=== PATIENT | male | born 1940 | race Caucasian/White ===

== ENCOUNTER 2016-08-21 17:32 | Emergency (ER) | payer MEDICARE ==
[~2016-08-21] VITALS: Ht 177.8 cm; Wt 81.8 kg
[2016-08-21 17:38] VITALS: Ht 177.8 cm; Wt 81.8 kg
[2016-08-21] MEDS ORDERED: KETOROLAC 30 MG INJ IM STA (18:42)
[2016-08-21] MEDS ORDERED: TRAM50TA2 PO (18:44)
--- NOTE | 2016-08-21 18:51 | ERD ---
ER Documentation Chief Complaint Date/Time DATE: 08/21/16 TIME: 18:45 Chief Complaint BROUGHT IN VIA EMS DUE TO FALL THREE WEEKS AGO WITH DECREASED ROM HPI 76-year-old man brought in by EMS from dialysis center for having complaints of back pain and difficulty getting out of the dialysis chair at around closing time. Patient fell backwards about 2 weeks ago and suffered a nondisplaced fracture of 1 of the lumbar spine, diagnosis was made by CT scans and MRIs of the back 2 weeks ago. Patient is using [facility] his boarding care facility for pain control. Patient underwent his full dialysis today. Patient has complaints of back pain worse with movement, denies fevers or chills, denies paresis or paresthesias. ROS All systems reviewed and are negative except as per history of present illness. Medications Home Meds Active Scripts Tramadol HCl (Tramadol HCl) 50 Mg Tablet, 25 MG PO Q6 Y for PAIN, #20 TAB Prov:DULCE LANTIGUA MD 08/21/16 PMhx/Soc Hip replacement surgery bilaterally, lumbar spine surgery, recent lumbar spine fracture, chronic bilateral lower extremity paresis and mostly wheelchair-bound , end-stage kidney disease hemodialysis dependent, hypertension Hx Alcohol Use: No Hx Substance Use: No Hx Tobacco Use: No Smoking Status: Never smoker FmHx Family History: No diabetes Physical Exam Vitals Vital Signs Date Time Temp Pulse Resp B/P Pulse Ox O2 Delivery O2 Flow Rate FiO2 08/21/16 17:38 98.5 88 18 116/78 97 Physical Exam GENERAL: Well-developed, well-nourished, well-hydrated, in no apparent distress , looks nontoxic in appearance HEENT: Moist mucous membranes, pink conjunctiva, no cervical spine tenderness or step-off deformities, no goiter, no jaundice or icterus, extraocular movements intact without pain. No submandibular induration, and no pharyngeal erythema NEURO: Alert and oriented 3, cranial nerves II through XII intact bilaterally, pupils equal round reactive to light, no focal deficits or facial asymmetry, sensation intact distally bilateral lower extremity paresis consistent with history CARDIAC: Regular rate and rhythm, no murmurs rubs or gallops LUNGS: Clear bilaterally no wheezing crackles or stridor ABDOMEN: Soft nontender, no guarding, no rigidity, no rebound, no psoas sign no obturator sign. Normoactive bowel sounds SKIN: Warm and dry to touch, no abrasions, contusions, or hematomas, no lacerations, no ecchymosis, no target lesions, and without ulcers EXTREMITIES: No clubbing cyanosis or edema, calves are bilaterally symmetrical, no Homans sign, no popliteal cord sign. Distal pulses equal and bilateral, no midline back abrasions contusions or hematomas noted PSYCH: Normal affect without agitation or irritability Results 24 hrs Current Medications Medications (Trade) Dose Ordered Sig/Michael Route PRN Reason Start Time Stop Time Status Last Admin Dose Admin Ketorolac Tromethamine (Toradol) 30 mg ONCE STAT IM 08/21/16 18:42 08/21/16 18:43 DC Oxycodone/ Acetaminophen (Percocet (5/ 325)) 1 tab ONCE ONCE PO 08/21/16 19:00 08/21/16 19:01 Procedures/MDM I administered Toradol 30 mg intramuscular injection and Percocet 1 tablet p.o. Patient feels much better after analgesics were administered and I recommended he continue rehabilitation at his facility and continued follow-up with his PMD and orthopedic surgeon. I have no indication at this time for any further intervention, imaging, or analgesics. Differential diagnoses considered, included but not limited to acute coronary syndrome, pulmonary embolism, aortic dissection, abdominal aortic aneurysm, sepsis, stroke, meningitis, encephalitis, pneumonia, appendicitis, cholecystitis , bowel obstruction, pyelonephritis, nephrolithiasis, cystitis, as well as metabolic, hematologic, and electrolyte abnormalities. As well as abscess, cellulitis, fractures, and dislocations. Patient feels much better at this time, and vital signs are normal, symptoms have improved. I did give strict instructions to return to the ED if symptoms continue or worsen, patient will otherwise follow-up with primary care physician. Patient understood instructions and agreed to plan. Departure Diagnosis: Primary Impression: Acute exacerbation of chronic low back pain Additional Impression: End stage kidney disease Condition: Good Patient Instructions: Causes of Lumbar (Low Back) Pain, Back Pain (Acute Or Chronic) DULCE LANTIGUA MD Aug 21, 2016 18:51
[2016-08-21] MEDS ORDERED: OXYCODONE/ACETAMINOPHEN (5/325) TAB PO ONE (19:00)
[2016-08-21] MEDS ORDERED: LANT3I SC (19:27)
[2016-08-21] MEDS ORDERED: INSU100C SQ (19:30)
[2016-08-21] MEDS ORDERED: FOLI-49 PO (19:35)
[2016-08-21] MEDS ORDERED: ATOR20TA38 PO (19:35)
[2016-08-21] MEDS ORDERED: AMIT75TA2 PO (19:36)
[2016-08-21] MEDS ORDERED: LEVO50TA83 PO (19:37)
[2016-08-21] MEDS ORDERED: FURO40TA4 PO (19:40)
[2016-08-21] MEDS ORDERED: PROP40TA4 PO (19:40)
[2016-08-21 19:41] VITALS: BP 123/56; PULSE 87; RESP 20; TEMP 98.3
[2016-08-21] MEDS ORDERED: ASPI-664 PO (19:41)
== END 2016-08-21 20:06 | disposition home or self-care (01) ==
LOC: E/R 17:32
DX: M54.5 Low back pain (principal); I12.0 Hypertensive chronic kidney disease with stage 5 chronic kidney disease or end stage renal disease; N18.6 End stage renal disease; Z99.2 Dependence on renal dialysis; Z96.643 Presence of artificial hip joint, bilateral
CPT/HCPCS: 96372; 99284; J1885

== ENCOUNTER 2016-08-22 10:06 | Observation (INO) | payer MEDICARE ==
[~2016-08-22] VITALS: Ht 175.3 cm; Wt 81.0 kg
[~2016-08-22 10:06] MED LIST: AMIT75TA2 PO; ASPI-664 PO; ATOR20TA38 PO; FOLI-49 PO; FURO40TA4 PO; INSU100C SQ; LANT3I SC; LEVO50TA83 PO; PROP40TA4 PO; TRAM50TA2 PO
[2016-08-22] MEDS ORDERED: ONDANSETRON 4 MG INJ IV STA (10:16)
[2016-08-22] MEDS ORDERED: morphine 4 MG/ML VIAL IV STA (10:16)
[2016-08-22] MEDS ORDERED: PANTOPRAZOLE IV 80 MG in SOD CHLORIDE 0.9% 100 ML IVPB STA (10:16)
[2016-08-22] MEDS ORDERED: SOD CHLORIDE 0.9% 1,000 ML IV STA (10:16)
[2016-08-22 10:49] LABS: ADD SCAN DIFF NO
[2016-08-22 10:55] LABS: BASOPHIL # 0.2 10^3/ul (0.0-0.1); EOSINOPHILS # 0.9 10^3/ul (0.0-0.5); HEMATOCRIT 38.6 % (42.0-52.0); HEMOGLOBIN 12.5 g/dl (14.0-18.0); LYMPHOCYTES # 1.3 10^3/ul (0.8-2.9); LYMPHOCYTES % 7.1 % (15.0-51.0); MEAN CORPUSCULAR HGB CONC 32.4 g/dl (32.0-37.0); MEAN CORPUSCULAR VOLUME 104.9 fl (82.0-101.0); MEAN PLATELET VOLUME 12.2 fl (7.4-10.4); MONOCYTE # 1.2 10^3/ul (0.3-0.9); MONOCYTES % 6.8 % (0.0-11.0); NEUTROPHIL # 14.4 10^3/ul (1.6-7.5); NEUTROPHILS % 79.6 % (39.0-77.0); PLATELET COUNT 331 10^3/UL (140-415); RED BLOOD COUNT 3.68 10^6/ul (4.70-6.10); RED CELL DISTRIBUTION WIDTH 16.4 % (11.5-14.5); WHITE BLOOD COUNT 18.1 10^3/ul (4.8-10.8)
--- NOTE | 2016-08-22 11:29 | RADRPT ---
PROCEDURE: CT Abdomen and Pelvis without contrast. CLINICAL INDICATION: Abdominal and pelvic pain. Vomiting. TECHNIQUE: CT scan of the abdomen and pelvis without contrast was performed. Coronal and sagittal reformatted images were obtained from the axial source images. Images were reviewed on a high-resolu [employer] PACS workstation. Total exam DLP is 732.75 mGy-cm. CTDIvol is 12.03 mGy. One or more of the f ollowing dose reduction techniques were used: Automated exposure control, adjustment of the mA and/o r kV according to patient size, use of iterative reconstruction technique. COMPARISON: None. FINDINGS: There is a small right pleural effusion with fluid in the major fissure posteriorly. There is mild atelectasis at the right lung base. The lung bases are otherwise normal. There is no pericardial e ffusion. The heart size is normal. There is coronary artery calcification. The liver is normal in size and attenuation. There is no focal hepatic lesion. The gallbladder is surgically absent with clips noted in the gallbladder bed. The bile ducts are no rmal. The spleen is normal in size. There is no focal splenic lesion. Both adrenals are normal with no enlargement or mass. The pancreas is unremarkable with no mass or evidence of pancreatitis. There is no solid renal mass, hydronephrosis, or calculus. There is a benign cyst in the mid left k idney measuring 1.7 cm. There is no ureteral calculus on either side. The abdominal aorta is not dilated. There is calcification in the aorta consistent with atheroscler osis. There is no retroperitoneal lymphadenopathy or mass. There is no pelvic lymphadenopathy or mass. There is diffuse irregular bladder wall thickening. The bladder is otherwise unremarkable. The periappendiceal region is unremarkable with no evidence of appendicitis. The bowel and mesentery are normal. There is no free fluid or free gas. There are degenerative changes of the spine. There is a left hip total arthroplasty. There is no f racture or lytic lesion. IMPRESSION: 1. Small right pleural effusion with fluid in the major fissure posteriorly. 2. Right basilar atelectasis. 3. Coronary artery calcification. 4. Status post cholecystectomy. 5. Benign left renal cyst. 6. Atherosclerosis. 7. Diffuse irregular bladder wall thickening. Clinical correlation advised. Correlation with cyst oscopy should be considered. 8. Degenerative changes of the spine. 9. Left hip total arthroplasty. 10. Otherwise unremarkable study. RPTAT: QQ .Rachid Keith MD, MD Date Time Electronically viewed and signed by .Rachid Keith MD, MD on 08/22/2016 11:29 .R/
[2016-08-22 12:22] LABS: ALBUMIN 3.5 g/dl (3.3-4.9)
[2016-08-22 12:24] LABS: INR 1.03; PROTIME 13.5 Sec (12.2-14.2); PT RATIO 1.1
[2016-08-22 12:25] LABS: ALBUMIN/GLOBULIN RATIO 1.06; BILIRUBIN,INDIRECT 0.4 mg/dl (0-1.1); BILIRUBIN,TOTAL 0.4 mg/dl (0.2-1.3); CREATININE 6.74 mg/dl (0.61-1.24); PARTIAL THROMBOPLASTIN TIME 25.9 Sec (25.0-35.0); TOTAL PROTEIN 6.8 g/dl (6.1-8.1)
[2016-08-22 12:26] LABS: CALCIUM 8.6 mg/dl (8.4-10.2)
[2016-08-22 12:37] LABS: TROPONIN-I 0.013 ng/ml (0.00-0.12)
[2016-08-22] MEDS ORDERED: INSULIN LISPRO 100 UNIT/ML VIAL SC STA (12:52)
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
[2016-08-22] MEDS ORDERED: ACETAMINOPHEN 325 MG TAB PO PRN (13:30)
[2016-08-22] MEDS ORDERED: ONDANSETRON 4 MG INJ IV PRN (13:30)
[2016-08-22] MEDS ORDERED: GLUCOSE GEL 15 GRAM TUBE BUCCAL PRN (16:30)
[2016-08-22] MEDS ORDERED: GLUCOSE GEL 15 GRAM TUBE PO PRN ×2 (16:30)
[2016-08-22] MEDS ORDERED: traMADol 50 MG TAB PO PRN (16:30)
[2016-08-22] MEDS ORDERED: GLUCAGON 1 MG INJ IM PRN (16:30)
[2016-08-22] MEDS ORDERED: DEXTROSE 50% 50 ML SYRINGE IV PRN ×2 (16:30)
[2016-08-22 17:44] VITALS: TEMP 98.1
[2016-08-22] MEDS: INSULIN ASPART [NOVOLOG] 3 ML PEN SC SCH ×3 (18:05→20:51)
[2016-08-22 18:10] VITALS: BP 110/69; PULSE 96; RESP 18
--- NOTE | 2016-08-22 19:16 | CONS ---
DATE OF ADMISSION: 08/22/2016 DATE OF CONSULTATION: 08/22/2016 TYPE OF CONSULTATION: Nephrology. REFERRING PHYSICIAN: Dr. Perez. REASON FOR CONSULTATION: End-stage renal disease on hemodialysis, presented with hematemesis. HISTORY OF PRESENT ILLNESS: This is a 76-year-old male with a past medical history of hypertension, end-stage renal disease on hemodialysis, history of previous back surgery and right hip replacement . The patient was brought into the [facility] Emergency Room with a complaint of nausea, vomiting. The patient had dialysis done yesterday. He presented with a vomiting associated with some blood. He was brought in by ambulance. The patient came from [facility]. Code status is DO NOT RESUSCITATE. Regular schedule for dialysis is Sunday, Sunday, Sunday. Patient gets admitted to the med/surg floor where he is hemodynamically stable. Potassium has been 5, BUN 5 7, creatinine 6.47, and glucose has been in 200 to 300. Alkaline phosphatase was 463. The patient had stable blood pressure, with saturation around 98% on room air. Renal has been consulted for [facility] hemodialysis. REVIEW OF SYSTEMS: Positive for nausea, vomiting, and possible blood in vomiting. Other 12-point r eview of systems has been obtained and is negative except what is mentioned in the history of presen t illness. PAST MEDICAL HISTORY: Hypertension, end-stage renal disease on hemodialysis. PAST SURGICAL HISTORY: History of back surgery x2, partial hip replacement right side. SOCIAL HISTORY: No smoking, alcohol, or recreational drug use. Patient came from [facility]. FAMILY HISTORY: Not available. PHYSICAL EXAMINATION: VITAL SIGNS: Temperature 97.9, heart rate is 96, respiration 18, blood pressure 110/69, saturation is 94 to 99% room air. GENERAL: Awake, alert, in no acute distress. HEENT: Normal. Oropharynx clear. NECK: Supple, no JVD, no lymphadenopathy. LUNGS: Clear to auscultation. No crackles, no wheezes. HEART: S1, S2, rate regular, rhythm, no murmur. ABDOMEN: Soft, nontender, nondistended. Bowel sounds are present. EXTREMITIES: No clubbing, cyanosis, or edema. NEUROLOGICAL: Nonfocal, intact. PSYCHIATRIC: Appropriate affect and mood. LABORATORY DATA/DIAGNOSTIC IMAGING: Sodium 139, potassium 5, chloride 93, bicarbonate 29, BUN 57, c reatinine 6.7, glucose 353, calcium 8.6. LFTs are normal. ALT 75, AST 34, alkaline phosphatase 463 , total protein 6.8, albumin 3.5, globulin 3.3. Prothrombin time 13.5, PTT 25.9, INR 1.03. WBC 18. 1, hemoglobin 12.5, platelet count 331. CT abdomen and pelvis without contrast done in the emergency room shows a small right pleural effusi on, right basilar atelectasis, coronary artery calcification, status post cholecystectomy, benign le ft renal cyst, atherosclerosis, irregular bladder wall thickening, degenerative changes of the spine , left hip total arthroplasty, otherwise unremarkable study. IMPRESSION: This is a 76-year-old male who is getting admitted for hematemesis, and renal has been consulted for maintenance hemodialysis in chronic dialysis patient. 1. Hematemesis, possible upper gastrointestinal bleeding versus other etiology. 2. End-stage renal disease on hemodialysis Sunday, Sunday, Sunday. 3. History of hypertension. 4. History of a left hip hemiarthroplasty. 5. History of previous back surgery and hip replacement. 6. Coronary artery atherosclerosis. 7. Simple left benign renal cyst. PLAN: Thank you, Dr. Perez, for this consultation. The patient was seen in the emergency room. 1. He gets admitted to the med/surg floor. Patient's code status is DO NOT RESUSCITATE. 2. Protonix drip has been started for possible upper gastrointestinal bleeding. 4. The patient's electrolyte has been stable at this point. Potassium is 5. The patient is on [place] ix 40 mg p.o. daily. Other medications already done as per medical reconciliation. I will arrange the patient's hemodialysis to be done tomorrow morning. Patient is currently seen in the med/surg emergency room. He will be getting admitted to the med/surg floor. He is currently h emodynamically stable. Potassium is 5, so will continue to follow this patient along with his cours e in the hospital. Patient currently will be admitted to the med/surg floor. Dictated By: MIKEY DECKER MD, KP/REBECCA Conf#: [id number] DID#: [id number]
[2016-08-22 20:05] VITALS: BP 123/90; RESP 18
[2016-08-22] MEDS: INSULIN GLARGINE [LANtus] 3 ML PEN SC SCH ×2 (20:49→21:00)
--- NOTE | 2016-08-22 21:51 | HP ---
DATE OF ADMISSION: 08/22/2016 PRESENTING COMPLAINT: Hematemesis. HISTORY OF PRESENTING COMPLAINT: Mr. Buck is a 76-year-old male who [facility] who was sent to us because of complaints of vomiting blood. Symptoms were said to have started today. The patient is not able to give me much in the way of history. Review of his home medication does not reveal that he is on any blood thinner medicine. The patient seems to have a history of chronic alcohol abuse in the past, as on his lab values and just general assessment, but I am unable to confirm or deny this with the patient. At this time, ____ him. There have been no other vomiting episodes as far as I am aware in the hospital and hematemesis was all reported and has not been visualized while he is here. REVIEW OF SYSTEMS: I attempted a 12-point review of systems, but essentially my findings essentially as noted in the HPI. PAST MEDICAL HISTORY: Positive for: 1. Diabetes mellitus type 2. 2. End-stage renal disease on hemodialysis. 3. Hypothyroidism. 4. Depression. 5. Dyslipidemia. 6. Chronic anemia. 7. High blood pressure. 8. Probable chronic liver disease with probable portal hypertension based on patient's medications, which might be alcohol related. PAST SURGICAL HISTORY: Per chart, is positive for cholecystectomy and left hip replacement as well as back surgery x2. ALLERGIES: THE PATIENT IS ALLERGIC TO HYDROMORPHONE. FAMILY HISTORY: Unobtainable. REVIEW OF SYSTEMS: As I mentioned above. HOME MEDICATIONS: 1. Aspirin. 2. Lasix. 3. Propranolol. 4. Levothyroxine. 5. Amitriptyline. 6. Atorvastatin. 7. Folic acid. 8. Lantus. 9. Timolol. PHYSICAL EXAMINATION: VITAL SIGNS: Temperature 97.9, pulse 90, respirations 16, blood pressure 134/72 , saturations 98% on room air. GENERAL: The patient is alert. Orientation is questionable. Knows his name and knows his birthday. HEENT: Head normocephalic. Mouth mild jaundice. Mucous membranes slightly dry. Posterior pharynx negative for exudate. NECK: Supple. CHEST: Clear to auscultation with reduced breath sounds. CARDIOVASCULAR: Heart sounds 1 and 2. Probable II/ systolic murmur. ABDOMEN: Soft, nontender. Normoactive bowel sounds. LOWER EXTREMITIES: Negative for edema. NEUROLOGIC: Without focal gross deficit. SKIN: Negative for rash or jaundice. LABORATORY DATA: He has a leukocytosis of 18,000. His hemoglobin is low, but stable, at 12.5 and platelet count normal. He does have a neutrophilia of 79% and he has macrocytosis with hypochromasia. On his chemistry, BUN and creatinine are elevated consistent with his history of endstage renal disease on hemodialysis. His blood sugar level is 353, suggesting of uncontrolled diabetes. His chloride level is mildly elevated at 93. ALT 79, which more than double. AST which 34, and his alkaline phosphatase is 463. IMAGING: He had an EKG that was concerning for a second degree AV block with a rate of 85 and a prolonged QTC of 580. A CT of the abdomen and pelvis that showed a small right pleural effusion with fluid in the middle fissure posteriorly. Right basal atelectasis. Benign left renal cyst. Atherosclerosis. Irregular bladder wall thickening, degenerative changes of the spine , and left hip total arthroplasty. IMPRESSION: A 76-year-old male [facility] because of Hematemesis managed as follows: 1. Hematemesis. 2. Reactive leukocytosis. 3. Chronic anemia or anemia of chronic kidney disease superimposed on probable mild blood loss. 4. Uncontrolled diabetes mellitus. 5. Rule out a right-sided basal pneumonia based on CT findings. 6. High pressure with good control. 7. Dyslipidemia 8. Endstage renal disease on hemodialysis. 9. Hypothyroidism. 10. Chronic depression. 11. Do not resuscitate. 12. Probable history of alcoholism with evidence of probable mild chronic liver disease as well as on propranolol PLAN: At this point is to admit patient for GI evaluation and review. The patient will be kept n.p.o. except for medications only. I see no current indication for blood transfusion at this point. The patient will be closely monitored for that. I will obtain blood cultures because of his leukocytosis, but no antibiotic therapy is indicated at this time. Nephrology consultation will be obtained because of the patient for inhouse dialysis and will be started sliding scale Insulin. Also Continue him on his home Lantus when on a diet, monitor blood sugar control and titrate his regimen as indicated. For prophylaxis, he will be on SCDs as well as intravenous PPI. Further interventions will depend on his clinical findings. Admission time was more than 50 minutes. I will speak with nephrology as well as gastroenterology doctors and follow their recommendations. Dictated By: ADELINE VIVAR MD BA/NTS Conf#: [id number] DID#: [id number] CC: MARCOS KIM MD;*EndCC* MTDD
[2016-08-22] MEDS: AMITRIPTYLINE 25 MG TAB PO SCH (22:11)
[2016-08-22 22:48] VITALS: Ht 175.3 cm; Wt 81.0 kg
[2016-08-23] VITALS (17 sets, daily range): BP systolic 69–144; BP diastolic 44–67; PULSE 73–106; RESP 16–22
[2016-08-23] MEDS: LEVOTHYROXINE 50 MCG TAB PO SCH (06:31)
[2016-08-23] MEDS: INSULIN ASPART [NOVOLOG] 3 ML PEN SC SCH ×4 (07:40→22:00)
[2016-08-23] MEDS: FOLIC ACID 1 MG TAB PO SCH (08:26)
[2016-08-23] MEDS: ASPIRIN (EC) 81 MG TAB PO SCH (08:27)
[2016-08-23] MEDS: FUROSEMIDE 40 MG TAB PO SCH (08:27)
[2016-08-23 09:33] LABS: ADD SCAN DIFF NO
[2016-08-23 09:55] LABS: INR 1.03; PROTIME 13.5 Sec (12.2-14.2); PT RATIO 1.1
[2016-08-23 09:56] LABS: PARTIAL THROMBOPLASTIN TIME 36.6 Sec (25.0-35.0)
[2016-08-23 09:57] LABS: ALBUMIN 3.2 g/dl (3.3-4.9); CHLORIDE 91 mmol/L (97-110); SODIUM 134 mmol/L (135-144)
[2016-08-23 09:58] LABS: POTASSIUM 5.5 mmol/L (3.5-5.1)
[2016-08-23 10:00] LABS: ALANINE AMINOTRANSFERASE 58 IU/L (13-69); ALBUMIN/GLOBULIN RATIO 1.03; ALKALINE PHOSPHATASE 384 IU/L (42-121); ANION GAP 21 (8-16); ASPARTATE AMINO TRANSFERASE 30 IU/L (15-46); BILIRUBIN,INDIRECT 0.2 mg/dl (0-1.1); BILIRUBIN,TOTAL 0.2 mg/dl (0.2-1.3); BLOOD UREA NITROGEN 66 mg/dl (7-20); CALCIUM 8.3 mg/dl (8.4-10.2); CARBON DIOXIDE 28 mmol/L (21-31); CREATININE 8.22 mg/dl (0.61-1.24); GLUCOSE 269 mg/dl (70-220); TOTAL PROTEIN 6.3 g/dl (6.1-8.1)
[2016-08-23 10:01] LABS: MAGNESIUM 1.8 mg/dl (1.7-2.5)
[2016-08-23 10:02] LABS: IRON 32 ug/dl (35-150)
[2016-08-23 10:12] LABS: ABNORMAL IP MESSAGE 1; BASOPHIL # 0.1 10^3/ul (0.0-0.1); BASOPHILS % 0.5 % (0.0-2.0); EOSINOPHILS # 1.4 10^3/ul (0.0-0.5); EOSINOPHILS % 6.2 % (0.0-7.0); HEMATOCRIT 32.7 % (42.0-52.0); HEMOGLOBIN 10.3 g/dl (14.0-18.0); LYMPHOCYTES # 1.9 10^3/ul (0.8-2.9); LYMPHOCYTES % 8.2 % (15.0-51.0); MEAN CORPUSCULAR HEMOGLOBIN 33.6 pg (29.0-33.0); MEAN CORPUSCULAR HGB CONC 31.5 g/dl (32.0-37.0); MEAN CORPUSCULAR VOLUME 106.5 fl (82.0-101.0); MEAN PLATELET VOLUME 11.7 fl (7.4-10.4); MONOCYTE # 1.7 10^3/ul (0.3-0.9); MONOCYTES % 7.4 % (0.0-11.0); NEUTROPHIL # 17.5 10^3/ul (1.6-7.5); NEUTROPHILS % 77.2 % (39.0-77.0); PLATELET COUNT 267 10^3/UL (140-415); RED BLOOD COUNT 3.07 10^6/ul (4.70-6.10); RED CELL DISTRIBUTION WIDTH 16.3 % (11.5-14.5); TOTAL IRON BINDING CAPACITY 226 ug/dl (241-421); WHITE BLOOD COUNT 22.7 10^3/ul (4.8-10.8)
[2016-08-23 11:26] LABS: CHOLESTEROL 86 mg/dl (100-200)
[2016-08-23 11:27] LABS: CHOL/HDL RATIO 3.1 RATIO; HDL CHOLESTEROL 27 mg/dl (31-75); TRIGLYCERIDES 151 mg/dl (0-149)
--- NOTE | 2016-08-23 11:27 | RADRPT ---
Echocardiogram Report Patient Name: ARTHUR LIMA Gender: Male Date: 1940 Study Date: 23-Aug-2016 Concierge Receptionist: JIMENEZ [facility] Location: 2260 Ref. Physician: ADELINE VIVAR Quality: Technically Difficult Study Procedures: Transthoracic echocardiogram with complete 2D, M-Mode, and doppler examination. Indications: Prolonged QT. 2D/M Mode Doppler Measurement Value Normal Ranges Measurement Value Normal Ranges LVIDd 2D 4.1 3.5 - 5.6 cm AV Peak Deyvi 1.0 m/sec LVIDs 2D 3.4 2.1 - 4.1 cm AV Peak PG 4.3 mmHg LVPWd 2D 1.3 0.6 - 1.1 cm LVOT Peak Deyiv 0.7 m/sec IVSd 2D 1.4 0.6 - 1.1 cm LVOT Peak PG 1.8 mmHg AoR Diam 2D 2.5 2.0 - 3.7 cm MV E Peak Deyvi 1.0 m/sec EDV 2D 75.6 cm3 MV A Peak Deyvi 0.5 m/sec ESV 2D 37.6 cm3 MV E/A 2.2 MV Decel Time 99 msec MV Decel [place] 10 MV E/A 2.2 Findings Left Ventricle: Normal left ventricular systolic function. Normal left ventricular cavity size. Mild concentric left ventricular hypertrophy. Ejection fraction is visually estimated at 60 %. Right Ventricle: Not well visualized. Left Atrium: The left atrium is normal in size. Right Atrium: Not well visualized. Mitral Valve: Mild mitral leaflet calcification. Mild mitral annular calcification. Trace mitral regurgitation. Aortic Valve: Aortic sclerosis without stenosis. Tricuspid Valve: Tricuspid valve not well visualized. Unable to obtain RVSP due to minimal presence of tricuspid regurgitation. There is trace tricuspid regurgitation. Pericardium: Normal pericardium with no significant pericardial effusion. Aorta: Normal aortic root. IVC: Normal size and normal respiratory collapse consistent with normal right atrial pressure. Conclusions 1.Technically difficult study with poor acoustic windows and poor endocardial visualization. 2.Normal left ventricular systolic function. Normal left ventricular cavity size. Mild concentric left ventricular hypertrophy. Ejection fraction is visually estimated at 60 %. 3.No significant valvular stenosis or regurgitation seen. 4.Unable to obtain RVSP due to minimal presence of tricuspid regurgitation. RA pressure is 3 mmHg. Electronically Signed By: Lorenzo Murray 23-Aug-2016 11:26:43 -0800 Patient Name: ARTHUR LIMA Study Date: 23-Aug-[id number]
[2016-08-23 11:59] LABS: THYROID STIMULATING HORMONE 0.927 MIU/L (0.465-4.680)
[2016-08-23 12:39] LABS: FOLATE > 20.0 ng/ml (2.8-20.0)
[2016-08-23] MEDS: CEFTRIAXONE 1 GM/50 ML (PMX) 50 ML IVPB SCH (15:42)
--- NOTE | 2016-08-23 16:07 | RADRPT ---
PROCEDURE: XR Chest AP portable CLINICAL INDICATION: Possible pneumonia TECHNIQUE: An AP portable radiograph of the chest was submitted. COMPARISON: None. FINDINGS: Support Hardware: None Cardiovascular: The cardiovascular silhouette appears unremarkable except for atherosclerotic change involving the aorta. Lung Burroughs: Discoid atelectasis is seen at the right lung base. Pleural Spaces: There is slight soft tissue density seen along the right inferior lateral chest wall that could represent pleural thickening or possibly loculated pleural fluid accumulation. No pneum othorax is evident. Osseous Structures: Degenerative spine changes are noted along with degenerative change seen about t he left glenohumeral joint. Soft Tissues: The soft tissues appear unremarkable. IMPRESSION: 1. Atherosclerotic aorta 2. Discoid atelectasis seen at the right lung base with either mild right inferolateral pleural thi ckening or loculated fluid. 3. Degenerative osseous changes. Physician Flori Date Time Electronically viewed and signed by Physician Flori on 08/23/2016 16:06 /
[2016-08-23] MEDS ORDERED: INSULIN GLARGINE [LANtus] 3 ML PEN SC ONE (17:00)
[2016-08-23] MEDS ORDERED: PROPOFOL 20 ML ONE (18:46)
[2016-08-23] MEDS ORDERED: MIDAZOLAM 1 MG/ML 2 ML INJ IV PRN (19:30)
[2016-08-23] MEDS ORDERED: FENTAnyl 50 MCG/ML VIAL IV PRN (19:30)
[2016-08-23] MEDS ORDERED: MEPERIDINE 25 MG INJ IV PRN (19:30)
[2016-08-23] MEDS ORDERED: METOCLOPRAMIDE 10 MG INJ IV PRN (19:30)
[2016-08-23] MEDS ORDERED: DIPHENHYDRAMINE 50 MG INJ IV PRN (19:30)
[2016-08-23] MEDS ORDERED: ONDANSETRON 4 MG INJ IV PRN (19:30)
--- NOTE | 2016-08-23 20:44 | GILP ---
DATE OF PROCEDURE: NAME OF PROCEDURE: Esophagogastroduodenoscopy with biopsies. SURGEON: Gabriel Cruz MD. HISTORY AND INDICATIONS: The patient is being evaluated for hematemesis. PREMEDICATION: Monitored anesthesia care by anesthesiologist. INSTRUMENT USED: Olympus panendoscope. TECHNIQUE: After informed consent, with the patient/relatives understanding the procedure, its indic ations, potential risks, and complications, including but not limited to: allergic reaction, bleedin g, perforation or infection, and after all pertinent questions were answered to the patient's satisf action, the patient/relatives signed witnessed informed consent. Following this, premedication was administered slowly IV push under careful cardiovascular and respi ratory monitoring with pulse oximetry, automatic blood pressure and phototypesetting equipment monitor. Once the sedative effect was achieved the patient was place in the left lateral decubitus, the panen doscope was introduced and advanced under visual control. Careful examination of the upper gastrointestinal tract, both on insertion as well as withdrawal of the instrument disclosed the following findings: ESOPHAGUS: The entire esophagus shows significant ulceration. There appears to be a whitish exudate suggestive of or raising the possibility of Juanita infection. Biopsies were obtained in limited fashion. STOMACH: Upon entrance to the stomach, air was insufflated, the gastric garza distended normally. T here is erythema and edema of the mucosa of a moderate degree. Biopsies were obtained to rule out H . pylori infection. PYLORUS: The pylorus appears patent and within normal limits, with no evidence of gastric outlet ob struction. DUODENUM: The duodenal bulb shows significant erythema and edema of the mucosa. The second portion of the duodenum was unremarkable. The instrument was then withdrawn, the patient tolerated the procedure well and was transfer out of the endoscopy suite awake, and in good condition to continue recovery under observation IMPRESSION: 1. Severe ulcerated esophagitis. 2. Rule out Juanita esophagitis. Biopsies obtained. 3. Gastritis, moderate. Rule out Helicobacter pylori infection, biopsies obtained. 4. Severe duodenitis. PLAN: 1. The patient will be treated with PPI b.i.d. 2. Carafate liquid q.i.d. 3. Diflucan 100 mg daily x5 days. 4. Pathology will be reviewed as soon as available. 5. Further recommendation will depend on patient's clinical course as well as review of biopsies. Dictated By: GABRIEL CRUZ MS/REBECCA Conf#: [id number] DID#: [id number] CC: MARCOS KIM MD; GABRIEL CRUZ;*[facility]*
[2016-08-23] MEDS ORDERED: INSULIN GLARGINE [LANtus] 3 ML PEN SC SCH (21:00)
--- NOTE | 2016-08-23 21:13 | CONS ---
Date/Time of Note Date/Time of Note DATE: 08/23/16 TIME: 21:11 Assessment/Plan Assessment/Plan Additional Assessment/Plan 1. Hematemesis, possible upper gastrointestinal bleeding versus other etiology. 2. End-stage renal disease on hemodialysis Sunday, Sunday, Sunday. 3. History of hypertension. 4. History of a left hip hemiarthroplasty. 5. History of previous back surgery and hip replacement. 6. Coronary artery atherosclerosis. 7. Simple left benign renal cyst. PLAN: S/p HD today BP stable now EGD per GI today will continue HD sunday ,sunday and Sunday Consultation Date/Type/Reason Admit Date/Time Aug 22, 2016 at 14:11 Initial Consult Date August Type of Consultation: NEPHROLOGY Reason for Consultation ESRD on HD with hematemesis Referring Provider: ADELINE VIVAR 24 HR Interval Summary Free Text/Dictation S/p HD today AM Exam/Review of Systems Vital Signs Vitals Vital Signs Date Time Temp Pulse Resp B/P Pulse Ox O2 Delivery O2 Flow Rate FiO2 08/23/16 20:24 96 21 98/54 95 Room Air 08/23/16 19:44 97.6 Intake and Output 08/22/16 08/22/16 08/23/16 14:59 22:59 06:59 Intake Total 1100 ml 300 ml Balance 1100 ml 300 ml Exam GENERAL: Awake, alert, in no acute distress. HEENT: Normal. Oropharynx clear. NECK: Supple, no JVD, no lymphadenopathy. LUNGS: Clear to auscultation. No crackles, no wheezes. HEART: S1, S2, rate regular, rhythm, no murmur. ABDOMEN: Soft, nontender, nondistended. Bowel sounds are present. EXTREMITIES: No clubbing, cyanosis, or edema. NEUROLOGICAL: Nonfocal, intact. PSYCHIATRIC: Appropriate affect and mood. Results Result Diagram: 08/23/16 0640 08/23/16 0640 Results 24 hrs Laboratory Tests Test 08/23/16 02:26 08/23/16 02:46 08/23/16 03:06 08/23/16 03:19 Bedside Glucose 60 L 79 100 135 Test 08/23/16 05:05 08/23/16 06:40 08/23/16 07:20 08/23/16 11:46 Hemoglobin A1c 7.5 H Activated Partial Thromboplast Time 36.6 H Alanine Aminotransferase (ALT/SGPT) 58 Albumin 3.2 L Albumin/Globulin Ratio 1.03 Alkaline Phosphatase 384 H Anion Gap 21 H Aspartate Amino Transf (AST/SGOT) 30 Basophils # 0.1 Basophils % 0.5 Blood Urea Nitrogen 66 H Calcium Level 8.3 L Carbon Dioxide Level 28 Chloride Level 91 L Cholesterol Level 86 L Cholesterol/HDL Ratio 3.1 Creatinine 8.22 H Direct Bilirubin 0.00 Eosinophils # 1.4 H Eosinophils % 6.2 Folate > 20.0 H Globulin 3.10 Glucose Level 269 H HDL Cholesterol 27 L Hematocrit 32.7 L Hemoglobin 10.3 L INR International Normalized Ratio 1.03 Indirect Bilirubin 0.2 Iron Level 32 L LDL Cholesterol, Calculated 29 Lymphocytes # 1.9 Lymphocytes % 8.2 L Magnesium Level 1.8 Mean Corpuscular Hemoglobin 33.6 H Mean Corpuscular Hemoglobin Concent 31.5 L Mean Corpuscular Volume 106.5 H Mean Platelet Volume 11.7 H Monocytes # 1.7 H Monocytes % 7.4 Neutrophils # 17.5 H Neutrophils % 77.2 H Nucleated Red Blood Cells # 0.0 Nucleated Red Blood Cells % 0.0 Percent Iron Saturation 14 L Platelet Count 267 Potassium Level 5.5 H Prothrombin Time 13.5 Prothrombin Time Ratio 1.1 Red Blood Count 3.07 L Red Cell Distribution Width 16.3 H Sodium Level 134 L Thyroid Stimulating Hormone (TSH) 0.927 Total Bilirubin 0.2 Total Iron Binding Capacity 226 L Total Protein 6.3 Triglycerides Level 151 H Vitamin B12 Level > 1000 H White Blood Count 22.7 #H Bedside Glucose 258 H 425 *H Test 08/23/16 13:56 08/23/16 16:31 08/23/16 17:34 08/23/16 17:36 Bedside Glucose 376 H 378 H 390 H 369 H Test 08/23/16 18:52 Bedside Glucose 335 H Medications Medications Current Medications Amitriptyline HCl (Elavil) 75 mg QHS PO Last administered on 08/22/16t 22:11; Admin Dose 75 MG; Start 08/22/16 at 21:00 Aspirin (Halfprin) 81 mg DAILY PO ; Start 08/23/16 at 09:00 Folic Acid (Folic Acid) 1 mg DAILY PO ; Start 08/23/16 at 09:00 Furosemide (Lasix) 40 mg DAILY PO ; Start 08/23/16 at 09:00 Tramadol HCl (Ultram) 25 mg Q6H PRN PO PAIN; Start 08/22/16 at 16:30 Miscellaneous Information 1 ea NOTE XX ; Start 08/22/16 at 16:30 Glucose (Glutose) 15 gm Q15M PRN PO DECREASED GLUCOSE; Start 08/22/16 at 16:30 Glucose (Glutose) 22.5 gm Q15M PRN PO DECREASED GLUCOSE; Start 08/22/16 at 16:30 Dextrose (D50w Syringe) 25 ml Q15M PRN IV DECREASED GLUCOSE; Start 08/22/16 at 16:30 Dextrose (D50w Syringe) 50 ml Q15M PRN IV DECREASED GLUCOSE; Start 08/22/16 at 16:30 Glucagon (Glucagen) 1 mg Q15M PRN IM DECREASED GLUCOSE; Start 08/22/16 at 16:30 Glucose 15 gm 15 gm Q15M PRN BUCCAL DECREASED GLUCOSE; Start 08/22/16 at 16:30 Ceftriaxone Sodium (Rocephin) 50 ml @ 100 mls/hr Q24H IVPB Last administered on 08/23/16t 15:42; Admin Dose 100 MLS/HR; Start 08/23/16 at 15:00 Insulin Glargine (Lantus) 50 unit QHS SC ; Start 08/23/16 at 21:00 Pantoprazole (Protonix Iv) 40 mg BID@06,18 IV ; Start 08/23/16 at 20:00 Fluconazole (Diflucan) 100 mg DAILY PO ; Start 08/23/16 at 20:00; Stop 08/27/16 at 09:01 MIKEY DECKER MD Aug 23, 2016 21:13
[2016-08-23] MEDS: PANTOPRAZOLE 40 MG INJ IV SCH (21:57)
[2016-08-23] MEDS: FLUCONAZOLE 100 MG TAB PO SCH (21:58)
[2016-08-23] MEDS: SUCRALFATE (100 MG/ML) 10ML CUP PO SCH (21:58)
[2016-08-23] MEDS: AMITRIPTYLINE 25 MG TAB PO SCH (21:58)
[2016-08-24 05:06] LABS: ADD SCAN DIFF NO
[2016-08-24 05:24] LABS: BASOPHIL # 0.1 10^3/ul (0.0-0.1); BASOPHILS % 0.5 % (0.0-2.0); EOSINOPHILS % 6.4 % (0.0-7.0); HEMATOCRIT 31.5 % (42.0-52.0); HEMOGLOBIN 9.8 g/dl (14.0-18.0); LYMPHOCYTES # 1.7 10^3/ul (0.8-2.9); MEAN CORPUSCULAR HEMOGLOBIN 33.4 pg (29.0-33.0); MEAN CORPUSCULAR HGB CONC 31.1 g/dl (32.0-37.0); MEAN CORPUSCULAR VOLUME 107.5 fl (82.0-101.0); MEAN PLATELET VOLUME 11.6 fl (7.4-10.4); MONOCYTE # 1.4 10^3/ul (0.3-0.9); MONOCYTES % 8.9 % (0.0-11.0); NEUTROPHIL # 11.1 10^3/ul (1.6-7.5); NEUTROPHILS % 72.7 % (39.0-77.0); PLATELET COUNT 251 10^3/UL (140-415); RED BLOOD COUNT 2.93 10^6/ul (4.70-6.10); RED CELL DISTRIBUTION WIDTH 16.1 % (11.5-14.5); WHITE BLOOD COUNT 15.2 10^3/ul (4.8-10.8)
[2016-08-24 05:30] LABS: ALBUMIN 3.3 g/dl (3.3-4.9); POTASSIUM 4.4 mmol/L (3.5-5.1)
[2016-08-24 05:32] LABS: BILIRUBIN,INDIRECT 0.1 mg/dl (0-1.1); BILIRUBIN,TOTAL 0.1 mg/dl (0.2-1.3); CREATININE 8.31 mg/dl (0.61-1.24)
[2016-08-24 05:33] LABS: CALCIUM 8.4 mg/dl (8.4-10.2); TOTAL PROTEIN 6.6 g/dl (6.1-8.1)
[2016-08-24] MEDS: PANTOPRAZOLE 40 MG INJ IV SCH ×2 (05:38→17:40)
[2016-08-24] MEDS: SUCRALFATE (100 MG/ML) 10ML CUP PO SCH ×3 (06:38→17:40)
[2016-08-24] MEDS: LEVOTHYROXINE 50 MCG TAB PO SCH (06:38)
[2016-08-24 07:48] VITALS: BP 136/70; RESP 18
[2016-08-24] MEDS: FUROSEMIDE 40 MG TAB PO SCH (08:56)
[2016-08-24] MEDS: FOLIC ACID 1 MG TAB PO SCH (08:56)
[2016-08-24] MEDS: FLUCONAZOLE 100 MG TAB PO SCH (08:56)
[2016-08-24] MEDS: ASPIRIN (EC) 81 MG TAB PO SCH (08:56)
[2016-08-24] MEDS: INSULIN ASPART [NOVOLOG] 3 ML PEN SC SCH ×3 (08:58→17:41)
--- NOTE | 2016-08-24 11:18 | CONS ---
Date/Time of Note Date/Time of Note DATE: 08/24/16 TIME: 11:16 Assessment/Plan Assessment/Plan Additional Assessment/Plan 1. Hematemesis, possible upper gastrointestinal bleeding versus other etiology. 2. End-stage renal disease on hemodialysis Sunday, Sunday, Sunday. 3. History of hypertension. 4. History of a left hip hemiarthroplasty. 5. History of previous back surgery and hip replacement. 6. Coronary artery atherosclerosis. 7. Simple left benign renal cyst. PLAN: HD ordered for tomorrow BP stable now s/p EGD showed Severe ulcerated esophagitis. will continue HD sunday ,sunday and Sunday Consultation Date/Type/Reason Admit Date/Time Aug 22, 2016 at 13:10 Initial Consult Date August Type of Consultation: NEPHROLOGY Reason for Consultation ESRD on HD with hematemesis Referring Provider: ADELINE VIVAR 24 HR Interval Summary Free Text/Dictation No acute, S/p EGD, plan for HD tomorrow Exam/Review of Systems Vital Signs Vitals Vital Signs Date Time Temp Pulse Resp B/P Pulse Ox O2 Delivery O2 Flow Rate FiO2 08/24/16 07:48 97.9 97 18 136/70 92 08/23/16 20:24 Room Air Intake and Output 08/23/16 08/23/16 08/24/16 15:00 23:00 07:00 Intake Total 700 ml 200 ml 180 ml Output Total 2400 ml Balance -1700 ml 200 ml 180 ml Exam GENERAL: Awake, alert, in no acute distress. HEENT: Normal. Oropharynx clear. NECK: Supple, no JVD, no lymphadenopathy. LUNGS: Clear to auscultation. No crackles, no wheezes. HEART: S1, S2, rate regular, rhythm, no murmur. ABDOMEN: Soft, nontender, nondistended. Bowel sounds are present. EXTREMITIES: No clubbing, cyanosis, or edema. NEUROLOGICAL: Nonfocal, intact. PSYCHIATRIC: Appropriate affect and mood. Results Result Diagram: 08/24/16 0451 08/24/16 0451 Results 24 hrs Laboratory Tests Test 08/23/16 11:46 08/23/16 13:56 08/23/16 16:31 08/23/16 17:34 Bedside Glucose 425 *H 376 H 378 H 390 H Test 08/23/16 17:36 08/23/16 18:52 08/23/16 21:42 08/24/16 01:06 Bedside Glucose 369 H 335 H 225 H 193 Test 08/24/16 02:40 08/24/16 04:51 08/24/16 07:40 Bedside Glucose 177 161 Alanine Aminotransferase (ALT/SGPT) 51 Albumin 3.3 Albumin/Globulin Ratio 1.00 Alkaline Phosphatase 366 H Anion Gap 17 H Aspartate Amino Transf (AST/SGOT) 19 Basophils # 0.1 Basophils % 0.5 Blood Urea Nitrogen 63 H Calcium Level 8.4 Carbon Dioxide Level 32 H Chloride Level 94 L Creatinine 8.31 H Direct Bilirubin 0.00 Eosinophils # 1.0 H Eosinophils % 6.4 Globulin 3.30 H Glucose Level 166 # Hematocrit 31.5 L Hemoglobin 9.8 L Indirect Bilirubin 0.1 Lymphocytes # 1.7 Lymphocytes % 11.0 L Mean Corpuscular Hemoglobin 33.4 H Mean Corpuscular Hemoglobin Concent 31.1 L Mean Corpuscular Volume 107.5 H Mean Platelet Volume 11.6 H Monocytes # 1.4 H Monocytes % 8.9 Neutrophils # 11.1 H Neutrophils % 72.7 Nucleated Red Blood Cells # 0.0 Nucleated Red Blood Cells % 0.0 Platelet Count 251 Potassium Level 4.4 Red Blood Count 2.93 L Red Cell Distribution Width 16.1 H Sodium Level 139 Total Bilirubin 0.1 L Total Protein 6.6 White Blood Count 15.2 #H Medications Medications Current Medications Amitriptyline HCl (Elavil) 75 mg QHS PO Last administered on 08/23/16 21:58; Admin Dose 75 MG; Start 08/22/16 at 21:00 Aspirin (Halfprin) 81 mg DAILY PO Last administered on 08/24/16 08:56; Admin Dose 81 MG; Start 08/23/16 at 09:00 Folic Acid (Folic Acid) 1 mg DAILY PO Last administered on 08/24/16 08:56; Admin Dose 1 MG; Start 08/23/16 at 09:00 Furosemide (Lasix) 40 mg DAILY PO Last administered on 08/24/16 08:56; Admin Dose 40 MG; Start 08/23/16 at 09:00 Tramadol HCl (Ultram) 25 mg Q6H PRN PO PAIN; Start 08/22/16 at 16:30 Miscellaneous Information 1 ea NOTE XX ; Start 08/22/16 at 16:30 Glucose (Glutose) 15 gm Q15M PRN PO DECREASED GLUCOSE; Start 08/22/16 at 16:30 Glucose (Glutose) 22.5 gm Q15M PRN PO DECREASED GLUCOSE; Start 08/22/16 at 16:30 Dextrose (D50w Syringe) 25 ml Q15M PRN IV DECREASED GLUCOSE; Start 08/22/16 at 16:30 Dextrose (D50w Syringe) 50 ml Q15M PRN IV DECREASED GLUCOSE; Start 08/22/16 at 16:30 Glucagon (Glucagen) 1 mg Q15M PRN IM DECREASED GLUCOSE; Start 08/22/16 at 16:30 Glucose 15 gm 15 gm Q15M PRN BUCCAL DECREASED GLUCOSE; Start 08/22/16 at 16:30 Ceftriaxone Sodium (Rocephin) 50 ml @ 100 mls/hr Q24H IVPB Last administered on 08/23/16 15:42; Admin Dose 100 MLS/HR; Start 08/23/16 at 15:00 Insulin Glargine (Lantus) 50 unit QHS SC Last administered on 08/23/16 21:59; Admin Dose 50 UNIT; Start 08/23/16 at 21:00 Pantoprazole (Protonix Iv) 40 mg BID@06,18 IV Last administered on 08/24/16 05: 38; Admin Dose 40 MG; Start 08/23/16 at 20:00 Fluconazole (Diflucan) 100 mg DAILY PO Last administered on 08/24/16 08:56; Admin Dose 100 MG; Start 08/23/16 at 20:00; Stop 08/27/16 at 09:01 MIKEY DECKER MD Aug 24, 2016 11:17
[2016-08-24 13:11] LABS: ADD UMIC YES; URINE BILIRUBIN (Dip) 1+ (NEGATIVE); URINE BLOOD (Dip) TRACE (NEGATIVE); URINE COLOR YELLOW (YELLOW); URINE KETONES (Dip) TRACE (NEGATIVE); URINE LEUKOCYTE ESTERASE (Dip) TRACE (NEGATIVE); URINE NITRITE (Dip) NEGATIVE (NEGATIVE); URINE TOTAL PROTEIN (Dip) 2+ (NEGATIVE); URINE UROBILINOGEN (Dip) 0.2 E.U./dL (0.1-1.0)
[2016-08-24 13:24] LABS: BACTERIA,URINE MANY
[2016-08-24 13:25] LABS: ICTOTEST NEGATIVE (NEGATIVE)
[2016-08-24] MEDS: CEFTRIAXONE 1 GM/50 ML (PMX) 50 ML IVPB SCH (15:30)
--- NOTE | 2016-08-24 15:38 | PN ---
Date/Time of Note Date/Time of Note DATE: 08/24/16 TIME: 15:34 Assessment/Plan VTE Prophylaxis VTE Prophylaxis Intervention: SCD's Lines/Catheters IV [facility]ter Type [facility]from [facility] Urinary Cath still in place: No Assessment/Plan Assessment/Plan 1. Hematemesis. EGD per Dr. Cruz today 2. Reactive leukocytosis. check UA 3. Chronic anemia or anemia of chronic kidney disease superimposed on probable mild blood loss. 4. Uncontrolled diabetes mellitus. adjust insulins 5. Probable history of alcoholism with evidence of probable mild chronic liver disease as well as on propranolol 6. High pressure with good control. 7. Dyslipidemia 8. Endstage renal disease on hemodialysis. 9. Hypothyroidism. 10. Chronic depression. 11. Do not resuscitate. Subjective 24 Hr Interval Summary Free Text/Dictation patient was seen on 08/23/2016. this note is for 08/23/2016. No more vomiting, no abdominal pain. awaiting for EGD Talked with the patient and his at bedside Exam/Review of Systems Vital Signs Vitals Vital Signs Date Time Temp Pulse Resp B/P Pulse Ox O2 Delivery O2 Flow Rate FiO2 08/24/16 07:48 97.9 97 18 136/70 92 08/23/16 20:24 Room Air Intake and Output 08/23/16 08/23/16 08/24/16 15:00 23:00 07:00 Intake Total 700 ml 200 ml 180 ml Output Total 2400 ml Balance -1700 ml 200 ml 180 ml Exam Constitutional: alert, oriented, well developed Psych: nl mood/affect, no complaints Head: atraumatic, normocephalic Eyes: EOMI, PERRL, nl conjunctiva, nl lids ENMT: nl external ears & nose, nl lips & teeth, nl nasal mucosa & septum Neck: non-tender, supple Respiratory: clear to auscultation, normal air movement, No congested cough, No crackles/rales, No diminished breath sounds, No intercostal retraction, No labored breathing, No other, No respirations, No tactile fremitus, No wheezing Cardiovascular: nl pulses, regular rate and rhythm, No S3, No S4, No bruits, No diastolic murmur, No edema, No gallop, No irregular rhythm, No jugular venous distention (JVD), No murmurs/extra sounds, No other, No rub, No systolic murmur Gastrointestinal: nl liver, spleen, non-tender, soft, No ascites, No bowel sounds, No distended, No firm, No hepatomegaly, No mass , No other, No rebound or guarding, No splenomegaly, No surgical scars, No tender Musculoskeletal: nl extremities to inspection Extremities: normal pulses, No calf tenderness, No clubbing, No cyanosis, No edema, No other, No palpable cord, No pitting pedal edema, No tenderness Neurological: CUT OFF SAWYER II-XII intact, nl mental status, nl speech, nl strength Results Result Diagram: 08/24/16 04508/24/16 0451 Results 24 hrs Laboratory Tests Test 08/23/16 16:31 08/23/16 17:34 08/23/16 17:36 08/23/16 18:52 Bedside Glucose 378 H 390 H 369 H 335 H Test 08/23/16 21:42 08/24/16 01:06 08/24/16 02:40 08/24/16 04:51 Bedside Glucose 225 H 193 177 Alanine Aminotransferase (ALT/SGPT) 51 Albumin 3.3 Albumin/Globulin Ratio 1.00 Alkaline Phosphatase 366 H Anion Gap 17 H Aspartate Amino Transf (AST/SGOT) 19 Basophils # 0.1 Basophils % 0.5 Blood Urea Nitrogen 63 H Calcium Level 8.4 Carbon Dioxide Level 32 H Chloride Level 94 L Creatinine 8.31 H Direct Bilirubin 0.00 Eosinophils # 1.0 H Eosinophils % 6.4 Globulin 3.30 H Glucose Level 166 # Hematocrit 31.5 L Hemoglobin 9.8 L Indirect Bilirubin 0.1 Lymphocytes # 1.7 Lymphocytes % 11.0 L Mean Corpuscular Hemoglobin 33.4 H Mean Corpuscular Hemoglobin Concent 31.1 L Mean Corpuscular Volume 107.5 H Mean Platelet Volume 11.6 H Monocytes # 1.4 H Monocytes % 8.9 Neutrophils # 11.1 H Neutrophils % 72.7 Nucleated Red Blood Cells # 0.0 Nucleated Red Blood Cells % 0.0 Platelet Count 251 Potassium Level 4.4 Red Blood Count 2.93 L Red Cell Distribution Width 16.1 H Sodium Level 139 Total Bilirubin 0.1 L Total Protein 6.6 White Blood Count 15.2 #H Test 08/24/16 07:40 08/24/16 11:17 Bedside Glucose 161 158 Medications Medications Current Medications [facility] 75 mg QHS PO Last administered on 08/23/16 21:58; Admin Dose 75 MG; Start 08/22/16 at 21:00 Aspirin (Halfprin) 81 mg DAILY PO Last administered on 08/24/16 08:56; Admin Dose 81 MG; Start 08/23/16 at 09:00 Folic Acid (Folic Acid) 1 mg DAILY PO Last administered on 08/24/16 08:56; Admin Dose 1 MG; Start 08/23/16 at 09:00 Furosemide (Lasix) 40 mg DAILY PO Last administered on 08/24/16 08:56; Admin Dose 40 MG; Start 08/23/16 at 09:00 Tramadol HCl (Ultram) 25 mg Q6H PRN PO PAIN; Start 08/22/16 at 16:30 Miscellaneous Information 1 ea NOTE XX ; Start 08/22/16 at 16:30 Glucose (Glutose) 15 gm Q15M PRN PO DECREASED GLUCOSE; Start 08/22/16 at 16:30 Glucose (Glutose) 22.5 gm Q15M PRN PO DECREASED GLUCOSE; Start 08/22/16 at 16:30 Dextrose (D50w Syringe) 25 ml Q15M PRN IV DECREASED GLUCOSE; Start 08/22/16 at 16:30 Dextrose (D50w Syringe) 50 ml Q15M PRN IV DECREASED GLUCOSE; Start 08/22/16 at 16:30 Glucagon (Glucagen) 1 mg Q15M PRN IM DECREASED GLUCOSE; Start 08/22/16 at 16:30 Glucose 15 gm 15 gm Q15M PRN BUCCAL DECREASED GLUCOSE; Start 08/22/16 at 16:30 Ceftriaxone Sodium (Rocephin) 50 ml @ 100 mls/hr Q24H IVPB Last administered on 08/24/16 15:30; Admin Dose 100 MLS/HR; Start 08/23/16 at 15:00 Insulin Glargine (Lantus) 50 unit QHS SC Last administered on 08/23/16 21:59; Admin Dose 50 UNIT; Start 08/23/16 at 21:00 Pantoprazole (Protonix Iv) 40 mg BID@06,18 IV Last administered on 08/24/16 05: 38; Admin Dose 40 MG; Start 08/23/16 at 20:00 Fluconazole (Diflucan) 100 mg DAILY PO Last administered on 08/24/16t 08:56; Admin Dose 100 MG; Start 08/23/16 at 20:00; Stop 08/27/16 at 09:01 RENETTA CAT MD Aug 24, 2016 15:38
[2016-08-24] MEDS ORDERED: FLUC100T PO (15:44)
[2016-08-24] MEDS ORDERED: CARAS PO (15:44)
[2016-08-24] MEDS ORDERED: PANT40TA3 PO (15:44)
--- NOTE | 2016-08-24 15:56 | DS ---
Date/Time of Note Date/Time of Note DATE: 08/24/16 TIME: 15:46 Discharge Summary Admission/Discharge Info Admit Date/Time Aug 22, 2016 at 13:10 Discharge Date/Time Final Diagnosis 1. Hematemesis. esophagitis/gastritis/duodenitis, protonix/carafate/diflucan, follow up with Dr. Cruz 2. UTI, levaquin 3. Chronic anemia or anemia of chronic kidney disease superimposed on probable mild blood loss. 4. Uncontrolled diabetes mellitus. adjust insulins 5. Probable history of alcoholism with evidence of probable mild chronic liver disease as well as on propranolol 6. Hypertension, controlled 7. Dyslipidemia, [place] 8. Endstage renal disease on hemodialysis. 9. Hypothyroidism. on supplement 10. Chronic depression. stable Patient Condition: Stable Hospital Course Mr. Buck is a 76-year-old male who [facility] who was sent to us because of complaints of vomiting blood. Symptoms were said to have started today. The patient is not able to give me much in the way of history. Review of his home medication does not reveal that he is on any blood thinner medicine. The patient seems to have a history of chronic alcohol abuse in the past, as on his lab values and just general assessment, but I am unable to confirm or deny this with the patient. At this time, ____ him. There have been no other vomiting episodes as far as I am aware in the hospital and hematemesis was all reported and has not been visualized while he is here. For upper GI bleeding, patient had EGD on 08/24/2016 that revealed esophagitis, gastritis, and duodenitis. Dr. Cruz recommends protonix 40 mg po BID, carafate and 5 days diflucan for possible fungal infection. H/H 9.8/31.5. I will put him on iron supplement. Patient has leukocytosis, UA revealed WBC 20-50. He is treated with rocephin. WBC comes down from 22, 700 to 15,200. Home Meds Active Scripts Pantoprazole* (Protonix*) 40 Mg Tablet., 40 MG PO BID for 30 Days, TAB Prov:RENETTA CAT MD 08/24/16 Sucralfate* (Carafate*) 1 Gm/10 Ml Susp, 1 GM PO AC MEALS AND BEDTIME for 30 Days Prov:RENETTA CAT MD 08/24/16 Fluconazole* (Diflucan*) 100 Mg Tablet, 100 MG PO DAILY for 5 Days, TAB Prov:RENETTA CAT MD 08/24/16 Tramadol HCl (Tramadol HCl) 50 Mg Tablet, 25 MG PO Q6 Y for PAIN, #20 TAB Prov:DULCE LANTIGUA MD 08/21/16 Reported Medications Furosemide* (Furosemide*) 40 Mg Tablet, 40 MG PO DAILY, TAB 08/21/16 Propranolol Hcl* (Propranolol Hcl*) 40 Mg Tablet, 40 MG PO QAM, TAB 08/21/16 Levothyroxine Sodium* (Synthroid*) 50 Mcg Tablet, 50 MCG PO BEFORE BREAKFAST, # 30 TAB 08/21/16 Amitriptyline Hcl* (Amitriptyline Hcl*) 75 Mg Tablet, 75 MG PO QHS, #30 TAB 08/21/16 Atorvastatin Calcium* (Atorvastatin Calcium*) 20 Mg Tablet, 20 MG PO QHS, #30 TAB 08/21/16 Folic Acid* (Folic Acid*) 1 Mg Tablet, 1 MG PO DAILY, TAB 08/21/16 Insulin Lispro (Humalog) 100 Unit/1 Ml Cartridge, 0 SQ TID SLIDING SCALES 08/21/16 Insulin Glargine* (Lantus*) 100 Unit/Ml Soln, 20 UNIT SC BID, #1 VIAL 08/21/16 Discontinued Reported Medications Aspirin* (Aspirin* EC) 81 Mg Tablet.dr, 81 MG PO DAILY, TAB 08/21/16 Pending Labs Laboratory Tests Test 08/23/16 16:31 08/23/16 17:34 08/23/16 17:36 08/23/16 18:52 Bedside Glucose 378mg/dL (70-220) 390mg/dL (70-220) 369mg/dL (70-220) 335mg/dL (70-220) Test 08/23/16 21:42 08/24/16 01:06 08/24/16 02:40 08/24/16 04:51 Bedside Glucose 225mg/dL (70-220) 193mg/dL (70-220) 177mg/dL (70-220) Alanine Aminotransferase (ALT/SGPT) 51IU/L (13-69) Albumin 3.3g/dl (3.3-4.9) Albumin/Globulin Ratio 1.00 Alkaline Phosphatase 366IU/L (42-121) Anion Gap 17 (8-16) Aspartate Amino Transf (AST/SGOT) 19IU/L (15-46) Basophils # 0.110^3/ul (0.0-0.1) Basophils % 0.5% (0.0-2.0) Blood Urea Nitrogen 63mg/dl (7-20) Calcium Level 8.4mg/dl (8.4-10.2) Carbon Dioxide Level 32mmol/L (21-31) Chloride Level 94mmol/L (97-110) Creatinine 8.31mg/dl (0.61-1.24) Direct Bilirubin 0.00mg/dl (0.00-0.20) Eosinophils # 1.010^3/ul (0.0-0.5) Eosinophils % 6.4% (0.0-7.0) Globulin 3.30g/dl (1.3-3.2) Glucose Level 166mg/dl (70-220) Hematocrit 31.5% (42.0-52.0) Hemoglobin 9.8g/dl (14.0-18.0) Indirect Bilirubin 0.1mg/dl (0-1.1) Lymphocytes # 1.710^3/ul (0.8-2.9) Lymphocytes % 11.0% (15.0-51.0) Mean Corpuscular Hemoglobin 33.4pg (29.0-33.0) Mean Corpuscular Hemoglobin Concent 31.1g/dl (32.0-37.0) Mean Corpuscular Volume 107.5fl (82.0-101.0) Mean Platelet Volume 11.6fl (7.4-10.4) Monocytes # 1.410^3/ul (0.3-0.9) Monocytes % 8.9% (0.0-11.0) Neutrophils # 11.110^3/ul (1.6-7.5) Neutrophils % 72.7% (39.0-77.0) Nucleated Red Blood Cells # 0.010^3/ul (0.0-0.0) Nucleated Red Blood Cells % 0.0/100WBC (0.0-0.0) Platelet Count 26295^3/UL (140-415) Potassium Level 4.4mmol/L (3.5-5.1) Red Blood Count 2.9310^6/ul (4.70-6.10) Red Cell Distribution Width 16.1% (11.5-14.5) Sodium Level 139mmol/L (135-144) Total Bilirubin 0.1mg/dl (0.2-1.3) Total Protein 6.6g/dl (6.1-8.1) White Blood Count 15.210^3/ul (4.8-10.8) Test 08/24/16 07:40 08/24/16 11:17 Bedside Glucose 161mg/dL (70-220) 158mg/dL (70-220) RENETTA CAT MD Aug 24, 2016 15:56
[2016-08-24] MEDS ORDERED: FER325 PO (15:57)
[2016-08-24] MEDS ORDERED: LEVO500T72 PO (15:57)
== END 2016-08-24 20:52 ==
LOC: E/R 10:06 → PP2 13:10 → UNDOADMOB 14:11 → PP2 18:03
PROVIDERS: ADMIT Family Medicine; ATTEND Family Medicine
DX: K29.50 Unspecified chronic gastritis without bleeding (principal); K22.10 Ulcer of esophagus without bleeding; N39.0 Urinary tract infection, site not specified; I12.0 Hypertensive chronic kidney disease with stage 5 chronic kidney disease or end stage renal disease; N18.6 End stage renal disease; Z99.2 Dependence on renal dialysis; D63.1 Anemia in chronic kidney disease; E78.5 Hyperlipidemia, unspecified; E03.9 Hypothyroidism, unspecified; F32.9 Major depressive disorder, single episode, unspecified; K29.80 Duodenitis without bleeding; E66.9 Obesity, unspecified; Z68.25 Body mass index [BMI] 25.0-25.9, adult
CPT/HCPCS: 36415; 43239; 71010; 74176; 80053; 80061; 81001; 81003; 82607; 82746; 82962; 83036; 83540; 83735; 84443; 84484; 85025; 85610; 85730; 86850; 86900; 86901; 88305; 88312; 90935; 93005; 93306; 96365; 96372; 96374; 96375; 96376; 99285; A4310; C9113; G0378; J0696; J1815; J2270; J2405; J7030; 88313

== ENCOUNTER → 2016-11-29 | Outpatient (CLI) | payer MEDICARE, BC ==
[~2016-11-29] MED LIST changes: -ASPI-664 PO; +CARAS PO; +FER325 PO; +FLUC100T PO; +LEVO500T72 PO; +PANT40TA3 PO
--- NOTE | 2016-11-29 10:34 | RADRPT ---
PROCEDURE: XR pelvis/left hip. CLINICAL INDICATION: Hip pain TECHNIQUE: AP pelvis/AP and lateral left hip views performed. COMPARISON: No prior studies are available for comparison. FINDINGS: There is a left hip hemiarthroplasty. There is no evidence of loosening of the prosthesis. No hardwa re failure identified. There is mild to moderate right hip osteoarthrosis. This is associated with joint space narrowing, s ubchondral sclerosis and osteophytosis. There is normal osseous mineralization. No fractures or os seous lesions are identified. The soft tissues are unremarkable. IMPRESSION: Left hip hemiarthroplasty Mild to moderate right hip osteoarthrosis. RPTAT: HGDB .Saul Hollis MD, Date Time Electronically viewed and signed by .Saul Hollis MD, on 11/29/2016 10:34 .B/
== END | disposition home or self-care (01) ==
LOC: HKI 08:59
PROVIDERS: ATTEND Orthopaedic Surgery
DX: M25.552 Pain in left hip (principal); T84.84XA Pain due to internal orthopedic prosthetic devices, implants and grafts, initial encounter; Z96.642 Presence of left artificial hip joint
CPT/HCPCS: 73502; G0463

== ENCOUNTER → 2016-12-28 | Outpatient (CLI) | payer MEDICARE, BC ==
[~2016-12-28] MED LIST changes: +IOHEXOL 300MG/ML 30 ML BTL ONE
--- NOTE | 2016-12-28 16:01 | RADRPT ---
PROCEDURE: Left hip arthrogram and aspiration. CLINICAL INDICATION: Left hip pain. TECHNIQUE: Prior to the procedure, informed consent was obtained. The patient's name, date of th, and procedure to be performed were verified. Using local anesthetic, sterile technique and fluo roscopic guidance, a 20-gauge spinal needle was advanced into the left hip joint. Five cc of Omnipa que-300 contrast was injected into the joint. A small amount of serosanguineous fluid was aspirated and sent for laboratory analysis. COMPARISON: No prior studies available for comparison. FINDINGS: Images demonstrate a total left hip arthroplasty. Subsequent images demonstrate contrast injection in the joint region. Fluoroscopy time is 0.1 minutes. 5 images were obtained with the image intensi fier. IMPRESSION: 1. Satisfactory left hip arthrogram and aspiration. RPTAT: QQ .Rachid Keith MD, MD Date Time Electronically viewed and signed by .Rachid Keith MD, on 12/28/2016 16:01 .R/
[2016-12-28 19:07] LABS: FLUID APPEARANCE BLOODY; FLUID VOLUME 0.3 ml
[2016-12-28 19:08] LABS: FLUID RBC EST 4+
== END | disposition home or self-care (01) ==
LOC: RAD 13:46
PROVIDERS: ATTEND Orthopaedic Surgery
DX: M25.552 Pain in left hip (principal)
CPT/HCPCS: 77002; 87070; 89050; Q9967

== ENCOUNTER → 2017-01-18 | Outpatient (CLI) | payer MEDICARE, BC ==
[~2017-01-18] MED LIST changes: +ASPI-664 PO; +CHOL100062 PO; +CYAN500T46 PO; +HYDR-906 PO; +LIDOCAINE 1% (MDV) 20 ML INJ ONE; +SEVE800T7 PO
--- NOTE | 2017-01-18 16:54 | RADRPT ---
PROCEDURE: Left hip arthrogram and aspiration. CLINICAL INDICATION: Left hip pain. TECHNIQUE: Prior to the procedure, informed consent was obtained. The patient's name, date of th, and procedure to be performed were verified. Using local anesthetic, sterile technique and fluo roscopic guidance, a 20-gauge spinal needle was advanced into the left hip joint. Five cc of Omnipa que-300 contrast was injected into the joint. A small amount of serosanguineous fluid was aspirated and sent for laboratory analysis. COMPARISON: No prior studies available for comparison. FINDINGS: Images demonstrate a total left hip arthroplasty. Subsequent images demonstrate contrast injection in the joint region. Fluoroscopy time is 0.1 minutes. 3 images were obtained with the image intensi fier. IMPRESSION: 1. Satisfactory left hip arthrogram and aspiration. RPTAT: QQ .Rachid Keith MD, Date Time Electronically viewed and signed by .Rachid Keith MD, on 01/18/2017 16:54 .R/
== END | disposition home or self-care (01) ==
LOC: RAD 13:51
PROVIDERS: ATTEND Orthopaedic Surgery
DX: M25.552 Pain in left hip (principal); Z96.642 Presence of left artificial hip joint
CPT/HCPCS: 20610; 27093; 73525; 77002; Q9967

== ENCOUNTER 2017-03-28 16:42 | Observation (INO) | payer MEDICARE, OTHER ==
[~2017-03-28] VITALS: Ht 175.3 cm; Wt 86.5 kg
[~2017-03-28 16:42] MED LIST changes: -ASPI-664 PO; -CHOL100062 PO; -CYAN500T46 PO; -HYDR-906 PO; -IOHEXOL 300MG/ML 30 ML BTL ONE; -LIDOCAINE 1% (MDV) 20 ML INJ ONE; -SEVE800T7 PO
[2017-03-28 17:12] LABS: BASOPHIL # 0.1 10^3/ul (0.0-0.1); BASOPHILS % 0.5 % (0.0-2.0); EOSINOPHILS # 0.3 10^3/ul (0.0-0.5); EOSINOPHILS % 1.7 % (0.0-7.0); HEMATOCRIT 35.6 % (42.0-52.0); HEMOGLOBIN 11.7 g/dl (14.0-18.0); LYMPHOCYTES # 1.1 10^3/ul (0.8-2.9); LYMPHOCYTES % 6.5 % (15.0-51.0); MEAN CORPUSCULAR HEMOGLOBIN 35.5 pg (29.0-33.0); MEAN CORPUSCULAR HGB CONC 32.9 g/dl (32.0-37.0); MEAN CORPUSCULAR VOLUME 107.9 fl (82.0-101.0); MEAN PLATELET VOLUME 12.1 fl (7.4-10.4); MONOCYTE # 1.5 10^3/ul (0.3-0.9); MONOCYTES % 9.1 % (0.0-11.0); NEUTROPHIL # 13.3 10^3/ul (1.6-7.5); NEUTROPHILS % 81.5 % (39.0-77.0); PLATELET COUNT 173 10^3/UL (140-415); RED CELL DISTRIBUTION WIDTH 17.2 % (11.5-14.5); WHITE BLOOD COUNT 16.3 10^3/ul (4.8-10.8)
[2017-03-28] MEDS ORDERED: DIPHTH/TET/ACEL PERTUSS (ADULT) 0.5 ML VIAL IM* ONE (17:30)
[2017-03-28] MEDS ORDERED: LIDOCAINE 1% (MDV) 20 ML INJ SC ONE (17:30)
[2017-03-28] MEDS ORDERED: SOD CHLORIDE 0.9% 250 ML IV ONE (17:30)
[2017-03-28 17:34] LABS: ALBUMIN 4.2 g/dl (3.3-4.9); ALBUMIN/GLOBULIN RATIO 0.97; BILIRUBIN,INDIRECT 0.2 mg/dl (0-1.1); BILIRUBIN,TOTAL 0.2 mg/dl (0.2-1.3); CREATININE 5.12 mg/dl (0.61-1.24); POTASSIUM 4.8 mmol/L (3.5-5.1); TOTAL PROTEIN 8.5 g/dl (6.1-8.1)
--- NOTE | 2017-03-28 17:45 | RADRPT ---
PROCEDURE: CT Brain without contrast. CLINICAL INDICATION: Headache. TECHNIQUE: A CT of the brain without contrast was performed utilizing axial sections from the skul l base through the vertex. The patient was scanned without intravenous contrast enhancement. Sagitta l and coronal reformatted images were obtained using the data from the axial images. Total exam DLP is 720.23 mGy-cm. CTDIvol is 43.95 mGy. One or more of the following dose reduction techniques we re used: Automated exposure control, adjustment of the mA and/or kV according to patient size, use o f iterative reconstruction technique. COMPARISON: None available FINDINGS: There is normal badillo-white matter differentiation. There is enlargement of the ventricles and subarachnoid spaces consistent with atrophy. There is decreased attenuation of the periventricular white matter consistent with microangiopathic ischemic change. There is no intracranial hemorrhage or space-occupying lesion. There are vascular calcifications consistent with atherosclerosis. There is no skull fracture or lytic lesion. There is deviation of the nasal septum to the left. Ther e is partial opacification of the left mastoid air cells. IMPRESSION: 1. Atrophy. 2. Microangiopathic ischemic change. 3. Atherosclerosis. 4. Deviation of the nasal septum to the left. 5. Partial opacification of the left mastoid air cells. 6. No intracranial hemorrhage. 7. Otherwise unremarkable noncontrast CT scan of the brain. RPTAT: QQ .Rachid Keith MD, MD Date Time Electronically viewed and signed by .Rachid Keith MD, on 03/28/2017 17:45 .R/
[2017-03-28 17:46] LABS: TROPONIN-I 0.021 ng/ml (0.00-0.12)
[2017-03-28] MEDS ORDERED: SEVE800T7 PO (18:01)
[2017-03-28] MEDS ORDERED: ASPI-664 PO (18:02)
[2017-03-28] MEDS ORDERED: CYAN500T46 PO (18:03)
[2017-03-28] MEDS ORDERED: CHOL100062 PO (18:03)
--- NOTE | 2017-03-28 18:47 | RADRPT ---
PROCEDURE: XR Chest. CLINICAL INDICATION: Abdominal pain. TECHNIQUE: Single frontal view of the chest. COMPARISON: 08/23/2016. FINDINGS: Cardiomegaly. Hypoinflated lungs and patient body habitus accentuate pulmonary vascular markings. Mi ld bibasilar atelectasis, right greater than left. Differential considerations include right lung ba se air space disease with small right pleural effusion. Otherwise, no signs of pleural fluid or pneu mothorax are seen. The osseous structures and soft tissues are unremarkable. IMPRESSION: 1. Mild bibasilar atelectasis, right greater than left. 2. Differential considerations include right lung base air space disease with small right pleural ef fusion. RPTAT: [facility] Physician Leelee Date Time Electronically viewed and signed by Physician Leelee on 03/28/2017 18:47 RS/
--- NOTE | 2017-03-28 19:01 | RADRPT ---
PROCEDURE: XR Lumbar Spine. CLINICAL INDICATION: Lumbar spine pain status post fall. TECHNIQUE: AP, lateral, and cone-down lateral view of the lumbar spine were obtained. COMPARISON: CT abdomen 08/22/2016 FINDINGS: There is a 6 mm of anterolisthesis of L5 on S1 due to bilateral pars defects at this level. There a re anterior osteophytes from L1-S1 with severe narrowing of the intervertebral disc spaces at L5-S1 and mild disc-space narrowing L4-5. There are moderate associated discogenic endplate changes at L5 -S1. There are flowing anterior osteophytes from the T10-L1 consistent with DISH. The vertebral body heights are maintained. There is no evidence of fracture. There is diffuse moderate osteopenia. There is severe facet spondylosis at L4-5 and L5-S1 with suggestion of neural foraminal narrowing at L5-S1. The remaining neural foramina appear patent. There are severe degenerative changes of the interspinous articulations from L2-L5. The paraspinal soft tissues unremarkable. There is no evide nce of fracture. There is mild atherosclerosis of the abdominal aorta without evidence of aneurysm formation IMPRESSION: 1. Severe spondylosis/degenerative enthesopathy at L5-S1. 2. 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 3. Severe facet spondylosis at L4-5 and L5-S1 with suggestion of neural foraminal narrowing at L5-S 1. 4. Flowing anterior osteophytes from T10-L1 consistent with DISH. 5. No evidence of fracture. RPTAT: HGAS .Faisal Stock MD, Date Time Electronically viewed and signed by .Faisal Stock MD, on 03/28/2017 19:01 .S/
--- NOTE | 2017-03-28 19:14 | RADRPT ---
PROCEDURE: XR Hip. CLINICAL INDICATION: Hip pain status post fall TECHNIQUE: AP and frog lateral views of the left hip were performed. COMPARISON: None available FINDINGS: There are postoperative changes from prior left hip replacement. The femoral and acetabular compone nts articulate normally. There is no evidence of hardware loosening. There are no significant jermaine articular calcifications. There is diffuse moderate osteopenia. There is mild osteitis pubis. The visualized sacrum and sacroiliac joints are unremarkable. The soft tissues are normal in appearanc e. IMPRESSION: 1. Postoperative changes from prior left hip replacement with intact hardware. 2. No evidence of fracture. RPTAT: HGAS .Faisal Stokc MD, MD Date Time Electronically viewed and signed by .Faisal Stock MD, on 03/28/2017 19:14 .S/
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
[2017-03-28] MEDS ORDERED: KETOROLAC 15 MG INJ IV STA (19:36)
[2017-03-28] MEDS ORDERED: KETOROLAC 15 MG INJ ONE (19:38)
[2017-03-28 20:14] VITALS: PULSE 72
--- NOTE | 2017-03-28 21:04 | RADRPT ---
PROCEDURE: XR right rib series. CLINICAL INDICATION: Mid right thoracic pain. TECHNIQUE: 3 views of the right rib cage are available for review COMPARISON: Chest radiograph from 08/23/2016. FINDINGS: The osseous structures, articular spaces, and surrounding soft tissues of the right rib cage are int act. No acute fracture or dislocation is seen. No radiopaque foreign body is identified. The visua lized portions of the underlying lung is clear. There is blunting of the right costophrenic angle an d a small amount of fluid in the fissures suggesting tiny pleural effusion. There is no evidence of a pneumothorax. IMPRESSION: 1. Unremarkable right rib cage x-ray series. RPTAT: [facility] Physician Indra Date Time Electronically viewed and signed by Yamil Green Physician on 03/28/2017 21:03 /
[2017-03-28 21:08] VITALS: TEMP 98.7
[2017-03-28 22:00] VITALS: Ht 175.3 cm; Wt 86.5 kg
[2017-03-28 22:05] VITALS: PULSE 100
[2017-03-28 22:28] VITALS: BP 133/63; RESP 20
[2017-03-28] MEDS ORDERED: ATORVASTATIN 20 MG TAB PO SCH (23:30)
[2017-03-28] MEDS ORDERED: GLUCOSE GEL 15 GRAM TUBE PO PRN ×2 (23:30)
[2017-03-28] MEDS ORDERED: DEXTROSE 50% 50 ML SYRINGE IV PRN ×2 (23:30)
[2017-03-28] MEDS ORDERED: GLUCAGON 1 MG INJ IM PRN (23:30)
[2017-03-28] MEDS ORDERED: AMITRIPTYLINE 25 MG TAB PO SCH (23:30)
[2017-03-28] MEDS ORDERED: KETOROLAC 15 MG INJ IV PRN (23:30)
[2017-03-28] MEDS ORDERED: ONDANSETRON 4 MG INJ IV PRN (23:30)
[2017-03-28] MEDS ORDERED: morphine 4 MG/ML VIAL IV PRN (23:30)
[2017-03-28] MEDS ORDERED: GLUCOSE GEL 15 GRAM TUBE BUCCAL PRN (23:30)
[2017-03-29] VITALS (9 sets, daily range): BP systolic 85–142; BP diastolic 56–69; PULSE 70–87; RESP 18–19
[2017-03-29] MEDS: INSULIN ASPART [NOVOLOG] 3 ML PEN SC SCH ×3 (00:57→13:02)
[2017-03-29] MEDS: INSULIN GLARGINE [LANtus] 3 ML PEN SC SCH ×2 (01:05→08:16)
[2017-03-29] MEDS ORDERED: ACCU-CHEK XX SCH ×2 (02:00)
[2017-03-29] MEDS ORDERED: LEVOTHYROXINE 50 MCG TAB PO SCH (06:00)
--- NOTE | 2017-03-29 07:31 | HP ---
Date/Time of Note Date/Time of Note DATE: 03/29/17 TIME: 07:12 Assessment/Plan VTE Prophylaxis VTE Prophylaxis Intervention: SCD's Lines/Catheters IV Catheter Type (from [facility]): [facility] Urinary Cath still in place: No Assessment/Plan Assessment/Plan 76-year-old male with history of hypertension, dyslipidemia, hypothyroidism, diabetes, esophagitis/duodenitis/gastritis, upper GI bleed, back pain and end- stage renal disease on dialysis. Patient presented to the ER after he had a ground-level fall in the loss of consciousness. 1. Syncope -Most likely secondary to hypotension as a result of dialysis. Patient initially presented with blood pressure of 83/60 and he was dialyzed earlier today. -Head CT negative for acute findings. He had a 2D echo here about 6 months ago was preserved EF of 60% and there is no other significant abnormalities. Plan is to continue telemetry monitoring. Trend troponin. Obtain carotid Doppler ultrasound. Obtain orthostatics. 2. ESRD on HD Sunday, Sunday and Sunday -Next dialysis tomorrow. If patient stays here, will place a nephrology consult. He is pretty adamant about going home today. 3. Left periorbital and frontal scalp laceration, secondary to ground-level fall -Lacerations were sutured in the ER -keep area clean 4. Hypothyroidism -Continue Synthroid 5. History of hypertension -Patient was actually hypotensive on presentation. Will hold BP meds for now and restart slowly as needed 6. Insulin-dependent diabetes -Continue insulin -Check A1c 7. Status post partial left hip surgery -Patient has been unable to walk without a walker after surgery. He said that he is scheduled for completion of the surgery next month -Physical therapy eval while he is here -Pain management 8. History of hypertensive bleed, 08/2016 -Status post EGD with a finding of duodenitis/gastritis/esophagitis -Currently denying both upper and lower GI bleeding -Continue PPI HPI/ROS Admit Date/Time Admit Date/Time Mar 28, 2017 at 20:11 Hx of Present Illness This is a 76-year-old male with history of hypertension, dyslipidemia, hypothyroidism, diabetes, esophagitis/duodenitis/gastritis, upper GI bleed, back pain and end-stage renal disease on dialysis. Patient presented to the ER after he had a ground-level fall in the loss of consciousness. He said that he was sitting on the toilet when he felt "a braxton over my head". He then had a brief loss of consciousness and fell to the ground sustaining laceration above his left eye and forehead scalp. He said loss of consciousness was very brief probably lasting to 3 seconds. Denied previous history. He also denied chest pain, palpitation, shortness of breath or other symptoms. He was dialyzed earlier today. Patient had a partial left hip surgery and as a result he said he has not been able to walk without a walker. He is scheduled for completion of the left hip surgery next month. Patient was admitted here about 7 months ago for upper GI bleed. At that time he underwent EGD which showed esophagitis/ gastritis/duodenitis. He was placed on twice daily PPI. He denies hematemesis , dark stool or bright red blood per rectum. When he presented to the ER, blood pressure was 83/60. Head CT was negative for acute findings. EKG was no ST-T wave abnormalities. First troponin is negative. Labs shows WBC of 16,000, hemoglobin 11.7, BUN 32, creatinine 5.12. He had rib, hip and lumbar x-ray without acute fractures or dislocations. Lumbar x-ray however shows the following. 1. Severe spondylosis/degenerative enthesopathy at L5-S1. 2. 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 3. Severe facet spondylosis at L4-5 and L5-S1 with suggestion of neural foraminal narrowing at L5-S1. 4. Flowing anterior osteophytes from T10-L1 consistent with DISH. PMH/Family/Social Past Medical History hypertension, dyslipidemia, hypothyroidism, diabetes, esophagitis/duodenitis/ gastritis, upper GI bleed, back pain and end-stage renal disease on dialysis. Social History Smoking Status: Never smoker Exam/Review of Systems Vital Signs Vitals Vital Signs Date Time Temp Pulse Resp B/P Pulse Ox O2 Delivery O2 Flow Rate FiO2 03/29/17 04:04 75 03/29/17 03:53 97.8 18 93/56 97 03/28/17 21:48 Room Air 03/28/17 18:00 2.0 Labs Result Diagram: 03/28/17 1700 03/28/17 1700 Medications Medications Current Medications Ketorolac Tromethamine (Toradol) 15 mg Q6H PRN IV PAIN Last administered on 01:02; Admin Dose 15 MG; Start 03/28/17 at 23:30; Stop 03/31/17 at 23: 29 Morphine Sulfate (morphine) 3 mg Q4H PRN IV SEVERE PAIN LEVEL 7-10; Start 05/04 at 23:30 Ondansetron HCl (Zofran Inj) 4 mg Q6H PRN IV NAUSEA AND/OR VOMITING; Start 05/04 at 23:30 Diagnostic Test (Pha) (Accu-Chek) 1 ea 02 XX ; Start 03/29/17 at 02:00 Miscellaneous Information 1 ea NOTE XX ; Start 03/28/17 at 23:30 Glucose (Glutose) 15 gm Q15M PRN PO DECREASED GLUCOSE; Start 03/28/17 at 23:30 Glucose (Glutose) 22.5 gm Q15M PRN PO DECREASED GLUCOSE; Start 03/28/17 at 23: 30 Dextrose (D50w Syringe) 25 ml Q15M PRN IV DECREASED GLUCOSE; Start 03/28/17 at 23:30 Dextrose (D50w Syringe) 50 ml Q15M PRN IV DECREASED GLUCOSE; Start 03/28/17 at 23:30 Glucagon (Glucagen) 1 mg Q15M PRN IM DECREASED GLUCOSE; Start 03/28/17 at 23: 30 Glucose (Glutose) 15 gm Q15M PRN BUCCAL DECREASED GLUCOSE; Start 03/28/17 at 23:30 Amitriptyline HCl (Elavil) 37.5 mg HS PO Last administered on 03/29/17 00:59 ; Admin Dose 37.5 MG; Start 03/28/17 at 23:30 Atorvastatin Calcium (Lipitor) 20 mg HS PO Last administered on 03/29/17 00: 59; Admin Dose 20 MG; Start 03/28/17 at 23:30 Folic Acid (Folic Acid) 1 mg DAILY PO ; Start 03/29/17 at 09:00 Levothyroxine Sodium (Synthroid) 50 mcg DAILY@06 PO Last administered on 06:38; Admin Dose 50 MCG; Start 03/29/17 at 06:00 Aspirin (Aspirin) 81 mg DAILY PO ; Start 03/29/17 at 09:00 CONCHITA THOMPSON MD Mar 29, 2017 07:27
[2017-03-29] MEDS ORDERED: INSULIN ASPART [NOVOLOG] 3 ML PEN SC SCH (07:55)
[2017-03-29] MEDS ORDERED: INSULIN GLARGINE [LANtus] 3 ML PEN SC SCH (08:00)
[2017-03-29 08:12] LABS: BASOPHILS % 0.5 % (0.0-2.0); EOSINOPHILS # 0.6 10^3/ul (0.0-0.5); EOSINOPHILS % 6.9 % (0.0-7.0); HEMATOCRIT 29.3 % (42.0-52.0); HEMOGLOBIN 9.6 g/dl (14.0-18.0); LYMPHOCYTES # 1.7 10^3/ul (0.8-2.9); LYMPHOCYTES % 21.1 % (15.0-51.0); MEAN CORPUSCULAR HEMOGLOBIN 34.9 pg (29.0-33.0); MEAN CORPUSCULAR HGB CONC 32.8 g/dl (32.0-37.0); MEAN CORPUSCULAR VOLUME 106.5 fl (82.0-101.0); MONOCYTE # 0.8 10^3/ul (0.3-0.9); MONOCYTES % 9.8 % (0.0-11.0); NEUTROPHIL # 4.9 10^3/ul (1.6-7.5); NEUTROPHILS % 61.2 % (39.0-77.0); PLATELET COUNT 139 10^3/UL (140-415); RED BLOOD COUNT 2.75 10^6/ul (4.70-6.10); RED CELL DISTRIBUTION WIDTH 17.2 % (11.5-14.5); WHITE BLOOD COUNT 8.1 10^3/ul (4.8-10.8)
[2017-03-29] MEDS: SEVELAMER 800 MG TAB PO SCH ×2 (08:12→12:58)
[2017-03-29 08:44] LABS: ALBUMIN 3.1 g/dl (3.3-4.9); ALBUMIN/GLOBULIN RATIO 0.91; CALCIUM 8.6 mg/dl (8.4-10.2); CHOL/HDL RATIO 2.6 RATIO; POTASSIUM 5.1 mmol/L (3.5-5.1); TOTAL PROTEIN 6.5 g/dl (6.1-8.1)
[2017-03-29] MEDS ORDERED: ASPIRIN 81 MG TAB PO SCH (09:00)
[2017-03-29] MEDS ORDERED: FOLIC ACID 1 MG TAB PO SCH (09:00)
[2017-03-29 09:14] LABS: THYROID STIMULATING HORMONE 1.82 MIU/L (0.465-4.680)
--- NOTE | 2017-03-29 10:41 | PDOCDIS ---
Discharge Instructions CONDITION Patient Condition: Stable HOME CARE INSTRUCTIONS: Diet Instructions: Reduced Calorie FOLLOW UP/APPOINTMENTS Follow-up Plan 1. Follow up with your primary care provider within 1 week for symptoms/head suture removal and possible medication change 2. Ensure adequate fluids and take your time while getting up from a seated/sleeping position 3. Follow up with your network operations manager as soon as possible DULCE GALINDO Mar 29, 2017 10:41
[2017-03-29] MEDS ORDERED: HYDR-906 PO (10:43)
--- NOTE | 2017-03-29 15:05 | DS ---
Date/Time of Note Date/Time of Note DATE: 03/29/17 TIME: 15:05 Discharge Summary Admission/Discharge Info Admit Date/Time Mar 28, 2017 at 20:11 Discharge Date/Time Patient Condition: Stable Hx of Present Illness This is a 76-year-old male with history of hypertension, dyslipidemia, hypothyroidism, diabetes, esophagitis/duodenitis/gastritis, upper GI bleed, back pain and end-stage renal disease on dialysis. Patient presented to the ER after he had a ground-level fall in the loss of consciousness. He said that he was sitting on the toilet when he felt "a braxton over my head". He then had a brief loss of consciousness and fell to the ground sustaining laceration above his left eye and forehead scalp. He said loss of consciousness was very brief probably lasting to 3 seconds. Denied previous history. He also denied chest pain, palpitation, shortness of breath or other symptoms. He was dialyzed earlier today. Patient had a partial left hip surgery and as a result he said he has not been able to walk without a walker. He is scheduled for completion of the left hip surgery next month. Patient was admitted here about 7 months ago for upper GI bleed. At that time he underwent EGD which showed esophagitis/ gastritis/duodenitis. He was placed on twice daily PPI. He denies hematemesis , dark stool or bright red blood per rectum. When he presented to the ER, blood pressure was 83/60. Head CT was negative for acute findings. EKG was no ST-T wave abnormalities. First troponin is negative. Labs shows WBC of 16,000, hemoglobin 11.7, BUN 32, creatinine 5.12. He had rib, hip and lumbar x-ray without acute fractures or dislocations. Lumbar x-ray however shows the following. 1. Severe spondylosis/degenerative enthesopathy at L5-S1. 2. 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 3. Severe facet spondylosis at L4-5 and L5-S1 with suggestion of neural foraminal narrowing at L5-S1. 4. Flowing anterior osteophytes from T10-L1 consistent with DISH. Hospital Course Patient is a 76-year-old male with past medical history of hypertension, dyslipidemia, hypothyroid, diabetes and end-stage renal disease on dialysis who presented for syncope. After speaking with patient at length patient states that. He has been having the same symptoms for the past 6 months, and he would like to go home as he is feeling fine. The etiology of patient's syncopal episode is unclear at this time, however the timing of patient's symptoms in the morning as he stands up as well as being hypotensive makes the diagnosis of orthostatic hypotension most likely. Patient has multiple risk factors of orthostatic hypotension including autonomic dysfunction given his diabetes, being on TCA, not drinking enough fluids, as well as hemodialysis taking off too much fluid. Initial scans and x-rays as well as labs done here upon admission were negative and patient was counseled extensively on how to be careful regarding symptoms of orthostatic hypotension. Patient also states that he would like to go home and refuses any additional workup at this time. Patient also refuses PT at this time given his partial left knee surgery and the fact that the patient has follow-up and secondary surgery of his left knee the following couple weeks. Patient does have an appointment with his primary care provider next week already scheduled, and it was explained that he will need to address his syncopal episode as well as get his sutures removed. Patient will have a home evaluation for safety per case management and patient assumes all responsibility for additional symptoms of syncope as he would like to go home today. It was explained to the patient if his symptoms continue to return to the ED as soon as possible. Discharge diagnoses Syncope, orthostatic hypotension versus vasovagal event Age renal disease Frontal scalp laceration, secondary to ground-level fall Hypothyroidism Hypertension Insulin-dependent diabetes Partial left lower extremity surgery Leukocytosis, resolved likely secondary to reactive etiology Home Meds Active Scripts Hydrocodone/Acetaminophen ([place] 5-325 Tablet) 1 Each Tablet, 1 EACH PO Q8 Y for PAIN, #21 TAB Prov:DULCE GALINDO 03/29/17 Reported Medications Cholecalciferol* (Vitamin D3*) 1,000 Unit Tablet, 1000 UNIT PO DAILY, TAB 03/28/17 Cyanocobalamin* (Vitamin B12*) Unknown Strength Tab, 1 TAB PO Q MON,FRI, TAB 03/28/17 Aspirin* (Aspirin* EC) 81 Mg Tablet.dr, 81 MG PO DAILY, TAB 03/28/17 Sevelamer Carbonate* (Renvela*) 800 Mg Tablet, 0.8 GM PO WITH MEALS BID, TAB 03/28/17 Levothyroxine Sodium* (Synthroid*) 50 Mcg Tablet, 50 MCG PO BEFORE BREAKFAST, # 30 TAB 08/21/16 Amitriptyline Hcl* (Amitriptyline Hcl*) 75 Mg Tablet, 37.5 MG PO QHS, #30 TAB 08/21/16 Atorvastatin Calcium* (Atorvastatin Calcium*) 20 Mg Tablet, 20 MG PO QHS, #30 TAB 08/21/16 Folic Acid* (Folic Acid*) 1 Mg Tablet, 1 MG PO DAILY, TAB 08/21/16 Insulin Lispro (Humalog) 100 Unit/1 Ml Cartridge, 0 SQ TID SLIDING SCALES 08/21/16 Insulin Glargine* (Lantus*) 100 Unit/Ml Soln, 20 UNIT SC BID, #1 VIAL 08/21/16 Discontinued Reported Medications Furosemide* (Furosemide*) 40 Mg Tablet, 40 MG PO DAILY, TAB 08/21/16 Propranolol Hcl* (Propranolol Hcl*) 40 Mg Tablet, 40 MG PO QAM, TAB 08/21/16 Discontinued Scripts Ferrous Sulfate* (Ferrous Sulfate*) 325 Mg Tabec, 325 MG PO BID for 30 Days, TAB Prov:RENETTA CAT MD 08/24/16 Levofloxacin* (Levaquin*) 500 Mg Tablet, 500 MG PO DAILY for 7 Days, TAB Prov:RENETTA CAT MD 08/24/16 Pantoprazole* (Protonix*) 40 Mg Tablet.dr, 40 MG PO BID for 30 Days, TAB Prov:RENETTA CAT MD 08/24/16 Sucralfate* (Carafate*) 1 Gm/10 Ml Susp, 1 GM PO AC MEALS AND BEDTIME for 30 Days Prov:RENETTA CAT MD 08/24/16 Fluconazole* (Diflucan*) 100 Mg Tablet, 100 MG PO DAILY for 5 Days, TAB Prov:RENETTA CAT MD 08/24/16 Tramadol HCl (Tramadol HCl) 50 Mg Tablet, 25 MG PO Q6 Y for PAIN, #20 TAB Prov:DULCE LANTIGUA MD 08/21/16 Follow-up Plan 1. Follow up with your primary care provider within 1 week for symptoms/head suture removal and possible medication change 2. Ensure adequate fluids and take your time while getting up from a seated/sleeping position 3. Follow up with your digital pre press operator as soon as possible Primary Care Provider Isiah Rachel Time spent on discharge: > 30 minutes Pending Labs Laboratory Tests Test 03/28/17 17:00 03/28/17 20:41 03/28/17 23:35 03/29/17 00:46 White Blood Count 16.310^3/ul (4.8-10.8) Red Blood Count 3.3010^6/ul (4.70-6.10) Hemoglobin 11.7g/dl (14.0-18.0) Hematocrit 35.6% (42.0-52.0) Mean Corpuscular Volume 107.9fl (82.0-101.0) Mean Corpuscular Hemoglobin 35.5pg (29.0-33.0) Mean Corpuscular Hemoglobin Concent 32.9g/dl (32.0-37.0) Red Cell Distribution Width 17.2% (11.5-14.5) Platelet Count 39567^3/UL (140-415) Mean Platelet Volume 12.1fl (7.4-10.4) Neutrophils % 81.5% (39.0-77.0) Lymphocytes % 6.5% (15.0-51.0) Monocytes % 9.1% (0.0-11.0) Eosinophils % 1.7% (0.0-7.0) Basophils % 0.5% (0.0-2.0) Nucleated Red Blood Cells % 0.0/100WBC (0.0-0.0) Neutrophils # 13.310^3/ul (1.6-7.5) Lymphocytes # 1.110^3/ul (0.8-2.9) Monocytes # 1.510^3/ul (0.3-0.9) Eosinophils # 0.310^3/ul (0.0-0.5) Basophils # 0.110^3/ul (0.0-0.1) Nucleated Red Blood Cells # 0.010^3/ul (0.0-0.0) Sodium Level 138mmol/L (135-144) Potassium Level 4.8mmol/L (3.5-5.1) Chloride Level 94mmol/L (97-110) Carbon Dioxide Level 30mmol/L (21-31) Anion Gap 19 (8-16) Blood Urea Nitrogen 32mg/dl (7-20) Creatinine 5.12mg/dl (0.61-1.24) Glucose Level 177mg/dl (70-220) Calcium Level 9.0mg/dl (8.4-10.2) Total Bilirubin 0.2mg/dl (0.2-1.3) Direct Bilirubin 0.00mg/dl (0.00-0.20) Indirect Bilirubin 0.2mg/dl (0-1.1) Aspartate Amino Transf (AST/SGOT) 61IU/L (15-46) Alanine Aminotransferase (ALT/SGPT) 38IU/L (13-69) Alkaline Phosphatase 128IU/L (42-121) Troponin I 0.021ng/ml (0.00-0.12) 0.031ng/ml (0.00-0.12) Total Protein 8.5g/dl (6.1-8.1) Albumin 4.2g/dl (3.3-4.9) Globulin 4.30g/dl (1.3-3.2) Albumin/Globulin Ratio 0.97 Lipase 119U/L (23-300) Bedside Glucose 207mg/dL (70-220) 296mg/dL (70-220) Test 03/29/17 06:57 03/29/17 08:10 03/29/17 12:56 White Blood Count 8.110^3/ul (4.8-10.8) Red Blood Count 2.7510^6/ul (4.70-6.10) Hemoglobin 9.6g/dl (14.0-18.0) Hematocrit 29.3% (42.0-52.0) Mean Corpuscular Volume 106.5fl (82.0-101.0) Mean Corpuscular Hemoglobin 34.9pg (29.0-33.0) Mean Corpuscular Hemoglobin Concent 32.8g/dl (32.0-37.0) Red Cell Distribution Width 17.2% (11.5-14.5) Platelet Count 33567^3/UL (140-415) Mean Platelet Volume 12.0fl (7.4-10.4) Neutrophils % 61.2% (39.0-77.0) Lymphocytes % 21.1% (15.0-51.0) Monocytes % 9.8% (0.0-11.0) Eosinophils % 6.9% (0.0-7.0) Basophils % 0.5% (0.0-2.0) Nucleated Red Blood Cells % 0.0/100WBC (0.0-0.0) Neutrophils # 4.910^3/ul (1.6-7.5) Lymphocytes # 1.710^3/ul (0.8-2.9) Monocytes # 0.810^3/ul (0.3-0.9) Eosinophils # 0.610^3/ul (0.0-0.5) Basophils # 0.010^3/ul (0.0-0.1) Nucleated Red Blood Cells # 0.010^3/ul (0.0-0.0) Sodium Level 136mmol/L (135-144) Potassium Level 5.1mmol/L (3.5-5.1) Chloride Level 95mmol/L (97-110) Carbon Dioxide Level 31mmol/L (21-31) Anion Gap 15 (8-16) Blood Urea Nitrogen 52mg/dl (7-20) Creatinine 7.00mg/dl (0.61-1.24) Glucose Level 144mg/dl (70-220) Hemoglobin A1c 8.0% (0-5.9) Calcium Level 8.6mg/dl (8.4-10.2) Total Bilirubin 0.0mg/dl (0.2-1.3) Direct Bilirubin 0.00mg/dl (0.00-0.20) Indirect Bilirubin 0.0mg/dl (0-1.1) Aspartate Amino Transf (AST/SGOT) 22IU/L (15-46) Alanine Aminotransferase (ALT/SGPT) 30IU/L (13-69) Alkaline Phosphatase 93IU/L (42-121) Troponin I 0.045ng/ml (0.00-0.12) Total Protein 6.5g/dl (6.1-8.1) Albumin 3.1g/dl (3.3-4.9) Globulin 3.40g/dl (1.3-3.2) Albumin/Globulin Ratio 0.91 Triglycerides Level 139mg/dl (0-149) Cholesterol Level 98mg/dl (100-200) LDL Cholesterol, Calculated 33mg/dl HDL Cholesterol 37mg/dl (31-75) Cholesterol/HDL Ratio 2.6RATIO Thyroid Stimulating Hormone (TSH) 1.820MIU/L (0.465-4.680) Bedside Glucose 144mg/dL (70-220) 176mg/dL (70-220) DULCE GALINDO Mar 29, 2017 15:05
== END 2017-03-29 14:30 | disposition home or self-care (01) ==
LOC: E/R 16:42 → INTOOBSV 20:11 → TEL 20:11
PROVIDERS: ADMIT Internal Medicine; ATTEND Internal Medicine
DX: I95.1 Orthostatic hypotension (principal); R55 Syncope and collapse; I12.0 Hypertensive chronic kidney disease with stage 5 chronic kidney disease or end stage renal disease; S01.111A Laceration without foreign body of right eyelid and periocular area, initial encounter; N18.6 End stage renal disease; Z99.2 Dependence on renal dialysis; E03.9 Hypothyroidism, unspecified; E11.22 Type 2 diabetes mellitus with diabetic chronic kidney disease; Z79.4 Long term (current) use of insulin; S01.01XA Laceration without foreign body of scalp, initial encounter; W17.89XA Other fall from one level to another, initial encounter; Y92.002 Bathroom of unspecified non-institutional (private) residence as the place of occurrence of the external cause; M47.897 Other spondylosis, lumbosacral region; M25.78 Osteophyte, vertebrae
CPT/HCPCS: 36415; 70450; 71010; 71100; 72100; 73510; 80053; 80061; 82962; 83036; 83690; 84443; 84484; 85025; 90471; 90715; 93005; 96374; 99285; G0378; J1815; J1885; J7040; 99217

== ENCOUNTER 2018-08-02 06:31 | Inpatient (IN) | payer BC, MEDICARE, OTHER ==
[~2018-08-02] VITALS: Ht 175.3 cm; Wt 78.2 kg
[~2018-08-02 06:31] MED LIST changes: +ASPI-817 PO; -CARAS PO; +CHOL100062 PO; +CYAN500T46 PO; -FER325 PO; -FLUC100T PO; -FURO40TA4 PO; +HYDR-4011 PO; -LEVO500T72 PO; -LEVO50TA83 PO; +LEVO50TA89 PO; -PANT40TA3 PO; -PROP40TA4 PO; +SEVE800T7 PO; -TRAM50TA2 PO
[2018-08-02] MEDS ORDERED: SOD CHLORIDE 0.9% 500 ML IV STA (06:53)
[2018-08-02] MEDS ORDERED: ASPI-903 PO (07:14)
[2018-08-02] MEDS ORDERED: NORT10CA2 PO (07:15)
[2018-08-02] MEDS ORDERED: MIDO5TAB PO (07:16)
--- NOTE | 2018-08-02 07:25 | ERD ---
ER Documentation Chief Complaint Chief Complaint Rectal bleeding this morning HPI This is a 78-year-old male with a history of end-stage renal disease on hemodialysis every Sunday. The patient's last full run of kary lysis was 2 days ago. Was scheduled to receive dialysis this morning just prior to arrival but stated he was unable to make his dialysis session as he awoke this morning feeling weak and dizzy. He stated his underwear was covered in blood. He had a bowel movement noticed that there was a significant amount of blood coating the stool. He states he is never had this happen prior to this morning. He denies any constipation. He denies any hemoptysis or hematemesis and also states he has had no melanotic stools. He is not currently on blood thinners. His AV access site is in the left upper extremity with the HeRo graft. The patient denies any chest pain. He states he had no shortness of breath. He does indicate he has had intermittent abdominal cramping with no back pain. He states the abdominal cavity is more prominent on the left-hand side. ROS All systems reviewed and are negative except as per history of present illness. Medications Home Meds Active Scripts Hydrocodone/Acetaminophen ([place] 5-325 Tablet) 1 Each Tablet, 1 EACH PO Q8 PRN for PAIN, #21 TAB Prov:DULCE GALINDO 03/29/17 Reported Medications Midodrine* (Midodrine*) 5 Mg Tablet, 5 MG PO DAILY, TAB THE DAYS OF DIALYSIS 08/02/18 Nortriptyline Hcl* (Nortriptyline Hcl*) 10 Mg Capsule, 10 MG PO TID, CAP 08/02/18 Aspirin* (Aspirin* Chew) 81 Mg Tab.chew, 81 MG PO DAILY, TAB.CHEW 08/02/18 Cholecalciferol* (Vitamin D3*) 1,000 Unit Tablet, 1000 UNIT PO DAILY, TAB 03/28/17 Cyanocobalamin* (Vitamin B12*) Unknown Strength Tab, 1 TAB PO Q MON,FRI, TAB 03/28/17 Sevelamer Carbonate* (Renvela*) 800 Mg Tablet, 0.8 GM PO WITH MEALS BID, TAB 03/28/17 Levothyroxine Sodium* (Synthroid*) 50 Mcg Tablet, 50 MCG PO BEFORE BREAKFAST, #30 TAB 08/21/16 Atorvastatin Calcium* (Atorvastatin Calcium*) 20 Mg Tablet, 20 MG PO QHS, #30 TAB 08/21/16 Folic Acid* (Folic Acid*) 1 Mg Tablet, 1 MG PO DAILY, TAB 08/21/16 Insulin Lispro (Humalog) 100 Unit/1 Ml Cartridge, 0 SQ TID SLIDING SCALES 08/21/16 Insulin Glargine* (Lantus*) 100 Unit/Ml Soln, 20 UNIT SC BID, #1 VIAL 08/21/16 Discontinued Reported Medications Amitriptyline Hcl* (Amitriptyline Hcl*) 75 Mg Tablet, 37.5 MG PO QHS, #30 TAB 08/21/16 Allergies Allergies: Coded Allergies: hydromorphone (Verified Allergy, Unknown, UNKNOWN, 08/02/18) PMhx/Soc History of Surgery: Yes (CERVICAL SX,LUMBAR SX,KNEE SX,PROSTATE AND GALL BLADDER REMOVED) Anesthesia Reaction: Yes (WITH UNKNOWN ANESTHESIA REACTION) Hx Neurological Disorder: No Hx Respiratory Disorders: No Hx Cardiac Disorders: Yes (HYPERLIPIDEMIA, ) Hx Psychiatric Problems: No Hx Miscellaneous Medical Probl: Yes (HYPOTHYROID, DM, END STAGE RENAL DIALYSIS PT) Hx Alcohol Use: Yes (formerly a light occational drinker, no longer drinks) Hx Substance Use: No Hx Tobacco Use: No Smoking Status: Never smoker Physical Exam Vitals Vital Signs Date Temp Pulse Resp B/P (MAP) Pulse Ox O2 O2 Flow FiO2 Time Delivery Rate 08/02/18 99 20 110/66 100 Nasal 2.0 08:30 (81) Cannula 08/02/18 101 20 98/68 (78) 100 Nasal 2.0 08:10 Cannula 08/02/18 Nasal 2 07:40 Cannula 08/02/18 100 20 88/67 (74) 99 Nasal 2.0 07:00 Cannula 08/02/18 98.7 90 18 98/64 (75) 99 06:35 Physical Exam Constitutional:Well-developed. Well-nourished. HEENT:Normocephalic. Atraumatic.Pupils were equal round reactive to light. Moist mucous membranes.No tonsillar exudates. No conjunctival pallor Neck: No nuchal rigidity. No lymphadenopathy. No posterior cervical spine tenderness or step-offs. Respiratory: Not using accessory muscles of respiration.Lungs were clear to auscultation bilaterally. No rhonchi. No rales. No wheezing. Cardiovascular: Regular rate regular rhythm.No murmurs. No rubs were appreciated.S1, S2 normal. Distal pulses are palpable 2+ bilaterally. GI: Abdomen was soft. Left lower quadrant tenderness and palpable mass. Non Distended. No pulsatile abdominal masses or bruits. No rebound. No guarding. Bowel sounds were present and normal. Rectal: Normal specter tone. No hemorrhoids present. No gross blood per rectum. Fecal occult blood test is positive Muscle skeletal: Full range of motion of both the upper extremities bilaterally.Normal muscle tone.No assymetrical calf tenderness or swelling. Skin: No petechia, no purpura. No lesions on the palms or the soles of the feet. No maculopapular rash. Stage I sacral decubitus ulcer. NEURO: Patient was alert, awake, orientated x3.No facial droop. Gait not observed as patient felt too weak to ambulate.Speech had regular rate and rhythm. No focal neurological deficits. Result Diagram: 08/02/18 0751 08/02/18 0751 Results 24 hrs Laboratory Tests Test 08/02/18 07:13 08/02/18 07:51 08/02/18 08:43 08/02/18 09:25 Stool Occult Blood POSITIVE White Blood Count 11.7 10^3/ul Red Blood Count 3.04 10^6/ul Hemoglobin 9.4 g/dl Hematocrit 30.9 % Mean Corpuscular 101.6 fl Volume Mean Corpuscular 30.9 pg Hemoglobin Mean Corpuscular 30.4 g/dl Hemoglobin Concent Red Cell 17.4 % Distribution Width Platelet Count 253 10^3/UL Mean Platelet 10.8 fl Volume Immature 0.500 % Granulocytes % Neutrophils % 78.5 % Lymphocytes % 8.7 % Monocytes % 10.6 % Eosinophils % 1.3 % Basophils % 0.4 % Nucleated Red Blood 0.0 /100WBC Cells % Immature 0.060 10^3/ul Granulocytes # Neutrophils # 9.2 10^3/ul Lymphocytes # 1.0 10^3/ul Monocytes # 1.2 10^3/ul Eosinophils # 0.2 10^3/ul Basophils # 0.1 10^3/ul Nucleated Red Blood 0.0 10^3/ul Cells # Prothrombin Time 14.7 Sec Prothrombin Time 1.1 Ratio INR International 1.14 Normalized Ratio Activated 33.4 Sec Partial Thromboplas t Time Sodium Level 137 mmol/L Potassium Level 5.1 mmol/L Chloride Level 95 mmol/L Carbon Dioxide 30 mmol/L Level Anion Gap 12 Blood Urea Nitrogen 48 mg/dl Creatinine 6.67 mg/dl Est Glomerular mL/min Filtrat Rate mL/min Glucose Level 45 mg/dl Calcium Level 8.2 mg/dl Total Bilirubin 0.0 mg/dl Direct Bilirubin 0.00 mg/dl Indirect Bilirubin 0.0 mg/dl Aspartate Amino 11 IU/L Transf (AST/SGOT) Alanine 14 IU/L Aminotransferase (A LT/SGPT) Alkaline 100 IU/L Phosphatase Troponin I 0.052 ng/ml Total Protein 6.2 g/dl Albumin 2.9 g/dl Globulin 3.30 g/dl Albumin/Globulin 0.87 Ratio Amylase Level 34 U/L Lipase < 10 U/L Bedside Glucose 51 mg/dL 147 mg/dL Current Medications Medications Dose Sig/Michael Start Time Status Last (Trade) Ordered Route PRN Stop Time Admin Dose Reason Admin Sodium 500 ml @ Q1H STAT 08/02/18 DC 08/02/18 Chloride 500 mls/hr IV 06:53 08:11 08/02/18 07:52 Dextrose 50 ml ONCE STAT 08/02/18 DC 08/02/18 (D50w IV 08:38 08:47 Syringe) 08/02/18 08:39 IV Flush 10 ml STK-MED 08/02/18 DC 08/02/18 (NS 10 ml) ONCE .ROUTE 08:45 10:45 08/02/18 08:46 Sodium 100 ml @ ud STK-MED 08/02/18 DC 08/02/18 Chloride ONCE .ROUTE 08:45 10:45 08/02/18 08:46 Iohexol 150 ml STK-MED 08/02/18 DC 08/02/18 (Omnipaque ONCE .ROUTE 08:45 10:45 300mg/ ml) 08/02/18 08:46 Ondansetron 4 mg ER BRIDGE 08/02/18 HCl (Zofran PRN IV 11:00 Inj) NAUSEA/VOMITI 08/03/18 10:59 NG 650 mg ER BRIDGE 08/02/18 Acetaminophen PRN PO 11:00 (Tylenol .MILD PAIN 08/03/18 10:59 Tab) 1-3 OR TEMP Procedures/MDM The patient presented to the emergency department with hematochezia, suggesting a lower gastrointestinal bleeding. My differential diagnosis included but was not limited to diverticulosis, cancer, polyps, colitis, internal or external hemorrhoids, IBD, and vascular etiologies such as angiodysplasia or aortocolonic fistula. The patient was placed on a histology assistant, continuous pulse oximetry, and IV access established by nursing staff. I obtained a CT scan of the patient's abdomen due to his findings on physical exam. This was read by the radiologist who I spoke with personally and indicate the followin. LARGE IRREGULAR MASS MEASURING 10.6 X 6.2 CM INVOLVING THE SPLENIC FLEXURE OF LARGE BOWEL, HIGHLY CONCERNING FOR MALIGNANCY. THERE IS A FUNGATING PORTION, WHICH COMMUNICATES WITH A TUBULAR STRUCTURE, EXTENDING TO AN ADJACENT LOOP OF SMALL BOWEL WITH ADJACENT FATTY STRANDING, WORRISOME FOR POSSIBLE FISTULA. RECOMMEND FOLLOW-UP CT SCAN WITH RECTAL CONTRAST THROUGH THERE AT LEAST THE SPLENIC FLEXURE. 2. LINEAR 1.1 CM HYPERDENSITY WITHIN THE SPLENIC FLEXURE, WHICH MAY REPRESENT INGESTED FOREIGN BODY. 3. ABNORMAL APPEARANCE OF THE LEFT HIP STATUS POST LEFT HIP ARTHROPLASTY. LARGE AMOUNT OF HYPERDENSE MATERIAL IS NOTED MEDIAL TO THE LEFT FEMORAL HEAD COMPONENT, WITH OBLITERATION OF THE ACETABULUM AND PROTRUSION INTO THE LEFT MEDIAL PELVIC WALL. FINDINGS MAY REPRESENT CEMENT EXTRUSION. 4. WEDGE-SHAPED DEFECT WITHIN THE SPLEEN, MOST CONSISTENT WITH FOCAL SPLENIC INFARCT. 12 Lead EKG tracing ordered and reviewed by myself showed: Normal sinus rhythm of 100 bpm and no arrhythmia. CO interval normal. QRS duration normal. No ST segment elevation. Delta waves are present with a Kiran- Parkinson's White type pattern No ST segment depression. No changes consistent with acute ischemia. Patient will be admitted in serious condition to the hospitalist. He will go to the telemetry service. The patient was hyperglycemic. The patient was alert awake and oriented and able to tolerate oral intake. He was given complex carbohydrates and was also given an amp of D50. Critical Care: Time: 65 minutes Treatments/Evaluations: Close monitoring and treatment of unstable vital signs, cardiorespiratory, and neurologic status, while maintaining tight balance of fluid, respiratory, and cardiac interventions. Time does not include performing any of the above billable procedures. Departure Diagnosis: Primary Impression: Rectal hemorrhage Additional Impressions: Hypoglycemia Colonic mass Splenic infarct Condition: Serious FELISHA CAMPBELL MD Aug 02, 2018 07:25
[2018-08-02] MEDS ORDERED: DEXTROSE 50% 50 ML SYRINGE IV STA (08:38)
[2018-08-02] MEDS ORDERED: SOD CHLORIDE 0.9% 100 ML ONE (08:45)
[2018-08-02] MEDS ORDERED: IOHEXOL 300MG/ML 150 ML BTL ONE (08:45)
[2018-08-02] MEDS ORDERED: ACETAMINOPHEN 325 MG TAB PO PRN ×2 (11:00→13:00)
[2018-08-02] MEDS ORDERED: ONDANSETRON 4 MG INJ IV PRN ×2 (11:00→13:00)
[2018-08-02] MEDS ORDERED: DEXTROSE 5%-0.45% NACL 1,000 ML IV SCH (12:48)
[2018-08-02] MEDS ORDERED: MAGNESIUM HYDROXIDE 30ML CUP PO PRN (13:00)
[2018-08-02] MEDS ORDERED: NACL 0.9% 3 ML SYG IV SCH (13:00)
[2018-08-02] MEDS ORDERED: ZOLPIDEM 5 MG TAB PO PRN (13:00)
[2018-08-02] MEDS ORDERED: morphine 2 MG INJ IV PRN (13:00)
[2018-08-02] MEDS ORDERED: DOCUSATE SODIUM 100 MG CAP PO PRN (13:00)
[2018-08-02] MEDS ORDERED: HYDROCODONE/APAP (5/325) TAB PO PRN (13:00)
[2018-08-02] MEDS ORDERED: GLUCOSE GEL 15 GRAM TUBE PO PRN ×2 (13:30)
[2018-08-02] MEDS ORDERED: GLUCAGON 1 MG INJ IM PRN (13:30)
[2018-08-02] MEDS ORDERED: GLUCOSE GEL 15 GRAM TUBE BUCCAL PRN (13:30)
--- NOTE | 2018-08-02 14:11 | CONS ---
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 Last colonoscopy 5 years ago -normal exam History of diverticulitis 10 days ago -treated with antibiotics at [facility] Splenic infarct Diabetes mellitus Chronic kidney disease -on dialysis Hypertension Ejection fraction 35% Plan: RBC scan If actively bleeding recommend IR embolization Surgical consult Monitor H&H Transfuse for hemoglobin less than 7.[address] from [facility] -if not diverticulitis on prior CT will prep for colonoscopy With recent history of diverticulitis colonoscopy is too high risk for perforation Hypaque enema is a high risk for perforation due to recent diverticulitis Patient seen in collaboration with Consultation Date/Type/Reason Admit Date/Time Date of Consultation: Aug 02, 2018 Type of Consult GI Reason for Consultation Hematochezia/mass in the colon Date/Time of Note DATE: 08/02/18 TIME: 13:49 Hx of Present Illness This is a 78-year-old male with a history of diabetes and chronic kidney failure on dialysis who is being admitted for bloody diarrhea. Patient states his symptoms started 10 days ago with diarrhea when patient was hospitalized at [facility] for diverticulitis. Patient just finished antibiotic treatment with Flagyl. Patient developed hematochezia yesterday. CT of the abdomen shows 10 x 6 cm mass and splenic fracture with possible fistula communicating with small intestine. Last colonoscopy was done 5 years ago with no significant findings. Currently patient denies abdominal pain, nausea, vomiting, hematemesis or fever. Past medical history includes diabetes mellitus, chronic kidney failure on dialysis, hypertension, coronary artery disease with ejection fraction 35% and left hip replacement x2 with malalignment. Considering the recent history of diverticulitis patient is not a good candidate for colonoscopy due to risk of perforation for the next 2-months. Hypaque enema should be avoided for the risk of perforation as well. Will request the records from present hospital. If prior CT does not show diverticulitis will prep for col onoscopy on Sunday. Meanwhile will order RBC scan. If actively bleeding recommend IR. Surgical consult is pending. Gastrointestinal: no complaints (See HPI) Past Medical History Diabetes mellitus, chronic kidney disease, hypertension, heart failure, total hip replacement 2 Home Meds Active Scripts Hydrocodone/Acetaminophen ([place] 5-325 Tablet) 1 Each Tablet, 1 EACH PO Q8 PRN for PAIN, #21 TAB Prov:DULCE GALINDO 03/29/17 Reported Medications Midodrine* (Midodrine*) 5 Mg Tablet, 5 MG PO DAILY, TAB THE DAYS OF DIALYSIS 08/02/18 Nortriptyline Hcl* (Nortriptyline Hcl*) 10 Mg Capsule, 10 MG PO TID, CAP 08/02/18 Aspirin* (Aspirin* Chew) 81 Mg Tab.chew, 81 MG PO DAILY, TAB.CHEW 08/02/18 Cholecalciferol* (Vitamin D3*) 1,000 Unit Tablet, 1000 UNIT PO DAILY, TAB 03/28/17 Cyanocobalamin* (Vitamin B12*) Unknown Strength Tab, 1 TAB PO Q MON,FRI, TAB 03/28/17 Sevelamer Carbonate* (Renvela*) 800 Mg Tablet, 0.8 GM PO WITH MEALS BID, TAB 03/28/17 Levothyroxine Sodium* (Synthroid*) 50 Mcg Tablet, 50 MCG PO BEFORE BREAKFAST, #30 TAB 08/21/16 Atorvastatin Calcium* (Atorvastatin Calcium*) 20 Mg Tablet, 20 MG PO QHS, #30 TAB 08/21/16 Folic Acid* (Folic Acid*) 1 Mg Tablet, 1 MG PO DAILY, TAB 08/21/16 Insulin Lispro (Humalog) 100 Unit/1 Ml Cartridge, 0 SQ TID SLIDING SCALES 08/21/16 Insulin Glargine* (Lantus*) 100 Unit/Ml Soln, 20 UNIT SC BID, #1 VIAL 08/21/16 Discontinued Reported Medications Amitriptyline Hcl* (Amitriptyline Hcl*) 75 Mg Tablet, 37.5 MG PO QHS, #30 TAB 08/21/16 Medications Current Medications Dextrose/Sodium Chloride 1,000 ml @ 80 mls/hr [id number] IV ; Start 08/02/18 at 12:48 IV Flush (NS 3 ml) 3 ml PER PROTOCOL IV ; Start 08/02/18 at 13:00 Ondansetron HCl (Zofran Inj) 4 mg Q6H PRN IV NAUSEA/VOMITING; Start 08/02/18 at 13:00 Acetaminophen (Tylenol Tab) 650 mg Q6H PRN PO .PAIN 1-3 OR TEMP; Start 08/02/18 at 13:00 Acetaminophen/ Hydrocodone Bitart ([place] (5/325)) 1 tab Q6H PRN PO .MOD PAIN 4- 6; Start 08/02/18 at 13:00 Morphine Sulfate (morphine) 2 mg Q4H PRN IV .SEVERE PAIN 7-10; Start 08/02/18 at 13:00 Docusate Sodium (Colace) 100 mg Q12H PRN PO .CONSTIPATION; Start 08/02/18 at 13:00 Magnesium Hydroxide (Milk Of Mag) 30 ml DAILY PRN PO .CONSTIPATION; Start 08/02/18 at 13:00 Zolpidem Tartrate (Ambien) 5 mg QHS PRN PO .INSOMNIA; Start 08/02/18 at 13:00 Famotidine (Pepcid) 20 mg DAILY PO ; Start 08/02/18 at 21:00 Diagnostic Test (Pha) (Accu-Chek) 1 ea 02 XX ; Start 08/03/18 at 02:00 Insulin Aspart (Novolog Insulin Pen) NOVOLOG *MILD* ALGORITHM WITH MEALS BEDTIME SC ; Start 08/02/18 at 18:00 Miscellaneous Information 1 ea NOTE XX ; Start 08/02/18 at 13:30 Glucose (Glutose) 15 gm Q15M PRN PO DECREASED GLUCOSE; Start 08/02/18 at 13:30 Glucose (Glutose) 22.5 gm Q15M PRN PO DECREASED GLUCOSE; Start 08/02/18 at 13:30 Dextrose (D50w Syringe) 25 ml Q15M PRN IV DECREASED GLUCOSE; Start 08/02/18 at 13:30 Dextrose (D50w Syringe) 50 ml Q15M PRN IV DECREASED GLUCOSE; Start 08/02/18 at 13:30 Glucagon (Glucagen) 1 mg Q15M PRN IM DECREASED GLUCOSE; Start 08/02/18 at 13:30 Glucose (Glutose) 15 gm Q15M PRN BUCCAL DECREASED GLUCOSE; Start 08/02/18 at 13:30 Allergies: Coded Allergies: hydromorphone (Verified Allergy, Unknown, UNKNOWN, 08/02/18) Past Surgical History Left total hip replacement Family History Significant Family History: no pertinent family hx Social History Alcohol Use: none Smoking Status: Never smoker Drug Use: none Exam/Review of Systems Exam Vitals Vital Signs Date Temp Pulse Resp B/P (MAP) Pulse Ox O2 O2 Flow FiO2 Time Delivery Rate 08/02/18 99 19 110/62 100 Nasal 2.0 13:22 (78) Cannula 08/02/18 98.7 06:35 Exam PHYSICAL EXAMINATION: GENERAL: Well developed, well nourished, alert & oriented x 3, in no acute distress SKIN: No lesions, no stigmata chronic liver disease, no evidence of bleeding d iathesis LYMPHATIC: No palpable lymphadenopathy. HEAD: Normocephalic, atraumatic, no tenderness. EYES: Pupils equal reactive to light and accommodation, full extraocular movements, sclera clear, non-icteric, no discharge. EARS/NOSE AND THROAT: Ears normal, nose normal, oropharynx normal, oral membra reji well hydrated without lesions. NECK: Supple, no masses, thyroid normal, JVP within normal limits, carotids normal without bruits. CHEST: Inspection within normal limits. CARDIOVASCULAR: Heart: Regular rate and rhythm, no murmurs, gallops or rubs. Peripheral pulses present within normal limits, no cyanosis, clubbing or edemas. No pulsatile abdominal mass RESPIRATORY: Lungs clear to auscultation and percussion, no wheezing, no rubs GASTROINTESTINAL AND LIVER: Abdomen: Soft, non tenderness, non-distended, no hernias, no masses, no organomegaly, no ascites, no guarding, no rebound tenderness, normoactive bowel sounds. Rectal: Deferred. GENITOURINARY: Male genitalia within normal limits. EXTREMITIES: No cyanosis, clubbing or edema. Results Result Diagram: 08/02/18 0751 08/02/18 0751 Results 24hrs Laboratory Tests Test 08/02/18 07:13 08/02/18 07:51 08/02/18 08:43 08/02/18 09:25 Stool Occult Blood POSITIVE White Blood Count 11.7 #H Red Blood Count 3.04 L Hemoglobin 9.4 L Hematocrit 30.9 L Mean Corpuscular 101.6 H Volume Mean Corpuscular 30.9 Hemoglobin Mean Corpuscular 30.4 L Hemoglobin Concent Red Cell 17.4 H Distribution Width Platelet Count 253 # Mean Platelet Volume 10.8 H Immature 0.500 H Granulocytes % Neutrophils % 78.5 H Lymphocytes % 8.7 L Monocytes % 10.6 Eosinophils % 1.3 Basophils % 0.4 Nucleated Red Blood 0.0 Cells % Immature 0.060 H Granulocytes # Neutrophils # 9.2 H Lymphocytes # 1.0 Monocytes # 1.2 H Eosinophils # 0.2 Basophils # 0.1 Nucleated Red Blood 0.0 Cells # Prothrombin Time 14.7 Prothrombin Time 1.1 Ratio INR International 1.14 Normalized Ratio Activated 33.4 Partial Thromboplast Time Sodium Level 137 Potassium Level 5.1 Chloride Level 95 L Carbon Dioxide Level 30 Anion Gap 12 Blood Urea Nitrogen 48 H Creatinine 6.67 H Est Glomerular Filtrat Rate mL/min Glucose Level 45 *L Calcium Level 8.2 L Total Bilirubin 0.0 L Direct Bilirubin 0.00 Indirect Bilirubin 0.0 Aspartate Amino 11 L Transf (AST/SGOT) Alanine 14 Aminotransferase (AL T/SGPT) Alkaline Phosphatase 100 Troponin I 0.052 Total Protein 6.2 Albumin 2.9 L Globulin 3.30 H Albumin/Globulin 0.87 Ratio Amylase Level 34 Lipase < 10 L Bedside Glucose 51 L 147 Test 08/02/18 11:34 Bedside Glucose 88 Medications Medication Current Medications Dextrose/Sodium Chloride 1,000 ml @ 80 mls/hr [id number] IV ; Start 08/02/18 at 12:48 IV Flush (NS 3 ml) 3 ml PER PROTOCOL IV ; Start 08/02/18 at 13:00 Ondansetron HCl (Zofran Inj) 4 mg Q6H PRN IV NAUSEA/VOMITING; Start 08/02/18 at 13:00 Acetaminophen (Tylenol Tab) 650 mg Q6H PRN PO .PAIN 1-3 OR TEMP; Start 08/02/18 at 13:00 Acetaminophen/ Hydrocodone Bitart ([place] (5/325)) 1 tab Q6H PRN PO .MOD PAIN 4- 6; Start 08/02/18 at 13:00 Morphine Sulfate (morphine) 2 mg Q4H PRN IV .SEVERE PAIN 7-10; Start 08/02/18 at 13:00 Docusate Sodium (Colace) 100 mg Q12H PRN PO .CONSTIPATION; Start 08/02/18 at 13:00 Magnesium Hydroxide (Milk Of Mag) 30 ml DAILY PRN PO .CONSTIPATION; Start 08/02/18 at 13:00 Zolpidem Tartrate (Ambien) 5 mg QHS PRN PO .INSOMNIA; Start 08/02/18 at 13:00 Famotidine (Pepcid) 20 mg DAILY PO ; Start 08/02/18 at 21:00 Diagnostic Test (Pha) (Accu-Chek) 1 ea 02 XX ; Start 08/03/18 at 02:00 Insulin Aspart (Novolog Insulin Pen) NOVOLOG *MILD* ALGORITHM WITH MEALS BEDTIME SC ; Start 08/02/18 at 18:00 Miscellaneous Information 1 ea NOTE XX ; Start 08/02/18 at 13:30 Glucose (Glutose) 15 gm Q15M PRN PO DECREASED GLUCOSE; Start 08/02/18 at 13:30 Glucose (Glutose) 22.5 gm Q15M PRN PO DECREASED GLUCOSE; Start 08/02/18 at 13:30 Dextrose (D50w Syringe) 25 ml Q15M PRN IV DECREASED GLUCOSE; Start 08/02/18 at 13:30 Dextrose (D50w Syringe) 50 ml Q15M PRN IV DECREASED GLUCOSE; Start 08/02/18 at 13:30 Glucagon (Glucagen) 1 mg Q15M PRN IM DECREASED GLUCOSE; Start 08/02/18 at 13:30 Glucose (Glutose) 15 gm Q15M PRN BUCCAL DECREASED GLUCOSE; Start 08/02/18 at 13:30 VALERIY ALVAREZ ROSTER CLERK Aug 02, 2018 13:59
--- NOTE | 2018-08-02 15:00 | HP ---
Date/Time of Note Date/Time of Note DATE: 08/02/18 TIME: 14:48 Assessment/Plan VTE Prophylaxis SCD applied (from Nsg): Yes Pharmacological prophylaxis: NA/contraindicated Pharm contraindication: bleeding Lines/Catheters IV Catheter Type (from Nrsg): Mid Line Assessment/Plan Hospital Course 1. 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 Cam obtained 2. End-stage renal disease Nephrology has been consulted 3. Diabetes Sliding scale for now as sugars are low 4. Esophagitis Continue PPI 5. Hypothyroidism Continue home Synthroid Prophylaxis: SCDs Result Diagram: 08/02/18 0751 08/02/18 0751 Results 24hrs Laboratory Tests Test 08/02/18 07:13 08/02/18 07:51 08/02/18 08:43 08/02/18 09:25 Stool Occult Blood POSITIVE White Blood Count 11.7 #H Red Blood Count 3.04 L Hemoglobin 9.4 L Hematocrit 30.9 L Mean Corpuscular 101.6 H Volume Mean Corpuscular 30.9 Hemoglobin Mean Corpuscular 30.4 L Hemoglobin Concent Red Cell 17.4 H Distribution Width Platelet Count 253 # Mean Platelet Volume 10.8 H Immature 0.500 H Granulocytes % Neutrophils % 78.5 H Lymphocytes % 8.7 L Monocytes % 10.6 Eosinophils % 1.3 Basophils % 0.4 Nucleated Red Blood 0.0 Cells % Immature 0.060 H Granulocytes # Neutrophils # 9.2 H Lymphocytes # 1.0 Monocytes # 1.2 H Eosinophils # 0.2 Basophils # 0.1 Nucleated Red Blood 0.0 Cells # Prothrombin Time 14.7 Prothrombin Time 1.1 Ratio INR International 1.14 Normalized Ratio Activated 33.4 Partial Thromboplast Time Sodium Level 137 Potassium Level 5.1 Chloride Level 95 L Carbon Dioxide Level 30 Anion Gap 12 Blood Urea Nitrogen 48 H Creatinine 6.67 H Est Glomerular Filtrat Rate mL/min Glucose Level 45 *L Calcium Level 8.2 L Total Bilirubin 0.0 L Direct Bilirubin 0.00 Indirect Bilirubin 0.0 Aspartate Amino 11 L Transf (AST/SGOT) Alanine 14 Aminotransferase (AL T/SGPT) Alkaline Phosphatase 100 Troponin I 0.052 Total Protein 6.2 Albumin 2.9 L Globulin 3.30 H Albumin/Globulin 0.87 Ratio Amylase Level 34 Lipase < 10 L Bedside Glucose 51 L 147 Test 08/02/18 11:34 Bedside Glucose 88 HPI/ROS Admit Date/Time Admit Date/Time August 02, 2018 Hx of Present Illness Patient is a 76-year-old male with a history of hypertension, dyslipidemia, hypothyroidism, diabetes, esophagitis/duodenitis/gastritis, upper GI bleed as well as end-stage renal disease on dialysis. Patient presents with 2 weeks of progressive weakness and difficulty ambulating as well as hematochezia. Patient has been reporting loose stools for the past several weeks. In the ER CT abdomen was done which showed a large colonic mass at the splenic flexure. Patient was reportedly at [facility] several weeks ago, diagnosis at that time was unclear. Patient currently has no other acute complaints. ROS Constitutional: no complaints, improved Eyes: no complaints ENT: no complaints Respiratory: no complaints Cardiovascular: no complaints Gastrointestinal: blood, diarrhea Genitourinary: no complaints Musculoskeletal: no complaints Skin: no complaints Neurologic: no complaints Endocrine: no complaints Lymphatic: no complaints Psychological: no complaints, nl mood/affect Immunologic: no complaints PMH/Family/Social Past Medical History As per [facility] Medications Current Medications Dextrose/Sodium Chloride 1,000 ml @ 80 mls/hr [id number] IV ; Start 08/02/18 at 12:48 IV Flush (NS 3 ml) 3 ml PER PROTOCOL IV ; Start 08/02/18 at 13:00 Ondansetron HCl (Zofran Inj) 4 mg Q6H PRN IV NAUSEA/VOMITING; Start 08/02/18 at 13:00 Acetaminophen (Tylenol Tab) 650 mg Q6H PRN PO .PAIN 1-3 OR TEMP; Start 08/02/18 at 13:00 Acetaminophen/ Hydrocodone Bitart ([place] (5/325)) 1 tab Q6H PRN PO .MOD PAIN 4- 6; Start 08/02/18 at 13:00 Morphine Sulfate (morphine) 2 mg Q4H PRN IV .SEVERE PAIN 7-10; Start 08/02/18 at 13:00 Docusate Sodium (Colace) 100 mg Q12H PRN PO .CONSTIPATION; Start 08/02/18 at 13:00 Magnesium Hydroxide (Milk Of Mag) 30 ml DAILY PRN PO .CONSTIPATION; Start 08/02/18 at 13:00 Zolpidem Tartrate (Ambien) 5 mg QHS PRN PO .INSOMNIA; Start 08/02/18 at 13:00 Famotidine (Pepcid) 20 mg DAILY PO ; Start 08/02/18 at 21:00 Diagnostic Test (Pha) (Accu-Chek) 1 ea 02 XX ; Start 08/03/18 at 02:00 Insulin Aspart (Novolog Insulin Pen) NOVOLOG *MILD* ALGORITHM WITH MEALS BEDTIME SC ; Start 08/02/18 at 18:00 Miscellaneous Information 1 ea NOTE XX ; Start 08/02/18 at 13:30 Glucose (Glutose) 15 gm Q15M PRN PO DECREASED GLUCOSE; Start 08/02/18 at 13:30 Glucose (Glutose) 22.5 gm Q15M PRN PO DECREASED GLUCOSE; Start 08/02/18 at 13:30 Dextrose (D50w Syringe) 25 ml Q15M PRN IV DECREASED GLUCOSE; Start 08/02/18 at 13:30 Dextrose (D50w Syringe) 50 ml Q15M PRN IV DECREASED GLUCOSE; Start 08/02/18 at 13:30 Glucagon (Glucagen) 1 mg Q15M PRN IM DECREASED GLUCOSE; Start 08/02/18 at 13:30 Glucose (Glutose) 15 gm Q15M PRN BUCCAL DECREASED GLUCOSE; Start 08/02/18 at 13:30 Coded Allergies: hydromorphone (Verified Allergy, Unknown, UNKNOWN, 08/02/18) Past Surgical History Past Surgical Hx: other (Hip replacement) Family History Significant Family History: no pertinent family hx Social History Alcohol Use: none Smoking Status: Never smoker Drug Use: none Exam/Review of Systems Vital Signs Vitals Vital Signs Date Temp Pulse Resp B/P (MAP) Pulse Ox O2 O2 Flow FiO2 Time Delivery Rate 08/02/18 99 19 110/62 100 Nasal 2.0 13:22 (78) Cannula 08/02/18 98.7 06:35 Exam Constitutional: alert, oriented Respiratory: clear to auscultation Cardiovascular: regular rate and rhythm Gastrointestinal: soft; No distended Musculoskeletal: nl extremities to inspection MILAGRO KENNEDY Aug 02, 2018 14:59
[2018-08-02] MEDS: INSULIN ASPART [NOVOLOG] 3 ML PEN SC SCH ×2 (18:00→21:00)
[2018-08-02] MEDS ORDERED: MIDODRINE 5 MG TAB PO SCH (18:00)
[2018-08-02 18:14] VITALS: BP 97/63; PULSE 98; RESP 18
[2018-08-02] MEDS: SEVELAMER CARBONATE 0.8 GM PKT PO SCH (18:41)
[2018-08-02 19:35] VITALS: BP 94/66; PULSE 90; RESP 20
[2018-08-02 20:12] VITALS: Ht 175.3 cm; Wt 78.2 kg
[2018-08-02 20:46] VITALS: PULSE 101
[2018-08-02] MEDS: NORTRIPTYLINE 10 MG CAP PO SCH (21:00)
--- NOTE | 2018-08-02 21:36 | CONS ---
DATE OF ADMISSION: 08/02/2018 DATE OF CONSULTATION: REASON FOR CONSULTATION: End-stage renal disease, on hemodialysis. HISTORY OF PRESENTING ILLNESS: This is a 78-year-old male with a past medical history of diabetes; e nd-stage renal disease on hemodialysis Sunday, Sunday, Sunday; hypertension; congestive heart fail ure, EF of 35%, presented to the emergency department complaining of bloody diarrhea. The patient sa id that his symptoms started 10 days ago with diarrhea and was hospitalized at [facility], just finished antibiotic treatment, developed hematochezia yesterday and came to the emergency department . The patient had last colonoscopy about 5 years ago. The patient did not get his hemodialysis toda y and, instead, he came to the hospital. On arrival to ED, vital signs were blood pressure of 88/67, heart rate of 99, temperature is 98.7. Labs showed BUN of 48, creatinine 6.67, potassium of 5.1, wh ite count 11.7, hemoglobin 9.4, platelet count 253. The patient was stool occult positive. He had a CT of the abdomen and pelvis that showed a large irregular mass measuring 10.6 x 6.2 cm along the sp lenic flexure of the large bowel, highly concerning for malignancy, fungating portion communicates th rough the tubular structure, extended duration loop, fascial stranding worrisome for fistula, linear hyperdensity within the splenic flexure represents a foreign body, abnormal appearance of left hip st atus post left hip arthroplasty, splenic infarct. The patient was admitted for further management [facility] hemodialysis schedule. The patient goes to hemodialysis Sunday, Sunday, Sunday, and goes for d ialysis for 3 hours and 15 minutes. PAST SURGICAL HISTORY: History of back surgery x2, partial hip replacement. SOCIAL HISTORY: No history of smoking, alcohol or any drug use. FAMILY HISTORY: Not available. HOME MEDICATIONS: 1. Midodrine 5 mg every day. 2. Atorvastatin 20 mg. 3. Aspirin 81 mg. 4. Nortriptyline 10 mg b.i.d. 5. Renagel 0.8 t.i.d. 6. Lantus. 7. Lispro. 8. Levothyroxine. 9. Cholecalciferol. 10. Cyanocobalamin. 11. Folic acid. REVIEW OF SYSTEMS: The patient complains of bloody diarrhea. Denies any abdominal pain. Denies any headache, any blurry vision. Denies any nausea, vomiting, chest pain, shortness of breath. Had low er extremity edema before. PHYSICAL EXAMINATION: VITAL SIGNS: Blood pressure 94/66, heart rate 99, respirations 19, saturating 100% on 2 liters. GENERAL: The patient is awake, alert, oriented and does not appear to be in any acute distress. HEENT: Pupils equal, round, reactive to light. NECK: Supple. No JVD. HEART: Regular rate and rhythm. LUNGS: Decreased breath sounds bilaterally. ABDOMEN: Soft, nontender, nondistended, positive normoactive bowel sounds. EXTREMITIES: There is 1+ pitting edema. DIAGNOSTIC DATA: Sodium 137, potassium 5.1, chloride 95, bicarbonate 30, BUN of 48, creatinine 6.67, glucose 45. White count 11.7, hemoglobin 9.4. CT scan as above. ASSESSMENT: This is a 78-year-old male who presented with: 1. 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 2. End-stage renal disease, on hemodialysis. 3. Hypotension. 4. History of congestive heart failure. 5. Hypercholesterolemia. 6. Total hip replacement. 7. Leukocytosis. 8. Hypoglycemia. PLAN: At this period of time, the patient is admitted to telemetry. The patient has been seen by GI and is getting RBC span. If actively bleeding, he will have IR embolization. The patient will be g etting hemodialysis, which the patient will receive tomorrow. We will continue to follow the patient with you. Rest of the treatment depend on the patient's hospitalization course. Dictated By: NNEKA PARK/REBECCA Conf#: [id number] DID#: [id number] CC: MILAGRO KENNEDY MD;*EndCC*
[2018-08-02] MEDS: FAMOTIDINE 20 MG TAB PO SCH (21:49)
[2018-08-02 23:33] VITALS: BP 119/55; PULSE 106; RESP 20
[2018-08-03] VITALS (25 sets, daily range): BP systolic 92–154; BP diastolic 49–71; PULSE 94–109; RESP 18–20
[2018-08-03] MEDS: ACCU-CHEK XX SCH (01:41)
[2018-08-03] MEDS: LEVOTHYROXINE 50 MCG TAB PO SCH (06:29)
[2018-08-03] MEDS: FAMOTIDINE 20 MG TAB PO SCH (08:19)
[2018-08-03] MEDS: FOLIC ACID 1 MG TAB PO SCH (08:19)
[2018-08-03] MEDS: SEVELAMER CARBONATE 0.8 GM PKT PO SCH ×3 (08:19→17:15)
[2018-08-03] MEDS: NORTRIPTYLINE 10 MG CAP PO SCH ×3 (08:20→20:37)
[2018-08-03] MEDS: CHOLECALCIFEROL 1,000 UNIT TAB PO SCH (08:20)
[2018-08-03] MEDS: INSULIN ASPART [NOVOLOG] 3 ML PEN SC SCH ×4 (08:27→20:36)
[2018-08-03] MEDS ORDERED: SODIUM POLYSTYRENE 15 GM KIT (POWDER + SORBITOL) GTB ONE (09:00)
[2018-08-03] MEDS: MIDODRINE 5 MG TAB PO SCH (10:08)
--- NOTE | 2018-08-03 11:11 | PN ---
Date/Time of Note Date/Time of Note DATE: 08/03/18 TIME: 11:09 Assessment/Plan VTE Prophylaxis Risk score (from [facility] [place] risk: 1 SCD applied (from Ns): Yes Pharmacological prophylaxis: NA/contraindicated Pharm contraindication: surgical contra Lines/Catheters IV [facility] [place] Assessment/Plan Hospital Course 1. 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 Cam appreciated, patient will likely need a hemicolectomy next week 2. End-stage renal disease Nephrology consultation appreciate 3. Diabetes Resume Lantus but at a decreased dose relative to home dose as sugars have increased, continue sliding scale 4. Esophagitis Continue PPI 5. Hypothyroidism Continue home Synthroid Prophylaxis: SCDs Result Diagram: 08/03/18 0638 08/03/18 0638 Results 24hrs Laboratory Tests Test 08/02/18 11:34 08/02/18 17:56 08/02/18 22:16 08/03/18 01:32 Bedside Glucose 88 93 156 251 H Test 08/03/18 02:20 08/03/18 06:38 08/03/18 08:01 Stool Occult Blood POSITIVE White Blood Count 12.4 H Red Blood Count 2.99 L Hemoglobin 9.3 L Hematocrit 30.6 L Mean Corpuscular 102.3 H Volume Mean Corpuscular 31.1 Hemoglobin Mean Corpuscular 30.4 L Hemoglobin Concent Red Cell 17.4 H Distribution Width Platelet Count 264 Mean Platelet Volume 10.6 H Immature 0.400 Granulocytes % Neutrophils % 81.5 H Lymphocytes % 6.4 L Monocytes % 9.0 Eosinophils % 1.9 Basophils % 0.8 Nucleated Red Blood 0.0 Cells % Immature 0.050 H Granulocytes # Neutrophils # 10.1 H Lymphocytes # 0.8 Monocytes # 1.1 H Eosinophils # 0.2 Basophils # 0.1 Nucleated Red Blood 0.0 Cells # Sodium Level 135 Potassium Level 6.2 *H Chloride Level 96 L Carbon Dioxide Level 24 Anion Gap 15 H Blood Urea Nitrogen 59 H Creatinine 7.88 H Est Glomerular Filtrat Rate mL/min Glucose Level 247 #H Hemoglobin A1c 6.4 H Calcium Level 8.2 L Phosphorus Level 7.8 H Magnesium Level 1.9 Bedside Glucose 233 H Subjective 24 Hr Interval Summary Constitutional: no complaints Exam/Review of Systems Exam Vitals Vital Signs Date Temp Pulse Resp B/P (MAP) Pulse Ox O2 O2 Flow FiO2 Time Delivery Rate 08/03/18 105 08:00 08/03/18 97.8 18 119/65 94 07:13 (83) 08/02/18 Room Air 17:53 08/02/18 2.0 15:13 Intake and Output 08/02/18 08/02/18 08/03/18 1515:00 23:00 07:00 IntakeIntake Total 500 ml 300 ml BalanceBalance 500 ml 300 ml Constitutional: alert, oriented Respiratory: clear to auscultation Cardiovascular: regular rate and rhythm Gastrointestinal: soft; No distended Musculoskeletal: nl extremities to inspection Results Results 24hrs Laboratory Tests Test 08/02/18 11:34 08/02/18 17:56 08/02/18 22:16 08/03/18 01:32 Bedside Glucose 88 93 156 251 H Test 08/03/18 02:20 08/03/18 06:38 08/03/18 08:01 Stool Occult Blood POSITIVE White Blood Count 12.4 H Red Blood Count 2.99 L Hemoglobin 9.3 L Hematocrit 30.6 L Mean Corpuscular 102.3 H Volume Mean Corpuscular 31.1 Hemoglobin Mean Corpuscular 30.4 L Hemoglobin Concent Red Cell 17.4 H Distribution Width Platelet Count 264 Mean Platelet Volume 10.6 H Immature 0.400 Granulocytes % Neutrophils % 81.5 H Lymphocytes % 6.4 L Monocytes % 9.0 Eosinophils % 1.9 Basophils % 0.8 Nucleated Red Blood 0.0 Cells % Immature 0.050 H Granulocytes # Neutrophils # 10.1 H Lymphocytes # 0.8 Monocytes # 1.1 H Eosinophils # 0.2 Basophils # 0.1 Nucleated Red Blood 0.0 Cells # Sodium Level 135 Potassium Level 6.2 *H Chloride Level 96 L Carbon Dioxide Level 24 Anion Gap 15 H Blood Urea Nitrogen 59 H Creatinine 7.88 H Est Glomerular Filtrat Rate mL/min Glucose Level 247 #H Hemoglobin A1c 6.4 H Calcium Level 8.2 L Phosphorus Level 7.8 H Magnesium Level 1.9 Bedside Glucose 233 H Medications Medication Current Medications IV Flush (NS 3 ml) 3 ml PER PROTOCOL IV ; Start 08/02/18 at 13:00 Ondansetron HCl (Zofran Inj) 4 mg Q6H PRN IV NAUSEA/VOMITING; Start 08/02/18 at 13:00 Acetaminophen (Tylenol Tab) 650 mg Q6H PRN PO .PAIN 1-3 OR TEMP; Start 08/02/18 at 13:00 Acetaminophen/ Hydrocodone Bitart ([place] (5/325)) 1 tab Q6H PRN PO .MOD PAIN 4- 6; Start 08/02/18 at 13:00 Morphine Sulfate (morphine) 2 mg Q4H PRN IV .SEVERE PAIN 7-10; Start 08/02/18 at 13:00 Docusate Sodium (Colace) 100 mg Q12H PRN PO .CONSTIPATION; Start 08/02/18 at 13:00 Magnesium Hydroxide (Milk Of Mag) 30 ml DAILY PRN PO .CONSTIPATION; Start 08/02/18 at 13:00 Zolpidem Tartrate (Ambien) 5 mg QHS PRN PO .INSOMNIA; Start 08/02/18 at 13:00 Famotidine (Pepcid) 20 mg DAILY PO Last administered on 08/03/18at 08:19; Admin Dose 20 MG; Start 08/02/18 at 21:00 Diagnostic Test (Pha) (Accu-Chek) 1 ea 02 XX ; Start 08/03/18 at 02:00 Insulin Aspart (Novolog Insulin Pen) NOVOLOG *MILD* ALGORITHM WITH MEALS BEDTIME SC Last administered on 08/03/18at 08:27; Admin Dose 3 UNIT; Start 08/02/18 at 18:00 Miscellaneous Information 1 ea NOTE XX ; Start 08/02/18 at 13:30 Glucose (Glutose) 15 gm Q15M PRN PO DECREASED GLUCOSE; Start 08/02/18 at 13:30 Glucose (Glutose) 22.5 gm Q15M PRN PO DECREASED GLUCOSE; Start 08/02/18 at 13:30 Dextrose (D50w Syringe) 25 ml Q15M PRN IV DECREASED GLUCOSE; Start 08/02/18 at 13:30 Dextrose (D50w Syringe) 50 ml Q15M PRN IV DECREASED GLUCOSE; Start 08/02/18 at 13:30 Glucagon (Glucagen) 1 mg Q15M PRN IM DECREASED GLUCOSE; Start 08/02/18 at 13:30 Glucose (Glutose) 15 gm Q15M PRN BUCCAL DECREASED GLUCOSE; Start 08/02/18 at 13:30 Cholecalciferol (Vitamin D) 1,000 unit DAILY PO Last administered on 08/03/18 08:20; Admin Dose 1,000 UNIT; Start 08/03/18 at 09:00 Folic Acid (Folic Acid) 1 mg DAILY PO Last administered on 08/03/18 08:19; Admin Dose 1 MG; Start 08/03/18 at 09:00 Levothyroxine Sodium (Synthroid) 50 mcg BEFORE BREAKFAST PO Last administered on 08/03/18 06:29; Admin Dose 50 MCG; Start 08/03/18 at 07:00 Nortriptyline HCl (Aventyl) 10 mg TID PO Last administered on 08/03/18 08:20; Admin Dose 10 MG; Start 08/02/18 at 21:00 Sevelamer Carbonate (Renvela) 0.8 gm AC MEALS PO Last administered on 08/03/18 08:19; Admin Dose 0.8 GM; Start 08/02/18 at 17:30 Midodrine (Proamatine) 5 mg ON DIALYSIS DAYS PO Last administered on 08/03/18 10:08; Admin Dose 5 MG; Start 08/02/18 at 18:00 MILAGRO KENNEDY Aug 03, 2018 11:11
--- NOTE | 2018-08-03 12:13 | CONS ---
Assessment/Plan Assessment/Plan Hospital Course (Demo Recall) 1. End-stage renal disease, on hemodialysis, TueTHSAt.. 2. 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 Hypotension. 4. History of congestive heart failure. 5. Hypercholesterolemia. 6. Total hip replacement. 7. Leukocytosis. 8. Hypoglycemia. 9. MAcrocytic hypochromic Anemia mixed etiology, recent blood loss and 2/2 kidney disease 10. Hypothyroidism Assessment/Plan (Daily) -b12 level -telemetry. -avoid nephrotoxic drugs -HD Gabriele, AlejandrinaSAt, one today. . -c/w Roman Consultation Date/Type/Reason Admit Date/Time Aug 02, 2018 at 10:57 Initial Consult Date 08/02/18 Type of Consult nephrology Reason for Consultation Dr Pimentel Date/Time of Note DATE: 08/03/18 TIME: 12:07 24 HR Interval Summary Free Text/Dictation diarrhea Exam/Review of Systems Exam Vitals Vital Signs Date Temp Pulse Resp B/P (MAP) Pulse Ox O2 O2 Flow FiO2 Time Delivery Rate 08/03/18 94 11:55 08/03/18 98.2 18 96/51 (66) 95 11:39 08/03/18 Room Air 10:55 08/02/18 2.0 15:13 Intake and Output 08/02/18 08/02/18 08/03/18 1515:00 23:00 07:00 IntakeIntake Total 500 ml 300 ml BalanceBalance 500 ml 300 ml Exam left arm AV shunt Constitutional: alert, oriented Cardiovascular: regular rate and rhythm Gastrointestinal: soft, distended Results Result Diagram: 08/03/18 0638 08/03/18 0638 Results 24hrs Laboratory Tests Test 08/02/18 17:56 08/02/18 22:16 08/03/18 01:32 08/03/18 02:20 Bedside Glucose 93 156 251 H Stool Occult Blood POSITIVE Test 08/03/18 06:38 08/03/18 08:01 08/03/18 11:41 White Blood Count 12.4 H Red Blood Count 2.99 L Hemoglobin 9.3 L Hematocrit 30.6 L Mean Corpuscular 102.3 H Volume Mean Corpuscular 31.1 Hemoglobin Mean Corpuscular 30.4 L Hemoglobin Concent Red Cell 17.4 H Distribution Width Platelet Count 264 Mean Platelet Volume 10.6 H Immature 0.400 Granulocytes % Neutrophils % 81.5 H Lymphocytes % 6.4 L Monocytes % 9.0 Eosinophils % 1.9 Basophils % 0.8 Nucleated Red Blood 0.0 Cells % Immature 0.050 H Granulocytes # Neutrophils # 10.1 H Lymphocytes # 0.8 Monocytes # 1.1 H Eosinophils # 0.2 Basophils # 0.1 Nucleated Red Blood 0.0 Cells # Sodium Level 135 Potassium Level 6.2 *H Chloride Level 96 L Carbon Dioxide Level 24 Anion Gap 15 H Blood Urea Nitrogen 59 H Creatinine 7.88 H Est Glomerular Filtrat Rate mL/min Glucose Level 247 #H Hemoglobin A1c 6.4 H Calcium Level 8.2 L Phosphorus Level 7.8 H Magnesium Level 1.9 Bedside Glucose 233 H 189 Medications Medication Current Medications IV Flush (NS 3 ml) 3 ml PER PROTOCOL IV ; Start 08/02/18 at 13:00 Ondansetron HCl (Zofran Inj) 4 mg Q6H PRN IV NAUSEA/VOMITING; Start 08/02/18 at 13:00 Acetaminophen (Tylenol Tab) 650 mg Q6H PRN PO .PAIN 1-3 OR TEMP; Start 08/02/18 at 13:00 Acetaminophen/ Hydrocodone Bitart ([place] (5/325)) 1 tab Q6H PRN PO .MOD PAIN 4- 6; Start 08/02/18 at 13:00 Morphine Sulfate (morphine) 2 mg Q4H PRN IV .SEVERE PAIN 7-10; Start 08/02/18 at 13:00 Docusate Sodium (Colace) 100 mg Q12H PRN PO .CONSTIPATION; Start 08/02/18 at 13:00 Magnesium Hydroxide (Milk Of Mag) 30 ml DAILY PRN PO .CONSTIPATION; Start 08/02/18 at 13:00 Zolpidem Tartrate (Ambien) 5 mg QHS PRN PO .INSOMNIA; Start 08/02/18 at 13:00 Famotidine (Pepcid) 20 mg DAILY PO Last administered on 08/03/18at 08:19; Admin Dose 20 MG; Start 08/02/18 at 21:00 Diagnostic Test (Pha) (Accu-Chek) 1 ea 02 XX ; Start 08/03/18 at 02:00 Insulin Aspart (Novolog Insulin Pen) NOVOLOG *MILD* ALGORITHM WITH MEALS BEDTIME SC Last administered on 08/03/18at 08:27; Admin Dose 3 UNIT; Start 08/02/18 at 18:00 Miscellaneous Information 1 ea NOTE XX ; Start 08/02/18 at 13:30 Glucose (Glutose) 15 gm Q15M PRN PO DECREASED GLUCOSE; Start 08/02/18 at 13:30 Glucose (Glutose) 22.5 gm Q15M PRN PO DECREASED GLUCOSE; Start 08/02/18 at 13:30 Dextrose (D50w Syringe) 25 ml Q15M PRN IV DECREASED GLUCOSE; Start 08/02/18 at 13:30 Dextrose (D50w Syringe) 50 ml Q15M PRN IV DECREASED GLUCOSE; Start 08/02/18 at 13:30 Glucagon (Glucagen) 1 mg Q15M PRN IM DECREASED GLUCOSE; Start 08/02/18 at 13:30 Glucose (Glutose) 15 gm Q15M PRN BUCCAL DECREASED GLUCOSE; Start 08/02/18 at 13:30 Cholecalciferol (Vitamin D) 1,000 unit DAILY PO Last administered on 08/03/18at 08:20; Admin Dose 1,000 UNIT; Start 08/03/18 at 09:00 Folic Acid (Folic Acid) 1 mg DAILY PO Last administered on 08/03/18at 08:19; Admin Dose 1 MG; Start 08/03/18 at 09:00 Levothyroxine Sodium (Synthroid) 50 mcg BEFORE BREAKFAST PO Last administered on 08/03/18at 06:29; Admin Dose 50 MCG; Start 08/03/18 at 07:00 Nortriptyline HCl (Aventyl) 10 mg TID PO Last administered on 08/03/18at 08:20; Admin Dose 10 MG; Start 08/02/18 at 21:00 Sevelamer Carbonate (Renvela) 0.8 gm AC MEALS PO Last administered on 08/03/18 08:19; Admin Dose 0.8 GM; Start 08/02/18 at 17:30 Midodrine (Proamatine) 5 mg ON DIALYSIS DAYS PO Last administered on 08/03/18at 10:08; Admin Dose 5 MG; Start 08/02/18 at 18:00 Insulin Glargine (Lantus) 15 units DAILY@0800 SC ; Start 08/03/18 at 12:00 TU CARTER Aug 03, 2018 12:13
[2018-08-03] MEDS: INSULIN GLARGINE [LANTus] (100 UNITS/ML) SYG SC SCH (12:32)
--- NOTE | 2018-08-03 14:34 | CONS ---
Assessment/Plan Assessment/Plan Hospital Course (Demo Recall) Lower GI hemorrhage secondary to colonic mass, unclear whether this is malignancy or diverticular process. Question of fistula between large and small bowel. History of normal colonoscopy 5 years ago. Ejection fraction 35%. On hemodialysis. Our obesity. Plan the patient will have colonoscopy in the next couple of days. At that time we can determine whether this is malignancy or diverticular inflammatory process. I discussed with the patient likelihood of resection being recommended but we will await final pathology and findings at time of endoscopy. 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 Patient was at [facility] last week details are unknown initially was thought due to his diverticulitis but the details of this are not clear. Patient is noted on CAT scan to have a large mass near the splenic flexure with possible fistula to the surrounding small bowel. Unclear whether this is divert icular process or other tumor. Patient states that he had a normal colonoscopy 5 years ago. Patient had robotic cholecystectomy approximately 10 years ago. Past Medical History Home Meds Active Scripts Hydrocodone/Acetaminophen ([place] 5-325 Tablet) 1 Each Tablet, 1 EACH PO Q8 PRN for PAIN, #21 TAB Prov:DULCE GALINDO 03/29/17 Reported Medications Midodrine* (Midodrine*) 5 Mg Tablet, 5 MG PO DAILY, TAB THE DAYS OF DIALYSIS 08/02/18 Nortriptyline Hcl* (Nortriptyline Hcl*) 10 Mg Capsule, 10 MG PO TID, CAP 08/02/18 Aspirin* (Aspirin* Chew) 81 Mg Tab.chew, 81 MG PO DAILY, TAB.CHEW 08/02/18 Cholecalciferol* (Vitamin D3*) 1,000 Unit Tablet, 1000 UNIT PO DAILY, TAB 03/28/17 Cyanocobalamin* (Vitamin B12*) Unknown Strength Tab, 1 TAB PO Q MON,FRI, TAB 03/28/17 Sevelamer Carbonate* (Renvela*) 800 Mg Tablet, 0.8 GM PO WITH MEALS BID, TAB 03/28/17 Levothyroxine Sodium* (Synthroid*) 50 Mcg Tablet, 50 MCG PO BEFORE BREAKFAST, #30 TAB 08/21/16 Atorvastatin Calcium* (Atorvastatin Calcium*) 20 Mg Tablet, 20 MG PO QHS, #30 TAB 08/21/16 Folic Acid* (Folic Acid*) 1 Mg Tablet, 1 MG PO DAILY, TAB 08/21/16 Insulin Lispro (Humalog) 100 Unit/1 Ml Cartridge, 0 SQ TID SLIDING SCALES 08/21/16 Insulin Glargine* (Lantus*) 100 Unit/Ml Soln, 20 UNIT SC BID, #1 VIAL 08/21/16 Discontinued Reported Medications Amitriptyline Hcl* (Amitriptyline Hcl*) 75 Mg Tablet, 37.5 MG PO QHS, #30 TAB 08/21/16 Medications Current Medications IV Flush (NS 3 ml) 3 ml PER PROTOCOL IV ; Start 08/02/18 at 13:00 Ondansetron HCl (Zofran Inj) 4 mg Q6H PRN IV NAUSEA/VOMITING; Start 08/02/18 at 13:00 Acetaminophen (Tylenol Tab) 650 mg Q6H PRN PO .PAIN 1-3 OR TEMP; Start 08/02/18 at 13:00 Acetaminophen/ Hydrocodone Bitart ([place] (5/325)) 1 tab Q6H PRN PO .MOD PAIN 4- 6; Start 08/02/18 at 13:00 Morphine Sulfate (morphine) 2 mg Q4H PRN IV .SEVERE PAIN 7-10; Start 08/02/18 at 13:00 Docusate Sodium (Colace) 100 mg Q12H PRN PO .CONSTIPATION; Start 08/02/18 at 13:00 Magnesium Hydroxide (Milk Of Mag) 30 ml DAILY PRN PO .CONSTIPATION; Start 08/02/18 at 13:00 Zolpidem Tartrate (Ambien) 5 mg QHS PRN PO .INSOMNIA; Start 08/02/18 at 13:00 Famotidine (Pepcid) 20 mg DAILY PO Last administered on 08/03/18at 08:19; Admin Dose 20 MG; Start 08/02/18 at 21:00 Diagnostic Test (Pha) (Accu-Chek) 1 ea 02 XX ; Start 08/03/18 at 02:00 Insulin Aspart (Novolog Insulin Pen) NOVOLOG *MILD* ALGORITHM WITH MEALS BEDTIME SC Last administered on 08/03/18at 12:32; Admin Dose 2 UNIT; Start 08/02/18 at 18:00 Miscellaneous Information 1 ea NOTE XX ; Start 08/02/18 at 13:30 Glucose (Glutose) 15 gm Q15M PRN PO DECREASED GLUCOSE; Start 08/02/18 at 13:30 Glucose (Glutose) 22.5 gm Q15M PRN PO DECREASED GLUCOSE; Start 08/02/18 at 13:30 Dextrose (D50w Syringe) 25 ml Q15M PRN IV DECREASED GLUCOSE; Start 08/02/18 at 13:30 Dextrose (D50w Syringe) 50 ml Q15M PRN IV DECREASED GLUCOSE; Start 08/02/18 at 13:30 Glucagon (Glucagen) 1 mg Q15M PRN IM DECREASED GLUCOSE; Start 08/02/18 at 13:30 Glucose (Glutose) 15 gm Q15M PRN BUCCAL DECREASED GLUCOSE; Start 08/02/18 at 13:30 Cholecalciferol (Vitamin D) 1,000 unit DAILY PO Last administered on 08/03/18 08:20; Admin Dose 1,000 UNIT; Start 08/03/18 at 09:00 Folic Acid (Folic Acid) 1 mg DAILY PO Last administered on 08/03/18 08:19; Admin Dose 1 MG; Start 08/03/18 at 09:00 Levothyroxine Sodium (Synthroid) 50 mcg BEFORE BREAKFAST PO Last administered on 08/03/18 06:29; Admin Dose 50 MCG; Start 08/03/18 at 07:00 Nortriptyline HCl (Aventyl) 10 mg TID PO Last administered on 08/03/18 12:35; Admin Dose 10 MG; Start 08/02/18 at 21:00 Sevelamer Carbonate (Renvela) 0.8 gm AC MEALS PO Last administered on 08/03/18 12:35; Admin Dose 0.8 GM; Start 08/02/18 at 17:30 Midodrine (Proamatine) 5 mg ON DIALYSIS DAYS PO Last administered on 08/03/18 10:08; Admin Dose 5 MG; Start 08/02/18 at 18:00 Insulin Glargine (Lantus) 15 units DAILY@0800 SC Last administered on 08/03/18at 12:32; Admin Dose 15 UNITS; Start 08/03/18 at 12:00 Allergies: Coded Allergies: hydromorphone (Verified Allergy, Unknown, UNKNOWN, 08/02/18) Past Surgical History Past Surgical Hx: other (Hip replacement) Social History Alcohol Use: none Smoking Status: Never smoker Drug Use: none Exam/Review of Systems Exam Vitals Vital Signs Date Temp Pulse Resp B/P (MAP) Pulse Ox O2 O2 Flow FiO2 Time Delivery Rate 08/03/18 99 13:25 08/03/18 98.2 18 96/51 (66) 95 11:39 08/03/18 Room Air 10:55 08/02/18 2.0 15:13 Intake and Output 08/02/18 08/02/18 08/03/18 1515:00 23:00 07:00 IntakeIntake Total 500 ml 300 ml BalanceBalance 500 ml 300 ml Exam Patient is awake alert. Undergoing hemodialysis during interview. Lungs clear to auscultation heart regular rate and rhythm without gallops murmurs rubs. Abdomen obese with mild tenderness on palpation without palpable masses. Results Result Diagram: 08/03/18 0638 08/03/18 0638 Results 24hrs Laboratory Tests Test 08/02/18 17:56 08/02/18 22:16 08/03/18 01:32 08/03/18 02:20 Bedside Glucose 93 156 251 H Stool Occult Blood POSITIVE Test 08/03/18 06:38 08/03/18 08:01 08/03/18 11:41 White Blood Count 12.4 H Red Blood Count 2.99 L Hemoglobin 9.3 L Hematocrit 30.6 L Mean Corpuscular 102.3 H Volume Mean Corpuscular 31.1 Hemoglobin Mean Corpuscular 30.4 L Hemoglobin Concent Red Cell 17.4 H Distribution Width Platelet Count 264 Mean Platelet Volume 10.6 H Immature 0.400 Granulocytes % Neutrophils % 81.5 H Lymphocytes % 6.4 L Monocytes % 9.0 Eosinophils % 1.9 Basophils % 0.8 Nucleated Red Blood 0.0 Cells % Immature 0.050 H Granulocytes # Neutrophils # 10.1 H Lymphocytes # 0.8 Monocytes # 1.1 H Eosinophils # 0.2 Basophils # 0.1 Nucleated Red Blood 0.0 Cells # Sodium Level 135 Potassium Level 6.2 *H Chloride Level 96 L Carbon Dioxide Level 24 Anion Gap 15 H Blood Urea Nitrogen 59 H Creatinine 7.88 H Est Glomerular Filtrat Rate mL/min Glucose Level 247 #H Hemoglobin A1c 6.4 H Calcium Level 8.2 L Phosphorus Level 7.8 H Magnesium Level 1.9 Hepatitis B Surface NEGATIVE Antigen Hepatitis B Surface POSITIVE H Antibody Bedside Glucose 233 H 189 Medications Medication Current Medications IV Flush (NS 3 ml) 3 ml PER PROTOCOL IV ; Start 08/02/18 at 13:00 Ondansetron HCl (Zofran Inj) 4 mg Q6H PRN IV NAUSEA/VOMITING; Start 08/02/18 at 13:00 Acetaminophen (Tylenol Tab) 650 mg Q6H PRN PO .PAIN 1-3 OR TEMP; Start 08/02/18 at 13:00 Acetaminophen/ Hydrocodone Bitart ([place] (5/325)) 1 tab Q6H PRN PO .MOD PAIN 4- 6; Start 08/02/18 at 13:00 Morphine Sulfate (morphine) 2 mg Q4H PRN IV .SEVERE PAIN 7-10; Start 08/02/18 at 13:00 Docusate Sodium (Colace) 100 mg Q12H PRN PO .CONSTIPATION; Start 08/02/18 at 13:00 Magnesium Hydroxide (Milk Of Mag) 30 ml DAILY PRN PO .CONSTIPATION; Start 08/02/18 at 13:00 Zolpidem Tartrate (Ambien) 5 mg QHS PRN PO .INSOMNIA; Start 08/02/18 at 13:00 Famotidine (Pepcid) 20 mg DAILY PO Last administered on 08/03/18at 08:19; Admin Dose 20 MG; Start 08/02/18 at 21:00 Diagnostic Test (Pha) (Accu-Chek) 1 ea 02 XX ; Start 08/03/18 at 02:00 Insulin Aspart (Novolog Insulin Pen) NOVOLOG *MILD* ALGORITHM WITH MEALS BEDTIME SC Last administered on 08/03/18at 12:32; Admin Dose 2 UNIT; Start 08/02/18 at 18:00 Miscellaneous Information 1 ea NOTE XX ; Start 08/02/18 at 13:30 Glucose (Glutose) 15 gm Q15M PRN PO DECREASED GLUCOSE; Start 08/02/18 at 13:30 Glucose (Glutose) 22.5 gm Q15M PRN PO DECREASED GLUCOSE; Start 08/02/18 at 13:30 Dextrose (D50w Syringe) 25 ml Q15M PRN IV DECREASED GLUCOSE; Start 08/02/18 at 13:30 Dextrose (D50w Syringe) 50 ml Q15M PRN IV DECREASED GLUCOSE; Start 08/02/18 at 13:30 Glucagon (Glucagen) 1 mg Q15M PRN IM DECREASED GLUCOSE; Start 08/02/18 at 13:30 Glucose (Glutose) 15 gm Q15M PRN BUCCAL DECREASED GLUCOSE; Start 08/02/18 at 13:30 Cholecalciferol (Vitamin D) 1,000 unit DAILY PO Last administered on 08/03/18 08:20; Admin Dose 1,000 UNIT; Start 08/03/18 at 09:00 Folic Acid (Folic Acid) 1 mg DAILY PO Last administered on 08/03/18 08:19; Admin Dose 1 MG; Start 08/03/18 at 09:00 Levothyroxine Sodium (Synthroid) 50 mcg BEFORE BREAKFAST PO Last administered on 08/03/18 06:29; Admin Dose 50 MCG; Start 08/03/18 at 07:00 Nortriptyline HCl (Aventyl) 10 mg TID PO Last administered on 08/03/18 12:35; Admin Dose 10 MG; Start 08/02/18 at 21:00 Sevelamer Carbonate (Renvela) 0.8 gm AC MEALS PO Last administered on 08/03/18 12:35; Admin Dose 0.8 GM; Start 08/02/18 at 17:30 Midodrine (Proamatine) 5 mg ON DIALYSIS DAYS PO Last administered on 08/03/18 10:08; Admin Dose 5 MG; Start 08/02/18 at 18:00 Insulin Glargine (Lantus) 15 units DAILY@0800 SC Last administered on 08/03/18 12:32; Admin Dose 15 UNITS; Start 08/03/18 at 12:00 CONCHITA MORALES MD Aug 03, 2018 14:34
--- NOTE | 2018-08-03 14:51 | PN ---
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 Splenic infarct Diabetes mellitus Chronic kidney disease -on dialysis Hypertension Ejection fraction 35% Plan: RBC scan- negative Monitor H&H Transfuse for hemoglobin less than 7.[address] from [facility] -if no diverticulitis on prior CT will plan for endoscopic evaluation Sunday Patient seen in collaboration with Subjective: Course reviewed with nursing staff Patient interviewed and examined All labs, imaging and other results reviewed The patient feels well, no over night events patient having loose stools. Discussed plan for endoscopic eval likely Sunday Reviewed risks/benefits alternatives, pt and daughter both verbalized understanding and are agreeable to procedure PHYSICAL EXAMINATION: GENERAL: Well developed, well nourished, alert & oriented x 3, in no acute distress SKIN: No lesions, no stigmata chronic liver disease, no evidence of bleeding diathesis CARDIOVASCULAR: Heart: Regular rate and rhythm RESPIRATORY: Lungs clear to auscultation and percussion, no wheezing, no rubs GASTROINTESTINAL AND LIVER: Abdomen: Soft, non tenderness, non-distended, no hernias, no masses, no organomegaly, no ascites, no guarding, no rebound tenderness, normoactive bowel sounds. Rectal: Deferred. GENITOURINARY: Male genitalia within normal limits. EXTREMITIES: No cyanosis, clubbing or edema. Result Diagram: 08/03/18 0638 08/03/1838 Results 24hrs Laboratory Tests Test 08/02/18 17:56 08/02/18 22:16 08/03/18 01:32 08/03/18 02:20 Bedside Glucose 93 156 251 H Stool Occult Blood POSITIVE Test 08/03/18 06:38 08/03/18 08:01 08/03/18 11:41 White Blood Count 12.4 H Red Blood Count 2.99 L Hemoglobin 9.3 L Hematocrit 30.6 L Mean Corpuscular 102.3 H Volume Mean Corpuscular 31.1 Hemoglobin Mean Corpuscular 30.4 L Hemoglobin Concent Red Cell 17.4 H Distribution Width Platelet Count 264 Mean Platelet Volume 10.6 H Immature 0.400 Granulocytes % Neutrophils % 81.5 H Lymphocytes % 6.4 L Monocytes % 9.0 Eosinophils % 1.9 Basophils % 0.8 Nucleated Red Blood 0.0 Cells % Immature 0.050 H Granulocytes # Neutrophils # 10.1 H Lymphocytes # 0.8 Monocytes # 1.1 H Eosinophils # 0.2 Basophils # 0.1 Nucleated Red Blood 0.0 Cells # Sodium Level 135 Potassium Level 6.2 *H Chloride Level 96 L Carbon Dioxide Level 24 Anion Gap 15 H Blood Urea Nitrogen 59 H Creatinine 7.88 H Est Glomerular Filtrat Rate mL/min Glucose Level 247 #H Hemoglobin A1c 6.4 H Calcium Level 8.2 L Phosphorus Level 7.8 H Magnesium Level 1.9 Hepatitis B Surface NEGATIVE Antigen Hepatitis B Surface POSITIVE H Antibody Bedside Glucose 233 H 189 Exam/Review of Systems Exam Vitals Vital Signs Date Temp Pulse Resp B/P (MAP) Pulse Ox O2 O2 Flow FiO2 Time Delivery Rate 08/03/18 99 14:00 08/03/18 20 118/58 95 Room Air 13:55 (78) 08/03/18 98.2 11:39 08/02/18 2.0 15:13 Intake and Output 08/02/18 08/02/18 08/03/18 1515:00 23:00 07:00 IntakeIntake Total 500 ml 300 ml BalanceBalance 500 ml 300 ml Results Results 24hrs Laboratory Tests Test 08/02/18 17:56 08/02/18 22:16 08/03/18 01:32 08/03/18 02:20 Bedside Glucose 93 156 251 H Stool Occult Blood POSITIVE Test 08/03/18 06:38 08/03/18 08:01 08/03/18 11:41 White Blood Count 12.4 H Red Blood Count 2.99 L Hemoglobin 9.3 L Hematocrit 30.6 L Mean Corpuscular 102.3 H Volume Mean Corpuscular 31.1 Hemoglobin Mean Corpuscular 30.4 L Hemoglobin Concent Red Cell 17.4 H Distribution Width Platelet Count 264 Mean Platelet Volume 10.6 H Immature 0.400 Granulocytes % Neutrophils % 81.5 H Lymphocytes % 6.4 L Monocytes % 9.0 Eosinophils % 1.9 Basophils % 0.8 Nucleated Red Blood 0.0 Cells % Immature 0.050 H Granulocytes # Neutrophils # 10.1 H Lymphocytes # 0.8 Monocytes # 1.1 H Eosinophils # 0.2 Basophils # 0.1 Nucleated Red Blood 0.0 Cells # Sodium Level 135 Potassium Level 6.2 *H Chloride Level 96 L Carbon Dioxide Level 24 Anion Gap 15 H Blood Urea Nitrogen 59 H Creatinine 7.88 H Est Glomerular Filtrat Rate mL/min Glucose Level 247 #H Hemoglobin A1c 6.4 H Calcium Level 8.2 L Phosphorus Level 7.8 H Magnesium Level 1.9 Hepatitis B Surface NEGATIVE Antigen Hepatitis B Surface POSITIVE H Antibody Bedside Glucose 233 H 189 Medications Medication Current Medications IV Flush (NS 3 ml) 3 ml PER PROTOCOL IV ; Start 08/02/18 at 13:00 Ondansetron HCl (Zofran Inj) 4 mg Q6H PRN IV NAUSEA/VOMITING; Start 08/02/18 at 13:00 Acetaminophen (Tylenol Tab) 650 mg Q6H PRN PO .PAIN 1-3 OR TEMP; Start 08/02/18 at 13:00 Acetaminophen/ Hydrocodone Bitart ([place] (5/325)) 1 tab Q6H PRN PO .MOD PAIN 4- 6; Start 08/02/18 at 13:00 Morphine Sulfate (morphine) 2 mg Q4H PRN IV .SEVERE PAIN 7-10; Start 08/02/18 at 13:00 Docusate Sodium (Colace) 100 mg Q12H PRN PO .CONSTIPATION; Start 08/02/18 at 13:00 Magnesium Hydroxide (Milk Of Mag) 30 ml DAILY PRN PO .CONSTIPATION; Start 08/02/18 at 13:00 Zolpidem Tartrate (Ambien) 5 mg QHS PRN PO .INSOMNIA; Start 08/02/18 at 13:00 Famotidine (Pepcid) 20 mg DAILY PO Last administered on 08/03/18at 08:19; Admin Dose 20 MG; Start 08/02/18 at 21:00 Diagnostic Test (Pha) (Accu-Chek) 1 ea 02 XX ; Start 08/03/18 at 02:00 Insulin Aspart (Novolog Insulin Pen) NOVOLOG *MILD* ALGORITHM WITH MEALS BEDTIME SC Last administered on 08/03/18 12:32; Admin Dose 2 UNIT; Start 08/02/18 at 18:00 Miscellaneous Information 1 ea NOTE XX ; Start 08/02/18 at 13:30 Glucose (Glutose) 15 gm Q15M PRN PO DECREASED GLUCOSE; Start 08/02/18 at 13:30 Glucose (Glutose) 22.5 gm Q15M PRN PO DECREASED GLUCOSE; Start 08/02/18 at 13:30 Dextrose (D50w Syringe) 25 ml Q15M PRN IV DECREASED GLUCOSE; Start 08/02/18 at 13:30 Dextrose (D50w Syringe) 50 ml Q15M PRN IV DECREASED GLUCOSE; Start 08/02/18 at 13:30 Glucagon (Glucagen) 1 mg Q15M PRN IM DECREASED GLUCOSE; Start 08/02/18 at 13:30 Glucose (Glutose) 15 gm Q15M PRN BUCCAL DECREASED GLUCOSE; Start 08/02/18 at 1 3:30 Cholecalciferol (Vitamin D) 1,000 unit DAILY PO Last administered on 08/03/18at 08:20; Admin Dose 1,000 UNIT; Start 08/03/18 at 09:00 Folic Acid (Folic Acid) 1 mg DAILY PO Last administered on 08/03/18 08:19; Admin Dose 1 MG; Start 08/03/18 at 09:00 Levothyroxine Sodium (Synthroid) 50 mcg BEFORE BREAKFAST PO Last administered on 08/03/18 06:29; Admin Dose 50 MCG; Start 08/03/18 at 07:00 Nortriptyline HCl (Aventyl) 10 mg TID PO Last administered on 08/03/18 12:35; Admin Dose 10 MG; Start 08/02/18 at 21:00 Sevelamer Carbonate (Renvela) 0.8 gm AC MEALS PO Last administered on 9at 12:35; Admin Dose 0.8 GM; Start 08/02/18 at 17:30 Midodrine (Proamatine) 5 mg ON DIALYSIS DAYS PO Last administered on 08/03/18 10:08; Admin Dose 5 MG; Start 08/02/18 at 18:00 Insulin Glargine (Lantus) 15 units DAILY@0800 SC Last administered on 08/03/18at 12:32; Admin Dose 15 UNITS; Start 08/03/18 at 12:00 ALANA CASTANEDA Aug 03, 2018 14:51
[2018-08-04] VITALS (12 sets, daily range): BP systolic 86–154; BP diastolic 44–99; PULSE 92–104; RESP 18–19
[2018-08-04] MEDS: ACCU-CHEK XX SCH (02:00)
[2018-08-04] MEDS: LEVOTHYROXINE 50 MCG TAB PO SCH (06:36)
[2018-08-04] MEDS: INSULIN ASPART [NOVOLOG] 3 ML PEN SC SCH ×4 (07:44→20:43)
[2018-08-04] MEDS: SEVELAMER CARBONATE 0.8 GM PKT PO SCH ×3 (07:49→17:41)
[2018-08-04] MEDS: FAMOTIDINE 20 MG TAB PO SCH (08:10)
[2018-08-04] MEDS: FOLIC ACID 1 MG TAB PO SCH (08:10)
[2018-08-04] MEDS: CHOLECALCIFEROL 1,000 UNIT TAB PO SCH (08:10)
[2018-08-04] MEDS: NORTRIPTYLINE 10 MG CAP PO SCH ×3 (08:11→20:44)
[2018-08-04] MEDS: INSULIN GLARGINE [LANTus] (100 UNITS/ML) SYG SC SCH (08:35)
[2018-08-04] MEDS ORDERED: BISACODYL (EC) 5 MG TAB PO ONE ×3 (12:30→23:00)
--- NOTE | 2018-08-04 12:32 | PN ---
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 Splenic infarct Diabetes mellitus Chronic kidney disease -on dialysis Hypertension Ejection fraction 35% Plan: Monitor H&H Transfuse for hemoglobin less than 7.5 EGD/Colonoscopy tomorrow clear liquid today- NPO after 08/05/18 0800 Patient seen in collaboration with Subjective: Course reviewed with nursing staff Patient interviewed and examined All labs, imaging and other results reviewed No over night events, no c/o n/v or abdominal pain Discussed plan to proceed with EGD/colonoscopy tomorrow Again reviewed procedures risk/benefits. Patient verbalized understanding and is agreeable to both procedures. PHYSICAL EXAMINATION: GENERAL: Well developed, well nourished, alert & oriented x 3, in no acute distress SKIN: No lesions, no stigmata chronic liver disease, no evidence of bleeding diathesis CARDIOVASCULAR: Heart: Regular rate and rhythm RESPIRATORY: Lungs clear to auscultation and percussion, no wheezing, no rubs GASTROINTESTINAL AND LIVER: Abdomen: Soft, non tenderness, non-distended, no hernias, no masses, no organomegaly, no ascites, no guarding, no rebound tenderness, normoactive bowel sounds. Rectal: Deferred. GENITOURINARY: Male genitalia within normal limits. EXTREMITIES: No cyanosis, clubbing or edema. Result Diagram: 08/03/18 0638 08/04/18 0602 Results 24hrs Laboratory Tests Test 08/03/18 14:55 08/03/18 17:16 08/03/18 20:35 08/04/18 06:02 Potassium Level 4.1 # 4.3 Bedside Glucose 196 125 Sodium Level 137 Chloride Level 93 L Carbon Dioxide Level 31 Anion Gap 13 Blood Urea Nitrogen 29 #H Creatinine 5.56 #H Est Glomerular Filtrat Rate mL/min Glucose Level 44 #*L Uric Acid 4.9 Calcium Level 8.3 L Phosphorus Level 5.8 #H Vitamin B12 Level > 1000 H Test 08/04/18 07:37 08/04/18 08:12 08/04/18 11:47 Bedside Glucose 77 124 105 Exam/Review of Systems Exam Vitals Vital Signs Date Temp Pulse Resp B/P (MAP) Pulse Ox O2 O2 Flow FiO2 Time Delivery Rate 08/04/18 98.7 98 19 124/61 93 11:39 (82) 08/03/18 Room Air 13:55 08/02/18 2.0 15:13 Intake and Output 08/03/18 08/03/18 08/04/18 1414:59 22:59 06:59 IntakeIntake Total 1200 ml 600 ml 60 ml OutputOutput Total 1000 ml BalanceBalance 200 ml 600 ml 60 ml Results Results 24hrs Laboratory Tests Test 08/03/18 14:55 08/03/18 17:16 08/03/18 20:35 08/04/18 06:02 Potassium Level 4.1 # 4.3 Bedside Glucose 196 125 Sodium Level 137 Chloride Level 93 L Carbon Dioxide Level 31 Anion Gap 13 Blood Urea Nitrogen 29 #H Creatinine 5.56 #H Est Glomerular Filtrat Rate mL/min Glucose Level 44 #*L Uric Acid 4.9 Calcium Level 8.3 L Phosphorus Level 5.8 #H Vitamin B12 Level > 1000 H Test 08/04/18 07:37 08/04/18 08:12 08/04/18 11:47 Bedside Glucose 77 124 105 Medications Medication Current Medications IV Flush (NS 3 ml) 3 ml PER PROTOCOL IV ; Start 08/02/18 at 13:00 Ondansetron HCl (Zofran Inj) 4 mg Q6H PRN IV NAUSEA/VOMITING; Start 08/02/18 at 13:00 Acetaminophen (Tylenol Tab) 650 mg Q6H PRN PO .PAIN 1-3 OR TEMP; Start 08/02/18 at 13:00 Acetaminophen/ Hydrocodone Bitart ([place] (5/325)) 1 tab Q6H PRN PO .MOD PAIN 4- 6; Start 08/02/18 at 13:00 Morphine Sulfate (morphine) 2 mg Q4H PRN IV .SEVERE PAIN 7-10; Start 08/02/18 at 13:00 Docusate Sodium (Colace) 100 mg Q12H PRN PO .CONSTIPATION; Start 08/02/18 at 13:00 Magnesium Hydroxide (Milk Of Mag) 30 ml DAILY PRN PO .CONSTIPATION; Start 08/02/18 at 13:00 Zolpidem Tartrate (Ambien) 5 mg QHS PRN PO .INSOMNIA; Start 08/02/18 at 13:00 Famotidine (Pepcid) 20 mg DAILY PO Last administered on 08/04/18at 08:10; Admin Dose 20 MG; Start 08/02/18 at 21:00 Diagnostic Test (Pha) (Accu-Chek) 1 ea 02 XX ; Start 08/03/18 at 02:00 Insulin Aspart (Novolog Insulin Pen) NOVOLOG *MILD* ALGORITHM WITH MEALS BEDTIME SC Last administered on 08/03/18at 17:21; Admin Dose 2 UNIT; Start 08/02/18 at 18:00 Miscellaneous Information 1 ea NOTE XX ; Start 08/02/18 at 13:30 Glucose (Glutose) 15 gm Q15M PRN PO DECREASED GLUCOSE; Start 08/02/18 at 13:30 Glucose (Glutose) 22.5 gm Q15M PRN PO DECREASED GLUCOSE; Start 08/02/18 at 13:30 Dextrose (D50w Syringe) 25 ml Q15M PRN IV DECREASED GLUCOSE; Start 08/02/18 at 13:30 Dextrose (D50w Syringe) 50 ml Q15M PRN IV DECREASED GLUCOSE; Start 08/02/18 at 13:30 Glucagon (Glucagen) 1 mg Q15M PRN IM DECREASED GLUCOSE; Start 08/02/18 at 13:30 Glucose (Glutose) 15 gm Q15M PRN BUCCAL DECREASED GLUCOSE; Start 08/02/18 at 13:30 Cholecalciferol (Vitamin D) 1,000 unit DAILY PO Last administered on 08/04/18at 08:10; Admin Dose 1,000 UNIT; Start 08/03/18 at 09:00 Folic Acid (Folic Acid) 1 mg DAILY PO Last administered on 08/04/18at 08:10; Admin Dose 1 MG; Start 08/03/18 at 09:00 Levothyroxine Sodium (Synthroid) 50 mcg BEFORE BREAKFAST PO Last administered on 08/04/18at 06:36; Admin Dose 50 MCG; Start 08/03/18 at 07:00 Nortriptyline HCl (Aventyl) 10 mg TID PO Last administered on 08/04/18 08:11; Admin Dose 10 MG; Start 08/02/18 at 21:00 Sevelamer Carbonate (Renvela) 0.8 gm AC MEALS PO Last administered on 08/04/18 11:48; Admin Dose 0.8 GM; Start 08/02/18 at 17:30 Midodrine (Proamatine) 5 mg ON DIALYSIS DAYS PO Last administered on 08/03/18 10:08; Admin Dose 5 MG; Start 08/02/18 at 18:00 Insulin Glargine (Lantus) 15 units DAILY@0800 SC Last administered on 08/04/18 08:35; Admin Dose 15 UNITS; Start 08/03/18 at 12:00 ALANA CASTANEDA Aug 04, 2018 12:32
[2018-08-04] MEDS ORDERED: PEG/ELECTROLYTES 4L BTL PO ONE ×2 (15:00→23:00)
--- NOTE | 2018-08-04 16:45 | PN ---
Date/Time of Note Date/Time of Note DATE: 08/04/18 TIME: 16:44 Assessment/Plan VTE Prophylaxis Risk score (from Ns)>0 risk: 6 [place] [facility] [place] Pharmacological prophylaxis: NA/contraindicated Pharm contraindication: renal impairment Lines/Catheters IV C[facility]ter Type (from [facility] Mid Line Assessment/Plan Hospital Course 1. 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 Cam appreciated, patient will likely need a hemicolectomy next week 2. End-stage renal disease Nephrology consultation appreciate 3. Diabetes Resume Lantus but at a decreased dose relative to home dose as sugars have increased, continue sliding scale 4. Esophagitis Continue PPI 5. Hypothyroidism Continue home Synthroid 6. Persistent cough-resolved Follow-up on chest x-ray Prophylaxis: SCDs Result Diagram: 08/03/18 0638 08/04/18 0602 Results 24hrs Laboratory Tests Test 08/03/18 17:16 08/03/18 20:35 08/04/18 05:57 08/04/18 06:02 Bedside Glucose 196 125 Carcinoembryonic 2.2 Antigen Sodium Level 137 Potassium Level 4.3 Chloride Level 93 L Carbon Dioxide Level 31 Anion Gap 13 Blood Urea Nitrogen 29 #H Creatinine 5.56 #H Est Glomerular Filtrat Rate mL/min Glucose Level 44 #*L Uric Acid 4.9 Calcium Level 8.3 L Phosphorus Level 5.8 #H Vitamin B12 Level > 1000 H Test 08/04/18 07:37 08/04/18 08:12 08/04/18 11:47 Bedside Glucose 77 124 105 Subjective 24 Hr Interval Summary Constitutional: no complaints Exam/Review of Systems Exam Vitals Vital Signs Date Temp Pulse Resp B/P (MAP) Pulse Ox O2 O2 Flow FiO2 Time Delivery Rate 08/04/18 92 16:00 08/04/18 97.7 18 142/51 93 15:56 (81) 08/03/18 Room Air 13:55 08/02/18 2.0 15:13 Intake and Output 08/03/18 08/03/18 08/04/18 1515:00 23:00 07:00 IntakeIntake Total 1200 ml 600 ml 60 ml OutputOutput Total 1000 ml BalanceBalance 200 ml 600 ml 60 ml Constitutional: alert, oriented Respiratory: clear to auscultation Cardiovascular: regular rate and rhythm Gastrointestinal: soft; No distended Musculoskeletal: nl extremities to inspection Results Results 24hrs Laboratory Tests Test 08/03/18 17:16 08/03/18 20:35 08/04/18 05:57 08/04/18 06:02 Bedside Glucose 196 125 Carcinoembryonic 2.2 Antigen Sodium Level 137 Potassium Level 4.3 Chloride Level 93 L Carbon Dioxide Level 31 Anion Gap 13 Blood Urea Nitrogen 29 #H Creatinine 5.56 #H Est Glomerular Filtrat Rate mL/min Glucose Level 44 #*L Uric Acid 4.9 Calcium Level 8.3 L Phosphorus Level 5.8 #H Vitamin B12 Level > 1000 H Test 08/04/18 07:37 08/04/18 08:12 08/04/18 11:47 Bedside Glucose 77 124 105 Medications Medication Current Medications IV Flush (NS 3 ml) 3 ml PER PROTOCOL IV ; Start 08/02/18 at 13:00 Ondansetron HCl (Zofran Inj) 4 mg Q6H PRN IV NAUSEA/VOMITING; Start 08/02/18 at 13:00 Acetaminophen (Tylenol Tab) 650 mg Q6H PRN PO .PAIN 1-3 OR TEMP; Start 08/02/18 at 13:00 Acetaminophen/ Hydrocodone Bitart ([place] (5/325)) 1 tab Q6H PRN PO .MOD PAIN 4- 6; Start 08/02/18 at 13:00 Morphine Sulfate (morphine) 2 mg Q4H PRN IV .SEVERE PAIN 7-10; Start 08/02/18 at 13:00 Docusate Sodium (Colace) 100 mg Q12H PRN PO .CONSTIPATION; Start 08/02/18 at 13:00 Magnesium Hydroxide (Milk Of Mag) 30 ml DAILY PRN PO .CONSTIPATION; Start 08/02/18 at 13:00 Zolpidem Tartrate (Ambien) 5 mg QHS PRN PO .INSOMNIA; Start 08/02/18 at 13:00 Famotidine (Pepcid) 20 mg DAILY PO Last administered on 08/04/18at 08:10; Admin Dose 20 MG; Start 08/02/18 at 21:00 Diagnostic Test (Pha) (Accu-Chek) 1 ea 02 XX ; Start 08/03/18 at 02:00 Insulin Aspart (Novolog Insulin Pen) NOVOLOG *MILD* ALGORITHM WITH MEALS BEDTIME SC Last administered on 08/03/18 17:21; Admin Dose 2 UNIT; Start 08/02/18 at 18:00 Miscellaneous Information 1 ea NOTE XX ; Start 08/02/18 at 13:30 Glucose (Glutose) 15 gm Q15M PRN PO DECREASED GLUCOSE; Start 08/02/18 at 13:30 Glucose (Glutose) 22.5 gm Q15M PRN PO DECREASED GLUCOSE; Start 08/02/18 at 13:3 0 Dextrose (D50w Syringe) 25 ml Q15M PRN IV DECREASED GLUCOSE; Start 08/02/18 at 13:30 Dextrose (D50w Syringe) 50 ml Q15M PRN IV DECREASED GLUCOSE; Start 08/02/18 at 13:30 Glucagon (Glucagen) 1 mg Q15M PRN IM DECREASED GLUCOSE; Start 08/02/18 at 13:30 Glucose (Glutose) 15 gm Q15M PRN BUCCAL DECREASED GLUCOSE; Start 08/02/18 at 13:30 Cholecalciferol (Vitamin D) 1,000 unit DAILY PO Last administered on 08/04/18at 08:10; Admin Dose 1,000 UNIT; Start 08/03/18 at 09:00 Folic Acid (Folic Acid) 1 mg DAILY PO Last administered on 08/04/18at 08:10; Admin Dose 1 MG; Start 08/03/18 at 09:00 Levothyroxine Sodium (Synthroid) 50 mcg BEFORE BREAKFAST PO Last administered on 08/04/18at 06:36; Admin Dose 50 MCG; Start 08/03/18 at 07:00 Nortriptyline HCl (Aventyl) 10 mg TID PO Last administered on 08/04/18at 12:20; Admin Dose 10 MG; Start 08/02/18 at 21:00 Sevelamer Carbonate (Renvela) 0.8 gm AC MEALS PO Last administered on 08/04/18at 11:48; Admin Dose 0.8 GM; Start 08/02/18 at 17:30 Midodrine (Proamatine) 5 mg ON DIALYSIS DAYS PO Last administered on 08/03/18at 10:08; Admin Dose 5 MG; Start 08/02/18 at 18:00 Insulin Glargine (Lantus) 15 units DAILY@0800 SC Last administered on 2/17/19at 08:35; Admin Dose 15 UNITS; Start 08/03/18 at 12:00 Polyethylene Glycol/ Electrolytes (Golytely) 2,000 ml 2nd Dose (GI Prep) ONCE PO ; Start 08/04/18 at 23:00; Stop 08/04/18 at 23:01 Bisacodyl (Dulcolax) 10 mg 2nd Dose (GI Prep) ONCE PO ; Start 08/04/18 at 23:00; Stop 08/04/18 at 23:01 MILAGRO KENNEDY Aug 04, 2018 16:45
[2018-08-04] MEDS ORDERED: MAGNESIUM CITRATE 300 ML BTL PO ONE (17:30)
--- NOTE | 2018-08-04 18:18 | CONS ---
Assessment/Plan Assessment/Plan Hospital Course (Demo Recall) . End-stage renal disease, on hemodialysis, tts 2. 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 Hypotension.BETTER 4. History of congestive heart failure. 5. Hypercholesterolemia. 6. Total hip replacement. 7. Leukocytosis. 8. Hypoglycemia. 9. MAcrocytic hypochromic Anemia mixed etiology, recent blood loss and 2/2 kidney disease 10. Hypothyroidism MIGUEL PER GI Consultation Date/Type/Reason Admit Date/Time Aug 02, 2018 at 10:57 Initial Consult Date 08/03/18 Type of Consult renal NO GI BLEED Date/Time of Note DATE: 08/04/18 TIME: 18:16 Exam/Review of Systems Exam Vitals Vital Signs Date Temp Pulse Resp B/P (MAP) Pulse Ox O2 O2 Flow FiO2 Time Delivery Rate 08/04/18 92 16:00 08/04/18 97.7 18 142/51 93 15:56 (81) 08/03/18 Room Air 13:55 08/02/18 2.0 15:13 Intake and Output 08/03/18 08/03/18 08/04/18 1515:00 23:00 07:00 IntakeIntake Total 1200 ml 600 ml 60 ml OutputOutput Total 1000 ml BalanceBalance 200 ml 600 ml 60 ml Respiratory: clear to auscultation, diminished breath sounds Cardiovascular: regular rate and rhythm Gastrointestinal: soft, bowel sounds (+) Extremities: No edema Results Result Diagram: 08/03/18 0638 08/04/18 0602 Results 24hrs Laboratory Tests Test 08/03/18 20:35 08/04/18 05:57 08/04/18 06:02 08/04/18 07:37 Bedside Glucose 125 77 Carcinoembryonic 2.2 Antigen Sodium Level 137 Potassium Level 4.3 Chloride Level 93 L Carbon Dioxide Level 31 Anion Gap 13 Blood Urea Nitrogen 29 #H Creatinine 5.56 #H Est Glomerular Filtrat Rate mL/min Glucose Level 44 #*L Uric Acid 4.9 Calcium Level 8.3 L Phosphorus Level 5.8 #H Vitamin B12 Level > 1000 H Test 08/04/18 08:12 08/04/18 11:47 08/04/18 17:40 Bedside Glucose 124 105 78 Medications Medication Current Medications IV Flush (NS 3 ml) 3 ml PER PROTOCOL IV ; Start 2/15/19 at 13:00 Ondansetron HCl (Zofran Inj) 4 mg Q6H PRN IV NAUSEA/VOMITING; Start 08/02/18 at 13:00 Acetaminophen (Tylenol Tab) 650 mg Q6H PRN PO .PAIN 1-3 OR TEMP; Start 08/02/18 at 13:00 Acetaminophen/ Hydrocodone Bitart ([place] (5/325)) 1 tab Q6H PRN PO .MOD PAIN 4- 6; Start 08/02/18 at 13:00 Morphine Sulfate (morphine) 2 mg Q4H PRN IV .SEVERE PAIN 7-10; Start 08/02/18 at 13:00 Docusate Sodium (Colace) 100 mg Q12H PRN PO .CONSTIPATION; Start 08/02/18 at 13:00 Magnesium Hydroxide (Milk Of Mag) 30 ml DAILY PRN PO .CONSTIPATION; Start 08/02/18 at 13:00 Zolpidem Tartrate (Ambien) 5 mg QHS PRN PO .INSOMNIA; Start 08/02/18 at 13:00 Famotidine (Pepcid) 20 mg DAILY PO Last administered on 08/04/18at 08:10; Admin Dose 20 MG; Start 08/02/18 at 21:00 Diagnostic Test (Pha) (Accu-Chek) 1 ea 02 XX ; Start 08/03/18 at 02:00 Insulin Aspart (Novolog Insulin Pen) NOVOLOG *MILD* ALGORITHM WITH MEALS BEDTIME SC Last administered on 08/03/18at 17:21; Admin Dose 2 UNIT; Start 08/02/18 at 18:00 Miscellaneous Information 1 ea NOTE XX ; Start 08/02/18 at 13:30 Glucose (Glutose) 15 gm Q15M PRN PO DECREASED GLUCOSE; Start 08/02/18 at 13:30 Glucose (Glutose) 22.5 gm Q15M PRN PO DECREASED GLUCOSE; Start 08/02/18 at 13:30 Dextrose (D50w Syringe) 25 ml Q15M PRN IV DECREASED GLUCOSE; Start 08/02/18 at 13:30 Dextrose (D50w Syringe) 50 ml Q15M PRN IV DECREASED GLUCOSE; Start 08/02/18 at 13:30 Glucagon (Glucagen) 1 mg Q15M PRN IM DECREASED GLUCOSE; Start 08/02/18 at 13:30 Glucose (Glutose) 15 gm Q15M PRN BUCCAL DECREASED GLUCOSE; Start 08/02/18 at 13:30 Cholecalciferol (Vitamin D) 1,000 unit DAILY PO Last administered on 08/04/18 08:10; Admin Dose 1,000 UNIT; Start 08/03/18 at 09:00 Folic Acid (Folic Acid) 1 mg DAILY PO Last administered on 08/04/18 08:10; Admin Dose 1 MG; Start 08/03/18 at 09:00 Levothyroxine Sodium (Synthroid) 50 mcg BEFORE BREAKFAST PO Last administered on 08/04/18 06:36; Admin Dose 50 MCG; Start 08/03/18 at 07:00 Nortriptyline HCl (Aventyl) 10 mg TID PO Last administered on 08/04/18 12:20; Admin Dose 10 MG; Start 08/02/18 at 21:00 Sevelamer Carbonate (Renvela) 0.8 gm AC MEALS PO Last administered on 08/04/18at 17:41; Admin Dose 0.8 GM; Start 08/02/18 at 17:30 Midodrine (Proamatine) 5 mg ON DIALYSIS DAYS PO Last administered on 08/03/18 10:08; Admin Dose 5 MG; Start 08/02/18 at 18:00 Insulin Glargine (Lantus) 15 units DAILY@0800 SC Last administered on 08/04/18at 08:35; Admin Dose 15 UNITS; Start 08/03/18 at 12:00 Polyethylene Glycol/ Electrolytes (Golytely) 2,000 ml 2nd Dose (GI Prep) ONCE PO ; Start 08/04/18 at 23:00; Stop 08/04/18 at 23:01 Bisacodyl (Dulcolax) 10 mg 2nd Dose (GI Prep) ONCE PO ; Start 08/04/18 at 23:00; Stop 08/04/18 at 23:01 LAMIN STEIN MD Aug 04, 2018 18:18
[2018-08-04] MEDS ORDERED: POLYETHYLENE GLYCOL 3350 119 GM POWDER PO ONE (18:30)
[2018-08-05] VITALS (26 sets, daily range): BP systolic 92–149; BP diastolic 48–90; PULSE 90–102; RESP 18–20
[2018-08-05] MEDS: ACCU-CHEK XX SCH (00:56)
[2018-08-05] MEDS ORDERED: POLYETHYLENE GLYCOL 3350 119 GM POWDER PO ONE (06:00)
[2018-08-05] MEDS: LEVOTHYROXINE 50 MCG TAB PO SCH (06:46)
[2018-08-05] MEDS: SEVELAMER CARBONATE 0.8 GM PKT PO SCH ×3 (07:25→16:58)
[2018-08-05] MEDS: INSULIN ASPART [NOVOLOG] 3 ML PEN SC SCH ×4 (07:55→20:44)
[2018-08-05] MEDS: INSULIN GLARGINE [LANTus] (100 UNITS/ML) SYG SC SCH (08:00)
[2018-08-05] MEDS ORDERED: BISACODYL (EC) 5 MG TAB PO ONE (08:00)
[2018-08-05] MEDS: CHOLECALCIFEROL 1,000 UNIT TAB PO SCH (08:17)
[2018-08-05] MEDS: FOLIC ACID 1 MG TAB PO SCH (08:17)
[2018-08-05] MEDS: NORTRIPTYLINE 10 MG CAP PO SCH ×3 (08:17→20:45)
[2018-08-05] MEDS: FAMOTIDINE 20 MG TAB PO SCH (08:18)
--- NOTE | 2018-08-05 10:12 | PREAC ---
Date/Time of Note Date/Time of Note DATE: 08/05/18 TIME: 10:10 Anesthesia Eval and Record Evaluation Time Pre-Procedure Interview DATE: 08/05/18 TIME: 10:10 Age 78 Sex male NPO: 8 hrs Preoperative diagnosis GI BLEED Planned procedure EGD AND COLONOSCOPY Past Medical History Past Medical History: Includes Cardio: HTN, CHF (EF 60% ON ECHO 09/01/16) Endo: Diabetes, Hypothyroid Renal: ESRD on dialysis, HD last: (TODAY) Heme: Anemia Surgery & Anesthesia Issues No known issue Meds Anticoagulation: Yes Beta Gunnar within 24 hr: No Reason Beta Gunnar not given: Pt. not on B-Gunnar Active Scripts Hydrocodone/Acetaminophen ([place] 5-325 Tablet) 1 Each Tablet, 1 EACH PO Q8 PRN for PAIN, #21 TAB Prov:DULCE GALINDO 03/29/17 Reported Medications Midodrine* (Midodrine*) 5 Mg Tablet, 5 MG PO DAILY, TAB THE DAYS OF DIALYSIS 08/02/18 Nortriptyline Hcl* (Nortriptyline Hcl*) 10 Mg Capsule, 10 MG PO TID, CAP 08/02/18 Aspirin* (Aspirin* Chew) 81 Mg Tab.chew, 81 MG PO DAILY, TAB.CHEW 08/02/18 Cholecalciferol* (Vitamin D3*) 1,000 Unit Tablet, 1000 UNIT PO DAILY, TAB 03/28/17 Cyanocobalamin* (Vitamin B12*) Unknown Strength Tab, 1 TAB PO Q MON,FRI, TAB 03/28/17 Sevelamer Carbonate* (Renvela*) 800 Mg Tablet, 0.8 GM PO WITH MEALS BID, TAB 03/28/17 Levothyroxine Sodium* (Synthroid*) 50 Mcg Tablet, 50 MCG PO BEFORE BREAKFAST, #30 TAB 08/21/16 Atorvastatin Calcium* (Atorvastatin Calcium*) 20 Mg Tablet, 20 MG PO QHS, #30 TAB 08/21/16 Folic Acid* (Folic Acid*) 1 Mg Tablet, 1 MG PO DAILY, TAB 08/21/16 Insulin Lispro (Humalog) 100 Unit/1 Ml Cartridge, 0 SQ TID SLIDING SCALES 08/21/16 Insulin Glargine* (Lantus*) 100 Unit/Ml Soln, 20 UNIT SC BID, #1 VIAL 08/21/16 Discontinued Reported Medications Amitriptyline Hcl* (Amitriptyline Hcl*) 75 Mg Tablet, 37.5 MG PO QHS, #30 TAB 08/21/16 Current Medications IV Flush (NS 3 ml) 3 ml PER PROTOCOL IV ; Start 08/02/18 at 13:00 Ondansetron HCl (Zofran Inj) 4 mg Q6H PRN IV NAUSEA/VOMITING; Start 08/02/18 at 13:00 Acetaminophen (Tylenol Tab) 650 mg Q6H PRN PO .PAIN 1-3 OR TEMP; Start 08/02/18 at 13:00 Acetaminophen/ Hydrocodone Bitart ([place] (5/325)) 1 tab Q6H PRN PO .MOD PAIN 4- 6; Start 08/02/18 at 13:00 Morphine Sulfate (morphine) 2 mg Q4H PRN IV .SEVERE PAIN 7-10; Start 08/02/18 at 13:00 Docusate Sodium (Colace) 100 mg Q12H PRN PO .CONSTIPATION; Start 08/02/18 at 13:00 Magnesium Hydroxide (Milk Of Mag) 30 ml DAILY PRN PO .CONSTIPATION; Start 08/02/18 at 13:00 Zolpidem Tartrate (Ambien) 5 mg QHS PRN PO .INSOMNIA; Start 08/02/18 at 13:00 Famotidine (Pepcid) 20 mg DAILY PO Last administered on 08/05/18at 08:18; Admin Dose 20 MG; Start 08/02/18 at 21:00 Diagnostic Test (Pha) (Accu-Chek) 1 ea 02 XX ; Start 08/03/18 at 02:00 Insulin Aspart (Novolog Insulin Pen) NOVOLOG *MILD* ALGORITHM WITH MEALS BEDTIME SC Last administered on 08/03/18at 17:21; Admin Dose 2 UNIT; Start 08/02/18 at 18:00 Miscellaneous Information 1 ea NOTE XX ; Start 08/02/18 at 13:30 Glucose (Glutose) 15 gm Q15M PRN PO DECREASED GLUCOSE; Start 08/02/18 at 13:30 Glucose (Glutose) 22.5 gm Q15M PRN PO DECREASED GLUCOSE; Start 08/02/18 at 13:30 Dextrose (D50w Syringe) 25 ml Q15M PRN IV DECREASED GLUCOSE; Start 08/02/18 at 13:30 Dextrose (D50w Syringe) 50 ml Q15M PRN IV DECREASED GLUCOSE; Start 08/02/18 at 13:30 Glucagon (Glucagen) 1 mg Q15M PRN IM DECREASED GLUCOSE; Start 08/02/18 at 13:30 Glucose (Glutose) 15 gm Q15M PRN BUCCAL DECREASED GLUCOSE; Start 08/02/18 at 13:30 Cholecalciferol (Vitamin D) 1,000 unit DAILY PO Last administered on 08/05/18 08:17; Admin Dose 1,000 UNIT; Start 08/03/18 at 09:00 Folic Acid (Folic Acid) 1 mg DAILY PO Last administered on 08/05/18 08:17; Admin Dose 1 MG; Start 08/03/18 at 09:00 Levothyroxine Sodium (Synthroid) 50 mcg BEFORE BREAKFAST PO Last administered on 08/04/18 06:36; Admin Dose 50 MCG; Start 08/03/18 at 07:00 Nortriptyline HCl (Aventyl) 10 mg TID PO Last administered on 08/05/18 08:17; Admin Dose 10 MG; Start 08/02/18 at 21:00 Sevelamer Carbonate (Renvela) 0.8 gm AC MEALS PO Last administered on 08/04/18 17:41; Admin Dose 0.8 GM; Start 08/02/18 at 17:30 Midodrine (Proamatine) 5 mg ON DIALYSIS DAYS PO Last administered on 08/03/18at 10:08; Admin Dose 5 MG; Start 08/02/18 at 18:00 Insulin Glargine (Lantus) 15 units DAILY@0800 SC Last administered on 08/04/18 08:35; Admin Dose 15 UNITS; Start 08/03/18 at 12:00 Meds reviewed: Yes Allergies Coded Allergies: hydromorphone (Verified Allergy, Unknown, UNKNOWN, 08/02/18) Allergies Reviewed: Yes Labs/Studies Labs Reviewed: Reviewed by anesthesiologist Result Diagram: 08/05/1865008/05/18 0651 Laboratory Tests 08/05/18 06:51 test: N/A Studies: ECG, 2D Echo Pre-procedure Exam Last vitals Vital Signs Date Temp Pulse Resp B/P (MAP) Pulse Ox O2 O2 Flow FiO2 Time Delivery Rate 08/05/18 94 10:00 08/05/18 20 108/77 93 Room Air 09:30 (87) 08/05/18 97.9 07:18 08/02/18 2.0 15:13 Airway: Adequate mouth opening, Adequate thyromental dist Mallampati: Mallampati II Teeth: Normal Lung: Normal Heart: Normal ASA Physical Status ASA physical status: 3 Emergency: None Planned Anesthetic General/MAC: MAC, TIVA Planned Pain Management Parenteral pain med Pre-operative Attestations Prior to commencing anesthesia and surgery, the patient was re-evaluated, there was verification of: *The patient's identity *The results of appropriate recent lab work and preoperative vital signs *The above evaluation not changing prior to induction *Anesthetic plan, risk benefits, alternative and complications discussed with patient/family; questions answered; patient/family understands, accepts and wishes to proceed. DALLAS BUSTOS Aug 05, 2018 10:12
--- NOTE | 2018-08-05 11:36 | CONS ---
Assessment/Plan Assessment/Plan Assessment/Plan (Daily) 78 y/o with 1 End-stage renal disease, on hemodialysis, tts 2. 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 Hypotension.BETTER 4. History of congestive heart failure. 5. Hypercholesterolemia. 6. Total hip replacement. 7. Leukocytosis. 8. Hypoglycemia. 9. MAcrocytic hypochromic Anemia mixed etiology, recent blood loss and 2/2 kidney disease 10. Hypothyroidism Plan -EGD and colonoscopy today -HD in progress -Midodrine on dialysis days -Renally Dose all meds -Avoid nephrotoxic agents. Consultation Date/Type/Reason Admit Date/Time Aug 02, 2018 at 10:57 Initial Consult Date 08/03/18 Date/Time of Note DATE: 08/05/18 TIME: 11:33 24 HR Interval Summary Free Text/Dictation EGD and colonoscopy today. HD in progress, Systolic blood pressure 130s Exam/Review of Systems Exam Vitals Vital Signs Date Temp Pulse Resp B/P (MAP) Pulse Ox O2 O2 Flow FiO2 Time Delivery Rate 08/05/18 97.6 99 20 118/73 96 11:16 (88) 08/05/18 Room Air 09:30 08/02/18 2.0 15:13 Intake and Output 08/04/18 08/04/18 08/05/18 1515:00 23:00 07:00 IntakeIntake Total 240 ml BalanceBalance 240 ml Exam Respiratory: clear to auscultation, diminished breath sounds Cardiovascular: regular rate and rhythm Gastrointestinal: soft, bowel sounds (+) Extremities: No edema hero graft Results Result Diagram: 08/05/18 0651 08/05/18 0651 Results 24hrs Laboratory Tests Test 08/04/18 11:47 08/04/18 17:40 08/04/18 20:41 08/05/18 06:51 Bedside Glucose 105 78 136 White Blood Count 7.6 # Red Blood Count 3.08 L Hemoglobin 9.6 L Hematocrit 31.2 L Mean Corpuscular 101.3 H Volume Mean Corpuscular 31.2 Hemoglobin Mean Corpuscular 30.8 L Hemoglobin Concent Red Cell 17.1 H Distribution Width Platelet Count 280 Mean Platelet Volume 10.6 H Immature 0.500 H Granulocytes % Neutrophils % 65.3 Lymphocytes % 15.8 Monocytes % 11.8 H Eosinophils % 5.5 Basophils % 1.1 Nucleated Red Blood 0.0 Cells % Immature 0.040 H Granulocytes # Neutrophils # 5.0 Lymphocytes # 1.2 Monocytes # 0.9 Eosinophils # 0.4 Basophils # 0.1 Nucleated Red Blood 0.0 Cells # Prothrombin Time 14.3 Prothrombin Time 1.1 Ratio INR International 1.10 Normalized Ratio Sodium Level 137 Potassium Level 4.5 Chloride Level 91 L Carbon Dioxide Level 29 Anion Gap 17 H Blood Urea Nitrogen 33 H Creatinine 6.77 H Est Glomerular Filtrat Rate mL/min Glucose Level 88 # Calcium Level 8.1 L Total Bilirubin 0.0 L Direct Bilirubin 0.00 Indirect Bilirubin 0.0 Aspartate Amino 12 L Transf (AST/SGOT) Alanine 14 Aminotransferase (AL T/SGPT) Alkaline Phosphatase 98 Total Protein 6.2 Albumin 2.9 L Globulin 3.30 H Albumin/Globulin 0.87 Ratio Test 08/05/18 07:56 Bedside Glucose 108 Medications Medication Current Medications IV Flush (NS 3 ml) 3 ml PER PROTOCOL IV ; Start 08/02/18 at 13:00 Ondansetron HCl (Zofran Inj) 4 mg Q6H PRN IV NAUSEA/VOMITING; Start 08/02/18 at 13:00 Acetaminophen (Tylenol Tab) 650 mg Q6H PRN PO .PAIN 1-3 OR TEMP; Start 08/02/18 at 13:00 Acetaminophen/ Hydrocodone Bitart ([place] (5/325)) 1 tab Q6H PRN PO .MOD PAIN 4- 6; Start 08/02/18 at 13:00 Morphine Sulfate (morphine) 2 mg Q4H PRN IV .SEVERE PAIN 7-10; Start 08/02/18 at 13:00 Docusate Sodium (Colace) 100 mg Q12H PRN PO .CONSTIPATION; Start 08/02/18 at 13:00 Magnesium Hydroxide (Milk Of Mag) 30 ml DAILY PRN PO .CONSTIPATION; Start 08/02/18 at 13:00 Zolpidem Tartrate (Ambien) 5 mg QHS PRN PO .INSOMNIA; Start 08/02/18 at 13:00 Famotidine (Pepcid) 20 mg DAILY PO Last administered on 08/05/18at 08:18; Admin Dose 20 MG; Start 08/02/18 at 21:00 Diagnostic Test (Pha) (Accu-Chek) 1 ea 02 XX ; Start 08/03/18 at 02:00 Insulin Aspart (Novolog Insulin Pen) NOVOLOG *MILD* ALGORITHM WITH MEALS BEDTIME SC Last administered on 08/03/18at 17:21; Admin Dose 2 UNIT; Start 08/02/18 at 18:00 Miscellaneous Information 1 ea NOTE XX ; Start 08/02/18 at 13:30 Glucose (Glutose) 15 gm Q15M PRN PO DECREASED GLUCOSE; Start 08/02/18 at 13:30 Glucose (Glutose) 22.5 gm Q15M PRN PO DECREASED GLUCOSE; Start 08/02/18 at 13:30 Dextrose (D50w Syringe) 25 ml Q15M PRN IV DECREASED GLUCOSE; Start 08/02/18 at 13:30 Dextrose (D50w Syringe) 50 ml Q15M PRN IV DECREASED GLUCOSE; Start 08/02/18 at 13:30 Glucagon (Glucagen) 1 mg Q15M PRN IM DECREASED GLUCOSE; Start 08/02/18 at 13:30 Glucose (Glutose) 15 gm Q15M PRN BUCCAL DECREASED GLUCOSE; Start 08/02/18 at 13:30 Cholecalciferol (Vitamin D) 1,000 unit DAILY PO Last administered on 08/05/18at 08:17; Admin Dose 1,000 UNIT; Start 08/03/18 at 09:00 Folic Acid (Folic Acid) 1 mg DAILY PO Last administered on 08/05/18at 08:17; Admin Dose 1 MG; Start 08/03/18 at 09:00 Levothyroxine Sodium (Synthroid) 50 mcg BEFORE BREAKFAST PO Last administered on 08/04/18at 06:36; Admin Dose 50 MCG; Start 08/03/18 at 07:00 Nortriptyline HCl (Aventyl) 10 mg TID PO Last administered on 08/05/18at 08:17; Admin Dose 10 MG; Start 08/02/18 at 21:00 Sevelamer Carbonate (Renvela) 0.8 gm AC MEALS PO Last administered on 08/04/18at 17:41; Admin Dose 0.8 GM; Start 08/02/18 at 17:30 Midodrine (Proamatine) 5 mg ON DIALYSIS DAYS PO Last administered on 08/03/18at 10:08; Admin Dose 5 MG; Start 08/02/18 at 18:00 Insulin Glargine (Lantus) 15 units DAILY@0800 SC Last administered on 08/04/18at 08:35; Admin Dose 15 UNITS; Start 08/03/18 at 12:00 NNEKA FRITZ MD Aug 05, 2018 11:36
--- NOTE | 2018-08-05 12:14 | PN ---
Date/Time of Note Date/Time of Note DATE: 08/05/18 TIME: 12:12 Assessment/Plan VTE Prophylaxis Risk score (from [facility])>0 risk: 6 SCD applied (from [facility] [place]): Yes Pharmacological prophylaxis: NA/contraindicated Pharm contraindication: surgical contra Lines/Catheters IV [facility] Type (from [facility] [place] Assessment/Plan Hospital Course 1. 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 Cam appreciated, patient will likely need a hemicolectomy this week 2. End-stage renal disease Nephrology consultation appreciated 3. Diabetes Continue Lantus but at a decreased dose relative to home dose as sugars were low upon arrival, continue sliding scale 4. Esophagitis Continue PPI 5. Hypothyroidism Continue home Synthroid 6. Persistent cough-resolved Follow-up on chest x-ray Prophylaxis: SCDs DC planning: Colonoscopy today, likely hemicolectomy this week Result Diagram: 08/05/18 0651 08/05/18 0651 Results 24hrs Laboratory Tests Test 08/04/18 17:40 08/04/18 20:41 08/05/18 06:51 08/05/18 07:56 Bedside Glucose 78 136 108 White Blood Count 7.6 # Red Blood Count 3.08 L Hemoglobin 9.6 L Hematocrit 31.2 L Mean Corpuscular 101.3 H Volume Mean Corpuscular 31.2 Hemoglobin Mean Corpuscular 30.8 L Hemoglobin Concent Red Cell 17.1 H Distribution Width Platelet Count 280 Mean Platelet Volume 10.6 H Immature 0.500 H Granulocytes % Neutrophils % 65.3 Lymphocytes % 15.8 Monocytes % 11.8 H Eosinophils % 5.5 Basophils % 1.1 Nucleated Red Blood 0.0 Cells % Immature 0.040 H Granulocytes # Neutrophils # 5.0 Lymphocytes # 1.2 Monocytes # 0.9 Eosinophils # 0.4 Basophils # 0.1 Nucleated Red Blood 0.0 Cells # Prothrombin Time 14.3 Prothrombin Time 1.1 Ratio INR International 1.10 Normalized Ratio Sodium Level 137 Potassium Level 4.5 Chloride Level 91 L Carbon Dioxide Level 29 Anion Gap 17 H Blood Urea Nitrogen 33 H Creatinine 6.77 H Est Glomerular Filtrat Rate mL/min Glucose Level 88 # Calcium Level 8.1 L Total Bilirubin 0.0 L Direct Bilirubin 0.00 Indirect Bilirubin 0.0 Aspartate Amino 12 L Transf (AST/SGOT) Alanine 14 Aminotransferase (AL T/SGPT) Alkaline Phosphatase 98 Total Protein 6.2 Albumin 2.9 L Globulin 3.30 H Albumin/Globulin 0.87 Ratio Subjective 24 Hr Interval Summary Constitutional: no complaints Exam/Review of Systems Exam Vitals Vital Signs Date Temp Pulse Resp B/P (MAP) Pulse Ox O2 O2 Flow FiO2 Time Delivery Rate 08/05/18 98 11:45 08/05/18 97.6 20 118/73 96 11:16 (88) 08/05/18 Room Air 09:30 08/02/18 2.0 15:13 Intake and Output 08/04/18 08/04/18 08/05/18 1515:00 23:00 07:00 IntakeIntake Total 240 ml BalanceBalance 240 ml Constitutional: alert, oriented Respiratory: clear to auscultation Cardiovascular: regular rate and rhythm Gastrointestinal: soft; No distended Musculoskeletal: nl extremities to inspection Results Results 24hrs Laboratory Tests Test 08/04/18 17:40 08/04/18 20:41 08/05/18 06:51 08/05/18 07:56 Bedside Glucose 78 136 108 White Blood Count 7.6 # Red Blood Count 3.08 L Hemoglobin 9.6 L Hematocrit 31.2 L Mean Corpuscular 101.3 H Volume Mean Corpuscular 31.2 Hemoglobin Mean Corpuscular 30.8 L Hemoglobin Concent Red Cell 17.1 H Distribution Width Platelet Count 280 Mean Platelet Volume 10.6 H Immature 0.500 H Granulocytes % Neutrophils % 65.3 Lymphocytes % 15.8 Monocytes % 11.8 H Eosinophils % 5.5 Basophils % 1.1 Nucleated Red Blood 0.0 Cells % Immature 0.040 H Granulocytes # Neutrophils # 5.0 Lymphocytes # 1.2 Monocytes # 0.9 Eosinophils # 0.4 Basophils # 0.1 Nucleated Red Blood 0.0 Cells # Prothrombin Time 14.3 Prothrombin Time 1.1 Ratio INR International 1.10 Normalized Ratio Sodium Level 137 Potassium Level 4.5 Chloride Level 91 L Carbon Dioxide Level 29 Anion Gap 17 H Blood Urea Nitrogen 33 H Creatinine 6.77 H Est Glomerular Filtrat Rate mL/min Glucose Level 88 # Calcium Level 8.1 L Total Bilirubin 0.0 L Direct Bilirubin 0.00 Indirect Bilirubin 0.0 Aspartate Amino 12 L Transf (AST/SGOT) Alanine 14 Aminotransferase (AL T/SGPT) Alkaline Phosphatase 98 Total Protein 6.2 Albumin 2.9 L Globulin 3.30 H Albumin/Globulin 0.87 Ratio Medications Medication Current Medications IV Flush (NS 3 ml) 3 ml PER PROTOCOL IV ; Start 08/02/18 at 13:00 Ondansetron HCl (Zofran Inj) 4 mg Q6H PRN IV NAUSEA/VOMITING; Start 08/02/18 at 13:00 Acetaminophen (Tylenol Tab) 650 mg Q6H PRN PO .PAIN 1-3 OR TEMP; Start 08/02/18 at 13:00 Acetaminophen/ Hydrocodone Bitart ([place] (5/325)) 1 tab Q6H PRN PO .MOD PAIN 4- 6; Start 08/02/18 at 13:00 Morphine Sulfate (morphine) 2 mg Q4H PRN IV .SEVERE PAIN 7-10; Start 08/02/18 at 13:00 Docusate Sodium (Colace) 100 mg Q12H PRN PO .CONSTIPATION; Start 08/02/18 at 13:00 Magnesium Hydroxide (Milk Of Mag) 30 ml DAILY PRN PO .CONSTIPATION; Start 08/02/18 at 13:00 Zolpidem Tartrate (Ambien) 5 mg QHS PRN PO .INSOMNIA; Start 08/02/18 at 13:00 Famotidine (Pepcid) 20 mg DAILY PO Last administered on 08/05/18at 08:18; Admin Dose 20 MG; Start 08/02/18 at 21:00 Diagnostic Test (Pha) (Accu-Chek) 1 ea 02 XX ; Start 08/03/18 at 02:00 Insulin Aspart (Novolog Insulin Pen) NOVOLOG *MILD* ALGORITHM WITH MEALS BEDTIME SC Last administered on 08/03/18at 17:21; Admin Dose 2 UNIT; Start 08/02/18 at 18:00 Miscellaneous Information 1 ea NOTE XX ; Start 08/02/18 at 13:30 Glucose (Glutose) 15 gm Q15M PRN PO DECREASED GLUCOSE; Start 08/02/18 at 13:30 Glucose (Glutose) 22.5 gm Q15M PRN PO DECREASED GLUCOSE; Start 08/02/18 at 13:30 Dextrose (D50w Syringe) 25 ml Q15M PRN IV DECREASED GLUCOSE; Start 08/02/18 at 13:30 Dextrose (D50w Syringe) 50 ml Q15M PRN IV DECREASED GLUCOSE; Start 08/02/18 at 13:30 Glucagon (Glucagen) 1 mg Q15M PRN IM DECREASED GLUCOSE; Start 08/02/18 at 13:30 Glucose (Glutose) 15 gm Q15M PRN BUCCAL DECREASED GLUCOSE; Start 08/02/18 at 13:30 Cholecalciferol (Vitamin D) 1,000 unit DAILY PO Last administered on 08/05/18 08:17; Admin Dose 1,000 UNIT; Start 08/03/18 at 09:00 Folic Acid (Folic Acid) 1 mg DAILY PO Last administered on 08/05/18 08:17; Admin Dose 1 MG; Start 08/03/18 at 09:00 Levothyroxine Sodium (Synthroid) 50 mcg BEFORE BREAKFAST PO Last administered on 08/04/18 06:36; Admin Dose 50 MCG; Start 08/03/18 at 07:00 Nortriptyline HCl (Aventyl) 10 mg TID PO Last administered on 08/05/18 08:17; Admin Dose 10 MG; Start 08/02/18 at 21:00 Sevelamer Carbonate (Renvela) 0.8 gm AC MEALS PO Last administered on 08/04/18 17:41; Admin Dose 0.8 GM; Start 08/02/18 at 17:30 Midodrine (Proamatine) 5 mg ON DIALYSIS DAYS PO Last administered on 08/03/18 10:08; Admin Dose 5 MG; Start 08/02/18 at 18:00 Insulin Glargine (Lantus) 15 units DAILY@0800 SC Last administered on 08/04/18 08:35; Admin Dose 15 UNITS; Start 08/03/18 at 12:00 MILAGRO KENNEDY Aug 05, 2018 12:14
[2018-08-05] MEDS ORDERED: PROPOFOL 0 ML ONE (12:28)
[2018-08-05] MEDS ORDERED: FENTAnyl 50 MCG/ML VIAL IV PRN ×3 (13:00)
[2018-08-05] MEDS ORDERED: ONDANSETRON 4 MG INJ IV PRN (13:00)
--- NOTE | 2018-08-05 15:21 | QN ---
Documentation Comment Due to logistics to EGD/colonoscopy has been rescheduled for tomorrow. Will order tap water enema x1 in the AM to aid in prep for colonoscopy ALANA CASTANEDA Aug 05, 2018 15:21
[2018-08-06] VITALS (22 sets, daily range): BP systolic 80–147; BP diastolic 43–100; PULSE 85–99; RESP 14–24
[2018-08-06] MEDS: ACCU-CHEK XX SCH (02:00)
--- NOTE | 2018-08-06 02:32 | QN ---
Documentation Comment GI Interim Note. EGD/colonoscopy scheduled for patient, however hemodialysis ran over the promised time and thus patient has been rebooked to 08/06. Due to scheduling difficulties, unable to perform procedures 08/05. Pt on schedule for a repeat THIERRY DAMON Aug 06, 2018 02:31
[2018-08-06] MEDS: LEVOTHYROXINE 50 MCG TAB PO SCH (06:33)
[2018-08-06] MEDS: INSULIN ASPART [NOVOLOG] 3 ML PEN SC SCH ×4 (07:55→21:00)
[2018-08-06] MEDS: INSULIN GLARGINE [LANTus] (100 UNITS/ML) SYG SC SCH (08:00)
[2018-08-06] MEDS: SEVELAMER CARBONATE 0.8 GM PKT PO SCH ×3 (09:11→18:40)
[2018-08-06] MEDS: NORTRIPTYLINE 10 MG CAP PO SCH ×3 (09:11→20:57)
[2018-08-06] MEDS: CHOLECALCIFEROL 1,000 UNIT TAB PO SCH (09:13)
[2018-08-06] MEDS: FAMOTIDINE 20 MG TAB PO SCH (09:13)
[2018-08-06] MEDS: FOLIC ACID 1 MG TAB PO SCH (09:14)
--- NOTE | 2018-08-06 09:38 | PN ---
Date/Time of Note Date/Time of Note DATE: 08/06/18 TIME: 09:33 Assessment/Plan VTE Prophylaxis Risk score (from N[facility])>0 risk: 9 SCD applied (from [facility]): Yes Pharmacological prophylaxis: other Lines/Catheters IV Catheter Type (from [facility]rs[facility]): PICC Line Central line still needed: Yes Assessment/Plan Hospital Course A/P: 78 M p/w: 1. 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 Cam appreciated, patient will likely need a hemicolectomy this week 2. End-stage renal disease-Nephrology consultation appreciated -Monitor, follow-up renal recommendations, monitor BUN/creatinine level 3. Diabetes -,Continue current lower Lantus mdose relative to home dose as sugars were low upon arrival - continue sliding scale 4. Esophagitis -Continue PPI 5. Hypothyroidism -Continue home Synthroid 6. Persistent cough-resolved - monitor Prophylaxis: SCDs DC planning: Colonoscopy today, likely hemicolectomy this week Result Diagram: 08/05/18 0651 08/05/18 0651 Results 24hrs Laboratory Tests Test 08/05/18 12:06 08/05/18 17:01 08/05/18 20:43 08/06/18 07:46 Bedside Glucose 89 121 112 88 Subjective 24 Hr Interval Summary Free Text/Dictation No acute events overnight, now awaiting EGD colonoscopy for later today. Exam/Review of Systems Exam Vitals Vital Signs Date Temp Pulse Resp B/P (MAP) Pulse Ox O2 O2 Flow FiO2 Time Delivery Rate 08/06/18 85 08:48 08/06/18 97.9 19 114/58 95 07:27 (76) 08/06/18 Room Air 03:28 08/02/18 2.0 15:13 Intake and Output 08/05/18 08/05/18 08/06/18 1515:00 23:00 07:00 IntakeIntake Total 300 ml 500 ml OutputOutput Total 2400 ml BalanceBalance -2400 ml 300 ml 500 ml Exam Constitutional: alert, oriented Respiratory: clear to auscultation Cardiovascular: regular rate and rhythm Gastrointestinal: soft; No distended Musculoskeletal: nl extremities to inspection Results Results 24hrs Laboratory Tests Test 08/05/18 12:06 08/05/18 17:01 08/05/18 20:43 08/06/18 07:46 Bedside Glucose 89 121 112 88 Medications Medication Current Medications IV Flush (NS 3 ml) 3 ml PER PROTOCOL IV ; Start 08/02/18 at 13:00 Ondansetron HCl (Zofran Inj) 4 mg Q6H PRN IV NAUSEA/VOMITING; Start 08/02/18 at 13:00 Acetaminophen (Tylenol Tab) 650 mg Q6H PRN PO .PAIN 1-3 OR TEMP; Start 08/02/18 at 13:00 Acetaminophen/ Hydrocodone Bitart ([place] (5/325)) 1 tab Q6H PRN PO .MOD PAIN 4- 6; Start 08/02/18 at 13:00 Morphine Sulfate (morphine) 2 mg Q4H PRN IV .SEVERE PAIN 7-10; Start 08/02/18 at 13:00 Docusate Sodium (Colace) 100 mg Q12H PRN PO .CONSTIPATION; Start 08/02/18 at 13:00 Magnesium Hydroxide (Milk Of Mag) 30 ml DAILY PRN PO .CONSTIPATION; Start 08/02/18 at 13:00 Zolpidem Tartrate (Ambien) 5 mg QHS PRN PO .INSOMNIA; Start 08/02/18 at 13:00 Famotidine (Pepcid) 20 mg DAILY PO Last administered on 08/06/18at 09:13; Admin Dose 20 MG; Start 08/02/18 at 21:00 Diagnostic Test (Pha) (Accu-Chek) 1 ea 02 XX ; Start 08/03/18 at 02:00 Insulin Aspart (Novolog Insulin Pen) NOVOLOG *MILD* ALGORITHM WITH MEALS BEDTIME SC Last administered on 08/03/18at 17:21; Admin Dose 2 UNIT; Start 08/02/18 at 18:00 Miscellaneous Information 1 ea NOTE XX ; Start 08/02/18 at 13:30 Glucose (Glutose) 15 gm Q15M PRN PO DECREASED GLUCOSE; Start 08/02/18 at 13:30 Glucose (Glutose) 22.5 gm Q15M PRN PO DECREASED GLUCOSE; Start 08/02/18 at 13:30 Dextrose (D50w Syringe) 25 ml Q15M PRN IV DECREASED GLUCOSE; Start 08/02/18 at 13:30 Dextrose (D50w Syringe) 50 ml Q15M PRN IV DECREASED GLUCOSE; Start 08/02/18 at 13:30 Glucagon (Glucagen) 1 mg Q15M PRN IM DECREASED GLUCOSE; Start 08/02/18 at 13:30 Glucose (Glutose) 15 gm Q15M PRN BUCCAL DECREASED GLUCOSE; Start 08/02/18 at 13:30 Cholecalciferol (Vitamin D) 1,000 unit DAILY PO Last administered on 08/06/18 09:13; Admin Dose 1,000 UNIT; Start 08/03/18 at 09:00 Folic Acid (Folic Acid) 1 mg DAILY PO Last administered on 08/06/18 09:14; Admin Dose 1 MG; Start 08/03/18 at 09:00 Levothyroxine Sodium (Synthroid) 50 mcg BEFORE BREAKFAST PO Last administered on 08/06/18 06:33; Admin Dose 50 MCG; Start 08/03/18 at 07:00 Nortriptyline HCl (Aventyl) 10 mg TID PO Last administered on 08/06/18 09:11; Admin Dose 10 MG; Start 08/02/18 at 21:00 Sevelamer Carbonate (Renvela) 0.8 gm AC MEALS PO Last administered on 08/06/18 09:11; Admin Dose 0.8 GM; Start 08/02/18 at 17:30 Midodrine (Proamatine) 5 mg ON DIALYSIS DAYS PO Last administered on 08/03/18 10:08; Admin Dose 5 MG; Start 08/02/18 at 18:00 Insulin Glargine (Lantus) 15 units DAILY@0800 SC Last administered on 08/04/18 08:35; Admin Dose 15 UNITS; Start 08/03/18 at 12:00 BRANDON العلي Aug 06, 2018 09:38
--- NOTE | 2018-08-06 14:22 | CONS ---
Assessment/Plan Assessment/Plan Assessment/Plan (Daily) 78 y/o with 1 End-stage renal disease, on hemodialysis, tts 2. 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 Hypotension.BETTER 4. History of congestive heart failure. 5. Hypercholesterolemia. 6. Total hip replacement. 7. Leukocytosis. 8. Hypoglycemia. 9. MAcrocytic hypochromic Anemia mixed etiology, recent blood loss and 2/2 kidney disease 10. Hypothyroidism Plan -EGD and colonoscopy today -HD tmw -Midodrine on dialysis days -Renally Dose all meds -Avoid nephrotoxic agents. Consultation Date/Type/Reason Admit Date/Time EGD and colonoscopy planned today. Initial Consult Date 08/03/18 Date/Time of Note DATE: 08/06/18 TIME: 14:20 Exam/Review of Systems Exam Vitals Vital Signs Date Temp Pulse Resp B/P (MAP) Pulse Ox O2 O2 Flow FiO2 Time Delivery Rate 08/06/18 92 12:16 08/06/18 98.1 118/57 96 11:25 (77) 08/06/18 Room Air 03:28 08/02/18 2.0 15:13 Intake and Output 08/05/18 08/05/18 08/06/18 1515:00 23:00 07:00 IntakeIntake Total 300 ml 500 ml OutputOutput Total 2400 ml BalanceBalance -2400 ml 300 ml 500 ml Exam Respiratory: clear to auscultation, diminished breath sounds Cardiovascular: regular rate and rhythm Gastrointestinal: soft, bowel sounds (+) Extremities: No edema hero graft Results Result Diagram: 08/05/18 0651 08/05/18 0651 Results 24hrs Laboratory Tests Test 08/05/18 17:01 08/05/18 20:43 08/06/18 07:46 08/06/18 11:39 Bedside Glucose 121 112 88 81 Medications Medication Current Medications IV Flush (NS 3 ml) 3 ml PER PROTOCOL IV ; Start 08/02/18 at 13:00 Ondansetron HCl (Zofran Inj) 4 mg Q6H PRN IV NAUSEA/VOMITING; Start 08/02/18 at 13:00 Acetaminophen (Tylenol Tab) 650 mg Q6H PRN PO .PAIN 1-3 OR TEMP Last administered on 08/06/18at 12:57; Admin Dose 650 MG; Start 08/02/18 at 13:00 Acetaminophen/ Hydrocodone Bitart ([place] (5/325)) 1 tab Q6H PRN PO .MOD PAIN 4- 6; Start 08/02/18 at 13:00 Morphine Sulfate (morphine) 2 mg Q4H PRN IV .SEVERE PAIN 7-10; Start 08/02/18 at 13:00 Docusate Sodium (Colace) 100 mg Q12H PRN PO .CONSTIPATION; Start 08/02/18 at 13:00 Magnesium Hydroxide (Milk Of Mag) 30 ml DAILY PRN PO .CONSTIPATION; Start 08/02/18 at 13:00 Zolpidem Tartrate (Ambien) 5 mg QHS PRN PO .INSOMNIA; Start 08/02/18 at 13:00 Famotidine (Pepcid) 20 mg DAILY PO Last administered on 08/06/18at 09:13; Admin Dose 20 MG; Start 08/02/18 at 21:00 Diagnostic Test (Pha) (Accu-Chek) 1 ea 02 XX ; Start 08/03/18 at 02:00 Insulin Aspart (Novolog Insulin Pen) NOVOLOG *MILD* ALGORITHM WITH MEALS BEDTIME SC Last administered on 08/03/18at 17:21; Admin Dose 2 UNIT; Start 08/02/18 at 18:00 Miscellaneous Information 1 ea NOTE XX ; Start 08/02/18 at 13:30 Glucose (Glutose) 15 gm Q15M PRN PO DECREASED GLUCOSE; Start 08/02/18 at 13:30 Glucose (Glutose) 22.5 gm Q15M PRN PO DECREASED GLUCOSE; Start 08/02/18 at 13:30 Dextrose (D50w Syringe) 25 ml Q15M PRN IV DECREASED GLUCOSE; Start 08/02/18 at 13:30 Dextrose (D50w Syringe) 50 ml Q15M PRN IV DECREASED GLUCOSE; Start 08/02/18 at 13:30 Glucagon (Glucagen) 1 mg Q15M PRN IM DECREASED GLUCOSE; Start 08/02/18 at 13:30 Glucose (Glutose) 15 gm Q15M PRN BUCCAL DECREASED GLUCOSE; Start 08/02/18 at 13:30 Cholecalciferol (Vitamin D) 1,000 unit DAILY PO Last administered on 08/06/18at 09:13; Admin Dose 1,000 UNIT; Start 08/03/18 at 09:00 Folic Acid (Folic Acid) 1 mg DAILY PO Last administered on 08/06/18 09:14; Admin Dose 1 MG; Start 08/03/18 at 09:00 Levothyroxine Sodium (Synthroid) 50 mcg BEFORE BREAKFAST PO Last administered on 08/06/18 06:33; Admin Dose 50 MCG; Start 08/03/18 at 07:00 Nortriptyline HCl (Aventyl) 10 mg TID PO Last administered on 08/06/18 11:48; Admin Dose 10 MG; Start 08/02/18 at 21:00 Sevelamer Carbonate (Renvela) 0.8 gm AC MEALS PO Last administered on 08/06/18 11:47; Admin Dose 0.8 GM; Start 08/02/18 at 17:30 Midodrine (Proamatine) 5 mg ON DIALYSIS DAYS PO Last administered on 08/03/18 10:08; Admin Dose 5 MG; Start 08/02/18 at 18:00 Insulin Glargine (Lantus) 15 units DAILY@0800 SC Last administered on 08/04/18 08:35; Admin Dose 15 UNITS; Start 08/03/18 at 12:00 NNEKA FRITZ MD Aug 06, 2018 14:22
--- NOTE | 2018-08-06 16:06 | PREAC ---
Date/Time of Note Date/Time of Note DATE: 08/06/18 TIME: 16:06 Anesthesia Eval and Record Evaluation Time Pre-Procedure Interview DATE: 08/06/18 TIME: 16:06 Age 78 Sex male NPO: 8 hrs Meds Active Scripts Hydrocodone/Acetaminophen ([place] 5-325 Tablet) 1 Each Tablet, 1 EACH PO Q8 PRN for PAIN, #21 TAB Prov:DULCE GALINDO J 03/29/17 Reported Medications Midodrine* (Midodrine*) 5 Mg Tablet, 5 MG PO DAILY, TAB THE DAYS OF DIALYSIS 08/02/18 Nortriptyline Hcl* (Nortriptyline Hcl*) 10 Mg Capsule, 10 MG PO TID, CAP 08/02/18 Aspirin* (Aspirin* Chew) 81 Mg Tab.chew, 81 MG PO DAILY, TAB.CHEW 08/02/18 Cholecalciferol* (Vitamin D3*) 1,000 Unit Tablet, 1000 UNIT PO DAILY, TAB 03/28/17 Cyanocobalamin* (Vitamin B12*) Unknown Strength Tab, 1 TAB PO Q MON,FRI, TAB 03/28/17 Sevelamer Carbonate* (Renvela*) 800 Mg Tablet, 0.8 GM PO WITH MEALS BID, TAB 03/28/17 Levothyroxine Sodium* (Synthroid*) 50 Mcg Tablet, 50 MCG PO BEFORE BREAKFAST, #30 TAB 08/21/16 Atorvastatin Calcium* (Atorvastatin Calcium*) 20 Mg Tablet, 20 MG PO QHS, #30 TAB 08/21/16 Folic Acid* (Folic Acid*) 1 Mg Tablet, 1 MG PO DAILY, TAB 08/21/16 Insulin Lispro (Humalog) 100 Unit/1 Ml Cartridge, 0 SQ TID SLIDING SCALES 08/21/16 Insulin Glargine* (Lantus*) 100 Unit/Ml Soln, 20 UNIT SC BID, #1 VIAL 08/21/16 Discontinued Reported Medications Amitriptyline Hcl* (Amitriptyline Hcl*) 75 Mg Tablet, 37.5 MG PO QHS, #30 TAB 08/21/16 Current Medications IV Flush (NS 3 ml) 3 ml PER PROTOCOL IV ; Start 08/02/18 at 13:00 Ondansetron HCl (Zofran Inj) 4 mg Q6H PRN IV NAUSEA/VOMITING; Start 08/02/18 at 13:00 Acetaminophen (Tylenol Tab) 650 mg Q6H PRN PO .PAIN 1-3 OR TEMP Last administered on 08/06/18at 12:57; Admin Dose 650 MG; Start 08/02/18 at 13:00 Acetaminophen/ Hydrocodone Bitart ([place] (5/325)) 1 tab Q6H PRN PO .MOD PAIN 4- 6; Start 08/02/18 at 13:00 Morphine Sulfate (morphine) 2 mg Q4H PRN IV .SEVERE PAIN 7-10; Start 08/02/18 at 13:00 Docusate Sodium (Colace) 100 mg Q12H PRN PO .CONSTIPATION; Start 08/02/18 at 13:00 Magnesium Hydroxide (Milk Of Mag) 30 ml DAILY PRN PO .CONSTIPATION; Start 08/02/18 at 13:00 Zolpidem Tartrate (Ambien) 5 mg QHS PRN PO .INSOMNIA; Start 08/02/18 at 13:00 Famotidine (Pepcid) 20 mg DAILY PO Last administered on 08/06/18at 09:13; Admin Dose 20 MG; Start 08/02/18 at 21:00 Diagnostic Test (Pha) (Accu-Chek) 1 ea 02 XX ; Start 08/03/18 at 02:00 Insulin Aspart (Novolog Insulin Pen) NOVOLOG *MILD* ALGORITHM WITH MEALS BEDTIME SC Last administered on 08/03/18at 17:21; Admin Dose 2 UNIT; Start 08/02/18 at 18:00 Miscellaneous Information 1 ea NOTE XX ; Start 08/02/18 at 13:30 Glucose (Glutose) 15 gm Q15M PRN PO DECREASED GLUCOSE; Start 08/02/18 at 13:30 Glucose (Glutose) 22.5 gm Q15M PRN PO DECREASED GLUCOSE; Start 08/02/18 at 13:30 Dextrose (D50w Syringe) 25 ml Q15M PRN IV DECREASED GLUCOSE; Start 08/02/18 at 13:30 Dextrose (D50w Syringe) 50 ml Q15M PRN IV DECREASED GLUCOSE; Start 08/02/18 at 13:30 Glucagon (Glucagen) 1 mg Q15M PRN IM DECREASED GLUCOSE; Start 08/02/18 at 13:30 Glucose (Glutose) 15 gm Q15M PRN BUCCAL DECREASED GLUCOSE; Start 08/02/18 at 13:30 Cholecalciferol (Vitamin D) 1,000 unit DAILY PO Last administered on 08/06/18 09:13; Admin Dose 1,000 UNIT; Start 08/03/18 at 09:00 Folic Acid (Folic Acid) 1 mg DAILY PO Last administered on 08/06/18 09:14; Admin Dose 1 MG; Start 08/03/18 at 09:00 Levothyroxine Sodium (Synthroid) 50 mcg BEFORE BREAKFAST PO Last administered on 08/06/18 06:33; Admin Dose 50 MCG; Start 08/03/18 at 07:00 Nortriptyline HCl (Aventyl) 10 mg TID PO Last administered on 08/06/18 11:48; Admin Dose 10 MG; Start 08/02/18 at 21:00 Sevelamer Carbonate (Renvela) 0.8 gm AC MEALS PO Last administered on 08/06/18 11:47; Admin Dose 0.8 GM; Start 08/02/18 at 17:30 Midodrine (Proamatine) 5 mg ON DIALYSIS DAYS PO Last administered on 08/03/18 10:08; Admin Dose 5 MG; Start 08/02/18 at 18:00 Insulin Glargine (Lantus) 15 units DAILY@0800 SC Last administered on 08/04/18 08:35; Admin Dose 15 UNITS; Start 08/03/18 at 12:00 Allergies Coded Allergies: hydromorphone (Verified Allergy, Unknown, UNKNOWN, 08/02/18) Labs/Studies Result Diagram: 08/05/18 0651 08/05/18 0651 Pre-procedure Exam Last vitals Vital Signs Date Temp Pulse Resp B/P (MAP) Pulse Ox O2 O2 Flow FiO2 Time Delivery Rate 08/06/18 98.0 93 19 117/59 96 15:28 (78) 08/06/18 Room Air 03:28 08/02/18 2.0 15:13 Pre-operative Attestations Prior to commencing anesthesia and surgery, the patient was re-evaluated, there was verification of: *The patient's identity *The results of appropriate recent lab work and preoperative vital signs *The above evaluation not changing prior to induction *Anesthetic plan, risk benefits, alternative and complications discussed with patient/family; questions answered; patient/family understands, accepts and wishes to proceed. MOISES GALINDO MD Aug 06, 2018 16:06
[2018-08-06] MEDS ORDERED: PROPOFOL 20 ML ONE ×2 (16:08)
--- NOTE | 2018-08-06 19:10 | PAC ---
Date/Time of Note Date/Time of Note DATE: 08/06/18 TIME: 19:10 Post-Anesthesia Notes Post-Anesthesia Note Last documented vital signs Vital Signs Date Temp Pulse Resp B/P (MAP) Pulse Ox O2 O2 Flow FiO2 Time Delivery Rate 08/06/18 17 80/58 (65) 100 Nasal 3.0 17:57 Cannula 08/06/18 98.0 88 17:14 Activity: WNL Respiratory function: WNL Cardiovascular function: WNL Mental status: Baseline Pain reasonably controlled: Yes Hydration appropriate: Yes Nausea/Vomiting absent: Yes MOISES GALINDO MD Aug 06, 2018 19:10
[2018-08-06] MEDS ORDERED: morphine LIQ (10 MG/5 ML) CUP PO PRN (23:30)
[2018-08-07] VITALS (23 sets, daily range): BP systolic 99–146; BP diastolic 45–100; PULSE 87–101; RESP 17–19
[2018-08-07] MEDS: ACCU-CHEK XX SCH (02:00)
[2018-08-07] MEDS: LEVOTHYROXINE 50 MCG TAB PO SCH (05:57)
[2018-08-07] MEDS: INSULIN ASPART [NOVOLOG] 3 ML PEN SC SCH ×4 (07:55→20:11)
[2018-08-07] MEDS: SEVELAMER CARBONATE 0.8 GM PKT PO SCH ×3 (08:07→17:49)
[2018-08-07] MEDS: NORTRIPTYLINE 10 MG CAP PO SCH ×3 (08:08→20:02)
[2018-08-07] MEDS: CHOLECALCIFEROL 1,000 UNIT TAB PO SCH (08:08)
[2018-08-07] MEDS: FAMOTIDINE 20 MG TAB PO SCH (08:08)
[2018-08-07] MEDS: FOLIC ACID 1 MG TAB PO SCH (08:08)
[2018-08-07] MEDS: INSULIN GLARGINE [LANTus] (100 UNITS/ML) SYG SC SCH (08:22)
[2018-08-07] MEDS: MIDODRINE 5 MG TAB PO SCH (09:54)
--- NOTE | 2018-08-07 10:45 | CONS ---
Assessment/Plan Assessment/Plan Assessment/Plan (Daily) 1 End-stage renal disease, on hemodialysis, 2. 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 Hypotension.BETTER 4. History of congestive heart failure. 5. Hypercholesterolemia. 6. Total hip replacement. 7. Leukocytosis. 8. Hypoglycemia. 9. MAcrocytic hypochromic Anemia mixed etiology, recent blood loss and 2/2 kidney disease 10. Hypothyroidism Plan - HD today -Hemicolectomy per surgery will have to coordinate with dialysis days -Midodrine on dialysis days -Renally Dose all meds -Avoid nephrotoxic agents. Consultation Date/Type/Reason Admit Date/Time Aug 02, 2018 at 10:57 Initial Consult Date 08/03/18 Date/Time of Note DATE: 08/07/18 TIME: 10:45 24 HR Interval Summary Free Text/Dictation Status post colonoscopy. With 2: Masses HD in progress Exam/Review of Systems Exam Vitals Vital Signs Date Temp Pulse Resp B/P (MAP) Pulse Ox O2 O2 Flow FiO2 Time Delivery Rate 08/07/18 101 08:27 08/07/18 97.5 19 104/51 95 07:27 (68) 08/07/18 Nasal 03:35 Cannula 08/06/18 3.0 17:57 Intake and Output 08/06/18 08/06/18 08/07/18 1515:00 23:00 07:00 IntakeIntake Total 150 ml 300 ml BalanceBalance 150 ml 300 ml Exam Respiratory: clear to auscultation, diminished breath sounds Cardiovascular: regular rate and rhythm Gastrointestinal: soft, bowel sounds (+) Extremities: No edema hero graft Results Result Diagram: 08/07/18 0537 08/07/18 0537 Results 24hrs Laboratory Tests Test 08/06/18 11:39 08/06/18 18:09 08/06/18 20:56 08/07/18 05:37 Bedside Glucose 81 71 116 White Blood Count 9.2 # Red Blood Count 3.39 L Hemoglobin 10.4 L Hematocrit 34.7 L Mean Corpuscular 102.4 H Volume Mean Corpuscular 30.7 Hemoglobin Mean Corpuscular 30.0 L Hemoglobin Concent Red Cell 17.1 H Distribution Width Platelet Count 233 Mean Platelet Volume 11.0 H Immature 0.500 H Granulocytes % Neutrophils % 75.0 Lymphocytes % 10.6 L Monocytes % 8.7 Eosinophils % 4.2 Basophils % 1.0 Nucleated Red Blood 0.0 Cells % Immature 0.050 H Granulocytes # Neutrophils # 6.9 Lymphocytes # 1.0 Monocytes # 0.8 Eosinophils # 0.4 Basophils # 0.1 Nucleated Red Blood 0.0 Cells # Sodium Level 136 Potassium Level 5.6 H Chloride Level 97 Carbon Dioxide Level 26 Anion Gap 13 Blood Urea Nitrogen 29 H Creatinine 6.73 H Est Glomerular Filtrat Rate mL/min Glucose Level 135 # Calcium Level 8.3 L Phosphorus Level 7.0 H Magnesium Level 1.9 Test 08/07/18 08:06 Bedside Glucose 136 Medications Medication Current Medications IV Flush (NS 3 ml) 3 ml PER PROTOCOL IV ; Start 08/02/18 at 13:00 Ondansetron HCl (Zofran Inj) 4 mg Q6H PRN IV NAUSEA/VOMITING; Start 08/02/18 at 13:00 Acetaminophen (Tylenol Tab) 650 mg Q6H PRN PO .PAIN 1-3 OR TEMP Last administered on 08/06/18at 12:57; Admin Dose 650 MG; Start 08/02/18 at 13:00 Acetaminophen/ Hydrocodone Bitart ([employer] (5/325)) 1 tab Q6H PRN PO .MOD PAIN 4- 6; Start 08/02/18 at 13:00 Docusate Sodium (Colace) 100 mg Q12H PRN PO .CONSTIPATION; Start 08/02/18 at 13:00 Magnesium Hydroxide (Milk Of Mag) 30 ml DAILY PRN PO .CONSTIPATION; Start 08/02/18 at 13:00 Zolpidem Tartrate (Ambien) 5 mg QHS PRN PO .INSOMNIA; Start 08/02/18 at 13:00 Famotidine (Pepcid) 20 mg DAILY PO Last administered on 08/07/18at 08:08; Admin Dose 20 MG; Start 08/02/18 at 21:00 Diagnostic Test (Pha) (Accu-Chek) 1 ea 02 XX ; Start 08/03/18 at 02:00 Insulin Aspart (Novolog Insulin Pen) NOVOLOG *MILD* ALGORITHM WITH MEALS BEDTIME SC Last administered on 08/03/18at 17:21; Admin Dose 2 UNIT; Start 08/02/18 at 18:00 Miscellaneous Information 1 ea NOTE XX ; Start 08/02/18 at 13:30 Glucose (Glutose) 15 gm Q15M PRN PO DECREASED GLUCOSE; Start 08/02/18 at 13:30 Glucose (Glutose) 22.5 gm Q15M PRN PO DECREASED GLUCOSE; Start 08/02/18 at 13:30 Dextrose (D50w Syringe) 25 ml Q15M PRN IV DECREASED GLUCOSE; Start 08/02/18 at 13:30 Dextrose (D50w Syringe) 50 ml Q15M PRN IV DECREASED GLUCOSE; Start 08/02/18 at 13:30 Glucagon (Glucagen) 1 mg Q15M PRN IM DECREASED GLUCOSE; Start 08/02/18 at 13:30 Glucose (Glutose) 15 gm Q15M PRN BUCCAL DECREASED GLUCOSE; Start 08/02/18 at 13:30 Cholecalciferol (Vitamin D) 1,000 unit DAILY PO Last administered on 08/07/18 08:08; Admin Dose 1,000 UNIT; Start 08/03/18 at 09:00 Folic Acid (Folic Acid) 1 mg DAILY PO Last administered on 08/07/18at 08:08; Admin Dose 1 MG; Start 08/03/18 at 09:00 Levothyroxine Sodium (Synthroid) 50 mcg BEFORE BREAKFAST PO Last administered on 08/07/18at 05:57; Admin Dose 50 MCG; Start 08/03/18 at 07:00 Nortriptyline HCl (Aventyl) 10 mg TID PO Last administered on 08/07/18at 08:08; Admin Dose 10 MG; Start 08/02/18 at 21:00 Sevelamer Carbonate (Renvela) 0.8 gm AC MEALS PO Last administered on 08/07/18at 08:07; Admin Dose 0.8 GM; Start 08/02/18 at 17:30 Midodrine (Proamatine) 5 mg ON DIALYSIS DAYS PO Last administered on 08/07/18at 09:54; Admin Dose 5 MG; Start 08/02/18 at 18:00 Insulin Glargine (Lantus) 15 units DAILY@0800 SC Last administered on 08/07/18at 08:22; Admin Dose 15 UNITS; Start 08/03/18 at 12:00 Morphine Sulfate (morphine) 6 mg Q4H PRN PO SEVERE PAIN LEVEL 7-10; Start 08/06/18 at 23:30 Albumin Human 100 ml @ 100 mls/hr WITH DIALYSIS PRN IV SBP <90 DURING DIALYSIS; Start 08/07/18 at 10:00 NNEKA FRITZ MD Aug 07, 2018 10:45
[2018-08-07] MEDS: GABAPENTIN 100 MG CAP PO SCH (12:38)
--- NOTE | 2018-08-07 15:48 | PN ---
Date/Time of Note Date/Time of Note DATE: 08/07/18 TIME: 15:45 Assessment/Plan VTE Prophylaxis Risk score (from Ns)>0 risk: 5 SCD applied (from Nsg): Yes Pharmacological prophylaxis: other (scds) Lines/Catheters IV Catheter Type (from Nrs): Mid Line Assessment/Plan Hospital Course Assessment: Bloody diarrhea Colonoscopy 08/06/18 1. Ascending colon mass greater than 4 cm Bx results: Ascending colon mass: Adenocarcinoma, moderately-differentiated, with surface ulceration. Biopsies taken, too large to resect Appears malignant. Tattoo placed Poor prep, unable to clear small lesions 2. 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 Biopsies taken Tattoo place along rectad side of the lesion into the descending colon. EGD 08/06/18 Gastritis- bx- neg for h.pylori or ca Duodenitis bx- neg for parasites or malignancy Splenic flexure mass on CT Possible fistula communicating to small intestine Last colonoscopy 5 years ago -normal exam History of diverticulitis 10 days ago -treated with antibiotics at [facility]??? Splenic infarct Diabetes mellitus Chronic kidney disease -on dialysis Hypertension Ejection fraction 35% Plan: Preliminary results reviewed Continue liquid diet - will advance to Diabetic full liquids Recommend Oncology consult F/u with surgical recommendations Possible surgery later this week Patient seen in collaboration with /Nancy Subjective: Course reviewed with nursing staff Patient interviewed and examined All labs, imaging and other results reviewed No over night events, reviewed colonoscopy results with patient and daughter who already spoke to Dr. Tadeo yesterday. No over night events No c/o n/v or abdominal pain. PHYSICAL EXAMINATION: GENERAL: Well developed, well nourished, alert & oriented x 3, in no acute distress SKIN: No lesions, no stigmata chronic liver disease, no evidence of bleeding diathesis CARDIOVASCULAR: Heart: Regular rate and rhythm RESPIRATORY: Lungs clear to auscultation and percussion, no wheezing, no rubs GASTROINTESTINAL AND LIVER: Abdomen: Soft, non tenderness, non-distended, no hernias, no masses, no organomegaly, no ascites, no guarding, no rebound tenderness, normoactive bowel sounds. Rectal: Deferred. GENITOURINARY: Male genitalia within normal limits. EXTREMITIES: No cyanosis, clubbing or edema. Result Diagram: 08/07/18 0537 08/07/18 0537 Results 24hrs Laboratory Tests Test 08/06/18 18:09 08/06/18 20:56 08/07/18 05:37 08/07/18 08:06 Bedside Glucose 71 116 136 White Blood Count 9.2 # Red Blood Count 3.39 L Hemoglobin 10.4 L Hematocrit 34.7 L Mean Corpuscular 102.4 H Volume Mean Corpuscular 30.7 Hemoglobin Mean Corpuscular 30.0 L Hemoglobin Concent Red Cell 17.1 H Distribution Width Platelet Count 233 Mean Platelet Volume 11.0 H Immature 0.500 H Granulocytes % Neutrophils % 75.0 Lymphocytes % 10.6 L Monocytes % 8.7 Eosinophils % 4.2 Basophils % 1.0 Nucleated Red Blood 0.0 Cells % Immature 0.050 H Granulocytes # Neutrophils # 6.9 Lymphocytes # 1.0 Monocytes # 0.8 Eosinophils # 0.4 Basophils # 0.1 Nucleated Red Blood 0.0 Cells # Sodium Level 136 Potassium Level 5.6 H Chloride Level 97 Carbon Dioxide Level 26 Anion Gap 13 Blood Urea Nitrogen 29 H Creatinine 6.73 H Est Glomerular Filtrat Rate mL/min Glucose Level 135 # Calcium Level 8.3 L Phosphorus Level 7.0 H Magnesium Level 1.9 Test 08/07/18 11:21 Bedside Glucose 165 Exam/Review of Systems Exam Vitals Vital Signs Date Temp Pulse Resp B/P (MAP) Pulse Ox O2 O2 Flow FiO2 Time Delivery Rate 08/07/18 97.8 93 19 120/56 95 15:36 (77) 08/07/18 Room Air 10:55 08/06/18 3.0 17:57 Intake and Output 08/06/18 08/06/18 08/07/18 1515:00 23:00 07:00 IntakeIntake Total 150 ml 300 ml BalanceBalance 150 ml 300 ml Results Results 24hrs Laboratory Tests Test 08/06/18 18:09 08/06/18 20:56 08/07/18 05:37 08/07/18 08:06 Bedside Glucose 71 116 136 White Blood Count 9.2 # Red Blood Count 3.39 L Hemoglobin 10.4 L Hematocrit 34.7 L Mean Corpuscular 102.4 H Volume Mean Corpuscular 30.7 Hemoglobin Mean Corpuscular 30.0 L Hemoglobin Concent Red Cell 17.1 H Distribution Width Platelet Count 233 Mean Platelet Volume 11.0 H Immature 0.500 H Granulocytes % Neutrophils % 75.0 Lymphocytes % 10.6 L Monocytes % 8.7 Eosinophils % 4.2 Basophils % 1.0 Nucleated Red Blood 0.0 Cells % Immature 0.050 H Granulocytes # Neutrophils # 6.9 Lymphocytes # 1.0 Monocytes # 0.8 Eosinophils # 0.4 Basophils # 0.1 Nucleated Red Blood 0.0 Cells # Sodium Level 136 Potassium Level 5.6 H Chloride Level 97 Carbon Dioxide Level 26 Anion Gap 13 Blood Urea Nitrogen 29 H Creatinine 6.73 H Est Glomerular Filtrat Rate mL/min Glucose Level 135 # Calcium Level 8.3 L Phosphorus Level 7.0 H Magnesium Level 1.9 Test 08/07/18 11:21 Bedside Glucose 165 Medications Medication Current Medications IV Flush (NS 3 ml) 3 ml PER PROTOCOL IV ; Start 08/02/18 at 13:00 Ondansetron HCl (Zofran Inj) 4 mg Q6H PRN IV NAUSEA/VOMITING; Start 08/02/18 at 13:00 Acetaminophen (Tylenol Tab) 650 mg Q6H PRN PO .PAIN 1-3 OR TEMP Last administered on 08/06/18at 12:57; Admin Dose 650 MG; Start 08/02/18 at 13:00 Acetaminophen/ Hydrocodone Bitart ([place] (5/325)) 1 tab Q6H PRN PO .MOD PAIN 4- 6; Start 08/02/18 at 13:00 Docusate Sodium (Colace) 100 mg Q12H PRN PO .CONSTIPATION; Start 08/02/18 at 13:00 Magnesium Hydroxide (Milk Of Mag) 30 ml DAILY PRN PO .CONSTIPATION; Start 08/02 at 13:00 Zolpidem Tartrate (Ambien) 5 mg QHS PRN PO .INSOMNIA; Start 08/02/18 at 13:00 Famotidine (Pepcid) 20 mg DAILY PO Last administered on 08/07/18at 08:08; Admin Dose 20 MG; Start 08/02/18 at 21:00 Diagnostic Test (Pha) (Accu-Chek) 1 ea 02 XX ; Start 08/03/18 at 02:00 Insulin Aspart (Novolog Insulin Pen) NOVOLOG *MILD* ALGORITHM WITH MEALS BEDTIME SC Last administered on 08/07/18 11:25; Admin Dose 1 UNIT; Start 08/02/18 at 18:00 Miscellaneous Information 1 ea NOTE XX ; Start 08/02/18 at 13:30 Glucose (Glutose) 15 gm Q15M PRN PO DECREASED GLUCOSE; Start 08/02/18 at 13:30 Glucose (Glutose) 22.5 gm Q15M PRN PO DECREASED GLUCOSE; Start 08/02/18 at 13:30 Dextrose (D50w Syringe) 25 ml Q15M PRN IV DECREASED GLUCOSE; Start 08/02/18 at 13:30 Dextrose (D50w Syringe) 50 ml Q15M PRN IV DECREASED GLUCOSE; Start 08/02/18 at 13:30 Glucagon (Glucagen) 1 mg Q15M PRN IM DECREASED GLUCOSE; Start 08/02/18 at 13:30 Glucose (Glutose) 15 gm Q15M PRN BUCCAL DECREASED GLUCOSE; Start 08/02/18 at 13:30 Cholecalciferol (Vitamin D) 1,000 unit DAILY PO Last administered on 08/07/18 08:08; Admin Dose 1,000 UNIT; Start 08/03/18 at 09:00 Folic Acid (Folic Acid) 1 mg DAILY PO Last administered on 08/07/18 08:08; Admin Dose 1 MG; Start 08/03/18 at 09:00 Levothyroxine Sodium (Synthroid) 50 mcg BEFORE BREAKFAST PO Last administered on 08/07/18 05:57; Admin Dose 50 MCG; Start 08/03/18 at 07:00 Nortriptyline HCl (Aventyl) 10 mg TID PO Last administered on 08/07/18 12:38; Admin Dose 10 MG; Start 08/02/18 at 21:00 Sevelamer Carbonate (Renvela) 0.8 gm AC MEALS PO Last administered on 08:07; Admin Dose 0.8 GM; Start 08/02/18 at 17:30 Midodrine (Proamatine) 5 mg ON DIALYSIS DAYS PO Last administered on 08/07/18 09:54; Admin Dose 5 MG; Start 08/02/18 at 18:00 Insulin Glargine (Lantus) 15 units DAILY@0800 SC Last administered on 2/20/19at 08:22; Admin Dose 15 UNITS; Start 08/03/18 at 12:00 Morphine Sulfate (morphine) 6 mg Q4H PRN PO SEVERE PAIN LEVEL 7-10; Start 08/06 at 23:30 Albumin Human 100 ml @ 100 mls/hr WITH DIALYSIS PRN IV SBP <90 DURING DIALYSIS; Start 08/07/18 at 10:00 Gabapentin (Neurontin) 100 mg DAILY PO Last administered on 08/07/18at 12:38; Admin Dose 100 MG; Start 08/07/18 at 11:30 ALANA CASTANEDA Aug 07, 2018 15:48
--- NOTE | 2018-08-07 16:50 | PN ---
Date/Time of Note Date/Time of Note DATE: 08/07/18 TIME: 16:45 Assessment/Plan VTE Prophylaxis Risk score (from Nsg)>0 risk: 5 SCD applied (from Nsg): Yes Pharmacological prophylaxis: heparin Lines/Catheters IV Catheter Type (from Nrsg): Mid Line Assessment/Plan Assessment/Plan 1. Colonic mass at the splenic flexure suspicious for neoplasm - GI on board and appreciate recommendations. EGD/Colonoscopy performed with findings of ascending and splenic flexure mass - Surgery on board and appreciate recommendations. Will most likely need hemicolectomy this week 2. End-stage renal disease on HD - Nephrology on board for HD management -Nephrology consultation appreciated 3. Diabetes - A1c noted - Continue Lantus and ISS 4. Esophagitis - Continue PPI 5. Hypothyroidism - Continue home Synthroid 6. Persistent cough - will try Gabapentin for relief 7. Disposition - Continue current treatment, pending Surgery recommendations Result Diagram: 08/07/18 0537 08/07/18 0537 Results 24hrs Laboratory Tests Test 08/06/18 18:09 08/06/18 20:56 08/07/18 05:37 08/07/18 08:06 Bedside Glucose 71 116 136 White Blood Count 9.2 # Red Blood Count 3.39 L Hemoglobin 10.4 L Hematocrit 34.7 L Mean Corpuscular 102.4 H Volume Mean Corpuscular 30.7 Hemoglobin Mean Corpuscular 30.0 L Hemoglobin Concent Red Cell 17.1 H Distribution Width Platelet Count 233 Mean Platelet Volume 11.0 H Immature 0.500 H Granulocytes % Neutrophils % 75.0 Lymphocytes % 10.6 L Monocytes % 8.7 Eosinophils % 4.2 Basophils % 1.0 Nucleated Red Blood 0.0 Cells % Immature 0.050 H Granulocytes # Neutrophils # 6.9 Lymphocytes # 1.0 Monocytes # 0.8 Eosinophils # 0.4 Basophils # 0.1 Nucleated Red Blood 0.0 Cells # Sodium Level 136 Potassium Level 5.6 H Chloride Level 97 Carbon Dioxide Level 26 Anion Gap 13 Blood Urea Nitrogen 29 H Creatinine 6.73 H Est Glomerular Filtrat Rate mL/min Glucose Level 135 # Calcium Level 8.3 L Phosphorus Level 7.0 H Magnesium Level 1.9 Test 08/07/18 11:21 Bedside Glucose 165 Subjective 24 Hr Interval Summary Free Text/Dictation Patient states hes doing well but has been experiencing a chronic dry cough. No acute overnight events. Exam/Review of Systems Exam Vitals Vital Signs Date Temp Pulse Resp B/P (MAP) Pulse Ox O2 O2 Flow FiO2 Time Delivery Rate 08/07/18 94 16:06 08/07/18 97.8 19 120/56 95 15:36 (77) 08/07/18 Room Air 10:55 08/06/18 3.0 17:57 Intake and Output 08/06/18 08/06/18 08/07/18 1515:00 23:00 07:00 IntakeIntake Total 150 ml 300 ml BalanceBalance 150 ml 300 ml Exam General: Patient is a pleasant male, no acute distress Neck: Supple Chest: Nontender Lungs: Clear to auscultation bilaterally no crackles rales or wheezing Heart: Normal S1-S2, Regular rate and rhythm. no murmurs Abdomen: Soft , nontender, nondistended , bowel sounds are present. No guarding no rebound tenderness , No masses or organomegaly. No costovertebral temporal angle mass Extremities: Normal to inspection, no edema no cyanosis Results Results 24hrs Laboratory Tests Test 08/06/18 18:09 08/06/18 20:56 08/07/18 05:37 08/07/18 08:06 Bedside Glucose 71 116 136 White Blood Count 9.2 # Red Blood Count 3.39 L Hemoglobin 10.4 L Hematocrit 34.7 L Mean Corpuscular 102.4 H Volume Mean Corpuscular 30.7 Hemoglobin Mean Corpuscular 30.0 L Hemoglobin Concent Red Cell 17.1 H Distribution Width Platelet Count 233 Mean Platelet Volume 11.0 H Immature 0.500 H Granulocytes % Neutrophils % 75.0 Lymphocytes % 10.6 L Monocytes % 8.7 Eosinophils % 4.2 Basophils % 1.0 Nucleated Red Blood 0.0 Cells % Immature 0.050 H Granulocytes # Neutrophils # 6.9 Lymphocytes # 1.0 Monocytes # 0.8 Eosinophils # 0.4 Basophils # 0.1 Nucleated Red Blood 0.0 Cells # Sodium Level 136 Potassium Level 5.6 H Chloride Level 97 Carbon Dioxide Level 26 Anion Gap 13 Blood Urea Nitrogen 29 H Creatinine 6.73 H Est Glomerular Filtrat Rate mL/min Glucose Level 135 # Calcium Level 8.3 L Phosphorus Level 7.0 H Magnesium Level 1.9 Test 08/07/18 11:21 Bedside Glucose 165 Medications Medication Current Medications IV Flush (NS 3 ml) 3 ml PER PROTOCOL IV ; Start 08/02/18 at 13:00 Ondansetron HCl (Zofran Inj) 4 mg Q6H PRN IV NAUSEA/VOMITING; Start 08/02/18 at 13:00 Acetaminophen (Tylenol Tab) 650 mg Q6H PRN PO .PAIN 1-3 OR TEMP Last administered on 08/06/18at 12:57; Admin Dose 650 MG; Start 08/02/18 at 13:00 Acetaminophen/ Hydrocodone Bitart ([place] (5/325)) 1 tab Q6H PRN PO .MOD PAIN 4- 6; Start 08/02/18 at 13:00 Docusate Sodium (Colace) 100 mg Q12H PRN PO .CONSTIPATION; Start 08/02/18 at 13:00 Magnesium Hydroxide (Milk Of Mag) 30 ml DAILY PRN PO .CONSTIPATION; Start 08/02/18 at 13:00 Zolpidem Tartrate (Ambien) 5 mg QHS PRN PO .INSOMNIA; Start 08/02/18 at 13:00 Famotidine (Pepcid) 20 mg DAILY PO Last administered on 08/07/18at 08:08; Admin Dose 20 MG; Start 08/02/18 at 21:00 Diagnostic Test (Pha) (Accu-Chek) 1 ea 02 XX ; Start 08/03/18 at 02:00 Insulin Aspart (Novolog Insulin Pen) NOVOLOG *MILD* ALGORITHM WITH MEALS BEDTIME SC Last administered on 08/07/18at 11:25; Admin Dose 1 UNIT; Start 08/02/18 at 18:00 Miscellaneous Information 1 ea NOTE XX ; Start 08/02/18 at 13:30 Glucose (Glutose) 15 gm Q15M PRN PO DECREASED GLUCOSE; Start 08/02/18 at 13:30 Glucose (Glutose) 22.5 gm Q15M PRN PO DECREASED GLUCOSE; Start 08/02/18 at 13:30 Dextrose (D50w Syringe) 25 ml Q15M PRN IV DECREASED GLUCOSE; Start 08/02/18 at 13:30 Dextrose (D50w Syringe) 50 ml Q15M PRN IV DECREASED GLUCOSE; Start 08/02/18 at 13:30 Glucagon (Glucagen) 1 mg Q15M PRN IM DECREASED GLUCOSE; Start 08/02/18 at 13:30 Glucose (Glutose) 15 gm Q15M PRN BUCCAL DECREASED GLUCOSE; Start 08/02/18 at 13:30 Cholecalciferol (Vitamin D) 1,000 unit DAILY PO Last administered on 08/07/18 08:08; Admin Dose 1,000 UNIT; Start 08/03/18 at 09:00 Folic Acid (Folic Acid) 1 mg DAILY PO Last administered on 08/07/18 08:08; Admin Dose 1 MG; Start 08/03/18 at 09:00 Levothyroxine Sodium (Synthroid) 50 mcg BEFORE BREAKFAST PO Last administered on 08/07/18 05:57; Admin Dose 50 MCG; Start 08/03/18 at 07:00 Nortriptyline HCl (Aventyl) 10 mg TID PO Last administered on 08/07/18 12:38; Admin Dose 10 MG; Start 08/02/18 at 21:00 Sevelamer Carbonate (Renvela) 0.8 gm AC MEALS PO Last administered on 08/07/18 08:07; Admin Dose 0.8 GM; Start 08/02/18 at 17:30 Midodrine (Proamatine) 5 mg ON DIALYSIS DAYS PO Last administered on 08/07/18 09:54; Admin Dose 5 MG; Start 08/02/18 at 18:00 Insulin Glargine (Lantus) 15 units DAILY@0800 SC Last administered on 08/07/18 08:22; Admin Dose 15 UNITS; Start 08/03/18 at 12:00 Morphine Sulfate (morphine) 6 mg Q4H PRN PO SEVERE PAIN LEVEL 7-10; Start 08/06/18 at 23:30 Albumin Human 100 ml @ 100 mls/hr WITH DIALYSIS PRN IV SBP <90 DURING DIALYSIS; Start 08/07/18 at 10:00 Gabapentin (Neurontin) 100 mg DAILY PO Last administered on 08/07/18 12:38; Admin Dose 100 MG; Start 08/07/18 at 11:30 JO HURST MD Aug 07, 2018 16:50
[2018-08-07] MEDS ORDERED: CEPASTAT LOZENGE MT PRN (23:00)
[2018-08-08] VITALS (13 sets, daily range): BP systolic 91–155; BP diastolic 51–99; PULSE 90–107; RESP 18–20
[2018-08-08] MEDS: ACCU-CHEK XX SCH (02:36)
[2018-08-08] MEDS: LEVOTHYROXINE 50 MCG TAB PO SCH (06:14)
[2018-08-08] MEDS: SEVELAMER CARBONATE 0.8 GM PKT PO SCH ×3 (07:28→18:10)
[2018-08-08] MEDS: INSULIN ASPART [NOVOLOG] 3 ML PEN SC SCH ×4 (07:33→20:40)
[2018-08-08] MEDS: INSULIN GLARGINE [LANTus] (100 UNITS/ML) SYG SC SCH (07:42)
[2018-08-08] MEDS: GABAPENTIN 100 MG CAP PO SCH (08:31)
[2018-08-08] MEDS: FOLIC ACID 1 MG TAB PO SCH (08:31)
[2018-08-08] MEDS: CHOLECALCIFEROL 1,000 UNIT TAB PO SCH (08:32)
[2018-08-08] MEDS: FAMOTIDINE 20 MG TAB PO SCH (08:32)
[2018-08-08] MEDS: NORTRIPTYLINE 10 MG CAP PO SCH ×3 (08:32→20:35)
--- NOTE | 2018-08-08 12:42 | PN ---
Date/Time of Note Date/Time of Note DATE: 08/08/18 TIME: 12:41 Assessment/Plan VTE Prophylaxis Risk score (from Nsg)>0 risk: 5 SCD applied (from Nsg): Yes Pharmacological prophylaxis: other (scds) Lines/Catheters IV Catheter Type (from Nrsg): Mid Line Assessment/Plan Hospital Course Assessment: Bloody diarrhea Colonoscopy 08/06/18 1. Ascending colon mass greater than 4 cm Bx results: Ascending colon mass: Adenocarcinoma, moderately-differentiated, with surface ulceration. Biopsies taken, too large to resect Appears malignant. Tattoo placed Poor prep, unable to clear small lesions 2. 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 Biopsies taken Tattoo place along rectad side of the lesion into the descending colon. 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 Splenic infarct Diabetes mellitus ESRD -on dialysis Hypertension Ejection fraction 35% Plan: Diabetic full liquids Recommend Oncology consult F/u with surgical recommendations Possible surgery in near future No further GI recommendations, GI will sign off but will be available as needed Patient seen in collaboration with /Nancy Subjective: Course reviewed with nursing staff Patient interviewed and examined All labs, imaging and other results reviewed No over night events. HGB stable No c/o n/v or abd pain, tolerating full liquid diet well Pt states he feels tired today. Encourage ambulation with assistance PHYSICAL EXAMINATION: GENERAL: Well developed, well nourished, alert & oriented x 3, in no acute distress SKIN: No lesions, no stigmata chronic liver disease, no evidence of bleeding diathesis CARDIOVASCULAR: Heart: Regular rate and rhythm RESPIRATORY: Lungs clear to auscultation and percussion, no wheezing, no rubs GASTROINTESTINAL AND LIVER: Abdomen: Soft, non tenderness, non-distended, no hernias, no masses, no organomegaly, no ascites, no guarding, no rebound tenderness, normoactive bowel sounds. Rectal: Deferred. GENITOURINARY: Male genitalia within normal limits. EXTREMITIES: No cyanosis, clubbing or edema. Result Diagram: 08/07/18 0537 08/07/18 0537 Results 24hrs Laboratory Tests Test 08/07/18 17:32 08/07/18 20:03 08/08/18 02:32 08/08/18 07:33 Bedside Glucose 139 192 126 139 Exam/Review of Systems Exam Vitals Vital Signs Date Temp Pulse Resp B/P (MAP) Pulse Ox O2 O2 Flow FiO2 Time Delivery Rate 08/08/18 92 12:16 08/08/18 98.0 20 153/99 97 Room Air 11:32 (117) 08/06/18 3.0 17:57 Intake and Output 08/07/18 08/07/18 08/08/18 1515:00 23:00 07:00 IntakeIntake Total 500 ml 250 ml OutputOutput Total 1600 ml BalanceBalance -1600 ml 500 ml 250 ml Results Results 24hrs Laboratory Tests Test 08/07/18 17:32 08/07/18 20:03 08/08/18 02:32 08/08/18 07:33 Bedside Glucose 139 192 126 139 Medications Medication Current Medications IV Flush (NS 3 ml) 3 ml PER PROTOCOL IV ; Start 08/02/18 at 13:00 Ondansetron HCl (Zofran Inj) 4 mg Q6H PRN IV NAUSEA/VOMITING; Start 08/02/18 at 13:00 Acetaminophen (Tylenol Tab) 650 mg Q6H PRN PO .PAIN 1-3 OR TEMP Last administered on 08/06/18at 12:57; Admin Dose 650 MG; Start 08/02/18 at 13:00 Acetaminophen/ Hydrocodone Bitart ([place] (5/325)) 1 tab Q6H PRN PO .MOD PAIN 4- 6; Start 08/02/18 at 13:00 Docusate Sodium (Colace) 100 mg Q12H PRN PO .CONSTIPATION; Start 08/02/18 at 13:00 Magnesium Hydroxide (Milk Of Mag) 30 ml DAILY PRN PO .CONSTIPATION; Start 08/02/18 at 13:00 Zolpidem Tartrate (Ambien) 5 mg QHS PRN PO .INSOMNIA; Start 08/02/18 at 13:00 Famotidine (Pepcid) 20 mg DAILY PO Last administered on 08/08/18 08:32; Admin Dose 20 MG; Start 08/02/18 at 21:00 Diagnostic Test (Pha) (Accu-Chek) 1 ea 02 XX Last administered on 08/08/18at 02:36; Admin Dose 1 EA; Start 08/03/18 at 02:00 Insulin Aspart (Novolog Insulin Pen) NOVOLOG *MILD* ALGORITHM WITH MEALS BEDTIME SC Last administered on 08/07/18 20:11; Admin Dose 1 UNIT; Start 08/02/18 at 18:00 Miscellaneous Information 1 ea NOTE XX ; Start 08/02/18 at 13:30 Glucose (Glutose) 15 gm Q15M PRN PO DECREASED GLUCOSE; Start 08/02/18 at 13:30 Glucose (Glutose) 22.5 gm Q15M PRN PO DECREASED GLUCOSE; Start 08/02/18 at 13:30 Dextrose (D50w Syringe) 25 ml Q15M PRN IV DECREASED GLUCOSE; Start 08/02/18 at 13:30 Dextrose (D50w Syringe) 50 ml Q15M PRN IV DECREASED GLUCOSE; Start 08/02/18 at 13:30 Glucagon (Glucagen) 1 mg Q15M PRN IM DECREASED GLUCOSE; Start 08/02/18 at 13:30 Glucose (Glutose) 15 gm Q15M PRN BUCCAL DECREASED GLUCOSE; Start 08/02/18 at 13:30 Cholecalciferol (Vitamin D) 1,000 unit DAILY PO Last administered on 08/08/18 08:32; Admin Dose 1,000 UNIT; Start 08/03/18 at 09:00 Folic Acid (Folic Acid) 1 mg DAILY PO Last administered on 08/08/18 08:31; Admin Dose 1 MG; Start 08/03/18 at 09:00 Levothyroxine Sodium (Synthroid) 50 mcg BEFORE BREAKFAST PO Last administered on 08/08/18 06:14; Admin Dose 50 MCG; Start 08/03/18 at 07:00 Nortriptyline HCl (Aventyl) 10 mg TID PO Last administered on 08/08/18 08:32; Admin Dose 10 MG; Start 08/02/18 at 21:00 Sevelamer Carbonate (Renvela) 0.8 gm AC MEALS PO Last administered on 08/08/18 07:28; Admin Dose 0.8 GM; Start 08/02/18 at 17:30 Midodrine (Proamatine) 5 mg ON DIALYSIS DAYS PO Last administered on 08/07/18 09:54; Admin Dose 5 MG; Start 08/02/18 at 18:00 Insulin Glargine (Lantus) 15 units DAILY@0800 SC Last administered on 08/08/18 07:42; Admin Dose 15 UNITS; Start 08/03/18 at 12:00 Morphine Sulfate (morphine) 6 mg Q4H PRN PO SEVERE PAIN LEVEL 7-10; Start 08/06/18 at 23:30 Albumin Human 100 ml @ 100 mls/hr WITH DIALYSIS PRN IV SBP <90 DURING DIALYSIS; Start 08/07/18 at 10:00 Gabapentin (Neurontin) 100 mg DAILY PO Last administered on 08/08/18at 08:31; Admin Dose 100 MG; Start 08/07/18 at 11:30 Phenol (Cepastat Lozenge) 1 lozenge Q1H PRN MT COUGH Last administered on 08/08/18at 02:34; Admin Dose 1 LOZENGE; Start 08/07/18 at 23:00 ALANA CASTANEDA Aug 08, 2018 12:42
--- NOTE | 2018-08-08 14:41 | RADRPT ---
Echocardiogram Report Patient Name: ARTHUR LIMAPatient ID: [id number] : 1940 (78y 2m)Study Date: 08/08/2018 11:07:36 AM Gender: MAccession #: [id number] Tech: Shasta Wilcox RDCS Location: 506 Ref.Physician: JO HURST Height(Cm): BSA: Weight(Kg): Quality: Technically Difficult StudyAccount #: Procedures: Echocardiographic Report: Transthoracic echocardiogram with complete 2D, M-Mode, and doppler examination. Indications: Evaluate Left Ventricular function. Measurements: 2D/M Mode Doppler Measurement Value Normal Range Measurement Value Normal Range LVIDd 2D 5.0 [ 4.2 - 5.8 ] cm TODD VTI 1.3 [ 2.0 - 4.0 ] cm2 LVIDs 2D 3.9 [ 2.5 - 4.0 ] cm AV Mean Deyvi 1.5 [ 70.0 - 90.0 ] cm/sec LVPWd 2D 1.3 [ 0.6 - 1.0 ] cm AV Mean PG 11.0 [ 2.0 - 4.0 ] mmHg IVSd 2D 1.1 [ 0.6 - 1.0 ] cm AV Peak Deyvi 2.3 [ 100.0 - 170.0 ] cm/sec AoR Diam 2D 2.9 [ 2.6 - 3.4 ] cm AV Peak PG 22.0 [ 2.0 - 9.0 ] mmHg EDV 2D 119.0 [ 62.0 - 150.0 ] ml AV VTI 43.5 cm ESV 2D 65.9 [ 21.0 - 61.0 ] ml LVOT Mean Deyvi 0.5 [ 60.0 - 80.0 ] cm/sec EF 2D 44.6 [ 52.0 - 72.0 ] percent LVOT Mean PG 1.0 [ 1.0 - 3.0 ] mmHg LA Dimen 2D 4.1 [ 3.0 - 4.0 ] cm LVOT Peak Deyvi 0.7 [ 70.0 - 110.0 ] cm/sec LVOT Diam 2.2 [ 2.3 - 2.9 ] cm LVOT Peak PG 2.0 [ 2.0 - 6.0 ] mmHg LVOT VTI 14.5 [ 20.0 - 30.0 ] cm MV Peak Deyvi 2.0 [ 60.0 - 130.0 ] cm/sec MV Peak PG 16.0 [ 1.0 - 10.0 ] mmHg MV Mean Deyvi 0.9 cm/sec MV Mean PG 4.0 mmHg MV VTI 38.5 cm MVA VTI 1.4 cm TR Peak Deyvi 3.7 [ 100.0 - 280.0 ] cm/sec TR Peak PG 56.0 mmHg RVSP 64.0 [ 10.0 - 36.0 ] mmHg RA Pressure 8.0 mmHg Findings: Left Ventricle: Normal left ventricular cavity size. Mild concentric left ventricular hypertrophy. Severe global left ventricular systolic dysfunction. Ejection fraction is visually estimated at 30 %. Tissue Doppler/Mitral Doppler indices are consistent with restrictive physiology with markedly elevated left atrial pressure (Stage III-IV diastolic dysfunction). Right Ventricle: Normal right ventricular size. Normal right ventricular systolic function. Pacemaker right heart. Left Atrium: There is moderate enlargement of left atrium. Right Atrium: There is mild enlargement of right atrium. Mitral Valve: Mitral valve leaflets appear mildly thickened. Moderate mitral annular calcification. Mild mitral valve regurgitation. Mild mitral stenosis. Aortic Valve: Mild to moderate aortic stenosis. Aortic valve Max velocity 2.47 m/sec. Max PG 24.40 mmHg. Mean PG 11.00 mmHg. Aortic valve area 1.30 cm2. Aortic cusps appear moderately calcified. Trace aortic valve regurgitation. Tricuspid Valve: Normal appearance of the tricuspid valve. Estimated peak PA systolic pressure 64 mmHg. There is mild tricuspid regurgitation. Pulmonic Valve: Pulmonic valve not well visualized. Pericardium: Normal pericardium with no significant pericardial effusion. Aorta: Normal aortic root. IVC: Normal size and no respiratory collapse consistent with elevated right atrial pressure. Conclusions: Normal left ventricular cavity size. Mild concentric left ventricular hypertrophy. Severe global left ventricular systolic dysfunction. Ejection fraction is visually estimated at 30 %. Tissue Doppler/Mitral Doppler indices are consistent with restrictive physiology with markedly elevated left atrial pressure (Stage III-IV diastolic dysfunction). Mild to moderate aortic stenosis. Visually and by valve area it is moderate. By gradients only mild but may be due to low EF. Aortic valve Max velocity 2.47 m/sec. Max PG 24.40 mmHg. Mean PG 11.00 mmHg. Aortic valve area 1.30 cm2. Aortic cusps appear moderately calcified. Trace aortic valve regurgitation. Pacemaker right heart. Estimated peak PA systolic pressure 64 mmHg based on RA pressure of 8 mmHg. Electronically Signed By: Lorenzo Murray 2018-08-08 14:40:56 PST
--- NOTE | 2018-08-08 15:17 | CONS ---
Assessment/Plan Assessment/Plan Assessment/Plan (Daily) 1 End-stage renal disease, on hemodialysis,mwf 2. 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 Hypotension.BETTER 4. History of congestive heart failure. 5. Hypercholesterolemia. 6. Total hip replacement. 7. Leukocytosis. 8. Hypoglycemia. 9. MAcrocytic hypochromic Anemia mixed etiology, recent blood loss and 2/2 kidney disease 10. Hypothyroidism 11 HCx CAD Plan - HD tmw -Hemicolectomy per surgery will have to coordinate with dialysis days -Midodrine on dialysis days for hypotension - Pending cardiac clearence -Renally Dose all meds -Avoid nephrotoxic agents. Consultation Date/Type/Reason Admit Date/Time Aug 02, 2018 at 10:57 Initial Consult Date 08/03/18 Date/Time of Note DATE: 08/08/18 TIME: 15:15 24 HR Interval Summary Free Text/Dictation Awaiting for clearance for surgery. Exam/Review of Systems Exam Vitals Vital Signs Date Temp Pulse Resp B/P (MAP) Pulse Ox O2 O2 Flow FiO2 Time Delivery Rate 08/08/18 92 12:16 08/08/18 98.0 20 153/99 97 Room Air 11:32 (117) 08/06/18 3.0 17:57 Intake and Output 08/07/18 08/07/18 08/08/18 1515:00 23:00 07:00 IntakeIntake Total 500 ml 250 ml OutputOutput Total 1600 ml BalanceBalance -1600 ml 500 ml 250 ml Exam Exam Respiratory: diminished breath sounds R>L Cardiovascular: regular rate and rhythm Gastrointestinal: soft, bowel sounds (+) Extremities: No edema hero graft Results Result Diagram: 08/07/18 0537 08/07/18 0537 Results 24hrs Laboratory Tests Test 08/07/18 17:32 08/07/18 20:03 08/08/18 02:32 08/08/18 07:33 Bedside Glucose 139 192 126 139 Test 08/08/18 12:37 Bedside Glucose 182 Medications Medication Current Medications IV Flush (NS 3 ml) 3 ml PER PROTOCOL IV ; Start 08/02/18 at 13:00 Ondansetron HCl (Zofran Inj) 4 mg Q6H PRN IV NAUSEA/VOMITING; Start 08/02/18 at 13:00 Acetaminophen (Tylenol Tab) 650 mg Q6H PRN PO .PAIN 1-3 OR TEMP Last ad ministered on 08/06/18at 12:57; Admin Dose 650 MG; Start 08/02/18 at 13:00 Acetaminophen/ Hydrocodone Bitart ([place] (5/325)) 1 tab Q6H PRN PO .MOD PAIN 4- 6; Start 08/02/18 at 13:00 Docusate Sodium (Colace) 100 mg Q12H PRN PO .CONSTIPATION; Start 08/02/18 at 13:00 Magnesium Hydroxide (Milk Of Mag) 30 ml DAILY PRN PO .CONSTIPATION; Start 08/02/18 at 13:00 Zolpidem Tartrate (Ambien) 5 mg QHS PRN PO .INSOMNIA; Start 08/02/18 at 13:00 Famotidine (Pepcid) 20 mg DAILY PO Last administered on 08/08/18at 08:32; Admin Dose 20 MG; Start 08/02/18 at 21:00 Diagnostic Test (Pha) (Accu-Chek) 1 ea 02 XX Last administered on 08/08/18at 02:36; Admin Dose 1 EA; Start 08/03/18 at 02:00 Insulin Aspart (Novolog Insulin Pen) NOVOLOG *MILD* ALGORITHM WITH MEALS BEDTIME SC Last administered on 08/08/18at 12:47; Admin Dose 2 UNIT; Start 08/02/18 at 18:00 Miscellaneous Information 1 ea NOTE XX ; Start 08/02/18 at 13:30 Glucose (Glutose) 15 gm Q15M PRN PO DECREASED GLUCOSE; Start 08/02/18 at 13:30 Glucose (Glutose) 22.5 gm Q15M PRN PO DECREASED GLUCOSE; Start 08/02/18 at 13:30 Dextrose (D50w Syringe) 25 ml Q15M PRN IV DECREASED GLUCOSE; Start 08/02/18 at 13:30 Dextrose (D50w Syringe) 50 ml Q15M PRN IV DECREASED GLUCOSE; Start 08/02/18 at 13:30 Glucagon (Glucagen) 1 mg Q15M PRN IM DECREASED GLUCOSE; Start 08/02/18 at 13:30 Glucose (Glutose) 15 gm Q15M PRN BUCCAL DECREASED GLUCOSE; Start 08/02/18 at 13:30 Cholecalciferol (Vitamin D) 1,000 unit DAILY PO Last administered on 08/08/18 08:32; Admin Dose 1,000 UNIT; Start 08/03/18 at 09:00 Folic Acid (Folic Acid) 1 mg DAILY PO Last administered on 08/08/18 08:31; Admin Dose 1 MG; Start 08/03/18 at 09:00 Levothyroxine Sodium (Synthroid) 50 mcg BEFORE BREAKFAST PO Last administered on 08/08/18 06:14; Admin Dose 50 MCG; Start 08/03/18 at 07:00 Nortriptyline HCl (Aventyl) 10 mg TID PO Last administered on 08/08/18 13:04; Admin Dose 10 MG; Start 08/02/18 at 21:00 Sevelamer Carbonate (Renvela) 0.8 gm AC MEALS PO Last administered on 12:43; Admin Dose 0.8 GM; Start 08/02/18 at 17:30 Midodrine (Proamatine) 5 mg ON DIALYSIS DAYS PO Last administered on 08/07/18 09:54; Admin Dose 5 MG; Start 08/02/18 at 18:00 Insulin Glargine (Lantus) 15 units DAILY@0800 SC Last administered on 08/08/18 07:42; Admin Dose 15 UNITS; Start 08/03/18 at 12:00 Morphine Sulfate (morphine) 6 mg Q4H PRN PO SEVERE PAIN LEVEL 7-10; Start 08/06/18 at 23:30 Albumin Human 100 ml @ 100 mls/hr WITH DIALYSIS PRN IV SBP <90 DURING DIALYSIS; Start 08/07/18 at 10:00 Gabapentin (Neurontin) 100 mg DAILY PO Last administered on 08/08/18 08:31; Admin Dose 100 MG; Start 08/07/18 at 11:30 Phenol (Cepastat Lozenge) 1 lozenge Q1H PRN MT COUGH Last administered on 08/08/18 02:34; Admin Dose 1 LOZENGE; Start 08/07/18 at 23:00 NNEKA FRITZ MD Aug 08, 2018 15:17
--- NOTE | 2018-08-08 15:27 | CONS ---
Assessment/Plan Assessment/Plan Hospital Course (Demo Recall) Pre-operative evaluation: The pt is to undergo intermediate risk surgery. He is not very active at baseline so functional capacity is difficult to determine. However no chest pain or known CAD. He has mild CHF by exam which can be easily corrected with HD. He has what seems to be a new cardiomyopathy as presumably he would have received an ICD 05/04 if his EF was <35% but he had a PPM. He ce rtainly has risk factors for CAD but he may just have pacemaker related cardiomyopathy from chronic pacing. I will try to contact his outpt case coordinator for further information but currently he is at high risk for surgery, though certainly not prohibitive. Acute on ?chronic systolic CHF: mild by exam Cardiomyopathy: ischemic vs ?pacemaker induced PPM: [place] 05/04. For ?complete heart block as 100% v paced Pulm HTN: PAP 60s by echo Colon cancer: being evaluated for colectomy ESRD on HD -will contact outpt case coordinator, may consider stress testing depending on conve rsation -if surgery is planned, he will need the PPM reprogrammed or a magnet placed as he is pacer dependent -hold off ASA for now with bleeding/cancer -would like to initiate coreg on non dialysis days but if surgery is to be scheduled soon, would not want to initiate negative inotrope yet -HD per nephrology for volume management Consultation Date/Type/Reason Admit Date/Time Aug 02, 2018 at 10:57 Date of Consultation: Aug 08, 2018 Type of Consult Cardiology Reason for Consultation Pre-op evaluation Requesting Provider: JO HURST MD Date/Time of Note DATE: 08/08/18 TIME: 15:09 Hx of Present Illness 78 yo M with a h/o cardiomyopathy (unknown duration, 35% per report recently at [place]), PPM ([place] 04/2017 for unclear reason, possibly CHB as pt 100% paced now), ESRD on HD, DM, who presented with weakness/hematochezia and was found to have 2 large malignant colon masses on CT and then colonoscopy. He is to have colectomy and cardiology is consulted for evaluation. The pt is a poor historian and his daughter who is present and by phone are able to provide information. His outpt case coordinator is Dr. Samayoa. The pt had a PPM 05/04 for unclear reasons. No known cardiomyopathy at least until recent admission at [facility]. Unknown if he had recent echo at his case coordinator office. Per pt no prior cardiac cath but likely had stress testing of some kind. Currently with a chronic cough but no chest pain or SOB. No edema. BP has been low so the pt is on midodrine on HD days. per HPI Past Medical History per HPI Home Meds Active Scripts Hydrocodone/Acetaminophen ([place] 5-325 Tablet) 1 Each Tablet, 1 EACH PO Q8 PRN for PAIN, #21 TAB Prov:DULCE GALINDO J 03/29/17 Reported Medications Midodrine* (Midodrine*) 5 Mg Tablet, 5 MG PO DAILY, TAB THE DAYS OF DIALYSIS 08/02/18 Nortriptyline Hcl* (Nortriptyline Hcl*) 10 Mg Capsule, 10 MG PO TID, CAP 08/02/18 Aspirin* (Aspirin* Chew) 81 Mg Tab.chew, 81 MG PO DAILY, TAB.CHEW 08/02/18 Cholecalciferol* (Vitamin D3*) 1,000 Unit Tablet, 1000 UNIT PO DAILY, TAB 03/28/17 Cyanocobalamin* (Vitamin B12*) Unknown Strength Tab, 1 TAB PO Q MON,FRI, TAB 03/28/17 Sevelamer Carbonate* (Renvela*) 800 Mg Tablet, 0.8 GM PO WITH MEALS BID, TAB 03/28/17 Levothyroxine Sodium* (Synthroid*) 50 Mcg Tablet, 50 MCG PO BEFORE BREAKFAST, #30 TAB 08/21/16 Atorvastatin Calcium* (Atorvastatin Calcium*) 20 Mg Tablet, 20 MG PO QHS, #30 TAB 08/21/16 Folic Acid* (Folic Acid*) 1 Mg Tablet, 1 MG PO DAILY, TAB 08/21/16 Insulin Lispro (Humalog) 100 Unit/1 Ml Cartridge, 0 SQ TID SLIDING SCALES 08/21/16 Insulin Glargine* (Lantus*) 100 Unit/Ml Soln, 20 UNIT SC BID, #1 VIAL 08/21/16 Discontinued Reported Medications Amitriptyline Hcl* (Amitriptyline Hcl*) 75 Mg Tablet, 37.5 MG PO QHS, #30 TAB 08/21/16 Medications Current Medications IV Flush (NS 3 ml) 3 ml PER PROTOCOL IV ; Start 08/02/18 at 13:00 Ondansetron HCl (Zofran Inj) 4 mg Q6H PRN IV NAUSEA/VOMITING; Start 08/02/18 at 13:00 Acetaminophen (Tylenol Tab) 650 mg Q6H PRN PO .PAIN 1-3 OR TEMP Last adm inistered on 08/06/18at 12:57; Admin Dose 650 MG; Start 08/02/18 at 13:00 Acetaminophen/ Hydrocodone Bitart ([place] (5/325)) 1 tab Q6H PRN PO .MOD PAIN 4- 6; Start 08/02/18 at 13:00 Docusate Sodium (Colace) 100 mg Q12H PRN PO .CONSTIPATION; Start 08/02/18 at 13:00 Magnesium Hydroxide (Milk Of Mag) 30 ml DAILY PRN PO .CONSTIPATION; Start 08/02/18 at 13:00 Zolpidem Tartrate (Ambien) 5 mg QHS PRN PO .INSOMNIA; Start 08/02/18 at 13:00 Famotidine (Pepcid) 20 mg DAILY PO Last administered on 08/08/18at 08:32; Admin Dose 20 MG; Start 08/02/18 at 21:00 Diagnostic Test (Pha) (Accu-Chek) 1 ea 02 XX Last administered on 08/08/18at 02:36; Admin Dose 1 EA; Start 08/03/18 at 02:00 Insulin Aspart (Novolog Insulin Pen) NOVOLOG *MILD* ALGORITHM WITH MEALS BEDTIME SC Last administered on 08/08/18at 12:47; Admin Dose 2 UNIT; Start 08/02/18 at 18:00 Miscellaneous Information 1 ea NOTE XX ; Start 08/02/18 at 13:30 Glucose (Glutose) 15 gm Q15M PRN PO DECREASED GLUCOSE; Start 08/02/18 at 13:30 Glucose (Glutose) 22.5 gm Q15M PRN PO DECREASED GLUCOSE; Start 08/02/18 at 13:30 Dextrose (D50w Syringe) 25 ml Q15M PRN IV DECREASED GLUCOSE; Start 08/02/18 at 13:30 Dextrose (D50w Syringe) 50 ml Q15M PRN IV DECREASED GLUCOSE; Start 08/02/18 at 13:30 Glucagon (Glucagen) 1 mg Q15M PRN IM DECREASED GLUCOSE; Start 08/02/18 at 13:30 Glucose (Glutose) 15 gm Q15M PRN BUCCAL DECREASED GLUCOSE; Start 08/02/18 at 13:30 Cholecalciferol (Vitamin D) 1,000 unit DAILY PO Last administered on 08/08/18 08:32; Admin Dose 1,000 UNIT; Start 08/03/18 at 09:00 Folic Acid (Folic Acid) 1 mg DAILY PO Last administered on 08/08/18 08:31; Admin Dose 1 MG; Start 08/03/18 at 09:00 Levothyroxine Sodium (Synthroid) 50 mcg BEFORE BREAKFAST PO Last administered on 08/08/18 06:14; Admin Dose 50 MCG; Start 08/03/18 at 07:00 Nortriptyline HCl (Aventyl) 10 mg TID PO Last administered on 08/08/18 13:04; Admin Dose 10 MG; Start 08/02/18 at 21:00 Sevelamer Carbonate (Renvela) 0.8 gm AC MEALS PO Last administered on 07/20 12:43; Admin Dose 0.8 GM; Start 08/02/18 at 17:30 Midodrine (Proamatine) 5 mg ON DIALYSIS DAYS PO Last administered on 08/07/18 09:54; Admin Dose 5 MG; Start 08/02/18 at 18:00 Insulin Glargine (Lantus) 15 units DAILY@0800 SC Last administered on 08/08/18 07:42; Admin Dose 15 UNITS; Start 08/03/18 at 12:00 Morphine Sulfate (morphine) 6 mg Q4H PRN PO SEVERE PAIN LEVEL 7-10; Start 08/06/18 at 23:30 Albumin Human 100 ml @ 100 mls/hr WITH DIALYSIS PRN IV SBP <90 DURING DIALYSIS; Start 08/07/18 at 10:00 Gabapentin (Neurontin) 100 mg DAILY PO Last administered on 08/08/18 08:31; Admin Dose 100 MG; Start 08/07/18 at 11:30 Phenol (Cepastat Lozenge) 1 lozenge Q1H PRN MT COUGH Last administered on 08/08/18 02:34; Admin Dose 1 LOZENGE; Start 08/07/18 at 23:00 Allergies: Coded Allergies: hydromorphone (Verified Allergy, Unknown, UNKNOWN, 08/02/18) Past Surgical History Past Surgical Hx: other (Hip replacement) Social History Alcohol Use: none Smoking Status: Never smoker Drug Use: none Exam/Review of Systems Exam Vitals Vital Signs Date Temp Pulse Resp B/P (MAP) Pulse Ox O2 O2 Flow FiO2 Time Delivery Rate 08/08/18 92 12:16 08/08/18 98.0 20 153/99 97 Room Air 11:32 (117) 08/06/18 3.0 17:57 Intake and Output 08/07/18 08/07/18 08/08/18 1515:00 23:00 07:00 IntakeIntake Total 500 ml 250 ml OutputOutput Total 1600 ml BalanceBalance -1600 ml 500 ml 250 ml Constitutional: alert, oriented Psych: no complaints, nl mood/affect Head: normocephalic, atraumatic Neck: supple, jvd (8cm) Respiratory: crackles/rales (at bases ); No clear to auscultation Cardiovascular: regular rate and rhythm, systolic murmur (3/6 mid peaking ); No edema Gastrointestinal: soft, non-tender; No distended Neurological: nl mental status, nl speech Results Result Diagram: 08/07/1837 08/07/18 0537 Results 24hrs Laboratory Tests Test 08/07/18 17:32 08/07/18 20:03 08/08/18 02:32 08/08/18 07:33 Bedside Glucose 139 192 126 139 Test 08/08/18 12:37 Bedside Glucose 182 Medications Medication Current Medications IV Flush (NS 3 ml) 3 ml PER PROTOCOL IV ; Start 08/02/18 at 13:00 Ondansetron HCl (Zofran Inj) 4 mg Q6H PRN IV NAUSEA/VOMITING; Start 08/02/18 at 13:00 Acetaminophen (Tylenol Tab) 650 mg Q6H PRN PO .PAIN 1-3 OR TEMP Last administered on 08/06/18at 12:57; Admin Dose 650 MG; Start 08/02/18 at 13:00 Acetaminophen/ Hydrocodone Bitart ([place] (5/325)) 1 tab Q6H PRN PO .MOD PAIN 4- 6; Start 08/02/18 at 13:00 Docusate Sodium (Colace) 100 mg Q12H PRN PO .CONSTIPATION; Start 08/02/18 at 13:00 Magnesium Hydroxide (Milk Of Mag) 30 ml DAILY PRN PO .CONSTIPATION; Start 08/02/18 at 13:00 Zolpidem Tartrate (Ambien) 5 mg QHS PRN PO .INSOMNIA; Start 08/02/18 at 13:00 Famotidine (Pepcid) 20 mg DAILY PO Last administered on 08/08/18 08:32; Admin Dose 20 MG; Start 08/02/18 at 21:00 Diagnostic Test (Pha) (Accu-Chek) 1 ea 02 XX Last administered on 08/08/18at 02:36; Admin Dose 1 EA; Start 08/03/18 at 02:00 Insulin Aspart (Novolog Insulin Pen) NOVOLOG *MILD* ALGORITHM WITH MEALS BEDTIME SC Last administered on 08/08/18 12:47; Admin Dose 2 UNIT; Start 08/02/18 at 18:00 Miscellaneous Information 1 ea NOTE XX ; Start 08/02/18 at 13:30 Glucose (Glutose) 15 gm Q15M PRN PO DECREASED GLUCOSE; Start 08/02/18 at 13:30 Glucose (Glutose) 22.5 gm Q15M PRN PO DECREASED GLUCOSE; Start 08/02/18 at 13:30 Dextrose (D50w Syringe) 25 ml Q15M PRN IV DECREASED GLUCOSE; Start 08/02/18 at 13:30 Dextrose (D50w Syringe) 50 ml Q15M PRN IV DECREASED GLUCOSE; Start 08/02/18 at 13:30 Glucagon (Glucagen) 1 mg Q15M PRN IM DECREASED GLUCOSE; Start 08/02/18 at 13:30 Glucose (Glutose) 15 gm Q15M PRN BUCCAL DECREASED GLUCOSE; Start 08/02/18 at 13:30 Cholecalciferol (Vitamin D) 1,000 unit DAILY PO Last administered on 08/08/18at 08:32; Admin Dose 1,000 UNIT; Start 08/03/18 at 09:00 Folic Acid (Folic Acid) 1 mg DAILY PO Last administered on 08/08/18 08:31; Admin Dose 1 MG; Start 08/03/18 at 09:00 Levothyroxine Sodium (Synthroid) 50 mcg BEFORE BREAKFAST PO Last administered on 08/08/18 06:14; Admin Dose 50 MCG; Start 08/03/18 at 07:00 Nortriptyline HCl (Aventyl) 10 mg TID PO Last administered on 08/08/18 13:04; Admin Dose 10 MG; Start 08/02/18 at 21:00 Sevelamer Carbonate (Renvela) 0.8 gm AC MEALS PO Last administered on 08/08/18 12:43; Admin Dose 0.8 GM; Start 08/02/18 at 17:30 Midodrine (Proamatine) 5 mg ON DIALYSIS DAYS PO Last administered on 08/07/18 09:54; Admin Dose 5 MG; Start 08/02/18 at 18:00 Insulin Glargine (Lantus) 15 units DAILY@0800 SC Last administered on 08/08/18 07:42; Admin Dose 15 UNITS; Start 08/03/18 at 12:00 Morphine Sulfate (morphine) 6 mg Q4H PRN PO SEVERE PAIN LEVEL 7-10; Start 08/06/18 at 23:30 Albumin Human 100 ml @ 100 mls/hr WITH DIALYSIS PRN IV SBP <90 DURING CHUCK LYSIS; Start 08/07/18 at 10:00 Gabapentin (Neurontin) 100 mg DAILY PO Last administered on 08/08/18at 08:31; Admin Dose 100 MG; Start 08/07/18 at 11:30 Phenol (Cepastat Lozenge) 1 lozenge Q1H PRN MT COUGH Last administered on 08/08/18 02:34; Admin Dose 1 LOZENGE; Start 08/07/18 at 23:00 LUCRETIA QUEEN Aug 08, 2018 15:24
--- NOTE | 2018-08-08 16:07 | PN ---
Date/Time of Note Date/Time of Note DATE: 08/08/18 TIME: 16:01 Assessment/Plan VTE Prophylaxis Risk score (from Ns)>0 risk: 5 SCD applied (from Ns): Yes Pharmacological prophylaxis: heparin Lines/Catheters IV Catheter Type (from Nrsg): Mid Line Assessment/Plan Assessment/Plan 1. Colonic mass at the splenic flexure and ascending colon - GI on board and appreciate recommendations. 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 Requested cardiology clearance for risk stratification and Cardiology consultation placed. Will determine if comfortable performing procedure here or if patient will need higher level of care - Cardiology consultation appreciated 2. End-stage renal disease on HD - Nephrology on board for HD management and appreciate recommendations 3. Diabetes - A1c noted - Continue Lantus and ISS 4. Esophagitis - Continue PPI 5. Hypothyroidism - Continue home Synthroid 6. Persistent cough - improvement with Gabapentin 7. Nonischemic CM - pacer in place - nonchronic 8. Mild acute on chronic systolic HF - fluid removal during HD 9. Disposition - Oncology and Cardiology consultations placed - Will discussed with Surgery plan of care based on input from other specialists. Result Diagram: 08/07/18 0537 08/07/18 0537 Results 24hrs Laboratory Tests Test 08/07/18 17:32 08/07/18 20:03 08/08/18 02:32 08/08/18 07:33 Bedside Glucose 139 192 126 139 Test 08/08/18 12:37 Bedside Glucose 182 Subjective 24 Hr Interval Summary Free Text/Dictation Patient denies any acute issues and eager to find out when surgery will take place. Does complain of weakness since has not eaten much and requesting to work with physical therapy. Exam/Review of Systems Exam Vitals Vital Signs Date Temp Pulse Resp B/P (MAP) Pulse Ox O2 O2 Flow FiO2 Time Delivery Rate 08/08/18 98.0 97 20 126/53 96 Room Air 15:10 (77) 08/06/18 3.0 17:57 Intake and Output 08/07/18 08/07/18 08/08/18 1414:59 22:59 06:59 IntakeIntake Total 500 ml 250 ml OutputOutput Total 1600 ml BalanceBalance -1600 ml 500 ml 250 ml Exam General: Patient is a pleasant male, no acute distress Neck: Supple Chest: Nontender Lungs: Clear to auscultation bilaterally no crackles rales or wheezing Heart: Normal S1-S2, Regular rate and rhythm. no murmurs Abdomen: Soft , nontender, nondistended , bowel sounds are present. No guarding no rebound tenderness , No masses or organomegaly. No costovertebral temporal angle mass Extremities: Normal to inspection, no edema no cyanosis Results Results 24hrs Laboratory Tests Test 08/07/18 17:32 08/07/18 20:03 08/08/18 02:32 08/08/18 07:33 Bedside Glucose 139 192 126 139 Test 08/08/18 12:37 Bedside Glucose 182 Medications Medication Current Medications IV Flush (NS 3 ml) 3 ml PER PROTOCOL IV ; Start 08/02/18 at 13:00 Ondansetron HCl (Zofran Inj) 4 mg Q6H PRN IV NAUSEA/VOMITING; Start 08/02/18 at 13:00 Acetaminophen (Tylenol Tab) 650 mg Q6H PRN PO .PAIN 1-3 OR TEMP Last administered on 08/06/18at 12:57; Admin Dose 650 MG; Start 08/02/18 at 13:00 Acetaminophen/ Hydrocodone Bitart ([place] (5/325)) 1 tab Q6H PRN PO .MOD PAIN 4- 6; Start 08/02/18 at 13:00 Docusate Sodium (Colace) 100 mg Q12H PRN PO .CONSTIPATION; Start 08/02/18 at 13:00 Magnesium Hydroxide (Milk Of Mag) 30 ml DAILY PRN PO .CONSTIPATION; Start 08/02/18 at 13:00 Zolpidem Tartrate (Ambien) 5 mg QHS PRN PO .INSOMNIA; Start 08/02/18 at 13:00 Famotidine (Pepcid) 20 mg DAILY PO Last administered on 08/08/18at 08:32; Admin Dose 20 MG; Start 08/02/18 at 21:00 Diagnostic Test (Pha) (Accu-Chek) 1 ea 02 XX Last administered on 08/08/18at 02:36; Admin Dose 1 EA; Start 08/03/18 at 02:00 Insulin Aspart (Novolog Insulin Pen) NOVOLOG *MILD* ALGORITHM WITH MEALS BEDTIME SC Last administered on 08/08/18 12:47; Admin Dose 2 UNIT; Start at 18:00 Miscellaneous Information 1 ea NOTE XX ; Start 08/02/18 at 13:30 Glucose (Glutose) 15 gm Q15M PRN PO DECREASED GLUCOSE; Start 08/02/18 at 13:30 Glucose (Glutose) 22.5 gm Q15M PRN PO DECREASED GLUCOSE; Start 08/02/18 at 13:30 Dextrose (D50w Syringe) 25 ml Q15M PRN IV DECREASED GLUCOSE; Start 08/02/18 at 13:30 Dextrose (D50w Syringe) 50 ml Q15M PRN IV DECREASED GLUCOSE; Start 08/02/18 at 13:30 Glucagon (Glucagen) 1 mg Q15M PRN IM DECREASED GLUCOSE; Start 08/02/18 at 13:30 Glucose (Glutose) 15 gm Q15M PRN BUCCAL DECREASED GLUCOSE; Start 08/02/18 at 13:30 Cholecalciferol (Vitamin D) 1,000 unit DAILY PO Last administered on 08/08/18 08:32; Admin Dose 1,000 UNIT; Start 08/03/18 at 09:00 Folic Acid (Folic Acid) 1 mg DAILY PO Last administered on 08/08/18 08:31; Admin Dose 1 MG; Start 08/03/18 at 09:00 Levothyroxine Sodium (Synthroid) 50 mcg BEFORE BREAKFAST PO Last administered on 08/08/18 06:14; Admin Dose 50 MCG; Start 08/03/18 at 07:00 Nortriptyline HCl (Aventyl) 10 mg TID PO Last administered on 08/08/18 13:04; Admin Dose 10 MG; Start 08/02/18 at 21:00 Sevelamer Carbonate (Renvela) 0.8 gm AC MEALS PO Last administered on 08/08/18 12:43; Admin Dose 0.8 GM; Start 08/02/18 at 17:30 Midodrine (Proamatine) 5 mg ON DIALYSIS DAYS PO Last administered on 08/07/18 09:54; Admin Dose 5 MG; Start 08/02/18 at 18:00 Insulin Glargine (Lantus) 15 units DAILY@0800 SC Last administered on 08/08/18 07:42; Admin Dose 15 UNITS; Start 08/03/18 at 12:00 Morphine Sulfate (morphine) 6 mg Q4H PRN PO SEVERE PAIN LEVEL 7-10; Start 08/06/18 at 23:30 Albumin Human 100 ml @ 100 mls/hr WITH DIALYSIS PRN IV SBP <90 DURING DIALYSIS; Start 08/07/18 at 10:00 Gabapentin (Neurontin) 100 mg DAILY PO Last administered on 08/08/18at 08:31; Admin Dose 100 MG; Start 08/07/18 at 11:30 Phenol (Cepastat Lozenge) 1 lozenge Q1H PRN MT COUGH Last administered on 08/08/18at 02:34; Admin Dose 1 LOZENGE; Start 08/07/18 at 23:00 JO HURST MD Aug 08, 2018 16:07
[2018-08-09] VITALS (26 sets, daily range): BP systolic 84–145; BP diastolic 40–100; PULSE 90–106; RESP 17–20
[2018-08-09] MEDS: ACCU-CHEK XX SCH (00:20)
[2018-08-09] MEDS: LEVOTHYROXINE 50 MCG TAB PO SCH (06:17)
[2018-08-09] MEDS: INSULIN ASPART [NOVOLOG] 3 ML PEN SC SCH ×4 (07:55→22:00)
[2018-08-09] MEDS: FOLIC ACID 1 MG TAB PO SCH (08:01)
[2018-08-09] MEDS: SEVELAMER CARBONATE 0.8 GM PKT PO SCH ×3 (08:01→17:23)
[2018-08-09] MEDS: GABAPENTIN 100 MG CAP PO SCH (08:01)
[2018-08-09] MEDS: FAMOTIDINE 20 MG TAB PO SCH (08:02)
[2018-08-09] MEDS: CHOLECALCIFEROL 1,000 UNIT TAB PO SCH (08:02)
[2018-08-09] MEDS: INSULIN GLARGINE [LANTus] (100 UNITS/ML) SYG SC SCH (09:14)
--- NOTE | 2018-08-09 10:53 | CONS ---
Assessment/Plan Assessment/Plan Hospital Course (Demo Recall) Pre-operative evaluation: The pt is to undergo intermediate risk surgery. He is not very active at baseline so functional capacity is difficult to determine. However no chest pain and no CAD. He has mild CHF by exam which can be easily corrected with HD. After discussion with his primary clothing examiner, his cardiomyopathy is nonischemic. He is at high risk for surgery but not prohibitive. Acute on chronic systolic CHF: mild by exam Non-ischemic Cardiomyopathy PPM: [employer] 05/04. For ?complete heart block as 100% v paced Pulm HTN: PAP 60s by echo Mild-moderate aortic stenosis Colon cancer: being evaluated for colectomy ESRD on HD -once volume status is corrected with HD, he is optimized for surgery -if surgery is planned, he will need the PPM reprogrammed or a magnet placed as he is pacer dependent -would like to initiate coreg on non dialysis days but if surgery is to be sche duled soon, would not want to initiate negative inotrope yet -HD per nephrology for volume management Consultation Date/Type/Reason Admit Date/Time Aug 02, 2018 at 10:57 Initial Consult Date 08/08/18 Type of Consult Cardiology Requesting Provider: JO HURST MD Date/Time of Note DATE: 08/09/18 TIME: 10:49 24 HR Interval Summary Free Text/Dictation No events. Plan for HD today. Plan for likely transfer to tertiary center for surgery Exam/Review of Systems Exam Vitals Vital Signs Date Temp Pulse Resp B/P (MAP) Pulse Ox O2 O2 Flow FiO2 Time Delivery Rate 08/09/18 101 08:00 08/09/18 98.0 20 103/56 93 Room Air 07:30 (72) 08/06/18 3.0 17:57 Intake and Output 08/08/18 08/08/18 08/09/18 1515:00 23:00 07:00 IntakeIntake Total 900 ml 120 ml BalanceBalance 900 ml 120 ml Constitutional: alert, oriented Psych: no complaints, nl mood/affect Head: normocephalic, atraumatic Neck: supple, jvd (8-9cm) Respiratory: crackles/rales; No clear to auscultation Cardiovascular: regular rate and rhythm, systolic murmur (3/6 mid peaking MICH); No edema Gastrointestinal: soft, non-tender Neurological: nl mental status, nl speech Results Result Diagram: 08/09/18 0626 08/09/18 0626 Results 24hrs Laboratory Tests Test 08/08/18 12:37 08/08/18 18:09 08/08/18 20:36 08/09/18 06:26 Bedside Glucose 182 125 125 White Blood Count 10.4 Red Blood Count 3.40 L Hemoglobin 10.5 L Hematocrit 34.3 L Mean Corpuscular 100.9 Volume Mean Corpuscular 30.9 Hemoglobin Mean Corpuscular 30.6 L Hemoglobin Concent Red Cell 16.7 H Distribution Width Platelet Count 212 Mean Platelet Volume 10.6 H Immature 0.600 H Granulocytes % Neutrophils % 73.6 Lymphocytes % 9.9 L Monocytes % 12.3 H Eosinophils % 2.9 Basophils % 0.7 Nucleated Red Blood 0.0 Cells % Immature 0.060 H Granulocytes # Neutrophils # 7.6 H Lymphocytes # 1.0 Monocytes # 1.3 H Eosinophils # 0.3 Basophils # 0.1 Nucleated Red Blood 0.0 Cells # Sodium Level 137 Potassium Level 4.6 Chloride Level 98 Carbon Dioxide Level 27 Anion Gap 12 Blood Urea Nitrogen 25 H Creatinine 6.63 H Glucose Level 79 Calcium Level 8.2 L Phosphorus Level 6.0 H Magnesium Level 1.9 Albumin 2.8 L Test 08/09/18 08:04 Bedside Glucose 76 Medications Medication Current Medications IV Flush (NS 3 ml) 3 ml PER PROTOCOL IV ; Start 08/02/18 at 13:00 Ondansetron HCl (Zofran Inj) 4 mg Q6H PRN IV NAUSEA/VOMITING; Start 08/02/18 at 13:00 Acetaminophen (Tylenol Tab) 650 mg Q6H PRN PO .PAIN 1-3 OR TEMP Last administered on 08/06/18at 12:57; Admin Dose 650 MG; Start 08/02/18 at 13:00 Acetaminophen/ Hydrocodone Bitart ([place] (5/325)) 1 tab Q6H PRN PO .MOD PAIN 4- 6; Start 08/02/18 at 13:00 Docusate Sodium (Colace) 100 mg Q12H PRN PO .CONSTIPATION; Start 08/02/18 at 13:00 Magnesium Hydroxide (Milk Of Mag) 30 ml DAILY PRN PO .CONSTIPATION; Start 08/02/18 at 13:00 Zolpidem Tartrate (Ambien) 5 mg QHS PRN PO .INSOMNIA; Start 08/02/18 at 13:00 Famotidine (Pepcid) 20 mg DAILY PO Last administered on 08/09/18at 08:02; Admin Dose 20 MG; Start 08/02/18 at 21:00 Diagnostic Test (Pha) (Accu-Chek) 1 ea 02 XX Last administered on 08/08/18at 02:36; Admin Dose 1 EA; Start 08/03/18 at 02:00 Insulin Aspart (Novolog Insulin Pen) NOVOLOG *MILD* ALGORITHM WITH MEALS BEDTIME SC Last administered on 08/08/18at 12:47; Admin Dose 2 UNIT; Start 08/02/18 at 18:00 Miscellaneous Information 1 ea NOTE XX ; Start 08/02/18 at 13:30 Glucose (Glutose) 15 gm Q15M PRN PO DECREASED GLUCOSE; Start 08/02/18 at 13:30 Glucose (Glutose) 22.5 gm Q15M PRN PO DECREASED GLUCOSE; Start 08/02/18 at 13:30 Dextrose (D50w Syringe) 25 ml Q15M PRN IV DECREASED GLUCOSE; Start 08/02/18 at 13:30 Dextrose (D50w Syringe) 50 ml Q15M PRN IV DECREASED GLUCOSE; Start 08/02/18 at 13:30 Glucagon (Glucagen) 1 mg Q15M PRN IM DECREASED GLUCOSE; Start 08/02/18 at 13:30 Glucose (Glutose) 15 gm Q15M PRN BUCCAL DECREASED GLUCOSE; Start 08/02/18 at 13:30 Cholecalciferol (Vitamin D) 1,000 unit DAILY PO Last administered on 08/09/18at 08:02; Admin Dose 1,000 UNIT; Start 08/03/18 at 09:00 Folic Acid (Folic Acid) 1 mg DAILY PO Last administered on 08/09/18 08:01; Admin Dose 1 MG; Start 08/03/18 at 09:00 Levothyroxine Sodium (Synthroid) 50 mcg BEFORE BREAKFAST PO Last administered on 08/09/18 06:17; Admin Dose 50 MCG; Start 08/03/18 at 07:00 Nortriptyline HCl (Aventyl) 10 mg TID PO Last administered on 08/08/18at 20:35; Admin Dose 10 MG; Start 08/02/18 at 21:00 Sevelamer Carbonate (Renvela) 0.8 gm AC MEALS PO Last administered on 08/09/18 08:01; Admin Dose 0.8 GM; Start 08/02/18 at 17:30 Midodrine (Proamatine) 5 mg ON DIALYSIS DAYS PO Last administered on 08/07/18 09:54; Admin Dose 5 MG; Start 08/02/18 at 18:00 Insulin Glargine (Lantus) 15 units DAILY@0800 SC Last administered on 08/09/18at 09:14; Admin Dose 15 UNITS; Start 08/03/18 at 12:00 Morphine Sulfate (morphine) 6 mg Q4H PRN PO SEVERE PAIN LEVEL 7-10; Start 08/06/18 at 23:30 Albumin Human 100 ml @ 100 mls/hr WITH DIALYSIS PRN IV SBP <90 DURING DIALYSIS; Start 08/07/18 at 10:00 Gabapentin (Neurontin) 100 mg DAILY PO Last administered on 08/09/18at 08:01; Admin Dose 100 MG; Start 08/07/18 at 11:30 Phenol (Cepastat Lozenge) 1 lozenge Q1H PRN MT COUGH Last administered on 08/08/18at 02:34; Admin Dose 1 LOZENGE; Start 08/07/18 at 23:00 LUCRETIA QUEEN Aug 09, 2018 10:53
--- NOTE | 2018-08-09 12:05 | CONS ---
[facility] Patient Name: Scott Buck Unit Number: [id number] Date of : 1940 Patient Status: Admitted Inpatient Attending Doctor: Preeti Harris MD Edit: NNEKA FRITZ MD on 08/09/18 @ 18:21 HD TODAY Assessment/Plan Assessment/Plan Hospital Course (Demo Recall) 1. End-stage renal disease, on hemodialysis, TueTHSAt. Hyperkalemia. 2. 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 Hypotension. 4. History of congestive heart failure. 5. Hypercholesterolemia. 6. Total hip replacement. 7. Leukocytosis. 8. Hypoglycemia. 9. Macrocytic hypochromic Anemia mixed etiology, recent blood loss and 2/2 kidney disease 10. Hypothyroidism Assessment/Plan (Daily) - HD tmw -Hemicolectomy per surgery, date is unknown will have to coordinate with dialysis days -Midodrine on dialysis days for hypotension - pt has cardiac clearance. -Renally Dose all meds -Avoid nephrotoxic agents. Consultation Date/Type/Reason Admit Date/Time Aug 02, 2018 at 10:57 Initial Consult Date 08/02/18 Type of Consult nephrology Requesting Provider: PREETI HARRIS MD Date/Time of Note DATE: 08/09/18 TIME: 12:05 Exam/Review of Systems Exam Vitals Vital Signs Date Temp Pulse Resp B/P (MAP) Pulse Ox O2 O2 Flow FiO2 Time Delivery Rate 08/09/18 98.0 101 20 93/53 (66) 97 Room Air 11:56 08/06/18 3.0 17:57 Intake and Output 08/08/18 08/08/18 08/09/18 1515:00 23:00 07:00 IntakeIntake Total 900 ml 120 ml BalanceBalance 900 ml 120 ml Exam left arm AV HERO fistula Constitutional: alert, oriented Head: normocephalic Neck: supple Respiratory: clear to auscultation Cardiovascular: regular rate and rhythm Results Result Diagram: 08/09/18 0608/09/18 06 Results 24hrs Laboratory Tests Test 08/08/18 12:37 08/08/18 18:09 08/08/18 20:36 08/09/18 06:26 Bedside Glucose 182 125 125 White Blood Count 10.4 Red Blood Count 3.40 L Hemoglobin 10.5 L Hematocrit 34.3 L Mean Corpuscular 100.9 Volume Mean Corpuscular 30.9 Hemoglobin Mean Corpuscular 30.6 L Hemoglobin Concent Red Cell 16.7 H Distribution Width Platelet Count 212 Mean Platelet Volume 10.6 H Immature 0.600 H Granulocytes % Neutrophils % 73.6 Lymphocytes % 9.9 L Monocytes % 12.3 H Eosinophils % 2.9 Basophils % 0.7 Nucleated Red Blood 0.0 Cells % Immature 0.060 H Granulocytes # Neutrophils # 7.6 H Lymphocytes # 1.0 Monocytes # 1.3 H Eosinophils # 0.3 Basophils # 0.1 Nucleated Red Blood 0.0 Cells # Sodium Level 137 Potassium Level 4.6 Chloride Level 98 Carbon Dioxide Level 27 Anion Gap 12 Blood Urea Nitrogen 25 H Creatinine 6.63 H Glucose Level 79 Calcium Level 8.2 L Phosphorus Level 6.0 H Magnesium Level 1.9 Albumin 2.8 L Test 08/09/18 08:04 Bedside Glucose 76 Medications Medication Current Medications IV Flush (NS 3 ml) 3 ml PER PROTOCOL IV ; Start 08/02/18 at 13:00 Ondansetron HCl (Zofran Inj) 4 mg Q6H PRN IV NAUSEA/VOMITING; Start 08/02/18 at 13:00 Acetaminophen (Tylenol Tab) 650 mg Q6H PRN PO .PAIN 1-3 OR TEMP Last administered on 08/06/18at 12:57; Admin Dose 650 MG; Start 08/02/18 at 13:00 Acetaminophen/ Hydrocodone Bitart ([place] (5/325)) 1 tab Q6H PRN PO .MOD PAIN 4- 6; Start 08/02/18 at 13:00 Docusate Sodium (Colace) 100 mg Q12H PRN PO .CONSTIPATION; Start 08/02/18 at 13:00 Magnesium Hydroxide (Milk Of Mag) 30 ml DAILY PRN PO .CONSTIPATION; Start 08/02/18 at 13:00 Zolpidem Tartrate (Ambien) 5 mg QHS PRN PO .INSOMNIA; Start 08/02/18 at 13:00 Famotidine (Pepcid) 20 mg DAILY PO Last administered on 08/09/18at 08:02; Admin Dose 20 MG; Start 08/02/18 at 21:00 Diagnostic Test (Pha) (Accu-Chek) 1 ea 02 XX Last administered on 08/08/18at 02:36; Admin Dose 1 EA; Start 08/03/18 at 02:00 Insulin Aspart (Novolog Insulin Pen) NOVOLOG *MILD* ALGORITHM WITH MEALS BEDTIME SC Last administered on 08/08/18at 12:47; Admin Dose 2 UNIT; Start 08/02/18 at 18:00 Miscellaneous Information 1 ea NOTE XX ; Start 08/02/18 at 13:30 Glucose (Glutose) 15 gm Q15M PRN PO DECREASED GLUCOSE; Start 08/02/18 at 13:30 Glucose (Glutose) 22.5 gm Q15M PRN PO DECREASED GLUCOSE; Start 08/02/18 at 13:30 Dextrose (D50w Syringe) 25 ml Q15M PRN IV DECREASED GLUCOSE; Start 08/02/18 at 13:30 Dextrose (D50w Syringe) 50 ml Q15M PRN IV DECREASED GLUCOSE; Start 08/02/18 at 13:30 Glucagon (Glucagen) 1 mg Q15M PRN IM DECREASED GLUCOSE; Start 08/02/18 at 13:30 Glucose (Glutose) 15 gm Q15M PRN BUCCAL DECREASED GLUCOSE; Start 08/02/18 at 13:30 Cholecalciferol (Vitamin D) 1,000 unit DAILY PO Last administered on 08/09/18at 08:02; Admin Dose 1,000 UNIT; Start 08/03/18 at 09:00 Folic Acid (Folic Acid) 1 mg DAILY PO Last administered on 08/09/18at 08:01; Admin Dose 1 MG; Start 08/03/18 at 09:00 Levothyroxine Sodium (Synthroid) 50 mcg BEFORE BREAKFAST PO Last administered on 08/09/18at 06:17; Admin Dose 50 MCG; Start 08/03/18 at 07:00 Nortriptyline HCl (Aventyl) 10 mg TID PO Last administered on 08/08/18 20:35; Admin Dose 10 MG; Start 08/02/18 at 21:00 Sevelamer Carbonate (Renvela) 0.8 gm AC MEALS PO Last administered on 08/09/18 08:01; Admin Dose 0.8 GM; Start 08/02/18 at 17:30 Midodrine (Proamatine) 5 mg ON DIALYSIS DAYS PO Last administered on 08/07/18 09:54; Admin Dose 5 MG; Start 08/02/18 at 18:00 Insulin Glargine (Lantus) 15 units DAILY@0800 SC Last administered on 08/09/18 09:14; Admin Dose 15 UNITS; Start 08/03/18 at 12:00 Morphine Sulfate (morphine) 6 mg Q4H PRN PO SEVERE PAIN LEVEL 7-10; Start 08/06/18 at 23:30 Albumin Human 100 ml @ 100 mls/hr WITH DIALYSIS PRN IV SBP <90 DURING DIALYSIS; Start 08/07/18 at 10:00 Gabapentin (Neurontin) 100 mg DAILY PO Last administered on 08/09/18at 08:01; Admin Dose 100 MG; Start 08/07/18 at 11:30 Phenol (Cepastat Lozenge) 1 lozenge Q1H PRN MT COUGH Last administered on 08/08/18 02:34; Admin Dose 1 LOZENGE; Start 08/07/18 at 23:00 TU CARTER Aug 09, 2018 12:05
[2018-08-09] MEDS: NORTRIPTYLINE 10 MG CAP PO SCH ×3 (13:00→23:55)
--- NOTE | 2018-08-09 15:17 | CONS ---
Assessment/Plan Assessment/Plan Hospital Course (Demo Recall) #Colon ca -per bx patient appears to have 2 separate masses with different pathology results. 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 -CT does not reveal evidence of distant mets -pt needs a hemicolectomy to remove the masses and to more fully evaluate the pathologic specimens and determine what kind of cancer it is -if he is too high risk to have surgery at [facility], pt will need to be transferred for higher level of care -further recommendations for chemotherapy will be based on the surgical pathology results #ESRD -continue HD per renal #Diabetes - A1c noted - Continue Lantus and ISS #Hypothyroidism - Continue Synthroid #Nonischemic CM - pacer in place - nonchronic Thank you for the opportunity to participate in this patients care A total of 40 minutes of face to face time was spent speaking with the patient, of which greater than 50% was spent in counseling and coordination of care and the detailed question and answer session. Consultation Date/Type/Reason Admit Date/Time Aug 02, 2018 at 10:57 Date of Consultation: Aug 09, 2018 Type of Consult oncology Reason for Consultation colon cancer Requesting Provider: JO HURST MD Date/Time of Note DATE: 08/09/18 TIME: 15:09 Hx of Present Illness Mr Buck is a pleasant 78 yo male with multiple medical problems who initially presented to [facility] on 08/02/18 with 2 weeks of pregressive weakness and hematochezia. 08/02/18 CT A/P was done which revealed a large irregular mass measuring 10.6 cm x 6.2cm involving the splenic flexure of the large bowel. There was also question of a possible fistula connecting it to the small bowel. 08/06/18 Colonoscopy was done which revealed a 4cm ascending colon mass. This was bx and confirmed as moderately differentiated adenocarcinoma with surface ulceration. Also seen was a splenic flexure mass > 6cm. On bx this was noted to be a spindle cell neoplasm. This mass occluded the colonic lumen. 08/06/18 EGD demonstrated gastritis Pt has been deemed a high risk surgical candidate. We have been consulted for further oncologic recommendations. Pt currently denies any GIB. Hg has been stable. Constitutional: no complaints Eyes: no complaints ENT: no complaints Respiratory: no complaints Cardiovascular: no complaints Gastrointestinal: no complaints Genitourinary: no complaints Musculoskeletal: back pain, bone/joint pain Neurologic: no complaints Endocrine: no complaints Psychological: no complaints Past Medical History hypertension dyslipidemia hypothyroidism, diabetes esophagitis/duodenitis/gastritis end-stage renal disease on dialysis. Home Meds Active Scripts Hydrocodone/Acetaminophen ([place] 5-325 Tablet) 1 Each Tablet, 1 EACH PO Q8 PRN for PAIN, #21 TAB Prov:DULCE GALINDO 03/29/17 Reported Medications Midodrine* (Midodrine*) 5 Mg Tablet, 5 MG PO DAILY, TAB THE DAYS OF DIALYSIS 08/02/18 Nortriptyline Hcl* (Nortriptyline Hcl*) 10 Mg Capsule, 10 MG PO TID, CAP 08/02/18 Aspirin* (Aspirin* Chew) 81 Mg Tab.chew, 81 MG PO DAILY, TAB.CHEW 08/02/18 Cholecalciferol* (Vitamin D3*) 1,000 Unit Tablet, 1000 UNIT PO DAILY, TAB 03/28/17 Cyanocobalamin* (Vitamin B12*) Unknown Strength Tab, 1 TAB PO Q MON,FRI, TAB 03/28/17 Sevelamer Carbonate* (Renvela*) 800 Mg Tablet, 0.8 GM PO WITH MEALS BID, TAB 03/28/17 Levothyroxine Sodium* (Synthroid*) 50 Mcg Tablet, 50 MCG PO BEFORE BREAKFAST, #30 TAB 08/21/16 Atorvastatin Calcium* (Atorvastatin Calcium*) 20 Mg Tablet, 20 MG PO QHS, #30 TAB 08/21/16 Folic Acid* (Folic Acid*) 1 Mg Tablet, 1 MG PO DAILY, TAB 08/21/16 Insulin Lispro (Humalog) 100 Unit/1 Ml Cartridge, 0 SQ TID SLIDING SCALES 08/21/16 Insulin Glargine* (Lantus*) 100 Unit/Ml Soln, 20 UNIT SC BID, #1 VIAL 08/21/16 Discontinued Reported Medications Amitriptyline Hcl* (Amitriptyline Hcl*) 75 Mg Tablet, 37.5 MG PO QHS, #30 TAB 08/21/16 Medications Current Medications IV Flush (NS 3 ml) 3 ml PER PROTOCOL IV ; Start 08/02/18 at 13:00 Ondansetron HCl (Zofran Inj) 4 mg Q6H PRN IV NAUSEA/VOMITING; Start 08/02/18 at 13:00 Acetaminophen (Tylenol Tab) 650 mg Q6H PRN PO .PAIN 1-3 OR TEMP Last administered on 08/06/18at 12:57; Admin Dose 650 MG; Start 08/02/18 at 13:00 Acetaminophen/ Hydrocodone Bitart ([place] (5/325)) 1 tab Q6H PRN PO .MOD PAIN 4- 6; Start 08/02/18 at 13:00 Docusate Sodium (Colace) 100 mg Q12H PRN PO .CONSTIPATION; Start 08/02/18 at 13:00 Magnesium Hydroxide (Milk Of Mag) 30 ml DAILY PRN PO .CONSTIPATION; Start at 13:00 Zolpidem Tartrate (Ambien) 5 mg QHS PRN PO .INSOMNIA; Start 08/02/18 at 13:00 Famotidine (Pepcid) 20 mg DAILY PO Last administered on 08/09/18at 08:02; Admin Dose 20 MG; Start 08/02/18 at 21:00 Diagnostic Test (Pha) (Accu-Chek) 1 ea 02 XX Last administered on 08/08/18at 02:36; Admin Dose 1 EA; Start 08/03/18 at 02:00 Insulin Aspart (Novolog Insulin Pen) NOVOLOG *MILD* ALGORITHM WITH MEALS BEDTIME SC Last administered on 08/08/18at 12:47; Admin Dose 2 UNIT; Start 08/02/18 at 18:00 Miscellaneous Information 1 ea NOTE XX ; Start 08/02/18 at 13:30 Glucose (Glutose) 15 gm Q15M PRN PO DECREASED GLUCOSE; Start 08/02/18 at 13:30 Glucose (Glutose) 22.5 gm Q15M PRN PO DECREASED GLUCOSE; Start 08/02/18 at 13:30 Dextrose (D50w Syringe) 25 ml Q15M PRN IV DECREASED GLUCOSE; Start 08/02/18 at 13:30 Dextrose (D50w Syringe) 50 ml Q15M PRN IV DECREASED GLUCOSE; Start 08/02/18 at 13:30 Glucagon (Glucagen) 1 mg Q15M PRN IM DECREASED GLUCOSE; Start 08/02/18 at 13:30 Glucose (Glutose) 15 gm Q15M PRN BUCCAL DECREASED GLUCOSE; Start 08/02/18 at 13:30 Cholecalciferol (Vitamin D) 1,000 unit DAILY PO Last administered on 08/09/18 08:02; Admin Dose 1,000 UNIT; Start 08/03/18 at 09:00 Folic Acid (Folic Acid) 1 mg DAILY PO Last administered on 08/09/18 08:01; Admin Dose 1 MG; Start 08/03/18 at 09:00 Levothyroxine Sodium (Synthroid) 50 mcg BEFORE BREAKFAST PO Last administered on 08/09/18 06:17; Admin Dose 50 MCG; Start 08/03/18 at 07:00 Nortriptyline HCl (Aventyl) 10 mg TID PO Last administered on 08/09/18 13:55; Admin Dose 10 MG; Start 08/02/18 at 21:00 Sevelamer Carbonate (Renvela) 0.8 gm AC MEALS PO Last administered on 08/09/18 13:45; Admin Dose 0.8 GM; Start 08/02/18 at 17:30 Midodrine (Proamatine) 5 mg ON DIALYSIS DAYS PO Last administered on 08/07/18 09:54; Admin Dose 5 MG; Start 08/02/18 at 18:00 Insulin Glargine (Lantus) 15 units DAILY@0800 SC Last administered on 08/09/18 09:14; Admin Dose 15 UNITS; Start 08/03/18 at 12:00 Morphine Sulfate (morphine) 6 mg Q4H PRN PO SEVERE PAIN LEVEL 7-10; Start 08/06/18 at 23:30 Albumin Human 100 ml @ 100 mls/hr WITH DIALYSIS PRN IV SBP <90 DURING DIALYSIS; Start 08/07/18 at 10:00 Gabapentin (Neurontin) 100 mg DAILY PO Last administered on 08/09/18 08:01; Admin Dose 100 MG; Start 08/07/18 at 11:30 Phenol (Cepastat Lozenge) 1 lozenge Q1H PRN MT COUGH Last administered on 08/08/18 02:34; Admin Dose 1 LOZENGE; Start 08/07/18 at 23:00 Allergies: Coded Allergies: hydromorphone (Verified Allergy, Unknown, UNKNOWN, 08/02/18) Past Surgical History Past Surgical Hx: other (Hip replacement) Family History Significant Family History: no pertinent family hx Social History Alcohol Use: none Smoking Status: Never smoker Drug Use: none Exam/Review of Systems Exam Vitals Vital Signs Date Temp Pulse Resp B/P (MAP) Pulse Ox O2 O2 Flow FiO2 Time Delivery Rate 08/09/18 99 12:05 08/09/18 98.0 20 93/53 (66) 97 Room Air 11:56 08/06/18 3.0 17:57 Intake and Output 08/08/18 08/08/18 08/09/18 1515:00 23:00 07:00 IntakeIntake Total 900 ml 120 ml BalanceBalance 900 ml 120 ml Constitutional: alert, oriented Psych: no complaints Head: normocephalic Eyes: nl conjunctiva ENMT: nl external ears & nose Neck: supple, non-tender Respiratory: clear to auscultation Cardiovascular: regular rate and rhythm Gastrointestinal: soft Musculoskeletal: nl extremities to inspection Extremities: normal pulses Neurological: [employer] II-XII intact Results Result Diagram: 08/09/18 0626 08/09/18 0626 Results 24hrs Laboratory Tests Test 08/08/18 18:09 08/08/18 20:36 08/09/18 06:26 08/09/18 08:04 Bedside Glucose 125 125 76 White Blood Count 10.4 Red Blood Count 3.40 L Hemoglobin 10.5 L Hematocrit 34.3 L Mean Corpuscular 100.9 Volume Mean Corpuscular 30.9 Hemoglobin Mean Corpuscular 30.6 L Hemoglobin Concent Red Cell 16.7 H Distribution Width Platelet Count 212 Mean Platelet Volume 10.6 H Immature 0.600 H Granulocytes % Neutrophils % 73.6 Lymphocytes % 9.9 L Monocytes % 12.3 H Eosinophils % 2.9 Basophils % 0.7 Nucleated Red Blood 0.0 Cells % Immature 0.060 H Granulocytes # Neutrophils # 7.6 H Lymphocytes # 1.0 Monocytes # 1.3 H Eosinophils # 0.3 Basophils # 0.1 Nucleated Red Blood 0.0 Cells # Sodium Level 137 Potassium Level 4.6 Chloride Level 98 Carbon Dioxide Level 27 Anion Gap 12 Blood Urea Nitrogen 25 H Creatinine 6.63 H Glucose Level 79 Calcium Level 8.2 L Phosphorus Level 6.0 H Magnesium Level 1.9 Albumin 2.8 L Test 08/09/18 12:16 Bedside Glucose 113 Medications Medication Current Medications IV Flush (NS 3 ml) 3 ml PER PROTOCOL IV ; Start 08/02/18 at 13:00 Ondansetron HCl (Zofran Inj) 4 mg Q6H PRN IV NAUSEA/VOMITING; Start 08/02/18 at 13:00 Acetaminophen (Tylenol Tab) 650 mg Q6H PRN PO .PAIN 1-3 OR TEMP Last administered on 08/06/18at 12:57; Admin Dose 650 MG; Start 08/02/18 at 13:00 Acetaminophen/ Hydrocodone Bitart ([place] (5/325)) 1 tab Q6H PRN PO .MOD PAIN 4-6; Start 08/02/18 at 13:00 Docusate Sodium (Colace) 100 mg Q12H PRN PO .CONSTIPATION; Start 08/02/18 at 13:00 Magnesium Hydroxide (Milk Of Mag) 30 ml DAILY PRN PO .CONSTIPATION; Start 08/02/18 at 13:00 Zolpidem Tartrate (Ambien) 5 mg QHS PRN PO .INSOMNIA; Start 08/02/18 at 13:00 Famotidine (Pepcid) 20 mg DAILY PO Last administered on 08/09/18at 08:02; Admin Dose 20 MG; Start 08/02/18 at 21:00 Diagnostic Test (Pha) (Accu-Chek) 1 ea 02 XX Last administered on 08/08/18at 02:36; Admin Dose 1 EA; Start 08/03/18 at 02:00 Insulin Aspart (Novolog Insulin Pen) NOVOLOG *MILD* ALGORITHM WITH MEALS BED TIME SC Last administered on 08/08/18at 12:47; Admin Dose 2 UNIT; Start 08/02/18 at 18:00 Miscellaneous Information 1 ea NOTE XX ; Start 08/02/18 at 13:30 Glucose (Glutose) 15 gm Q15M PRN PO DECREASED GLUCOSE; Start 08/02/18 at 13:30 Glucose (Glutose) 22.5 gm Q15M PRN PO DECREASED GLUCOSE; Start 08/02/18 at 13:30 Dextrose (D50w Syringe) 25 ml Q15M PRN IV DECREASED GLUCOSE; Start 08/02/18 at 13:30 Dextrose (D50w Syringe) 50 ml Q15M PRN IV DECREASED GLUCOSE; Start 08/02/18 at 13:30 Glucagon (Glucagen) 1 mg Q15M PRN IM DECREASED GLUCOSE; Start 08/02/18 at 13:30 Glucose (Glutose) 15 gm Q15M PRN BUCCAL DECREASED GLUCOSE; Start 08/02/18 at 13:30 Cholecalciferol (Vitamin D) 1,000 unit DAILY PO Last administered on 08/09/18 08:02; Admin Dose 1,000 UNIT; Start 08/03/18 at 09:00 Folic Acid (Folic Acid) 1 mg DAILY PO Last administered on 08/09/18 08:01; Admin Dose 1 MG; Start 08/03/18 at 09:00 Levothyroxine Sodium (Synthroid) 50 mcg BEFORE BREAKFAST PO Last administered on 08/09/18 06:17; Admin Dose 50 MCG; Start 08/03/18 at 07:00 Nortriptyline HCl (Aventyl) 10 mg TID PO Last administered on 08/09/18 13:55; Admin Dose 10 MG; Start 08/02/18 at 21:00 Sevelamer Carbonate (Renvela) 0.8 gm AC MEALS PO Last administered on 08/09/18 13:45; Admin Dose 0.8 GM; Start 08/02/18 at 17:30 Midodrine (Proamatine) 5 mg ON DIALYSIS DAYS PO Last administered on 08/07/18 09:54; Admin Dose 5 MG; Start 08/02/18 at 18:00 Insulin Glargine (Lantus) 15 units DAILY@0800 SC Last administered on 08/09/18 09:14; Admin Dose 15 UNITS; Start 08/03/18 at 12:00 Morphine Sulfate (morphine) 6 mg Q4H PRN PO SEVERE PAIN LEVEL 7-10; Start 08/06/18 at 23:30 Albumin Human 100 ml @ 100 mls/hr WITH DIALYSIS PRN IV SBP <90 DURING DIALYSIS; Start 08/07/18 at 10:00 Gabapentin (Neurontin) 100 mg DAILY PO Last administered on 08/09/18 08:01; Admin Dose 100 MG; Start 08/07/18 at 11:30 Phenol (Cepastat Lozenge) 1 lozenge Q1H PRN MT COUGH Last administered on 08/08/18 02:34; Admin Dose 1 LOZENGE; Start 08/07/18 at 23:00 JAGUAR CARTWRIGHT M.D. Aug 09, 2018 15:17
--- NOTE | 2018-08-09 16:30 | PN ---
Date/Time of Note Date/Time of Note DATE: 08/09/18 TIME: 16:16 Assessment/Plan VTE Prophylaxis Risk score (from Ns)>0 risk: 3 SCD applied (from Ns): Yes Pharmacological prophylaxis: NA/contraindicated Pharm contraindication: bleeding Lines/Catheters IV Catheter Type (from Nrsg): Mid Line Urinary Cath still in place: No Assessment/Plan Assessment/Plan 1. Colonic mass at the splenic flexure and ascending colon - Discussed finding with Dr. Meneses, colorectal surgeon, who plans to come evaluate the patient today for surgery. Appreciate consultation and rec ommendations - GI on board and appreciate recommendations. 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 Patient high risk from his standpoint and okay with second opinion from colorectal surgery - Cardiology consultation appreciated and medically optimized for surgical intervention. Pacer in place and will need to be reprogramed. 2. End-stage renal disease on HD - Nephrology on board for HD management and appreciate recommendations 3. Diabetes - A1c noted - Continue Lantus and ISS 4. Esophagitis - Continue PPI 5. Hypothyroidism - Continue home Synthroid 6. Persistent cough - improvement with Gabapentin 7. Nonischemic CM - pacer in place - nonchronic 8. Mild acute on chronic systolic HF - fluid removal during HD 9. Disposition - Dr. Meneses consulted for recommendations on surgical intervention - Will keep on full liquid diet for now - Discussed plan of care with daughter at bedside. Result Diagram: 08/09/18 0608/09/18 0626 Results 24hrs Laboratory Tests Test 08/08/18 18:09 08/08/18 20:36 08/09/18 06:26 08/09/18 08:04 Bedside Glucose 125 125 76 White Blood Count 10.4 Red Blood Count 3.40 L Hemoglobin 10.5 L Hematocrit 34.3 L Mean Corpuscular 100.9 Volume Mean Corpuscular 30.9 Hemoglobin Mean Corpuscular 30.6 L Hemoglobin Concent Red Cell 16.7 H Distribution Width Platelet Count 212 Mean Platelet Volume 10.6 H Immature 0.600 H Granulocytes % Neutrophils % 73.6 Lymphocytes % 9.9 L Monocytes % 12.3 H Eosinophils % 2.9 Basophils % 0.7 Nucleated Red Blood 0.0 Cells % Immature 0.060 H Granulocytes # Neutrophils # 7.6 H Lymphocytes # 1.0 Monocytes # 1.3 H Eosinophils # 0.3 Basophils # 0.1 Nucleated Red Blood 0.0 Cells # Sodium Level 137 Potassium Level 4.6 Chloride Level 98 Carbon Dioxide Level 27 Anion Gap 12 Blood Urea Nitrogen 25 H Creatinine 6.63 H Glucose Level 79 Calcium Level 8.2 L Phosphorus Level 6.0 H Magnesium Level 1.9 Albumin 2.8 L Test 08/09/18 12:16 Bedside Glucose 113 Subjective 24 Hr Interval Summary Free Text/Dictation Patient states he feels weak and now with loose stool since started eating soft diet. No acute overnight events. Daughter at bedside and discussed plan of care. Exam/Review of Systems Exam Vitals Vital Signs Date Temp Pulse Resp B/P (MAP) Pulse Ox O2 O2 Flow FiO2 Time Delivery Rate 08/09/18 98.2 92 20 105/50 99 Room Air 16:10 (68) 08/06/18 3.0 17:57 Intake and Output 08/08/18 08/08/18 08/09/18 1515:00 23:00 07:00 IntakeIntake Total 900 ml 120 ml BalanceBalance 900 ml 120 ml Exam General: Patient is a pleasant male, no acute distress Neck: Supple Chest: Nontender Lungs: Clear to auscultation bilaterally no crackles rales or wheezing Heart: Normal S1-S2, Regular rate and rhythm. no murmurs Abdomen: Soft , nontender, nondistended , bowel sounds are present. No guarding no rebound tenderness , No masses or organomegaly. Extremities: Swelling of LUE Results Results 24hrs Laboratory Tests Test 08/08/18 18:09 08/08/18 20:36 08/09/18 06:26 08/09/18 08:04 Bedside Glucose 125 125 76 White Blood Count 10.4 Red Blood Count 3.40 L Hemoglobin 10.5 L Hematocrit 34.3 L Mean Corpuscular 100.9 Volume Mean Corpuscular 30.9 Hemoglobin Mean Corpuscular 30.6 L Hemoglobin Concent Red Cell 16.7 H Distribution Width Platelet Count 212 Mean Platelet Volume 10.6 H Immature 0.600 H Granulocytes % Neutrophils % 73.6 Lymphocytes % 9.9 L Monocytes % 12.3 H Eosinophils % 2.9 Basophils % 0.7 Nucleated Red Blood 0.0 Cells % Immature 0.060 H Granulocytes # Neutrophils # 7.6 H Lymphocytes # 1.0 Monocytes # 1.3 H Eosinophils # 0.3 Basophils # 0.1 Nucleated Red Blood 0.0 Cells # Sodium Level 137 Potassium Level 4.6 Chloride Level 98 Carbon Dioxide Level 27 Anion Gap 12 Blood Urea Nitrogen 25 H Creatinine 6.63 H Glucose Level 79 Calcium Level 8.2 L Phosphorus Level 6.0 H Magnesium Level 1.9 Albumin 2.8 L Test 08/09/18 12:16 Bedside Glucose 113 Medications Medication Current Medications IV Flush (NS 3 ml) 3 ml PER PROTOCOL IV ; Start 08/02/18 at 13:00 Ondansetron HCl (Zofran Inj) 4 mg Q6H PRN IV NAUSEA/VOMITING; Start 08/02/18 at 13:00 Acetaminophen (Tylenol Tab) 650 mg Q6H PRN PO .PAIN 1-3 OR TEMP Last administered on 08/06/18at 12:57; Admin Dose 650 MG; Start 08/02/18 at 13:00 Acetaminophen/ Hydrocodone Bitart ([place] (5/325)) 1 tab Q6H PRN PO .MOD PAIN 4- 6; Start 08/02/18 at 13:00 Docusate Sodium (Colace) 100 mg Q12H PRN PO .CONSTIPATION; Start 08/02/18 at 13:00 Magnesium Hydroxide (Milk Of Mag) 30 ml DAILY PRN PO .CONSTIPATION; Start 08/02/18 at 13:00 Zolpidem Tartrate (Ambien) 5 mg QHS PRN PO .INSOMNIA; Start 08/02/18 at 13:00 Famotidine (Pepcid) 20 mg DAILY PO Last administered on 08/09/18at 08:02; Admin Dose 20 MG; Start 08/02/18 at 21:00 Diagnostic Test (Pha) (Accu-Chek) 1 ea 02 XX Last administered on 08/08/18at 02:36; Admin Dose 1 EA; Start 08/03/18 at 02:00 Insulin Aspart (Novolog Insulin Pen) NOVOLOG *MILD* ALGORITHM WITH MEALS BEDTIME SC Last administered on 08/08/18at 12:47; Admin Dose 2 UNIT; Start 08/02/18 at 18:00 Miscellaneous Information 1 ea NOTE XX ; Start 08/02/18 at 13:30 Glucose (Glutose) 15 gm Q15M PRN PO DECREASED GLUCOSE; Start 08/02/18 at 13:30 Glucose (Glutose) 22.5 gm Q15M PRN PO DECREASED GLUCOSE; Start 08/02/18 at 13:30 Dextrose (D50w Syringe) 25 ml Q15M PRN IV DECREASED GLUCOSE; Start 08/02/18 at 13:30 Dextrose (D50w Syringe) 50 ml Q15M PRN IV DECREASED GLUCOSE; Start 08/02/18 at 13:30 Glucagon (Glucagen) 1 mg Q15M PRN IM DECREASED GLUCOSE; Start 08/02/18 at 13:30 Glucose (Glutose) 15 gm Q15M PRN BUCCAL DECREASED GLUCOSE; Start 08/02/18 at 13:30 Cholecalciferol (Vitamin D) 1,000 unit DAILY PO Last administered on 08/09/18 08:02; Admin Dose 1,000 UNIT; Start 08/03/18 at 09:00 Folic Acid (Folic Acid) 1 mg DAILY PO Last administered on 08/09/18 08:01; Admin Dose 1 MG; Start 08/03/18 at 09:00 Levothyroxine Sodium (Synthroid) 50 mcg BEFORE BREAKFAST PO Last administered on 08/09/18 06:17; Admin Dose 50 MCG; Start 08/03/18 at 07:00 Nortriptyline HCl (Aventyl) 10 mg TID PO Last administered on 08/09/18 13:55; Admin Dose 10 MG; Start 08/02/18 at 21:00 Sevelamer Carbonate (Renvela) 0.8 gm AC MEALS PO Last administered on 08/09/18 13:45; Admin Dose 0.8 GM; Start 08/02/18 at 17:30 Midodrine (Proamatine) 5 mg ON DIALYSIS DAYS PO Last administered on 08/07/18 09:54; Admin Dose 5 MG; Start 08/02/18 at 18:00 Insulin Glargine (Lantus) 15 units DAILY@0800 SC Last administered on 08/09/18 09:14; Admin Dose 15 UNITS; Start 08/03/18 at 12:00 Morphine Sulfate (morphine) 6 mg Q4H PRN PO SEVERE PAIN LEVEL 7-10; Start 08/06/18 at 23:30 Albumin Human 100 ml @ 100 mls/hr WITH DIALYSIS PRN IV SBP <90 DURING DIALYSIS; Start 08/07/18 at 10:00 Gabapentin (Neurontin) 100 mg DAILY PO Last administered on 08/09/18at 08:01; Admin Dose 100 MG; Start 08/07/18 at 11:30 Phenol (Cepastat Lozenge) 1 lozenge Q1H PRN MT COUGH Last administered on 08/08/18at 02:34; Admin Dose 1 LOZENGE; Start 08/07/18 at 23:00 JO HURST MD Aug 09, 2018 16:30
--- NOTE | 2018-08-09 17:31 | CONS ---
Assessment/Plan Assessment/Plan Hospital Course (Demo Recall) Pt is anemic but stable. Now taking full liquid diet Assessment/Plan (Daily) Once stable and cleared for surgery by cardiology will try and schedule for surgery and timing around his dialysis I discussed w/ the pt/ spouse, and 1 daughter the need for a sub-total colectomy and will try to do laparoscopically. Will likely need a post op ICU bed We discussed risks including the possibility of a temporary colostomy. They understand and wish to proceed when it is safe to do so. Consultation Date/Type/Reason Admit Date/Time Aug 02, 2018 at 10:57 Date of Consultation: Aug 09, 2018 Type of Consult [place]-rectal surgical consult Reason for Consultation Colon tumor x 2, with bleeding, diarrhea, and partial obstruction Date/Time of Note DATE: 08/09/18 TIME: 17:18 Hx of Present Illness This is a pleasant 78 y/o White male who was admitted 7 days ago w/ bloody diarrhea via the ER. CT done at that time shoed a suspicious tumor in the splenic flexure. EGD/ colonoscopy was done on08/06 and revealed 2 tumors ( 4 cm ascending colon cancer, and 6 cm splenic flexure spindle cell or GIST tumor). His last colonoscopy was in 2012 and was " negative". Other significant medical problems include CRF ( on dialysis x 3 yrs), DM, CHF ( 35% EF), a hx of prostate ca ( Robotic prostatectomy), and kidney stones. Constitutional: other (anemia) Eyes: no complaints ENT: no complaints Respiratory: no complaints Gastrointestinal: blood, diarrhea Musculoskeletal: no complaints Neurologic: no complaints Past Medical History Medical History: congestive heart failure, diabetes, renal disease Home Meds Active Scripts Hydrocodone/Acetaminophen ([place] 5-325 Tablet) 1 Each Tablet, 1 EACH PO Q8 PRN for PAIN, #21 TAB Prov:DULCE GALINDO 03/29/17 Reported Medications Midodrine* (Midodrine*) 5 Mg Tablet, 5 MG PO DAILY, TAB THE DAYS OF DIALYSIS 08/02/18 Nortriptyline Hcl* (Nortriptyline Hcl*) 10 Mg Capsule, 10 MG PO TID, CAP 08/02/18 Aspirin* (Aspirin* Chew) 81 Mg Tab.chew, 81 MG PO DAILY, TAB.CHEW 08/02/18 Cholecalciferol* (Vitamin D3*) 1,000 Unit Tablet, 1000 UNIT PO DAILY, TAB 03/28/17 Cyanocobalamin* (Vitamin B12*) Unknown Strength Tab, 1 TAB PO Q MON,FRI, TAB 03/28/17 Sevelamer Carbonate* (Renvela*) 800 Mg Tablet, 0.8 GM PO WITH MEALS BID, TAB 03/28/17 Levothyroxine Sodium* (Synthroid*) 50 Mcg Tablet, 50 MCG PO BEFORE BREAKFAST, #30 TAB 08/21/16 Atorvastatin Calcium* (Atorvastatin Calcium*) 20 Mg Tablet, 20 MG PO QHS, #30 TAB 08/21/16 Folic Acid* (Folic Acid*) 1 Mg Tablet, 1 MG PO DAILY, TAB 08/21/16 Insulin Lispro (Humalog) 100 Unit/1 Ml Cartridge, 0 SQ TID SLIDING SCALES 08/21/16 Insulin Glargine* (Lantus*) 100 Unit/Ml Soln, 20 UNIT SC BID, #1 VIAL 08/21/16 Discontinued Reported Medications Amitriptyline Hcl* (Amitriptyline Hcl*) 75 Mg Tablet, 37.5 MG PO QHS, #30 TAB 08/21/16 Medications Current Medications IV Flush (NS 3 ml) 3 ml PER PROTOCOL IV ; Start 08/02/18 at 13:00 Ondansetron HCl (Zofran Inj) 4 mg Q6H PRN IV NAUSEA/VOMITING; Start 08/02/18 at 13:00 Acetaminophen (Tylenol Tab) 650 mg Q6H PRN PO .PAIN 1-3 OR TEMP Last administered on 08/06/18at 12:57; Admin Dose 650 MG; Start 08/02/18 at 13:00 Acetaminophen/ Hydrocodone Bitart ([place] (5/325)) 1 tab Q6H PRN PO .MOD PAIN 4- 6; Start 08/02/18 at 13:00 Docusate Sodium (Colace) 100 mg Q12H PRN PO .CONSTIPATION; Start 08/02/18 at 13:00 Magnesium Hydroxide (Milk Of Mag) 30 ml DAILY PRN PO .CONSTIPATION; Start 08/02/18 at 13:00 Zolpidem Tartrate (Ambien) 5 mg QHS PRN PO .INSOMNIA; Start 08/02/18 at 13:00 Famotidine (Pepcid) 20 mg DAILY PO Last administered on 08/09/18 08:02; Admin Dose 20 MG; Start 08/02/18 at 21:00 Diagnostic Test (Pha) (Accu-Chek) 1 ea 02 XX Last administered on 08/08/18at 02:36; Admin Dose 1 EA; Start 08/03/18 at 02:00 Insulin Aspart (Novolog Insulin Pen) NOVOLOG *MILD* ALGORITHM WITH MEALS BEDTIME SC Last administered on 08/08/18at 12:47; Admin Dose 2 UNIT; Start 08/02/18 at 18:00 Miscellaneous Information 1 ea NOTE XX ; Start 08/02/18 at 13:30 Glucose (Glutose) 15 gm Q15M PRN PO DECREASED GLUCOSE; Start 08/02/18 at 13:30 Glucose (Glutose) 22.5 gm Q15M PRN PO DECREASED GLUCOSE; Start 08/02/18 at 13:30 Dextrose (D50w Syringe) 25 ml Q15M PRN IV DECREASED GLUCOSE; Start 08/02/18 at 13:30 Dextrose (D50w Syringe) 50 ml Q15M PRN IV DECREASED GLUCOSE; Start 08/02/18 at 13:30 Glucagon (Glucagen) 1 mg Q15M PRN IM DECREASED GLUCOSE; Start 08/02/18 at 13:30 Glucose (Glutose) 15 gm Q15M PRN BUCCAL DECREASED GLUCOSE; Start 08/02/18 at 13:30 Cholecalciferol (Vitamin D) 1,000 unit DAILY PO Last administered on 08/09/18 08:02; Admin Dose 1,000 UNIT; Start 08/03/18 at 09:00 Folic Acid (Folic Acid) 1 mg DAILY PO Last administered on 08/09/18 08:01; Admin Dose 1 MG; Start 08/03/18 at 09:00 Levothyroxine Sodium (Synthroid) 50 mcg BEFORE BREAKFAST PO Last administered on 08/09/18 06:17; Admin Dose 50 MCG; Start 08/03/18 at 07:00 Nortriptyline HCl (Aventyl) 10 mg TID PO Last administered on 08/09/18 13:55; Admin Dose 10 MG; Start 08/02/18 at 21:00 Sevelamer Carbonate (Renvela) 0.8 gm AC MEALS PO Last administered on 08/09/18 13:45; Admin Dose 0.8 GM; Start 08/02/18 at 17:30 Midodrine (Proamatine) 5 mg ON DIALYSIS DAYS PO Last administered on 08/07/18at 09:54; Admin Dose 5 MG; Start 08/02/18 at 18:00 Insulin Glargine (Lantus) 15 units DAILY@0800 SC Last administered on 08/09/18at 09:14; Admin Dose 15 UNITS; Start 08/03/18 at 12:00 Morphine Sulfate (morphine) 6 mg Q4H PRN PO SEVERE PAIN LEVEL 7-10; Start 08/06/18 at 23:30 Albumin Human 100 ml @ 100 mls/hr WITH DIALYSIS PRN IV SBP <90 DURING DIALYSIS; Start 08/07/18 at 10:00 Gabapentin (Neurontin) 100 mg DAILY PO Last administered on 08/09/18at 08:01; Admin Dose 100 MG; Start 08/07/18 at 11:30 Phenol (Cepastat Lozenge) 1 lozenge Q1H PRN MT COUGH Last administered on 08/08/18at 02:34; Admin Dose 1 LOZENGE; Start 08/07/18 at 23:00 Allergies: Coded Allergies: hydromorphone (Verified Allergy, Unknown, UNKNOWN, 08/02/18) Past Surgical History Past Surgical Hx: cholecystectomy (2008), other (Hip replacement, and prostatectomy for cancer) Family History Significant Family History: no pertinent family hx Social History Alcohol Use: none Smoking Status: Never smoker Drug Use: none Other Social History x 53 yrs and 3 daughters Exam/Review of Systems Exam Vitals Vital Signs Date Temp Pulse Resp B/P (MAP) Pulse Ox O2 O2 Flow FiO2 Time Delivery Rate 08/09/18 98.2 92 20 105/50 99 Room Air 16:10 (68) 08/06/18 3.0 17:57 Intake and Output 08/08/18 08/08/18 08/09/18 1515:00 23:00 07:00 IntakeIntake Total 900 ml 120 ml BalanceBalance 900 ml 120 ml Results Result Diagram: 08/09/18 0626 08/09/18 0626 Results 24hrs Laboratory Tests Test 08/08/18 18:09 08/08/18 20:36 08/09/18 06:26 08/09/18 08:04 Bedside Glucose 125 125 76 White Blood Count 10.4 Red Blood Count 3.40 L Hemoglobin 10.5 L Hematocrit 34.3 L Mean Corpuscular 100.9 Volume Mean Corpuscular 30.9 Hemoglobin Mean Corpuscular 30.6 L Hemoglobin Concent Red Cell 16.7 H Distribution Width Platelet Count 212 Mean Platelet Volume 10.6 H Immature 0.600 H Granulocytes % Neutrophils % 73.6 Lymphocytes % 9.9 L Monocytes % 12.3 H Eosinophils % 2.9 Basophils % 0.7 Nucleated Red Blood 0.0 Cells % Immature 0.060 H Granulocytes # Neutrophils # 7.6 H Lymphocytes # 1.0 Monocytes # 1.3 H Eosinophils # 0.3 Basophils # 0.1 Nucleated Red Blood 0.0 Cells # Sodium Level 137 Potassium Level 4.6 Chloride Level 98 Carbon Dioxide Level 27 Anion Gap 12 Blood Urea Nitrogen 25 H Creatinine 6.63 H Glucose Level 79 Calcium Level 8.2 L Phosphorus Level 6.0 H Magnesium Level 1.9 Albumin 2.8 L Test 08/09/18 12:16 Bedside Glucose [address] scan Medications Medication Current Medications IV Flush (NS 3 ml) 3 ml PER PROTOCOL IV ; Start 08/02/18 at 13:00 Ondansetron HCl (Zofran Inj) 4 mg Q6H PRN IV NAUSEA/VOMITING; Start 08/02/18 at 13:00 Acetaminophen (Tylenol Tab) 650 mg Q6H PRN PO .PAIN 1-3 OR TEMP Last administered on 08/06/18at 12:57; Admin Dose 650 MG; Start 08/02/18 at 13:00 Acetaminophen/ Hydrocodone Bitart ([place] (5/325)) 1 tab Q6H PRN PO .MOD PAIN 4- 6; Start 08/02/18 at 13:00 Docusate Sodium (Colace) 100 mg Q12H PRN PO .CONSTIPATION; Start 08/02/18 at 13:00 Magnesium Hydroxide (Milk Of Mag) 30 ml DAILY PRN PO .CONSTIPATION; Start 08/02/18 at 13:00 Zolpidem Tartrate (Ambien) 5 mg QHS PRN PO .INSOMNIA; Start 08/02/18 at 13:00 Famotidine (Pepcid) 20 mg DAILY PO Last administered on 08/09/18at 08:02; Admin Dose 20 MG; Start 08/02/18 at 21:00 Diagnostic Test (Pha) (Accu-Chek) 1 ea 02 XX Last administered on 08/08/18at 02:36; Admin Dose 1 EA; Start 08/03/18 at 02:00 Insulin Aspart (Novolog Insulin Pen) NOVOLOG *MILD* ALGORITHM WITH MEALS BEDTIME SC Last administered on 08/08/18at 12:47; Admin Dose 2 UNIT; Start 08/02/18 at 18:00 Miscellaneous Information 1 ea NOTE XX ; Start 08/02/18 at 13:30 Glucose (Glutose) 15 gm Q15M PRN PO DECREASED GLUCOSE; Start 08/02/18 at 13:30 Glucose (Glutose) 22.5 gm Q15M PRN PO DECREASED GLUCOSE; Start 08/02/18 at 13:30 Dextrose (D50w Syringe) 25 ml Q15M PRN IV DECREASED GLUCOSE; Start 08/02/18 at 13:30 Dextrose (D50w Syringe) 50 ml Q15M PRN IV DECREASED GLUCOSE; Start 08/02/18 at 13:30 Glucagon (Glucagen) 1 mg Q15M PRN IM DECREASED GLUCOSE; Start 08/02/18 at 13:30 Glucose (Glutose) 15 gm Q15M PRN BUCCAL DECREASED GLUCOSE; Start 08/02/18 at 13:30 Cholecalciferol (Vitamin D) 1,000 unit DAILY PO Last administered on 08/09/18at 08:02; Admin Dose 1,000 UNIT; Start 08/03/18 at 09:00 Folic Acid (Folic Acid) 1 mg DAILY PO Last administered on 08/09/18at 08:01; Admin Dose 1 MG; Start 08/03/18 at 09:00 Levothyroxine Sodium (Synthroid) 50 mcg BEFORE BREAKFAST PO Last administered on 08/09/18at 06:17; Admin Dose 50 MCG; Start 08/03/18 at 07:00 Nortriptyline HCl (Aventyl) 10 mg TID PO Last administered on 08/09/18 13:55; Admin Dose 10 MG; Start 08/02/18 at 21:00 Sevelamer Carbonate (Renvela) 0.8 gm AC MEALS PO Last administered on 08/09/18 13:45; Admin Dose 0.8 GM; Start 08/02/18 at 17:30 Midodrine (Proamatine) 5 mg ON DIALYSIS DAYS PO Last administered on 2/20/19at 09:54; Admin Dose 5 MG; Start 08/02/18 at 18:00 Insulin Glargine (Lantus) 15 units DAILY@0800 SC Last administered on 08/09/18 09:14; Admin Dose 15 UNITS; Start 08/03/18 at 12:00 Morphine Sulfate (morphine) 6 mg Q4H PRN PO SEVERE PAIN LEVEL 7-10; Start 08/06/18 at 23:30 Albumin Human 100 ml @ 100 mls/hr WITH DIALYSIS PRN IV SBP <90 DURING DIALYSIS; Start 08/07/18 at 10:00 Gabapentin (Neurontin) 100 mg DAILY PO Last administered on 08/09/18 08:01; Admin Dose 100 MG; Start 08/07/18 at 11:30 Phenol (Cepastat Lozenge) 1 lozenge Q1H PRN MT COUGH Last administered on 08/08/18 02:34; Admin Dose 1 LOZENGE; Start 08/07/18 at 23:00 GONZÁLEZ MERIDA MD Aug 09, 2018 17:30
[2018-08-09] MEDS: MIDODRINE 5 MG TAB PO SCH (20:09)
[2018-08-09] MEDS: ALBUMIN HUMAN 25% 100 ML IV PRN (20:22)
[2018-08-10] VITALS (13 sets, daily range): BP systolic 90–163; BP diastolic 48–106; PULSE 91–113; RESP 17–20
[2018-08-10] MEDS: ACCU-CHEK XX SCH (02:00)
[2018-08-10] MEDS: LEVOTHYROXINE 50 MCG TAB PO SCH (07:07)
[2018-08-10] MEDS: INSULIN ASPART [NOVOLOG] 3 ML PEN SC SCH ×4 (07:55→20:36)
[2018-08-10] MEDS: SEVELAMER CARBONATE 0.8 GM PKT PO SCH ×3 (07:58→17:38)
[2018-08-10] MEDS: INSULIN GLARGINE [LANTus] (100 UNITS/ML) SYG SC SCH (08:02)
[2018-08-10] MEDS: GABAPENTIN 100 MG CAP PO SCH (08:06)
[2018-08-10] MEDS: FOLIC ACID 1 MG TAB PO SCH (08:06)
[2018-08-10] MEDS: CHOLECALCIFEROL 1,000 UNIT TAB PO SCH (08:06)
[2018-08-10] MEDS: FAMOTIDINE 20 MG TAB PO SCH (08:06)
[2018-08-10] MEDS: NORTRIPTYLINE 10 MG CAP PO SCH ×3 (08:12→20:32)
--- NOTE | 2018-08-10 09:51 | PN ---
Date/Time of Note Date/Time of Note DATE: 08/10/18 TIME: 09:51 Assessment/Plan VTE Prophylaxis Risk score (from Nsg)>0 risk: 11 SCD applied (from Nsg): Yes Pharmacological prophylaxis: heparin Lines/Catheters IV Catheter Type (from Nrsg): Mid Line Urinary Cath still in place: No Assessment/Plan Assessment/Plan 1. Colonic mass at the splenic flexure and ascending colon - Discussed finding with Dr. Meneses, colorectal surgeon, who will coordinate surgical intervention with the team. Requesting ICU bed as well following intervention. Appreciate consultation and recommendations. Will need PPM reprogrammed per Cardiology and schedule HD accordingly per Nephrology - GI on board and appreciate recommendations. 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 Cam on board and appreciate recommendations. - Cardiology consultation appreciated and medically optimized for surgical intervention. 2. End-stage renal disease on HD - Nephrology on board for HD management and appreciate recommendations 3. Diabetes - A1c noted - counseled about importance of diet choices and glucose control - Continue Lantus and ISS 4. Esophagitis - Continue PPI 5. Hypothyroidism - Continue home Synthroid 6. Persistent cough - improvement with Gabapentin 7. Nonischemic CM - pacer in place - Chronic per outpatient Surgery Nurse 8. Mild acute on chronic systolic HF - fluid removal during HD 9. Disposition - Continue current treatment. Will need to coordinate HD and PPM reprogramming based on when surgery is planned. Patient is optimized from a cardiology standpoint for surgical intervention Result Diagram: 08/10/18 0556 08/10/18 0556 Results 24hrs Laboratory Tests Test 08/09/18 12:16 08/09/18 17:24 08/09/18 21:38 08/10/18 05:56 Bedside Glucose 113 164 107 White Blood Count 8.5 Red Blood Count 3.09 L Hemoglobin 9.7 L Hematocrit 30.9 L Mean Corpuscular 100.0 Volume Mean Corpuscular 31.4 Hemoglobin Mean Corpuscular 31.4 L Hemoglobin Concent Red Cell 16.7 H Distribution Width Platelet Count 162 # Mean Platelet Volume 11.0 H Immature 0.400 Granulocytes % Neutrophils % 70.3 Lymphocytes % 12.0 L Monocytes % 12.0 H Eosinophils % 4.4 Basophils % 0.9 Nucleated Red Blood 0.0 Cells % Immature 0.030 Granulocytes # Neutrophils # 6.0 Lymphocytes # 1.0 Monocytes # 1.0 H Eosinophils # 0.4 Basophils # 0.1 Nucleated Red Blood 0.0 Cells # Sodium Level 139 Potassium Level 3.9 Chloride Level 98 Carbon Dioxide Level 33 H Anion Gap 8 Blood Urea Nitrogen 18 Creatinine 4.99 #H Glucose Level 77 Calcium Level 8.1 L Phosphorus Level 4.7 Magnesium Level 1.8 Albumin 2.8 L Test 08/10/18 07:59 Bedside Glucose 82 Subjective 24 Hr Interval Summary Free Text/Dictation Patient states he was feeling weak the past couple days but today feeling better in the am after breakfast. Denies any new issues. Exam/Review of Systems Exam Vitals Vital Signs Date Temp Pulse Resp B/P (MAP) Pulse Ox O2 O2 Flow FiO2 Time Delivery Rate 08/10/18 98.0 91 20 115/48 94 Room Air 08:20 (70) 08/06/18 3.0 17:57 Intake and Output 08/09/18 08/09/18 08/10/18 1515:00 23:00 07:00 IntakeIntake Total 720 ml 400 ml OutputOutput Total 2200 ml BalanceBalance -1480 ml 400 ml Exam General: Patient is a pleasant male, no acute distress Neck: Supple Chest: Nontender Lungs: Clear to auscultation bilaterally no crackles rales or wheezing Heart: Normal S1-S2, Regular rate and rhythm. no murmurs Abdomen: Soft , nontender, nondistended , bowel sounds are present. No guarding no rebound tenderness , No masses or organomegaly. Extremities: Swelling of LUE Results Results 24hrs Laboratory Tests Test 08/09/18 12:16 08/09/18 17:24 08/09/18 21:38 08/10/18 05:56 Bedside Glucose 113 164 107 White Blood Count 8.5 Red Blood Count 3.09 L Hemoglobin 9.7 L Hematocrit 30.9 L Mean Corpuscular 100.0 Volume Mean Corpuscular 31.4 Hemoglobin Mean Corpuscular 31.4 L Hemoglobin Concent Red Cell 16.7 H Distribution Width Platelet Count 162 # Mean Platelet Volume 11.0 H Immature 0.400 Granulocytes % Neutrophils % 70.3 Lymphocytes % 12.0 L Monocytes % 12.0 H Eosinophils % 4.4 Basophils % 0.9 Nucleated Red Blood 0.0 Cells % Immature 0.030 Granulocytes # Neutrophils # 6.0 Lymphocytes # 1.0 Monocytes # 1.0 H Eosinophils # 0.4 Basophils # 0.1 Nucleated Red Blood 0.0 Cells # Sodium Level 139 Potassium Level 3.9 Chloride Level 98 Carbon Dioxide Level 33 H Anion Gap 8 Blood Urea Nitrogen 18 Creatinine 4.99 #H Glucose Level 77 Calcium Level 8.1 L Phosphorus Level 4.7 Magnesium Level 1.8 Albumin 2.8 L Test 08/10/18 07:59 Bedside Glucose 82 Medications Medication Current Medications IV Flush (NS 3 ml) 3 ml PER PROTOCOL IV ; Start 08/02/18 at 13:00 Ondansetron HCl (Zofran Inj) 4 mg Q6H PRN IV NAUSEA/VOMITING; Start 08/02/18 at 13:00 Acetaminophen (Tylenol Tab) 650 mg Q6H PRN PO .PAIN 1-3 OR TEMP Last administered on 08/06/18at 12:57; Admin Dose 650 MG; Start 08/02/18 at 13:00 Acetaminophen/ Hydrocodone Bitart ([place] (5/325)) 1 tab Q6H PRN PO .MOD PAIN 4- 6; Start 08/02/18 at 13:00 Docusate Sodium (Colace) 100 mg Q12H PRN PO .CONSTIPATION; Start 08/02/18 at 13:00 Magnesium Hydroxide (Milk Of Mag) 30 ml DAILY PRN PO .CONSTIPATION; Start 08/02/18 at 13:00 Zolpidem Tartrate (Ambien) 5 mg QHS PRN PO .INSOMNIA; Start 08/02/18 at 13:00 Famotidine (Pepcid) 20 mg DAILY PO Last administered on 08/10/18at 08:06; Admin Dose 20 MG; Start 08/02/18 at 21:00 Diagnostic Test (Pha) (Accu-Chek) 1 ea 02 XX Last administered on 08/08/18at 02:36; Admin Dose 1 EA; Start 08/03/18 at 02:00 Insulin Aspart (Novolog Insulin Pen) NOVOLOG *MILD* ALGORITHM WITH MEALS BEDTIME SC Last administered on 08/09/18at 17:31; Admin Dose 1 UNIT; Start 08/02/18 at 18:00 Miscellaneous Information 1 ea NOTE XX ; Start 08/02/18 at 13:30 Glucose (Glutose) 15 gm Q15M PRN PO DECREASED GLUCOSE; Start 08/02/18 at 13:30 Glucose (Glutose) 22.5 gm Q15M PRN PO DECREASED GLUCOSE; Start 08/02/18 at 13:30 Dextrose (D50w Syringe) 25 ml Q15M PRN IV DECREASED GLUCOSE; Start 08/02/18 at 13:30 Dextrose (D50w Syringe) 50 ml Q15M PRN IV DECREASED GLUCOSE; Start 08/02/18 at 13:30 Glucagon (Glucagen) 1 mg Q15M PRN IM DECREASED GLUCOSE; Start 08/02/18 at 13:30 Glucose (Glutose) 15 gm Q15M PRN BUCCAL DECREASED GLUCOSE; Start 08/02/18 at 13:30 Cholecalciferol (Vitamin D) 1,000 unit DAILY PO Last administered on 08/10/18 08:06; Admin Dose 1,000 UNIT; Start 08/03/18 at 09:00 Folic Acid (Folic Acid) 1 mg DAILY PO Last administered on 08/10/18 08:06; Admin Dose 1 MG; Start 08/03/18 at 09:00 Levothyroxine Sodium (Synthroid) 50 mcg BEFORE BREAKFAST PO Last administered on 08/10/18 07:07; Admin Dose 50 MCG; Start 08/03/18 at 07:00 Nortriptyline HCl (Aventyl) 10 mg TID PO Last administered on 08/10/18 08:12; Admin Dose 10 MG; Start 08/02/18 at 21:00 Sevelamer Carbonate (Renvela) 0.8 gm AC MEALS PO Last administered on 08/10/18 07:58; Admin Dose 0.8 GM; Start 08/02/18 at 17:30 Midodrine (Proamatine) 5 mg ON DIALYSIS DAYS PO Last administered on 08/09/18 20:09; Admin Dose 5 MG; Start 08/02/18 at 18:00 Insulin Glargine (Lantus) 15 units DAILY@0800 SC Last administered on 08/10/18at 08:02; Admin Dose 15 UNITS; Start 08/03/18 at 12:00 Morphine Sulfate (morphine) 6 mg Q4H PRN PO SEVERE PAIN LEVEL 7-10; Start 08/06/18 at 23:30 Albumin Human 100 ml @ 100 mls/hr WITH DIALYSIS PRN IV SBP <90 DURING DIALYSIS Last administered on 08/09/18at 20:22; Admin Dose 100 MLS/HR; Start 08/07/18 at 10:00 Gabapentin (Neurontin) 100 mg DAILY PO Last administered on 08/10/18at 08:06; Admin Dose 100 MG; Start 08/07/18 at 11:30 Phenol (Cepastat Lozenge) 1 lozenge Q1H PRN MT COUGH Last administered on 08/08/18at 02:34; Admin Dose 1 LOZENGE; Start 08/07/18 at 23:00 JO HURST MD Aug 10, 2018 09:51
--- NOTE | 2018-08-10 12:41 | CONS ---
Assessment/Plan Assessment/Plan Hospital Course (Demo Recall) 1. End-stage renal disease, on hemodialysis, TueTHSAt. Hyperkalemia. 2. 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 Hypotension. 4. History of congestive heart failure. 5. Hypercholesterolemia. 6. Total hip replacement. 7. Leukocytosis. 8. Hypoglycemia. 9. Macrocytic hypochromic Anemia mixed etiology, recent blood loss and 2/2 kidney disease 10. Hypothyroidism Assessment/Plan (Daily) - C/W HD,MWF -Hemicolectomy per surgery, date is unknown will have to coordinate with dial ysis days -Midodrine on dialysis days for hypotension - pt has cardiac clearance. -Renally Dose all meds -Avoid nephrotoxic agents. Consultation Date/Type/Reason Admit Date/Time Aug 02, 2018 at 10:57 Initial Consult Date 08/02/18 Type of Consult nephrology Requesting Provider: JO HURST MD Date/Time of Note DATE: 08/10/18 TIME: 12:40 24 HR Interval Summary Constitutional: no complaints Exam/Review of Systems Exam Vitals Vital Signs Date Temp Pulse Resp B/P (MAP) Pulse Ox O2 O2 Flow FiO2 Time Delivery Rate 08/10/18 98.0 95 20 163/106 97 Room Air 12:12 (125) 08/06/18 3.0 17:57 Intake and Output 08/09/18 08/09/18 08/10/18 1515:00 23:00 07:00 IntakeIntake Total 720 ml 400 ml OutputOutput Total 2200 ml BalanceBalance -1480 ml 400 ml Exam LEFT ARM hERO av FISTULA Constitutional: alert, oriented Respiratory: clear to auscultation Cardiovascular: regular rate and rhythm Gastrointestinal: soft, rebound or guarding Results Result Diagram: 08/10/18 0556 08/10/18 0556 Results 24hrs Laboratory Tests Test 08/09/18 17:24 08/09/18 21:38 08/10/18 05:56 08/10/18 07:59 Bedside Glucose 164 107 82 White Blood Count 8.5 Red Blood Count 3.09 L Hemoglobin 9.7 L Hematocrit 30.9 L Mean Corpuscular 100.0 Volume Mean Corpuscular 31.4 Hemoglobin Mean Corpuscular 31.4 L Hemoglobin Concent Red Cell 16.7 H Distribution Width Platelet Count 162 # Mean Platelet Volume 11.0 H Immature 0.400 Granulocytes % Neutrophils % 70.3 Lymphocytes % 12.0 L Monocytes % 12.0 H Eosinophils % 4.4 Basophils % 0.9 Nucleated Red Blood 0.0 Cells % Immature 0.030 Granulocytes # Neutrophils # 6.0 Lymphocytes # 1.0 Monocytes # 1.0 H Eosinophils # 0.4 Basophils # 0.1 Nucleated Red Blood 0.0 Cells # Sodium Level 139 Potassium Level 3.9 Chloride Level 98 Carbon Dioxide Level 33 H Anion Gap 8 Blood Urea Nitrogen 18 Creatinine 4.99 #H Glucose Level 77 Calcium Level 8.1 L Phosphorus Level 4.7 Magnesium Level 1.8 Albumin 2.8 L Test 08/10/18 11:12 Bedside Glucose 158 Medications Medication Current Medications IV Flush (NS 3 ml) 3 ml PER PROTOCOL IV ; Start 08/02/18 at 13:00 Ondansetron HCl (Zofran Inj) 4 mg Q6H PRN IV NAUSEA/VOMITING; Start 08/02/18 at 13:00 Acetaminophen (Tylenol Tab) 650 mg Q6H PRN PO .PAIN 1-3 OR TEMP Last administered on 08/06/18at 12:57; Admin Dose 650 MG; Start 08/02/18 at 13:00 Acetaminophen/ Hydrocodone Bitart ([place] (5/325)) 1 tab Q6H PRN PO .MOD PAIN 4- 6; Start 08/02/18 at 13:00 Docusate Sodium (Colace) 100 mg Q12H PRN PO .CONSTIPATION; Start 08/02/18 at 13:00 Magnesium Hydroxide (Milk Of Mag) 30 ml DAILY PRN PO .CONSTIPATION; Start 08/02/18 at 13:00 Zolpidem Tartrate (Ambien) 5 mg QHS PRN PO .INSOMNIA; Start 08/02/18 at 13:00 Famotidine (Pepcid) 20 mg DAILY PO Last administered on 08/10/18at 08:06; Admin Dose 20 MG; Start 08/02/18 at 21:00 Diagnostic Test (Pha) (Accu-Chek) 1 ea 02 XX Last administered on 08/08/18at 02:36; Admin Dose 1 EA; Start 08/03/18 at 02:00 Insulin Aspart (Novolog Insulin Pen) NOVOLOG *MILD* ALGORITHM WITH MEALS BEDTIME SC Last administered on 08/10/18 11:48; Admin Dose 1 UNIT; Start 08/02/18 at 18:00 Miscellaneous Information 1 ea NOTE XX ; Start 08/02/18 at 13:30 Glucose (Glutose) 15 gm Q15M PRN PO DECREASED GLUCOSE; Start 08/02/18 at 13:30 Glucose (Glutose) 22.5 gm Q15M PRN PO DECREASED GLUCOSE; Start 08/02/18 at 13:30 Dextrose (D50w Syringe) 25 ml Q15M PRN IV DECREASED GLUCOSE; Start 08/02/18 at 13:30 Dextrose (D50w Syringe) 50 ml Q15M PRN IV DECREASED GLUCOSE; Start 08/02/18 at 13:30 Glucagon (Glucagen) 1 mg Q15M PRN IM DECREASED GLUCOSE; Start 08/02/18 at 13:30 Glucose (Glutose) 15 gm Q15M PRN BUCCAL DECREASED GLUCOSE; Start 08/02/18 at 13:30 Cholecalciferol (Vitamin D) 1,000 unit DAILY PO Last administered on 08/10/18 08:06; Admin Dose 1,000 UNIT; Start 08/03/18 at 09:00 Folic Acid (Folic Acid) 1 mg DAILY PO Last administered on 08/10/18 08:06; Admin Dose 1 MG; Start 08/03/18 at 09:00 Levothyroxine Sodium (Synthroid) 50 mcg BEFORE BREAKFAST PO Last administered on 08/10/18 07:07; Admin Dose 50 MCG; Start 08/03/18 at 07:00 Nortriptyline HCl (Aventyl) 10 mg TID PO Last administered on 08/10/18 12:36; Admin Dose 10 MG; Start 08/02/18 at 21:00 Sevelamer Carbonate (Renvela) 0.8 gm AC MEALS PO Last administered on 08/10/18 11:13; Admin Dose 0.8 GM; Start 08/02/18 at 17:30 Midodrine (Proamatine) 5 mg ON DIALYSIS DAYS PO Last administered on 08/09/18 20:09; Admin Dose 5 MG; Start 08/02/18 at 18:00 Insulin Glargine (Lantus) 15 units DAILY@0800 SC Last administered on 08/10/18 08:02; Admin Dose 15 UNITS; Start 08/03/18 at 12:00 Morphine Sulfate (morphine) 6 mg Q4H PRN PO SEVERE PAIN LEVEL 7-10; Start 08/06/18 at 23:30 Albumin Human 100 ml @ 100 mls/hr WITH DIALYSIS PRN IV SBP <90 DURING DIALYSIS Last administered on 08/09/18at 20:22; Admin Dose 100 MLS/HR; Start 08/07/18 at 10:00 Gabapentin (Neurontin) 100 mg DAILY PO Last administered on 08/10/18at 08:06; Admin Dose 100 MG; Start 08/07/18 at 11:30 Phenol (Cepastat Lozenge) 1 lozenge Q1H PRN MT COUGH Last administered on 08/08/18at 02:34; Admin Dose 1 LOZENGE; Start 08/07/18 at 23:00 TU CARTER Aug 10, 2018 12:41
--- NOTE | 2018-08-10 13:39 | CONS ---
Assessment/Plan Assessment/Plan Hospital Course (Demo Recall) Pre-operative evaluation: The pt is to undergo intermediate risk surgery. He is not very active at baseline so functional capacity is difficult to determine. However no chest pain and no CAD. Euvolemic now. 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 He is at high risk for surgery but not prohibitive. Acute on chronic systolic CHF: euvolemic Non-ischemic Cardiomyopathy PPM: [email or web address] 05/04. For ?complete heart block as 100% v paced Pulm HTN: PAP 60s by echo Mild-moderate aortic stenosis Colon cancer: being evaluated for colectomy ESRD on HD -currently optimized for surgery -if surgery is planned, he will need the PPM reprogrammed or a magnet placed as he is pacer dependent -would like to initiate coreg on non dialysis days but if surgery is to be scheduled soon, would not want to initiate negative inotrope until after -HD per nephrology for volume management Consultation Date/Type/Reason Admit Date/Time Aug 02, 2018 at 10:57 Initial Consult Date 08/08/18 Type of Consult Cardiology Requesting Provider: JO HURST MD Date/Time of Note DATE: 08/10/18 TIME: 13:38 24 HR Interval Summary Free Text/Dictation No events. Seen by colorectal surgeon with plans for surgery at [facility]. No compl aints Exam/Review of Systems Exam Vitals Vital Signs Date Temp Pulse Resp B/P (MAP) Pulse Ox O2 O2 Flow FiO2 Time Delivery Rate 08/10/18 93 18 90/52 (65) 95 12:40 08/10/18 98.0 Room Air 12:12 08/06/18 3.0 17:57 Intake and Output 08/09/18 08/09/18 08/10/18 1515:00 23:00 07:00 IntakeIntake Total 720 ml 400 ml OutputOutput Total 2200 ml BalanceBalance -1480 ml 400 ml Constitutional: alert, oriented Psych: no complaints Neck: No jvd Respiratory: diminished breath sounds; No clear to auscultation Cardiovascular: regular rate and rhythm; No edema Gastrointestinal: soft, non-tender Neurological: nl mental status, nl speech Results Result Diagram: 08/10/18 0556 08/10/18 0556 Results 24hrs Laboratory Tests Test 08/09/18 17:24 08/09/18 21:38 08/10/18 05:56 08/10/18 07:59 Bedside Glucose 164 107 82 White Blood Count 8.5 Red Blood Count 3.09 L Hemoglobin 9.7 L Hematocrit 30.9 L Mean Corpuscular 100.0 Volume Mean Corpuscular 31.4 Hemoglobin Mean Corpuscular 31.4 L Hemoglobin Concent Red Cell 16.7 H Distribution Width Platelet Count 162 # Mean Platelet Volume 11.0 H Immature 0.400 Granulocytes % Neutrophils % 70.3 Lymphocytes % 12.0 L Monocytes % 12.0 H Eosinophils % 4.4 Basophils % 0.9 Nucleated Red Blood 0.0 Cells % Immature 0.030 Granulocytes # Neutrophils # 6.0 Lymphocytes # 1.0 Monocytes # 1.0 H Eosinophils # 0.4 Basophils # 0.1 Nucleated Red Blood 0.0 Cells # Sodium Level 139 Potassium Level 3.9 Chloride Level 98 Carbon Dioxide Level 33 H Anion Gap 8 Blood Urea Nitrogen 18 Creatinine 4.99 #H Glucose Level 77 Calcium Level 8.1 L Phosphorus Level 4.7 Magnesium Level 1.8 Albumin 2.8 L Test 08/10/18 11:12 Bedside Glucose 158 Medications Medication Current Medications IV Flush (NS 3 ml) 3 ml PER PROTOCOL IV ; Start 08/02/18 at 13:00 Ondansetron HCl (Zofran Inj) 4 mg Q6H PRN IV NAUSEA/VOMITING; Start 08/02/18 at 13:00 Acetaminophen (Tylenol Tab) 650 mg Q6H PRN PO .PAIN 1-3 OR TEMP Last administered on 08/06/18at 12:57; Admin Dose 650 MG; Start 08/02/18 at 13:00 Acetaminophen/ Hydrocodone Bitart ([place] (5/325)) 1 tab Q6H PRN PO .MOD PAIN 4- 6; Start 08/02/18 at 13:00 Docusate Sodium (Colace) 100 mg Q12H PRN PO .CONSTIPATION; Start 08/02/18 at 13:00 Magnesium Hydroxide (Milk Of Mag) 30 ml DAILY PRN PO .CONSTIPATION; Start 08/02/18 at 13:00 Zolpidem Tartrate (Ambien) 5 mg QHS PRN PO .INSOMNIA; Start 08/02/18 at 13:00 Famotidine (Pepcid) 20 mg DAILY PO Last administered on 08/10/18at 08:06; Admin Dose 20 MG; Start 08/02/18 at 21:00 Diagnostic Test (Pha) (Accu-Chek) 1 ea 02 XX Last administered on 08/08/18 02:36; Admin Dose 1 EA; Start 08/03/18 at 02:00 Insulin Aspart (Novolog Insulin Pen) NOVOLOG *MILD* ALGORITHM WITH MEALS BEDTIME SC Last administered on 08/10/18 11:48; Admin Dose 1 UNIT; Start 08/02/18 at 18:00 Miscellaneous Information 1 ea NOTE XX ; Start 08/02/18 at 13:30 Glucose (Glutose) 15 gm Q15M PRN PO DECREASED GLUCOSE; Start 08/02/18 at 13:30 Glucose (Glutose) 22.5 gm Q15M PRN PO DECREASED GLUCOSE; Start 08/02/18 at 13:30 Dextrose (D50w Syringe) 25 ml Q15M PRN IV DECREASED GLUCOSE; Start 08/02/18 at 13:30 Dextrose (D50w Syringe) 50 ml Q15M PRN IV DECREASED GLUCOSE; Start 08/02/18 at 13:30 Glucagon (Glucagen) 1 mg Q15M PRN IM DECREASED GLUCOSE; Start 08/02/18 at 13:30 Glucose (Glutose) 15 gm Q15M PRN BUCCAL DECREASED GLUCOSE; Start 08/02/18 at 13:30 Cholecalciferol (Vitamin D) 1,000 unit DAILY PO Last administered on 08/10/18 08:06; Admin Dose 1,000 UNIT; Start 08/03/18 at 09:00 Folic Acid (Folic Acid) 1 mg DAILY PO Last administered on 08/10/18 08:06; Admin Dose 1 MG; Start 08/03/18 at 09:00 Levothyroxine Sodium (Synthroid) 50 mcg BEFORE BREAKFAST PO Last administered on 08/10/18 07:07; Admin Dose 50 MCG; Start 08/03/18 at 07:00 Nortriptyline HCl (Aventyl) 10 mg TID PO Last administered on 08/10/18 12:36; Admin Dose 10 MG; Start 08/02/18 at 21:00 Sevelamer Carbonate (Renvela) 0.8 gm AC MEALS PO Last administered on 08/10/18 11:13; Admin Dose 0.8 GM; Start 08/02/18 at 17:30 Midodrine (Proamatine) 5 mg ON DIALYSIS DAYS PO Last administered on 08/09/18 20:09; Admin Dose 5 MG; Start 08/02/18 at 18:00 Insulin Glargine (Lantus) 15 units DAILY@0800 SC Last administered on 08/10/18 08:02; Admin Dose 15 UNITS; Start 08/03/18 at 12:00 Morphine Sulfate (morphine) 6 mg Q4H PRN PO SEVERE PAIN LEVEL 7-10; Start 08/06/18 at 23:30 Albumin Human 100 ml @ 100 mls/hr WITH DIALYSIS PRN IV SBP <90 DURING DIALYSIS Last administered on 08/09/18 20:22; Admin Dose 100 MLS/HR; Start 08/07/18 at 10:00 Gabapentin (Neurontin) 100 mg DAILY PO Last administered on 08/10/18at 08:06; Admin Dose 100 MG; Start 08/07/18 at 11:30 Phenol (Cepastat Lozenge) 1 lozenge Q1H PRN MT COUGH Last administered on 08/08/18at 02:34; Admin Dose 1 LOZENGE; Start 08/07/18 at 23:00 LUCRETIA QUEEN Aug 10, 2018 13:39
--- NOTE | 2018-08-10 13:50 | CONS ---
Assessment/Plan Assessment/Plan Assessment/Plan (Daily) #Colon ca -per bx patient appears to have 2 separate masses with different pathology results. 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 -CT does not reveal evidence of distant mets -pt needs a hemicolectomy to remove the masses and to more fully evaluate the pathologic specimens and determine what kind of cancer it is -if he is too high risk to have surgery at [facility], pt will need to be transferred for higher level of care -further recommendations for chemotherapy will be based on the surgical pathology results #ESRD -continue HD per renal #Diabetes - A1c noted - Continue Lantus and ISS #Hypothyroidism - Continue Synthroid #Nonischemic CM - pacer in place - nonchronic # Anemia- Hgb 9.7 - monitor CBC Patient seen in collaboration with Dr Hodges Consultation Date/Type/Reason Admit Date/Time Aug 02, 2018 at 10:57 am Initial Consult Date 08/09/18 Type of Consult ONCOLOGY Reason for Consultation COLON CANCER Requesting Provider: JO HURST MD Date/Time of Note DATE: 08/10/18 TIME: 13:48 24 HR Interval Summary Free Text/Dictation feeling better; more energetic than yesterday - no new issues reported last night Detailed Summary Eyes: no complaints ENT: no complaints Respiratory: no complaints Cardiovascular: no complaints Gastrointestinal: no complaints Genitourinary: no complaints Musculoskeletal: no complaints Skin: no complaints Neurologic: no complaints Endocrine: no complaints Exam/Review of Systems Exam Vitals Vital Signs Date Temp Pulse Resp B/P (MAP) Pulse Ox O2 O2 Flow FiO2 Time Delivery Rate 08/10/18 93 18 90/52 (65) 95 12:40 08/10/18 98.0 Room Air 12:12 08/06/18 3.0 17:57 Intake and Output 08/09/18 08/09/18 08/10/18 1515:00 23:00 07:00 IntakeIntake Total 720 ml 400 ml OutputOutput Total 2200 ml BalanceBalance -1480 ml 400 ml Constitutional: alert, well developed Psych: nl mood/affect Head: normocephalic Eyes: EOMI, nl lids, nl sclera ENMT: nl external ears & nose Neck: non-tender Respiratory: clear to auscultation (bilatrally) Cardiovascular: nl pulses, other (s1s2) Gastrointestinal: soft, non-tender Musculoskeletal: nl extremities to inspection Extremities: edema (LUE) Neurological: nl speech, other (alet/responsive) Skin: nl turgor Lymph: nontender Results Result Diagram: 08/10/18 0556 08/10/18 0556 Results 24hrs Laboratory Tests Test 08/09/18 17:24 08/09/18 21:38 08/10/18 05:56 08/10/18 07:59 Bedside Glucose 164 107 82 White Blood Count 8.5 Red Blood Count 3.09 L Hemoglobin 9.7 L Hematocrit 30.9 L Mean Corpuscular 100.0 Volume Mean Corpuscular 31.4 Hemoglobin Mean Corpuscular 31.4 L Hemoglobin Concent Red Cell 16.7 H Distribution Width Platelet Count 162 # Mean Platelet Volume 11.0 H Immature 0.400 Granulocytes % Neutrophils % 70.3 Lymphocytes % 12.0 L Monocytes % 12.0 H Eosinophils % 4.4 Basophils % 0.9 Nucleated Red Blood 0.0 Cells % Immature 0.030 Granulocytes # Neutrophils # 6.0 Lymphocytes # 1.0 Monocytes # 1.0 H Eosinophils # 0.4 Basophils # 0.1 Nucleated Red Blood 0.0 Cells # Sodium Level 139 Potassium Level 3.9 Chloride Level 98 Carbon Dioxide Level 33 H Anion Gap 8 Blood Urea Nitrogen 18 Creatinine 4.99 #H Glucose Level 77 Calcium Level 8.1 L Phosphorus Level 4.7 Magnesium Level 1.8 Albumin 2.8 L Test 08/10/18 11:12 Bedside Glucose 158 Medications Medication Current Medications IV Flush (NS 3 ml) 3 ml PER PROTOCOL IV ; Start 08/02/18 at 13:00 Ondansetron HCl (Zofran Inj) 4 mg Q6H PRN IV NAUSEA/VOMITING; Start 08/02/18 at 13:00 Acetaminophen (Tylenol Tab) 650 mg Q6H PRN PO .PAIN 1-3 OR TEMP Last administered on 08/06/18at 12:57; Admin Dose 650 MG; Start 08/02/18 at 13:00 Acetaminophen/ Hydrocodone Bitart ([place] (5/325)) 1 tab Q6H PRN PO .MOD PAIN 4- 6; Start 08/02/18 at 13:00 Docusate Sodium (Colace) 100 mg Q12H PRN PO .CONSTIPATION; Start 08/02/18 at 13:00 Magnesium Hydroxide (Milk Of Mag) 30 ml DAILY PRN PO .CONSTIPATION; Start 08/02/18 at 13:00 Zolpidem Tartrate (Ambien) 5 mg QHS PRN PO .INSOMNIA; Start 08/02/18 at 13:00 Famotidine (Pepcid) 20 mg DAILY PO Last administered on 08/10/18 08:06; Admin Dose 20 MG; Start 08/02/18 at 21:00 Diagnostic Test (Pha) (Accu-Chek) 1 ea 02 XX Last administered on 08/08/18at 02:36; Admin Dose 1 EA; Start 08/03/18 at 02:00 Insulin Aspart (Novolog Insulin Pen) NOVOLOG *MILD* ALGORITHM WITH MEALS BEDTIME SC Last administered on 08/10/18at 11:48; Admin Dose 1 UNIT; Start 08/02/18 at 18:00 Miscellaneous Information 1 ea NOTE XX ; Start 08/02/18 at 13:30 Glucose (Glutose) 15 gm Q15M PRN PO DECREASED GLUCOSE; Start 08/02/18 at 13:30 Glucose (Glutose) 22.5 gm Q15M PRN PO DECREASED GLUCOSE; Start 08/02/18 at 13:30 Dextrose (D50w Syringe) 25 ml Q15M PRN IV DECREASED GLUCOSE; Start 08/02/18 at 13:30 Dextrose (D50w Syringe) 50 ml Q15M PRN IV DECREASED GLUCOSE; Start 08/02/18 at 13:30 Glucagon (Glucagen) 1 mg Q15M PRN IM DECREASED GLUCOSE; Start 08/02/18 at 13:30 Glucose (Glutose) 15 gm Q15M PRN BUCCAL DECREASED GLUCOSE; Start 08/02/18 at 13:30 Cholecalciferol (Vitamin D) 1,000 unit DAILY PO Last administered on 08/10/18 08:06; Admin Dose 1,000 UNIT; Start 08/03/18 at 09:00 Folic Acid (Folic Acid) 1 mg DAILY PO Last administered on 08/10/18 08:06; Admin Dose 1 MG; Start 08/03/18 at 09:00 Levothyroxine Sodium (Synthroid) 50 mcg BEFORE BREAKFAST PO Last administered on 08/10/18 07:07; Admin Dose 50 MCG; Start 08/03/18 at 07:00 Nortriptyline HCl (Aventyl) 10 mg TID PO Last administered on 08/10/18 12:36; Admin Dose 10 MG; Start 08/02/18 at 21:00 Sevelamer Carbonate (Renvela) 0.8 gm AC MEALS PO Last administered on 08/10/18 11:13; Admin Dose 0.8 GM; Start 08/02/18 at 17:30 Midodrine (Proamatine) 5 mg ON DIALYSIS DAYS PO Last administered on 08/09/18 20:09; Admin Dose 5 MG; Start 08/02/18 at 18:00 Insulin Glargine (Lantus) 15 units DAILY@0800 SC Last administered on 08/10/18 08:02; Admin Dose 15 UNITS; Start 08/03/18 at 12:00 Morphine Sulfate (morphine) 6 mg Q4H PRN PO SEVERE PAIN LEVEL 7-10; Start 08/06/18 at 23:30 Albumin Human 100 ml @ 100 mls/hr WITH DIALYSIS PRN IV SBP <90 DURING DIALYSIS Last administered on 08/09/18 20:22; Admin Dose 100 MLS/HR; Start 08/07/18 at 10:00 Gabapentin (Neurontin) 100 mg DAILY PO Last administered on 08/10/18 08:06; Admin Dose 100 MG; Start 08/07/18 at 11:30 Phenol (Cepastat Lozenge) 1 lozenge Q1H PRN MT COUGH Last administered on 08/08/18 02:34; Admin Dose 1 LOZENGE; Start 08/07/18 at 23:00 SHAMIR FRANKS Aug 10, 2018 13:50
[2018-08-11] VITALS (11 sets, daily range): BP systolic 113–177; BP diastolic 53–97; PULSE 89–110; RESP 16–19
[2018-08-11] MEDS: ACCU-CHEK XX SCH (01:10)
[2018-08-11] MEDS: LEVOTHYROXINE 50 MCG TAB PO SCH (06:14)
[2018-08-11] MEDS: SEVELAMER CARBONATE 0.8 GM PKT PO SCH ×3 (07:45→17:36)
[2018-08-11] MEDS: INSULIN ASPART [NOVOLOG] 3 ML PEN SC SCH ×4 (07:46→20:46)
[2018-08-11] MEDS: INSULIN GLARGINE [LANTus] (100 UNITS/ML) SYG SC SCH (08:09)
[2018-08-11] MEDS: FOLIC ACID 1 MG TAB PO SCH (08:38)
[2018-08-11] MEDS: CHOLECALCIFEROL 1,000 UNIT TAB PO SCH (08:38)
[2018-08-11] MEDS: GABAPENTIN 100 MG CAP PO SCH (08:38)
[2018-08-11] MEDS: FAMOTIDINE 20 MG TAB PO SCH (08:38)
[2018-08-11] MEDS: NORTRIPTYLINE 10 MG CAP PO SCH ×3 (08:38→20:33)
--- NOTE | 2018-08-11 08:52 | PN ---
Date/Time of Note Date/Time of Note DATE: 08/11/18 TIME: 08:52 Assessment/Plan VTE Prophylaxis Risk score (from Ns)>0 risk: 7 SCD applied (from Ns): No SCD contraindicated: other Pharmacological prophylaxis: NA/contraindicated Pharm contraindication: bleeding Lines/Catheters [facility]from [facility] Mid Line Urinary Cath still in place: No Assessment/Plan Assessment/Plan 1. Colonic mass at the splenic flexure and ascending colon - Discussed plans with Dr. Meneses, colorectal surgeon, who will coordinate surgical intervention with the team. Tentatively plan for late Sun or based on OR time etc Dr. Swartz and Dr. Pimentel made aware of tentative surgical plan. - GI on board and appreciate recommendations. 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 Cam on board and appreciate recommendations. - Cardiology consultation appreciated and medically optimized for surgical intervention. will need PPM either reprogrammed or magnet placed 2. End-stage renal disease on HD - Nephrology on board for HD management and appreciate recommendations 3. Diabetes - A1c noted - counseled about importance of diet choices and glucose control - Continue Lantus and ISS 4. Esophagitis - Continue PPI 5. Hypothyroidism - Continue home Synthroid 6. Persistent cough - improvement with Gabapentin 7. Nonischemic CM - pacer in place - Chronic per outpatient [facility] 8. Mild acute on chronic systolic HF - fluid removal during HD 9. Disposition - Surgery tentatively scheduled for Sun or and Dr. Frost will plan to set the date tomorrow. Nephrology and Cardiology made aware. Okay to continue soft low residual diet and make sure has daily BMs Result Diagram: 08/11/18 0557 08/11/18 0557 Results 24hrs Laboratory Tests Test 08/10/18 11:12 08/10/18 17:38 08/10/18 20:31 08/11/18 01:08 Bedside Glucose 158 249 H 200 172 Test 08/11/18 05:57 08/11/18 07:44 White Blood Count 9.2 Red Blood Count 2.98 L Hemoglobin 9.4 L Hematocrit 30.4 L Mean Corpuscular 102.0 H Volume Mean Corpuscular 31.5 Hemoglobin Mean Corpuscular 30.9 L Hemoglobin Concent Red Cell 16.8 H Distribution Width Platelet Count 125 #L Mean Platelet Volume 11.6 H Immature 0.500 H Granulocytes % Neutrophils % 66.6 Lymphocytes % 15.1 Monocytes % 14.0 H Eosinophils % 2.9 Basophils % 0.9 Nucleated Red Blood 0.0 Cells % Immature 0.050 H Granulocytes # Neutrophils # 6.1 Lymphocytes # 1.4 Monocytes # 1.3 H Eosinophils # 0.3 Basophils # 0.1 Nucleated Red Blood 0.0 Cells # Sodium Level 138 Potassium Level 4.6 Chloride Level 97 Carbon Dioxide Level 33 H Anion Gap 8 Blood Urea Nitrogen 29 #H Creatinine 6.37 H Glucose Level 134 # Calcium Level 8.1 L Phosphorus Level 5.1 H Magnesium Level 1.9 Albumin 2.7 L Bedside Glucose 126 Subjective 24 Hr Interval Summary Free Text/Dictation Patient is doing well and in no acute distress. Tolerating PO intake and states has daily BMs. Exam/Review of Systems Exam Vitals Vital Signs Date Temp Pulse Resp B/P (MAP) Pulse Ox O2 O2 Flow FiO2 Time Delivery Rate 08/11/18 97.7 89 16 114/53 96 07:40 (73) 08/10/18 Room Air 17:00 Intake and Output 08/10/18 08/10/18 08/11/18 1515:00 23:00 07:00 IntakeIntake Total 500 ml 350 ml BalanceBalance 500 ml 350 ml Exam General: Patient is a pleasant male, no acute distress Neck: Supple Lungs: Clear to auscultation bilaterally no crackles rales or wheezing Heart: Normal S1-S2, Regular rate and rhythm. no murmurs Abdomen: Soft , nontender, nondistended , bowel sounds are present. No guarding no rebound tenderness , No masses or organomegaly. Extremities: Swelling of LUE b/l Results Results 24hrs Laboratory Tests Test 08/10/18 11:12 08/10/18 17:38 08/10/18 20:31 08/11/18 01:08 Bedside Glucose 158 249 H 200 172 Test 08/11/18 05:57 08/11/18 07:44 White Blood Count 9.2 Red Blood Count 2.98 L Hemoglobin 9.4 L Hematocrit 30.4 L Mean Corpuscular 102.0 H Volume Mean Corpuscular 31.5 Hemoglobin Mean Corpuscular 30.9 L Hemoglobin Concent Red Cell 16.8 H Distribution Width Platelet Count 125 #L Mean Platelet Volume 11.6 H Immature 0.500 H Granulocytes % Neutrophils % 66.6 Lymphocytes % 15.1 Monocytes % 14.0 H Eosinophils % 2.9 Basophils % 0.9 Nucleated Red Blood 0.0 Cells % Immature 0.050 H Granulocytes # Neutrophils # 6.1 Lymphocytes # 1.4 Monocytes # 1.3 H Eosinophils # 0.3 Basophils # 0.1 Nucleated Red Blood 0.0 Cells # Sodium Level 138 Potassium Level 4.6 Chloride Level 97 Carbon Dioxide Level 33 H Anion Gap 8 Blood Urea Nitrogen 29 #H Creatinine 6.37 H Glucose Level 134 # Calcium Level 8.1 L Phosphorus Level 5.1 H Magnesium Level 1.9 Albumin 2.7 L Bedside Glucose 126 Medications Medication Current Medications IV Flush (NS 3 ml) 3 ml PER PROTOCOL IV ; Start 08/02/18 at 13:00 Ondansetron HCl (Zofran Inj) 4 mg Q6H PRN IV NAUSEA/VOMITING; Start 08/02/18 at 13:00 Acetaminophen (Tylenol Tab) 650 mg Q6H PRN PO .PAIN 1-3 OR TEMP Last administered on 08/06/18at 12:57; Admin Dose 650 MG; Start 08/02/18 at 13:00 Acetaminophen/ Hydrocodone Bitart ([place] (5/325)) 1 tab Q6H PRN PO .MOD PAIN 4- 6; Start 08/02/18 at 13:00 Docusate Sodium (Colace) 100 mg Q12H PRN PO .CONSTIPATION; Start 08/02/18 at 13:00 Magnesium Hydroxide (Milk Of Mag) 30 ml DAILY PRN PO .CONSTIPATION; Start at 13:00 Zolpidem Tartrate (Ambien) 5 mg QHS PRN PO .INSOMNIA; Start 08/02/18 at 13:00 Famotidine (Pepcid) 20 mg DAILY PO Last administered on 08/11/18at 08:38; Admin Dose 20 MG; Start 08/02/18 at 21:00 Diagnostic Test (Pha) (Accu-Chek) 1 ea 02 XX Last administered on 08/08/18at 02:36; Admin Dose 1 EA; Start 08/03/18 at 02:00 Insulin Aspart (Novolog Insulin Pen) NOVOLOG *MILD* ALGORITHM WITH MEALS BEDTIME SC Last administered on 08/10/18 20:36; Admin Dose 1 UNIT; Start 08/02/18 at 18:00 Miscellaneous Information 1 ea NOTE XX ; Start 08/02/18 at 13:30 Glucose (Glutose) 15 gm Q15M PRN PO DECREASED GLUCOSE; Start 08/02/18 at 13:30 Glucose (Glutose) 22.5 gm Q15M PRN PO DECREASED GLUCOSE; Start 08/02/18 at 13:30 Dextrose (D50w Syringe) 25 ml Q15M PRN IV DECREASED GLUCOSE; Start 08/02/18 at 13:30 Dextrose (D50w Syringe) 50 ml Q15M PRN IV DECREASED GLUCOSE; Start 08/02/18 at 13:30 Glucagon (Glucagen) 1 mg Q15M PRN IM DECREASED GLUCOSE; Start 08/02/18 at 13:30 Glucose (Glutose) 15 gm Q15M PRN BUCCAL DECREASED GLUCOSE; Start 08/02/18 at 13:30 Cholecalciferol (Vitamin D) 1,000 unit DAILY PO Last administered on 08/11/18 08:38; Admin Dose 1,000 UNIT; Start 08/03/18 at 09:00 Folic Acid (Folic Acid) 1 mg DAILY PO Last administered on 08/11/18 08:38; Admin Dose 1 MG; Start 08/03/18 at 09:00 Levothyroxine Sodium (Synthroid) 50 mcg BEFORE BREAKFAST PO Last administered on 08/11/18 06:14; Admin Dose 50 MCG; Start 08/03/18 at 07:00 Nortriptyline HCl (Aventyl) 10 mg TID PO Last administered on 08/11/18 08:38; Admin Dose 10 MG; Start 08/02/18 at 21:00 Sevelamer Carbonate (Renvela) 0.8 gm AC MEALS PO Last administered on 08/11/18 07:45; Admin Dose 0.8 GM; Start 08/02/18 at 17:30 Midodrine (Proamatine) 5 mg ON DIALYSIS DAYS PO Last administered on 08/09/18 20:09; Admin Dose 5 MG; Start 08/02/18 at 18:00 Insulin Glargine (Lantus) 15 units DAILY@0800 SC Last administered on 08/11/18 08:09; Admin Dose 15 UNITS; Start 08/03/18 at 12:00 Morphine Sulfate (morphine) 6 mg Q4H PRN PO SEVERE PAIN LEVEL 7-10; Start 08/06/18 at 23:30 Albumin Human 100 ml @ 100 mls/hr WITH DIALYSIS PRN IV SBP <90 DURING DIALYSIS Last administered on 08/09/18 20:22; Admin Dose 100 MLS/HR; Start 08/07/18 at 10:00 Gabapentin (Neurontin) 100 mg DAILY PO Last administered on 08/11/18 08:38; Admin Dose 100 MG; Start 08/07/18 at 11:30 Phenol (Cepastat Lozenge) 1 lozenge Q1H PRN MT COUGH Last administered on 08/08/18 02:34; Admin Dose 1 LOZENGE; Start 08/07/18 at 23:00 JO HURST MD Aug 11, 2018 08:52
[2018-08-11] MEDS ORDERED: POLYETHYLENE GLYCOL 17 GM PACKET PO PRN (11:00)
--- NOTE | 2018-08-11 11:08 | PN ---
Date/Time of Note Date/Time of Note DATE: 08/11/18 TIME: 11:01 Assessment/Plan VTE Prophylaxis Risk score (from Ns)>0 risk: 7 [place] [facility] [place] contraindicated: low risk/ambulating Pharmacological prophylaxis: NA/contraindicated Pharm contraindication: bleeding VTE Confirmed-Overlap Tx Rcvd Pt Rcvd Overlap Therapy: Yes Lines/Catheters [facility] Urinary Cath still in place: No Assessment/Plan Assessment/Plan Pt is aware of the need for surgery. I have discussed the need for sub-total colectomy to include both tumors and we will look at Sun or for the surgery. Will coordinate w/ nephrology, and make sure he is otherwise cleared for surgery medically. Will try to settlle the surgery date tomorrow. I will order a mild bowel prep once the time is set. Discussed w/ Dr Harris Result Diagram: 08/11/18 0557 08/11/18 0557 Results 24hrs Laboratory Tests Test 08/10/18 11:12 08/10/18 17:38 08/10/18 20:31 08/11/18 01:08 Bedside Glucose 158 249 H 200 172 Test 08/11/18 05:57 08/11/18 07:44 White Blood Count 9.2 Red Blood Count 2.98 L Hemoglobin 9.4 L Hematocrit 30.4 L Mean Corpuscular 102.0 H Volume Mean Corpuscular 31.5 Hemoglobin Mean Corpuscular 30.9 L Hemoglobin Concent Red Cell 16.8 H Distribution Width Platelet Count 125 #L Mean Platelet Volume 11.6 H Immature 0.500 H Granulocytes % Neutrophils % 66.6 Lymphocytes % 15.1 Monocytes % 14.0 H Eosinophils % 2.9 Basophils % 0.9 Nucleated Red Blood 0.0 Cells % Immature 0.050 H Granulocytes # Neutrophils # 6.1 Lymphocytes # 1.4 Monocytes # 1.3 H Eosinophils # 0.3 Basophils # 0.1 Nucleated Red Blood 0.0 Cells # Sodium Level 138 Potassium Level 4.6 Chloride Level 97 Carbon Dioxide Level 33 H Anion Gap 8 Blood Urea Nitrogen 29 #H Creatinine 6.37 H Glucose Level 134 # Calcium Level 8.1 L Phosphorus Level 5.1 H Magnesium Level 1.9 Albumin 2.7 L Bedside Glucose 126 Subjective 24 Hr Interval Summary Free Text/Dictation Pt is stable and able to tolerate a soft diet w/o difficulty. No bleeding, pain or obstructive Sx's Constitutional: no complaints Cardiovascular: no complaints Gastrointestinal: no complaints Exam/Review of Systems Exam Vitals Vital Signs Date Temp Pulse Resp B/P (MAP) Pulse Ox O2 O2 Flow FiO2 Time Delivery Rate 08/11/18 97.7 89 16 114/53 96 07:40 (73) 08/10/18 Room Air 17:00 Intake and Output 08/10/18 08/10/18 08/11/18 1515:00 23:00 07:00 IntakeIntake Total 500 ml 350 ml BalanceBalance 500 ml 350 ml Constitutional: alert, oriented Gastrointestinal: soft, non-tender Results Results 24hrs Laboratory Tests Test 08/10/18 11:12 08/10/18 17:38 08/10/18 20:31 08/11/18 01:08 Bedside Glucose 158 249 H 200 172 Test 08/11/18 05:57 08/11/18 07:44 White Blood Count 9.2 Red Blood Count 2.98 L Hemoglobin 9.4 L Hematocrit 30.4 L Mean Corpuscular 102.0 H Volume Mean Corpuscular 31.5 Hemoglobin Mean Corpuscular 30.9 L Hemoglobin Concent Red Cell 16.8 H Distribution Width Platelet Count 125 #L Mean Platelet Volume 11.6 H Immature 0.500 H Granulocytes % Neutrophils % 66.6 Lymphocytes % 15.1 Monocytes % 14.0 H Eosinophils % 2.9 Basophils % 0.9 Nucleated Red Blood 0.0 Cells % Immature 0.050 H Granulocytes # Neutrophils # 6.1 Lymphocytes # 1.4 Monocytes # 1.3 H Eosinophils # 0.3 Basophils # 0.1 Nucleated Red Blood 0.0 Cells # Sodium Level 138 Potassium Level 4.6 Chloride Level 97 Carbon Dioxide Level 33 H Anion Gap 8 Blood Urea Nitrogen 29 #H Creatinine 6.37 H Glucose Level 134 # Calcium Level 8.1 L Phosphorus Level 5.1 H Magnesium Level 1.9 Albumin 2.7 L Bedside Glucose 126 Medications Medication Current Medications IV Flush (NS 3 ml) 3 ml PER PROTOCOL IV ; Start 08/02/18 at 13:00 Ondansetron HCl (Zofran Inj) 4 mg Q6H PRN IV NAUSEA/VOMITING; Start 08/02/18 at 13:00 Acetaminophen (Tylenol Tab) 650 mg Q6H PRN PO .PAIN 1-3 OR TEMP Last administered on 08/06/18at 12:57; Admin Dose 650 MG; Start 08/02/18 at 13:00 Acetaminophen/ Hydrocodone Bitart ([place] (5/325)) 1 tab Q6H PRN PO .MOD PAIN 4- 6; Start 08/02/18 at 13:00 Docusate Sodium (Colace) 100 mg Q12H PRN PO .CONSTIPATION; Start 08/02/18 at 13:00 Zolpidem Tartrate (Ambien) 5 mg QHS PRN PO .INSOMNIA; Start 08/02/18 at 13:00 Famotidine (Pepcid) 20 mg DAILY PO Last administered on 08/11/18at 08:38; Admin Dose 20 MG; Start 08/02/18 at 21:00 Diagnostic Test (Pha) (Accu-Chek) 1 ea 02 XX Last administered on 08/08/18at 02:36; Admin Dose 1 EA; Start 08/03/18 at 02:00 Insulin Aspart (Novolog Insulin Pen) NOVOLOG *MILD* ALGORITHM WITH MEALS BEDTIME SC Last administered on 08/10/18at 20:36; Admin Dose 1 UNIT; Start 08/02/18 at 18:00 Miscellaneous Information 1 ea NOTE XX ; Start 08/02/18 at 13:30 Glucose (Glutose) 15 gm Q15M PRN PO DECREASED GLUCOSE; Start 08/02/18 at 13:30 Glucose (Glutose) 22.5 gm Q15M PRN PO DECREASED GLUCOSE; Start 08/02/18 at 13:30 Dextrose (D50w Syringe) 25 ml Q15M PRN IV DECREASED GLUCOSE; Start 08/02/18 at 13:30 Dextrose (D50w Syringe) 50 ml Q15M PRN IV DECREASED GLUCOSE; Start 08/02/18 at 13:30 Glucagon (Glucagen) 1 mg Q15M PRN IM DECREASED GLUCOSE; Start 08/02/18 at 13:30 Glucose (Glutose) 15 gm Q15M PRN BUCCAL DECREASED GLUCOSE; Start 08/02/18 at 13:30 Cholecalciferol (Vitamin D) 1,000 unit DAILY PO Last administered on 08/11/18 08:38; Admin Dose 1,000 UNIT; Start 08/03/18 at 09:00 Folic Acid (Folic Acid) 1 mg DAILY PO Last administered on 08/11/18 08:38; Admin Dose 1 MG; Start 08/03/18 at 09:00 Levothyroxine Sodium (Synthroid) 50 mcg BEFORE BREAKFAST PO Last administered on 08/11/18 06:14; Admin Dose 50 MCG; Start 08/03/18 at 07:00 Nortriptyline HCl (Aventyl) 10 mg TID PO Last administered on 08/11/18 08:38; Admin Dose 10 MG; Start 08/02/18 at 21:00 Sevelamer Carbonate (Renvela) 0.8 gm AC MEALS PO Last administered on 08/11/18 07:45; Admin Dose 0.8 GM; Start 08/02/18 at 17:30 Midodrine (Proamatine) 5 mg ON DIALYSIS DAYS PO Last administered on 08/09/18 20:09; Admin Dose 5 MG; Start 08/02/18 at 18:00 Insulin Glargine (Lantus) 15 units DAILY@0800 SC Last administered on 08/11/18 08:09; Admin Dose 15 UNITS; Start 08/03/18 at 12:00 Morphine Sulfate (morphine) 6 mg Q4H PRN PO SEVERE PAIN LEVEL 7-10; Start 08/06/18 at 23:30 Albumin Human 100 ml @ 100 mls/hr WITH DIALYSIS PRN IV SBP <90 DURING DIALYSIS Last administered on 08/09/18 20:22; Admin Dose 100 MLS/HR; Start 08/07/18 at 10:00 Gabapentin (Neurontin) 100 mg DAILY PO Last administered on 08/11/18 08:38; Admin Dose 100 MG; Start 08/07/18 at 11:30 Phenol (Cepastat Lozenge) 1 lozenge Q1H PRN MT COUGH Last administered on 07/20 02:34; Admin Dose 1 LOZENGE; Start 08/07/18 at 23:00 Polyethylene Glycol (Miralax) 17 gm DAILY PRN PO CONSTIPATION; Start 08/11/18 at 11:00 GONZÁLEZ MERIDA MD Aug 11, 2018 11:08
--- NOTE | 2018-08-11 12:44 | CONS ---
Assessment/Plan Assessment/Plan Hospital Course (Demo Recall) Pre-operative evaluation: The pt is to undergo intermediate risk surgery. He is not very active at baseline so functional capacity is difficult to determine. However no chest pain and no CAD. Euvolemic now. After discussion with his primary shift supervisor rn, his cardiomyopathy is nonischemic. He is at high risk for surgery but not prohibitive. Acute on chronic systolic CHF: euvolemic Non-ischemic Cardiomyopathy PPM: [employer] 05/04. For ?complete heart block as 100% v paced Pulm HTN: PAP 60s by echo Mild-moderate aortic stenosis Colon cancer: being evaluated for colectomy ESRD on HD -currently optimized for surgery -if surgery is planned, he will need the PPM reprogrammed or a magnet placed as he is pacer dependent -would like to initiate coreg on non dialysis days but with upcoming surgery, would not want to initiate negative inotrope until after -HD per nephrology for volume management Consultation Date/Type/Reason Admit Date/Time Aug 02, 2018 at 10:57 Initial Consult Date 08/08/18 Type of Consult Cardiology Requesting Provider: JO HURST MD Date/Time of Note DATE: 08/11/18 TIME: 12:43 24 HR Interval Summary Free Text/Dictation No events. Family at bedside. Surgery possibly Sun or Exam/Review of Systems Exam Vitals Vital Signs Date Temp Pulse Resp B/P (MAP) Pulse Ox O2 O2 Flow FiO2 Time Delivery Rate 08/11/18 98.3 89 17 115/56 94 11:35 (75) 08/10/18 Room Air 17:00 Intake and Output 08/10/18 08/10/18 08/11/18 1515:00 23:00 07:00 IntakeIntake Total 500 ml 350 ml BalanceBalance 500 ml 350 ml Constitutional: alert, oriented Psych: no complaints Head: normocephalic, atraumatic Neck: No jvd Respiratory: crackles/rales (mild at bases); No clear to auscultation Cardiovascular: regular rate and rhythm, systolic murmur (3/6 mid peaking MICH); No edema Musculoskeletal: nl extremities to inspection Neurological: nl mental status, nl speech Results Result Diagram: 08/11/18 0557 08/11/18 0557 Results 24hrs Laboratory Tests Test 08/10/18 17:38 08/10/18 20:31 08/11/18 01:08 08/11/18 05:57 Bedside Glucose 249 H 200 172 White Blood Count 9.2 Red Blood Count 2.98 L Hemoglobin 9.4 L Hematocrit 30.4 L Mean Corpuscular 102.0 H Volume Mean Corpuscular 31.5 Hemoglobin Mean Corpuscular 30.9 L Hemoglobin Concent Red Cell 16.8 H Distribution Width Platelet Count 125 #L Mean Platelet Volume 11.6 H Immature 0.500 H Granulocytes % Neutrophils % 66.6 Lymphocytes % 15.1 Monocytes % 14.0 H Eosinophils % 2.9 Basophils % 0.9 Nucleated Red Blood 0.0 Cells % Immature 0.050 H Granulocytes # Neutrophils # 6.1 Lymphocytes # 1.4 Monocytes # 1.3 H Eosinophils # 0.3 Basophils # 0.1 Nucleated Red Blood 0.0 Cells # Sodium Level 138 Potassium Level 4.6 Chloride Level 97 Carbon Dioxide Level 33 H Anion Gap 8 Blood Urea Nitrogen 29 #H Creatinine 6.37 H Glucose Level 134 # Calcium Level 8.1 L Phosphorus Level 5.1 H Magnesium Level 1.9 Albumin 2.7 L Test 08/11/18 07:44 08/11/18 12:04 Bedside Glucose 126 198 Medications Medication Current Medications IV Flush (NS 3 ml) 3 ml PER PROTOCOL IV ; Start 08/02/18 at 13:00 Ondansetron HCl (Zofran Inj) 4 mg Q6H PRN IV NAUSEA/VOMITING; Start 08/02/18 at 13:00 Acetaminophen (Tylenol Tab) 650 mg Q6H PRN PO .PAIN 1-3 OR TEMP Last administered on 08/06/18at 12:57; Admin Dose 650 MG; Start 08/02/18 at 13:00 Acetaminophen/ Hydrocodone Bitart ([place] (5/325)) 1 tab Q6H PRN PO .MOD PAIN 4- 6; Start 08/02/18 at 13:00 Docusate Sodium (Colace) 100 mg Q12H PRN PO .CONSTIPATION; Start 08/02/18 at 13:00 Zolpidem Tartrate (Ambien) 5 mg QHS PRN PO .INSOMNIA; Start 08/02/18 at 13:00 Famotidine (Pepcid) 20 mg DAILY PO Last administered on 08/11/18at 08:38; Admin Dose 20 MG; Start 08/02/18 at 21:00 Diagnostic Test (Pha) (Accu-Chek) 1 ea 02 XX Last administered on 08/08/18at 02:36; Admin Dose 1 EA; Start 08/03/18 at 02:00 Insulin Aspart (Novolog Insulin Pen) NOVOLOG *MILD* ALGORITHM WITH MEALS BEDTIME SC Last administered on 08/11/18at 12:24; Admin Dose 2 UNIT; Start 08/02/18 at 18:00 Miscellaneous Information 1 ea NOTE XX ; Start 08/02/18 at 13:30 Glucose (Glutose) 15 gm Q15M PRN PO DECREASED GLUCOSE; Start 08/02/18 at 13:30 Glucose (Glutose) 22.5 gm Q15M PRN PO DECREASED GLUCOSE; Start 08/02/18 at 13:30 Dextrose (D50w Syringe) 25 ml Q15M PRN IV DECREASED GLUCOSE; Start 08/02/18 at 13:30 Dextrose (D50w Syringe) 50 ml Q15M PRN IV DECREASED GLUCOSE; Start 08/02/18 at 13:30 Glucagon (Glucagen) 1 mg Q15M PRN IM DECREASED GLUCOSE; Start 08/02/18 at 13:30 Glucose (Glutose) 15 gm Q15M PRN BUCCAL DECREASED GLUCOSE; Start 08/02/18 at 13:30 Cholecalciferol (Vitamin D) 1,000 unit DAILY PO Last administered on 08/11/18at 08:38; Admin Dose 1,000 UNIT; Start 08/03/18 at 09:00 Folic Acid (Folic Acid) 1 mg DAILY PO Last administered on 08/11/18at 08:38; Admin Dose 1 MG; Start 08/03/18 at 09:00 Levothyroxine Sodium (Synthroid) 50 mcg BEFORE BREAKFAST PO Last administered on 08/11/18 06:14; Admin Dose 50 MCG; Start 08/03/18 at 07:00 Nortriptyline HCl (Aventyl) 10 mg TID PO Last administered on 08/11/18 12:20; Admin Dose 10 MG; Start 08/02/18 at 21:00 Sevelamer Carbonate (Renvela) 0.8 gm AC MEALS PO Last administered on 08/11/18at 12:24; Admin Dose 0.8 GM; Start 08/02/18 at 17:30 Midodrine (Proamatine) 5 mg ON DIALYSIS DAYS PO Last administered on 08/09/18 20:09; Admin Dose 5 MG; Start 08/02/18 at 18:00 Insulin Glargine (Lantus) 15 units DAILY@0800 SC Last administered on 08/11/18 08:09; Admin Dose 15 UNITS; Start 08/03/18 at 12:00 Morphine Sulfate (morphine) 6 mg Q4H PRN PO SEVERE PAIN LEVEL 7-10; Start 08/06/18 at 23:30 Albumin Human 100 ml @ 100 mls/hr WITH DIALYSIS PRN IV SBP <90 DURING DIALYSIS Last administered on 08/09/18 20:22; Admin Dose 100 MLS/HR; Start 08/07/18 at 10:00 Gabapentin (Neurontin) 100 mg DAILY PO Last administered on 08/11/18 08:38; Admin Dose 100 MG; Start 08/07/18 at 11:30 Phenol (Cepastat Lozenge) 1 lozenge Q1H PRN MT COUGH Last administered on 08/08/18 02:34; Admin Dose 1 LOZENGE; Start 08/07/18 at 23:00 Polyethylene Glycol (Miralax) 17 gm DAILY PRN PO CONSTIPATION; Start 08/11/18 at 11:00 LUCRETIA QUEEN Aug 11, 2018 12:44
--- NOTE | 2018-08-11 14:04 | CONS ---
Assessment/Plan Assessment/Plan Assessment/Plan (Daily) #Colon ca -per bx patient appears to have 2 separate masses with different pathology results. 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 -CT does not reveal evidence of distant mets -pt needs a hemicolectomy to remove the masses and to more fully evaluate the pathologic specimens and determine what kind of cancer it is -if he is too high risk to have surgery at [facility], pt will need to be transferred for higher level of care -further recommendations for chemotherapy will be based on the surgical pathology results #ESRD -continue HD per renal #Diabetes - A1c noted - Continue Lantus and ISS #Hypothyroidism - Continue Synthroid #Nonischemic CM - pacer in place - nonchronic # Anemia- Hgb 9.4 - monitor CBC Patient seen in collaboration with Dr Hodges Consultation Date/Type/Reason Admit Date/Time Aug 02, 2018 at 10:57 Initial Consult Date 08/09/18 Type of Consult oncology Reason for Consultation COLON CANCER Requesting Provider: JO HURST MD Date/Time of Note DATE: 08/11/18 TIME: 14:04 24 HR Interval Summary Free Text/Dictation seems comfortable - no new issues reported overnight Detailed Summary Eyes: no complaints ENT: no complaints Respiratory: no complaints Cardiovascular: no complaints Gastrointestinal: no complaints Genitourinary: no complaints Musculoskeletal: no complaints Skin: no complaints Neurologic: no complaints Exam/Review of Systems Exam Vitals Vital Signs Date Temp Pulse Resp B/P (MAP) Pulse Ox O2 O2 Flow FiO2 Time Delivery Rate 08/11/18 98.3 89 17 115/56 94 11:35 (75) 08/10/18 Room Air 17:00 Intake and Output 08/10/18 08/10/18 08/11/18 1515:00 23:00 07:00 IntakeIntake Total 500 ml 350 ml BalanceBalance 500 ml 350 ml Constitutional: alert, well developed Psych: nl mood/affect Head: atraumatic Eyes: EOMI, nl lids, nl sclera ENMT: nl external ears & nose Neck: non-tender Respiratory: diminished breath sounds Cardiovascular: nl pulses, other (S1S2) Gastrointestinal: soft Musculoskeletal: nl extremities to inspection Extremities: edema (LUE) Neurological: nl speech, other (ALERT/REPONSIVE) Skin: nl turgor Lymph: nontender Results Result Diagram: 08/11/18 0557 08/11/18 0557 Results 24hrs Laboratory Tests Test 08/10/18 17:38 08/10/18 20:31 08/11/18 01:08 08/11/18 05:57 Bedside Glucose 249 H 200 172 White Blood Count 9.2 Red Blood Count 2.98 L Hemoglobin 9.4 L Hematocrit 30.4 L Mean Corpuscular 102.0 H Volume Mean Corpuscular 31.5 Hemoglobin Mean Corpuscular 30.9 L Hemoglobin Concent Red Cell 16.8 H Distribution Width Platelet Count 125 #L Mean Platelet Volume 11.6 H Immature 0.500 H Granulocytes % Neutrophils % 66.6 Lymphocytes % 15.1 Monocytes % 14.0 H Eosinophils % 2.9 Basophils % 0.9 Nucleated Red Blood 0.0 Cells % Immature 0.050 H Granulocytes # Neutrophils # 6.1 Lymphocytes # 1.4 Monocytes # 1.3 H Eosinophils # 0.3 Basophils # 0.1 Nucleated Red Blood 0.0 Cells # Sodium Level 138 Potassium Level 4.6 Chloride Level 97 Carbon Dioxide Level 33 H Anion Gap 8 Blood Urea Nitrogen 29 #H Creatinine 6.37 H Glucose Level 134 # Calcium Level 8.1 L Phosphorus Level 5.1 H Magnesium Level 1.9 Albumin 2.7 L Test 08/11/18 07:44 08/11/18 12:04 Bedside Glucose 126 198 Medications Medication Current Medications IV Flush (NS 3 ml) 3 ml PER PROTOCOL IV ; Start 08/02/18 at 13:00 Ondansetron HCl (Zofran Inj) 4 mg Q6H PRN IV NAUSEA/VOMITING; Start 08/02/18 at 13:00 Acetaminophen (Tylenol Tab) 650 mg Q6H PRN PO .PAIN 1-3 OR TEMP Last administered on 08/06/18at 12:57; Admin Dose 650 MG; Start 08/02/18 at 13:00 Acetaminophen/ Hydrocodone Bitart ([place] (5/325)) 1 tab Q6H PRN PO .MOD PAIN 4- 6; Start 08/02/18 at 13:00 Docusate Sodium (Colace) 100 mg Q12H PRN PO .CONSTIPATION; Start 08/02/18 at 13:00 Zolpidem Tartrate (Ambien) 5 mg QHS PRN PO .INSOMNIA; Start 08/02/18 at 13:00 Famotidine (Pepcid) 20 mg DAILY PO Last administered on 08/11/18 08:38; Admin Dose 20 MG; Start 08/02/18 at 21:00 Diagnostic Test (Pha) (Accu-Chek) 1 ea 02 XX Last administered on 08/08/18at 02:36; Admin Dose 1 EA; Start 08/03/18 at 02:00 Insulin Aspart (Novolog Insulin Pen) NOVOLOG *MILD* ALGORITHM WITH MEALS BEDTIME SC Last administered on 08/11/18at 12:24; Admin Dose 2 UNIT; Start 08/02/18 at 18:00 Miscellaneous Information 1 ea NOTE XX ; Start 08/02/18 at 13:30 Glucose (Glutose) 15 gm Q15M PRN PO DECREASED GLUCOSE; Start 08/02/18 at 13:30 Glucose (Glutose) 22.5 gm Q15M PRN PO DECREASED GLUCOSE; Start 08/02/18 at 13:30 Dextrose (D50w Syringe) 25 ml Q15M PRN IV DECREASED GLUCOSE; Start 08/02/18 at 13:30 Dextrose (D50w Syringe) 50 ml Q15M PRN IV DECREASED GLUCOSE; Start 08/02/18 at 13:30 Glucagon (Glucagen) 1 mg Q15M PRN IM DECREASED GLUCOSE; Start 08/02/18 at 13:30 Glucose (Glutose) 15 gm Q15M PRN BUCCAL DECREASED GLUCOSE; Start 08/02/18 at 13:30 Cholecalciferol (Vitamin D) 1,000 unit DAILY PO Last administered on 08/11/18 08:38; Admin Dose 1,000 UNIT; Start 08/03/18 at 09:00 Folic Acid (Folic Acid) 1 mg DAILY PO Last administered on 08/11/18 08:38; Admin Dose 1 MG; Start 08/03/18 at 09:00 Levothyroxine Sodium (Synthroid) 50 mcg BEFORE BREAKFAST PO Last administered on 08/11/18 06:14; Admin Dose 50 MCG; Start 08/03/18 at 07:00 Nortriptyline HCl (Aventyl) 10 mg TID PO Last administered on 08/11/18 12:20; Admin Dose 10 MG; Start 08/02/18 at 21:00 Sevelamer Carbonate (Renvela) 0.8 gm AC MEALS PO Last administered on 08/11/18 12:24; Admin Dose 0.8 GM; Start 08/02/18 at 17:30 Midodrine (Proamatine) 5 mg ON DIALYSIS DAYS PO Last administered on 08/09/18 20:09; Admin Dose 5 MG; Start 08/02/18 at 18:00 Insulin Glargine (Lantus) 15 units DAILY@0800 SC Last administered on 08/11/18 08:09; Admin Dose 15 UNITS; Start 08/03/18 at 12:00 Morphine Sulfate (morphine) 6 mg Q4H PRN PO SEVERE PAIN LEVEL 7-10; Start 08/06/18 at 23:30 Albumin Human 100 ml @ 100 mls/hr WITH DIALYSIS PRN IV SBP <90 DURING DIALYSIS Last administered on 08/09/18 20:22; Admin Dose 100 MLS/HR; Start 08/07/18 at 10:00 Gabapentin (Neurontin) 100 mg DAILY PO Last administered on 08/11/18 08:38; Admin Dose 100 MG; Start 08/07/18 at 11:30 Phenol (Cepastat Lozenge) 1 lozenge Q1H PRN MT COUGH Last administered on 08/08/18 02:34; Admin Dose 1 LOZENGE; Start 08/07/18 at 23:00 Polyethylene Glycol (Miralax) 17 gm DAILY PRN PO CONSTIPATION; Start 08/11/18 at 11:00 SHAMIR FRANKS Aug 11, 2018 14:04
--- NOTE | 2018-08-11 16:50 | CONS ---
Assessment/Plan Assessment/Plan Hospital Course (Demo Recall) 1. End-stage renal disease, on hemodialysis, 2. s/p Bloody diarrhea with evidence of splenic flexure mass 3. anemia 4. History of congestive heart failure. 5. Hypercholesterolemia. 6. Total hip replacement. 7. Leukocytosis. 8. Hypoglycemia. 9. Macrocytic hypochromic Anemia mixed etiology, recent blood loss and 2/2 kidney disease 10. Hypothyroidism 11 adenocarcinoma two malignancy plan per surgery hd Consultation Date/Type/Reason Admit Date/Time Aug 02, 2018 at 10:57 Initial Consult Date 08/03/18 Type of Consult RENAL F/U Requesting Provider: JO HURST MD Date/Time of Note DATE: 08/11/18 TIME: 16:47 Exam/Review of Systems Exam Vitals Vital Signs Date Temp Pulse Resp B/P (MAP) Pulse Ox O2 O2 Flow FiO2 Time Delivery Rate 08/11/18 93 16:29 08/11/18 98.6 17 114/57 97 15:55 (76) 08/10/18 Room Air 17:00 Intake and Output 08/10/18 08/10/18 08/11/18 1515:00 23:00 07:00 IntakeIntake Total 500 ml 350 ml BalanceBalance 500 ml 350 ml Respiratory: clear to auscultation Cardiovascular: regular rate and rhythm Gastrointestinal: soft Musculoskeletal: nl extremities to inspection, nl gait and stance Extremities: No edema Results Result Diagram: 08/11/18 0557 08/11/18 0557 Results 24hrs Laboratory Tests Test 08/10/18 17:38 08/10/18 20:31 08/11/18 01:08 08/11/18 05:57 Bedside Glucose 249 H 200 172 White Blood Count 9.2 Red Blood Count 2.98 L Hemoglobin 9.4 L Hematocrit 30.4 L Mean Corpuscular 102.0 H Volume Mean Corpuscular 31.5 Hemoglobin Mean Corpuscular 30.9 L Hemoglobin Concent Red Cell 16.8 H Distribution Width Platelet Count 125 #L Mean Platelet Volume 11.6 H Immature 0.500 H Granulocytes % Neutrophils % 66.6 Lymphocytes % 15.1 Monocytes % 14.0 H Eosinophils % 2.9 Basophils % 0.9 Nucleated Red Blood 0.0 Cells % Immature 0.050 H Granulocytes # Neutrophils # 6.1 Lymphocytes # 1.4 Monocytes # 1.3 H Eosinophils # 0.3 Basophils # 0.1 Nucleated Red Blood 0.0 Cells # Sodium Level 138 Potassium Level 4.6 Chloride Level 97 Carbon Dioxide Level 33 H Anion Gap 8 Blood Urea Nitrogen 29 #H Creatinine 6.37 H Glucose Level 134 # Calcium Level 8.1 L Phosphorus Level 5.1 H Magnesium Level 1.9 Albumin 2.7 L Test 08/11/18 07:44 08/11/18 12:04 Bedside Glucose 126 198 Medications Medication Current Medications IV Flush (NS 3 ml) 3 ml PER PROTOCOL IV ; Start 08/02/18 at 13:00 Ondansetron HCl (Zofran Inj) 4 mg Q6H PRN IV NAUSEA/VOMITING; Start 08/02/18 at 13:00 Acetaminophen (Tylenol Tab) 650 mg Q6H PRN PO .PAIN 1-3 OR TEMP Last administered on 08/06/18at 12:57; Admin Dose 650 MG; Start 08/02/18 at 13:00 Acetaminophen/ Hydrocodone Bitart ([place] (5/325)) 1 tab Q6H PRN PO .MOD PAIN 4- 6; Start 08/02/18 at 13:00 Docusate Sodium (Colace) 100 mg Q12H PRN PO .CONSTIPATION; Start 08/02/18 at 13:00 Zolpidem Tartrate (Ambien) 5 mg QHS PRN PO .INSOMNIA; Start 08/02/18 at 13:00 Famotidine (Pepcid) 20 mg DAILY PO Last administered on 08/11/18at 08:38; Admin Dose 20 MG; Start 08/02/18 at 21:00 Diagnostic Test (Pha) (Accu-Chek) 1 ea 02 XX Last administered on 08/08/18at 02:36; Admin Dose 1 EA; Start 08/03/18 at 02:00 Insulin Aspart (Novolog Insulin Pen) NOVOLOG *MILD* ALGORITHM WITH MEALS BEDTIME SC Last administered on 08/11/18at 12:24; Admin Dose 2 UNIT; Start 08/02/18 at 18:00 Miscellaneous Information 1 ea NOTE XX ; Start 08/02/18 at 13:30 Glucose (Glutose) 15 gm Q15M PRN PO DECREASED GLUCOSE; Start 08/02/18 at 13:30 Glucose (Glutose) 22.5 gm Q15M PRN PO DECREASED GLUCOSE; Start 08/02/18 at 13:30 Dextrose (D50w Syringe) 25 ml Q15M PRN IV DECREASED GLUCOSE; Start 08/02/18 at 13:30 Dextrose (D50w Syringe) 50 ml Q15M PRN IV DECREASED GLUCOSE; Start 08/02/18 at 13:30 Glucagon (Glucagen) 1 mg Q15M PRN IM DECREASED GLUCOSE; Start 08/02/18 at 13:30 Glucose (Glutose) 15 gm Q15M PRN BUCCAL DECREASED GLUCOSE; Start 08/02/18 at 13:30 Cholecalciferol (Vitamin D) 1,000 unit DAILY PO Last administered on 08/11/18 08:38; Admin Dose 1,000 UNIT; Start 08/03/18 at 09:00 Folic Acid (Folic Acid) 1 mg DAILY PO Last administered on 08/11/18 08:38; Admin Dose 1 MG; Start 08/03/18 at 09:00 Levothyroxine Sodium (Synthroid) 50 mcg BEFORE BREAKFAST PO Last administered on 08/11/18 06:14; Admin Dose 50 MCG; Start 08/03/18 at 07:00 Nortriptyline HCl (Aventyl) 10 mg TID PO Last administered on 08/11/18 12:20; Admin Dose 10 MG; Start 08/02/18 at 21:00 Sevelamer Carbonate (Renvela) 0.8 gm AC MEALS PO Last administered on 08/11/18 12:24; Admin Dose 0.8 GM; Start 08/02/18 at 17:30 Midodrine (Proamatine) 5 mg ON DIALYSIS DAYS PO Last administered on 08/09/18 20:09; Admin Dose 5 MG; Start 08/02/18 at 18:00 Insulin Glargine (Lantus) 15 units DAILY@0800 SC Last administered on 08/11/18 08:09; Admin Dose 15 UNITS; Start 08/03/18 at 12:00 Morphine Sulfate (morphine) 6 mg Q4H PRN PO SEVERE PAIN LEVEL 7-10; Start 08/06/18 at 23:30 Albumin Human 100 ml @ 100 mls/hr WITH DIALYSIS PRN IV SBP <90 DURING DIALYSIS Last administered on 08/09/18 20:22; Admin Dose 100 MLS/HR; Start 08/07/18 at 10:00 Gabapentin (Neurontin) 100 mg DAILY PO Last administered on 08/11/18at 08:38; Admin Dose 100 MG; Start 08/07/18 at 11:30 Phenol (Cepastat Lozenge) 1 lozenge Q1H PRN MT COUGH Last administered on 08/08/18at 02:34; Admin Dose 1 LOZENGE; Start 08/07/18 at 23:00 Polyethylene Glycol (Miralax) 17 gm DAILY PRN PO CONSTIPATION; Start 08/11/18 at 11:00 LAMIN STEIN MD Aug 11, 2018 16:50
[2018-08-12] VITALS (27 sets, daily range): BP systolic 88–168; BP diastolic 40–104; PULSE 90–114; RESP 16–20
[2018-08-12] MEDS: ACCU-CHEK XX SCH (02:00)
[2018-08-12] MEDS: LEVOTHYROXINE 50 MCG TAB PO SCH (07:36)
[2018-08-12] MEDS: SEVELAMER CARBONATE 0.8 GM PKT PO SCH ×3 (07:37→17:33)
[2018-08-12] MEDS: INSULIN ASPART [NOVOLOG] 3 ML PEN SC SCH ×4 (07:37→21:00)
[2018-08-12] MEDS: INSULIN GLARGINE [LANTus] (100 UNITS/ML) SYG SC SCH (07:43)
[2018-08-12] MEDS: FOLIC ACID 1 MG TAB PO SCH (09:06)
[2018-08-12] MEDS: FAMOTIDINE 20 MG TAB PO SCH (09:06)
[2018-08-12] MEDS: CHOLECALCIFEROL 1,000 UNIT TAB PO SCH (09:06)
[2018-08-12] MEDS: GABAPENTIN 100 MG CAP PO SCH (09:06)
[2018-08-12] MEDS: NORTRIPTYLINE 10 MG CAP PO SCH ×3 (09:07→21:01)
[2018-08-12] MEDS: ALBUMIN HUMAN 25% 100 ML IV PRN (09:17)
[2018-08-12] MEDS: MIDODRINE 5 MG TAB PO SCH (09:34)
--- NOTE | 2018-08-12 10:43 | CONS ---
Assessment/Plan Assessment/Plan Assessment/Plan (Daily) 1 End-stage renal disease, on hemodialysis,mwf with mild CHF 2. 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 Hypotension. 4. History of congestive heart failure. 5. Hypercholesterolemia. 6. Total hip replacement. 7. Leukocytosis. 8. Hypoglycemia. 9. MAcrocytic hypochromic Anemia mixed etiology, recent blood loss and 2/2 kidney disease 10. Hypothyroidism 11 HCx CAD Plan - HD today, limited in removing too much volume off due to low blood pressures, pt asymtomatic -he was also given midodrine and also/albumin -Hemicolectomy per surgery will have to coordinate with dialysis days, prob can do hemodialysis at midnight before surgery -Midodrine on dialysis days for hypotension -Renally Dose all meds -Avoid nephrotoxic agents. Consultation Date/Type/Reason Admit Date/Time Aug 02, 2018 at 10:57 Initial Consult Date 08/03/18 Requesting Provider: JO HURST MD Date/Time of Note DATE: 08/12/18 TIME: 10:41 24 HR Interval Summary Free Text/Dictation SBP is 90s-100 he denies any dizziness any leg cramps Exam/Review of Systems Exam Vitals Vital Signs Date Temp Pulse Resp B/P (MAP) Pulse Ox O2 O2 Flow FiO2 Time Delivery Rate 08/12/18 94 10:30 08/12/18 20 109/56 Room Air 08:00 (73) 08/12/18 97.9 95 07:40 Intake and Output 08/11/18 08/11/18 08/12/18 1515:00 23:00 07:00 IntakeIntake Total 360 ml 340 ml 350 ml BalanceBalance 360 ml 340 ml 350 ml Exam Exam Respiratory: diminished breath sounds R>L Cardiovascular: regular rate and rhythm Gastrointestinal: soft, bowel sounds (+) Extremities: No edema hero graft Results Result Diagram: 08/12/18 0540 08/12/18 0540 Results 24hrs Laboratory Tests Test 08/11/18 12:04 08/11/18 17:34 08/11/18 20:29 08/12/18 02:26 Bedside Glucose 198 226 H 186 121 Test 08/12/18 05:40 08/12/18 07:35 White Blood Count 9.3 Red Blood Count 3.21 L Hemoglobin 9.9 L Hematocrit 31.8 L Mean Corpuscular 99.1 Volume Mean Corpuscular 30.8 Hemoglobin Mean Corpuscular 31.1 L Hemoglobin Concent Red Cell 16.4 H Distribution Width Platelet Count 143 Mean Platelet Volume 11.7 H Immature 0.300 Granulocytes % Neutrophils % 68.5 Lymphocytes % 15.0 Monocytes % 12.2 H Eosinophils % 3.1 Basophils % 0.9 Nucleated Red Blood 0.0 Cells % Immature 0.030 Granulocytes # Neutrophils # 6.4 Lymphocytes # 1.4 Monocytes # 1.1 H Eosinophils # 0.3 Basophils # 0.1 Nucleated Red Blood 0.0 Cells # Sodium Level 137 Potassium Level 4.6 Chloride Level 97 Carbon Dioxide Level 29 Anion Gap 11 Blood Urea Nitrogen 40 #H Creatinine 7.69 H Glucose Level 81 # Calcium Level 8.0 L Phosphorus Level 5.9 H Magnesium Level 1.8 Albumin 2.7 L Bedside Glucose 88 Medications Medication Current Medications IV Flush (NS 3 ml) 3 ml PER PROTOCOL IV ; Start 08/02/18 at 13:00 Ondansetron HCl (Zofran Inj) 4 mg Q6H PRN IV NAUSEA/VOMITING; Start 08/02/18 at 13:00 Acetaminophen (Tylenol Tab) 650 mg Q6H PRN PO .PAIN 1-3 OR TEMP Last administered on 08/06/18at 12:57; Admin Dose 650 MG; Start 08/02/18 at 13:00 Acetaminophen/ Hydrocodone Bitart ([place] (5/325)) 1 tab Q6H PRN PO .MOD PAIN 4- 6; Start 08/02/18 at 13:00 Docusate Sodium (Colace) 100 mg Q12H PRN PO .CONSTIPATION; Start 08/02/18 at 13:00 Zolpidem Tartrate (Ambien) 5 mg QHS PRN PO .INSOMNIA; Start 08/02/18 at 13:00 Famotidine (Pepcid) 20 mg DAILY PO Last administered on 08/12/18at 09:06; Admin Dose 20 MG; Start 08/02/18 at 21:00 Diagnostic Test (Pha) (Accu-Chek) 1 ea 02 XX Last administered on 08/08/18at 02:36; Admin Dose 1 EA; Start 08/03/18 at 02:00 Insulin Aspart (Novolog Insulin Pen) NOVOLOG *MILD* ALGORITHM WITH MEALS BEDTIME SC Last administered on 08/11/18 20:46; Admin Dose 1 UNIT; Start 08/02/18 at 18:00 Miscellaneous Information 1 ea NOTE XX ; Start 08/02/18 at 13:30 Glucose (Glutose) 15 gm Q15M PRN PO DECREASED GLUCOSE; Start 08/02/18 at 13:30 Glucose (Glutose) 22.5 gm Q15M PRN PO DECREASED GLUCOSE; Start 08/02/18 at 13:30 Dextrose (D50w Syringe) 25 ml Q15M PRN IV DECREASED GLUCOSE; Start 08/02/18 at 13:30 Dextrose (D50w Syringe) 50 ml Q15M PRN IV DECREASED GLUCOSE; Start 08/02/18 at 13:30 Glucagon (Glucagen) 1 mg Q15M PRN IM DECREASED GLUCOSE; Start 08/02/18 at 13:30 Glucose (Glutose) 15 gm Q15M PRN BUCCAL DECREASED GLUCOSE; Start 08/02/18 at 13:30 Cholecalciferol (Vitamin D) 1,000 unit DAILY PO Last administered on 08/12/18 09:06; Admin Dose 1,000 UNIT; Start 08/03/18 at 09:00 Folic Acid (Folic Acid) 1 mg DAILY PO Last administered on 08/12/18 09:06; Admin Dose 1 MG; Start 08/03/18 at 09:00 Levothyroxine Sodium (Synthroid) 50 mcg BEFORE BREAKFAST PO Last administered on 08/12/18 07:36; Admin Dose 50 MCG; Start 08/03/18 at 07:00 Nortriptyline HCl (Aventyl) 10 mg TID PO Last administered on 08/12/18 09:07; Admin Dose 10 MG; Start 08/02/18 at 21:00 Sevelamer Carbonate (Renvela) 0.8 gm AC MEALS PO Last administered on 08/12/18 07:37; Admin Dose 0.8 GM; Start 08/02/18 at 17:30 Midodrine (Proamatine) 5 mg ON DIALYSIS DAYS PO Last administered on 08/12/18 09:34; Admin Dose 5 MG; Start 08/02/18 at 18:00 Insulin Glargine (Lantus) 15 units DAILY@0800 SC Last administered on 08/12/18 07:43; Admin Dose 15 UNITS; Start 08/03/18 at 12:00 Morphine Sulfate (morphine) 6 mg Q4H PRN PO SEVERE PAIN LEVEL 7-10; Start 08/06/18 at 23:30 Albumin Human 100 ml @ 100 mls/hr WITH DIALYSIS PRN IV SBP <90 DURING DIALYSIS Last administered on 08/12/18 09:17; Admin Dose 100 MLS/HR; Start 08/07/18 at 10:00 Gabapentin (Neurontin) 100 mg DAILY PO Last administered on 08/12/18at 09:06; Admin Dose 100 MG; Start 08/07/18 at 11:30 Phenol (Cepastat Lozenge) 1 lozenge Q1H PRN MT COUGH Last administered on 08/08/18 02:34; Admin Dose 1 LOZENGE; Start 08/07/18 at 23:00 Polyethylene Glycol (Miralax) 17 gm DAILY PRN PO CONSTIPATION; Start 08/11/18 a t 11:00 NNEKA FRITZ MD Aug 12, 2018 10:43
--- NOTE | 2018-08-12 12:25 | PN ---
Date/Time of Note Date/Time of Note DATE: 08/12/18 TIME: 12:25 Objective Vitals Vital Signs Date Temp Pulse Resp B/P (MAP) Pulse Ox O2 O2 Flow FiO2 Time Delivery Rate 08/12/18 90 11:45 08/12/18 98.0 16 93/62 (72) 99 11:32 08/12/18 Room Air 08:00 Intake and Output 08/11/18 08/11/18 08/12/18 1515:00 23:00 07:00 IntakeIntake Total 360 ml 340 ml 350 ml BalanceBalance 360 ml 340 ml 350 ml Results Result Diagram: 08/12/18 0540 08/12/18 0540 Medications Medications Current Medications IV Flush (NS 3 ml) 3 ml PER PROTOCOL IV ; Start 08/02/18 at 13:00 Ondansetron HCl (Zofran Inj) 4 mg Q6H PRN IV NAUSEA/VOMITING; Start 08/02/18 at 13:00 Acetaminophen (Tylenol Tab) 650 mg Q6H PRN PO .PAIN 1-3 OR TEMP Last administered on 08/06/18at 12:57; Admin Dose 650 MG; Start 08/02/18 at 13:00 Acetaminophen/ Hydrocodone Bitart ([place] (5/325)) 1 tab Q6H PRN PO .MOD PAIN 4- 6; Start 08/02/18 at 13:00 Docusate Sodium (Colace) 100 mg Q12H PRN PO .CONSTIPATION; Start 08/02/18 at 13:00 Zolpidem Tartrate (Ambien) 5 mg QHS PRN PO .INSOMNIA; Start 08/02/18 at 13:00 Famotidine (Pepcid) 20 mg DAILY PO Last administered on 08/12/18at 09:06; Admin Dose 20 MG; Start 08/02/18 at 21:00 Diagnostic Test (Pha) (Accu-Chek) 1 ea 02 XX Last administered on 08/08/18at 02:36; Admin Dose 1 EA; Start 08/03/18 at 02:00 Insulin Aspart (Novolog Insulin Pen) NOVOLOG *MILD* ALGORITHM WITH MEALS BEDTIME SC Last administered on 08/11/18at 20:46; Admin Dose 1 UNIT; Start 08/02/18 at 18:00 Miscellaneous Information 1 ea NOTE XX ; Start 08/02/18 at 13:30 Glucose (Glutose) 15 gm Q15M PRN PO DECREASED GLUCOSE; Start 08/02/18 at 13:30 Glucose (Glutose) 22.5 gm Q15M PRN PO DECREASED GLUCOSE; Start 08/02/18 at 13:30 Dextrose (D50w Syringe) 25 ml Q15M PRN IV DECREASED GLUCOSE; Start 08/02/18 at 13:30 Dextrose (D50w Syringe) 50 ml Q15M PRN IV DECREASED GLUCOSE; Start 08/02/18 at 13:30 Glucagon (Glucagen) 1 mg Q15M PRN IM DECREASED GLUCOSE; Start 08/02/18 at 13:30 Glucose (Glutose) 15 gm Q15M PRN BUCCAL DECREASED GLUCOSE; Start 08/02/18 at 13:30 Cholecalciferol (Vitamin D) 1,000 unit DAILY PO Last administered on 08/12/18 09:06; Admin Dose 1,000 UNIT; Start 08/03/18 at 09:00 Folic Acid (Folic Acid) 1 mg DAILY PO Last administered on 08/12/18 09:06; Admin Dose 1 MG; Start 08/03/18 at 09:00 Levothyroxine Sodium (Synthroid) 50 mcg BEFORE BREAKFAST PO Last administered on 08/12/18 07:36; Admin Dose 50 MCG; Start 08/03/18 at 07:00 Nortriptyline HCl (Aventyl) 10 mg TID PO Last administered on 08/12/18 09:07; Admin Dose 10 MG; Start 08/02/18 at 21:00 Sevelamer Carbonate (Renvela) 0.8 gm AC MEALS PO Last administered on 08/12/18 11:57; Admin Dose 0.8 GM; Start 08/02/18 at 17:30 Midodrine (Proamatine) 5 mg ON DIALYSIS DAYS PO Last administered on 08/12/18 09:34; Admin Dose 5 MG; Start 08/02/18 at 18:00 Insulin Glargine (Lantus) 15 units DAILY@0800 SC Last administered on 08/12/18 07:43; Admin Dose 15 UNITS; Start 08/03/18 at 12:00 Morphine Sulfate (morphine) 6 mg Q4H PRN PO SEVERE PAIN LEVEL 7-10; Start 08/06/18 at 23:30 Albumin Human 100 ml @ 100 mls/hr WITH DIALYSIS PRN IV SBP <90 DURING DIALYSIS Last administered on 08/12/18at 09:17; Admin Dose 100 MLS/HR; Start 08/07/18 at 10:00 Gabapentin (Neurontin) 100 mg DAILY PO Last administered on 08/12/18at 09:06; Admin Dose 100 MG; Start 08/07/18 at 11:30 Phenol (Cepastat Lozenge) 1 lozenge Q1H PRN MT COUGH Last administered on 08/08/18at 02:34; Admin Dose 1 LOZENGE; Start 08/07/18 at 23:00 Polyethylene Glycol (Miralax) 17 gm DAILY PRN PO CONSTIPATION; Start 08/11/18 at 11:00 VTE Prophylaxis Risk score (from Ns)>0 risk: 9 SCD applied (from Ns): No SCD contraindication: other Lines/Catheters IV Catheter Type: Blevins in Place: No Assessment/Plan Hospital Course Subjective No acute complaints Objective Physical exam General: Patient is laying in bed and answers questions appropriately Mentation: Patient is alert and oriented 4, Head: Normocephalic atraumatic Eyes: EOMI, pupils reactive to light Neck: Supple, nontender, midline Respiratory: Clear to auscultation bilaterally Cardiovascular: regular rate, no obvious murmurs Gastrointestinal: non-tender to palpation, bowel sounds heard. Neurological: Moves all extremities spontaneously Skin: No new skin lesions Assessment/Plan 1. Colonic mass at the splenic flexure and ascending colon - Discussed plans with Dr. Meneses, colorectal surgeon, who will coordinate surgical intervention with the team. Tentatively plan for late Sun or based on OR time etc Dr. Swartz and Dr. Pimentel made aware of tentative surgical plan. - GI on board and appreciate recommendations. 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 Cam on board and appreciate recommendations. - Cardiology consultation appreciated and medically optimized for surgical intervention. will need PPM either reprogrammed or magnet placed 2. End-stage renal disease on HD - Nephrology on board for HD management and appreciate recommendations 3. Diabetes - A1c noted - counseled about importance of diet choices and glucose control - Continue Lantus and ISS 4. Esophagitis - Continue PPI 5. Hypothyroidism - Continue home Synthroid 6. Persistent cough - improvement with Gabapentin 7. Nonischemic CM - pacer in place - Chronic per outpatient [employer] 8. Mild acute on chronic systolic HF - fluid removal during HD 9. Disposition - Surgery tentatively scheduled for Sun or and Dr. Frost will plan to set the date soon. Nephrology and Cardiology made aware. Okay to continue soft low residual diet and make sure has daily BMs DULCE GALINDO Aug 12, 2018 12:25
--- NOTE | 2018-08-12 16:33 | CONS ---
Assessment/Plan Assessment/Plan Hospital Course (Demo Recall) Pre-operative evaluation: The pt is to undergo intermediate risk surgery. He is not very active at baseline so functional capacity is difficult to determine. However no chest pain and no CAD. Euvolemic now. After discussion with his primary weather forecaster, his cardiomyopathy is nonischemic. He is at high risk for surgery but not prohibitive. Acute on chronic systolic CHF: euvolemic Non-ischemic Cardiomyopathy PPM: [employer] 05/04. For ?complete heart block as 100% v paced Pulm HTN: PAP 60s by echo Mild-moderate aortic stenosis Colon cancer: being evaluated for colectomy ESRD on HD -check bilateral upper extremity doppler to r/o DVT though low likelihood -currently optimized for surgery -if surgery is planned, he will need the PPM reprogrammed or a magnet placed as he is pacer dependent -would like to initiate coreg on non dialysis days but with upcoming surgery, would not want to initiate negative inotrope until after -HD per nephrology for volume management Consultation Date/Type/Reason Admit Date/Time Aug 02, 2018 at 10:57 Initial Consult Date 08/08/18 Type of Consult Cardiology Requesting Provider: JO HURST MD Date/Time of Note DATE: 08/12/18 TIME: 16:31 24 HR Interval Summary Free Text/Dictation No events. Had HD this am. Another daughter at bedside today. Noticed worsening swelling in bilateral arms but not legs. Notes that pt's cough has been chronic for 3 yrs. Exam/Review of Systems Exam Vitals Vital Signs Date Temp Pulse Resp B/P (MAP) Pulse Ox O2 O2 Flow FiO2 Time Delivery Rate 08/12/18 94 16:01 08/12/18 97.6 16 112/57 94 15:39 (75) 08/12/18 Room Air 08:00 Intake and Output 08/11/18 08/11/18 08/12/18 1515:00 23:00 07:00 IntakeIntake Total 360 ml 340 ml 350 ml BalanceBalance 360 ml 340 ml 350 ml Constitutional: alert, oriented Psych: no complaints, nl mood/affect Neck: supple; No jvd Respiratory: diminished breath sounds; No clear to auscultation Cardiovascular: regular rate and rhythm, edema (upper arms ) Gastrointestinal: soft, non-tender; No distended Neurological: nl mental status, nl speech Results Result Diagram: 08/12/18 0540 08/12/18 0540 Results 24hrs Laboratory Tests Test 08/11/18 17:34 08/11/18 20:29 08/12/18 02:26 08/12/18 05:40 Bedside Glucose 226 H 186 121 White Blood Count 9.3 Red Blood Count 3.21 L Hemoglobin 9.9 L Hematocrit 31.8 L Mean Corpuscular 99.1 Volume Mean Corpuscular 30.8 Hemoglobin Mean Corpuscular 31.1 L Hemoglobin Concent Red Cell 16.4 H Distribution Width Platelet Count 143 Mean Platelet Volume 11.7 H Immature 0.300 Granulocytes % Neutrophils % 68.5 Lymphocytes % 15.0 Monocytes % 12.2 H Eosinophils % 3.1 Basophils % 0.9 Nucleated Red Blood 0.0 Cells % Immature 0.030 Granulocytes # Neutrophils # 6.4 Lymphocytes # 1.4 Monocytes # 1.1 H Eosinophils # 0.3 Basophils # 0.1 Nucleated Red Blood 0.0 Cells # Sodium Level 137 Potassium Level 4.6 Chloride Level 97 Carbon Dioxide Level 29 Anion Gap 11 Blood Urea Nitrogen 40 #H Creatinine 7.69 H Glucose Level 81 # Calcium Level 8.0 L Phosphorus Level 5.9 H Magnesium Level 1.8 Albumin 2.7 L Test 08/12/18 07:35 08/12/18 11:55 Bedside Glucose 88 96 Medications Medication Current Medications IV Flush (NS 3 ml) 3 ml PER PROTOCOL IV ; Start 08/02/18 at 13:00 Ondansetron HCl (Zofran Inj) 4 mg Q6H PRN IV NAUSEA/VOMITING; Start 08/02/18 at 13:00 Acetaminophen (Tylenol Tab) 650 mg Q6H PRN PO .PAIN 1-3 OR TEMP Last administered on 08/06/18at 12:57; Admin Dose 650 MG; Start 08/02/18 at 13:00 Acetaminophen/ Hydrocodone Bitart ([place] (5/325)) 1 tab Q6H PRN PO .MOD PAIN 4- 6; Start 08/02/18 at 13:00 Docusate Sodium (Colace) 100 mg Q12H PRN PO .CONSTIPATION; Start 08/02/18 at 13:00 Zolpidem Tartrate (Ambien) 5 mg QHS PRN PO .INSOMNIA; Start 08/02/18 at 13:00 Famotidine (Pepcid) 20 mg DAILY PO Last administered on 08/12/18 09:06; Admin Dose 20 MG; Start 08/02/18 at 21:00 Diagnostic Test (Pha) (Accu-Chek) 1 ea 02 XX Last administered on 08/08/18 02:36; Admin Dose 1 EA; Start 08/03/18 at 02:00 Insulin Aspart (Novolog Insulin Pen) NOVOLOG *MILD* ALGORITHM WITH MEALS BEDTIME SC Last administered on 08/11/18 20:46; Admin Dose 1 UNIT; Start 08/02/18 at 18:00 Miscellaneous Information 1 ea NOTE XX ; Start 08/02/18 at 13:30 Glucose (Glutose) 15 gm Q15M PRN PO DECREASED GLUCOSE; Start 08/02/18 at 13:30 Glucose (Glutose) 22.5 gm Q15M PRN PO DECREASED GLUCOSE; Start 08/02/18 at 13:30 Dextrose (D50w Syringe) 25 ml Q15M PRN IV DECREASED GLUCOSE; Start 08/02/18 at 13:30 Dextrose (D50w Syringe) 50 ml Q15M PRN IV DECREASED GLUCOSE; Start 08/02/18 at 13:30 Glucagon (Glucagen) 1 mg Q15M PRN IM DECREASED GLUCOSE; Start 08/02/18 at 13:30 Glucose (Glutose) 15 gm Q15M PRN BUCCAL DECREASED GLUCOSE; Start 08/02/18 at 13:30 Cholecalciferol (Vitamin D) 1,000 unit DAILY PO Last administered on 08/12/18 09:06; Admin Dose 1,000 UNIT; Start 08/03/18 at 09:00 Folic Acid (Folic Acid) 1 mg DAILY PO Last administered on 08/12/18 09:06; Admin Dose 1 MG; Start 08/03/18 at 09:00 Levothyroxine Sodium (Synthroid) 50 mcg BEFORE BREAKFAST PO Last administered on 08/12/18 07:36; Admin Dose 50 MCG; Start 08/03/18 at 07:00 Nortriptyline HCl (Aventyl) 10 mg TID PO Last administered on 08/12/18 12:31; Admin Dose 10 MG; Start 08/02/18 at 21:00 Sevelamer Carbonate (Renvela) 0.8 gm AC MEALS PO Last administered on 08/12/18 11:57; Admin Dose 0.8 GM; Start 08/02/18 at 17:30 Midodrine (Proamatine) 5 mg ON DIALYSIS DAYS PO Last administered on 08/12/18 09:34; Admin Dose 5 MG; Start 08/02/18 at 18:00 Insulin Glargine (Lantus) 15 units DAILY@0800 SC Last administered on 08/12/18 07:43; Admin Dose 15 UNITS; Start 08/03/18 at 12:00 Morphine Sulfate (morphine) 6 mg Q4H PRN PO SEVERE PAIN LEVEL 7-10; Start 08/06/18 at 23:30 Albumin Human 100 ml @ 100 mls/hr WITH DIALYSIS PRN IV SBP <90 DURING DIALYSIS Last administered on 08/12/18 09:17; Admin Dose 100 MLS/HR; Start 08/07/18 at 10:00 Gabapentin (Neurontin) 100 mg DAILY PO Last administered on 08/12/18 09:06; Admin Dose 100 MG; Start 08/07/18 at 11:30 Phenol (Cepastat Lozenge) 1 lozenge Q1H PRN MT COUGH Last administered on 08/08/18 02:34; Admin Dose 1 LOZENGE; Start 08/07/18 at 23:00 Polyethylene Glycol (Miralax) 17 gm DAILY PRN PO CONSTIPATION; Start 08/11/18 at 11:00 LUCRETIA QUEEN Aug 12, 2018 16:33
[2018-08-13] VITALS (12 sets, daily range): BP systolic 97–112; BP diastolic 48–55; PULSE 91–112; RESP 16
[2018-08-13] MEDS: ACCU-CHEK XX SCH (02:00)
[2018-08-13] MEDS: LEVOTHYROXINE 50 MCG TAB PO SCH (06:05)
[2018-08-13] MEDS: INSULIN ASPART [NOVOLOG] 3 ML PEN SC SCH ×4 (07:54→20:44)
[2018-08-13] MEDS: INSULIN GLARGINE [LANTus] (100 UNITS/ML) SYG SC SCH (08:12)
[2018-08-13] MEDS: SEVELAMER CARBONATE 0.8 GM PKT PO SCH ×3 (08:12→17:48)
[2018-08-13] MEDS: GABAPENTIN 100 MG CAP PO SCH (09:07)
[2018-08-13] MEDS: FAMOTIDINE 20 MG TAB PO SCH (09:07)
[2018-08-13] MEDS: CHOLECALCIFEROL 1,000 UNIT TAB PO SCH (09:07)
[2018-08-13] MEDS: FOLIC ACID 1 MG TAB PO SCH (09:07)
[2018-08-13] MEDS: NORTRIPTYLINE 10 MG CAP PO SCH ×3 (09:07→20:44)
--- NOTE | 2018-08-13 10:11 | CONS ---
Assessment/Plan Assessment/Plan Hospital Course (Demo Recall) Pre-operative evaluation: The pt is to undergo intermediate risk surgery. He is not very active at baseline so functional capacity is difficult to determine. However no chest pain and no CAD. Euvolemic now. After discussion with his primary high lead yarder, his cardiomyopathy is nonischemic. He is at high risk for surgery but not prohibitive. Right upper extremity DVT: has a midline. Will likely need anticoagulation but surgery is tomorrow and anticoagulating may lead to bleeding from the colon masses. In terms of the catheter, he does not have any other IV access. After discussing with Dr. Boyle, the decision was to keep the catheter in place for now and consider anticoagulation after surgery. Acute on chronic systolic CHF: euvolemic Non-ischemic Cardiomyopathy PPM: [employer] 05/04. For ?complete heart block as 100% v paced Pulm HTN: PAP 60s by echo Mild-moderate aortic stenosis Colon cancer: being evaluated for colectomy ESRD on HD -currently optimized for surgery. Planned for surgery tomorrow at 5 pm. -I will contact [employer] to reprogram the PPM for surgery -HD per nephrology for volume management Consultation Date/Type/Reason Admit Date/Time Aug 02, 2018 at 10:57 Initial Consult Date 08/08/18 Type of Consult Cardiology Requesting Provider: JO HURST MD Date/Time of Note DATE: 08/13/18 TIME: 10:06 24 HR Interval Summary Free Text/Dictation US showed right DVT and left superficial thrombus. Otherwise no events. No complaints. Surgery scheduled for tomorrow. Exam/Review of Systems Exam Vitals Vital Signs Date Temp Pulse Resp B/P (MAP) Pulse Ox O2 O2 Flow FiO2 Time Delivery Rate 08/13/18 95 08:01 08/13/18 97.4 16 104/53 96 07:28 (70) 08/12/18 Room Air 08:00 Intake and Output 08/12/18 08/12/18 08/13/18 1515:00 23:00 07:00 IntakeIntake Total 240 ml 560 ml 120 ml OutputOutput Total 800 ml BalanceBalance -560 ml 560 ml 120 ml Constitutional: alert, oriented Head: normocephalic, atraumatic Neck: supple; No jvd Respiratory: clear to auscultation Cardiovascular: regular rate and rhythm, edema (1+ upper extremities ) Gastrointestinal: soft, non-tender; No distended Neurological: nl mental status, nl speech Results Result Diagram: 08/13/18 0608/13/18 0601 Results 24hrs Laboratory Tests Test 08/12/18 11:55 08/12/18 17:35 08/12/18 21:06 08/13/18 06:01 Bedside Glucose 96 181 176 White Blood Count 8.4 Red Blood Count 3.07 L Hemoglobin 9.5 L Hematocrit 31.1 L Mean Corpuscular 101.3 H Volume Mean Corpuscular 30.9 Hemoglobin Mean Corpuscular 30.5 L Hemoglobin Concent Red Cell 16.4 H Distribution Width Platelet Count 134 L Mean Platelet Volume 11.9 H Immature 0.700 H Granulocytes % Neutrophils % 69.6 Segmented 77 Neutrophils % (Manual) Lymphocytes % 13.9 L Lymphocytes % 11 L (Manual) Reactive Lymphocytes 1 H % (Manual) Monocytes % 12.7 H Monocytes % (Manual) 10 Eosinophils % 2.4 Eosinophils % 1 (Manual) Basophils % 0.7 Nucleated Red Blood 0.0 Cells % Immature 0.060 H Granulocytes # Neutrophils # 5.9 Lymphocytes (Manual) 0.9 Lymphocytes # 1.2 Reactive Lymphocytes 0.0 # Monocytes # 1.1 H Monocytes # (Manual) 0.8 Eosinophils # 0.2 Basophils # 0.1 Nucleated Red Blood 0.0 Cells # Platelet Estimate DECREASED Polychromasia 2+ Hypochromasia 1+ Poikilocytosis 1+ Anisocytosis 1+ Macrocytosis 1+ Sodium Level 138 Potassium Level 4.3 Chloride Level 97 Carbon Dioxide Level 31 Anion Gap 10 Blood Urea Nitrogen 29 #H Creatinine 5.35 #H Est Glomerular Filtrat Rate mL/min Glucose Level 121 # Calcium Level 8.3 L Phosphorus Level 4.3 Magnesium Level 1.9 Test 08/13/18 07:51 Bedside Glucose 131 Medications Medication Current Medications IV Flush (NS 3 ml) 3 ml PER PROTOCOL IV ; Start 08/02/18 at 13:00 Ondansetron HCl (Zofran Inj) 4 mg Q6H PRN IV NAUSEA/VOMITING; Start 08/02/18 at 13:00 Acetaminophen (Tylenol Tab) 650 mg Q6H PRN PO .PAIN 1-3 OR TEMP Last administered on 08/06/18at 12:57; Admin Dose 650 MG; Start 08/02/18 at 13:00 Acetaminophen/ Hydrocodone Bitart ([place] (5/325)) 1 tab Q6H PRN PO .MOD PAIN 4- 6; Start 08/02/18 at 13:00 Docusate Sodium (Colace) 100 mg Q12H PRN PO .CONSTIPATION; Start 08/02/18 at 13:00 Zolpidem Tartrate (Ambien) 5 mg QHS PRN PO .INSOMNIA; Start 08/02/18 at 13:00 Famotidine (Pepcid) 20 mg DAILY PO Last administered on 08/13/18at 09:07; Admin Dose 20 MG; Start 08/02/18 at 21:00 Diagnostic Test (Pha) (Accu-Chek) 1 ea 02 XX Last administered on 08/08/18at 02:36; Admin Dose 1 EA; Start 08/03/18 at 02:00 Insulin Aspart (Novolog Insulin Pen) NOVOLOG *MILD* ALGORITHM WITH MEALS BEDTIME SC Last administered on 08/12/18at 17:43; Admin Dose 2 UNIT; Start 08/02/18 at 18:00 Miscellaneous Information 1 ea NOTE XX ; Start 08/02/18 at 13:30 Glucose (Glutose) 15 gm Q15M PRN PO DECREASED GLUCOSE; Start 08/02/18 at 13:30 Glucose (Glutose) 22.5 gm Q15M PRN PO DECREASED GLUCOSE; Start 08/02/18 at 13:30 Dextrose (D50w Syringe) 25 ml Q15M PRN IV DECREASED GLUCOSE; Start 08/02/18 at 13:30 Dextrose (D50w Syringe) 50 ml Q15M PRN IV DECREASED GLUCOSE; Start 08/02/18 at 13:30 Glucagon (Glucagen) 1 mg Q15M PRN IM DECREASED GLUCOSE; Start 08/02/18 at 13:30 Glucose (Glutose) 15 gm Q15M PRN BUCCAL DECREASED GLUCOSE; Start 08/02/18 at 13:30 Cholecalciferol (Vitamin D) 1,000 unit DAILY PO Last administered on 08/13/18at 09:07; Admin Dose 1,000 UNIT; Start 08/03/18 at 09:00 Folic Acid (Folic Acid) 1 mg DAILY PO Last administered on 08/13/18at 09:07; Admin Dose 1 MG; Start 08/03/18 at 09:00 Levothyroxine Sodium (Synthroid) 50 mcg BEFORE BREAKFAST PO Last administered on 08/13/18 06:05; Admin Dose 50 MCG; Start 08/03/18 at 07:00 Nortriptyline HCl (Aventyl) 10 mg TID PO Last administered on 08/13/18 09:07; Admin Dose 10 MG; Start 08/02/18 at 21:00 Sevelamer Carbonate (Renvela) 0.8 gm AC MEALS PO Last administered on 08/13/18 08:12; Admin Dose 0.8 GM; Start 08/02/18 at 17:30 Midodrine (Proamatine) 5 mg ON DIALYSIS DAYS PO Last administered on 08/12/18 09:34; Admin Dose 5 MG; Start 08/02/18 at 18:00 Insulin Glargine (Lantus) 15 units DAILY@0800 SC Last administered on 08/13/18 08:12; Admin Dose 15 UNITS; Start 08/03/18 at 12:00 Morphine Sulfate (morphine) 6 mg Q4H PRN PO SEVERE PAIN LEVEL 7-10; Start 08/06/18 at 23:30 Albumin Human 100 ml @ 100 mls/hr WITH DIALYSIS PRN IV SBP <90 DURING DIALYSIS Last administered on 08/12/18 09:17; Admin Dose 100 MLS/HR; Start 08/07/18 at 10:00 Gabapentin (Neurontin) 100 mg DAILY PO Last administered on 08/13/18 09:07; Admin Dose 100 MG; Start 08/07/18 at 11:30 Phenol (Cepastat Lozenge) 1 lozenge Q1H PRN MT COUGH Last administered on 08/08/18 02:34; Admin Dose 1 LOZENGE; Start 08/07/18 at 23:00 Polyethylene Glycol (Miralax) 17 gm DAILY PRN PO CONSTIPATION; Start 08/11/18 at 11:00 LUCRETIA QUEEN Aug 13, 2018 10:11
--- NOTE | 2018-08-13 12:53 | PN ---
Date/Time of Note Date/Time of Note DATE: 08/13/18 TIME: 12:49 Objective Vitals Vital Signs Date Temp Pulse Resp B/P (MAP) Pulse Ox O2 O2 Flow FiO2 Time Delivery Rate 08/13/18 97.4 94 16 97/53 (68) 96 11:07 08/12/18 Room Air 08:00 Intake and Output 08/12/18 08/12/18 08/13/18 1515:00 23:00 07:00 IntakeIntake Total 240 ml 560 ml 120 ml OutputOutput Total 800 ml BalanceBalance -560 ml 560 ml 120 ml Results Result Diagram: 08/13/18 0601 08/13/18 0601 Medications Medications Current Medications IV Flush (NS 3 ml) 3 ml PER PROTOCOL IV ; Start 08/02/18 at 13:00 Ondansetron HCl (Zofran Inj) 4 mg Q6H PRN IV NAUSEA/VOMITING; Start 08/02/18 at 13:00 Acetaminophen (Tylenol Tab) 650 mg Q6H PRN PO .PAIN 1-3 OR TEMP Last administered on 08/06/18at 12:57; Admin Dose 650 MG; Start 08/02/18 at 13:00 Acetaminophen/ Hydrocodone Bitart ([place] (5/325)) 1 tab Q6H PRN PO .MOD PAIN 4- 6; Start 08/02/18 at 13:00 Docusate Sodium (Colace) 100 mg Q12H PRN PO .CONSTIPATION; Start 08/02/18 at 13:00 Zolpidem Tartrate (Ambien) 5 mg QHS PRN PO .INSOMNIA; Start 08/02/18 at 13:00 Famotidine (Pepcid) 20 mg DAILY PO Last administered on 08/13/18at 09:07; Admin Dose 20 MG; Start 08/02/18 at 21:00 Diagnostic Test (Pha) (Accu-Chek) 1 ea 02 XX Last administered on 08/08/18at 02:36; Admin Dose 1 EA; Start 08/03/18 at 02:00 Insulin Aspart (Novolog Insulin Pen) NOVOLOG *MILD* ALGORITHM WITH MEALS BEDTIME SC Last administered on 08/12/18at 17:43; Admin Dose 2 UNIT; Start 08/02/18 at 18:00 Miscellaneous Information 1 ea NOTE XX ; Start 08/02/18 at 13:30 Glucose (Glutose) 15 gm Q15M PRN PO DECREASED GLUCOSE; Start 08/02/18 at 13:30 Glucose (Glutose) 22.5 gm Q15M PRN PO DECREASED GLUCOSE; Start 08/02/18 at 13:30 Dextrose (D50w Syringe) 25 ml Q15M PRN IV DECREASED GLUCOSE; Start 08/02/18 at 13:30 Dextrose (D50w Syringe) 50 ml Q15M PRN IV DECREASED GLUCOSE; Start 08/02/18 at 13:30 Glucagon (Glucagen) 1 mg Q15M PRN IM DECREASED GLUCOSE; Start 08/02/18 at 13:30 Glucose (Glutose) 15 gm Q15M PRN BUCCAL DECREASED GLUCOSE; Start 08/02/18 at 13:30 Cholecalciferol (Vitamin D) 1,000 unit DAILY PO Last administered on 08/13/18 09:07; Admin Dose 1,000 UNIT; Start 08/03/18 at 09:00 Folic Acid (Folic Acid) 1 mg DAILY PO Last administered on 08/13/18 09:07; Admin Dose 1 MG; Start 08/03/18 at 09:00 Levothyroxine Sodium (Synthroid) 50 mcg BEFORE BREAKFAST PO Last administered on 08/13/18 06:05; Admin Dose 50 MCG; Start 08/03/18 at 07:00 Nortriptyline HCl (Aventyl) 10 mg TID PO Last administered on 08/13/18 09:07; Admin Dose 10 MG; Start 08/02/18 at 21:00 Sevelamer Carbonate (Renvela) 0.8 gm AC MEALS PO Last administered on 08/13/18 08:12; Admin Dose 0.8 GM; Start 08/02/18 at 17:30 Midodrine (Proamatine) 5 mg ON DIALYSIS DAYS PO Last administered on 08/12/18 09:34; Admin Dose 5 MG; Start 08/02/18 at 18:00 Insulin Glargine (Lantus) 15 units DAILY@0800 SC Last administered on 08/13/18at 08:12; Admin Dose 15 UNITS; Start 08/03/18 at 12:00 Morphine Sulfate (morphine) 6 mg Q4H PRN PO SEVERE PAIN LEVEL 7-10; Start 08/06/18 at 23:30 Albumin Human 100 ml @ 100 mls/hr WITH DIALYSIS PRN IV SBP <90 DURING DIALYSIS Last administered on 08/12/18at 09:17; Admin Dose 100 MLS/HR; Start 08/07/18 at 10:00 Gabapentin (Neurontin) 100 mg DAILY PO Last administered on 08/13/18at 09:07; Admin Dose 100 MG; Start 08/07/18 at 11:30 Phenol (Cepastat Lozenge) 1 lozenge Q1H PRN MT COUGH Last administered on 08/08/18at 02:34; Admin Dose 1 LOZENGE; Start 08/07/18 at 23:00 Polyethylene Glycol (Miralax) 17 gm DAILY PRN PO CONSTIPATION; Start 08/11/18 at 11:00 Sodium Chloride 1,000 ml @ 40 mls/hr Q24H IV ; Start 08/13/18 at 13:00 VTE Prophylaxis Risk score (from Ns)>0 risk: 6 SCD applied (from [facility] [place]): No SCD contraindication: other Lines/Catheters IV Catheter Type: Blevins in Place: No Assessment/Plan Hospital Course Subjective No acute complaints Objective Physical exam General: Patient is laying in bed and answers questions appropriately Mentation: Patient is alert and oriented 4, Head: Normocephalic atraumatic Eyes: EOMI, pupils reactive to light Neck: Supple, nontender, midline Respiratory: Clear to auscultation bilaterally Cardiovascular: regular rate, no obvious murmurs Gastrointestinal: non-tender to palpation, bowel sounds heard. Neurological: Moves all extremities spontaneously Skin: No new skin lesions Assessment/Plan Colonic mass at the splenic flexure and ascending colon - Discussed plans with Dr. Meneses, colorectal surgeon, who will coordinate surgical intervention with the team. scheduled tomorrow based on OR time etc Dr. Swartz and Dr. Pimentel made aware of tentative surgical plan. - GI on board and appreciate recommendations. 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 Cam on board and appreciate recommendations. - Cardiology consultation appreciated and medically optimized for surgical intervention. will need PPM either reprogrammed or magnet placed End-stage renal disease on HD - Nephrology on board for HD management and appreciate recommendations GI bleed -2/2 to above mass Arm swelling --Ultrasound showed right brachial DVT as well as thrombosis of the left cephalic vein. Patient has 0 symptoms at this time. Discussed with patient and his family, that upper extremity DVTs are usually treated conservatively unless symptomatic. Patient has no discomfort at this time. Patient's midline on his right arm is the likely culprit for the DVT on his right brachial vein, however it is still patent and has no other IV access due to patient being a very hard stick, patient will need to continue have IV axis until his surgery tomorrow, as coordinated with nursing staff to alert anesthesia to insert central venous catheter and subsequently remove right arm midline before surgery. At any rate even with symptoms, anticoagulation at this rate would cause worsening bleeding of his current GI bleed due to masses and is likely a contraindication, will re- consider anticoagulation after surgery has cleared patient in the next few days the patient may be at a hypercoagulable state due to his cancer. But we will revisit after surgery and after GI bleeding has stabilized.. Diabetes - A1c noted - counseled about importance of diet choices and glucose control - Continue Lantus and ISS Esophagitis - Continue PPI Hypothyroidism - Continue home Synthroid Persistent cough - improvement with Gabapentin Nonischemic CM - pacer in place - Chronic per outpatient Patient Intake Coordinator Mild acute on chronic systolic HF - fluid removal during HD Disposition - surg tomorrow 5pm, yi, COLINO after 8AM on 08/14/18 DULCE GALINDO Aug 13, 2018 12:53
[2018-08-13] MEDS ORDERED: SOD CHLORIDE 0.45% 1,000 ML IV SCH (13:00)
--- NOTE | 2018-08-13 13:19 | CONS ---
Assessment/Plan Assessment/Plan Assessment/Plan (Daily) End-stage renal disease, on hemodialysis,mwf with mild CHF 2. 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 Hypotension. 4. History of congestive heart failure. 5. Hypercholesterolemia. 6. Total hip replacement. 7. Leukocytosis. 8. Hypoglycemia. 9. MAcrocytic hypochromic Anemia mixed etiology, recent blood loss and 2/2 kidney disease 10. Hypothyroidism 11 HCx CAD Plan - HD tomorrow we will schedule it early to have time gap with between the dialysis and surgery -Midodrine on dialysis days -Hemicolectomy tmw -Vascular consult which was already called -Renally Dose all meds -Avoid nephrotoxic agents. Consultation Date/Type/Reason Admit Date/Time Aug 02, 2018 at 10:57 Initial Consult Date 08/03/18 Requesting Provider: JO HURST MD Date/Time of Note DATE: 08/13/18 TIME: 13:16 24 HR Interval Summary Free Text/Dictation b/ateral arms are swollen. Ultrasound shows positive for DVT in the right arm, plus cephalic vein on the left Exam/Review of Systems Exam Vitals Vital Signs Date Temp Pulse Resp B/P (MAP) Pulse Ox O2 O2 Flow FiO2 Time Delivery Rate 08/13/18 97.4 94 16 97/53 (68) 96 11:07 08/12/18 Room Air 08:00 Intake and Output 08/12/18 08/12/18 08/13/18 1515:00 23:00 07:00 IntakeIntake Total 240 ml 560 ml 120 ml OutputOutput Total 800 ml BalanceBalance -560 ml 560 ml 120 ml Exam xam Respiratory: diminished breath sounds R>L Cardiovascular: regular rate and rhythm Gastrointestinal: soft, bowel sounds (+) Extremities: No edema hero graft Results Result Diagram: 08/13/18 0608/13/18 06 Results 24hrs Laboratory Tests Test 08/12/18 17:35 08/12/18 21:06 08/13/18 06:01 08/13/18 07:51 Bedside Glucose 181 176 131 White Blood Count 8.4 Red Blood Count 3.07 L Hemoglobin 9.5 L Hematocrit 31.1 L Mean Corpuscular 101.3 H Volume Mean Corpuscular 30.9 Hemoglobin Mean Corpuscular 30.5 L Hemoglobin Concent Red Cell 16.4 H Distribution Width Platelet Count 134 L Mean Platelet Volume 11.9 H Immature 0.700 H Granulocytes % Neutrophils % 69.6 Segmented 77 Neutrophils % (Manual) Lymphocytes % 13.9 L Lymphocytes % 11 L (Manual) Reactive Lymphocytes 1 H % (Manual) Monocytes % 12.7 H Monocytes % (Manual) 10 Eosinophils % 2.4 Eosinophils % 1 (Manual) Basophils % 0.7 Nucleated Red Blood 0.0 Cells % Immature 0.060 H Granulocytes # Neutrophils # 5.9 Lymphocytes (Manual) 0.9 Lymphocytes # 1.2 Reactive Lymphocytes 0.0 # Monocytes # 1.1 H Monocytes # (Manual) 0.8 Eosinophils # 0.2 Basophils # 0.1 Nucleated Red Blood 0.0 Cells # Platelet Estimate DECREASED Polychromasia 2+ Hypochromasia 1+ Poikilocytosis 1+ Anisocytosis 1+ Macrocytosis 1+ Sodium Level 138 Potassium Level 4.3 Chloride Level 97 Carbon Dioxide Level 31 Anion Gap 10 Blood Urea Nitrogen 29 #H Creatinine 5.35 #H Est Glomerular Filtrat Rate mL/min Glucose Level 121 # Calcium Level 8.3 L Phosphorus Level 4.3 Magnesium Level 1.9 Test 08/13/18 12:06 Bedside Glucose 182 Medications Medication Current Medications IV Flush (NS 3 ml) 3 ml PER PROTOCOL IV ; Start 08/02/18 at 13:00 Ondansetron HCl (Zofran Inj) 4 mg Q6H PRN IV NAUSEA/VOMITING; Start 08/02/18 at 13:00 Acetaminophen (Tylenol Tab) 650 mg Q6H PRN PO .PAIN 1-3 OR TEMP Last administered on 08/06/18at 12:57; Admin Dose 650 MG; Start 08/02/18 at 13:00 Acetaminophen/ Hydrocodone Bitart ([place] (5/325)) 1 tab Q6H PRN PO .MOD PAIN 4- 6; Start 08/02/18 at 13:00 Docusate Sodium (Colace) 100 mg Q12H PRN PO .CONSTIPATION; Start 08/02/18 at 13:00 Zolpidem Tartrate (Ambien) 5 mg QHS PRN PO .INSOMNIA; Start 08/02/18 at 13:00 Famotidine (Pepcid) 20 mg DAILY PO Last administered on 08/13/18 09:07; Admin Dose 20 MG; Start 08/02/18 at 21:00 Diagnostic Test (Pha) (Accu-Chek) 1 ea 02 XX Last administered on 08/08/18at 0 2:36; Admin Dose 1 EA; Start 08/03/18 at 02:00 Insulin Aspart (Novolog Insulin Pen) NOVOLOG *MILD* ALGORITHM WITH MEALS BEDTIME SC Last administered on 08/13/18 12:12; Admin Dose 2 UNIT; Start 07/19 11/03 at 18:00 Miscellaneous Information 1 ea NOTE XX ; Start 08/02/18 at 13:30 Glucose (Glutose) 15 gm Q15M PRN PO DECREASED GLUCOSE; Start 08/02/18 at 13:30 Glucose (Glutose) 22.5 gm Q15M PRN PO DECREASED GLUCOSE; Start 08/02/18 at 13:30 Dextrose (D50w Syringe) 25 ml Q15M PRN IV DECREASED GLUCOSE; Start 08/02/18 at 13:30 Dextrose (D50w Syringe) 50 ml Q15M PRN IV DECREASED GLUCOSE; Start 08/02/18 at 13:30 Glucagon (Glucagen) 1 mg Q15M PRN IM DECREASED GLUCOSE; Start 08/02/18 at 13:30 Glucose (Glutose) 15 gm Q15M PRN BUCCAL DECREASED GLUCOSE; Start 08/02/18 at 13:30 Cholecalciferol (Vitamin D) 1,000 unit DAILY PO Last administered on 08/13/18 09:07; Admin Dose 1,000 UNIT; Start 08/03/18 at 09:00 Folic Acid (Folic Acid) 1 mg DAILY PO Last administered on 08/13/18 09:07; Admin Dose 1 MG; Start 08/03/18 at 09:00 Levothyroxine Sodium (Synthroid) 50 mcg BEFORE BREAKFAST PO Last administered on 08/13/18 06:05; Admin Dose 50 MCG; Start 08/03/18 at 07:00 Nortriptyline HCl (Aventyl) 10 mg TID PO Last administered on 08/13/18 09:07; Admin Dose 10 MG; Start 08/02/18 at 21:00 Sevelamer Carbonate (Renvela) 0.8 gm AC MEALS PO Last administered on 08/13/18 11:20; Admin Dose 0.8 GM; Start 08/02/18 at 17:30 Midodrine (Proamatine) 5 mg ON DIALYSIS DAYS PO Last administered on 08/12/18 09:34; Admin Dose 5 MG; Start 08/02/18 at 18:00 Insulin Glargine (Lantus) 15 units DAILY@0800 SC Last administered on 08/13/18 08:12; Admin Dose 15 UNITS; Start 08/03/18 at 12:00 Morphine Sulfate (morphine) 6 mg Q4H PRN PO SEVERE PAIN LEVEL 7-10; Start 08/06/18 at 23:30 Albumin Human 100 ml @ 100 mls/hr WITH DIALYSIS PRN IV SBP <90 DURING DIALYSIS Last administered on 08/12/18 09:17; Admin Dose 100 MLS/HR; Start 08/07/18 at 10:00 Gabapentin (Neurontin) 100 mg DAILY PO Last administered on 08/13/18 09:07; Admin Dose 100 MG; Start 08/07/18 at 11:30 Phenol (Cepastat Lozenge) 1 lozenge Q1H PRN MT COUGH Last administered on 08/08/18at 02:34; Admin Dose 1 LOZENGE; Start 08/07/18 at 23:00 Polyethylene Glycol (Miralax) 17 gm DAILY PRN PO CONSTIPATION; Start 08/11/18 at 11:00 Sodium Chloride 1,000 ml @ 40 mls/hr Q24H IV ; Start 08/13/18 at 13:00 NNEKA FRITZ MD Aug 13, 2018 13:19
[2018-08-13] MEDS ORDERED: POLYETHYLENE GLYCOL 3350 119 GM POWDER PO ONE (16:30)
[2018-08-14] VITALS (27 sets, daily range): BP systolic 94–135; BP diastolic 33–94; PULSE 70–111; RESP 16–21
[2018-08-14] MEDS: ACCU-CHEK XX SCH (02:00)
[2018-08-14] MEDS: LEVOTHYROXINE 50 MCG TAB PO SCH (06:46)
[2018-08-14] MEDS: SEVELAMER CARBONATE 0.8 GM PKT PO SCH ×3 (06:46→17:25)
[2018-08-14] MEDS ORDERED: DEXAMETHASONE 4 MG/ML 5 ML INJ ONE (07:00)
[2018-08-14] MEDS ORDERED: DESFLURANE 15 MIN ONE (07:00)
[2018-08-14] MEDS: DEXTROSE 50% 50 ML SYRINGE IV PRN (07:35)
[2018-08-14] MEDS: INSULIN ASPART [NOVOLOG] 3 ML PEN SC SCH ×3 (07:44→17:55)
[2018-08-14] MEDS: INSULIN GLARGINE [LANTus] (100 UNITS/ML) SYG SC SCH (08:00)
[2018-08-14] MEDS: FAMOTIDINE 20 MG TAB PO SCH (09:00)
[2018-08-14] MEDS: GABAPENTIN 100 MG CAP PO SCH (09:00)
[2018-08-14] MEDS: FOLIC ACID 1 MG TAB PO SCH (09:00)
[2018-08-14] MEDS: NORTRIPTYLINE 10 MG CAP PO SCH ×2 (09:00→12:42)
[2018-08-14] MEDS: CHOLECALCIFEROL 1,000 UNIT TAB PO SCH (09:00)
--- NOTE | 2018-08-14 09:40 | CONS ---
Assessment/Plan Assessment/Plan Assessment/Plan (Daily) 1 End-stage renal disease, on hemodialysis,mwf with mild CHF 2. 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 Hypotension. On Midodrin at home 4. History of congestive heart failure. 5. Hypercholesterolemia. 6. Total hip replacement. 7. Leukocytosis. 8. Hypoglycemia. 9. MAcrocytic hypochromic Anemia mixed etiology, recent blood loss and 2/2 kidney disease 10. 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 Consultation Date/Type/Reason Admit Date/Time Aug 02, 2018 at 10:57 Initial Consult Date 08/03/18 Requesting Provider: JO HURST MD Date/Time of Note DATE: 08/14/18 TIME: 09:38 24 HR Interval Summary Free Text/Dictation Hypoglycemic this a.m. however sugars have improved now Scheduled for surgery at 5 PM today HD in progress Exam/Review of Systems Exam Vitals Vital Signs Date Temp Pulse Resp B/P (MAP) Pulse Ox O2 O2 Flow FiO2 Time Delivery Rate 08/14/18 91 09:00 08/14/18 20 122/92 94 Room Air 08:07 (102) 08/14/18 98.1 07:41 Intake and Output 08/13/18 08/13/18 08/14/18 1414:59 22:59 06:59 IntakeIntake Total 250 ml BalanceBalance 250 ml Exam Respiratory: diminished breath sounds R>L Cardiovascular: regular rate and rhythm Gastrointestinal: soft, bowel sounds (+) Extremities: b/l arm edema hero graft on left Results Result Diagram: 08/14/18 0625 08/14/18 0625 Results 24hrs Laboratory Tests Test 08/13/18 12:06 08/13/18 17:47 08/13/18 20:43 08/14/18 05:43 Bedside Glucose 182 89 87 Platelet Count 155 Prothrombin Time 14.3 Prothrombin Time 1.1 Ratio INR International 1.10 Normalized Ratio Activated 24.8 Partial Thromboplast Time Thrombin Time 22.3 H Test 08/14/18 06:25 08/14/18 07:33 08/14/18 08:05 08/14/18 08:54 White Blood Count 11.4 #H Red Blood Count 3.30 L Hemoglobin 9.9 L Hematocrit 32.9 L Mean Corpuscular 99.7 Volume Mean Corpuscular 30.0 Hemoglobin Mean Corpuscular 30.1 L Hemoglobin Concent Red Cell 16.5 H Distribution Width Platelet Count 153 Mean Platelet Volume 11.7 H Immature 0.300 Granulocytes % Neutrophils % 78.6 H Lymphocytes % 8.2 L Monocytes % 11.5 H Eosinophils % 0.8 Basophils % 0.6 Nucleated Red Blood 0.0 Cells % Immature 0.040 H Granulocytes # Neutrophils # 9.0 H Lymphocytes # 0.9 Monocytes # 1.3 H Eosinophils # 0.1 Basophils # 0.1 Nucleated Red Blood 0.0 Cells # Sodium Level 140 Potassium Level 4.6 Chloride Level 98 Carbon Dioxide Level 29 Anion Gap 13 Blood Urea Nitrogen 38 H Creatinine 6.53 H Est Glomerular Filtrat Rate mL/min Glucose Level 42 #*L Calcium Level 8.6 Phosphorus Level 5.0 H Magnesium Level 1.9 Bedside Glucose 64 L 112 120 Medications Medication Current Medications IV Flush (NS 3 ml) 3 ml PER PROTOCOL IV ; Start 08/02/18 at 13:00 Ondansetron HCl (Zofran Inj) 4 mg Q6H PRN IV NAUSEA/VOMITING; Start 08/02/18 at 13:00 Acetaminophen (Tylenol Tab) 650 mg Q6H PRN PO .PAIN 1-3 OR TEMP Last administered on 08/06/18at 12:57; Admin Dose 650 MG; Start 08/02/18 at 13:00 Acetaminophen/ Hydrocodone Bitart ([place] (5/325)) 1 tab Q6H PRN PO .MOD PAIN 4- 6; Start 08/02/18 at 13:00 Docusate Sodium (Colace) 100 mg Q12H PRN PO .CONSTIPATION; Start 08/02/18 at 13:00 Zolpidem Tartrate (Ambien) 5 mg QHS PRN PO .INSOMNIA; Start 08/02/18 at 13:00 Famotidine (Pepcid) 20 mg DAILY PO Last administered on 08/13/18at 09:07; Admin Dose 20 MG; Start 08/02/18 at 21:00 Diagnostic Test (Pha) (Accu-Chek) 1 ea 02 XX Last administered on 08/08/18at 02:36; Admin Dose 1 EA; Start 08/03/18 at 02:00 Insulin Aspart (Novolog Insulin Pen) NOVOLOG *MILD* ALGORITHM WITH MEALS BEDTIME SC Last administered on 08/13/18at 12:12; Admin Dose 2 UNIT; Start 08/02/18 at 18:00 Miscellaneous Information 1 ea NOTE XX ; Start 08/02/18 at 13:30 Glucose (Glutose) 15 gm Q15M PRN PO DECREASED GLUCOSE; Start 08/02/18 at 13:30 Glucose (Glutose) 22.5 gm Q15M PRN PO DECREASED GLUCOSE; Start 08/02/18 at 13:30 Dextrose (D50w Syringe) 25 ml Q15M PRN IV DECREASED GLUCOSE Last administered on 08/14/18at 07:35; Admin Dose 25 ML; Start 08/02/18 at 13:30 Dextrose (D50w Syringe) 50 ml Q15M PRN IV DECREASED GLUCOSE; Start 08/02/18 at 13:30 Glucagon (Glucagen) 1 mg Q15M PRN IM DECREASED GLUCOSE; Start 08/02/18 at 13:30 Glucose (Glutose) 15 gm Q15M PRN BUCCAL DECREASED GLUCOSE; Start 08/02/18 at 13:30 Cholecalciferol (Vitamin D) 1,000 unit DAILY PO Last administered on 08/13/18at 09:07; Admin Dose 1,000 UNIT; Start 08/03/18 at 09:00 Folic Acid (Folic Acid) 1 mg DAILY PO Last administered on 08/13/18at 09:07; Admin Dose 1 MG; Start 08/03/18 at 09:00 Levothyroxine Sodium (Synthroid) 50 mcg BEFORE BREAKFAST PO Last administered on 08/14/18 06:46; Admin Dose 50 MCG; Start 08/03/18 at 07:00 Nortriptyline HCl (Aventyl) 10 mg TID PO Last administered on 08/13/18at 20:44; Admin Dose 10 MG; Start 08/02/18 at 21:00 Sevelamer Carbonate (Renvela) 0.8 gm AC MEALS PO Last administered on 08/14/18 06:46; Admin Dose 0.8 GM; Start 08/02/18 at 17:30 Midodrine (Proamatine) 5 mg ON DIALYSIS DAYS PO Last administered on 08/12/18 09:34; Admin Dose 5 MG; Start 08/02/18 at 18:00 Insulin Glargine (Lantus) 15 units DAILY@0800 SC Last administered on 08/14/18 08:00; Admin Dose 15 UNITS; Start 08/03/18 at 12:00 Morphine Sulfate (morphine) 6 mg Q4H PRN PO SEVERE PAIN LEVEL 7-10; Start 08/06/18 at 23:30 Albumin Human 100 ml @ 100 mls/hr WITH DIALYSIS PRN IV SBP <90 DURING DIALYSIS Last administered on 08/12/18 09:17; Admin Dose 100 MLS/HR; Start 08/07/18 at 10:00 Gabapentin (Neurontin) 100 mg DAILY PO Last administered on 08/13/18at 09:07; Admin Dose 100 MG; Start 08/07/18 at 11:30 Phenol (Cepastat Lozenge) 1 lozenge Q1H PRN MT COUGH Last administered on 08/08/18at 02:34; Admin Dose 1 LOZENGE; Start 08/07/18 at 23:00 Polyethylene Glycol (Miralax) 17 gm DAILY PRN PO CONSTIPATION; Start 08/11/18 at 11:00 Sodium Chloride 1,000 ml @ 40 mls/hr Q24H IV ; Start 08/13/18 at 13:00 NNEKA FRITZ MD Aug 14, 2018 09:40
[2018-08-14] MEDS: DEXTROSE 5%-0.45% NACL 1,000 ML IV SCH ×2 (10:30→23:30)
--- NOTE | 2018-08-14 11:53 | CONS ---
Assessment/Plan Assessment/Plan Hospital Course (Demo Recall) Pre-operative evaluation: The pt is to undergo intermediate risk surgery. He is not very active at baseline so functional capacity is difficult to determine. However no chest pain and no CAD. Euvolemic now. 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 He is at high risk for surgery but not prohibitive. Right upper extremity DVT: see prior discussion. No anticoagulation for now Acute on chronic systolic CHF: euvolemic Non-ischemic Cardiomyopathy PPM: [place] 05/04. For ?complete heart block as 100% v paced Pulm HTN: PAP 60s by echo Mild-moderate aortic stenosis Colon cancer: being evaluated for colectomy ESRD on HD -currently optimized for surgery. Planned for surgery today at 5 pm. -PPM reprogrammed to DOO and pt is otherwise ready from cardiac standpoint -HD per nephrology for volume management Consultation Date/Type/Reason Admit Date/Time Aug 02, 2018 at 10:57 Initial Consult Date 08/08/18 Type of Consult Cardiology Requesting Provider: JO HURST MD Date/Time of Note DATE: 08/14/18 TIME: 11:52 24 HR Interval Summary Free Text/Dictation PPM reprogrammed this am. Had HD already Plan for surgery at 5 Exam/Review of Systems Exam Vitals Vital Signs Date Temp Pulse Resp B/P (MAP) Pulse Ox O2 O2 Flow FiO2 Time Delivery Rate 08/14/18 98.3 95 16 109/56 95 11:38 (73) 08/14/18 Room Air 08:07 Intake and Output 08/13/18 08/13/18 08/14/18 1515:00 23:00 07:00 IntakeIntake Total 450 ml 250 ml BalanceBalance 450 ml 250 ml Constitutional: alert, oriented Neck: supple; No jvd Respiratory: diminished breath sounds; No clear to auscultation Cardiovascular: regular rate and rhythm; No edema Gastrointestinal: soft, non-tender; No distended Neurological: nl mental status, nl speech Results Result Diagram: 08/14/18 0625 08/14/18 0625 Results 24hrs Laboratory Tests Test 08/13/18 12:06 08/13/18 17:47 08/13/18 20:43 08/14/18 05:43 Bedside Glucose 182 89 87 Platelet Count 155 Prothrombin Time 14.3 Prothrombin Time 1.1 Ratio INR International 1.10 Normalized Ratio Activated 24.8 Partial Thromboplast Time Thrombin Time 22.3 H Test 08/14/18 06:25 08/14/18 07:33 08/14/18 08:05 08/14/18 08:54 White Blood Count 11.4 #H Red Blood Count 3.30 L Hemoglobin 9.9 L Hematocrit 32.9 L Mean Corpuscular 99.7 Volume Mean Corpuscular 30.0 Hemoglobin Mean Corpuscular 30.1 L Hemoglobin Concent Red Cell 16.5 H Distribution Width Platelet Count 153 Mean Platelet Volume 11.7 H Immature 0.300 Granulocytes % Neutrophils % 78.6 H Lymphocytes % 8.2 L Monocytes % 11.5 H Eosinophils % 0.8 Basophils % 0.6 Nucleated Red Blood 0.0 Cells % Immature 0.040 H Granulocytes # Neutrophils # 9.0 H Lymphocytes # 0.9 Monocytes # 1.3 H Eosinophils # 0.1 Basophils # 0.1 Nucleated Red Blood 0.0 Cells # Sodium Level 140 Potassium Level 4.6 Chloride Level 98 Carbon Dioxide Level 29 Anion Gap 13 Blood Urea Nitrogen 38 H Creatinine 6.53 H Est Glomerular Filtrat Rate mL/min Glucose Level 42 #*L Calcium Level 8.6 Phosphorus Level 5.0 H Magnesium Level 1.9 Bedside Glucose 64 L 112 120 Test 08/14/18 11:49 Bedside Glucose 91 Medications Medication Current Medications IV Flush (NS 3 ml) 3 ml PER PROTOCOL IV ; Start 08/02/18 at 13:00 Ondansetron HCl (Zofran Inj) 4 mg Q6H PRN IV NAUSEA/VOMITING; Start 08/02/18 at 13:00 Acetaminophen (Tylenol Tab) 650 mg Q6H PRN PO .PAIN 1-3 OR TEMP Last administered on 08/06/18at 12:57; Admin Dose 650 MG; Start 08/02/18 at 13:00 Acetaminophen/ Hydrocodone Bitart ([place] (5/325)) 1 tab Q6H PRN PO .MOD PAIN 4- 6; Start 08/02/18 at 13:00 Docusate Sodium (Colace) 100 mg Q12H PRN PO .CONSTIPATION; Start 08/02/18 at 13:00 Zolpidem Tartrate (Ambien) 5 mg QHS PRN PO .INSOMNIA; Start 08/02/18 at 13:00 Famotidine (Pepcid) 20 mg DAILY PO Last administered on 08/13/18 09:07; Admin Dose 20 MG; Start 08/02/18 at 21:00 Diagnostic Test (Pha) (Accu-Chek) 1 ea 02 XX Last administered on 08/08/18at 02:36; Admin Dose 1 EA; Start 08/03/18 at 02:00 Insulin Aspart (Novolog Insulin Pen) NOVOLOG *MILD* ALGORITHM WITH MEALS BEDTIME SC Last administered on 08/13/18at 12:12; Admin Dose 2 UNIT; Start 08/02/18 at 18:00 Miscellaneous Information 1 ea NOTE XX ; Start 08/02/18 at 13:30 Glucose (Glutose) 15 gm Q15M PRN PO DECREASED GLUCOSE; Start 08/02/18 at 13:30 Glucose (Glutose) 22.5 gm Q15M PRN PO DECREASED GLUCOSE; Start 08/02/18 at 13:30 Dextrose (D50w Syringe) 25 ml Q15M PRN IV DECREASED GLUCOSE Last administered on 08/14/18 07:35; Admin Dose 25 ML; Start 08/02/18 at 13:30 Dextrose (D50w Syringe) 50 ml Q15M PRN IV DECREASED GLUCOSE; Start 08/02/18 at 13:30 Glucagon (Glucagen) 1 mg Q15M PRN IM DECREASED GLUCOSE; Start 08/02/18 at 13:30 Glucose (Glutose) 15 gm Q15M PRN BUCCAL DECREASED GLUCOSE; Start 08/02/18 at 13:30 Cholecalciferol (Vitamin D) 1,000 unit DAILY PO Last administered on 08/13/18 09:07; Admin Dose 1,000 UNIT; Start 08/03/18 at 09:00 Folic Acid (Folic Acid) 1 mg DAILY PO Last administered on 08/13/18 09:07; Admin Dose 1 MG; Start 08/03/18 at 09:00 Levothyroxine Sodium (Synthroid) 50 mcg BEFORE BREAKFAST PO Last administered on 08/14/18 06:46; Admin Dose 50 MCG; Start 08/03/18 at 07:00 Nortriptyline HCl (Aventyl) 10 mg TID PO Last administered on 08/13/18 20:44; Admin Dose 10 MG; Start 08/02/18 at 21:00 Sevelamer Carbonate (Renvela) 0.8 gm AC MEALS PO Last administered on 08/14/18 06:46; Admin Dose 0.8 GM; Start 08/02/18 at 17:30 Midodrine (Proamatine) 5 mg ON DIALYSIS DAYS PO Last administered on 08/12/18 09:34; Admin Dose 5 MG; Start 08/02/18 at 18:00 Insulin Glargine (Lantus) 15 units DAILY@0800 SC Last administered on 08/14/18 08:00; Admin Dose 15 UNITS; Start 08/03/18 at 12:00 Morphine Sulfate (morphine) 6 mg Q4H PRN PO SEVERE PAIN LEVEL 7-10; Start 08/06/18 at 23:30 Albumin Human 100 ml @ 100 mls/hr WITH DIALYSIS PRN IV SBP <90 DURING DIALYSIS Last administered on 08/12/18 09:17; Admin Dose 100 MLS/HR; Start 08/07/18 at 10:00 Gabapentin (Neurontin) 100 mg DAILY PO Last administered on 08/13/18 09:07; Admin Dose 100 MG; Start 08/07/18 at 11:30 Phenol (Cepastat Lozenge) 1 lozenge Q1H PRN MT COUGH Last administered on 08/08/18 02:34; Admin Dose 1 LOZENGE; Start 08/07/18 at 23:00 Polyethylene Glycol (Miralax) 17 gm DAILY PRN PO CONSTIPATION; Start 08/11/18 at 11:00 Dextrose/Sodium Chloride 1,000 ml @ 40 mls/hr Q24H IV ; Start 08/14/18 at 10:30 LUCRETIA QUEEN Aug 14, 2018 11:53
--- NOTE | 2018-08-14 12:02 | PN ---
Date/Time of Note Date/Time of Note DATE: 08/14/18 TIME: 12:01 Objective Vitals Vital Signs Date Temp Pulse Resp B/P (MAP) Pulse Ox O2 O2 Flow FiO2 Time Delivery Rate 08/14/18 98.3 95 16 109/56 95 11:38 (73) 08/14/18 Room Air 08:07 Intake and Output 08/13/18 08/13/18 08/14/18 1515:00 23:00 07:00 IntakeIntake Total 450 ml 250 ml BalanceBalance 450 ml 250 ml Results Result Diagram: 08/14/1862408/14/18624 Medications Medications Current Medications IV Flush (NS 3 ml) 3 ml PER PROTOCOL IV ; Start 08/02/18 at 13:00 Ondansetron HCl (Zofran Inj) 4 mg Q6H PRN IV NAUSEA/VOMITING; Start 08/02/18 at 13:00 Acetaminophen (Tylenol Tab) 650 mg Q6H PRN PO .PAIN 1-3 OR TEMP Last administered on 08/06/18at 12:57; Admin Dose 650 MG; Start 08/02/18 at 13:00 Acetaminophen/ Hydrocodone Bitart ([place] (5/325)) 1 tab Q6H PRN PO .MOD PAIN 4- 6; Start 08/02/18 at 13:00 Docusate Sodium (Colace) 100 mg Q12H PRN PO .CONSTIPATION; Start 08/02/18 at 13:00 Zolpidem Tartrate (Ambien) 5 mg QHS PRN PO .INSOMNIA; Start 08/02/18 at 13:00 Famotidine (Pepcid) 20 mg DAILY PO Last administered on 08/13/18at 09:07; Admin Dose 20 MG; Start 08/02/18 at 21:00 Diagnostic Test (Pha) (Accu-Chek) 1 ea 02 XX Last administered on 08/08/18at 02:36; Admin Dose 1 EA; Start 08/03/18 at 02:00 Insulin Aspart (Novolog Insulin Pen) NOVOLOG *MILD* ALGORITHM WITH MEALS BEDTIME SC Last administered on 08/13/18at 12:12; Admin Dose 2 UNIT; Start 08/02/18 at 18:00 Miscellaneous Information 1 ea NOTE XX ; Start 08/02/18 at 13:30 Glucose (Glutose) 15 gm Q15M PRN PO DECREASED GLUCOSE; Start 08/02/18 at 13:30 Glucose (Glutose) 22.5 gm Q15M PRN PO DECREASED GLUCOSE; Start 08/02/18 at 13:30 Dextrose (D50w Syringe) 25 ml Q15M PRN IV DECREASED GLUCOSE Last administered on 08/14/18 07:35; Admin Dose 25 ML; Start 08/02/18 at 13:30 Dextrose (D50w Syringe) 50 ml Q15M PRN IV DECREASED GLUCOSE; Start 08/02/18 at 13:30 Glucagon (Glucagen) 1 mg Q15M PRN IM DECREASED GLUCOSE; Start 08/02/18 at 13:30 Glucose (Glutose) 15 gm Q15M PRN BUCCAL DECREASED GLUCOSE; Start 08/02/18 at 13:30 Cholecalciferol (Vitamin D) 1,000 unit DAILY PO Last administered on 08/13/18 09:07; Admin Dose 1,000 UNIT; Start 08/03/18 at 09:00 Folic Acid (Folic Acid) 1 mg DAILY PO Last administered on 08/13/18 09:07; Admin Dose 1 MG; Start 08/03/18 at 09:00 Levothyroxine Sodium (Synthroid) 50 mcg BEFORE BREAKFAST PO Last administered on 08/14/18 06:46; Admin Dose 50 MCG; Start 08/03/18 at 07:00 Nortriptyline HCl (Aventyl) 10 mg TID PO Last administered on 08/13/18 20:44; Admin Dose 10 MG; Start 08/02/18 at 21:00 Sevelamer Carbonate (Renvela) 0.8 gm AC MEALS PO Last administered on 08/14/18 06:46; Admin Dose 0.8 GM; Start 08/02/18 at 17:30 Midodrine (Proamatine) 5 mg ON DIALYSIS DAYS PO Last administered on 08/12/18 09:34; Admin Dose 5 MG; Start 08/02/18 at 18:00 Insulin Glargine (Lantus) 15 units DAILY@0800 SC Last administered on 08/14/18 08:00; Admin Dose 15 UNITS; Start 08/03/18 at 12:00 Morphine Sulfate (morphine) 6 mg Q4H PRN PO SEVERE PAIN LEVEL 7-10; Start 08/06/18 at 23:30 Albumin Human 100 ml @ 100 mls/hr WITH DIALYSIS PRN IV SBP <90 DURING DIALYSIS Last administered on 08/12/18at 09:17; Admin Dose 100 MLS/HR; Start 08/07/18 at 10:00 Gabapentin (Neurontin) 100 mg DAILY PO Last administered on 08/13/18at 09:07; Admin Dose 100 MG; Start 08/07/18 at 11:30 Phenol (Cepastat Lozenge) 1 lozenge Q1H PRN MT COUGH Last administered on 08/08/18at 02:34; Admin Dose 1 LOZENGE; Start 08/07/18 at 23:00 Polyethylene Glycol (Miralax) 17 gm DAILY PRN PO CONSTIPATION; Start 08/11/18 at 11:00 Dextrose/Sodium Chloride 1,000 ml @ 40 mls/hr Q24H IV ; Start 08/14/18 at 10:30 VTE Prophylaxis Risk score (from [facility] [place])>0 risk: 6 SCD applied (from [facility] [place]): No SCD contraindication: other Lines/Catheters IV Catheter Type: Blevins in Place: No Assessment/Plan Hospital Course Subjective No acute complaints Objective Physical exam General: Patient is laying in bed and answers questions appropriately Mentation: Patient is alert and oriented 4, Head: Normocephalic atraumatic Eyes: EOMI, pupils reactive to light Neck: Supple, nontender, midline Respiratory: Clear to auscultation bilaterally Cardiovascular: regular rate, no obvious murmurs Gastrointestinal: non-tender to palpation, bowel sounds heard. Neurological: Moves all extremities spontaneously Skin: No new skin lesions Assessment/Plan Colonic mass at the splenic flexure and ascending colon - Discussed plans with Dr. Meneses, colorectal surgeon, who will coordinate surgical intervention with the team. scheduled today based on OR time etc Dr. Swartz and Dr. Pimentel made aware of tentative surgical plan. - GI on board and appreciate recommendations. 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 Cam on board and appreciate recommendations. - Cardiology consultation appreciated and medically optimized for surgical intervention. will need PPM either reprogrammed or magnet placed End-stage renal disease on HD - Nephrology on board for HD management and appreciate recommendations GI bleed -2/2 to above mass Arm swelling --Ultrasound showed right brachial DVT as well as thrombosis of the left cephalic vein. Patient has 0 symptoms at this time. Discussed with patient and his family, that upper extremity DVTs are usually treated conservatively unless symptomatic. Patient has no discomfort at this time. Patient's midline on his right arm is the likely culprit for the DVT on his right brachial vein, however it is still patent and has no other IV access due to patient being a very hard stick, patient will need to continue have IV axis until his surgery tomorrow, as coordinated with nursing staff to alert anesthesia to insert central venous catheter and subsequently remove right arm midline before surgery. At any rate even with symptoms, anticoagulation at this rate would cause worsening bleeding of his current GI bleed due to masses and is likely a contraindication, will re- consider anticoagulation after surgery has cleared patient in the next few days the patient may be at a hypercoagulable state due to his cancer. But we will revisit after surgery and after GI bleeding has stabilized.. Diabetes - A1c noted - counseled about importance of diet choices and glucose control - Continue Lantus and ISS Esophagitis - Continue PPI Hypothyroidism - Continue home Synthroid Persistent cough - improvement with Gabapentin Nonischemic CM - pacer in place - Chronic per outpatient Insolvency Practitioner Mild acute on chronic systolic HF - fluid removal during HD Disposition - NPO, on IVF, surgery today DULCE GALINDO Aug 14, 2018 12:02
--- NOTE | 2018-08-14 14:39 | PREAC ---
Date/Time of Note Date/Time of Note DATE: 08/14/18 TIME: 14:33 Anesthesia Eval and Record Evaluation Time Pre-Procedure Interview DATE: 08/14/18 TIME: 14:33 Age 78 Sex male NPO: 8 hrs Preoperative diagnosis colon cancer Planned procedure sub-total colectomy Past Medical History Past Medical History: Includes Cardio: HTN, Dyslipidemia, Arrythmia (PPM reprogrammed today at 11 am), PPM/AICD, CHF (EF 60% 09/01/16.), Other (mild acute on chronic systolic heart failure, nonischemic cardiomyopathy) Endo: Diabetes, Hypothyroid Renal: ESRD on dialysis (last HD today this morning, access is LUE AV fistula) Heme: Anemia, Other (DVT bilateral upper extremity) Surgery & Anesthesia Issues No known issue Meds Anticoagulation: No Beta Gunnar within 24 hr: No Reason Beta Gunnar not given: Pt. not on B-Gunnar, Cardiomyopathy Active Scripts Hydrocodone/Acetaminophen ([place] 5-325 Tablet) 1 Each Tablet, 1 EACH PO Q8 PRN for PAIN, #21 TAB Prov:DULCE GALINDO 03/29/17 Reported Medications Midodrine* (Midodrine*) 5 Mg Tablet, 5 MG PO DAILY, TAB THE DAYS OF DIALYSIS 08/02/18 Nortriptyline Hcl* (Nortriptyline Hcl*) 10 Mg Capsule, 10 MG PO TID, CAP 08/02/18 Aspirin* (Aspirin* Chew) 81 Mg Tab.chew, 81 MG PO DAILY, TAB.CHEW 08/02/18 Cholecalciferol* (Vitamin D3*) 1,000 Unit Tablet, 1000 UNIT PO DAILY, TAB 03/28/17 Cyanocobalamin* (Vitamin B12*) Unknown Strength Tab, 1 TAB PO Q MON,FRI, TAB 03/28/17 Sevelamer Carbonate* (Renvela*) 800 Mg Tablet, 0.8 GM PO WITH MEALS BID, TAB 03/28/17 Levothyroxine Sodium* (Synthroid*) 50 Mcg Tablet, 50 MCG PO BEFORE BREAKFAST, #30 TAB 08/21/16 Atorvastatin Calcium* (Atorvastatin Calcium*) 20 Mg Tablet, 20 MG PO QHS, #30 TAB 08/21/16 Folic Acid* (Folic Acid*) 1 Mg Tablet, 1 MG PO DAILY, TAB 08/21/16 Insulin Lispro (Humalog) 100 Unit/1 Ml Cartridge, 0 SQ TID SLIDING SCALES 08/21/16 Insulin Glargine* (Lantus*) 100 Unit/Ml Soln, 20 UNIT SC BID, #1 VIAL 08/21/16 Current Medications IV Flush (NS 3 ml) 3 ml PER PROTOCOL IV ; Start 08/02/18 at 13:00 Ondansetron HCl (Zofran Inj) 4 mg Q6H PRN IV NAUSEA/VOMITING; Start 08/02/18 at 13:00 Acetaminophen (Tylenol Tab) 650 mg Q6H PRN PO .PAIN 1-3 OR TEMP Last administered on 08/06/18at 12:57; Admin Dose 650 MG; Start 08/02/18 at 13:00 Acetaminophen/ Hydrocodone Bitart ([place] (5/325)) 1 tab Q6H PRN PO .MOD PAIN 4- 6; Start 08/02/18 at 13:00 Docusate Sodium (Colace) 100 mg Q12H PRN PO .CONSTIPATION; Start 08/02/18 at 13:00 Zolpidem Tartrate (Ambien) 5 mg QHS PRN PO .INSOMNIA; Start 08/02/18 at 13:00 Famotidine (Pepcid) 20 mg DAILY PO Last administered on 08/13/18at 09:07; Admin Dose 20 MG; Start 08/02/18 at 21:00 Diagnostic Test (Pha) (Accu-Chek) 1 ea 02 XX Last administered on 08/08/18at 02:36; Admin Dose 1 EA; Start 08/03/18 at 02:00 Insulin Aspart (Novolog Insulin Pen) NOVOLOG *MILD* ALGORITHM WITH MEALS BEDTIME SC Last administered on 08/13/18at 12:12; Admin Dose 2 UNIT; Start 08/02/18 at 18:00 Miscellaneous Information 1 ea NOTE XX ; Start 08/02/18 at 13:30 Glucose (Glutose) 15 gm Q15M PRN PO DECREASED GLUCOSE; Start 08/02/18 at 13:30 Glucose (Glutose) 22.5 gm Q15M PRN PO DECREASED GLUCOSE; Start 08/02/18 at 13:30 Dextrose (D50w Syringe) 25 ml Q15M PRN IV DECREASED GLUCOSE Last administered on 08/14/18at 07:35; Admin Dose 25 ML; Start 08/02/18 at 13:30 Dextrose (D50w Syringe) 50 ml Q15M PRN IV DECREASED GLUCOSE; Start 08/02/18 at 13:30 Glucagon (Glucagen) 1 mg Q15M PRN IM DECREASED GLUCOSE; Start 08/02/18 at 13:30 Glucose (Glutose) 15 gm Q15M PRN BUCCAL DECREASED GLUCOSE; Start 08/02/18 at 13:30 Cholecalciferol (Vitamin D) 1,000 unit DAILY PO Last administered on 08/13/18 09:07; Admin Dose 1,000 UNIT; Start 08/03/18 at 09:00 Folic Acid (Folic Acid) 1 mg DAILY PO Last administered on 08/13/18 09:07; Admin Dose 1 MG; Start 08/03/18 at 09:00 Levothyroxine Sodium (Synthroid) 50 mcg BEFORE BREAKFAST PO Last administered on 08/14/18 06:46; Admin Dose 50 MCG; Start 08/03/18 at 07:00 Nortriptyline HCl (Aventyl) 10 mg TID PO Last administered on 08/13/18 20:44; Admin Dose 10 MG; Start 08/02/18 at 21:00 Sevelamer Carbonate (Renvela) 0.8 gm AC MEALS PO Last administered on 08/14/18 06:46; Admin Dose 0.8 GM; Start 08/02/18 at 17:30 Midodrine (Proamatine) 5 mg ON DIALYSIS DAYS PO Last administered on 08/12/18 09:34; Admin Dose 5 MG; Start 08/02/18 at 18:00 Insulin Glargine (Lantus) 15 units DAILY@0800 SC Last administered on 08/14/18 08:00; Admin Dose 15 UNITS; Start 08/03/18 at 12:00 Morphine Sulfate (morphine) 6 mg Q4H PRN PO SEVERE PAIN LEVEL 7-10; Start 08/06/18 at 23:30 Albumin Human 100 ml @ 100 mls/hr WITH DIALYSIS PRN IV SBP <90 DURING DIALYSIS Last administered on 08/12/18 09:17; Admin Dose 100 MLS/HR; Start 08/07/18 at 10:00 Gabapentin (Neurontin) 100 mg DAILY PO Last administered on 08/13/18 09:07; Admin Dose 100 MG; Start 08/07/18 at 11:30 Phenol (Cepastat Lozenge) 1 lozenge Q1H PRN MT COUGH Last administered on 08/08/18at 02:34; Admin Dose 1 LOZENGE; Start 08/07/18 at 23:00 Polyethylene Glycol (Miralax) 17 gm DAILY PRN PO CONSTIPATION; Start 08/11/18 at 11:00 Dextrose/Sodium Chloride 1,000 ml @ 40 mls/hr Q24H IV Last administered on 08/14/18at 10:30; Admin Dose 40 MLS/HR; Start 08/14/18 at 10:30 Meds reviewed: Yes Allergies Coded Allergies: hydromorphone (Verified Allergy, Unknown, UNKNOWN, 08/02/18) Allergies Reviewed: Yes Labs/Studies Labs Reviewed: Reviewed by anesthesiologist Result Diagram: 08/14/1862408/14/18 0625 Laboratory Tests 08/14/18 06:25 test: N/A Studies: ECG, CXR, 2D Echo (2016) Pre-procedure Exam Last vitals Vital Signs Date Temp Pulse Resp B/P (MAP) Pulse Ox O2 O2 Flow FiO2 Time Delivery Rate 08/14/18 90 12:08 08/14/18 98.3 16 109/56 95 11:38 (73) 08/14/18 Room Air 08:07 Airway: Adequate mouth opening, Adequate thyromental dist Mallampati: Mallampati II Teeth: Normal Lung: Normal Heart: Normal ASA Physical Status ASA physical status: 3 Emergency: None Planned Anesthetic General/MAC: ETT, A Line, CVP Nerve block: TAP (bilateral) Planned Pain Management Single shot nerve block, Parenteral pain med, Local by surgeon Pre-operative Attestations PLAN DISCUSSED WITH DR TRU SCOTT WHO WAS INVOLVED IN THIS PREOP PROCESS. Prior to commencing anesthesia and surgery, the patient was re-evaluated, there was verification of: *The patient's identity *The results of appropriate recent lab work and preoperative vital signs *The above evaluation not changing prior to induction *Anesthetic plan, risk benefits, alternative and complications discussed with patient/family; questions answered; patient/family understands, accepts and wishes to proceed. DALLAS BUSTOS Aug 14, 2018 14:39
[2018-08-14] MEDS ORDERED: ETOMIDATE 20 MG INJ ONE (17:38)
[2018-08-14] MEDS ORDERED: ROCURONIUM 50 MG INJ ONE (17:38)
[2018-08-14] MEDS ORDERED: LIDOCAINE 1% (MDV) 20 ML INJ ONE ×2 (17:38→21:37)
[2018-08-14] MEDS ORDERED: PHENYLephrine (100 MCG/ML) 5ML SYG ONE ×4 (18:11→20:25)
[2018-08-14] MEDS ORDERED: metroNIDAZOLE 500 MG/NS (PMX) 100 ML IVPB ONE (18:42)
[2018-08-14] MEDS ORDERED: CEFAZOLIN 1 GM INJ ONE (18:42)
[2018-08-14] MEDS ORDERED: VASOPRESSIN 20 UNITS INJ ONE (19:06)
[2018-08-14] MEDS ORDERED: CA CHLORIDE 10% 10 ML SYRINGE ONE (20:40)
[2018-08-14] MEDS ORDERED: ROPIVACAINE 0.5 % 30 ML VIAL ONE (21:36)
[2018-08-14] MEDS ORDERED: ONDANSETRON 4 MG INJ ONE (21:37)
[2018-08-14] MEDS ORDERED: FAMOTIDINE 20 MG INJ ONE (21:38)
[2018-08-14] MEDS ORDERED: SUGAMMADEX SODIUM 200 MG/2 ML VIAL IV ONE (21:49)
--- NOTE | 2018-08-14 21:59 | SIPON ---
Date/Time of Note Date/Time of Note DATE: 08/14/18 TIME: 21:55 Operative Report Preoperative Diagnosis Ascending colon cancer, and GIST tumor of the splenic flexure Postoperative Diagnosis Same w/ final path pending Operation/Procedure Performed Lap-assisted subtotal colectomy w/ en-bloc resection of proximal jejunum, and omentum, and ligation of ileo-colic and middle colic arteries Surgeon see signature line lens assistant Jonah Choi MD Anesthesia: general, epidural Estimated blood loss: other ( 500cc) Transfusion Required none Specimen Subtotal colon w/ en bloc resection of jejunum, mesenteric implant Grafts/Implants none Complications none GONZÁLEZ MERIDA MD Aug 14, 2018 21:59
[2018-08-14] MEDS ORDERED: FENTAnyl 50 MCG/ML VIAL ONE (22:09)
[2018-08-14] MEDS ORDERED: HYDROmorphONE 1 MG/ML SYG IV PRN (22:30)
--- NOTE | 2018-08-14 22:42 | PAC ---
Date/Time of Note Date/Time of Note DATE: 08/14/18 TIME: 22:42 Post-Anesthesia Notes Post-Anesthesia Note Last documented vital signs Vital Signs Date Temp Pulse Resp B/P (MAP) Pulse Ox O2 O2 Flow FiO2 Time Delivery Rate 08/14/18 98 90 15 117/59 100 2242 08/14/18 97.9 16 95 15:15 08/14/18 Room Air 08:07 Activity: WNL Respiratory function: WNL Cardiovascular function: WNL Mental status: Baseline Pain reasonably controlled: Yes Hydration appropriate: Yes Nausea/Vomiting absent: Yes MABEL DANIELS DO Aug 14, 2018 22:42
[2018-08-14] MEDS ORDERED: HYDROmorphONE 0.5 MG/0.5 ML SYG IV PRN ×3 (23:00)
[2018-08-14] MEDS ORDERED: FENTAnyl 50 MCG/ML VIAL IV PRN ×3 (23:00)
[2018-08-14] MEDS ORDERED: hydrALAzine 20 MG INJ IV PRN (23:00)
[2018-08-14] MEDS ORDERED: ONDANSETRON 4 MG INJ IV PRN (23:00)
[2018-08-15] VITALS (55 sets, daily range): BP systolic 70–117; BP diastolic 40–87; PULSE 90–105; RESP 15–31
[2018-08-15] MEDS: INSULIN ASPART [NOVOLOG] 3 ML PEN SC SCH ×5 (01:22→21:00)
[2018-08-15] MEDS: ACCU-CHEK XX SCH (01:24)
[2018-08-15] MEDS ORDERED: ACETAMINOPHEN 1000MG/100ML IV 100 ML IVPB ONE (03:00)
[2018-08-15] MEDS ORDERED: CEFAZOLIN 1 GM/50 ML (PMX) 50 ML IVPB SCH (06:30)
[2018-08-15] MEDS ORDERED: metroNIDAZOLE 500 MG/NS (PMX) 100 ML IVPB ONE (07:00)
--- NOTE | 2018-08-15 07:18 | PN ---
Date/Time of Note Date/Time of Note DATE: 08/15/18 TIME: 07:08 Assessment/Plan VTE Prophylaxis VTE Prophylaxis Intervention: anti-embolic stocking VTE Contraindication Reason: bleeding Lines/Catheters IV Catheter Type (from [facility]): Central Line Central line insert date: Aug 14, 2018 Central line still needed: Yes Blevins in Place (from [facility]): No Assessment/Plan Chief Complaint/Hosp Course Pt is s/p major abdominal surgery ( adenocarcinoma of ascending colon and large infiltrating splenic flexure GIST w/ invasion into proximal jejunum) requiring 2 anastomoses ( ileo-sigmoid, and duodenal-jejunal anastomosis). Other findings at the time of surgery include mild to moderate ascites, and fine, nodularity of the liver - cirrhosis?-, and inflammation extending from the transverse colon mesentary to the pancreas, which felt firm). Decision to have the next dialysis as per nephrology. Assessment/Plan POD #1 s/p sub-total colectomy, and small bowel resection Add ice chips. Dangle. Subjective 24 Hr Interval Summary POD #1 Pt is relatively alert, and pain is manageable. H/H is stable, and K+ is only at 5.0. BP is sl low but c/w BP during and after surgery. Pt denies nausea Constitutional: no complaints Feeding: NPO (Will add ice chips. Will be slow to feed w/ proximal small bowel resection) Exam/Review of Systems Vital Signs Vitals Vital Signs Date Temp Pulse Resp B/P (MAP) Pulse Ox O2 O2 Flow FiO2 Time Delivery Rate 08/15/18 18 100 Nasal 3.0 06:57 Cannula 08/15/18 98.7 90 86/67 (73) 06:00 Intake and Output 08/14/18 08/14/18 08/15/18 1515:00 23:00 07:00 IntakeIntake Total 1500 ml 400 ml OutputOutput Total 1400 ml 500 ml 0 ml BalanceBalance -1400 ml 1000 ml 400 ml Exam Constitutional: alert Psych: no complaints Cardiovascular: regular rate and rhythm Gastrointestinal: soft, tender (post surgical pain) Neurological: ROUTE DELIVERY SUPERVISOR II-XII intact Results Result Diagram: 08/15/18 0426 08/15/18 0426 GONZÁLEZ MERIDA MD Aug 15, 2018 07:18
[2018-08-15] MEDS: SEVELAMER CARBONATE 0.8 GM PKT PO SCH ×3 (08:00→17:05)
[2018-08-15] MEDS: INSULIN GLARGINE [LANTus] (100 UNITS/ML) SYG SC SCH (08:33)
[2018-08-15] MEDS: GABAPENTIN 100 MG CAP PO SCH (09:00)
[2018-08-15] MEDS: FOLIC ACID 1 MG TAB PO SCH (09:00)
[2018-08-15] MEDS ORDERED: ACETAMINOPHEN 1000MG/100ML IV 100 ML IVPB PRN (09:00)
[2018-08-15] MEDS: CHOLECALCIFEROL 1,000 UNIT TAB PO SCH (09:00)
--- NOTE | 2018-08-15 09:57 | CONS ---
Assessment/Plan Assessment/Plan Hospital Course (Demo Recall) Acute on chronic systolic CHF: euvolemic Right upper extremity DVT: see prior discussion. No anticoagulation for now Non-ischemic Cardiomyopathy PPM: [employer] 05/04. For ?complete heart block as 100% v paced. Normal function on interrogation and reprogramming 08/14 and 08/15 Pulm HTN: PAP 60s by echo Mild-moderate aortic stenosis Colon cancer: s/p subtotal colectomy 08/14 ESRD on HD -PPM reprogrammed to original settings -pain management and surgical f/u -HD per nephrology for volume management Consultation Date/Type/Reason Admit Date/Time Aug 02, 2018 at 10:57 Initial Consult Date 08/08/18 Type of Consult Cardiology Requesting Provider: JO HURST MD Date/Time of Note DATE: 08/15/18 TIME: 09:55 24 HR Interval Summary Free Text/Dictation s/p subtotal colectomy yesterday. Doing well. Some pain. Periods of confusion Exam/Review of Systems Exam Vitals Vital Signs Date Temp Pulse Resp B/P (MAP) Pulse Ox O2 O2 Flow FiO2 Time Delivery Rate 08/15/18 90 19 94/61 (72) 98 Nasal 3.0 09:00 Cannula 08/15/18 97.7 08:00 Intake and Output 08/14/18 08/14/18 08/15/18 1515:00 23:00 07:00 IntakeIntake Total 1500 ml 400 ml OutputOutput Total 1400 ml 500 ml 0 ml BalanceBalance -1400 ml 1000 ml 400 ml Constitutional: alert; No oriented Neck: supple; No jvd Respiratory: diminished breath sounds; No clear to auscultation Cardiovascular: regular rate and rhythm; No edema Gastrointestinal: soft; No non-tender Neurological: nl mental status, nl speech Results Result Diagram: 08/15/18 0426 08/15/18 0426 Results 24hrs Laboratory Tests Test 08/14/18 11:49 08/14/18 22:23 08/14/18 23:05 08/15/18 01:22 Bedside Glucose 91 209 203 White Blood Count 10.4 Red Blood Count 3.99 #L Hemoglobin 12.0 #L Hematocrit 39.3 L Mean Corpuscular 98.5 Volume Mean Corpuscular 30.1 Hemoglobin Mean Corpuscular 30.5 L Hemoglobin Concent Red Cell 17.2 H Distribution Width Platelet Count 128 L Mean Platelet Volume 11.9 H Immature 0.500 H Granulocytes % Neutrophils % 83.2 H Lymphocytes % 5.3 L Monocytes % 9.7 Eosinophils % 0.7 Basophils % 0.6 Nucleated Red Blood 0.0 Cells % Immature 0.050 H Granulocytes # Neutrophils # 8.7 H Lymphocytes # 0.6 L Monocytes # 1.0 H Eosinophils # 0.1 Basophils # 0.1 Nucleated Red Blood 0.0 Cells # Sodium Level 137 Potassium Level 4.5 Chloride Level 103 Carbon Dioxide Level 23 Anion Gap 11 Test 08/15/18 04:26 08/15/18 07:56 White Blood Count 11.9 H Red Blood Count 3.97 L Hemoglobin 11.9 L Hematocrit 38.6 L Mean Corpuscular 97.2 Volume Mean Corpuscular 30.0 Hemoglobin Mean Corpuscular 30.8 L Hemoglobin Concent Red Cell 17.6 H Distribution Width Platelet Count 131 L Mean Platelet Volume 12.1 H Immature 0.800 H Granulocytes % Neutrophils % 88.4 H Lymphocytes % 3.6 L Monocytes % 6.5 Eosinophils % 0.3 Basophils % 0.4 Nucleated Red Blood 0.0 Cells % Immature 0.090 H Granulocytes # Neutrophils # 10.5 H Lymphocytes # 0.4 L Monocytes # 0.8 Eosinophils # 0.0 Basophils # 0.1 Nucleated Red Blood 0.0 Cells # Sodium Level 136 Potassium Level 5.0 Chloride Level 106 Carbon Dioxide Level 20 L Anion Gap 10 Blood Urea Nitrogen 26 #H Creatinine 4.18 #H Est Glomerular Filtrat Rate mL/min Glucose Level 277 #H Calcium Level 7.8 L Phosphorus Level 4.7 Magnesium Level 1.6 L Bedside Glucose 255 H Medications Medication Current Medications Ondansetron HCl (Zofran Inj) 4 mg Q6H PRN IV NAUSEA/VOMITING; Start 08/02/18 at 13:00 Diagnostic Test (Pha) (Accu-Chek) 1 ea 02 XX Last administered on 08/15/18at 01:24; Admin Dose 1 EA; Start 08/03/18 at 02:00 Insulin Aspart (Novolog Insulin Pen) NOVOLOG *MILD* ALGORITHM WITH MEALS BEDTIME SC Last administered on 08/15/18at 08:33; Admin Dose 3 UNIT; Start 08/02/18 at 18:00 Glucose (Glutose) 15 gm Q15M PRN PO DECREASED GLUCOSE; Start 08/02/18 at 13:30 Glucose (Glutose) 22.5 gm Q15M PRN PO DECREASED GLUCOSE; Start 08/02/18 at 13:30 Dextrose (D50w Syringe) 25 ml Q15M PRN IV DECREASED GLUCOSE Last administered on 08/14/18 07:35; Admin Dose 25 ML; Start 08/02/18 at 13:30 Dextrose (D50w Syringe) 50 ml Q15M PRN IV DECREASED GLUCOSE; Start 08/02/18 at 13:30 Glucagon (Glucagen) 1 mg Q15M PRN IM DECREASED GLUCOSE; Start 08/02/18 at 13:30 Glucose (Glutose) 15 gm Q15M PRN BUCCAL DECREASED GLUCOSE; Start 08/02/18 at 13:30 Cholecalciferol (Vitamin D) 1,000 unit DAILY PO Last administered on 08/13/18 09:07; Admin Dose 1,000 UNIT; Start 08/03/18 at 09:00 Folic Acid (Folic Acid) 1 mg DAILY PO Last administered on 08/13/18 09:07; Admin Dose 1 MG; Start 08/03/18 at 09:00 Sevelamer Carbonate (Renvela) 0.8 gm AC MEALS PO Last administered on 08/14/18 06:46; Admin Dose 0.8 GM; Start 08/02/18 at 17:30 Midodrine (Proamatine) 5 mg ON DIALYSIS DAYS PO Last administered on 08/12/18 09:34; Admin Dose 5 MG; Start 08/02/18 at 18:00 Insulin Glargine (Lantus) 15 units DAILY@0800 SC Last administered on 08/15/18 08:33; Admin Dose 15 UNITS; Start 08/03/18 at 12:00 Albumin Human 100 ml @ 100 mls/hr WITH DIALYSIS PRN IV SBP <90 DURING DIALYSIS Last administered on 08/12/18 09:17; Admin Dose 100 MLS/HR; Start 08/07/18 at 10:00 Gabapentin (Neurontin) 100 mg DAILY PO Last administered on 08/13/18 09:07; Admin Dose 100 MG; Start 08/07/18 at 11:30 Phenol (Cepastat Lozenge) 1 lozenge Q1H PRN MT COUGH Last administered on 2/21/19at 02:34; Admin Dose 1 LOZENGE; Start 08/07/18 at 23:00 Dextrose/Sodium Chloride 1,000 ml @ 40 mls/hr Q24H IV Last administered on 08/14/18at 23:30; Admin Dose 40 MLS/HR; Start 08/14/18 at 10:30 Morphine Sulfate (morphine) 2 mg Q4H PRN IV SEVERE PAIN LEVEL 7-10; Start 08/15/18 at 09:00 Acetaminophen 100 ml @ 400 mls/hr Q6H PRN IVPB pain/fever Last administered on 08/15/18at 09:03; Admin Dose 400 MLS/HR; Start 08/15/18 at 09:00; Stop 08/16/18 at 08:59 LUCRETIA QUEEN Aug 15, 2018 09:57
[2018-08-15] MEDS: morphine 2 MG INJ IV PRN (10:16)
--- NOTE | 2018-08-15 10:21 | CONS ---
Assessment/Plan Assessment/Plan Assessment/Plan (Daily) 1 End-stage renal disease, on hemodialysis,mwf with mild CHF 2. 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 Hypotension. On Midodrin at home 4. History of congestive heart failure.1 End-stage renal disease, on hemodialysis,mwf with mild CHF 5. Hypercholesterolemia. 6. Total hip replacement. 7. Leukocytosis. 8. Hypoglycemia. 9. MAcrocytic hypochromic Anemia mixed etiology, recent blood loss and 2/2 kidney disease 10. 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% Plan - HD tmw - K 5.0 BP labile and on 2-3 L on oxygen -Midodrine on dialysis days for hypotension -Renally Dose all meds Consultation Date/Type/Reason Admit Date/Time Aug 02, 2018 at 10:57 Initial Consult Date 08/03/18 Requesting Provider: JO HURST MD Date/Time of Note DATE: 08/15/18 TIME: 10:21 24 HR Interval Summary Free Text/Dictation POD #1 s/p sub-total colectomy, and small bowel resection No cp/sob comfortable Exam/Review of Systems Exam Vitals Vital Signs Date Temp Pulse Resp B/P (MAP) Pulse Ox O2 O2 Flow FiO2 Time Delivery Rate 08/15/18 90 19 94/61 (72) 98 Nasal 3.0 09:00 Cannula 08/15/18 97.7 08:00 Intake and Output 08/14/18 08/14/18 08/15/18 1414:59 22:59 06:59 IntakeIntake Total 1500 ml 360 ml OutputOutput Total 1400 ml 500 ml 0 ml BalanceBalance -1400 ml 1000 ml 360 ml Exam Respiratory: diminished breath sounds R>L Cardiovascular: regular rate and rhythm Gastrointestinal: soft, bowel sounds (+) Extremities: b/l arm edema hero graft on left Results Result Diagram: 08/15/186 08/15/18425 Results 24hrs Laboratory Tests Test 08/14/18 11:49 08/14/18 22:23 08/14/18 23:05 08/15/18 01:22 Bedside Glucose 91 209 203 White Blood Count 10.4 Red Blood Count 3.99 #L Hemoglobin 12.0 #L Hematocrit 39.3 L Mean Corpuscular 98.5 Volume Mean Corpuscular 30.1 Hemoglobin Mean Corpuscular 30.5 L Hemoglobin Concent Red Cell 17.2 H Distribution Width Platelet Count 128 L Mean Platelet Volume 11.9 H Immature 0.500 H Granulocytes % Neutrophils % 83.2 H Lymphocytes % 5.3 L Monocytes % 9.7 Eosinophils % 0.7 Basophils % 0.6 Nucleated Red Blood 0.0 Cells % Immature 0.050 H Granulocytes # Neutrophils # 8.7 H Lymphocytes # 0.6 L Monocytes # 1.0 H Eosinophils # 0.1 Basophils # 0.1 Nucleated Red Blood 0.0 Cells # Sodium Level 137 Potassium Level 4.5 Chloride Level 103 Carbon Dioxide Level 23 Anion Gap 11 Test 08/15/18 04:26 08/15/18 07:56 White Blood Count 11.9 H Red Blood Count 3.97 L Hemoglobin 11.9 L Hematocrit 38.6 L Mean Corpuscular 97.2 Volume Mean Corpuscular 30.0 Hemoglobin Mean Corpuscular 30.8 L Hemoglobin Concent Red Cell 17.6 H Distribution Width Platelet Count 131 L Mean Platelet Volume 12.1 H Immature 0.800 H Granulocytes % Neutrophils % 88.4 H Lymphocytes % 3.6 L Monocytes % 6.5 Eosinophils % 0.3 Basophils % 0.4 Nucleated Red Blood 0.0 Cells % Immature 0.090 H Granulocytes # Neutrophils # 10.5 H Lymphocytes # 0.4 L Monocytes # 0.8 Eosinophils # 0.0 Basophils # 0.1 Nucleated Red Blood 0.0 Cells # Sodium Level 136 Potassium Level 5.0 Chloride Level 106 Carbon Dioxide Level 20 L Anion Gap 10 Blood Urea Nitrogen 26 #H Creatinine 4.18 #H Est Glomerular Filtrat Rate mL/min Glucose Level 277 #H Calcium Level 7.8 L Phosphorus Level 4.7 Magnesium Level 1.6 L Bedside Glucose 255 H Medications Medication Current Medications Ondansetron HCl (Zofran Inj) 4 mg Q6H PRN IV NAUSEA/VOMITING; Start 08/02/18 at 13:00 Diagnostic Test (Pha) (Accu-Chek) 1 ea 02 XX Last administered on 08/15/18at 01:24; Admin Dose 1 EA; Start 08/03/18 at 02:00 Insulin Aspart (Novolog Insulin Pen) NOVOLOG *MILD* ALGORITHM WITH MEALS BEDTIME SC Last administered on 08/15/18 08:33; Admin Dose 3 UNIT; Start 08/02/18 at 18:00 Glucose (Glutose) 15 gm Q15M PRN PO DECREASED GLUCOSE; Start 08/02/18 at 13:30 Glucose (Glutose) 22.5 gm Q15M PRN PO DECREASED GLUCOSE; Start 08/02/18 at 13:30 Dextrose (D50w Syringe) 25 ml Q15M PRN IV DECREASED GLUCOSE Last administered on 08/14/18 07:35; Admin Dose 25 ML; Start 08/02/18 at 13:30 Dextrose (D50w Syringe) 50 ml Q15M PRN IV DECREASED GLUCOSE; Start 08/02/18 at 13:30 Glucagon (Glucagen) 1 mg Q15M PRN IM DECREASED GLUCOSE; Start 08/02/18 at 13:30 Glucose (Glutose) 15 gm Q15M PRN BUCCAL DECREASED GLUCOSE; Start 08/02/18 at 13:30 Cholecalciferol (Vitamin D) 1,000 unit DAILY PO Last administered on 08/13/18 09:07; Admin Dose 1,000 UNIT; Start 08/03/18 at 09:00 Folic Acid (Folic Acid) 1 mg DAILY PO Last administered on 08/13/18 09:07; Admin Dose 1 MG; Start 08/03/18 at 09:00 Sevelamer Carbonate (Renvela) 0.8 gm AC MEALS PO Last administered on 08/14/18 06:46; Admin Dose 0.8 GM; Start 08/02/18 at 17:30 Midodrine (Proamatine) 5 mg ON DIALYSIS DAYS PO Last administered on 08/12/18 09:34; Admin Dose 5 MG; Start 08/02/18 at 18:00 Insulin Glargine (Lantus) 15 units DAILY@0800 SC Last administered on 08/15/18 08:33; Admin Dose 15 UNITS; Start 08/03/18 at 12:00 Albumin Human 100 ml @ 100 mls/hr WITH DIALYSIS PRN IV SBP <90 DURING DIALYSIS Last administered on 08/12/18 09:17; Admin Dose 100 MLS/HR; Start 08/07/18 at 10:00 Gabapentin (Neurontin) 100 mg DAILY PO Last administered on 08/13/18 09:07; Admin Dose 100 MG; Start 08/07/18 at 11:30 Phenol (Cepastat Lozenge) 1 lozenge Q1H PRN MT COUGH Last administered on 08/08/18at 02:34; Admin Dose 1 LOZENGE; Start 08/07/18 at 23:00 Dextrose/Sodium Chloride 1,000 ml @ 40 mls/hr Q24H IV Last administered on 08/14/18at 23:30; Admin Dose 40 MLS/HR; Start 08/14/18 at 10:30 Morphine Sulfate (morphine) 2 mg Q4H PRN IV SEVERE PAIN LEVEL 7-10 Last administered on 08/15/18at 10:16; Admin Dose 2 MG; Start 08/15/18 at 09:00 Acetaminophen 100 ml @ 400 mls/hr Q6H PRN IVPB pain/fever Last administered on 08/15/18 09:03; Admin Dose 400 MLS/HR; Start 08/15/18 at 09:00; Stop 08/16/18 at 08:59 NNEKA FRITZ MD Aug 15, 2018 10:21
--- NOTE | 2018-08-15 11:55 | PN ---
Date/Time of Note Date/Time of Note DATE: 08/15/18 TIME: 11:44 Objective Vitals Vital Signs Date Temp Pulse Resp B/P (MAP) Pulse Ox O2 O2 Flow FiO2 Time Delivery Rate 08/15/18 97 21 92/64 (73) 98 Nasal 3.0 11:00 Cannula 08/15/18 97.7 08:00 Intake and Output 08/14/18 08/14/18 08/15/18 1515:00 23:00 07:00 IntakeIntake Total 1500 ml 400 ml OutputOutput Total 1400 ml 500 ml 0 ml BalanceBalance -1400 ml 1000 ml 400 ml Results Result Diagram: 08/15/18 0426 08/15/18 0426 Medications Medications Current Medications Ondansetron HCl (Zofran Inj) 4 mg Q6H PRN IV NAUSEA/VOMITING; Start 08/02/18 at 13:00 Diagnostic Test (Pha) (Accu-Chek) 1 ea 02 XX Last administered on 08/15/18at 01:24; Admin Dose 1 EA; Start 08/03/18 at 02:00 Insulin Aspart (Novolog Insulin Pen) NOVOLOG *MILD* ALGORITHM WITH MEALS B EDTIME SC Last administered on 08/15/18at 08:33; Admin Dose 3 UNIT; Start 08/02/18 at 18:00 Glucose (Glutose) 15 gm Q15M PRN PO DECREASED GLUCOSE; Start 08/02/18 at 13:30 Glucose (Glutose) 22.5 gm Q15M PRN PO DECREASED GLUCOSE; Start 08/02/18 at 13:30 Dextrose (D50w Syringe) 25 ml Q15M PRN IV DECREASED GLUCOSE Last administered on 08/14/18at 07:35; Admin Dose 25 ML; Start 08/02/18 at 13:30 Dextrose (D50w Syringe) 50 ml Q15M PRN IV DECREASED GLUCOSE; Start 08/02/18 at 13:30 Glucagon (Glucagen) 1 mg Q15M PRN IM DECREASED GLUCOSE; Start 08/02/18 at 13:30 Glucose (Glutose) 15 gm Q15M PRN BUCCAL DECREASED GLUCOSE; Start 08/02/18 at 13:30 Cholecalciferol (Vitamin D) 1,000 unit DAILY PO Last administered on 08/13/18at 09:07; Admin Dose 1,000 UNIT; Start 08/03/18 at 09:00 Folic Acid (Folic Acid) 1 mg DAILY PO Last administered on 08/13/18 09:07; Admin Dose 1 MG; Start 08/03/18 at 09:00 Sevelamer Carbonate (Renvela) 0.8 gm AC MEALS PO Last administered on 08/14/18 06:46; Admin Dose 0.8 GM; Start 08/02/18 at 17:30 Midodrine (Proamatine) 5 mg ON DIALYSIS DAYS PO Last administered on 08/12/18 09:34; Admin Dose 5 MG; Start 08/02/18 at 18:00 Insulin Glargine (Lantus) 15 units DAILY@0800 SC Last administered on 08/15/18 08:33; Admin Dose 15 UNITS; Start 08/03/18 at 12:00 Albumin Human 100 ml @ 100 mls/hr WITH DIALYSIS PRN IV SBP <90 DURING DIALYSIS Last administered on 08/12/18 09:17; Admin Dose 100 MLS/HR; Start 08/07/18 at 10:00 Gabapentin (Neurontin) 100 mg DAILY PO Last administered on 08/13/18 09:07; Admin Dose 100 MG; Start 08/07/18 at 11:30 Phenol (Cepastat Lozenge) 1 lozenge Q1H PRN MT COUGH Last administered on 08/08/18 02:34; Admin Dose 1 LOZENGE; Start 08/07/18 at 23:00 Dextrose/Sodium Chloride 1,000 ml @ 40 mls/hr Q24H IV Last administered on 08/14/18 23:30; Admin Dose 40 MLS/HR; Start 08/14/18 at 10:30 Morphine Sulfate (morphine) 2 mg Q4H PRN IV SEVERE PAIN LEVEL 7-10 Last administered on 08/15/18 10:16; Admin Dose 2 MG; Start 08/15/18 at 09:00 Acetaminophen 100 ml @ 400 mls/hr Q6H PRN IVPB pain/fever Last administered on 08/15/18 09:03; Admin Dose 400 MLS/HR; Start 08/15/18 at 09:00; Stop 08/16/18 at 08:59 VTE Prophylaxis Risk score (from Nsg)>0 risk: 16 SCD applied (from Ns): No SCD contraindication: other Lines/Catheters IV Catheter Type: Granger in Place: Yes Cont'd granger catheter reason: terminal illness/intractable pain Assessment/Plan Hospital Course Subjective No acute complaints except surgical site pain Objective Physical exam General: Patient is laying in bed and answers questions appropriately Mentation: Patient is alert and oriented 4, Head: Normocephalic atraumatic Eyes: EOMI, pupils reactive to light Neck: Supple, nontender, midline Respiratory: Clear to auscultation bilaterally Cardiovascular: regular rate, no obvious murmurs Gastrointestinal: tender to palpation, bowel sounds minimal Neurological: Moves all extremities spontaneously Skin: abdominal midline incision, bandaged, CDI Assessment/Plan Colonic mass at the splenic flexure and ascending colon - Dr. Meneses on board, Status post subtotal colectomy and small bowel resec tion on 08/14/18 - GI on board and appreciate recommendations. 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 Cam on board and appreciate recommendations. - Cardiology consultation appreciated and medically optimized for surgical intervention. will need PPM either reprogrammed or magnet placed End-stage renal disease on HD - Nephrology on board for HD management and appreciate recommendations GI bleed -2/ to above mass Arm swelling --Ultrasound showed right brachial DVT as well as thrombosis of the left cephalic vein. Patient has 0 symptoms at this time. Discussed with patient and his family, that upper extremity DVTs are usually treated conservatively unless symptomatic. Patient has no discomfort at this time. Patient's midline on his right arm is the likely culprit for the DVT on his right brachial vein. -remove offending midline which caused DVT as patient now has central line for IV access. -dialysis catheter in left arm stable. -monitor, warm compresses. -Patient is likely an hypercoagulable state due to his carcinoma, will discuss with cardiology and oncology/hematology if anticoagulation is necessary to prevent future clots, however will hold off on anticoagulation for now as patient is fresh out of GI surgery. Diabetes - A1c noted - counseled about importance of diet choices and glucose control - Continue Lantus and ISS Esophagitis - Continue PPI Hypothyroidism - Continue home Synthroid Persistent cough - improvement with Gabapentin Nonischemic CM - pacer in place - Chronic per outpatient [employer] Mild acute on chronic systolic HF - fluid removal during HD Disposition - npo except ice chips -cont icu care, downgrade when ok with colorectal surgery -more than 40 minutes of critical care time spent on this encounter DULCE GALINDO Aug 15, 2018 11:55
--- NOTE | 2018-08-15 14:52 | OPR ---
DATE OF OPERATION: 08/14/2018 INDICATIONS: The patient is a 78-year-old white male whom I saw 4 days ago for a consultation about rectal bleeding. The patient has been admitted to the hospital for hemorrhage and underwent workup w hich included colonoscopy and CT scanning. The colonoscopy revealed 2 tumors. 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 CT scan also confirmed the presence of these 2 as well. T he patient has multiple medical problems including end-stage renal disease for which he receives 3 ti mes weekly dialysis. He also has congestive heart failure, hypertension and some bowel problems. He has been thoroughly worked up and cleared for surgery by all of his specialists. It is felt best th at he proceed to surgery during the same admission because of the size of the tumor, the development of some early partial bowel obstruction symptoms and the possibility of rebleeding. PREOPERATIVE DIAGNOSIS: Colon tumor x2. POSTOPERATIVE DIAGNOSES: 1. Ascending colon cancer. 2. 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 SURGEON: Kenney Frost MD REHAB PHYSICIAN: Cassie Marmolejo MD ANESTHESIA: General endotracheal anesthesia with epidural anesthesia. FLUIDS: Two units of packed red blood cells plus 1500 mL of crystalloid. ESTIMATED BLOOD LOSS: 500 mL. DRAINS: None. COMPLICATIONS: None. FINDINGS AND TECHNIQUE: The patient was brought to the operating room following placement of an epid ural catheter and an art line. The patient was placed in the supine position and then into the litho cornelio position utilizing the Robbie stirrups. A central line was also placed to his right internal jug ular vein. No Blevins catheter was utilized because the patient is basically anuric. The patient's ab domen was prepped with a Betadine solution. He was then draped with sterile towels and sterile sheet s. Palpation of the patient's abdomen revealed a firm mass in the left upper quadrant. I started th e procedure with a lower midline incision extending from the umbilicus down approximately 7 cm. The incision was deepened with the electrocautery unit and the abdomen was entered through the linea alba . Tan retractor was placed and then the GelPort. The abdomen was insufflated to a pressure of 15 mmHg and the abdominal contents were surveyed. There was a mild to moderate amount of ascites noted and a fine macular nodular appearance to the liver perhaps consistent with some early cirrhosis. Th e patient had previously had removal of his gallbladder and prostatectomy, which had been done roboti simran. There were few intraabdominal adhesions which were taken down with the electrocautery unit. A 5 mm trocars were then placed in the left lower quadrant, right lower quadrant and the upper midlin e for exposure. I then utilized the hand port and placed my left hand through this and stood in the perineal position. I took down the right colon along the white line of Toldt utilizing a combination of blunt dissection as well as LigaSure dissection utilizing the laparoscopic LigaSure. I then went to the upper mid abdomen and entered the lesser sac and took down the lesser sac left and right and went ahead and took down the hepatic flexure thoroughly exposing the Gerota's fascia. I then changed my orientation to the left lower quadrant where the sigmoid colon was reflected along the white line of Toldt and dissection was accomplished in a proximal fashion. The tumor mass in the left upper qu adrant was indeed quite large. It had been measured at 6 cm via a colonoscopy and somewhat larger on CT scan. The reality, however, was much larger. It easily filled my entire hand. At first, it fel t like it was fixed, but it was mobile as I was able to dissect it away from the lateral abdominal wa ll and then take down some adhesions between it and the splenic flexure. I continued the takedown of the lesser omentum and open well into the lesser sac. The tumor itself appeared to be infiltrating into the mesocolon including the transverse mesocolon. Palpation of the lesser sac revealed that the splenic artery was calcified and that the pancreas itself was firm, but did not look inflame. The m ass itself extended down into the transverse mesocolon and came quite near the inferior edge of the p ancreas. I incised the peritoneal covering of the transverse mesocolon and was able to bluntly disse ct the mesentery away from the pancreas. I then started again at the terminal ileum and then divided the ileum with a single firing of the SORAIDA 75 stapler. I then began dividing the mesentery utilizing the impact LigaSure device doing this portion of the mesenteric resection under direct vision throug h the wound retractor. This was felt to be a better oncologic surgery rather than doing it with the smaller laparoscopic LigaSure device and was done through the open hand port. I then divided the mes entery taking a wide swath of mesentery making sure to take the ileocolic artery at its root and then dividing the mesentery in a distal fashion around the hepatic flexure to the mid transverse colon wh ere we divided the middle colic vessels and separately oversewed them with 0 Vicryl suture. I then w ent to the left side of the patient's abdomen and divided the colon roughly between the distal descen ding colon and the proximal sigmoid colon. This was accomplished with a single firing of the SORAIDA 75 stapler as well. I then divided the mesentery here somewhat closer to the bowel and took the dissect ion more proximally. As we reached the descending colon, I began to take the mesentery closer to its root. It became apparent that the tumor itself was too large to be extracted through my initial vega d port incision. Also because we were dealing with the root of the mesentery with infiltrative cance r, I elected to convert to an open portion of the procedure and extended the incision 5 cm superiorly . I then placed the large Tan retractor within this. As we further mobilize the mesentery, it be came apparent that the tumor had infiltrated the proximal jejunum at the level of the ligament of Brad vira. As I continued to dissect the mesentery adjacent to the pancreas and divided it with small bite s of the Impact LigaSure device, I was going to have to divide the jejunum. I found clear spaces pro ximal and distal to the tumor infiltration. The proximal level was at the level of the ligament of T albin and I placed a bowel clamp at this level. I divided the jejunum approximately 4 cm distal to t his and a clear spot distal to the tumor mass with a single firing of the SORAIDA 75 stapler. I then div ided the mesentery and small bites using a combination of the division between clamps and ligation wi th 2-0 Vicryl ties as well as LigaSure division. Ultimately, I was able to remove the last portion o f the colon with grossly clear margins as an en bloc resection of the left colon with the portion of the proximal jejunum intact. Earlier, I had divided the colon roughly in its mid portion with single firing of the SORAIDA 75 stapler to make the specimen more manageable. I consulted intraoperatively the pathologist who confirmed that there was a 4 cm ascending colon lesion consistent with adenocarcinom a. Once the specimen was removed, I carefully irrigated the area and checked for bleeding. In divid ing the mesentery of the transverse mesocolon, I came across the inferior mesenteric vein which was d ivided first with the LigaSure then oversewn with 2-0 Vicryl suture. I now had 2 intestinal anastomo ses to complete the operation. I lined up the jejunum with the duodenum as it exited the ligament of Treitz and created a hand sewn 2-layer end-to-end anastomosis. I placed a back row of 2-0 silk sutu res in Lembert style and then completed a hand sewn running 3-0 Vicryl suture full thickness. I use simple sutures on the back wall and use canal sutures around each side converting back to simple sutu res on the anterior row. I then placed an anterior row of 3-0 silk sutures in a Lembert style to com plete the 2-layer anastomoses. No mesenteric closure was required. I then mobilized the terminal il eum and lined it up alongside of the sigmoid colon. I elected to perform a stapled [id number] anas tomosis along the antimesenteric border. To that end, I cut the corner off the antimesenteric end of each and placed the limb of a SORAIDA stapler down each one, assembled the stapler, fired it resulting i n a [id number] anastomosis. The anastomosis was inspected with a ring forceps and no bleeding was noted. The resultant defect was closed with a TA 60 stapler. The staple line was then oversewn with interrupted sews of 3-0 silk suture. Care was taken to line up the mesentery so there was minimal o pening. Next, I thoroughly irrigated the abdominal cavity and checked the lesser sac and transverse mesocolon area for any bleeding and none was found. The pathologist was recalled so he could look at the GIST tumor and he confirmed that we had grossly clear margins. I then removed all the 5 mm troc ars and felt for any laparotomy packs. With none being found, I obtained a correct sponge and needle count x2. The fascia was then closed with interrupted sews of #1 Vicryl in a [id number] fashio n and the skin was approximated with stainless steel skin clips. Each 5 mm trocar site was closed wi th a single skin staple. At the end of the procedure, sponge and needle counts were correct x2. The patient tolerated the procedure well, was transported to the recovery room in stable condition. PROCEDURES: 1. Laparoscopic assisted subtotal colectomy. 2. Takedown of the splenic flexure and careful exploration of the lesser sac. 3. Extensive dissection in a very complex and dangerous area lasting 90 minutes. 4. Small bowel resection of the proximal jejunum with a hand sewn primary anastomosis. 5. Ligation of multiple major vessels including the ileocolic, colic and inferior mesenteric vein. 6. Stapled ileosigmoid anastomosis. Dictated By: KENNEY FROST MD CH/NTS Conf#: [id number] DID#: [id number] CC: CASSIE MARMOLEJO MD; DULCE GALINDO MD; MILAGRO KENNEDY MD; COLLEEN RODRÍGUEZ MD;*EndCC*
[2018-08-15] MEDS ORDERED: MAGNESIUM SULFATE 1 GM/D5W 100 ML IVPB ONE (15:00)
[2018-08-15] MEDS: DEXTROSE 5%-0.45% NACL 1,000 ML IV SCH (16:16)
[2018-08-15] MEDS ORDERED: NORepinephrine 8MG/250 ML (PMX 250 ML IV SCH (16:30)
[2018-08-16] VITALS (75 sets, daily range): BP systolic 76–121; BP diastolic 42–83; PULSE 97–111; RESP 13–30
[2018-08-16] MEDS: ACCU-CHEK XX SCH (04:45)
[2018-08-16] MEDS: morphine 2 MG INJ IV PRN ×2 (05:33→11:29)
--- NOTE | 2018-08-16 06:59 | CONS ---
Assessment/Plan Assessment/Plan Hospital Course (Demo Recall) Acute on chronic systolic CHF: euvolemic Right upper extremity DVT: see prior discussion. No anticoagulation for now Non-ischemic Cardiomyopathy PPM: [employer] 05/04. For ?complete heart block as 100% v paced. Normal function on interrogation and reprogramming 08/14 and 08/15 Pulm HTN: PAP 60s by echo Mild-moderate aortic stenosis Colon cancer: s/p subtotal colectomy 08/14 ESRD on HD -wean levophed with goal SBP >90 -HD per nephrology for volume management Consultation Date/Type/Reason Admit Date/Time Aug 02, 2018 at 10:57 Initial Consult Date 08/08/18 Type of Consult Cardiology Requesting Provider: JO HURST MD Date/Time of Note DATE: 08/16/18 TIME: 06:58 24 HR Interval Summary Free Text/Dictation Systolic in the 80s yesterday so started on low dose levophed. Still with abdominal pain but overall no complaints Exam/Review of Systems Exam Vitals Vital Signs Date Temp Pulse Resp B/P (MAP) Pulse Ox O2 O2 Flow FiO2 Time Delivery Rate 08/16/18 105 13 100/68 100 04:45 (79) 08/16/18 98.0 Nasal 2.0 04:00 Cannula Intake and Output 08/15/18 08/15/18 08/16/18 1515:00 23:00 07:00 IntakeIntake Total 470 ml 366.25 ml 218.75 ml OutputOutput Total 0 ml 0 ml 0 ml BalanceBalance 470 ml 366.25 ml 218.75 ml Constitutional: alert, oriented Psych: no complaints Neck: No jvd Respiratory: diminished breath sounds; No clear to auscultation Cardiovascular: regular rate and rhythm; No edema Gastrointestinal: soft; No non-tender (tender to palpation ), No distended Neurological: nl mental status, nl speech Results Result Diagram: 08/15/18 0426 08/16/18 0430 Results 24hrs Laboratory Tests Test 08/15/18 07:56 08/15/18 11:45 08/15/18 17:48 08/15/18 21:03 Bedside Glucose 255 H 253 H 196 164 Test 08/16/18 04:30 08/16/18 04:46 Sodium Level 137 Potassium Level 4.9 Chloride Level 103 Carbon Dioxide Level 24 Anion Gap 10 Blood Urea Nitrogen 34 H Creatinine 5.42 H Est Glomerular Filtrat Rate mL/min Glucose Level 137 # Calcium Level 8.0 L Magnesium Level 2.0 Total Bilirubin 0.0 L Direct Bilirubin 0.00 Indirect Bilirubin 0.0 Aspartate Amino 10 L Transf (AST/SGOT) Alanine 19 Aminotransferase (AL T/SGPT) Alkaline Phosphatase 96 Total Protein 4.7 L Albumin 2.1 L Globulin 2.60 Albumin/Globulin 0.80 Ratio Bedside Glucose 135 Medications Medication Current Medications Ondansetron HCl (Zofran Inj) 4 mg Q6H PRN IV NAUSEA/VOMITING; Start 08/02/18 at 13:00 Diagnostic Test (Pha) (Accu-Chek) 1 ea 02 XX Last administered on 08/16/18at 04:45; Admin Dose 1 EA; Start 08/03/18 at 02:00 Insulin Aspart (Novolog Insulin Pen) NOVOLOG *MILD* ALGORITHM WITH MEALS BEDTIME SC Last administered on 08/15/18at 17:51; Admin Dose 2 UNIT; Start 08/02/18 at 18:00 Glucose (Glutose) 15 gm Q15M PRN PO DECREASED GLUCOSE; Start 08/02/18 at 13:30 Glucose (Glutose) 22.5 gm Q15M PRN PO DECREASED GLUCOSE; Start 08/02/18 at 13:30 Dextrose (D50w Syringe) 25 ml Q15M PRN IV DECREASED GLUCOSE Last administered on 08/14/18at 07:35; Admin Dose 25 ML; Start 08/02/18 at 13:30 Dextrose (D50w Syringe) 50 ml Q15M PRN IV DECREASED GLUCOSE; Start 08/02/18 at 13:30 Glucagon (Glucagen) 1 mg Q15M PRN IM DECREASED GLUCOSE; Start 08/02/18 at 13:30 Glucose (Glutose) 15 gm Q15M PRN BUCCAL DECREASED GLUCOSE; Start 08/02/18 at 13:30 Cholecalciferol (Vitamin D) 1,000 unit DAILY PO Last administered on 08/13/18at 09:07; Admin Dose 1,000 UNIT; Start 08/03/18 at 09:00 Folic Acid (Folic Acid) 1 mg DAILY PO Last administered on 08/13/18at 09:07; Admin Dose 1 MG; Start 08/03/18 at 09:00 Sevelamer Carbonate (Renvela) 0.8 gm AC MEALS PO Last administered on 08/14/18 06:46; Admin Dose 0.8 GM; Start 08/02/18 at 17:30 Midodrine (Proamatine) 5 mg ON DIALYSIS DAYS PO Last administered on 08/12/18 09:34; Admin Dose 5 MG; Start 08/02/18 at 18:00 Insulin Glargine (Lantus) 15 units DAILY@0800 SC Last administered on 08/15/18 08:33; Admin Dose 15 UNITS; Start 08/03/18 at 12:00 Albumin Human 100 ml @ 100 mls/hr WITH DIALYSIS PRN IV SBP <90 DURING DIALYSIS Last administered on 08/12/18 09:17; Admin Dose 100 MLS/HR; Start 08/07/18 at 10:00 Gabapentin (Neurontin) 100 mg DAILY PO Last administered on 08/13/18 09:07; Admin Dose 100 MG; Start 08/07/18 at 11:30 Phenol (Cepastat Lozenge) 1 lozenge Q1H PRN MT COUGH Last administered on 08/08/18 02:34; Admin Dose 1 LOZENGE; Start 08/07/18 at 23:00 Dextrose/Sodium Chloride 1,000 ml @ 40 mls/hr Q24H IV Last administered on 08/15/18 16:16; Admin Dose 40 MLS/HR; Start 08/14/18 at 10:30 Morphine Sulfate (morphine) 2 mg Q4H PRN IV SEVERE PAIN LEVEL 7-10 Last administered on 08/16/18 05:33; Admin Dose 2 MG; Start 08/15/18 at 09:00 Norepinephrine 250 ml @ 1.875 mls/ hr TITRATE IV Last administered on 08/15/18 16:11; Admin Dose 3.75 MLS/HR; Start 08/15/18 at 16:30 LUCRETIA QUEEN Aug 16, 2018 06:59
[2018-08-16] MEDS: SEVELAMER CARBONATE 0.8 GM PKT PO SCH ×3 (07:05→17:05)
--- NOTE | 2018-08-16 07:31 | PN ---
Date/Time of Note Date/Time of Note DATE: 08/16/18 TIME: 07:20 Assessment/Plan Lines/Catheters IV C[facility]ter Type (from [facility]): AVF Blevins in Place (from Nrs): No Assessment/Plan Chief Complaint/Hosp Course 08/15/18 Pt is s/p major abdominal surgery ( adenocarcinoma of ascending colon and large infiltrating splenic flexure GIST w/ invasion into proximal jejunum) requiring 2 anastomoses ( ileo-sigmoid, and duodenal-jejunal anastomosis). Other findings at the time of surgery include mild to moderate ascites, and fine, nodularity of the liver - cirrhosis?-, and inflammation extending from the transverse colon mesentary to the pancreas, which felt firm). Decision to have the next dialysis as per nephrology. 08/16/18 Pt is on O2 ( 2 l/min) , and on Levophed. He is due to have dialysis this am at 0800. Stable but still critical Assessment/Plan Will try ice chips and sips of water. Dialysis per nephrology ( this am). Reassess after dialysis - pressors per Neph/ Cardiology will follow Subjective 24 Hr Interval Summary Pt is POD #2, but now on low dose Levophed for pressure support. Pt is at times confused though can be redirected easily w/ conversation. Only occ need for pain meds. Denies nausea. Paced heart as noted by Dr Meadows. VELMA labs are still pending Constitutional: no complaints, requiring O2 Feeding: NPO Pain Control: well controlled Exam/Review of Systems Vital Signs Vitals Vital Signs Date Temp Pulse Resp B/P (MAP) Pulse Ox O2 O2 Flow FiO2 Time Delivery Rate 08/16/18 103 19 93/65 (74) 06:45 08/16/18 99 06:30 08/16/18 97.4 Nasal 2.0 06:00 Cannula Intake and Output 08/15/18 08/15/18 08/16/18 1515:00 23:00 07:00 IntakeIntake Total 470 ml 366.25 ml 350.00 ml OutputOutput Total 0 ml 0 ml 0 ml BalanceBalance 470 ml 366.25 ml 350.00 ml Exam Constitutional: oriented (only if persist in conversation) Psych: no complaints Gastrointestinal: bowel sounds (a few ), surgical scars (healing well, and no erythema) Results Result Diagram: 08/15/18 3008 08/16/18 6860 GONZÁLEZ MERIDA MD Aug 16, 2018 07:30
--- NOTE | 2018-08-16 07:35 | QN ---
Documentation Comment Pt's albumin is 2.1 and not quite ready to eat so will have to consider TPN soon. If not able to eat by tomorrow would recommend. GONZÁLEZ MERIDA MD Aug 16, 2018 07:35
--- NOTE | 2018-08-16 08:24 | CONS ---
Assessment/Plan Assessment/Plan Hospital Course (Demo Recall) #Colon ca -now POD #3, doing well -per preliminary bx patient appears to have 2 separate masses with different pathology results. 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 Consultation Date/Type/Reason Admit Date/Time Aug 02, 2018 at 10:57 Initial Consult Date 08/09/18 Type of Consult oncology Reason for Consultation colon cancer Requesting Provider: JO HURST MD Date/Time of Note DATE: 08/16/18 TIME: 08:21 24 HR Interval Summary Free Text/Dictation pt currently on pressor support. tolerated surgery well. continues with HD Exam/Review of Systems Exam Vitals Vital Signs Date Temp Pulse Resp B/P (MAP) Pulse Ox O2 O2 Flow FiO2 Time Delivery Rate 08/16/18 103 19 93/65 (74) 06:45 08/16/18 99 06:30 08/16/18 97.4 Nasal 2.0 06:00 Cannula Intake and Output 08/15/18 08/15/18 08/16/18 1515:00 23:00 07:00 IntakeIntake Total 470 ml 366.25 ml 350.00 ml OutputOutput Total 0 ml 0 ml 0 ml BalanceBalance 470 ml 366.25 ml 350.00 ml Constitutional: alert, oriented Psych: no complaints Head: normocephalic Eyes: nl conjunctiva ENMT: nl external ears & nose Neck: supple Respiratory: clear to auscultation Cardiovascular: regular rate and rhythm Gastrointestinal: surgical scars, tender Musculoskeletal: nl extremities to inspection Results Result Diagram: 08/16/18 0430 08/16/18 0430 Results 24hrs Laboratory Tests Test 08/15/18 11:45 08/15/18 17:48 08/15/18 21:03 08/16/18 04:30 Bedside Glucose 253 H 196 164 White Blood Count 15.7 #H Red Blood Count 3.62 L Hemoglobin 11.2 L Hematocrit 35.5 L Mean Corpuscular 98.1 Volume Mean Corpuscular 30.9 Hemoglobin Mean Corpuscular 31.5 L Hemoglobin Concent Red Cell Distribution 17.2 H Width Platelet Count 128 L Mean Platelet Volume 11.7 H Immature Granulocytes 0.600 H % Neutrophils % 86.9 H Lymphocytes % 3.4 L Monocytes % 7.6 Eosinophils % 1.1 Basophils % 0.4 Nucleated Red Blood 0.0 Cells % Immature Granulocytes 0.100 H # Neutrophils # 13.6 H Lymphocytes # 0.5 L Monocytes # 1.2 H Eosinophils # 0.2 Basophils # 0.1 Nucleated Red Blood 0.0 Cells # Sodium Level 137 Potassium Level 4.9 Chloride Level 103 Carbon Dioxide Level 24 Anion Gap 10 Blood Urea Nitrogen 34 H Creatinine 5.42 H Est Glomerular Filtrat Rate mL/min Glucose Level 137 # Calcium Level 8.0 L Magnesium Level 2.0 Total Bilirubin 0.0 L Direct Bilirubin 0.00 Indirect Bilirubin 0.0 Aspartate Amino 10 L Transf (AST/SGOT) Alanine 19 Aminotransferase (ALT /SGPT) Alkaline Phosphatase 96 Total Protein 4.7 L Albumin 2.1 L Globulin 2.60 Albumin/Globulin 0.80 Ratio Test 08/16/18 04:46 Bedside Glucose 135 Medications Medication Current Medications Ondansetron HCl (Zofran Inj) 4 mg Q6H PRN IV NAUSEA/VOMITING; Start 08/02/18 at 13:00 Diagnostic Test (Pha) (Accu-Chek) 1 ea 02 XX Last administered on 08/16/18at 04:45; Admin Dose 1 EA; Start 08/03/18 at 02:00 Insulin Aspart (Novolog Insulin Pen) NOVOLOG *MILD* ALGORITHM WITH MEALS BEDTIME SC Last administered on 08/15/18at 17:51; Admin Dose 2 UNIT; Start 08/02/18 at 18:00 Glucose (Glutose) 15 gm Q15M PRN PO DECREASED GLUCOSE; Start 08/02/18 at 13:30 Glucose (Glutose) 22.5 gm Q15M PRN PO DECREASED GLUCOSE; Start 08/02/18 at 13:3 0 Dextrose (D50w Syringe) 25 ml Q15M PRN IV DECREASED GLUCOSE Last administered on 08/14/18 07:35; Admin Dose 25 ML; Start 08/02/18 at 13:30 Dextrose (D50w Syringe) 50 ml Q15M PRN IV DECREASED GLUCOSE; Start 08/02/18 at 13:30 Glucagon (Glucagen) 1 mg Q15M PRN IM DECREASED GLUCOSE; Start 08/02/18 at 13:30 Glucose (Glutose) 15 gm Q15M PRN BUCCAL DECREASED GLUCOSE; Start 08/02/18 at 13:30 Cholecalciferol (Vitamin D) 1,000 unit DAILY PO Last administered on 08/13/18 09:07; Admin Dose 1,000 UNIT; Start 08/03/18 at 09:00 Folic Acid (Folic Acid) 1 mg DAILY PO Last administered on 08/13/18 09:07; Admin Dose 1 MG; Start 08/03/18 at 09:00 Sevelamer Carbonate (Renvela) 0.8 gm AC MEALS PO Last administered on 08/14/18 06:46; Admin Dose 0.8 GM; Start 08/02/18 at 17:30 Midodrine (Proamatine) 5 mg ON DIALYSIS DAYS PO Last administered on 08/12/18 09:34; Admin Dose 5 MG; Start 08/02/18 at 18:00 Insulin Glargine (Lantus) 15 units DAILY@0800 SC Last administered on 08/15/18 08:33; Admin Dose 15 UNITS; Start 08/03/18 at 12:00 Albumin Human 100 ml @ 100 mls/hr WITH DIALYSIS PRN IV SBP <90 DURING DIALYSIS Last administered on 08/12/18 09:17; Admin Dose 100 MLS/HR; Start 08/07/18 at 1 0:00 Gabapentin (Neurontin) 100 mg DAILY PO Last administered on 08/13/18 09:07; Admin Dose 100 MG; Start 08/07/18 at 11:30; Status Hold Phenol (Cepastat Lozenge) 1 lozenge Q1H PRN MT COUGH Last administered on 08/08/18 02:34; Admin Dose 1 LOZENGE; Start 08/07/18 at 23:00 Dextrose/Sodium Chloride 1,000 ml @ 40 mls/hr Q24H IV Last administered on 08/15/18 16:16; Admin Dose 40 MLS/HR; Start 08/14/18 at 10:30 Morphine Sulfate (morphine) 2 mg Q4H PRN IV SEVERE PAIN LEVEL 7-10 Last administered on 08/16/18at 05:33; Admin Dose 2 MG; Start 08/15/18 at 09:00 Norepinephrine 250 ml @ 1.875 mls/ hr TITRATE IV Last administered on 08/15/18at 16:11; Admin Dose 3.75 MLS/HR; Start 08/15/18 at 16:30 JAGUAR CARTWRIGHT M.D. Aug 16, 2018 08:24
[2018-08-16] MEDS: INSULIN ASPART [NOVOLOG] 3 ML PEN SC SCH ×4 (09:01→20:57)
[2018-08-16] MEDS: CHOLECALCIFEROL 1,000 UNIT TAB PO SCH (09:29)
[2018-08-16] MEDS: FOLIC ACID 1 MG TAB PO SCH (09:29)
[2018-08-16] MEDS: INSULIN GLARGINE [LANTus] (100 UNITS/ML) SYG SC SCH (09:32)
[2018-08-16] MEDS: PIPER-TAZO 2.25 GM/NS 50 ML IVPB SCH ×3 (09:36→20:57)
--- NOTE | 2018-08-16 10:17 | CONS ---
Assessment/Plan Assessment/Plan Assessment/Plan (Daily) 1 End-stage renal disease, on hemodialysis,mwf with mild CHF 2. Bloody diarrhea with evidence of splenic flexure mass on the CT and possible fistula communicating through the small intestine status post colonoscopy with 2: Masses s/p subtotal colectomy POD 2 3. Hypotension. On Midodrin at home 4. History of congestive heart failure.1 End-stage renal disease, on hemodialysis,mwf with mild CHF 5. Hypercholesterolemia. 6. Total hip replacement. 7. Leukocytosis. 8. Hypoglycemia. 9. MAcrocytic hypochromic Anemia mixed etiology, recent blood loss and 2/2 kidney disease 10. 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 Plan - HD on hold due to clotted access - Dr Coelho called - stat ARTERIAL u/s - pressor as needed - iv zosyn > renally dosed -Midodrine on dialysis days for hypotension -Renally Dose all meds Consultation Date/Type/Reason Admit Date/Time Aug 02, 2018 at 10:57 Initial Consult Date 08/03/18 Requesting Provider: JO HURST MD Date/Time of Note DATE: 08/16/18 TIME: 10:13 24 HR Interval Summary Free Text/Dictation on low dose levophed wbc rising no bruit/thrill in herograft Exam/Review of Systems Exam Vitals Vital Signs Date Temp Pulse Resp B/P (MAP) Pulse Ox O2 O2 Flow FiO2 Time Delivery Rate 08/16/18 100 2.0 09:12 08/16/18 103 19 93/65 (74) 06:45 08/16/18 97.4 Nasal 06:00 Cannula Intake and Output 08/15/18 08/15/18 08/16/18 1515:00 23:00 07:00 IntakeIntake Total 470 ml 366.25 ml 350.00 ml OutputOutput Total 0 ml 0 ml 0 ml BalanceBalance 470 ml 366.25 ml 350.00 ml Exam Respiratory: diminished breath sounds R>L Cardiovascular: regular rate and rhythm Gastrointestinal: soft, bowel sounds (+) Extremities: b/l arm edema hero graft on left no bruit/thrill Results Result Diagram: 08/16/1842908/16/18 0430 Results 24hrs Laboratory Tests Test 08/15/18 11:45 08/15/18 17:48 08/15/18 21:03 08/16/18 04:30 Bedside Glucose 253 H 196 164 White Blood Count 15.7 #H Red Blood Count 3.62 L Hemoglobin 11.2 L Hematocrit 35.5 L Mean Corpuscular 98.1 Volume Mean Corpuscular 30.9 Hemoglobin Mean Corpuscular 31.5 L Hemoglobin Concent Red Cell Distribution 17.2 H Width Platelet Count 128 L Mean Platelet Volume 11.7 H Immature Granulocytes 0.600 H % Neutrophils % 86.9 H Lymphocytes % 3.4 L Monocytes % 7.6 Eosinophils % 1.1 Basophils % 0.4 Nucleated Red Blood 0.0 Cells % Immature Granulocytes 0.100 H # Neutrophils # 13.6 H Lymphocytes # 0.5 L Monocytes # 1.2 H Eosinophils # 0.2 Basophils # 0.1 Nucleated Red Blood 0.0 Cells # Sodium Level 137 Potassium Level 4.9 Chloride Level 103 Carbon Dioxide Level 24 Anion Gap 10 Blood Urea Nitrogen 34 H Creatinine 5.42 H Est Glomerular Filtrat Rate mL/min Glucose Level 137 # Calcium Level 8.0 L Magnesium Level 2.0 Total Bilirubin 0.0 L Direct Bilirubin 0.00 Indirect Bilirubin 0.0 Aspartate Amino 10 L Transf (AST/SGOT) Alanine 19 Aminotransferase (ALT /SGPT) Alkaline Phosphatase 96 Total Protein 4.7 L Albumin 2.1 L Globulin 2.60 Albumin/Globulin 0.80 Ratio Test 08/16/18 04:46 08/16/18 08:56 Bedside Glucose 135 142 Medications Medication Current Medications Ondansetron HCl (Zofran Inj) 4 mg Q6H PRN IV NAUSEA/VOMITING; Start 08/02/18 at 13:00 Diagnostic Test (Pha) (Accu-Chek) 1 ea 02 XX Last administered on 08/16/18at 04:45; Admin Dose 1 EA; Start 08/03/18 at 02:00 Insulin Aspart (Novolog Insulin Pen) NOVOLOG *MILD* ALGORITHM WITH MEALS BEDTIME SC Last administered on 08/16/18at 09:01; Admin Dose 1 UNIT; Start 08/02/18 at 18:00 Glucose (Glutose) 15 gm Q15M PRN PO DECREASED GLUCOSE; Start 08/02/18 at 13:30 Glucose (Glutose) 22.5 gm Q15M PRN PO DECREASED GLUCOSE; Start 08/02/18 at 13:30 Dextrose (D50w Syringe) 25 ml Q15M PRN IV DECREASED GLUCOSE Last administered on 08/14/18 07:35; Admin Dose 25 ML; Start 08/02/18 at 13:30 Dextrose (D50w Syringe) 50 ml Q15M PRN IV DECREASED GLUCOSE; Start 08/02/18 at 13:30 Glucagon (Glucagen) 1 mg Q15M PRN IM DECREASED GLUCOSE; Start 08/02/18 at 13:30 Glucose (Glutose) 15 gm Q15M PRN BUCCAL DECREASED GLUCOSE; Start 08/02/18 at 13:30 Cholecalciferol (Vitamin D) 1,000 unit DAILY PO Last administered on 08/16/18 09:29; Admin Dose 1,000 UNIT; Start 08/03/18 at 09:00 Folic Acid (Folic Acid) 1 mg DAILY PO Last administered on 08/16/18 09:29; Admin Dose 1 MG; Start 08/03/18 at 09:00 Sevelamer Carbonate (Renvela) 0.8 gm AC MEALS PO Last administered on 08/14/18 06:46; Admin Dose 0.8 GM; Start 08/02/18 at 17:30 Midodrine (Proamatine) 5 mg ON DIALYSIS DAYS PO Last administered on 08/12/18 09:34; Admin Dose 5 MG; Start 08/02/18 at 18:00 Insulin Glargine (Lantus) 15 units DAILY@0800 SC Last administered on 08/16/18 09:32; Admin Dose 15 UNITS; Start 08/03/18 at 12:00 Albumin Human 100 ml @ 100 mls/hr WITH DIALYSIS PRN IV SBP <90 DURING DIALYSIS Last administered on 08/12/18 09:17; Admin Dose 100 MLS/HR; Start 08/07/18 at 10:00 Gabapentin (Neurontin) 100 mg DAILY PO Last administered on 08/13/18 09:07; Admin Dose 100 MG; Start 08/07/18 at 11:30; Status Hold Phenol (Cepastat Lozenge) 1 lozenge Q1H PRN MT COUGH Last administered on 08/08/18 02:34; Admin Dose 1 LOZENGE; Start 08/07/18 at 23:00 Dextrose/Sodium Chloride 1,000 ml @ 40 mls/hr Q24H IV Last administered on 08/15/18 16:16; Admin Dose 40 MLS/HR; Start 08/14/18 at 10:30 Morphine Sulfate (morphine) 2 mg Q4H PRN IV SEVERE PAIN LEVEL 7-10 Last administered on 08/16/18 05:33; Admin Dose 2 MG; Start 08/15/18 at 09:00 Norepinephrine 250 ml @ 1.875 mls/ hr TITRATE IV Last administered on 08/15/18at 16:11; Admin Dose 3.75 MLS/HR; Start 08/15/18 at 16:30 Piperacillin Sod/ Tazobactam Sod 50 ml @ 100 mls/hr Q8 IVPB Last administered on 08/16/18at 09:36; Admin Dose 100 MLS/HR; Start 08/16/18 at 09:30 NNEKA FRITZ MD Aug 16, 2018 10:17
--- NOTE | 2018-08-16 11:33 | PN ---
Date/Time of Note Date/Time of Note DATE: 08/16/18 TIME: 11:30 Assessment/Plan VTE Prophylaxis Risk score (from Nsg)>0 risk: 17 SCD applied (from Nsg): No SCD contraindicated: other Pharmacological prophylaxis: other Lines/Catheters IV Catheter Type (from Nrsg): AVF Urinary Cath still in place: No Assessment/Plan Hospital Course Subjective No acute complaints except mild surgical site pain Objective Physical exam General: Patient is laying in bed and answers questions appropriately Mentation: Patient is alert and oriented 4, Head: Normocephalic atraumatic Eyes: EOMI, pupils reactive to light Neck: Supple, nontender, midline Respiratory: Clear to auscultation bilaterally Cardiovascular: regular rate, no obvious murmurs Gastrointestinal: tender to palpation, bowel sounds minimal Neurological: Moves all extremities spontaneously Skin: abdominal midline incision, bandaged, CDI Assessment/Plan Colonic mass at the splenic flexure and ascending colon - Dr. Meneses on board, Status post subtotal colectomy and small bowel resection on 08/14/18 - GI on board and appreciate recommendations. 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 Coelho for recs as he is patient's vascular surgeon GI bleed -2/2 to above mass -resolved Arm swelling --Ultrasound showed right brachial DVT as well as thrombosis of the left cephalic vein. Patient has 0 symptoms at this time. Discussed with patient and his family, that upper extremity DVTs are usually treated conservatively unless symptomatic. Patient has no discomfort at this time. Patient's midline on his right arm is the likely culprit for the DVT on his right brachial vein. -remove offending midline which caused DVT as patient now has central line for IV access. -dialysis catheter in left arm stable. -monitor, warm compresses. -Patient is likely an hypercoagulable state due to his carcinoma, after discussion with patient's long time vascular surgeon, when stable will place patient on low dose eliquis. Diabetes - A1c noted - counseled about importance of diet choices and glucose control - Continue Lantus and ISS Esophagitis - Continue PPI Hypothyroidism - Continue home Synthroid Persistent cough - improvement with Gabapentin? Nonischemic CM - pacer in place - Chronic per outpatient Agent Mild acute on chronic systolic HF - fluid removal during HD Disposition - diet per surgery -cont icu care, downgrade when ok with colorectal surgery -more than 40 minutes of critical care time spent on this encounter Result Diagram: 08/16/18 0430 08/16/18 0430 Results 24hrs Laboratory Tests Test 08/15/18 11:45 08/15/18 17:48 08/15/18 21:03 08/16/18 04:30 Bedside Glucose 253 H 196 164 White Blood Count 15.7 #H Red Blood Count 3.62 L Hemoglobin 11.2 L Hematocrit 35.5 L Mean Corpuscular 98.1 Volume Mean Corpuscular 30.9 Hemoglobin Mean Corpuscular 31.5 L Hemoglobin Concent Red Cell Distribution 17.2 H Width Platelet Count 128 L Mean Platelet Volume 11.7 H Immature Granulocytes 0.600 H % Neutrophils % 86.9 H Lymphocytes % 3.4 L Monocytes % 7.6 Eosinophils % 1.1 Basophils % 0.4 Nucleated Red Blood 0.0 Cells % Immature Granulocytes 0.100 H # Neutrophils # 13.6 H Lymphocytes # 0.5 L Monocytes # 1.2 H Eosinophils # 0.2 Basophils # 0.1 Nucleated Red Blood 0.0 Cells # Sodium Level 137 Potassium Level 4.9 Chloride Level 103 Carbon Dioxide Level 24 Anion Gap 10 Blood Urea Nitrogen 34 H Creatinine 5.42 H Est Glomerular Filtrat Rate mL/min Glucose Level 137 # Calcium Level 8.0 L Magnesium Level 2.0 Total Bilirubin 0.0 L Direct Bilirubin 0.00 Indirect Bilirubin 0.0 Aspartate Amino 10 L Transf (AST/SGOT) Alanine 19 Aminotransferase (ALT /SGPT) Alkaline Phosphatase 96 Total Protein 4.7 L Albumin 2.1 L Globulin 2.60 Albumin/Globulin 0.80 Ratio Test 08/16/18 04:46 08/16/18 08:56 Bedside Glucose 135 142 Exam/Review of Systems Exam Vitals Vital Signs Date Temp Pulse Resp B/P (MAP) Pulse Ox O2 O2 Flow FiO2 Time Delivery Rate 08/16/18 100 2.0 09:12 08/16/18 103 19 93/65 (74) 06:45 08/16/18 97.4 Nasal 06:00 Cannula Intake and Output 08/15/18 08/15/18 08/16/18 1515:00 23:00 07:00 IntakeIntake Total 470 ml 366.25 ml 350.00 ml OutputOutput Total 0 ml 0 ml 0 ml BalanceBalance 470 ml 366.25 ml 350.00 ml Results Results 24hrs Laboratory Tests Test 08/15/18 11:45 08/15/18 17:48 08/15/18 21:03 08/16/18 04:30 Bedside Glucose 253 H 196 164 White Blood Count 15.7 #H Red Blood Count 3.62 L Hemoglobin 11.2 L Hematocrit 35.5 L Mean Corpuscular 98.1 Volume Mean Corpuscular 30.9 Hemoglobin Mean Corpuscular 31.5 L Hemoglobin Concent Red Cell Distribution 17.2 H Width Platelet Count 128 L Mean Platelet Volume 11.7 H Immature Granulocytes 0.600 H % Neutrophils % 86.9 H Lymphocytes % 3.4 L Monocytes % 7.6 Eosinophils % 1.1 Basophils % 0.4 Nucleated Red Blood 0.0 Cells % Immature Granulocytes 0.100 H # Neutrophils # 13.6 H Lymphocytes # 0.5 L Monocytes # 1.2 H Eosinophils # 0.2 Basophils # 0.1 Nucleated Red Blood 0.0 Cells # Sodium Level 137 Potassium Level 4.9 Chloride Level 103 Carbon Dioxide Level 24 Anion Gap 10 Blood Urea Nitrogen 34 H Creatinine 5.42 H Est Glomerular Filtrat Rate mL/min Glucose Level 137 # Calcium Level 8.0 L Magnesium Level 2.0 Total Bilirubin 0.0 L Direct Bilirubin 0.00 Indirect Bilirubin 0.0 Aspartate Amino 10 L Transf (AST/SGOT) Alanine 19 Aminotransferase (ALT /SGPT) Alkaline Phosphatase 96 Total Protein 4.7 L Albumin 2.1 L Globulin 2.60 Albumin/Globulin 0.80 Ratio Test 08/16/18 04:46 08/16/18 08:56 Bedside Glucose 135 142 Medications Medication Current Medications Ondansetron HCl (Zofran Inj) 4 mg Q6H PRN IV NAUSEA/VOMITING; Start 08/02/18 at 13:00 Diagnostic Test (Pha) (Accu-Chek) 1 ea 02 XX Last administered on 08/16/18at 04:45; Admin Dose 1 EA; Start 08/03/18 at 02:00 Insulin Aspart (Novolog Insulin Pen) NOVOLOG *MILD* ALGORITHM WITH MEALS BEDTIME SC Last administered on 08/16/18 09:01; Admin Dose 1 UNIT; Start 08/02/18 at 18:00 Glucose (Glutose) 15 gm Q15M PRN PO DECREASED GLUCOSE; Start 08/02/18 at 13:30 Glucose (Glutose) 22.5 gm Q15M PRN PO DECREASED GLUCOSE; Start 08/02/18 at 13:30 Dextrose (D50w Syringe) 25 ml Q15M PRN IV DECREASED GLUCOSE Last administered on 08/14/18 07:35; Admin Dose 25 ML; Start 08/02/18 at 13:30 Dextrose (D50w Syringe) 50 ml Q15M PRN IV DECREASED GLUCOSE; Start 08/02/18 at 13:30 Glucagon (Glucagen) 1 mg Q15M PRN IM DECREASED GLUCOSE; Start 08/02/18 at 13:30 Glucose (Glutose) 15 gm Q15M PRN BUCCAL DECREASED GLUCOSE; Start 08/02/18 at 13:30 Cholecalciferol (Vitamin D) 1,000 unit DAILY PO Last administered on 08/16/18 09:29; Admin Dose 1,000 UNIT; Start 08/03/18 at 09:00 Folic Acid (Folic Acid) 1 mg DAILY PO Last administered on 08/16/18 09:29; Admin Dose 1 MG; Start 08/03/18 at 09:00 Sevelamer Carbonate (Renvela) 0.8 gm AC MEALS PO Last administered on 08/14/18 06:46; Admin Dose 0.8 GM; Start 08/02/18 at 17:30 Midodrine (Proamatine) 5 mg ON DIALYSIS DAYS PO Last administered on 08/12/18 09:34; Admin Dose 5 MG; Start 08/02/18 at 18:00 Insulin Glargine (Lantus) 15 units DAILY@0800 SC Last administered on 08/16/18 09:32; Admin Dose 15 UNITS; Start 08/03/18 at 12:00 Albumin Human 100 ml @ 100 mls/hr WITH DIALYSIS PRN IV SBP <90 DURING DIALYSIS Last administered on 08/12/18 09:17; Admin Dose 100 MLS/HR; Start 08/07/18 at 10:00 Gabapentin (Neurontin) 100 mg DAILY PO Last administered on 08/13/18 09:07; Admin Dose 100 MG; Start 08/07/18 at 11:30; Status Hold Phenol (Cepastat Lozenge) 1 lozenge Q1H PRN MT COUGH Last administered on 08/08/18 02:34; Admin Dose 1 LOZENGE; Start 08/07/18 at 23:00 Dextrose/Sodium Chloride 1,000 ml @ 40 mls/hr Q24H IV Last administered on 08/15/18 16:16; Admin Dose 40 MLS/HR; Start 08/14/18 at 10:30 Morphine Sulfate (morphine) 2 mg Q4H PRN IV SEVERE PAIN LEVEL 7-10 Last administered on 08/16/18 05:33; Admin Dose 2 MG; Start 08/15/18 at 09:00 Norepinephrine 250 ml @ 1.875 mls/ hr TITRATE IV Last administered on 08/15/18at 16:11; Admin Dose 3.75 MLS/HR; Start 08/15/18 at 16:30 Piperacillin Sod/ Tazobactam Sod 50 ml @ 100 mls/hr Q8 IVPB Last administered on 08/16/18at 09:36; Admin Dose 100 MLS/HR; Start 08/16/18 at 09:30 DULCE GALINDO Aug 16, 2018 11:33
[2018-08-16] MEDS ORDERED: PIPER-TAZO 3.375 GM IV (PMX) 100 ML IVPB SCH (12:00)
[2018-08-16] MEDS: FAMOTIDINE 20 MG INJ IV SCH (14:44)
[2018-08-16] MEDS ORDERED: LIDOCAINE 1% (MDV) 20 ML INJ ONE (15:42)
[2018-08-16] MEDS ORDERED: FENTAnyl 50 MCG/ML VIAL ONE (15:42)
[2018-08-16] MEDS ORDERED: MIDAZOLAM 1 MG/ML 2 ML INJ ONE (15:42)
[2018-08-16] MEDS ORDERED: HEPARIN 1000 UNITS/ML 10 ML INJ ONE ×2 (15:42→16:32)
[2018-08-16] MEDS ORDERED: HEPARIN 1000 UNITS/NS (A-LINE) 1,000 ML ONE (15:42)
--- NOTE | 2018-08-16 16:30 | HPN ---
Date/Time of Note Date/Time of Note DATE: 08/16/18 TIME: 16:30 Interval H&P Admission Note Pt. seen H&P reviewed: No system changes SOLO WILLIS MD Aug 16, 2018 16:30
[2018-08-16] MEDS ORDERED: SOD CHLORIDE 0.9% 500 ML ONE (16:32)
[2018-08-16] MEDS: DEXTROSE 5%-0.45% NACL 1,000 ML IV SCH (17:50)
--- NOTE | 2018-08-16 18:00 | RADRPT ---
PROCEDURE: PLACEMENT RIGHT COMMON FEMORAL VEIN TUNNELED DIALYSIS CATHETER. CLINICAL INDICATION: Renal failure. TECHNIQUE: Informed consent was obtained. Risks including bleeding and infection were explained to the patient. The patient understood and was willing to proceed. A procedural pause was performed. The patient's na me, date of , and procedure to be performed were verified. The central line was inserted with al l elements of maximal sterile barrier technique. All of the following were used: head covering, facia l mask, sterile gown, sterile gloves, a large sterile sheet, hand hygiene, and 2% chlorhexidine for cutaneous antisepsis. The right groin and right thigh were prepped and draped in usual sterile fashi on. Following the local injection of Xylocaine, the right common femoral vein was punctured under sonogra [facility] guidance with a 20-gauge needle through which a 0.018 inch floppy tip guidewire was advanced int o the inferior vena cava. The tract was dilated to 5 [place] and the wire was then replaced with a 0.0 35 in Amplatz guidewire. A tunnel was then created from the anterior right thigh to the puncture sit e in the right inguinal region and the catheter was pulled through the tract. Serial dilatation was then performed and a 16 Burkinan peel away sheath was introduced. The 14.5 Burkin[place] 50 cm chronic dialysis catheter was advanced through the 16 Burkinan peel-away sheath. The tip of the catheter was confirmed in position within the right atrium. The peel-away sheath was r emoved. The 2 ports were each flushed with 3.1 ml of 1:1000 heparin. The catheter was secured to the skin wi th 0 silk. The wound in the inguinal region was closed with 3-0 Vicryl suture using subcuticular ethan hnique. The site was dressed. Specimens: None. Blood loss: 5 ml. Complications: None. Medical Office Asst: Derrell Carter - lab support technician staff. Anesthesia: Local and moderate sedation. Graft/Implant: Right common femoral vein tunneled dialysis catheter. COMPARISON: None. FINDINGS: Ultrasound images were recorded and stored in the patient's medical record. Final radiographic images demonstrate the tip of the catheter in the lower right atrium. A total of 0.1 minutes of fluoroscopy time was used. The ultrasound images demonstrate the needle entering the femoral vein. 6 series of images of the abdomen and chest were obtained with image intensifier. IMPRESSION: 1. Satisfactory placement of tunneled right femoral dialysis catheter. RPTAT: QQ .Rachid Keith MD, Date Time Electronically viewed and signed by .Rachid Keith MD, on 08/16/2018 18:00 .R/
[2018-08-16] MEDS: DEXTROSE 50% 50 ML SYRINGE IV PRN (20:56)
[2018-08-16] MEDS: ALBUMIN HUMAN 25% 100 ML IV PRN (21:08)
--- NOTE | 2018-08-16 21:14 | CONS ---
DATE OF ADMISSION: 08/02/2018 DATE OF CONSULTATION: 08/16/2018 Dear Doctors: Mr. Buck is a 78-year-old gentleman known to our Vascular Surgery Service Group secondary to his lo ngstanding history of end-stage renal disease and central occlusion. It appears that the patient was admitted to [facility] secondary to having bloody diarrhea that started about 10 d ays ago in mid July. During his workup, it was identified the patient has a large splenic flexur e mass, which was concerning for possible malignancy and being fungating. Subsequently, he underwent extensive abdominal surgery with our general surgery colleagues for laparoscopic assisted subtotal c olectomy. During his hospitalization course over the past 15 days, the patient has been tolerating h is dialysis via our advanced left upper extremity AV graft creation with a central stent graft that w as done nearly about a year ago for him. This procedure was done for him secondary to having central occlusion and having a last resort of upper extremity access for the patient. The patient had been coming along well from our standpoint. As of his previous evaluation of his graft, the patient had a dequate flow and patent graft. It appears that during his hospitalization, the patient's graft has t hrombosed since his last session and vascular surgery consultation was obtained for further evaluatio n. At the moment, the patient is able to answer some simple questions and does have some abdominal p ain, which corresponds to his incisional area. Otherwise, denies shortness of breath or chest pain. REVIEW OF SYSTEMS: A 14-point review performed and negative except what is mentioned in the HPI. PAST MEDICAL HISTORY: Entails end-stage renal disease, central occlusion. PAST SURGICAL HISTORY: Multiple upper extremity fistula creations, multiple chest wall catheters, hy pothyroidism, esophagitis, diabetes, colon mass, coronary artery disease, hypertension, end-stage melissa al disease, anemia of chronic disease, previous coronary interventions, congestive heart failure, uns pecified type, cardiomyopathy. PAST SURGICAL HISTORY: As noted. SOCIAL HISTORY: He denies current tobacco, alcohol or illicit drug use. FAMILY HISTORY: Positive for hypertension. PHYSICAL EXAMINATION: GENERAL: The patient is awake, can answer some simple questions. HEENT: Normocephalic, atraumatic. Mucosa moist. NECK: Supple, no carotid bruit. PULMONARY: Coarse breath sounds bilaterally. CARDIOVASCULAR: S1, S2 present. ABDOMEN: Softly distended. Incisional tenderness. Some hypoactive bowel sounds. Surgical incision line with will intact and clean. EXTREMITIES: Right lower extremity palpable femoral pulse, nonpalpable pedal pulse. Motor and senso ry intact. Capillary refill 3 seconds. Left lower extremity palpable femoral pulse, nonpalpable ped al pulse. Motor and sensory intact. Capillary refill 3 seconds. Left upper extremity palpable brac hial pulse. Motor and sensory intact. Capillary refill 3 seconds. AV graft with no bruit or thrill . ASSESSMENT AND PLAN: 1. End-stage renal disease and central occlusion: It seems that the patient's left upper extremity AV graft has thrombosed since his last dialysis session on Sunday. From a vascular surgery standp oint, this patient has a very complex advanced access creation with a central stent graft placement ( HeRO graft) which would involve a complex declotting intervention. However, given the patient's rece nt admission hospitalization with hematochezia, colon mass, colon resection still being in the critic al status in the ICU. We would not recommend undergoing declotting at this time, As this is a graft that we can plan to attend to this matter in the near future and be able to put his fistula back in line. For now, I recommend for our interventional radiologist to place a permanent hemodialysis cath eter for him. Optimize vascular status (BP meds, diet, nutrition, exercise, sugar control, antiplatelets). Discussed findings, plan and management with the patient's and primary service and they understa nd. We will continue to follow the patient's progress from a vascular standpoint. Thank you for allowing us to partake in the care of your patient. Please call with any questions. Sincerely, Dictated By: JI HILLS/NTS Conf#: [id number] DID#: [id number] CC: CASSIE MARMOLEJO MD; MILAGRO KENNEDY MD; DULCE GALINDO MD;*EndCC*
[2018-08-17] VITALS (48 sets, daily range): BP systolic 86–110; BP diastolic 55–77; PULSE 87–102; RESP 6–28
[2018-08-17] MEDS: HEPARIN 1000 UNITS/ML 10 ML INJ CATHETER SCH (00:19)
[2018-08-17] MEDS: ACCU-CHEK XX SCH (02:21)
[2018-08-17] MEDS: morphine 2 MG INJ IV PRN (02:46)
[2018-08-17] MEDS: PIPER-TAZO 2.25 GM/NS 50 ML IVPB SCH ×3 (06:03→21:11)
[2018-08-17] MEDS: INSULIN ASPART [NOVOLOG] 3 ML PEN SC SCH ×4 (07:35→21:11)
[2018-08-17] MEDS: INSULIN GLARGINE [LANTus] (100 UNITS/ML) SYG SC SCH (08:00)
[2018-08-17] MEDS: CHOLECALCIFEROL 1,000 UNIT TAB PO SCH (08:42)
[2018-08-17] MEDS: SEVELAMER CARBONATE 0.8 GM PKT PO SCH ×3 (08:42→18:04)
[2018-08-17] MEDS: FOLIC ACID 1 MG TAB PO SCH (08:42)
[2018-08-17] MEDS: FAMOTIDINE 20 MG INJ IV SCH (08:42)
--- NOTE | 2018-08-17 09:25 | PN ---
Date/Time of Note Date/Time of Note DATE: 08/17/18 TIME: 09:24 Objective Vitals Vital Signs Date Temp Pulse Resp B/P (MAP) Pulse Ox O2 O2 Flow FiO2 Time Delivery Rate 08/17/18 97 23 93/60 (71) 96 08:30 08/17/18 98.6 Nasal 2.0 08:00 Cannula Intake and Output 08/16/18 08/16/18 08/17/18 1515:00 23:00 07:00 IntakeIntake Total 546.875 ml 430 ml 470 ml OutputOutput Total 0 ml 0 ml 2200 ml BalanceBalance 546.875 ml 430 ml -1730 ml Results Result Diagram: 08/17/18 04208/17/18 042 Medications Medications Current Medications Ondansetron HCl (Zofran Inj) 4 mg Q6H PRN IV NAUSEA/VOMITING; Start 08/02/18 at 13:00 Diagnostic Test (Pha) (Accu-Chek) 1 ea 02 XX Last administered on 08/17/18at 02:21; Admin Dose 1 EA; Start 08/03/18 at 02:00 Insulin Aspart (Novolog Insulin Pen) NOVOLOG *MILD* ALGORITHM WITH MEALS BEDTIME SC Last administered on 08/16/18at 12:15; Admin Dose 1 UNIT; Start 08/02/18 at 18:00 Glucose (Glutose) 15 gm Q15M PRN PO DECREASED GLUCOSE; Start 08/02/18 at 13:30 Glucose (Glutose) 22.5 gm Q15M PRN PO DECREASED GLUCOSE; Start 08/02/18 at 13:30 Dextrose (D50w Syringe) 25 ml Q15M PRN IV DECREASED GLUCOSE Last administered on 08/16/18at 20:56; Admin Dose 25 ML; Start 08/02/18 at 13:30 Dextrose (D50w Syringe) 50 ml Q15M PRN IV DECREASED GLUCOSE; Start 08/02/18 at 13:30 Glucagon (Glucagen) 1 mg Q15M PRN IM DECREASED GLUCOSE; Start 08/02/18 at 13:30 Glucose (Glutose) 15 gm Q15M PRN BUCCAL DECREASED GLUCOSE; Start 08/02/18 at 13:30 Cholecalciferol (Vitamin D) 1,000 unit DAILY PO Last administered on 08/17/18at 08:42; Admin Dose 1,000 UNIT; Start 08/03/18 at 09:00 Folic Acid (Folic Acid) 1 mg DAILY PO Last administered on 08/17/18 08:42; Admin Dose 1 MG; Start 08/03/18 at 09:00 Sevelamer Carbonate (Renvela) 0.8 gm AC MEALS PO Last administered on 08/17/18 08:42; Admin Dose 0.8 GM; Start 08/02/18 at 17:30 Midodrine (Proamatine) 5 mg ON DIALYSIS DAYS PO Last administered on 08/12/18 09:34; Admin Dose 5 MG; Start 08/02/18 at 18:00 Insulin Glargine (Lantus) 15 units DAILY@0800 SC Last administered on 08/16/18 09:32; Admin Dose 15 UNITS; Start 08/03/18 at 12:00 Albumin Human 100 ml @ 100 mls/hr WITH DIALYSIS PRN IV SBP <90 DURING DIALYSIS Last administered on 08/16/18 21:08; Admin Dose 100 MLS/HR; Start 08/07/18 at 10:00 Gabapentin (Neurontin) 100 mg DAILY PO Last administered on 08/13/18 09:07; Admin Dose 100 MG; Start 08/07/18 at 11:30; Status Hold Phenol (Cepastat Lozenge) 1 lozenge Q1H PRN MT COUGH Last administered on 08/08/18 02:34; Admin Dose 1 LOZENGE; Start 08/07/18 at 23:00 Dextrose/Sodium Chloride 1,000 ml @ 40 mls/hr Q24H IV Last administered on 08/16/18 17:50; Admin Dose 40 MLS/HR; Start 08/14/18 at 10:30 Morphine Sulfate (morphine) 2 mg Q4H PRN IV SEVERE PAIN LEVEL 7-10 Last administered on 08/17/18 02:46; Admin Dose 2 MG; Start 08/15/18 at 09:00 Norepinephrine 250 ml @ 1.875 mls/ hr TITRATE IV Last administered on 08/15/18 16:11; Admin Dose 3.75 MLS/HR; Start 08/15/18 at 16:30 Piperacillin Sod/ Tazobactam Sod 50 ml @ 100 mls/hr Q8 IVPB Last administered on 08/17/18 06:03; Admin Dose 100 MLS/HR; Start 08/16/18 at 09:30 Famotidine (Pepcid Iv) 20 mg DAILY IV Last administered on 08/17/18at 08:42; Admin Dose 20 MG; Start 08/16/18 at 13:00 Heparin Sodium (Porcine) (Heparin (1000 Units/ml)) 6,100 unit AFTER DIALYSIS CATHETER Last administered on 08/17/18at 00:19; Admin Dose 6,100 UNIT; Start 08/16/18 at 22:30 VTE Prophylaxis Risk score (from Ns)>0 risk: 11 SCD applied (from [facility] [place]): Yes Lines/Catheters IV Catheter Type: Granger in Place: Yes Cont'd granger catheter reason: terminal illness/intractable pain Assessment/Plan Hospital Course Subjective No acute complaints except mild surgical site pain Objective Physical exam General: Patient is laying in bed and answers questions appropriately Mentation: Patient is alert and oriented 4, Head: Normocephalic atraumatic Eyes: EOMI, pupils reactive to light Neck: Supple, nontender, midline Respiratory: Clear to auscultation bilaterally Cardiovascular: regular rate, no obvious murmurs Gastrointestinal: tender to palpation, bowel sounds minimal Neurological: Moves all extremities spontaneously Skin: abdominal midline incision, bandaged, CDI Assessment/Plan Colonic mass at the splenic flexure and ascending colon - Dr. Meneses on board, Status post subtotal colectomy and small bowel resection on 08/14/18 - GI on board and appreciate recommendations. 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 Coelho for recs as he is patient's vascular surgeon, recommended filemon for now until we can fully anticoagulate. GI bleed -2/2 to above mass -resolved -ok to start heparin subq for DVT prophylaxis per general surgery. Arm swelling --Ultrasound showed right brachial DVT as well as thrombosis of the left cephalic vein. Patient has 0 symptoms at this time. Discussed with patient and his family, that upper extremity DVTs are usually treated conservatively unless symptomatic. Patient has no discomfort at this time. Patient's midline on his right arm is the likely culprit for the DVT on his right brachial vein. -remove offending midline which caused DVT as patient now has central line for IV access. -dialysis catheter in left arm stable. -monitor, warm compresses. -Patient is likely an hypercoagulable state due to his carcinoma, after discussion with patient's long time vascular surgeon, when stable will place patient on low dose eliquis. Diabetes - A1c noted - counseled about importance of diet choices and glucose control - Continue Lantus and ISS Esophagitis - Continue PPI Hypothyroidism - Continue home Synthroid Persistent cough - improvement with Gabapentin? Nonischemic CM - pacer in place - Chronic per outpatient [employer] Mild acute on chronic systolic HF - fluid removal during HD Disposition - diet per surgery -cont icu care, downgrade when ok with colorectal surgery -more than 40 minutes of critical care time spent on this encounter DULCE GALINDO Aug 17, 2018 09:25
--- NOTE | 2018-08-17 10:44 | CONS ---
Assessment/Plan Assessment/Plan Assessment/Plan (Daily) #Colon ca -now POD #4, doing well -per preliminary bx patient appears to have 2 separate masses with different pathology results. 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 Hodges. Dw staff Consultation Date/Type/Reason Admit Date/Time Aug 02, 2018 at 10:57 Initial Consult Date 08/09/18 Type of Consult oncology Reason for Consultation Colon ca Requesting Provider: JO HURST MD Date/Time of Note DATE: 08/17/18 TIME: 10:44 24 HR Interval Summary Free Text/Dictation POD # 4 alert; sleepy; seems comfortable no new events reported last night Constitutional: requiring IVF, requiring O2 Exam/Review of Systems Exam Vitals Vital Signs Date Temp Pulse Resp B/P (MAP) Pulse Ox O2 O2 Flow FiO2 Time Delivery Rate 08/17/18 94 26 93/63 (73) 98 Nasal 2.0 10:00 Cannula 08/17/18 98.6 08:00 Intake and Output 08/16/18 08/16/18 08/17/18 1414:59 22:59 06:59 IntakeIntake Total 550.625 ml 430 ml 470 ml OutputOutput Total 0 ml 0 ml 2200 ml BalanceBalance 550.625 ml 430 ml -1730 ml Constitutional: alert, oriented (name only), well developed Eyes: nl lids, nl sclera ENMT: nl external ears & nose Neck: supple Respiratory: clear to auscultation (bilaterally) Cardiovascular: nl pulses, other (s1s2) Gastrointestinal: soft, non-tender Musculoskeletal: muscle weakness Extremities: edema (traace) Neurological: nl speech, confused Lymph: nontender Results Result Diagram: 08/17/1841908/17/18 042 Results 24hrs Laboratory Tests Test 08/16/18 12:12 08/16/18 17:50 08/16/18 20:51 08/16/18 21:17 Bedside Glucose 147 92 65 L 98 Test 08/16/18 22:19 08/17/18 02:10 08/17/18 04:20 08/17/18 07:52 Bedside Glucose 96 71 86 White Blood Count 14.6 H Red Blood Count 3.13 L Hemoglobin 9.6 L Hematocrit 30.0 L Mean Corpuscular Volume 95.8 Mean Corpuscular 30.7 Hemoglobin Mean Corpuscular 32.0 Hemoglobin Concent Red Cell Distribution 16.4 H Width Platelet Count 103 L Mean Platelet Volume 11.7 H Immature Granulocytes % 0.800 H Neutrophils % 85.5 H Lymphocytes % 3.4 L Monocytes % 6.2 Eosinophils % 3.8 Basophils % 0.3 Nucleated Red Blood 0.0 Cells % Immature Granulocytes # 0.120 H Neutrophils # 12.5 H Lymphocytes # 0.5 L Monocytes # 0.9 Eosinophils # 0.6 H Basophils # 0.0 Nucleated Red Blood 0.0 Cells # Sodium Level 138 Potassium Level 4.1 Chloride Level 102 Carbon Dioxide Level 26 Anion Gap 10 Blood Urea Nitrogen 23 #H Creatinine 4.14 #H Est Glomerular Filtrat Rate mL/min Glucose Level 91 # Calcium Level 8.3 L Phosphorus Level 3.6 Magnesium Level 2.0 Medications Medication Current Medications Ondansetron HCl (Zofran Inj) 4 mg Q6H PRN IV NAUSEA/VOMITING; Start 08/02/18 at 13:00 Diagnostic Test (Pha) (Accu-Chek) 1 ea 02 XX Last administered on 08/17/18at 02:21; Admin Dose 1 EA; Start 08/03/18 at 02:00 Insulin Aspart (Novolog Insulin Pen) NOVOLOG *MILD* ALGORITHM WITH MEALS BEDTIME SC Last administered on 08/16/18at 12:15; Admin Dose 1 UNIT; Start 08/02/18 at 18:00 Glucose (Glutose) 15 gm Q15M PRN PO DECREASED GLUCOSE; Start 08/02/18 at 13:30 Glucose (Glutose) 22.5 gm Q15M PRN PO DECREASED GLUCOSE; Start 08/02/18 at 13:30 Dextrose (D50w Syringe) 25 ml Q15M PRN IV DECREASED GLUCOSE Last administered on 08/16/18at 20:56; Admin Dose 25 ML; Start 08/02/18 at 13:30 Dextrose (D50w Syringe) 50 ml Q15M PRN IV DECREASED GLUCOSE; Start 08/02/18 at 13:30 Glucagon (Glucagen) 1 mg Q15M PRN IM DECREASED GLUCOSE; Start 08/02/18 at 13:30 Glucose (Glutose) 15 gm Q15M PRN BUCCAL DECREASED GLUCOSE; Start 08/02/18 at 13:30 Cholecalciferol (Vitamin D) 1,000 unit DAILY PO Last administered on 08/17/18 08:42; Admin Dose 1,000 UNIT; Start 08/03/18 at 09:00 Folic Acid (Folic Acid) 1 mg DAILY PO Last administered on 08/17/18 08:42; Admin Dose 1 MG; Start 08/03/18 at 09:00 Sevelamer Carbonate (Renvela) 0.8 gm AC MEALS PO Last administered on 08/17/18 08:42; Admin Dose 0.8 GM; Start 08/02/18 at 17:30 Midodrine (Proamatine) 5 mg ON DIALYSIS DAYS PO Last administered on 08/12/18 09:34; Admin Dose 5 MG; Start 08/02/18 at 18:00 Insulin Glargine (Lantus) 15 units DAILY@0800 SC Last administered on 08/16/18 09:32; Admin Dose 15 UNITS; Start 08/03/18 at 12:00 Albumin Human 100 ml @ 100 mls/hr WITH DIALYSIS PRN IV SBP <90 DURING DIALYSIS Last administered on 08/16/18 21:08; Admin Dose 100 MLS/HR; Start 08/07/18 at 10:00 Gabapentin (Neurontin) 100 mg DAILY PO Last administered on 08/13/18 09:07; Admin Dose 100 MG; Start 08/07/18 at 11:30; Status Hold Phenol (Cepastat Lozenge) 1 lozenge Q1H PRN MT COUGH Last administered on 08/08/18 02:34; Admin Dose 1 LOZENGE; Start 08/07/18 at 23:00 Dextrose/Sodium Chloride 1,000 ml @ 40 mls/hr Q24H IV Last administered on 08/16/18 17:50; Admin Dose 40 MLS/HR; Start 08/14/18 at 10:30 Morphine Sulfate (morphine) 2 mg Q4H PRN IV SEVERE PAIN LEVEL 7-10 Last administered on 08/17/18 02:46; Admin Dose 2 MG; Start 08/15/18 at 09:00 Norepinephrine 250 ml @ 1.875 mls/ hr TITRATE IV Last administered on 08/15/18at 16:11; Admin Dose 3.75 MLS/HR; Start 08/15/18 at 16:30 Piperacillin Sod/ Tazobactam Sod 50 ml @ 100 mls/hr Q8 IVPB Last administered on 08/17/18at 06:03; Admin Dose 100 MLS/HR; Start 08/16/18 at 09:30 Famotidine (Pepcid Iv) 20 mg DAILY IV Last administered on 08/17/18at 08:42; Admin Dose 20 MG; Start 08/16/18 at 13:00 Heparin Sodium (Porcine) (Heparin (1000 Units/ml)) 6,100 unit AFTER DIALYSIS CATHETER Last administered on 08/17/18at 00:19; Admin Dose 6,100 UNIT; Start 08/16/18 at 22:30 SHAMIR FRANKS Aug 17, 2018 10:44 am
[2018-08-17] MEDS: DEXTROSE 50% 50 ML SYRINGE IV PRN (11:40)
--- NOTE | 2018-08-17 15:32 | CONS ---
Assessment/Plan Assessment/Plan Hospital Course (Demo Recall) 1 End-stage renal disease, on hemodialysis, mwf with mild CHF 2. 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 Hypotension. On Midodrine at home 4. History of congestive heart failure.1 End-stage renal disease, on hemodialysis,mwf with mild CHF 5. Hypercholesterolemia. 6. Hx of total hip replacement. 7. leucocytosis, off pressor and trending down leukocytosis 8. Hypoglycemia. 9. Macrocytic hypochromic Anemia mixed etiology, recent blood loss and 2/2 kidney disease 10. 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% 12 Clotted left arm AV graft Assessment/Plan (Daily) - HD was on - Dr Coelho surgical consult placed a right groin Permcath - off pressors, hypotensive - iv zosyn > renally dosed -Midodrine on dialysis days for hypotension -Renally Dose all meds Consultation Date/Type/Reason Admit Date/Time Aug 02, 2018 at 10:57 Initial Consult Date 08/02/18 Type of Consult nephrology Requesting Provider: JO HURST MD Date/Time of Note DATE: 08/17/18 TIME: 15:29 24 HR Interval Summary Free Text/Dictation abdominal pain Exam/Review of Systems Exam Vitals Vital Signs Date Temp Pulse Resp B/P (MAP) Pulse Ox O2 O2 Flow FiO2 Time Delivery Rate 08/17/18 96 22 97/68 (78) 100 12:30 08/17/18 98.7 Nasal 2.0 12:00 Cannula Intake and Output 08/16/18 08/16/18 08/17/18 1515:00 23:00 07:00 IntakeIntake Total 546.875 ml 430 ml 470 ml OutputOutput Total 0 ml 0 ml 2200 ml BalanceBalance 546.875 ml 430 ml -1730 ml Exam left arm Av fistula, Right groin Permcath Constitutional: alert, oriented (3) Eyes: nl conjunctiva Neck: supple Respiratory: diminished breath sounds Cardiovascular: regular rate and rhythm Gastrointestinal: soft, surgical scars Results Result Diagram: 08/17/18 0420 08/17/18 0420 Results 24hrs Laboratory Tests Test 08/16/18 17:50 08/16/18 20:51 08/16/18 21:17 08/16/18 22:19 Bedside Glucose 92 65 L 98 96 Test 08/17/18 02:10 08/17/18 04:20 08/17/18 07:52 08/17/18 11:32 Bedside Glucose 71 86 67 L White Blood Count 14.6 H Red Blood Count 3.13 L Hemoglobin 9.6 L Hematocrit 30.0 L Mean Corpuscular Volume 95.8 Mean Corpuscular 30.7 Hemoglobin Mean Corpuscular 32.0 Hemoglobin Concent Red Cell Distribution 16.4 H Width Platelet Count 103 L Mean Platelet Volume 11.7 H Immature Granulocytes % 0.800 H Neutrophils % 85.5 H Lymphocytes % 3.4 L Monocytes % 6.2 Eosinophils % 3.8 Basophils % 0.3 Nucleated Red Blood 0.0 Cells % Immature Granulocytes # 0.120 H Neutrophils # 12.5 H Lymphocytes # 0.5 L Monocytes # 0.9 Eosinophils # 0.6 H Basophils # 0.0 Nucleated Red Blood 0.0 Cells # Sodium Level 138 Potassium Level 4.1 Chloride Level 102 Carbon Dioxide Level 26 Anion Gap 10 Blood Urea Nitrogen 23 #H Creatinine 4.14 #H Est Glomerular Filtrat Rate mL/min Glucose Level 91 # Calcium Level 8.3 L Phosphorus Level 3.6 Magnesium Level 2.0 Test 08/17/18 12:20 Bedside Glucose 111 Medications Medication Current Medications Ondansetron HCl (Zofran Inj) 4 mg Q6H PRN IV NAUSEA/VOMITING; Start 08/02/18 at 13:00 Diagnostic Test (Pha) (Accu-Chek) 1 ea 02 XX Last administered on 08/17/18at 02:21; Admin Dose 1 EA; Start 08/03/18 at 02:00 Insulin Aspart (Novolog Insulin Pen) NOVOLOG *MILD* ALGORITHM WITH MEALS BEDTIME SC Last administered on 08/16/18at 12:15; Admin Dose 1 UNIT; Start 08/02/18 at 18:00 Glucose (Glutose) 15 gm Q15M PRN PO DECREASED GLUCOSE; Start 08/02/18 at 13:30 Glucose (Glutose) 22.5 gm Q15M PRN PO DECREASED GLUCOSE; Start 08/02/18 at 13:30 Dextrose (D50w Syringe) 25 ml Q15M PRN IV DECREASED GLUCOSE Last administered on 08/17/18 11:40; Admin Dose 25 ML; Start 08/02/18 at 13:30 Dextrose (D50w Syringe) 50 ml Q15M PRN IV DECREASED GLUCOSE; Start 08/02/18 at 13:30 Glucagon (Glucagen) 1 mg Q15M PRN IM DECREASED GLUCOSE; Start 08/02/18 at 13:30 Glucose (Glutose) 15 gm Q15M PRN BUCCAL DECREASED GLUCOSE; Start 08/02/18 at 13:30 Cholecalciferol (Vitamin D) 1,000 unit DAILY PO Last administered on 08/17/18 08:42; Admin Dose 1,000 UNIT; Start 08/03/18 at 09:00 Folic Acid (Folic Acid) 1 mg DAILY PO Last administered on 08/17/18 08:42; Admin Dose 1 MG; Start 08/03/18 at 09:00 Sevelamer Carbonate (Renvela) 0.8 gm AC MEALS PO Last administered on 08/17/18 11:29; Admin Dose 0.8 GM; Start 08/02/18 at 17:30 Midodrine (Proamatine) 5 mg ON DIALYSIS DAYS PO Last administered on 08/12/18 09:34; Admin Dose 5 MG; Start 08/02/18 at 18:00 Insulin Glargine (Lantus) 15 units DAILY@0800 SC Last administered on 08/16/18 09:32; Admin Dose 15 UNITS; Start 08/03/18 at 12:00 Albumin Human 100 ml @ 100 mls/hr WITH DIALYSIS PRN IV SBP <90 DURING DIALYSIS Last administered on 08/16/18 21:08; Admin Dose 100 MLS/HR; Start 08/07/18 at 10:00 Gabapentin (Neurontin) 100 mg DAILY PO Last administered on 08/13/18 09:07; Admin Dose 100 MG; Start 08/07/18 at 11:30; Status Hold Phenol (Cepastat Lozenge) 1 lozenge Q1H PRN MT COUGH Last administered on 08/08/18 02:34; Admin Dose 1 LOZENGE; Start 08/07/18 at 23:00 Dextrose/Sodium Chloride 1,000 ml @ 40 mls/hr Q24H IV Last administered on 08/16/18 17:50; Admin Dose 40 MLS/HR; Start 08/14/18 at 10:30 Morphine Sulfate (morphine) 2 mg Q4H PRN IV SEVERE PAIN LEVEL 7-10 Last administered on 08/17/18at 02:46; Admin Dose 2 MG; Start 08/15/18 at 09:00 Norepinephrine 250 ml @ 1.875 mls/ hr TITRATE IV Last administered on 9at 16:11; Admin Dose 3.75 MLS/HR; Start 08/15/18 at 16:30 Piperacillin Sod/ Tazobactam Sod 50 ml @ 100 mls/hr Q8 IVPB Last administered on 08/17/18at 13:46; Admin Dose 100 MLS/HR; Start 08/16/18 at 09:30 Famotidine (Pepcid Iv) 20 mg DAILY IV Last administered on 08/17/18at 08:42; Admin Dose 20 MG; Start 08/16/18 at 13:00 Heparin Sodium (Porcine) (Heparin (1000 Units/ml)) 6,100 unit AFTER DIALYSIS C ATHETER Last administered on 08/17/18at 00:19; Admin Dose 6,100 UNIT; Start 08/16/18 at 22:30 TU CARTER Aug 17, 2018 15:32
--- NOTE | 2018-08-17 18:06 | CONS ---
Assessment/Plan Assessment/Plan Hospital Course (Demo Recall) Acute on chronic systolic CHF: euvolemic Non-ischemic cardiomyopathy PPM: [place] 05/04. For ?complete heart block as 100% v paced. 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 Detailed Summary Additional Comments 14 point review of systems without changes. Exam/Review of Systems Vital Signs Vitals Vital Signs Date Temp Pulse Resp B/P (MAP) Pulse Ox O2 O2 Flow FiO2 Time Delivery Rate 08/17/18 96 2.0 17:47 08/17/18 99 12 95/66 (76) 16:30 08/17/18 98.1 Nasal 16:00 Cannula Intake and Output 08/16/18 08/16/18 08/17/18 1414:59 22:59 06:59 IntakeIntake Total 550.625 ml 430 ml 470 ml OutputOutput Total 0 ml 0 ml 2200 ml BalanceBalance 550.625 ml 430 ml -1730 ml Exam Exam Constitutional: alert, oriented Psych: no complaints Neck: No jvd Respiratory: diminished breath sounds; No clear to auscultation Cardiovascular: regular rate and rhythm; No edema Gastrointestinal: soft; No non-tender (tender to palpation ), No distended Neurological: nl mental status, nl speech Labs Result Diagram: 08/17/18 0420 08/17/18 0420 Results 24hrs Laboratory Tests Test 08/16/18 20:51 08/16/18 21:17 08/16/18 22:19 08/17/18 02:10 Bedside Glucose 65 L 98 96 71 Test 08/17/18 04:20 08/17/18 07:52 08/17/18 11:32 08/17/18 12:20 White Blood Count 14.6 H Red Blood Count 3.13 L Hemoglobin 9.6 L Hematocrit 30.0 L Mean Corpuscular Volume 95.8 Mean Corpuscular 30.7 Hemoglobin Mean Corpuscular 32.0 Hemoglobin Concent Red Cell Distribution 16.4 H Width Platelet Count 103 L Mean Platelet Volume 11.7 H Immature Granulocytes % 0.800 H Neutrophils % 85.5 H Lymphocytes % 3.4 L Monocytes % 6.2 Eosinophils % 3.8 Basophils % 0.3 Nucleated Red Blood 0.0 Cells % Immature Granulocytes # 0.120 H Neutrophils # 12.5 H Lymphocytes # 0.5 L Monocytes # 0.9 Eosinophils # 0.6 H Basophils # 0.0 Nucleated Red Blood 0.0 Cells # Sodium Level 138 Potassium Level 4.1 Chloride Level 102 Carbon Dioxide Level 26 Anion Gap 10 Blood Urea Nitrogen 23 #H Creatinine 4.14 #H Est Glomerular Filtrat Rate mL/min Glucose Level 91 # Calcium Level 8.3 L Phosphorus Level 3.6 Magnesium Level 2.0 Bedside Glucose 86 67 L 111 Test 08/17/18 17:53 Bedside Glucose 111 Medications Medications Current Medications Ondansetron HCl (Zofran Inj) 4 mg Q6H PRN IV NAUSEA/VOMITING; Start 08/02/18 at 13:00 Diagnostic Test (Pha) (Accu-Chek) 1 ea 02 XX Last administered on 08/17/18at 02:21; Admin Dose 1 EA; Start 08/03/18 at 02:00 Insulin Aspart (Novolog Insulin Pen) NOVOLOG *MILD* ALGORITHM WITH MEALS BEDTIME SC Last administered on 08/16/18at 12:15; Admin Dose 1 UNIT; Start 08/02/18 at 18:00 Glucose (Glutose) 15 gm Q15M PRN PO DECREASED GLUCOSE; Start 08/02/18 at 13:30 Glucose (Glutose) 22.5 gm Q15M PRN PO DECREASED GLUCOSE; Start 08/02/18 at 13:30 Dextrose (D50w Syringe) 25 ml Q15M PRN IV DECREASED GLUCOSE Last administered on 08/17/18at 11:40; Admin Dose 25 ML; Start 08/02/18 at 13:30 Dextrose (D50w Syringe) 50 ml Q15M PRN IV DECREASED GLUCOSE; Start 08/02/18 at 13:30 Glucagon (Glucagen) 1 mg Q15M PRN IM DECREASED GLUCOSE; Start 08/02/18 at 13:30 Glucose (Glutose) 15 gm Q15M PRN BUCCAL DECREASED GLUCOSE; Start 08/02/18 at 13 :30 Cholecalciferol (Vitamin D) 1,000 unit DAILY PO Last administered on 08/17/18 08:42; Admin Dose 1,000 UNIT; Start 08/03/18 at 09:00 Folic Acid (Folic Acid) 1 mg DAILY PO Last administered on 08/17/18 08:42; Admin Dose 1 MG; Start 08/03/18 at 09:00 Sevelamer Carbonate (Renvela) 0.8 gm AC MEALS PO Last administered on 08/17/18 11:29; Admin Dose 0.8 GM; Start 08/02/18 at 17:30 Midodrine (Proamatine) 5 mg ON DIALYSIS DAYS PO Last administered on 08/12/18 09:34; Admin Dose 5 MG; Start 08/02/18 at 18:00 Insulin Glargine (Lantus) 15 units DAILY@0800 SC Last administered on 08/16/18 09:32; Admin Dose 15 UNITS; Start 08/03/18 at 12:00 Albumin Human 100 ml @ 100 mls/hr WITH DIALYSIS PRN IV SBP <90 DURING DIALYSIS Last administered on 08/16/18 21:08; Admin Dose 100 MLS/HR; Start 08/07/18 at 10:00 Gabapentin (Neurontin) 100 mg DAILY PO Last administered on 08/13/18 09:07; Admin Dose 100 MG; Start 08/07/18 at 11:30; Status Hold Phenol (Cepastat Lozenge) 1 lozenge Q1H PRN MT COUGH Last administered on 08/08/18 02:34; Admin Dose 1 LOZENGE; Start 08/07/18 at 23:00 Dextrose/Sodium Chloride 1,000 ml @ 40 mls/hr Q24H IV Last administered on 08/16/18 17:50; Admin Dose 40 MLS/HR; Start 08/14/18 at 10:30 Morphine Sulfate (morphine) 2 mg Q4H PRN IV SEVERE PAIN LEVEL 7-10 Last admin istered on 08/17/18 02:46; Admin Dose 2 MG; Start 08/15/18 at 09:00 Norepinephrine 250 ml @ 1.875 mls/ hr TITRATE IV Last administered on 2/28/19at 16:11; Admin Dose 3.75 MLS/HR; Start 08/15/18 at 16:30 Piperacillin Sod/ Tazobactam Sod 50 ml @ 100 mls/hr Q8 IVPB Last administered on 08/17/18 13:46; Admin Dose 100 MLS/HR; Start 08/16/18 at 09:30 Famotidine (Pepcid Iv) 20 mg DAILY IV Last administered on 08/17/18 08:42; Admin Dose 20 MG; Start 08/16/18 at 13:00 Heparin Sodium (Porcine) (Heparin (1000 Units/ml)) 6,100 unit AFTER DIALYSIS CATHETER Last administered on 08/17/18 00:19; Admin Dose 6,100 UNIT; Start 08/16/18 at 22:30 ABEL MUÑOZ MD Aug 17, 2018 18:06
[2018-08-17] MEDS: DEXTROSE 5%-0.45% NACL 1,000 ML IV SCH (19:10)
[2018-08-17] MEDS ORDERED: HEPARIN 5,000 UNIT/1 ML VIAL SC SCH (21:00)
[2018-08-18] VITALS (41 sets, daily range): BP systolic 74–115; BP diastolic 50–83; PULSE 87–107; RESP 2–26
[2018-08-18] MEDS: ACCU-CHEK XX SCH (02:00)
[2018-08-18] MEDS: ACETAMINOPHEN 325 MG TAB PO PRN (05:59)
[2018-08-18] MEDS: PIPER-TAZO 2.25 GM/NS 50 ML IVPB SCH ×3 (05:59→21:15)
[2018-08-18] MEDS: SEVELAMER CARBONATE 0.8 GM PKT PO SCH ×3 (06:02→17:31)
[2018-08-18] MEDS: FOLIC ACID 1 MG TAB PO SCH (08:48)
[2018-08-18] MEDS: CHOLECALCIFEROL 1,000 UNIT TAB PO SCH (08:48)
[2018-08-18] MEDS: FAMOTIDINE 20 MG INJ IV SCH (08:48)
[2018-08-18] MEDS: INSULIN ASPART [NOVOLOG] 3 ML PEN SC SCH ×4 (08:57→20:43)
[2018-08-18] MEDS: INSULIN GLARGINE [LANTus] (100 UNITS/ML) SYG SC SCH (09:11)
--- NOTE | 2018-08-18 09:37 | PN ---
Date/Time of Note Date/Time of Note DATE: 08/18/18 TIME: 09:33 Assessment/Plan VTE Prophylaxis Risk score (from Ns)>0 risk: 9 SCD applied (from Nsg): Yes Pharmacological prophylaxis: heparin Lines/Catheters IV Catheter Type (from Nrs): permacath Urinary Cath still in place: No Assessment/Plan Hospital Course 78YO Man h/o adenoCA and GIST of colon s/p ileosigmoid anastomosis and SB a nastomosis now POD4. Doing OK, VS OK off pressors, WBC persistent ~ 15 but afebrile. Somewhat disoriented but reports tolerating PO, thinks he had passed "a little gas". Nursing reports tenderness with movement, and tolerating PO clears/fulls OK. Will advance to full liquid diet, attempt OOB again. Appreciate medical mgmt. Result Diagram: 08/18/18 0500 08/18/18 0500 Results 24hrs Laboratory Tests Test 08/17/18 11:32 08/17/18 12:20 08/17/18 17:53 08/17/18 18:28 Bedside Glucose 67 L 111 111 Hemoglobin 10.1 L Hematocrit 32.5 L Test 08/17/18 21:08 08/18/18 02:17 08/18/18 05:00 08/18/18 08:51 Bedside Glucose 229 H 182 184 White Blood Count 15.1 H Red Blood Count 3.16 L Hemoglobin 9.6 L Hematocrit 30.3 L Mean Corpuscular Volume 95.9 Mean Corpuscular 30.4 Hemoglobin Mean Corpuscular 31.7 L Hemoglobin Concent Red Cell Distribution 16.1 H Width Platelet Count 104 L Mean Platelet Volume 12.3 H Immature Granulocytes % 0.700 H Neutrophils % 86.3 H Lymphocytes % 3.5 L Monocytes % 5.6 Eosinophils % 3.6 Basophils % 0.3 Nucleated Red Blood 0.0 Cells % Immature Granulocytes # 0.100 H Neutrophils # 13.1 H Lymphocytes # 0.5 L Monocytes # 0.8 Eosinophils # 0.6 H Basophils # 0.0 Nucleated Red Blood 0.0 Cells # Sodium Level 135 Potassium Level 4.3 Chloride Level 100 Carbon Dioxide Level 26 Anion Gap 9 Blood Urea Nitrogen 30 H Creatinine 5.14 H Est Glomerular Filtrat Rate mL/min Glucose Level 175 Calcium Level 8.3 L Magnesium Level 2.0 Total Bilirubin 0.0 L Direct Bilirubin 0.00 Indirect Bilirubin 0.0 Aspartate Amino < 8 L Transf (AST/SGOT) Alanine 16 Aminotransferase (ALT/SG PT) Alkaline Phosphatase 104 Total Protein 5.0 L Albumin 2.2 L Globulin 2.80 Albumin/Globulin Ratio 0.78 Subjective 24 Hr Interval Summary Constitutional: disoriented (able to reorient) Respiratory: no complaints Cardiovascular: no complaints Gastrointestinal: pain (mild) Exam/Review of Systems Exam Vitals Vital Signs Date Temp Pulse Resp B/P (MAP) Pulse Ox O2 O2 Flow FiO2 Time Delivery Rate 08/18/18 97 20 109/75 96 Nasal 2.0 07:00 (86) Cannula 08/18/18 97.5 04:00 Intake and Output 08/17/18 08/17/18 08/18/18 1515:00 23:00 07:00 IntakeIntake Total 570 ml 670 ml 470 ml OutputOutput Total 0 ml 0 ml BalanceBalance 570 ml 670 ml 470 ml Constitutional: frail Respiratory: clear to auscultation Cardiovascular: regular rate and rhythm Gastrointestinal: soft (appropriately TTP, wound C/D/I, ND/NM) Results Results 24hrs Laboratory Tests Test 08/17/18 11:32 08/17/18 12:20 08/17/18 17:53 08/17/18 18:28 Bedside Glucose 67 L 111 111 Hemoglobin 10.1 L Hematocrit 32.5 L Test 08/17/18 21:08 08/18/18 02:17 08/18/18 05:00 08/18/18 08:51 Bedside Glucose 229 H 182 184 White Blood Count 15.1 H Red Blood Count 3.16 L Hemoglobin 9.6 L Hematocrit 30.3 L Mean Corpuscular Volume 95.9 Mean Corpuscular 30.4 Hemoglobin Mean Corpuscular 31.7 L Hemoglobin Concent Red Cell Distribution 16.1 H Width Platelet Count 104 L Mean Platelet Volume 12.3 H Immature Granulocytes % 0.700 H Neutrophils % 86.3 H Lymphocytes % 3.5 L Monocytes % 5.6 Eosinophils % 3.6 Basophils % 0.3 Nucleated Red Blood 0.0 Cells % Immature Granulocytes # 0.100 H Neutrophils # 13.1 H Lymphocytes # 0.5 L Monocytes # 0.8 Eosinophils # 0.6 H Basophils # 0.0 Nucleated Red Blood 0.0 Cells # Sodium Level 135 Potassium Level 4.3 Chloride Level 100 Carbon Dioxide Level 26 Anion Gap 9 Blood Urea Nitrogen 30 H Creatinine 5.14 H Est Glomerular Filtrat Rate mL/min Glucose Level 175 Calcium Level 8.3 L Magnesium Level 2.0 Total Bilirubin 0.0 L Direct Bilirubin 0.00 Indirect Bilirubin 0.0 Aspartate Amino < 8 L Transf (AST/SGOT) Alanine 16 Aminotransferase (ALT/SG PT) Alkaline Phosphatase 104 Total Protein 5.0 L Albumin 2.2 L Globulin 2.80 Albumin/Globulin Ratio 0.78 Medications Medication Current Medications Ondansetron HCl (Zofran Inj) 4 mg Q6H PRN IV NAUSEA/VOMITING; Start 08/02/18 at 13:00 Diagnostic Test (Pha) (Accu-Chek) 1 ea 02 XX Last administered on 08/17/18at 02:21; Admin Dose 1 EA; Start 08/03/18 at 02:00 Insulin Aspart (Novolog Insulin Pen) NOVOLOG *MILD* ALGORITHM WITH MEALS BEDTIME SC Last administered on 08/18/18 08:57; Admin Dose 2 UNIT; Start 08/02/18 at 18:00 Glucose (Glutose) 15 gm Q15M PRN PO DECREASED GLUCOSE; Start 08/02/18 at 13:30 Glucose (Glutose) 22.5 gm Q15M PRN PO DECREASED GLUCOSE; Start 08/02/18 at 13 :30 Dextrose (D50w Syringe) 25 ml Q15M PRN IV DECREASED GLUCOSE Last administered on 08/17/18at 11:40; Admin Dose 25 ML; Start 08/02/18 at 13:30 Dextrose (D50w Syringe) 50 ml Q15M PRN IV DECREASED GLUCOSE; Start 08/02/18 at 13:30 Glucagon (Glucagen) 1 mg Q15M PRN IM DECREASED GLUCOSE; Start 08/02/18 at 13:30 Glucose (Glutose) 15 gm Q15M PRN BUCCAL DECREASED GLUCOSE; Start 08/02/18 at 13:30 Cholecalciferol (Vitamin D) 1,000 unit DAILY PO Last administered on 08/18/18at 08:48; Admin Dose 1,000 UNIT; Start 08/03/18 at 09:00 Folic Acid (Folic Acid) 1 mg DAILY PO Last administered on 08/18/18 08:48; Admin Dose 1 MG; Start 08/03/18 at 09:00 Sevelamer Carbonate (Renvela) 0.8 gm AC MEALS PO Last administered on 08/18/18 06:02; Admin Dose 0.8 GM; Start 08/02/18 at 17:30 Midodrine (Proamatine) 5 mg ON DIALYSIS DAYS PO Last administered on 08/12/18 09:34; Admin Dose 5 MG; Start 08/02/18 at 18:00 Insulin Glargine (Lantus) 15 units DAILY@0800 SC Last administered on 08/18/18 09:11; Admin Dose 15 UNITS; Start 08/03/18 at 12:00 Albumin Human 100 ml @ 100 mls/hr WITH DIALYSIS PRN IV SBP <90 DURING DIALYSIS Last administered on 08/16/18 21:08; Admin Dose 100 MLS/HR; Start 08/07/18 at 10:00 Gabapentin (Neurontin) 100 mg DAILY PO Last administered on 08/13/18 09:07; Admin Dose 100 MG; Start 08/07/18 at 11:30; Status Hold Phenol (Cepastat Lozenge) 1 lozenge Q1H PRN MT COUGH Last administered on 08/08/18 02:34; Admin Dose 1 LOZENGE; Start 08/07/18 at 23:00 Dextrose/Sodium Chloride 1,000 ml @ 40 mls/hr Q24H IV Last administered on 08/17/18 19:10; Admin Dose 40 MLS/HR; Start 08/14/18 at 10:30 Morphine Sulfate (morphine) 2 mg Q4H PRN IV SEVERE PAIN LEVEL 7-10 Last administered on 08/17/18 02:46; Admin Dose 2 MG; Start 08/15/18 at 09:00 Norepinephrine 250 ml @ 1.875 mls/ hr TITRATE IV Last administered on 08/15/18 16:11; Admin Dose 3.75 MLS/HR; Start 08/15/18 at 16:30 Piperacillin Sod/ Tazobactam Sod 50 ml @ 100 mls/hr Q8 IVPB Last administered on 08/18/18 05:59; Admin Dose 100 MLS/HR; Start 08/16/18 at 09:30 Famotidine (Pepcid Iv) 20 mg DAILY IV Last administered on 08/18/18 08:48; Admin Dose 20 MG; Start 08/16/18 at 13:00 Heparin Sodium (Porcine) (Heparin (1000 Units/ml)) 6,100 unit AFTER DIALYSIS CATHETER Last administered on 08/17/18at 00:19; Admin Dose 6,100 UNIT; Start 08/16/18 at 22:30 Acetaminophen (Tylenol Tab) 650 mg Q6H PRN PO MILD PAIN(1-3)OR ELEVATED TEMP Last administered on 08/18/18at 05:59; Admin Dose 650 MG; Start 08/18/18 at 05:30 CONCHITA ARVIZU M.D. Aug 18, 2018 09:37
--- NOTE | 2018-08-18 12:51 | PN ---
Date/Time of Note Date/Time of Note DATE: 08/18/18 TIME: 12:50 Objective Vitals Vital Signs Date Temp Pulse Resp B/P (MAP) Pulse Ox O2 O2 Flow FiO2 Time Delivery Rate 08/18/18 88 22 101/67 100 12:30 (78) 08/18/18 98.2 Nasal 2.0 12:00 Cannula Intake and Output 08/17/18 08/17/18 08/18/18 1515:00 23:00 07:00 IntakeIntake Total 570 ml 670 ml 470 ml OutputOutput Total 0 ml 0 ml BalanceBalance 570 ml 670 ml 470 ml Results Result Diagram: 08/18/18 0500 08/18/18 0500 Medications Medications Current Medications Ondansetron HCl (Zofran Inj) 4 mg Q6H PRN IV NAUSEA/VOMITING; Start 08/02/18 at 13:00 Diagnostic Test (Pha) (Accu-Chek) 1 ea 02 XX Last administered on 08/17/18at 02:21; Admin Dose 1 EA; Start 08/03/18 at 02:00 Insulin Aspart (Novolog Insulin Pen) NOVOLOG *MILD* ALGORITHM WITH MEALS BEDTIME SC Last administered on 08/18/18at 12:04; Admin Dose 2 UNIT; Start 08/02/18 at 18:00 Glucose (Glutose) 15 gm Q15M PRN PO DECREASED GLUCOSE; Start 08/02/18 at 13:30 Glucose (Glutose) 22.5 gm Q15M PRN PO DECREASED GLUCOSE; Start 08/02/18 at 13:30 Dextrose (D50w Syringe) 25 ml Q15M PRN IV DECREASED GLUCOSE Last administered on 08/17/18at 11:40; Admin Dose 25 ML; Start 08/02/18 at 13:30 Dextrose (D50w Syringe) 50 ml Q15M PRN IV DECREASED GLUCOSE; Start 08/02/18 at 13:30 Glucagon (Glucagen) 1 mg Q15M PRN IM DECREASED GLUCOSE; Start 08/02/18 at 13:30 Glucose (Glutose) 15 gm Q15M PRN BUCCAL DECREASED GLUCOSE; Start 08/02/18 at 13:30 Cholecalciferol (Vitamin D) 1,000 unit DAILY PO Last administered on 08/18/18at 08:48; Admin Dose 1,000 UNIT; Start 08/03/18 at 09:00 Folic Acid (Folic Acid) 1 mg DAILY PO Last administered on 08/18/18 08:48; Admin Dose 1 MG; Start 08/03/18 at 09:00 Sevelamer Carbonate (Renvela) 0.8 gm AC MEALS PO Last administered on 08/18/18 11:46; Admin Dose 0.8 GM; Start 08/02/18 at 17:30 Midodrine (Proamatine) 5 mg ON DIALYSIS DAYS PO Last administered on 08/12/18 09:34; Admin Dose 5 MG; Start 08/02/18 at 18:00 Insulin Glargine (Lantus) 15 units DAILY@0800 SC Last administered on 08/18/18 09:11; Admin Dose 15 UNITS; Start 08/03/18 at 12:00 Albumin Human 100 ml @ 100 mls/hr WITH DIALYSIS PRN IV SBP <90 DURING DIALYSIS Last administered on 08/16/18 21:08; Admin Dose 100 MLS/HR; Start 08/07/18 at 10:00 Gabapentin (Neurontin) 100 mg DAILY PO Last administered on 08/13/18 09:07; Admin Dose 100 MG; Start 08/07/18 at 11:30; Status Hold Phenol (Cepastat Lozenge) 1 lozenge Q1H PRN MT COUGH Last administered on 08/08/18 02:34; Admin Dose 1 LOZENGE; Start 08/07/18 at 23:00 Dextrose/Sodium Chloride 1,000 ml @ 40 mls/hr Q24H IV Last administered on 08/17/18 19:10; Admin Dose 40 MLS/HR; Start 08/14/18 at 10:30 Morphine Sulfate (morphine) 2 mg Q4H PRN IV SEVERE PAIN LEVEL 7-10 Last administered on 08/17/18 02:46; Admin Dose 2 MG; Start 08/15/18 at 09:00 Norepinephrine 250 ml @ 1.875 mls/ hr TITRATE IV Last administered on 08/15/18 16:11; Admin Dose 3.75 MLS/HR; Start 08/15/18 at 16:30 Piperacillin Sod/ Tazobactam Sod 50 ml @ 100 mls/hr Q8 IVPB Last administered on 08/18/18 05:59; Admin Dose 100 MLS/HR; Start 08/16/18 at 09:30 Famotidine (Pepcid Iv) 20 mg DAILY IV Last administered on 08/18/18at 08:48; Admin Dose 20 MG; Start 08/16/18 at 13:00 Heparin Sodium (Porcine) (Heparin (1000 Units/ml)) 6,100 unit AFTER DIALYSIS CATHETER Last administered on 08/17/18at 00:19; Admin Dose 6,100 UNIT; Start 08/16/18 at 22:30 Acetaminophen (Tylenol Tab) 650 mg Q6H PRN PO MILD PAIN(1-3)OR ELEVATED TEMP Last administered on 08/18/18at 05:59; Admin Dose 650 MG; Start 08/18/18 at 05:30 VTE Prophylaxis Risk score (from Ns)>0 risk: 14 SCD applied (from Ns): Yes Lines/Catheters IV Catheter Type: Granger in Place: Yes Cont'd granger catheter reason: terminal illness/intractable pain Assessment/Plan Hospital Course Subjective No acute complaints except mild surgical site pain Objective Physical exam General: Patient is laying in bed and answers questions appropriately Mentation: Patient is alert and oriented 4, Head: Normocephalic atraumatic Eyes: EOMI, pupils reactive to light Neck: Supple, nontender, midline Respiratory: Clear to auscultation bilaterally Cardiovascular: regular rate, no obvious murmurs Gastrointestinal: tender to palpation, bowel sounds minimal Neurological: Moves all extremities spontaneously Skin: abdominal midline incision, bandaged, CDI Assessment/Plan Colonic mass at the splenic flexure and ascending colon - Dr. Meneses on board, Status post subtotal colectomy and small bowel resection on 08/14/18 - GI on board and appreciate recommendations. 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 Coelho for recs as he is patient's vascular surgeon, recommended filemon for now until we can fully anticoagulate. GI bleed -2/2 to above mass -resolved -ok to start heparin subq for DVT prophylaxis per general surgery. However will hold for now as there was a mild drop in hemoglobin, when hemoglobin stable, resume prophylactic heparin. Arm swelling --Ultrasound showed right brachial DVT as well as thrombosis of the left ceph alic vein. Patient has 0 symptoms at this time. Discussed with patient and his family, that upper extremity DVTs are usually treated conservatively unless symptomatic. Patient has no discomfort at this time. Patient's midline on his right arm is the likely culprit for the DVT on his right brachial vein. -remove offending midline which caused DVT as patient now has central line for IV access. -dialysis catheter in left arm clotted for now, no Cathflo due to recent surgery per vascular surgery -monitor, warm compresses. -Patient is likely an hypercoagulable state due to his carcinoma, after discussion with patient's long time vascular surgeon, when stable will place patient on low dose eliquis. Diabetes - A1c noted - counseled about importance of diet choices and glucose control - Continue Lantus and ISS Esophagitis - Continue PPI Hypothyroidism - Continue home Synthroid Persistent cough - improvement with Gabapentin? Nonischemic CM - pacer in place - Chronic per outpatient Arbitrator Mild acute on chronic systolic HF - fluid removal during HD Disposition - diet per surgery -cont icu care, downgrade when ok with colorectal surgery -more than 40 minutes of critical care time spent on this encounter DULCE GALINDO Aug 18, 2018 12:51
--- NOTE | 2018-08-18 13:00 | CONS ---
[facility] HCIS Consult Follow-up Patient Name: Scott Buck Unit Number: [id number] Date of : 1940 Patient Status: Admitted Inpatient Attending Doctor: Tadeo Boyle Edit: NNEKA FRITZ MD on 08/18/18 @ 14:13 Talk to this patient today he is refusing dialysis today would rather have tomorrow. Will do a longer session of dialysis tomorrow Assessment/Plan Assessment/Plan Hospital Course (Demo Recall) 1 End-stage renal disease, on hemodialysis, mwf with mild CHF 2. 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 Hypotension. On Midodrine at home 4. History of congestive heart failure.1 End-stage renal disease, on hemodialysis,mwf with mild CHF 5. Hypercholesterolemia. 6. Hx of total hip replacement. 7. leucocytosis, off pressor and trending down leukocytosis 8. Hypoglycemia. 9. Macrocytic hypochromic Anemia mixed etiology, recent blood loss and 2/2 ki dney disease 10. 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% 12 Clotted left arm AV graft Assessment/Plan (Daily) - -dr Fritz will try today -last HD was on - Dr Coelho surgical consult placed a right groin Permcath - off pressors, normotensive - iv zosyn > renally dosed -Midodrine on dialysis days for hypotension -Renally Dose all meds Consultation Date/Type/Reason Admit Date/Time Aug 02, 2018 at 10:57 Initial Consult Date 08/02/18 Type of Consult nephrology Date/Time of Note DATE: 08/18/18 TIME: 12:58 24 HR Interval Summary Constitutional: improved Exam/Review of Systems Exam Vitals Vital Signs Date Temp Pulse Resp B/P (MAP) Pulse Ox O2 O2 Flow FiO2 Time Delivery Rate 08/18/18 88 22 101/67 100 12:30 (78) 08/18/18 98.2 Nasal 2.0 12:00 Cannula Intake and Output 08/17/18 08/17/18 08/18/18 1515:00 23:00 07:00 IntakeIntake Total 570 ml 670 ml 470 ml OutputOutput Total 0 ml 0 ml BalanceBalance 570 ml 670 ml 470 ml Exam tolerating full liquid Head: normocephalic Eyes: nl conjunctiva Neck: supple Respiratory: clear to auscultation Cardiovascular: regular rate and rhythm, other (paced 100 %) Gastrointestinal: soft, nl liver, spleen, non-tender, ascites, bowel sounds, distended, firm, hepatomegaly, mass, rebound or guarding, splenomegaly, surgical scars, tender, other Results Result Diagram: 08/18/18 0500 08/18/18 0500 Results 24hrs Laboratory Tests Test 08/17/18 17:53 08/17/18 18:28 08/17/18 21:08 08/18/18 02:17 Bedside Glucose 111 229 H 182 Hemoglobin 10.1 L Hematocrit 32.5 L Test 08/18/18 05:00 08/18/18 08:51 08/18/18 11:51 White Blood Count 15.1 H Red Blood Count 3.16 L Hemoglobin 9.6 L Hematocrit 30.3 L Mean Corpuscular Volume 95.9 Mean Corpuscular 30.4 Hemoglobin Mean Corpuscular 31.7 L Hemoglobin Concent Red Cell Distribution 16.1 H Width Platelet Count 104 L Mean Platelet Volume 12.3 H Immature Granulocytes % 0.700 H Neutrophils % 86.3 H Lymphocytes % 3.5 L Monocytes % 5.6 Eosinophils % 3.6 Basophils % 0.3 Nucleated Red Blood 0.0 Cells % Immature Granulocytes # 0.100 H Neutrophils # 13.1 H Lymphocytes # 0.5 L Monocytes # 0.8 Eosinophils # 0.6 H Basophils # 0.0 Nucleated Red Blood 0.0 Cells # Sodium Level 135 Potassium Level 4.3 Chloride Level 100 Carbon Dioxide Level 26 Anion Gap 9 Blood Urea Nitrogen 30 H Creatinine 5.14 H Est Glomerular Filtrat Rate mL/min Glucose Level 175 Calcium Level 8.3 L Magnesium Level 2.0 Total Bilirubin 0.0 L Direct Bilirubin 0.00 Indirect Bilirubin 0.0 Aspartate Amino < 8 L Transf (AST/SGOT) Alanine 16 Aminotransferase (ALT/SG PT) Alkaline Phosphatase 104 Total Protein 5.0 L Albumin 2.2 L Globulin 2.80 Albumin/Globulin Ratio 0.78 Bedside Glucose 184 210 Medications Medication Current Medications Ondansetron HCl (Zofran Inj) 4 mg Q6H PRN IV NAUSEA/VOMITING; Start 08/02/18 at 13:00 Diagnostic Test (Pha) (Accu-Chek) 1 ea 02 XX Last administered on 08/17/18 02:21; Admin Dose 1 EA; Start 08/03/18 at 02:00 Insulin Aspart (Novolog Insulin Pen) NOVOLOG *MILD* ALGORITHM WITH MEALS BEDTIME SC Last administered on 08/18/18 12:04; Admin Dose 2 UNIT; Start 08/02/18 at 18:00 Glucose (Glutose) 15 gm Q15M PRN PO DECREASED GLUCOSE; Start 08/02/18 at 13:30 Glucose (Glutose) 22.5 gm Q15M PRN PO DECREASED GLUCOSE; Start 08/02/18 at 13:30 Dextrose (D50w Syringe) 25 ml Q15M PRN IV DECREASED GLUCOSE Last administered on 08/17/18 11:40; Admin Dose 25 ML; Start 08/02/18 at 13:30 Dextrose (D50w Syringe) 50 ml Q15M PRN IV DECREASED GLUCOSE; Start 08/02/18 at 13:30 Glucagon (Glucagen) 1 mg Q15M PRN IM DECREASED GLUCOSE; Start 08/02/18 at 13:30 Glucose (Glutose) 15 gm Q15M PRN BUCCAL DECREASED GLUCOSE; Start 08/02/18 at 13:30 Cholecalciferol (Vitamin D) 1,000 unit DAILY PO Last administered on 08/18/18 08:48; Admin Dose 1,000 UNIT; Start 08/03/18 at 09:00 Folic Acid (Folic Acid) 1 mg DAILY PO Last administered on 08/18/18 08:48; Admin Dose 1 MG; Start 08/03/18 at 09:00 Sevelamer Carbonate (Renvela) 0.8 gm AC MEALS PO Last administered on 08/18/18 11:46; Admin Dose 0.8 GM; Start 08/02/18 at 17:30 Midodrine (Proamatine) 5 mg ON DIALYSIS DAYS PO Last administered on 08/12/18 09:34; Admin Dose 5 MG; Start 08/02/18 at 18:00 Insulin Glargine (Lantus) 15 units DAILY@0800 SC Last administered on 08/18/18 09:11; Admin Dose 15 UNITS; Start 08/03/18 at 12:00 Albumin Human 100 ml @ 100 mls/hr WITH DIALYSIS PRN IV SBP <90 DURING DIALYSIS Last administered on 08/16/18 21:08; Admin Dose 100 MLS/HR; Start 08/07/18 at 10:00 Gabapentin (Neurontin) 100 mg DAILY PO Last administered on 08/13/18 09:07; Admin Dose 100 MG; Start 08/07/18 at 11:30; Status Hold Phenol (Cepastat Lozenge) 1 lozenge Q1H PRN MT COUGH Last administered on 02:34; Admin Dose 1 LOZENGE; Start 08/07/18 at 23:00 Dextrose/Sodium Chloride 1,000 ml @ 40 mls/hr Q24H IV Last administered on 08/17/18 19:10; Admin Dose 40 MLS/HR; Start 08/14/18 at 10:30 Morphine Sulfate (morphine) 2 mg Q4H PRN IV SEVERE PAIN LEVEL 7-10 Last administered on 08/17/18 02:46; Admin Dose 2 MG; Start 08/15/18 at 09:00 Norepinephrine 250 ml @ 1.875 mls/ hr TITRATE IV Last administered on 08/15/18 16:11; Admin Dose 3.75 MLS/HR; Start 08/15/18 at 16:30 Piperacillin Sod/ Tazobactam Sod 50 ml @ 100 mls/hr Q8 IVPB Last administered on 08/18/18 05:59; Admin Dose 100 MLS/HR; Start 08/16/18 at 09:30 Famotidine (Pepcid Iv) 20 mg DAILY IV Last administered on 08/18/18 08:48; Admin Dose 20 MG; Start 08/16/18 at 13:00 Heparin Sodium (Porcine) (Heparin (1000 Units/ml)) 6,100 unit AFTER DIALYSIS CATHETER Last administered on 08/17/18 00:19; Admin Dose 6,100 UNIT; Start 08/16/18 at 22:30 Acetaminophen (Tylenol Tab) 650 mg Q6H PRN PO MILD PAIN(1-3)OR ELEVATED TEMP Last administered on 08/18/18at 05:59; Admin Dose 650 MG; Start 08/18/18 at 05:30 TU CARTER Aug 18, 2018 13:00
--- NOTE | 2018-08-18 14:43 | CONS ---
Assessment/Plan Assessment/Plan Assessment/Plan (Daily) #Colon ca -now POD #4, doing well -per preliminary bx patient appears to have 2 separate masses with different pathology results. 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 Hodges. [facility] staff Consultation Date/Type/Reason Admit Date/Time Aug 02, 2018 at 10:57 am Initial Consult Date 08/09/18 Type of Consult oncology Reason for Consultation Colon Ca Date/Time of Note DATE: 08/18/18 TIME: 14:42 24 HR Interval Summary Free Text/Dictation POD # 5 alert; more alert than yesterday; asking for food and water seems comfortable no new events reported last night Constitutional: requiring O2 Detailed Summary Eyes: no complaints ENT: no complaints Respiratory: no complaints Cardiovascular: no complaints Gastrointestinal: pain Genitourinary: no complaints Musculoskeletal: no complaints Skin: no complaints Neurologic: no complaints Exam/Review of Systems Exam Vitals Vital Signs Date Temp Pulse Resp B/P (MAP) Pulse Ox O2 O2 Flow FiO2 Time Delivery Rate 08/18/18 88 22 101/67 100 12:30 (78) 08/18/18 98.2 Nasal 2.0 12:00 Cannula Intake and Output 08/17/18 08/17/18 08/18/18 1515:00 23:00 07:00 IntakeIntake Total 570 ml 670 ml 470 ml OutputOutput Total 0 ml 0 ml BalanceBalance 570 ml 670 ml 470 ml Constitutional: alert, well developed Psych: nl mood/affect Head: atraumatic Eyes: nl lids, nl sclera ENMT: nl external ears & nose Respiratory: diminished breath sounds (bilaterallly at bases) Cardiovascular: nl pulses, other (s1s2) Gastrointestinal: soft, non-tender Musculoskeletal: muscle weakness Neurological: other (alert/awake) Results Result Diagram: 08/18/18 0500 08/18/18 0500 Results 24hrs Laboratory Tests Test 08/17/18 17:53 08/17/18 18:28 08/17/18 21:08 08/18/18 02:17 Bedside Glucose 111 229 H 182 Hemoglobin 10.1 L Hematocrit 32.5 L Test 08/18/18 05:00 08/18/18 08:51 08/18/18 11:51 White Blood Count 15.1 H Red Blood Count 3.16 L Hemoglobin 9.6 L Hematocrit 30.3 L Mean Corpuscular Volume 95.9 Mean Corpuscular 30.4 Hemoglobin Mean Corpuscular 31.7 L Hemoglobin Concent Red Cell Distribution 16.1 H Width Platelet Count 104 L Mean Platelet Volume 12.3 H Immature Granulocytes % 0.700 H Neutrophils % 86.3 H Lymphocytes % 3.5 L Monocytes % 5.6 Eosinophils % 3.6 Basophils % 0.3 Nucleated Red Blood 0.0 Cells % Immature Granulocytes # 0.100 H Neutrophils # 13.1 H Lymphocytes # 0.5 L Monocytes # 0.8 Eosinophils # 0.6 H Basophils # 0.0 Nucleated Red Blood 0.0 Cells # Sodium Level 135 Potassium Level 4.3 Chloride Level 100 Carbon Dioxide Level 26 Anion Gap 9 Blood Urea Nitrogen 30 H Creatinine 5.14 H Est Glomerular Filtrat Rate mL/min Glucose Level 175 Calcium Level 8.3 L Magnesium Level 2.0 Total Bilirubin 0.0 L Direct Bilirubin 0.00 Indirect Bilirubin 0.0 Aspartate Amino < 8 L Transf (AST/SGOT) Alanine 16 Aminotransferase (ALT/SG PT) Alkaline Phosphatase 104 Total Protein 5.0 L Albumin 2.2 L Globulin 2.80 Albumin/Globulin Ratio 0.78 Bedside Glucose 184 210 Medications Medication Current Medications Ondansetron HCl (Zofran Inj) 4 mg Q6H PRN IV NAUSEA/VOMITING; Start 08/02/18 at 13:00 Diagnostic Test (Pha) (Accu-Chek) 1 ea 02 XX Last administered on 08/17/18at 02:21; Admin Dose 1 EA; Start 08/03/18 at 02:00 Insulin Aspart (Novolog Insulin Pen) NOVOLOG *MILD* ALGORITHM WITH MEALS BEDTIME SC Last administered on 08/18/18at 12:04; Admin Dose 2 UNIT; Start 08/02/18 at 18:00 Glucose (Glutose) 15 gm Q15M PRN PO DECREASED GLUCOSE; Start 08/02/18 at 13:30 Glucose (Glutose) 22.5 gm Q15M PRN PO DECREASED GLUCOSE; Start 08/02/18 at 13:30 Dextrose (D50w Syringe) 25 ml Q15M PRN IV DECREASED GLUCOSE Last administered on 08/17/18 11:40; Admin Dose 25 ML; Start 08/02/18 at 13:30 Dextrose (D50w Syringe) 50 ml Q15M PRN IV DECREASED GLUCOSE; Start 08/02/18 at 13:30 Glucagon (Glucagen) 1 mg Q15M PRN IM DECREASED GLUCOSE; Start 08/02/18 at 13:30 Glucose (Glutose) 15 gm Q15M PRN BUCCAL DECREASED GLUCOSE; Start 08/02/18 at 13:30 Cholecalciferol (Vitamin D) 1,000 unit DAILY PO Last administered on 08/18/18 08:48; Admin Dose 1,000 UNIT; Start 08/03/18 at 09:00 Folic Acid (Folic Acid) 1 mg DAILY PO Last administered on 08/18/18 08:48; Admin Dose 1 MG; Start 08/03/18 at 09:00 Sevelamer Carbonate (Renvela) 0.8 gm AC MEALS PO Last administered on 08/18/18 11:46; Admin Dose 0.8 GM; Start 08/02/18 at 17:30 Midodrine (Proamatine) 5 mg ON DIALYSIS DAYS PO Last administered on 08/12/18 09:34; Admin Dose 5 MG; Start 08/02/18 at 18:00 Insulin Glargine (Lantus) 15 units DAILY@0800 SC Last administered on 08/18/18 09:11; Admin Dose 15 UNITS; Start 08/03/18 at 12:00 Albumin Human 100 ml @ 100 mls/hr WITH DIALYSIS PRN IV SBP <90 DURING DIALYSIS Last administered on 08/16/18 21:08; Admin Dose 100 MLS/HR; Start 08/07/18 at 10:00 Gabapentin (Neurontin) 100 mg DAILY PO Last administered on 08/13/18 09:07; Admin Dose 100 MG; Start 08/07/18 at 11:30; Status Hold Phenol (Cepastat Lozenge) 1 lozenge Q1H PRN MT COUGH Last administered on 08/08/18 02:34; Admin Dose 1 LOZENGE; Start 08/07/18 at 23:00 Morphine Sulfate (morphine) 2 mg Q4H PRN IV SEVERE PAIN LEVEL 7-10 Last administered on 08/17/18 02:46; Admin Dose 2 MG; Start 08/15/18 at 09:00 Norepinephrine 250 ml @ 1.875 mls/ hr TITRATE IV Last administered on 08/15/18 16:11; Admin Dose 3.75 MLS/HR; Start 08/15/18 at 16:30 Piperacillin Sod/ Tazobactam Sod 50 ml @ 100 mls/hr Q8 IVPB Last administered on 08/18/18 05:59; Admin Dose 100 MLS/HR; Start 08/16/18 at 09:30 Famotidine (Pepcid Iv) 20 mg DAILY IV Last administered on 08/18/18 08:48; Admin Dose 20 MG; Start 08/16/18 at 13:00 Heparin Sodium (Porcine) (Heparin (1000 Units/ml)) 6,100 unit AFTER DIALYSIS CATHETER Last administered on 08/17/18 00:19; Admin Dose 6,100 UNIT; Start 08/16 at 22:30 Acetaminophen (Tylenol Tab) 650 mg Q6H PRN PO MILD PAIN(1-3)OR ELEVATED TEMP Last administered on 08/18/18 05:59; Admin Dose 650 MG; Start 08/18/18 at 05:30 SHAMIR FRANKS Aug 18, 2018 2:43 pm
--- NOTE | 2018-08-18 17:58 | CONS ---
Assessment/Plan Assessment/Plan Hospital Course (Demo Recall) Acute on chronic systolic CHF: euvolemic Non-ischemic cardiomyopathy PPM: [place] 05/04. For ?complete heart block as 100% v paced. 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 Borderline blood pressures. Detailed Summary Additional Comments 14 point review of systems without changes. Exam/Review of Systems Vital Signs Vitals Vital Signs Date Temp Pulse Resp B/P (MAP) Pulse Ox O2 O2 Flow FiO2 Time Delivery Rate 08/18/18 92 18 98/69 (79) 98 Nasal 2.0 17:00 Cannula 08/18/18 97.7 15:30 Intake and Output 08/17/18 08/17/18 08/18/18 1515:00 23:00 07:00 IntakeIntake Total 570 ml 670 ml 470 ml OutputOutput Total 0 ml 0 ml BalanceBalance 570 ml 670 ml 470 ml Exam Exam Constitutional: alert, oriented Psych: no complaints Neck: No jvd Respiratory: diminished breath sounds; No clear to auscultation Cardiovascular: regular rate and rhythm; No edema Gastrointestinal: soft; No non-tender (tender to palpation ), No distended Neurological: nl mental status, nl speech Labs Result Diagram: 08/18/18 0500 08/18/18 0500 Results 24hrs Laboratory Tests Test 08/17/18 18:28 08/17/18 21:08 08/18/18 02:17 08/18/18 05:00 Hemoglobin 10.1 L 9.6 L Hematocrit 32.5 L 30.3 L Bedside Glucose 229 H 182 White Blood Count 15.1 H Red Blood Count 3.16 L Mean Corpuscular Volume 95.9 Mean Corpuscular 30.4 Hemoglobin Mean Corpuscular 31.7 L Hemoglobin Concent Red Cell Distribution 16.1 H Width Platelet Count 104 L Mean Platelet Volume 12.3 H Immature Granulocytes % 0.700 H Neutrophils % 86.3 H Lymphocytes % 3.5 L Monocytes % 5.6 Eosinophils % 3.6 Basophils % 0.3 Nucleated Red Blood 0.0 Cells % Immature Granulocytes # 0.100 H Neutrophils # 13.1 H Lymphocytes # 0.5 L Monocytes # 0.8 Eosinophils # 0.6 H Basophils # 0.0 Nucleated Red Blood 0.0 Cells # Sodium Level 135 Potassium Level 4.3 Chloride Level 100 Carbon Dioxide Level 26 Anion Gap 9 Blood Urea Nitrogen 30 H Creatinine 5.14 H Est Glomerular Filtrat Rate mL/min Glucose Level 175 Calcium Level 8.3 L Magnesium Level 2.0 Total Bilirubin 0.0 L Direct Bilirubin 0.00 Indirect Bilirubin 0.0 Aspartate Amino < 8 L Transf (AST/SGOT) Alanine 16 Aminotransferase (ALT/SG PT) Alkaline Phosphatase 104 Total Protein 5.0 L Albumin 2.2 L Globulin 2.80 Albumin/Globulin Ratio 0.78 Test 08/18/18 08:51 08/18/18 11:51 08/18/18 17:27 Bedside Glucose 184 210 145 Medications Medications Current Medications Ondansetron HCl (Zofran Inj) 4 mg Q6H PRN IV NAUSEA/VOMITING; Start 08/02/18 at 13:00 Diagnostic Test (Pha) (Accu-Chek) 1 ea 02 XX Last administered on 08/17/18at 02:21; Admin Dose 1 EA; Start 08/03/18 at 02:00 Insulin Aspart (Novolog Insulin Pen) NOVOLOG *MILD* ALGORITHM WITH MEALS BEDTIME SC Last administered on 08/18/18at 17:29; Admin Dose 1 UNIT; Start 08/02/18 at 18:00 Glucose (Glutose) 15 gm Q15M PRN PO DECREASED GLUCOSE; Start 08/02/18 at 13:30 Glucose (Glutose) 22.5 gm Q15M PRN PO DECREASED GLUCOSE; Start 08/02/18 at 13:30 Dextrose (D50w Syringe) 25 ml Q15M PRN IV DECREASED GLUCOSE Last administered on 08/17/18at 11:40; Admin Dose 25 ML; Start 08/02/18 at 13:30 Dextrose (D50w Syringe) 50 ml Q15M PRN IV DECREASED GLUCOSE; Start 08/02/18 at 13:30 Glucagon (Glucagen) 1 mg Q15M PRN IM DECREASED GLUCOSE; Start 08/02/18 at 13:30 Glucose (Glutose) 15 gm Q15M PRN BUCCAL DECREASED GLUCOSE; Start 08/02/18 at 13:30 Cholecalciferol (Vitamin D) 1,000 unit DAILY PO Last administered on 08/18/18 08:48; Admin Dose 1,000 UNIT; Start 08/03/18 at 09:00 Folic Acid (Folic Acid) 1 mg DAILY PO Last administered on 08/18/18 08:48; Admin Dose 1 MG; Start 08/03/18 at 09:00 Sevelamer Carbonate (Renvela) 0.8 gm AC MEALS PO Last administered on 08/18/18 17:31; Admin Dose 0.8 GM; Start 08/02/18 at 17:30 Midodrine (Proamatine) 5 mg ON DIALYSIS DAYS PO Last administered on 08/12/18 09:34; Admin Dose 5 MG; Start 08/02/18 at 18:00 Insulin Glargine (Lantus) 15 units DAILY@0800 SC Last administered on 08/18/18 09:11; Admin Dose 15 UNITS; Start 08/03/18 at 12:00 Albumin Human 100 ml @ 100 mls/hr WITH DIALYSIS PRN IV SBP <90 DURING DIALYSIS Last administered on 08/16/18 21:08; Admin Dose 100 MLS/HR; Start 08/07/18 at 10:00 Gabapentin (Neurontin) 100 mg DAILY PO Last administered on 08/13/18 09:07; Admin Dose 100 MG; Start 08/07/18 at 11:30; Status Hold Phenol (Cepastat Lozenge) 1 lozenge Q1H PRN MT COUGH Last administered on 08/08/18 02:34; Admin Dose 1 LOZENGE; Start 08/07/18 at 23:00 Morphine Sulfate (morphine) 2 mg Q4H PRN IV SEVERE PAIN LEVEL 7-10 Last administered on 08/17/18 02:46; Admin Dose 2 MG; Start 08/15/18 at 09:00 Norepinephrine 250 ml @ 1.875 mls/ hr TITRATE IV Last administered on 08/15/18 16:11; Admin Dose 3.75 MLS/HR; Start 08/15/18 at 16:30 Piperacillin Sod/ Tazobactam Sod 50 ml @ 100 mls/hr Q8 IVPB Last administered on 08/18/18 15:49; Admin Dose 100 MLS/HR; Start 08/16/18 at 09:30 Famotidine (Pepcid Iv) 20 mg DAILY IV Last administered on 08/18/18 08:48; Admin Dose 20 MG; Start 08/16/18 at 13:00 Heparin Sodium (Porcine) (Heparin (1000 Units/ml)) 6,100 unit AFTER DIALYSIS CATHETER Last administered on 08/17/18at 00:19; Admin Dose 6,100 UNIT; Start 08/16/18 at 22:30 Acetaminophen (Tylenol Tab) 650 mg Q6H PRN PO MILD PAIN(1-3)OR ELEVATED TEMP Last administered on 08/18/18 05:59; Admin Dose 650 MG; Start 08/18/18 at 05:30 ABEL MUÑOZ MD Aug 18, 2018 17:58
[2018-08-19] VITALS (34 sets, daily range): BP systolic 82–111; BP diastolic 54–95; PULSE 79–100; RESP 14–27
[2018-08-19] MEDS: ACCU-CHEK XX SCH (02:00)
[2018-08-19] MEDS: DEXTROSE 50% 50 ML SYRINGE IV PRN (02:02)
[2018-08-19] MEDS: PIPER-TAZO 2.25 GM/NS 50 ML IVPB SCH (06:08)
[2018-08-19] MEDS: SEVELAMER CARBONATE 0.8 GM PKT PO SCH ×3 (06:08→17:25)
[2018-08-19] MEDS: INSULIN ASPART [NOVOLOG] 3 ML PEN SC SCH ×4 (07:35→22:00)
--- NOTE | 2018-08-19 07:38 | PN ---
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 Other findings at the time of surgery include mild to moderate ascites, and fine, nodularity of the liver - cirrhosis?-, and inflammation extending from the transverse colon mesentary to the pancreas, which felt firm). Decision to have the next dialysis as per nephrology. 08/16/18 Pt is on O2 ( 2 l/min) , and on Levophed. He is due to have dialysis this am at 0800. Stable but still critical 08/19/18 Pt is w/o nausea, tolerating some liquids, and says he is passing some gas.Pt does not move well which was also the case pre-op but persists due to post op pain. Assessment/Plan POD #5 WBC still elevated, H/H stable. Pt is confused but not taking much pain medication. Full liquids are ordered but unclear as to how much intake ( last Alb was 2.2) so will order a calorie count, and perhaps try some soft solids. Should have dialysis today. POssible transfer to floor after dialysis if pt stable enough. Result Diagram: 08/19/18 0500 08/19/18 0500 Results 24hrs Laboratory Tests Test 08/18/18 08:51 08/18/18 11:51 08/18/18 17:27 08/18/18 20:43 Bedside Glucose 184 210 145 87 Test 08/19/18 01:56 08/19/18 02:37 08/19/18 05:00 Bedside Glucose 63 L 93 White Blood Count 15.2 H Red Blood Count 3.30 L Hemoglobin 10.1 L Hematocrit 31.9 L Mean Corpuscular Volume 96.7 Mean Corpuscular 30.6 Hemoglobin Mean Corpuscular 31.7 L Hemoglobin Concent Red Cell Distribution 15.9 H Width Platelet Count 93 L Mean Platelet Volume 12.3 H Immature Granulocytes % 0.800 H Neutrophils % 84.4 H Lymphocytes % 3.7 L Monocytes % 6.0 Eosinophils % 4.8 Basophils % 0.3 Nucleated Red Blood 0.0 Cells % Immature Granulocytes # 0.120 H Neutrophils # 12.8 H Lymphocytes # 0.6 L Monocytes # 0.9 Eosinophils # 0.7 H Basophils # 0.1 Nucleated Red Blood 0.0 Cells # Sodium Level 136 Potassium Level 4.3 Chloride Level 102 Carbon Dioxide Level 26 Anion Gap 8 Blood Urea Nitrogen 39 H Creatinine 5.82 H Est Glomerular Filtrat Rate mL/min Glucose Level 88 # Calcium Level 8.5 Phosphorus Level 4.0 Magnesium Level 2.1 Subjective 24 Hr Interval Summary Constitutional: disoriented (Does not remember having surgery but knows me) Gastrointestinal: pain (Incisional) Exam/Review of Systems Exam Vitals Vital Signs Date Temp Pulse Resp B/P (MAP) Pulse Ox O2 O2 Flow FiO2 Time Delivery Rate 08/19/18 2.0 06:00 08/19/18 94 21 104/67 92 Nasal 06:00 (79) Cannula 08/19/18 98.1 04:00 Intake and Output 08/18/18 08/18/18 08/19/18 1515:00 23:00 07:00 IntakeIntake Total 780 ml 300 ml 50 ml OutputOutput Total 0 ml 0 ml 0 ml BalanceBalance 780 ml 300 ml 50 ml Constitutional: oriented (x 2) Gastrointestinal: soft, bowel sounds Neurological: confused (clears after some conversation) Results Results 24hrs Laboratory Tests Test 08/18/18 08:51 08/18/18 11:51 08/18/18 17:27 08/18/18 20:43 Bedside Glucose 184 210 145 87 Test 08/19/18 01:56 08/19/18 02:37 08/19/18 05:00 Bedside Glucose 63 L 93 White Blood Count 15.2 H Red Blood Count 3.30 L Hemoglobin 10.1 L Hematocrit 31.9 L Mean Corpuscular Volume 96.7 Mean Corpuscular 30.6 Hemoglobin Mean Corpuscular 31.7 L Hemoglobin Concent Red Cell Distribution 15.9 H Width Platelet Count 93 L Mean Platelet Volume 12.3 H Immature Granulocytes % 0.800 H Neutrophils % 84.4 H Lymphocytes % 3.7 L Monocytes % 6.0 Eosinophils % 4.8 Basophils % 0.3 Nucleated Red Blood 0.0 Cells % Immature Granulocytes # 0.120 H Neutrophils # 12.8 H Lymphocytes # 0.6 L Monocytes # 0.9 Eosinophils # 0.7 H Basophils # 0.1 Nucleated Red Blood 0.0 Cells # Sodium Level 136 Potassium Level 4.3 Chloride Level 102 Carbon Dioxide Level 26 Anion Gap 8 Blood Urea Nitrogen 39 H Creatinine 5.82 H Est Glomerular Filtrat Rate mL/min Glucose Level 88 # Calcium Level 8.5 Phosphorus Level 4.0 Magnesium Level 2.1 Medications Medication Current Medications Ondansetron HCl (Zofran Inj) 4 mg Q6H PRN IV NAUSEA/VOMITING; Start 08/02/18 at 13:00 Diagnostic Test (Pha) (Accu-Chek) 1 ea 02 XX Last administered on 08/17/18at 02:21; Admin Dose 1 EA; Start 08/03/18 at 02:00 Insulin Aspart (Novolog Insulin Pen) NOVOLOG *MILD* ALGORITHM WITH MEALS BEDTIM E SC Last administered on 08/18/18at 17:29; Admin Dose 1 UNIT; Start 08/02/18 at 18:00 Glucose (Glutose) 15 gm Q15M PRN PO DECREASED GLUCOSE; Start 08/02/18 at 13:30 Glucose (Glutose) 22.5 gm Q15M PRN PO DECREASED GLUCOSE; Start 08/02/18 at 13:30 Dextrose (D50w Syringe) 25 ml Q15M PRN IV DECREASED GLUCOSE Last administered on 08/19/18at 02:02; Admin Dose 25 ML; Start 08/02/18 at 13:30 Dextrose (D50w Syringe) 50 ml Q15M PRN IV DECREASED GLUCOSE; Start 08/02/18 at 13:30 Glucagon (Glucagen) 1 mg Q15M PRN IM DECREASED GLUCOSE; Start 08/02/18 at 13:30 Glucose (Glutose) 15 gm Q15M PRN BUCCAL DECREASED GLUCOSE; Start 08/02/18 at 13:30 Cholecalciferol (Vitamin D) 1,000 unit DAILY PO Last administered on 08/18/18at 08:48; Admin Dose 1,000 UNIT; Start 08/03/18 at 09:00 Folic Acid (Folic Acid) 1 mg DAILY PO Last administered on 08/18/18 08:48; Admin Dose 1 MG; Start 08/03/18 at 09:00 Sevelamer Carbonate (Renvela) 0.8 gm AC MEALS PO Last administered on 08/19/18 06:08; Admin Dose 0.8 GM; Start 08/02/18 at 17:30 Midodrine (Proamatine) 5 mg ON DIALYSIS DAYS PO Last administered on 08/12/18 09:34; Admin Dose 5 MG; Start 08/02/18 at 18:00 Insulin Glargine (Lantus) 15 units DAILY@0800 SC Last administered on 08/18/18 09:11; Admin Dose 15 UNITS; Start 08/03/18 at 12:00 Albumin Human 100 ml @ 100 mls/hr WITH DIALYSIS PRN IV SBP <90 DURING DIALYSIS Last administered on 08/16/18 21:08; Admin Dose 100 MLS/HR; Start 08/07/18 at 10:00 Gabapentin (Neurontin) 100 mg DAILY PO Last administered on 08/13/18 09:07; Admin Dose 100 MG; Start 08/07/18 at 11:30; Status Hold Phenol (Cepastat Lozenge) 1 lozenge Q1H PRN MT COUGH Last administered on 08/08/18 02:34; Admin Dose 1 LOZENGE; Start 08/07/18 at 23:00 Morphine Sulfate (morphine) 2 mg Q4H PRN IV SEVERE PAIN LEVEL 7-10 Last administered on 08/17/18 02:46; Admin Dose 2 MG; Start 08/15/18 at 09:00 Norepinephrine 250 ml @ 1.875 mls/ hr TITRATE IV Last administered on 08/15/18 16:11; Admin Dose 3.75 MLS/HR; Start 08/15/18 at 16:30 Piperacillin Sod/ Tazobactam Sod 50 ml @ 100 mls/hr Q8 IVPB Last administered on 08/19/18 06:08; Admin Dose 100 MLS/HR; Start 08/16/18 at 09:30 Famotidine (Pepcid Iv) 20 mg DAILY IV Last administered on 08/18/18 08:48; Admin Dose 20 MG; Start 08/16/18 at 13:00 Heparin Sodium (Porcine) (Heparin (1000 Units/ml)) 6,100 unit AFTER DIALYSIS CATHETER Last administered on 08/17/18at 00:19; Admin Dose 6,100 UNIT; Start 08/16/18 at 22:30 Acetaminophen (Tylenol Tab) 650 mg Q6H PRN PO MILD PAIN(1-3)OR ELEVATED TEMP Last administered on 08/18/18at 05:59; Admin Dose 650 MG; Start 08/18/18 at 05:30 GONZÁLEZ MERIDA MD Aug 19, 2018 07:38
[2018-08-19] MEDS: INSULIN GLARGINE [LANTus] (100 UNITS/ML) SYG SC SCH (08:36)
--- NOTE | 2018-08-19 09:08 | PN ---
Date/Time of Note Date/Time of Note DATE: 08/19/18 TIME: 09:08 Assessment/Plan VTE Prophylaxis Risk score (from Nsg)>0 risk: 11 SCD applied (from Nsg): Yes Pharmacological prophylaxis: heparin Lines/Catheters IV Catheter Type (from Nrsg): Central Line Central line still needed: Yes Urinary Cath still in place: No Assessment/Plan Assessment/Plan 1. Colonic mass at the splenic flexure and ascending colon s/p subtotal colectomy and small bowel resection on 08/14/18 - Dr. Meneses on board and appreciate consultation. Recommending caloric counting and try soft diet. Patient still with diminished appetite. - GI on board and appreciate recommendations. 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 Awaiting further recommendations based on final path results - Cardiology consultation appreciated 2. End-stage renal disease on HD - Nephrology on board for HD management and appreciate recommendations - clogged fistula catheter (HeRO), consulted Dr. Coelho for recs as he is patient's vascular surgeon, recommended Horacio for now until we can fully anticoagulate. 3. GI bleed 2/2 to above mass - resolved - heparin on hold given drop in hemoglobin 4. Arm swelling - Ultrasound showed right brachial DVT as well as thrombosis of the left cephalic vein. Remains asymptomatic. Discussed with patient and his family, that upper extremity DVTs are usually treated conservatively unless symptomatic. Patient's midline on his right arm is the likely culprit for the DVT on his right brachial vein. - remove offending midline which caused DVT as patient now has central line for IV access. - dialysis catheter in left arm clotted for now, no Cathflo due to recent surgery per vascular surgery - monitor, warm compresses. - Patient is likely an hypercoagulable state due to his carcinoma, after discussion with patient's long time vascular surgeon, when stable will place patient on low dose eliquis. 5. Diabetes - A1c noted - counseled about importance of diet choices and glucose control - Continue Lantus and ISS 6. Esophagitis - Continue PPI 7. Hypothyroidism - Continue home Synthroid 8. Persistent cough - improvement with Gabapentin 9. Nonischemic CM - pacer in place - Chronic per outpatient Family Resource Specialist 10. Mild acute on chronic systolic HF - fluid removal during HD 11. Disposition - Okay for downgrade to med/surg given tolerated HD today with stable vitals >30 minutes of critical care time spent with patient Result Diagram: 08/19/18 0500 08/19/18 0500 Results 24hrs Laboratory Tests Test 08/18/18 11:51 08/18/18 17:27 08/18/18 20:43 08/19/18 01:56 Bedside Glucose 210 145 87 63 L Test 08/19/18 02:37 08/19/18 05:00 08/19/18 08:09 Bedside Glucose 93 74 White Blood Count 15.2 H Red Blood Count 3.30 L Hemoglobin 10.1 L Hematocrit 31.9 L Mean Corpuscular Volume 96.7 Mean Corpuscular 30.6 Hemoglobin Mean Corpuscular 31.7 L Hemoglobin Concent Red Cell Distribution 15.9 H Width Platelet Count 93 L Mean Platelet Volume 12.3 H Immature Granulocytes % 0.800 H Neutrophils % 84.4 H Lymphocytes % 3.7 L Monocytes % 6.0 Eosinophils % 4.8 Basophils % 0.3 Nucleated Red Blood 0.0 Cells % Immature Granulocytes # 0.120 H Neutrophils # 12.8 H Lymphocytes # 0.6 L Monocytes # 0.9 Eosinophils # 0.7 H Basophils # 0.1 Nucleated Red Blood 0.0 Cells # Sodium Level 136 Potassium Level 4.3 Chloride Level 102 Carbon Dioxide Level 26 Anion Gap 8 Blood Urea Nitrogen 39 H Creatinine 5.82 H Est Glomerular Filtrat Rate mL/min Glucose Level 88 # Calcium Level 8.5 Phosphorus Level 4.0 Magnesium Level 2.1 Subjective 24 Hr Interval Summary Free Text/Dictation Patient complaining of generalized weakness with some abdominal discomfort. States getting full fast after eating. No acute overnight events. Exam/Review of Systems Exam Vitals Vital Signs Date Temp Pulse Resp B/P (MAP) Pulse Ox O2 O2 Flow FiO2 Time Delivery Rate 08/19/18 2.0 06:00 08/19/18 94 21 104/67 92 Nasal 06:00 (79) Cannula 08/19/18 98.1 04:00 Intake and Output 08/18/18 08/18/18 08/19/18 1515:00 23:00 07:00 IntakeIntake Total 780 ml 300 ml 50 ml OutputOutput Total 0 ml 0 ml 0 ml BalanceBalance 780 ml 300 ml 50 ml Exam General: Patient is laying in bed and answers questions appropriately Neck: Supple, nontender, midline Respiratory: Clear to auscultation bilaterally. no wheezing or rhonchi Cardiovascular: regular rate and rhythm, no obvious murmurs Gastrointestinal: soft, tender to palpation, hypoactive bowel sounds. no guarding Neurological: Moves all extremities spontaneously Skin: abdominal midline incision, bandaged, CDI Results Results 24hrs Laboratory Tests Test 08/18/18 11:51 08/18/18 17:27 08/18/18 20:43 08/19/18 01:56 Bedside Glucose 210 145 87 63 L Test 08/19/18 02:37 08/19/18 05:00 08/19/18 08:09 Bedside Glucose 93 74 White Blood Count 15.2 H Red Blood Count 3.30 L Hemoglobin 10.1 L Hematocrit 31.9 L Mean Corpuscular Volume 96.7 Mean Corpuscular 30.6 Hemoglobin Mean Corpuscular 31.7 L Hemoglobin Concent Red Cell Distribution 15.9 H Width Platelet Count 93 L Mean Platelet Volume 12.3 H Immature Granulocytes % 0.800 H Neutrophils % 84.4 H Lymphocytes % 3.7 L Monocytes % 6.0 Eosinophils % 4.8 Basophils % 0.3 Nucleated Red Blood 0.0 Cells % Immature Granulocytes # 0.120 H Neutrophils # 12.8 H Lymphocytes # 0.6 L Monocytes # 0.9 Eosinophils # 0.7 H Basophils # 0.1 Nucleated Red Blood 0.0 Cells # Sodium Level 136 Potassium Level 4.3 Chloride Level 102 Carbon Dioxide Level 26 Anion Gap 8 Blood Urea Nitrogen 39 H Creatinine 5.82 H Est Glomerular Filtrat Rate mL/min Glucose Level 88 # Calcium Level 8.5 Phosphorus Level 4.0 Magnesium Level 2.1 Medications Medication Current Medications Ondansetron HCl (Zofran Inj) 4 mg Q6H PRN IV NAUSEA/VOMITING; Start 08/02/18 at 13:00 Diagnostic Test (Pha) (Accu-Chek) 1 ea 02 XX Last administered on 08/17/18at 02:21; Admin Dose 1 EA; Start 08/03/18 at 02:00 Insulin Aspart (Novolog Insulin Pen) NOVOLOG *MILD* ALGORITHM WITH MEALS BEDTIME SC Last administered on 08/18/18at 17:29; Admin Dose 1 UNIT; Start 08/02/18 at 18:00 Glucose (Glutose) 15 gm Q15M PRN PO DECREASED GLUCOSE; Start 08/02/18 at 13:30 Glucose (Glutose) 22.5 gm Q15M PRN PO DECREASED GLUCOSE; Start 08/02/18 at 13:30 Dextrose (D50w Syringe) 25 ml Q15M PRN IV DECREASED GLUCOSE Last administered on 08/19/18 02:02; Admin Dose 25 ML; Start 08/02/18 at 13:30 Dextrose (D50w Syringe) 50 ml Q15M PRN IV DECREASED GLUCOSE; Start 08/02/18 at 13:30 Glucagon (Glucagen) 1 mg Q15M PRN IM DECREASED GLUCOSE; Start 08/02/18 at 13:30 Glucose (Glutose) 15 gm Q15M PRN BUCCAL DECREASED GLUCOSE; Start 08/02/18 at 13:30 Cholecalciferol (Vitamin D) 1,000 unit DAILY PO Last administered on 08/18/18 08:48; Admin Dose 1,000 UNIT; Start 08/03/18 at 09:00 Folic Acid (Folic Acid) 1 mg DAILY PO Last administered on 08/18/18 08:48; Admin Dose 1 MG; Start 08/03/18 at 09:00 Sevelamer Carbonate (Renvela) 0.8 gm AC MEALS PO Last administered on 08/19/18 06:08; Admin Dose 0.8 GM; Start 08/02/18 at 17:30 Midodrine (Proamatine) 5 mg ON DIALYSIS DAYS PO Last administered on 08/12/18 09:34; Admin Dose 5 MG; Start 08/02/18 at 18:00 Insulin Glargine (Lantus) 15 units DAILY@0800 SC Last administered on 08/19/18 08:36; Admin Dose 15 UNITS; Start 08/03/18 at 12:00 Albumin Human 100 ml @ 100 mls/hr WITH DIALYSIS PRN IV SBP <90 DURING DIALYSIS Last administered on 08/16/18 21:08; Admin Dose 100 MLS/HR; Start 08/07/18 at 10:00 Gabapentin (Neurontin) 100 mg DAILY PO Last administered on 08/13/18 09:07; Admin Dose 100 MG; Start 08/07/18 at 11:30; Status Hold Phenol (Cepastat Lozenge) 1 lozenge Q1H PRN MT COUGH Last administered on 08/08/18 02:34; Admin Dose 1 LOZENGE; Start 08/07/18 at 23:00 Morphine Sulfate (morphine) 2 mg Q4H PRN IV SEVERE PAIN LEVEL 7-10 Last administered on 08/17/18 02:46; Admin Dose 2 MG; Start 08/15/18 at 09:00 Norepinephrine 250 ml @ 1.875 mls/ hr TITRATE IV Last administered on 08/15/18 16:11; Admin Dose 3.75 MLS/HR; Start 08/15/18 at 16:30 Piperacillin Sod/ Tazobactam Sod 50 ml @ 100 mls/hr Q8 IVPB Last administered on 08/19/18 06:08; Admin Dose 100 MLS/HR; Start 08/16/18 at 09:30 Famotidine (Pepcid Iv) 20 mg DAILY IV Last administered on 08/18/18 08:48; Admin Dose 20 MG; Start 08/16/18 at 13:00 Heparin Sodium (Porcine) (Heparin (1000 Units/ml)) 6,100 unit AFTER DIALYSIS CATHETER Last administered on 08/17/18 00:19; Admin Dose 6,100 UNIT; Start 08/16/18 at 22:30 Acetaminophen (Tylenol Tab) 650 mg Q6H PRN PO MILD PAIN(1-3)OR ELEVATED TEMP Last administered on 08/18/18 05:59; Admin Dose 650 MG; Start 08/18/18 at 05:30 JO HURST MD Aug 19, 2018 09:08
--- NOTE | 2018-08-19 10:30 | CONS ---
Assessment/Plan Assessment/Plan Hospital Course (Demo Recall) #Colon ca -per preliminary bx patient appears to have 2 separate masses with different pathology results. 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 Consultation Date/Type/Reason Admit Date/Time Aug 02, 2018 at 10:57 Initial Consult Date 08/09/18 Type of Consult oncology Reason for Consultation colon cancer Requesting Provider: DULCE GALINDO Date/Time of Note DATE: 08/19/18 TIME: 10:20 24 HR Interval Summary Free Text/Dictation pt is recovering well from the surgery. continues on HD Exam/Review of Systems Exam Vitals Vital Signs Date Temp Pulse Resp B/P (MAP) Pulse Ox O2 O2 Flow FiO2 Time Delivery Rate 08/19/18 95 17 106/77 100 Nasal 10:00 (87) Cannula 08/19/18 2.0 08:20 08/19/18 97.7 08:00 Intake and Output 08/18/18 08/18/18 08/19/18 1515:00 23:00 07:00 IntakeIntake Total 780 ml 300 ml 50 ml OutputOutput Total 0 ml 0 ml 0 ml BalanceBalance 780 ml 300 ml 50 ml Constitutional: alert, oriented Psych: no complaints Head: normocephalic Eyes: nl conjunctiva ENMT: nl external ears & nose Neck: supple, non-tender Respiratory: clear to auscultation Cardiovascular: regular rate and rhythm Gastrointestinal: soft, surgical scars Musculoskeletal: nl extremities to inspection Extremities: normal pulses Results Result Diagram: 08/19/18 0500 08/19/18 0500 Results 24hrs Laboratory Tests Test 08/18/18 11:51 08/18/18 17:27 08/18/18 20:43 08/19/18 01:56 Bedside Glucose 210 145 87 63 L Test 08/19/18 02:37 08/19/18 05:00 08/19/18 08:09 Bedside Glucose 93 74 White Blood Count 15.2 H Red Blood Count 3.30 L Hemoglobin 10.1 L Hematocrit 31.9 L Mean Corpuscular Volume 96.7 Mean Corpuscular 30.6 Hemoglobin Mean Corpuscular 31.7 L Hemoglobin Concent Red Cell Distribution 15.9 H Width Platelet Count 93 L Mean Platelet Volume 12.3 H Immature Granulocytes % 0.800 H Neutrophils % 84.4 H Lymphocytes % 3.7 L Monocytes % 6.0 Eosinophils % 4.8 Basophils % 0.3 Nucleated Red Blood 0.0 Cells % Immature Granulocytes # 0.120 H Neutrophils # 12.8 H Lymphocytes # 0.6 L Monocytes # 0.9 Eosinophils # 0.7 H Basophils # 0.1 Nucleated Red Blood 0.0 Cells # Sodium Level 136 Potassium Level 4.3 Chloride Level 102 Carbon Dioxide Level 26 Anion Gap 8 Blood Urea Nitrogen 39 H Creatinine 5.82 H Est Glomerular Filtrat Rate mL/min Glucose Level 88 # Calcium Level 8.5 Phosphorus Level 4.0 Magnesium Level 2.1 Medications Medication Current Medications Ondansetron HCl (Zofran Inj) 4 mg Q6H PRN IV NAUSEA/VOMITING; Start 08/02/18 at 13:00 Diagnostic Test (Pha) (Accu-Chek) 1 ea 02 XX Last administered on 08/17/18at 02:21; Admin Dose 1 EA; Start 08/03/18 at 02:00 Insulin Aspart (Novolog Insulin Pen) NOVOLOG *MILD* ALGORITHM WITH MEALS BEDTIME SC Last administered on 08/18/18at 17:29; Admin Dose 1 UNIT; Start 08/02/18 at 18:00 Glucose (Glutose) 15 gm Q15M PRN PO DECREASED GLUCOSE; Start 08/02/18 at 13:30 Glucose (Glutose) 22.5 gm Q15M PRN PO DECREASED GLUCOSE; Start 08/02/18 at 13:30 Dextrose (D50w Syringe) 25 ml Q15M PRN IV DECREASED GLUCOSE Last administered on 08/19/18at 02:02; Admin Dose 25 ML; Start 08/02/18 at 13:30 Dextrose (D50w Syringe) 50 ml Q15M PRN IV DECREASED GLUCOSE; Start 08/02/18 at 13:30 Glucagon (Glucagen) 1 mg Q15M PRN IM DECREASED GLUCOSE; Start 08/02/18 at 13:30 Glucose (Glutose) 15 gm Q15M PRN BUCCAL DECREASED GLUCOSE; Start 08/02/18 at 13:30 Cholecalciferol (Vitamin D) 1,000 unit DAILY PO Last administered on 08/18/18 08:48; Admin Dose 1,000 UNIT; Start 08/03/18 at 09:00 Folic Acid (Folic Acid) 1 mg DAILY PO Last administered on 08/18/18 08:48; Admin Dose 1 MG; Start 08/03/18 at 09:00 Sevelamer Carbonate (Renvela) 0.8 gm AC MEALS PO Last administered on 08/19/18 06:08; Admin Dose 0.8 GM; Start 08/02/18 at 17:30 Midodrine (Proamatine) 5 mg ON DIALYSIS DAYS PO Last administered on 08/12/18 09:34; Admin Dose 5 MG; Start 08/02/18 at 18:00 Insulin Glargine (Lantus) 15 units DAILY@0800 SC Last administered on 08/19/18 08:36; Admin Dose 15 UNITS; Start 08/03/18 at 12:00 Albumin Human 100 ml @ 100 mls/hr WITH DIALYSIS PRN IV SBP <90 DURING DIALYSIS Last administered on 08/16/18 21:08; Admin Dose 100 MLS/HR; Start 08/07/18 at 10:00 Gabapentin (Neurontin) 100 mg DAILY PO Last administered on 08/13/18 09:07; Admin Dose 100 MG; Start 08/07/18 at 11:30; Status Hold Phenol (Cepastat Lozenge) 1 lozenge Q1H PRN MT COUGH Last administered on 08/08/18 02:34; Admin Dose 1 LOZENGE; Start 08/07/18 at 23:00 Morphine Sulfate (morphine) 2 mg Q4H PRN IV SEVERE PAIN LEVEL 7-10 Last administered on 08/17/18 02:46; Admin Dose 2 MG; Start 08/15/18 at 09:00 Norepinephrine 250 ml @ 1.875 mls/ hr TITRATE IV Last administered on 08/15/18 16:11; Admin Dose 3.75 MLS/HR; Start 08/15/18 at 16:30 Piperacillin Sod/ Tazobactam Sod 50 ml @ 100 mls/hr Q8 IVPB Last administered on 08/19/18at 06:08; Admin Dose 100 MLS/HR; Start 08/16/18 at 09:30 Famotidine (Pepcid Iv) 20 mg DAILY IV Last administered on 08/18/18at 08:48; Admin Dose 20 MG; Start 08/16/18 at 13:00 Heparin Sodium (Porcine) (Heparin (1000 Units/ml)) 6,100 unit AFTER DIALYSIS CATHETER Last administered on 08/17/18at 00:19; Admin Dose 6,100 UNIT; Start 08/16/18 at 22:30 Acetaminophen (Tylenol Tab) 650 mg Q6H PRN PO MILD PAIN(1-3)OR ELEVATED TEMP Last administered on 08/18/18at 05:59; Admin Dose 650 MG; Start 08/18/18 at 05:30 Levothyroxine Sodium (Synthroid) 50 mcg DAILY@06 PO ; Start 08/20/18 at 06:00 JAGUAR CARTWRIGHT M.D. Aug 19, 2018 10:30
--- NOTE | 2018-08-19 11:28 | CONS ---
Assessment/Plan Assessment/Plan Assessment/Plan (Daily) 1 End-stage renal disease, on hemodialysis, mwf with mild CHF 2. Bloody diarrhea with evidence of splenic flexure mass on the CT and possible fistula communicating through the small intestine status post colonoscopy with 2: Masses s/p subtotal colectomy POD#5 3. Hypotension. On Midodrine at home 4. History of congestive heart failure.1 End-stage renal disease, on hemodialysis,mwf with mild CHF 5. Hypercholesterolemia. 6. Hx of total hip replacement. 7. leucocytosis, off pressor and trending down leukocytosis 8. Hypoglycemia. 9. Macrocytic hypochromic Anemia mixed etiology, recent blood loss and 2/2 kidney disease 10. 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% 12 Clotted left arm AV graft Assessment/Plan (Daily) - HD today - Midodrine on hd days - iv zosyn > renally dosed - avoid narcotics -Renally Dose all meds Consultation Date/Type/Reason Admit Date/Time Aug 02, 2018 at 10:57 Initial Consult Date 08/03/18 Requesting Provider: DULCE GALINDO Date/Time of Note DATE: 08/19/18 TIME: 11:28 24 HR Interval Summary Free Text/Dictation Some episodes of confusion hd in progress Exam/Review of Systems Exam Vitals Vital Signs Date Temp Pulse Resp B/P (MAP) Pulse Ox O2 O2 Flow FiO2 Time Delivery Rate 08/19/18 95 11:00 08/19/18 17 106/77 100 Nasal 10:00 (87) Cannula 08/19/18 2.0 08:20 08/19/18 97.7 08:00 Intake and Output 08/18/18 08/18/18 08/19/18 1515:00 23:00 07:00 IntakeIntake Total 780 ml 300 ml 100 ml OutputOutput Total 0 ml 0 ml 0 ml BalanceBalance 780 ml 300 ml 100 ml Exam Exam Head: normocephalic Eyes: nl conjunctiva Neck: supple Respiratory: clear to auscultation Cardiovascular: regular rate and rhythm, other (paced 100 %) Gastrointestinal: soft, nl liver, spleen, TTP rt femoral permacath Results Result Diagram: 08/19/18 0500 08/19/18 0500 Results 24hrs Laboratory Tests Test 08/18/18 11:51 08/18/18 17:27 08/18/18 20:43 08/19/18 01:56 Bedside Glucose 210 145 87 63 L Test 08/19/18 02:37 08/19/18 05:00 08/19/18 08:09 Bedside Glucose 93 74 White Blood Count 15.2 H Red Blood Count 3.30 L Hemoglobin 10.1 L Hematocrit 31.9 L Mean Corpuscular Volume 96.7 Mean Corpuscular 30.6 Hemoglobin Mean Corpuscular 31.7 L Hemoglobin Concent Red Cell Distribution 15.9 H Width Platelet Count 93 L Mean Platelet Volume 12.3 H Immature Granulocytes % 0.800 H Neutrophils % 84.4 H Lymphocytes % 3.7 L Monocytes % 6.0 Eosinophils % 4.8 Basophils % 0.3 Nucleated Red Blood 0.0 Cells % Immature Granulocytes # 0.120 H Neutrophils # 12.8 H Lymphocytes # 0.6 L Monocytes # 0.9 Eosinophils # 0.7 H Basophils # 0.1 Nucleated Red Blood 0.0 Cells # Sodium Level 136 Potassium Level 4.3 Chloride Level 102 Carbon Dioxide Level 26 Anion Gap 8 Blood Urea Nitrogen 39 H Creatinine 5.82 H Est Glomerular Filtrat Rate mL/min Glucose Level 88 # Calcium Level 8.5 Phosphorus Level 4.0 Magnesium Level 2.1 Medications Medication Current Medications Ondansetron HCl (Zofran Inj) 4 mg Q6H PRN IV NAUSEA/VOMITING; Start 08/02/18 at 13:00 Diagnostic Test (Pha) (Accu-Chek) 1 ea 02 XX Last administered on 08/17/18at 02:21; Admin Dose 1 EA; Start 08/03/18 at 02:00 Insulin Aspart (Novolog Insulin Pen) NOVOLOG *MILD* ALGORITHM WITH MEALS BEDTIME SC Last administered on 08/18/18at 17:29; Admin Dose 1 UNIT; Start 07/19 11/03 at 18:00 Glucose (Glutose) 15 gm Q15M PRN PO DECREASED GLUCOSE; Start 08/02/18 at 13:30 Glucose (Glutose) 22.5 gm Q15M PRN PO DECREASED GLUCOSE; Start 08/02/18 at 13:30 Dextrose (D50w Syringe) 25 ml Q15M PRN IV DECREASED GLUCOSE Last administered on 08/19/18 02:02; Admin Dose 25 ML; Start 08/02/18 at 13:30 Dextrose (D50w Syringe) 50 ml Q15M PRN IV DECREASED GLUCOSE; Start 08/02/18 at 13:30 Glucagon (Glucagen) 1 mg Q15M PRN IM DECREASED GLUCOSE; Start 08/02/18 at 13:30 Glucose (Glutose) 15 gm Q15M PRN BUCCAL DECREASED GLUCOSE; Start 08/02/18 at 13:30 Cholecalciferol (Vitamin D) 1,000 unit DAILY PO Last administered on 08/18/18 08:48; Admin Dose 1,000 UNIT; Start 08/03/18 at 09:00 Folic Acid (Folic Acid) 1 mg DAILY PO Last administered on 08/18/18 08:48; Admin Dose 1 MG; Start 08/03/18 at 09:00 Sevelamer Carbonate (Renvela) 0.8 gm AC MEALS PO Last administered on 08/19/18 06:08; Admin Dose 0.8 GM; Start 08/02/18 at 17:30 Midodrine (Proamatine) 5 mg ON DIALYSIS DAYS PO Last administered on 08/12/18 09:34; Admin Dose 5 MG; Start 08/02/18 at 18:00 Albumin Human 100 ml @ 100 mls/hr WITH DIALYSIS PRN IV SBP <90 DURING DIALYSIS Last administered on 08/16/18 21:08; Admin Dose 100 MLS/HR; Start 08/07/18 at 10:00 Gabapentin (Neurontin) 100 mg DAILY PO Last administered on 08/13/18 09:07; Admin Dose 100 MG; Start 08/07/18 at 11:30; Status Hold Phenol (Cepastat Lozenge) 1 lozenge Q1H PRN MT COUGH Last administered on 08/08/18 02:34; Admin Dose 1 LOZENGE; Start 08/07/18 at 23:00 Morphine Sulfate (morphine) 2 mg Q4H PRN IV SEVERE PAIN LEVEL 7-10 Last administered on 08/17/18 02:46; Admin Dose 2 MG; Start 08/15/18 at 09:00 Norepinephrine 250 ml @ 1.875 mls/ hr TITRATE IV Last administered on 08/15/18 16:11; Admin Dose 3.75 MLS/HR; Start 08/15/18 at 16:30 Piperacillin Sod/ Tazobactam Sod 50 ml @ 100 mls/hr Q8 IVPB Last administered on 08/19/18at 06:08; Admin Dose 100 MLS/HR; Start 08/16/18 at 09:30 Famotidine (Pepcid Iv) 20 mg DAILY IV Last administered on 08/18/18at 08:48; Admin Dose 20 MG; Start 08/16/18 at 13:00 Heparin Sodium (Porcine) (Heparin (1000 Units/ml)) 6,100 unit AFTER DIALYSIS CATHETER Last administered on 08/17/18at 00:19; Admin Dose 6,100 UNIT; Start 08/16/18 at 22:30 Acetaminophen (Tylenol Tab) 650 mg Q6H PRN PO MILD PAIN(1-3)OR ELEVATED TEMP Last administered on 08/18/18at 05:59; Admin Dose 650 MG; Start 08/18/18 at 05:30 Levothyroxine Sodium (Synthroid) 50 mcg DAILY@06 PO ; Start 08/20/18 at 06:00 Insulin Glargine (Lantus) 12 units DAILY@0800 SC ; Start 08/20/18 at 08:00 NNEKA FRITZ MD Aug 19, 2018 11:28
[2018-08-19] MEDS: HEPARIN 1000 UNITS/ML 10 ML INJ CATHETER SCH (12:16)
[2018-08-19] MEDS: FOLIC ACID 1 MG TAB PO SCH (12:22)
[2018-08-19] MEDS: FAMOTIDINE 20 MG INJ IV SCH (12:22)
[2018-08-19] MEDS: MIDODRINE 5 MG TAB PO SCH (12:22)
[2018-08-19] MEDS: CHOLECALCIFEROL 1,000 UNIT TAB PO SCH (12:24)
[2018-08-19] MEDS: KETOROLAC 15 MG INJ IV PRN (14:00)
--- NOTE | 2018-08-19 14:32 | CONS ---
Assessment/Plan Assessment/Plan Hospital Course (Demo Recall) Acute on chronic systolic CHF: euvolemic Right upper extremity DVT: see prior discussion. No anticoagulation for now Non-ischemic Cardiomyopathy PPM: [place] 05/04. For ?complete heart block as 100% v paced. Normal function on interrogation and reprogramming 08/14 and 08/15 Pulm HTN: PAP 60s by echo Mild-moderate aortic stenosis Colon cancer: s/p subtotal colectomy 08/14 ESRD on HD -midodrine on HD days. If SBP stable, could consider low dose coreg -HD per nephrology for volume management Consultation Date/Type/Reason Admit Date/Time Aug 02, 2018 at 10:57 Initial Consult Date 08/08/18 Type of Consult Cardiology Requesting Provider: DULCE GALINDO Date/Time of Note DATE: 08/19/18 TIME: 14:30 24 HR Interval Summary Free Text/Dictation No events. Doing well. No complaints. Hemodynamically stable. Will be transferred to med surg Exam/Review of Systems Exam Vitals Vital Signs Date Temp Pulse Resp B/P (MAP) Pulse Ox O2 O2 Flow FiO2 Time Delivery Rate 08/19/18 97 27 108/72 100 Nasal 13:00 (84) Cannula 08/19/18 98.6 12:00 08/19/18 2.0 08:20 Intake and Output 08/18/18 08/18/18 08/19/18 1414:59 22:59 06:59 IntakeIntake Total 870 ml 300 ml 100 ml OutputOutput Total 0 ml 0 ml 0 ml BalanceBalance 870 ml 300 ml 100 ml Constitutional: alert, oriented Head: normocephalic, atraumatic Neck: supple; No jvd Respiratory: diminished breath sounds; No clear to auscultation Cardiovascular: regular rate and rhythm; No edema Gastrointestinal: soft, non-tender; No distended Neurological: nl mental status, nl speech Results Result Diagram: 08/19/18 0500 08/19/18 0500 Results 24hrs Laboratory Tests Test 08/18/18 17:27 08/18/18 20:43 08/19/18 01:56 08/19/18 02:37 Bedside Glucose 145 87 63 L 93 Test 08/19/18 05:00 08/19/18 08:09 08/19/18 12:26 08/19/18 12:58 White Blood Count 15.2 H Red Blood Count 3.30 L Hemoglobin 10.1 L Hematocrit 31.9 L Mean Corpuscular Volume 96.7 Mean Corpuscular 30.6 Hemoglobin Mean Corpuscular 31.7 L Hemoglobin Concent Red Cell Distribution 15.9 H Width Platelet Count 93 L Mean Platelet Volume 12.3 H Immature Granulocytes % 0.800 H Neutrophils % 84.4 H Lymphocytes % 3.7 L Monocytes % 6.0 Eosinophils % 4.8 Basophils % 0.3 Nucleated Red Blood 0.0 Cells % Immature Granulocytes # 0.120 H Neutrophils # 12.8 H Lymphocytes # 0.6 L Monocytes # 0.9 Eosinophils # 0.7 H Basophils # 0.1 Nucleated Red Blood 0.0 Cells # Sodium Level 136 Potassium Level 4.3 Chloride Level 102 Carbon Dioxide Level 26 Anion Gap 8 Blood Urea Nitrogen 39 H Creatinine 5.82 H Est Glomerular Filtrat Rate mL/min Glucose Level 88 # Calcium Level 8.5 Phosphorus Level 4.0 Magnesium Level 2.1 Bedside Glucose 74 62 L 75 Test 08/19/18 13:29 08/19/18 13:52 Bedside Glucose 79 74 Medications Medication Current Medications Ondansetron HCl (Zofran Inj) 4 mg Q6H PRN IV NAUSEA/VOMITING Last administered on 08/19/18 12:55; Admin Dose 4 MG; Start 08/02/18 at 13:00 Diagnostic Test (Pha) (Accu-Chek) 1 ea 02 XX Last administered on 08/17/18 02:21; Admin Dose 1 EA; Start 08/03/18 at 02:00 Insulin Aspart (Novolog Insulin Pen) NOVOLOG *MILD* ALGORITHM WITH MEALS BEDTIME SC Last administered on 08/18/18 17:29; Admin Dose 1 UNIT; Start 08/02/18 at 18:00 Glucose (Glutose) 15 gm Q15M PRN PO DECREASED GLUCOSE; Start 08/02/18 at 13:30 Glucose (Glutose) 22.5 gm Q15M PRN PO DECREASED GLUCOSE; Start 08/02/18 at 13:30 Dextrose (D50w Syringe) 25 ml Q15M PRN IV DECREASED GLUCOSE Last administered on 08/19/18 02:02; Admin Dose 25 ML; Start 08/02/18 at 13:30 Dextrose (D50w Syringe) 50 ml Q15M PRN IV DECREASED GLUCOSE; Start 08/02/18 at 13:30 Glucagon (Glucagen) 1 mg Q15M PRN IM DECREASED GLUCOSE; Start 08/02/18 at 13:30 Glucose (Glutose) 15 gm Q15M PRN BUCCAL DECREASED GLUCOSE; Start 08/02/18 at 13 :30 Cholecalciferol (Vitamin D) 1,000 unit DAILY PO Last administered on 08/19/18 12:24; Admin Dose 1,000 UNIT; Start 08/03/18 at 09:00 Folic Acid (Folic Acid) 1 mg DAILY PO Last administered on 08/19/18 12:22; Admin Dose 1 MG; Start 08/03/18 at 09:00 Sevelamer Carbonate (Renvela) 0.8 gm AC MEALS PO Last administered on 08/19/18 12:22; Admin Dose 0.8 GM; Start 08/02/18 at 17:30 Midodrine (Proamatine) 5 mg ON DIALYSIS DAYS PO Last administered on 08/19/18 12:22; Admin Dose 5 MG; Start 08/02/18 at 18:00 Albumin Human 100 ml @ 100 mls/hr WITH DIALYSIS PRN IV SBP <90 DURING DIALYSIS Last administered on 08/16/18 21:08; Admin Dose 100 MLS/HR; Start 08/07/18 at 10:00 Gabapentin (Neurontin) 100 mg DAILY PO Last administered on 08/13/18 09:07; Admin Dose 100 MG; Start 08/07/18 at 11:30; Status Hold Phenol (Cepastat Lozenge) 1 lozenge Q1H PRN MT COUGH Last administered on 08/08/18 02:34; Admin Dose 1 LOZENGE; Start 08/07/18 at 23:00 Morphine Sulfate (morphine) 2 mg Q4H PRN IV SEVERE PAIN LEVEL 7-10 Last administered on 08/17/18 02:46; Admin Dose 2 MG; Start 08/15/18 at 09:00 Famotidine (Pepcid Iv) 20 mg DAILY IV Last administered on 08/19/18 12:22; Admin Dose 20 MG; Start 08/16/18 at 13:00 Heparin Sodium (Porcine) (Heparin (1000 Units/ml)) 6,100 unit AFTER DIALYSIS CATHETER Last administered on 08/19/18 12:16; Admin Dose 6,100 UNIT; Start 08/16/18 at 22:30 Acetaminophen (Tylenol Tab) 650 mg Q6H PRN PO MILD PAIN(1-3)OR ELEVATED TEMP Last administered on 08/18/18at 05:59; Admin Dose 650 MG; Start 08/18/18 at 05:30 Levothyroxine Sodium (Synthroid) 50 mcg DAILY@06 PO ; Start 08/20/18 at 06:00 Insulin Glargine (Lantus) 12 units DAILY@0800 SC ; Start 08/20/18 at 08:00 Ketorolac Tromethamine (Toradol) 15 mg Q6H PRN IV PAIN Last administered on 08/19/18at 14:00; Admin Dose 15 MG; Start 08/19/18 at 13:00; Stop 08/22/18 at 12:59 Docusate Sodium (Colace) 100 mg DAILY PO ; Start 08/20/18 at 09:00 LUCRETIA QUEEN Aug 19, 2018 14:32
[2018-08-19] MEDS: BALSAM PERU/CASTOR OIL 60 GM TUBE TOP SCH (22:09)
--- NOTE | 2018-08-19 22:53 | PN ---
Date/Time of Note Date/Time of Note DATE: 08/19/18 TIME: 22:49 Assessment/Plan Lines/Catheters IV Catheter Type (from [facility]): AILEEN CATHETER Blevins in Place (from [facility]): No Assessment/Plan Chief Complaint/Hosp Course -End-stage renal disease and central occlusion: It seems that the patient's left upper extremity AV graft has thrombosed since his last dialysis session on Sunday last week. From a vascular surgery standpoint, this patient has a very complex advanced access creation with a central stent graft placement (HeRO graft) which would involve a complex declotting intervention. However, given the patient's recent admission & hospitalization with LGIB, colon mass, S/P colon resection would not recommend undergoing declotting at this time, As this is a graft we can plan to attend to this matter in the near future as an outpt and be able to put his fistula back in-line. For now recommend to continue with his new permanent hemodialysis catheter -S/P Femoral Perm catheter -No further vascular intervention needed at this time. Will sign off and follow patient as an outpt -Optimize vascular status (BP meds, diet, nutrition, exercise, sugar control, antiplatelets). -Discussed findings, plan and management with the patient's and primary service and they understand. -Thank you for allowing us to partake in the care of your patient. Please call with any questions. Subjective 24 Hr Interval Summary no new vascular events overnight, tolerating HD Exam/Review of Systems Vital Signs Vitals Vital Signs Date Temp Pulse Resp B/P (MAP) Pulse Ox O2 O2 Flow FiO2 Time Delivery Rate 08/19/18 98.6 89 19 111/74 100 20:30 (86) 08/19/18 Nasal 18:30 Cannula 08/19/18 2.0 16:00 Intake and Output 08/18/18 08/18/18 08/19/18 1515:00 23:00 07:00 IntakeIntake Total 780 ml 300 ml 100 ml OutputOutput Total 0 ml 0 ml 0 ml BalanceBalance 780 ml 300 ml 100 ml Exam Free Text/Dictation GENERAL: Awake, can answer some simple questions. PULMONARY: Coarse breath sounds bilaterally. CARDIOVASCULAR: S1, S2 present. ABDOMEN: Softly distended. Incisional tenderness. Some hypoactive bowel sounds. Surgical incision line with will intact and clean. EXTREMITIES: Right lower extremity palpable femoral pulse, nonpalpable pedal pulse. Motor and sensory intact. Capillary refill 3 seconds. Left lower extremity palpable femoral pulse, nonpalpable pedal pulse. Motor and sensory intact. Capillary refill 3 seconds. Left upper extremity palpable brachial pulse. Motor and sensory intact. Capillary refill 3 seconds. AV graft with no bruit or thrill. Results Result Diagram: 08/19/18 0500 08/19/18 0500 JI WEI MD Aug 19, 2018 22:53
[2018-08-20 01:38] VITALS: BP 108/53; PULSE 84; RESP 19
[2018-08-20] MEDS: ACCU-CHEK XX SCH (02:00)
[2018-08-20] MEDS: LEVOTHYROXINE 50 MCG TAB PO SCH (06:11)
--- NOTE | 2018-08-20 07:37 | PN ---
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 Other findings at the time of surgery include mild to moderate ascites, and fine, nodularity of the liver - cirrhosis?-, and inflammation extending from the transverse colon mesentary to the pancreas, which felt firm). Decision to have the next dialysis as per nephrology. 08/16/18 Pt is on O2 ( 2 l/min) , and on Levophed. He is due to have dialysis this am at 0800. Stable but still critical 08/19/18 Pt is w/o nausea, tolerating some liquids, and says he is passing some gas.Pt does not move well which was also the case pre-op but persists due to post op pain. 08/20/18 POD #6 doing well. Path shows T3N0 adenocarcinoma, and T4N0 GIST w/ 1 tumor implant Assessment/Plan POD #6 now on floor. Will need to increase ambulation. Anticoagulation as per nephrology, but I have no objection to oral or subcutaneous forms. Vascular access for dialysis will need to be addressed soon. Subjective 24 Hr Interval Summary Pt is on the floor, now and tolerating a soft mechanical diet. He had 2 BM's yesterday and generally feels better. The confusion he has been having appears to be improving as well as the severity of his pain. Dialysis took off 1.7 liters yesterday. Am lab is pending Constitutional: BM, flatus Pain Control: well controlled Exam/Review of Systems Vital Signs Vitals Vital Signs Date Temp Pulse Resp B/P (MAP) Pulse Ox O2 O2 Flow FiO2 Time Delivery Rate 08/20/18 98.6 84 19 108/53 98 01:38 (71) 08/19/18 Nasal 2.0 20:05 Cannula Intake and Output 08/19/18 08/19/18 08/20/18 1515:00 23:00 07:00 IntakeIntake Total 490 ml 120 ml OutputOutput Total 2100 ml BalanceBalance -1610 ml 120 ml Exam Constitutional: alert Gastrointestinal: soft, surgical scars (No erythema), tender Results Result Diagram: 08/19/18 0500 08/19/18 0500 GONZÁLEZ MERIDA MD Aug 20, 2018 07:37
[2018-08-20 07:38] VITALS: BP 109/66; PULSE 83; RESP 18
[2018-08-20] MEDS: SEVELAMER CARBONATE 0.8 GM PKT PO SCH ×3 (08:58→17:43)
[2018-08-20] MEDS: CHOLECALCIFEROL 1,000 UNIT TAB PO SCH (08:59)
[2018-08-20] MEDS: BALSAM PERU/CASTOR OIL 60 GM TUBE TOP SCH ×2 (08:59→21:02)
[2018-08-20] MEDS: DOCUSATE SODIUM 100 MG CAP PO SCH (09:00)
[2018-08-20] MEDS ORDERED: morphine 2 MG INJ IV PRN ×2 (09:00→23:45)
[2018-08-20] MEDS: FOLIC ACID 1 MG TAB PO SCH (09:00)
[2018-08-20] MEDS: FAMOTIDINE 20 MG INJ IV SCH (09:01)
[2018-08-20] MEDS: INSULIN ASPART [NOVOLOG] 3 ML PEN SC SCH ×4 (09:03→20:57)
[2018-08-20] MEDS: INSULIN GLARGINE [LANTus] (100 UNITS/ML) SYG SC SCH (09:03)
[2018-08-20] MEDS: HYDROCODONE/APAP (5/325) TAB GTB PRN (09:07)
--- NOTE | 2018-08-20 09:15 | PN ---
Date/Time of Note Date/Time of Note DATE: 08/20/18 TIME: 09:15 Assessment/Plan VTE Prophylaxis Risk score (from Nsg)>0 risk: 20 SCD applied (from Nsg): Yes Pharmacological prophylaxis: heparin Lines/Catheters IV Catheter Type (from Nrsg): Central Line Central line still needed: Yes Urinary Cath still in place: No Assessment/Plan Assessment/Plan 1. Colonic mass at the splenic flexure and ascending colon s/p subtotal colectomy and small bowel resection on 08/14/18 - patient doing well but still with discomfort at surgical site - Dr. Meneses on board and appreciate consultation. Recommending caloric counting and advance diet as tolerated - GI on board and appreciate recommendations. 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 Will need 36 months of adjuvant therapy for GIST tumor but no further intervention for adenocarcinoma - Cardiology consultation appreciated 2. End-stage renal disease on HD - Nephrology on board for HD management and appreciate recommendations - clogged fistula catheter (HeRO), consulted Dr. Coelho for recs as he is patient's vascular surgeon, recommended Horacio for now until we can fully anticoagulate. Follow as outpatient 3. GI bleed 2/2 to above mass - resolved - heparin on hold given drop in hemoglobin 4. Arm swelling - Ultrasound showed right brachial DVT as well as thrombosis of the left cephalic vein. Remains asymptomatic. Discussed with patient and his family, that upper extremity DVTs are usually treated conservatively unless symptomatic. Patient's midline on his right arm is the likely culprit for the DVT on his right brachial vein. - dialysis catheter in left arm clotted for now, no Cathflo due to recent surgery per vascular surgery - monitor, warm compresses. - Patient is likely an hypercoagulable state due to his carcinoma, after discussion with patient's long time vascular surgeon, when stable will place patient on low dose eliquis. 5. Diabetes - A1c noted - counseled about importance of diet choices and glucose control - Continue Lantus and ISS 6. Esophagitis - Continue PPI 7. Hypothyroidism - Continue home Synthroid 8. Persistent cough - improvement with Gabapentin 9. Nonischemic CM - pacer in place - Chronic per outpatient Splicing Supervisor 10. Mild acute on chronic systolic HF - fluid removal during HD 11. Disposition - PT for discharge planning - will need to start low dose Eliquis when able - continue all current care Result Diagram: 08/20/18 0751 08/19/18 0500 Results 24hrs Laboratory Tests Test 08/19/18 12:26 08/19/18 12:58 08/19/18 13:29 08/19/18 13:52 Bedside Glucose 62 L 75 79 74 Test 08/19/18 17:40 08/19/18 21:56 08/20/18 07:51 08/20/18 08:57 Bedside Glucose 102 78 134 White Blood Count 12.7 H Red Blood Count 3.22 L Hemoglobin 9.6 L Hematocrit 32.0 L Mean Corpuscular Volume 99.4 Mean Corpuscular 29.8 Hemoglobin Mean Corpuscular 30.0 L Hemoglobin Concent Red Cell Distribution 15.9 H Width Platelet Count 78 L Mean Platelet Volume 12.3 H Immature Granulocytes % 0.600 H Neutrophils % 80.4 H Lymphocytes % 5.0 L Monocytes % 6.5 Eosinophils % 7.2 H Basophils % 0.3 Nucleated Red Blood 0.0 Cells % Immature Granulocytes # 0.070 H Neutrophils # 10.2 H Lymphocytes # 0.6 L Monocytes # 0.8 Eosinophils # 0.9 H Basophils # 0.0 Nucleated Red Blood 0.0 Cells # Subjective 24 Hr Interval Summary Free Text/Dictation Patient states hes feeling slight discomfort in lower abdominal area that he describes as a soreness. Denies any new issues. Tolerating PO diet and had 2 BMs yesterday. No acute overnight events. Exam/Review of Systems Exam Vitals Vital Signs Date Temp Pulse Resp B/P (MAP) Pulse Ox O2 O2 Flow FiO2 Time Delivery Rate 08/20/18 97.6 83 18 109/66 99 Nasal 07:38 (80) Cannula 08/19/18 2.0 20:05 Intake and Output 08/19/18 08/19/18 08/20/18 1515:00 23:00 07:00 IntakeIntake Total 490 ml 120 ml OutputOutput Total 2100 ml BalanceBalance -1610 ml 120 ml Exam General: Patient is laying in bed and answers questions appropriately Neck: Supple, nontender, midline Respiratory: Clear to auscultation bilaterally. no wheezing or rhonchi Cardiovascular: regular rate and rhythm, no obvious murmurs Gastrointestinal: soft, mildly tender to palpation along surgical incision site, hypoactive bowel sounds. no guarding Neurological: Moves all extremities spontaneously Skin: abdominal midline incision, slight erythema right lower area adjacent to will, clean and dry without any discharge appreciated. will intact Results Results 24hrs Laboratory Tests Test 08/19/18 12:26 08/19/18 12:58 08/19/18 13:29 08/19/18 13:52 Bedside Glucose 62 L 75 79 74 Test 08/19/18 17:40 08/19/18 21:56 08/20/18 07:51 08/20/18 08:57 Bedside Glucose 102 78 134 White Blood Count 12.7 H Red Blood Count 3.22 L Hemoglobin 9.6 L Hematocrit 32.0 L Mean Corpuscular Volume 99.4 Mean Corpuscular 29.8 Hemoglobin Mean Corpuscular 30.0 L Hemoglobin Concent Red Cell Distribution 15.9 H Width Platelet Count 78 L Mean Platelet Volume 12.3 H Immature Granulocytes % 0.600 H Neutrophils % 80.4 H Lymphocytes % 5.0 L Monocytes % 6.5 Eosinophils % 7.2 H Basophils % 0.3 Nucleated Red Blood 0.0 Cells % Immature Granulocytes # 0.070 H Neutrophils # 10.2 H Lymphocytes # 0.6 L Monocytes # 0.8 Eosinophils # 0.9 H Basophils # 0.0 Nucleated Red Blood 0.0 Cells # Medications Medication Current Medications Ondansetron HCl (Zofran Inj) 4 mg Q6H PRN IV NAUSEA/VOMITING Last administered on 08/19/18at 12:55; Admin Dose 4 MG; Start 08/02/18 at 13:00 Diagnostic Test (Pha) (Accu-Chek) 1 ea 02 XX Last administered on 08/17/18at 02:21; Admin Dose 1 EA; Start 08/03/18 at 02:00 Insulin Aspart (Novolog Insulin Pen) NOVOLOG *MILD* ALGORITHM WITH MEALS BEDTIME SC Last administered on 08/18/18 17:29; Admin Dose 1 UNIT; Start 08/02/18 at 18:00 Glucose (Glutose) 15 gm Q15M PRN PO DECREASED GLUCOSE; Start 08/02/18 at 13:30 Glucose (Glutose) 22.5 gm Q15M PRN PO DECREASED GLUCOSE; Start 08/02/18 at 13:30 Dextrose (D50w Syringe) 25 ml Q15M PRN IV DECREASED GLUCOSE Last administered on 08/19/18 02:02; Admin Dose 25 ML; Start 08/02/18 at 13:30 Dextrose (D50w Syringe) 50 ml Q15M PRN IV DECREASED GLUCOSE; Start 08/02/18 at 13:30 Glucagon (Glucagen) 1 mg Q15M PRN IM DECREASED GLUCOSE; Start 08/02/18 at 13:30 Glucose (Glutose) 15 gm Q15M PRN BUCCAL DECREASED GLUCOSE; Start 08/02/18 at 13:30 Cholecalciferol (Vitamin D) 1,000 unit DAILY PO Last administered on 08/20/18 08:59; Admin Dose 1,000 UNIT; Start 08/03/18 at 09:00 Folic Acid (Folic Acid) 1 mg DAILY PO Last administered on 08/20/18 09:00; Admin Dose 1 MG; Start 08/03/18 at 09:00 Sevelamer Carbonate (Renvela) 0.8 gm AC MEALS PO Last administered on 08/20/18 08:58; Admin Dose 0.8 GM; Start 08/02/18 at 17:30 Midodrine (Proamatine) 5 mg ON DIALYSIS DAYS PO Last administered on 08/19/18 12:22; Admin Dose 5 MG; Start 08/02/18 at 18:00 Albumin Human 100 ml @ 100 mls/hr WITH DIALYSIS PRN IV SBP <90 DURING DIALYSIS Last administered on 08/16/18 21:08; Admin Dose 100 MLS/HR; Start 08/07/18 at 10:00 Gabapentin (Neurontin) 100 mg DAILY PO Last administered on 08/13/18 09:07; Admin Dose 100 MG; Start 08/07/18 at 11:30; Status Hold Phenol (Cepastat Lozenge) 1 lozenge Q1H PRN MT COUGH Last administered on 08/08/18 02:34; Admin Dose 1 LOZENGE; Start 08/07/18 at 23:00 Famotidine (Pepcid Iv) 20 mg DAILY IV Last administered on 08/20/18 09:01; Admin Dose 20 MG; Start 08/16/18 at 13:00 Heparin Sodium (Porcine) (Heparin (1000 Units/ml)) 6,100 unit AFTER DIALYSIS CATHETER Last administered on 3/4/19at 12:16; Admin Dose 6,100 UNIT; Start 08/16/18 at 22:30 Acetaminophen (Tylenol Tab) 650 mg Q6H PRN PO MILD PAIN(1-3)OR ELEVATED TEMP Last administered on 08/18/18 05:59; Admin Dose 650 MG; Start 08/18/18 at 05:30 Levothyroxine Sodium (Synthroid) 50 mcg DAILY@06 PO Last administered on 08/20/18 06:11; Admin Dose 50 MCG; Start 08/20/18 at 06:00 Insulin Glargine (Lantus) 12 units DAILY@0800 SC Last administered on 08/20/18 09:03; Admin Dose 12 UNITS; Start 08/20/18 at 08:00 Ketorolac Tromethamine (Toradol) 15 mg Q6H PRN IV PAIN Last administered on 08/19/18at 14:00; Admin Dose 15 MG; Start 08/19/18 at 13:00; Stop 08/22/18 at 12:59 Docusate Sodium (Colace) 100 mg DAILY PO Last administered on 08/20/18 09:00; Admin Dose 100 MG; Start 08/20/18 at 09:00 Morphine Sulfate (morphine) 1 mg Q4H PRN IV SEVERE PAIN LEVEL 7-10; Start 08/20/18 at 09:00 Acetaminophen/ Hydrocodone Bitart ([place] (5/325)) 1 tab Q4H PRN GTB MODERATE PAIN LEVEL 4-6 Last administered on 08/20/18 09:07; Admin Dose 1 TAB; Start 08/20/18 at 07:30 JO HURST MD Aug 20, 2018 09:15
--- NOTE | 2018-08-20 12:00 | CONS ---
Assessment/Plan Assessment/Plan Assessment/Plan (Daily) 1 End-stage renal disease, on hemodialysis, mwf with mild CHF MWF 2. 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 Hypotension. On Midodrine at home 4. History of congestive heart failure.1 End-stage renal disease, on hemodialysis,mwf with mild CHF 5. Hypercholesterolemia. 6. Hx of total hip replacement. 7. leucocytosis, off pressor and trending down leukocytosis 8. Hypoglycemia. 9. Macrocytic hypochromic Anemia mixed etiology, recent blood loss and 2/2 kidney disease 10. 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 7 l good spirits Exam/Review of Systems Exam Vitals Vital Signs Date Temp Pulse Resp B/P (MAP) Pulse Ox O2 O2 Flow FiO2 Time Delivery Rate 08/20/18 Nasal 2.0 11:00 Cannula 08/20/18 97.6 83 18 109/66 99 07:38 (80) Intake and Output 08/19/18 08/19/18 08/20/18 1515:00 23:00 07:00 IntakeIntake Total 490 ml 120 ml OutputOutput Total 2100 ml BalanceBalance -1610 ml 120 ml Exam Head: normocephalic Eyes: nl conjunctiva Neck: supple Respiratory: clear to auscultation Cardiovascular: regular rate and rhythm, other (paced 100 %) Gastrointestinal: soft, nl liver, spleen, TTP rt femoral permacath Results Result Diagram: 08/20/18 0751 08/19/18 0500 Results 24hrs Laboratory Tests Test 08/19/18 12:26 08/19/18 12:58 08/19/18 13:29 08/19/18 13:52 Bedside Glucose 62 L 75 79 74 Test 08/19/18 17:40 08/19/18 21:56 08/20/18 07:51 08/20/18 08:57 Bedside Glucose 102 78 134 White Blood Count 12.7 H Red Blood Count 3.22 L Hemoglobin 9.6 L Hematocrit 32.0 L Mean Corpuscular Volume 99.4 Mean Corpuscular 29.8 Hemoglobin Mean Corpuscular 30.0 L Hemoglobin Concent Red Cell Distribution 15.9 H Width Platelet Count 78 L Mean Platelet Volume 12.3 H Immature Granulocytes % 0.600 H Neutrophils % 80.4 H Lymphocytes % 5.0 L Monocytes % 6.5 Eosinophils % 7.2 H Basophils % 0.3 Nucleated Red Blood 0.0 Cells % Immature Granulocytes # 0.070 H Neutrophils # 10.2 H Lymphocytes # 0.6 L Monocytes # 0.8 Eosinophils # 0.9 H Basophils # 0.0 Nucleated Red Blood 0.0 Cells # Medications Medication Current Medications Ondansetron HCl (Zofran Inj) 4 mg Q6H PRN IV NAUSEA/VOMITING Last administered on 08/19/18 12:55; Admin Dose 4 MG; Start 08/02/18 at 13:00 Diagnostic Test (Pha) (Accu-Chek) 1 ea 02 XX Last administered on 08/17/18 02:2 1; Admin Dose 1 EA; Start 08/03/18 at 02:00 Insulin Aspart (Novolog Insulin Pen) NOVOLOG *MILD* ALGORITHM WITH MEALS BEDTIME SC Last administered on 08/18/18 17:29; Admin Dose 1 UNIT; Start 08/02/18 at 18:00 Glucose (Glutose) 15 gm Q15M PRN PO DECREASED GLUCOSE; Start 08/02/18 at 13:30 Glucose (Glutose) 22.5 gm Q15M PRN PO DECREASED GLUCOSE; Start 08/02/18 at 13:30 Dextrose (D50w Syringe) 25 ml Q15M PRN IV DECREASED GLUCOSE Last administered on 08/19/18 02:02; Admin Dose 25 ML; Start 08/02/18 at 13:30 Dextrose (D50w Syringe) 50 ml Q15M PRN IV DECREASED GLUCOSE; Start 08/02/18 at 13:30 Glucagon (Glucagen) 1 mg Q15M PRN IM DECREASED GLUCOSE; Start 08/02/18 at 13:30 Glucose (Glutose) 15 gm Q15M PRN BUCCAL DECREASED GLUCOSE; Start 08/02/18 at 13:30 Cholecalciferol (Vitamin D) 1,000 unit DAILY PO Last administered on 08/20/18 08:59; Admin Dose 1,000 UNIT; Start 08/03/18 at 09:00 Folic Acid (Folic Acid) 1 mg DAILY PO Last administered on 08/20/18 09:00; Admin Dose 1 MG; Start 08/03/18 at 09:00 Sevelamer Carbonate (Renvela) 0.8 gm AC MEALS PO Last administered on 08/20/18 08:58; Admin Dose 0.8 GM; Start 08/02/18 at 17:30 Midodrine (Proamatine) 5 mg ON DIALYSIS DAYS PO Last administered on 08/19/18 12:22; Admin Dose 5 MG; Start 08/02/18 at 18:00 Albumin Human 100 ml @ 100 mls/hr WITH DIALYSIS PRN IV SBP <90 DURING DIALYSIS Last administered on 08/16/18 21:08; Admin Dose 100 MLS/HR; Start 08/07/18 at 10:00 Gabapentin (Neurontin) 100 mg DAILY PO Last administered on 08/13/18 09:07; Admin Dose 100 MG; Start 08/07/18 at 11:30; Status Hold Phenol (Cepastat Lozenge) 1 lozenge Q1H PRN MT COUGH Last administered on 08/08/18 02:34; Admin Dose 1 LOZENGE; Start 08/07/18 at 23:00 Famotidine (Pepcid Iv) 20 mg DAILY IV Last administered on 08/20/18 09:01; Admin Dose 20 MG; Start 08/16/18 at 13:00 Heparin Sodium (Porcine) (Heparin (1000 Units/ml)) 6,100 unit AFTER DIALYSIS CATHETER Last administered on 08/19/18 12:16; Admin Dose 6,100 UNIT; Start 08/16/18 at 22:30 Acetaminophen (Tylenol Tab) 650 mg Q6H PRN PO MILD PAIN(1-3)OR ELEVATED TEMP Last administered on 08/18/18 05:59; Admin Dose 650 MG; Start 08/18/18 at 05:30 Levothyroxine Sodium (Synthroid) 50 mcg DAILY@06 PO Last administered on 08/20/18 06:11; Admin Dose 50 MCG; Start 08/20/18 at 06:00 Insulin Glargine (Lantus) 12 units DAILY@0800 SC Last administered on 08/20/18 09:03; Admin Dose 12 UNITS; Start 08/20/18 at 08:00 Ketorolac Tromethamine (Toradol) 15 mg Q6H PRN IV PAIN Last administered on 08/19/18 14:00; Admin Dose 15 MG; Start 08/19/18 at 13:00; Stop 08/22/18 at 12:59 Docusate Sodium (Colace) 100 mg DAILY PO Last administered on 08/20/18 09:00; Admin Dose 100 MG; Start 08/20/18 at 09:00 Morphine Sulfate (morphine) 1 mg Q4H PRN IV SEVERE PAIN LEVEL 7-10; Start 08/20/18 at 09:00 Acetaminophen/ Hydrocodone Bitart ([place] (5/325)) 1 tab Q4H PRN GTB MODERATE PAIN LEVEL 4-6 Last administered on 08/20/18 09:07; Admin Dose 1 TAB; Start 08/20/18 at 07:30 NNEKA FRITZ MD Aug 20, 2018 12:00
--- NOTE | 2018-08-20 13:35 | CONS ---
Assessment/Plan Assessment/Plan Hospital Course (Demo Recall) #Colon ca -final pathology report reveals 2 separate masses with different pathology results. -the ascending colon mass is consistent with a Moderately-differentiated adenocarcinoma, invading through the muscularis propria, with all 0/18 negative for disease, 3.6 x 2.8 x 1.1 cm. -the splenic flexture mass is 10.5 x 9.0 x 7.0 cm.and consistent with a high grade GIST tumor -CT does not reveal evidence of distant mets -in terms of the adenocarcinoma, pt does not need adjuvant chemotherapy given this was a stage IIA tumor. -He would however benefit from adjuvant Gleevec for 18mo for his high grade GIST rumor with 0/16 LN with disease #ESRD -continue HD per renal #Diabetes - A1c noted - Continue Lantus and ISS #Hypothyroidism - Continue Synthroid #Nonischemic CM - pacer in place - nonchronic Thank you for the opportunity to participate in this patients care A total of 40 minutes of face to face time was spent speaking with the patient, of which greater than 50% was spent in counseling and coordination of care and the detailed question and answer session. Consultation Date/Type/Reason Admit Date/Time Aug 02, 2018 at 10:57 Initial Consult Date 08/09/18 Type of Consult oncology Reason for Consultation colon cancer Requesting Provider: DULCE GALINDO Date/Time of Note DATE: 08/20/18 TIME: 13:26 24 HR Interval Summary Free Text/Dictation pt is recovering well from surgery.continues on HD Exam/Review of Systems Exam Vitals Vital Signs Date Temp Pulse Resp B/P (MAP) Pulse Ox O2 O2 Flow FiO2 Time Delivery Rate 08/20/18 Nasal 2.0 11:00 Cannula 08/20/18 97.6 83 18 109/66 99 07:38 (80) Intake and Output 08/19/18 08/19/18 08/20/18 1515:00 23:00 07:00 IntakeIntake Total 490 ml 120 ml OutputOutput Total 2100 ml BalanceBalance -1610 ml 120 ml Constitutional: alert Psych: no complaints, confusion, depression Eyes: nl conjunctiva ENMT: nl external ears & nose Neck: supple Respiratory: clear to auscultation Cardiovascular: regular rate and rhythm Gastrointestinal: soft Musculoskeletal: nl extremities to inspection Results Result Diagram: 08/20/18 0751 08/19/18 0500 Results 24hrs Laboratory Tests Test 08/19/18 13:29 08/19/18 13:52 08/19/18 17:40 08/19/18 21:56 Bedside Glucose 79 74 102 78 Test 08/20/18 07:51 08/20/18 08:57 08/20/18 13:17 White Blood Count 12.7 H Red Blood Count 3.22 L Hemoglobin 9.6 L Hematocrit 32.0 L Mean Corpuscular Volume 99.4 Mean Corpuscular 29.8 Hemoglobin Mean Corpuscular 30.0 L Hemoglobin Concent Red Cell Distribution 15.9 H Width Platelet Count 78 L Mean Platelet Volume 12.3 H Immature Granulocytes % 0.600 H Neutrophils % 80.4 H Lymphocytes % 5.0 L Monocytes % 6.5 Eosinophils % 7.2 H Basophils % 0.3 Nucleated Red Blood 0.0 Cells % Immature Granulocytes # 0.070 H Neutrophils # 10.2 H Lymphocytes # 0.6 L Monocytes # 0.8 Eosinophils # 0.9 H Basophils # 0.0 Nucleated Red Blood 0.0 Cells # Bedside Glucose 134 135 Medications Medication Current Medications Ondansetron HCl (Zofran Inj) 4 mg Q6H PRN IV NAUSEA/VOMITING Last administered on 08/19/18 12:55; Admin Dose 4 MG; Start 08/02/18 at 13:00 Diagnostic Test (Pha) (Accu-Chek) 1 ea 02 XX Last administered on 08/17/18 02:21; Admin Dose 1 EA; Start 08/03/18 at 02:00 Insulin Aspart (Novolog Insulin Pen) NOVOLOG *MILD* ALGORITHM WITH MEALS BEDTIME SC Last administered on 08/18/18 17:29; Admin Dose 1 UNIT; Start 08/02/18 at 18:00 Glucose (Glutose) 15 gm Q15M PRN PO DECREASED GLUCOSE; Start 08/02/18 at 13:30 Glucose (Glutose) 22.5 gm Q15M PRN PO DECREASED GLUCOSE; Start 08/02/18 at 13:30 Dextrose (D50w Syringe) 25 ml Q15M PRN IV DECREASED GLUCOSE Last administered on 08/19/18 02:02; Admin Dose 25 ML; Start 08/02/18 at 13:30 Dextrose (D50w Syringe) 50 ml Q15M PRN IV DECREASED GLUCOSE; Start 08/02/18 at 13:30 Glucagon (Glucagen) 1 mg Q15M PRN IM DECREASED GLUCOSE; Start 08/02/18 at 13:30 Glucose (Glutose) 15 gm Q15M PRN BUCCAL DECREASED GLUCOSE; Start 08/02/18 at 13 :30 Cholecalciferol (Vitamin D) 1,000 unit DAILY PO Last administered on 08/20/18 08:59; Admin Dose 1,000 UNIT; Start 08/03/18 at 09:00 Folic Acid (Folic Acid) 1 mg DAILY PO Last administered on 08/20/18 09:00; Admin Dose 1 MG; Start 08/03/18 at 09:00 Sevelamer Carbonate (Renvela) 0.8 gm AC MEALS PO Last administered on 08/20/18 13:19; Admin Dose 0.8 GM; Start 08/02/18 at 17:30 Midodrine (Proamatine) 5 mg ON DIALYSIS DAYS PO Last administered on 08/19/18 12:22; Admin Dose 5 MG; Start 08/02/18 at 18:00 Albumin Human 100 ml @ 100 mls/hr WITH DIALYSIS PRN IV SBP <90 DURING DIALYSIS Last administered on 08/16/18 21:08; Admin Dose 100 MLS/HR; Start 08/07/18 at 10:00 Gabapentin (Neurontin) 100 mg DAILY PO Last administered on 08/13/18 09:07; Admin Dose 100 MG; Start 08/07/18 at 11:30; Status Hold Phenol (Cepastat Lozenge) 1 lozenge Q1H PRN MT COUGH Last administered on 08/08/18 02:34; Admin Dose 1 LOZENGE; Start 08/07/18 at 23:00 Famotidine (Pepcid Iv) 20 mg DAILY IV Last administered on 08/20/18 09:01; Admin Dose 20 MG; Start 08/16/18 at 13:00 Heparin Sodium (Porcine) (Heparin (1000 Units/ml)) 6,100 unit AFTER DIALYSIS CATHETER Last administered on 08/19/18 12:16; Admin Dose 6,100 UNIT; Start 08/16/18 at 22:30 Acetaminophen (Tylenol Tab) 650 mg Q6H PRN PO MILD PAIN(1-3)OR ELEVATED TEMP Last administered on 3/3/19at 05:59; Admin Dose 650 MG; Start 08/18/18 at 05:30 Levothyroxine Sodium (Synthroid) 50 mcg DAILY@06 PO Last administered on 08/20/18at 06:11; Admin Dose 50 MCG; Start 08/20/18 at 06:00 Insulin Glargine (Lantus) 12 units DAILY@0800 SC Last administered on 08/20/18 09:03; Admin Dose 12 UNITS; Start 08/20/18 at 08:00 Ketorolac Tromethamine (Toradol) 15 mg Q6H PRN IV PAIN Last administered on 08/19/18 14:00; Admin Dose 15 MG; Start 08/19/18 at 13:00; Stop 08/22/18 at 12:59 Docusate Sodium (Colace) 100 mg DAILY PO Last administered on 08/20/18 09:00; Admin Dose 100 MG; Start 08/20/18 at 09:00 Morphine Sulfate (morphine) 1 mg Q4H PRN IV SEVERE PAIN LEVEL 7-10; Start 08/20/18 at 09:00 Acetaminophen/ Hydrocodone Bitart ([place] (5/325)) 1 tab Q4H PRN GTB MODERATE PAIN LEVEL 4-6 Last administered on 08/20/18 09:07; Admin Dose 1 TAB; Start 08/20/18 at 07:30 JAGUAR CARTWRIGHT M.D. Aug 20, 2018 13:35
[2018-08-20 14:00] VITALS: BP 106/60; PULSE 80; RESP 18
--- NOTE | 2018-08-20 16:56 | CONS ---
Assessment/Plan Assessment/Plan Hospital Course (Demo Recall) Acute on chronic systolic CHF: euvolemic Right upper extremity DVT: see prior discussion. Anticoagulation per primary team Non-ischemic Cardiomyopathy PPM: [place] 05/04. For ?complete heart block as 100% v paced. Normal function on interrogation and reprogramming 08/14 and 08/15 Pulm HTN: PAP 60s by echo Mild-moderate aortic stenosis Colon cancer: s/p subtotal colectomy 08/14 ESRD on HD -midodrine on HD days. If SBP stable, could consider low dose coreg -HD per nephrology for volume management Consultation Date/Type/Reason Admit Date/Time Aug 02, 2018 at 10:57 Initial Consult Date 08/08/18 Type of Consult Cardiology Requesting Provider: DULCE GALINDO Date/Time of Note DATE: 08/20/18 TIME: 16:54 24 HR Interval Summary Free Text/Dictation Transferred to med surg. Confused again Exam/Review of Systems Exam Vitals Vital Signs Date Temp Pulse Resp B/P (MAP) Pulse Ox O2 O2 Flow FiO2 Time Delivery Rate 08/20/18 Nasal 2.0 11:00 Cannula 08/20/18 97.6 83 18 109/66 99 07:38 (80) Intake and Output 08/19/18 08/19/18 08/20/18 1515:00 23:00 07:00 IntakeIntake Total 490 ml 120 ml OutputOutput Total 2100 ml BalanceBalance -1610 ml 120 ml Constitutional: alert; No oriented Head: normocephalic, atraumatic Neck: supple; No jvd Respiratory: crackles/rales; No clear to auscultation Cardiovascular: regular rate and rhythm, edema (bilateral arms ) Musculoskeletal: No nl extremities to inspection Neurological: nl mental status; No nl speech Results Result Diagram: 08/20/18 0751 08/19/18 0500 Results 24hrs Laboratory Tests Test 08/19/18 17:40 08/19/18 21:56 08/20/18 07:51 08/20/18 08:57 Bedside Glucose 102 78 134 White Blood Count 12.7 H Red Blood Count 3.22 L Hemoglobin 9.6 L Hematocrit 32.0 L Mean Corpuscular Volume 99.4 Mean Corpuscular 29.8 Hemoglobin Mean Corpuscular 30.0 L Hemoglobin Concent Red Cell Distribution 15.9 H Width Platelet Count 78 L Mean Platelet Volume 12.3 H Immature Granulocytes % 0.600 H Neutrophils % 80.4 H Lymphocytes % 5.0 L Monocytes % 6.5 Eosinophils % 7.2 H Basophils % 0.3 Nucleated Red Blood 0.0 Cells % Immature Granulocytes # 0.070 H Neutrophils # 10.2 H Lymphocytes # 0.6 L Monocytes # 0.8 Eosinophils # 0.9 H Basophils # 0.0 Nucleated Red Blood 0.0 Cells # Test 08/20/18 13:17 Bedside Glucose 135 Medications Medication Current Medications Ondansetron HCl (Zofran Inj) 4 mg Q6H PRN IV NAUSEA/VOMITING Last administered on 08/19/18 12:55; Admin Dose 4 MG; Start 08/02/18 at 13:00 Diagnostic Test (Pha) (Accu-Chek) 1 ea 02 XX Last administered on 08/17/18 02:21; Admin Dose 1 EA; Start 08/03/18 at 02:00 Insulin Aspart (Novolog Insulin Pen) NOVOLOG *MILD* ALGORITHM WITH MEALS BEDTIME SC Last administered on 08/18/18 17:29; Admin Dose 1 UNIT; Start 08/02/18 at 18:00 Glucose (Glutose) 15 gm Q15M PRN PO DECREASED GLUCOSE; Start 08/02/18 at 13:30 Glucose (Glutose) 22.5 gm Q15M PRN PO DECREASED GLUCOSE; Start 08/02/18 at 13:30 Dextrose (D50w Syringe) 25 ml Q15M PRN IV DECREASED GLUCOSE Last administered on 08/19/18 02:02; Admin Dose 25 ML; Start 08/02/18 at 13:30 Dextrose (D50w Syringe) 50 ml Q15M PRN IV DECREASED GLUCOSE; Start 08/02/18 at 13:30 Glucagon (Glucagen) 1 mg Q15M PRN IM DECREASED GLUCOSE; Start 08/02/18 at 13:30 Glucose (Glutose) 15 gm Q15M PRN BUCCAL DECREASED GLUCOSE; Start 08/02/18 at 13:30 Cholecalciferol (Vitamin D) 1,000 unit DAILY PO Last administered on 08/20/18 08:59; Admin Dose 1,000 UNIT; Start 08/03/18 at 09:00 Folic Acid (Folic Acid) 1 mg DAILY PO Last administered on 08/20/18 09:00; Admin Dose 1 MG; Start 08/03/18 at 09:00 Sevelamer Carbonate (Renvela) 0.8 gm AC MEALS PO Last administered on 08/20/18 13:19; Admin Dose 0.8 GM; Start 08/02/18 at 17:30 Midodrine (Proamatine) 5 mg ON DIALYSIS DAYS PO Last administered on 08/19/18 12:22; Admin Dose 5 MG; Start 08/02/18 at 18:00 Albumin Human 100 ml @ 100 mls/hr WITH DIALYSIS PRN IV SBP <90 DURING DIALYSIS Last administered on 08/16/18 21:08; Admin Dose 100 MLS/HR; Start 08/07/18 at 10:00 Gabapentin (Neurontin) 100 mg DAILY PO Last administered on 08/13/18 09:07; Admin Dose 100 MG; Start 08/07/18 at 11:30; Status Hold Phenol (Cepastat Lozenge) 1 lozenge Q1H PRN MT COUGH Last administered on 08/08/18 02:34; Admin Dose 1 LOZENGE; Start 08/07/18 at 23:00 Famotidine (Pepcid Iv) 20 mg DAILY IV Last administered on 08/20/18 09:01; Admin Dose 20 MG; Start 08/16/18 at 13:00 Heparin Sodium (Porcine) (Heparin (1000 Units/ml)) 6,100 unit AFTER DIALYSIS CATHETER Last administered on 08/19/18 12:16; Admin Dose 6,100 UNIT; Start 08/16/18 at 22:30 Acetaminophen (Tylenol Tab) 650 mg Q6H PRN PO MILD PAIN(1-3)OR ELEVATED TEMP Last administered on 08/18/18 05:59; Admin Dose 650 MG; Start 08/18/18 at 05:30 Levothyroxine Sodium (Synthroid) 50 mcg DAILY@06 PO Last administered on 08/20/18 06:11; Admin Dose 50 MCG; Start 08/20/18 at 06:00 Insulin Glargine (Lantus) 12 units DAILY@0800 SC Last administered on 08/20/18 09:03; Admin Dose 12 UNITS; Start 08/20/18 at 08:00 Ketorolac Tromethamine (Toradol) 15 mg Q6H PRN IV PAIN Last administered on 3/4/19at 14:00; Admin Dose 15 MG; Start 08/19/18 at 13:00; Stop 08/22/18 at 12:59 Docusate Sodium (Colace) 100 mg DAILY PO Last administered on 08/20/18at 09:00; Admin Dose 100 MG; Start 08/20/18 at 09:00 Morphine Sulfate (morphine) 1 mg Q4H PRN IV SEVERE PAIN LEVEL 7-10; Start 08/20/18 at 09:00 Acetaminophen/ Hydrocodone Bitart ([place] (5/325)) 1 tab Q4H PRN GTB MODERATE PAIN LEVEL 4-6 Last administered on 08/20/18at 09:07; Admin Dose 1 TAB; Start 08/20/18 at 07:30 LUCRETIA QUEEN Aug 20, 2018 16:56
[2018-08-20 20:45] VITALS: BP 91/42; PULSE 89; RESP 20
[2018-08-20] MEDS ORDERED: morphine LIQ (10 MG/5 ML) CUP PO PRN (23:45)
[2018-08-21] VITALS (19 sets, daily range): BP systolic 82–122; BP diastolic 51–89; PULSE 68–112; RESP 18
[2018-08-21] MEDS: ACCU-CHEK XX SCH (02:00)
[2018-08-21] MEDS: LEVOTHYROXINE 50 MCG TAB PO SCH (06:25)
[2018-08-21] MEDS: MIDODRINE 5 MG TAB PO SCH (07:02)
--- NOTE | 2018-08-21 09:06 | PN ---
Date/Time of Note Date/Time of Note DATE: 08/21/18 TIME: 09:06 Assessment/Plan VTE Prophylaxis Risk score (from Nsg)>0 risk: 14 SCD applied (from Nsg): Yes Pharmacological prophylaxis: apixaban Lines/Catheters IV Catheter Type (from Nrsg): AILEEN CATH FOR HD Urinary Cath still in place: No Assessment/Plan Assessment/Plan 1. Colonic mass at the splenic flexure and ascending colon s/p subtotal colectomy and small bowel resection on 08/14/18 - No acute issues and tolerating PO intake well - Dr. Meneses on board and appreciate consultation. Recommending caloric counting and advance diet as tolerated - GI on board and appreciate recommendations. 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 Will need 36 months of adjuvant therapy for GIST tumor but no further intervention for adenocarcinoma - Cardiology consultation appreciated 2. End-stage renal disease on HD - Nephrology on board for HD management and appreciate recommendations - clogged fistula catheter (HeRO), consulted Dr. Coelho for recs as he is patient's vascular surgeon, recommended Aileen for now until we can fully anticoagulate. Follow as outpatient. Will start Eliquis low dose given Ok to start anticoagulation per Dr. Meneses 3. GI bleed 2/2 to above mass - resolved - Eliquis started and will monitor for any bleeding 4. Arm swelling - Ultrasound showed right brachial DVT as well as thrombosis of the left cephalic vein. Remains asymptomatic. Discussed with patient and his family, that upper extremity DVTs are usually treated conservatively unless symptomatic. Patient's midline on his right arm is the likely culprit for the DVT on his right brachial vein. - dialysis catheter in left arm clotted for now, no Cathflo due to recent surgery per vascular surgery - monitor, warm compresses. - Patient is likely an hypercoagulable state due to his carcinoma and started on Eliquis 5. Diabetes - A1c noted - counseled about importance of diet choices and glucose control - Continue Lantus and ISS 6. Esophagitis - Continue PPI 7. Hypothyroidism - Continue home Synthroid 8. Persistent cough - improvement with Gabapentin 9. 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 Mild acute on chronic systolic HF - fluid removal during HD 11. Disposition - PT for discharge planning - Will start on Eliquis and monitor for any acute bleeding Result Diagram: 08/21/18 0442 08/21/18 0442 Results 24hrs Laboratory Tests Test 08/20/18 13:17 08/20/18 17:37 08/20/18 20:54 08/21/18 01:59 Bedside Glucose 135 178 212 193 Test 08/21/18 04:42 White Blood Count 14.4 H Red Blood Count 3.50 L Hemoglobin 10.4 L Hematocrit 33.8 L Mean Corpuscular Volume 96.6 Mean Corpuscular 29.7 Hemoglobin Mean Corpuscular 30.8 L Hemoglobin Concent Red Cell Distribution 16.2 H Width Platelet Count 102 #L Mean Platelet Volume 12.7 H Immature Granulocytes % 0.600 H Neutrophils % 84.5 H Lymphocytes % 4.2 L Monocytes % 5.3 Eosinophils % 5.1 Basophils % 0.3 Nucleated Red Blood 0.0 Cells % Immature Granulocytes # 0.080 H Neutrophils # 12.2 H Lymphocytes # 0.6 L Monocytes # 0.8 Eosinophils # 0.7 H Basophils # 0.0 Nucleated Red Blood 0.0 Cells # Sodium Level 137 Potassium Level 4.8 Chloride Level 103 Carbon Dioxide Level 25 Anion Gap 9 Blood Urea Nitrogen 34 H Creatinine 4.87 H Est Glomerular Filtrat Rate mL/min Glucose Level 173 Calcium Level 8.4 Phosphorus Level 4.1 Magnesium Level 2.0 Albumin 2.2 L Subjective 24 Hr Interval Summary Free Text/Dictation Patient doing well and no acute issues at this time. HD this am without any complaints. Exam/Review of Systems Exam Vitals Vital Signs Date Temp Pulse Resp B/P (MAP) Pulse Ox O2 O2 Flow FiO2 Time Delivery Rate 08/21/18 108 09:00 08/21/18 98.0 18 106/73 98 08:29 (84) 08/21/18 Nasal 2.0 07:48 Cannula Intake and Output 08/20/18 08/20/18 08/21/18 1515:00 23:00 07:00 IntakeIntake Total 200 ml 250 ml BalanceBalance 200 ml 250 ml Exam General: Patient is laying in bed and answers questions appropriately Respiratory: Clear to auscultation bilaterally. no wheezing or rhonchi Cardiovascular: regular rate and rhythm, no obvious murmurs Gastrointestinal: soft, mildly tender to palpation along surgical incision site. nondistended, no guarding Neurological: Moves all extremities spontaneously Skin: abdominal midline incision,will intact, incision site clean and dry without any discharge appreciated. Results Results 24hrs Laboratory Tests Test 08/20/18 13:17 08/20/18 17:37 08/20/18 20:54 08/21/18 01:59 Bedside Glucose 135 178 212 193 Test 08/21/18 04:42 White Blood Count 14.4 H Red Blood Count 3.50 L Hemoglobin 10.4 L Hematocrit 33.8 L Mean Corpuscular Volume 96.6 Mean Corpuscular 29.7 Hemoglobin Mean Corpuscular 30.8 L Hemoglobin Concent Red Cell Distribution 16.2 H Width Platelet Count 102 #L Mean Platelet Volume 12.7 H Immature Granulocytes % 0.600 H Neutrophils % 84.5 H Lymphocytes % 4.2 L Monocytes % 5.3 Eosinophils % 5.1 Basophils % 0.3 Nucleated Red Blood 0.0 Cells % Immature Granulocytes # 0.080 H Neutrophils # 12.2 H Lymphocytes # 0.6 L Monocytes # 0.8 Eosinophils # 0.7 H Basophils # 0.0 Nucleated Red Blood 0.0 Cells # Sodium Level 137 Potassium Level 4.8 Chloride Level 103 Carbon Dioxide Level 25 Anion Gap 9 Blood Urea Nitrogen 34 H Creatinine 4.87 H Est Glomerular Filtrat Rate mL/min Glucose Level 173 Calcium Level 8.4 Phosphorus Level 4.1 Magnesium Level 2.0 Albumin 2.2 L Medications Medication Current Medications Ondansetron HCl (Zofran Inj) 4 mg Q6H PRN IV NAUSEA/VOMITING Last administered on 08/19/18at 12:55; Admin Dose 4 MG; Start 08/02/18 at 13:00 Diagnostic Test (Pha) (Accu-Chek) 1 ea 02 XX Last administered on 08/21/18at 02:00; Admin Dose 1 EA; Start 08/03/18 at 02:00 Insulin Aspart (Novolog Insulin Pen) NOVOLOG *MILD* ALGORITHM WITH MEALS BEDTIME SC Last administered on 08/20/18at 20:57; Admin Dose 1 UNIT; Start 08/02/18 at 18:00 Glucose (Glutose) 15 gm Q15M PRN PO DECREASED GLUCOSE; Start 08/02/18 at 13:30 Glucose (Glutose) 22.5 gm Q15M PRN PO DECREASED GLUCOSE; Start 08/02/18 at 13:30 Dextrose (D50w Syringe) 25 ml Q15M PRN IV DECREASED GLUCOSE Last administered on 08/19/18 02:02; Admin Dose 25 ML; Start 08/02/18 at 13:30 Dextrose (D50w Syringe) 50 ml Q15M PRN IV DECREASED GLUCOSE; Start 08/02/18 at 13:30 Glucagon (Glucagen) 1 mg Q15M PRN IM DECREASED GLUCOSE; Start 08/02/18 at 13:30 Glucose (Glutose) 15 gm Q15M PRN BUCCAL DECREASED GLUCOSE; Start 08/02/18 at 13:30 Cholecalciferol (Vitamin D) 1,000 unit DAILY PO Last administered on 08/20/18 08:59; Admin Dose 1,000 UNIT; Start 08/03/18 at 09:00 Folic Acid (Folic Acid) 1 mg DAILY PO Last administered on 08/20/18 09:00; Admin Dose 1 MG; Start 08/03/18 at 09:00 Sevelamer Carbonate (Renvela) 0.8 gm AC MEALS PO Last administered on 08/20/18 17:43; Admin Dose 0.8 GM; Start 08/02/18 at 17:30 Midodrine (Proamatine) 5 mg ON DIALYSIS DAYS PO Last administered on 08/21/18 07:02; Admin Dose 5 MG; Start 08/02/18 at 18:00 Albumin Human 100 ml @ 100 mls/hr WITH DIALYSIS PRN IV SBP <90 DURING DIALYSIS Last administered on 08/16/18 21:08; Admin Dose 100 MLS/HR; Start 08/07/18 at 10:00 Gabapentin (Neurontin) 100 mg DAILY PO Last administered on 08/13/18 09:07; Admin Dose 100 MG; Start 08/07/18 at 11:30; Status Hold Phenol (Cepastat Lozenge) 1 lozenge Q1H PRN MT COUGH Last administered on 02:34; Admin Dose 1 LOZENGE; Start 08/07/18 at 23:00 Heparin Sodium (Porcine) (Heparin (1000 Units/ml)) 6,100 unit AFTER DIALYSIS CATHETER Last administered on 08/19/18 12:16; Admin Dose 6,100 UNIT; Start 08/16/18 at 22:30 Acetaminophen (Tylenol Tab) 650 mg Q6H PRN PO MILD PAIN(1-3)OR ELEVATED TEMP Last administered on 08/18/18 05:59; Admin Dose 650 MG; Start 08/18/18 at 05:30 Levothyroxine Sodium (Synthroid) 50 mcg DAILY@06 PO Last administered on 08/21/18 06:25; Admin Dose 50 MCG; Start 08/20/18 at 06:00 Insulin Glargine (Lantus) 12 units DAILY@0800 SC Last administered on 08/20/18 09:03; Admin Dose 12 UNITS; Start 08/20/18 at 08:00 Ketorolac Tromethamine (Toradol) 15 mg Q6H PRN IV PAIN Last administered on 08/19/18at 14:00; Admin Dose 15 MG; Start 08/19/18 at 13:00; Stop 08/22/18 at 12:59 Docusate Sodium (Colace) 100 mg DAILY PO Last administered on 08/20/18 09:00; Admin Dose 100 MG; Start 08/20/18 at 09:00 Acetaminophen/ Hydrocodone Bitart (Rice (5/325)) 1 tab Q4H PRN GTB MODERATE PAIN LEVEL 4-6 Last administered on 08/20/18 09:07; Admin Dose 1 TAB; Start 08/20/18 at 07:30 Famotidine (Pepcid) 20 mg DAILY PO ; Start 08/21/18 at 09:00 Morphine Sulfate (morphine) 1 mg Q4H PRN IV SEVERE PAIN LEVEL 7-10; Start 08/20/18 at 23:45 JO HURST MD Aug 21, 2018 09:06
[2018-08-21] MEDS: ALBUMIN HUMAN 25% 100 ML IV PRN (09:30)
--- NOTE | 2018-08-21 09:46 | CONS ---
Assessment/Plan Assessment/Plan Assessment/Plan (Daily) Assessment/Plan (Daily) 1 End-stage renal disease, on hemodialysis, mwf with mild CHF MWF 2. 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 Hypotension. On Midodrine at home 4. History of congestive heart failure.1 End-stage renal disease, on hemodialysis,mwf with mild CHF 5. Hypercholesterolemia. 6. Hx of total hip replacement. 7. leucocytosis, off pressor and trending down leukocytosis 8. Hypoglycemia. 9. Macrocytic hypochromic Anemia mixed etiology, recent blood loss and 2/2 kidney disease 10. 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 Getting HD now systolic blood pressure 90s -100 he denies any dizzy dizziness any leg cramps Exam/Review of Systems Exam Vitals Vital Signs Date Temp Pulse Resp B/P (MAP) Pulse Ox O2 O2 Flow FiO2 Time Delivery Rate 08/21/18 110 09:15 08/21/18 98.0 18 106/73 98 08:29 (84) 08/21/18 Nasal 2.0 07:48 Cannula Intake and Output 08/20/18 08/20/18 08/21/18 1515:00 23:00 07:00 IntakeIntake Total 200 ml 250 ml BalanceBalance 200 ml 250 ml Exam ead: normocephalic Eyes: nl conjunctiva Neck: supple Respiratory: clear to auscultation Cardiovascular: regular rate and rhythm, other (paced 100 %) Gastrointestinal: soft, nl liver, spleen, TTP rt femoral permacath Results Result Diagram: 08/21/18 0442 08/21/18 0442 Results 24hrs Laboratory Tests Test 08/20/18 13:17 08/20/18 17:37 08/20/18 20:54 08/21/18 01:59 Bedside Glucose 135 178 212 193 Test 08/21/18 04:42 08/21/18 09:06 White Blood Count 14.4 H Red Blood Count 3.50 L Hemoglobin 10.4 L Hematocrit 33.8 L Mean Corpuscular Volume 96.6 Mean Corpuscular 29.7 Hemoglobin Mean Corpuscular 30.8 L Hemoglobin Concent Red Cell Distribution 16.2 H Width Platelet Count 102 #L Mean Platelet Volume 12.7 H Immature Granulocytes % 0.600 H Neutrophils % 84.5 H Lymphocytes % 4.2 L Monocytes % 5.3 Eosinophils % 5.1 Basophils % 0.3 Nucleated Red Blood 0.0 Cells % Immature Granulocytes # 0.080 H Neutrophils # 12.2 H Lymphocytes # 0.6 L Monocytes # 0.8 Eosinophils # 0.7 H Basophils # 0.0 Nucleated Red Blood 0.0 Cells # Sodium Level 137 Potassium Level 4.8 Chloride Level 103 Carbon Dioxide Level 25 Anion Gap 9 Blood Urea Nitrogen 34 H Creatinine 4.87 H Est Glomerular Filtrat Rate mL/min Glucose Level 173 Calcium Level 8.4 Phosphorus Level 4.1 Magnesium Level 2.0 Albumin 2.2 L Bedside Glucose 127 Medications Medication Current Medications Ondansetron HCl (Zofran Inj) 4 mg Q6H PRN IV NAUSEA/VOMITING Last administered on 08/19/18at 12:55; Admin Dose 4 MG; Start 08/02/18 at 13:00 Diagnostic Test (Pha) (Accu-Chek) 1 ea 02 XX Last administered on 08/21/18at 02:00; Admin Dose 1 EA; Start 08/03/18 at 02:00 Insulin Aspart (Novolog Insulin Pen) NOVOLOG *MILD* ALGORITHM WITH MEALS BEDTIME SC Last administered on 08/20/18at 20:57; Admin Dose 1 UNIT; Start 08/02/18 at 18:00 Glucose (Glutose) 15 gm Q15M PRN PO DECREASED GLUCOSE; Start 08/02/18 at 13:30 Glucose (Glutose) 22.5 gm Q15M PRN PO DECREASED GLUCOSE; Start 08/02/18 at 13:30 Dextrose (D50w Syringe) 25 ml Q15M PRN IV DECREASED GLUCOSE Last administered on 08/19/18 02:02; Admin Dose 25 ML; Start 08/02/18 at 13:30 Dextrose (D50w Syringe) 50 ml Q15M PRN IV DECREASED GLUCOSE; Start 08/02/18 at 13:30 Glucagon (Glucagen) 1 mg Q15M PRN IM DECREASED GLUCOSE; Start 08/02/18 at 13:30 Glucose (Glutose) 15 gm Q15M PRN BUCCAL DECREASED GLUCOSE; Start 08/02/18 at 13:30 Cholecalciferol (Vitamin D) 1,000 unit DAILY PO Last administered on 08/20/18 08:59; Admin Dose 1,000 UNIT; Start 08/03/18 at 09:00 Folic Acid (Folic Acid) 1 mg DAILY PO Last administered on 08/20/18 09:00; Admin Dose 1 MG; Start 08/03/18 at 09:00 Sevelamer Carbonate (Renvela) 0.8 gm AC MEALS PO Last administered on 08/20/18 17:43; Admin Dose 0.8 GM; Start 08/02/18 at 17:30 Midodrine (Proamatine) 5 mg ON DIALYSIS DAYS PO Last administered on 08/21/18 07:02; Admin Dose 5 MG; Start 08/02/18 at 18:00 Albumin Human 100 ml @ 100 mls/hr WITH DIALYSIS PRN IV SBP <90 DURING DIALYSIS Last administered on 08/21/18 09:30; Admin Dose 100 MLS/HR; Start 08/07/18 at 10:00 Gabapentin (Neurontin) 100 mg DAILY PO Last administered on 08/13/18 09:07; Admin Dose 100 MG; Start 08/07/18 at 11:30; Status Hold Phenol (Cepastat Lozenge) 1 lozenge Q1H PRN MT COUGH Last administered on 08/08/18 02:34; Admin Dose 1 LOZENGE; Start 08/07/18 at 23:00 Heparin Sodium (Porcine) (Heparin (1000 Units/ml)) 6,100 unit AFTER DIALYSIS CATHETER Last administered on 08/19/18 12:16; Admin Dose 6,100 UNIT; Start 08/16/18 at 22:30 Acetaminophen (Tylenol Tab) 650 mg Q6H PRN PO MILD PAIN(1-3)OR ELEVATED TEMP Last administered on 08/18/18at 05:59; Admin Dose 650 MG; Start 08/18/18 at 05:30 Levothyroxine Sodium (Synthroid) 50 mcg DAILY@06 PO Last administered on 08/21/18at 06:25; Admin Dose 50 MCG; Start 08/20/18 at 06:00 Insulin Glargine (Lantus) 12 units DAILY@0800 SC Last administered on 08/20/18at 09:03; Admin Dose 12 UNITS; Start 08/20/18 at 08:00 Ketorolac Tromethamine (Toradol) 15 mg Q6H PRN IV PAIN Last administered on 08/19/18at 14:00; Admin Dose 15 MG; Start 08/19/18 at 13:00; Stop 08/22/18 at 12:59 Docusate Sodium (Colace) 100 mg DAILY PO Last administered on 08/20/18at 09:00; Admin Dose 100 MG; Start 08/20/18 at 09:00 Acetaminophen/ Hydrocodone Bitart (Glidden (5/325)) 1 tab Q4H PRN GTB MODERATE PAIN LEVEL 4-6 Last administered on 08/20/18at 09:07; Admin Dose 1 TAB; Start 08/20/18 at 07:30 Famotidine (Pepcid) 20 mg DAILY PO ; Start 08/21/18 at 09:00 Morphine Sulfate (morphine) 1 mg Q4H PRN IV SEVERE PAIN LEVEL 7-10; Start 08/20/18 at 23:45 Apixaban (Eliquis) 2.5 mg BID PO ; Start 08/21/18 at 09:30 NNEKA FRITZ MD Aug 21, 2018 09:46
[2018-08-21] MEDS: HEPARIN 1000 UNITS/ML 10 ML INJ CATHETER SCH (10:19)
[2018-08-21] MEDS: INSULIN ASPART [NOVOLOG] 3 ML PEN SC SCH ×4 (11:18→22:32)
[2018-08-21] MEDS: INSULIN GLARGINE [LANTus] (100 UNITS/ML) SYG SC SCH (11:19)
[2018-08-21] MEDS: APIXABAN 5 MG TABLET PO SCH ×2 (11:20→20:11)
[2018-08-21] MEDS: BALSAM PERU/CASTOR OIL 60 GM TUBE TOP SCH ×2 (11:20→22:27)
[2018-08-21] MEDS: FAMOTIDINE 20 MG TAB PO SCH (11:21)
[2018-08-21] MEDS: DOCUSATE SODIUM 100 MG CAP PO SCH (11:21)
[2018-08-21] MEDS: CHOLECALCIFEROL 1,000 UNIT TAB PO SCH (11:21)
[2018-08-21] MEDS: FOLIC ACID 1 MG TAB PO SCH (11:21)
[2018-08-21] MEDS: SEVELAMER CARBONATE 0.8 GM PKT PO SCH ×3 (11:21→17:50)
--- NOTE | 2018-08-21 13:14 | CONS ---
Assessment/Plan Assessment/Plan Hospital Course (Demo Recall) Acute on chronic systolic CHF: euvolemic Right upper extremity DVT: started on Eliquis Non-ischemic Cardiomyopathy PPM: [place] 05/04. For ?complete heart block as 100% v paced. Normal function on interrogation and reprogramming 08/14 and 08/15 Pulm HTN: PAP 60s by echo Mild-moderate aortic stenosis Colon cancer: s/p subtotal colectomy 08/14 ESRD on HD -midodrine on HD days. If SBP stable, could consider low dose coreg -Eliquis 2.5mg BID -HD per nephrology for volume management Consultation Date/Type/Reason Admit Date/Time Aug 02, 2018 at 10:57 Initial Consult Date 08/08/18 Type of Consult Cardiology Requesting Provider: DULCE GALINDO Date/Time of Note DATE: 08/21/18 TIME: 13:13 24 HR Interval Summary Free Text/Dictation No events. More alert and oriented today Exam/Review of Systems Exam Vitals Vital Signs Date Temp Pulse Resp B/P (MAP) Pulse Ox O2 O2 Flow FiO2 Time Delivery Rate 08/21/18 99 10:35 08/21/18 98.0 18 106/73 98 08:29 (84) 08/21/18 Nasal 2.0 08:00 Cannula Intake and Output 08/20/18 08/20/18 08/21/18 1414:59 22:59 06:59 IntakeIntake Total 200 ml 250 ml BalanceBalance 200 ml 250 ml Constitutional: alert, oriented Neck: No jvd Respiratory: diminished breath sounds; No clear to auscultation Cardiovascular: regular rate and rhythm; No edema Gastrointestinal: soft, non-tender; No distended Neurological: nl mental status, nl speech Results Result Diagram: 08/21/18 0442 08/21/182 Results 24hrs Laboratory Tests Test 08/20/18 13:17 08/20/18 17:37 08/20/18 20:54 08/21/18 01:59 Bedside Glucose 135 178 212 193 Test 08/21/18 04:42 08/21/18 09:06 08/21/18 11:18 White Blood Count 14.4 H Red Blood Count 3.50 L Hemoglobin 10.4 L Hematocrit 33.8 L Mean Corpuscular Volume 96.6 Mean Corpuscular 29.7 Hemoglobin Mean Corpuscular 30.8 L Hemoglobin Concent Red Cell Distribution 16.2 H Width Platelet Count 102 #L Mean Platelet Volume 12.7 H Immature Granulocytes % 0.600 H Neutrophils % 84.5 H Lymphocytes % 4.2 L Monocytes % 5.3 Eosinophils % 5.1 Basophils % 0.3 Nucleated Red Blood 0.0 Cells % Immature Granulocytes # 0.080 H Neutrophils # 12.2 H Lymphocytes # 0.6 L Monocytes # 0.8 Eosinophils # 0.7 H Basophils # 0.0 Nucleated Red Blood 0.0 Cells # Sodium Level 137 Potassium Level 4.8 Chloride Level 103 Carbon Dioxide Level 25 Anion Gap 9 Blood Urea Nitrogen 34 H Creatinine 4.87 H Est Glomerular Filtrat Rate mL/min Glucose Level 173 Calcium Level 8.4 Phosphorus Level 4.1 Magnesium Level 2.0 Albumin 2.2 L Bedside Glucose 127 112 Medications Medication Current Medications Ondansetron HCl (Zofran Inj) 4 mg Q6H PRN IV NAUSEA/VOMITING Last administered on 08/19/18at 12:55; Admin Dose 4 MG; Start 08/02/18 at 13:00 Diagnostic Test (Pha) (Accu-Chek) 1 ea 02 XX Last administered on 08/21/18at 02:00; Admin Dose 1 EA; Start 08/03/18 at 02:00 Insulin Aspart (Novolog Insulin Pen) NOVOLOG *MILD* ALGORITHM WITH MEALS BEDTIME SC Last administered on 08/20/18at 20:57; Admin Dose 1 UNIT; Start 08/02/18 at 18:00 Glucose (Glutose) 15 gm Q15M PRN PO DECREASED GLUCOSE; Start 08/02/18 at 13:30 Glucose (Glutose) 22.5 gm Q15M PRN PO DECREASED GLUCOSE; Start 08/02/18 at 13:30 Dextrose (D50w Syringe) 25 ml Q15M PRN IV DECREASED GLUCOSE Last administered on 08/19/18 02:02; Admin Dose 25 ML; Start 08/02/18 at 13:30 Dextrose (D50w Syringe) 50 ml Q15M PRN IV DECREASED GLUCOSE; Start 08/02/18 at 13:30 Glucagon (Glucagen) 1 mg Q15M PRN IM DECREASED GLUCOSE; Start 08/02/18 at 13:30 Glucose (Glutose) 15 gm Q15M PRN BUCCAL DECREASED GLUCOSE; Start 08/02/18 at 13:30 Cholecalciferol (Vitamin D) 1,000 unit DAILY PO Last administered on 08/21/18 11:21; Admin Dose 1,000 UNIT; Start 08/03/18 at 09:00 Folic Acid (Folic Acid) 1 mg DAILY PO Last administered on 08/21/18 11:21; Admin Dose 1 MG; Start 08/03/18 at 09:00 Sevelamer Carbonate (Renvela) 0.8 gm AC MEALS PO Last administered on 08/21/18 11:21; Admin Dose 0.8 GM; Start 08/02/18 at 17:30 Midodrine (Proamatine) 5 mg ON DIALYSIS DAYS PO Last administered on 08/21/18 07:02; Admin Dose 5 MG; Start 08/02/18 at 18:00 Albumin Human 100 ml @ 100 mls/hr WITH DIALYSIS PRN IV SBP <90 DURING DIALYSIS Last administered on 08/21/18 09:30; Admin Dose 100 MLS/HR; Start 08/07/18 at 10:00 Gabapentin (Neurontin) 100 mg DAILY PO Last administered on 08/13/18 09:07; Admin Dose 100 MG; Start 08/07/18 at 11:30; Status Hold Phenol (Cepastat Lozenge) 1 lozenge Q1H PRN MT COUGH Last administered on 08/08/18 02:34; Admin Dose 1 LOZENGE; Start 08/07/18 at 23:00 Heparin Sodium (Porcine) (Heparin (1000 Units/ml)) 6,100 unit AFTER DIALYSIS CATHETER Last administered on 08/21/18 10:19; Admin Dose 6,100 UNIT; Start 08/16/18 at 22:30 Acetaminophen (Tylenol Tab) 650 mg Q6H PRN PO MILD PAIN(1-3)OR ELEVATED TEMP Last administered on 08/18/18 05:59; Admin Dose 650 MG; Start 08/18/18 at 05:30 Levothyroxine Sodium (Synthroid) 50 mcg DAILY@06 PO Last administered on 08/21/18 06:25; Admin Dose 50 MCG; Start 08/20/18 at 06:00 Insulin Glargine (Lantus) 12 units DAILY@0800 SC Last administered on 08/21/18 11:19; Admin Dose 12 UNITS; Start 08/20/18 at 08:00 Ketorolac Tromethamine (Toradol) 15 mg Q6H PRN IV PAIN Last administered on 08/19/18 14:00; Admin Dose 15 MG; Start 08/19/18 at 13:00; Stop 08/22/18 at 12:59 Docusate Sodium (Colace) 100 mg DAILY PO Last administered on 08/21/18 11:21; Admin Dose 100 MG; Start 08/20/18 at 09:00 Acetaminophen/ Hydrocodone Bitart (Jessie (5/325)) 1 tab Q4H PRN GTB MODERATE PAIN LEVEL 4-6 Last administered on 08/20/18 09:07; Admin Dose 1 TAB; Start 08/20/18 at 07:30 Famotidine (Pepcid) 20 mg DAILY PO Last administered on 08/21/18 11:21; Admin Dose 20 MG; Start 08/21/18 at 09:00 Morphine Sulfate (morphine) 1 mg Q4H PRN IV SEVERE PAIN LEVEL 7-10; Start 08/20/18 at 23:45 Apixaban (Eliquis) 2.5 mg BID PO Last administered on 08/21/18 11:20; Admin Dose 2.5 MG; Start 08/21/18 at 09:30 LUCRETIA QUEEN Aug 21, 2018 13:14
--- NOTE | 2018-08-21 13:43 | CONS ---
Assessment/Plan Assessment/Plan Hospital Course (Demo Recall) #Adenocarcinoma of ascending Colon ca -final pathology report reveals 2 separate masses with different pathology results. -the ascending colon mass is consistent with a Moderately-differentiated adenocarcinoma, invading through the muscularis propria, with all 0/18 negative for disease, 3.6 x 2.8 x 1.1 cm. -the splenic flexture mass is 10.5 x 9.0 x 7.0 cm.and consistent with a high grade GIST tumor -CT does not reveal evidence of distant mets -in terms of the adenocarcinoma, pt does not need adjuvant chemotherapy given this was a stage IIA tumor. 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 However we need to see if he is positive for KIT exon 9 mutation which may need higher doses of imatinib (eg 800mg q day vs 400mg q day) -Regardless, given he does have the KIT mutation he would He would however benefit adjuvant Gleevec for at least 36 mo #ESRD -continue HD per renal #Diabetes - A1c noted - Continue Lantus and ISS #Hypothyroidism - Continue Synthroid #Nonischemic CM - pacer in place - nonchronic Thank you for the opportunity to participate in this patients care A total of 40 minutes of face to face time was spent speaking with the patient, of which greater than 50% was spent in counseling and coordination of care and the detailed question and answer session. Consultation Date/Type/Reason Admit Date/Time Aug 02, 2018 at 10:57 Initial Consult Date 08/09/18 Type of Consult oncology Reason for Consultation colon ca Requesting Provider: DULCE GALINDO Date/Time of Note DATE: 08/21/18 TIME: 13:33 24 HR Interval Summary Free Text/Dictation pt recovering well from surgery. continues with HD Exam/Review of Systems Exam Vitals Vital Signs Date Temp Pulse Resp B/P (MAP) Pulse Ox O2 O2 Flow FiO2 Time Delivery Rate 08/21/18 99 10:35 08/21/18 98.0 18 106/73 98 08:29 (84) 08/21/18 Nasal 2.0 08:00 Cannula Intake and Output 08/20/18 08/20/18 08/21/18 1414:59 22:59 06:59 IntakeIntake Total 200 ml 250 ml BalanceBalance 200 ml 250 ml Constitutional: distress, frail Psych: no complaints, confusion Head: normocephalic Eyes: nl conjunctiva ENMT: nl external ears & nose Neck: supple Respiratory: clear to auscultation Cardiovascular: regular rate and rhythm Gastrointestinal: soft, surgical scars, tender Musculoskeletal: nl extremities to inspection Results Result Diagram: 08/21/18 0442 08/21/18 0442 Results 24hrs Laboratory Tests Test 08/20/18 17:37 08/20/18 20:54 08/21/18 01:59 08/21/18 04:42 Bedside Glucose 178 212 193 White Blood Count 14.4 H Red Blood Count 3.50 L Hemoglobin 10.4 L Hematocrit 33.8 L Mean Corpuscular Volume 96.6 Mean Corpuscular 29.7 Hemoglobin Mean Corpuscular 30.8 L Hemoglobin Concent Red Cell Distribution 16.2 H Width Platelet Count 102 #L Mean Platelet Volume 12.7 H Immature Granulocytes % 0.600 H Neutrophils % 84.5 H Lymphocytes % 4.2 L Monocytes % 5.3 Eosinophils % 5.1 Basophils % 0.3 Nucleated Red Blood 0.0 Cells % Immature Granulocytes # 0.080 H Neutrophils # 12.2 H Lymphocytes # 0.6 L Monocytes # 0.8 Eosinophils # 0.7 H Basophils # 0.0 Nucleated Red Blood 0.0 Cells # Sodium Level 137 Potassium Level 4.8 Chloride Level 103 Carbon Dioxide Level 25 Anion Gap 9 Blood Urea Nitrogen 34 H Creatinine 4.87 H Est Glomerular Filtrat Rate mL/min Glucose Level 173 Calcium Level 8.4 Phosphorus Level 4.1 Magnesium Level 2.0 Albumin 2.2 L Test 08/21/18 09:06 08/21/18 11:18 Bedside Glucose 127 112 Medications Medication Current Medications Ondansetron HCl (Zofran Inj) 4 mg Q6H PRN IV NAUSEA/VOMITING Last administered on 08/19/18at 12:55; Admin Dose 4 MG; Start 08/02/18 at 13:00 Diagnostic Test (Pha) (Accu-Chek) 1 ea 02 XX Last administered on 08/21/18at 02:00; Admin Dose 1 EA; Start 08/03/18 at 02:00 Insulin Aspart (Novolog Insulin Pen) NOVOLOG *MILD* ALGORITHM WITH MEALS BEDTIME SC Last administered on 08/20/18 20:57; Admin Dose 1 UNIT; Start 08/02/18 at 18:00 Glucose (Glutose) 15 gm Q15M PRN PO DECREASED GLUCOSE; Start 08/02/18 at 13:30 Glucose (Glutose) 22.5 gm Q15M PRN PO DECREASED GLUCOSE; Start 08/02/18 at 13:30 Dextrose (D50w Syringe) 25 ml Q15M PRN IV DECREASED GLUCOSE Last administered on 08/19/18 02:02; Admin Dose 25 ML; Start 08/02/18 at 13:30 Dextrose (D50w Syringe) 50 ml Q15M PRN IV DECREASED GLUCOSE; Start 08/02/18 at 13:30 Glucagon (Glucagen) 1 mg Q15M PRN IM DECREASED GLUCOSE; Start 08/02/18 at 13:30 Glucose (Glutose) 15 gm Q15M PRN BUCCAL DECREASED GLUCOSE; Start 08/02/18 at 13:30 Cholecalciferol (Vitamin D) 1,000 unit DAILY PO Last administered on 08/21/18 11:21; Admin Dose 1,000 UNIT; Start 08/03/18 at 09:00 Folic Acid (Folic Acid) 1 mg DAILY PO Last administered on 08/21/18 11:21; Admin Dose 1 MG; Start 08/03/18 at 09:00 Sevelamer Carbonate (Renvela) 0.8 gm AC MEALS PO Last administered on 08/21/18 11:21; Admin Dose 0.8 GM; Start 08/02/18 at 17:30 Midodrine (Proamatine) 5 mg ON DIALYSIS DAYS PO Last administered on 08/21/18 07:02; Admin Dose 5 MG; Start 08/02/18 at 18:00 Albumin Human 100 ml @ 100 mls/hr WITH DIALYSIS PRN IV SBP <90 DURING DIALYSIS Last administered on 08/21/18 09:30; Admin Dose 100 MLS/HR; Start 08/07/18 at 10:00 Gabapentin (Neurontin) 100 mg DAILY PO Last administered on 08/13/18 09:07; Admin Dose 100 MG; Start 08/07/18 at 11:30; Status Hold Phenol (Cepastat Lozenge) 1 lozenge Q1H PRN MT COUGH Last administered on 08/08/18 02:34; Admin Dose 1 LOZENGE; Start 08/07/18 at 23:00 Heparin Sodium (Porcine) (Heparin (1000 Units/ml)) 6,100 unit AFTER DIALYSIS CATHETER Last administered on 08/21/18 10:19; Admin Dose 6,100 UNIT; Start 08/16/18 at 22:30 Acetaminophen (Tylenol Tab) 650 mg Q6H PRN PO MILD PAIN(1-3)OR ELEVATED TEMP Last administered on 08/18/18 05:59; Admin Dose 650 MG; Start 08/18/18 at 05:30 Levothyroxine Sodium (Synthroid) 50 mcg DAILY@06 PO Last administered on 08/21/18 06:25; Admin Dose 50 MCG; Start 08/20/18 at 06:00 Insulin Glargine (Lantus) 12 units DAILY@0800 SC Last administered on 08/21/18 11:19; Admin Dose 12 UNITS; Start 08/20/18 at 08:00 Ketorolac Tromethamine (Toradol) 15 mg Q6H PRN IV PAIN Last administered on 08/19/18 14:00; Admin Dose 15 MG; Start 08/19/18 at 13:00; Stop 08/22/18 at 12:59 Docusate Sodium (Colace) 100 mg DAILY PO Last administered on 08/21/18 11:21; Admin Dose 100 MG; Start 08/20/18 at 09:00 Acetaminophen/ Hydrocodone Bitart ([place] (5/325)) 1 tab Q4H PRN GTB MODERATE PAIN LEVEL 4-6 Last administered on 08/20/18 09:07; Admin Dose 1 TAB; Start 08/20/18 at 07:30 Famotidine (Pepcid) 20 mg DAILY PO Last administered on 08/21/18 11:21; Admin Dose 20 MG; Start 08/21/18 at 09:00 Morphine Sulfate (morphine) 1 mg Q4H PRN IV SEVERE PAIN LEVEL 7-10; Start 08/20/18 at 23:45 Apixaban (Eliquis) 2.5 mg BID PO Last administered on 08/21/18 11:20; Admin Dose 2.5 MG; Start 08/21/18 at 09:30 JAGUAR CARTWRIGHT M.D. Aug 21, 2018 13:43
[2018-08-21] MEDS: KETOROLAC 15 MG INJ IV PRN (15:04)
[2018-08-21] MEDS: HYDROCODONE/APAP (5/325) TAB GTB PRN (22:26)
[2018-08-22] MEDS: KETOROLAC 15 MG INJ IV PRN ×2 (00:34→07:01)
[2018-08-22 02:00] VITALS: BP 100/58; PULSE 102; RESP 18
[2018-08-22] MEDS: ACCU-CHEK XX SCH (02:08)
[2018-08-22] MEDS ORDERED: INSULIN ASPART [NOVOLOG] 3 ML PEN SC ONE (02:30)
[2018-08-22] MEDS: LEVOTHYROXINE 50 MCG TAB PO SCH (05:42)
[2018-08-22 07:28] VITALS: BP 107/56; PULSE 102; RESP 18
[2018-08-22] MEDS ORDERED: BISACODYL 10 MG SUPP PR ONE (07:30)
--- NOTE | 2018-08-22 07:37 | PN ---
Date/Time of Note Date/Time of Note DATE: 08/22/18 TIME: 07:31 Assessment/Plan Lines/Catheters IV Catheter Type (from Rust): Central Line Central line insert date: Aug 14, 2018 Central line still needed: Yes Blev[place] in Place (from Nrs): No Assessment/Plan Chief Complaint/Hosp Course 08/15/18 Pt is s/p major abdominal surgery ( adenocarcinoma of ascending colon and large infiltrating splenic flexure GIST w/ invasion into proximal jejunum) requiring 2 anastomoses ( ileo-sigmoid, and duodenal-jejunal anastomosis). Other findings at the time of surgery include mild to moderate ascites, and fine, nodularity of the liver - cirrhosis?-, and inflammation extending from the transverse colon mesentary to the pancreas, which felt firm). Decision to have the next dialysis as per nephrology. 08/16/18 Pt is on O2 ( 2 l/min) , and on Levophed. He is due to have dialysis this am at 0800. Stable but still critical 08/19/18 Pt is w/o nausea, tolerating some liquids, and says he is passing some gas.Pt does not move well which was also the case pre-op but persists due to post op pain. 08/20/18 POD #6 doing well. Path shows T3N0 adenocarcinoma, and T4N0 GIST w/ 1 tumor implant 08/22/18 POD #8 Still confused, eats when prompted, not ambulating well Assessment/Plan POD #8 Will check portable KUB and give a single dulcolax supp. Pt is not quite alert enough to aid in his care well Subjective 24 Hr Interval Summary Pt is confused this am, and complains of abdominal soreness ( just rec'd Toradol). Passing some flatus but no stool since Sunday. Requires aid to eat.No fever and VSS Constitutional: flatus Feeding: advancing diet Exam/Review of Systems Vital Signs Vitals Vital Signs Date Temp Pulse Resp B/P (MAP) Pulse Ox O2 O2 Flow FiO2 Time Delivery Rate 08/22/18 97.5 102 18 100/58 95 02:00 (72) 08/21/18 Nasal 2.0 21:00 Cannula Intake and Output 08/21/18 08/21/18 08/22/18 1515:00 23:00 07:00 IntakeIntake Total 600 ml 120 ml 120 ml OutputOutput Total 1600 ml BalanceBalance -1000 ml 120 ml 120 ml Exam Constitutional: oriented (O x 2) Psych: confusion Cardiovascular: regular rate and rhythm Gastrointestinal: distended (slight. No erythema or induration. DC 'ed clips. A small amount of serous drainage at inf aspect of midline wound) Results Result Diagram: 08/22/18 0432 08/22/18 0432 GONZÁLEZ MERIDA MD Aug 22, 2018 07:37
[2018-08-22] MEDS: APIXABAN 5 MG TABLET PO SCH ×2 (08:46→20:31)
[2018-08-22] MEDS: FOLIC ACID 1 MG TAB PO SCH (08:46)
[2018-08-22] MEDS: FAMOTIDINE 20 MG TAB PO SCH (08:46)
[2018-08-22] MEDS: DOCUSATE SODIUM 100 MG CAP PO SCH (08:46)
[2018-08-22] MEDS: CHOLECALCIFEROL 1,000 UNIT TAB PO SCH (08:46)
[2018-08-22] MEDS: BALSAM PERU/CASTOR OIL 60 GM TUBE TOP SCH ×2 (08:47→21:17)
[2018-08-22] MEDS: INSULIN ASPART [NOVOLOG] 3 ML PEN SC SCH ×4 (08:49→20:33)
[2018-08-22] MEDS: INSULIN GLARGINE [LANTus] (100 UNITS/ML) SYG SC SCH (08:50)
[2018-08-22] MEDS: SEVELAMER CARBONATE 0.8 GM PKT PO SCH ×3 (08:50→18:04)
--- NOTE | 2018-08-22 10:12 | CONS ---
Assessment/Plan Assessment/Plan Assessment/Plan (Daily) 1 End-stage renal disease, on hemodialysis, mwf with mild CHF MWF 2. 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 Hypotension. On Midodrine at home 4. History of congestive heart failure.1 End-stage renal disease, on hemodialysis,mwf with mild CHF 5. Hypercholesterolemia. 6. Hx of total hip replacement. 7. leucocytosis, off pressor and trending down leukocytosis 8. Hypoglycemia. 9. Macrocytic hypochromic Anemia mixed etiology, recent blood loss and 2/2 kidney disease 10. 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 Sometimes intermittently confused Exam/Review of Systems Exam Vitals Vital Signs Date Temp Pulse Resp B/P (MAP) Pulse Ox O2 O2 Flow FiO2 Time Delivery Rate 08/22/18 97.6 102 18 107/56 97 07:28 (73) 08/21/18 Nasal 2.0 21:00 Cannula Intake and Output 08/21/18 08/21/18 08/22/18 1515:00 23:00 07:00 IntakeIntake Total 600 ml 120 ml 120 ml OutputOutput Total 1600 ml BalanceBalance -1000 ml 120 ml 120 ml Exam ead: normocephalic Eyes: nl conjunctiva Neck: supple Respiratory: clear to auscultation Cardiovascular: regular rate and rhythm, other (paced 100 %) Gastrointestinal: soft, nl liver, spleen, TTP rt femoral permacath Results Results Result Diagram: 08/22/18 0432 08/22/18 0432 Results 24hrs Laboratory Tests Test 08/21/18 11:18 08/21/18 15:02 08/21/18 17:49 08/21/18 22:29 Bedside Glucose 112 144 150 190 Test 08/22/18 02:01 08/22/18 04:32 08/22/18 08:43 Bedside Glucose 282 H 222 H White Blood Count 12.8 H Red Blood Count 3.24 L Hemoglobin 9.7 L Hematocrit 31.0 L Mean Corpuscular Volume 95.7 Mean Corpuscular 29.9 Hemoglobin Mean Corpuscular 31.3 L Hemoglobin Concent Red Cell Distribution 15.9 H Width Platelet Count 98 L Mean Platelet Volume 12.2 H Immature Granulocytes % 0.500 H Neutrophils % 89.1 H Lymphocytes % 3.4 L Monocytes % 4.8 Eosinophils % 2.0 Basophils % 0.2 Nucleated Red Blood 0.0 Cells % Immature Granulocytes # 0.060 H Neutrophils # 11.4 H Lymphocytes # 0.4 L Monocytes # 0.6 Eosinophils # 0.3 Basophils # 0.0 Nucleated Red Blood 0.0 Cells # Sodium Level 134 L Potassium Level 4.1 Chloride Level 100 Carbon Dioxide Level 25 Anion Gap 9 Blood Urea Nitrogen 26 H Creatinine 4.12 H Glucose Level 249 H Calcium Level 8.3 L Phosphorus Level 3.0 Magnesium Level 1.9 Albumin 2.4 L Medications Medication Current Medications Ondansetron HCl (Zofran Inj) 4 mg Q6H PRN IV NAUSEA/VOMITING Last administered on 08/19/18at 12:55; Admin Dose 4 MG; Start 08/02/18 at 13:00 Diagnostic Test (Pha) (Accu-Chek) 1 ea 02 XX Last administered on 08/22/18at 02:08; Admin Dose 1 EA; Start 08/03/18 at 02:00 Insulin Aspart (Novolog Insulin Pen) NOVOLOG *MILD* ALGORITHM WITH MEALS BEDTIME SC Last administered on 08/22/18at 08:49; Admin Dose 3 UNIT; Start 08/02/18 at 18:00 Glucose (Glutose) 15 gm Q15M PRN PO DECREASED GLUCOSE; Start 08/02/18 at 13:30 Glucose (Glutose) 22.5 gm Q15M PRN PO DECREASED GLUCOSE; Start 08/02/18 at 13:30 Dextrose (D50w Syringe) 25 ml Q15M PRN IV DECREASED GLUCOSE Last administered on 08/19/18 02:02; Admin Dose 25 ML; Start 08/02/18 at 13:30 Dextrose (D50w Syringe) 50 ml Q15M PRN IV DECREASED GLUCOSE; Start 08/02/18 at 13:30 Glucagon (Glucagen) 1 mg Q15M PRN IM DECREASED GLUCOSE; Start 08/02/18 at 13:30 Glucose (Glutose) 15 gm Q15M PRN BUCCAL DECREASED GLUCOSE; Start 08/02/18 at 13:30 Cholecalciferol (Vitamin D) 1,000 unit DAILY PO Last administered on 08/22/18 08:46; Admin Dose 1,000 UNIT; Start 08/03/18 at 09:00 Folic Acid (Folic Acid) 1 mg DAILY PO Last administered on 08/22/18 08:46; Admin Dose 1 MG; Start 08/03/18 at 09:00 Sevelamer Carbonate (Renvela) 0.8 gm AC MEALS PO Last administered on 08/22/18 08:50; Admin Dose 0.8 GM; Start 08/02/18 at 17:30 Midodrine (Proamatine) 5 mg ON DIALYSIS DAYS PO Last administered on 08/21/18 07:02; Admin Dose 5 MG; Start 08/02/18 at 18:00 Albumin Human 100 ml @ 100 mls/hr WITH DIALYSIS PRN IV SBP <90 DURING DIALYSIS Last administered on 08/21/18 09:30; Admin Dose 100 MLS/HR; Start 08/07/18 at 10:00 Gabapentin (Neurontin) 100 mg DAILY PO Last administered on 08/13/18 09:07; Admin Dose 100 MG; Start 08/07/18 at 11:30; Status Hold Phenol (Cepastat Lozenge) 1 lozenge Q1H PRN MT COUGH Last administered on 08/08/18 02:34; Admin Dose 1 LOZENGE; Start 08/07/18 at 23:00 Heparin Sodium (Porcine) (Heparin (1000 Units/ml)) 6,100 unit AFTER DIALYSIS CATHETER Last administered on 08/21/18 10:19; Admin Dose 6,100 UNIT; Start 08/16/18 at 22:30 Acetaminophen (Tylenol Tab) 650 mg Q6H PRN PO MILD PAIN(1-3)OR ELEVATED TEMP Last administered on 08/18/18 05:59; Admin Dose 650 MG; Start 08/18/18 at 05:30 Levothyroxine Sodium (Synthroid) 50 mcg DAILY@06 PO Last administered on 08/22/18 05:42; Admin Dose 50 MCG; Start 08/20/18 at 06:00 Insulin Glargine (Lantus) 12 units DAILY@0800 SC Last administered on 08/22/18 08:50; Admin Dose 12 UNITS; Start 08/20/18 at 08:00 Ketorolac Tromethamine (Toradol) 15 mg Q6H PRN IV PAIN Last administered on 08/22/18 07:01; Admin Dose 15 MG; Start 08/19/18 at 13:00; Stop 08/22/18 at 12:59 Docusate Sodium (Colace) 100 mg DAILY PO Last administered on 08/22/18 08:46; Admin Dose 100 MG; Start 08/20/18 at 09:00 Acetaminophen/ Hydrocodone Bitart ([place] (5/325)) 1 tab Q4H PRN GTB MODERATE PAIN LEVEL 4-6 Last administered on 08/21/18 22:26; Admin Dose 1 TAB; Start 08/20/18 at 07:30 Famotidine (Pepcid) 20 mg DAILY PO Last administered on 08/22/18 08:46; Admin Dose 20 MG; Start 08/21/18 at 09:00 Morphine Sulfate (morphine) 1 mg Q4H PRN IV SEVERE PAIN LEVEL 7-10 Last administered on 08/22/18 07:56; Admin Dose 1 MG; Start 08/20/18 at 23:45 Apixaban (Eliquis) 2.5 mg BID PO Last administered on 08/22/18 08:46; Admin Dose 2.5 MG; Start 08/21/18 at 09:30 NNEKA FRITZ MD Aug 22, 2018 10:12
--- NOTE | 2018-08-22 13:51 | CONS ---
Assessment/Plan Assessment/Plan Hospital Course (Demo Recall) #Adenocarcinoma of ascending Colon ca -final pathology report reveals 2 separate masses with different pathology results. -the ascending colon mass is consistent with a Moderately-differentiated adenocarcinoma, invading through the muscularis propria, with all 0/18 negative for disease, 3.6 x 2.8 x 1.1 cm. -the splenic flexture mass is 10.5 x 9.0 x 7.0 cm.and consistent with a high grade GIST tumor -CT does not reveal evidence of distant mets -in terms of the adenocarcinoma, pt does not need adjuvant chemotherapy given this was a stage IIA tumor. 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 However we need to see if he is positive for KIT exon 9 mutation which may need higher doses of imatinib (eg 800mg q day vs 400mg q day) -Regardless, given he does have the KIT mutation he would He would however benefit adjuvant Gleevec for at least 36 mo #s/p Surgical resection -continue to ambulate and advance diet as tolerated -management per surgery #ESRD -continue HD per renal #Diabetes - A1c noted - Continue Lantus and ISS #Hypothyroidism - Continue Synthroid #Nonischemic CM - pacer in place - nonchronic Thank you for the opportunity to participate in this patients care A total of 40 minutes of face to face time was spent speaking with the patient, of which greater than 50% was spent in counseling and coordination of care and the detailed question and answer session. Consultation Date/Type/Reason Admit Date/Time Aug 02, 2018 at 10:57 Initial Consult Date 08/09/18 Type of Consult oncology Reason for Consultation adenocarcinoma of colon and GIST Requesting Provider: DULCE GALINDO Date/Time of Note DATE: 08/22/18 TIME: 13:50 24 HR Interval Summary Free Text/Dictation pt continues to be lethargic. eats when prompted and not ambulating. continues on HD Exam/Review of Systems Exam Vitals Vital Signs Date Temp Pulse Resp B/P (MAP) Pulse Ox O2 O2 Flow FiO2 Time Delivery Rate 08/22/18 97.6 102 18 107/56 97 07:28 (73) 08/21/18 Nasal 2.0 21:00 Cannula Intake and Output 08/21/18 08/21/18 08/22/18 1515:00 23:00 07:00 IntakeIntake Total 600 ml 120 ml 120 ml OutputOutput Total 1600 ml BalanceBalance -1000 ml 120 ml 120 ml Constitutional: alert, oriented, frail Psych: no complaints, anxiety, confusion, depression Head: normocephalic Eyes: nl conjunctiva ENMT: nl external ears & nose Neck: supple Respiratory: diminished breath sounds Cardiovascular: regular rate and rhythm Gastrointestinal: surgical scars, tender Musculoskeletal: nl extremities to inspection Results Result Diagram: 08/22/18 0432 08/22/18 0432 Results 24hrs Laboratory Tests Test 08/21/18 15:02 08/21/18 17:49 08/21/18 22:29 08/22/18 02:01 Bedside Glucose 144 150 190 282 H Test 08/22/18 04:32 08/22/18 08:43 08/22/18 12:59 White Blood Count 12.8 H Red Blood Count 3.24 L Hemoglobin 9.7 L Hematocrit 31.0 L Mean Corpuscular Volume 95.7 Mean Corpuscular 29.9 Hemoglobin Mean Corpuscular 31.3 L Hemoglobin Concent Red Cell Distribution 15.9 H Width Platelet Count 98 L Mean Platelet Volume 12.2 H Immature Granulocytes % 0.500 H Neutrophils % 89.1 H Lymphocytes % 3.4 L Monocytes % 4.8 Eosinophils % 2.0 Basophils % 0.2 Nucleated Red Blood 0.0 Cells % Immature Granulocytes # 0.060 H Neutrophils # 11.4 H Lymphocytes # 0.4 L Monocytes # 0.6 Eosinophils # 0.3 Basophils # 0.0 Nucleated Red Blood 0.0 Cells # Sodium Level 134 L Potassium Level 4.1 Chloride Level 100 Carbon Dioxide Level 25 Anion Gap 9 Blood Urea Nitrogen 26 H Creatinine 4.12 H Glucose Level 249 H Calcium Level 8.3 L Phosphorus Level 3.0 Magnesium Level 1.9 Albumin 2.4 L Bedside Glucose 222 H 216 Medications Medication Current Medications Ondansetron HCl (Zofran Inj) 4 mg Q6H PRN IV NAUSEA/VOMITING Last administered on 08/19/18at 12:55; Admin Dose 4 MG; Start 08/02/18 at 13:00 Diagnostic Test (Pha) (Accu-Chek) 1 ea 02 XX Last administered on 08/22/18at 02:08; Admin Dose 1 EA; Start 08/03/18 at 02:00 Insulin Aspart (Novolog Insulin Pen) NOVOLOG *MILD* ALGORITHM WITH MEALS B EDTIME SC Last administered on 08/22/18 13:01; Admin Dose 2 UNIT; Start 08/02/18 at 18:00 Glucose (Glutose) 15 gm Q15M PRN PO DECREASED GLUCOSE; Start 08/02/18 at 13:30 Glucose (Glutose) 22.5 gm Q15M PRN PO DECREASED GLUCOSE; Start 08/02/18 at 13:30 Dextrose (D50w Syringe) 25 ml Q15M PRN IV DECREASED GLUCOSE Last administered on 08/19/18 02:02; Admin Dose 25 ML; Start 08/02/18 at 13:30 Dextrose (D50w Syringe) 50 ml Q15M PRN IV DECREASED GLUCOSE; Start 08/02/18 at 13:30 Glucagon (Glucagen) 1 mg Q15M PRN IM DECREASED GLUCOSE; Start 08/02/18 at 13:30 Glucose (Glutose) 15 gm Q15M PRN BUCCAL DECREASED GLUCOSE; Start 08/02/18 at 13:30 Cholecalciferol (Vitamin D) 1,000 unit DAILY PO Last administered on 08/22/18 08:46; Admin Dose 1,000 UNIT; Start 08/03/18 at 09:00 Folic Acid (Folic Acid) 1 mg DAILY PO Last administered on 08/22/18 08:46; Admin Dose 1 MG; Start 08/03/18 at 09:00 Sevelamer Carbonate (Renvela) 0.8 gm AC MEALS PO Last administered on 08/22/18 13:05; Admin Dose 0.8 GM; Start 08/02/18 at 17:30 Midodrine (Proamatine) 5 mg ON DIALYSIS DAYS PO Last administered on 08/21/18 07:02; Admin Dose 5 MG; Start 08/02/18 at 18:00 Albumin Human 100 ml @ 100 mls/hr WITH DIALYSIS PRN IV SBP <90 DURING DIALYSIS Last administered on 08/21/18 09:30; Admin Dose 100 MLS/HR; Start 08/07/18 at 10:00 Gabapentin (Neurontin) 100 mg DAILY PO Last administered on 08/13/18 09:07; Admin Dose 100 MG; Start 08/07/18 at 11:30; Status Hold Phenol (Cepastat Lozenge) 1 lozenge Q1H PRN MT COUGH Last administered on 08/08/18 02:34; Admin Dose 1 LOZENGE; Start 08/07/18 at 23:00 Heparin Sodium (Porcine) (Heparin (1000 Units/ml)) 6,100 unit AFTER DIALYSIS CATHETER Last administered on 08/21/18 10:19; Admin Dose 6,100 UNIT; Start 08/16/18 at 22:30 Acetaminophen (Tylenol Tab) 650 mg Q6H PRN PO MILD PAIN(1-3)OR ELEVATED TEMP Last administered on 08/18/18 05:59; Admin Dose 650 MG; Start 08/18/18 at 05:30 Levothyroxine Sodium (Synthroid) 50 mcg DAILY@06 PO Last administered on 08/22/18 05:42; Admin Dose 50 MCG; Start 08/20/18 at 06:00 Insulin Glargine (Lantus) 12 units DAILY@0800 SC Last administered on 08/22/18 08:50; Admin Dose 12 UNITS; Start 08/20/18 at 08:00 Docusate Sodium (Colace) 100 mg DAILY PO Last administered on 08/22/18 08:46; Admin Dose 100 MG; Start 08/20/18 at 09:00 Acetaminophen/ Hydrocodone Bitart ([place] (5/325)) 1 tab Q4H PRN GTB MODERATE PAIN LEVEL 4-6 Last administered on 08/21/18 22:26; Admin Dose 1 TAB; Start 08/20/18 at 07:30 Famotidine (Pepcid) 20 mg DAILY PO Last administered on 08/22/18 08:46; Admin Dose 20 MG; Start 08/21/18 at 09:00 Morphine Sulfate (morphine) 1 mg Q4H PRN IV SEVERE PAIN LEVEL 7-10 Last administered on 08/22/18 07:56; Admin Dose 1 MG; Start 08/20/18 at 23:45 Apixaban (Eliquis) 2.5 mg BID PO Last administered on 08/22/18 08:46; Admin Dose 2.5 MG; Start 08/21/18 at 09:30 JAGUAR CARTWRIGHT M.D. Aug 22, 2018 13:51
[2018-08-22 14:24] VITALS: BP 93/59; PULSE 111; RESP 18
--- NOTE | 2018-08-22 14:48 | PN ---
Date/Time of Note Date/Time of Note DATE: 08/22/18 TIME: 14:45 Assessment/Plan VTE Prophylaxis Risk score (from Nsg)>0 risk: 15 SCD applied (from Nsg): Yes Pharmacological prophylaxis: apixaban Lines/Catheters IV Catheter Type (from Nrsg): AILEEN CATH Urinary Cath still in place: No Assessment/Plan Assessment/Plan 1. Colonic mass at the splenic flexure and ascending colon s/p subtotal colectomy and small bowel resection on 08/14/18 - Patient still with diminished appetite and needs to be coached to eat per nursing - Dr. Meneses on board and appreciate consultation. KUB ordered this am without any signs of obstructions - GI on board and appreciate recommendations. 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 Will need 36 months of adjuvant therapy for GIST tumor but no further intervention for adenocarcinoma - Cardiology consultation appreciated 2. End-stage renal disease on HD - Nephrology on board for HD management and appreciate recommendations - clogged fistula catheter (HeRO), consulted Dr. Coelho for recs as he is patient's vascular surgeon, recommended Aileen for now until we can fully anticoagulate. Follow as outpatient. On Eliquis and tolerating 3. GI bleed 2/2 to above mass - resolved 4. Arm swelling - Ultrasound showed right brachial DVT as well as thrombosis of the left cephalic vein. Patient's midline on his right arm is the likely culprit for the DVT on his right brachial vein. - dialysis catheter in left arm clotted for now, no Cathflo due to recent surgery per vascular surgery - monitor, warm compresses. - Patient is likely an hypercoagulable state due to his carcinoma and started on Eliquis 5. Diabetes - A1c noted - counseled about importance of diet choices and glucose control - Continue Lantus and ISS 6. Esophagitis - Continue PPI 7. Hypothyroidism - Continue home Synthroid 8. Persistent cough - improvement with Gabapentin 9. Nonischemic CM - pacer in place - Chronic per outpatient 3D Animator 10. Mild acute on chronic systolic HF - fluid removal during HD 11. Disposition - PT for discharge planning Result Diagram: 08/22/18 0432 08/22/18 0432 Results 24hrs Laboratory Tests Test 08/21/18 15:02 08/21/18 17:49 08/21/18 22:29 08/22/18 02:01 Bedside Glucose 144 150 190 282 H Test 08/22/18 04:32 08/22/18 08:43 08/22/18 12:59 White Blood Count 12.8 H Red Blood Count 3.24 L Hemoglobin 9.7 L Hematocrit 31.0 L Mean Corpuscular Volume 95.7 Mean Corpuscular 29.9 Hemoglobin Mean Corpuscular 31.3 L Hemoglobin Concent Red Cell Distribution 15.9 H Width Platelet Count 98 L Mean Platelet Volume 12.2 H Immature Granulocytes % 0.500 H Neutrophils % 89.1 H Lymphocytes % 3.4 L Monocytes % 4.8 Eosinophils % 2.0 Basophils % 0.2 Nucleated Red Blood 0.0 Cells % Immature Granulocytes # 0.060 H Neutrophils # 11.4 H Lymphocytes # 0.4 L Monocytes # 0.6 Eosinophils # 0.3 Basophils # 0.0 Nucleated Red Blood 0.0 Cells # Sodium Level 134 L Potassium Level 4.1 Chloride Level 100 Carbon Dioxide Level 25 Anion Gap 9 Blood Urea Nitrogen 26 H Creatinine 4.12 H Glucose Level 249 H Calcium Level 8.3 L Phosphorus Level 3.0 Magnesium Level 1.9 Albumin 2.4 L Bedside Glucose 222 H 216 Subjective 24 Hr Interval Summary Free Text/Dictation Patient still remains weak with little appetite. No acute overnight events. Exam/Review of Systems Exam Vitals Vital Signs Date Temp Pulse Resp B/P (MAP) Pulse Ox O2 O2 Flow FiO2 Time Delivery Rate 08/22/18 98.9 111 18 93/59 (70) 99 14:24 08/22/18 Nasal 2.0 08:30 Cannula Intake and Output 08/21/18 08/21/18 08/22/18 1515:00 23:00 07:00 IntakeIntake Total 600 ml 120 ml 120 ml OutputOutput Total 1600 ml BalanceBalance -1000 ml 120 ml 120 ml Exam General: Patient is laying in bed. fatigued. no acute distress Respiratory: Clear to auscultation bilaterally. no wheezing or rhonchi Cardiovascular: regular rate and rhythm, no obvious murmurs Gastrointestinal: soft, mildly tender to palpation along surgical incision site. nondistended, no guarding Neurological: Moves all extremities spontaneously Skin: abdominal midline incision,will intact, incision site clean and dry without any discharge appreciated. Results Results 24hrs Laboratory Tests Test 08/21/18 15:02 08/21/18 17:49 08/21/18 22:29 08/22/18 02:01 Bedside Glucose 144 150 190 282 H Test 08/22/18 04:32 08/22/18 08:43 08/22/18 12:59 White Blood Count 12.8 H Red Blood Count 3.24 L Hemoglobin 9.7 L Hematocrit 31.0 L Mean Corpuscular Volume 95.7 Mean Corpuscular 29.9 Hemoglobin Mean Corpuscular 31.3 L Hemoglobin Concent Red Cell Distribution 15.9 H Width Platelet Count 98 L Mean Platelet Volume 12.2 H Immature Granulocytes % 0.500 H Neutrophils % 89.1 H Lymphocytes % 3.4 L Monocytes % 4.8 Eosinophils % 2.0 Basophils % 0.2 Nucleated Red Blood 0.0 Cells % Immature Granulocytes # 0.060 H Neutrophils # 11.4 H Lymphocytes # 0.4 L Monocytes # 0.6 Eosinophils # 0.3 Basophils # 0.0 Nucleated Red Blood 0.0 Cells # Sodium Level 134 L Potassium Level 4.1 Chloride Level 100 Carbon Dioxide Level 25 Anion Gap 9 Blood Urea Nitrogen 26 H Creatinine 4.12 H Glucose Level 249 H Calcium Level 8.3 L Phosphorus Level 3.0 Magnesium Level 1.9 Albumin 2.4 L Bedside Glucose 222 H 216 Medications Medication Current Medications Ondansetron HCl (Zofran Inj) 4 mg Q6H PRN IV NAUSEA/VOMITING Last administered on 08/19/18at 12:55; Admin Dose 4 MG; Start 08/02/18 at 13:00 Diagnostic Test (Pha) (Accu-Chek) 1 ea 02 XX Last administered on 08/22/18at 02:08; Admin Dose 1 EA; Start 08/03/18 at 02:00 Insulin Aspart (Novolog Insulin Pen) NOVOLOG *MILD* ALGORITHM WITH MEALS BEDTIME SC Last administered on 08/22/18at 13:01; Admin Dose 2 UNIT; Start 08/02/18 at 18:00 Glucose (Glutose) 15 gm Q15M PRN PO DECREASED GLUCOSE; Start 08/02/18 at 13:30 Glucose (Glutose) 22.5 gm Q15M PRN PO DECREASED GLUCOSE; Start 08/02/18 at 13:30 Dextrose (D50w Syringe) 25 ml Q15M PRN IV DECREASED GLUCOSE Last administered on 08/19/18 02:02; Admin Dose 25 ML; Start 08/02/18 at 13:30 Dextrose (D50w Syringe) 50 ml Q15M PRN IV DECREASED GLUCOSE; Start 08/02/18 at 13:30 Glucagon (Glucagen) 1 mg Q15M PRN IM DECREASED GLUCOSE; Start 08/02/18 at 13:30 Glucose (Glutose) 15 gm Q15M PRN BUCCAL DECREASED GLUCOSE; Start 08/02/18 at 13:30 Cholecalciferol (Vitamin D) 1,000 unit DAILY PO Last administered on 08/22/18 08:46; Admin Dose 1,000 UNIT; Start 08/03/18 at 09:00 Folic Acid (Folic Acid) 1 mg DAILY PO Last administered on 08/22/18 08:46; Admin Dose 1 MG; Start 08/03/18 at 09:00 Sevelamer Carbonate (Renvela) 0.8 gm AC MEALS PO Last administered on 08/22/18 13:05; Admin Dose 0.8 GM; Start 08/02/18 at 17:30 Midodrine (Proamatine) 5 mg ON DIALYSIS DAYS PO Last administered on 08/21/18 07:02; Admin Dose 5 MG; Start 08/02/18 at 18:00 Albumin Human 100 ml @ 100 mls/hr WITH DIALYSIS PRN IV SBP <90 DURING DIALYSIS Last administered on 08/21/18 09:30; Admin Dose 100 MLS/HR; Start 08/07/18 at 10:00 Gabapentin (Neurontin) 100 mg DAILY PO Last administered on 08/13/18 09:07; Admin Dose 100 MG; Start 08/07/18 at 11:30; Status Hold Phenol (Cepastat Lozenge) 1 lozenge Q1H PRN MT COUGH Last administered on 08/08/18 02:34; Admin Dose 1 LOZENGE; Start 08/07/18 at 23:00 Heparin Sodium (Porcine) (Heparin (1000 Units/ml)) 6,100 unit AFTER DIALYSIS CATHETER Last administered on 08/21/18 10:19; Admin Dose 6,100 UNIT; Start 08/16/18 at 22:30 Acetaminophen (Tylenol Tab) 650 mg Q6H PRN PO MILD PAIN(1-3)OR ELEVATED TEMP Last administered on 08/18/18 05:59; Admin Dose 650 MG; Start 08/18/18 at 05:30 Levothyroxine Sodium (Synthroid) 50 mcg DAILY@06 PO Last administered on 08/22/18 05:42; Admin Dose 50 MCG; Start 08/20/18 at 06:00 Insulin Glargine (Lantus) 12 units DAILY@0800 SC Last administered on 08/22/18 08:50; Admin Dose 12 UNITS; Start 08/20/18 at 08:00 Docusate Sodium (Colace) 100 mg DAILY PO Last administered on 08/22/18 08:46; Admin Dose 100 MG; Start 08/20/18 at 09:00 Acetaminophen/ Hydrocodone Bitart ([place] (5/325)) 1 tab Q4H PRN GTB MODERATE PAIN LEVEL 4-6 Last administered on 08/21/18 22:26; Admin Dose 1 TAB; Start 08/20/18 at 07:30 Famotidine (Pepcid) 20 mg DAILY PO Last administered on 08/22/18 08:46; Admin Dose 20 MG; Start 08/21/18 at 09:00 Morphine Sulfate (morphine) 1 mg Q4H PRN IV SEVERE PAIN LEVEL 7-10 Last administered on 08/22/18 07:56; Admin Dose 1 MG; Start 08/20/18 at 23:45 Apixaban (Eliquis) 2.5 mg BID PO Last administered on 08/22/18 08:46; Admin Dose 2.5 MG; Start 08/21/18 at 09:30 JO HURST MD Aug 22, 2018 14:47
[2018-08-22 19:40] VITALS: BP 91/52; PULSE 113; RESP 20
[2018-08-22] MEDS: HYDROCODONE/APAP (5/325) TAB GTB PRN (22:58)
[2018-08-23] VITALS (18 sets, daily range): BP systolic 92–112; BP diastolic 53–65; PULSE 93–106; RESP 18–20
[2018-08-23] MEDS: ACCU-CHEK XX SCH ×2 (02:00→21:00)
[2018-08-23] MEDS: LEVOTHYROXINE 50 MCG TAB PO SCH (06:00)
--- NOTE | 2018-08-23 07:55 | PN ---
Date/Time of Note Date/Time of Note DATE: 08/23/18 TIME: 07:48 Assessment/Plan Lines/Catheters IV Catheter Type (from Nrs): Central Line Central line still needed: Yes Blevins in Place (from Nrs): No Assessment/Plan Chief Complaint/Hosp Course 08/15/18 Pt is s/p major abdominal surgery ( adenocarcinoma of ascending colon and large infiltrating splenic flexure GIST w/ invasion into proximal jejunum) requiring 2 anastomoses ( ileo-sigmoid, and duodenal-jejunal anastomosis). Other findings at the time of surgery include mild to moderate ascites, and fine, nodularity of the liver - cirrhosis?-, and inflammation extending from the transverse colon mesentary to the pancreas, which felt firm). Decision to have the next dialysis as per nephrology. 08/16/18 Pt is on O2 ( 2 l/min) , and on Levophed. He is due to have dialysis this am at 0800. Stable but still critical 08/19/18 Pt is w/o nausea, tolerating some liquids, and says he is passing some gas.Pt does not move well which was also the case pre-op but persists due to post op pain. 08/20/18 POD #6 doing well. Path shows T3N0 adenocarcinoma, and T4N0 GIST w/ 1 tumor implant 08/22/18 POD #8 Still confused, eats when prompted, not ambulating well 08/23/18 POD #9 Pt has an entero-cutaneous fistula. WBC is sl elevated from yesterday Assessment/Plan 1. 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 Poor nutrition ( albumin is 2.0) 3. I opened up the wound and placed an ostomy appliance myself. I also evacuated over 250 cc of stool 4. Wound/ostomy nurse consult for appliance/ treatment 5. NPO except for meds. Pt will need TPN 6. Discuss w/ Dr Harris Subjective 24 Hr Interval Summary Pt is uncomfortable and has poor appetite. Last night began draining feculent liquid from inf margin of wound. No fever or instability noted. Pt has generalized abdominal discomfort but no peritoneal signs Feeding: NPO Pain Control: mild Exam/Review of Systems Vital Signs Vitals Vital Signs Date Temp Pulse Resp B/P (MAP) Pulse Ox O2 O2 Flow FiO2 Time Delivery Rate 08/23/18 98.3 100 18 98/54 (69) 94 02:13 08/22/18 Nasal 2.0 08:30 Cannula Intake and Output 08/22/18 08/22/18 08/23/18 1515:00 23:00 07:00 IntakeIntake Total 200 ml BalanceBalance 200 ml Exam Constitutional: alert, oriented (x2, only) Gastrointestinal: soft, bowel sounds, tender (Pt's abdominal exam reveals a much softer abdomen w/ less tenderness than yesterday) Results Result Diagram: 08/23/18 0515 08/23/18 0515 GONZÁLEZ MERIDA MD Aug 23, 2018 07:55
[2018-08-23] MEDS: SEVELAMER CARBONATE 0.8 GM PKT PO SCH ×3 (08:30→17:25)
[2018-08-23] MEDS: FAMOTIDINE 20 MG TAB PO SCH (08:40)
[2018-08-23] MEDS: CHOLECALCIFEROL 1,000 UNIT TAB PO SCH (08:40)
[2018-08-23] MEDS: FOLIC ACID 1 MG TAB PO SCH (08:40)
[2018-08-23] MEDS: DOCUSATE SODIUM 100 MG CAP PO SCH (08:41)
[2018-08-23] MEDS: APIXABAN 5 MG TABLET PO SCH ×2 (08:41→20:09)
[2018-08-23] MEDS: BALSAM PERU/CASTOR OIL 60 GM TUBE TOP SCH ×2 (08:49→20:13)
--- NOTE | 2018-08-23 08:59 | PN ---
Date/Time of Note Date/Time of Note DATE: 08/23/18 TIME: 08:59 Assessment/Plan VTE Prophylaxis Risk score (from Nsg)>0 risk: 17 SCD applied (from Nsg): Yes Pharmacological prophylaxis: apixaban Lines/Catheters IV Catheter Type (from Nrsg): Central Line Central line still needed: Yes Urinary Cath still in place: No Assessment/Plan Assessment/Plan 1. Colonic mass at the splenic flexure and ascending colon s/p subtotal colectomy and small bowel resection on 08/14/18 - Patient noted with fistula at margin of wound and ostomy bag placed in the meantime. Dr. Meneses recommending to keep NPO and start TPN. Discussed with Nephrology and okay to proceed with TPN. - Dr. Meneses on board and appreciate consultation - GI on board and appreciate recommendations. 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 Will need 36 months of adjuvant therapy for GIST tumor but no further intervention for adenocarcinoma - Cardiology consultation appreciated 2. End-stage renal disease on HD - Nephrology on board for HD management and appreciate recommendations - clogged fistula catheter (HeRO), consulted Dr. Coelho for recs as he is patient's vascular surgeon, recommended Horacio for now until we can fully anticoagulate. Follow as outpatient. On Eliquis and tolerating 3. GI bleed 2/2 to above mass - resolved 4. Arm swelling - Ultrasound showed right brachial DVT as well as thrombosis of the left cephalic vein. Patient's midline on his right arm is the likely culprit for the DVT on his right brachial vein. - dialysis catheter in left arm clotted for now, no Cathflo due to recent surgery per vascular surgery - monitor, warm compresses. - Patient is likely an hypercoagulable state due to his carcinoma and started on Eliquis 5. Diabetes - A1c noted - counseled about importance of diet choices and glucose control - Continue Lantus and ISS 6. Esophagitis - Continue PPI 7. Hypothyroidism - Continue home Synthroid 8. Persistent cough - resolved 9. Nonischemic CM - pacer in place - Chronic per outpatient Medical Parasitologist 10. Mild acute on chronic systolic HF - fluid removal during HD 11. Disposition - Dietary consultation for PPN given NPO status Result Diagram: 08/23/18 0515 08/23/18 0515 Results 24hrs Laboratory Tests Test 08/22/18 12:59 08/22/18 17:59 08/22/18 20:29 08/23/18 01:45 Bedside Glucose 216 241 H 223 H 199 Test 08/23/18 05:15 08/23/18 08:43 White Blood Count 14.7 H Red Blood Count 3.23 L Hemoglobin 9.6 L Hematocrit 31.1 L Mean Corpuscular Volume 96.3 Mean Corpuscular 29.7 Hemoglobin Mean Corpuscular 30.9 L Hemoglobin Concent Red Cell Distribution 15.9 H Width Platelet Count 105 L Mean Platelet Volume 12.5 H Immature Granulocytes % 0.800 H Neutrophils % Segmented Neutrophils 35 L % (Manual) Band Neutrophils % 52 H (Manual) Lymphocytes % Lymphocytes % (Manual) 6 L Monocytes % Monocytes % (Manual) 6 Eosinophils % Eosinophils % (Manual) 1 Basophils % Nucleated Red Blood 0.0 Cells % Immature Granulocytes # 0.110 H Neutrophils # Neutrophils # (Manual) 6.3 Band Neutrophils # 7.6 H Lymphocytes (Manual) 0.8 Lymphocytes # Monocytes # Monocytes # (Manual) 0.8 Eosinophils # Basophils # Nucleated Red Blood Cells # Toxic Granulation 1+ Platelet Estimate DECREASED Giant Platelets 1 H Polychromasia 1+ Poikilocytosis 2+ Anisocytosis 2+ Macrocytosis 2+ Sodium Level 136 Potassium Level 5.3 H Chloride Level 100 Carbon Dioxide Level 25 Anion Gap 11 Blood Urea Nitrogen 36 H Creatinine 5.09 H Est Glomerular Filtrat Rate mL/min Glucose Level 203 Calcium Level 8.7 Phosphorus Level 3.9 Magnesium Level 2.0 Albumin 2.0 L Bedside Glucose 193 Subjective 24 Hr Interval Summary Free Text/Dictation Patient getting HD this am and states he has some abdominal discomfort. Patient found with fistula and ostomy bag placed. Patient placed NPO and TPN evaluation after discussion held with nephrology. Exam/Review of Systems Exam Vitals Vital Signs Date Temp Pulse Resp B/P (MAP) Pulse Ox O2 O2 Flow FiO2 Time Delivery Rate 08/23/18 98.1 96 18 93/54 (67) 95 Nasal 08:06 Cannula 08/22/18 2.0 08:30 Intake and Output 08/22/18 08/22/18 08/23/18 1515:00 23:00 07:00 IntakeIntake Total 200 ml BalanceBalance 200 ml Exam General: Patient is laying in bed. fatigued Respiratory: Clear to auscultation bilaterally. no wheezing or rhonchi Cardiovascular: regular rate and rhythm, no obvious murmurs Gastrointestinal: soft, mildly tender to palpation, ostomy bag in place with yellow colored residual stool noted. nondistended, no guarding Neurological: Moves all extremities spontaneously Skin: incision site clean and dry, will removed Results Results 24hrs Laboratory Tests Test 08/22/18 12:59 08/22/18 17:59 08/22/18 20:29 08/23/18 01:45 Bedside Glucose 216 241 H 223 H 199 Test 08/23/18 05:15 08/23/18 08:43 White Blood Count 14.7 H Red Blood Count 3.23 L Hemoglobin 9.6 L Hematocrit 31.1 L Mean Corpuscular Volume 96.3 Mean Corpuscular 29.7 Hemoglobin Mean Corpuscular 30.9 L Hemoglobin Concent Red Cell Distribution 15.9 H Width Platelet Count 105 L Mean Platelet Volume 12.5 H Immature Granulocytes % 0.800 H Neutrophils % Segmented Neutrophils 35 L % (Manual) Band Neutrophils % 52 H (Manual) Lymphocytes % Lymphocytes % (Manual) 6 L Monocytes % Monocytes % (Manual) 6 Eosinophils % Eosinophils % (Manual) 1 Basophils % Nucleated Red Blood 0.0 Cells % Immature Granulocytes # 0.110 H Neutrophils # Neutrophils # (Manual) 6.3 Band Neutrophils # 7.6 H Lymphocytes (Manual) 0.8 Lymphocytes # Monocytes # Monocytes # (Manual) 0.8 Eosinophils # Basophils # Nucleated Red Blood Cells # Toxic Granulation 1+ Platelet Estimate DECREASED Giant Platelets 1 H Polychromasia 1+ Poikilocytosis 2+ Anisocytosis 2+ Macrocytosis 2+ Sodium Level 136 Potassium Level 5.3 H Chloride Level 100 Carbon Dioxide Level 25 Anion Gap 11 Blood Urea Nitrogen 36 H Creatinine 5.09 H Est Glomerular Filtrat Rate mL/min Glucose Level 203 Calcium Level 8.7 Phosphorus Level 3.9 Magnesium Level 2.0 Albumin 2.0 L Bedside Glucose 193 Medications Medication Current Medications Ondansetron HCl (Zofran Inj) 4 mg Q6H PRN IV NAUSEA/VOMITING Last administered on 08/19/18at 12:55; Admin Dose 4 MG; Start 08/02/18 at 13:00 Diagnostic Test (Pha) (Accu-Chek) 1 ea 02 XX Last administered on 08/22/18 02:08; Admin Dose 1 EA; Start 08/03/18 at 02:00 Insulin Aspart (Novolog Insulin Pen) NOVOLOG *MILD* ALGORITHM WITH MEALS BEDTIME SC Last administered on 08/22/18 20:33; Admin Dose 2 UNIT; Start 08/02/18 at 18:00 Glucose (Glutose) 15 gm Q15M PRN PO DECREASED GLUCOSE; Start 08/02/18 at 13:30 Glucose (Glutose) 22.5 gm Q15M PRN PO DECREASED GLUCOSE; Start 08/02/18 at 13:30 Dextrose (D50w Syringe) 25 ml Q15M PRN IV DECREASED GLUCOSE Last administered on 08/19/18 02:02; Admin Dose 25 ML; Start 08/02/18 at 13:30 Dextrose (D50w Syringe) 50 ml Q15M PRN IV DECREASED GLUCOSE; Start 08/02/18 at 13:30 Glucagon (Glucagen) 1 mg Q15M PRN IM DECREASED GLUCOSE; Start 08/02/18 at 13:30 Glucose (Glutose) 15 gm Q15M PRN BUCCAL DECREASED GLUCOSE; Start 08/02/18 at 13:30 Cholecalciferol (Vitamin D) 1,000 unit DAILY PO Last administered on 08/23/18 08:40; Admin Dose 1,000 UNIT; Start 08/03/18 at 09:00 Folic Acid (Folic Acid) 1 mg DAILY PO Last administered on 08/23/18 08:40; Admin Dose 1 MG; Start 08/03/18 at 09:00 Sevelamer Carbonate (Renvela) 0.8 gm AC MEALS PO Last administered on 08/22/18 18:04; Admin Dose 0.8 GM; Start 08/02/18 at 17:30 Midodrine (Proamatine) 5 mg ON DIALYSIS DAYS PO Last administered on 08/21/18 07:02; Admin Dose 5 MG; Start 08/02/18 at 18:00 Albumin Human 100 ml @ 100 mls/hr WITH DIALYSIS PRN IV SBP <90 DURING DIALYSIS Last administered on 08/21/18 09:30; Admin Dose 100 MLS/HR; Start 08/07/18 at 10:00 Gabapentin (Neurontin) 100 mg DAILY PO Last administered on 08/13/18 09:07; Admin Dose 100 MG; Start 08/07/18 at 11:30; Status Hold Phenol (Cepastat Lozenge) 1 lozenge Q1H PRN MT COUGH Last administered on 08/08/18 02:34; Admin Dose 1 LOZENGE; Start 08/07/18 at 23:00 Heparin Sodium (Porcine) (Heparin (1000 Units/ml)) 6,100 unit AFTER DIALYSIS CATHETER Last administered on 08/21/18 10:19; Admin Dose 6,100 UNIT; Start 08/16/18 at 22:30 Acetaminophen (Tylenol Tab) 650 mg Q6H PRN PO MILD PAIN(1-3)OR ELEVATED TEMP Last administered on 08/18/18 05:59; Admin Dose 650 MG; Start 08/18/18 at 05:30 Levothyroxine Sodium (Synthroid) 50 mcg DAILY@06 PO Last administered on 05:42; Admin Dose 50 MCG; Start 08/20/18 at 06:00 Insulin Glargine (Lantus) 12 units DAILY@0800 SC Last administered on 08/22/18 08:50; Admin Dose 12 UNITS; Start 08/20/18 at 08:00 Docusate Sodium (Colace) 100 mg DAILY PO Last administered on 08/22/18 08:46; Admin Dose 100 MG; Start 08/20/18 at 09:00 Acetaminophen/ Hydrocodone Bitart ([place] (5/325)) 1 tab Q4H PRN GTB MODERATE PAIN LEVEL 4-6 Last administered on 08/22/18 22:58; Admin Dose 1 TAB; Start 08/20/18 at 07:30 Famotidine (Pepcid) 20 mg DAILY PO Last administered on 08/23/18 08:40; Admin Dose 20 MG; Start 08/21/18 at 09:00 Morphine Sulfate (morphine) 1 mg Q4H PRN IV SEVERE PAIN LEVEL 7-10 Last administered on 08/22/18 07:56; Admin Dose 1 MG; Start 08/20/18 at 23:45 Apixaban (Eliquis) 2.5 mg BID PO Last administered on 08/23/18 08:41; Admin Dose 2.5 MG; Start 08/21/18 at 09:30 JO HURST MD Aug 23, 2018 08:59
[2018-08-23] MEDS: INSULIN ASPART [NOVOLOG] 3 ML PEN SC SCH ×4 (09:00→21:00)
[2018-08-23] MEDS: INSULIN GLARGINE [LANTus] (100 UNITS/ML) SYG SC SCH (09:02)
[2018-08-23] MEDS: MIDODRINE 5 MG TAB PO SCH (09:33)
[2018-08-23] MEDS: ALBUMIN HUMAN 25% 100 ML IV PRN (10:29)
--- NOTE | 2018-08-23 10:36 | CONS ---
Assessment/Plan Assessment/Plan Hospital Course (Demo Recall) #Adenocarcinoma of ascending Colon ca -final pathology report reveals 2 separate masses with different pathology results. -the ascending colon mass is consistent with a Moderately-differentiated adenocarcinoma, invading through the muscularis propria, with all 0/18 negative for disease, 3.6 x 2.8 x 1.1 cm. -the splenic flexture mass is 10.5 x 9.0 x 7.0 cm.and consistent with a high grade GIST tumor -CT does not reveal evidence of distant mets -in terms of the adenocarcinoma, pt does not need adjuvant chemotherapy given this was a stage IIA tumor. 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 However we need to see if he is positive for KIT exon 9 mutation which may need higher doses of imatinib (eg 800mg q day vs 400mg q day) -Regardless, given he does have the KIT mutation he would He would however benefit adjuvant Gleevec for at least 36 mo #s/p Surgical resection -continue to ambulate and advance diet as tolerated -management per surgery #ESRD -continue HD per renal #Diabetes - A1c noted - Continue Lantus and ISS #Hypothyroidism - Continue Synthroid #Nonischemic CM - pacer in place - nonchronic Thank you for the opportunity to participate in this patients care A total of 40 minutes of face to face time was spent speaking with the patient, of which greater than 50% was spent in counseling and coordination of care and the detailed question and answer session. Consultation Date/Type/Reason Admit Date/Time Aug 02, 2018 at 10:57 Initial Consult Date 08/09/18 Type of Consult oncology Reason for Consultation colon cancer Requesting Provider: DULCE GALINDO Date/Time of Note DATE: 08/23/18 TIME: 10:35 24 HR Interval Summary Free Text/Dictation no acute overnight events. continues on HD. still with poor nutrition Exam/Review of Systems Exam Vitals Vital Signs Date Temp Pulse Resp B/P (MAP) Pulse Ox O2 O2 Flow FiO2 Time Delivery Rate 08/23/18 98.1 96 18 93/54 (67) 95 Nasal 08:06 Cannula 08/22/18 2.0 08:30 Intake and Output 08/22/18 08/22/18 08/23/18 1515:00 23:00 07:00 IntakeIntake Total 200 ml BalanceBalance 200 ml Constitutional: alert, oriented Psych: anxiety, confusion, depression Head: normocephalic Eyes: nl conjunctiva ENMT: nl external ears & nose Neck: supple Respiratory: clear to auscultation Cardiovascular: regular rate and rhythm Gastrointestinal: soft Musculoskeletal: nl extremities to inspection Results Result Diagram: 08/23/18 0515 08/23/18 0515 Results 24hrs Laboratory Tests Test 08/22/18 12:59 08/22/18 17:59 08/22/18 20:29 08/23/18 01:45 Bedside Glucose 216 241 H 223 H 199 Test 08/23/18 05:15 08/23/18 08:43 White Blood Count 14.7 H Red Blood Count 3.23 L Hemoglobin 9.6 L Hematocrit 31.1 L Mean Corpuscular Volume 96.3 Mean Corpuscular 29.7 Hemoglobin Mean Corpuscular 30.9 L Hemoglobin Concent Red Cell Distribution 15.9 H Width Platelet Count 105 L Mean Platelet Volume 12.5 H Immature Granulocytes % 0.800 H Neutrophils % Segmented Neutrophils 35 L % (Manual) Band Neutrophils % 52 H (Manual) Lymphocytes % Lymphocytes % (Manual) 6 L Monocytes % Monocytes % (Manual) 6 Eosinophils % Eosinophils % (Manual) 1 Basophils % Nucleated Red Blood 0.0 Cells % Immature Granulocytes # 0.110 H Neutrophils # Neutrophils # (Manual) 6.3 Band Neutrophils # 7.6 H Lymphocytes (Manual) 0.8 Lymphocytes # Monocytes # Monocytes # (Manual) 0.8 Eosinophils # Basophils # Nucleated Red Blood Cells # Toxic Granulation 1+ Platelet Estimate DECREASED Giant Platelets 1 H Polychromasia 1+ Poikilocytosis 2+ Anisocytosis 2+ Macrocytosis 2+ Sodium Level 136 Potassium Level 5.3 H Chloride Level 100 Carbon Dioxide Level 25 Anion Gap 11 Blood Urea Nitrogen 36 H Creatinine 5.09 H Est Glomerular Filtrat Rate mL/min Glucose Level 203 Calcium Level 8.7 Phosphorus Level 3.9 Magnesium Level 2.0 Albumin 2.0 L Bedside Glucose 193 Medications Medication Current Medications Ondansetron HCl (Zofran Inj) 4 mg Q6H PRN IV NAUSEA/VOMITING Last administered on 08/19/18at 12:55; Admin Dose 4 MG; Start 08/02/18 at 13:00 Diagnostic Test (Pha) (Accu-Chek) 1 ea 02 XX Last administered on 08/22/18 02:08; Admin Dose 1 EA; Start 08/03/18 at 02:00 Insulin Aspart (Novolog Insulin Pen) NOVOLOG *MILD* ALGORITHM WITH MEALS BEDTIME SC Last administered on 08/22/18 20:33; Admin Dose 2 UNIT; Start 08/02/18 at 18:00 Glucose (Glutose) 15 gm Q15M PRN PO DECREASED GLUCOSE; Start 08/02/18 at 13:30 Glucose (Glutose) 22.5 gm Q15M PRN PO DECREASED GLUCOSE; Start 08/02/18 at 13:30 Dextrose (D50w Syringe) 25 ml Q15M PRN IV DECREASED GLUCOSE Last administered on 08/19/18 02:02; Admin Dose 25 ML; Start 08/02/18 at 13:30 Dextrose (D50w Syringe) 50 ml Q15M PRN IV DECREASED GLUCOSE; Start 08/02/18 at 13:30 Glucagon (Glucagen) 1 mg Q15M PRN IM DECREASED GLUCOSE; Start 08/02/18 at 13:30 Glucose (Glutose) 15 gm Q15M PRN BUCCAL DECREASED GLUCOSE; Start 08/02/18 at 13:30 Cholecalciferol (Vitamin D) 1,000 unit DAILY PO Last administered on 08/23/18 08:40; Admin Dose 1,000 UNIT; Start 08/03/18 at 09:00 Folic Acid (Folic Acid) 1 mg DAILY PO Last administered on 08/23/18 08:40; Admin Dose 1 MG; Start 08/03/18 at 09:00 Sevelamer Carbonate (Renvela) 0.8 gm AC MEALS PO Last administered on 08/22/18 18:04; Admin Dose 0.8 GM; Start 08/02/18 at 17:30 Midodrine (Proamatine) 5 mg ON DIALYSIS DAYS PO Last administered on 08/23/18 09:33; Admin Dose 5 MG; Start 08/02/18 at 18:00 Albumin Human 100 ml @ 100 mls/hr WITH DIALYSIS PRN IV SBP <90 DURING DIALYSIS Last administered on 08/23/18 10:29; Admin Dose 100 MLS/HR; Start 08/07/18 at 10:00 Gabapentin (Neurontin) 100 mg DAILY PO Last administered on 08/13/18 09:07; Admin Dose 100 MG; Start 08/07/18 at 11:30; Status Hold Phenol (Cepastat Lozenge) 1 lozenge Q1H PRN MT COUGH Last administered on 08/08/18 02:34; Admin Dose 1 LOZENGE; Start 08/07/18 at 23:00 Heparin Sodium (Porcine) (Heparin (1000 Units/ml)) 6,100 unit AFTER DIALYSIS CATHETER Last administered on 08/21/18 10:19; Admin Dose 6,100 UNIT; Start 08/16/18 at 22:30 Acetaminophen (Tylenol Tab) 650 mg Q6H PRN PO MILD PAIN(1-3)OR ELEVATED TEMP Last administered on 08/18/18 05:59; Admin Dose 650 MG; Start 08/18/18 at 05:30 Levothyroxine Sodium (Synthroid) 50 mcg DAILY@06 PO Last administered on 08/22/18 05:42; Admin Dose 50 MCG; Start 08/20/18 at 06:00 Insulin Glargine (Lantus) 12 units DAILY@0800 SC Last administered on 08/23/18 09:02; Admin Dose 12 UNITS; Start 08/20/18 at 08:00 Docusate Sodium (Colace) 100 mg DAILY PO Last administered on 08/22/18 08:46; Admin Dose 100 MG; Start 08/20/18 at 09:00 Acetaminophen/ Hydrocodone Bitart ([place] (5/325)) 1 tab Q4H PRN GTB MODERATE PAIN LEVEL 4-6 Last administered on 08/22/18 22:58; Admin Dose 1 TAB; Start 08/20/18 at 07:30 Famotidine (Pepcid) 20 mg DAILY PO Last administered on 08/23/18 08:40; Admin Dose 20 MG; Start 08/21/18 at 09:00 Morphine Sulfate (morphine) 1 mg Q4H PRN IV SEVERE PAIN LEVEL 7-10 Last administered on 08/22/18 07:56; Admin Dose 1 MG; Start 08/20/18 at 23:45 Apixaban (Eliquis) 2.5 mg BID PO Last administered on 08/23/18 08:41; Admin Dose 2.5 MG; Start 08/21/18 at 09:30 JAGUAR CARTWRIGHT M.D. Aug 23, 2018 10:36
--- NOTE | 2018-08-23 11:44 | CONS ---
Assessment/Plan Assessment/Plan Hospital Course (Demo Recall) Acute on chronic systolic CHF: euvolemic Right upper extremity DVT: started on Eliquis Non-ischemic Cardiomyopathy PPM: [place] 05/04. For ?complete heart block as 100% v paced. Normal function on interrogation and reprogramming 08/14 and 08/15 Pulm HTN: PAP 60s by echo Mild-moderate aortic stenosis Colon cancer: s/p subtotal colectomy 08/14 ESRD on HD -midodrine on HD days. 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 Otherwise no events. Getting HD currently. No complaints Exam/Review of Systems Exam Vitals Vital Signs Date Temp Pulse Resp B/P (MAP) Pulse Ox O2 O2 Flow FiO2 Time Delivery Rate 08/23/18 98.1 96 18 93/54 (67) 95 Nasal 08:06 Cannula 08/22/18 2.0 08:30 Intake and Output 08/22/18 08/22/18 08/23/18 1515:00 23:00 07:00 IntakeIntake Total 200 ml BalanceBalance 200 ml Constitutional: alert Head: normocephalic, atraumatic Neck: No jvd Respiratory: diminished breath sounds; No clear to auscultation Cardiovascular: edema (1+ arms) Gastrointestinal: soft; No distended Neurological: nl mental status, nl speech Results Result Diagram: 08/23/18 0515 08/23/18 0515 Results 24hrs Laboratory Tests Test 08/22/18 12:59 08/22/18 17:59 08/22/18 20:29 08/23/18 01:45 Bedside Glucose 216 241 H 223 H 199 Test 08/23/18 05:15 08/23/18 08:43 White Blood Count 14.7 H Red Blood Count 3.23 L Hemoglobin 9.6 L Hematocrit 31.1 L Mean Corpuscular Volume 96.3 Mean Corpuscular 29.7 Hemoglobin Mean Corpuscular 30.9 L Hemoglobin Concent Red Cell Distribution 15.9 H Width Platelet Count 105 L Mean Platelet Volume 12.5 H Immature Granulocytes % 0.800 H Neutrophils % Segmented Neutrophils 35 L % (Manual) Band Neutrophils % 52 H (Manual) Lymphocytes % Lymphocytes % (Manual) 6 L Monocytes % Monocytes % (Manual) 6 Eosinophils % Eosinophils % (Manual) 1 Basophils % Nucleated Red Blood 0.0 Cells % Immature Granulocytes # 0.110 H Neutrophils # Neutrophils # (Manual) 6.3 Band Neutrophils # 7.6 H Lymphocytes (Manual) 0.8 Lymphocytes # Monocytes # Monocytes # (Manual) 0.8 Eosinophils # Basophils # Nucleated Red Blood Cells # Toxic Granulation 1+ Platelet Estimate DECREASED Giant Platelets 1 H Polychromasia 1+ Poikilocytosis 2+ Anisocytosis 2+ Macrocytosis 2+ Sodium Level 136 Potassium Level 5.3 H Chloride Level 100 Carbon Dioxide Level 25 Anion Gap 11 Blood Urea Nitrogen 36 H Creatinine 5.09 H Est Glomerular Filtrat Rate mL/min Glucose Level 203 Calcium Level 8.7 Phosphorus Level 3.9 Magnesium Level 2.0 Albumin 2.0 L Bedside Glucose 193 Medications Medication Current Medications Ondansetron HCl (Zofran Inj) 4 mg Q6H PRN IV NAUSEA/VOMITING Last administered on 08/19/18 12:55; Admin Dose 4 MG; Start 08/02/18 at 13:00 Diagnostic Test (Pha) (Accu-Chek) 1 ea 02 XX Last administered on 08/22/18 02:08; Admin Dose 1 EA; Start 08/03/18 at 02:00 Insulin Aspart (Novolog Insulin Pen) NOVOLOG *MILD* ALGORITHM WITH MEALS BEDTIME SC Last administered on 08/22/18 20:33; Admin Dose 2 UNIT; Start 08/02/18 at 18:00 Glucose (Glutose) 15 gm Q15M PRN PO DECREASED GLUCOSE; Start 08/02/18 at 13:30 Glucose (Glutose) 22.5 gm Q15M PRN PO DECREASED GLUCOSE; Start 08/02/18 at 13:30 Dextrose (D50w Syringe) 25 ml Q15M PRN IV DECREASED GLUCOSE Last administered on 08/19/18 02:02; Admin Dose 25 ML; Start 08/02/18 at 13:30 Dextrose (D50w Syringe) 50 ml Q15M PRN IV DECREASED GLUCOSE; Start 08/02/18 at 13:30 Glucagon (Glucagen) 1 mg Q15M PRN IM DECREASED GLUCOSE; Start 08/02/18 at 13:30 Glucose (Glutose) 15 gm Q15M PRN BUCCAL DECREASED GLUCOSE; Start 08/02/18 at 13:30 Cholecalciferol (Vitamin D) 1,000 unit DAILY PO Last administered on 08/23/18 08:40; Admin Dose 1,000 UNIT; Start 08/03/18 at 09:00 Folic Acid (Folic Acid) 1 mg DAILY PO Last administered on 08/23/18 08:40; Admin Dose 1 MG; Start 08/03/18 at 09:00 Sevelamer Carbonate (Renvela) 0.8 gm AC MEALS PO Last administered on 08/22/18 18:04; Admin Dose 0.8 GM; Start 08/02/18 at 17:30 Midodrine (Proamatine) 5 mg ON DIALYSIS DAYS PO Last administered on 08/23/18 09:33; Admin Dose 5 MG; Start 08/02/18 at 18:00 Albumin Human 100 ml @ 100 mls/hr WITH DIALYSIS PRN IV SBP <90 DURING DIALYSIS Last administered on 08/23/18 10:29; Admin Dose 100 MLS/HR; Start 08/07/18 at 10:00 Gabapentin (Neurontin) 100 mg DAILY PO Last administered on 08/13/18 09:07; Admin Dose 100 MG; Start 08/07/18 at 11:30; Status Hold Phenol (Cepastat Lozenge) 1 lozenge Q1H PRN MT COUGH Last administered on 08/08/18 02:34; Admin Dose 1 LOZENGE; Start 08/07/18 at 23:00 Heparin Sodium (Porcine) (Heparin (1000 Units/ml)) 6,100 unit AFTER DIALYSIS CA THETER Last administered on 08/21/18 10:19; Admin Dose 6,100 UNIT; Start 08/16/18 at 22:30 Acetaminophen (Tylenol Tab) 650 mg Q6H PRN PO MILD PAIN(1-3)OR ELEVATED TEMP Last administered on 08/18/18 05:59; Admin Dose 650 MG; Start 08/18/18 at 05:30 Levothyroxine Sodium (Synthroid) 50 mcg DAILY@06 PO Last administered on 08/22/18 05:42; Admin Dose 50 MCG; Start 08/20/18 at 06:00 Insulin Glargine (Lantus) 12 units DAILY@0800 SC Last administered on 08/23/18 09:02; Admin Dose 12 UNITS; Start 08/20/18 at 08:00 Docusate Sodium (Colace) 100 mg DAILY PO Last administered on 08/22/18 08:46; Admin Dose 100 MG; Start 08/20/18 at 09:00 Acetaminophen/ Hydrocodone Bitart ([place] (5/325)) 1 tab Q4H PRN GTB MODERATE PAIN LEVEL 4-6 Last administered on 08/22/18 22:58; Admin Dose 1 TAB; Start 08/20/18 at 07:30 Famotidine (Pepcid) 20 mg DAILY PO Last administered on 08/23/18 08:40; Admin Dose 20 MG; Start 08/21/18 at 09:00 Morphine Sulfate (morphine) 1 mg Q4H PRN IV SEVERE PAIN LEVEL 7-10 Last administered on 08/22/18 07:56; Admin Dose 1 MG; Start 08/20/18 at 23:45 Apixaban (Eliquis) 2.5 mg BID PO Last administered on 08/23/18 08:41; Admin Dose 2.5 MG; Start 08/21/18 at 09:30 LUCRETIA QUEEN Aug 23, 2018 11:44
[2018-08-23] MEDS: HEPARIN 1000 UNITS/ML 10 ML INJ CATHETER SCH (13:53)
--- NOTE | 2018-08-23 17:09 | CONS ---
Assessment/Plan Assessment/Plan Assessment/Plan (Daily) End-stage renal disease, on hemodialysis, mwf with mild CHF MWF 2. 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 Hypotension. On Midodrine at home 4. History of congestive heart failure.1 End-stage renal disease, on hemodialysis,mwf with mild CHF 5. Hypercholesterolemia. 6. Hx of total hip replacement. 7. leucocytosis, off pressor and trending down leukocytosis 8. Hypoglycemia. 9. Macrocytic hypochromic Anemia mixed etiology, recent blood loss and 2/2 kidney disease 10. 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 hd today starting on TPN Exam/Review of Systems Exam Vitals Vital Signs Date Temp Pulse Resp B/P (MAP) Pulse Ox O2 O2 Flow FiO2 Time Delivery Rate 08/23/18 98.0 106 18 96/55 (69) 95 Nasal 14:46 Cannula 08/23/18 2.0 09:45 Intake and Output 08/22/18 08/22/18 08/23/18 1414:59 22:59 06:59 IntakeIntake Total 200 ml BalanceBalance 200 ml Exam Abdomen:distended, colostomy bag rt femoral permcath decreased breath sounds bases Results Result Diagram: 08/23/18 0515 08/23/18 0515 Results 24hrs Laboratory Tests Test 08/22/18 17:59 08/22/18 20:29 08/23/18 01:45 08/23/18 05:15 Bedside Glucose 241 H 223 H 199 White Blood Count 14.7 H Red Blood Count 3.23 L Hemoglobin 9.6 L Hematocrit 31.1 L Mean Corpuscular Volume 96.3 Mean Corpuscular 29.7 Hemoglobin Mean Corpuscular 30.9 L Hemoglobin Concent Red Cell Distribution 15.9 H Width Platelet Count 105 L Mean Platelet Volume 12.5 H Immature Granulocytes % 0.800 H Neutrophils % Segmented Neutrophils 35 L % (Manual) Band Neutrophils % 52 H (Manual) Lymphocytes % Lymphocytes % (Manual) 6 L Monocytes % Monocytes % (Manual) 6 Eosinophils % Eosinophils % (Manual) 1 Basophils % Nucleated Red Blood 0.0 Cells % Immature Granulocytes # 0.110 H Neutrophils # Neutrophils # (Manual) 6.3 Band Neutrophils # 7.6 H Lymphocytes (Manual) 0.8 Lymphocytes # Monocytes # Monocytes # (Manual) 0.8 Eosinophils # Basophils # Nucleated Red Blood Cells # Toxic Granulation 1+ Platelet Estimate DECREASED Giant Platelets 1 H Polychromasia 1+ Poikilocytosis 2+ Anisocytosis 2+ Macrocytosis 2+ Sodium Level 136 Potassium Level 5.3 H Chloride Level 100 Carbon Dioxide Level 25 Anion Gap 11 Blood Urea Nitrogen 36 H Creatinine 5.09 H Est Glomerular Filtrat Rate mL/min Glucose Level 203 Calcium Level 8.7 Phosphorus Level 3.9 Magnesium Level 2.0 Albumin 2.0 L Test 08/23/18 08:43 08/23/18 12:51 Bedside Glucose 193 168 Medications Medication Current Medications Ondansetron HCl (Zofran Inj) 4 mg Q6H PRN IV NAUSEA/VOMITING Last administered on 08/19/18at 12:55; Admin Dose 4 MG; Start 08/02/18 at 13:00 Diagnostic Test (Pha) (Accu-Chek) 1 ea 02 XX Last administered on 08/22/18at 02:08; Admin Dose 1 EA; Start 08/03/18 at 02:00 Insulin Aspart (Novolog Insulin Pen) NOVOLOG *MILD* ALGORITHM WITH MEALS BEDTIME SC Last administered on 08/22/18at 20:33; Admin Dose 2 UNIT; Start 08/02/18 at 18:00 Glucose (Glutose) 15 gm Q15M PRN PO DECREASED GLUCOSE; Start 08/02/18 at 13:30 Glucose (Glutose) 22.5 gm Q15M PRN PO DECREASED GLUCOSE; Start 08/02/18 at 13:30 Dextrose (D50w Syringe) 25 ml Q15M PRN IV DECREASED GLUCOSE Last administered on 08/19/18 02:02; Admin Dose 25 ML; Start 08/02/18 at 13:30 Dextrose (D50w Syringe) 50 ml Q15M PRN IV DECREASED GLUCOSE; Start 08/02/18 at 13:30 Glucagon (Glucagen) 1 mg Q15M PRN IM DECREASED GLUCOSE; Start 08/02/18 at 13:30 Glucose (Glutose) 15 gm Q15M PRN BUCCAL DECREASED GLUCOSE; Start 08/02/18 at 13:30 Cholecalciferol (Vitamin D) 1,000 unit DAILY PO Last administered on 08/23/18 08:40; Admin Dose 1,000 UNIT; Start 08/03/18 at 09:00 Folic Acid (Folic Acid) 1 mg DAILY PO Last administered on 08/23/18 08:40; Admin Dose 1 MG; Start 08/03/18 at 09:00 Sevelamer Carbonate (Renvela) 0.8 gm AC MEALS PO Last administered on 08/22/18 18:04; Admin Dose 0.8 GM; Start 08/02/18 at 17:30 Midodrine (Proamatine) 5 mg ON DIALYSIS DAYS PO Last administered on 08/23/18 09:33; Admin Dose 5 MG; Start 08/02/18 at 18:00 Albumin Human 100 ml @ 100 mls/hr WITH DIALYSIS PRN IV SBP <90 DURING DIALYSIS Last administered on 08/23/18 10:29; Admin Dose 100 MLS/HR; Start 08/07/18 at 10:00 Gabapentin (Neurontin) 100 mg DAILY PO Last administered on 08/13/18 09:07; Admin Dose 100 MG; Start 08/07/18 at 11:30; Status Hold Phenol (Cepastat Lozenge) 1 lozenge Q1H PRN MT COUGH Last administered on 08/08/18 02:34; Admin Dose 1 LOZENGE; Start 08/07/18 at 23:00 Heparin Sodium (Porcine) (Heparin (1000 Units/ml)) 6,100 unit AFTER DIALYSIS CATHETER Last administered on 08/23/18 13:53; Admin Dose 6,100 UNIT; Start 08/16/18 at 22:30 Acetaminophen (Tylenol Tab) 650 mg Q6H PRN PO MILD PAIN(1-3)OR ELEVATED TEMP Last administered on 08/18/18 05:59; Admin Dose 650 MG; Start 08/18/18 at 05:30 Levothyroxine Sodium (Synthroid) 50 mcg DAILY@06 PO Last administered on 08/22/18 05:42; Admin Dose 50 MCG; Start 08/20/18 at 06:00 Insulin Glargine (Lantus) 12 units DAILY@0800 SC Last administered on 08/23/18 09:02; Admin Dose 12 UNITS; Start 08/20/18 at 08:00 Docusate Sodium (Colace) 100 mg DAILY PO Last administered on 08/22/18 08:46; Admin Dose 100 MG; Start 08/20/18 at 09:00 Acetaminophen/ Hydrocodone Bitart ([place] (5/325)) 1 tab Q4H PRN GTB MODERATE PAIN LEVEL 4-6 Last administered on 08/22/18 22:58; Admin Dose 1 TAB; Start 08/20/18 at 07:30 Famotidine (Pepcid) 20 mg DAILY PO Last administered on 08/23/18 08:40; Admin Dose 20 MG; Start 08/21/18 at 09:00 Morphine Sulfate (morphine) 1 mg Q4H PRN IV SEVERE PAIN LEVEL 7-10 Last admi nistered on 08/22/18 07:56; Admin Dose 1 MG; Start 08/20/18 at 23:45 Apixaban (Eliquis) 2.5 mg BID PO Last administered on 08/23/18 08:41; Admin Dose 2.5 MG; Start 08/21/18 at 09:30 Diagnostic Test (Pha) (Accu-Chek) 1 ea Q4 XX ; Start 08/23/18 at 17:00; Status UNV Fat Emulsion Intravenous 250 ml @ 21 mls/hr DAILY IV ; Start 08/24/18 at 09:00; Status UNV Miscellaneous Information (* Miscellaneous Pharmacy Order) 1 ea ONCE ONCE XX ; Start 08/23/18 at 17:00; Stop 08/23/18 at 17:01; Status UNV NNEKA FRITZ MD Aug 23, 2018 17:09
[2018-08-23] MEDS ORDERED: TPN 1,000 ML IV SCH (17:21)
[2018-08-24 00:54] VITALS: BP 100/56; PULSE 98; RESP 20
[2018-08-24] MEDS: Insulin NOVOLOG SS MILD Algorithm (NPO/TPN/ENTERAL FEEDS) SC SCH ×6 (01:00→22:37)
[2018-08-24] MEDS ORDERED: INSULIN ASPART [NOVOLOG] 3 ML PEN SC SCH (01:00)
[2018-08-24] MEDS: ACCU-CHEK XX SCH ×7 (01:00→21:00)
[2018-08-24] MEDS: HYDROCODONE/APAP (5/325) TAB GTB PRN (03:29)
[2018-08-24] MEDS: LEVOTHYROXINE 50 MCG TAB PO SCH (05:47)
[2018-08-24 07:17] VITALS: BP 97/55; PULSE 99; RESP 18
[2018-08-24] MEDS: SEVELAMER CARBONATE 0.8 GM PKT PO SCH ×3 (08:58→17:45)
[2018-08-24] MEDS: FOLIC ACID 1 MG TAB PO SCH (08:58)
[2018-08-24] MEDS: FAMOTIDINE 20 MG TAB PO SCH (08:58)
[2018-08-24] MEDS: CHOLECALCIFEROL 1,000 UNIT TAB PO SCH (08:59)
[2018-08-24] MEDS: APIXABAN 5 MG TABLET PO SCH ×2 (08:59→21:49)
[2018-08-24] MEDS: BALSAM PERU/CASTOR OIL 60 GM TUBE TOP SCH ×2 (09:00→21:50)
[2018-08-24] MEDS: DOCUSATE SODIUM 100 MG CAP PO SCH (09:00)
[2018-08-24] MEDS: INSULIN GLARGINE [LANTus] (100 UNITS/ML) SYG SC SCH (09:02)
--- NOTE | 2018-08-24 09:03 | PN ---
Date/Time of Note Date/Time of Note DATE: 08/24/18 TIME: 09:03 Assessment/Plan VTE Prophylaxis Risk score (from Ns)>0 risk: 19 SCD applied (from Ns): Yes Pharmacological prophylaxis: apixaban Lines/Catheters IV [facility] AILEEN CATH Urinary Cath still in place: No Assessment/Plan Assessment/Plan 1. Colonic mass at the splenic flexure and ascending colon s/p subtotal colectomy and small bowel resection on 08/14/18 - Continue care to open wound and TPN being started today via [facility] - Dr. Meneses/Jimbo on board and appreciate consultation - GI on board and appreciate recommendations. 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 End-stage renal disease on HD - Nephrology on board for HD management and appreciate recommendations - clogged fistula catheter (HeRO), consulted Dr. Coelho for recs as he is patient's vascular surgeon, recommended Aileen for now until we can fully anticoagulate. Follow as outpatient. On Eliquis and tolerating 3. GI bleed 2/2 to above mass - resolved 4. Arm swelling - Ultrasound showed right brachial DVT as well as thrombosis of the left cephalic vein. Patient's midline on his right arm is the likely culprit for the DVT on his right brachial vein. - dialysis catheter in left arm clotted for now, no Cathflo due to recent surgery per vascular surgery - monitor, warm compresses. - Patient is likely an hypercoagulable state due to his carcinoma and started on Eliquis 5. Diabetes - A1c noted - counseled about importance of diet choices and glucose control - Continue Lantus and ISS 6. Esophagitis - Continue PPI 7. Hypothyroidism - Continue home Synthroid 8. Persistent cough - resolved 9. Nonischemic CM - pacer in place - Chronic per outpatient Solution Engineer 10. Mild acute on chronic systolic HF - fluid removal during HD 11. Disposition - Start TPN and monitor fistula - Wound care on board for ostomy dressing changes Result Diagram: 08/23/18 0515 08/24/18 0440 Results 24hrs Laboratory Tests Test 08/23/18 12:51 08/23/18 17:48 08/23/18 20:12 08/24/18 00:44 Bedside Glucose 168 131 135 135 Test 08/24/18 04:34 08/24/18 04:40 08/24/18 08:22 Bedside Glucose 125 125 Sodium Level 138 Potassium Level 4.8 Chloride Level 101 Carbon Dioxide Level 27 Anion Gap 10 Blood Urea Nitrogen 31 H Creatinine 3.64 #H Est Glomerular Filtrat Rate mL/min Glucose Level 129 # Calcium Level 8.5 Phosphorus Level 3.5 Magnesium Level 2.0 Ammonia 27 Prealbumin < 3.0 L Triglycerides Level 53 Subjective 24 Hr Interval Summary Free Text/Dictation Patient more awake this am with no new complaints. Plan of care discussed with family at bedside. continue with output via ostomy bag Exam/Review of Systems Exam Vitals Vital Signs Date Temp Pulse Resp B/P (MAP) Pulse Ox O2 O2 Flow FiO2 Time Delivery Rate 08/24/18 98.6 99 18 97/55 (69) 97 07:17 08/23/18 Nasal 2.0 22:53 Cannula Intake and Output 08/23/18 08/23/18 08/24/18 1414:59 22:59 06:59 OutputOutput Total 4671 ml 4800 ml 1000 ml BalanceBalance -4671 ml -4800 ml -1000 ml Exam General: Patient is laying in bed. fatigued Respiratory: Clear to auscultation bilaterally. no wheezing or rhonchi Cardiovascular: regular rate and rhythm, no obvious murmurs Gastrointestinal: soft, nontender, ostomy bag in place. mildly nondistended, no guarding Neurological: Moves all extremities spontaneously Skin: incision site clean and dry Results Results 24hrs Laboratory Tests Test 08/23/18 12:51 08/23/18 17:48 08/23/18 20:12 08/24/18 00:44 Bedside Glucose 168 131 135 135 Test 08/24/18 04:34 08/24/18 04:40 08/24/18 08:22 Bedside Glucose 125 125 Sodium Level 138 Potassium Level 4.8 Chloride Level 101 Carbon Dioxide Level 27 Anion Gap 10 Blood Urea Nitrogen 31 H Creatinine 3.64 #H Est Glomerular Filtrat Rate mL/min Glucose Level 129 # Calcium Level 8.5 Phosphorus Level 3.5 Magnesium Level 2.0 Ammonia 27 Prealbumin < 3.0 L Triglycerides Level 53 Medications Medication Current Medications Ondansetron HCl (Zofran Inj) 4 mg Q6H PRN IV NAUSEA/VOMITING Last administered on 08/19/18 12:55; Admin Dose 4 MG; Start 08/02/18 at 13:00 Diagnostic Test (Pha) (Accu-Chek) 1 ea 02 XX Last administered on 08/22/18 02:08; Admin Dose 1 EA; Start 08/03/18 at 02:00 Glucose (Glutose) 15 gm Q15M PRN PO DECREASED GLUCOSE; Start 08/02/18 at 13:30 Glucose (Glutose) 22.5 gm Q15M PRN PO DECREASED GLUCOSE; Start 08/02/18 at 13:30 Dextrose (D50w Syringe) 25 ml Q15M PRN IV DECREASED GLUCOSE Last administered on 08/19/18 02:02; Admin Dose 25 ML; Start 08/02/18 at 13:30 Dextrose (D50w Syringe) 50 ml Q15M PRN IV DECREASED GLUCOSE; Start 08/02/18 at 13:30 Glucagon (Glucagen) 1 mg Q15M PRN IM DECREASED GLUCOSE; Start 08/02/18 at 13:30 Glucose (Glutose) 15 gm Q15M PRN BUCCAL DECREASED GLUCOSE; Start 08/02/18 at 13:30 Cholecalciferol (Vitamin D) 1,000 unit DAILY PO Last administered on 08/23/18 08:40; Admin Dose 1,000 UNIT; Start 08/03/18 at 09:00 Folic Acid (Folic Acid) 1 mg DAILY PO Last administered on 08/23/18 08:40; Admin Dose 1 MG; Start 08/03/18 at 09:00 Sevelamer Carbonate (Renvela) 0.8 gm AC MEALS PO Last administered on 08/22/18 18:04; Admin Dose 0.8 GM; Start 08/02/18 at 17:30 Midodrine (Proamatine) 5 mg ON DIALYSIS DAYS PO Last administered on 08/23/18 09:33; Admin Dose 5 MG; Start 08/02/18 at 18:00 Albumin Human 100 ml @ 100 mls/hr WITH DIALYSIS PRN IV SBP <90 DURING DIALYSIS Last administered on 08/23/18 10:29; Admin Dose 100 MLS/HR; Start 08/07/18 at 10:00 Gabapentin (Neurontin) 100 mg DAILY PO Last administered on 08/13/18 09:07; Admin Dose 100 MG; Start 08/07/18 at 11:30; Status Hold Phenol (Cepastat Lozenge) 1 lozenge Q1H PRN MT COUGH Last administered on 08/08/18 02:34; Admin Dose 1 LOZENGE; Start 08/07/18 at 23:00 Heparin Sodium (Porcine) (Heparin (1000 Units/ml)) 6,100 unit AFTER DIALYSIS CATHETER Last administered on 08/23/18 13:53; Admin Dose 6,100 UNIT; Start 08/16/18 at 22:30 Acetaminophen (Tylenol Tab) 650 mg Q6H PRN PO MILD PAIN(1-3)OR ELEVATED TEMP Last administered on 08/18/18 05:59; Admin Dose 650 MG; Start 08/18/18 at 05:30 Levothyroxine Sodium (Synthroid) 50 mcg DAILY@06 PO Last administered on 08/24/18 05:47; Admin Dose 50 MCG; Start 08/20/18 at 06:00 Insulin Glargine (Lantus) 12 units DAILY@0800 SC Last administered on 08/23/18 09:02; Admin Dose 12 UNITS; Start 08/20/18 at 08:00 Docusate Sodium (Colace) 100 mg DAILY PO Last administered on 08/22/18 08:46; Admin Dose 100 MG; Start 08/20/18 at 09:00 Acetaminophen/ Hydrocodone Bitart ([place] (5/325)) 1 tab Q4H PRN GTB MODERATE PAIN LEVEL 4-6 Last administered on 08/24/18 03:29; Admin Dose 1 TAB; Start 08/20/18 at 07:30 Famotidine (Pepcid) 20 mg DAILY PO Last administered on 08/23/18 08:40; Admin Dose 20 MG; Start 08/21/18 at 09:00 Morphine Sulfate (morphine) 1 mg Q4H PRN IV SEVERE PAIN LEVEL 7-10 Last administered on 08/22/18 07:56; Admin Dose 1 MG; Start 08/20/18 at 23:45 Apixaban (Eliquis) 2.5 mg BID PO Last administered on 08/23/18 20:09; Admin Dose 2.5 MG; Start 08/21/18 at 09:30 Diagnostic Test (Pha) (Accu-Chek) 1 ea Q4 XX ; Start 08/23/18 at 21:00 Fat Emulsion Intravenous 250 ml @ 21 mls/hr DAILY IV ; Start 08/24/18 at 09:00; Status UNV Miscellaneous Information (* Miscellaneous Pharmacy Order) 1 ea ONCE ONCE XX ; Start 08/23/18 at 17:00; Stop 08/23/18 at 17:01; Status UNV Total Parenteral Nutrition 1,000 ml @ 0 mls/hr Q0M IV ; Start 08/23/18 at 17:21; Status UNV Insulin Aspart (Novolog Insulin Pen) (Adult SC Insulin - Mild Algorithm)... Q4 SC ; Start 08/24/18 at 01:00 JO HURST MD Aug 24, 2018 09:03
[2018-08-24 10:25] VITALS: BP 101/58; PULSE 92; RESP 17
--- NOTE | 2018-08-24 10:59 | PN ---
Date/Time of Note Date/Time of Note DATE: 08/24/18 TIME: 10:56 Assessment/Plan VTE Prophylaxis VTE Prophylaxis Intervention: SCD's Lines/Catheters IV Catheter Type (from [facility]): AILEEN CATH Blevins in Place (from [facility]): No Assessment/Plan Chief Complaint/Hosp Course Mr. Buck is a 78 y/o with ESRD on dialysis who underwent a subtotal colectomy for an ascending colon adenocarcinoma and a GIST tumor in the distal transverse colon invading into the proximal jejunum. 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 He is hemodynamically stable and is now NPO. He is going to begin TPN today so we can feed him parenterally. I will order a PICC line for his TPN today. Subjective 24 Hr Interval Summary Mr. Buck reports that he has abdominal pain, but that it is managed well. He is mildly lethargic, but easily aroused. He demonstrates mild confusion. Feeding: NPO Pain Control: well controlled Exam/Review of Systems Vital Signs Vitals Vital Signs Date Temp Pulse Resp B/P (MAP) Pulse Ox O2 O2 Flow FiO2 Time Delivery Rate 08/24/18 97.9 92 17 101/58 98 Nasal 2.0 10:25 (72) Cannula Intake and Output 08/23/18 08/23/18 08/24/18 1515:00 23:00 07:00 OutputOutput Total 4671 ml 4800 ml 1000 ml BalanceBalance -4671 ml -4800 ml -1000 ml Exam Gastrointestinal: soft, non-tender, surgical scars (upper midline incision is healing well, enterocutanous fistula at lower midline incision), other (stoma bag over lower incision, +liquid brown stool in bag) Results Result Diagram: 08/23/18 0515 08/24/18 0440 CASSIE MARMOLEJO MD Aug 24, 2018 10:59
[2018-08-24] MEDS ORDERED: LIDOCAINE 1% (MPF) 5 ML VIAL SC ONE (11:30)
--- NOTE | 2018-08-24 11:47 | CONS ---
Assessment/Plan Assessment/Plan Assessment/Plan (Daily) #Adenocarcinoma of ascending Colon ca -final pathology report reveals 2 separate masses with different pathology results. -the ascending colon mass is consistent with a Moderately-differentiated adenocarcinoma, invading through the muscularis propria, with all 0/18 negative for disease, 3.6 x 2.8 x 1.1 cm. -the splenic flexture mass is 10.5 x 9.0 x 7.0 cm.and consistent with a high grade GIST tumor -CT does not reveal evidence of distant mets -in terms of the adenocarcinoma, pt does not need adjuvant chemotherapy given this was a stage IIA tumor. - Will b starting on TPN today #GIST -pt is categorized as having a high risk GIST given the tumor size of > 10cm and mitotic rate of 59 mitoses/50 hpf. 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 However we need to see if he is positive for KIT exon 9 mutation which may need higher doses of imatinib (eg 800mg q day vs 400mg q day) - Regardless, given he does have the KIT mutation he would He would however benefit adjuvant Gleevec for at least 36 mo #s/p Surgical resection -continue to ambulate and advance diet as tolerated -management per surgery #ESRD -continue HD per renal #Diabetes - A1c noted - Continue Lantus and ISS #Hypothyroidism - Continue Synthroid #Nonischemic CM - pacer in place - nonchronic Further recommendations based on clinical course.Patient seen in collaboration with Dr Hodges Consultation Date/Type/Reason Admit Date/Time Aug 02, 2018 at 10:57 Initial Consult Date 08/09/18 Type of Consult oncology Reason for Consultation Colon Adenocarcinoma Requesting Provider: DULCE GALINDO Date/Time of Note DATE: 08/24/18 TIME: 11:41 24 HR Interval Summary Free Text/Dictation Will be starting on TPN today. at bed side- all Qs answered no new issued reported last night dw staff Constitutional: requiring IVF, requiring O2 Exam/Review of Systems Exam Vitals Vital Signs Date Temp Pulse Resp B/P (MAP) Pulse Ox O2 O2 Flow FiO2 Time Delivery Rate 08/24/18 97.9 92 17 101/58 98 Nasal 2.0 10:25 (72) Cannula Intake and Output 08/23/18 08/23/18 08/24/18 1515:00 23:00 07:00 OutputOutput Total 4671 ml 4800 ml 1000 ml BalanceBalance -4671 ml -4800 ml -1000 ml Constitutional: alert, well developed Psych: nl mood/affect Head: atraumatic Eyes: EOMI, nl lids, nl sclera ENMT: nl external ears & nose Neck: non-tender Respiratory: diminished breath sounds (at bases bilaterally) Cardiovascular: nl pulses, other (s1s2) Gastrointestinal: soft, tender, other ( fistula present, clean around incision site; ostomy bag intact, no guarding) Musculoskeletal: muscle weakness Extremities: edema Neurological: other (alert/responsive) Lymph: nontender Results Result Diagram: 08/23/18 0515 08/24/18 0440 Results 24hrs Laboratory Tests Test 08/23/18 12:51 08/23/18 17:48 08/23/18 20:12 08/24/18 00:44 Bedside Glucose 168 131 135 135 Test 08/24/18 04:34 08/24/18 04:40 08/24/18 08:22 Bedside Glucose 125 125 Sodium Level 138 Potassium Level 4.8 Chloride Level 101 Carbon Dioxide Level 27 Anion Gap 10 Blood Urea Nitrogen 31 H Creatinine 3.64 #H Est Glomerular Filtrat Rate mL/min Glucose Level 129 # Calcium Level 8.5 Phosphorus Level 3.5 Magnesium Level 2.0 Ammonia 27 Prealbumin < 3.0 L Triglycerides Level 53 Medications Medication Current Medications Ondansetron HCl (Zofran Inj) 4 mg Q6H PRN IV NAUSEA/VOMITING Last administered on 08/19/18at 12:55; Admin Dose 4 MG; Start 08/02/18 at 13:00 Diagnostic Test (Pha) (Accu-Chek) 1 ea 02 XX Last administered on 08/22/18at 02:08; Admin Dose 1 EA; Start 08/03/18 at 02:00 Glucose (Glutose) 15 gm Q15M PRN PO DECREASED GLUCOSE; Start 08/02/18 at 13:30 Glucose (Glutose) 22.5 gm Q15M PRN PO DECREASED GLUCOSE; Start 08/02/18 at 13:30 Dextrose (D50w Syringe) 25 ml Q15M PRN IV DECREASED GLUCOSE Last administered on 08/19/18at 02:02; Admin Dose 25 ML; Start 08/02/18 at 13:30 Dextrose (D50w Syringe) 50 ml Q15M PRN IV DECREASED GLUCOSE; Start 08/02/18 at 13:30 Glucagon (Glucagen) 1 mg Q15M PRN IM DECREASED GLUCOSE; Start 08/02/18 at 13:30 Glucose (Glutose) 15 gm Q15M PRN BUCCAL DECREASED GLUCOSE; Start 08/02/18 at 13:30 Cholecalciferol (Vitamin D) 1,000 unit DAILY PO Last administered on 08/24/18 08:59; Admin Dose 1,000 UNIT; Start 08/03/18 at 09:00 Folic Acid (Folic Acid) 1 mg DAILY PO Last administered on 08/24/18 08:58; Admin Dose 1 MG; Start 08/03/18 at 09:00 Sevelamer Carbonate (Renvela) 0.8 gm AC MEALS PO Last administered on 08/24/18 08:58; Admin Dose 0.8 GM; Start 08/02/18 at 17:30 Midodrine (Proamatine) 5 mg ON DIALYSIS DAYS PO Last administered on 08/23/18 09:33; Admin Dose 5 MG; Start 08/02/18 at 18:00 Albumin Human 100 ml @ 100 mls/hr WITH DIALYSIS PRN IV SBP <90 DURING DIALYSIS Last administered on 08/23/18 10:29; Admin Dose 100 MLS/HR; Start 08/07/18 at 10:00 Gabapentin (Neurontin) 100 mg DAILY PO Last administered on 08/13/18 09:07; Admin Dose 100 MG; Start 08/07/18 at 11:30; Status Hold Phenol (Cepastat Lozenge) 1 lozenge Q1H PRN MT COUGH Last administered on 08/08/18 02:34; Admin Dose 1 LOZENGE; Start 08/07/18 at 23:00 Heparin Sodium (Porcine) (Heparin (1000 Units/ml)) 6,100 unit AFTER DIALYSIS CATHETER Last administered on 08/23/18 13:53; Admin Dose 6,100 UNIT; Start 08/16/18 at 22:30 Acetaminophen (Tylenol Tab) 650 mg Q6H PRN PO MILD PAIN(1-3)OR ELEVATED TEMP Last administered on 08/18/18 05:59; Admin Dose 650 MG; Start 08/18/18 at 05:30 Levothyroxine Sodium (Synthroid) 50 mcg DAILY@06 PO Last administered on 08/24/18 05:47; Admin Dose 50 MCG; Start 08/20/18 at 06:00 Insulin Glargine (Lantus) 12 units DAILY@0800 SC Last administered on 08/24/18 09:02; Admin Dose 12 UNITS; Start 08/20/18 at 08:00 Docusate Sodium (Colace) 100 mg DAILY PO Last administered on 08/22/18 08:46; Admin Dose 100 MG; Start 08/20/18 at 09:00 Acetaminophen/ Hydrocodone Bitart ([place] (5/325)) 1 tab Q4H PRN GTB MODERATE PAIN LEVEL 4-6 Last administered on 08/24/18 03:29; Admin Dose 1 TAB; Start 08/20/18 at 07:30 Famotidine (Pepcid) 20 mg DAILY PO Last administered on 08/24/18 08:58; Admin Dose 20 MG; Start 08/21/18 at 09:00 Morphine Sulfate (morphine) 1 mg Q4H PRN IV SEVERE PAIN LEVEL 7-10 Last administered on 08/22/18 07:56; Admin Dose 1 MG; Start 08/20/18 at 23:45 Apixaban (Eliquis) 2.5 mg BID PO Last administered on 08/24/18 08:59; Admin Dose 2.5 MG; Start 08/21/18 at 09:30 Diagnostic Test (Pha) (Accu-Chek) 1 ea Q4 XX Last administered on 08/24/18 09:06; Admin Dose 1 EA; Start 08/23/18 at 21:00 Fat Emulsion Intravenous 250 ml @ 21 mls/hr DAILY IV ; Start 08/24/18 at 09:00; Status UNV Miscellaneous Information (* Miscellaneous Pharmacy Order) 1 ea ONCE ONCE XX ; Start 08/23/18 at 17:00; Stop 08/23/18 at 17:01; Status UNV Total Parenteral Nutrition 1,000 ml @ 0 mls/hr Q0M IV ; Start 08/23/18 at 17:21; Status UNV Insulin Aspart (Novolog Insulin Pen) (Adult SC Insulin - Mild Algorithm)... Q4 S C ; Start 08/24/18 at 01:00 Piperacillin Sod/ Tazobactam Sod 100 ml @ 200 mls/hr Q8 IVPB ; Start 08/24/18 at 14:00 SHAMIR FRANKS Aug 24, 2018 11:47
[2018-08-24 14:00] VITALS: BP 101/59; PULSE 92; RESP 18
[2018-08-24] MEDS: PIPER-TAZO 3.375 GM IV (PMX) 100 ML IVPB SCH ×2 (14:08→21:51)
[2018-08-24] MEDS: FAT EMULSION 20% 250 ML IV SCH (14:14)
--- NOTE | 2018-08-24 16:13 | CONS ---
Assessment/Plan Assessment/Plan Hospital Course (Demo Recall) 1 End-stage renal disease, on hemodialysis, mwf with mild CHF 2. 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 Hypotension. On Midodrine at home 4. History of congestive heart failure.1 End-stage renal disease, on hemodialysis,mwf with mild CHF 5. Hypercholesterolemia. 6. Hx of total hip replacement. 7. leucocytosis, off pressor and trending down leukocytosis 8. Hypoglycemia. 9. Macrocytic hypochromic Anemia mixed etiology, recent blood loss and 2/2 kidney disease 10. 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% 12 Clotted left arm AV graft Assessment/Plan (Daily) - HD MWF, - Midodrine on hd days - Enterocutaneous fistula by surgeon pt is on TPN, - avoid narcotics -Renally Dose all meds - management on adenocarcinoma per onc> Adjuvant chemo for GIST - Pt will need f/u Dr Coelho for Hero graft upon dc, he is aware Consultation Date/Type/Reason Admit Date/Time Aug 02, 2018 at 10:57 Initial Consult Date 08/02/18 Type of Consult nephrology Requesting Provider: DULCE GALINDO Date/Time of Note DATE: 08/24/18 TIME: 16:13 24 HR Interval Summary Constitutional: no complaints Exam/Review of Systems Exam Vitals Vital Signs Date Temp Pulse Resp B/P (MAP) Pulse Ox O2 O2 Flow FiO2 Time Delivery Rate 08/24/18 97.9 92 17 101/58 98 Nasal 2.0 10:25 (72) Cannula Intake and Output 08/23/18 08/23/18 08/24/18 1515:00 23:00 07:00 OutputOutput Total 4671 ml 4800 ml 1000 ml BalanceBalance -4671 ml -4800 ml -1000 ml Exam right groin portocath, left arm AV fistula clotted Constitutional: alert Psych: no complaints Head: normocephalic Eyes: nl conjunctiva Neck: supple Respiratory: clear to auscultation Cardiovascular: regular rate and rhythm Gastrointestinal: soft, surgical scars, other (dehisience) Extremities: normal pulses Results Result Diagram: 08/23/18 0515 08/24/18 0440 Results 24hrs Laboratory Tests Test 08/23/18 17:48 08/23/18 20:12 08/24/18 00:44 08/24/18 04:34 Bedside Glucose 131 135 135 125 Test 08/24/18 04:40 08/24/18 08:22 08/24/18 12:38 Sodium Level 138 Potassium Level 4.8 Chloride Level 101 Carbon Dioxide Level 27 Anion Gap 10 Blood Urea Nitrogen 31 H Creatinine 3.64 #H Est Glomerular Filtrat Rate mL/min Glucose Level 129 # Calcium Level 8.5 Phosphorus Level 3.5 Magnesium Level 2.0 Ammonia 27 Prealbumin < 3.0 L Triglycerides Level 53 Bedside Glucose 125 120 Medications Medication Current Medications Ondansetron HCl (Zofran Inj) 4 mg Q6H PRN IV NAUSEA/VOMITING Last administered on 08/19/18 12:55; Admin Dose 4 MG; Start 08/02/18 at 13:00 Diagnostic Test (Pha) (Accu-Chek) 1 ea 02 XX Last administered on 08/22/18at 02:08; Admin Dose 1 EA; Start 08/03/18 at 02:00 Glucose (Glutose) 15 gm Q15M PRN PO DECREASED GLUCOSE; Start 08/02/18 at 13:30 Glucose (Glutose) 22.5 gm Q15M PRN PO DECREASED GLUCOSE; Start 08/02/18 at 13:30 Dextrose (D50w Syringe) 25 ml Q15M PRN IV DECREASED GLUCOSE Last administered on 08/19/18 02:02; Admin Dose 25 ML; Start 08/02/18 at 13:30 Dextrose (D50w Syringe) 50 ml Q15M PRN IV DECREASED GLUCOSE; Start 08/02/18 at 13:30 Glucagon (Glucagen) 1 mg Q15M PRN IM DECREASED GLUCOSE; Start 08/02/18 at 13:30 Glucose (Glutose) 15 gm Q15M PRN BUCCAL DECREASED GLUCOSE; Start 08/02/18 at 13:30 Cholecalciferol (Vitamin D) 1,000 unit DAILY PO Last administered on 08/24/18at 08:59; Admin Dose 1,000 UNIT; Start 08/03/18 at 09:00 Folic Acid (Folic Acid) 1 mg DAILY PO Last administered on 08/24/18at 08:58; Admin Dose 1 MG; Start 08/03/18 at 09:00 Sevelamer Carbonate (Renvela) 0.8 gm AC MEALS PO Last administered on 08/24/18 11:10; Admin Dose 0.8 GM; Start 08/02/18 at 17:30 Midodrine (Proamatine) 5 mg ON DIALYSIS DAYS PO Last administered on 08/23/18 09:33; Admin Dose 5 MG; Start 08/02/18 at 18:00 Albumin Human 100 ml @ 100 mls/hr WITH DIALYSIS PRN IV SBP <90 DURING DIALYSIS Last administered on 08/23/18 10:29; Admin Dose 100 MLS/HR; Start 08/07/18 at 10:00 Gabapentin (Neurontin) 100 mg DAILY PO Last administered on 08/13/18 09:07; A dmin Dose 100 MG; Start 08/07/18 at 11:30; Status Hold Phenol (Cepastat Lozenge) 1 lozenge Q1H PRN MT COUGH Last administered on 08/08/18 02:34; Admin Dose 1 LOZENGE; Start 08/07/18 at 23:00 Heparin Sodium (Porcine) (Heparin (1000 Units/ml)) 6,100 unit AFTER DIALYSIS CATHETER Last administered on 08/23/18 13:53; Admin Dose 6,100 UNIT; Start 08/16/18 at 22:30 Acetaminophen (Tylenol Tab) 650 mg Q6H PRN PO MILD PAIN(1-3)OR ELEVATED TEMP Last administered on 08/18/18 05:59; Admin Dose 650 MG; Start 08/18/18 at 05:30 Levothyroxine Sodium (Synthroid) 50 mcg DAILY@06 PO Last administered on 05:47; Admin Dose 50 MCG; Start 08/20/18 at 06:00 Insulin Glargine (Lantus) 12 units DAILY@0800 SC Last administered on 08/24/18 09:02; Admin Dose 12 UNITS; Start 08/20/18 at 08:00 Docusate Sodium (Colace) 100 mg DAILY PO Last administered on 08/22/18 08:46; Admin Dose 100 MG; Start 08/20/18 at 09:00 Acetaminophen/ Hydrocodone Bitart ([place] (5/325)) 1 tab Q4H PRN GTB MODERATE PAIN LEVEL 4-6 Last administered on 08/24/18 03:29; Admin Dose 1 TAB; Start 08/20/18 at 07:30 Famotidine (Pepcid) 20 mg DAILY PO Last administered on 08/24/18 08:58; Admin Dose 20 MG; Start 08/21/18 at 09:00 Morphine Sulfate (morphine) 1 mg Q4H PRN IV SEVERE PAIN LEVEL 7-10 Last administered on 08/22/18 07:56; Admin Dose 1 MG; Start 08/20/18 at 23:45 Apixaban (Eliquis) 2.5 mg BID PO Last administered on 08/24/18 08:59; Admin Dose 2.5 MG; Start 08/21/18 at 09:30 Diagnostic Test (Pha) (Accu-Chek) 1 ea Q4 XX Last administered on 08/24/18 13:00; Admin Dose 1 EA; Start 08/23/18 at 21:00 Fat Emulsion Intravenous 250 ml @ 21 mls/hr DAILY IV Last administered on 08/24/18 14:14; Admin Dose 21 MLS/HR; Start 08/24/18 at 14:00 Insulin Aspart (Novolog Insulin Pen) (Adult SC Insulin - Mild Algorithm)... Q4 SC ; Start 08/24/18 at 01:00 Piperacillin Sod/ Tazobactam Sod 100 ml @ 200 mls/hr Q8 IVPB Last administered on 08/24/18 14:08; Admin Dose 200 MLS/HR; Start 08/24/18 at 14:00 Total Parenteral Nutrition 1,000 ml @ 65 mls/hr [id number] IV ; Start 08/24/18 at 16:00 TU CARTER Aug 24, 2018 16:13
[2018-08-24] MEDS: TPN 1,000 ML IV SCH (17:31)
[2018-08-24 19:55] VITALS: BP 99/55; PULSE 98; RESP 18
[2018-08-25 02:00] VITALS: BP 98/52; PULSE 92; RESP 18
[2018-08-25] MEDS: ACCU-CHEK XX SCH ×7 (02:00→21:00)
[2018-08-25] MEDS: Insulin NOVOLOG SS MILD Algorithm (NPO/TPN/ENTERAL FEEDS) SC SCH ×6 (02:00→21:44)
[2018-08-25] MEDS: LEVOTHYROXINE 50 MCG TAB PO SCH (06:40)
[2018-08-25] MEDS: PIPER-TAZO 3.375 GM IV (PMX) 100 ML IVPB SCH ×3 (06:40→21:44)
[2018-08-25 08:06] VITALS: BP 107/59; PULSE 94; RESP 18
[2018-08-25] MEDS: SEVELAMER CARBONATE 0.8 GM PKT PO SCH (08:30)
[2018-08-25] MEDS: FAMOTIDINE 20 MG TAB PO SCH (08:30)
[2018-08-25] MEDS: CHOLECALCIFEROL 1,000 UNIT TAB PO SCH (08:30)
[2018-08-25] MEDS: FOLIC ACID 1 MG TAB PO SCH (08:31)
[2018-08-25] MEDS: APIXABAN 5 MG TABLET PO SCH ×2 (08:31→21:44)
[2018-08-25] MEDS: FAT EMULSION 20% 250 ML IV SCH (08:32)
[2018-08-25] MEDS: DOCUSATE SODIUM 100 MG CAP PO SCH (08:32)
[2018-08-25] MEDS: TPN 1,000 ML IV SCH ×2 (08:32→23:34)
[2018-08-25] MEDS: HYDROCODONE/APAP (5/325) TAB GTB PRN (08:32)
[2018-08-25] MEDS: INSULIN GLARGINE [LANTus] (100 UNITS/ML) SYG SC SCH (08:35)
[2018-08-25] MEDS: BALSAM PERU/CASTOR OIL 60 GM TUBE TOP SCH ×2 (08:36→21:45)
--- NOTE | 2018-08-25 08:59 | PN ---
Date/Time of Note Date/Time of Note DATE: 08/25/18 TIME: 08:59 Assessment/Plan VTE Prophylaxis Risk score (from Nsg)>0 risk: 15 SCD applied (from Nsg): Yes Pharmacological prophylaxis: apixaban Lines/Catheters IV Catheter Type (from Nrsg): Horacio cath Urinary Cath still in place: No Assessment/Plan Assessment/Plan 1. 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 patient kept NPO and on TPN at this time - Dr. Meneses/Jimbo on board and appreciate consultation - GI on board and appreciate recommendations. 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 Will need 36 months of adjuvant therapy for GIST tumor once abdominal wounds healed but no further intervention for adenocarcinoma - Cardiology consultation appreciated 2. End-stage renal disease on HD - Nephrology on board for HD management and appreciate recommendations - clogged fistula catheter (HeRO), consulted Dr. Coelho for recs as he is patient's vascular surgeon, recommended Horacio for now until we can fully anticoagulate. Follow as outpatient. On Eliquis and tolerating 3. GI bleed 2/2 to above mass - resolved 4. Arm swelling - Ultrasound showed right brachial DVT as well as thrombosis of the left cephalic vein. Patient's midline on his right arm is the likely culprit for the DVT on his right brachial vein. - dialysis catheter in left arm clotted for now, no Cathflo due to recent surgery per vascular surgery - monitor, warm compresses. - Patient is likely an hypercoagulable state due to his carcinoma and started on Eliquis 5. Diabetes - A1c noted - counseled about importance of diet choices and glucose control - Continue Lantus and ISS. TPN to be adjusted given persistence of elevated glucose 6. Esophagitis - Continue PPI 7. Hypothyroidism - Continue home Synthroid 8. Nonischemic CM - pacer in place - Chronic per outpatient [facility] 9. Mild acute on chronic systolic HF - fluid removal during HD 10. 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 and remains NPO. Output decreasing - Continue on TPN at this time Result Diagram: 08/25/18 0502 08/25/18 0502 Results 24hrs Laboratory Tests Test 08/24/18 12:38 08/24/18 17:29 08/24/18 21:40 08/24/18 22:20 Bedside Glucose 120 96 225 H 214 Test 08/25/18 03:54 08/25/18 05:02 08/25/18 08:29 Bedside Glucose 312 H 362 H White Blood Count 7.2 # Red Blood Count 3.27 L Hemoglobin 9.5 L Hematocrit 30.9 L Mean Corpuscular 94.5 Volume Mean Corpuscular 29.1 Hemoglobin Mean Corpuscular 30.7 L Hemoglobin Concent Red Cell Distribution 16.0 H Width Platelet Count 100 L Mean Platelet Volume 13.0 H Immature Granulocytes 2.100 H % Neutrophils % Lymphocytes % Monocytes % Eosinophils % Basophils % Nucleated Red Blood 0.0 Cells % Immature Granulocytes 0.150 H # Neutrophils # Lymphocytes # Monocytes # Eosinophils # Basophils # Nucleated Red Blood Cells # Sodium Level 137 Potassium Level 5.3 H Chloride Level 101 Carbon Dioxide Level 22 Anion Gap 14 H Blood Urea Nitrogen 49 H Creatinine 4.16 H Est Glomerular Filtrat Rate mL/min Glucose Level 331 H Calcium Level 8.7 Phosphorus Level 3.8 Magnesium Level 2.2 Albumin 2.2 L Subjective 24 Hr Interval Summary Free Text/Dictation Patient more awake this am and requesting coke to drink. Has some mild abdominal discomfort but denies any nausea or vomiting. Exam/Review of Systems Exam Vitals Vital Signs Date Temp Pulse Resp B/P (MAP) Pulse Ox O2 O2 Flow FiO2 Time Delivery Rate 08/25/18 97.7 94 18 107/59 95 Nasal 08:06 (75) Cannula 08/24/18 2.0 20:00 Intake and Output 08/24/18 08/24/18 08/25/18 1515:00 23:00 07:00 IntakeIntake Total 100 ml 190 ml 908 ml OutputOutput Total 100 ml 445 ml 150 ml BalanceBalance 0 ml -255 ml 758 ml Exam General: Patient is laying in bed. no acute distress. answering questions Respiratory: Clear to auscultation bilaterally. no wheezing or rhonchi Cardiovascular: regular rate and rhythm, no obvious murmurs Gastrointestinal: soft, mildly tender, fistula appreciated and clean around incision site. ostomy bag in place. nondistended, no guarding Neurological: Moves all extremities spontaneously Skin: incision site clean and dry Results Results 24hrs Laboratory Tests Test 08/24/18 12:38 08/24/18 17:29 08/24/18 21:40 08/24/18 22:20 Bedside Glucose 120 96 225 H 214 Test 08/25/18 03:54 08/25/18 05:02 08/25/18 08:29 Bedside Glucose 312 H 362 H White Blood Count 7.2 # Red Blood Count 3.27 L Hemoglobin 9.5 L Hematocrit 30.9 L Mean Corpuscular 94.5 Volume Mean Corpuscular 29.1 Hemoglobin Mean Corpuscular 30.7 L Hemoglobin Concent Red Cell Distribution 16.0 H Width Platelet Count 100 L Mean Platelet Volume 13.0 H Immature Granulocytes 2.100 H % Neutrophils % Lymphocytes % Monocytes % Eosinophils % Basophils % Nucleated Red Blood 0.0 Cells % Immature Granulocytes 0.150 H # Neutrophils # Lymphocytes # Monocytes # Eosinophils # Basophils # Nucleated Red Blood Cells # Sodium Level 137 Potassium Level 5.3 H Chloride Level 101 Carbon Dioxide Level 22 Anion Gap 14 H Blood Urea Nitrogen 49 H Creatinine 4.16 H Est Glomerular Filtrat Rate mL/min Glucose Level 331 H Calcium Level 8.7 Phosphorus Level 3.8 Magnesium Level 2.2 Albumin 2.2 L Medications Medication Current Medications Ondansetron HCl (Zofran Inj) 4 mg Q6H PRN IV NAUSEA/VOMITING Last administered on 08/19/18at 12:55; Admin Dose 4 MG; Start 08/02/18 at 13:00 Diagnostic Test (Pha) (Accu-Chek) 1 ea 02 XX Last administered on 08/22/18at 02:08; Admin Dose 1 EA; Start 08/03/18 at 02:00 Glucose (Glutose) 15 gm Q15M PRN PO DECREASED GLUCOSE; Start 08/02/18 at 13:30 Glucose (Glutose) 22.5 gm Q15M PRN PO DECREASED GLUCOSE; Start 08/02/18 at 13:30 Dextrose (D50w Syringe) 25 ml Q15M PRN IV DECREASED GLUCOSE Last administered on 08/19/18at 02:02; Admin Dose 25 ML; Start 08/02/18 at 13:30 Dextrose (D50w Syringe) 50 ml Q15M PRN IV DECREASED GLUCOSE; Start 08/02/18 at 13:30 Glucagon (Glucagen) 1 mg Q15M PRN IM DECREASED GLUCOSE; Start 08/02/18 at 13:30 Glucose (Glutose) 15 gm Q15M PRN BUCCAL DECREASED GLUCOSE; Start 08/02/18 at 13:30 Cholecalciferol (Vitamin D) 1,000 unit DAILY PO Last administered on 08/25/18 08:30; Admin Dose 1,000 UNIT; Start 08/03/18 at 09:00 Folic Acid (Folic Acid) 1 mg DAILY PO Last administered on 08/25/18 08:31; Admin Dose 1 MG; Start 08/03/18 at 09:00 Sevelamer Carbonate (Renvela) 0.8 gm AC MEALS PO Last administered on 08/25/18 08:30; Admin Dose 0.8 GM; Start 08/02/18 at 17:30 Midodrine (Proamatine) 5 mg ON DIALYSIS DAYS PO Last administered on 08/23/18 09:33; Admin Dose 5 MG; Start 08/02/18 at 18:00 Albumin Human 100 ml @ 100 mls/hr WITH DIALYSIS PRN IV SBP <90 DURING DIALYSIS Last administered on 08/23/18 10:29; Admin Dose 100 MLS/HR; Start 08/07/18 at 10:00 Gabapentin (Neurontin) 100 mg DAILY PO Last administered on 08/13/18 09:07; Admin Dose 100 MG; Start 08/07/18 at 11:30; Status Hold Phenol (Cepastat Lozenge) 1 lozenge Q1H PRN MT COUGH Last administered on 08/08/18 02:34; Admin Dose 1 LOZENGE; Start 08/07/18 at 23:00 Heparin Sodium (Porcine) (Heparin (1000 Units/ml)) 6,100 unit AFTER DIALYSIS CATHETER Last administered on 08/23/18 13:53; Admin Dose 6,100 UNIT; Start 08/16/18 at 22:30 Acetaminophen (Tylenol Tab) 650 mg Q6H PRN PO MILD PAIN(1-3)OR ELEVATED TEMP Last administered on 08/18/18 05:59; Admin Dose 650 MG; Start 08/18/18 at 05:30 Levothyroxine Sodium (Synthroid) 50 mcg DAILY@06 PO Last administered on 08/25/18 06:40; Admin Dose 50 MCG; Start 08/20/18 at 06:00 Insulin Glargine (Lantus) 12 units DAILY@0800 SC Last administered on 08/25/18 08:35; Admin Dose 12 UNITS; Start 08/20/18 at 08:00 Docusate Sodium (Colace) 100 mg DAILY PO Last administered on 08/22/18 08:46; Admin Dose 100 MG; Start 08/20/18 at 09:00 Acetaminophen/ Hydrocodone Bitart ([place] (5/325)) 1 tab Q4H PRN GTB MODERATE PAIN LEVEL 4-6 Last administered on 08/25/18 08:32; Admin Dose 1 TAB; Start 08/20/18 at 07:30 Famotidine (Pepcid) 20 mg DAILY PO Last administered on 08/25/18 08:30; Admin Dose 20 MG; Start 08/21/18 at 09:00 Morphine Sulfate (morphine) 1 mg Q4H PRN IV SEVERE PAIN LEVEL 7-10 Last administered on 08/22/18 07:56; Admin Dose 1 MG; Start 08/20/18 at 23:45 Apixaban (Eliquis) 2.5 mg BID PO Last administered on 08/25/18 08:31; Admin Dose 2.5 MG; Start 08/21/18 at 09:30 Diagnostic Test (Pha) (Accu-Chek) 1 ea Q4 XX Last administered on 08/25/18 08:36; Admin Dose 1 EA; Start 08/23/18 at 21:00 Fat Emulsion Intravenous 250 ml @ 21 mls/hr DAILY IV Last administered on 08/25/18 08:32; Admin Dose 21 MLS/HR; Start 08/24/18 at 14:00 Insulin Aspart (Novolog Insulin Pen) (Adult SC Insulin - Mild Algorithm)... Q4 SC Last administered on 08/25/18 08:34; Admin Dose 7 UNIT; Start 08/24/18 at 01:00 Piperacillin Sod/ Tazobactam Sod 100 ml @ 200 mls/hr Q8 IVPB Last administered on 08/25/18 06:40; Admin Dose 200 MLS/HR; Start 08/24/18 at 14:00 Total Parenteral Nutrition 1,000 ml @ 65 mls/hr [id number] IV Last administered on 3/10/19at 08:32; Admin Dose 65 MLS/HR; Start 08/24/18 at 16:00 JO HURST MD Aug 25, 2018 08:59
--- NOTE | 2018-08-25 09:39 | PN ---
Date/Time of Note Date/Time of Note DATE: 08/25/18 TIME: 09:35 Assessment/Plan Lines/Catheters IV Catheter Type (from [facility]): Horacio cath [facility] in Place (from [facility]): No Assessment/Plan Chief Complaint/Hosp Course Mr. Buck is a 78 y/o with ESRD on dialysis who underwent a subtotal colectomy for an ascending colon adenocarcinoma and a GIST tumor in the distal transverse colon invading into the proximal jejunum 11 days ago. 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 Though the output seems to be slowing down, he does have lower abdominal tenderness this morning. He is hemodynamically stable and is now NPO on TPN. His WBC is normal and he is afebrile. Will continue NPO/TPN for now. Subjective 24 Hr Interval Summary Mr. Buck is more alert today. He denies nausea and reports that he is "hungry." He does report lower abdominal pain as well. Feeding: NPO Exam/Review of Systems Vital Signs Vitals Vital Signs Date Temp Pulse Resp B/P (MAP) Pulse Ox O2 O2 Flow FiO2 Time Delivery Rate 08/25/18 97.7 94 18 107/59 95 Nasal 08:06 (75) Cannula 08/24/18 2.0 20:00 Intake and Output 08/24/18 08/24/18 08/25/18 1515:00 23:00 07:00 IntakeIntake Total 100 ml 190 ml 908 ml OutputOutput Total 100 ml 445 ml 150 ml BalanceBalance 0 ml -255 ml 758 ml Exam Gastrointestinal: soft, surgical scars (midline incision is open in it's lower half with loose brown enteral contents leaking out), tender (lower abdominal quadrants are tender today) Results Result Diagram: 08/25/18 0502 08/25/18 0502 CASSIE MARMOLEJO MD Aug 25, 2018 09:39
[2018-08-25] MEDS: KETOROLAC 15 MG INJ IV PRN (13:34)
[2018-08-25 14:25] VITALS: BP 105/55; PULSE 91; RESP 18
--- NOTE | 2018-08-25 16:10 | CONS ---
Assessment/Plan Assessment/Plan Assessment/Plan (Daily) #Adenocarcinoma of ascending Colon ca -final pathology report reveals 2 separate masses with different pathology results. -the ascending colon mass is consistent with a Moderately-differentiated adenocarcinoma, invading through the muscularis propria, with all 0/18 negative for disease, 3.6 x 2.8 x 1.1 cm. -the splenic flexture mass is 10.5 x 9.0 x 7.0 cm.and consistent with a high grade GIST tumor -CT does not reveal evidence of distant mets -in terms of the adenocarcinoma, pt does not need adjuvant chemotherapy given this was a stage IIA tumor. - on TPN today #GIST -pt is categorized as having a high risk GIST given the tumor size of > 10cm and mitotic rate of 59 mitoses/50 hpf. 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 However we need to see if he is positive for KIT exon 9 mutation which may need higher doses of imatinib (eg 800mg q day vs 400mg q day) - Regardless, given he does have the KIT mutation he would He would however benefit adjuvant Gleevec for at least 36 mo #s/p Surgical resection -continue to ambulate and advance diet as tolerated -management per surgery #ESRD -continue HD per renal #Diabetes - A1c noted - Continue Lantus and ISS #Hypothyroidism - Continue Synthroid #Nonischemic CM - pacer in place - nonchronic Further recommendations based on clinical course.Patient seen in collaboration with Dr Hodges Consultation Date/Type/Reason Admit Date/Time Aug 02, 2018 at 10:57 Initial Consult Date 08/09/18 Type of Consult oncology Reason for Consultation COLON ADENOCARCINOMA Requesting Provider: DULCE GALINDO Date/Time of Note DATE: 08/25/18 TIME: 16:10 24 HR Interval Summary Free Text/Dictation - resting in bed - seems comfortable -tolerates TPN today. -no new issued reported last night dw staff Constitutional: requiring IVF Exam/Review of Systems Exam Vitals Vital Signs Date Temp Pulse Resp B/P (MAP) Pulse Ox O2 O2 Flow FiO2 Time Delivery Rate 08/25/18 97.7 94 18 107/59 95 Nasal 08:06 (75) Cannula 08/25/18 2.0 08:00 Intake and Output 08/24/18 08/24/18 08/25/18 1515:00 23:00 07:00 IntakeIntake Total 100 ml 190 ml 908 ml OutputOutput Total 100 ml 445 ml 150 ml BalanceBalance 0 ml -255 ml 758 ml Constitutional: alert, well developed, frail Psych: nl mood/affect Head: atraumatic Eyes: nl lids, nl sclera ENMT: nl external ears & nose Neck: non-tender Respiratory: diminished breath sounds (at bases bilaterally) Cardiovascular: nl pulses, other (s1s2) Gastrointestinal: soft, tender ( fistula present, clean around incision site; ostomy bag intact, no guarding) Musculoskeletal: muscle weakness, range of motion Extremities: edema Neurological: other (alert/responsie) Lymph: nontender Results Result Diagram: 08/25/18 0502 08/25/18 0502 Results 24hrs Laboratory Tests Test 08/24/18 17:29 08/24/18 21:40 08/24/18 22:20 08/25/18 03:54 Bedside Glucose 96 225 H 214 312 H Test 08/25/18 05:02 08/25/18 08:29 08/25/18 13:33 White Blood Count 7.2 # Red Blood Count 3.27 L Hemoglobin 9.5 L Hematocrit 30.9 L Mean Corpuscular 94.5 Volume Mean Corpuscular 29.1 Hemoglobin Mean Corpuscular 30.7 L Hemoglobin Concent Red Cell 16.0 H Distribution Width Platelet Count 100 L Mean Platelet Volume 13.0 H Immature 2.100 H Granulocytes % Neutrophils % Segmented 40 Neutrophils % (Manual) Band Neutrophils % 40 H (Manual) Lymphocytes % Lymphocytes % 3 L (Manual) Monocytes % Monocytes % (Manual) 11 Eosinophils % Eosinophils % 2 (Manual) Basophils % Metamyelocytes % 1 H (manual) Myelocytes % 1 H (Manual) Plasma Cells % 1 (manual) Nucleated Red Blood 1 H Cells % Immature 0.150 H Granulocytes # Neutrophils # Neutrophils # 3.1 (Manual) Band Neutrophils # 2.8 H Lymphocytes (Manual) 0.2 L Lymphocytes # Monocytes # Monocytes # (Manual) 0.7 Eosinophils # Basophils # Metamyelocytes # 0.0 Myelocytes # 0.0 Plasma Cells # 0.0 (manual) Nucleated Red Blood Cells # Toxic Granulation 2+ Dohle Bodies 1+ Platelet Estimate DECREASED Giant Platelets 1 H Platelet Morphology @See below Comment Polychromasia 2+ Anisocytosis 2+ Ovalocytes 1+ Sodium Level 137 Potassium Level 5.3 H Chloride Level 101 Carbon Dioxide Level 22 Anion Gap 14 H Blood Urea Nitrogen 49 H Creatinine 4.16 H Est Glomerular Filtrat Rate mL/min Glucose Level 331 H Calcium Level 8.7 Phosphorus Level 3.8 Magnesium Level 2.2 Albumin 2.2 L Bedside Glucose 362 H 359 H Medications Medication Current Medications Ondansetron HCl (Zofran Inj) 4 mg Q6H PRN IV NAUSEA/VOMITING Last administered on 08/19/18 12:55; Admin Dose 4 MG; Start 08/02/18 at 13:00 Diagnostic Test (Pha) (Accu-Chek) 1 ea 02 XX Last administered on 08/22/18 02:08; Admin Dose 1 EA; Start 08/03/18 at 02:00 Glucose (Glutose) 15 gm Q15M PRN PO DECREASED GLUCOSE; Start 08/02/18 at 13:30 Glucose (Glutose) 22.5 gm Q15M PRN PO DECREASED GLUCOSE; Start 08/02/18 at 13:30 Dextrose (D50w Syringe) 25 ml Q15M PRN IV DECREASED GLUCOSE Last administered on 08/19/18 02:02; Admin Dose 25 ML; Start 08/02/18 at 13:30 Dextrose (D50w Syringe) 50 ml Q15M PRN IV DECREASED GLUCOSE; Start 08/02/18 at 13:30 Glucagon (Glucagen) 1 mg Q15M PRN IM DECREASED GLUCOSE; Start 08/02/18 at 13:30 Glucose (Glutose) 15 gm Q15M PRN BUCCAL DECREASED GLUCOSE; Start 08/02/18 at 13:30 Cholecalciferol (Vitamin D) 1,000 unit DAILY PO Last administered on 08/25/18 08:30; Admin Dose 1,000 UNIT; Start 08/03/18 at 09:00 Folic Acid (Folic Acid) 1 mg DAILY PO Last administered on 08/25/18 08:31; Admin Dose 1 MG; Start 08/03/18 at 09:00 Sevelamer Carbonate (Renvela) 0.8 gm AC MEALS PO Last administered on 08/25/18 08:30; Admin Dose 0.8 GM; Start 08/02/18 at 17:30; Status Hold Midodrine (Proamatine) 5 mg ON DIALYSIS DAYS PO Last administered on 08/23/18 09:33; Admin Dose 5 MG; Start 08/02/18 at 18:00 Albumin Human 100 ml @ 100 mls/hr WITH DIALYSIS PRN IV SBP <90 DURING DIALYSIS Last administered on 08/23/18 10:29; Admin Dose 100 MLS/HR; Start 08/07/18 at 10:00 Gabapentin (Neurontin) 100 mg DAILY PO Last administered on 08/13/18 09:07; Admin Dose 100 MG; Start 08/07/18 at 11:30; Status Hold Phenol (Cepastat Lozenge) 1 lozenge Q1H PRN MT COUGH Last administered on 08/08/18 02:34; Admin Dose 1 LOZENGE; Start 08/07/18 at 23:00 Heparin Sodium (Porcine) (Heparin (1000 Units/ml)) 6,100 unit AFTER DIALYSIS CATHETER Last administered on 08/23/18 13:53; Admin Dose 6,100 UNIT; Start 08/16/18 at 22:30 Acetaminophen (Tylenol Tab) 650 mg Q6H PRN PO MILD PAIN(1-3)OR ELEVATED TEMP Last administered on 08/18/18 05:59; Admin Dose 650 MG; Start 08/18/18 at 05:30 Levothyroxine Sodium (Synthroid) 50 mcg DAILY@06 PO Last administered on 08/25/18 06:40; Admin Dose 50 MCG; Start 08/20/18 at 06:00 Docusate Sodium (Colace) 100 mg DAILY PO Last administered on 08/22/18 08:46; Admin Dose 100 MG; Start 08/20/18 at 09:00 Famotidine (Pepcid) 20 mg DAILY PO Last administered on 08/25/18 08:30; Admin Dose 20 MG; Start 08/21/18 at 09:00 Apixaban (Eliquis) 2.5 mg BID PO Last administered on 08/25/18 08:31; Admin Dose 2.5 MG; Start 08/21/18 at 09:30 Diagnostic Test (Pha) (Accu-Chek) 1 ea Q4 XX Last administered on 08/25/18 13:39; Admin Dose 1 EA; Start 08/23/18 at 21:00 Fat Emulsion Intravenous 250 ml @ 21 mls/hr DAILY IV Last administered on 08/25/18 08:32; Admin Dose 21 MLS/HR; Start 08/24/18 at 14:00 Insulin Aspart (Novolog Insulin Pen) (Adult SC Insulin - Mild Algorithm)... Q4 SC Last administered on 08/25/18 13:39; Admin Dose 7 UNIT; Start 08/24/18 at 01:00 Piperacillin Sod/ Tazobactam Sod 100 ml @ 200 mls/hr Q8 IVPB Last administered on 08/25/18 13:34; Admin Dose 200 MLS/HR; Start 08/24/18 at 14:00 Total Parenteral Nutrition 1,000 ml @ 65 mls/hr [id number] IV Last administered on 08/25/18 08:32; Admin Dose 65 MLS/HR; Start 08/24/18 at 16:00 Insulin Glargine (Lantus) 15 units DAILY@0800 SC ; Start 08/26/18 at 08:00 Ketorolac Tromethamine (Toradol) 15 mg Q6H PRN IV PAIN Last administered on 08/25/18 13:34; Admin Dose 15 MG; Start 08/25/18 at 12:00; Stop 08/28/18 at 11:59 SHAMIR FRANKS Aug 25, 2018 16:10
--- NOTE | 2018-08-25 17:38 | CONS ---
Assessment/Plan Assessment/Plan Hospital Course (Demo Recall) 1 End-stage renal disease, on hemodialysis, mwf with mild CHF 2. 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 Hypotension. On Midodrine at home 4. History of congestive heart failure.1 End-stage renal disease, on hemodialysis,mwf with mild CHF 5. Hypercholesterolemia. 6. Hx of total hip replacement. 7. leucocytosis, off pressor and trending down leukocytosis 8. Hypoglycemia. 9. Macrocytic hypochromic Anemia mixed etiology, recent blood loss and 2/2 kidney disease 10. 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% 12 Clotted left arm AV graft 13 hyperkalemia plan hd Consultation Date/Type/Reason Admit Date/Time Aug 02, 2018 at 10:57 Initial Consult Date 08/03/18 Type of Consult RENAL F/U Requesting Provider: DULCE GALINDO Date/Time of Note DATE: 08/25/18 TIME: 17:37 24 HR Interval Summary Constitutional: no complaints; No chills, No diaphoresis Exam/Review of Systems Exam Vitals Vital Signs Date Temp Pulse Resp B/P (MAP) Pulse Ox O2 O2 Flow FiO2 Time Delivery Rate 08/25/18 98.8 91 18 105/55 96 Nasal 14:25 (72) Cannula 08/25/18 2.0 08:00 Intake and Output 08/24/18 08/24/18 08/25/18 1515:00 23:00 07:00 IntakeIntake Total 100 ml 190 ml 908 ml OutputOutput Total 100 ml 445 ml 150 ml BalanceBalance 0 ml -255 ml 758 ml Neck: supple Respiratory: clear to auscultation Cardiovascular: regular rate and rhythm Gastrointestinal: soft Extremities: edema (+) Results Result Diagram: 08/25/18 0502 08/25/18 0502 Results 24hrs Laboratory Tests Test 08/24/18 21:40 08/24/18 22:20 08/25/18 03:54 08/25/18 05:02 Bedside Glucose 225 H 214 312 H White Blood Count 7.2 # Red Blood Count 3.27 L Hemoglobin 9.5 L Hematocrit 30.9 L Mean Corpuscular 94.5 Volume Mean Corpuscular 29.1 Hemoglobin Mean Corpuscular 30.7 L Hemoglobin Concent Red Cell 16.0 H Distribution Width Platelet Count 100 L Mean Platelet Volume 13.0 H Immature 2.100 H Granulocytes % Neutrophils % Segmented 40 Neutrophils % (Manual) Band Neutrophils % 40 H (Manual) Lymphocytes % Lymphocytes % 3 L (Manual) Monocytes % Monocytes % (Manual) 11 Eosinophils % Eosinophils % 2 (Manual) Basophils % Metamyelocytes % 1 H (manual) Myelocytes % 1 H (Manual) Plasma Cells % 1 (manual) Nucleated Red Blood 1 H Cells % Immature 0.150 H Granulocytes # Neutrophils # Neutrophils # 3.1 (Manual) Band Neutrophils # 2.8 H Lymphocytes (Manual) 0.2 L Lymphocytes # Monocytes # Monocytes # (Manual) 0.7 Eosinophils # Basophils # Metamyelocytes # 0.0 Myelocytes # 0.0 Plasma Cells # 0.0 (manual) Nucleated Red Blood Cells # Toxic Granulation 2+ Dohle Bodies 1+ Platelet Estimate DECREASED Giant Platelets 1 H Platelet Morphology @See below Comment Polychromasia 2+ Anisocytosis 2+ Ovalocytes 1+ Sodium Level 137 Potassium Level 5.3 H Chloride Level 101 Carbon Dioxide Level 22 Anion Gap 14 H Blood Urea Nitrogen 49 H Creatinine 4.16 H Est Glomerular Filtrat Rate mL/min Glucose Level 331 H Calcium Level 8.7 Phosphorus Level 3.8 Magnesium Level 2.2 Albumin 2.2 L Test 08/25/18 08:29 08/25/18 13:33 08/25/18 17:32 Bedside Glucose 362 H 359 H 364 H Medications Medication Current Medications Ondansetron HCl (Zofran Inj) 4 mg Q6H PRN IV NAUSEA/VOMITING Last administered on 08/19/18at 12:55; Admin Dose 4 MG; Start 08/02/18 at 13:00 Diagnostic Test (Pha) (Accu-Chek) 1 ea 02 XX Last administered on 08/22/18at 02:08; Admin Dose 1 EA; Start 08/03/18 at 02:00 Glucose (Glutose) 15 gm Q15M PRN PO DECREASED GLUCOSE; Start 08/02/18 at 13:30 Glucose (Glutose) 22.5 gm Q15M PRN PO DECREASED GLUCOSE; Start 08/02/18 at 13:30 Dextrose (D50w Syringe) 25 ml Q15M PRN IV DECREASED GLUCOSE Last administered on 3/4/19at 02:02; Admin Dose 25 ML; Start 08/02/18 at 13:30 Dextrose (D50w Syringe) 50 ml Q15M PRN IV DECREASED GLUCOSE; Start 08/02/18 at 13:30 Glucagon (Glucagen) 1 mg Q15M PRN IM DECREASED GLUCOSE; Start 08/02/18 at 13:30 Glucose (Glutose) 15 gm Q15M PRN BUCCAL DECREASED GLUCOSE; Start 08/02/18 at 13:30 Cholecalciferol (Vitamin D) 1,000 unit DAILY PO Last administered on 08/25/18 08:30; Admin Dose 1,000 UNIT; Start 08/03/18 at 09:00 Folic Acid (Folic Acid) 1 mg DAILY PO Last administered on 08/25/18 08:31; Admin Dose 1 MG; Start 08/03/18 at 09:00 Sevelamer Carbonate (Renvela) 0.8 gm AC MEALS PO Last administered on 08/25/18 08:30; Admin Dose 0.8 GM; Start 08/02/18 at 17:30; Status Hold Midodrine (Proamatine) 5 mg ON DIALYSIS DAYS PO Last administered on 08/23/18 09:33; Admin Dose 5 MG; Start 08/02/18 at 18:00 Albumin Human 100 ml @ 100 mls/hr WITH DIALYSIS PRN IV SBP <90 DURING DIALYSIS Last administered on 08/23/18 10:29; Admin Dose 100 MLS/HR; Start 08/07/18 at 10:00 Gabapentin (Neurontin) 100 mg DAILY PO Last administered on 08/13/18 09:07; Admin Dose 100 MG; Start 08/07/18 at 11:30; Status Hold Phenol (Cepastat Lozenge) 1 lozenge Q1H PRN MT COUGH Last administered on 08/08/18 02:34; Admin Dose 1 LOZENGE; Start 08/07/18 at 23:00 Heparin Sodium (Porcine) (Heparin (1000 Units/ml)) 6,100 unit AFTER DIALYSIS CATHETER Last administered on 08/23/18 13:53; Admin Dose 6,100 UNIT; Start 08/16/18 at 22:30 Acetaminophen (Tylenol Tab) 650 mg Q6H PRN PO MILD PAIN(1-3)OR ELEVATED TEMP Last administered on 08/18/18 05:59; Admin Dose 650 MG; Start 08/18/18 at 05:30 Levothyroxine Sodium (Synthroid) 50 mcg DAILY@06 PO Last administered on 08/25/18 06:40; Admin Dose 50 MCG; Start 08/20/18 at 06:00 Docusate Sodium (Colace) 100 mg DAILY PO Last administered on 08/22/18 08:46; Admin Dose 100 MG; Start 08/20/18 at 09:00 Famotidine (Pepcid) 20 mg DAILY PO Last administered on 08/25/18 08:30; Admin Dose 20 MG; Start 08/21/18 at 09:00 Apixaban (Eliquis) 2.5 mg BID PO Last administered on 08/25/18 08:31; Admin Dose 2.5 MG; Start 08/21/18 at 09:30 Diagnostic Test (Pha) (Accu-Chek) 1 ea Q4 XX Last administered on 08/25/18 17:34; Admin Dose 1 EA; Start 08/23/18 at 21:00 Fat Emulsion Intravenous 250 ml @ 21 mls/hr DAILY IV Last administered on 08/25/18 08:32; Admin Dose 21 MLS/HR; Start 08/24/18 at 14:00 Insulin Aspart (Novolog Insulin Pen) (Adult SC Insulin - Mild Algorithm)... Q4 SC Last administered on 08/25/18 17:33; Admin Dose 7 UNIT; Start 08/24/18 at 01:00 Piperacillin Sod/ Tazobactam Sod 100 ml @ 200 mls/hr Q8 IVPB Last administered on 08/25/18 13:34; Admin Dose 200 MLS/HR; Start 08/24/18 at 14:00 Total Parenteral Nutrition 1,000 ml @ 65 mls/hr [id number] IV Last administered on 08/25/18 08:32; Admin Dose 65 MLS/HR; Start 08/24/18 at 16:00 Insulin Glargine (Lantus) 15 units DAILY@0800 SC ; Start 08/26/18 at 08:00 Ketorolac Tromethamine (Toradol) 15 mg Q6H PRN IV PAIN Last administered on 08/25/18 13:34; Admin Dose 15 MG; Start 3/10/19 at 12:00; Stop 08/28/18 at 11:59 Sodium Polystyrene Sulfonate (Kayexalate) 15 gm ONCE ONCE PO ; Start 08/25/18 at 18:00; Stop 08/25/18 at 18:01; Status LAMIN WATTS MD Aug 25, 2018 17:38
[2018-08-25] MEDS ORDERED: NA POLYST SULFON 15 GM/60 ML BTL PO ONE (18:30)
[2018-08-25 20:07] VITALS: BP 94/55; PULSE 99; RESP 18
[2018-08-26] VITALS (20 sets, daily range): BP systolic 78–147; BP diastolic 48–69; PULSE 84–101; RESP 17–20
[2018-08-26] MEDS: ACCU-CHEK XX SCH ×7 (01:00→21:00)
[2018-08-26] MEDS: Insulin NOVOLOG SS MILD Algorithm (NPO/TPN/ENTERAL FEEDS) SC SCH ×6 (01:37→21:01)
[2018-08-26] MEDS: LEVOTHYROXINE 50 MCG TAB PO SCH (05:58)
[2018-08-26] MEDS: PIPER-TAZO 3.375 GM IV (PMX) 100 ML IVPB SCH ×3 (05:58→23:26)
--- NOTE | 2018-08-26 07:46 | PN ---
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 Other findings at the time of surgery include mild to moderate ascites, and fine, nodularity of the liver - cirrhosis?-, and inflammation extending from the transverse colon mesentary to the pancreas, which felt firm). Decision to have the next dialysis as per nephrology. 08/16/18 Pt is on O2 ( 2 l/min) , and on Levophed. He is due to have dialysis this am at 0800. Stable but still critical 08/19/18 Pt is w/o nausea, tolerating some liquids, and says he is passing some gas.Pt does not move well which was also the case pre-op but persists due to post op pain. 08/20/18 POD #6 doing well. Path shows T3N0 adenocarcinoma, and T4N0 GIST w/ 1 tumor implant 3 POD #8 Still confused, eats when prompted, not ambulating well 08/23/18 POD #9 Pt has an entero-cutaneous fistula. WBC is sl elevated from yesterday 08/26/18 POD #12 Stable fistula. Normal wbc, low albumin. TPN is in place Assessment/Plan The pt is stable. TPN is going. Need for ET/ Wound care to place appliance to provide better skin coverage. Will try 1 Imodium today to try and decrease stool production. Subjective 24 Hr Interval Summary Pt rested overnight. 900 cc of fistula output the last 24 hrs. Stable. Normal wbc. Abdominal pain is better. Minimal appetite. Albumin still 2.0. Mild confusion this am. Feeding: NPO Pain Control: well controlled Exam/Review of Systems Vital Signs Vitals Vital Signs Date Temp Pulse Resp B/P (MAP) Pulse Ox O2 O2 Flow FiO2 Time Delivery Rate 08/26/18 87 91/52 (65) 04:55 08/26/18 97.7 18 98 Nasal 02:09 Cannula 08/25/18 2.0 20:00 Intake and Output 08/25/18 08/25/18 08/26/18 1515:00 23:00 07:00 IntakeIntake Total 948 ml 865 ml 30 ml OutputOutput Total 700 ml 400 ml 500 ml BalanceBalance 248 ml 465 ml -470 ml Exam Constitutional: oriented (x2) Gastrointestinal: soft Results Result Diagram: 08/26/18 0502 08/26/18 0501 GONZÁLEZ MERIDA MD Aug 26, 2018 07:46
[2018-08-26] MEDS ORDERED: INSULIN GLARGINE [LANTus] (100 UNITS/ML) SYG SC SCH (08:00)
[2018-08-26] MEDS ORDERED: LOPERAMIDE 2 MG CAP PO ONE (08:00)
[2018-08-26] MEDS: MIDODRINE 5 MG TAB PO SCH (08:16)
[2018-08-26] MEDS: DOCUSATE SODIUM 100 MG CAP PO SCH (09:00)
[2018-08-26] MEDS: ALBUMIN HUMAN 25% 100 ML IV PRN (09:29)
--- NOTE | 2018-08-26 10:28 | CONS ---
Assessment/Plan Assessment/Plan Assessment/Plan (Daily) 1 End-stage renal disease, on hemodialysis, mwf with mild CHF MWF 2. 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 Hypotension. On Midodrine at home 4. History of congestive heart failure.1 End-stage renal disease, on hemodialysis,mwf with mild CHF 5. Hypercholesterolemia. 6. Hx of total hip replacement. 7. leucocytosis, off pressor and trending down leukocytosis 8. Hypoglycemia. 9. Macrocytic hypochromic Anemia mixed etiology, recent blood loss and 2/2 kidney disease 10. 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% 12 Clotted left arm AV graft now rt femoral permcath Assessment/Plan (Daily) - HD MWF, HD today - Midodrine on hd days - Entercutaneous fistula by surgeon> will be on TPN, pHARMACY TO ADJUST Electrolyes as HD pt, Recommended stricter control of blood sugars while on TPN - avoid narcotics - Renally Dose all meds - management on adenoca per onc> Adjuvant chemo for GIST - Pt will need f/u Dr Coelho for Herograft upon dc Consultation Date/Type/Reason Admit Date/Time Aug 02, 2018 at 10:57 Initial Consult Date 08/03/18 Requesting Provider: DULCE GALINDO Date/Time of Note DATE: 08/26/18 TIME: 10:26 24 HR Interval Summary Free Text/Dictation Intermittently confused. HD in progress Exam/Review of Systems Exam Vitals Vital Signs Date Temp Pulse Resp B/P (MAP) Pulse Ox O2 O2 Flow FiO2 Time Delivery Rate 08/26/18 Nasal 2.0 08:35 Cannula 08/26/18 87 91/52 (65) 04:55 08/26/18 97.7 18 98 02:09 Intake and Output 08/25/18 08/25/18 08/26/18 1414:59 22:59 06:59 IntakeIntake Total 948 ml 965 ml 1000 ml OutputOutput Total 700 ml 400 ml 500 ml BalanceBalance 248 ml 565 ml 500 ml Exam Awake alert sometimes follow commands Neck: supple Respiratory: clear to auscultation Cardiovascular: regular rate and rhythm Gastrointestinal: soft Extremities: edema (+) of the left arm On TPN Results Result Diagram: 08/26/18 0502 08/26/18 0501 Results 24hrs Laboratory Tests Test 08/25/18 13:33 08/25/18 17:32 08/25/18 21:40 08/26/18 01:27 Bedside Glucose 359 H 364 H 314 H 272 H Test 08/26/18 05:01 08/26/18 05:02 08/26/18 05:27 08/26/18 09:15 Sodium Level 135 Potassium Level 4.3 Chloride Level 100 Carbon Dioxide Level 22 Anion Gap 13 Blood Urea Nitrogen 65 H Creatinine 4.89 H Est Glomerular Filtrat Rate mL/min Glucose Level 232 H Calcium Level 9.1 Magnesium Level 2.1 Total Bilirubin 0.2 Direct Bilirubin 0.00 Indirect Bilirubin 0.2 Aspartate Amino 12 L Transf (AST/SGOT) Alanine 7 L Aminotransferase (AL T/SGPT) Alkaline Phosphatase 78 Total Protein 4.8 L Albumin 2.0 L Globulin 2.80 Albumin/Globulin 0.71 Ratio White Blood Count 10.1 # Red Blood Count 2.95 L Hemoglobin 8.7 L Hematocrit 27.8 L Mean Corpuscular 94.2 Volume Mean Corpuscular 29.5 Hemoglobin Mean Corpuscular 31.3 L Hemoglobin Concent Red Cell 16.0 H Distribution Width Platelet Count 68 #L Mean Platelet Volume 14.1 H Immature 2.300 H Granulocytes % Neutrophils % Segmented 24 L Neutrophils % (Manual) Band Neutrophils % 37 H (Manual) Lymphocytes % Lymphocytes % 17 (Manual) Reactive Lymphocytes 1 H % (Manual) Monocytes % Monocytes % (Manual) 13 H Eosinophils % Eosinophils % 7 (Manual) Basophils % Promyelocytes % 1 H (Manual) Nucleated Red Blood 0.0 Cells % Immature 0.230 H Granulocytes # Neutrophils # Neutrophils # 2.8 (Manual) Band Neutrophils # 3.7 H Lymphocytes (Manual) 1.7 Lymphocytes # Reactive Lymphocytes 0.1 H # Monocytes # Monocytes # (Manual) 1.3 H Eosinophils # Basophils # Promyelocytes # 0.1 H Nucleated Red Blood Cells # Platelet Estimate DECREASED Giant Platelets 3 H Polychromasia 2+ Poikilocytosis 1+ Anisocytosis 2+ Macrocytosis 1+ Spherocytes 1+ Bedside Glucose 229 H 233 H Medications Medication Current Medications Ondansetron HCl (Zofran Inj) 4 mg Q6H PRN IV NAUSEA/VOMITING Last administered on 08/19/18 12:55; Admin Dose 4 MG; Start 08/02/18 at 13:00 Diagnostic Test (Pha) (Accu-Chek) 1 ea 02 XX Last administered on 08/22/18 02:08; Admin Dose 1 EA; Start 08/03/18 at 02:00 Glucose (Glutose) 15 gm Q15M PRN PO DECREASED GLUCOSE; Start 08/02/18 at 13:30 Glucose (Glutose) 22.5 gm Q15M PRN PO DECREASED GLUCOSE; Start 08/02/18 at 13:30 Dextrose (D50w Syringe) 25 ml Q15M PRN IV DECREASED GLUCOSE Last administered on 08/19/18 02:02; Admin Dose 25 ML; Start 08/02/18 at 13:30 Dextrose (D50w Syringe) 50 ml Q15M PRN IV DECREASED GLUCOSE; Start 08/02/18 at 13:30 Glucagon (Glucagen) 1 mg Q15M PRN IM DECREASED GLUCOSE; Start 08/02/18 at 13:30 Glucose (Glutose) 15 gm Q15M PRN BUCCAL DECREASED GLUCOSE; Start 08/02/18 at 13:30 Cholecalciferol (Vitamin D) 1,000 unit DAILY PO Last administered on 08/25/18 08:30; Admin Dose 1,000 UNIT; Start 08/03/18 at 09:00 Folic Acid (Folic Acid) 1 mg DAILY PO Last administered on 08/25/18 08:31; Admin Dose 1 MG; Start 08/03/18 at 09:00 Sevelamer Carbonate (Renvela) 0.8 gm AC MEALS PO Last administered on 08/25/18 08:30; Admin Dose 0.8 GM; Start 08/02/18 at 17:30; Status Hold Midodrine (Proamatine) 5 mg ON DIALYSIS DAYS PO Last administered on 08/26/18 08:16; Admin Dose 5 MG; Start 08/02/18 at 18:00 Gabapentin (Neurontin) 100 mg DAILY PO Last administered on 08/13/18 09:07; Admin Dose 100 MG; Start 08/07/18 at 11:30; Status Hold Phenol (Cepastat Lozenge) 1 lozenge Q1H PRN MT COUGH Last administered on 2/21/19at 02:34; Admin Dose 1 LOZENGE; Start 08/07/18 at 23:00 Heparin Sodium (Porcine) (Heparin (1000 Units/ml)) 6,100 unit AFTER DIALYSIS CATHETER Last administered on 08/23/18 13:53; Admin Dose 6,100 UNIT; Start 08/16/18 at 22:30 Acetaminophen (Tylenol Tab) 650 mg Q6H PRN PO MILD PAIN(1-3)OR ELEVATED TEMP Last administered on 08/18/18 05:59; Admin Dose 650 MG; Start 08/18/18 at 05:30 Levothyroxine Sodium (Synthroid) 50 mcg DAILY@06 PO Last administered on 08/26/18 05:58; Admin Dose 50 MCG; Start 08/20/18 at 06:00 Docusate Sodium (Colace) 100 mg DAILY PO Last administered on 08/22/18 08:46; Admin Dose 100 MG; Start 08/20/18 at 09:00 Famotidine (Pepcid) 20 mg DAILY PO Last administered on 08/25/18 08:30; Admin Dose 20 MG; Start 08/21/18 at 09:00 Apixaban (Eliquis) 2.5 mg BID PO Last administered on 08/25/18 21:44; Admin Dose 2.5 MG; Start 08/21/18 at 09:30 Diagnostic Test (Pha) (Accu-Chek) 1 ea Q4 XX Last administered on 08/25/18 17:34; Admin Dose 1 EA; Start 08/23/18 at 21:00 Fat Emulsion Intravenous 250 ml @ 21 mls/hr DAILY IV Last administered on 08:32; Admin Dose 21 MLS/HR; Start 08/24/18 at 14:00 Insulin Aspart (Novolog Insulin Pen) (Adult SC Insulin - Mild Algorithm)... Q4 SC Last administered on 08/26/18 09:20; Admin Dose 2 UNIT; Start 08/24/18 at 01:00 Piperacillin Sod/ Tazobactam Sod 100 ml @ 200 mls/hr Q8 IVPB Last administered on 08/26/18 05:58; Admin Dose 200 MLS/HR; Start 08/24/18 at 14:00 Total Parenteral Nutrition 1,000 ml @ 65 mls/hr [id number] Last administered on 08/25/18 23:34; Admin Dose 65 MLS/HR; Start 08/24/18 at 16:00 Insulin Glargine (Lantus) 15 units DAILY@0800 SC Last administered on 08/26/18 09:20; Admin Dose 15 UNITS; Start 08/26/18 at 08:00 Ketorolac Tromethamine (Toradol) 15 mg Q6H PRN IV PAIN Last administered on 08/25/18 13:34; Admin Dose 15 MG; Start 08/25/18 at 12:00; Stop 08/28/18 at 11:59 Albumin Human 100 ml @ 100 mls/hr WITH DIALYSIS PRN IV SBP <90 DURING DIALYSIS Last administered on 08/26/18 09:29; Admin Dose 100 MLS/HR; Start 08/26/18 at 08:30 NNEKA FRITZ MD Aug 26, 2018 10:28
--- NOTE | 2018-08-26 10:40 | CONS ---
Assessment/Plan Assessment/Plan Hospital Course (Demo Recall) #Adenocarcinoma of ascending Colon ca -final pathology report reveals 2 separate masses with different pathology results. -the ascending colon mass is consistent with a Moderately-differentiated adenocarcinoma, invading through the muscularis propria, with all 0/18 negative for disease, 3.6 x 2.8 x 1.1 cm. -the splenic flexture mass is 10.5 x 9.0 x 7.0 cm.and consistent with a high grade GIST tumor -CT does not reveal evidence of distant mets -in terms of the adenocarcinoma, pt does not need adjuvant chemotherapy given this was a stage IIA tumor. 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 Consultation Date/Type/Reason Admit Date/Time Aug 02, 2018 at 10:57 Initial Consult Date 08/09/18 Type of Consult oncology Reason for Consultation colon cancer Requesting Provider: DULCE GALINDO Date/Time of Note DATE: 08/26/18 TIME: 10:37 24 HR Interval Summary Free Text/Dictation pt now with and enterocutaneous fistula Exam/Review of Systems Exam Vitals Vital Signs Date Temp Pulse Resp B/P (MAP) Pulse Ox O2 O2 Flow FiO2 Time Delivery Rate 08/26/18 Nasal 2.0 08:35 Cannula 08/26/18 87 91/52 (65) 04:55 08/26/18 97.7 18 98 02:09 Intake and Output 08/25/18 08/25/18 08/26/18 1414:59 22:59 06:59 IntakeIntake Total 948 ml 965 ml 1000 ml OutputOutput Total 700 ml 400 ml 500 ml BalanceBalance 248 ml 565 ml 500 ml Constitutional: alert, oriented Psych: no complaints Head: normocephalic Eyes: nl conjunctiva ENMT: nl external ears & nose Neck: supple Respiratory: clear to auscultation Cardiovascular: regular rate and rhythm Gastrointestinal: soft, other (enterocutaneous fistula) Musculoskeletal: nl extremities to inspection Results Result Diagram: 08/26/18 0502 08/26/18 0501 Results 24hrs Laboratory Tests Test 08/25/18 13:33 08/25/18 17:32 08/25/18 21:40 08/26/18 01:27 Bedside Glucose 359 H 364 H 314 H 272 H Test 08/26/18 05:01 08/26/18 05:02 08/26/18 05:27 08/26/18 09:15 Sodium Level 135 Potassium Level 4.3 Chloride Level 100 Carbon Dioxide Level 22 Anion Gap 13 Blood Urea Nitrogen 65 H Creatinine 4.89 H Est Glomerular Filtrat Rate mL/min Glucose Level 232 H Calcium Level 9.1 Magnesium Level 2.1 Total Bilirubin 0.2 Direct Bilirubin 0.00 Indirect Bilirubin 0.2 Aspartate Amino 12 L Transf (AST/SGOT) Alanine 7 L Aminotransferase (AL T/SGPT) Alkaline Phosphatase 78 Total Protein 4.8 L Albumin 2.0 L Globulin 2.80 Albumin/Globulin 0.71 Ratio White Blood Count 10.1 # Red Blood Count 2.95 L Hemoglobin 8.7 L Hematocrit 27.8 L Mean Corpuscular 94.2 Volume Mean Corpuscular 29.5 Hemoglobin Mean Corpuscular 31.3 L Hemoglobin Concent Red Cell 16.0 H Distribution Width Platelet Count 68 #L Mean Platelet Volume 14.1 H Immature 2.300 H Granulocytes % Neutrophils % Segmented 24 L Neutrophils % (Manual) Band Neutrophils % 37 H (Manual) Lymphocytes % Lymphocytes % 17 (Manual) Reactive Lymphocytes 1 H % (Manual) Monocytes % Monocytes % (Manual) 13 H Eosinophils % Eosinophils % 7 (Manual) Basophils % Promyelocytes % 1 H (Manual) Nucleated Red Blood 0.0 Cells % Immature 0.230 H Granulocytes # Neutrophils # Neutrophils # 2.8 (Manual) Band Neutrophils # 3.7 H Lymphocytes (Manual) 1.7 Lymphocytes # Reactive Lymphocytes 0.1 H # Monocytes # Monocytes # (Manual) 1.3 H Eosinophils # Basophils # Promyelocytes # 0.1 H Nucleated Red Blood Cells # Platelet Estimate DECREASED Giant Platelets 3 H Polychromasia 2+ Poikilocytosis 1+ Anisocytosis 2+ Macrocytosis 1+ Spherocytes 1+ Bedside Glucose 229 H 233 H Medications Medication Current Medications Ondansetron HCl (Zofran Inj) 4 mg Q6H PRN IV NAUSEA/VOMITING Last administered on 08/19/18 12:55; Admin Dose 4 MG; Start 08/02/18 at 13:00 Diagnostic Test (Pha) (Accu-Chek) 1 ea 02 XX Last administered on 08/22/18 02:08; Admin Dose 1 EA; Start 08/03/18 at 02:00 Glucose (Glutose) 15 gm Q15M PRN PO DECREASED GLUCOSE; Start 08/02/18 at 13:30 Glucose (Glutose) 22.5 gm Q15M PRN PO DECREASED GLUCOSE; Start 08/02/18 at 13:30 Dextrose (D50w Syringe) 25 ml Q15M PRN IV DECREASED GLUCOSE Last administered on 08/19/18 02:02; Admin Dose 25 ML; Start 08/02/18 at 13:30 Dextrose (D50w Syringe) 50 ml Q15M PRN IV DECREASED GLUCOSE; Start 08/02/18 at 13:30 Glucagon (Glucagen) 1 mg Q15M PRN IM DECREASED GLUCOSE; Start 08/02/18 at 13:30 Glucose (Glutose) 15 gm Q15M PRN BUCCAL DECREASED GLUCOSE; Start 08/02/18 at 13:30 Cholecalciferol (Vitamin D) 1,000 unit DAILY PO Last administered on 08/25/18 08:30; Admin Dose 1,000 UNIT; Start 08/03/18 at 09:00 Folic Acid (Folic Acid) 1 mg DAILY PO Last administered on 08/25/18 08:31; Admin Dose 1 MG; Start 08/03/18 at 09:00 Sevelamer Carbonate (Renvela) 0.8 gm AC MEALS PO Last administered on 08/25/18 08:30; Admin Dose 0.8 GM; Start 08/02/18 at 17:30; Status Hold Midodrine (Proamatine) 5 mg ON DIALYSIS DAYS PO Last administered on 08/26/18 08:16; Admin Dose 5 MG; Start 08/02/18 at 18:00 Gabapentin (Neurontin) 100 mg DAILY PO Last administered on 08/13/18 09:07; Admin Dose 100 MG; Start 08/07/18 at 11:30; Status Hold Phenol (Cepastat Lozenge) 1 lozenge Q1H PRN MT COUGH Last administered on 08/08/18 02:34; Admin Dose 1 LOZENGE; Start 08/07/18 at 23:00 Heparin Sodium (Porcine) (Heparin (1000 Units/ml)) 6,100 unit AFTER DIALYSIS CATHETER Last administered on 08/23/18 13:53; Admin Dose 6,100 UNIT; Start 08/16/18 at 22:30 Acetaminophen (Tylenol Tab) 650 mg Q6H PRN PO MILD PAIN(1-3)OR ELEVATED TEMP Last administered on 08/18/18 05:59; Admin Dose 650 MG; Start 08/18/18 at 05:30 Levothyroxine Sodium (Synthroid) 50 mcg DAILY@06 PO Last administered on 08/26/18 05:58; Admin Dose 50 MCG; Start 08/20/18 at 06:00 Docusate Sodium (Colace) 100 mg DAILY PO Last administered on 08/22/18 08:46; Admin Dose 100 MG; Start 08/20/18 at 09:00 Famotidine (Pepcid) 20 mg DAILY PO Last administered on 08/25/18 08:30; Admin Dose 20 MG; Start 08/21/18 at 09:00 Apixaban (Eliquis) 2.5 mg BID PO Last administered on 08/25/18 21:44; Admin Dose 2.5 MG; Start 08/21/18 at 09:30 Diagnostic Test (Pha) (Accu-Chek) 1 ea Q4 XX Last administered on 08/25/18 17:34; Admin Dose 1 EA; Start 08/23/18 at 21:00 Fat Emulsion Intravenous 250 ml @ 21 mls/hr DAILY IV Last administered on 08/25/18 08:32; Admin Dose 21 MLS/HR; Start 08/24/18 at 14:00 Insulin Aspart (Novolog Insulin Pen) (Adult SC Insulin - Mild Algorithm)... Q4 S C Last administered on 08/26/18 09:20; Admin Dose 2 UNIT; Start 08/24/18 at 01:00 Piperacillin Sod/ Tazobactam Sod 100 ml @ 200 mls/hr Q8 IVPB Last administered on 08/26/18 05:58; Admin Dose 200 MLS/HR; Start 08/24/18 at 14:00 Total Parenteral Nutrition 1,000 ml @ 65 mls/hr [id number] IV Last administered on 08/25/18 23:34; Admin Dose 65 MLS/HR; Start 08/24/18 at 16:00 Insulin Glargine (Lantus) 15 units DAILY@0800 SC Last administered on 08/26/18 09:20; Admin Dose 15 UNITS; Start 08/26/18 at 08:00 Ketorolac Tromethamine (Toradol) 15 mg Q6H PRN IV PAIN Last administered on 08/25/18 13:34; Admin Dose 15 MG; Start 08/25/18 at 12:00; Stop 08/28/18 at 11:59 Albumin Human 100 ml @ 100 mls/hr WITH DIALYSIS PRN IV SBP <90 DURING DIALYSIS Last administered on 08/26/18 09:29; Admin Dose 100 MLS/HR; Start 08/26/18 at 08:30 JAGUAR CARTWRIGHT M.D. Aug 26, 2018 10:40
[2018-08-26] MEDS: FAT EMULSION 20% 250 ML IV SCH (12:09)
[2018-08-26] MEDS: HEPARIN 1000 UNITS/ML 10 ML INJ CATHETER SCH (12:20)
[2018-08-26] MEDS: APIXABAN 5 MG TABLET PO SCH (13:00)
[2018-08-26] MEDS: CHOLECALCIFEROL 1,000 UNIT TAB PO SCH (13:03)
[2018-08-26] MEDS: FAMOTIDINE 20 MG TAB PO SCH (13:03)
[2018-08-26] MEDS: FOLIC ACID 1 MG TAB PO SCH (13:03)
[2018-08-26] MEDS: BALSAM PERU/CASTOR OIL 60 GM TUBE TOP SCH ×2 (13:06→21:01)
--- NOTE | 2018-08-26 14:12 | PN ---
Date/Time of Note Date/Time of Note DATE: 08/26/18 TIME: 14:12 Objective Vitals Vital Signs Date Temp Pulse Resp B/P (MAP) Pulse Ox O2 O2 Flow FiO2 Time Delivery Rate 08/26/18 98 12:10 08/26/18 98.3 18 86/49 (61) 96 Room Air 10:40 08/26/18 2.0 08:35 Intake and Output 08/25/18 08/25/18 08/26/18 1414:59 22:59 06:59 IntakeIntake Total 948 ml 965 ml 1000 ml OutputOutput Total 700 ml 400 ml 500 ml BalanceBalance 248 ml 565 ml 500 ml Results Result Diagram: 08/26/18 1322 08/26/18 0501 Medications Medications Current Medications Ondansetron HCl (Zofran Inj) 4 mg Q6H PRN IV NAUSEA/VOMITING Last administered on 08/19/18at 12:55; Admin Dose 4 MG; Start 08/02/18 at 13:00 Diagnostic Test (Pha) (Accu-Chek) 1 ea 02 XX Last administered on 08/22/18at 02:08; Admin Dose 1 EA; Start 08/03/18 at 02:00 Glucose (Glutose) 15 gm Q15M PRN PO DECREASED GLUCOSE; Start 08/02/18 at 13:30 Glucose (Glutose) 22.5 gm Q15M PRN PO DECREASED GLUCOSE; Start 08/02/18 at 13:30 Dextrose (D50w Syringe) 25 ml Q15M PRN IV DECREASED GLUCOSE Last administered on 08/19/18at 02:02; Admin Dose 25 ML; Start 08/02/18 at 13:30 Dextrose (D50w Syringe) 50 ml Q15M PRN IV DECREASED GLUCOSE; Start 08/02/18 at 13:30 Glucagon (Glucagen) 1 mg Q15M PRN IM DECREASED GLUCOSE; Start 08/02/18 at 13:30 Glucose (Glutose) 15 gm Q15M PRN BUCCAL DECREASED GLUCOSE; Start 08/02/18 at 13:30 Cholecalciferol (Vitamin D) 1,000 unit DAILY PO Last administered on 08/26/18at 13:03; Admin Dose 1,000 UNIT; Start 08/03/18 at 09:00 Folic Acid (Folic Acid) 1 mg DAILY PO Last administered on 08/26/18 13:03; Admin Dose 1 MG; Start 08/03/18 at 09:00 Sevelamer Carbonate (Renvela) 0.8 gm AC MEALS PO Last administered on 08/25/18 08:30; Admin Dose 0.8 GM; Start 08/02/18 at 17:30; Status Hold Midodrine (Proamatine) 5 mg ON DIALYSIS DAYS PO Last administered on 08/26/18 08:16; Admin Dose 5 MG; Start 08/02/18 at 18:00 Gabapentin (Neurontin) 100 mg DAILY PO Last administered on 08/13/18 09:07; Admin Dose 100 MG; Start 08/07/18 at 11:30; Status Hold Phenol (Cepastat Lozenge) 1 lozenge Q1H PRN MT COUGH Last administered on 08/08/18 02:34; Admin Dose 1 LOZENGE; Start 08/07/18 at 23:00 Heparin Sodium (Porcine) (Heparin (1000 Units/ml)) 6,100 unit AFTER DIALYSIS CATHETER Last administered on 08/26/18 12:20; Admin Dose 6,100 UNIT; Start 08/16/18 at 22:30 Acetaminophen (Tylenol Tab) 650 mg Q6H PRN PO MILD PAIN(1-3)OR ELEVATED TEMP Last administered on 08/18/18 05:59; Admin Dose 650 MG; Start 08/18/18 at 05:30 Levothyroxine Sodium (Synthroid) 50 mcg DAILY@06 PO Last administered on 08/26/18 05:58; Admin Dose 50 MCG; Start 08/20/18 at 06:00 Docusate Sodium (Colace) 100 mg DAILY PO Last administered on 08/22/18 08:46; Admin Dose 100 MG; Start 08/20/18 at 09:00 Famotidine (Pepcid) 20 mg DAILY PO Last administered on 08/26/18 13:03; Admin Dose 20 MG; Start 08/21/18 at 09:00 Apixaban (Eliquis) 2.5 mg BID PO Last administered on 08/25/18 21:44; Admin Dose 2.5 MG; Start 08/21/18 at 09:30; Status Hold Diagnostic Test (Pha) (Accu-Chek) 1 ea Q4 XX Last administered on 3/11/19at 09:00; Admin Dose 1 EA; Start 08/23/18 at 21:00 Fat Emulsion Intravenous 250 ml @ 21 mls/hr DAILY IV Last administered on 08/26/18 12:09; Admin Dose 21 MLS/HR; Start 08/24/18 at 14:00 Insulin Aspart (Novolog Insulin Pen) (Adult SC Insulin - Mild Algorithm)... Q4 SC Last administered on 08/26/18at 13:10; Admin Dose 1 UNIT; Start 08/24/18 at 01:00 Piperacillin Sod/ Tazobactam Sod 100 ml @ 200 mls/hr Q8 IVPB Last administered on 08/26/18at 05:58; Admin Dose 200 MLS/HR; Start 08/24/18 at 14:00 Total Parenteral Nutrition 1,000 ml @ 65 mls/hr [id number] IV Last administered on 08/25/18 23:34; Admin Dose 65 MLS/HR; Start 08/24/18 at 16:00 Ketorolac Tromethamine (Toradol) 15 mg Q6H PRN IV PAIN Last administered on 08/25/18 13:34; Admin Dose 15 MG; Start 08/25/18 at 12:00; Stop 08/28/18 at 11:59 Albumin Human 100 ml @ 100 mls/hr WITH DIALYSIS PRN IV SBP <90 DURING DIALYSIS Last administered on 08/26/18at 09:29; Admin Dose 100 MLS/HR; Start 08/26/18 at 08:30 Insulin Glargine (Lantus) 20 units DAILY@0800 SC ; Start 08/27/18 at 08:00 VTE Prophylaxis Risk score (from Nsg)>0 risk: 13 SCD applied (from Nsg): Yes Lines/Catheters IV Catheter Type: Granger in Place: Yes Cont'd granger catheter reason: terminal illness/intractable pain Assessment/Plan Hospital Course Subjective Patient appears irritated and in some pain and tired Subjective Physical exam General: Patient is laying in bed and answers questions appropriately Mentation: Patient is alert and oriented 4, Head: Normocephalic atraumatic Eyes: EOMI, pupils reactive to light Neck: Supple, nontender, midline Respiratory: Clear to auscultation bilaterally Cardiovascular: regular rate, no obvious murmurs Gastrointestinal: Moderately tender to palpation, bowel sounds heard. Neurological: Moves all extremities spontaneously Skin: No new skin lesions Assessment/Plan 1. 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 patient kept NPO and on TPN at this time - Dr. Meneses/Jimbo on board and appreciate consultation - GI on board and appreciate recommendations. 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 Will need 36 months of adjuvant therapy for GIST tumor once abdominal wounds healed but no further intervention for adenocarcinoma - Cardiology consultation appreciated - ID consulted for possible prophylaxis abx 2. End-stage renal disease on HD - Nephrology on board for HD management and appreciate recommendations - clogged fistula catheter (HeRO), consulted Dr. Coelho for recs as he is patient's vascular surgeon, recommended Horacio for now until we can fully anticoagulate. Follow as outpatient. On Eliquis and tolerating 3. GI bleed 2/2 to above mass - resolved 4. Arm swelling - Ultrasound showed right brachial DVT as well as thrombosis of the left cephalic vein. Patient's midline on his right arm is the likely culprit for the DVT on his right brachial vein. - dialysis catheter in left arm clotted for now, no Cathflo due to recent surgery per vascular surgery - monitor, warm compresses. - Patient is likely an hypercoagulable state due to his carcinoma and started on Eliquis 5. Diabetes - A1c noted - counseled about importance of diet choices and glucose control - Continue Lantus and ISS. TPN to be adjusted given persistence of elevated glucose 6. Esophagitis - Continue PPI 7. Hypothyroidism - Continue home Synthroid 8. Nonischemic CM - pacer in place - Chronic per outpatient [employer] 9. Mild acute on chronic systolic HF - fluid removal during HD 10. 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 and remains NPO. Output decreasing - Continue on TPN at this time -holding eliquis for now as small drop in hgb, restart tomorrow if stable. DULCE GALINDO Aug 26, 2018 14:12
--- NOTE | 2018-08-26 14:35 | CONS ---
Assessment/Plan Assessment/Plan Hospital Course (Demo Recall) S/p septic shock Adenocarcinoma of ascending Colon s/p s/p subtotal colectomy and small bowel resection on 08/14/18 ES fistula==> on TPN ESRD/HD Clotted LUE AVF R bracial DVT DM CAD/PPM R fem filemon Abx: Zosyn Consultation Date/Type/Reason Admit Date/Time Aug 02, 2018 at 10:57 Type of Consult id Requesting Provider: DULCE GALINDO Date/Time of Note DATE: 08/26/18 TIME: 14:31 Past Medical History Medical History: congestive heart failure, diabetes, renal disease Home Meds Active Scripts Hydrocodone/Acetaminophen ([place] 5-325 Tablet) 1 Each Tablet, 1 EACH PO Q8 PRN for PAIN, #21 TAB Prov:DULCE GALINDO 03/29/17 Reported Medications Midodrine* (Midodrine*) 5 Mg Tablet, 5 MG PO DAILY, TAB THE DAYS OF DIALYSIS 08/02/18 Nortriptyline Hcl* (Nortriptyline Hcl*) 10 Mg Capsule, 10 MG PO TID, CAP 08/02/18 Aspirin* (Aspirin* Chew) 81 Mg Tab.chew, 81 MG PO DAILY, TAB.CHEW 08/02/18 Cholecalciferol* (Vitamin D3*) 1,000 Unit Tablet, 1000 UNIT PO DAILY, TAB 03/28/17 Cyanocobalamin* (Vitamin B12*) Unknown Strength Tab, 1 TAB PO Q MON,FRI, TAB 03/28/17 Sevelamer Carbonate* (Renvela*) 800 Mg Tablet, 0.8 GM PO WITH MEALS BID, TAB 03/28/17 Levothyroxine Sodium* (Synthroid*) 50 Mcg Tablet, 50 MCG PO BEFORE BREAKFAST, #30 TAB 08/21/16 Atorvastatin Calcium* (Atorvastatin Calcium*) 20 Mg Tablet, 20 MG PO QHS, #30 TAB 08/21/16 Folic Acid* (Folic Acid*) 1 Mg Tablet, 1 MG PO DAILY, TAB 08/21/16 Insulin Lispro (Humalog) 100 Unit/1 Ml Cartridge, 0 SQ TID SLIDING SCALES 08/21/16 Insulin Glargine* (Lantus*) 100 Unit/Ml Soln, 20 UNIT SC BID, #1 VIAL 08/21/16 Medications Current Medications Ondansetron HCl (Zofran Inj) 4 mg Q6H PRN IV NAUSEA/VOMITING Last administered on 08/19/18 12:55; Admin Dose 4 MG; Start 08/02/18 at 13:00 Diagnostic Test (Pha) (Accu-Chek) 1 ea 02 XX Last administered on 08/22/18 02:08; Admin Dose 1 EA; Start 08/03/18 at 02:00 Glucose (Glutose) 15 gm Q15M PRN PO DECREASED GLUCOSE; Start 08/02/18 at 13:30 Glucose (Glutose) 22.5 gm Q15M PRN PO DECREASED GLUCOSE; Start 08/02/18 at 13:30 Dextrose (D50w Syringe) 25 ml Q15M PRN IV DECREASED GLUCOSE Last administered on 08/19/18 02:02; Admin Dose 25 ML; Start 08/02/18 at 13:30 Dextrose (D50w Syringe) 50 ml Q15M PRN IV DECREASED GLUCOSE; Start 08/02/18 at 13:30 Glucagon (Glucagen) 1 mg Q15M PRN IM DECREASED GLUCOSE; Start 08/02/18 at 13:30 Glucose (Glutose) 15 gm Q15M PRN BUCCAL DECREASED GLUCOSE; Start 08/02/18 at 13:30 Cholecalciferol (Vitamin D) 1,000 unit DAILY PO Last administered on 08/26/18 13:03; Admin Dose 1,000 UNIT; Start 08/03/18 at 09:00 Folic Acid (Folic Acid) 1 mg DAILY PO Last administered on 08/26/18 13:03; Admin Dose 1 MG; Start 08/03/18 at 09:00 Sevelamer Carbonate (Renvela) 0.8 gm AC MEALS PO Last administered on 08/25/18 08:30; Admin Dose 0.8 GM; Start 08/02/18 at 17:30; Status Hold Midodrine (Proamatine) 5 mg ON DIALYSIS DAYS PO Last administered on 08/26/18 08:16; Admin Dose 5 MG; Start 08/02/18 at 18:00 Gabapentin (Neurontin) 100 mg DAILY PO Last administered on 08/13/18 09:07; Admin Dose 100 MG; Start 08/07/18 at 11:30; Status Hold Phenol (Cepastat Lozenge) 1 lozenge Q1H PRN MT COUGH Last administered on 08/08/18 02:34; Admin Dose 1 LOZENGE; Start 08/07/18 at 23:00 Heparin Sodium (Porcine) (Heparin (1000 Units/ml)) 6,100 unit AFTER DIALYSIS CATHETER Last administered on 08/26/18 12:20; Admin Dose 6,100 UNIT; Start 08/16/18 at 22:30 Acetaminophen (Tylenol Tab) 650 mg Q6H PRN PO MILD PAIN(1-3)OR ELEVATED TEMP Last administered on 08/18/18 05:59; Admin Dose 650 MG; Start 08/18/18 at 05:30 Levothyroxine Sodium (Synthroid) 50 mcg DAILY@06 PO Last administered on 08/26/18 05:58; Admin Dose 50 MCG; Start 08/20/18 at 06:00 Docusate Sodium (Colace) 100 mg DAILY PO Last administered on 08/22/18 08:46; Admin Dose 100 MG; Start 08/20/18 at 09:00 Famotidine (Pepcid) 20 mg DAILY PO Last administered on 08/26/18 13:03; Admin Dose 20 MG; Start 08/21/18 at 09:00 Apixaban (Eliquis) 2.5 mg BID PO Last administered on 08/25/18 21:44; Admin Dose 2.5 MG; Start 08/21/18 at 09:30; Status Hold Diagnostic Test (Pha) (Accu-Chek) 1 ea Q4 XX Last administered on 08/26/18 09:00; Admin Dose 1 EA; Start 08/23/18 at 21:00 Fat Emulsion Intravenous 250 ml @ 21 mls/hr DAILY IV Last administered on 08/26/18 12:09; Admin Dose 21 MLS/HR; Start 08/24/18 at 14:00 Insulin Aspart (Novolog Insulin Pen) (Adult SC Insulin - Mild Algorithm)... Q4 SC Last administered on 08/26/18 13:10; Admin Dose 1 UNIT; Start 08/24/18 at 01:00 Piperacillin Sod/ Tazobactam Sod 100 ml @ 200 mls/hr Q8 IVPB Last administered on 08/26/18 05:58; Admin Dose 200 MLS/HR; Start 08/24/18 at 14:00 Total Parenteral Nutrition 1,000 ml @ 65 mls/hr [id number] IV Last administered on 08/25/18at 23:34; Admin Dose 65 MLS/HR; Start 08/24/18 at 16:00 Ketorolac Tromethamine (Toradol) 15 mg Q6H PRN IV PAIN Last administered on 08/25/18at 13:34; Admin Dose 15 MG; Start 08/25/18 at 12:00; Stop 08/28/18 at 11:59 Albumin Human 100 ml @ 100 mls/hr WITH DIALYSIS PRN IV SBP <90 DURING DIALYSIS Last administered on 08/26/18at 09:29; Admin Dose 100 MLS/HR; Start 08/26/18 at 08:30 Insulin Glargine (Lantus) 20 units DAILY@0800 SC ; Start 08/27/18 at 08:00 Allergies: Coded Allergies: hydromorphone (Verified Allergy, Unknown, UNKNOWN, 08/16/18) per family's ( & daughter [RN]) report, pt has hallucinations after administration. meperidine (Verified Allergy, Unknown, 08/16/18) FROM REC[facility]DS OF [facility] Past Surgical History Past Surgical Hx: cholecystectomy (2008), other (Hip replacement, and prostatectomy for cancer) Social History Alcohol Use: none Smoking Status: Never smoker Drug Use: none Exam/Review of Systems Exam Vitals Vital Signs Date Temp Pulse Resp B/P (MAP) Pulse Ox O2 O2 Flow FiO2 Time Delivery Rate 08/26/18 98 12:10 08/26/18 98.3 18 86/49 (61) 96 Room Air 10:40 08/26/18 2.0 08:35 Intake and Output 08/25/18 08/25/18 08/26/18 1515:00 23:00 07:00 IntakeIntake Total 948 ml 965 ml 1000 ml OutputOutput Total 700 ml 400 ml 500 ml BalanceBalance 248 ml 565 ml 500 ml Results Result Diagram: 08/26/18 1322 08/26/18 0501 Results 24hrs Laboratory Tests Test 08/25/18 17:32 08/25/18 21:40 08/26/18 01:27 08/26/18 05:01 Bedside Glucose 364 H 314 H 272 H Sodium Level 135 Potassium Level 4.3 Chloride Level 100 Carbon Dioxide Level 22 Anion Gap 13 Blood Urea Nitrogen 65 H Creatinine 4.89 H Est Glomerular Filtrat Rate mL/min Glucose Level 232 H Calcium Level 9.1 Magnesium Level 2.1 Total Bilirubin 0.2 Direct Bilirubin 0.00 Indirect Bilirubin 0.2 Aspartate Amino 12 L Transf (AST/SGOT) Alanine 7 L Aminotransferase (AL T/SGPT) Alkaline Phosphatase 78 Total Protein 4.8 L Albumin 2.0 L Globulin 2.80 Albumin/Globulin 0.71 Ratio Test 08/26/18 05:02 08/26/18 05:27 08/26/18 09:15 08/26/18 13:09 White Blood Count 10.1 # Red Blood Count 2.95 L Hemoglobin 8.7 L Hematocrit 27.8 L Mean Corpuscular 94.2 Volume Mean Corpuscular 29.5 Hemoglobin Mean Corpuscular 31.3 L Hemoglobin Concent Red Cell 16.0 H Distribution Width Platelet Count 68 #L Mean Platelet Volume 14.1 H Immature 2.300 H Granulocytes % Neutrophils % Segmented 24 L Neutrophils % (Manual) Band Neutrophils % 37 H (Manual) Lymphocytes % Lymphocytes % 17 (Manual) Reactive Lymphocytes 1 H % (Manual) Monocytes % Monocytes % (Manual) 13 H Eosinophils % Eosinophils % 7 (Manual) Basophils % Promyelocytes % 1 H (Manual) Nucleated Red Blood 0.0 Cells % Immature 0.230 H Granulocytes # Neutrophils # Neutrophils # 2.8 (Manual) Band Neutrophils # 3.7 H Lymphocytes (Manual) 1.7 Lymphocytes # Reactive Lymphocytes 0.1 H # Monocytes # Monocytes # (Manual) 1.3 H Eosinophils # Basophils # Promyelocytes # 0.1 H Nucleated Red Blood Cells # Platelet Estimate DECREASED Giant Platelets 3 H Polychromasia 2+ Poikilocytosis 1+ Anisocytosis 2+ Macrocytosis 1+ Spherocytes 1+ Bedside Glucose 229 H 233 H 178 Test 08/26/18 13:22 Hemoglobin 9.1 L Hematocrit 28.2 L Medications Medication Current Medications Ondansetron HCl (Zofran Inj) 4 mg Q6H PRN IV NAUSEA/VOMITING Last administered on 08/19/18at 12:55; Admin Dose 4 MG; Start 08/02/18 at 13:00 Diagnostic Test (Pha) (Accu-Chek) 1 ea 02 XX Last administered on 08/22/18at 02:08; Admin Dose 1 EA; Start 08/03/18 at 02:00 Glucose (Glutose) 15 gm Q15M PRN PO DECREASED GLUCOSE; Start 08/02/18 at 13:30 Glucose (Glutose) 22.5 gm Q15M PRN PO DECREASED GLUCOSE; Start 08/02/18 at 1 3:30 Dextrose (D50w Syringe) 25 ml Q15M PRN IV DECREASED GLUCOSE Last administered on 08/19/18 02:02; Admin Dose 25 ML; Start 08/02/18 at 13:30 Dextrose (D50w Syringe) 50 ml Q15M PRN IV DECREASED GLUCOSE; Start 08/02/18 at 13:30 Glucagon (Glucagen) 1 mg Q15M PRN IM DECREASED GLUCOSE; Start 08/02/18 at 13:30 Glucose (Glutose) 15 gm Q15M PRN BUCCAL DECREASED GLUCOSE; Start 08/02/18 at 13:30 Cholecalciferol (Vitamin D) 1,000 unit DAILY PO Last administered on 08/26/18 13:03; Admin Dose 1,000 UNIT; Start 08/03/18 at 09:00 Folic Acid (Folic Acid) 1 mg DAILY PO Last administered on 08/26/18 13:03; Admin Dose 1 MG; Start 08/03/18 at 09:00 Sevelamer Carbonate (Renvela) 0.8 gm AC MEALS PO Last administered on 08/25/18 08:30; Admin Dose 0.8 GM; Start 08/02/18 at 17:30; Status Hold Midodrine (Proamatine) 5 mg ON DIALYSIS DAYS PO Last administered on 08/26/18 08:16; Admin Dose 5 MG; Start 08/02/18 at 18:00 Gabapentin (Neurontin) 100 mg DAILY PO Last administered on 08/13/18 09:07; Admin Dose 100 MG; Start 08/07/18 at 11:30; Status Hold Phenol (Cepastat Lozenge) 1 lozenge Q1H PRN MT COUGH Last administered on 08/08/18 02:34; Admin Dose 1 LOZENGE; Start 08/07/18 at 23:00 Heparin Sodium (Porcine) (Heparin (1000 Units/ml)) 6,100 unit AFTER DIALYSIS CATHETER Last administered on 08/26/18 12:20; Admin Dose 6,100 UNIT; Start 08/16/18 at 22:30 Acetaminophen (Tylenol Tab) 650 mg Q6H PRN PO MILD PAIN(1-3)OR ELEVATED TEMP Last administered on 08/18/18 05:59; Admin Dose 650 MG; Start 08/18/18 at 05:30 Levothyroxine Sodium (Synthroid) 50 mcg DAILY@06 PO Last administered on 05:58; Admin Dose 50 MCG; Start 08/20/18 at 06:00 Docusate Sodium (Colace) 100 mg DAILY PO Last administered on 08/22/18 08:46; Admin Dose 100 MG; Start 08/20/18 at 09:00 Famotidine (Pepcid) 20 mg DAILY PO Last administered on 08/26/18 13:03; Admin Dose 20 MG; Start 08/21/18 at 09:00 Apixaban (Eliquis) 2.5 mg BID PO Last administered on 08/25/18 21:44; Admin Dose 2.5 MG; Start 08/21/18 at 09:30; Status Hold Diagnostic Test (Pha) (Accu-Chek) 1 ea Q4 XX Last administered on 08/26/18 09 :00; Admin Dose 1 EA; Start 08/23/18 at 21:00 Fat Emulsion Intravenous 250 ml @ 21 mls/hr DAILY IV Last administered on 08/26/18 12:09; Admin Dose 21 MLS/HR; Start 08/24/18 at 14:00 Insulin Aspart (Novolog Insulin Pen) (Adult SC Insulin - Mild Algorithm)... Q4 SC Last administered on 08/26/18 13:10; Admin Dose 1 UNIT; Start 08/24/18 at 01:00 Piperacillin Sod/ Tazobactam Sod 100 ml @ 200 mls/hr Q8 IVPB Last administered on 08/26/18 05:58; Admin Dose 200 MLS/HR; Start 08/24/18 at 14:00 Total Parenteral Nutrition 1,000 ml @ 65 mls/hr [id number] IV Last administered on 08/25/18 23:34; Admin Dose 65 MLS/HR; Start 08/24/18 at 16:00 Ketorolac Tromethamine (Toradol) 15 mg Q6H PRN IV PAIN Last administered on 08/25/18 13:34; Admin Dose 15 MG; Start 08/25/18 at 12:00; Stop 08/28/18 at 11:59 Albumin Human 100 ml @ 100 mls/hr WITH DIALYSIS PRN IV SBP <90 DURING DIALYSIS Last administered on 08/26/18at 09:29; Admin Dose 100 MLS/HR; Start 08/26/18 at 08:30 Insulin Glargine (Lantus) 20 units DAILY@0800 SC ; Start 08/27/18 at 08:00 CHIN FORD NP Aug 26, 2018 14:35
[2018-08-26] MEDS: TPN 1,000 ML IV SCH (15:51)
[2018-08-27] MEDS: ACCU-CHEK XX SCH ×7 (01:00→21:18)
[2018-08-27] MEDS: Insulin NOVOLOG SS MILD Algorithm (NPO/TPN/ENTERAL FEEDS) SC SCH ×3 (01:36→09:51)
[2018-08-27 02:40] VITALS: BP 100/58; PULSE 93; RESP 18
[2018-08-27] MEDS: TPN 1,000 ML IV SCH ×2 (05:57→21:49)
[2018-08-27] MEDS: LEVOTHYROXINE 50 MCG TAB PO SCH (06:35)
[2018-08-27] MEDS: PIPER-TAZO 3.375 GM IV (PMX) 100 ML IVPB SCH ×3 (06:35→21:17)
[2018-08-27 07:24] VITALS: BP 114/65; PULSE 95; RESP 20
--- NOTE | 2018-08-27 07:37 | PN ---
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 Other findings at the time of surgery include mild to moderate ascites, and fine, nodularity of the liver - cirrhosis?-, and inflammation extending from the transverse colon mesentary to the pancreas, which felt firm). Decision to have the next dialysis as per nephrology. 08/16/18 Pt is on O2 ( 2 l/min) , and on Levophed. He is due to have dialysis this am at 0800. Stable but still critical 08/19/18 Pt is w/o nausea, tolerating some liquids, and says he is passing some gas.Pt does not move well which was also the case pre-op but persists due to post op pain. 08/20/18 POD #6 doing well. Path shows T3N0 adenocarcinoma, and T4N0 GIST w/ 1 tumor implant 3 POD #8 Still confused, eats when prompted, not ambulating well 08/23/18 POD #9 Pt has an entero-cutaneous fistula. WBC is sl elevated from yesterday 3 POD #12 Stable fistula. Normal wbc, low albumin. TPN is in place 08/27/18 POD #13 400 cc of stool per fistula overnight ( 1300 in 24 hrs ? - uncle ar). TPN is ongoing. Pt is stable w/ good labs Assessment/Plan Will start daily Imodium,and have again consulted woud/ stoma care to apply a longer term pouch. ANTB as per ID but seems stable. Subjective 24 Hr Interval Summary Pt is lying in bed and not very mobile. Had dialysis yesterday and they removed 1600 cc. Albumin is up to 2.2 ( rec'd IV albumin). Had 400 cc of fistula/ stool overnight. Abdominal discomfort is improved. No PT yesterday due to dialysis Constitutional: no complaints Feeding: NPO Pain Control: well controlled Exam/Review of Systems Vital Signs Vitals Vital Signs Date Temp Pulse Resp B/P (MAP) Pulse Ox O2 O2 Flow FiO2 Time Delivery Rate 08/27/18 98.8 95 20 114/65 100 Room Air 07:24 (81) 08/26/18 3 20:00 Intake and Output 08/26/18 08/26/18 08/27/18 1515:00 23:00 07:00 IntakeIntake Total 780 ml 245 ml OutputOutput Total 2000 ml 900 ml 400 ml BalanceBalance -2000 ml -120 ml -155 ml Exam Constitutional: oriented (x2) Gastrointestinal: soft, tender (less so) Results Result Diagram: 08/27/18 0433 08/27/18 0434 GONZÁLEZ MERIDA MD Aug 27, 2018 07:37
[2018-08-27] MEDS ORDERED: INSULIN GLARGINE [LANTus] (100 UNITS/ML) SYG SC SCH ×2 (08:00→20:00)
[2018-08-27] MEDS: DOCUSATE SODIUM 100 MG CAP PO SCH (09:00)
[2018-08-27] MEDS: FOLIC ACID 1 MG TAB PO SCH (09:44)
[2018-08-27] MEDS: LOPERAMIDE 2 MG CAP PO SCH (09:44)
[2018-08-27] MEDS: FAMOTIDINE 20 MG TAB PO SCH (09:44)
[2018-08-27] MEDS: CHOLECALCIFEROL 1,000 UNIT TAB PO SCH (09:44)
[2018-08-27] MEDS: BALSAM PERU/CASTOR OIL 60 GM TUBE TOP SCH ×2 (09:51→21:18)
--- NOTE | 2018-08-27 10:40 | CONS ---
Assessment/Plan Assessment/Plan Assessment/Plan (Daily) 1 End-stage renal disease, on hemodialysis, mwf 2. Bloody diarrhea with evidence of splenic flexure mass on the CT and possible fistula communicating through the small intestine status post colonoscopy with 2: Masses s/p subtotal colectomy POD#+ adenca , now with fistula formation 3. Hypotension. On Midodrine at home 4. History of congestive heart failure.1 End-stage renal disease, on hemodia lysis,mwf with mild CHF 5. Hypercholesterolemia. 6. Hx of total hip replacement. 7. leucocytosis, off pressor and trending down leukocytosis 8. dm uncontrolled on TPN 9. Macrocytic hypochromic Anemia mixed etiology, recent blood loss and 2/2 kidney disease 10. 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% 12 Clotted left arm AV graft now rt femoral permcath Assessment/Plan (Daily) - HD MWF, HD tmw - Midodrine on hd days -Consider adding insulin to TPN - avoid narcotics - Renally Dose all meds - management on adenoca per onc> Adjuvant chemo for GIST - Pt will need f/u Dr Coelho for Herograft upon dc Consultation Date/Type/Reason Admit Date/Time Aug 02, 2018 at 10:57 Initial Consult Date 08/03/18 Requesting Provider: DULCE GALINDO Date/Time of Note DATE: 08/27/18 TIME: 10:37 24 HR Interval Summary Free Text/Dictation Patient had hemodialysis yesterday 1600 mL Intermittently confused Had 400 cc of stool output through the fistula Sugars uncontrolled Exam/Review of Systems Exam Vitals Vital Signs Date Temp Pulse Resp B/P (MAP) Pulse Ox O2 O2 Flow FiO2 Time Delivery Rate 08/27/18 98.8 95 20 114/65 100 Room Air 07:24 (81) 08/26/18 3 20:00 Intake and Output 08/26/18 08/26/18 08/27/18 1515:00 23:00 07:00 IntakeIntake Total 780 ml 1245 ml OutputOutput Total 2000 ml 900 ml 400 ml BalanceBalance -2000 ml -120 ml 845 ml Exam Awake, confused Neck: supple Respiratory: clear to auscultation Cardiovascular: regular rate and rhythm Gastrointestinal: soft Extremities: edema (+) of the left arm On TPN Results Result Diagram: 08/27/18 0433 08/27/18 0434 Results 24hrs Laboratory Tests Test 08/26/18 13:09 08/26/18 13:22 08/26/18 17:28 08/26/18 20:57 Bedside Glucose 178 243 H 271 H Hemoglobin 9.1 L Hematocrit 28.2 L Test 08/27/18 01:33 08/27/18 04:33 08/27/18 04:34 08/27/18 05:00 Bedside Glucose 319 H White Blood Count 6.8 # Red Blood Count 3.00 L Hemoglobin 8.8 L Hematocrit 28.5 L Mean Corpuscular 95.0 Volume Mean Corpuscular 29.3 Hemoglobin Mean Corpuscular 30.9 L Hemoglobin Concent Red Cell 16.2 H Distribution Width Platelet Count 58 L Mean Platelet Volume 13.4 H Immature 4.100 H Granulocytes % Neutrophils % Segmented 22 L Neutrophils % (Manual) Band Neutrophils % 41 H (Manual) Lymphocytes % Lymphocytes % 4 L (Manual) Reactive Lymphocytes 7 H % (Manual) Monocytes % Monocytes % (Manual) 14 H Eosinophils % Eosinophils % 6 (Manual) Basophils % Metamyelocytes % 5 H (manual) Promyelocytes % 1 H (Manual) Nucleated Red Blood 0.0 Cells % Immature 0.280 H Granulocytes # Neutrophils # Neutrophils # 1.7 (Manual) Band Neutrophils # 2.7 H Lymphocytes (Manual) 0.2 L Lymphocytes # Reactive Lymphocytes 0.4 H # Monocytes # Monocytes # (Manual) 0.9 Eosinophils # Basophils # Metamyelocytes # 0.3 H Promyelocytes # 0.0 Nucleated Red Blood Cells # Toxic Granulation 2+ Platelet Estimate DECREASED Polychromasia 1+ Poikilocytosis 1+ Anisocytosis 1+ Macrocytosis 1+ Target Cells 1+ Magnesium Level 1.9 Sodium Level 134 L Potassium Level 3.7 Chloride Level 99 Carbon Dioxide Level 26 Anion Gap 9 Blood Urea Nitrogen 46 #H Creatinine 3.39 #H Est Glomerular Filtrat Rate mL/min Glucose Level 296 H Calcium Level 9.3 Total Bilirubin 0.2 Direct Bilirubin 0.00 Indirect Bilirubin 0.2 Aspartate Amino 12 L Transf (AST/SGOT) Alanine 12 L Aminotransferase (AL T/SGPT) Alkaline Phosphatase 194 #H Total Protein 5.4 L Albumin 2.2 L Globulin 3.20 Albumin/Globulin 0.68 Ratio Phosphorus Level 1.7 #L Test 08/27/18 05:09 08/27/18 08:35 Bedside Glucose 317 H 317 H Medications Medication Current Medications Ondansetron HCl (Zofran Inj) 4 mg Q6H PRN IV NAUSEA/VOMITING Last administered on 08/19/18 12:55; Admin Dose 4 MG; Start 08/02/18 at 13:00 Diagnostic Test (Pha) (Accu-Chek) 1 ea 02 XX Last administered on 08/22/18 02:08; Admin Dose 1 EA; Start 08/03/18 at 02:00 Glucose (Glutose) 15 gm Q15M PRN PO DECREASED GLUCOSE; Start 08/02/18 at 13:30 Glucose (Glutose) 22.5 gm Q15M PRN PO DECREASED GLUCOSE; Start 08/02/18 at 13:30 Dextrose (D50w Syringe) 25 ml Q15M PRN IV DECREASED GLUCOSE Last administered on 08/19/18 02:02; Admin Dose 25 ML; Start 08/02/18 at 13:30 Dextrose (D50w Syringe) 50 ml Q15M PRN IV DECREASED GLUCOSE; Start 08/02/18 at 13:30 Glucagon (Glucagen) 1 mg Q15M PRN IM DECREASED GLUCOSE; Start 08/02/18 at 13:30 Glucose (Glutose) 15 gm Q15M PRN BUCCAL DECREASED GLUCOSE; Start 08/02/18 at 13:30 Cholecalciferol (Vitamin D) 1,000 unit DAILY PO Last administered on 08/27/18 09:44; Admin Dose 1,000 UNIT; Start 08/03/18 at 09:00 Folic Acid (Folic Acid) 1 mg DAILY PO Last administered on 08/27/18 09:44; Admin Dose 1 MG; Start 08/03/18 at 09:00 Midodrine (Proamatine) 5 mg ON DIALYSIS DAYS PO Last administered on 08/26/18 08:16; Admin Dose 5 MG; Start 08/02/18 at 18:00 Gabapentin (Neurontin) 100 mg DAILY PO Last administered on 08/13/18 09:07; Admin Dose 100 MG; Start 08/07/18 at 11:30; Status Hold Phenol (Cepastat Lozenge) 1 lozenge Q1H PRN MT COUGH Last administered on 08/08/18 02:34; Admin Dose 1 LOZENGE; Start 08/07/18 at 23:00 Heparin Sodium (Porcine) (Heparin (1000 Units/ml)) 6,100 unit AFTER DIALYSIS CATHETER Last administered on 08/26/18 12:20; Admin Dose 6,100 UNIT; Start 08/16/18 at 22:30 Acetaminophen (Tylenol Tab) 650 mg Q6H PRN PO MILD PAIN(1-3)OR ELEVATED TEMP Last administered on 08/18/18 05:59; Admin Dose 650 MG; Start 08/18/18 at 05:30 Levothyroxine Sodium (Synthroid) 50 mcg DAILY@06 PO Last administered on 08/27/18 06:35; Admin Dose 50 MCG; Start 08/20/18 at 06:00 Docusate Sodium (Colace) 100 mg DAILY PO Last administered on 08/22/18 08:46; Admin Dose 100 MG; Start 08/20/18 at 09:00 Famotidine (Pepcid) 20 mg DAILY PO Last administered on 08/27/18 09:44; Admin Dose 20 MG; Start 08/21/18 at 09:00 Apixaban (Eliquis) 2.5 mg BID PO Last administered on 08/25/18 21:44; Admin Dose 2.5 MG; Start 08/21/18 at 09:30; Status Hold Diagnostic Test (Pha) (Accu-Chek) 1 ea Q4 XX Last administered on 08/27/18 09:51; Admin Dose 1 EA; Start 08/23/18 at 21:00 Fat Emulsion Intravenous 250 ml @ 21 mls/hr DAILY IV Last administered on 08/26/18 12:09; Admin Dose 21 MLS/HR; Start 08/24/18 at 14:00 Insulin Aspart (Novolog Insulin Pen) (Adult SC Insulin - Mild Algorithm)... Q4 SC Last administered on 08/27/18 09:51; Admin Dose 5 UNIT; Start 08/24/18 at 01:00 Piperacillin Sod/ Tazobactam Sod 100 ml @ 200 mls/hr Q8 IVPB Last administered on 08/27/18 06:35; Admin Dose 200 MLS/HR; Start 08/24/18 at 14:00 Total Parenteral Nutrition 1,000 ml @ 65 mls/hr [id number] IV Last administered on 08/27/18 05:57; Admin Dose 65 MLS/HR; Start 08/24/18 at 16:00 Ketorolac Tromethamine (Toradol) 15 mg Q6H PRN IV PAIN Last administered on 08/25/18 13:34; Admin Dose 15 MG; Start 08/25/18 at 12:00; Stop 08/28/18 at 11:59 Albumin Human 100 ml @ 100 mls/hr WITH DIALYSIS PRN IV SBP <90 DURING DIALYSIS Last administered on 08/26/18 09:29; Admin Dose 100 MLS/HR; Start 08/26/18 at 08:30 Insulin Glargine (Lantus) 20 units DAILY@0800 SC Last administered on 08/27/18 09:46; Admin Dose 20 UNITS; Start 08/27/18 at 08:00 Loperamide HCl (Imodium Cap) 4 mg DAILY PO Last administered on 08/27/18 09:44; Admin Dose 4 MG; Start 08/27/18 at 09:00 NNEKA FRITZ MD Aug 27, 2018 10:40
[2018-08-27] MEDS: INSULIN ASPART [NOVOLOG] 3 ML PEN SC SCH ×3 (13:18→21:36)
--- NOTE | 2018-08-27 14:40 | CONS ---
Assessment/Plan Assessment/Plan Hospital Course (Demo Recall) #Adenocarcinoma of ascending Colon ca -final pathology report reveals 2 separate masses with different pathology results. -the ascending colon mass is consistent with a Moderately-differentiated adenocarcinoma, invading through the muscularis propria, with all 0/18 negative for disease, 3.6 x 2.8 x 1.1 cm. -the splenic flexture mass is 10.5 x 9.0 x 7.0 cm.and consistent with a high grade GIST tumor -CT does not reveal evidence of distant mets -in terms of the adenocarcinoma, pt does not need adjuvant chemotherapy given this was a stage IIA tumor. 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 Consultation Date/Type/Reason Admit Date/Time Aug 02, 2018 at 10:57 Initial Consult Date 08/09/18 Type of Consult oncology Reason for Consultation colon cancer Requesting Provider: DULCE GALINDO Date/Time of Note DATE: 08/27/18 TIME: 14:38 24 HR Interval Summary Free Text/Dictation still with drainage from the enterocutaneous fistula Exam/Review of Systems Exam Vitals Vital Signs Date Temp Pulse Resp B/P (MAP) Pulse Ox O2 O2 Flow FiO2 Time Delivery Rate 08/27/18 98.8 95 20 114/65 100 Room Air 07:24 (81) 08/26/18 3 20:00 Intake and Output 08/26/18 08/26/18 08/27/18 1515:00 23:00 07:00 IntakeIntake Total 780 ml 1245 ml OutputOutput Total 2000 ml 900 ml 400 ml BalanceBalance -2000 ml -120 ml 845 ml Constitutional: frail Psych: anxiety, confusion, depression Head: normocephalic Eyes: nl conjunctiva ENMT: nl external ears & nose Neck: supple Respiratory: clear to auscultation Cardiovascular: regular rate and rhythm Gastrointestinal: soft, other (enterocutaneous fisulta with ostomy in place) Musculoskeletal: nl extremities to inspection Results Result Diagram: 08/27/18 0433 08/27/18 0434 Results 24hrs Laboratory Tests Test 08/26/18 17:28 08/26/18 20:57 08/27/18 01:33 08/27/18 04:33 Bedside Glucose 243 H 271 H 319 H White Blood Count 6.8 # Red Blood Count 3.00 L Hemoglobin 8.8 L Hematocrit 28.5 L Mean Corpuscular 95.0 Volume Mean Corpuscular 29.3 Hemoglobin Mean Corpuscular 30.9 L Hemoglobin Concent Red Cell 16.2 H Distribution Width Platelet Count 58 L Mean Platelet Volume 13.4 H Immature 4.100 H Granulocytes % Neutrophils % Segmented 22 L Neutrophils % (Manual) Band Neutrophils % 41 H (Manual) Lymphocytes % Lymphocytes % 4 L (Manual) Reactive Lymphocytes 7 H % (Manual) Monocytes % Monocytes % (Manual) 14 H Eosinophils % Eosinophils % 6 (Manual) Basophils % Metamyelocytes % 5 H (manual) Promyelocytes % 1 H (Manual) Nucleated Red Blood 0.0 Cells % Immature 0.280 H Granulocytes # Neutrophils # Neutrophils # 1.7 (Manual) Band Neutrophils # 2.7 H Lymphocytes (Manual) 0.2 L Lymphocytes # Reactive Lymphocytes 0.4 H # Monocytes # Monocytes # (Manual) 0.9 Eosinophils # Basophils # Metamyelocytes # 0.3 H Promyelocytes # 0.0 Nucleated Red Blood Cells # Toxic Granulation 2+ Platelet Estimate DECREASED Polychromasia 1+ Poikilocytosis 1+ Anisocytosis 1+ Macrocytosis 1+ Target Cells 1+ Magnesium Level 1.9 Test 08/27/18 04:34 08/27/18 05:00 08/27/18 05:09 08/27/18 08:35 Sodium Level 134 L Potassium Level 3.7 Chloride Level 99 Carbon Dioxide Level 26 Anion Gap 9 Blood Urea Nitrogen 46 #H Creatinine 3.39 #H Est Glomerular Filtrat Rate mL/min Glucose Level 296 H Calcium Level 9.3 Total Bilirubin 0.2 Direct Bilirubin 0.00 Indirect Bilirubin 0.2 Aspartate Amino 12 L Transf (AST/SGOT) Alanine 12 L Aminotransferase (AL T/SGPT) Alkaline Phosphatase 194 #H Total Protein 5.4 L Albumin 2.2 L Globulin 3.20 Albumin/Globulin 0.68 Ratio Phosphorus Level 1.7 #L Bedside Glucose 317 H 317 H Test 08/27/18 12:52 Bedside Glucose 366 H Medications Medication Current Medications Ondansetron HCl (Zofran Inj) 4 mg Q6H PRN IV NAUSEA/VOMITING Last administered on 08/19/18 12:55; Admin Dose 4 MG; Start 08/02/18 at 13:00 Diagnostic Test (Pha) (Accu-Chek) 1 ea 02 XX Last administered on 08/22/18 02:08; Admin Dose 1 EA; Start 08/03/18 at 02:00 Glucose (Glutose) 15 gm Q15M PRN PO DECREASED GLUCOSE; Start 08/02/18 at 13:30 Glucose (Glutose) 22.5 gm Q15M PRN PO DECREASED GLUCOSE; Start 08/02/18 at 13:30 Dextrose (D50w Syringe) 25 ml Q15M PRN IV DECREASED GLUCOSE Last administered on 08/19/18 02:02; Admin Dose 25 ML; Start 08/02/18 at 13:30 Dextrose (D50w Syringe) 50 ml Q15M PRN IV DECREASED GLUCOSE; Start 08/02/18 at 13:30 Glucagon (Glucagen) 1 mg Q15M PRN IM DECREASED GLUCOSE; Start 08/02/18 at 13:30 Glucose (Glutose) 15 gm Q15M PRN BUCCAL DECREASED GLUCOSE; Start 08/02/18 at 13:30 Cholecalciferol (Vitamin D) 1,000 unit DAILY PO Last administered on 08/27/18 09:44; Admin Dose 1,000 UNIT; Start 08/03/18 at 09:00 Folic Acid (Folic Acid) 1 mg DAILY PO Last administered on 08/27/18 09:44; Admin Dose 1 MG; Start 08/03/18 at 09:00 Midodrine (Proamatine) 5 mg ON DIALYSIS DAYS PO Last administered on 08/26/18 08:16; Admin Dose 5 MG; Start 08/02/18 at 18:00 Gabapentin (Neurontin) 100 mg DAILY PO Last administered on 08/13/18 09:07; Admin Dose 100 MG; Start 08/07/18 at 11:30; Status Hold Phenol (Cepastat Lozenge) 1 lozenge Q1H PRN MT COUGH Last administered on 02:34; Admin Dose 1 LOZENGE; Start 08/07/18 at 23:00 Heparin Sodium (Porcine) (Heparin (1000 Units/ml)) 6,100 unit AFTER DIALYSIS CATHETER Last administered on 08/26/18 12:20; Admin Dose 6,100 UNIT; Start 08/16/18 at 22:30 Acetaminophen (Tylenol Tab) 650 mg Q6H PRN PO MILD PAIN(1-3)OR ELEVATED TEMP Last administered on 08/18/18 05:59; Admin Dose 650 MG; Start 08/18/18 at 05:30 Levothyroxine Sodium (Synthroid) 50 mcg DAILY@06 PO Last administered on 08/27/18 06:35; Admin Dose 50 MCG; Start 08/20/18 at 06:00 Docusate Sodium (Colace) 100 mg DAILY PO Last administered on 08/22/18 08:46; Admin Dose 100 MG; Start 08/20/18 at 09:00 Famotidine (Pepcid) 20 mg DAILY PO Last administered on 08/27/18 09:44; Admin Dose 20 MG; Start 08/21/18 at 09:00 Apixaban (Eliquis) 2.5 mg BID PO Last administered on 08/25/18 21:44; Admin Dose 2.5 MG; Start 08/21/18 at 09:30; Status Hold Diagnostic Test (Pha) (Accu-Chek) 1 ea Q4 XX Last administered on 08/27/18 13:14; Admin Dose 1 EA; Start 08/23/18 at 21:00 Fat Emulsion Intravenous 250 ml @ 21 mls/hr DAILY IV Last administered on 08/26/18 12:09; Admin Dose 21 MLS/HR; Start 08/24/18 at 14:00 Piperacillin Sod/ Tazobactam Sod 100 ml @ 200 mls/hr Q8 IVPB Last administered on 08/27/18 06:35; Admin Dose 200 MLS/HR; Start 08/24/18 at 14:00 Total Parenteral Nutrition 1,000 ml @ 65 mls/hr [id number] IV Last administered on 08/27/18 05:57; Admin Dose 65 MLS/HR; Start 08/24/18 at 16:00 Ketorolac Tromethamine (Toradol) 15 mg Q6H PRN IV PAIN Last administered on 08/25/18 13:34; Admin Dose 15 MG; Start 08/25/18 at 12:00; Stop 08/28/18 at 11:59 Albumin Human 100 ml @ 100 mls/hr WITH DIALYSIS PRN IV SBP <90 DURING DIALYSIS Last administered on 08/26/18 09:29; Admin Dose 100 MLS/HR; Start 08/26/18 at 08:30 Loperamide HCl (Imodium Cap) 4 mg DAILY PO Last administered on 08/27/18 09:44; Admin Dose 4 MG; Start 08/27/18 at 09:00 Insulin Aspart (Novolog Insulin Pen) NOVOLOG *MODERATE* ALGORITHM Q4 SC Last administered on 08/27/18 13:18; Admin Dose 10 UNIT; Start 08/27/18 at 13:00 Insulin Glargine (Lantus) 27 units DAILY@0800 SC ; Start 08/28/18 at 08:00 JAGUAR CARTWRIGHT M.D. Aug 27, 2018 14:40
[2018-08-27 14:46] VITALS: BP 121/72; PULSE 95; RESP 18
[2018-08-27] MEDS: FAT EMULSION 20% 250 ML IV SCH (14:52)
--- NOTE | 2018-08-27 15:23 | PN ---
Date/Time of Note Date/Time of Note DATE: 08/27/18 TIME: 15:20 Objective Vitals Vital Signs Date Temp Pulse Resp B/P (MAP) Pulse Ox O2 O2 Flow FiO2 Time Delivery Rate 08/27/18 97.7 95 18 121/72 99 Nasal 14:46 (88) Cannula 08/26/18 3 20:00 Intake and Output 08/26/18 08/26/18 08/27/18 1515:00 23:00 07:00 IntakeIntake Total 780 ml 1245 ml OutputOutput Total 2000 ml 900 ml 400 ml BalanceBalance -2000 ml -120 ml 845 ml Results Result Diagram: 08/27/18 0433 08/27/18 0434 Medications Medications Current Medications Ondansetron HCl (Zofran Inj) 4 mg Q6H PRN IV NAUSEA/VOMITING Last administered on 08/19/18at 12:55; Admin Dose 4 MG; Start 08/02/18 at 13:00 Diagnostic Test (Pha) (Accu-Chek) 1 ea 02 XX Last administered on 08/22/18at 02:08; Admin Dose 1 EA; Start 08/03/18 at 02:00 Glucose (Glutose) 15 gm Q15M PRN PO DECREASED GLUCOSE; Start 08/02/18 at 13:30 Glucose (Glutose) 22.5 gm Q15M PRN PO DECREASED GLUCOSE; Start 08/02/18 at 13:30 Dextrose (D50w Syringe) 25 ml Q15M PRN IV DECREASED GLUCOSE Last administered on 08/19/18at 02:02; Admin Dose 25 ML; Start 08/02/18 at 13:30 Dextrose (D50w Syringe) 50 ml Q15M PRN IV DECREASED GLUCOSE; Start 08/02/18 at 13:30 Glucagon (Glucagen) 1 mg Q15M PRN IM DECREASED GLUCOSE; Start 08/02/18 at 13:30 Glucose (Glutose) 15 gm Q15M PRN BUCCAL DECREASED GLUCOSE; Start 08/02/18 at 13:30 Cholecalciferol (Vitamin D) 1,000 unit DAILY PO Last administered on 08/27/18 09:44; Admin Dose 1,000 UNIT; Start 08/03/18 at 09:00 Folic Acid (Folic Acid) 1 mg DAILY PO Last administered on 08/27/18 09:44; Admin Dose 1 MG; Start 08/03/18 at 09:00 Midodrine (Proamatine) 5 mg ON DIALYSIS DAYS PO Last administered on 08/26/18 08:16; Admin Dose 5 MG; Start 08/02/18 at 18:00 Gabapentin (Neurontin) 100 mg DAILY PO Last administered on 08/13/18 09:07; Admin Dose 100 MG; Start 08/07/18 at 11:30; Status Hold Phenol (Cepastat Lozenge) 1 lozenge Q1H PRN MT COUGH Last administered on 08/08/18 02:34; Admin Dose 1 LOZENGE; Start 08/07/18 at 23:00 Heparin Sodium (Porcine) (Heparin (1000 Units/ml)) 6,100 unit AFTER DIALYSIS CATHETER Last administered on 08/26/18 12:20; Admin Dose 6,100 UNIT; Start 08/16/18 at 22:30 Acetaminophen (Tylenol Tab) 650 mg Q6H PRN PO MILD PAIN(1-3)OR ELEVATED TEMP Last administered on 08/18/18 05:59; Admin Dose 650 MG; Start 08/18/18 at 05:30 Levothyroxine Sodium (Synthroid) 50 mcg DAILY@06 PO Last administered on 08/27/18 06:35; Admin Dose 50 MCG; Start 08/20/18 at 06:00 Docusate Sodium (Colace) 100 mg DAILY PO Last administered on 08/22/18 08:46; Admin Dose 100 MG; Start 08/20/18 at 09:00 Famotidine (Pepcid) 20 mg DAILY PO Last administered on 08/27/18 09:44; Admin Dose 20 MG; Start 08/21/18 at 09:00 Apixaban (Eliquis) 2.5 mg BID PO Last administered on 08/25/18 21:44; Admin Dose 2.5 MG; Start 08/21/18 at 09:30; Status Hold Diagnostic Test (Pha) (Accu-Chek) 1 ea Q4 XX Last administered on 08/27/18 13:14; Admin Dose 1 EA; Start 08/23/18 at 21:00 Fat Emulsion Intravenous 250 ml @ 21 mls/hr DAILY IV Last administered on 08/27/18 14:52; Admin Dose 21 MLS/HR; Start 08/24/18 at 14:00 Piperacillin Sod/ Tazobactam Sod 100 ml @ 200 mls/hr Q8 IVPB Last administered on 08/27/18 15:05; Admin Dose 200 MLS/HR; Start 08/24/18 at 14:00 Total Parenteral Nutrition 1,000 ml @ 65 mls/hr [id number] IV Last administered on 08/27/18 05:57; Admin Dose 65 MLS/HR; Start 08/24/18 at 16:00 Ketorolac Tromethamine (Toradol) 15 mg Q6H PRN IV PAIN Last administered on 08/25/18 13:34; Admin Dose 15 MG; Start 08/25/18 at 12:00; Stop 08/28/18 at 11:59 Albumin Human 100 ml @ 100 mls/hr WITH DIALYSIS PRN IV SBP <90 DURING DIALYSIS Last administered on 08/26/18 09:29; Admin Dose 100 MLS/HR; Start 08/26/18 at 08:30 Loperamide HCl (Imodium Cap) 4 mg DAILY PO Last administered on 08/27/18 09:44; Admin Dose 4 MG; Start 08/27/18 at 09:00 Insulin Aspart (Novolog Insulin Pen) NOVOLOG *MODERATE* ALGORITHM Q4 SC Last administered on 08/27/18 13:18; Admin Dose 10 UNIT; Start 08/27/18 at 13:00 Insulin Glargine (Lantus) 27 units DAILY@0800 SC ; Start 08/28/18 at 08:00 VTE Prophylaxis Risk score (from Nsg)>0 risk: 7 SCD applied (from Nsg): Yes Lines/Catheters IV Catheter Type: Central Line Central line still needed: Yes Granger in Place: Yes Cont'd granger catheter reason: terminal illness/intractable pain Assessment/Plan Hospital Course Subjective Patient alert but seems to be confused at times Subjective Physical exam General: Patient is laying in bed and answers questions appropriately Mentation: Patient is alert and oriented to self Head: Normocephalic atraumatic Eyes: EOMI, pupils reactive to light Neck: Supple, nontender, midline Respiratory: Clear to auscultation bilaterally Cardiovascular: regular rate, no obvious murmurs Gastrointestinal: Moderately tender to palpation, bowel sounds heard. Neurological: Moves all extremities spontaneously Skin: No new skin lesions Assessment/Plan 1. 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 patient kept NPO and on TPN at this time - Dr. Meneses/Jimbo on board and appreciate consultation - GI on board and appreciate recommendations. 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 End-stage renal disease on HD - Nephrology on board for HD management and appreciate recommendations - clogged fistula catheter (HeRO), consulted Dr. Coelho for recs as he is patient's vascular surgeon, recommended Horacio for now until we can fully anticoagulate. Follow as outpatient. On Eliquis and tolerating Anemia -Likely secondary to above chronic anemia secondary to end-stage renal disease -Monitor hemoglobin levels, currently Eliquis was hold yesterday due to drop in hemoglobin however appears to have stabilized, restart Eliquis today 3. GI bleed 2/2 to above mass - resolved 4. Arm swelling - Ultrasound showed right brachial DVT as well as thrombosis of the left cephalic vein. Patient's midline on his right arm is the likely culprit for the DVT on his right brachial vein. - dialysis catheter in left arm clotted for now, no Cathflo due to recent surgery per vascular surgery - monitor, warm compresses. - Patient is likely an hypercoagulable state due to his carcinoma and started on Eliquis 5. Diabetes - A1c noted - counseled about importance of diet choices and glucose control - Continue Lantus and ISS. TPN to be adjusted given persistence of elevated glucose 6. Esophagitis - Continue PPI 7. Hypothyroidism - Continue home Synthroid 8. Nonischemic CM - pacer in place - Chronic per outpatient Network Admin 9. Mild acute on chronic systolic HF - fluid removal during HD 10. 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 and remains NPO. Output decreasing - Continue on TPN at this time -Restart Eliquis, monitor hemoglobin level tomorrow DULCE GALINDO Aug 27, 2018 15:23
--- NOTE | 2018-08-27 18:44 | CONS ---
Assessment/Plan Assessment/Plan Hospital Course (Demo Recall) No acute changes overnight patient is noncommunicative in no distress looks comfortable he is afebrile he is on TPN via right IJ triple-lumen catheter WBC 6.8 H&H 8.8 and 28.5 platelets 58 Indwelling: Right IJ triple-lumen catheter, right femoral Filemon, left upper extremity AV graft or fistula that is nonfunctioning Physical examination: Chronically ill-appearing elderly man who is nonco mmunicative in no distress. Head atraumatic normocephalic. Sclera nonicteric. Neck is supple, chest rise symmetrical. Heart: S1-S2. Abdomen soft bowel sounds present. Extremities without cyanosis. 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 ESRD/HD Clotted LUE AVF R brachial DVT DM CAD/PPM R fem filemon Abx: Zosyn Plan: Clinically unchanged overall stable, continue on current antibiotics, continue on TPN, follow surgical and oncology recommendations Consultation Date/Type/Reason Admit Date/Time Aug 02, 2018 at 10:57 Initial Consult Date 08/09/18 Type of Consult id Requesting Provider: DULCE GALINDO Date/Time of Note DATE: 08/27/18 TIME: 18:43 Exam/Review of Systems Exam Vitals Vital Signs Date Temp Pulse Resp B/P (MAP) Pulse Ox O2 O2 Flow FiO2 Time Delivery Rate 08/27/18 97.7 95 18 121/72 99 Nasal 14:46 (88) Cannula 08/26/18 3 20:00 Intake and Output 08/26/18 08/26/18 08/27/18 1515:00 23:00 07:00 IntakeIntake Total 780 ml 1245 ml OutputOutput Total 2000 ml 900 ml 400 ml BalanceBalance -2000 ml -120 ml 845 ml Results Result Diagram: 08/27/18 0433 08/27/18 0434 Results 24hrs Laboratory Tests Test 08/26/18 20:57 08/27/18 01:33 08/27/18 04:33 08/27/18 04:34 Bedside Glucose 271 H 319 H White Blood Count 6.8 # Red Blood Count 3.00 L Hemoglobin 8.8 L Hematocrit 28.5 L Mean Corpuscular 95.0 Volume Mean Corpuscular 29.3 Hemoglobin Mean Corpuscular 30.9 L Hemoglobin Concent Red Cell 16.2 H Distribution Width Platelet Count 58 L Mean Platelet Volume 13.4 H Immature 4.100 H Granulocytes % Neutrophils % Segmented 22 L Neutrophils % (Manual) Band Neutrophils % 41 H (Manual) Lymphocytes % Lymphocytes % 4 L (Manual) Reactive Lymphocytes 7 H % (Manual) Monocytes % Monocytes % (Manual) 14 H Eosinophils % Eosinophils % 6 (Manual) Basophils % Metamyelocytes % 5 H (manual) Promyelocytes % 1 H (Manual) Nucleated Red Blood 0.0 Cells % Immature 0.280 H Granulocytes # Neutrophils # Neutrophils # 1.7 (Manual) Band Neutrophils # 2.7 H Lymphocytes (Manual) 0.2 L Lymphocytes # Reactive Lymphocytes 0.4 H # Monocytes # Monocytes # (Manual) 0.9 Eosinophils # Basophils # Metamyelocytes # 0.3 H Promyelocytes # 0.0 Nucleated Red Blood Cells # Toxic Granulation 2+ Platelet Estimate DECREASED Polychromasia 1+ Poikilocytosis 1+ Anisocytosis 1+ Macrocytosis 1+ Target Cells 1+ Magnesium Level 1.9 Sodium Level 134 L Potassium Level 3.7 Chloride Level 99 Carbon Dioxide Level 26 Anion Gap 9 Blood Urea Nitrogen 46 #H Creatinine 3.39 #H Est Glomerular Filtrat Rate mL/min Glucose Level 296 H Calcium Level 9.3 Total Bilirubin 0.2 Direct Bilirubin 0.00 Indirect Bilirubin 0.2 Aspartate Amino 12 L Transf (AST/SGOT) Alanine 12 L Aminotransferase (AL T/SGPT) Alkaline Phosphatase 194 #H Total Protein 5.4 L Albumin 2.2 L Globulin 3.20 Albumin/Globulin 0.68 Ratio Test 08/27/18 05:00 08/27/18 05:09 08/27/18 08:35 08/27/18 12:52 Phosphorus Level 1.7 #L Bedside Glucose 317 H 317 H 366 H Test 08/27/18 17:56 Bedside Glucose 356 H Medications Medication Current Medications Ondansetron HCl (Zofran Inj) 4 mg Q6H PRN IV NAUSEA/VOMITING Last administered on 08/19/18at 12:55; Admin Dose 4 MG; Start 08/02/18 at 13:00 Diagnostic Test (Pha) (Accu-Chek) 1 ea 02 XX Last administered on 08/22/18 02: 08; Admin Dose 1 EA; Start 08/03/18 at 02:00 Glucose (Glutose) 15 gm Q15M PRN PO DECREASED GLUCOSE; Start 08/02/18 at 13:30 Glucose (Glutose) 22.5 gm Q15M PRN PO DECREASED GLUCOSE; Start 08/02/18 at 13:30 Dextrose (D50w Syringe) 25 ml Q15M PRN IV DECREASED GLUCOSE Last administered on 08/19/18 02:02; Admin Dose 25 ML; Start 08/02/18 at 13:30 Dextrose (D50w Syringe) 50 ml Q15M PRN IV DECREASED GLUCOSE; Start 08/02/18 at 13:30 Glucagon (Glucagen) 1 mg Q15M PRN IM DECREASED GLUCOSE; Start 08/02/18 at 13:30 Glucose (Glutose) 15 gm Q15M PRN BUCCAL DECREASED GLUCOSE; Start 08/02/18 at 13:30 Cholecalciferol (Vitamin D) 1,000 unit DAILY PO Last administered on 08/27/18 09:44; Admin Dose 1,000 UNIT; Start 08/03/18 at 09:00 Folic Acid (Folic Acid) 1 mg DAILY PO Last administered on 08/27/18 09:44; Admin Dose 1 MG; Start 08/03/18 at 09:00 Midodrine (Proamatine) 5 mg ON DIALYSIS DAYS PO Last administered on 08/26/18 08:16; Admin Dose 5 MG; Start 08/02/18 at 18:00 Gabapentin (Neurontin) 100 mg DAILY PO Last administered on 08/13/18 09:07; Admin Dose 100 MG; Start 08/07/18 at 11:30; Status Hold Phenol (Cepastat Lozenge) 1 lozenge Q1H PRN MT COUGH Last administered on 08/08/18 02:34; Admin Dose 1 LOZENGE; Start 08/07/18 at 23:00 Heparin Sodium (Porcine) (Heparin (1000 Units/ml)) 6,100 unit AFTER DIALYSIS CATHETER Last administered on 08/26/18 12:20; Admin Dose 6,100 UNIT; Start 08/16/18 at 22:30 Acetaminophen (Tylenol Tab) 650 mg Q6H PRN PO MILD PAIN(1-3)OR ELEVATED TEMP Last administered on 08/18/18 05:59; Admin Dose 650 MG; Start 08/18/18 at 05:30 Levothyroxine Sodium (Synthroid) 50 mcg DAILY@06 PO Last administered on 08/27/18 06:35; Admin Dose 50 MCG; Start 08/20/18 at 06:00 Docusate Sodium (Colace) 100 mg DAILY PO Last administered on 08/22/18 08:46; Admin Dose 100 MG; Start 08/20/18 at 09:00 Famotidine (Pepcid) 20 mg DAILY PO Last administered on 08/27/18 09:44; Admin Dose 20 MG; Start 08/21/18 at 09:00 Apixaban (Eliquis) 2.5 mg BID PO Last administered on 08/25/18 21:44; Admin Dose 2.5 MG; Start 08/21/18 at 09:30; Status Hold Diagnostic Test (Pha) (Accu-Chek) 1 ea Q4 XX Last administered on 08/27/18 17:00; Admin Dose 1 EA; Start 08/23/18 at 21:00 Fat Emulsion Intravenous 250 ml @ 21 mls/hr DAILY IV Last administered on 08/27/18 14:52; Admin Dose 21 MLS/HR; Start 08/24/18 at 14:00 Piperacillin Sod/ Tazobactam Sod 100 ml @ 200 mls/hr Q8 IVPB Last administered on 08/27/18 15:05; Admin Dose 200 MLS/HR; Start 08/24/18 at 14:00 Total Parenteral Nutrition 1,000 ml @ 65 mls/hr [id number] IV Last administered on 08/27/18 05:57; Admin Dose 65 MLS/HR; Start 08/24/18 at 16:00 Ketorolac Tromethamine (Toradol) 15 mg Q6H PRN IV PAIN Last administered on 08/25/18 13:34; Admin Dose 15 MG; Start 08/25/18 at 12:00; Stop 08/28/18 at 11:59 Albumin Human 100 ml @ 100 mls/hr WITH DIALYSIS PRN IV SBP <90 DURING DIALYSIS Last administered on 08/26/18 09:29; Admin Dose 100 MLS/HR; Start 08/26/18 at 08:30 Loperamide HCl (Imodium Cap) 4 mg DAILY PO Last administered on 08/27/18at 09:44; Admin Dose 4 MG; Start 08/27/18 at 09:00 Insulin Aspart (Novolog Insulin Pen) NOVOLOG *MODERATE* ALGORITHM Q4 SC Last administered on 08/27/18at 13:18; Admin Dose 10 UNIT; Start 08/27/18 at 13:00 Insulin Glargine (Lantus) 27 units DAILY@0800 SC ; Start 08/28/18 at 08:00 CHIN FORD NP Aug 27, 2018 18:44
[2018-08-27] MEDS ORDERED: INSULIN GLARGINE [LANTus] (100 UNITS/ML) SYG SC ONE (19:00)
[2018-08-27 20:19] VITALS: BP 116/65; PULSE 104; RESP 18
[2018-08-27] MEDS: APIXABAN 5 MG TABLET PO SCH (21:24)
[2018-08-28] VITALS (18 sets, daily range): BP systolic 83–129; BP diastolic 53–85; PULSE 70–122; RESP 18–20
[2018-08-28] MEDS: ACCU-CHEK XX SCH ×7 (01:31→21:00)
[2018-08-28] MEDS: INSULIN ASPART [NOVOLOG] 3 ML PEN SC SCH ×5 (01:31→17:33)
[2018-08-28] MEDS: KETOROLAC 15 MG INJ IV PRN (02:57)
[2018-08-28] MEDS: LEVOTHYROXINE 50 MCG TAB PO SCH (05:21)
[2018-08-28] MEDS: PIPER-TAZO 3.375 GM IV (PMX) 100 ML IVPB SCH (05:21)
--- NOTE | 2018-08-28 07:51 | PN ---
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 Other findings at the time of surgery include mild to moderate ascites, and fine, nodularity of the liver - cirrhosis?-, and inflammation extending from the transverse colon mesentary to the pancreas, which felt firm). Decision to have the next dialysis as per nephrology. 08/16/18 Pt is on O2 ( 2 l/min) , and on Levophed. He is due to have dialysis this am at 0800. Stable but still critical 08/19/18 Pt is w/o nausea, tolerating some liquids, and says he is passing some gas.Pt does not move well which was also the case pre-op but persists due to post op pain. 3 POD #6 doing well. Path shows T3N0 adenocarcinoma, and T4N0 GIST w/ 1 tumor implant 3 POD #8 Still confused, eats when prompted, not ambulating well 3 POD #9 Pt has an entero-cutaneous fistula. WBC is sl elevated from yesterday 3 POD #12 Stable fistula. Normal wbc, low albumin. TPN is in place 3 POD #13 400 cc of stool per fistula overnight ( 1300 in 24 hrs ? - uncle ar). TPN is ongoing. Pt is stable w/ good labs 3 POD #14 300 cc of stool now more bilious as the stool becomes mostly enteric secretions. TPN. Dialysis today Assessment/Plan The pt is improving: no abdominal pain , lower fistula output, wbc is normal and no sign of infection. Would like to stop ANTB to prevent risk of C Diff. ID to comment please Subjective 24 Hr Interval Summary Pt has basically no abdominal pain , and his drainage has diminished to 300 cc over 24 hrs on the Imodium. The fistula is passing ileal contents which is why the stool color has changed from brown to green now that all of the older enteric contents have now passed. TPN is necessary to support his nutrition as the fistula closes. Pt is not very cooperative w/ PT Constitutional: no complaints Feeding: NPO Pain Control: well controlled Exam/Review of Systems Vital Signs Vitals Vital Signs Date Temp Pulse Resp B/P (MAP) Pulse Ox O2 O2 Flow FiO2 Time Delivery Rate 08/28/18 97.6 70 18 105/65 91 02:34 (78) 08/27/18 3.0 23:30 08/27/18 Nasal 14:46 Cannula Intake and Output 08/27/18 08/27/18 08/28/18 1515:00 23:00 07:00 IntakeIntake Total 100 ml 1263 ml 657 ml OutputOutput Total 600 ml 650 ml BalanceBalance -500 ml 613 ml 657 ml Exam Constitutional: oriented (x2 only) Psych: confusion (mild) Gastrointestinal: soft, non-tender, bowel sounds Results Result Diagram: 08/28/18 0439 08/28/18 0439 GONZÁLEZ MERIDA MD Aug 28, 2018 07:51
[2018-08-28] MEDS ORDERED: INSULIN GLARGINE [LANTus] (100 UNITS/ML) SYG SC SCH ×4 (08:00→20:00)
[2018-08-28] MEDS: LOPERAMIDE 2 MG CAP PO SCH (09:00)
[2018-08-28] MEDS: APIXABAN 5 MG TABLET PO SCH (09:00)
[2018-08-28] MEDS: FAMOTIDINE 20 MG TAB PO SCH (09:00)
[2018-08-28] MEDS: CHOLECALCIFEROL 1,000 UNIT TAB PO SCH (09:00)
[2018-08-28] MEDS: FOLIC ACID 1 MG TAB PO SCH (09:00)
[2018-08-28] MEDS: FAT EMULSION 20% 250 ML IV SCH (09:55)
[2018-08-28] MEDS ORDERED: SODIUM PHOSPHATE 30 MMOL in SOD CHLORIDE 0.9% 250 ML IV* ONE (11:00)
--- NOTE | 2018-08-28 11:46 | CONS ---
Assessment/Plan Assessment/Plan Hospital Course (Demo Recall) #Adenocarcinoma of ascending Colon ca -final pathology report reveals 2 separate masses with different pathology results. -the ascending colon mass is consistent with a Moderately-differentiated adenocarcinoma, invading through the muscularis propria, with all 0/18 negative for disease, 3.6 x 2.8 x 1.1 cm. -the splenic flexture mass is 10.5 x 9.0 x 7.0 cm.and consistent with a high grade GIST tumor -CT does not reveal evidence of distant mets -in terms of the adenocarcinoma, pt does not need adjuvant chemotherapy given this was a stage IIA tumor. 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 Consultation Date/Type/Reason Admit Date/Time Aug 02, 2018 at 10:57 Initial Consult Date 08/09/18 Type of Consult oncology Reason for Consultation colon cancer Requesting Provider: DULCE GALINDO Date/Time of Note DATE: 08/28/18 TIME: 11:44 24 HR Interval Summary Free Text/Dictation no acute overnight events. still with drainage from enterocutaneous fistula Exam/Review of Systems Exam Vitals Vital Signs Date Temp Pulse Resp B/P (MAP) Pulse Ox O2 O2 Flow FiO2 Time Delivery Rate 08/28/18 96.9 81 18 99/58 (72) 93 Nasal 07:54 Cannula 08/27/18 3.0 23:30 Intake and Output 08/27/18 08/27/18 08/28/18 1515:00 23:00 07:00 IntakeIntake Total 100 ml 1263 ml 657 ml OutputOutput Total 600 ml 650 ml BalanceBalance -500 ml 613 ml 657 ml Constitutional: alert, oriented, frail Psych: anxiety, depression Head: normocephalic Eyes: nl conjunctiva ENMT: nl external ears & nose Neck: supple Respiratory: clear to auscultation Cardiovascular: regular rate and rhythm Gastrointestinal: other (entercutaneous fistula) Musculoskeletal: nl extremities to inspection Extremities: normal pulses Results Result Diagram: 08/28/18 0439 08/28/18 0439 Results 24hrs Laboratory Tests Test 08/27/18 12:52 08/27/18 17:56 08/27/18 21:27 08/28/18 01:27 Bedside Glucose 366 H 356 H 292 H 293 H Test 08/28/18 04:39 08/28/18 05:17 08/28/18 09:24 White Blood Count 6.6 Red Blood Count 2.97 L Hemoglobin 8.5 L Hematocrit 28.1 L Mean Corpuscular 94.6 Volume Mean Corpuscular 28.6 L Hemoglobin Mean Corpuscular 30.2 L Hemoglobin Concent Red Cell 16.2 H Distribution Width Platelet Count 44 #L Mean Platelet Volume 14.0 H Immature 1.800 H Granulocytes % Neutrophils % Segmented 43 Neutrophils % (Manual) Band Neutrophils % 36 H (Manual) Lymphocytes % Lymphocytes % 10 L (Manual) Reactive Lymphocytes 1 H % (Manual) Monocytes % Monocytes % (Manual) 5 Eosinophils % Eosinophils % 4 (Manual) Basophils % Metamyelocytes % 1 H (manual) Nucleated Red Blood 0.0 Cells % Immature 0.120 H Granulocytes # Neutrophils # Neutrophils # 3.0 (Manual) Band Neutrophils # 2.3 H Lymphocytes (Manual) 0.6 L Lymphocytes # Reactive Lymphocytes 0.0 # Monocytes # Monocytes # (Manual) 0.3 Eosinophils # Basophils # Metamyelocytes # 0.0 Nucleated Red Blood Cells # Platelet Estimate DECREASED Polychromasia 1+ Hypochromasia 1+ Poikilocytosis 1+ Anisocytosis 2+ Macrocytosis 1+ Absolute 0.018 L Reticulocyte Count Percent Reticulocyte 0.6 Count Sodium Level 134 L Potassium Level 3.8 Chloride Level 101 Carbon Dioxide Level 21 Anion Gap 12 Blood Urea Nitrogen 65 H Creatinine 4.19 H Est Glomerular Filtrat Rate mL/min Glucose Level 270 H Calcium Level 9.6 Phosphorus Level 1.9 L Magnesium Level 2.0 Iron Level 22 L Total Iron Binding 113 L Capacity Percent Iron 19 L Saturation Total Bilirubin 0.2 Direct Bilirubin 0.00 Indirect Bilirubin 0.2 Aspartate Amino 17 Transf (AST/SGOT) Alanine 13 Aminotransferase (AL T/SGPT) Alkaline Phosphatase 262 H Total Protein 5.2 L Albumin 2.2 L Globulin 3.00 Albumin/Globulin 0.73 Ratio Bedside Glucose 287 H 290 H Medications Medication Current Medications Ondansetron HCl (Zofran Inj) 4 mg Q6H PRN IV NAUSEA/VOMITING Last administered on 08/19/18 12:55; Admin Dose 4 MG; Start 08/02/18 at 13:00 Diagnostic Test (Pha) (Accu-Chek) 1 ea 02 XX Last administered on 08/22/18 02:0 8; Admin Dose 1 EA; Start 08/03/18 at 02:00 Glucose (Glutose) 15 gm Q15M PRN PO DECREASED GLUCOSE; Start 08/02/18 at 13:30 Glucose (Glutose) 22.5 gm Q15M PRN PO DECREASED GLUCOSE; Start 08/02/18 at 13:30 Dextrose (D50w Syringe) 25 ml Q15M PRN IV DECREASED GLUCOSE Last administered on 08/19/18 02:02; Admin Dose 25 ML; Start 08/02/18 at 13:30 Dextrose (D50w Syringe) 50 ml Q15M PRN IV DECREASED GLUCOSE; Start 08/02/18 at 13:30 Glucagon (Glucagen) 1 mg Q15M PRN IM DECREASED GLUCOSE; Start 08/02/18 at 13:30 Glucose (Glutose) 15 gm Q15M PRN BUCCAL DECREASED GLUCOSE; Start 08/02/18 at 13:30 Cholecalciferol (Vitamin D) 1,000 unit DAILY PO Last administered on 08/27/18 09:44; Admin Dose 1,000 UNIT; Start 08/03/18 at 09:00 Folic Acid (Folic Acid) 1 mg DAILY PO Last administered on 08/27/18 09:44; Admin Dose 1 MG; Start 08/03/18 at 09:00 Midodrine (Proamatine) 5 mg ON DIALYSIS DAYS PO Last administered on 08/26/18 08:16; Admin Dose 5 MG; Start 08/02/18 at 18:00 Gabapentin (Neurontin) 100 mg DAILY PO Last administered on 08/13/18 09:07; Admin Dose 100 MG; Start 08/07/18 at 11:30; Status Hold Phenol (Cepastat Lozenge) 1 lozenge Q1H PRN MT COUGH Last administered on 08/08/18 02:34; Admin Dose 1 LOZENGE; Start 08/07/18 at 23:00 Heparin Sodium (Porcine) (Heparin (1000 Units/ml)) 6,100 unit AFTER DIALYSIS CATHETER Last administered on 08/26/18 12:20; Admin Dose 6,100 UNIT; Start 08/16/18 at 22:30 Acetaminophen (Tylenol Tab) 650 mg Q6H PRN PO MILD PAIN(1-3)OR ELEVATED TEMP Last administered on 08/18/18 05:59; Admin Dose 650 MG; Start 08/18/18 at 05:30 Levothyroxine Sodium (Synthroid) 50 mcg DAILY@06 PO Last administered on 08/28/18 05:21; Admin Dose 50 MCG; Start 08/20/18 at 06:00 Famotidine (Pepcid) 20 mg DAILY PO Last administered on 08/27/18 09:44; Admin Dose 20 MG; Start 08/21/18 at 09:00 Apixaban (Eliquis) 2.5 mg BID PO Last administered on 08/27/18 21:24; Admin Dose 2.5 MG; Start 08/21/18 at 09:30; Status Hold Diagnostic Test (Pha) (Accu-Chek) 1 ea Q4 XX Last administered on 08/28/18 09:24; Admin Dose 1 EA; Start 08/23/18 at 21:00 Fat Emulsion Intravenous 250 ml @ 21 mls/hr DAILY IV Last administered on 08/28/18 09:55; Admin Dose 21 MLS/HR; Start 08/24/18 at 14:00 Piperacillin Sod/ Tazobactam Sod 100 ml @ 200 mls/hr Q8 IVPB Last administered on 08/28/18 05:21; Admin Dose 200 MLS/HR; Start 08/24/18 at 14:00 Total Parenteral Nutrition 1,000 ml @ 65 mls/hr [id number] IV Last administered on 08/27/18at 21:49; Admin Dose 65 MLS/HR; Start 08/24/18 at 16:00 Ketorolac Tromethamine (Toradol) 15 mg Q6H PRN IV PAIN Last administered on 08/28/18at 02:57; Admin Dose 15 MG; Start 08/25/18 at 12:00; Stop 08/28/18 at 11:59 Albumin Human 100 ml @ 100 mls/hr WITH DIALYSIS PRN IV SBP <90 DURING DIALYSIS Last administered on 08/26/18at 09:29; Admin Dose 100 MLS/HR; Start 08/26/18 at 08:30 Loperamide HCl (Imodium Cap) 4 mg DAILY PO Last administered on 08/27/18at 09:44; Admin Dose 4 MG; Start 08/27/18 at 09:00 Insulin Aspart (Novolog Insulin Pen) NOVOLOG *MODERATE* ALGORITHM Q4 SC Last administered on 08/28/18at 09:50; Admin Dose 8 UNIT; Start 08/27/18 at 13:00 Sodium Phosphate 30 mmol/Sodium Chloride 260 ml @ 43.333 mls/ hr ONCE ONCE IV* ; Start 08/28/18 at 11:00; Stop 08/28/18 at 16:59 Insulin Glargine (Lantus) 30 units BID@0800,2000 SC ; Start 08/28/18 at 20:00 JAGUAR CARTWRIGHT M.D. Aug 28, 2018 11:46
--- NOTE | 2018-08-28 11:48 | CONS ---
Assessment/Plan Assessment/Plan Assessment/Plan (Daily) 1 End-stage renal disease, on hemodialysis, mwf 2. Bloody diarrhea with evidence of splenic flexure mass on the CT and possible fistula communicating through the small intestine status post colonoscopy with 2: Masses s/p subtotal colectomy POD#+ adenca , now with fistula formation 3. Hypotension. On Midodrine at home 4. History of congestive heart failure.1 End-stage renal disease, on hemodia lysis,mwf with mild CHF 5. Hypercholesterolemia. 6. Hx of total hip replacement. 7. leucocytosis, off pressor and trending down leukocytosis 8. dm uncontrolled on TPN 9. Macrocytic hypochromic Anemia mixed etiology, recent blood loss and 2/2 kidney disease 10. 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% 12 Clotted left arm AV graft now rt femoral permcath 13 altered mental status questionable metabolic encephalopathy Assessment/Plan (Daily) - HD MWF, HD today - Midodrine on hd days - avoid narcotics, recommend CT scan of the brain/neuro consult for evaluation of altered mental status -IV iron - Renally Dose all meds - management on adenoca per onc> Adjuvant chemo for GIST - Pt will need f/u Dr Coelho for Herograft upon dc Consultation Date/Type/Reason Admit Date/Time Aug 02, 2018 at 10:57 Initial Consult Date 08/03/18 Requesting Provider: DULCE GALINDO Date/Time of Note DATE: 08/28/18 TIME: 11:46 24 HR Interval Summary Free Text/Dictation he is very confused still barely open his eyes Exam/Review of Systems Exam Vitals Vital Signs Date Temp Pulse Resp B/P (MAP) Pulse Ox O2 O2 Flow FiO2 Time Delivery Rate 08/28/18 96.9 81 18 99/58 (72) 93 Nasal 07:54 Cannula 08/27/18 3.0 23:30 Intake and Output 08/27/18 08/27/18 08/28/18 1515:00 23:00 07:00 IntakeIntake Total 100 ml 1263 ml 657 ml OutputOutput Total 600 ml 650 ml BalanceBalance -500 ml 613 ml 657 ml Exam Awake, confused Neck: supple Respiratory: clear to auscultation Cardiovascular: regular rate and rhythm Gastrointestinal: soft Extremities: edema (+) of the left arm On TPN Ostomy bag Results Result Diagram: 08/28/18 0439 08/28/18 0439 Results 24hrs Laboratory Tests Test 08/27/18 12:52 08/27/18 17:56 08/27/18 21:27 08/28/18 01:27 Bedside Glucose 366 H 356 H 292 H 293 H Test 08/28/18 04:39 08/28/18 05:17 08/28/18 09:24 White Blood Count 6.6 Red Blood Count 2.97 L Hemoglobin 8.5 L Hematocrit 28.1 L Mean Corpuscular 94.6 Volume Mean Corpuscular 28.6 L Hemoglobin Mean Corpuscular 30.2 L Hemoglobin Concent Red Cell 16.2 H Distribution Width Platelet Count 44 #L Mean Platelet Volume 14.0 H Immature 1.800 H Granulocytes % Neutrophils % Segmented 43 Neutrophils % (Manual) Band Neutrophils % 36 H (Manual) Lymphocytes % Lymphocytes % 10 L (Manual) Reactive Lymphocytes 1 H % (Manual) Monocytes % Monocytes % (Manual) 5 Eosinophils % Eosinophils % 4 (Manual) Basophils % Metamyelocytes % 1 H (manual) Nucleated Red Blood 0.0 Cells % Immature 0.120 H Granulocytes # Neutrophils # Neutrophils # 3.0 (Manual) Band Neutrophils # 2.3 H Lymphocytes (Manual) 0.6 L Lymphocytes # Reactive Lymphocytes 0.0 # Monocytes # Monocytes # (Manual) 0.3 Eosinophils # Basophils # Metamyelocytes # 0.0 Nucleated Red Blood Cells # Platelet Estimate DECREASED Polychromasia 1+ Hypochromasia 1+ Poikilocytosis 1+ Anisocytosis 2+ Macrocytosis 1+ Absolute 0.018 L Reticulocyte Count Percent Reticulocyte 0.6 Count Sodium Level 134 L Potassium Level 3.8 Chloride Level 101 Carbon Dioxide Level 21 Anion Gap 12 Blood Urea Nitrogen 65 H Creatinine 4.19 H Est Glomerular Filtrat Rate mL/min Glucose Level 270 H Calcium Level 9.6 Phosphorus Level 1.9 L Magnesium Level 2.0 Iron Level 22 L Total Iron Binding 113 L Capacity Percent Iron 19 L Saturation Total Bilirubin 0.2 Direct Bilirubin 0.00 Indirect Bilirubin 0.2 Aspartate Amino 17 Transf (AST/SGOT) Alanine 13 Aminotransferase (AL T/SGPT) Alkaline Phosphatase 262 H Total Protein 5.2 L Albumin 2.2 L Globulin 3.00 Albumin/Globulin 0.73 Ratio Bedside Glucose 287 H 290 H Medications Medication Current Medications Ondansetron HCl (Zofran Inj) 4 mg Q6H PRN IV NAUSEA/VOMITING Last administered on 08/19/18 12:55; Admin Dose 4 MG; Start 08/02/18 at 13:00 Diagnostic Test (Pha) (Accu-Chek) 1 ea 02 XX Last administered on 08/22/18 02:08; Admin Dose 1 EA; Start 08/03/18 at 02:00 Glucose (Glutose) 15 gm Q15M PRN PO DECREASED GLUCOSE; Start 08/02/18 at 13:30 Glucose (Glutose) 22.5 gm Q15M PRN PO DECREASED GLUCOSE; Start 08/02/18 at 13 :30 Dextrose (D50w Syringe) 25 ml Q15M PRN IV DECREASED GLUCOSE Last administered on 08/19/18 02:02; Admin Dose 25 ML; Start 08/02/18 at 13:30 Dextrose (D50w Syringe) 50 ml Q15M PRN IV DECREASED GLUCOSE; Start 08/02/18 at 13:30 Glucagon (Glucagen) 1 mg Q15M PRN IM DECREASED GLUCOSE; Start 08/02/18 at 13:30 Glucose (Glutose) 15 gm Q15M PRN BUCCAL DECREASED GLUCOSE; Start 08/02/18 at 13:30 Cholecalciferol (Vitamin D) 1,000 unit DAILY PO Last administered on 08/27/18 09:44; Admin Dose 1,000 UNIT; Start 08/03/18 at 09:00 Folic Acid (Folic Acid) 1 mg DAILY PO Last administered on 08/27/18 09:44; Admin Dose 1 MG; Start 08/03/18 at 09:00 Midodrine (Proamatine) 5 mg ON DIALYSIS DAYS PO Last administered on 08/26/18 08:16; Admin Dose 5 MG; Start 08/02/18 at 18:00 Gabapentin (Neurontin) 100 mg DAILY PO Last administered on 08/13/18 09:07; Admin Dose 100 MG; Start 08/07/18 at 11:30; Status Hold Phenol (Cepastat Lozenge) 1 lozenge Q1H PRN MT COUGH Last administered on 08/08/18 02:34; Admin Dose 1 LOZENGE; Start 08/07/18 at 23:00 Heparin Sodium (Porcine) (Heparin (1000 Units/ml)) 6,100 unit AFTER DIALYSIS CATHETER Last administered on 08/26/18 12:20; Admin Dose 6,100 UNIT; Start 08/16/18 at 22:30 Acetaminophen (Tylenol Tab) 650 mg Q6H PRN PO MILD PAIN(1-3)OR ELEVATED TEMP [place] [facility] administered on 08/18/18 05:59; Admin Dose 650 MG; Start 08/18/18 at 05:30 Levothyroxine Sodium (Synthroid) 50 mcg DAILY@06 PO Last administered on 08/28/18 05:21; Admin Dose 50 MCG; Start 08/20/18 at 06:00 Famotidine (Pepcid) 20 mg DAILY PO Last administered on 08/27/18 09:44; Admin Dose 20 MG; Start 08/21/18 at 09:00 Apixaban (Eliquis) 2.5 mg BID PO Last administered on 08/27/18 21:24; Admin Dose 2.5 MG; Start 08/21/18 at 09:30; Status Hold Diagnostic Test (Pha) (Accu-Chek) 1 ea Q4 XX Last administered on 08/28/18 09:24; Admin Dose 1 EA; Start 08/23/18 at 21:00 Fat Emulsion Intravenous 250 ml @ 21 mls/hr DAILY IV Last administered on 08/28/18 09:55; Admin Dose 21 MLS/HR; Start 08/24/18 at 14:00 Piperacillin Sod/ Tazobactam Sod 100 ml @ 200 mls/hr Q8 IVPB Last administered on 08/28/18 05:21; Admin Dose 200 MLS/HR; Start 08/24/18 at 14:00 Total Parenteral Nutrition 1,000 ml @ 65 mls/hr [id number] IV Last administered on 08/27/18 21:49; Admin Dose 65 MLS/HR; Start 08/24/18 at 16:00 Ketorolac Tromethamine (Toradol) 15 mg Q6H PRN IV PAIN Last administered on 08/28/18 02:57; Admin Dose 15 MG; Start 08/25/18 at 12:00; Stop 08/28/18 at 11:59 Albumin Human 100 ml @ 100 mls/hr WITH DIALYSIS PRN IV SBP <90 DURING DIALYSIS Last administered on 3/11/19at 09:29; Admin Dose 100 MLS/HR; Start 08/26/18 at 08:30 Loperamide HCl (Imodium Cap) 4 mg DAILY PO Last administered on 08/27/18at 09:44; Admin Dose 4 MG; Start 08/27/18 at 09:00 Insulin Aspart (Novolog Insulin Pen) NOVOLOG *MODERATE* ALGORITHM Q4 SC Last administered on 08/28/18at 09:50; Admin Dose 8 UNIT; Start 08/27/18 at 13:00 Sodium Phosphate 30 mmol/Sodium Chloride 260 ml @ 43.333 mls/ hr ONCE ONCE IV* ; Start 08/28/18 at 11:00; Stop 08/28/18 at 16:59 Insulin Glargine (Lantus) 30 units BID@0800,2000 SC ; Start 08/28/18 at 20:00 NNEKA FRITZ MD Aug 28, 2018 11:48
[2018-08-28] MEDS: BALSAM PERU/CASTOR OIL 60 GM TUBE TOP SCH (11:57)
[2018-08-28] MEDS: SOD FERRIC GLUC COMPLX 125 MG in SOD CHLORIDE 0.9% 100 ML IVPB SCH (13:30)
[2018-08-28] MEDS: TPN 1,000 ML IV SCH (13:38)
--- NOTE | 2018-08-28 13:59 | CONS ---
Assessment/Plan Assessment/Plan Hospital Course (Demo Recall) Patient is awake and in no distress no fevers overnight he looks comfortable Indwelling: Right IJ triple-lumen catheter, right femoral Filemon, left upper extremity AV graft or fistula that is nonfunctioning Physical examination: Chronically ill-appearing elderly man who is noncommunicative in no distress. Head atraumatic normocephalic. Sclera nonicteric. Neck is supple, chest rise symmetrical. Heart: S1-S2. Abdomen soft bowel sounds present. Extremities without cyanosis. 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 ESRD/HD Clotted LUE AVF R brachial DVT DM CAD/PPM R fem filemon Abx: Zosyn Plan: Stable, surgical recommendations noted, will discontinue antibiotics and observe, continue TPN, follow oncology recommendations, hemodialysis per renal Consultation Date/Type/Reason Admit Date/Time Aug 02, 2018 at 10:57 Initial Consult Date 08/09/18 Type of Consult id Requesting Provider: DULCE GALINDO Date/Time of Note DATE: 08/28/18 TIME: 13:58 Exam/Review of Systems Exam Vitals Vital Signs Date Temp Pulse Resp B/P (MAP) Pulse Ox O2 O2 Flow FiO2 Time Delivery Rate 08/28/18 96.9 81 18 99/58 (72) 93 Nasal 07:54 Cannula 08/27/18 3.0 23:30 Intake and Output 08/27/18 08/27/18 08/28/18 1515:00 23:00 07:00 IntakeIntake Total 100 ml 1263 ml 657 ml OutputOutput Total 600 ml 650 ml BalanceBalance -500 ml 613 ml 657 ml Results Result Diagram: 08/28/18 0439 08/28/18 0439 Results 24hrs Laboratory Tests Test 08/27/18 17:56 08/27/18 21:27 08/28/18 01:27 08/28/18 04:39 Bedside Glucose 356 H 292 H 293 H White Blood Count 6.6 Red Blood Count 2.97 L Hemoglobin 8.5 L Hematocrit 28.1 L Mean Corpuscular 94.6 Volume Mean Corpuscular 28.6 L Hemoglobin Mean Corpuscular 30.2 L Hemoglobin Concent Red Cell 16.2 H Distribution Width Platelet Count 44 #L Mean Platelet Volume 14.0 H Immature 1.800 H Granulocytes % Neutrophils % Segmented 43 Neutrophils % (Manual) Band Neutrophils % 36 H (Manual) Lymphocytes % Lymphocytes % 10 L (Manual) Reactive Lymphocytes 1 H % (Manual) Monocytes % Monocytes % (Manual) 5 Eosinophils % Eosinophils % 4 (Manual) Basophils % Metamyelocytes % 1 H (manual) Nucleated Red Blood 0.0 Cells % Immature 0.120 H Granulocytes # Neutrophils # Neutrophils # 3.0 (Manual) Band Neutrophils # 2.3 H Lymphocytes (Manual) 0.6 L Lymphocytes # Reactive Lymphocytes 0.0 # Monocytes # Monocytes # (Manual) 0.3 Eosinophils # Basophils # Metamyelocytes # 0.0 Nucleated Red Blood Cells # Platelet Estimate DECREASED Polychromasia 1+ Hypochromasia 1+ Poikilocytosis 1+ Anisocytosis 2+ Macrocytosis 1+ Absolute 0.018 L Reticulocyte Count Percent Reticulocyte 0.6 Count Sodium Level 134 L Potassium Level 3.8 Chloride Level 101 Carbon Dioxide Level 21 Anion Gap 12 Blood Urea Nitrogen 65 H Creatinine 4.19 H Est Glomerular Filtrat Rate mL/min Glucose Level 270 H Calcium Level 9.6 Phosphorus Level 1.9 L Magnesium Level 2.0 Iron Level 22 L Total Iron Binding 113 L Capacity Percent Iron 19 L Saturation Total Bilirubin 0.2 Direct Bilirubin 0.00 Indirect Bilirubin 0.2 Aspartate Amino 17 Transf (AST/SGOT) Alanine 13 Aminotransferase (AL T/SGPT) Alkaline Phosphatase 262 H Total Protein 5.2 L Albumin 2.2 L Globulin 3.00 Albumin/Globulin 0.73 Ratio Test 08/28/18 05:17 08/28/18 09:24 08/28/18 13:27 Bedside Glucose 287 H 290 H 139 Medications Medication Current Medications Ondansetron HCl (Zofran Inj) 4 mg Q6H PRN IV NAUSEA/VOMITING Last administered on 08/19/18at 12:55; Admin Dose 4 MG; Start 08/02/18 at 13:00 Diagnostic Test (Pha) (Accu-Chek) 1 ea 02 XX Last administered on 08/22/18at 02:08; Admin Dose 1 EA; Start 08/03/18 at 02:00 Glucose (Glutose) 15 gm Q15M PRN PO DECREASED GLUCOSE; Start 08/02/18 at 13:30 Glucose (Glutose) 22.5 gm Q15M PRN PO DECREASED GLUCOSE; Start 08/02/18 at 13:30 Dextrose (D50w Syringe) 25 ml Q15M PRN IV DECREASED GLUCOSE Last administered on 08/19/18 02:02; Admin Dose 25 ML; Start 08/02/18 at 13:30 Dextrose (D50w Syringe) 50 ml Q15M PRN IV DECREASED GLUCOSE; Start 08/02/18 at 13:30 Glucagon (Glucagen) 1 mg Q15M PRN IM DECREASED GLUCOSE; Start 08/02/18 at 13:30 Glucose (Glutose) 15 gm Q15M PRN BUCCAL DECREASED GLUCOSE; Start 08/02/18 at 13:30 Cholecalciferol (Vitamin D) 1,000 unit DAILY PO Last administered on 08/27/18 09:44; Admin Dose 1,000 UNIT; Start 08/03/18 at 09:00 Folic Acid (Folic Acid) 1 mg DAILY PO Last administered on 08/27/18 09:44; Admin Dose 1 MG; Start 08/03/18 at 09:00 Midodrine (Proamatine) 5 mg ON DIALYSIS DAYS PO Last administered on 08/26/18 08:16; Admin Dose 5 MG; Start 08/02/18 at 18:00 Gabapentin (Neurontin) 100 mg DAILY PO Last administered on 08/13/18 09:07; Admin Dose 100 MG; Start 08/07/18 at 11:30; Status Hold Phenol (Cepastat Lozenge) 1 lozenge Q1H PRN MT COUGH Last administered on 08/08/18 02:34; Admin Dose 1 LOZENGE; Start 08/07/18 at 23:00 Heparin Sodium (Porcine) (Heparin (1000 Units/ml)) 6,100 unit AFTER DIALYSIS CATHETER Last administered on 08/26/18 12:20; Admin Dose 6,100 UNIT; Start 08/16/18 at 22:30 Acetaminophen (Tylenol Tab) 650 mg Q6H PRN PO MILD PAIN(1-3)OR ELEVATED TEMP Last administered on 08/18/18 05:59; Admin Dose 650 MG; Start 08/18/18 at 05:30 Levothyroxine Sodium (Synthroid) 50 mcg DAILY@06 PO Last administered on 08/28/18 05:21; Admin Dose 50 MCG; Start 08/20/18 at 06:00 Famotidine (Pepcid) 20 mg DAILY PO Last administered on 08/27/18 09:44; Admin Dose 20 MG; Start 08/21/18 at 09:00 Apixaban (Eliquis) 2.5 mg BID PO Last administered on 08/27/18 21:24; Admin Dose 2.5 MG; Start 08/21/18 at 09:30; Status Hold Diagnostic Test (Pha) (Accu-Chek) 1 ea Q4 XX Last administered on 08/28/18 13:32; Admin Dose 1 EA; Start 08/23/18 at 21:00 Fat Emulsion Intravenous 250 ml @ 21 mls/hr DAILY IV Last administered on 08/28/18 09:55; Admin Dose 21 MLS/HR; Start 08/24/18 at 14:00 Piperacillin Sod/ Tazobactam Sod 100 ml @ 200 mls/hr Q8 IVPB Last administered on 08/28/18 05:21; Admin Dose 200 MLS/HR; Start 08/24/18 at 14:00 Total Parenteral Nutrition 1,000 ml @ 65 mls/hr [id number] IV Last administered on 08/28/18 13:38; Admin Dose 65 MLS/HR; Start 08/24/18 at 16:00 Albumin Human 100 ml @ 100 mls/hr WITH DIALYSIS PRN IV SBP <90 DURING DIALYSIS Last administered on 08/26/18 09:29; Admin Dose 100 MLS/HR; Start 08/26/18 at 08:30 Loperamide HCl (Imodium Cap) 4 mg DAILY PO Last administered on 08/27/18 09:44; Admin Dose 4 MG; Start 08/27/18 at 09:00 Insulin Aspart (Novolog Insulin Pen) NOVOLOG *MODERATE* ALGORITHM Q4 SC Last administered on 08/28/18 09:50; Admin Dose 8 UNIT; Start 08/27/18 at 13:00 Sodium Phosphate 30 mmol/Sodium Chloride 260 ml @ 43.333 mls/ hr ONCE ONCE IV* Last administered on 08/28/18 11:57; Admin Dose 43.333 MLS/HR; Start 08/28/18 at 11:00; Stop 08/28/18 at 16:59 Insulin Glargine (Lantus) 30 units BID@0800,2000 SC ; Start 08/28/18 at 20:00 Ferric Sodium Gluconate Complex 125 mg/Sodium Chloride 110 ml @ 110 mls/hr DAILY@1300 IVPB Last administered on 08/28/18at 13:30; Admin Dose 110 MLS/HR; Start 08/28/18 at 13:00; Stop 09/01/18 at 13:59 CHIN FORD NP Aug 28, 2018 13:59
--- NOTE | 2018-08-28 14:33 | PN ---
Date/Time of Note Date/Time of Note DATE: 08/28/18 TIME: 14:30 Objective Vitals Vital Signs Date Temp Pulse Resp B/P (MAP) Pulse Ox O2 O2 Flow FiO2 Time Delivery Rate 08/28/18 96.9 81 18 99/58 (72) 93 Nasal 07:54 Cannula 08/27/18 3.0 23:30 Intake and Output 08/27/18 08/27/18 08/28/18 1515:00 23:00 07:00 IntakeIntake Total 100 ml 1263 ml 657 ml OutputOutput Total 600 ml 650 ml BalanceBalance -500 ml 613 ml 657 ml Results Result Diagram: 08/28/189 08/28/18438 Medications Medications Current Medications Ondansetron HCl (Zofran Inj) 4 mg Q6H PRN IV NAUSEA/VOMITING Last administered on 08/19/18at 12:55; Admin Dose 4 MG; Start 08/02/18 at 13:00 Diagnostic Test (Pha) (Accu-Chek) 1 ea 02 XX Last administered on 08/22/18at 02:08; Admin Dose 1 EA; Start 08/03/18 at 02:00 Glucose (Glutose) 15 gm Q15M PRN PO DECREASED GLUCOSE; Start 08/02/18 at 13:30 Glucose (Glutose) 22.5 gm Q15M PRN PO DECREASED GLUCOSE; Start 08/02/18 at 13:30 Dextrose (D50w Syringe) 25 ml Q15M PRN IV DECREASED GLUCOSE Last administered on 08/19/18at 02:02; Admin Dose 25 ML; Start 08/02/18 at 13:30 Dextrose (D50w Syringe) 50 ml Q15M PRN IV DECREASED GLUCOSE; Start 08/02/18 at 13:30 Glucagon (Glucagen) 1 mg Q15M PRN IM DECREASED GLUCOSE; Start 08/02/18 at 13:30 Glucose (Glutose) 15 gm Q15M PRN BUCCAL DECREASED GLUCOSE; Start 08/02/18 at 13:30 Cholecalciferol (Vitamin D) 1,000 unit DAILY PO Last administered on 08/27/18 09:44; Admin Dose 1,000 UNIT; Start 08/03/18 at 09:00 Folic Acid (Folic Acid) 1 mg DAILY PO Last administered on 08/27/18 09:44; Admin Dose 1 MG; Start 08/03/18 at 09:00 Midodrine (Proamatine) 5 mg ON DIALYSIS DAYS PO Last administered on 08/26/18 08:16; Admin Dose 5 MG; Start 08/02/18 at 18:00 Gabapentin (Neurontin) 100 mg DAILY PO Last administered on 08/13/18 09:07; Admin Dose 100 MG; Start 08/07/18 at 11:30; Status Hold Phenol (Cepastat Lozenge) 1 lozenge Q1H PRN MT COUGH Last administered on 08/08/18 02:34; Admin Dose 1 LOZENGE; Start 08/07/18 at 23:00 Heparin Sodium (Porcine) (Heparin (1000 Units/ml)) 6,100 unit AFTER DIALYSIS CATHETER Last administered on 08/26/18 12:20; Admin Dose 6,100 UNIT; Start 08/16/18 at 22:30 Acetaminophen (Tylenol Tab) 650 mg Q6H PRN PO MILD PAIN(1-3)OR ELEVATED TEMP Last administered on 08/18/18 05:59; Admin Dose 650 MG; Start 08/18/18 at 05:30 Levothyroxine Sodium (Synthroid) 50 mcg DAILY@06 PO Last administered on 08/28/18 05:21; Admin Dose 50 MCG; Start 08/20/18 at 06:00 Famotidine (Pepcid) 20 mg DAILY PO Last administered on 08/27/18 09:44; Admin Dose 20 MG; Start 08/21/18 at 09:00 Apixaban (Eliquis) 2.5 mg BID PO Last administered on 08/27/18 21:24; Admin Dose 2.5 MG; Start 08/21/18 at 09:30; Status Hold Diagnostic Test (Pha) (Accu-Chek) 1 ea Q4 XX Last administered on 08/28/18 13:32; Admin Dose 1 EA; Start 08/23/18 at 21:00 Fat Emulsion Intravenous 250 ml @ 21 mls/hr DAILY IV Last administered on 08/28/18 09:55; Admin Dose 21 MLS/HR; Start 08/24/18 at 14:00 Total Parenteral Nutrition 1,000 ml @ 65 mls/hr [id number] IV Last administered on 08/28/18 13:38; Admin Dose 65 MLS/HR; Start 08/24/18 at 16:00 Albumin Human 100 ml @ 100 mls/hr WITH DIALYSIS PRN IV SBP <90 DURING DIALYSIS Last administered on 08/26/18at 09:29; Admin Dose 100 MLS/HR; Start 08/26/18 at 08:30 Loperamide HCl (Imodium Cap) 4 mg DAILY PO Last administered on 08/27/18at 09:44; Admin Dose 4 MG; Start 08/27/18 at 09:00 Insulin Aspart (Novolog Insulin Pen) NOVOLOG *MODERATE* ALGORITHM Q4 SC Last administered on 08/28/18at 09:50; Admin Dose 8 UNIT; Start 08/27/18 at 13:00 Sodium Phosphate 30 mmol/Sodium Chloride 260 ml @ 43.333 mls/ hr ONCE ONCE IV* Last administered on 08/28/18at 11:57; Admin Dose 43.333 MLS/HR; Start 08/28/18 at 11:00; Stop 08/28/18 at 16:59 Insulin Glargine (Lantus) 30 units BID@0800,2000 SC ; Start 08/28/18 at 20:00 Ferric Sodium Gluconate Complex 125 mg/Sodium Chloride 110 ml @ 110 mls/hr DAILY@1300 IVPB Last administered on 08/28/18at 13:30; Admin Dose 110 MLS/HR; Start 08/28/18 at 13:00; Stop 09/01/18 at 13:59 VTE Prophylaxis Risk score (from Ns)>0 risk: 13 SCD applied (from Ns): Yes Lines/Catheters IV Catheter Type: Granger in Place: Yes Cont'd granger catheter reason: terminal illness/intractable pain Assessment/Plan Hospital Course Subjective Patient alert but slightly more confused today than yesterday Subjective Physical exam General: Patient is laying in bed and answers questions appropriately Mentation: Patient is alert and oriented to self Head: Normocephalic atraumatic Eyes: EOMI, pupils reactive to light Neck: Supple, nontender, midline Respiratory: Clear to auscultation bilaterally Cardiovascular: regular rate, no obvious murmurs Gastrointestinal: Moderately tender to palpation, bowel sounds heard. Neurological: Moves all extremities spontaneously Skin: No new skin lesions Assessment/Plan 1. 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 patient kept NPO and on TPN at this time - Dr. Meneses/Jimbo on board and appreciate consultation - GI on board and appreciate recommendations. 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 Will need 36 months of adjuvant therapy for GIST tumor once abdominal wounds healed but no further intervention for adenoca rcinoma - Cardiology consultation appreciated - ID consulted for possible prophylaxis abx 2. End-stage renal disease on HD - Nephrology on board for HD management and appreciate recommendations - clogged fistula catheter (HeRO), consulted Dr. Coelho for recs as he is patient's vascular surgeon, recommended Horacio for now until we can fully anticoagulate. Follow as outpatient. On Eliquis and tolerating Anemia -Likely secondary to above chronic anemia secondary to end-stage renal disease -Monitor hemoglobin levels, attempted to restart Eliquis, however due to continued mild decrease in hemoglobin we will once again hold. Encephalopathy -Progressively worsening for the past week, today to encephalopathic to even take oral medications, CT head showing mastoiditis and some sinus issues but no CVA -MRI unable to be done due to pacemaker -Neurology consulted, Dr. Taylor GI bleed 2/2 to above mass - resolved Arm swelling - Ultrasound showed right brachial DVT as well as thrombosis of the left cephalic vein. Patient's midline on his right arm is the likely culprit for the DVT on his right brachial vein. - dialysis catheter in left arm clotted for now, no Cathflo due to recent s urgery per vascular surgery - monitor, warm compresses. - Patient is likely an hypercoagulable state due to his carcinoma and started on Eliquis 5. Diabetes - A1c noted - counseled about importance of diet choices and glucose control - Continue Lantus and ISS. adjust as needed 6. Esophagitis - Continue PPI 7. Hypothyroidism - Continue home Synthroid 8. 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 Mild acute on chronic systolic HF - fluid removal during HD 10. 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 and remains NPO. Output decreasing - Continue on TPN at this time -Hold Eliquis again, keep continue to monitor hemoglobin -Neurology consultation pending for encephalopathy DULCE GALINDO Aug 28, 2018 14:33
--- NOTE | 2018-08-28 15:33 | CONS ---
Assessment/Plan Assessment/Plan Hospital Course 78 M c/ ESRD and other comorbidities, who initially presented 1 month ago for management of generalized weakness, difficulty and other complaints. He is noted have become progressively altered over the course of days, for which neurology is consulted... The clinical picture could be consistent with an acute and multifactorial toxic- metabolic encephalopathy.. Seizure/stroke are less likely. HCT is unrevealing. MRI brain is contraindicated 2/2 PPM.. P: Add CXR Add TSH Add repeat Blood Cx Repeat ammonia level [place] as able Limit sedating medications where possible Other management per primary Will follow clinically Consultation Date/Type/Reason Admit Date/Time Aug 02, 2018 at 10:57 Type of Consult Neurology Reason for Consultation ams Requesting Provider: DULCE GALINDO Date/Time of Note DATE: 08/28/18 TIME: 15:33 Hx of Present Illness Patient is unable to contribute a Hx.. It is elsewhere noted: Patient is a 76-year-old male with a history of hypertension, dyslipidemia, hypothyroidism, diabetes, esophagitis/duodenitis/gastritis, upper GI bleed as well as end-stage renal disease on dialysis. Patient presents with 2 weeks of progressive weakness and difficulty ambulating as well as hematochezia. Patient has been reporting loose stools for the past several weeks. In the ER CT abdomen was done which showed a large colonic mass at the splenic flexure. Patient was reportedly at [facility] several weeks ago, diagnosis at that time was unclear. Patient currently has no other acute complaints. 12 Pt ROS is limited by ams Exam/Review of Systems Exam Vitals Vital Signs Date Temp Pulse Resp B/P (MAP) Pulse Ox O2 O2 Flow FiO2 Time Delivery Rate 08/28/18 96.9 81 18 99/58 (72) 93 Nasal 07:54 Cannula 08/27/18 3.0 23:30 Intake and Output 08/27/18 08/27/18 08/28/18 1515:00 23:00 07:00 IntakeIntake Total 100 ml 1263 ml 657 ml OutputOutput Total 600 ml 650 ml BalanceBalance -500 ml 613 ml 657 ml Exam PE: Gen Appearance: No Apparent Distress HEENT: Normocephalic; on nasal cannula Cardiovascular: Regular rate Abdomen: Soft Extremities: Dry NE: The patient was lethargic and sparsely verbal; disoriented. Able to follow simple axial and appendicular commands. Cranial nerve examination was limited by mental status. Pupils were equal and reactive to light. There was no afferent pupillary defect. Funduscopic examination was limited. Face was grossly symmetric, w/ present corneal and cough reflexes. Tone was normal. Muscle bulk was normal. I did not see fasciculations. The patient withdrew to noxious stimulation x 4. Coordination and gait testing was limited by mental status. Arm and leg reflexes were within normal limits and symmetric. Lee's sign was absent. Plantar responses were flexor. Results Result Diagram: 08/28/18 0439 08/28/18 0439 Results 24hrs Laboratory Tests Test 08/27/18 17:56 08/27/18 21:27 08/28/18 01:27 08/28/18 04:39 Bedside Glucose 356 H 292 H 293 H White Blood Count 6.6 Red Blood Count 2.97 L Hemoglobin 8.5 L Hematocrit 28.1 L Mean Corpuscular 94.6 Volume Mean Corpuscular 28.6 L Hemoglobin Mean Corpuscular 30.2 L Hemoglobin Concent Red Cell 16.2 H Distribution Width Platelet Count 44 #L Mean Platelet Volume 14.0 H Immature 1.800 H Granulocytes % Neutrophils % Segmented 43 Neutrophils % (Manual) Band Neutrophils % 36 H (Manual) Lymphocytes % Lymphocytes % 10 L (Manual) Reactive Lymphocytes 1 H % (Manual) Monocytes % Monocytes % (Manual) 5 Eosinophils % Eosinophils % 4 (Manual) Basophils % Metamyelocytes % 1 H (manual) Nucleated Red Blood 0.0 Cells % Immature 0.120 H Granulocytes # Neutrophils # Neutrophils # 3.0 (Manual) Band Neutrophils # 2.3 H Lymphocytes (Manual) 0.6 L Lymphocytes # Reactive Lymphocytes 0.0 # Monocytes # Monocytes # (Manual) 0.3 Eosinophils # Basophils # Metamyelocytes # 0.0 Nucleated Red Blood Cells # Platelet Estimate DECREASED Polychromasia 1+ Hypochromasia 1+ Poikilocytosis 1+ Anisocytosis 2+ Macrocytosis 1+ Absolute 0.018 L Reticulocyte Count Percent Reticulocyte 0.6 Count Sodium Level 134 L Potassium Level 3.8 Chloride Level 101 Carbon Dioxide Level 21 Anion Gap 12 Blood Urea Nitrogen 65 H Creatinine 4.19 H Est Glomerular Filtrat Rate mL/min Glucose Level 270 H Calcium Level 9.6 Phosphorus Level 1.9 L Magnesium Level 2.0 Iron Level 22 L Total Iron Binding 113 L Capacity Percent Iron 19 L Saturation Total Bilirubin 0.2 Direct Bilirubin 0.00 Indirect Bilirubin 0.2 Aspartate Amino 17 Transf (AST/SGOT) Alanine 13 Aminotransferase (AL T/SGPT) Alkaline Phosphatase 262 H Total Protein 5.2 L Albumin 2.2 L Globulin 3.00 Albumin/Globulin 0.73 Ratio Test 08/28/18 05:17 08/28/18 09:24 08/28/18 13:27 Bedside Glucose 287 H 290 H 139 Medications Medication Current Medications Ondansetron HCl (Zofran Inj) 4 mg Q6H PRN IV NAUSEA/VOMITING Last administered on 08/19/18 12:55; Admin Dose 4 MG; Start 08/02/18 at 13:00 Diagnostic Test (Pha) (Accu-Chek) 1 ea 02 XX Last administered on 08/22/18 02: 08; Admin Dose 1 EA; Start 08/03/18 at 02:00 Glucose (Glutose) 15 gm Q15M PRN PO DECREASED GLUCOSE; Start 08/02/18 at 13:30 Glucose (Glutose) 22.5 gm Q15M PRN PO DECREASED GLUCOSE; Start 08/02/18 at 13:30 Dextrose (D50w Syringe) 25 ml Q15M PRN IV DECREASED GLUCOSE Last administered on 08/19/18 02:02; Admin Dose 25 ML; Start 08/02/18 at 13:30 Dextrose (D50w Syringe) 50 ml Q15M PRN IV DECREASED GLUCOSE; Start 08/02/18 at 13:30 Glucagon (Glucagen) 1 mg Q15M PRN IM DECREASED GLUCOSE; Start 08/02/18 at 13:30 Glucose (Glutose) 15 gm Q15M PRN BUCCAL DECREASED GLUCOSE; Start 08/02/18 at 13:30 Cholecalciferol (Vitamin D) 1,000 unit DAILY PO Last administered on 08/27/18 09:44; Admin Dose 1,000 UNIT; Start 08/03/18 at 09:00 Folic Acid (Folic Acid) 1 mg DAILY PO Last administered on 08/27/18 09:44; Admin Dose 1 MG; Start 08/03/18 at 09:00 Midodrine (Proamatine) 5 mg ON DIALYSIS DAYS PO Last administered on 08/26/18 08:16; Admin Dose 5 MG; Start 08/02/18 at 18:00 Gabapentin (Neurontin) 100 mg DAILY PO Last administered on 08/13/18 09:07; Admin Dose 100 MG; Start 08/07/18 at 11:30; Status Hold Phenol (Cepastat Lozenge) 1 lozenge Q1H PRN MT COUGH Last administered on 08/08/18 02:34; Admin Dose 1 LOZENGE; Start 08/07/18 at 23:00 Heparin Sodium (Porcine) (Heparin (1000 Units/ml)) 6,100 unit AFTER DIALYSIS CATHETER Last administered on 08/26/18 12:20; Admin Dose 6,100 UNIT; Start 08/16/18 at 22:30 Acetaminophen (Tylenol Tab) 650 mg Q6H PRN PO MILD PAIN(1-3)OR ELEVATED TEMP Last administered on 08/18/18 05:59; Admin Dose 650 MG; Start 08/18/18 at 05:30 Levothyroxine Sodium (Synthroid) 50 mcg DAILY@06 PO Last administered on 08/28/18 05:21; Admin Dose 50 MCG; Start 08/20/18 at 06:00 Famotidine (Pepcid) 20 mg DAILY PO Last administered on 08/27/18 09:44; Admin Dose 20 MG; Start 08/21/18 at 09:00 Apixaban (Eliquis) 2.5 mg BID PO Last administered on 08/27/18 21:24; Admin Dose 2.5 MG; Start 08/21/18 at 09:30; Status Hold Diagnostic Test (Pha) (Accu-Chek) 1 ea Q4 XX Last administered on 08/28/18 13:32; Admin Dose 1 EA; Start 08/23/18 at 21:00 Fat Emulsion Intravenous 250 ml @ 21 mls/hr DAILY IV Last administered on 08/28/18 09:55; Admin Dose 21 MLS/HR; Start 08/24/18 at 14:00 Total Parenteral Nutrition 1,000 ml @ 65 mls/hr [id number] IV Last administered on 08/28/18 13:38; Admin Dose 65 MLS/HR; Start 08/24/18 at 16:00 Albumin Human 100 ml @ 100 mls/hr WITH DIALYSIS PRN IV SBP <90 DURING DIALYSIS Last administered on 08/26/18 09:29; Admin Dose 100 MLS/HR; Start 08/26/18 at 08:30 Loperamide HCl (Imodium Cap) 4 mg DAILY PO Last administered on 08/27/18at 09:44; Admin Dose 4 MG; Start 08/27/18 at 09:00 Insulin Aspart (Novolog Insulin Pen) NOVOLOG *MODERATE* ALGORITHM Q4 SC Last administered on 08/28/18at 09:50; Admin Dose 8 UNIT; Start 08/27/18 at 13:00 Sodium Phosphate 30 mmol/Sodium Chloride 260 ml @ 43.333 mls/ hr ONCE ONCE IV* Last administered on 08/28/18at 11:57; Admin Dose 43.333 MLS/HR; Start 08/28/18 at 11:00; Stop 08/28/18 at 16:59 Insulin Glargine (Lantus) 30 units BID@0800,2000 SC ; Start 08/28/18 at 20:00 Ferric Sodium Gluconate Complex 125 mg/Sodium Chloride 110 ml @ 110 mls/hr DAILY@1300 IVPB Last administered on 08/28/18at 13:30; Admin Dose 110 MLS/HR; Start 08/28/18 at 13:00; Stop 09/01/18 at 13:59 Past Medical History reviewed Medical History: congestive heart failure, diabetes, renal disease Home Meds Active Scripts Hydrocodone/Acetaminophen ([place] 5-325 Tablet) 1 Each Tablet, 1 EACH PO Q8 PRN for PAIN, #21 TAB Prov:DULCE GALINDO 03/29/17 Reported Medications Midodrine* (Midodrine*) 5 Mg Tablet, 5 MG PO DAILY, TAB THE DAYS OF DIALYSIS 08/02/18 Nortriptyline Hcl* (Nortriptyline Hcl*) 10 Mg Capsule, 10 MG PO TID, CAP 08/02/18 Aspirin* (Aspirin* Chew) 81 Mg Tab.chew, 81 MG PO DAILY, TAB.CHEW 08/02/18 Cholecalciferol* (Vitamin D3*) 1,000 Unit Tablet, 1000 UNIT PO DAILY, TAB 03/28/17 Cyanocobalamin* (Vitamin B12*) Unknown Strength Tab, 1 TAB PO Q MON,FRI, TAB 03/28/17 Sevelamer Carbonate* (Renvela*) 800 Mg Tablet, 0.8 GM PO WITH MEALS BID, TAB 03/28/17 Levothyroxine Sodium* (Synthroid*) 50 Mcg Tablet, 50 MCG PO BEFORE BREAKFAST, #30 TAB 08/21/16 Atorvastatin Calcium* (Atorvastatin Calcium*) 20 Mg Tablet, 20 MG PO QHS, #30 TAB 08/21/16 Folic Acid* (Folic Acid*) 1 Mg Tablet, 1 MG PO DAILY, TAB 08/21/16 Insulin Lispro (Humalog) 100 Unit/1 Ml Cartridge, 0 SQ TID SLIDING SCALES 08/21/16 Insulin Glargine* (Lantus*) 100 Unit/Ml Soln, 20 UNIT SC BID, #1 VIAL 08/21/16 Medications Current Medications Ondansetron HCl (Zofran Inj) 4 mg Q6H PRN IV NAUSEA/VOMITING Last administered on 08/19/18at 12:55; Admin Dose 4 MG; Start 08/02/18 at 13:00 Diagnostic Test (Pha) (Accu-Chek) 1 ea 02 XX Last administered on 08/22/18at 02:08; Admin Dose 1 EA; Start 08/03/18 at 02:00 Glucose (Glutose) 15 gm Q15M PRN PO DECREASED GLUCOSE; Start 08/02/18 at 13:30 Glucose (Glutose) 22.5 gm Q15M PRN PO DECREASED GLUCOSE; Start 08/02/18 at 13:30 Dextrose (D50w Syringe) 25 ml Q15M PRN IV DECREASED GLUCOSE Last administered on 08/19/18 02:02; Admin Dose 25 ML; Start 08/02/18 at 13:30 Dextrose (D50w Syringe) 50 ml Q15M PRN IV DECREASED GLUCOSE; Start 08/02/18 at 13:30 Glucagon (Glucagen) 1 mg Q15M PRN IM DECREASED GLUCOSE; Start 08/02/18 at 13:30 Glucose (Glutose) 15 gm Q15M PRN BUCCAL DECREASED GLUCOSE; Start 08/02/18 at 13:30 Cholecalciferol (Vitamin D) 1,000 unit DAILY PO Last administered on 08/27/18at 09:44; Admin Dose 1,000 UNIT; Start 08/03/18 at 09:00 Folic Acid (Folic Acid) 1 mg DAILY PO Last administered on 08/27/18at 09:44; Admin Dose 1 MG; Start 08/03/18 at 09:00 Midodrine (Proamatine) 5 mg ON DIALYSIS DAYS PO Last administered on 08/26/18 08:16; Admin Dose 5 MG; Start 08/02/18 at 18:00 Gabapentin (Neurontin) 100 mg DAILY PO Last administered on 08/13/18 09:07; Admin Dose 100 MG; Start 08/07/18 at 11:30; Status Hold Phenol (Cepastat Lozenge) 1 lozenge Q1H PRN MT COUGH Last administered on 08/08/18 02:34; Admin Dose 1 LOZENGE; Start 08/07/18 at 23:00 Heparin Sodium (Porcine) (Heparin (1000 Units/ml)) 6,100 unit AFTER DIALYSIS CATHETER Last administered on 08/26/18 12:20; Admin Dose 6,100 UNIT; Start 08/16/18 at 22:30 Acetaminophen (Tylenol Tab) 650 mg Q6H PRN PO MILD PAIN(1-3)OR ELEVATED TEMP Last administered on 08/18/18 05:59; Admin Dose 650 MG; Start 08/18/18 at 05:30 Levothyroxine Sodium (Synthroid) 50 mcg DAILY@06 PO Last administered on 08/28/18 05:21; Admin Dose 50 MCG; Start 08/20/18 at 06:00 Famotidine (Pepcid) 20 mg DAILY PO Last administered on 08/27/18 09:44; Admin Dose 20 MG; Start 08/21/18 at 09:00 Apixaban (Eliquis) 2.5 mg BID PO Last administered on 08/27/18 21:24; Admin Dose 2.5 MG; Start 08/21/18 at 09:30; Status Hold Diagnostic Test (Pha) (Accu-Chek) 1 ea Q4 XX Last administered on 08/28/18 13:32; Admin Dose 1 EA; Start 08/23/18 at 21:00 Fat Emulsion Intravenous 250 ml @ 21 mls/hr DAILY IV Last administered on 08/28/18 09:55; Admin Dose 21 MLS/HR; Start 08/24/18 at 14:00 Total Parenteral Nutrition 1,000 ml @ 65 mls/hr [id number] IV Last administered on 08/28/18 13:38; Admin Dose 65 MLS/HR; Start 08/24/18 at 16:00 Albumin Human 100 ml @ 100 mls/hr WITH DIALYSIS PRN IV SBP <90 DURING DIALYSIS Last administered on 08/26/18 09:29; Admin Dose 100 MLS/HR; Start 08/26/18 at 08:30 Loperamide HCl (Imodium Cap) 4 mg DAILY PO Last administered on 08/27/18at 09:44; Admin Dose 4 MG; Start 08/27/18 at 09:00 Insulin Aspart (Novolog Insulin Pen) NOVOLOG *MODERATE* ALGORITHM Q4 SC Last administered on 08/28/18at 09:50; Admin Dose 8 UNIT; Start 08/27/18 at 13:00 Sodium Phosphate 30 mmol/Sodium Chloride 260 ml @ 43.333 mls/ hr ONCE ONCE IV* Last administered on 08/28/18at 11:57; Admin Dose 43.333 MLS/HR; Start 08/28/18 at 11:00; Stop 08/28/18 at 16:59 Insulin Glargine (Lantus) 30 units BID@0800,2000 SC ; Start 08/28/18 at 20:00 Ferric Sodium Gluconate Complex 125 mg/Sodium Chloride 110 ml @ 110 mls/hr DAILY@1300 IVPB Last administered on 08/28/18at 13:30; Admin Dose 110 MLS/HR; Start 08/28/18 at 13:00; Stop 09/01/18 at 13:59 Allergies: Coded Allergies: hydromorphone (Verified Allergy, Unknown, UNKNOWN, 08/16/18) per family's ( & daughter [RN]) report, pt has hallucinations after administration. meperidine (Verified Allergy, Unknown, 08/16/18) FROM [facility] OF [facility] Past Surgical History reviewed Past Surgical Hx: cholecystectomy (2008), other (Hip replacement, and prostatectomy for cancer) Social History reviewed Alcohol Use: none Smoking Status: Never smoker Drug Use: none ARTUR ROACH NP Aug 28, 2018 15:33 KILO BENTON Aug 28, 2018 16:32
[2018-08-28] MEDS ORDERED: ALBUTEROL/IPRATROPIUM (NEB) 3 ML AMP HHN PRN (19:00)
--- NOTE | 2018-08-28 19:36 | CONS ---
DATE OF ADMISSION: 08/02/2018 DATE OF CONSULTATION: 08/26/2018 TYPE OF CONSULTATION: Infectious disease for Dr. Andrei Pritchard. REQUESTING PHYSICIAN: Dr. Milagro Macario. REASON FOR CONSULTATION: Abdominal wound drainage. HISTORY OF PRESENT ILLNESS: The patient is a 78-year-old white male who has a myriad of problems, bu t the chief complaint is abdominal wound drainage. 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 He was to be treated with imatinib, that is Gleevec, for 36 months. Subsequen t to this, the patient developed drainage from the lower part of the wound, the drainage of which is being collected via colostomy bag. 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 Cultures hav e been taken, but have not been mature enough to identify any organisms. The patient has been afebri le, but his white blood cell count was 6600 with 43 polys, 36 bands, 10 lymphs, 1 reactive lymph, 5 m onocytes, 4 eosinophils and 1 metamyelocyte. The patient was placed on Zosyn 3.375 g IV every 8 hour s. He remains afebrile, but is seriously ill and he has a positive occult blood. He had a CT scan o f the head, which revealed that he had a left maxillary and mastoid sinusitis. The patient has begun treatment with TPN through a catheter in the right shoulder. His situation is complicated by end-st age renal disease, diabetes mellitus and thrombocytopenia. He also has complication of deep vein thr ombosis in the right arm. PAST MEDICAL HISTORY: Includes diabetes mellitus, hypothyroidism, end-stage renal disease, orthostat ic hypotension. PAST SURGICAL HISTORY: Surgeries have consisted of cholecystectomy, hip replacement, carcinoma of th e prostate with prostatic resection. ALLERGIES: TO OPIATES, HYDROMORPHONE AND MEPERIDINE. PHYSICAL EXAMINATION: GENERAL: Reveals a lethargic, chronically ill-appearing white male who on moderate stimulation will be able to partially cooperate with small changes in position of his body involved in his care. VITAL SIGNS: Include a temperature of 96.9, pulse 81, respiratory rate 18. The pulse oximetry is 93 % on nasal cannula, 3 liters per minute. HEENT: The patient is unable to cooperate with examination of his mouth. He has no jugular venous d istention. NECK: Supple. There is no jugular venous distention. CHEST: Clear to auscultation. HEART: Regular. ABDOMEN: Soft. He is draining through a colostomy bag a dull, pale, slightly faint reddish, grayish drainage which does not appear to be purulent, but appears to be more intestinal which is opaque in color and transillumination. There is no foul odor. The bowel sounds are present occasionally and t here is tenderness in the left lower quadrant. EXTREMITIES: He has a subclavian catheter in the right side. A dialysis catheter in the right groin . He has a peritoneal catheter in the right groin and a TPN infusion in the left arm and a nasal can nula. The patient can move all 4 of his extremities and he has no pedal edema. NEUROLOGIC: Grossly intact. INITIAL IMPRESSION: 1. 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 2. Left maxillary and mastoid sinusitis. 3. End-stage renal disease. 4. Total parenteral nutrition. 5. Diabetes mellitus. 6. Hypothyroidism. 7. History of cancer of the prostate. RECOMMENDATIONS: Continue the present Zosyn for another 5 days as it has today and treat the maxillary sinusitis and mastoid sinusitis with the Zosyn, loratadine and fluticasone nasal spray in the left nostril. Thank you for referring this interesting patient to Dr. Andrei Pritchard. Dictated By: Ary MCCOLLUM/NTS Conf#: [id number] DID#: [id number] CC: MILAGRO MACARIO MD;*EndCC*
[2018-08-28] MEDS: MIDODRINE 5 MG TAB PO SCH (19:59)
[2018-08-28] MEDS: ALBUTEROL/IPRATROPIUM (NEB) 3 ML AMP HHN SCH (20:00)
[2018-08-28] MEDS: HEPARIN 1000 UNITS/ML 10 ML INJ CATHETER SCH (23:17)
[2018-08-29] MEDS: PIPER-TAZO 2.25 GM (PMX) 50 ML IVPB SCH ×3 (00:08→13:26)
[2018-08-29] MEDS: BALSAM PERU/CASTOR OIL 60 GM TUBE TOP SCH ×3 (00:38→20:36)
[2018-08-29] MEDS: FLUTICASONE 0.05% 16 GM NAS SPRAY NASAL SCH ×3 (02:02→20:29)
[2018-08-29] MEDS: ACCU-CHEK XX SCH ×7 (02:16→20:36)
[2018-08-29] MEDS: INSULIN ASPART [NOVOLOG] 3 ML PEN SC SCH ×7 (02:16→20:35)
[2018-08-29 03:04] VITALS: BP 112/69; PULSE 102; RESP 18
[2018-08-29] MEDS: TPN 1,000 ML IV SCH ×2 (04:56→20:28)
[2018-08-29] MEDS: LEVOTHYROXINE 50 MCG TAB PO SCH ×2 (06:00→10:02)
[2018-08-29 07:43] VITALS: BP 107/59; PULSE 84; RESP 20
[2018-08-29] MEDS: ALBUTEROL/IPRATROPIUM (NEB) 3 ML AMP HHN SCH ×3 (08:00→19:35)
[2018-08-29] MEDS: FAT EMULSION 20% 250 ML IV SCH (10:01)
[2018-08-29] MEDS: LORATADINE 10 MG TAB NGT SCH (10:02)
[2018-08-29] MEDS: CHOLECALCIFEROL 1,000 UNIT TAB PO SCH (10:03)
[2018-08-29] MEDS: FOLIC ACID 1 MG TAB PO SCH (10:03)
[2018-08-29] MEDS: FAMOTIDINE 20 MG TAB PO SCH (10:03)
[2018-08-29] MEDS: LOPERAMIDE 2 MG CAP PO SCH (10:03)
--- NOTE | 2018-08-29 10:03 | CONS ---
Assessment/Plan Assessment/Plan Assessment/Plan (Daily) Assessment/Plan (Daily) 1 End-stage renal disease, on hemodialysis, mwf 2. Bloody diarrhea with evidence of splenic flexure mass on the CT and possible fistula communicating through the small intestine status post colonoscopy with 2: Masses s/p subtotal colectomy POD#+ adenca , now with fistula formation 3. Hypotension. On Midodrine at home 4. History of congestive heart failure.1 End-stage renal disease, on hemodialysis,mwf with mild CHF 5. Hypercholesterolemia. 6. Hx of total hip replacement. 7. leucocytosis, off pressor and trending down leukocytosis 8. dm uncontrolled on TPN 9. Macrocytic hypochromic Anemia mixed etiology, recent blood loss and 2/2 kidney disease 10. 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% 12 Clotted left arm AV graft now rt femoral permcath 13 altered mental status questionable metabolic encephalopathy cT of the head is negative Assessment/Plan (Daily) - HD MWF, HD tmw we will try to remove more fluid however we are somewhat limited because of his low blood pressure - Midodrine on hd days - iv iron -managment of fistula/output per surgery - Renally Dose all meds - management on adenoca per onc> Adjuvant chemo for GIST - Pt will need f/u Dr Coelho for Herograft upon dc Consultation Date/Type/Reason Admit Date/Time Aug 02, 2018 at 10:57 Initial Consult Date 08/03/18 Requesting Provider: DULCE GALINDO Date/Time of Note DATE: 08/29/18 TIME: 10:03 24 HR Interval Summary Free Text/Dictation Patient is little more awake today Chest x-ray shows pulmonary edema Exam/Review of Systems Exam Vitals Vital Signs Date Temp Pulse Resp B/P (MAP) Pulse Ox O2 O2 Flow FiO2 Time Delivery Rate 08/29/18 98.2 84 20 107/59 98 Nasal 2.0 07:43 (75) Cannula Intake and Output 08/28/18 08/28/18 08/29/18 1515:00 23:00 07:00 IntakeIntake Total 110 ml 720 ml 890 ml OutputOutput Total 800 ml 1850 ml BalanceBalance 110 ml -80 ml -960 ml Exam wake, confused Neck: supple Respiratory: decreased breath sounds bilaterally at the bases Cardiovascular: regular rate and rhythm Gastrointestinal: soft Extremities: edema (+) of the left arm i/n the right On TPN Ostomy bag Results Result Diagram: 08/29/18 0454 08/29/18 0454 Results 24hrs Laboratory Tests Test 08/28/18 13:27 08/28/18 16:58 08/28/18 17:00 08/28/18 17:31 Bedside Glucose 139 257 H Ammonia < 9 L Blood Gas Blood arterial Specimen Source Arterial Blood 08/28/2018 5:20:5 Date Drawn 6 PM Arterial Blood pH 7.363 (Temp corrected) Arterial Blood 35.8 pCO2 (Temp correct) Arterial Blood 68.6 L pO2 (Temp corrected) Arterial Blood 19.9 L HCO3 Arterial Blood -4.9 L Base Excess Arterial Blood 92.5 L Oxygen Saturation Robbie Test N/A Arterial Blood Right Brachial Gas Puncture Site Arterial 0.5 Blood Carboxyhemo globin Arterial Blood 0.3 Methemoglobin Blood Gas A-a O2 38.3 H Differential Oxyhemoglobin 91.8 L Percent Blood Gas 37.0 Temperature Blood Gas ROOM AIR Modality FiO2 21.0 Blood Gas MDA Notified Whom Blood Gas 08/28/2018 5:24:2 Notified Time 0 PM Test 08/28/18 23:54 08/29/18 02:12 08/29/18 04:54 08/29/18 05:57 Bedside Glucose 177 239 H 212 White Blood Count 4.9 # Red Blood Count 2.77 L Hemoglobin 8.2 L Hematocrit 26.6 L Mean Corpuscular 96.0 Volume Mean Corpuscular 29.6 Hemoglobin Mean Corpuscular 30.8 L Hemoglobin Concen t Red Cell 16.0 H Distribution Width Platelet Count 45 L Mean Platelet 12.7 H Volume Immature 2.200 H Granulocytes % Neutrophils % Segmented 56 Neutrophils % (Manual) Band Neutrophils 12 H % (Manual) Lymphocytes % Lymphocytes % 10 L (Manual) Monocytes % Monocytes % 8 (Manual) Eosinophils % Eosinophils % 8 H (Manual) Basophils % Basophils % 1 (Manual) Metamyelocytes % 1 H (manual) Myelocytes % 2 H (Manual) Promyelocytes % 2 H (Manual) Nucleated Red 0.0 Blood Cells % Immature 0.110 H Granulocytes # Neutrophils # Neutrophils # 2.8 (Manual) Band Neutrophils 0.5 # Lymphocytes 0.4 L (Manual) Lymphocytes # Monocytes # Monocytes # 0.3 (Manual) Eosinophils # Basophils # Basophils # 0.0 (Manual) Metamyelocytes # 0.0 Myelocytes # 0.0 Promyelocytes # 0.0 Nucleated Red Blood Cells # Toxic Granulation 1+ Platelet Estimate DECREASED Giant Platelets 8 H Macrocytosis 1+ Ovalocytes 1+ Stomatocytes 1+ Sodium Level 136 Potassium Level 3.5 Chloride Level 105 Carbon Dioxide 23 Level Anion Gap 8 Blood Urea 44 #H Nitrogen Creatinine 2.99 #H Est Glomerular Filtrat Rate mL/min Glucose Level 199 Calcium Level 9.2 Phosphorus Level 2.4 L Magnesium Level 1.8 Test 08/29/18 08:51 08/29/18 08:52 Bedside Glucose 215 212 Medications Medication Current Medications Ondansetron HCl (Zofran Inj) 4 mg Q6H PRN IV NAUSEA/VOMITING Last administered on 08/19/18 12:55; Admin Dose 4 MG; Start 08/02/18 at 13:00 Diagnostic Test (Pha) (Accu-Chek) 1 ea 02 XX Last administered on 08/29/18 02:39; Admin Dose 1 EA; Start 08/03/18 at 02:00 Glucose (Glutose) 15 gm Q15M PRN PO DECREASED GLUCOSE; Start 08/02/18 at 13:30 Glucose (Glutose) 22.5 gm Q15M PRN PO DECREASED GLUCOSE; Start 08/02/18 at 13:30 Dextrose (D50w Syringe) 25 ml Q15M PRN IV DECREASED GLUCOSE Last administered on 08/19/18 02:02; Admin Dose 25 ML; Start 08/02/18 at 13:30 Dextrose (D50w Syringe) 50 ml Q15M PRN IV DECREASED GLUCOSE; Start 08/02/18 at 13:30 Glucagon (Glucagen) 1 mg Q15M PRN IM DECREASED GLUCOSE; Start 08/02/18 at 13:30 Glucose (Glutose) 15 gm Q15M PRN BUCCAL DECREASED GLUCOSE; Start 08/02/18 at 13 :30 Cholecalciferol (Vitamin D) 1,000 unit DAILY PO Last administered on 08/27/18 09:44; Admin Dose 1,000 UNIT; Start 08/03/18 at 09:00 Folic Acid (Folic Acid) 1 mg DAILY PO Last administered on 08/27/18 09:44; Admin Dose 1 MG; Start 08/03/18 at 09:00 Midodrine (Proamatine) 5 mg ON DIALYSIS DAYS PO Last administered on 08/28/18 19:59; Admin Dose 5 MG; Start 08/02/18 at 18:00 Gabapentin (Neurontin) 100 mg DAILY PO Last administered on 08/13/18 09:07; Admin Dose 100 MG; Start 08/07/18 at 11:30; Status Hold Phenol (Cepastat Lozenge) 1 lozenge Q1H PRN MT COUGH Last administered on 08/08/18 02:34; Admin Dose 1 LOZENGE; Start 08/07/18 at 23:00 Heparin Sodium (Porcine) (Heparin (1000 Units/ml)) 6,100 unit AFTER DIALYSIS CATHETER Last administered on 08/28/18 23:17; Admin Dose 6,100 UNIT; Start 08/16/18 at 22:30 Acetaminophen (Tylenol Tab) 650 mg Q6H PRN PO MILD PAIN(1-3)OR ELEVATED TEMP Last administered on 08/18/18 05:59; Admin Dose 650 MG; Start 08/18/18 at 05:30 Levothyroxine Sodium (Synthroid) 50 mcg DAILY@06 PO Last administered on 08/28/18 05:21; Admin Dose 50 MCG; Start 08/20/18 at 06:00 Famotidine (Pepcid) 20 mg DAILY PO Last administered on 08/27/18 09:44; Admin Dose 20 MG; Start 08/21/18 at 09:00 Apixaban (Eliquis) 2.5 mg BID PO Last administered on 08/27/18 21:24; Admin Dose 2.5 MG; Start 08/21/18 at 09:30; Status Hold Diagnostic Test (Pha) (Accu-Chek) 1 ea Q4 XX Last administered on 08/29/18 05:00; Admin Dose 1 EA; Start 08/23/18 at 21:00 Fat Emulsion Intravenous 250 ml @ 21 mls/hr DAILY IV Last administered on 08/28/18 09:55; Admin Dose 21 MLS/HR; Start 08/24/18 at 14:00 Total Parenteral Nutrition 1,000 ml @ 65 mls/hr [id number] IV Last administered on 08/29/18 04:56; Admin Dose 65 MLS/HR; Start 08/24/18 at 16:00 Albumin Human 100 ml @ 100 mls/hr WITH DIALYSIS PRN IV SBP <90 DURING DIALYSIS Last administered on 08/26/18at 09:29; Admin Dose 100 MLS/HR; Start 08/26/18 at 08:30 Loperamide HCl (Imodium Cap) 4 mg DAILY PO Last administered on 08/27/18at 09:44; Admin Dose 4 MG; Start 08/27/18 at 09:00 Insulin Aspart (Novolog Insulin Pen) NOVOLOG *MODERATE* ALGORITHM Q4 SC Last administered on 08/29/18at 06:02; Admin Dose 4 UNIT; Start 08/27/18 at 13:00 Ferric Sodium Gluconate Complex 125 mg/Sodium Chloride 110 ml @ 110 mls/hr DAILY@1300 IVPB Last administered on 08/28/18at 13:30; Admin Dose 110 MLS/HR; Start 08/28/18 at 13:00; Stop 09/01/18 at 13:59 Loratadine (Claritin) 10 mg DAILY NGT ; Start 08/29/18 at 09:00; Stop 09/11/18 at 12:00 Fluticasone Propionate (Flonase 0.05% Nasal) 1 spray BID NASAL Last administered on 08/29/18at 02:02; Admin Dose 1 SPRAY; Start 08/28/18 at 21:00; Stop 08/26/19 at 22:00 Piperacillin Sod/ Tazobactam Sod 50 ml @ 100 mls/hr Q8 IVPB Last administered on 08/29/18 06:27; Admin Dose 100 MLS/HR; Start 08/28/18 at 22:00; Stop 09/02/18 at 23:00 Albuterol/ Ipratropium (Duoneb) 3 ml Q6HWA RESP THERAPY HHN ; Start 08/28/18 at 20:00 Albuterol/ Ipratropium (Duoneb) 3 ml Q2H RESP THERAPY PRN HHN shortness of breath; Start 08/28/18 at 19:00 Insulin Glargine (Lantus) 35 units BID@0800,2000 SC ; Start 08/29/18 at 20:00; Status NNEKA GILMAN MD Aug 29, 2018 10:03
[2018-08-29] MEDS ORDERED: POTASSIUM PHOSPHATE 15 MM in SOD CHLORIDE 0.9% 250 ML IV ONE (12:00)
[2018-08-29] MEDS: SOD FERRIC GLUC COMPLX 125 MG in SOD CHLORIDE 0.9% 100 ML IVPB SCH (13:26)
[2018-08-29 14:00] VITALS: BP 110/62; PULSE 86; RESP 20
--- NOTE | 2018-08-29 14:25 | PN ---
Date/Time of Note Date/Time of Note DATE: 08/29/18 TIME: 14:18 Objective Vitals Vital Signs Date Temp Pulse Resp B/P (MAP) Pulse Ox O2 O2 Flow FiO2 Time Delivery Rate 08/29/18 95 0.0 10:39 08/29/18 88 16 Nasal 10:38 Cannula 08/29/18 98.2 107/59 07:43 (75) Intake and Output 08/28/18 08/28/18 08/29/18 1515:00 23:00 07:00 IntakeIntake Total 110 ml 720 ml 890 ml OutputOutput Total 800 ml 1850 ml BalanceBalance 110 ml -80 ml -960 ml Results Result Diagram: 08/29/18 0454 08/29/18 0454 Medications Medications Current Medications Ondansetron HCl (Zofran Inj) 4 mg Q6H PRN IV NAUSEA/VOMITING Last administered on 08/19/18at 12:55; Admin Dose 4 MG; Start 08/02/18 at 13:00 Diagnostic Test (Pha) (Accu-Chek) 1 ea 02 XX Last administered on 08/29/18at 02:39; Admin Dose 1 EA; Start 08/03/18 at 02:00 Glucose (Glutose) 15 gm Q15M PRN PO DECREASED GLUCOSE; Start 08/02/18 at 13:30 Glucose (Glutose) 22.5 gm Q15M PRN PO DECREASED GLUCOSE; Start 08/02/18 at 13:30 Dextrose (D50w Syringe) 25 ml Q15M PRN IV DECREASED GLUCOSE Last administered on 08/19/18at 02:02; Admin Dose 25 ML; Start 08/02/18 at 13:30 Dextrose (D50w Syringe) 50 ml Q15M PRN IV DECREASED GLUCOSE; Start 08/02/18 at 13:30 Glucagon (Glucagen) 1 mg Q15M PRN IM DECREASED GLUCOSE; Start 08/02/18 at 13:30 Glucose (Glutose) 15 gm Q15M PRN BUCCAL DECREASED GLUCOSE; Start 08/02/18 at 13:30 Cholecalciferol (Vitamin D) 1,000 unit DAILY PO Last administered on 08/29/18at 10:03; Admin Dose 1,000 UNIT; Start 08/03/18 at 09:00 Folic Acid (Folic Acid) 1 mg DAILY PO Last administered on 08/29/18 10:03; Admin Dose 1 MG; Start 08/03/18 at 09:00 Midodrine (Proamatine) 5 mg ON DIALYSIS DAYS PO Last administered on 08/28/18 19:59; Admin Dose 5 MG; Start 08/02/18 at 18:00 Gabapentin (Neurontin) 100 mg DAILY PO Last administered on 08/13/18 09:07; Admin Dose 100 MG; Start 08/07/18 at 11:30; Status Hold Phenol (Cepastat Lozenge) 1 lozenge Q1H PRN MT COUGH Last administered on 08/08/18 02:34; Admin Dose 1 LOZENGE; Start 08/07/18 at 23:00 Heparin Sodium (Porcine) (Heparin (1000 Units/ml)) 6,100 unit AFTER DIALYSIS CATHETER Last administered on 08/28/18 23:17; Admin Dose 6,100 UNIT; Start 08/16/18 at 22:30 Acetaminophen (Tylenol Tab) 650 mg Q6H PRN PO MILD PAIN(1-3)OR ELEVATED TEMP Last administered on 08/18/18 05:59; Admin Dose 650 MG; Start 08/18/18 at 05:30 Levothyroxine Sodium (Synthroid) 50 mcg DAILY@06 PO Last administered on 08/29/18 10:02; Admin Dose 50 MCG; Start 08/20/18 at 06:00 Famotidine (Pepcid) 20 mg DAILY PO Last administered on 08/29/18 10:03; Admin Dose 20 MG; Start 08/21/18 at 09:00 Apixaban (Eliquis) 2.5 mg BID PO Last administered on 08/27/18 21:24; Admin Dose 2.5 MG; Start 08/21/18 at 09:30; Status Hold Diagnostic Test (Pha) (Accu-Chek) 1 ea Q4 XX Last administered on 08/29/18 13:21; Admin Dose 1 EA; Start 08/23/18 at 21:00 Fat Emulsion Intravenous 250 ml @ 21 mls/hr DAILY IV Last administered on 08/29/18 10:01; Admin Dose 21 MLS/HR; Start 08/24/18 at 14:00 Total Parenteral Nutrition 1,000 ml @ 65 mls/hr [id number] IV Last administered on 08/29/18 04:56; Admin Dose 65 MLS/HR; Start 08/24/18 at 16:00 Albumin Human 100 ml @ 100 mls/hr WITH DIALYSIS PRN IV SBP <90 DURING DIALYSIS Last administered on 08/26/18 09:29; Admin Dose 100 MLS/HR; Start 08/26/18 at 08:30 Loperamide HCl (Imodium Cap) 4 mg DAILY PO Last administered on 08/29/18 10:03; Admin Dose 4 MG; Start 08/27/18 at 09:00 Insulin Aspart (Novolog Insulin Pen) NOVOLOG *MODERATE* ALGORITHM Q4 SC Last administered on 08/29/18 13:25; Admin Dose 4 UNIT; Start 08/27/18 at 13:00 Ferric Sodium Gluconate Complex 125 mg/Sodium Chloride 110 ml @ 110 mls/hr DAILY@1300 IVPB Last administered on 08/29/18 13:26; Admin Dose 110 MLS/HR; Start 08/28/18 at 13:00; Stop 09/01/18 at 13:59 Loratadine (Claritin) 10 mg DAILY NGT Last administered on 08/29/18 10:02; Admin Dose 10 MG; Start 08/29/18 at 09:00; Stop 09/11/18 at 12:00 Fluticasone Propionate (Flonase 0.05% Nasal) 1 spray BID NASAL Last administered on 08/29/18 10:00; Admin Dose 1 SPRAY; Start 08/28/18 at 21:00; Stop 08/26/19 at 22:00 Piperacillin Sod/ Tazobactam Sod 50 ml @ 100 mls/hr Q8 IVPB Last administered on 08/29/18 13:26; Admin Dose 100 MLS/HR; Start 08/28/18 at 22:00; Stop 09/02/18 at 23:00 Albuterol/ Ipratropium (Duoneb) 3 ml Q6HWA RESP THERAPY HHN Last administered on 08/29/18 08:00; Admin Dose 3 ML; Start 08/28/18 at 20:00 Albuterol/ Ipratropium (Duoneb) 3 ml Q2H RESP THERAPY PRN HHN shortness of breath; Start 08/28/18 at 19:00 Insulin Glargine (Lantus) 35 units BID@0800,2000 SC ; Start 08/29/18 at 20:00 Potassium Phosphate 15 mm/ Sodium Chloride 255 ml @ 63.75 mls/ hr ONCE ONCE IV Last administered on 08/29/18at 13:42; Admin Dose 63.75 MLS/HR; Start 08/29/18 at 12:00; Stop 08/29/18 at 15:59 Magnesium Sulfate/ Dextrose 100 ml @ 100 mls/hr ONCE ONCE IVPB ; Start 08/29/18 at 16:00; Stop 08/29/18 at 16:59 VTE Prophylaxis Risk score (from Ns)>0 risk: 10 SCD applied (from [facility] [place]): Yes Lines/Catheters IV Catheter Type: Granger in Place: Yes Cont'd granger catheter reason: terminal illness/intractable pain Assessment/Plan Hospital Course Subjective Patient alert but still intermittent confusion Subjective Physical exam General: Patient is laying in bed and answers questions appropriately intermittently Mentation: Patient is alert and oriented to self Head: Normocephalic atraumatic Eyes: EOMI, pupils reactive to light Neck: Supple, nontender, midline Respiratory: Clear to auscultation bilaterally Cardiovascular: regular rate, no obvious murmurs Gastrointestinal: Moderately tender to palpation, bowel sounds heard. 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 patient kept NPO except meds and on TPN at this time - Dr. Meneses/Jimbo on board and appreciate consultation - GI on board and appreciate recommendations. 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 Will need 36 months of adjuvant therapy for GIST tumor once abdominal wounds healed but no further intervention for adenocarcinoma - Cardiology consultation appreciated - ID consulted for possible prophylaxis abx End-stage renal disease on HD - Nephrology on board for HD management and appreciate recommendations - clogged fistula catheter (HeRO), consulted Dr. Coelho for recs as he is patient's vascular surgeon, recommended Horacio for now until we can fully anticoagulate. Follow as outpatient. On Eliquis and tolerating (but currently held due to hgb dropping) Anemia -Likely secondary to above chronic anemia secondary to end-stage renal disease -Monitor hemoglobin levels, attempted to restart Eliquis, however due to continued mild decrease in hemoglobin we will once again hold. -Continues to have very small decrease every day, after discussing with consulting physicians may be secondary to blood draws. -We will transfuse as needed for hemoglobin less than 8. Encephalopathy -Progressively worsening for the past week, today to encephalopathic to even take oral medications, CT head showing mastoiditis and some sinus issues but no CVA -MRI unable to be done due to pacemaker -Neurology consulted, Dr. Taylor GI bleed 2/2 to above mass - resolved? Arm swelling - Ultrasound showed right brachial DVT as well as thrombosis of the left cephalic vein. Patient's midline on his right arm is the likely culprit for the DVT on his right brachial vein. - dialysis catheter in left arm clotted for now, no Cathflo due to recent surgery per vascular surgery - monitor, warm compresses. - Patient is likely an hypercoagulable state due to his carcinoma and started on Eliquis Diabetes - A1c noted - counseled about importance of diet choices and glucose control - Continue Lantus and ISS. 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 Output decreasing - Continue on TPN at this time -Hold Eliquis again, keep continue to monitor hemoglobin DULCE GALINDO Aug 29, 2018 14:24
--- NOTE | 2018-08-29 14:43 | CONS ---
Assessment/Plan Assessment/Plan Hospital Course (Demo Recall) #Adenocarcinoma of ascending Colon ca -final pathology report reveals 2 separate masses with different pathology results. -the ascending colon mass is consistent with a Moderately-differentiated adenocarcinoma, invading through the muscularis propria, with all 0/18 negative for disease, 3.6 x 2.8 x 1.1 cm. -the splenic flexture mass is 10.5 x 9.0 x 7.0 cm.and consistent with a high grade GIST tumor -CT does not reveal evidence of distant mets -in terms of the adenocarcinoma, pt does not need adjuvant chemotherapy given this was a stage IIA tumor. 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 Consultation Date/Type/Reason Admit Date/Time Aug 02, 2018 at 10:57 Initial Consult Date 08/09/18 Type of Consult oncology Reason for Consultation colon cancer Requesting Provider: DULCE GALINDO Date/Time of Note DATE: 08/29/18 TIME: 14:42 24 HR Interval Summary Free Text/Dictation no acute overnight events Exam/Review of Systems Exam Vitals Vital Signs Date Temp Pulse Resp B/P (MAP) Pulse Ox O2 O2 Flow FiO2 Time Delivery Rate 08/29/18 95 0.0 10:39 08/29/18 88 16 Nasal 10:38 Cannula 08/29/18 98.2 107/59 07:43 (75) Intake and Output 08/28/18 08/28/18 08/29/18 1515:00 23:00 07:00 IntakeIntake Total 110 ml 720 ml 890 ml OutputOutput Total 800 ml 1850 ml BalanceBalance 110 ml -80 ml -960 ml Constitutional: alert, oriented, distress, frail Psych: anxiety, depression Head: normocephalic Eyes: nl conjunctiva ENMT: nl external ears & nose Neck: supple Respiratory: clear to auscultation Cardiovascular: regular rate and rhythm Gastrointestinal: soft, surgical scars, other (enterocutaneous fistula) Musculoskeletal: nl extremities to inspection, nl gait and stance Extremities: normal pulses Results Result Diagram: 08/29/18 0454 08/29/18 0454 Results 24hrs Laboratory Tests Test 08/28/18 16:58 08/28/18 17:00 08/28/18 17:31 08/28/18 23:54 Ammonia < 9 L Blood Gas Blood arterial Specimen Source Arterial Blood 08/28/2018 5:20:5 Date Drawn 6 PM Arterial Blood pH 7.363 (Temp corrected) Arterial Blood 35.8 pCO2 (Temp correct) Arterial Blood 68.6 L pO2 (Temp corrected) Arterial Blood 19.9 L HCO3 Arterial Blood -4.9 L Base Excess Arterial Blood 92.5 L Oxygen Saturation Robbie Test N/A Arterial Blood Right Brachial Gas Puncture Site Arterial 0.5 Blood Carboxyhemo globin Arterial Blood 0.3 Methemoglobin Blood Gas A-a O2 38.3 H Differential Oxyhemoglobin 91.8 L Percent Blood Gas 37.0 Temperature Blood Gas ROOM AIR Modality FiO2 21.0 Blood Gas MDA Notified Whom Blood Gas 08/28/2018 5:24:2 Notified Time 0 PM Bedside Glucose 257 H 177 Test 08/29/18 02:12 08/29/18 04:54 08/29/18 05:57 08/29/18 08:51 Bedside Glucose 239 H 212 215 White Blood Count 4.9 # Red Blood Count 2.77 L Hemoglobin 8.2 L Hematocrit 26.6 L Mean Corpuscular 96.0 Volume Mean Corpuscular 29.6 Hemoglobin Mean Corpuscular 30.8 L Hemoglobin Concen t Red Cell 16.0 H Distribution Width Platelet Count 45 L Mean Platelet 12.7 H Volume Immature 2.200 H Granulocytes % Neutrophils % Segmented 56 Neutrophils % (Manual) Band Neutrophils 12 H % (Manual) Lymphocytes % Lymphocytes % 10 L (Manual) Monocytes % Monocytes % 8 (Manual) Eosinophils % Eosinophils % 8 H (Manual) Basophils % Basophils % 1 (Manual) Metamyelocytes % 1 H (manual) Myelocytes % 2 H (Manual) Promyelocytes % 2 H (Manual) Nucleated Red 0.0 Blood Cells % Immature 0.110 H Granulocytes # Neutrophils # Neutrophils # 2.8 (Manual) Band Neutrophils 0.5 # Lymphocytes 0.4 L (Manual) Lymphocytes # Monocytes # Monocytes # 0.3 (Manual) Eosinophils # Basophils # Basophils # 0.0 (Manual) Metamyelocytes # 0.0 Myelocytes # 0.0 Promyelocytes # 0.0 Nucleated Red Blood Cells # Toxic Granulation 1+ Platelet Estimate DECREASED Giant Platelets 8 H Macrocytosis 1+ Ovalocytes 1+ Stomatocytes 1+ Sodium Level 136 Potassium Level 3.5 Chloride Level 105 Carbon Dioxide 23 Level Anion Gap 8 Blood Urea 44 #H Nitrogen Creatinine 2.99 #H Est Glomerular Filtrat Rate mL/min Glucose Level 199 Calcium Level 9.2 Phosphorus Level 2.4 L Magnesium Level 1.8 Test 08/29/18 08:52 08/29/18 12:53 Bedside Glucose 212 218 Medications Medication Current Medications Ondansetron HCl (Zofran Inj) 4 mg Q6H PRN IV NAUSEA/VOMITING Last administered on 08/19/18at 12:55; Admin Dose 4 MG; Start 08/02/18 at 13:00 Diagnostic Test (Pha) (Accu-Chek) 1 ea 02 XX Last administered on 08/29/18at 02:39; Admin Dose 1 EA; Start 08/03/18 at 02:00 Glucose (Glutose) 15 gm Q15M PRN PO DECREASED GLUCOSE; Start 08/02/18 at 13:30 Glucose (Glutose) 22.5 gm Q15M PRN PO DECREASED GLUCOSE; Start 08/02/18 at 13:30 Dextrose (D50w Syringe) 25 ml Q15M PRN IV DECREASED GLUCOSE Last administered on 08/19/18at 02:02; Admin Dose 25 ML; Start 08/02/18 at 13:30 Dextrose (D50w Syringe) 50 ml Q15M PRN IV DECREASED GLUCOSE; Start 08/02/18 at 13:30 Glucagon (Glucagen) 1 mg Q15M PRN IM DECREASED GLUCOSE; Start 08/02/18 at 13:30 Glucose (Glutose) 15 gm Q15M PRN BUCCAL DECREASED GLUCOSE; Start 08/02/18 at 13:30 Cholecalciferol (Vitamin D) 1,000 unit DAILY PO Last administered on 08/29/18 10:03; Admin Dose 1,000 UNIT; Start 08/03/18 at 09:00 Folic Acid (Folic Acid) 1 mg DAILY PO Last administered on 08/29/18 10:03; Admin Dose 1 MG; Start 08/03/18 at 09:00 Midodrine (Proamatine) 5 mg ON DIALYSIS DAYS PO Last administered on 08/28/18 19:59; Admin Dose 5 MG; Start 08/02/18 at 18:00 Gabapentin (Neurontin) 100 mg DAILY PO Last administered on 08/13/18 09:07; Admin Dose 100 MG; Start 08/07/18 at 11:30; Status Hold Phenol (Cepastat Lozenge) 1 lozenge Q1H PRN MT COUGH Last administered on 08/08/18 02:34; Admin Dose 1 LOZENGE; Start 08/07/18 at 23:00 Heparin Sodium (Porcine) (Heparin (1000 Units/ml)) 6,100 unit AFTER DIALYSIS CATHETER Last administered on 08/28/18 23:17; Admin Dose 6,100 UNIT; Start 08/16/18 at 22:30 Acetaminophen (Tylenol Tab) 650 mg Q6H PRN PO MILD PAIN(1-3)OR ELEVATED TEMP Last administered on 08/18/18 05:59; Admin Dose 650 MG; Start 08/18/18 at 05:30 Levothyroxine Sodium (Synthroid) 50 mcg DAILY@06 PO Last administered on 08/29/18 10:02; Admin Dose 50 MCG; Start 08/20/18 at 06:00 Famotidine (Pepcid) 20 mg DAILY PO Last administered on 08/29/18 10:03; Admin Dose 20 MG; Start 08/21/18 at 09:00 Apixaban (Eliquis) 2.5 mg BID PO Last administered on 08/27/18 21:24; Admin Dose 2.5 MG; Start 08/21/18 at 09:30; Status Hold Diagnostic Test (Pha) (Accu-Chek) 1 ea Q4 XX Last administered on 08/29/18 13:21; Admin Dose 1 EA; Start 08/23/18 at 21:00 Fat Emulsion Intravenous 250 ml @ 21 mls/hr DAILY IV Last administered on 08/29/18 10:01; Admin Dose 21 MLS/HR; Start 08/24/18 at 14:00 Total Parenteral Nutrition 1,000 ml @ 65 mls/hr [id number] IV Last administered on 08/29/18 04:56; Admin Dose 65 MLS/HR; Start 08/24/18 at 16:00 Albumin Human 100 ml @ 100 mls/hr WITH DIALYSIS PRN IV SBP <90 DURING DIALYSIS Last administered on 08/26/18 09:29; Admin Dose 100 MLS/HR; Start 08/26/18 at 08:30 Loperamide HCl (Imodium Cap) 4 mg DAILY PO Last administered on 08/29/18 10:03; Admin Dose 4 MG; Start 08/27/18 at 09:00 Insulin Aspart (Novolog Insulin Pen) NOVOLOG *MODERATE* ALGORITHM Q4 SC Last administered on 08/29/18 13:25; Admin Dose 4 UNIT; Start 08/27/18 at 13:00 Ferric Sodium Gluconate Complex 125 mg/Sodium Chloride 110 ml @ 110 mls/hr DAILY@1300 IVPB Last administered on 08/29/18 13:26; Admin Dose 110 MLS/HR; Start 08/28/18 at 13:00; Stop 09/01/18 at 13:59 Loratadine (Claritin) 10 mg DAILY NGT Last administered on 08/29/18 10:02; Admin Dose 10 MG; Start 08/29/18 at 09:00; Stop 09/11/18 at 12:00 Fluticasone Propionate (Flonase 0.05% Nasal) 1 spray BID NASAL Last administered on 08/29/18 10:00; Admin Dose 1 SPRAY; Start 08/28/18 at 21:00; Stop 08/26/19 at 22:00 Piperacillin Sod/ Tazobactam Sod 50 ml @ 100 mls/hr Q8 IVPB Last administered on 08/29/18 13:26; Admin Dose 100 MLS/HR; Start 08/28/18 at 22:00; Stop 09/02/18 at 23:00 Albuterol/ Ipratropium (Duoneb) 3 ml Q6HWA RESP THERAPY HHN Last administered on 08/29/18at 08:00; Admin Dose 3 ML; Start 08/28/18 at 20:00 Albuterol/ Ipratropium (Duoneb) 3 ml Q2H RESP THERAPY PRN HHN shortness of breath; Start 08/28/18 at 19:00 Insulin Glargine (Lantus) 35 units BID@0800,2000 SC ; Start 08/29/18 at 20:00 Potassium Phosphate 15 mm/ Sodium Chloride 255 ml @ 63.75 mls/ hr ONCE ONCE IV Last administered on 08/29/18at 13:42; Admin Dose 63.75 MLS/HR; Start 08/29/18 at 12:00; Stop 08/29/18 at 15:59 Magnesium Sulfate/ Dextrose 100 ml @ 100 mls/hr ONCE ONCE IVPB ; Start 08/29/18 at 16:00; Stop 08/29/18 at 16:59 JAGUAR CARTWRIGHT M.D. Aug 29, 2018 14:43
[2018-08-29] MEDS ORDERED: MAGNESIUM SULFATE 1 GM/D5W 100 ML IVPB ONE (16:00)
--- NOTE | 2018-08-29 16:20 | CONS ---
Assessment/Plan Assessment/Plan Hospital Course (Demo Recall) Patient is awake looks comfortable Indwelling: Right IJ triple-lumen catheter, right femoral Horacio, left upper extremity AV graft or fistula that is nonfunctioning Physical examination: Chronically ill-appearing elderly man who is noncommunicative in no distress. Head atraumatic normocephalic. Sclera nonicteric. Neck is supple, chest rise symmetrical. Heart: S1-S2. Abdomen soft bowel sounds present. Extremities without cyanosis. 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 ESRD/HD Clotted LUE AVF R brachial DVT DM CAD/PPM R fem horacio Plan: Stable, completed 2 weeks antibiotics now off, continue present care, follow surgical recommendations Consultation Date/Type/Reason Admit Date/Time Aug 02, 2018 at 10:57 Initial Consult Date 08/09/18 Type of Consult id Requesting Provider: DULCE GALINDO Date/Time of Note DATE: 08/29/18 TIME: 16:19 Exam/Review of Systems Exam Vitals Vital Signs Date Temp Pulse Resp B/P (MAP) Pulse Ox O2 O2 Flow FiO2 Time Delivery Rate 08/29/18 87 20 92 Nasal 2.0 14:47 Cannula 08/29/18 98.2 107/59 07:43 (75) Intake and Output 08/28/18 08/28/18 08/29/18 1414:59 22:59 06:59 IntakeIntake Total 110 ml 720 ml 890 ml OutputOutput Total 800 ml 1850 ml BalanceBalance 110 ml -80 ml -960 ml Results Result Diagram: 08/29/18 0454 08/29/18 0454 Results 24hrs Laboratory Tests Test 08/28/18 16:58 08/28/18 17:00 08/28/18 17:31 08/28/18 23:54 Ammonia < 9 L Blood Gas Blood arterial Specimen Source Arterial Blood 08/28/2018 5:20:5 Date Drawn 6 PM Arterial Blood pH 7.363 (Temp corrected) Arterial Blood 35.8 pCO2 (Temp correct) Arterial Blood 68.6 L pO2 (Temp corrected) Arterial Blood 19.9 L HCO3 Arterial Blood -4.9 L Base Excess Arterial Blood 92.5 L Oxygen Saturation Robbie Test N/A Arterial Blood Right Brachial Gas Puncture Site Arterial 0.5 Blood Carboxyhemo globin Arterial Blood 0.3 Methemoglobin Blood Gas A-a O2 38.3 H Differential Oxyhemoglobin 91.8 L Percent Blood Gas 37.0 Temperature Blood Gas ROOM AIR Modality FiO2 21.0 Blood Gas MDA Notified Whom Blood Gas 08/28/2018 5:24:2 Notified Time 0 PM Bedside Glucose 257 H 177 Test 08/29/18 02:12 08/29/18 04:54 08/29/18 05:57 08/29/18 08:51 Bedside Glucose 239 H 212 215 White Blood Count 4.9 # Red Blood Count 2.77 L Hemoglobin 8.2 L Hematocrit 26.6 L Mean Corpuscular 96.0 Volume Mean Corpuscular 29.6 Hemoglobin Mean Corpuscular 30.8 L Hemoglobin Concen t Red Cell 16.0 H Distribution Width Platelet Count 45 L Mean Platelet 12.7 H Volume Immature 2.200 H Granulocytes % Neutrophils % Segmented 56 Neutrophils % (Manual) Band Neutrophils 12 H % (Manual) Lymphocytes % Lymphocytes % 10 L (Manual) Monocytes % Monocytes % 8 (Manual) Eosinophils % Eosinophils % 8 H (Manual) Basophils % Basophils % 1 (Manual) Metamyelocytes % 1 H (manual) Myelocytes % 2 H (Manual) Promyelocytes % 2 H (Manual) Nucleated Red 0.0 Blood Cells % Immature 0.110 H Granulocytes # Neutrophils # Neutrophils # 2.8 (Manual) Band Neutrophils 0.5 # Lymphocytes 0.4 L (Manual) Lymphocytes # Monocytes # Monocytes # 0.3 (Manual) Eosinophils # Basophils # Basophils # 0.0 (Manual) Metamyelocytes # 0.0 Myelocytes # 0.0 Promyelocytes # 0.0 Nucleated Red Blood Cells # Toxic Granulation 1+ Platelet Estimate DECREASED Giant Platelets 8 H Macrocytosis 1+ Ovalocytes 1+ Stomatocytes 1+ Sodium Level 136 Potassium Level 3.5 Chloride Level 105 Carbon Dioxide 23 Level Anion Gap 8 Blood Urea 44 #H Nitrogen Creatinine 2.99 #H Est Glomerular Filtrat Rate mL/min Glucose Level 199 Calcium Level 9.2 Phosphorus Level 2.4 L Magnesium Level 1.8 Test 08/29/18 08:52 08/29/18 12:53 Bedside Glucose 212 218 Medications Medication Current Medications Ondansetron HCl (Zofran Inj) 4 mg Q6H PRN IV NAUSEA/VOMITING Last administered on 08/19/18 12:55; Admin Dose 4 MG; Start 08/02/18 at 13:00 Diagnostic Test (Pha) (Accu-Chek) 1 ea 02 XX Last administered on 08/29/18 02:39; Admin Dose 1 EA; Start 08/03/18 at 02:00 Glucose (Glutose) 15 gm Q15M PRN PO DECREASED GLUCOSE; Start 08/02/18 at 13:30 Glucose (Glutose) 22.5 gm Q15M PRN PO DECREASED GLUCOSE; Start 08/02/18 at 13:30 Dextrose (D50w Syringe) 25 ml Q15M PRN IV DECREASED GLUCOSE Last administered on 08/19/18 02:02; Admin Dose 25 ML; Start 08/02/18 at 13:30 Dextrose (D50w Syringe) 50 ml Q15M PRN IV DECREASED GLUCOSE; Start 08/02/18 at 13:30 Glucagon (Glucagen) 1 mg Q15M PRN IM DECREASED GLUCOSE; Start 08/02/18 at 13:30 Glucose (Glutose) 15 gm Q15M PRN BUCCAL DECREASED GLUCOSE; Start 08/02/18 at 13:30 Cholecalciferol (Vitamin D) 1,000 unit DAILY PO Last administered on 08/29/18 10:03; Admin Dose 1,000 UNIT; Start 08/03/18 at 09:00 Folic Acid (Folic Acid) 1 mg DAILY PO Last administered on 08/29/18 10:03; Admin Dose 1 MG; Start 08/03/18 at 09:00 Midodrine (Proamatine) 5 mg ON DIALYSIS DAYS PO Last administered on 08/28/18 19:59; Admin Dose 5 MG; Start 08/02/18 at 18:00 Gabapentin (Neurontin) 100 mg DAILY PO Last administered on 08/13/18 09:07; Admin Dose 100 MG; Start 08/07/18 at 11:30; Status Hold Phenol (Cepastat Lozenge) 1 lozenge Q1H PRN MT COUGH Last administered on 08/08/18 02:34; Admin Dose 1 LOZENGE; Start 08/07/18 at 23:00 Heparin Sodium (Porcine) (Heparin (1000 Units/ml)) 6,100 unit AFTER DIALYSIS CATHETER Last administered on 08/28/18 23:17; Admin Dose 6,100 UNIT; Start 08/16/18 at 22:30 Acetaminophen (Tylenol Tab) 650 mg Q6H PRN PO MILD PAIN(1-3)OR ELEVATED TEMP Last administered on 08/18/18 05:59; Admin Dose 650 MG; Start 08/18/18 at 05:30 Levothyroxine Sodium (Synthroid) 50 mcg DAILY@06 PO Last administered on 08/29/18 10:02; Admin Dose 50 MCG; Start 08/20/18 at 06:00 Famotidine (Pepcid) 20 mg DAILY PO Last administered on 08/29/18 10:03; Admin Dose 20 MG; Start 08/21/18 at 09:00 Apixaban (Eliquis) 2.5 mg BID PO Last administered on 08/27/18 21:24; Admin Dose 2.5 MG; Start 08/21/18 at 09:30; Status Hold Diagnostic Test (Pha) (Accu-Chek) 1 ea Q4 XX Last administered on 08/29/18 13:21; Admin Dose 1 EA; Start 08/23/18 at 21:00 Fat Emulsion Intravenous 250 ml @ 21 mls/hr DAILY IV Last administered on 08/29/18 10:01; Admin Dose 21 MLS/HR; Start 08/24/18 at 14:00 Total Parenteral Nutrition 1,000 ml @ 65 mls/hr [id number] IV Last administered on 08/29/18 04:56; Admin Dose 65 MLS/HR; Start 08/24/18 at 16:00 Albumin Human 100 ml @ 100 mls/hr WITH DIALYSIS PRN IV SBP <90 DURING DIALYSIS Last administered on 08/26/18 09:29; Admin Dose 100 MLS/HR; Start 08/26/18 at 08:30 Loperamide HCl (Imodium Cap) 4 mg DAILY PO Last administered on 08/29/18 10:03; Admin Dose 4 MG; Start 08/27/18 at 09:00 Insulin Aspart (Novolog Insulin Pen) NOVOLOG *MODERATE* ALGORITHM Q4 SC Last administered on 08/29/18 13:25; Admin Dose 4 UNIT; Start 08/27/18 at 13:00 Ferric Sodium Gluconate Complex 125 mg/Sodium Chloride 110 ml @ 110 mls/hr DAILY@1300 IVPB Last administered on 08/29/18 13:26; Admin Dose 110 MLS/HR; Start 08/28/18 at 13:00; Stop 09/01/18 at 13:59 Loratadine (Claritin) 10 mg DAILY NGT Last administered on 08/29/18at 10:02; Admin Dose 10 MG; Start 08/29/18 at 09:00; Stop 09/11/18 at 12:00 Fluticasone Propionate (Flonase 0.05% Nasal) 1 spray BID NASAL Last administered on 08/29/18 10:00; Admin Dose 1 SPRAY; Start 08/28/18 at 21:00; Stop 08/26/19 at 22:00 Piperacillin Sod/ Tazobactam Sod 50 ml @ 100 mls/hr Q8 IVPB Last administered on 08/29/18 13:26; Admin Dose 100 MLS/HR; Start 08/28/18 at 22:00; Stop 09/02/18 at 23:00 Albuterol/ Ipratropium (Duoneb) 3 ml Q6HWA RESP THERAPY HHN Last administered on 08/29/18at 14:46; Admin Dose 3 ML; Start 08/28/18 at 20:00 Albuterol/ Ipratropium (Duoneb) 3 ml Q2H RESP THERAPY PRN HHN shortness of breath; Start 08/28/18 at 19:00 Insulin Glargine (Lantus) 35 units BID@0800,2000 SC ; Start 08/29/18 at 20:00 Magnesium Sulfate/ Dextrose 100 ml @ 100 mls/hr ONCE ONCE IVPB ; Start 08/29/18 at 16:00; Stop 08/29/18 at 16:59 CHIN FORD NP Aug 29, 2018 16:20
--- NOTE | 2018-08-29 16:43 | CONS ---
Assessment/Plan Assessment/Plan Hospital Course 78 M c/ ESRD and other comorbidities, who initially presented 1 month ago for management of generalized weakness, difficulty and other complaints. He is noted have become progressively altered over the course of days, for which neurology is consulted... The clinical picture could be consistent with an acute and multifactorial toxic- metabolic encephalopathy.. Seizure/stroke are less likely. HCT is unrevealing (MRI brain is contraindicated 2/2 PPM) CXR is notable for pulmonary vascular congestion, and right basilar opacification.. TSH is elevated Ammonia is wnl P: Add FT4 Chappell as able Limit sedating medications where possible Other management per primary Will follow clinically Consultation Date/Type/Reason Admit Date/Time Aug 02, 2018 at 10:57 Type of Consult Neurology Reason for Consultation ams Requesting Provider: DULCE GALINDO Date/Time of Note DATE: 08/29/18 TIME: 16:36 24 HR Interval Summary Free Text/Dictation Continues acute care. at bedside reports that he may be slightly improved today Subjective hx not possible: other (ams) Exam Vital Signs Vitals Vital Signs Date Temp Pulse Resp B/P (MAP) Pulse Ox O2 O2 Flow FiO2 Time Delivery Rate 08/29/18 87 20 92 Nasal 2.0 14:47 Cannula 08/29/18 98.2 107/59 07:43 (75) Intake and Output 08/28/18 08/28/18 08/29/18 1515:00 23:00 07:00 IntakeIntake Total 110 ml 720 ml 890 ml OutputOutput Total 800 ml 1850 ml BalanceBalance 110 ml -80 ml -960 ml Exam PE: Gen Appearance: No Apparent Distress HEENT: Normocephalic Cardiovascular: Regular rate Abdomen: Soft Extremities: Dry, edematous.. NE: The patient was lethargic, and sparsely verbal.. oriented to person only.. Cranial nerve examination was limited by mental status. Pupils were equal and reactive to light. There was no afferent pupillary defect. Funduscopic examination was limited. Face was grossly symmetric, w/ present corneal and cough reflexes. Tone was normal. Muscle bulk was normal. I did not see fasciculations. The patient moved his limbs to command, weakly, grossly symmetrically.. Coordination and gait testing was limited by mental status. Arm and leg reflexes were symmetric. Lee's sign was absent. Plantar responses were flexor. IDOKO,KILO Aug 29, 2018 16:43
[2018-08-29] MEDS ORDERED: INSULIN GLARGINE [LANTus] (100 UNITS/ML) SYG SC SCH (20:00)
[2018-08-29 20:34] VITALS: BP 112/63; PULSE 92; RESP 18
[2018-08-30] VITALS (19 sets, daily range): BP systolic 79–128; BP diastolic 56–73; PULSE 72–100; RESP 18–20
[2018-08-30] MEDS: ACCU-CHEK XX SCH ×7 (01:00→21:43)
[2018-08-30] MEDS: INSULIN ASPART [NOVOLOG] 3 ML PEN SC SCH ×6 (01:19→20:26)
[2018-08-30] MEDS: LEVOTHYROXINE 50 MCG TAB PO SCH (05:27)
--- NOTE | 2018-08-30 07:42 | PN ---
Date/Time of Note Date/Time of Note DATE: 08/30/18 TIME: 07:35 Assessment/Plan Lines/Catheters IV Catheter Type (from Nrs): filemon Central line still needed: Yes Blevins in Place (from Nrs): Yes Assessment/Plan Chief Complaint/Hosp Course 08/15/18 Pt is s/p major abdominal surgery ( adenocarcinoma of ascending colon and large infiltrating splenic flexure GIST w/ invasion into proximal jejunum) requiring 2 anastomoses ( ileo-sigmoid, and duodenal-jejunal anastomosis). Other findings at the time of surgery include mild to moderate ascites, and fine, nodularity of the liver - cirrhosis?-, and inflammation extending from the transverse colon mesentary to the pancreas, which felt firm). Decision to have the next dialysis as per nephrology. 3 Pt is on O2 ( 2 l/min) , and on Levophed. He is due to have dialysis this am at 0800. Stable but still critical 08/19/18 Pt is w/o nausea, tolerating some liquids, and says he is passing some gas.Pt does not move well which was also the case pre-op but persists due to post op pain. 3 POD #6 doing well. Path shows T3N0 adenocarcinoma, and T4N0 GIST w/ 1 tumor implant 3 POD #8 Still confused, eats when prompted, not ambulating well 3 POD #9 Pt has an entero-cutaneous fistula. WBC is sl elevated from yesterday 3 POD #12 Stable fistula. Normal wbc, low albumin. TPN is in place 3 POD #13 400 cc of stool per fistula overnight ( 1300 in 24 hrs ? - unclear). TPN is ongoing. Pt is stable w/ good labs 3 POD #14 300 cc of stool now more bilious as the stool becomes mostly enteric secretions. TPN. Dialysis today 08/30/18 POD #16 550 cc over 24 hrs, and thick liquid , and no gas overnight. VSS, and normal wbc Assessment/Plan Pt does not move and mental state is variable. No sign of infection and enterocutaneous fistula is stable. Out put is relatively low but couldconsider octreotide to reduce secretions further. I wonder if the pt is withdrawing mentally from his situation and other chronic illnesses. Subjective 24 Hr Interval Summary Pt is lying in bed and makes eye contacy but will not speak. No abdominal pain. Review with the night nurse shows stoma/ fistula output to be 150 during the day and 400 over night. Drainage is brown/ dk green. Subjective hx not possible: pt non-verbal Feeding: NPO Pain Control: well controlled Exam/Review of Systems Vital Signs Vitals Vital Signs Date Temp Pulse Resp B/P (MAP) Pulse Ox O2 O2 Flow FiO2 Time Delivery Rate 08/30/18 2.0 05:07 08/30/18 98.6 99 20 118/62 93 Nasal 02:07 (80) Cannula Intake and Output 08/29/18 08/29/18 08/30/18 1515:00 23:00 07:00 IntakeIntake Total 160 ml 1605 ml 585 ml OutputOutput Total 200 ml 400 ml 700 ml BalanceBalance -40 ml 1205 ml -115 ml Exam Constitutional: non-verbal Gastrointestinal: soft, non-tender Results Result Diagram: 08/30/18 0455 08/30/18 0455 GONZÁLEZ MERIDA MD Aug 30, 2018 07:41
[2018-08-30] MEDS: ALBUTEROL/IPRATROPIUM (NEB) 3 ML AMP HHN SCH ×3 (08:32→20:02)
[2018-08-30] MEDS: MIDODRINE 5 MG TAB PO SCH (08:51)
[2018-08-30] MEDS: FOLIC ACID 1 MG TAB PO SCH (09:00)
[2018-08-30] MEDS: LORATADINE 10 MG TAB NGT SCH (09:00)
[2018-08-30] MEDS: FAMOTIDINE 20 MG TAB PO SCH (09:00)
[2018-08-30] MEDS: CHOLECALCIFEROL 1,000 UNIT TAB PO SCH (09:00)
[2018-08-30] MEDS: FLUTICASONE 0.05% 16 GM NAS SPRAY NASAL SCH ×2 (09:00→20:24)
[2018-08-30] MEDS: ALBUMIN HUMAN 25% 100 ML IV PRN (10:41)
--- NOTE | 2018-08-30 11:03 | CONS ---
Assessment/Plan Assessment/Plan Hospital Course (Demo Recall) #Adenocarcinoma of ascending Colon ca -final pathology report reveals 2 separate masses with different pathology results. -the ascending colon mass is consistent with a Moderately-differentiated adenocarcinoma, invading through the muscularis propria, with all 0/18 negative for disease, 3.6 x 2.8 x 1.1 cm. -the splenic flexture mass is 10.5 x 9.0 x 7.0 cm.and consistent with a high grade GIST tumor -CT does not reveal evidence of distant mets -in terms of the adenocarcinoma, pt does not need adjuvant chemotherapy given this was a stage IIA tumor. 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 400cc overnight -pt is NPO #ESRD -continue HD per renal #Diabetes - A1c noted - Continue Lantus and ISS #Hypothyroidism - Continue Synthroid #Nonischemic CM - pacer in place - nonchronic Thank you for the opportunity to participate in this patients care A total of 40 minutes of face to face time was spent speaking with the patient, of which greater than 50% was spent in counseling and coordination of care and the detailed question and answer session. Consultation Date/Type/Reason Admit Date/Time Aug 02, 2018 at 10:57 Initial Consult Date 08/09/18 Type of Consult oncology Reason for Consultation colon cancer Requesting Provider: DULCE GALINDO Date/Time of Note DATE: 08/30/18 TIME: 11:01 24 HR Interval Summary Free Text/Dictation fistula continues to leak. continues on HD Exam/Review of Systems Exam Vitals Vital Signs Date Temp Pulse Resp B/P (MAP) Pulse Ox O2 O2 Flow FiO2 Time Delivery Rate 08/30/18 96 10:25 08/30/18 20 117/70 98 Nasal 3.0 09:40 (86) Cannula 08/30/18 98.2 07:43 Intake and Output 3/14/19 3/14/19 3/15/19 1414:59 22:59 06:59 IntakeIntake Total 160 ml 1605 ml 585 ml OutputOutput Total 200 ml 400 ml 700 ml BalanceBalance -40 ml 1205 ml -115 ml Constitutional: alert, oriented, distress, frail Psych: anxiety, depression Head: normocephalic Eyes: nl conjunctiva ENMT: nl external ears & nose Respiratory: clear to auscultation Cardiovascular: regular rate and rhythm Gastrointestinal: other (colostomy bag over fistula) Musculoskeletal: nl extremities to inspection Results Result Diagram: 08/30/18 0455 08/30/18 0455 Results 24hrs Laboratory Tests Test 08/29/18 12:53 08/29/18 17:34 08/29/18 20:31 08/30/18 01:16 Bedside Glucose 218 249 H 227 H 224 H Test 08/30/18 04:55 08/30/18 05:28 08/30/18 09:01 White Blood Count 5.9 # Red Blood Count 2.75 L Hemoglobin 8.1 L Hematocrit 26.4 L Mean Corpuscular 96.0 Volume Mean Corpuscular 29.5 Hemoglobin Mean Corpuscular 30.7 L Hemoglobin Concent Red Cell 16.3 H Distribution Width Platelet Count 82 #L Mean Platelet Volume 13.3 H Immature 1.900 H Granulocytes % Neutrophils % Segmented 34 L Neutrophils % (Manual) Band Neutrophils % 34 H (Manual) Lymphocytes % Lymphocytes % 10 L (Manual) Reactive Lymphocytes 2 H % (Manual) Monocytes % Monocytes % (Manual) 8 Eosinophils % Eosinophils % 9 H (Manual) Basophils % Metamyelocytes % 1 H (manual) Myelocytes % 2 H (Manual) Nucleated Red Blood 0.0 Cells % Immature 0.110 H Granulocytes # Neutrophils # Neutrophils # 2.1 (Manual) Band Neutrophils # 2.0 H Lymphocytes (Manual) 0.5 L Lymphocytes # Reactive Lymphocytes 0.1 H # Monocytes # Monocytes # (Manual) 0.4 Eosinophils # Basophils # Metamyelocytes # 0.0 Myelocytes # 0.1 H Nucleated Red Blood Cells # Platelet Estimate DECREASED Polychromasia 3+ Poikilocytosis 3+ Anisocytosis 1+ Macrocytosis 1+ Spherocytes 1+ Sodium Level 137 Potassium Level 4.0 Chloride Level 106 Carbon Dioxide Level 20 L Anion Gap 11 Blood Urea Nitrogen 60 H Creatinine 3.90 H Est Glomerular Filtrat Rate mL/min Glucose Level 223 H Calcium Level 9.5 Phosphorus Level 3.8 Magnesium Level 2.0 Bedside Glucose 224 H 204 Medications Medication Current Medications Ondansetron HCl (Zofran Inj) 4 mg Q6H PRN IV NAUSEA/VOMITING Last administered on 08/19/18 12:55; Admin Dose 4 MG; Start 08/02/18 at 13:00 Diagnostic Test (Pha) (Accu-Chek) 1 ea 02 XX Last administered on 08/30/18at 02:34; Admin Dose 1 EA; Start 08/03/18 at 02:00 Glucose (Glutose) 15 gm Q15M PRN PO DECREASED GLUCOSE; Start 08/02/18 at 13:30 Glucose (Glutose) 22.5 gm Q15M PRN PO DECREASED GLUCOSE; Start 08/02/18 at 13:30 Dextrose (D50w Syringe) 25 ml Q15M PRN IV DECREASED GLUCOSE Last administered on 08/19/18 02:02; Admin Dose 25 ML; Start 08/02/18 at 13:30 Dextrose (D50w Syringe) 50 ml Q15M PRN IV DECREASED GLUCOSE; Start 08/02/18 at 13:30 Glucagon (Glucagen) 1 mg Q15M PRN IM DECREASED GLUCOSE; Start 08/02/18 at 13:30 Glucose (Glutose) 15 gm Q15M PRN BUCCAL DECREASED GLUCOSE; Start 08/02/18 at 13:30 Cholecalciferol (Vitamin D) 1,000 unit DAILY PO Last administered on 08/29/18 10:03; Admin Dose 1,000 UNIT; Start 08/03/18 at 09:00 Folic Acid (Folic Acid) 1 mg DAILY PO Last administered on 08/29/18 10:03; Admin Dose 1 MG; Start 08/03/18 at 09:00 Midodrine (Proamatine) 5 mg ON DIALYSIS DAYS PO Last administered on 08/30/18 08:51; Admin Dose 5 MG; Start 08/02/18 at 18:00 Gabapentin (Neurontin) 100 mg DAILY PO Last administered on 08/13/18 09:07; Admin Dose 100 MG; Start 08/07/18 at 11:30; Status Hold Phenol (Cepastat Lozenge) 1 lozenge Q1H PRN MT COUGH Last administered on 08/08/18 02:34; Admin Dose 1 LOZENGE; Start 08/07/18 at 23:00 Heparin Sodium (Porcine) (Heparin (1000 Units/ml)) 6,100 unit AFTER DIALYSIS CATHETER Last administered on 08/28/18 23:17; Admin Dose 6,100 UNIT; Start 08/16/18 at 22:30 Acetaminophen (Tylenol Tab) 650 mg Q6H PRN PO MILD PAIN(1-3)OR ELEVATED TEMP Last administered on 08/18/18 05:59; Admin Dose 650 MG; Start 08/18/18 at 05:30 Levothyroxine Sodium (Synthroid) 50 mcg DAILY@06 PO Last administered on 08/30/18 05:27; Admin Dose 50 MCG; Start 08/20/18 at 06:00 Famotidine (Pepcid) 20 mg DAILY PO Last administered on 08/29/18 10:03; Admin Dose 20 MG; Start 08/21/18 at 09:00 Apixaban (Eliquis) 2.5 mg BID PO Last administered on 08/27/18 21:24; Admin Dose 2.5 MG; Start 08/21/18 at 09:30; Status Hold Diagnostic Test (Pha) (Accu-Chek) 1 ea Q4 XX Last administered on 08/30/18 05:31; Admin Dose 1 EA; Start 08/23/18 at 21:00 Fat Emulsion Intravenous 250 ml @ 21 mls/hr DAILY IV Last administered on 08/29/18 10:01; Admin Dose 21 MLS/HR; Start 08/24/18 at 14:00 Total Parenteral Nutrition 1,000 ml @ 65 mls/hr [id number] IV Last administered on 08/29/18 20:28; Admin Dose 65 MLS/HR; Start 08/24/18 at 16:00 Albumin Human 100 ml @ 100 mls/hr WITH DIALYSIS PRN IV SBP <90 DURING DIALYSIS Last administered on 08/30/18 10:41; Admin Dose 100 MLS/HR; Start 08/26/18 at 08:30 Loperamide HCl (Imodium Cap) 4 mg DAILY PO Last administered on 08/29/18 10:03; Admin Dose 4 MG; Start 08/27/18 at 09:00 Insulin Aspart (Novolog Insulin Pen) NOVOLOG *MODERATE* ALGORITHM Q4 SC Last administered on 08/30/18at 10:12; Admin Dose 4 UNIT; Start 08/27/18 at 13:00 Ferric Sodium Gluconate Complex 125 mg/Sodium Chloride 110 ml @ 110 mls/hr DAILY@1300 IVPB Last administered on 08/29/18 13:26; Admin Dose 110 MLS/HR; Start 08/28/18 at 13:00; Stop 09/01/18 at 13:59 Loratadine (Claritin) 10 mg DAILY NGT Last administered on 08/29/18 10:02; Admin Dose 10 MG; Start 08/29/18 at 09:00; Stop 09/11/18 at 12:00 Fluticasone Propionate (Flonase 0.05% Nasal) 1 spray BID NASAL Last administered on 08/29/18at 20:29; Admin Dose 1 SPRAY; Start 08/28/18 at 21:00; Stop 08/26/19 at 22:00 Albuterol/ Ipratropium (Duoneb) 3 ml Q6HWA RESP THERAPY HHN Last administered on 08/30/18at 08:32; Admin Dose 3 ML; Start 08/28/18 at 20:00 Albuterol/ Ipratropium (Duoneb) 3 ml Q2H RESP THERAPY PRN HHN shortness of breath; Start 08/28/18 at 19:00 Insulin Glargine (Lantus) 40 units BID@0800,2000 SC ; Start 08/30/18 at 20:00 JAGUAR CARTWRIGHT M.D. Aug 30, 2018 11:03
[2018-08-30] MEDS: TPN 1,000 ML IV SCH (12:14)
[2018-08-30] MEDS: FAT EMULSION 20% 250 ML IV SCH (12:15)
[2018-08-30] MEDS: BALSAM PERU/CASTOR OIL 60 GM TUBE TOP SCH ×2 (12:15→20:25)
[2018-08-30] MEDS: HEPARIN 1000 UNITS/ML 10 ML INJ CATHETER SCH (12:51)
[2018-08-30] MEDS: LOPERAMIDE 2 MG CAP PO SCH (14:01)
--- NOTE | 2018-08-30 14:22 | PN ---
Date/Time of Note Date/Time of Note DATE: 08/30/18 TIME: 14:21 Objective Vitals Vital Signs Date Temp Pulse Resp B/P (MAP) Pulse Ox O2 O2 Flow FiO2 Time Delivery Rate 08/30/18 92 12:50 08/30/18 20 93/62 (72) 98 Nasal 3.0 12:40 Cannula 08/30/18 98.2 07:43 Intake and Output 08/29/18 08/29/18 08/30/18 1515:00 23:00 07:00 IntakeIntake Total 160 ml 1605 ml 585 ml OutputOutput Total 200 ml 400 ml 700 ml BalanceBalance -40 ml 1205 ml -115 ml Results Result Diagram: 08/30/18 0455 08/30/18 0455 Medications Medications Current Medications Ondansetron HCl (Zofran Inj) 4 mg Q6H PRN IV NAUSEA/VOMITING Last administered on 08/19/18at 12:55; Admin Dose 4 MG; Start 08/02/18 at 13:00 Diagnostic Test (Pha) (Accu-Chek) 1 ea 02 XX Last administered on 08/30/18at 02:34; Admin Dose 1 EA; Start 08/03/18 at 02:00 Glucose (Glutose) 15 gm Q15M PRN PO DECREASED GLUCOSE; Start 08/02/18 at 13:30 Glucose (Glutose) 22.5 gm Q15M PRN PO DECREASED GLUCOSE; Start 08/02/18 at 13:30 Dextrose (D50w Syringe) 25 ml Q15M PRN IV DECREASED GLUCOSE Last administered on 08/19/18at 02:02; Admin Dose 25 ML; Start 08/02/18 at 13:30 Dextrose (D50w Syringe) 50 ml Q15M PRN IV DECREASED GLUCOSE; Start 08/02/18 at 13:30 Glucagon (Glucagen) 1 mg Q15M PRN IM DECREASED GLUCOSE; Start 08/02/18 at 13:30 Glucose (Glutose) 15 gm Q15M PRN BUCCAL DECREASED GLUCOSE; Start 08/02/18 at 13:30 Cholecalciferol (Vitamin D) 1,000 unit DAILY PO Last administered on 08/29/18at 10:03; Admin Dose 1,000 UNIT; Start 08/03/18 at 09:00 Folic Acid (Folic Acid) 1 mg DAILY PO Last administered on 08/29/18 10:03; Admin Dose 1 MG; Start 08/03/18 at 09:00 Midodrine (Proamatine) 5 mg ON DIALYSIS DAYS PO Last administered on 08/30/18 08:51; Admin Dose 5 MG; Start 08/02/18 at 18:00 Gabapentin (Neurontin) 100 mg DAILY PO Last administered on 08/13/18 09:07; Admin Dose 100 MG; Start 08/07/18 at 11:30; Status Hold Phenol (Cepastat Lozenge) 1 lozenge Q1H PRN MT COUGH Last administered on 08/08/18 02:34; Admin Dose 1 LOZENGE; Start 08/07/18 at 23:00 Heparin Sodium (Porcine) (Heparin (1000 Units/ml)) 6,100 unit AFTER DIALYSIS CATHETER Last administered on 08/30/18 12:51; Admin Dose 6,100 UNIT; Start 08/16/18 at 22:30 Acetaminophen (Tylenol Tab) 650 mg Q6H PRN PO MILD PAIN(1-3)OR ELEVATED TEMP Last administered on 08/18/18 05:59; Admin Dose 650 MG; Start 08/18/18 at 05:30 Levothyroxine Sodium (Synthroid) 50 mcg DAILY@06 PO Last administered on 08/30/18 05:27; Admin Dose 50 MCG; Start 08/20/18 at 06:00 Famotidine (Pepcid) 20 mg DAILY PO Last administered on 08/29/18 10:03; Admin Dose 20 MG; Start 08/21/18 at 09:00 Apixaban (Eliquis) 2.5 mg BID PO Last administered on 08/27/18 21:24; Admin Dose 2.5 MG; Start 08/21/18 at 09:30; Status Hold Diagnostic Test (Pha) (Accu-Chek) 1 ea Q4 XX Last administered on 08/30/18 09:00; Admin Dose 1 EA; Start 08/23/18 at 21:00 Fat Emulsion Intravenous 250 ml @ 21 mls/hr DAILY IV Last administered on 08/30/18 12:15; Admin Dose 21 MLS/HR; Start 08/24/18 at 14:00 Total Parenteral Nutrition 1,000 ml @ 65 mls/hr [id number] IV Last administered on 08/30/18 12:14; Admin Dose 65 MLS/HR; Start 08/24/18 at 16:00 Albumin Human 100 ml @ 100 mls/hr WITH DIALYSIS PRN IV SBP <90 DURING DIALYSIS Last administered on 08/30/18 10:41; Admin Dose 100 MLS/HR; Start 08/26/18 at 08:30 Loperamide HCl (Imodium Cap) 4 mg DAILY PO Last administered on 08/30/18 14:01; Admin Dose 4 MG; Start 08/27/18 at 09:00 Insulin Aspart (Novolog Insulin Pen) NOVOLOG *MODERATE* ALGORITHM Q4 SC Last administered on 08/30/18 10:12; Admin Dose 4 UNIT; Start 08/27/18 at 13:00 Ferric Sodium Gluconate Complex 125 mg/Sodium Chloride 110 ml @ 110 mls/hr DAILY@1300 IVPB Last administered on 08/29/18 13:26; Admin Dose 110 MLS/HR; Start 08/28/18 at 13:00; Stop 09/01/18 at 13:59 Loratadine (Claritin) 10 mg DAILY NGT Last administered on 08/29/18 10:02; Admin Dose 10 MG; Start 08/29/18 at 09:00; Stop 09/11/18 at 12:00 Fluticasone Propionate (Flonase 0.05% Nasal) 1 spray BID NASAL Last administered on 08/29/18 20:29; Admin Dose 1 SPRAY; Start 08/28/18 at 21:00; Stop 08/26/19 at 22:00 Albuterol/ Ipratropium (Duoneb) 3 ml Q6HWA RESP THERAPY HHN Last administered on 08/30/18 08:32; Admin Dose 3 ML; Start 08/28/18 at 20:00 Albuterol/ Ipratropium (Duoneb) 3 ml Q2H RESP THERAPY PRN HHN shortness of breath; Start 08/28/18 at 19:00 Insulin Glargine (Lantus) 40 units BID@0800,2000 SC ; Start 08/30/18 at 20:00 VTE Prophylaxis Risk score (from Nsg)>0 risk: 12 SCD applied (from Nsg): Yes Lines/Catheters IV Catheter Type: Blevins in Place: No Assessment/Plan Hospital Course Subjective Patient alert but still intermittent confusion Subjective Physical exam General: Patient is laying in bed and answers questions appropriately intermittently Mentation: Patient is alert and oriented to self Head: Normocephalic atraumatic Eyes: EOMI, pupils reactive to light Neck: Supple, nontender, midline Respiratory: Clear to auscultation bilaterally Cardiovascular: regular rate, no obvious murmurs Gastrointestinal: Moderately tender to palpation, bowel sounds heard. 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 patient kept NPO except meds and on TPN at this time - Dr. Meneses/Jimbo on board and appreciate consultation - GI on board and appreciate recommendations. 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 Will need 36 months of adjuvant therapy for GIST tumor once abdominal wounds healed but no further intervention for adenocarcinoma - Cardiology consultation appreciated - ID consulted for possible prophylaxis abx End-stage renal disease on HD - Nephrology on board for HD management and appreciate recommendations - clogged fistula catheter (HeRO), consulted Dr. Coelho for recs as he is patient's vascular surgeon, recommended Horacio for now until we can fully anticoagulate. Follow as outpatient. On Eliquis and tolerating (but currently held due to hgb dropping) Anemia -Likely secondary to above chronic anemia secondary to end-stage renal disease -Monitor hemoglobin levels, attempted to restart Eliquis, however due to continued mild decrease in hemoglobin we will once again hold. -Continues to have very small decrease every day, after discussing with consulting physicians may be secondary to blood draws. -We will transfuse as needed for hemoglobin less than 8. Encephalopathy -Progressively worsening for the past week, today to encephalopathic to even take oral medications, CT head showing mastoiditis and some sinus issues but no CVA -MRI unable to be done due to pacemaker -Neurology consulted, Dr. Taylor -Likely toxic metabolic encephalopathy per neurology, possibly also a component of hospital delirium, patient still able to follow commands GI bleed 2/2 to above mass - resolved? Arm swelling - Ultrasound showed right brachial DVT as well as thrombosis of the left ce phalic vein. Patient's midline on his right arm is the likely culprit for the DVT on his right brachial vein. - dialysis catheter in left arm clotted for now, no Cathflo due to recent surgery per vascular surgery - monitor, warm compresses. - Patient is likely an hypercoagulable state due to his carcinoma and started on Eliquis Diabetes - A1c noted - counseled about importance of diet choices and glucose control - Continue Lantus and ISS. 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 Output decreasing - Continue on TPN at this time -Hold Eliquis ,continue to monitor hemoglobin DULCE GALINDO Aug 30, 2018 14:22
--- NOTE | 2018-08-30 14:52 | CONS ---
Assessment/Plan Assessment/Plan Hospital Course (Demo Recall) 1 End-stage renal disease, on hemodialysis, MWF with mild CHF 2. Bloody diarrhea with evidence of splenic flexure mass on the CT and possible fistula communicating through the small intestine status post colonoscopy with 2: Masses s/p subtotal colectomy. Now abdominal fistula with pouch 3. Hypotension. On Midodrine at home 4. History of congestive heart failure 5. Hypercholesterolemia. 6. Hx of total hip replacement. 7. Clotted left arm AV graft 8. Hypoglycemia. 9. Macrocytic hypochromic anemia mixed etiology, recent blood loss and 2/2 kidney disease 10. 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% Assessment/Plan (Daily) - HD MWF, HD today - Midodrine on hd days - iv iron -management of fistula/output per surgery - Renally Dose all meds - management on adenocarcinoma per onc> Adjuvant chemo for GIST - Pt will need f/u Dr Coelho for Hero graft upon dc Consultation Date/Type/Reason Admit Date/Time Aug 02, 2018 at 10:57 Initial Consult Date 08/02/18 Type of Consult nephrology Reason for Consultation dr Pimentel Requesting Provider: DULCE GALINDO Date/Time of Note DATE: 08/30/18 TIME: 14:45 24 HR Interval Summary Free Text/Dictation not answering Exam/Review of Systems Exam Vitals Vital Signs Date Temp Pulse Resp B/P (MAP) Pulse Ox O2 O2 Flow FiO2 Time Delivery Rate 08/30/18 92 12:50 08/30/18 20 93/62 (72) 98 Nasal 3.0 12:40 Cannula 08/30/18 98.2 07:43 Intake and Output 08/29/18 08/29/18 08/30/18 1515:00 23:00 07:00 IntakeIntake Total 160 ml 1605 ml 585 ml OutputOutput Total 200 ml 400 ml 700 ml BalanceBalance -40 ml 1205 ml -115 ml Exam sleepy, left arm AV Hero graft is clotted, Clotted left arm AV graft Constitutional: alert Eyes: nl conjunctiva Neck: supple Respiratory: diminished breath sounds Cardiovascular: regular rate and rhythm Gastrointestinal: soft, surgical scars, other (puc) Results Result Diagram: 08/30/18 0455 08/30/18 0455 Results 24hrs Laboratory Tests Test 08/29/18 17:34 08/29/18 20:31 08/30/18 01:16 08/30/18 04:55 Bedside Glucose 249 H 227 H 224 H White Blood Count 5.9 # Red Blood Count 2.75 L Hemoglobin 8.1 L Hematocrit 26.4 L Mean Corpuscular 96.0 Volume Mean Corpuscular 29.5 Hemoglobin Mean Corpuscular 30.7 L Hemoglobin Concent Red Cell 16.3 H Distribution Width Platelet Count 82 #L Mean Platelet Volume 13.3 H Immature 1.900 H Granulocytes % Neutrophils % Segmented 34 L Neutrophils % (Manual) Band Neutrophils % 34 H (Manual) Lymphocytes % Lymphocytes % 10 L (Manual) Reactive Lymphocytes 2 H % (Manual) Monocytes % Monocytes % (Manual) 8 Eosinophils % Eosinophils % 9 H (Manual) Basophils % Metamyelocytes % 1 H (manual) Myelocytes % 2 H (Manual) Nucleated Red Blood 0.0 Cells % Immature 0.110 H Granulocytes # Neutrophils # Neutrophils # 2.1 (Manual) Band Neutrophils # 2.0 H Lymphocytes (Manual) 0.5 L Lymphocytes # Reactive Lymphocytes 0.1 H # Monocytes # Monocytes # (Manual) 0.4 Eosinophils # Basophils # Metamyelocytes # 0.0 Myelocytes # 0.1 H Nucleated Red Blood Cells # Platelet Estimate DECREASED Polychromasia 3+ Poikilocytosis 3+ Anisocytosis 1+ Macrocytosis 1+ Spherocytes 1+ Sodium Level 137 Potassium Level 4.0 Chloride Level 106 Carbon Dioxide Level 20 L Anion Gap 11 Blood Urea Nitrogen 60 H Creatinine 3.90 H Est Glomerular Filtrat Rate mL/min Glucose Level 223 H Calcium Level 9.5 Phosphorus Level 3.8 Magnesium Level 2.0 Hepatitis B Surface NEGATIVE Antigen Test 08/30/18 05:28 08/30/18 09:01 08/30/18 12:51 Bedside Glucose 224 H 204 115 Medications Medication Current Medications Ondansetron HCl (Zofran Inj) 4 mg Q6H PRN IV NAUSEA/VOMITING Last administered on 08/19/18at 12:55; Admin Dose 4 MG; Start 08/02/18 at 13:00 Diagnostic Test (Pha) (Accu-Chek) 1 ea 02 XX Last administered on 08/30/18at 02:34; Admin Dose 1 EA; Start 08/03/18 at 02:00 Glucose (Glutose) 15 gm Q15M PRN PO DECREASED GLUCOSE; Start 08/02/18 at 13:30 Glucose (Glutose) 22.5 gm Q15M PRN PO DECREASED GLUCOSE; Start 08/02/18 at 13:30 Dextrose (D50w Syringe) 25 ml Q15M PRN IV DECREASED GLUCOSE Last administered on 08/19/18 02:02; Admin Dose 25 ML; Start 08/02/18 at 13:30 Dextrose (D50w Syringe) 50 ml Q15M PRN IV DECREASED GLUCOSE; Start 08/02/18 at 13:30 Glucagon (Glucagen) 1 mg Q15M PRN IM DECREASED GLUCOSE; Start 08/02/18 at 13:30 Glucose (Glutose) 15 gm Q15M PRN BUCCAL DECREASED GLUCOSE; Start 08/02/18 at 13:30 Cholecalciferol (Vitamin D) 1,000 unit DAILY PO Last administered on 08/29/18 10:03; Admin Dose 1,000 UNIT; Start 08/03/18 at 09:00 Folic Acid (Folic Acid) 1 mg DAILY PO Last administered on 08/29/18 10:03; Admin Dose 1 MG; Start 08/03/18 at 09:00 Midodrine (Proamatine) 5 mg ON DIALYSIS DAYS PO Last administered on 08/30/18 08:51; Admin Dose 5 MG; Start 08/02/18 at 18:00 Gabapentin (Neurontin) 100 mg DAILY PO Last administered on 08/13/18 09:07; Admin Dose 100 MG; Start 08/07/18 at 11:30; Status Hold Phenol (Cepastat Lozenge) 1 lozenge Q1H PRN MT COUGH Last administered on 08/08/18 02:34; Admin Dose 1 LOZENGE; Start 08/07/18 at 23:00 Heparin Sodium (Porcine) (Heparin (1000 Units/ml)) 6,100 unit AFTER DIALYSIS CATHETER Last administered on 08/30/18 12:51; Admin Dose 6,100 UNIT; Start 08/16/18 at 22:30 Acetaminophen (Tylenol Tab) 650 mg Q6H PRN PO MILD PAIN(1-3)OR ELEVATED TEMP Last administered on 08/18/18 05:59; Admin Dose 650 MG; Start 08/18/18 at 05:30 Levothyroxine Sodium (Synthroid) 50 mcg DAILY@06 PO Last administered on 08/30/18 05:27; Admin Dose 50 MCG; Start 08/20/18 at 06:00 Famotidine (Pepcid) 20 mg DAILY PO Last administered on 08/29/18 10:03; Admin Dose 20 MG; Start 08/21/18 at 09:00 Apixaban (Eliquis) 2.5 mg BID PO Last administered on 08/27/18 21:24; Admin Dose 2.5 MG; Start 08/21/18 at 09:30; Status Hold Diagnostic Test (Pha) (Accu-Chek) 1 ea Q4 XX Last administered on 08/30/18 09:00; Admin Dose 1 EA; Start 08/23/18 at 21:00 Fat Emulsion Intravenous 250 ml @ 21 mls/hr DAILY IV Last administered on 08/30/18 12:15; Admin Dose 21 MLS/HR; Start 08/24/18 at 14:00 Total Parenteral Nutrition 1,000 ml @ 65 mls/hr [id number] IV Last administered on 08/30/18 12:14; Admin Dose 65 MLS/HR; Start 08/24/18 at 16:00 Albumin Human 100 ml @ 100 mls/hr WITH DIALYSIS PRN IV SBP <90 DURING DIALYSIS Last administered on 08/30/18 10:41; Admin Dose 100 MLS/HR; Start 08/26/18 at 08:30 Loperamide HCl (Imodium Cap) 4 mg DAILY PO Last administered on 08/30/18 14:01; Admin Dose 4 MG; Start 08/27/18 at 09:00 Insulin Aspart (Novolog Insulin Pen) NOVOLOG *MODERATE* ALGORITHM Q4 SC Last administered on 08/30/18 10:12; Admin Dose 4 UNIT; Start 08/27/18 at 13:00 Ferric Sodium Gluconate Complex 125 mg/Sodium Chloride 110 ml @ 110 mls/hr WESLEY Y@1300 IVPB Last administered on 08/29/18 13:26; Admin Dose 110 MLS/HR; Start 08/28/18 at 13:00; Stop 09/01/18 at 13:59 Loratadine (Claritin) 10 mg DAILY NGT Last administered on 08/29/18 10:02; A dmin Dose 10 MG; Start 08/29/18 at 09:00; Stop 09/11/18 at 12:00 Fluticasone Propionate (Flonase 0.05% Nasal) 1 spray BID NASAL Last administered on 08/29/18at 20:29; Admin Dose 1 SPRAY; Start 08/28/18 at 21:00; Stop 08/26/19 at 22:00 Albuterol/ Ipratropium (Duoneb) 3 ml Q6HWA RESP THERAPY HHN Last administered on 08/30/18at 08:32; Admin Dose 3 ML; Start 08/28/18 at 20:00 Albuterol/ Ipratropium (Duoneb) 3 ml Q2H RESP THERAPY PRN HHN shortness of breath; Start 08/28/18 at 19:00 Insulin Glargine (Lantus) 40 units BID@0800,2000 SC ; Start 08/30/18 at 20:00 TU CARTER Aug 30, 2018 14:51
[2018-08-30] MEDS: SOD FERRIC GLUC COMPLX 125 MG in SOD CHLORIDE 0.9% 100 ML IVPB SCH (15:10)
--- NOTE | 2018-08-30 15:28 | CONS ---
Assessment/Plan Assessment/Plan Hospital Course (Demo Recall) 1230 Patient is awake in HD looks comfortable Indwelling: Right IJ triple-lumen catheter, right femoral Filemon, left upper extremity AV graft or fistula Physical examination: Chronically ill-appearing elderly man who is noncommunicative in no distress. Head atraumatic normocephalic. Sclera nonicteric. Neck is supple, chest rise symmetrical. Heart: S1-S2. Abdomen soft bowel sounds present. Extremities without cyanosis. 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 ESRD/HD Clotted LUE AVF R brachial DVT DM CAD/PPM R fem filemon Plan: Stable, off antibiotics, continue present care, follow surgical recommendations Consultation Date/Type/Reason Admit Date/Time Aug 02, 2018 at 10:57 Initial Consult Date 08/09/18 Type of Consult id Requesting Provider: DULCE GALINDO Date/Time of Note DATE: 08/30/18 TIME: 15:27 Exam/Review of Systems Exam Vitals Vital Signs Date Temp Pulse Resp B/P (MAP) Pulse Ox O2 O2 Flow FiO2 Time Delivery Rate 08/30/18 98 2.0 14:57 08/30/18 79 20 Nasal 14:56 Cannula 08/30/18 93/62 (72) 12:40 08/30/18 98.2 07:43 Intake and Output 08/29/18 08/29/18 08/30/18 1515:00 23:00 07:00 IntakeIntake Total 160 ml 1605 ml 585 ml OutputOutput Total 200 ml 400 ml 700 ml BalanceBalance -40 ml 1205 ml -115 ml Results Result Diagram: 08/30/18 0455 08/30/18 0455 Results 24hrs Laboratory Tests Test 08/29/18 17:34 08/29/18 20:31 08/30/18 01:16 08/30/18 04:55 Bedside Glucose 249 H 227 H 224 H White Blood Count 5.9 # Red Blood Count 2.75 L Hemoglobin 8.1 L Hematocrit 26.4 L Mean Corpuscular 96.0 Volume Mean Corpuscular 29.5 Hemoglobin Mean Corpuscular 30.7 L Hemoglobin Concent Red Cell 16.3 H Distribution Width Platelet Count 82 #L Mean Platelet Volume 13.3 H Immature 1.900 H Granulocytes % Neutrophils % Segmented 34 L Neutrophils % (Manual) Band Neutrophils % 34 H (Manual) Lymphocytes % Lymphocytes % 10 L (Manual) Reactive Lymphocytes 2 H % (Manual) Monocytes % Monocytes % (Manual) 8 Eosinophils % Eosinophils % 9 H (Manual) Basophils % Metamyelocytes % 1 H (manual) Myelocytes % 2 H (Manual) Nucleated Red Blood 0.0 Cells % Immature 0.110 H Granulocytes # Neutrophils # Neutrophils # 2.1 (Manual) Band Neutrophils # 2.0 H Lymphocytes (Manual) 0.5 L Lymphocytes # Reactive Lymphocytes 0.1 H # Monocytes # Monocytes # (Manual) 0.4 Eosinophils # Basophils # Metamyelocytes # 0.0 Myelocytes # 0.1 H Nucleated Red Blood Cells # Platelet Estimate DECREASED Polychromasia 3+ Poikilocytosis 3+ Anisocytosis 1+ Macrocytosis 1+ Spherocytes 1+ Sodium Level 137 Potassium Level 4.0 Chloride Level 106 Carbon Dioxide Level 20 L Anion Gap 11 Blood Urea Nitrogen 60 H Creatinine 3.90 H Est Glomerular Filtrat Rate mL/min Glucose Level 223 H Calcium Level 9.5 Phosphorus Level 3.8 Magnesium Level 2.0 Hepatitis B Surface NEGATIVE Antigen Test 08/30/18 05:28 08/30/18 09:01 08/30/18 12:51 Bedside Glucose 224 H 204 115 Medications Medication Current Medications Ondansetron HCl (Zofran Inj) 4 mg Q6H PRN IV NAUSEA/VOMITING Last administered on 08/19/18at 12:55; Admin Dose 4 MG; Start 08/02/18 at 13:00 Diagnostic Test (Pha) (Accu-Chek) 1 ea 02 XX Last administered on 08/30/18at 02:34; Admin Dose 1 EA; Start 08/03/18 at 02:00 Glucose (Glutose) 15 gm Q15M PRN PO DECREASED GLUCOSE; Start 08/02/18 at 13:30 Glucose (Glutose) 22.5 gm Q15M PRN PO DECREASED GLUCOSE; Start 08/02/18 at 13:30 Dextrose (D50w Syringe) 25 ml Q15M PRN IV DECREASED GLUCOSE Last administered on 08/19/18at 02:02; Admin Dose 25 ML; Start 08/02/18 at 13:30 Dextrose (D50w Syringe) 50 ml Q15M PRN IV DECREASED GLUCOSE; Start 08/02/18 at 13:30 Glucagon (Glucagen) 1 mg Q15M PRN IM DECREASED GLUCOSE; Start 08/02/18 at 13:30 Glucose (Glutose) 15 gm Q15M PRN BUCCAL DECREASED GLUCOSE; Start 08/02/18 at 13:30 Cholecalciferol (Vitamin D) 1,000 unit DAILY PO Last administered on 08/29/18 10:03; Admin Dose 1,000 UNIT; Start 08/03/18 at 09:00 Folic Acid (Folic Acid) 1 mg DAILY PO Last administered on 08/29/18 10:03; Admin Dose 1 MG; Start 08/03/18 at 09:00 Midodrine (Proamatine) 5 mg ON DIALYSIS DAYS PO Last administered on 08/30/18 08:51; Admin Dose 5 MG; Start 08/02/18 at 18:00 Gabapentin (Neurontin) 100 mg DAILY PO Last administered on 08/13/18 09:07; Admin Dose 100 MG; Start 08/07/18 at 11:30; Status Hold Phenol (Cepastat Lozenge) 1 lozenge Q1H PRN MT COUGH Last administered on 08/08/18 02:34; Admin Dose 1 LOZENGE; Start 08/07/18 at 23:00 Heparin Sodium (Porcine) (Heparin (1000 Units/ml)) 6,100 unit AFTER DIALYSIS CATHETER Last administered on 08/30/18 12:51; Admin Dose 6,100 UNIT; Start 08/16/18 at 22:30 Acetaminophen (Tylenol Tab) 650 mg Q6H PRN PO MILD PAIN(1-3)OR ELEVATED TEMP Last administered on 08/18/18 05:59; Admin Dose 650 MG; Start 08/18/18 at 05:30 Levothyroxine Sodium (Synthroid) 50 mcg DAILY@06 PO Last administered on 08/30/18 05:27; Admin Dose 50 MCG; Start 08/20/18 at 06:00 Famotidine (Pepcid) 20 mg DAILY PO Last administered on 08/29/18 10:03; Admin Dose 20 MG; Start 08/21/18 at 09:00 Apixaban (Eliquis) 2.5 mg BID PO Last administered on 08/27/18 21:24; Admin Dose 2.5 MG; Start 08/21/18 at 09:30; Status Hold Diagnostic Test (Pha) (Accu-Chek) 1 ea Q4 XX Last administered on 08/30/18 09:00; Admin Dose 1 EA; Start 08/23/18 at 21:00 Fat Emulsion Intravenous 250 ml @ 21 mls/hr DAILY IV Last administered on 08/30/18 12:15; Admin Dose 21 MLS/HR; Start 08/24/18 at 14:00 Total Parenteral Nutrition 1,000 ml @ 65 mls/hr [id number] IV Last administered on 08/30/18 12:14; Admin Dose 65 MLS/HR; Start 08/24/18 at 16:00 Albumin Human 100 ml @ 100 mls/hr WITH DIALYSIS PRN IV SBP <90 DURING DIALYSIS Last administered on 08/30/18 10:41; Admin Dose 100 MLS/HR; Start 08/26/18 at 08:30 Loperamide HCl (Imodium Cap) 4 mg DAILY PO Last administered on 08/30/18 14:01; Admin Dose 4 MG; Start 08/27/18 at 09:00 Insulin Aspart (Novolog Insulin Pen) NOVOLOG *MODERATE* ALGORITHM Q4 SC Last administered on 08/30/18 10:12; Admin Dose 4 UNIT; Start 08/27/18 at 13:00 Ferric Sodium Gluconate Complex 125 mg/Sodium Chloride 110 ml @ 110 mls/hr DAILY@1300 IVPB Last administered on 08/30/18 15:10; Admin Dose 110 MLS/HR; Start 08/28/18 at 13:00; Stop 09/01/18 at 13:59 Loratadine (Claritin) 10 mg DAILY NGT Last administered on 08/29/18 10:02; Admin Dose 10 MG; Start 08/29/18 at 09:00; Stop 09/11/18 at 12:00 Fluticasone Propionate (Flonase 0.05% Nasal) 1 spray BID NASAL Last administered on 08/29/18 20:29; Admin Dose 1 SPRAY; Start 08/28/18 at 21:00; Stop 08/26/19 at 22:00 Albuterol/ Ipratropium (Duoneb) 3 ml Q6HWA RESP THERAPY HHN Last administered on 08/30/18at 14:53; Admin Dose 3 ML; Start 08/28/18 at 20:00 Albuterol/ Ipratropium (Duoneb) 3 ml Q2H RESP THERAPY PRN HHN shortness of breath; Start 08/28/18 at 19:00 Insulin Glargine (Lantus) 40 units BID@0800,2000 SC ; Start 08/30/18 at 20:00 CHIN FORD NP Aug 30, 2018 15:28
--- NOTE | 2018-08-30 16:18 | CONS ---
Assessment/Plan Assessment/Plan Hospital Course 78 M c/ ESRD and other comorbidities, who initially presented 1 month ago for management of generalized weakness, difficulty and other complaints. He is noted have become progressively altered over the course of days, for which neurology is consulted... The clinical picture could be consistent with an acute and multifactorial toxic- metabolic encephalopathy.. Seizure/stroke are less likely. HCT is unrevealing (MRI brain is contraindicated 2/2 PPM) CXR is notable for pulmonary vascular congestion, and right basilar opacification.. TSH is elevated Ammonia is wnl P: Await FT4 [place] as able Limit sedating medications where possible Other management per primary Will follow clinically Consultation Date/Type/Reason Admit Date/Time Aug 02, 2018 at 10:57 Type of Consult Neurology Requesting Provider: DULCE GALINDO Date/Time of Note DATE: 08/30/18 TIME: 16:18 24 HR Interval Summary Free Text/Dictation Continues acute care. Pt reportedly more awake and alert after HD (per family). Exam Vital Signs Vitals Vital Signs Date Temp Pulse Resp B/P (MAP) Pulse Ox O2 O2 Flow FiO2 Time Delivery Rate 08/30/18 98 2.0 14:57 08/30/18 79 20 Nasal 14:56 Cannula 08/30/18 93/62 (72) 12:40 08/30/18 98.2 07:43 Intake and Output 08/29/18 08/29/18 08/30/18 1515:00 23:00 07:00 IntakeIntake Total 160 ml 1605 ml 585 ml OutputOutput Total 200 ml 400 ml 700 ml BalanceBalance -40 ml 1205 ml -115 ml Exam PE: Gen Appearance: No Apparent Distress HEENT: Normocephalic Cardiovascular: Regular rate Abdomen: Soft Extremities: Dry, edematous.. NE: The patient was lethargic, and sparsely verbal.. oriented to person only.. Cranial nerve examination was limited by mental status. Pupils were equal and reactive to light. There was no afferent pupillary defect. Funduscopic examination was limited. Face was grossly symmetric, w/ present corneal and cough reflexes. Tone was normal. Muscle bulk was normal. I did not see fasciculations. The karina ent moved his limbs to command, weakly, grossly symmetrically.. Coordination and gait testing was limited by mental status. Arm and leg reflexes were symmetric. Lee's sign was absent. Plantar responses were flexor. ARTUR ROACH NP Aug 30, 2018 16:18
[2018-08-30] MEDS: INSULIN GLARGINE [LANTus] (100 UNITS/ML) SYG SC SCH (20:30)
[2018-08-31] MEDS: INSULIN ASPART [NOVOLOG] 3 ML PEN SC SCH ×6 (01:00→21:00)
[2018-08-31] MEDS: ACCU-CHEK XX SCH ×7 (01:23→21:00)
[2018-08-31] MEDS: TPN 1,000 ML IV SCH ×2 (02:27→17:32)
[2018-08-31 02:47] VITALS: BP 115/60; PULSE 90; RESP 20
[2018-08-31] MEDS ORDERED: KETOROLAC 30 MG INJ IV ONE (03:10)
[2018-08-31] MEDS: LEVOTHYROXINE 50 MCG TAB PO SCH (05:27)
[2018-08-31] MEDS: ALBUTEROL/IPRATROPIUM (NEB) 3 ML AMP HHN SCH ×3 (08:26→21:07)
[2018-08-31 08:30] VITALS: BP 103/68; PULSE 77; RESP 18
[2018-08-31] MEDS: CHOLECALCIFEROL 1,000 UNIT TAB PO SCH (09:48)
[2018-08-31] MEDS: LORATADINE 10 MG TAB NGT SCH (09:48)
[2018-08-31] MEDS: LOPERAMIDE 2 MG CAP PO SCH ×2 (09:48→21:03)
[2018-08-31] MEDS: FAMOTIDINE 20 MG TAB PO SCH (09:48)
[2018-08-31] MEDS: FOLIC ACID 1 MG TAB PO SCH (09:48)
[2018-08-31] MEDS: BALSAM PERU/CASTOR OIL 60 GM TUBE TOP SCH ×2 (09:49→21:26)
[2018-08-31] MEDS: FLUTICASONE 0.05% 16 GM NAS SPRAY NASAL SCH ×2 (09:50→21:03)
--- NOTE | 2018-08-31 09:51 | CONS ---
Assessment/Plan Assessment/Plan Hospital Course 78 M c/ ESRD and other comorbidities, who initially presented 1 month ago for management of generalized weakness, difficulty and other complaints. He is noted have become progressively altered over the course of days, for which neurology is consulted... The clinical picture could be consistent with an acute and multifactorial toxic- metabolic encephalopathy.. Seizure/stroke are less likely. HCT is unrevealing (MRI brain is contraindicated 2/2 PPM) CXR is notable for pulmonary vascular congestion, and right basilar opacification.. TSH is elevated Ammonia is wnl P: Await FT4 [place] as able Limit sedating medications where possible Other management per primary Will follow clinically Consultation Date/Type/Reason Admit Date/Time Aug 02, 2018 at 10:57 Type of Consult Neurology Requesting Provider: DULCE GALINDO Date/Time of Note DATE: 08/31/18 TIME: 09:51 24 HR Interval Summary Free Text/Dictation Continues acute care. Exam Vital Signs Vitals Vital Signs Date Temp Pulse Resp B/P (MAP) Pulse Ox O2 O2 Flow FiO2 Time Delivery Rate 08/31/18 97.9 77 18 103/68 99 Room Air 08:30 (80) 08/31/18 3.0 08:27 Intake and Output 08/30/18 08/30/18 08/31/18 1515:00 23:00 07:00 IntakeIntake Total 415 ml 540 ml 1015 ml OutputOutput Total 1900 ml 400 ml 200 ml BalanceBalance -1485 ml 140 ml 815 ml Exam PE: Gen Appearance: No Apparent Distress HEENT: Normocephalic Cardiovascular: Regular rate Abdomen: Soft Extremities: Dry, edematous.. NE: The patient was awake, alert, and sparsely verbal.. oriented to person only.. Cranial nerve examination was limited by mental status. Pupils were equal and reactive to light. There was no afferent pupillary defect. Funduscopic examination was limited. Face was grossly symmetric, w/ present corneal and cough reflexes. Tone was normal. Muscle bulk was normal. I did not see fasciculations. The patient moved his limbs to command, weakly, grossly symmetrically.. Coordination and gait testing was limited by mental status. Arm and leg reflexes were symmetric. Lee's sign was absent. Plantar responses were flexor. ARTUR ROACH NP Aug 31, 2018 09:51
--- NOTE | 2018-08-31 10:18 | PN ---
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 Other findings at the time of surgery include mild to moderate ascites, and fine, nodularity of the liver - cirrhosis?-, and inflammation extending from the transverse colon mesentary to the pancreas, which felt firm). Decision to have the next dialysis as per nephrology. 08/16/18 Pt is on O2 ( 2 l/min) , and on Levophed. He is due to have dialysis this am at 0800. Stable but still critical 08/19/18 Pt is w/o nausea, tolerating some liquids, and says he is passing some gas.Pt does not move well which was also the case pre-op but persists due to post op pain. 3 POD #6 doing well. Path shows T3N0 adenocarcinoma, and T4N0 GIST w/ 1 tumor implant 3 POD #8 Still confused, eats when prompted, not ambulating well 3 POD #9 Pt has an entero-cutaneous fistula. WBC is sl elevated from yesterday 3 POD #12 Stable fistula. Normal wbc, low albumin. TPN is in place 3 POD #13 400 cc of stool per fistula overnight ( 1300 in 24 hrs ? - unclear). TPN is ongoing. Pt is stable w/ good labs 3 POD #14 300 cc of stool now more bilious as the stool becomes mostly enteric secretions. TPN. Dialysis today 08/30/18 POD #16 550 cc over 24 hrs, and thick liquid , and no gas overnight. VSS, and normal wbc 3 POD #17 600 -900 cc of dark liquid stool and gas. VSS. Anemic and normal wbc. No ANTB x 2 days Assessment/Plan Musch more alert today and able to have a conversation. Will increase Imodium to BID, and add Tylenol #3 for pain . Consider transfusion w/ next dialysis Subjective 24 Hr Interval Summary Pt is much more alert this am and speaks and answers questions appropriately. No complaints, specifically no abdominal pain. Asked regarding the fistula. Constitutional: no complaints Feeding: NPO Pain Control: well controlled Exam/Review of Systems Vital Signs Vitals Vital Signs Date Temp Pulse Resp B/P (MAP) Pulse Ox O2 O2 Flow FiO2 Time Delivery Rate 08/31/18 97.9 77 18 103/68 99 Room Air 08:30 (80) 08/31/18 3.0 08:27 Intake and Output 08/30/18 08/30/18 08/31/18 1515:00 23:00 07:00 IntakeIntake Total 415 ml 540 ml 1015 ml OutputOutput Total 1900 ml 400 ml 200 ml BalanceBalance -1485 ml 140 ml 815 ml Exam Constitutional: alert, oriented Gastrointestinal: soft, non-tender Results Result Diagram: 08/31/18 0420 08/31/18 0420 GONZÁLEZ MERIDA MD Aug 31, 2018 10:18
--- NOTE | 2018-08-31 11:22 | CONS ---
Assessment/Plan Assessment/Plan Hospital Course (Demo Recall) ID PROGRESS NOTE CURRENT ABX: DAY # OFF ABX 08/31/1841908/31/18419 24H INTERVAL SUMMARY * Resting today -- lethargic s/p HD yesterday, no fevers, VSS, NAD --(+)Diarrhea with Imodium onboard * Indwelling: Right IJ triple-lumen catheter, right femoral Filemon, left upper extremity AV graft or fistula DIAGNOSTIC IMAGING * 08/28/[address]: IMPRESSION:No evidence of acute intracranial pathology. Th ere is generalized volume loss with a central collection with microvascular changes, stable. There is inspissated material within the left maxillary sinus. There is also a left-sided mastoiditis. * 08/28/18 CXR: 1. Findings suggestive of pulmonary vascular congestion with small bilateral pleural effusions. Findings are increased when compared to the prior examination.2. Right basilar interstitial opacities may reflect atelectasis or superimposed pneumonia. Findings are also mildly increased.3. Mild cardiomegaly and aortic atherosclerosis. 4. Tubes and lines, as d escribed above. 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 w/ left-sided mastoiditis. -(+)Diarrhea with Imodium onboard DM CAD/PPM R fem filemon ABX ALLERGIES: None to ABX INVASIVES: PIV CURRENT ABX: DAY # OFF ABX ID RECOMMENDATIONS/PLAN: 1. Continue to monitor OFF ABX. . Consultation Date/Type/Reason Admit Date/Time Aug 02, 2018 at 10:57 Initial Consult Date 08/09/18 Requesting Provider: DULCE GALINDO Date/Time of Note DATE: 08/31/18 TIME: 11:21 Exam/Review of Systems Exam Vitals Vital Signs Date Temp Pulse Resp B/P (MAP) Pulse Ox O2 O2 Flow FiO2 Time Delivery Rate 08/31/18 97.9 77 18 103/68 99 Room Air 08:30 (80) 08/31/18 3.0 08:27 Intake and Output 08/30/18 08/30/18 08/31/18 1515:00 23:00 07:00 IntakeIntake Total 415 ml 540 ml 1015 ml OutputOutput Total 1900 ml 400 ml 200 ml BalanceBalance -1485 ml 140 ml 815 ml Results Result Diagram: 08/31/18 0420 08/31/18 0420 Results 24hrs Laboratory Tests Test 08/30/18 12:51 08/30/18 18:28 08/30/18 20:25 08/31/18 01:22 Bedside Glucose 115 151 170 162 Test 08/31/18 04:20 08/31/18 05:26 08/31/18 09:46 White Blood Count 6.2 Red Blood Count 2.45 L Hemoglobin 7.1 L Hematocrit 23.5 L Mean Corpuscular 95.9 Volume Mean Corpuscular 29.0 Hemoglobin Mean Corpuscular 30.2 L Hemoglobin Concent Red Cell 16.2 H Distribution Width Platelet Count 97 L Mean Platelet Volume 12.9 H Immature 1.300 H Granulocytes % Neutrophils % Segmented 53 Neutrophils % (Manual) Band Neutrophils % 20 H (Manual) Lymphocytes % Lymphocytes % 10 L (Manual) Monocytes % Monocytes % (Manual) 5 Eosinophils % Eosinophils % 6 (Manual) Basophils % Basophils % (Manual) 2 Blast Cells % 4.0 H (Manual) Nucleated Red Blood 0.0 Cells % Immature 0.080 H Granulocytes # Neutrophils # Neutrophils # 3.4 (Manual) Band Neutrophils # 1.2 H Lymphocytes (Manual) 0.6 L Lymphocytes # Monocytes # Monocytes # (Manual) 0.3 Eosinophils # Basophils # Basophils # (Manual) 0.1 H Nucleated Red Blood Cells # Toxic Granulation 2+ Platelet Estimate DECREASED Polychromasia 3+ Poikilocytosis 1+ Anisocytosis 1+ Macrocytosis 1+ Target Cells 1+ Sodium Level 135 Potassium Level 3.5 Chloride Level 102 Carbon Dioxide Level 25 Anion Gap 8 Blood Urea Nitrogen 43 #H Creatinine 3.16 H Est Glomerular Filtrat Rate mL/min Glucose Level 122 # Calcium Level 9.5 Phosphorus Level 2.4 #L Magnesium Level 1.9 Prealbumin 4.9 L Triglycerides Level 76 Bedside Glucose 136 128 Medications Medication Current Medications Ondansetron HCl (Zofran Inj) 4 mg Q6H PRN IV NAUSEA/VOMITING Last administered on 08/19/18 12:55; Admin Dose 4 MG; Start 08/02/18 at 13:00 Diagnostic Test (Pha) (Accu-Chek) 1 ea 02 XX Last administered on 08/31/18 01:23; Admin Dose 1 EA; Start 08/03/18 at 02:00 Glucose (Glutose) 15 gm Q15M PRN PO DECREASED GLUCOSE; Start 08/02/18 at 13:30 Glucose (Glutose) 22.5 gm Q15M PRN PO DECREASED GLUCOSE; Start 08/02/18 at 13:30 Dextrose (D50w Syringe) 25 ml Q15M PRN IV DECREASED GLUCOSE Last administered on 08/19/18 02:02; Admin Dose 25 ML; Start 08/02/18 at 13:30 Dextrose (D50w Syringe) 50 ml Q15M PRN IV DECREASED GLUCOSE; Start 08/02/18 at 13:30 Glucagon (Glucagen) 1 mg Q15M PRN IM DECREASED GLUCOSE; Start 08/02/18 at 13:30 Glucose (Glutose) 15 gm Q15M PRN BUCCAL DECREASED GLUCOSE; Start 08/02/18 at 13:30 Cholecalciferol (Vitamin D) 1,000 unit DAILY PO Last administered on 08/31/18 09:48; Admin Dose 1,000 UNIT; Start 08/03/18 at 09:00 Folic Acid (Folic Acid) 1 mg DAILY PO Last administered on 08/31/18 09:48; Admin Dose 1 MG; Start 08/03/18 at 09:00 Midodrine (Proamatine) 5 mg ON DIALYSIS DAYS PO Last administered on 08/30/18 08:51; Admin Dose 5 MG; Start 08/02/18 at 18:00 Gabapentin (Neurontin) 100 mg DAILY PO Last administered on 08/13/18 09:07; Admin Dose 100 MG; Start 08/07/18 at 11:30; Status Hold Phenol (Cepastat Lozenge) 1 lozenge Q1H PRN MT COUGH Last administered on 08/08/18 02:34; Admin Dose 1 LOZENGE; Start 08/07/18 at 23:00 Heparin Sodium (Porcine) (Heparin (1000 Units/ml)) 6,100 unit AFTER DIALYSIS CATHETER Last administered on 08/30/18 12:51; Admin Dose 6,100 UNIT; Start 08/16/18 at 22:30 Acetaminophen (Tylenol Tab) 650 mg Q6H PRN PO MILD PAIN(1-3)OR ELEVATED TEMP Last administered on 08/18/18 05:59; Admin Dose 650 MG; Start 08/18/18 at 05:30 Levothyroxine Sodium (Synthroid) 50 mcg DAILY@06 PO Last administered on 08/31/18 05:27; Admin Dose 50 MCG; Start 08/20/18 at 06:00 Famotidine (Pepcid) 20 mg DAILY PO Last administered on 08/31/18 09:48; Admin Dose 20 MG; Start 08/21/18 at 09:00 Apixaban (Eliquis) 2.5 mg BID PO Last administered on 08/27/18 21:24; Admin Dose 2.5 MG; Start 08/21/18 at 09:30; Status Hold Diagnostic Test (Pha) (Accu-Chek) 1 ea Q4 XX Last administered on 08/31/18 09:49; Admin Dose 1 EA; Start 08/23/18 at 21:00 Fat Emulsion Intravenous 250 ml @ 21 mls/hr DAILY IV Last administered on 08/30/18 12:15; Admin Dose 21 MLS/HR; Start 08/24/18 at 14:00 Total Parenteral Nutrition 1,000 ml @ 65 mls/hr [id number] IV Last administered on 08/31/18 02:27; Admin Dose 65 MLS/HR; Start 08/24/18 at 16:00 Albumin Human 100 ml @ 100 mls/hr WITH DIALYSIS PRN IV SBP <90 DURING DIALYSIS Last administered on 08/30/18 10:41; Admin Dose 100 MLS/HR; Start 08/26/18 at 08:30 Insulin Aspart (Novolog Insulin Pen) NOVOLOG *MODERATE* ALGORITHM Q4 SC Last administered on 08/30/18 18:30; Admin Dose 2 UNIT; Start 08/27/18 at 13:00 Ferric Sodium Gluconate Complex 125 mg/Sodium Chloride 110 ml @ 110 mls/hr DAILY@1300 IVPB Last administered on 08/30/18at 15:10; Admin Dose 110 MLS/HR; Start 08/28/18 at 13:00; Stop 09/01/18 at 13:59 Loratadine (Claritin) 10 mg DAILY NGT Last administered on 08/31/18at 09:48; Admin Dose 10 MG; Start 08/29/18 at 09:00; Stop 09/11/18 at 12:00 Fluticasone Propionate (Flonase 0.05% Nasal) 1 spray BID NASAL Last administered on 08/31/18at 09:50; Admin Dose 1 SPRAY; Start 08/28/18 at 21:00; Stop 08/26/19 at 22:00 Albuterol/ Ipratropium (Duoneb) 3 ml Q6HWA RESP THERAPY HHN Last administered on 08/31/18at 08:26; Admin Dose 3 ML; Start 08/28/18 at 20:00 Albuterol/ Ipratropium (Duoneb) 3 ml Q2H RESP THERAPY PRN HHN shortness of breath; Start 08/28/18 at 19:00 Insulin Glargine (Lantus) 40 units BID@0800,2000 SC Last administered on 08/30/18at 20:30; Admin Dose 40 UNITS; Start 08/30/18 at 20:00 Loperamide HCl (Imodium Cap) 4 mg BID PO ; Start 08/31/18 at 21:00 Potassium Phosphate 15 mm/ Sodium Chloride 255 ml @ 63.75 mls/ hr ONCE IV ; Start 08/31/18 at 11:30; Stop 08/31/18 at 15:29 GABRIEL CARDOZO NP Aug 31, 2018 11:21
[2018-08-31] MEDS ORDERED: POTASSIUM PHOSPHATE 15 MM in SOD CHLORIDE 0.9% 250 ML IV SCH (11:30)
[2018-08-31] MEDS: FAT EMULSION 20% 250 ML IV SCH (11:57)
--- NOTE | 2018-08-31 12:18 | CONS ---
Assessment/Plan Assessment/Plan Hospital Course (Demo Recall) 1 End-stage renal disease, on hemodialysis, MWF with mild CHF 2. Bloody diarrhea with evidence of splenic flexure mass on the CT and possible fistula communicating through the small intestine status post colonoscopy with 2: Masses s/p subtotal colectomy. Now abdominal fistula with pouch 3. Hypotension. On Midodrine at home 4. History of congestive heart failure 5. Hypercholesterolemia. 6. Hx of total hip replacement. 7. Clotted left arm AV graft 8. Hypoglycemia. 9. Macrocytic hypochromic anemia mixed etiology, recent blood loss and 2/2 kidney disease 10. 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 DM type II, controlled now Assessment/Plan (Daily) - HD MWF, HD was yesterday - Midodrine on HD days -TPN per primary - iv iron 5 bags ordered -management of fistula/output per surgery - Renally Dose all meds - management on adenocarcinoma per onc> Adjuvant chemo for GIST Consultation Date/Type/Reason Admit Date/Time Aug 02, 2018 at 10:57 Initial Consult Date 08/02/18 Type of Consult nephrology Reason for Consultation Dr Pimentel Requesting Provider: DULCE GALINDO Date/Time of Note DATE: 08/31/18 TIME: 12:17 24 HR Interval Summary Free Text/Dictation poor response. Exam/Review of Systems Exam Vitals Vital Signs Date Temp Pulse Resp B/P (MAP) Pulse Ox O2 O2 Flow FiO2 Time Delivery Rate 08/31/18 97.9 77 18 103/68 99 Room Air 08:30 (80) 08/31/18 3.0 08:27 Intake and Output 08/30/18 08/30/18 08/31/18 1515:00 23:00 07:00 IntakeIntake Total 415 ml 540 ml 1015 ml OutputOutput Total 1900 ml 400 ml 200 ml BalanceBalance -1485 ml 140 ml 815 ml Exam right groin Permcath Constitutional: alert, oriented Head: normocephalic ENMT: nl external ears & nose Respiratory: clear to auscultation Cardiovascular: regular rate and rhythm Gastrointestinal: soft, surgical scars, other (pouch) Extremities: edema (left arm) Results Result Diagram: 08/31/18 0420 08/31/18 0420 Results 24hrs Laboratory Tests Test 08/30/18 12:51 08/30/18 18:28 08/30/18 20:25 08/31/18 01:22 Bedside Glucose 115 151 170 162 Test 08/31/18 04:20 08/31/18 05:26 08/31/18 09:46 White Blood Count 6.2 Red Blood Count 2.45 L Hemoglobin 7.1 L Hematocrit 23.5 L Mean Corpuscular 95.9 Volume Mean Corpuscular 29.0 Hemoglobin Mean Corpuscular 30.2 L Hemoglobin Concent Red Cell 16.2 H Distribution Width Platelet Count 97 L Mean Platelet Volume 12.9 H Immature 1.300 H Granulocytes % Neutrophils % Segmented 53 Neutrophils % (Manual) Band Neutrophils % 20 H (Manual) Lymphocytes % Lymphocytes % 10 L (Manual) Monocytes % Monocytes % (Manual) 5 Eosinophils % Eosinophils % 6 (Manual) Basophils % Basophils % (Manual) 2 Blast Cells % 4.0 H (Manual) Nucleated Red Blood 0.0 Cells % Immature 0.080 H Granulocytes # Neutrophils # Neutrophils # 3.4 (Manual) Band Neutrophils # 1.2 H Lymphocytes (Manual) 0.6 L Lymphocytes # Monocytes # Monocytes # (Manual) 0.3 Eosinophils # Basophils # Basophils # (Manual) 0.1 H Nucleated Red Blood Cells # Toxic Granulation 2+ Platelet Estimate DECREASED Polychromasia 3+ Poikilocytosis 1+ Anisocytosis 1+ Macrocytosis 1+ Target Cells 1+ Sodium Level 135 Potassium Level 3.5 Chloride Level 102 Carbon Dioxide Level 25 Anion Gap 8 Blood Urea Nitrogen 43 #H Creatinine 3.16 H Est Glomerular Filtrat Rate mL/min Glucose Level 122 # Calcium Level 9.5 Phosphorus Level 2.4 #L Magnesium Level 1.9 Prealbumin 4.9 L Triglycerides Level 76 Bedside Glucose 136 128 Medications Medication Current Medications Ondansetron HCl (Zofran Inj) 4 mg Q6H PRN IV NAUSEA/VOMITING Last administered on 08/19/18at 12:55; Admin Dose 4 MG; Start 08/02/18 at 13:00 Diagnostic Test (Pha) (Accu-Chek) 1 ea 02 XX Last administered on 08/31/18at 01:23; Admin Dose 1 EA; Start 08/03/18 at 02:00 Glucose (Glutose) 15 gm Q15M PRN PO DECREASED GLUCOSE; Start 08/02/18 at 13:30 Glucose (Glutose) 22.5 gm Q15M PRN PO DECREASED GLUCOSE; Start 08/02/18 at 13:30 Dextrose (D50w Syringe) 25 ml Q15M PRN IV DECREASED GLUCOSE Last administered on 08/19/18 02:02; Admin Dose 25 ML; Start 08/02/18 at 13:30 Dextrose (D50w Syringe) 50 ml Q15M PRN IV DECREASED GLUCOSE; Start 08/02/18 at 13:30 Glucagon (Glucagen) 1 mg Q15M PRN IM DECREASED GLUCOSE; Start 08/02/18 at 13:30 Glucose (Glutose) 15 gm Q15M PRN BUCCAL DECREASED GLUCOSE; Start 08/02/18 at 13:30 Cholecalciferol (Vitamin D) 1,000 unit DAILY PO Last administered on 08/31/18 09:48; Admin Dose 1,000 UNIT; Start 08/03/18 at 09:00 Folic Acid (Folic Acid) 1 mg DAILY PO Last administered on 08/31/18 09:48; Admin Dose 1 MG; Start 08/03/18 at 09:00 Midodrine (Proamatine) 5 mg ON DIALYSIS DAYS PO Last administered on 08/30/18 08:51; Admin Dose 5 MG; Start 08/02/18 at 18:00 Gabapentin (Neurontin) 100 mg DAILY PO Last administered on 08/13/18 09:07; Admin Dose 100 MG; Start 08/07/18 at 11:30; Status Hold Phenol (Cepastat Lozenge) 1 lozenge Q1H PRN MT COUGH Last administered on 08/08/18 02:34; Admin Dose 1 LOZENGE; Start 08/07/18 at 23:00 Heparin Sodium (Porcine) (Heparin (1000 Units/ml)) 6,100 unit AFTER DIALYSIS CATHETER Last administered on 08/30/18 12:51; Admin Dose 6,100 UNIT; Start 08/16/18 at 22:30 Acetaminophen (Tylenol Tab) 650 mg Q6H PRN PO MILD PAIN(1-3)OR ELEVATED TEMP Last administered on 08/18/18 05:59; Admin Dose 650 MG; Start 08/18/18 at 05:30 Levothyroxine Sodium (Synthroid) 50 mcg DAILY@06 PO Last administered on 08/31/18 05:27; Admin Dose 50 MCG; Start 08/20/18 at 06:00 Famotidine (Pepcid) 20 mg DAILY PO Last administered on 08/31/18 09:48; Admin Dose 20 MG; Start 08/21/18 at 09:00 Apixaban (Eliquis) 2.5 mg BID PO Last administered on 08/27/18 21:24; Admin Dose 2.5 MG; Start 08/21/18 at 09:30; Status Hold Diagnostic Test (Pha) (Accu-Chek) 1 ea Q4 XX Last administered on 08/31/18 09:49; Admin Dose 1 EA; Start 08/23/18 at 21:00 Fat Emulsion Intravenous 250 ml @ 21 mls/hr DAILY IV Last administered on 08/31/18 11:57; Admin Dose 21 MLS/HR; Start 08/24/18 at 14:00 Total Parenteral Nutrition 1,000 ml @ 65 mls/hr [id number] IV Last administered on 08/31/18 02:27; Admin Dose 65 MLS/HR; Start 08/24/18 at 16:00 Albumin Human 100 ml @ 100 mls/hr WITH DIALYSIS PRN IV SBP <90 DURING DIALYSIS Last administered on 08/30/18 10:41; Admin Dose 100 MLS/HR; Start 08/26/18 at 08:30 Insulin Aspart (Novolog Insulin Pen) NOVOLOG *MODERATE* ALGORITHM Q4 SC Last administered on 08/30/18 18:30; Admin Dose 2 UNIT; Start 08/27/18 at 13:00 Ferric Sodium Gluconate Complex 125 mg/Sodium Chloride 110 ml @ 110 mls/hr DAILY@1300 IVPB Last administered on 08/30/18 15:10; Admin Dose 110 MLS/HR; Start 08/28/18 at 13:00; Stop 09/01/18 at 13:59 Loratadine (Claritin) 10 mg DAILY NGT Last administered on 08/31/18 09:48; Admin Dose 10 MG; Start 08/29/18 at 09:00; Stop 09/11/18 at 12:00 Fluticasone Propionate (Flonase 0.05% Nasal) 1 spray BID NASAL Last administered on 08/31/18 09:50; Admin Dose 1 SPRAY; Start 08/28/18 at 21:00; Stop 08/26/19 at 22:00 Albuterol/ Ipratropium (Duoneb) 3 ml Q6HWA RESP THERAPY HHN Last administered on 08/31/18at 08:26; Admin Dose 3 ML; Start 08/28/18 at 20:00 Albuterol/ Ipratropium (Duoneb) 3 ml Q2H RESP THERAPY PRN HHN shortness of breath; Start 08/28/18 at 19:00 Insulin Glargine (Lantus) 40 units BID@0800,2000 SC Last administered on 08/30/18at 20:30; Admin Dose 40 UNITS; Start 08/30/18 at 20:00 Loperamide HCl (Imodium Cap) 4 mg BID PO ; Start 08/31/18 at 21:00 Potassium Phosphate 15 mm/ Sodium Chloride 255 ml @ 63.75 mls/ hr ONCE IV ; Start 08/31/18 at 11:30; Stop 08/31/18 at 15:29 TU CARTER 16, 2019 12:18
[2018-08-31] MEDS: SOD FERRIC GLUC COMPLX 125 MG in SOD CHLORIDE 0.9% 100 ML IVPB SCH (13:22)
[2018-08-31] MEDS: INSULIN GLARGINE [LANTus] (100 UNITS/ML) SYG SC SCH ×2 (13:29→21:07)
[2018-08-31] MEDS ORDERED: SOD CHLORIDE 0.9% 250 ML IV* ONE (14:11)
[2018-08-31] MEDS: ACETAMINOPHEN 325 MG TAB PO PRN (14:17)
--- NOTE | 2018-08-31 14:17 | PN ---
Date/Time of Note Date/Time of Note DATE: 08/31/18 TIME: 14:17 Objective Vitals Vital Signs Date Temp Pulse Resp B/P (MAP) Pulse Ox O2 O2 Flow FiO2 Time Delivery Rate 08/31/18 97.9 77 18 103/68 99 Room Air 08:30 (80) 08/31/18 3.0 08:27 Intake and Output 08/30/18 08/30/18 08/31/18 1515:00 23:00 07:00 IntakeIntake Total 415 ml 540 ml 1015 ml OutputOutput Total 1900 ml 400 ml 200 ml BalanceBalance -1485 ml 140 ml 815 ml Results Result Diagram: 08/31/18 1355 08/31/18 0420 Medications Medications Current Medications Ondansetron HCl (Zofran Inj) 4 mg Q6H PRN IV NAUSEA/VOMITING Last administered on 08/19/18at 12:55; Admin Dose 4 MG; Start 08/02/18 at 13:00 Diagnostic Test (Pha) (Accu-Chek) 1 ea 02 XX Last administered on 08/31/18at 01:23; Admin Dose 1 EA; Start 08/03/18 at 02:00 Glucose (Glutose) 15 gm Q15M PRN PO DECREASED GLUCOSE; Start 08/02/18 at 13:30 Glucose (Glutose) 22.5 gm Q15M PRN PO DECREASED GLUCOSE; Start 08/02/18 at 13:30 Dextrose (D50w Syringe) 25 ml Q15M PRN IV DECREASED GLUCOSE Last administered on 08/19/18at 02:02; Admin Dose 25 ML; Start 08/02/18 at 13:30 Dextrose (D50w Syringe) 50 ml Q15M PRN IV DECREASED GLUCOSE; Start 08/02/18 at 13:30 Glucagon (Glucagen) 1 mg Q15M PRN IM DECREASED GLUCOSE; Start 08/02/18 at 13:30 Glucose (Glutose) 15 gm Q15M PRN BUCCAL DECREASED GLUCOSE; Start 08/02/18 at 13:30 Cholecalciferol (Vitamin D) 1,000 unit DAILY PO Last administered on 08/31/18at 09:48; Admin Dose 1,000 UNIT; Start 08/03/18 at 09:00 Folic Acid (Folic Acid) 1 mg DAILY PO Last administered on 08/31/18at 09:48; Admin Dose 1 MG; Start 08/03/18 at 09:00 Midodrine (Proamatine) 5 mg ON DIALYSIS DAYS PO Last administered on 08/30/18 08:51; Admin Dose 5 MG; Start 08/02/18 at 18:00 Gabapentin (Neurontin) 100 mg DAILY PO Last administered on 08/13/18 09:07; Admin Dose 100 MG; Start 08/07/18 at 11:30; Status Hold Phenol (Cepastat Lozenge) 1 lozenge Q1H PRN MT COUGH Last administered on 08/08/18 02:34; Admin Dose 1 LOZENGE; Start 08/07/18 at 23:00 Heparin Sodium (Porcine) (Heparin (1000 Units/ml)) 6,100 unit AFTER DIALYSIS CATHETER Last administered on 08/30/18 12:51; Admin Dose 6,100 UNIT; Start 08/16/18 at 22:30 Acetaminophen (Tylenol Tab) 650 mg Q6H PRN PO MILD PAIN(1-3)OR ELEVATED TEMP Last administered on 08/18/18 05:59; Admin Dose 650 MG; Start 08/18/18 at 05:30 Levothyroxine Sodium (Synthroid) 50 mcg DAILY@06 PO Last administered on 08/31/18 05:27; Admin Dose 50 MCG; Start 08/20/18 at 06:00 Famotidine (Pepcid) 20 mg DAILY PO Last administered on 08/31/18 09:48; Admin Dose 20 MG; Start 08/21/18 at 09:00 Apixaban (Eliquis) 2.5 mg BID PO Last administered on 08/27/18 21:24; Admin Dose 2.5 MG; Start 08/21/18 at 09:30; Status Hold Diagnostic Test (Pha) (Accu-Chek) 1 ea Q4 XX Last administered on 08/31/18 13:45; Admin Dose 1 EA; Start 08/23/18 at 21:00 Fat Emulsion Intravenous 250 ml @ 21 mls/hr DAILY IV Last administered on 08/31/18 11:57; Admin Dose 21 MLS/HR; Start 08/24/18 at 14:00 Total Parenteral Nutrition 1,000 ml @ 65 mls/hr [id number] IV Last administered on 3/16/19at 02:27; Admin Dose 65 MLS/HR; Start 08/24/18 at 16:00 Albumin Human 100 ml @ 100 mls/hr WITH DIALYSIS PRN IV SBP <90 DURING DIALYSIS Last administered on 08/30/18at 10:41; Admin Dose 100 MLS/HR; Start 08/26/18 at 08:30 Insulin Aspart (Novolog Insulin Pen) NOVOLOG *MODERATE* ALGORITHM Q4 SC Last administered on 08/31/18 13:30; Admin Dose 2 UNIT; Start 08/27/18 at 13:00 Ferric Sodium Gluconate Complex 125 mg/Sodium Chloride 110 ml @ 110 mls/hr DAILY@1300 IVPB Last administered on 08/31/18 13:22; Admin Dose 110 MLS/HR; Start 08/28/18 at 13:00; Stop 09/01/18 at 13:59 Loratadine (Claritin) 10 mg DAILY NGT Last administered on 08/31/18 09:48; Adm in Dose 10 MG; Start 08/29/18 at 09:00; Stop 09/11/18 at 12:00 Fluticasone Propionate (Flonase 0.05% Nasal) 1 spray BID NASAL Last administered on 08/31/18at 09:50; Admin Dose 1 SPRAY; Start 08/28/18 at 21:00; Stop 08/26/19 at 22:00 Albuterol/ Ipratropium (Duoneb) 3 ml Q6HWA RESP THERAPY HHN Last administered on 08/31/18 08:26; Admin Dose 3 ML; Start 08/28/18 at 20:00 Albuterol/ Ipratropium (Duoneb) 3 ml Q2H RESP THERAPY PRN HHN shortness of breath; Start 08/28/18 at 19:00 Insulin Glargine (Lantus) 40 units BID@0800,2000 SC Last administered on 08/31/18 13:29; Admin Dose 40 UNITS; Start 08/30/18 at 20:00 Loperamide HCl (Imodium Cap) 4 mg BID PO ; Start 08/31/18 at 21:00 Potassium Phosphate 15 mm/ Sodium Chloride 255 ml @ 63.75 mls/ hr ONCE IV ; Start 08/31/18 at 11:30; Stop 08/31/18 at 15:29 VTE Prophylaxis Risk score (from Nsg)>0 risk: 6 SCD applied (from Nsg): Yes Lines/Catheters IV Catheter Type: Blevins in Place: No Assessment/Plan Hospital Course Subjective Patient more alert today Subjective Physical exam General: Patient is laying in bed and answers questions appropriately intermittently Mentation: Patient is alert and oriented to self Head: Normocephalic atraumatic Eyes: EOMI, pupils reactive to light Neck: Supple, nontender, midline Respiratory: Clear to auscultation bilaterally Cardiovascular: regular rate, no obvious murmurs Gastrointestinal: Moderately tender to palpation, bowel sounds heard. 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 patient kept NPO except meds and on TPN at this time - Dr. Meneses/Jimbo on board and appreciate consultation - GI on board and appreciate recommendations. 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 Will need 36 months of adjuvant therapy for GIST tumor once abdominal wounds healed but no further intervention for adenocar cinoma - Cardiology consultation appreciated - ID consulted for possible prophylaxis abx End-stage renal disease on HD - Nephrology on board for HD management and appreciate recommendations - clogged fistula catheter (HeRO), consulted Dr. Coelho for recs as he is patient's vascular surgeon, recommended Horacio for now until we can fully anticoagulate. Follow as outpatient. On Eliquis and tolerating (but currently held due to hgb dropping) Anemia -Likely secondary to above chronic anemia secondary to end-stage renal disease -Monitor hemoglobin levels, attempted to restart Eliquis, however due to continued mild decrease in hemoglobin we will once again hold. -Continues to have very small decrease every day, after discussing with consulting physicians may be secondary to blood draws. -We will transfuse as needed for hemoglobin less than 8. Encephalopathy -Progressively worsening for the past week, today to encephalopathic to even take oral medications, CT head showing mastoiditis and some sinus issues but no CVA -MRI unable to be done due to pacemaker -Neurology consulted, Dr. Taylor -Likely toxic metabolic encephalopathy per neurology, possibly also a component of hospital delirium, patient still able to follow commands GI bleed 2/2 to above mass - resolved? Arm swelling - Ultrasound showed right brachial DVT as well as thrombosis of the left cephalic vein. Patient's midline on his right arm is the likely culprit for the DVT on his right brachial vein. - dialysis catheter in left arm clotted for now, no Cathflo due to recent surgery per vascular surgery - monitor, warm compresses. - Patient is likely an hypercoagulable state due to his carcinoma and started o n Eliquis Diabetes - A1c noted - counseled about importance of diet choices and glucose control - Continue Lantus and ISS. adjust as needed Esophagitis - Continue PPI Hypothyroidism - Continue home Synthroid Nonischemic CM - pacer in place - Chronic per outpatient [employer] Mild acute on chronic systolic HF - fluid removal during HD 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 and remains NPO except meds. Output decreasing - Continue on TPN at this time hgb continues to decrease-Hold Eliquis ,continue to monitor hemoglobin DULCE GALINDO Aug 31, 2018 14:17
[2018-08-31 14:27] VITALS: BP 108/64; PULSE 101; RESP 18
--- NOTE | 2018-08-31 16:40 | PN ---
Date/Time of Note Date/Time of Note DATE: 08/31/18 TIME: 16:36 Assessment/Plan VTE Prophylaxis Risk score (from Nsg)>0 risk: 6 SCD applied (from Nsg): Yes Lines/Catheters IV Catheter Type (from Nrs): Urinary Cath still in place: No Assessment/Plan Assessment/Plan #Adenocarcinoma of ascending Colon ca -final pathology report reveals 2 separate masses with different pathology results. -the ascending colon mass is consistent with a Moderately-differentiated adenocarcinoma, invading through the muscularis propria, with all 0/18 negative for disease, 3.6 x 2.8 x 1.1 cm. -the splenic flexture mass is 10.5 x 9.0 x 7.0 cm.and consistent with a high grade GIST tumor -CT does not reveal evidence of distant mets -in terms of the adenocarcinoma, pt does not need adjuvant chemotherapy given this was a stage IIA tumor. 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 400cc overnight -pt is NPO #ESRD -continue HD per renal #Diabetes - A1c noted - Continue Lantus and ISS #Hypothyroidism - Continue Synthroid #Nonischemic CM - pacer in place - nonchronic Result Diagram: 08/31/18 1355 08/31/18 0420 Results 24hrs Laboratory Tests Test 08/30/18 18:28 08/30/18 20:25 08/31/18 01:22 08/31/18 04:20 Bedside Glucose 151 170 162 White Blood Count 6.2 Red Blood Count 2.45 L Hemoglobin 7.1 L Hematocrit 23.5 L Mean Corpuscular 95.9 Volume Mean Corpuscular 29.0 Hemoglobin Mean Corpuscular 30.2 L Hemoglobin Concent Red Cell 16.2 H Distribution Width Platelet Count 97 L Mean Platelet Volume 12.9 H Immature 1.300 H Granulocytes % Neutrophils % Segmented 53 Neutrophils % (Manual) Band Neutrophils % 20 H (Manual) Lymphocytes % Lymphocytes % 10 L (Manual) Monocytes % Monocytes % (Manual) 5 Eosinophils % Eosinophils % 6 (Manual) Basophils % Basophils % (Manual) 2 Blast Cells % 4.0 H (Manual) Nucleated Red Blood 0.0 Cells % Immature 0.080 H Granulocytes # Neutrophils # Neutrophils # 3.4 (Manual) Band Neutrophils # 1.2 H Lymphocytes (Manual) 0.6 L Lymphocytes # Monocytes # Monocytes # (Manual) 0.3 Eosinophils # Basophils # Basophils # (Manual) 0.1 H Nucleated Red Blood Cells # Toxic Granulation 2+ Platelet Estimate DECREASED Polychromasia 3+ Poikilocytosis 1+ Anisocytosis 1+ Macrocytosis 1+ Target Cells 1+ Sodium Level 135 Potassium Level 3.5 Chloride Level 102 Carbon Dioxide Level 25 Anion Gap 8 Blood Urea Nitrogen 43 #H Creatinine 3.16 H Est Glomerular Filtrat Rate mL/min Glucose Level 122 # Calcium Level 9.5 Phosphorus Level 2.4 #L Magnesium Level 1.9 Prealbumin 4.9 L Triglycerides Level 76 Test 08/31/18 05:26 08/31/18 09:46 08/31/18 12:47 08/31/18 13:55 Bedside Glucose 136 128 149 Hemoglobin 7.6 L Hematocrit 25.2 L Exam/Review of Systems Exam Vitals Vital Signs Date Temp Pulse Resp B/P (MAP) Pulse Ox O2 O2 Flow FiO2 Time Delivery Rate 08/31/18 98 20 98 Nasal 3.0 14:40 Cannula 08/31/18 99.2 108/64 14:27 (79) Intake and Output 08/30/18 08/30/18 08/31/18 1515:00 23:00 07:00 IntakeIntake Total 415 ml 540 ml 1015 ml OutputOutput Total 1900 ml 400 ml 200 ml BalanceBalance -1485 ml 140 ml 815 ml Results Results 24hrs Laboratory Tests Test 08/30/18 18:28 08/30/18 20:25 08/31/18 01:22 08/31/18 04:20 Bedside Glucose 151 170 162 White Blood Count 6.2 Red Blood Count 2.45 L Hemoglobin 7.1 L Hematocrit 23.5 L Mean Corpuscular 95.9 Volume Mean Corpuscular 29.0 Hemoglobin Mean Corpuscular 30.2 L Hemoglobin Concent Red Cell 16.2 H Distribution Width Platelet Count 97 L Mean Platelet Volume 12.9 H Immature 1.300 H Granulocytes % Neutrophils % Segmented 53 Neutrophils % (Manual) Band Neutrophils % 20 H (Manual) Lymphocytes % Lymphocytes % 10 L (Manual) Monocytes % Monocytes % (Manual) 5 Eosinophils % Eosinophils % 6 (Manual) Basophils % Basophils % (Manual) 2 Blast Cells % 4.0 H (Manual) Nucleated Red Blood 0.0 Cells % Immature 0.080 H Granulocytes # Neutrophils # Neutrophils # 3.4 (Manual) Band Neutrophils # 1.2 H Lymphocytes (Manual) 0.6 L Lymphocytes # Monocytes # Monocytes # (Manual) 0.3 Eosinophils # Basophils # Basophils # (Manual) 0.1 H Nucleated Red Blood Cells # Toxic Granulation 2+ Platelet Estimate DECREASED Polychromasia 3+ Poikilocytosis 1+ Anisocytosis 1+ Macrocytosis 1+ Target Cells 1+ Sodium Level 135 Potassium Level 3.5 Chloride Level 102 Carbon Dioxide Level 25 Anion Gap 8 Blood Urea Nitrogen 43 #H Creatinine 3.16 H Est Glomerular Filtrat Rate mL/min Glucose Level 122 # Calcium Level 9.5 Phosphorus Level 2.4 #L Magnesium Level 1.9 Prealbumin 4.9 L Triglycerides Level 76 Test 08/31/18 05:26 08/31/18 09:46 08/31/18 12:47 08/31/18 13:55 Bedside Glucose 136 128 149 Hemoglobin 7.6 L Hematocrit 25.2 L Medications Medication Current Medications Ondansetron HCl (Zofran Inj) 4 mg Q6H PRN IV NAUSEA/VOMITING Last administered on 08/19/18at 12:55; Admin Dose 4 MG; Start 08/02/18 at 13:00 Diagnostic Test (Pha) (Accu-Chek) 1 ea 02 XX Last administered on 08/31/18at 01:23; Admin Dose 1 EA; Start 08/03/18 at 02:00 Glucose (Glutose) 15 gm Q15M PRN PO DECREASED GLUCOSE; Start 08/02/18 at 13:30 Glucose (Glutose) 22.5 gm Q15M PRN PO DECREASED GLUCOSE; Start 08/02/18 at 13:30 Dextrose (D50w Syringe) 25 ml Q15M PRN IV DECREASED GLUCOSE Last administered on 08/19/18at 02:02; Admin Dose 25 ML; Start 08/02/18 at 13:30 Dextrose (D50w Syringe) 50 ml Q15M PRN IV DECREASED GLUCOSE; Start 08/02/18 at 13:30 Glucagon (Glucagen) 1 mg Q15M PRN IM DECREASED GLUCOSE; Start 08/02/18 at 13:30 Glucose (Glutose) 15 gm Q15M PRN BUCCAL DECREASED GLUCOSE; Start 08/02/18 at 13:30 Cholecalciferol (Vitamin D) 1,000 unit DAILY PO Last administered on 08/31/18 09:48; Admin Dose 1,000 UNIT; Start 08/03/18 at 09:00 Folic Acid (Folic Acid) 1 mg DAILY PO Last administered on 08/31/18 09:48; Admin Dose 1 MG; Start 08/03/18 at 09:00 Midodrine (Proamatine) 5 mg ON DIALYSIS DAYS PO Last administered on 08/30/18 08:51; Admin Dose 5 MG; Start 08/02/18 at 18:00 Gabapentin (Neurontin) 100 mg DAILY PO Last administered on 08/13/18 09:07; Admin Dose 100 MG; Start 08/07/18 at 11:30; Status Hold Phenol (Cepastat Lozenge) 1 lozenge Q1H PRN MT COUGH Last administered on 08/08/18 02:34; Admin Dose 1 LOZENGE; Start 08/07/18 at 23:00 Heparin Sodium (Porcine) (Heparin (1000 Units/ml)) 6,100 unit AFTER DIALYSIS CATHETER Last administered on 08/30/18 12:51; Admin Dose 6,100 UNIT; Start 08/16/18 at 22:30 Acetaminophen (Tylenol Tab) 650 mg Q6H PRN PO MILD PAIN(1-3)OR ELEVATED TEMP Last administered on 08/31/18 14:17; Admin Dose 650 MG; Start 08/18/18 at 05:30 Levothyroxine Sodium (Synthroid) 50 mcg DAILY@06 PO Last administered on 08/31/18 05:27; Admin Dose 50 MCG; Start 08/20/18 at 06:00 Famotidine (Pepcid) 20 mg DAILY PO Last administered on 08/31/18 09:48; Admin Dose 20 MG; Start 08/21/18 at 09:00 Apixaban (Eliquis) 2.5 mg BID PO Last administered on 08/27/18 21:24; Admin Dose 2.5 MG; Start 08/21/18 at 09:30; Status Hold Diagnostic Test (Pha) (Accu-Chek) 1 ea Q4 XX Last administered on 08/31/18 1 3:45; Admin Dose 1 EA; Start 08/23/18 at 21:00 Fat Emulsion Intravenous 250 ml @ 21 mls/hr DAILY IV Last administered on 08/31/18 11:57; Admin Dose 21 MLS/HR; Start 08/24/18 at 14:00 Total Parenteral Nutrition 1,000 ml @ 65 mls/hr [id number] IV Last administered on 08/31/18 02:27; Admin Dose 65 MLS/HR; Start 08/24/18 at 16:00 Albumin Human 100 ml @ 100 mls/hr WITH DIALYSIS PRN IV SBP <90 DURING DIALYSIS Last administered on 08/30/18 10:41; Admin Dose 100 MLS/HR; Start 08/26/18 at 08:30 Insulin Aspart (Novolog Insulin Pen) NOVOLOG *MODERATE* ALGORITHM Q4 SC Last administered on 08/31/18 13:30; Admin Dose 2 UNIT; Start 08/27/18 at 13:00 Ferric Sodium Gluconate Complex 125 mg/Sodium Chloride 110 ml @ 110 mls/hr DAILY@1300 IVPB Last administered on 08/31/18 13:22; Admin Dose 110 MLS/HR; Start 08/28/18 at 13:00; Stop 09/01/18 at 13:59 Loratadine (Claritin) 10 mg DAILY NGT Last administered on 08/31/18 09:48; Admin Dose 10 MG; Start 08/29/18 at 09:00; Stop 09/11/18 at 12:00 Fluticasone Propionate (Flonase 0.05% Nasal) 1 spray BID NASAL Last administered on 08/31/18 09:50; Admin Dose 1 SPRAY; Start 08/28/18 at 21:00; Stop 08/26/19 at 22:00 Albuterol/ Ipratropium (Duoneb) 3 ml Q6HWA RESP THERAPY HHN Last administered on 08/31/18 14:38; Admin Dose 3 ML; Start 08/28/18 at 20:00 Albuterol/ Ipratropium (Duoneb) 3 ml Q2H RESP THERAPY PRN HHN shortness of breath; Start 08/28/18 at 19:00 Insulin Glargine (Lantus) 40 units BID@0800,2000 SC Last administered on 08/31/18at 13:29; Admin Dose 40 UNITS; Start 08/30/18 at 20:00 Loperamide HCl (Imodium Cap) 4 mg BID PO ; Start 08/31/18 at 21:00 SHAMIR FRANKS Aug 31, 2018 16:40
[2018-08-31 19:40] VITALS: BP 109/60; PULSE 101; RESP 20
[2018-08-31] MEDS: FERROUS SULFATE (EC) 325 MG TAB PO SCH (21:03)
[2018-09-01] VITALS (55 sets, daily range): BP systolic 79–129; BP diastolic 28–84; PULSE 75–101; RESP 11–28
[2018-09-01] MEDS: ACCU-CHEK XX SCH ×7 (01:00→20:25)
[2018-09-01] MEDS: INSULIN ASPART [NOVOLOG] 3 ML PEN SC SCH ×6 (01:00→20:25)
[2018-09-01] MEDS: ACETAMINOPHEN 325 MG TAB PO PRN (03:40)
[2018-09-01] MEDS: DEXTROSE 50% 50 ML SYRINGE IV PRN ×3 (05:22→18:49)
[2018-09-01] MEDS: LEVOTHYROXINE 50 MCG TAB PO SCH (05:30)
[2018-09-01] MEDS ORDERED: INSULIN GLARGINE [LANTus] (100 UNITS/ML) SYG SC SCH ×2 (08:00→20:00)
[2018-09-01] MEDS ORDERED: ALBUMIN HUMAN 25% 100 ML IV ONE (08:00)
[2018-09-01] MEDS ORDERED: MIDODRINE 5 MG TAB PO ONE (08:00)
[2018-09-01] MEDS: FAMOTIDINE 20 MG TAB PO SCH (08:20)
[2018-09-01] MEDS: LOPERAMIDE 2 MG CAP PO SCH ×2 (08:20→20:42)
[2018-09-01] MEDS: CHOLECALCIFEROL 1,000 UNIT TAB PO SCH (08:20)
[2018-09-01] MEDS: FOLIC ACID 1 MG TAB PO SCH (08:20)
[2018-09-01] MEDS: FERROUS SULFATE (EC) 325 MG TAB PO SCH ×2 (08:20→20:42)
[2018-09-01] MEDS: BALSAM PERU/CASTOR OIL 60 GM TUBE TOP SCH ×2 (08:21→20:44)
[2018-09-01] MEDS: FAT EMULSION 20% 250 ML IV SCH (08:21)
[2018-09-01] MEDS: LORATADINE 10 MG TAB NGT SCH (08:21)
[2018-09-01] MEDS: FLUTICASONE 0.05% 16 GM NAS SPRAY NASAL SCH ×2 (08:21→20:44)
[2018-09-01] MEDS: ALBUTEROL/IPRATROPIUM (NEB) 3 ML AMP HHN SCH ×3 (08:50→19:56)
--- NOTE | 2018-09-01 09:31 | PN ---
Date/Time of Note Date/Time of Note DATE: 09/01/18 TIME: 09:26 Assessment/Plan Lines/Catheters IV Catheter Type (from Nrs): Horacio cath Central line still needed: Yes Blevins in Place (from Nrs): No Assessment/Plan Chief Complaint/Hosp Course 08/15/18 Pt is s/p major abdominal surgery ( adenocarcinoma of ascending colon and large infiltrating splenic flexure GIST w/ invasion into proximal jejunum) requiring 2 anastomoses ( ileo-sigmoid, and duodenal-jejunal anastomosis). Other findings at the time of surgery include mild to moderate ascites, and fine, nodularity of the liver - cirrhosis?-, and inflammation extending from the transverse colon mesentary to the pancreas, which felt firm). Decision to have the next dialysis as per nephrology. 3 Pt is on O2 ( 2 l/min) , and on Levophed. He is due to have dialysis this am at 0800. Stable but still critical 3 Pt is w/o nausea, tolerating some liquids, and says he is passing some gas.Pt does not move well which was also the case pre-op but persists due to post op pain. 3 POD #6 doing well. Path shows T3N0 adenocarcinoma, and T4N0 GIST w/ 1 tumor implant 3 POD #8 Still confused, eats when prompted, not ambulating well 3 POD #9 Pt has an entero-cutaneous fistula. WBC is sl elevated from yesterday 3 POD #12 Stable fistula. Normal wbc, low albumin. TPN is in place 3 POD #13 400 cc of stool per fistula overnight ( 1300 in 24 hrs ? - unclear). TPN is ongoing. Pt is stable w/ good labs 3 POD #14 300 cc of stool now more bilious as the stool becomes mostly enteric secretions. TPN. Dialysis today 3 POD #16 550 cc over 24 hrs, and thick liquid , and no gas overnight. VSS, and normal wbc 3 POD #17 600 -900 cc of dark liquid stool and gas. VSS. Anemic and normal wbc. No ANTB x 2 days 3 POD #18 Liquid dark, greenish stool ( 600-900), low BP, anemia, and normal wbc. No sign of sepsis Assessment/Plan Will follow in ICU, continue TPN, and pouch for fistula Subjective 24 Hr Interval Summary Pt has had persistent low BP and due to renal failure, fluid boluses are not appropriate, Dr Boyle hastransferred pt to ICU for inotropic support. Liquid stool is unchanged. Pt is alert and communicative Feeding: NPO Pain Control: well controlled Exam/Review of Systems Vital Signs Vitals Vital Signs Date Temp Pulse Resp B/P (MAP) Pulse Ox O2 O2 Flow FiO2 Time Delivery Rate 09/01/18 93 18 98 Nasal 3.0 08:51 Cannula 09/01/18 122/56 08:46 (78) 09/01/18 98.3 07:26 Intake and Output 08/31/18 08/31/18 09/01/18 1515:00 23:00 07:00 IntakeIntake Total 30 ml 1150.0 ml 815 ml OutputOutput Total 300 ml 350 ml 250 ml BalanceBalance -270 ml 800.0 ml 565 ml Exam Constitutional: alert, oriented (x3) Gastrointestinal: soft, non-tender Results Result Diagram: 09/01/18 0439 09/01/18 0439 GONZÁLEZ MERIDA MD Sep 01, 2018 09:31
[2018-09-01] MEDS ORDERED: traMADol-APAP 37.5-325 1 TAB PO ONE (10:00)
--- NOTE | 2018-09-01 11:05 | CONS ---
Assessment/Plan Assessment/Plan Hospital Course (Demo Recall) ID PROGRESS NOTE CURRENT ABX: DAY # Start Vanco IV + Flagyl + Levaquin 09/01/1843809/01/18 0439 24H INTERVAL SUMMARY * TNS to ICU earlier this am for hypotension requiring pressor support, symptomatic anemia -- pt is bleeding? * Yesterday afternoon patient was noted to have rigors? Patient noted to have chills, shaking, and pallor after IV iron infusion started. * Spouse present -> affirms (+)shaking chills x several days * No fevers, WBC up slightly w/persistent bandemia -- PLT improved to 123 * Indwelling: Right IJ triple-lumen catheter, right femoral Filemon, left upper extremity AV graft or fistula DIAGNOSTIC IMAGING * 08/31/18 LUEXT US: Incomplete study. Only the left internal jugular vein was imaged and appears patent.The patient refused continuation of the exam. * 08/28/[address]: IMPRESSION:No evidence of acute intracranial pathology. There is generalized volume loss with a central collection with microvascular changes, stable. There is inspissated material within the left maxillary sinus. There is also a left-sided mastoiditis. * 08/28/18 CXR: 1. Findings suggestive of pulmonary vascular congestion with small bilateral pleural effusions. Findings are increased when compared to the prior examination.2. Right basilar interstitial opacities may reflect atelectasis or superimposed pneumonia. Findings are also mildly increased.3. Mild cardiomegaly and aortic atherosclerosis. 4. Tubes and lines, as described above. MICRO/OTHER * 08/28/18 BCx(-) * 08/16/18 BCx(-) PHYSICAL EXAMINATION: GENERAL: VSS HEENT: AT, NC, anicteric NECK: Supple, CHEST: Equal chest rise bilaterally, without dyspnea on observation HEART: Pulse RRR ABDOMEN: mid abdominal incision with an area of dehiscence and drainage to which colostomy back is applied with large amount of drainage and it EXTREMITIES: Warm, dry SKIN: No rash, no diaphoresis ID ASSESSMENT 78yo M admit with: S/p sepsis with shock * NEW PROBLEM: Possible early sepsis w/hypotension due to hypovolemia blood loss or infection? * Patient noted to have chills, shaking, and pallor after IV iron infusion started yesterday afternoon * Spouse present -> affirms (+)shaking chills x several days * Now with one clotted port of TLC - possible source of infection Adenocarcinoma of ascending Colon s/p s/p subtotal colectomy and small bowel resection on 08/14/18 EC fistula==> on TPN ESRD/HD Clotted LUE AVF R brachial DVT Left maxillary sinusitis ? w/ left-sided mastoiditis. -(+)Diarrhea with Imodium onboard DM CAD/PPM R fem filemon (-)MRSA Nares ABX ALLERGIES: None to ABX INVASIVES: PIV CURRENT ABX: DAY # Start Vanco IV + Flagyl + Levaquin ID RECOMMENDATIONS/PLAN: 1. Possible early sepsis w/hypotension due to hypovolemia blood loss or infection? * Patient noted to have chills, shaking, and pallor after IV iron infusion started yesterday afternoon 2. BCx x1 via central line ordered-> Now with one clotted port of TLC - potential source of infection - fibrous sheath 3. Will restart Vanco IV + Flagyl + Levaquin empiric. Consultation Date/Type/Reason Admit Date/Time Aug 02, 2018 at 10:57 Initial Consult Date 08/09/18 Requesting Provider: DULCE GALINDO Date/Time of Note DATE: 09/01/18 TIME: 10:32 Exam/Review of Systems Exam Vitals Vital Signs Date Temp Pulse Resp B/P (MAP) Pulse Ox O2 O2 Flow FiO2 Time Delivery Rate 09/01/18 98.0 90 21 79/46 (57) 100 Nasal 2.0 09:38 Cannula Intake and Output 08/31/18 08/31/18 09/01/18 1515:00 23:00 07:00 IntakeIntake Total 30 ml 1150.0 ml 815 ml OutputOutput Total 300 ml 350 ml 250 ml BalanceBalance -270 ml 800.0 ml 565 ml Results Result Diagram: 09/01/18 0439 09/01/18 0439 Results 24hrs Laboratory Tests Test 08/31/18 12:47 08/31/18 13:55 08/31/18 17:48 08/31/18 21:01 Bedside Glucose 149 119 103 Hemoglobin 7.6 L Hematocrit 25.2 L Test 09/01/18 01:14 09/01/18 04:39 09/01/18 05:10 09/01/18 05:25 Bedside Glucose 88 45 *L 315 H White Blood Count 8.5 # Red Blood Count 2.45 L Hemoglobin 7.1 L Hematocrit 23.6 L Mean Corpuscular 96.3 Volume Mean Corpuscular 29.0 Hemoglobin Mean Corpuscular 30.1 L Hemoglobin Concent Red Cell 16.6 H Distribution Width Platelet Count 123 #L Mean Platelet Volume 12.4 H Immature 1.300 H Granulocytes % Neutrophils % Segmented 41 Neutrophils % (Manual) Band Neutrophils % 27 H (Manual) Lymphocytes % Lymphocytes % 13 L (Manual) Reactive Lymphocytes 4 H % (Manual) Monocytes % Monocytes % (Manual) 2 Eosinophils % Eosinophils % 13 H (Manual) Basophils % Nucleated Red Blood 0.0 Cells % Immature 0.110 H Granulocytes # Neutrophils # Neutrophils # 3.7 (Manual) Band Neutrophils # 2.2 H Lymphocytes (Manual) 1.1 Lymphocytes # Reactive Lymphocytes 0.3 H # Monocytes # Monocytes # (Manual) 0.1 L Eosinophils # Basophils # Nucleated Red Blood Cells # Platelet Estimate DECREASED Giant Platelets 1 H Polychromasia 1+ Hypochromasia 1+ Poikilocytosis 1+ Anisocytosis 1+ Macrocytosis 1+ Target Cells 1+ Ovalocytes 1+ Sodium Level 133 L Potassium Level 3.8 Chloride Level 102 Carbon Dioxide Level 23 Anion Gap 8 Blood Urea Nitrogen 60 H Creatinine 3.84 H Est Glomerular Filtrat Rate mL/min Glucose Level 33 #*L Calcium Level 9.4 Phosphorus Level 3.4 Magnesium Level 1.7 Test 09/01/18 05:27 09/01/18 05:44 09/01/18 08:08 09/01/18 09:55 Bedside Glucose 310 H 221 H 102 82 Medications Medication Current Medications Ondansetron HCl (Zofran Inj) 4 mg Q6H PRN IV NAUSEA/VOMITING Last administered on 08/19/18at 12:55; Admin Dose 4 MG; Start 08/02/18 at 13:00 Diagnostic Test (Pha) (Accu-Chek) 1 ea 02 XX Last administered on 08/31/18at 01:23; Admin Dose 1 EA; Start 08/03/18 at 02:00 Glucose (Glutose) 15 gm Q15M PRN PO DECREASED GLUCOSE; Start 08/02/18 at 13:30 Glucose (Glutose) 22.5 gm Q15M PRN PO DECREASED GLUCOSE; Start 08/02/18 at 13:30 Dextrose (D50w Syringe) 25 ml Q15M PRN IV DECREASED GLUCOSE Last administered on 08/19/18 02:02; Admin Dose 25 ML; Start 08/02/18 at 13:30 Dextrose (D50w Syringe) 50 ml Q15M PRN IV DECREASED GLUCOSE Last administered on 09/01/18 05:22; Admin Dose 50 ML; Start 08/02/18 at 13:30 Glucagon (Glucagen) 1 mg Q15M PRN IM DECREASED GLUCOSE; Start 08/02/18 at 13:30 Glucose (Glutose) 15 gm Q15M PRN BUCCAL DECREASED GLUCOSE; Start 08/02/18 at 13:30 Cholecalciferol (Vitamin D) 1,000 unit DAILY PO Last administered on 09/01/18 08:20; Admin Dose 1,000 UNIT; Start 08/03/18 at 09:00 Folic Acid (Folic Acid) 1 mg DAILY PO Last administered on 09/01/18 08:20; Ad min Dose 1 MG; Start 08/03/18 at 09:00 Midodrine (Proamatine) 5 mg ON DIALYSIS DAYS PO Last administered on 08/30/18 08:51; Admin Dose 5 MG; Start 08/02/18 at 18:00 Gabapentin (Neurontin) 100 mg DAILY PO Last administered on 08/13/18 09:07; Admin Dose 100 MG; Start 08/07/18 at 11:30; Status Hold Phenol (Cepastat Lozenge) 1 lozenge Q1H PRN MT COUGH Last administered on 08/08/18 02:34; Admin Dose 1 LOZENGE; Start 08/07/18 at 23:00 Heparin Sodium (Porcine) (Heparin (1000 Units/ml)) 6,100 unit AFTER DIALYSIS CATHETER Last administered on 08/30/18 12:51; Admin Dose 6,100 UNIT; Start 08/16/18 at 22:30 Acetaminophen (Tylenol Tab) 650 mg Q6H PRN PO MILD PAIN(1-3)OR ELEVATED TEMP Last administered on 09/01/18 03:40; Admin Dose 325 MG; Start 08/18/18 at 05:30 Levothyroxine Sodium (Synthroid) 50 mcg DAILY@06 PO Last administered on 09/01/18 05:30; Admin Dose 50 MCG; Start 08/20/18 at 06:00 Famotidine (Pepcid) 20 mg DAILY PO Last administered on 09/01/18 08:20; Admin Dose 20 MG; Start 08/21/18 at 09:00 Apixaban (Eliquis) 2.5 mg BID PO Last administered on 08/27/18 21:24; Admin Dose 2.5 MG; Start 08/21/18 at 09:30; Status Hold Diagnostic Test (Pha) (Accu-Chek) 1 ea Q4 XX Last administered on 09/01/18 09:56; Admin Dose 1 EA; Start 08/23/18 at 21:00 Fat Emulsion Intravenous 250 ml @ 21 mls/hr DAILY IV Last administered on 09/01/18 08:21; Admin Dose 21 MLS/HR; Start 08/24/18 at 14:00 Total Parenteral Nutrition 1,000 ml @ 65 mls/hr [id number] IV Last administered on 08/31/18 17:32; Admin Dose 65 MLS/HR; Start 08/24/18 at 16:00 Albumin Human 100 ml @ 100 mls/hr WITH DIALYSIS PRN IV SBP <90 DURING DIALYSIS Last administered on 08/30/18 10:41; Admin Dose 100 MLS/HR; Start 08/26/18 at 08:30 Insulin Aspart (Novolog Insulin Pen) NOVOLOG *MODERATE* ALGORITHM Q4 SC Last administered on 08/31/18 13:30; Admin Dose 2 UNIT; Start 08/27/18 at 13:00 Loratadine (Claritin) 10 mg DAILY NGT Last administered on 09/01/18 08:21; Admin Dose 10 MG; Start 08/29/18 at 09:00; Stop 09/11/18 at 12:00 Fluticasone Propionate (Flonase 0.05% Nasal) 1 spray BID NASAL Last administered on 09/01/18 08:21; Admin Dose 1 SPRAY; Start 08/28/18 at 21:00; Stop 08/26/19 at 22:00 Albuterol/ Ipratropium (Duoneb) 3 ml Q6HWA RESP THERAPY HHN Last administered on 3/17/19at 08:50; Admin Dose 3 ML; Start 08/28/18 at 20:00 Albuterol/ Ipratropium (Duoneb) 3 ml Q2H RESP THERAPY PRN HHN shortness of breath; Start 08/28/18 at 19:00 Loperamide HCl (Imodium Cap) 4 mg BID PO Last administered on 09/01/18 08:20; Admin Dose 4 MG; Start 08/31/18 at 21:00 Ferrous Sulfate (Ferrous Sulfate (Ec)) 325 mg BID PO Last administered on 09/01/18at 08:20; Admin Dose 325 MG; Start 08/31/18 at 21:00 Insulin Glargine (Lantus) 30 units BID@0800,2000 SC Last administered on 09/01/18 08:27; Admin Dose 30 UNITS; Start 09/01/18 at 08:00 Norepinephrine 250 ml @ 1.875 mls/ hr TITRATE IV ; Start 09/01/18 at 11:00 GABRIEL CARDOZO NP Sep 01, 2018 11:05
[2018-09-01] MEDS: TPN 1,000 ML IV SCH (11:13)
--- NOTE | 2018-09-01 11:20 | CONS ---
Assessment/Plan Assessment/Plan Hospital Course 78 M c/ ESRD and other comorbidities, who initially presented 1 month ago for management of generalized weakness, difficulty and other complaints. He is noted have become progressively altered over the course of days, for which neurology is consulted... The clinical picture is most consistent with an acute and multifactorial toxic- metabolic encephalopathy.. Seizure/stroke are less likely. HCT is unrevealing (MRI brain is contraindicated 2/2 PPM) CXR is notable for pulmonary vascular congestion, and right basilar opacification.. TSH is elevated; FT4 is, though, wnl Ammonia is wnl P: Willis as able Limit sedating medications where possible Other management per primary Will sign off for now; please call w/ ?s Consultation Date/Type/Reason Admit Date/Time Aug 02, 2018 at 10:57 Type of Consult Neurology Reason for Consultation ams Requesting Provider: DULCE GALINDO Date/Time of Note DATE: 09/01/18 TIME: 11:19 24 HR Interval Summary Free Text/Dictation Tx to ICU Exam Vital Signs Vitals Vital Signs Date Temp Pulse Resp B/P (MAP) Pulse Ox O2 O2 Flow FiO2 Time Delivery Rate 09/01/18 90 15 87/45 (59) 100 Nasal 2.0 10:30 Cannula 09/01/18 98.0 09:38 Intake and Output 08/31/18 08/31/18 09/01/18 1515:00 23:00 07:00 IntakeIntake Total 30 ml 1150.0 ml 815 ml OutputOutput Total 300 ml 350 ml 250 ml BalanceBalance -270 ml 800.0 ml 565 ml Exam PE: Gen Appearance: No Apparent Distress HEENT: Normocephalic Cardiovascular: Regular rate Abdomen: Soft Extremities: Dry, edematous.. NE: The patient was awake, alert, and sparsely verbal.. oriented to person only.. Cranial nerve examination was limited by mental status. Pupils were equal and reactive to light. There was no afferent pupillary defect. Funduscopic examination was limited. Face was grossly symmetric, w/ present corneal and coug h reflexes. Tone was normal. Muscle bulk was normal. I did not see fasciculations. The patient moved his limbs to command, weakly, grossly symmetrically.. Coordination and gait testing was limited by mental status. Arm and leg reflexes were symmetric. Lee's sign was absent. Plantar responses were flexor. KILO BENTON Sep 01, 2018 11:20
[2018-09-01] MEDS ORDERED: VANCOMYCIN IV PER PHARMACY XX SCH (11:30)
[2018-09-01] MEDS: LEVOFLOXACIN 250MG/D5W (PMX) 50 ML IVPB SCH (12:21)
--- NOTE | 2018-09-01 12:28 | PN ---
Date/Time of Note Date/Time of Note DATE: 09/01/18 TIME: 12:21 Objective Vitals Vital Signs Date Temp Pulse Resp B/P (MAP) Pulse Ox O2 O2 Flow FiO2 Time Delivery Rate 09/01/18 90 15 87/45 (59) 100 Nasal 2.0 10:30 Cannula 09/01/18 98.0 09:38 Intake and Output 08/31/18 08/31/18 09/01/18 1414:59 22:59 06:59 IntakeIntake Total 30 ml 1150.0 ml 815 ml OutputOutput Total 300 ml 350 ml 250 ml BalanceBalance -270 ml 800.0 ml 565 ml Results Result Diagram: 09/01/18 1019 09/01/18 0439 Medications Medications Current Medications Ondansetron HCl (Zofran Inj) 4 mg Q6H PRN IV NAUSEA/VOMITING Last administered on 08/19/18at 12:55; Admin Dose 4 MG; Start 08/02/18 at 13:00 Diagnostic Test (Pha) (Accu-Chek) 1 ea 02 XX Last administered on 08/31/18at 01:23; Admin Dose 1 EA; Start 08/03/18 at 02:00 Glucose (Glutose) 15 gm Q15M PRN PO DECREASED GLUCOSE; Start 08/02/18 at 13:30 Glucose (Glutose) 22.5 gm Q15M PRN PO DECREASED GLUCOSE; Start 08/02/18 at 13:30 Dextrose (D50w Syringe) 25 ml Q15M PRN IV DECREASED GLUCOSE Last administered on 08/19/18at 02:02; Admin Dose 25 ML; Start 08/02/18 at 13:30 Dextrose (D50w Syringe) 50 ml Q15M PRN IV DECREASED GLUCOSE Last administered on 09/01/18at 05:22; Admin Dose 50 ML; Start 08/02/18 at 13:30 Glucagon (Glucagen) 1 mg Q15M PRN IM DECREASED GLUCOSE; Start 08/02/18 at 13:30 Glucose (Glutose) 15 gm Q15M PRN BUCCAL DECREASED GLUCOSE; Start 08/02/18 at 13:30 Cholecalciferol (Vitamin D) 1,000 unit DAILY PO Last administered on 09/01/18at 08:20; Admin Dose 1,000 UNIT; Start 08/03/18 at 09:00 Folic Acid (Folic Acid) 1 mg DAILY PO Last administered on 09/01/18 08:20; Admin Dose 1 MG; Start 08/03/18 at 09:00 Midodrine (Proamatine) 5 mg ON DIALYSIS DAYS PO Last administered on 08/30/18 08:51; Admin Dose 5 MG; Start 08/02/18 at 18:00 Gabapentin (Neurontin) 100 mg DAILY PO Last administered on 08/13/18 09:07; Admin Dose 100 MG; Start 08/07/18 at 11:30; Status Hold Phenol (Cepastat Lozenge) 1 lozenge Q1H PRN MT COUGH Last administered on 08/08/18 02:34; Admin Dose 1 LOZENGE; Start 08/07/18 at 23:00 Heparin Sodium (Porcine) (Heparin (1000 Units/ml)) 6,100 unit AFTER DIALYSIS CATHETER Last administered on 08/30/18 12:51; Admin Dose 6,100 UNIT; Start 08/16/18 at 22:30 Acetaminophen (Tylenol Tab) 650 mg Q6H PRN PO MILD PAIN(1-3)OR ELEVATED TEMP [place] [facility] administered on 09/01/18 03:40; Admin Dose 325 MG; Start 08/18/18 at 05:30 Levothyroxine Sodium (Synthroid) 50 mcg DAILY@06 PO Last administered on 09/01/18 05:30; Admin Dose 50 MCG; Start 08/20/18 at 06:00 Famotidine (Pepcid) 20 mg DAILY PO Last administered on 09/01/18 08:20; Admin Dose 20 MG; Start 08/21/18 at 09:00 Apixaban (Eliquis) 2.5 mg BID PO Last administered on 08/27/18 21:24; Admin Dose 2.5 MG; Start 08/21/18 at 09:30; Status Hold Diagnostic Test (Pha) (Accu-Chek) 1 ea Q4 XX Last administered on 09/01/18 09:56; Admin Dose 1 EA; Start 08/23/18 at 21:00 Fat Emulsion Intravenous 250 ml @ 21 mls/hr DAILY IV Last administered on 09/01/18 08:21; Admin Dose 21 MLS/HR; Start 08/24/18 at 14:00 Total Parenteral Nutrition 1,000 ml @ 65 mls/hr [id number] IV Last administered on 09/01/18 11:13; Admin Dose 65 MLS/HR; Start 08/24/18 at 16:00 Albumin Human 100 ml @ 100 mls/hr WITH DIALYSIS PRN IV SBP <90 DURING DIALYSIS Last administered on 08/30/18 10:41; Admin Dose 100 MLS/HR; Start 08/26/18 at 08:30 Insulin Aspart (Novolog Insulin Pen) NOVOLOG *MODERATE* ALGORITHM Q4 SC Last administered on 08/31/18 13:30; Admin Dose 2 UNIT; Start 08/27/18 at 13:00 Loratadine (Claritin) 10 mg DAILY NGT Last administered on 09/01/18 08:21; Admin Dose 10 MG; Start 08/29/18 at 09:00; Stop 09/11/18 at 12:00 Fluticasone Propionate (Flonase 0.05% Nasal) 1 spray BID NASAL Last administ ered on 09/01/18 08:21; Admin Dose 1 SPRAY; Start 08/28/18 at 21:00; Stop 08/26/19 at 22:00 Albuterol/ Ipratropium (Duoneb) 3 ml Q6HWA RESP THERAPY HHN Last administered on 09/01/18 08:50; Admin Dose 3 ML; Start 08/28/18 at 20:00 Albuterol/ Ipratropium (Duoneb) 3 ml Q2H RESP THERAPY PRN HHN shortness of breath; Start 08/28/18 at 19:00 Loperamide HCl (Imodium Cap) 4 mg BID PO Last administered on 09/01/18 08:20; Admin Dose 4 MG; Start 08/31/18 at 21:00 Ferrous Sulfate (Ferrous Sulfate (Ec)) 325 mg BID PO Last administered on 09/01/18 08:20; Admin Dose 325 MG; Start 08/31/18 at 21:00 Norepinephrine 250 ml @ 1.875 mls/ hr TITRATE IV ; Start 09/01/18 at 11:00 Vancomycin HCl (Vanco Iv Per Pharmacy) VANCOMYCIN PER PHARMACY PER PROTOCOL XX ; Start 09/01/18 at 11:30 Metronidazole 100 ml @ 100 mls/hr Q8 IVPB ; Start 09/01/18 at 14:00 Levofloxacin/ Dextrose 50 ml @ 50 mls/hr Q48H IVPB ; Start 09/01/18 at 12:00 Vancomycin HCl 1.5 gm/Sodium Chloride 250 ml @ 83.333 mls/ hr ONCE@1300 IVPB ; Start 09/01/18 at 13:00; Stop 09/01/18 at 21:00 Insulin Glargine (Lantus) 25 units BID@0800,2000 SC ; Start 09/01/18 at 20:00; Status UNV VTE Prophylaxis Risk score (from Ns)>0 risk: 5 SCD applied (from Ns): Yes Lines/Catheters IV Catheter Type: Granger in Place: Yes Cont'd granger catheter reason: terminal illness/intractable pain Assessment/Plan Hospital Course Subjective Patient had episode of hypoglycemia and hypotension in the morning, upgraded to ICU Subjective Physical exam General: Patient is laying in bed and answers questions appropriately intermittently Mentation: Patient is alert and oriented to self Head: Normocephalic atraumatic Eyes: EOMI, pupils reactive to light Neck: Supple, nontender, midline Respiratory: Clear to auscultation bilaterally Cardiovascular: regular rate, no obvious murmurs Gastrointestinal: Moderately tender to palpation, bowel sounds heard. 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 patient kept NPO except meds and on TPN at this time - Dr. Meneses/Jimbo on board and appreciate consultation - GI on board and appreciate recommendations. 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 Will need 36 months of adjuvant therapy for GIST tumor once abdominal wounds healed but no further intervention for adenocarcinoma - Cardiology consultation appreciated - ID consulted for possible prophylaxis abx End-stage renal disease on HD - Nephrology on board for HD management and appreciate recommendations - clogged fistula catheter (HeRO), consulted Dr. Coelho for recs as he is patient's vascular surgeon, recommended Horacio for now until we can fully anticoagulate. Follow as outpatient. On Eliquis and tolerating (but currently held due to hgb dropping) Anemia -Likely secondary to above chronic anemia secondary to end-stage renal disease -Monitor hemoglobin levels, attempted to restart Eliquis, however due to continued mild decrease in hemoglobin we will once again hold. -Continues to have very small decrease every day, after discussing with consulting physicians may be secondary to blood draws. Also patient has not been able to be dialyzed sufficiently due to hypotension which may also be leading to volume overload causing some hemodilution, no source of GI bleed that is apparent as colostomy bag does not appear red or black, FOBT done on colostomy bag which certainly show positive due to recent surgery so will not be very helpful. Surgery does not believe that this is a complication of surgery,. -We will transfuse as needed for hemoglobin less than 7.5 Hypoglycemia -Patient is very difficult to control blood sugars, will need to control blood sugars to ensure adequate healing of surgical site and fistula, but appears to have had too much Lantus, will reduce Lantus dose once again and work her way ba ck up. Questionable shock -Empiric IV antibiotics restarted per infectious disease -Patient is always mildly hypotensive, however a bit more today, responded well to albumin, however this will be temporary, transfer to ICU, pressors as needed to keep mean arterial pressure above 65 Encephalopathy -Progressively worsening for the past week, today to encephalopathic to even take oral medications, CT head showing mastoiditis and some sinus issues but no CVA -MRI unable to be done due to pacemaker -Neurology consulted, Dr. Taylor -Likely toxic metabolic encephalopathy per neurology, possibly also a component of hospital delirium, patient still able to follow commands GI bleed 2/2 to above mass - resolved? Arm swelling, right brachial DVT, thrombosis of left cephalic vein - Ultrasound showed right brachial DVT as well as thrombosis of the left cephalic vein. Patient's midline on his right arm is the likely culprit for the DVT on his right brachial vein. - dialysis catheter in left arm clotted for now, no Cathflo due to recent surgery per vascular surgery - monitor, warm compresses. - Patient is likely an hypercoagulable state due to his carcinoma and started on Eliquis, currently held due to low hemoglobin Diabetes - A1c noted - counseled about importance of diet choices and glucose control - Continue Lantus and ISS. 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 Output decreasing - Continue on TPN at this time hgb continues to decrease-Hold Eliquis ,continue to monitor hemoglobin DULCE GALINDO Sep 01, 2018 12:28
[2018-09-01] MEDS: NORepinephrine 8MG/250 ML (PMX 250 ML IV SCH (12:39)
[2018-09-01] MEDS ORDERED: VANCOMYCIN HCL 1.5 GM in SOD CHLORIDE 0.9% 250 ML IVPB SCH (13:00)
[2018-09-01] MEDS: metroNIDAZOLE 500 MG/NS (PMX) 100 ML IVPB SCH ×2 (14:27→21:36)
[2018-09-01] MEDS ORDERED: MAGNESIUM SULFATE 1 GM/D5W 100 ML IVPB SCH (14:30)
--- NOTE | 2018-09-01 16:07 | CONS ---
Assessment/Plan Assessment/Plan Assessment/Plan (Daily) #Adenocarcinoma of ascending Colon ca -final pathology report reveals 2 separate masses with different pathology results. -the ascending colon mass is consistent with a Moderately-differentiated adenocarcinoma, invading through the muscularis propria, with all 0/18 negative for disease, 3.6 x 2.8 x 1.1 cm. -the splenic flexture mass is 10.5 x 9.0 x 7.0 cm.and consistent with a high grade GIST tumor -CT does not reveal evidence of distant mets -in terms of the adenocarcinoma, pt does not need adjuvant chemotherapy given this was a stage IIA tumor. 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 Dw staff Consultation Date/Type/Reason Admit Date/Time Aug 02, 2018 at 10:57 Initial Consult Date 08/09/18 Type of Consult oncology Reason for Consultation colon cancer Requesting Provider: DULCE GALINDO Date/Time of Note DATE: 09/01/18 TIME: 16:07 24 HR Interval Summary Free Text/Dictation - Patient was transferred to ICU 2/2 hypotension -resting;responsive dw staff Constitutional: requiring O2 Detailed Summary Respiratory: no complaints Cardiovascular: no complaints Gastrointestinal: no complaints Exam/Review of Systems Exam Vitals Vital Signs Date Temp Pulse Resp B/P (MAP) Pulse Ox O2 O2 Flow FiO2 Time Delivery Rate 09/01/18 87 17 97 Nasal 3.0 14:38 Cannula 09/01/18 99/33 (55) 13:45 09/01/18 98.0 12:00 Intake and Output 08/31/18 08/31/18 09/01/18 1515:00 23:00 07:00 IntakeIntake Total 30 ml 1150.0 ml 815 ml OutputOutput Total 300 ml 350 ml 250 ml BalanceBalance -270 ml 800.0 ml 565 ml Constitutional: alert, well developed Psych: nl mood/affect Eyes: nl lids, nl sclera ENMT: nl external ears & nose Neck: non-tender Respiratory: diminished breath sounds (at bases bilaterally) Cardiovascular: nl pulses, other (s1s2) Gastrointestinal: soft Musculoskeletal: muscle weakness Extremities: edema Neurological: lethargic Lymph: nontender Results Result Diagram: 09/01/18 1019 09/01/18 1205 Results 24hrs Laboratory Tests Test 08/31/18 17:48 08/31/18 21:01 09/01/18 01:14 09/01/18 04:39 Bedside Glucose 119 103 88 White Blood Count 8.5 # Red Blood Count 2.45 L Hemoglobin 7.1 L Hematocrit 23.6 L Mean Corpuscular 96.3 Volume Mean Corpuscular 29.0 Hemoglobin Mean Corpuscular 30.1 L Hemoglobin Concen t Red Cell 16.6 H Distribution Width Platelet Count 123 #L Mean Platelet 12.4 H Volume Immature 1.300 H Granulocytes % Neutrophils % Segmented 41 Neutrophils % (Manual) Band Neutrophils 27 H % (Manual) Lymphocytes % Lymphocytes % 13 L (Manual) Reactive 4 H Lymphocytes % (Manual) Monocytes % Monocytes % 2 (Manual) Eosinophils % Eosinophils % 13 H (Manual) Basophils % Nucleated Red 0.0 Blood Cells % Immature 0.110 H Granulocytes # Neutrophils # Neutrophils # 3.7 (Manual) Band Neutrophils 2.2 H # Lymphocytes 1.1 (Manual) Lymphocytes # Reactive 0.3 H Lymphocytes # Monocytes # Monocytes # 0.1 L (Manual) Eosinophils # Basophils # Nucleated Red Blood Cells # Platelet Estimate DECREASED Giant Platelets 1 H Polychromasia 1+ Hypochromasia 1+ Poikilocytosis 1+ Anisocytosis 1+ Macrocytosis 1+ Target Cells 1+ Ovalocytes 1+ Sodium Level 133 L Potassium Level 3.8 Chloride Level 102 Carbon Dioxide 23 Level Anion Gap 8 Blood Urea 60 H Nitrogen Creatinine 3.84 H Est Glomerular Filtrat Rate mL/min Glucose Level 33 #*L Calcium Level 9.4 Phosphorus Level 3.4 Magnesium Level 1.7 Test 09/01/18 05:10 09/01/18 05:25 09/01/18 05:27 09/01/18 05:44 Bedside Glucose 45 *L 315 H 310 H 221 H Test 09/01/18 08:08 09/01/18 09:55 09/01/18 10:19 09/01/18 12:01 Bedside Glucose 102 82 35 *L Hemoglobin 7.0 L Hematocrit 22.5 L Test 09/01/18 12:05 09/01/18 12:08 09/01/18 12:23 09/01/18 13:00 Glucose Level 30 *L Bedside Glucose 32 *L 142 Blood Gas Blood arterial Specimen Source Arterial Blood 09/01/2018 3:05:0 Date Drawn 3 PM Arterial Blood pH 7.355 (Temp corrected) Arterial Blood 34.9 L pCO2 (Temp correct) Arterial Blood 129.5 H pO2 (Temp corrected) Arterial Blood 19.1 L HCO3 Arterial Blood -5.9 L Base Excess Arterial Blood 98.1 Oxygen Saturation Robbie Test ACCEPTAB Arterial Blood Right Brachial Gas Puncture Site Arterial 0.8 Blood Carboxyhemo globin Arterial Blood 0.1 Methemoglobin Blood Gas A-a O2 43.4 H Differential Oxyhemoglobin 97.2 Percent Blood Gas 37.0 Temperature Blood Gas NASAL CANNULA Modality FiO2 30.0 Blood Gas MDA Notified Whom Blood Gas 09/01/2018 3:10:4 Notified Time 1 PM Test 09/01/18 13:22 09/01/18 14:29 09/01/18 15:29 Bedside Glucose 99 94 108 Medications Medication Current Medications Ondansetron HCl (Zofran Inj) 4 mg Q6H PRN IV NAUSEA/VOMITING Last administered on 08/19/18at 12:55; Admin Dose 4 MG; Start 08/02/18 at 13:00 Diagnostic Test (Pha) (Accu-Chek) 1 ea 02 XX Last administered on 08/31/18at 01:23; Admin Dose 1 EA; Start 08/03/18 at 02:00 Glucose (Glutose) 15 gm Q15M PRN PO DECREASED GLUCOSE; Start 08/02/18 at 13:30 Glucose (Glutose) 22.5 gm Q15M PRN PO DECREASED GLUCOSE; Start 08/02/18 at 13:30 Dextrose (D50w Syringe) 25 ml Q15M PRN IV DECREASED GLUCOSE Last administered on 08/19/18 02:02; Admin Dose 25 ML; Start 08/02/18 at 13:30 Dextrose (D50w Syringe) 50 ml Q15M PRN IV DECREASED GLUCOSE Last administered on 09/01/18 12:13; Admin Dose 50 ML; Start 08/02/18 at 13:30 Glucagon (Glucagen) 1 mg Q15M PRN IM DECREASED GLUCOSE; Start 08/02/18 at 13:30 Glucose (Glutose) 15 gm Q15M PRN BUCCAL DECREASED GLUCOSE; Start 08/02/18 at 13:30 Cholecalciferol (Vitamin D) 1,000 unit DAILY PO Last administered on 09/01/18 08:20; Admin Dose 1,000 UNIT; Start 08/03/18 at 09:00 Folic Acid (Folic Acid) 1 mg DAILY PO Last administered on 09/01/18 08:20; Admin Dose 1 MG; Start 08/03/18 at 09:00 Midodrine (Proamatine) 5 mg ON DIALYSIS DAYS PO Last administered on 08/30/18 08:51; Admin Dose 5 MG; Start 08/02/18 at 18:00 Gabapentin (Neurontin) 100 mg DAILY PO Last administered on 08/13/18 09:07; Admin Dose 100 MG; Start 08/07/18 at 11:30; Status Hold Phenol (Cepastat Lozenge) 1 lozenge Q1H PRN MT COUGH Last administered on 08/08/18 02:34; Admin Dose 1 LOZENGE; Start 08/07/18 at 23:00 Heparin Sodium (Porcine) (Heparin (1000 Units/ml)) 6,100 unit AFTER DIALYSIS CATHETER Last administered on 08/30/18 12:51; Admin Dose 6,100 UNIT; Start 08/16/18 at 22:30 Acetaminophen (Tylenol Tab) 650 mg Q6H PRN PO MILD PAIN(1-3)OR ELEVATED TEMP Last administered on 09/01/18 03:40; Admin Dose 325 MG; Start 08/18/18 at 05:30 Levothyroxine Sodium (Synthroid) 50 mcg DAILY@06 PO Last administered on 09/01/18 05:30; Admin Dose 50 MCG; Start 08/20/18 at 06:00 Famotidine (Pepcid) 20 mg DAILY PO Last administered on 09/01/18 08:20; Admin Dose 20 MG; Start 08/21/18 at 09:00 Apixaban (Eliquis) 2.5 mg BID PO Last administered on 08/27/18 21:24; Admin Dose 2.5 MG; Start 08/21/18 at 09:30; Status Hold Diagnostic Test (Pha) (Accu-Chek) 1 ea Q4 XX Last administered on 09/01/18 09:56; Admin Dose 1 EA; Start 08/23/18 at 21:00 Fat Emulsion Intravenous 250 ml @ 21 mls/hr DAILY IV Last administered on 09/01/18 08:21; Admin Dose 21 MLS/HR; Start 08/24/18 at 14:00 Total Parenteral Nutrition 1,000 ml @ 65 mls/hr [id number] IV Last administered on 09/01/18 11:13; Admin Dose 65 MLS/HR; Start 08/24/18 at 16:00 Albumin Human 100 ml @ 100 mls/hr WITH DIALYSIS PRN IV SBP <90 DURING DIALYSIS Last administered on 08/30/18 10:41; Admin Dose 100 MLS/HR; Start 08/26/18 at 08:30 Insulin Aspart (Novolog Insulin Pen) NOVOLOG *MODERATE* ALGORITHM Q4 SC Last administered on 08/31/18 13:30; Admin Dose 2 UNIT; Start 08/27/18 at 13:00 Loratadine (Claritin) 10 mg DAILY NGT Last administered on 09/01/18 08:21; Admin Dose 10 MG; Start 08/29/18 at 09:00; Stop 09/11/18 at 12:00 Fluticasone Propionate (Flonase 0.05% Nasal) 1 spray BID NASAL Last administered on 09/01/18 08:21; Admin Dose 1 SPRAY; Start 08/28/18 at 21:00; Stop 08/26/19 at 22:00 Albuterol/ Ipratropium (Duoneb) 3 ml Q6HWA RESP THERAPY HHN Last administered on 09/01/18 14:36; Admin Dose 3 ML; Start 08/28/18 at 20:00 Albuterol/ Ipratropium (Duoneb) 3 ml Q2H RESP THERAPY PRN HHN shortness of breath; Start 08/28/18 at 19:00 Loperamide HCl (Imodium Cap) 4 mg BID PO Last administered on 09/01/18at 08:20; Admin Dose 4 MG; Start 08/31/18 at 21:00 Ferrous Sulfate (Ferrous Sulfate (Ec)) 325 mg BID PO Last administered on 09/01/18at 08:20; Admin Dose 325 MG; Start 08/31/18 at 21:00 Norepinephrine 250 ml @ 1.875 mls/ hr TITRATE IV Last administered on 09/01/18at 12:39; Admin Dose 3.75 MLS/HR; Start 09/01/18 at 11:00 Vancomycin HCl (Vanco Iv Per Pharmacy) VANCOMYCIN PER PHARMACY PER PROTOCOL XX ; Start 09/01/18 at 11:30 Metronidazole 100 ml @ 100 mls/hr Q8 IVPB Last administered on 09/01/18at 14:27; Admin Dose 100 MLS/HR; Start 09/01/18 at 14:00 Levofloxacin/ Dextrose 50 ml @ 50 mls/hr Q48H IVPB Last administered on 09/01/18at 12:21; Admin Dose 50 MLS/HR; Start 09/01/18 at 12:00 Vancomycin HCl 1.5 gm/Sodium Chloride 250 ml @ 83.333 mls/ hr ONCE@1300 IVPB Last administered on 09/01/18at 12:46; Admin Dose 83.333 MLS/HR; Start 09/01/18 at 13:00; Stop 09/01/18 at 21:00 Insulin Glargine (Lantus) 25 units BID@0800,2000 SC ; Start 09/01/18 at 20:00 SHAMIR FRANKS Sep 01, 2018 16:07
--- NOTE | 2018-09-01 18:23 | CONS ---
Assessment/Plan Assessment/Plan Hospital Course (Demo Recall) 1 End-stage renal disease, on hemodialysis, mwf with mild CHF 2. 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 Hypotension. On Midodrine at home 4. History of congestive heart failure.1 End-stage renal disease, on hemodialysis,mwf with mild CHF 5. Hypercholesterolemia. 6. Hx of total hip replacement. 7. leucocytosis, off pressor and trending down leukocytosis 8. Hypoglycemia. 9. Macrocytic hypochromic Anemia mixed etiology, recent blood loss and 2/2 kidney disease 10. 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% 12 Clotted left arm AV graft plan hd prbc w hd Consultation Date/Type/Reason Admit Date/Time Aug 02, 2018 at 10:57 Initial Consult Date 08/03/18 Type of Consult RENAL F/U Requesting Provider: DULCE GALINDO Date/Time of Note DATE: 09/01/18 TIME: 18:21 24 HR Interval Summary Constitutional: no complaints, other (pt tranfered to icu for low bp) Exam/Review of Systems Exam Vitals Vital Signs Date Temp Pulse Resp B/P (MAP) Pulse Ox O2 O2 Flow FiO2 Time Delivery Rate 09/01/18 91 17 106/36 100 Nasal 18:00 (59) Cannula 09/01/18 97.0 17:00 09/01/18 3.0 16:00 Intake and Output 08/31/18 08/31/18 09/01/18 1515:00 23:00 07:00 IntakeIntake Total 30 ml 1150.0 ml 815 ml OutputOutput Total 300 ml 350 ml 250 ml BalanceBalance -270 ml 800.0 ml 565 ml Neck: supple Respiratory: clear to auscultation Cardiovascular: regular rate and rhythm, edema Extremities: other (++) Results Result Diagram: 09/01/18 1019 09/01/18 1205 Results 24hrs Laboratory Tests Test 08/31/18 21:01 09/01/18 01:14 09/01/18 04:39 09/01/18 05:10 Bedside Glucose 103 88 45 *L White Blood Count 8.5 # Red Blood Count 2.45 L Hemoglobin 7.1 L Hematocrit 23.6 L Mean Corpuscular 96.3 Volume Mean Corpuscular 29.0 Hemoglobin Mean Corpuscular 30.1 L Hemoglobin Concen t Red Cell 16.6 H Distribution Width Platelet Count 123 #L Mean Platelet 12.4 H Volume Immature 1.300 H Granulocytes % Neutrophils % Segmented 41 Neutrophils % (Manual) Band Neutrophils 27 H % (Manual) Lymphocytes % Lymphocytes % 13 L (Manual) Reactive 4 H Lymphocytes % (Manual) Monocytes % Monocytes % 2 (Manual) Eosinophils % Eosinophils % 13 H (Manual) Basophils % Nucleated Red 0.0 Blood Cells % Immature 0.110 H Granulocytes # Neutrophils # Neutrophils # 3.7 (Manual) Band Neutrophils 2.2 H # Lymphocytes 1.1 (Manual) Lymphocytes # Reactive 0.3 H Lymphocytes # Monocytes # Monocytes # 0.1 L (Manual) Eosinophils # Basophils # Nucleated Red Blood Cells # Platelet Estimate DECREASED Giant Platelets 1 H Polychromasia 1+ Hypochromasia 1+ Poikilocytosis 1+ Anisocytosis 1+ Macrocytosis 1+ Target Cells 1+ Ovalocytes 1+ Sodium Level 133 L Potassium Level 3.8 Chloride Level 102 Carbon Dioxide 23 Level Anion Gap 8 Blood Urea 60 H Nitrogen Creatinine 3.84 H Est Glomerular Filtrat Rate mL/min Glucose Level 33 #*L Calcium Level 9.4 Phosphorus Level 3.4 Magnesium Level 1.7 Test 09/01/18 05:25 09/01/18 05:27 09/01/18 05:44 09/01/18 08:08 Bedside Glucose 315 H 310 H 221 H 102 Test 09/01/18 09:55 09/01/18 10:19 09/01/18 12:01 09/01/18 12:05 Bedside Glucose 82 35 *L Hemoglobin 7.0 L Hematocrit 22.5 L Glucose Level 30 *L Test 09/01/18 12:08 09/01/18 12:23 09/01/18 13:00 09/01/18 13:22 Bedside Glucose 32 *L 142 99 Blood Gas Blood arterial Specimen Source Arterial Blood 09/01/2018 3:05:0 Date Drawn 3 PM Arterial Blood pH 7.355 (Temp corrected) Arterial Blood 34.9 L pCO2 (Temp correct) Arterial Blood 129.5 H pO2 (Temp corrected) Arterial Blood 19.1 L HCO3 Arterial Blood -5.9 L Base Excess Arterial Blood 98.1 Oxygen Saturation Robbie Test ACCEPTAB Arterial Blood Right Brachial Gas Puncture Site Arterial 0.8 Blood Carboxyhemo globin Arterial Blood 0.1 Methemoglobin Blood Gas A-a O2 43.4 H Differential Oxyhemoglobin 97.2 Percent Blood Gas 37.0 Temperature Blood Gas NASAL CANNULA Modality FiO2 30.0 Blood Gas MDA Notified Whom Blood Gas 09/01/2018 3:10:4 Notified Time 1 PM Test 09/01/18 14:29 09/01/18 15:29 09/01/18 16:38 09/01/18 17:33 Bedside Glucose 94 108 75 73 Medications Medication Current Medications Ondansetron HCl (Zofran Inj) 4 mg Q6H PRN IV NAUSEA/VOMITING Last administered on 08/19/18 12:55; Admin Dose 4 MG; Start 08/02/18 at 13:00 Diagnostic Test (Pha) (Accu-Chek) 1 ea 02 XX Last administered on 08/31/18at 01:23; Admin Dose 1 EA; Start 08/03/18 at 02:00 Glucose (Glutose) 15 gm Q15M PRN PO DECREASED GLUCOSE; Start 08/02/18 at 13:30 Glucose (Glutose) 22.5 gm Q15M PRN PO DECREASED GLUCOSE; Start 08/02/18 at 13:30 Dextrose (D50w Syringe) 25 ml Q15M PRN IV DECREASED GLUCOSE Last administered on 08/19/18at 02:02; Admin Dose 25 ML; Start 08/02/18 at 13:30 Dextrose (D50w Syringe) 50 ml Q15M PRN IV DECREASED GLUCOSE Last administered on 09/01/18at 12:13; Admin Dose 50 ML; Start 08/02/18 at 13:30 Glucagon (Glucagen) 1 mg Q15M PRN IM DECREASED GLUCOSE; Start 08/02/18 at 13:30 Glucose (Glutose) 15 gm Q15M PRN BUCCAL DECREASED GLUCOSE; Start 08/02/18 at 13:30 Cholecalciferol (Vitamin D) 1,000 unit DAILY PO Last administered on 09/01/18at 08:20; Admin Dose 1,000 UNIT; Start 08/03/18 at 09:00 Folic Acid (Folic Acid) 1 mg DAILY PO Last administered on 09/01/18at 08:20; Admin Dose 1 MG; Start 08/03/18 at 09:00 Midodrine (Proamatine) 5 mg ON DIALYSIS DAYS PO Last administered on 08/30/18 08:51; Admin Dose 5 MG; Start 08/02/18 at 18:00 Gabapentin (Neurontin) 100 mg DAILY PO Last administered on 08/13/18 09:07; Admin Dose 100 MG; Start 08/07/18 at 11:30; Status Hold Phenol (Cepastat Lozenge) 1 lozenge Q1H PRN MT COUGH Last administered on 08/08/18 02:34; Admin Dose 1 LOZENGE; Start 08/07/18 at 23:00 Heparin Sodium (Porcine) (Heparin (1000 Units/ml)) 6,100 unit AFTER DIALYSIS CATHETER Last administered on 08/30/18 12:51; Admin Dose 6,100 UNIT; Start 08/16/18 at 22:30 Acetaminophen (Tylenol Tab) 650 mg Q6H PRN PO MILD PAIN(1-3)OR ELEVATED TEMP Last administered on 09/01/18 03:40; Admin Dose 325 MG; Start 08/18/18 at 05:30 Levothyroxine Sodium (Synthroid) 50 mcg DAILY@06 PO Last administered on 09/01/18 05:30; Admin Dose 50 MCG; Start 08/20/18 at 06:00 Famotidine (Pepcid) 20 mg DAILY PO Last administered on 09/01/18 08:20; Admin Dose 20 MG; Start 08/21/18 at 09:00 Apixaban (Eliquis) 2.5 mg BID PO Last administered on 08/27/18 21:24; Admin Dose 2.5 MG; Start 08/21/18 at 09:30; Status Hold Diagnostic Test (Pha) (Accu-Chek) 1 ea Q4 XX Last administered on 09/01/18 09:56; Admin Dose 1 EA; Start 08/23/18 at 21:00 Fat Emulsion Intravenous 250 ml @ 21 mls/hr DAILY IV Last administered on 09/01/18 08:21; Admin Dose 21 MLS/HR; Start 08/24/18 at 14:00 Total Parenteral Nutrition 1,000 ml @ 65 mls/hr [id number] IV Last administered on 09/01/18 11:13; Admin Dose 65 MLS/HR; Start 08/24/18 at 16:00 Albumin Human 100 ml @ 100 mls/hr WITH DIALYSIS PRN IV SBP <90 DURING DIALYSIS Last administered on 08/30/18 10:41; Admin Dose 100 MLS/HR; Start 08/26/18 at 08:30 Insulin Aspart (Novolog Insulin Pen) NOVOLOG *MODERATE* ALGORITHM Q4 SC Last administered on 08/31/18 13:30; Admin Dose 2 UNIT; Start 08/27/18 at 13:00 Loratadine (Claritin) 10 mg DAILY NGT Last administered on 09/01/18 08:21; Admin Dose 10 MG; Start 08/29/18 at 09:00; Stop 09/11/18 at 12:00 Fluticasone Propionate (Flonase 0.05% Nasal) 1 spray BID NASAL Last administered on 09/01/18 08:21; Admin Dose 1 SPRAY; Start 08/28/18 at 21:00; Stop 08/26/19 at 22:00 Albuterol/ Ipratropium (Duoneb) 3 ml Q6HWA RESP THERAPY HHN Last administered on 09/01/18 14:36; Admin Dose 3 ML; Start 08/28/18 at 20:00 Albuterol/ Ipratropium (Duoneb) 3 ml Q2H RESP THERAPY PRN HHN shortness of br eath; Start 08/28/18 at 19:00 Loperamide HCl (Imodium Cap) 4 mg BID PO Last administered on 09/01/18 08:20; Admin Dose 4 MG; Start 08/31/18 at 21:00 Ferrous Sulfate (Ferrous Sulfate (Ec)) 325 mg BID PO Last administered on 09/01/18 08:20; Admin Dose 325 MG; Start 08/31/18 at 21:00 Norepinephrine 250 ml @ 1.875 mls/ hr TITRATE IV Last administered on 09/01/18 12:39; Admin Dose 3.75 MLS/HR; Start 09/01/18 at 11:00 Vancomycin HCl (Vanco Iv Per Pharmacy) VANCOMYCIN PER PHARMACY PER PROTOCOL XX ; Start 09/01/18 at 11:30 Metronidazole 100 ml @ 100 mls/hr Q8 IVPB Last administered on 09/01/18 14:27; Admin Dose 100 MLS/HR; Start 09/01/18 at 14:00 Levofloxacin/ Dextrose 50 ml @ 50 mls/hr Q48H IVPB Last administered on 09/01/18at 12:21; Admin Dose 50 MLS/HR; Start 09/01/18 at 12:00 Vancomycin HCl 1.5 gm/Sodium Chloride 250 ml @ 83.333 mls/ hr ONCE@1300 IVPB Last administered on 09/01/18at 12:46; Admin Dose 83.333 MLS/HR; Start 09/01/18 at 13:00; Stop 09/01/18 at 21:00 Insulin Glargine (Lantus) 25 units BID@0800,2000 SC ; Start 09/01/18 at 20:00 LAMIN STEIN MD Sep 01, 2018 18:23
[2018-09-02] VITALS (67 sets, daily range): BP systolic 73–137; BP diastolic 35–79; PULSE 68–103; RESP 13–33
[2018-09-02] MEDS: INSULIN ASPART [NOVOLOG] 3 ML PEN SC SCH ×6 (01:00→21:00)
[2018-09-02] MEDS: DEXTROSE 50% 50 ML SYRINGE IV PRN ×2 (01:02→03:28)
[2018-09-02] MEDS: ACCU-CHEK XX SCH ×7 (01:06→21:20)
[2018-09-02] MEDS: TPN 1,000 ML IV SCH ×2 (01:33→17:47)
[2018-09-02] MEDS ORDERED: DEXTROSE 10% 1,000 ML IV SCH (02:00)
[2018-09-02] MEDS: LEVOTHYROXINE 50 MCG TAB PO SCH (05:27)
[2018-09-02] MEDS: metroNIDAZOLE 500 MG/NS (PMX) 100 ML IVPB SCH ×3 (05:27→21:54)
[2018-09-02] MEDS: ALBUTEROL/IPRATROPIUM (NEB) 3 ML AMP HHN SCH ×3 (07:35→19:21)
[2018-09-02] MEDS: FOLIC ACID 1 MG TAB PO SCH (08:44)
[2018-09-02] MEDS: FERROUS SULFATE (EC) 325 MG TAB PO SCH ×2 (08:44→21:16)
[2018-09-02] MEDS: CHOLECALCIFEROL 1,000 UNIT TAB PO SCH (08:44)
[2018-09-02] MEDS: FAMOTIDINE 20 MG TAB PO SCH (08:44)
[2018-09-02] MEDS: MIDODRINE 5 MG TAB PO SCH (08:44)
[2018-09-02] MEDS: BALSAM PERU/CASTOR OIL 60 GM TUBE TOP SCH ×2 (08:45→21:20)
[2018-09-02] MEDS: FLUTICASONE 0.05% 16 GM NAS SPRAY NASAL SCH ×2 (08:45→21:16)
[2018-09-02] MEDS: LORATADINE 10 MG TAB NGT SCH (08:55)
--- NOTE | 2018-09-02 09:17 | PN ---
Date/Time of Note Date/Time of Note DATE: 09/02/18 TIME: 09:17 Assessment/Plan VTE Prophylaxis Risk score (from Nsg)>0 risk: 13 SCD applied (from Nsg): Yes Pharmacological prophylaxis: NA/contraindicated Pharm contraindication: anticoag not tolerated Lines/Catheters IV Catheter Type (from Nrsg): horacio Urinary Cath still in place: No Assessment/Plan Assessment/Plan 1. Colonic mass at the splenic flexure and ascending colon s/p subtotal colectomy and small bowel resection on 08/14/18 - General surgery on board and appreciate consultation. Continue current care in ICU and continue pouch for fistula - Continue TPN at this time given fistula - GI on board and appreciate recommendations. 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 Will need 36 months of adjuvant therapy for GIST tumor once abdominal wounds healed but no further intervention for nima nocarcinoma - Cardiology consultation appreciated - ID consulted for possible prophylaxis abx 2. End-stage renal disease on HD - Nephrology on board for HD management and appreciate recommendations 3. Anemia of chronic disease - 2 units PRBC to be given with HD today - continue monitoring - holding Eliquis at this time given low hgb levels 4. Hypoglycemia - sugars continue to fluctuate - holding Lantus for now 5. ?Shock secondary to hemodynamics vs infectious etiology - ID on board and appreciate recommendations - currently on Levophed and will wean as tolerated 6. Acute toxic encephalopathy - Neurology on board and appreciate recommendations - MRI unable to be done due to pacemaker 7. Arm swelling, right brachial DVT, thrombosis of left cephalic vein - Ultrasound showed right brachial DVT as well as thrombosis of the left cephalic vein. Patient's midline on his right arm is the likely culprit for the DVT on his right brachial vein. - monitor, warm compresses. - Patient is likely an hypercoagulable state due to his carcinoma. Will restart Eliquis when possible - clogged fistula catheter (HeRO), consulted Dr. Coelho for recs as he is patient's vascular surgeon, recommended Horacio for now until we can fully anticoagulate. Follow as outpatient 8. Diabetes - A1c noted - ISS and accuchecks 9. Esophagitis - Continue PPI 10. Hypothyroidism - Continue home Synthroid 11. Nonischemic CM - pacer in place - Chronic per outpatient [employer] 12. Mild acute on chronic systolic HF - fluid removal during HD 13. 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 Output decreasing - Continue on TPN at this time - Continue monitoring in ICU given on pressor support following HD Result Diagram: 09/02/18 0400 09/02/18 0400 Results 24hrs Laboratory Tests Test 09/01/18 09:55 09/01/18 10:19 09/01/18 12:01 09/01/18 12:05 Bedside Glucose 82 35 *L Hemoglobin 7.0 L Hematocrit 22.5 L Glucose Level 30 *L Test 09/01/18 12:08 09/01/18 12:23 09/01/18 13:00 09/01/18 13:22 Bedside Glucose 32 *L 142 99 Blood Gas Blood arterial Specimen Source Arterial Blood 09/01/2018 3:05:0 Date Drawn 3 PM Arterial Blood pH 7.355 (Temp corrected) Arterial Blood 34.9 L pCO2 (Temp correct) Arterial Blood 129.5 H pO2 (Temp corrected) Arterial Blood 19.1 L HCO3 Arterial Blood -5.9 L Base Excess Arterial Blood 98.1 Oxygen Saturation Robbie Test ACCEPTAB Arterial Blood Right Brachial Gas Puncture Site Arterial 0.8 Blood Carboxyhemo globin Arterial Blood 0.1 Methemoglobin Blood Gas A-a O2 43.4 H Differential Oxyhemoglobin 97.2 Percent Blood Gas 37.0 Temperature Blood Gas NASAL CANNULA Modality FiO2 30.0 Blood Gas MDA Notified Whom Blood Gas 09/01/2018 3:10:4 Notified Time 1 PM Test 09/01/18 14:29 09/01/18 15:29 09/01/18 16:38 09/01/18 17:33 Bedside Glucose 94 108 75 73 Test 09/01/18 18:45 09/01/18 19:09 09/01/18 20:12 09/02/18 00:59 Bedside Glucose 68 L 112 81 30 *L Test 09/02/18 01:19 09/02/18 01:41 09/02/18 03:23 09/02/18 03:47 Bedside Glucose 105 82 60 L 97 Test 09/02/18 03:59 09/02/18 04:00 09/02/18 04:56 09/02/18 08:51 Bedside Glucose 89 98 96 White Blood Count 8.1 Red Blood Count 2.43 L Hemoglobin 7.0 L Hematocrit 23.6 L Mean Corpuscular 97.1 Volume Mean Corpuscular 28.8 L Hemoglobin Mean Corpuscular 29.7 L Hemoglobin Concen t Red Cell 16.8 H Distribution Width Platelet Count 134 L Mean Platelet 12.3 H Volume Immature 1.200 H Granulocytes % Neutrophils % 76.3 Lymphocytes % 7.0 L Monocytes % 10.5 Eosinophils % 4.6 Basophils % 0.4 Nucleated Red 0.0 Blood Cells % Immature 0.100 H Granulocytes # Neutrophils # 6.2 Lymphocytes # 0.6 L Monocytes # 0.9 Eosinophils # 0.4 Basophils # 0.0 Nucleated Red 0.0 Blood Cells # Sodium Level 134 L Potassium Level 4.1 Chloride Level 100 Carbon Dioxide 21 Level Anion Gap 13 Blood Urea 69 H Nitrogen Creatinine 4.56 H Est Glomerular Filtrat Rate mL/min Glucose Level 89 # Calcium Level 9.4 Phosphorus Level 4.1 Magnesium Level 1.9 Subjective 24 Hr Interval Summary Free Text/Dictation Patient awake but quiet this am. Denies any discomfort of pain. s/p HD this am and after removal of 2L required pressor support to maintain BP. Exam/Review of Systems Exam Vitals Vital Signs Date Temp Pulse Resp B/P (MAP) Pulse Ox O2 O2 Flow FiO2 Time Delivery Rate 09/02/18 89 18 77/65 (69) 100 Nasal 2.0 09:00 Cannula 09/02/18 98.3 08:00 Intake and Output 09/01/18 09/01/18 09/02/18 1515:00 23:00 07:00 IntakeIntake Total 879.410 ml 993.715 ml 595 ml OutputOutput Total 200 ml 225 ml BalanceBalance 879.410 ml 793.715 ml 370 ml Exam General: Patient is laying in bed and answers questions appropriately intermittently Neck: Supple, nontender, midline Respiratory: Clear to auscultation bilaterally. no wheezing. diminished at bases Cardiovascular: regular rate and rhythm, no obvious murmurs Gastrointestinal: soft, tender to palpation, bowel sounds heard. fistula present Neurological: Moves all extremities spontaneously Ext: swelling of UE and LE bilaterally Skin: No new skin lesions Results Results 24hrs Laboratory Tests Test 09/01/18 09:55 09/01/18 10:19 09/01/18 12:01 09/01/18 12:05 Bedside Glucose 82 35 *L Hemoglobin 7.0 L Hematocrit 22.5 L Glucose Level 30 *L Test 09/01/18 12:08 09/01/18 12:23 09/01/18 13:00 09/01/18 13:22 Bedside Glucose 32 *L 142 99 Blood Gas Blood arterial Specimen Source Arterial Blood 09/01/2018 3:05:0 Date Drawn 3 PM Arterial Blood pH 7.355 (Temp corrected) Arterial Blood 34.9 L pCO2 (Temp correct) Arterial Blood 129.5 H pO2 (Temp corrected) Arterial Blood 19.1 L HCO3 Arterial Blood -5.9 L Base Excess Arterial Blood 98.1 Oxygen Saturation Robbie Test ACCEPTAB Arterial Blood Right Brachial Gas Puncture Site Arterial 0.8 Blood Carboxyhemo globin Arterial Blood 0.1 Methemoglobin Blood Gas A-a O2 43.4 H Differential Oxyhemoglobin 97.2 Percent Blood Gas 37.0 Temperature Blood Gas NASAL CANNULA Modality FiO2 30.0 Blood Gas MDA Notified Whom Blood Gas 09/01/2018 3:10:4 Notified Time 1 PM Test 09/01/18 14:29 09/01/18 15:29 09/01/18 16:38 09/01/18 17:33 Bedside Glucose 94 108 75 73 Test 09/01/18 18:45 09/01/18 19:09 09/01/18 20:12 09/02/18 00:59 Bedside Glucose 68 L 112 81 30 *L Test 09/02/18 01:19 09/02/18 01:41 09/02/18 03:23 09/02/18 03:47 Bedside Glucose 105 82 60 L 97 Test 09/02/18 03:59 09/02/18 04:00 09/02/18 04:56 09/02/18 08:51 Bedside Glucose 89 98 96 White Blood Count 8.1 Red Blood Count 2.43 L Hemoglobin 7.0 L Hematocrit 23.6 L Mean Corpuscular 97.1 Volume Mean Corpuscular 28.8 L Hemoglobin Mean Corpuscular 29.7 L Hemoglobin Concen t Red Cell 16.8 H Distribution Width Platelet Count 134 L Mean Platelet 12.3 H Volume Immature 1.200 H Granulocytes % Neutrophils % 76.3 Lymphocytes % 7.0 L Monocytes % 10.5 Eosinophils % 4.6 Basophils % 0.4 Nucleated Red 0.0 Blood Cells % Immature 0.100 H Granulocytes # Neutrophils # 6.2 Lymphocytes # 0.6 L Monocytes # 0.9 Eosinophils # 0.4 Basophils # 0.0 Nucleated Red 0.0 Blood Cells # Sodium Level 134 L Potassium Level 4.1 Chloride Level 100 Carbon Dioxide 21 Level Anion Gap 13 Blood Urea 69 H Nitrogen Creatinine 4.56 H Est Glomerular Filtrat Rate mL/min Glucose Level 89 # Calcium Level 9.4 Phosphorus Level 4.1 Magnesium Level 1.9 Medications Medication Current Medications Ondansetron HCl (Zofran Inj) 4 mg Q6H PRN IV NAUSEA/VOMITING Last administered on 08/19/18 12:55; Admin Dose 4 MG; Start 08/02/18 at 13:00 Diagnostic Test (Pha) (Accu-Chek) 1 ea 02 XX Last administered on 09/02/18 01:42; Admin Dose 1 EA; Start 08/03/18 at 02:00 Glucose (Glutose) 15 gm Q15M PRN PO DECREASED GLUCOSE; Start 08/02/18 at 13:30 Glucose (Glutose) 22.5 gm Q15M PRN PO DECREASED GLUCOSE; Start 08/02/18 at 13:30 Dextrose (D50w Syringe) 25 ml Q15M PRN IV DECREASED GLUCOSE Last administered on 09/02/18 03:28; Admin Dose 25 ML; Start 08/02/18 at 13:30 Dextrose (D50w Syringe) 50 ml Q15M PRN IV DECREASED GLUCOSE Last administered o n 09/02/18 01:02; Admin Dose 50 ML; Start 08/02/18 at 13:30 Glucagon (Glucagen) 1 mg Q15M PRN IM DECREASED GLUCOSE; Start 08/02/18 at 13:30 Glucose (Glutose) 15 gm Q15M PRN BUCCAL DECREASED GLUCOSE; Start 08/02/18 at 13:30 Cholecalciferol (Vitamin D) 1,000 unit DAILY PO Last administered on 09/02/18 08:44; Admin Dose 1,000 UNIT; Start 08/03/18 at 09:00 Folic Acid (Folic Acid) 1 mg DAILY PO Last administered on 09/02/18 08:44; Admin Dose 1 MG; Start 08/03/18 at 09:00 Midodrine (Proamatine) 5 mg ON DIALYSIS DAYS PO Last administered on 09/02/18 08:44; Admin Dose 5 MG; Start 08/02/18 at 18:00 Gabapentin (Neurontin) 100 mg DAILY PO Last administered on 08/13/18 09:07; Admin Dose 100 MG; Start 08/07/18 at 11:30; Status Hold Phenol (Cepastat Lozenge) 1 lozenge Q1H PRN MT COUGH Last administered on 08/08/18 02:34; Admin Dose 1 LOZENGE; Start 08/07/18 at 23:00 Heparin Sodium (Porcine) (Heparin (1000 Units/ml)) 6,100 unit AFTER DIALYSIS CATHETER Last administered on 08/30/18 12:51; Admin Dose 6,100 UNIT; Start 08/16/18 at 22:30 Acetaminophen (Tylenol Tab) 650 mg Q6H PRN PO MILD PAIN(1-3)OR ELEVATED TEMP Last administered on 09/01/18 03:40; Admin Dose 325 MG; Start 08/18/18 at 05:30 Levothyroxine Sodium (Synthroid) 50 mcg DAILY@06 PO Last administered on 09/02/18 05:27; Admin Dose 50 MCG; Start 08/20/18 at 06:00 Famotidine (Pepcid) 20 mg DAILY PO Last administered on 09/02/18 08:44; Admin Dose 20 MG; Start 08/21/18 at 09:00 Apixaban (Eliquis) 2.5 mg BID PO Last administered on 08/27/18 21:24; Admin Dose 2.5 MG; Start 08/21/18 at 09:30; Status Hold Diagnostic Test (Pha) (Accu-Chek) 1 ea Q4 XX Last administered on 09/02/18 08:45; Admin Dose 1 EA; Start 08/23/18 at 21:00 Fat Emulsion Intravenous 250 ml @ 21 mls/hr DAILY IV Last administered on 09/01/18 08:21; Admin Dose 21 MLS/HR; Start 08/24/18 at 14:00 Total Parenteral Nutrition 1,000 ml @ 65 mls/hr [id number] IV Last administered on 09/02/18 01:33; Admin Dose 65 MLS/HR; Start 08/24/18 at 16:00 Albumin Human 100 ml @ 100 mls/hr WITH DIALYSIS PRN IV SBP <90 DURING DIALYSIS Last administered on 08/30/18 10:41; Admin Dose 100 MLS/HR; Start 08/26/18 at 08:30 Insulin Aspart (Novolog Insulin Pen) NOVOLOG *MODERATE* ALGORITHM Q4 SC Last administered on 08/31/18 13:30; Admin Dose 2 UNIT; Start 08/27/18 at 13:00 Fluticasone Propionate (Flonase 0.05% Nasal) 1 spray BID NASAL Last administered on 09/02/18 08:45; Admin Dose 1 SPRAY; Start 08/28/18 at 21:00; Stop 08/26/19 at 22:00 Albuterol/ Ipratropium (Duoneb) 3 ml Q6HWA RESP THERAPY HHN Last administered on 09/02/18 07:35; Admin Dose 3 ML; Start 08/28/18 at 20:00 Albuterol/ Ipratropium (Duoneb) 3 ml Q2H RESP THERAPY PRN HHN shortness of br eath; Start 08/28/18 at 19:00 Loperamide HCl (Imodium Cap) 4 mg BID PO Last administered on 09/01/18 20:42; Admin Dose 4 MG; Start 08/31/18 at 21:00 Ferrous Sulfate (Ferrous Sulfate (Ec)) 325 mg BID PO Last administered on 09/02/18 08:44; Admin Dose 325 MG; Start 08/31/18 at 21:00 Norepinephrine 250 ml @ 1.875 mls/ hr TITRATE IV Last administered on 09/01/18 12:39; Admin Dose 3.75 MLS/HR; Start 09/01/18 at 11:00 Vancomycin HCl (Vanco Iv Per Pharmacy) VANCOMYCIN PER PHARMACY PER PROTOCOL XX ; Start 09/01/18 at 11:30 Metronidazole 100 ml @ 100 mls/hr Q8 IVPB Last administered on 09/02/18 05:27; Admin Dose 100 MLS/HR; Start 09/01/18 at 14:00 Levofloxacin/ Dextrose 50 ml @ 50 mls/hr Q48H IVPB Last administered on 09/01/18 12:21; Admin Dose 50 MLS/HR; Start 09/01/18 at 12:00 Insulin Glargine (Lantus) 25 units BID@0800,2000 SC ; Start 09/01/18 at 20:00; Status Hold Dextrose 1,000 ml @ 40 mls/hr Q24H IV Last administered on 09/02/18at 02:26; Admin Dose 40 MLS/HR; Start 09/02/18 at 02:00 Loratadine (Claritin) 10 mg Q48H NGT Last administered on 09/02/18at 08:55; Admin Dose 10 MG; Start 09/02/18 at 08:30; Stop 09/11/18 at 23:59 JO HURST MD Sep 02, 2018 09:17
--- NOTE | 2018-09-02 09:47 | CONS ---
Assessment/Plan Assessment/Plan Assessment/Plan (Daily) 1 End-stage renal disease, on hemodialysis, mwf with mild CHF 2. 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 Hypotension. On Midodrine at home now worsening acne secondary to worsening anemia/sepsis 4. History of congestive heart failure.1 End-stage renal disease, on hemodialysis,mwf with mild CHF 5. Hypercholesterolemia. 6. Hx of total hip replacement. 7. leucocytosis, off pressor and trending down leukocytosis 8. Hypoglycemia. 9. Macrocytic hypochromic Anemia mixed etiology, recent blood loss and 2/2 kidney disease 10. 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% 12 Clotted left arm AV graft 13 b/lateral lower extremity edema plan -HD today along with 2 units of blood -Patient is edematous, will require more volume removal however is limited we are limited because of blood pressure -TPN per surgery -he is on D10 as patient was hypoglycemic -Renally dose dose all meds - avoid nephrotoxins Consultation Date/Type/Reason Admit Date/Time Aug 02, 2018 at 10:57 Initial Consult Date 08/03/18 Requesting Provider: DULCE GALINDO Date/Time of Note DATE: 09/02/18 TIME: 09:42 24 HR Interval Summary Free Text/Dictation Patient was transferred to ICU as he was hypotensive Receiving 2 units of blood today HD in progress Exam/Review of Systems Exam Vitals Vital Signs Date Temp Pulse Resp B/P (MAP) Pulse Ox O2 O2 Flow FiO2 Time Delivery Rate 09/02/18 68 13 105/54 100 Nasal 2.0 09:17 (71) Cannula 09/02/18 98.3 08:00 Intake and Output 09/01/18 09/01/18 09/02/18 1515:00 23:00 07:00 IntakeIntake Total 879.410 ml 993.715 ml 595 ml OutputOutput Total 200 ml 225 ml BalanceBalance 879.410 ml 793.715 ml 370 ml Exam Neck: supple Respiratory: clear to auscultation Cardiovascular: regular rate and rhythm, edema Extremities: other (++) Results Result Diagram: 09/02/18 0400 09/02/18 0400 Results 24hrs Laboratory Tests Test 09/01/18 09:55 09/01/18 10:19 09/01/18 12:01 09/01/18 12:05 Bedside Glucose 82 35 *L Hemoglobin 7.0 L Hematocrit 22.5 L Glucose Level 30 *L Test 09/01/18 12:08 09/01/18 12:23 09/01/18 13:00 09/01/18 13:22 Bedside Glucose 32 *L 142 99 Blood Gas Blood arterial Specimen Source Arterial Blood 09/01/2018 3:05:0 Date Drawn 3 PM Arterial Blood pH 7.355 (Temp corrected) Arterial Blood 34.9 L pCO2 (Temp correct) Arterial Blood 129.5 H pO2 (Temp corrected) Arterial Blood 19.1 L HCO3 Arterial Blood -5.9 L Base Excess Arterial Blood 98.1 Oxygen Saturation Robbie Test ACCEPTAB Arterial Blood Right Brachial Gas Puncture Site Arterial 0.8 Blood Carboxyhemo globin Arterial Blood 0.1 Methemoglobin Blood Gas A-a O2 43.4 H Differential Oxyhemoglobin 97.2 Percent Blood Gas 37.0 Temperature Blood Gas NASAL CANNULA Modality FiO2 30.0 Blood Gas MDA Notified Whom Blood Gas 09/01/2018 3:10:4 Notified Time 1 PM Test 09/01/18 14:29 09/01/18 15:29 09/01/18 16:38 09/01/18 17:33 Bedside Glucose 94 108 75 73 Test 09/01/18 18:45 09/01/18 19:09 09/01/18 20:12 09/02/18 00:59 Bedside Glucose 68 L 112 81 30 *L Test 09/02/18 01:19 09/02/18 01:41 09/02/18 03:23 09/02/18 03:47 Bedside Glucose 105 82 60 L 97 Test 09/02/18 03:59 09/02/18 04:00 09/02/18 04:56 09/02/18 08:51 Bedside Glucose 89 98 96 White Blood Count 8.1 Red Blood Count 2.43 L Hemoglobin 7.0 L Hematocrit 23.6 L Mean Corpuscular 97.1 Volume Mean Corpuscular 28.8 L Hemoglobin Mean Corpuscular 29.7 L Hemoglobin Concen t Red Cell 16.8 H Distribution Width Platelet Count 134 L Mean Platelet 12.3 H Volume Immature 1.200 H Granulocytes % Neutrophils % 76.3 Lymphocytes % 7.0 L Monocytes % 10.5 Eosinophils % 4.6 Basophils % 0.4 Nucleated Red 0.0 Blood Cells % Immature 0.100 H Granulocytes # Neutrophils # 6.2 Lymphocytes # 0.6 L Monocytes # 0.9 Eosinophils # 0.4 Basophils # 0.0 Nucleated Red 0.0 Blood Cells # Sodium Level 134 L Potassium Level 4.1 Chloride Level 100 Carbon Dioxide 21 Level Anion Gap 13 Blood Urea 69 H Nitrogen Creatinine 4.56 H Est Glomerular Filtrat Rate mL/min Glucose Level 89 # Calcium Level 9.4 Phosphorus Level 4.1 Magnesium Level 1.9 Medications Medication Current Medications Ondansetron HCl (Zofran Inj) 4 mg Q6H PRN IV NAUSEA/VOMITING Last administered on 08/19/18 12:55; Admin Dose 4 MG; Start 08/02/18 at 13:00 Diagnostic Test (Pha) (Accu-Chek) 1 ea 02 XX Last administered on 09/02/18 01:42; Admin Dose 1 EA; Start 08/03/18 at 02:00 Glucose (Glutose) 15 gm Q15M PRN PO DECREASED GLUCOSE; Start 08/02/18 at 13:30 Glucose (Glutose) 22.5 gm Q15M PRN PO DECREASED GLUCOSE; Start 08/02/18 at 13:30 Dextrose (D50w Syringe) 25 ml Q15M PRN IV DECREASED GLUCOSE Last administered on 09/02/18 03:28; Admin Dose 25 ML; Start 08/02/18 at 13:30 Dextrose (D50w Syringe) 50 ml Q15M PRN IV DECREASED GLUCOSE Last administered on 09/02/18 01:02; Admin Dose 50 ML; Start 08/02/18 at 13:30 Glucagon (Glucagen) 1 mg Q15M PRN IM DECREASED GLUCOSE; Start 08/02/18 at 13:30 Glucose (Glutose) 15 gm Q15M PRN BUCCAL DECREASED GLUCOSE; Start 08/02/18 at 13:30 Cholecalciferol (Vitamin D) 1,000 unit DAILY PO Last administered on 09/02/18 08:44; Admin Dose 1,000 UNIT; Start 08/03/18 at 09:00 Folic Acid (Folic Acid) 1 mg DAILY PO Last administered on 09/02/18 08:44; Admin Dose 1 MG; Start 08/03/18 at 09:00 Midodrine (Proamatine) 5 mg ON DIALYSIS DAYS PO Last administered on 09/02/18 08:44; Admin Dose 5 MG; Start 08/02/18 at 18:00 Gabapentin (Neurontin) 100 mg DAILY PO Last administered on 08/13/18 09:07; Admin Dose 100 MG; Start 08/07/18 at 11:30; Status Hold Phenol (Cepastat Lozenge) 1 lozenge Q1H PRN MT COUGH Last administered on 08/08/18 02:34; Admin Dose 1 LOZENGE; Start 08/07/18 at 23:00 Heparin Sodium (Porcine) (Heparin (1000 Units/ml)) 6,100 unit AFTER DIALYSIS CATHETER Last administered on 08/30/18 12:51; Admin Dose 6,100 UNIT; Start 08/16/18 at 22:30 Acetaminophen (Tylenol Tab) 650 mg Q6H PRN PO MILD PAIN(1-3)OR ELEVATED TEMP Last administered on 09/01/18 03:40; Admin Dose 325 MG; Start 08/18/18 at 05:30 Levothyroxine Sodium (Synthroid) 50 mcg DAILY@06 PO Last administered on 09/02/18 05:27; Admin Dose 50 MCG; Start 08/20/18 at 06:00 Famotidine (Pepcid) 20 mg DAILY PO Last administered on 09/02/18 08:44; Admin Dose 20 MG; Start 08/21/18 at 09:00 Apixaban (Eliquis) 2.5 mg BID PO Last administered on 08/27/18 21:24; Admin Dose 2.5 MG; Start 08/21/18 at 09:30; Status Hold Diagnostic Test (Pha) (Accu-Chek) 1 ea Q4 XX Last administered on 09/02/18 08:45; Admin Dose 1 EA; Start 08/23/18 at 21:00 Fat Emulsion Intravenous 250 ml @ 21 mls/hr DAILY IV Last administered on 09/01/18 08:21; Admin Dose 21 MLS/HR; Start 08/24/18 at 14:00 Total Parenteral Nutrition 1,000 ml @ 65 mls/hr [id number] IV Last administered on 09/02/18 01:33; Admin Dose 65 MLS/HR; Start 08/24/18 at 16:00 Albumin Human 100 ml @ 100 mls/hr WITH DIALYSIS PRN IV SBP <90 DURING DIALYSIS Last administered on 08/30/18 10:41; Admin Dose 100 MLS/HR; Start 08/26/18 at 08:30 Insulin Aspart (Novolog Insulin Pen) NOVOLOG *MODERATE* ALGORITHM Q4 SC Last administered on 08/31/18 13:30; Admin Dose 2 UNIT; Start 08/27/18 at 13:00 Fluticasone Propionate (Flonase 0.05% Nasal) 1 spray BID NASAL Last administered on 09/02/18 08:45; Admin Dose 1 SPRAY; Start 08/28/18 at 21:00; Stop 08/26/19 at 22:00 Albuterol/ Ipratropium (Duoneb) 3 ml Q6HWA RESP THERAPY HHN Last administered on 09/02/18 07:35; Admin Dose 3 ML; Start 08/28/18 at 20:00 Albuterol/ Ipratropium (Duoneb) 3 ml Q2H RESP THERAPY PRN HHN shortness of breath; Start 08/28/18 at 19:00 Loperamide HCl (Imodium Cap) 4 mg BID PO Last administered on 09/01/18 20:42; Admin Dose 4 MG; Start 08/31/18 at 21:00 Ferrous Sulfate (Ferrous Sulfate (Ec)) 325 mg BID PO Last administered on 09/02/18 08:44; Admin Dose 325 MG; Start 08/31/18 at 21:00 Norepinephrine 250 ml @ 1.875 mls/ hr TITRATE IV Last administered on 09/01/18 12:39; Admin Dose 3.75 MLS/HR; Start 09/01/18 at 11:00 Vancomycin HCl (Vanco Iv Per Pharmacy) VANCOMYCIN PER PHARMACY PER PROTOCOL XX ; Start 09/01/18 at 11:30 Metronidazole 100 ml @ 100 mls/hr Q8 IVPB Last administered on 09/02/18 05: 27; Admin Dose 100 MLS/HR; Start 09/01/18 at 14:00 Levofloxacin/ Dextrose 50 ml @ 50 mls/hr Q48H IVPB Last administered on 09/01/18 12:21; Admin Dose 50 MLS/HR; Start 09/01/18 at 12:00 Insulin Glargine (Lantus) 25 units BID@0800,2000 SC ; Start 09/01/18 at 20:00; Status Hold Dextrose 1,000 ml @ 40 mls/hr Q24H IV Last administered on 09/02/18at 02:26; Admin Dose 40 MLS/HR; Start 09/02/18 at 02:00 Loratadine (Claritin) 10 mg Q48H NGT Last administered on 09/02/18at 08:55; Admin Dose 10 MG; Start 09/02/18 at 08:30; Stop 09/11/18 at 23:59 NNEKA FRITZ MD Sep 02, 2018 09:47
[2018-09-02] MEDS: LOPERAMIDE 2 MG CAP PO SCH ×2 (09:50→21:16)
--- NOTE | 2018-09-02 09:59 | CONS ---
Assessment/Plan Assessment/Plan Hospital Course (Demo Recall) #Adenocarcinoma of ascending Colon ca -final pathology report reveals 2 separate masses with different pathology results. -the ascending colon mass is consistent with a Moderately-differentiated adenocarcinoma, invading through the muscularis propria, with all 0/18 negative for disease, 3.6 x 2.8 x 1.1 cm. -the splenic flexture mass is 10.5 x 9.0 x 7.0 cm.and consistent with a high grade GIST tumor -CT does not reveal evidence of distant mets -in terms of the adenocarcinoma, pt does not need adjuvant chemotherapy given this was a stage IIA tumor. 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 However we need to see if he is positive for KIT exon 9 mutation which may need higher doses of imatinib (eg 800mg q day vs 400mg q day) -Regardless, given he does have the KIT mutation he would He would however benefit adjuvant Gleevec for at least 36 mo #hypotension -pt no off pressors -to get 2 units of PRBCs today #Enterocutaneous fistula -pt now has TPN on board and ostomy bag in place -drainage is less. -pt is NPO #ESRD -continue HD per renal #Diabetes - pt had an episode of hypoglycemia. he is now on D 10 #Hypothyroidism - Continue Synthroid #Nonischemic CM - pacer in place - nonchronic Thank you for the opportunity to participate in this patients care A total of 40 minutes of face to face time was spent speaking with the patient, of which greater than 50% was spent in counseling and coordination of care and the detailed question and answer session. Consultation Date/Type/Reason Admit Date/Time Aug 02, 2018 at 10:57 Initial Consult Date 08/09/18 Type of Consult oncology Reason for Consultation colon cancer Requesting Provider: DULCE GALINDO Date/Time of Note DATE: 09/02/18 TIME: 09:56 24 HR Interval Summary Free Text/Dictation pt was transferred to ICU over the weekend for hypoglycemia and hypotension. pt is now off pressor support Exam/Review of Systems Exam Vitals Vital Signs Date Temp Pulse Resp B/P (MAP) Pulse Ox O2 O2 Flow FiO2 Time Delivery Rate 09/02/18 91 09:35 09/02/18 13 105/54 100 Nasal 2.0 09:17 (71) Cannula 09/02/18 98.3 08:00 Intake and Output 09/01/18 09/01/18 09/02/18 1515:00 23:00 07:00 IntakeIntake Total 879.410 ml 993.715 ml 595 ml OutputOutput Total 200 ml 225 ml BalanceBalance 879.410 ml 793.715 ml 370 ml Psych: no complaints, confusion, depression Head: normocephalic Eyes: nl conjunctiva ENMT: nl external ears & nose Neck: supple Respiratory: clear to auscultation Cardiovascular: regular rate and rhythm Gastrointestinal: surgical scars, other (enterocutaneous fistula) Musculoskeletal: nl extremities to inspection Results Result Diagram: 09/02/18 0400 09/02/18 0400 Results 24hrs Laboratory Tests Test 09/01/18 10:19 09/01/18 12:01 09/01/18 12:05 09/01/18 12:08 Hemoglobin 7.0 L Hematocrit 22.5 L Bedside Glucose 35 *L 32 *L Glucose Level 30 *L Test 09/01/18 12:23 09/01/18 13:00 09/01/18 13:22 09/01/18 14:29 Bedside Glucose 142 99 94 Blood Gas Blood arterial Specimen Source Arterial Blood 09/01/2018 3:05:0 Date Drawn 3 PM Arterial Blood pH 7.355 (Temp corrected) Arterial Blood 34.9 L pCO2 (Temp correct) Arterial Blood 129.5 H pO2 (Temp corrected) Arterial Blood 19.1 L HCO3 Arterial Blood -5.9 L Base Excess Arterial Blood 98.1 Oxygen Saturation Robbie Test ACCEPTAB Arterial Blood Right Brachial Gas Puncture Site Arterial 0.8 Blood Carboxyhemo globin Arterial Blood 0.1 Methemoglobin Blood Gas A-a O2 43.4 H Differential Oxyhemoglobin 97.2 Percent Blood Gas 37.0 Temperature Blood Gas NASAL CANNULA Modality FiO2 30.0 Blood Gas MDA Notified Whom Blood Gas 09/01/2018 3:10:4 Notified Time 1 PM Test 09/01/18 15:29 09/01/18 16:38 09/01/18 17:33 09/01/18 18:45 Bedside Glucose 108 75 73 68 L Test 09/01/18 19:09 09/01/18 20:12 09/02/18 00:59 09/02/18 01:19 Bedside Glucose 112 81 30 *L 105 Test 09/02/18 01:41 09/02/18 03:23 09/02/18 03:47 09/02/18 03:59 Bedside Glucose 82 60 L 97 89 Test 09/02/18 04:00 09/02/18 04:56 09/02/18 08:51 White Blood Count 8.1 Red Blood Count 2.43 L Hemoglobin 7.0 L Hematocrit 23.6 L Mean Corpuscular 97.1 Volume Mean Corpuscular 28.8 L Hemoglobin Mean Corpuscular 29.7 L Hemoglobin Concen t Red Cell 16.8 H Distribution Width Platelet Count 134 L Mean Platelet 12.3 H Volume Immature 1.200 H Granulocytes % Neutrophils % 76.3 Lymphocytes % 7.0 L Monocytes % 10.5 Eosinophils % 4.6 Basophils % 0.4 Nucleated Red 0.0 Blood Cells % Immature 0.100 H Granulocytes # Neutrophils # 6.2 Lymphocytes # 0.6 L Monocytes # 0.9 Eosinophils # 0.4 Basophils # 0.0 Nucleated Red 0.0 Blood Cells # Sodium Level 134 L Potassium Level 4.1 Chloride Level 100 Carbon Dioxide 21 Level Anion Gap 13 Blood Urea 69 H Nitrogen Creatinine 4.56 H Est Glomerular Filtrat Rate mL/min Glucose Level 89 # Calcium Level 9.4 Phosphorus Level 4.1 Magnesium Level 1.9 Bedside Glucose 98 96 Medications Medication Current Medications Ondansetron HCl (Zofran Inj) 4 mg Q6H PRN IV NAUSEA/VOMITING Last administered on 08/19/18at 12:55; Admin Dose 4 MG; Start 08/02/18 at 13:00 Diagnostic Test (Pha) (Accu-Chek) 1 ea 02 XX Last administered on 09/02/18at 01:42; Admin Dose 1 EA; Start 08/03/18 at 02:00 Glucose (Glutose) 15 gm Q15M PRN PO DECREASED GLUCOSE; Start 08/02/18 at 13:30 Glucose (Glutose) 22.5 gm Q15M PRN PO DECREASED GLUCOSE; Start 08/02/18 at 13:30 Dextrose (D50w Syringe) 25 ml Q15M PRN IV DECREASED GLUCOSE Last administered on 09/02/18at 03:28; Admin Dose 25 ML; Start 08/02/18 at 13:30 Dextrose (D50w Syringe) 50 ml Q15M PRN IV DECREASED GLUCOSE Last administered on 09/02/18 01:02; Admin Dose 50 ML; Start 08/02/18 at 13:30 Glucagon (Glucagen) 1 mg Q15M PRN IM DECREASED GLUCOSE; Start 08/02/18 at 13:30 Glucose (Glutose) 15 gm Q15M PRN BUCCAL DECREASED GLUCOSE; Start 08/02/18 at 13:30 Cholecalciferol (Vitamin D) 1,000 unit DAILY PO Last administered on 09/02/18 08:44; Admin Dose 1,000 UNIT; Start 08/03/18 at 09:00 Folic Acid (Folic Acid) 1 mg DAILY PO Last administered on 09/02/18 08:44; Admin Dose 1 MG; Start 08/03/18 at 09:00 Midodrine (Proamatine) 5 mg ON DIALYSIS DAYS PO Last administered on 09/02/18 08:44; Admin Dose 5 MG; Start 08/02/18 at 18:00 Gabapentin (Neurontin) 100 mg DAILY PO Last administered on 08/13/18 09:07; Admin Dose 100 MG; Start 08/07/18 at 11:30; Status Hold Phenol (Cepastat Lozenge) 1 lozenge Q1H PRN MT COUGH Last administered on 08/08/18 02:34; Admin Dose 1 LOZENGE; Start 08/07/18 at 23:00 Heparin Sodium (Porcine) (Heparin (1000 Units/ml)) 6,100 unit AFTER DIALYSIS CATHETER Last administered on 08/30/18 12:51; Admin Dose 6,100 UNIT; Start 08/16/18 at 22:30 Acetaminophen (Tylenol Tab) 650 mg Q6H PRN PO MILD PAIN(1-3)OR ELEVATED TEMP Last administered on 09/01/18 03:40; Admin Dose 325 MG; Start 08/18/18 at 05:30 Levothyroxine Sodium (Synthroid) 50 mcg DAILY@06 PO Last administered on 09/02/18 05:27; Admin Dose 50 MCG; Start 08/20/18 at 06:00 Famotidine (Pepcid) 20 mg DAILY PO Last administered on 09/02/18 08:44; Admin Dose 20 MG; Start 08/21/18 at 09:00 Apixaban (Eliquis) 2.5 mg BID PO Last administered on 08/27/18 21:24; Admin Dose 2.5 MG; Start 08/21/18 at 09:30; Status Hold Diagnostic Test (Pha) (Accu-Chek) 1 ea Q4 XX Last administered on 09/02/18 08:45; Admin Dose 1 EA; Start 08/23/18 at 21:00 Fat Emulsion Intravenous 250 ml @ 21 mls/hr DAILY IV Last administered on 09/01/18 08:21; Admin Dose 21 MLS/HR; Start 08/24/18 at 14:00 Total Parenteral Nutrition 1,000 ml @ 65 mls/hr [id number] IV Last administered on 09/02/18 01:33; Admin Dose 65 MLS/HR; Start 08/24/18 at 16:00 Albumin Human 100 ml @ 100 mls/hr WITH DIALYSIS PRN IV SBP <90 DURING DIALYSIS Last administered on 08/30/18 10:41; Admin Dose 100 MLS/HR; Start 08/26/18 at 08:30 Insulin Aspart (Novolog Insulin Pen) NOVOLOG *MODERATE* ALGORITHM Q4 SC Last administered on 08/31/18 13:30; Admin Dose 2 UNIT; Start 08/27/18 at 13:00 Fluticasone Propionate (Flonase 0.05% Nasal) 1 spray BID NASAL Last administered on 09/02/18 08:45; Admin Dose 1 SPRAY; Start 08/28/18 at 21:00; Stop 08/26/19 at 22:00 Albuterol/ Ipratropium (Duoneb) 3 ml Q6HWA RESP THERAPY HHN Last administered on 09/02/18 07:35; Admin Dose 3 ML; Start 08/28/18 at 20:00 Albuterol/ Ipratropium (Duoneb) 3 ml Q2H RESP THERAPY PRN HHN shortness of breath; Start 08/28/18 at 19:00 Loperamide HCl (Imodium Cap) 4 mg BID PO Last administered on 09/02/18 09:50; Admin Dose 4 MG; Start 08/31/18 at 21:00 Ferrous Sulfate (Ferrous Sulfate (Ec)) 325 mg BID PO Last administered on 09/02/18 08:44; Admin Dose 325 MG; Start 08/31/18 at 21:00 Norepinephrine 250 ml @ 1.875 mls/ hr TITRATE IV Last administered on 09/01/18at 12:39; Admin Dose 3.75 MLS/HR; Start 09/01/18 at 11:00 Vancomycin HCl (Vanco Iv Per Pharmacy) VANCOMYCIN PER PHARMACY PER PROTOCOL XX ; Start 09/01/18 at 11:30 Metronidazole 100 ml @ 100 mls/hr Q8 IVPB Last administered on 09/02/18at 05:27; Admin Dose 100 MLS/HR; Start 09/01/18 at 14:00 Levofloxacin/ Dextrose 50 ml @ 50 mls/hr Q48H IVPB Last administered on 09/01/18at 12:21; Admin Dose 50 MLS/HR; Start 09/01/18 at 12:00 Insulin Glargine (Lantus) 25 units BID@0800,2000 SC ; Start 09/01/18 at 20:00; Status Hold Dextrose 1,000 ml @ 40 mls/hr Q24H IV Last administered on 09/02/18at 02:26; Admin Dose 40 MLS/HR; Start 09/02/18 at 02:00 Loratadine (Claritin) 10 mg Q48H NGT Last administered on 09/02/18at 08:55; Admin Dose 10 MG; Start 09/02/18 at 08:30; Stop 09/11/18 at 23:59 JAGUAR CARTWRIGHT M.D. Sep 02, 2018 09:59
[2018-09-02] MEDS: FAT EMULSION 20% 250 ML IV SCH (11:27)
--- NOTE | 2018-09-02 11:27 | CONS ---
Assessment/Plan Assessment/Plan Hospital Course (Demo Recall) No acute changes overnight. Patient is awake in hemodialysis, family at bedside, no fevers overnight. WBC today 8.1 H&H 7 and 23.6 platelets 134 Antimicrobials: Flagyl, Vanco, Levaquin Indwelling: Right IJ triple-lumen catheter, right femoral Horacio, left upper extremity AV graft or fistula Physical examination: Chronically ill-appearing elderly man who is noncommunicative in no distress. Head atraumatic normocephalic. Sclera nonicteric. Neck is supple, chest rise symmetrical. Heart: S1-S2. Abdomen soft bowel sounds present. Extremities without cyanosis. 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 ESRD/HD Clotted LUE AVF R brachial DVT DM CAD/PPM R fem horacio Plan: Stable, will repeat cultures Consultation Date/Type/Reason Admit Date/Time Aug 02, 2018 at 10:57 Initial Consult Date 08/09/18 Type of Consult id Requesting Provider: DULCE GALINDO Date/Time of Note DATE: 09/02/18 TIME: 11:26 Exam/Review of Systems Exam Vitals Vital Signs Date Temp Pulse Resp B/P (MAP) Pulse Ox O2 O2 Flow FiO2 Time Delivery Rate 09/02/18 91 09:35 09/02/18 13 105/54 100 Nasal 2.0 09:17 (71) Cannula 09/02/18 98.3 08:00 Intake and Output 09/01/18 09/01/18 09/02/18 1414:59 22:59 06:59 IntakeIntake Total 702.580 ml 1101.795 ml 663.75 ml OutputOutput Total 200 ml 225 ml BalanceBalance 702.580 ml 901.795 ml 438.75 ml Results Result Diagram: 09/02/18 0400 09/02/18 0400 Results 24hrs Laboratory Tests Test 09/01/18 12:01 09/01/18 12:05 09/01/18 12:08 09/01/18 12:23 Bedside Glucose 35 *L 32 *L 142 Glucose Level 30 *L Test 09/01/18 13:00 09/01/18 13:22 09/01/18 14:29 09/01/18 15:29 Blood Gas Blood arterial Specimen Source Arterial Blood 09/01/2018 3:05:0 Date Drawn 3 PM Arterial Blood pH 7.355 (Temp corrected) Arterial Blood 34.9 L pCO2 (Temp correct) Arterial Blood 129.5 H pO2 (Temp corrected) Arterial Blood 19.1 L HCO3 Arterial Blood -5.9 L Base Excess Arterial Blood 98.1 Oxygen Saturation Robbie Test ACCEPTAB Arterial Blood Right Brachial Gas Puncture Site Arterial 0.8 Blood Carboxyhemo globin Arterial Blood 0.1 Methemoglobin Blood Gas A-a O2 43.4 H Differential Oxyhemoglobin 97.2 Percent Blood Gas 37.0 Temperature Blood Gas NASAL CANNULA Modality FiO2 30.0 Blood Gas MDA Notified Whom Blood Gas 09/01/2018 3:10:4 Notified Time 1 PM Bedside Glucose 99 94 108 Test 09/01/18 16:38 09/01/18 17:33 09/01/18 18:45 09/01/18 19:09 Bedside Glucose 75 73 68 L 112 Test 09/01/18 20:12 09/02/18 00:59 09/02/18 01:19 09/02/18 01:41 Bedside Glucose 81 30 *L 105 82 Test 09/02/18 03:23 09/02/18 03:47 09/02/18 03:59 09/02/18 04:00 Bedside Glucose 60 L 97 89 White Blood Count 8.1 Red Blood Count 2.43 L Hemoglobin 7.0 L Hematocrit 23.6 L Mean Corpuscular 97.1 Volume Mean Corpuscular 28.8 L Hemoglobin Mean Corpuscular 29.7 L Hemoglobin Concen t Red Cell 16.8 H Distribution Width Platelet Count 134 L Mean Platelet 12.3 H Volume Immature 1.200 H Granulocytes % Neutrophils % 76.3 Lymphocytes % 7.0 L Monocytes % 10.5 Eosinophils % 4.6 Basophils % 0.4 Nucleated Red 0.0 Blood Cells % Immature 0.100 H Granulocytes # Neutrophils # 6.2 Lymphocytes # 0.6 L Monocytes # 0.9 Eosinophils # 0.4 Basophils # 0.0 Nucleated Red 0.0 Blood Cells # Sodium Level 134 L Potassium Level 4.1 Chloride Level 100 Carbon Dioxide 21 Level Anion Gap 13 Blood Urea 69 H Nitrogen Creatinine 4.56 H Est Glomerular Filtrat Rate mL/min Glucose Level 89 # Calcium Level 9.4 Phosphorus Level 4.1 Magnesium Level 1.9 Test 09/02/18 04:56 09/02/18 08:51 Bedside Glucose 98 96 Medications Medication Current Medications Ondansetron HCl (Zofran Inj) 4 mg Q6H PRN IV NAUSEA/VOMITING Last administered on 08/19/18 12:55; Admin Dose 4 MG; Start 08/02/18 at 13:00 Diagnostic Test (Pha) (Accu-Chek) 1 ea 02 XX Last administered on 09/02/18 01:42; Admin Dose 1 EA; Start 08/03/18 at 02:00 Glucose (Glutose) 15 gm Q15M PRN PO DECREASED GLUCOSE; Start 08/02/18 at 13:30 Glucose (Glutose) 22.5 gm Q15M PRN PO DECREASED GLUCOSE; Start 08/02/18 at 13:30 Dextrose (D50w Syringe) 25 ml Q15M PRN IV DECREASED GLUCOSE Last administered on 09/02/18 03:28; Admin Dose 25 ML; Start 08/02/18 at 13:30 Dextrose (D50w Syringe) 50 ml Q15M PRN IV DECREASED GLUCOSE Last administered on 09/02/18 01:02; Admin Dose 50 ML; Start 08/02/18 at 13:30 Glucagon (Glucagen) 1 mg Q15M PRN IM DECREASED GLUCOSE; Start 08/02/18 at 13:30 Glucose (Glutose) 15 gm Q15M PRN BUCCAL DECREASED GLUCOSE; Start 08/02/18 at 13:30 Cholecalciferol (Vitamin D) 1,000 unit DAILY PO Last administered on 09/02/18 08:44; Admin Dose 1,000 UNIT; Start 08/03/18 at 09:00 Folic Acid (Folic Acid) 1 mg DAILY PO Last administered on 09/02/18 08:44; Admin Dose 1 MG; Start 08/03/18 at 09:00 Midodrine (Proamatine) 5 mg ON DIALYSIS DAYS PO Last administered on 09/02/18 08:44; Admin Dose 5 MG; Start 08/02/18 at 18:00 Gabapentin (Neurontin) 100 mg DAILY PO Last administered on 08/13/18 09:07; Admin Dose 100 MG; Start 08/07/18 at 11:30; Status Hold Phenol (Cepastat Lozenge) 1 lozenge Q1H PRN MT COUGH Last administered on 08/08/18 02:34; Admin Dose 1 LOZENGE; Start 08/07/18 at 23:00 Heparin Sodium (Porcine) (Heparin (1000 Units/ml)) 6,100 unit AFTER DIALYSIS CATHETER Last administered on 08/30/18 12:51; Admin Dose 6,100 UNIT; Start 08/16/18 at 22:30 Acetaminophen (Tylenol Tab) 650 mg Q6H PRN PO MILD PAIN(1-3)OR ELEVATED TEMP Last administered on 09/01/18 03:40; Admin Dose 325 MG; Start 08/18/18 at 05:30 Levothyroxine Sodium (Synthroid) 50 mcg DAILY@06 PO Last administered on 05:27; Admin Dose 50 MCG; Start 08/20/18 at 06:00 Famotidine (Pepcid) 20 mg DAILY PO Last administered on 09/02/18 08:44; Admin Dose 20 MG; Start 08/21/18 at 09:00 Apixaban (Eliquis) 2.5 mg BID PO Last administered on 08/27/18 21:24; Admin Dose 2.5 MG; Start 08/21/18 at 09:30; Status Hold Diagnostic Test (Pha) (Accu-Chek) 1 ea Q4 XX Last administered on 09/02/18 08:45; Admin Dose 1 EA; Start 08/23/18 at 21:00 Fat Emulsion Intravenous 250 ml @ 21 mls/hr DAILY IV Last administered on 08/16 08:21; Admin Dose 21 MLS/HR; Start 08/24/18 at 14:00 Total Parenteral Nutrition 1,000 ml @ 65 mls/hr [id number] IV Last administered on 09/02/18 01:33; Admin Dose 65 MLS/HR; Start 08/24/18 at 16:00 Albumin Human 100 ml @ 100 mls/hr WITH DIALYSIS PRN IV SBP <90 DURING DIALYSIS Last administered on 08/30/18 10:41; Admin Dose 100 MLS/HR; Start 08/26/18 at 08:30 Insulin Aspart (Novolog Insulin Pen) NOVOLOG *MODERATE* ALGORITHM Q4 SC Last administered on 08/31/18 13:30; Admin Dose 2 UNIT; Start 08/27/18 at 13:00 Fluticasone Propionate (Flonase 0.05% Nasal) 1 spray BID NASAL Last administ ered on 09/02/18 08:45; Admin Dose 1 SPRAY; Start 08/28/18 at 21:00; Stop 08/26/19 at 22:00 Albuterol/ Ipratropium (Duoneb) 3 ml Q6HWA RESP THERAPY HHN Last administered on 09/02/18 07:35; Admin Dose 3 ML; Start 08/28/18 at 20:00 Albuterol/ Ipratropium (Duoneb) 3 ml Q2H RESP THERAPY PRN HHN shortness of breath; Start 08/28/18 at 19:00 Loperamide HCl (Imodium Cap) 4 mg BID PO Last administered on 09/02/18 09:50; Admin Dose 4 MG; Start 08/31/18 at 21:00 Ferrous Sulfate (Ferrous Sulfate (Ec)) 325 mg BID PO Last administered on 09/02/18 08:44; Admin Dose 325 MG; Start 08/31/18 at 21:00 Norepinephrine 250 ml @ 1.875 mls/ hr TITRATE IV Last administered on 09/01/18 12:39; Admin Dose 3.75 MLS/HR; Start 09/01/18 at 11:00 Vancomycin HCl (Vanco Iv Per Pharmacy) VANCOMYCIN PER PHARMACY PER PROTOCOL XX ; Start 09/01/18 at 11:30 Metronidazole 100 ml @ 100 mls/hr Q8 IVPB Last administered on 09/02/18 05:27; Admin Dose 100 MLS/HR; Start 09/01/18 at 14:00 Levofloxacin/ Dextrose 50 ml @ 50 mls/hr Q48H IVPB Last administered on 09/01/18 12:21; Admin Dose 50 MLS/HR; Start 09/01/18 at 12:00 Insulin Glargine (Lantus) 25 units BID@0800,2000 SC ; Start 09/01/18 at 20:00; Status Hold Dextrose 1,000 ml @ 40 mls/hr Q24H IV Last administered on 09/02/18 02:26; Admin Dose 40 MLS/HR; Start 09/02/18 at 02:00 Loratadine (Claritin) 10 mg Q48H NGT Last administered on 09/02/18at 08:55; Adm in Dose 10 MG; Start 09/02/18 at 08:30; Stop 09/11/18 at 23:59 CHIN FORD NP Sep 02, 2018 11:27
[2018-09-02] MEDS: HEPARIN 1000 UNITS/ML 10 ML INJ CATHETER SCH (12:09)
[2018-09-02] MEDS: NORepinephrine 8MG/250 ML (PMX 250 ML IV SCH (13:24)
[2018-09-02] MEDS ORDERED: MAGNESIUM SULFATE 1 GM/D5W 100 ML IVPB SCH (13:30)
[2018-09-03] VITALS (24 sets, daily range): BP systolic 121–153; BP diastolic 50–110; PULSE 70–99; RESP 14–30
[2018-09-03] MEDS: INSULIN ASPART [NOVOLOG] 3 ML PEN SC SCH ×6 (01:16→21:33)
[2018-09-03] MEDS: ACCU-CHEK XX SCH ×7 (01:17→21:00)
[2018-09-03] MEDS: metroNIDAZOLE 500 MG/NS (PMX) 100 ML IVPB SCH ×3 (05:08→22:57)
[2018-09-03] MEDS: LEVOTHYROXINE 50 MCG TAB PO SCH (05:08)
--- NOTE | 2018-09-03 07:41 | PN ---
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 Other findings at the time of surgery include mild to moderate ascites, and fine, nodularity of the liver - cirrhosis?-, and inflammation extending from the transverse colon mesentary to the pancreas, which felt firm). Decision to have the next dialysis as per nephrology. 3 Pt is on O2 ( 2 l/min) , and on Levophed. He is due to have dialysis this am at 0800. Stable but still critical 3 Pt is w/o nausea, tolerating some liquids, and says he is passing some gas.Pt does not move well which was also the case pre-op but persists due to post op pain. 3 POD #6 doing well. Path shows T3N0 adenocarcinoma, and T4N0 GIST w/ 1 tumor implant 3 POD #8 Still confused, eats when prompted, not ambulating well 3 POD #9 Pt has an entero-cutaneous fistula. WBC is sl elevated from yesterday 3 POD #12 Stable fistula. Normal wbc, low albumin. TPN is in place 3 POD #13 400 cc of stool per fistula overnight ( 1300 in 24 hrs ? - unclear). TPN is ongoing. Pt is stable w/ good labs 3 POD #14 300 cc of stool now more bilious as the stool becomes mostly enteric secretions. TPN. Dialysis today 3 POD #16 550 cc over 24 hrs, and thick liquid , and no gas overnight. VSS, and normal wbc 3 POD #17 600 -900 cc of dark liquid stool and gas. VSS. Anemic and normal wbc. No ANTB x 2 days 3 POD #18 Liquid dark, greenish stool ( 600-900), low BP, anemia, and normal wbc. No sign of sepsis 09/03/18 POD #20 Fistula output is dropping. BP is stable off of pressors x 12 hrs. Normal wbc Assessment/Plan Continue TPN to effect closure of fistula Subjective 24 Hr Interval Summary Pt is no longer on pressors, still on TPN. He has had a total of 380 cc of fistula output in the last 24 hrs ( 200 during the day and 180 overnight). Difficulty speaking this am, but has no complaints Subjective hx not possible: pt non-verbal Feeding: NPO Pain Control: well controlled Exam/Review of Systems Vital Signs Vitals Vital Signs Date Temp Pulse Resp B/P (MAP) Pulse Ox O2 O2 Flow FiO2 Time Delivery Rate 09/03/18 97 27 147/61 95 Room Air 06:00 (89) 09/03/18 98.6 04:00 09/03/18 21 03:49 09/02/18 2.0 10:00 Intake and Output 09/02/18 09/02/18 09/03/18 1515:00 23:00 07:00 IntakeIntake Total 880.25 ml 847.25 ml 490 ml OutputOutput Total 4000 ml 200 ml 180 ml BalanceBalance -3119.75 ml 647.25 ml 310 ml Exam Constitutional: oriented (x2) Gastrointestinal: soft, non-tender Results Result Diagram: 09/03/18 0455 09/03/18 0430 GONZÁLEZ MERIDA MD Sep 03, 2018 07:41
[2018-09-03] MEDS: TPN 1,000 ML IV SCH ×2 (07:48→22:56)
[2018-09-03] MEDS: ALBUTEROL/IPRATROPIUM (NEB) 3 ML AMP HHN SCH ×3 (10:30→21:14)
[2018-09-03] MEDS: FOLIC ACID 1 MG TAB PO SCH (10:33)
[2018-09-03] MEDS: FERROUS SULFATE (EC) 325 MG TAB PO SCH ×2 (10:33→21:29)
[2018-09-03] MEDS: FAMOTIDINE 20 MG TAB PO SCH (10:33)
[2018-09-03] MEDS: LOPERAMIDE 2 MG CAP PO SCH ×2 (10:34→21:29)
[2018-09-03] MEDS: CHOLECALCIFEROL 1,000 UNIT TAB PO SCH (10:34)
[2018-09-03] MEDS: FLUTICASONE 0.05% 16 GM NAS SPRAY NASAL SCH (10:35)
[2018-09-03] MEDS: FAT EMULSION 20% 250 ML IV SCH (10:35)
[2018-09-03] MEDS: BALSAM PERU/CASTOR OIL 60 GM TUBE TOP SCH (10:36)
--- NOTE | 2018-09-03 11:01 | CONS ---
Assessment/Plan Assessment/Plan Hospital Course (Demo Recall) #Adenocarcinoma of ascending Colon ca -final pathology report reveals 2 separate masses with different pathology results. -the ascending colon mass is consistent with a Moderately-differentiated adenocarcinoma, invading through the muscularis propria, with all 0/18 negative for disease, 3.6 x 2.8 x 1.1 cm. -the splenic flexture mass is 10.5 x 9.0 x 7.0 cm.and consistent with a high grade GIST tumor -CT does not reveal evidence of distant mets -in terms of the adenocarcinoma, pt does not need adjuvant chemotherapy given this was a stage IIA tumor. 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 he is now on D 10 #Hypothyroidism - Continue Synthroid #Nonischemic CM - pacer in place - nonchronic Thank you for the opportunity to participate in this patients care A total of 40 minutes of face to face time was spent speaking with the patient, of which greater than 50% was spent in counseling and coordination of care and the detailed question and answer session. Consultation Date/Type/Reason Admit Date/Time Aug 02, 2018 at 10:57 Initial Consult Date 08/09/18 Type of Consult oncology Reason for Consultation colon cancer Requesting Provider: DULCE GALINDO Date/Time of Note DATE: 09/03/18 TIME: 10:59 24 HR Interval Summary Free Text/Dictation pt currently off pressor support. confused. still with stool coming from enterocutaneous fistula Exam/Review of Systems Exam Vitals Vital Signs Date Temp Pulse Resp B/P (MAP) Pulse Ox O2 O2 Flow FiO2 Time Delivery Rate 09/03/18 96 22 95 21 10:30 09/03/18 97.9 07:43 09/03/18 145/65 07:30 (91) 09/03/18 Room Air 06:00 09/02/18 2.0 10:00 Intake and Output 09/02/18 09/02/18 09/03/18 1515:00 23:00 07:00 IntakeIntake Total 880.25 ml 847.25 ml 490 ml OutputOutput Total 4000 ml 200 ml 180 ml BalanceBalance -3119.75 ml 647.25 ml 310 ml Constitutional: alert, oriented Psych: no complaints Head: normocephalic Eyes: nl conjunctiva ENMT: nl external ears & nose Neck: supple Respiratory: clear to auscultation Cardiovascular: regular rate and rhythm Gastrointestinal: other (enterocutaneous fistula ) Musculoskeletal: nl extremities to inspection Results Result Diagram: 09/03/18 0455 09/03/18 0430 Results 24hrs Laboratory Tests Test 09/02/18 13:12 09/02/18 14:44 09/02/18 17:04 09/02/18 21:15 Bedside Glucose 72 83 107 169 Test 09/03/18 01:14 09/03/18 04:30 09/03/18 04:44 09/03/18 04:55 Bedside Glucose 246 H Sodium Level 132 L Potassium Level 3.7 Chloride Level 102 Carbon Dioxide 21 Level Anion Gap 9 Blood Urea 54 H Nitrogen Creatinine 3.69 H Est Glomerular Filtrat Rate mL/min Glucose Level 251 #H Calcium Level 9.2 Phosphorus Level 2.8 Magnesium Level 2.0 Random Vancomycin 12.1 Level White Blood Count 6.2 # Red Blood Count 2.96 #L Hemoglobin 8.6 #L Hematocrit 27.2 L Mean Corpuscular 91.9 Volume Mean Corpuscular 29.1 Hemoglobin Mean Corpuscular 31.6 L Hemoglobin Concen t Red Cell 18.0 H Distribution Width Platelet Count 145 Mean Platelet 12.3 H Volume Immature 1.300 H Granulocytes % Neutrophils % Segmented 47 Neutrophils % (Manual) Band Neutrophils 23 H % (Manual) Lymphocytes % Lymphocytes % 12 L (Manual) Reactive 1 H Lymphocytes % (Manual) Monocytes % Monocytes % 10 (Manual) Eosinophils % Eosinophils % 5 (Manual) Basophils % Metamyelocytes % 1 H (manual) Promyelocytes % 1 H (Manual) Nucleated Red 0.0 Blood Cells % Immature 0.080 H Granulocytes # Neutrophils # Neutrophils # 3.0 (Manual) Band Neutrophils 1.4 H # Lymphocytes 0.7 L (Manual) Lymphocytes # Reactive 0.0 Lymphocytes # Monocytes # Monocytes # 0.6 (Manual) Eosinophils # Basophils # Metamyelocytes # 0.0 Promyelocytes # 0.0 Nucleated Red Blood Cells # Platelet Estimate NORMAL Polychromasia 3+ Anisocytosis 1+ Test 09/03/18 05:03 09/03/18 05:05 09/03/18 10:25 Lab Scanned BLOOD TRANSFUSIO Report N Bedside Glucose 260 H 316 H Medications Medication Current Medications Ondansetron HCl (Zofran Inj) 4 mg Q6H PRN IV NAUSEA/VOMITING Last administered on 08/19/18 12:55; Admin Dose 4 MG; Start 08/02/18 at 13:00 Diagnostic Test (Pha) (Accu-Chek) 1 ea 02 XX Last administered on 09/03/18 01:17; Admin Dose 1 EA; Start 08/03/18 at 02:00 Glucose (Glutose) 15 gm Q15M PRN PO DECREASED GLUCOSE; Start 08/02/18 at 13:30 Glucose (Glutose) 22.5 gm Q15M PRN PO DECREASED GLUCOSE; Start 08/02/18 at 13:30 Dextrose (D50w Syringe) 25 ml Q15M PRN IV DECREASED GLUCOSE Last administered on 09/02/18at 03:28; Admin Dose 25 ML; Start 08/02/18 at 13:30 Dextrose (D50w Syringe) 50 ml Q15M PRN IV DECREASED GLUCOSE Last administered on 09/02/18at 01:02; Admin Dose 50 ML; Start 08/02/18 at 13:30 Glucagon (Glucagen) 1 mg Q15M PRN IM DECREASED GLUCOSE; Start 08/02/18 at 13:30 Glucose (Glutose) 15 gm Q15M PRN BUCCAL DECREASED GLUCOSE; Start 08/02/18 at 13:30 Cholecalciferol (Vitamin D) 1,000 unit DAILY PO Last administered on 09/03/18 10:34; Admin Dose 1,000 UNIT; Start 08/03/18 at 09:00 Folic Acid (Folic Acid) 1 mg DAILY PO Last administered on 09/03/18 10:33; Admin Dose 1 MG; Start 08/03/18 at 09:00 Midodrine (Proamatine) 5 mg ON DIALYSIS DAYS PO Last administered on 09/02/18 08:44; Admin Dose 5 MG; Start 08/02/18 at 18:00 Gabapentin (Neurontin) 100 mg DAILY PO Last administered on 08/13/18 09:07; Admin Dose 100 MG; Start 08/07/18 at 11:30; Status Hold Phenol (Cepastat Lozenge) 1 lozenge Q1H PRN MT COUGH Last administered on 08/08/18 02:34; Admin Dose 1 LOZENGE; Start 08/07/18 at 23:00 Heparin Sodium (Porcine) (Heparin (1000 Units/ml)) 6,100 unit AFTER DIALYSIS CATHETER Last administered on 09/02/18 12:09; Admin Dose 6,100 UNIT; Start 08/16/18 at 22:30 Acetaminophen (Tylenol Tab) 650 mg Q6H PRN PO MILD PAIN(1-3)OR ELEVATED TEMP Last administered on 09/01/18 03:40; Admin Dose 325 MG; Start 08/18/18 at 05:30 Levothyroxine Sodium (Synthroid) 50 mcg DAILY@06 PO Last administered on 09/03/18 05:08; Admin Dose 50 MCG; Start 08/20/18 at 06:00 Famotidine (Pepcid) 20 mg DAILY PO Last administered on 09/03/18 10:33; Admin Dose 20 MG; Start 08/21/18 at 09:00 Apixaban (Eliquis) 2.5 mg BID PO Last administered on 08/27/18 21:24; Admin Dose 2.5 MG; Start 08/21/18 at 09:30; Status Hold Diagnostic Test (Pha) (Accu-Chek) 1 ea Q4 XX Last administered on 09/03/18 10:30; Admin Dose 1 EA; Start 08/23/18 at 21:00 Fat Emulsion Intravenous 250 ml @ 21 mls/hr DAILY IV Last administered on 09/03/18 10:35; Admin Dose 21 MLS/HR; Start 08/24/18 at 14:00 Total Parenteral Nutrition 1,000 ml @ 65 mls/hr [id number] IV Last administered on 09/03/18 07:48; Admin Dose 65 MLS/HR; Start 08/24/18 at 16:00 Albumin Human 100 ml @ 100 mls/hr WITH DIALYSIS PRN IV SBP <90 DURING DIALYSIS Last administered on 08/30/18 10:41; Admin Dose 100 MLS/HR; Start 08/26/18 at 08:30 Insulin Aspart (Novolog Insulin Pen) NOVOLOG *MODERATE* ALGORITHM Q4 SC Last administered on 09/03/18 10:43; Admin Dose 10 UNIT; Start 08/27/18 at 13:00 Fluticasone Propionate (Flonase 0.05% Nasal) 1 spray BID NASAL Last administered on 09/03/18 10:35; Admin Dose 1 SPRAY; Start 08/28/18 at 21:00; Stop 08/26/19 at 22:00 Albuterol/ Ipratropium (Duoneb) 3 ml Q6HWA RESP THERAPY HHN Last administered on 09/03/18 10:30; Admin Dose 3 ML; Start 08/28/18 at 20:00 Albuterol/ Ipratropium (Duoneb) 3 ml Q2H RESP THERAPY PRN HHN shortness of breath; Start 08/28/18 at 19:00 Loperamide HCl (Imodium Cap) 4 mg BID PO Last administered on 09/03/18 10:34; Admin Dose 4 MG; Start 08/31/18 at 21:00 Ferrous Sulfate (Ferrous Sulfate (Ec)) 325 mg BID PO Last administered on 09/03/18 10:33; Admin Dose 325 MG; Start 08/31/18 at 21:00 Norepinephrine 250 ml @ 1.875 mls/ hr TITRATE IV Last administered on 09/02/18 13:24; Admin Dose 3.75 MLS/HR; Start 09/01/18 at 11:00 Vancomycin HCl (Vanco Iv Per Pharmacy) VANCOMYCIN PER PHARMACY PER PROTOCOL XX ; Start 09/01/18 at 11:30 Metronidazole 100 ml @ 100 mls/hr Q8 IVPB Last administered on 09/03/18 05:08; Admin Dose 100 MLS/HR; Start 09/01/18 at 14:00 Levofloxacin/ Dextrose 50 ml @ 50 mls/hr Q48H IVPB Last administered on 09/01/18 12:21; Admin Dose 50 MLS/HR; Start 09/01/18 at 12:00 Insulin Glargine (Lantus) 25 units BID@0800,2000 SC ; Start 09/01/18 at 20:00; Status Hold Loratadine (Claritin) 10 mg Q48H NGT Last administered on 09/02/18at 08:55; Admin Dose 10 MG; Start 09/02/18 at 08:30; Stop 09/11/18 at 23:59 Vancomycin HCl 250 ml @ 125 mls/hr ONCE ONCE IVPB ; Start 09/03/18 at 16:00; Stop 09/03/18 at 17:59 JAGUAR CARTWRIGHT M.D. Sep 03, 2018 11:01
--- NOTE | 2018-09-03 11:31 | CONS ---
Assessment/Plan Assessment/Plan Assessment/Plan (Daily) 1 End-stage renal disease, on hemodialysis, mwf with mild CHF 2. 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 Hypotension. On Midodrine at home now worsening acne secondary to worsening anemia/sepsis 4. History of congestive heart failure.1 End-stage renal disease, on hemodialysis,mwf with mild CHF 5. Hypercholesterolemia. 6. Hx of total hip replacement. 7. leucocytosis, off pressor and trending down leukocytosis 8. Hypoglycemia. 9. Macrocytic hypochromic Anemia mixed etiology, recent blood loss and 2/2 kidney disease 10. 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% 12 Clotted left arm AV graft 13 b/lateral lower extremity edema plan -HD MWF> HD tomorrow with more volume removal if blood pressure tolerates -Patient is edematous, will require more volume removal however is limited we are limited because of blood pressure -TPN per surgery -Renally dose dose all meds - avoid nephrotoxins Consultation Date/Type/Reason Admit Date/Time Aug 02, 2018 at 10:57 Initial Consult Date 08/03/18 Requesting Provider: DULCE GALINDO Date/Time of Note DATE: 09/03/18 TIME: 11:31 24 HR Interval Summary Free Text/Dictation HD yesterday with removal of 2 L Is much more awake today Exam/Review of Systems Exam Vitals Vital Signs Date Temp Pulse Resp B/P (MAP) Pulse Ox O2 O2 Flow FiO2 Time Delivery Rate 09/03/18 96 22 95 21 10:30 09/03/18 97.9 07:43 09/03/18 145/65 07:30 (91) 09/03/18 Room Air 06:00 09/02/18 2.0 10:00 Intake and Output 09/02/18 09/02/18 09/03/18 1515:00 23:00 07:00 IntakeIntake Total 880.25 ml 847.25 ml 490 ml OutputOutput Total 4000 ml 200 ml 180 ml BalanceBalance -3119.75 ml 647.25 ml 310 ml Exam Neck: supple Respiratory: clear to auscultation Cardiovascular: regular rate and rhythm, edema Abdomen: bag+, TTP Extremities: other (++) Results Result Diagram: 09/03/18 0455 09/03/18 0430 Results 24hrs Laboratory Tests Test 09/02/18 13:12 09/02/18 14:44 09/02/18 17:04 09/02/18 21:15 Bedside Glucose 72 83 107 169 Test 09/03/18 01:14 09/03/18 04:30 09/03/18 04:44 09/03/18 04:55 Bedside Glucose 246 H Sodium Level 132 L Potassium Level 3.7 Chloride Level 102 Carbon Dioxide 21 Level Anion Gap 9 Blood Urea 54 H Nitrogen Creatinine 3.69 H Est Glomerular Filtrat Rate mL/min Glucose Level 251 #H Calcium Level 9.2 Phosphorus Level 2.8 Magnesium Level 2.0 Random Vancomycin 12.1 Level White Blood Count 6.2 # Red Blood Count 2.96 #L Hemoglobin 8.6 #L Hematocrit 27.2 L Mean Corpuscular 91.9 Volume Mean Corpuscular 29.1 Hemoglobin Mean Corpuscular 31.6 L Hemoglobin Concen t Red Cell 18.0 H Distribution Width Platelet Count 145 Mean Platelet 12.3 H Volume Immature 1.300 H Granulocytes % Neutrophils % Segmented 47 Neutrophils % (Manual) Band Neutrophils 23 H % (Manual) Lymphocytes % Lymphocytes % 12 L (Manual) Reactive 1 H Lymphocytes % (Manual) Monocytes % Monocytes % 10 (Manual) Eosinophils % Eosinophils % 5 (Manual) Basophils % Metamyelocytes % 1 H (manual) Promyelocytes % 1 H (Manual) Nucleated Red 0.0 Blood Cells % Immature 0.080 H Granulocytes # Neutrophils # Neutrophils # 3.0 (Manual) Band Neutrophils 1.4 H # Lymphocytes 0.7 L (Manual) Lymphocytes # Reactive 0.0 Lymphocytes # Monocytes # Monocytes # 0.6 (Manual) Eosinophils # Basophils # Metamyelocytes # 0.0 Promyelocytes # 0.0 Nucleated Red Blood Cells # Platelet Estimate NORMAL Polychromasia 3+ Anisocytosis 1+ Test 09/03/18 05:03 09/03/18 05:05 09/03/18 10:25 Lab Scanned BLOOD TRANSFUSIO Report N Bedside Glucose 260 H 316 H Medications Medication Current Medications Ondansetron HCl (Zofran Inj) 4 mg Q6H PRN IV NAUSEA/VOMITING Last administered on 08/19/18at 12:55; Admin Dose 4 MG; Start 08/02/18 at 13:00 Diagnostic Test (Pha) (Accu-Chek) 1 ea 02 XX Last administered on 09/03/18 01:17; Admin Dose 1 EA; Start 08/03/18 at 02:00 Glucose (Glutose) 15 gm Q15M PRN PO DECREASED GLUCOSE; Start 08/02/18 at 13:30 Glucose (Glutose) 22.5 gm Q15M PRN PO DECREASED GLUCOSE; Start 08/02/18 at 13:30 Dextrose (D50w Syringe) 25 ml Q15M PRN IV DECREASED GLUCOSE Last administered on 09/02/18 03:28; Admin Dose 25 ML; Start 08/02/18 at 13:30 Dextrose (D50w Syringe) 50 ml Q15M PRN IV DECREASED GLUCOSE Last administered on 09/02/18 01:02; Admin Dose 50 ML; Start 08/02/18 at 13:30 Glucagon (Glucagen) 1 mg Q15M PRN IM DECREASED GLUCOSE; Start 08/02/18 at 13:30 Glucose (Glutose) 15 gm Q15M PRN BUCCAL DECREASED GLUCOSE; Start 08/02/18 at 13:30 Cholecalciferol (Vitamin D) 1,000 unit DAILY PO Last administered on 09/03/18 10:34; Admin Dose 1,000 UNIT; Start 08/03/18 at 09:00 Folic Acid (Folic Acid) 1 mg DAILY PO Last administered on 09/03/18 10:33; Admin Dose 1 MG; Start 08/03/18 at 09:00 Midodrine (Proamatine) 5 mg ON DIALYSIS DAYS PO Last administered on 09/02/18 08:44; Admin Dose 5 MG; Start 08/02/18 at 18:00 Gabapentin (Neurontin) 100 mg DAILY PO Last administered on 08/13/18 09:07; Admin Dose 100 MG; Start 08/07/18 at 11:30; Status Hold Phenol (Cepastat Lozenge) 1 lozenge Q1H PRN MT COUGH Last administered on 08/08/18 02:34; Admin Dose 1 LOZENGE; Start 08/07/18 at 23:00 Heparin Sodium (Porcine) (Heparin (1000 Units/ml)) 6,100 unit AFTER DIALYSIS CATHETER Last administered on 09/02/18at 12:09; Admin Dose 6,100 UNIT; Start 08/16/18 at 22:30 Acetaminophen (Tylenol Tab) 650 mg Q6H PRN PO MILD PAIN(1-3)OR ELEVATED TEMP Last administered on 09/01/18 03:40; Admin Dose 325 MG; Start 08/18/18 at 05:30 Levothyroxine Sodium (Synthroid) 50 mcg DAILY@06 PO Last administered on 09/03/18 05:08; Admin Dose 50 MCG; Start 08/20/18 at 06:00 Famotidine (Pepcid) 20 mg DAILY PO Last administered on 09/03/18 10:33; Admin Dose 20 MG; Start 08/21/18 at 09:00 Apixaban (Eliquis) 2.5 mg BID PO Last administered on 08/27/18 21:24; Admin Dose 2.5 MG; Start 08/21/18 at 09:30; Status Hold Diagnostic Test (Pha) (Accu-Chek) 1 ea Q4 XX Last administered on 09/03/18 10:30; Admin Dose 1 EA; Start 08/23/18 at 21:00 Fat Emulsion Intravenous 250 ml @ 21 mls/hr DAILY IV Last administered on 09/03/18 10:35; Admin Dose 21 MLS/HR; Start 08/24/18 at 14:00 Total Parenteral Nutrition 1,000 ml @ 65 mls/hr [id number] IV Last administered on 09/03/18 07:48; Admin Dose 65 MLS/HR; Start 08/24/18 at 16:00 Albumin Human 100 ml @ 100 mls/hr WITH DIALYSIS PRN IV SBP <90 DURING DIALYSIS Last administered on 08/30/18 10:41; Admin Dose 100 MLS/HR; Start 08/26/18 at 08:30 Insulin Aspart (Novolog Insulin Pen) NOVOLOG *MODERATE* ALGORITHM Q4 SC Last administered on 09/03/18 10:43; Admin Dose 10 UNIT; Start 08/27/18 at 13:00 Fluticasone Propionate (Flonase 0.05% Nasal) 1 spray BID NASAL Last administered on 09/03/18 10:35; Admin Dose 1 SPRAY; Start 08/28/18 at 21:00; Stop 08/26/19 at 22:00 Albuterol/ Ipratropium (Duoneb) 3 ml Q6HWA RESP THERAPY HHN Last administered on 09/03/18 10:30; Admin Dose 3 ML; Start 08/28/18 at 20:00 Albuterol/ Ipratropium (Duoneb) 3 ml Q2H RESP THERAPY PRN HHN shortness of breath; Start 08/28/18 at 19:00 Loperamide HCl (Imodium Cap) 4 mg BID PO Last administered on 09/03/18 10:34; Admin Dose 4 MG; Start 08/31/18 at 21:00 Ferrous Sulfate (Ferrous Sulfate (Ec)) 325 mg BID PO Last administered on 09/03/18 10:33; Admin Dose 325 MG; Start 08/31/18 at 21:00 Norepinephrine 250 ml @ 1.875 mls/ hr TITRATE IV Last administered on 09/02/18 13:24; Admin Dose 3.75 MLS/HR; Start 09/01/18 at 11:00 Vancomycin HCl (Vanco Iv Per Pharmacy) VANCOMYCIN PER PHARMACY PER PROTOCOL XX ; Start 09/01/18 at 11:30 Metronidazole 100 ml @ 100 mls/hr Q8 IVPB Last administered on 09/03/18 05:08; Admin Dose 100 MLS/HR; Start 09/01/18 at 14:00 Levofloxacin/ Dextrose 50 ml @ 50 mls/hr Q48H IVPB Last administered on at 12:21; Admin Dose 50 MLS/HR; Start 09/01/18 at 12:00 Insulin Glargine (Lantus) 25 units BID@0800,2000 SC ; Start 09/01/18 at 20:00; Status Hold Loratadine (Claritin) 10 mg Q48H NGT Last administered on 09/02/18at 08:55; Admin Dose 10 MG; Start 09/02/18 at 08:30; Stop 09/11/18 at 23:59 Vancomycin HCl 250 ml @ 125 mls/hr ONCE ONCE IVPB ; Start 09/03/18 at 16:00; Stop 09/03/18 at 17:59 NNEKA FRITZ MD Sep 03, 2018 11:31
--- NOTE | 2018-09-03 13:04 | CONS ---
Assessment/Plan Assessment/Plan Hospital Course (Demo Recall) Patient is awake laying comfortably in bed no fevers overnight. WBC today 6.2 platelets 145 Microbiology: Blood cultures sent 2 days ago negative Antimicrobials: Flagyl, Vanco, Levaquin Indwelling: Right IJ triple-lumen catheter, right femoral Filemon, left upper extremity AV graft or fistula Physical examination: Chronically ill-appearing elderly man who is noncommunicative in no distress. Head atraumatic normocephalic. Sclera nonicteric. Neck is supple, chest rise symmetrical. Heart: S1-S2. Abdomen soft bowel sounds present. Extremities without cyanosis. 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 ESRD/HD Clotted LUE AVF R brachial DVT DM CAD/PPM R fem filemon Plan: Clinically unchanged, continue present care, TPN, HD per renal Consultation Date/Type/Reason Admit Date/Time Aug 02, 2018 at 10:57 Initial Consult Date 08/09/18 Type of Consult id Requesting Provider: DULCE GALINDO Date/Time of Note DATE: 09/03/18 TIME: 13:01 Exam/Review of Systems Exam Vitals Vital Signs Date Temp Pulse Resp B/P (MAP) Pulse Ox O2 O2 Flow FiO2 Time Delivery Rate 09/03/18 97 12:00 09/03/18 24 137/56 94 11:00 (83) 09/03/18 21 10:30 09/03/18 97.9 07:43 09/03/18 Room Air 06:00 09/02/18 2.0 10:00 Intake and Output 09/02/18 09/02/18 09/03/18 1515:00 23:00 07:00 IntakeIntake Total 880.25 ml 847.25 ml 490 ml OutputOutput Total 4000 ml 200 ml 180 ml BalanceBalance -3119.75 ml 647.25 ml 310 ml Results Result Diagram: 09/03/18 2625 09/03/18 7350 Results 24hrs Laboratory Tests Test 09/02/18 13:12 09/02/18 14:44 09/02/18 17:04 09/02/18 21:15 Bedside Glucose 72 83 107 169 Test 09/03/18 01:14 09/03/18 04:30 09/03/18 04:44 09/03/18 04:55 Bedside Glucose 246 H Sodium Level 132 L Potassium Level 3.7 Chloride Level 102 Carbon Dioxide 21 Level Anion Gap 9 Blood Urea 54 H Nitrogen Creatinine 3.69 H Est Glomerular Filtrat Rate mL/min Glucose Level 251 #H Calcium Level 9.2 Phosphorus Level 2.8 Magnesium Level 2.0 Random Vancomycin 12.1 Level White Blood Count 6.2 # Red Blood Count 2.96 #L Hemoglobin 8.6 #L Hematocrit 27.2 L Mean Corpuscular 91.9 Volume Mean Corpuscular 29.1 Hemoglobin Mean Corpuscular 31.6 L Hemoglobin Concen t Red Cell 18.0 H Distribution Width Platelet Count 145 Mean Platelet 12.3 H Volume Immature 1.300 H Granulocytes % Neutrophils % Segmented 47 Neutrophils % (Manual) Band Neutrophils 23 H % (Manual) Lymphocytes % Lymphocytes % 12 L (Manual) Reactive 1 H Lymphocytes % (Manual) Monocytes % Monocytes % 10 (Manual) Eosinophils % Eosinophils % 5 (Manual) Basophils % Metamyelocytes % 1 H (manual) Promyelocytes % 1 H (Manual) Nucleated Red 0.0 Blood Cells % Immature 0.080 H Granulocytes # Neutrophils # Neutrophils # 3.0 (Manual) Band Neutrophils 1.4 H # Lymphocytes 0.7 L (Manual) Lymphocytes # Reactive 0.0 Lymphocytes # Monocytes # Monocytes # 0.6 (Manual) Eosinophils # Basophils # Metamyelocytes # 0.0 Promyelocytes # 0.0 Nucleated Red Blood Cells # Platelet Estimate NORMAL Polychromasia 3+ Anisocytosis 1+ Test 09/03/18 05:03 09/03/18 05:05 09/03/18 10:25 Lab Scanned BLOOD TRANSFUSIO Report N Bedside Glucose 260 H 316 H Medications Medication Current Medications Ondansetron HCl (Zofran Inj) 4 mg Q6H PRN IV NAUSEA/VOMITING Last administered on 08/19/18at 12:55; Admin Dose 4 MG; Start 08/02/18 at 13:00 Diagnostic Test (Pha) (Accu-Chek) 1 ea 02 XX Last administered on 09/03/18at 01:17; Admin Dose 1 EA; Start 08/03/18 at 02:00 Glucose (Glutose) 15 gm Q15M PRN PO DECREASED GLUCOSE; Start 08/02/18 at 13:30 Glucose (Glutose) 22.5 gm Q15M PRN PO DECREASED GLUCOSE; Start 08/02/18 at 13:30 Dextrose (D50w Syringe) 25 ml Q15M PRN IV DECREASED GLUCOSE Last administered on 09/02/18 03:28; Admin Dose 25 ML; Start 08/02/18 at 13:30 Dextrose (D50w Syringe) 50 ml Q15M PRN IV DECREASED GLUCOSE Last administered on 09/02/18 01:02; Admin Dose 50 ML; Start 08/02/18 at 13:30 Glucagon (Glucagen) 1 mg Q15M PRN IM DECREASED GLUCOSE; Start 08/02/18 at 13:30 Glucose (Glutose) 15 gm Q15M PRN BUCCAL DECREASED GLUCOSE; Start 08/02/18 at 13:30 Cholecalciferol (Vitamin D) 1,000 unit DAILY PO Last administered on 09/03/18 10:34; Admin Dose 1,000 UNIT; Start 08/03/18 at 09:00 Folic Acid (Folic Acid) 1 mg DAILY PO Last administered on 09/03/18 10:33; Admin Dose 1 MG; Start 08/03/18 at 09:00 Midodrine (Proamatine) 5 mg ON DIALYSIS DAYS PO Last administered on 09/02/18 08:44; Admin Dose 5 MG; Start 08/02/18 at 18:00 Gabapentin (Neurontin) 100 mg DAILY PO Last administered on 08/13/18 09:07; Admin Dose 100 MG; Start 08/07/18 at 11:30; Status Hold Phenol (Cepastat Lozenge) 1 lozenge Q1H PRN MT COUGH Last administered on 08/08/18 02:34; Admin Dose 1 LOZENGE; Start 08/07/18 at 23:00 Heparin Sodium (Porcine) (Heparin (1000 Units/ml)) 6,100 unit AFTER DIALYSIS CATHETER Last administered on 09/02/18 12:09; Admin Dose 6,100 UNIT; Start 08/16/18 at 22:30 Acetaminophen (Tylenol Tab) 650 mg Q6H PRN PO MILD PAIN(1-3)OR ELEVATED TEMP Last administered on 09/01/18 03:40; Admin Dose 325 MG; Start 08/18/18 at 05:30 Levothyroxine Sodium (Synthroid) 50 mcg DAILY@06 PO Last administered on 09/03/18 05:08; Admin Dose 50 MCG; Start 08/20/18 at 06:00 Famotidine (Pepcid) 20 mg DAILY PO Last administered on 09/03/18 10:33; Admin Dose 20 MG; Start 08/21/18 at 09:00 Apixaban (Eliquis) 2.5 mg BID PO Last administered on 08/27/18 21:24; Admin Dose 2.5 MG; Start 08/21/18 at 09:30; Status Hold Diagnostic Test (Pha) (Accu-Chek) 1 ea Q4 XX Last administered on 09/03/18 10:30; Admin Dose 1 EA; Start 08/23/18 at 21:00 Fat Emulsion Intravenous 250 ml @ 21 mls/hr DAILY IV Last administered on 09/03/18 10:35; Admin Dose 21 MLS/HR; Start 08/24/18 at 14:00 Total Parenteral Nutrition 1,000 ml @ 65 mls/hr [id number] IV Last administered on 09/03/18 07:48; Admin Dose 65 MLS/HR; Start 08/24/18 at 16:00 Albumin Human 100 ml @ 100 mls/hr WITH DIALYSIS PRN IV SBP <90 DURING DIALYSIS Last administered on 08/30/18 10:41; Admin Dose 100 MLS/HR; Start 08/26/18 at 08:30 Insulin Aspart (Novolog Insulin Pen) NOVOLOG *MODERATE* ALGORITHM Q4 SC Last administered on 09/03/18 10:43; Admin Dose 10 UNIT; Start 08/27/18 at 13:00 Fluticasone Propionate (Flonase 0.05% Nasal) 1 spray BID NASAL Last administered on 09/03/18 10:35; Admin Dose 1 SPRAY; Start 08/28/18 at 21:00; Stop 08/26/19 at 22:00 Albuterol/ Ipratropium (Duoneb) 3 ml Q6HWA RESP THERAPY HHN Last administered on 09/03/18 10:30; Admin Dose 3 ML; Start 08/28/18 at 20:00 Albuterol/ Ipratropium (Duoneb) 3 ml Q2H RESP THERAPY PRN HHN shortness of breath; Start 08/28/18 at 19:00 Loperamide HCl (Imodium Cap) 4 mg BID PO Last administered on 09/03/18at 10:34; Admin Dose 4 MG; Start 08/31/18 at 21:00 Ferrous Sulfate (Ferrous Sulfate (Ec)) 325 mg BID PO Last administered on 09/03/18 10:33; Admin Dose 325 MG; Start 08/31/18 at 21:00 Norepinephrine 250 ml @ 1.875 mls/ hr TITRATE IV Last administered on 09/02/18 13:24; Admin Dose 3.75 MLS/HR; Start 09/01/18 at 11:00 Vancomycin HCl (Vanco Iv Per Pharmacy) VANCOMYCIN PER PHARMACY PER PROTOCOL XX ; Start 09/01/18 at 11:30 Metronidazole 100 ml @ 100 mls/hr Q8 IVPB Last administered on 09/03/18 05:08; Admin Dose 100 MLS/HR; Start 09/01/18 at 14:00 Levofloxacin/ Dextrose 50 ml @ 50 mls/hr Q48H IVPB Last administered on 09/01/18at 12:21; Admin Dose 50 MLS/HR; Start 09/01/18 at 12:00 Insulin Glargine (Lantus) 25 units BID@0800,2000 SC ; Start 09/01/18 at 20:00; Status Hold Loratadine (Claritin) 10 mg Q48H NGT Last administered on 09/02/18at 08:55; Admin Dose 10 MG; Start 09/02/18 at 08:30; Stop 09/11/18 at 23:59 Vancomycin HCl 250 ml @ 125 mls/hr ONCE ONCE IVPB ; Start 09/03/18 at 16:00; Stop 09/03/18 at 17:59 CHIN FORD NP Sep 03, 2018 13:04
[2018-09-03] MEDS: LEVOFLOXACIN 250MG/D5W (PMX) 50 ML IVPB SCH (13:22)
--- NOTE | 2018-09-03 14:11 | PN ---
Date/Time of Note Date/Time of Note DATE: 09/03/18 TIME: 14:07 Assessment/Plan VTE Prophylaxis Risk score (from Nsg)>0 risk: 16 SCD applied (from Nsg): Yes Pharmacological prophylaxis: NA/contraindicated Pharm contraindication: anticoag not tolerated Lines/Catheters IV Catheter Type (from Nrsg): permcath Urinary Cath still in place: No Assessment/Plan Assessment/Plan 1. Colonic mass at the splenic flexure and ascending colon s/p subtotal colectomy and small bowel resection on 08/14/18 - General surgery on board and appreciate consultation. Continue current care in ICU and continue pouch for fistula - Continue TPN - GI on board and appreciate recommendations. 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 Will need 36 months of adjuvant therapy for GIST tumor once abdominal wounds healed but no further intervention for adenocarcinoma - Cardiology consultation appreciated - ID consulted for possible prophylaxis abx 2. End-stage renal disease on HD - Nephrology on board for HD management and appreciate recommendations 3. Anemia of chronic disease - stable - continue monitoring - holding Eliquis at this time given low hgb levels 4. Hypoglycemia - sugars continue to fluctuate - restart given sugars in 300s 5. ?Shock secondary to hemodynamics vs infectious etiology- improving - weaned off levophed - ID on board and appreciate recommendations 6. Acute toxic encephalopathy - Neurology on board and appreciate recommendations - MRI unable to be done due to pacemaker 7. Arm swelling, right brachial DVT, thrombosis of left cephalic vein - Ultrasound showed right brachial DVT as well as thrombosis of the left cephalic vein. Patient's midline on his right arm is the likely culprit for the DVT on his right brachial vein. - monitor, warm compresses. - Patient is likely an hypercoagulable state due to his carcinoma. Will restart Eliquis when possible - clogged fistula catheter (HeRO), consulted Dr. Coelho for recs as he is patient's vascular surgeon, recommended Horacio for now until we can fully anticoagulate. Follow as outpatient 8. Diabetes - A1c noted - ISS and accuchecks 9. Esophagitis - Continue PPI 10. Hypothyroidism - Continue home Synthroid 11. Nonischemic CM - pacer in place - Chronic per outpatient Radiological Technologist 12. Mild acute on chronic systolic HF - fluid removal during HD 13. 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 and remains NPO except meds - Continue on TPN at this time - Will downgrade given not requiring pressor support Result Diagram: 09/03/18 0455 09/03/18 0430 Results 24hrs Laboratory Tests Test 09/02/18 14:44 09/02/18 17:04 09/02/18 21:15 09/03/18 01:14 Bedside Glucose 83 107 169 246 H Test 09/03/18 04:30 09/03/18 04:44 09/03/18 04:55 09/03/18 05:03 Sodium Level 132 L Potassium Level 3.7 Chloride Level 102 Carbon Dioxide 21 Level Anion Gap 9 Blood Urea 54 H Nitrogen Creatinine 3.69 H Est Glomerular Filtrat Rate mL/min Glucose Level 251 #H Calcium Level 9.2 Phosphorus Level 2.8 Magnesium Level 2.0 Random Vancomycin 12.1 Level White Blood Count 6.2 # Red Blood Count 2.96 #L Hemoglobin 8.6 #L Hematocrit 27.2 L Mean Corpuscular 91.9 Volume Mean Corpuscular 29.1 Hemoglobin Mean Corpuscular 31.6 L Hemoglobin Concen t Red Cell 18.0 H Distribution Width Platelet Count 145 Mean Platelet 12.3 H Volume Immature 1.300 H Granulocytes % Neutrophils % Segmented 47 Neutrophils % (Manual) Band Neutrophils 23 H % (Manual) Lymphocytes % Lymphocytes % 12 L (Manual) Reactive 1 H Lymphocytes % (Manual) Monocytes % Monocytes % 10 (Manual) Eosinophils % Eosinophils % 5 (Manual) Basophils % Metamyelocytes % 1 H (manual) Promyelocytes % 1 H (Manual) Nucleated Red 0.0 Blood Cells % Immature 0.080 H Granulocytes # Neutrophils # Neutrophils # 3.0 (Manual) Band Neutrophils 1.4 H # Lymphocytes 0.7 L (Manual) Lymphocytes # Reactive 0.0 Lymphocytes # Monocytes # Monocytes # 0.6 (Manual) Eosinophils # Basophils # Metamyelocytes # 0.0 Promyelocytes # 0.0 Nucleated Red Blood Cells # Platelet Estimate NORMAL Polychromasia 3+ Anisocytosis 1+ Lab Scanned BLOOD TRANSFUSIO Report N Test 09/03/18 05:05 09/03/18 10:25 09/03/18 13:35 Bedside Glucose 260 H 316 H 342 H Subjective 24 Hr Interval Summary Free Text/Dictation Patient was mumbling this am but more talkative compared to yesterday. Does admit to mild discomfort in abdominal area. Exam/Review of Systems Exam Vitals Vital Signs Date Temp Pulse Resp B/P (MAP) Pulse Ox O2 O2 Flow FiO2 Time Delivery Rate 09/03/18 97 12:00 09/03/18 24 137/56 94 11:00 (83) 09/03/18 21 10:30 09/03/18 97.9 07:43 09/03/18 Room Air 06:00 09/02/18 2.0 10:00 Intake and Output 09/02/18 09/02/18 09/03/18 1414:59 22:59 06:59 IntakeIntake Total 851.75 ml 796.75 ml 674 ml OutputOutput Total 4000 ml 200 ml 180 ml BalanceBalance -3148.25 ml 596.75 ml 494 ml Exam General: Patient is laying in bed and answers questions appropriately intermittently Respiratory: Clear to auscultation bilaterally. no wheezing. diminished at bases Cardiovascular: regular rate and rhythm, no obvious murmurs Gastrointestinal: soft, tender to palpation, bowel sounds heard. fistula present with output in ostomy bag Neurological: Moves all extremities spontaneously Ext: swelling of UE and LE bilaterally Skin: No new skin lesions Results Results 24hrs Laboratory Tests Test 09/02/18 14:44 09/02/18 17:04 09/02/18 21:15 09/03/18 01:14 Bedside Glucose 83 107 169 246 H Test 09/03/18 04:30 09/03/18 04:44 09/03/18 04:55 09/03/18 05:03 Sodium Level 132 L Potassium Level 3.7 Chloride Level 102 Carbon Dioxide 21 Level Anion Gap 9 Blood Urea 54 H Nitrogen Creatinine 3.69 H Est Glomerular Filtrat Rate mL/min Glucose Level 251 #H Calcium Level 9.2 Phosphorus Level 2.8 Magnesium Level 2.0 Random Vancomycin 12.1 Level White Blood Count 6.2 # Red Blood Count 2.96 #L Hemoglobin 8.6 #L Hematocrit 27.2 L Mean Corpuscular 91.9 Volume Mean Corpuscular 29.1 Hemoglobin Mean Corpuscular 31.6 L Hemoglobin Concen t Red Cell 18.0 H Distribution Width Platelet Count 145 Mean Platelet 12.3 H Volume Immature 1.300 H Granulocytes % Neutrophils % Segmented 47 Neutrophils % (Manual) Band Neutrophils 23 H % (Manual) Lymphocytes % Lymphocytes % 12 L (Manual) Reactive 1 H Lymphocytes % (Manual) Monocytes % Monocytes % 10 (Manual) Eosinophils % Eosinophils % 5 (Manual) Basophils % Metamyelocytes % 1 H (manual) Promyelocytes % 1 H (Manual) Nucleated Red 0.0 Blood Cells % Immature 0.080 H Granulocytes # Neutrophils # Neutrophils # 3.0 (Manual) Band Neutrophils 1.4 H # Lymphocytes 0.7 L (Manual) Lymphocytes # Reactive 0.0 Lymphocytes # Monocytes # Monocytes # 0.6 (Manual) Eosinophils # Basophils # Metamyelocytes # 0.0 Promyelocytes # 0.0 Nucleated Red Blood Cells # Platelet Estimate NORMAL Polychromasia 3+ Anisocytosis 1+ Lab Scanned BLOOD TRANSFUSIO Report N Test 09/03/18 05:05 09/03/18 10:25 09/03/18 13:35 Bedside Glucose 260 H 316 H 342 H Medications Medication Current Medications Ondansetron HCl (Zofran Inj) 4 mg Q6H PRN IV NAUSEA/VOMITING Last administered on 08/19/18at 12:55; Admin Dose 4 MG; Start 08/02/18 at 13:00 Diagnostic Test (Pha) (Accu-Chek) 1 ea 02 XX Last administered on 09/03/18at 01:17; Admin Dose 1 EA; Start 08/03/18 at 02:00 Glucose (Glutose) 15 gm Q15M PRN PO DECREASED GLUCOSE; Start 08/02/18 at 13:30 Glucose (Glutose) 22.5 gm Q15M PRN PO DECREASED GLUCOSE; Start 08/02/18 at 13:30 Dextrose (D50w Syringe) 25 ml Q15M PRN IV DECREASED GLUCOSE Last administered on 09/02/18at 03:28; Admin Dose 25 ML; Start 08/02/18 at 13:30 Dextrose (D50w Syringe) 50 ml Q15M PRN IV DECREASED GLUCOSE Last administered on 09/02/18at 01:02; Admin Dose 50 ML; Start 08/02/18 at 13:30 Glucagon (Glucagen) 1 mg Q15M PRN IM DECREASED GLUCOSE; Start 08/02/18 at 13:30 Glucose (Glutose) 15 gm Q15M PRN BUCCAL DECREASED GLUCOSE; Start 08/02/18 at 13:30 Cholecalciferol (Vitamin D) 1,000 unit DAILY PO Last administered on 09/03/18 10:34; Admin Dose 1,000 UNIT; Start 08/03/18 at 09:00 Folic Acid (Folic Acid) 1 mg DAILY PO Last administered on 09/03/18 10:33; Admin Dose 1 MG; Start 08/03/18 at 09:00 Midodrine (Proamatine) 5 mg ON DIALYSIS DAYS PO Last administered on 09/02/18 08:44; Admin Dose 5 MG; Start 08/02/18 at 18:00 Gabapentin (Neurontin) 100 mg DAILY PO Last administered on 08/13/18 09:07; Admin Dose 100 MG; Start 08/07/18 at 11:30; Status Hold Phenol (Cepastat Lozenge) 1 lozenge Q1H PRN MT COUGH Last administered on 02:34; Admin Dose 1 LOZENGE; Start 08/07/18 at 23:00 Heparin Sodium (Porcine) (Heparin (1000 Units/ml)) 6,100 unit AFTER DIALYSIS CATHETER Last administered on 09/02/18 12:09; Admin Dose 6,100 UNIT; Start 08/16/18 at 22:30 Acetaminophen (Tylenol Tab) 650 mg Q6H PRN PO MILD PAIN(1-3)OR ELEVATED TEMP Last administered on 09/01/18 03:40; Admin Dose 325 MG; Start 08/18/18 at 05:30 Levothyroxine Sodium (Synthroid) 50 mcg DAILY@06 PO Last administered on 09/03/18 05:08; Admin Dose 50 MCG; Start 08/20/18 at 06:00 Famotidine (Pepcid) 20 mg DAILY PO Last administered on 09/03/18 10:33; Admin Dose 20 MG; Start 08/21/18 at 09:00 Apixaban (Eliquis) 2.5 mg BID PO Last administered on 08/27/18 21:24; Admin Dose 2.5 MG; Start 08/21/18 at 09:30; Status Hold Diagnostic Test (Pha) (Accu-Chek) 1 ea Q4 XX Last administered on 09/03/18 13:39; Admin Dose 1 EA; Start 08/23/18 at 21:00 Fat Emulsion Intravenous 250 ml @ 21 mls/hr DAILY IV Last administered on 09/03/18 10:35; Admin Dose 21 MLS/HR; Start 08/24/18 at 14:00 Total Parenteral Nutrition 1,000 ml @ 65 mls/hr [id number] IV Last administered on 09/03/18 07:48; Admin Dose 65 MLS/HR; Start 08/24/18 at 16:00 Albumin Human 100 ml @ 100 mls/hr WITH DIALYSIS PRN IV SBP <90 DURING DIALYSIS Last administered on 08/30/18 10:41; Admin Dose 100 MLS/HR; Start 08/26/18 at 08:30 Insulin Aspart (Novolog Insulin Pen) NOVOLOG *MODERATE* ALGORITHM Q4 SC Last administered on 09/03/18 13:39; Admin Dose 10 UNIT; Start 08/27/18 at 13:00 Fluticasone Propionate (Flonase 0.05% Nasal) 1 spray BID NASAL Last administered on 09/03/18 10:35; Admin Dose 1 SPRAY; Start 08/28/18 at 21:00; Stop 08/26/19 at 22:00 Albuterol/ Ipratropium (Duoneb) 3 ml Q6HWA RESP THERAPY HHN Last administered on 09/03/18 10:30; Admin Dose 3 ML; Start 08/28/18 at 20:00 Albuterol/ Ipratropium (Duoneb) 3 ml Q2H RESP THERAPY PRN HHN shortness of breath; Start 08/28/18 at 19:00 Loperamide HCl (Imodium Cap) 4 mg BID PO Last administered on 09/03/18 10:34; Admin Dose 4 MG; Start 08/31/18 at 21:00 Ferrous Sulfate (Ferrous Sulfate (Ec)) 325 mg BID PO Last administered on 09/03/18 10:33; Admin Dose 325 MG; Start 08/31/18 at 21:00 Norepinephrine 250 ml @ 1.875 mls/ hr TITRATE IV Last administered on 09/02/18 13:24; Admin Dose 3.75 MLS/HR; Start 09/01/18 at 11:00 Vancomycin HCl (Vanco Iv Per Pharmacy) VANCOMYCIN PER PHARMACY PER PROTOCOL XX ; Start 09/01/18 at 11:30 Metronidazole 100 ml @ 100 mls/hr Q8 IVPB Last administered on 3/19/19at 05:08; Admin Dose 100 MLS/HR; Start 09/01/18 at 14:00 Levofloxacin/ Dextrose 50 ml @ 50 mls/hr Q48H IVPB Last administered on 09/03/18at 13:22; Admin Dose 50 MLS/HR; Start 09/01/18 at 12:00 Insulin Glargine (Lantus) 25 units BID@0800,2000 SC ; Start 09/01/18 at 20:00; Status Hold Loratadine (Claritin) 10 mg Q48H NGT Last administered on 09/02/18at 08:55; Admin Dose 10 MG; Start 09/02/18 at 08:30; Stop 09/11/18 at 23:59 Vancomycin HCl 250 ml @ 125 mls/hr ONCE ONCE IVPB ; Start 09/03/18 at 16:00; Stop 09/03/18 at 17:59 Insulin Glargine (Lantus) 20 units BID@0800,2000 SC ; Start 09/03/18 at 20:00; Status JO WONG MD Sep 03, 2018 14:11
[2018-09-03] MEDS ORDERED: VANCOMYCIN 1 GM 250 ML IVPB ONE (16:00)
[2018-09-03] MEDS: INSULIN GLARGINE [LANTus] (100 UNITS/ML) SYG SC SCH (21:33)
[2018-09-04] VITALS (26 sets, daily range): BP systolic 89–153; BP diastolic 5–103; PULSE 85–104; RESP 18–20
[2018-09-04] MEDS: BALSAM PERU/CASTOR OIL 60 GM TUBE TOP SCH ×3 (00:24→20:28)
[2018-09-04] MEDS: FLUTICASONE 0.05% 16 GM NAS SPRAY NASAL SCH ×3 (00:24→20:28)
[2018-09-04] MEDS: INSULIN ASPART [NOVOLOG] 3 ML PEN SC SCH ×6 (00:41→20:28)
[2018-09-04] MEDS: ACCU-CHEK XX SCH ×7 (01:02→20:44)
[2018-09-04] MEDS: LEVOTHYROXINE 50 MCG TAB PO SCH (05:38)
[2018-09-04] MEDS: metroNIDAZOLE 500 MG/NS (PMX) 100 ML IVPB SCH (05:44)
--- NOTE | 2018-09-04 06:50 | PN ---
Date/Time of Note Date/Time of Note DATE: 09/04/18 TIME: 06:48 Assessment/Plan Lines/Catheters IV Catheter Type (from Nrs): Hero Catheter Central line still needed: Yes Blevins in Place (from Nrsg): No Assessment/Plan Chief Complaint/Hosp Course 08/15/18 Pt is s/p major abdominal surgery ( adenocarcinoma of ascending colon and large infiltrating splenic flexure GIST w/ invasion into proximal jejunum) requiring 2 anastomoses ( ileo-sigmoid, and duodenal-jejunal anastomosis). Other findings at the time of surgery include mild to moderate ascites, and fine, nodularity of the liver - cirrhosis?-, and inflammation extending from the transverse colon mesentary to the pancreas, which felt firm). Decision to have the next dialysis as per nephrology. 3 Pt is on O2 ( 2 l/min) , and on Levophed. He is due to have dialysis this am at 0800. Stable but still critical 3 Pt is w/o nausea, tolerating some liquids, and says he is passing some gas.Pt does not move well which was also the case pre-op but persists due to post op pain. 3 POD #6 doing well. Path shows T3N0 adenocarcinoma, and T4N0 GIST w/ 1 tumor implant 3 POD #8 Still confused, eats when prompted, not ambulating well 3 POD #9 Pt has an entero-cutaneous fistula. WBC is sl elevated from yesterday 3 POD #12 Stable fistula. Normal wbc, low albumin. TPN is in place 3 POD #13 400 cc of stool per fistula overnight ( 1300 in 24 hrs ? - uncle ar). TPN is ongoing. Pt is stable w/ good labs 3 POD #14 300 cc of stool now more bilious as the stool becomes mostly enteric secretions. TPN. Dialysis today 3 POD #16 550 cc over 24 hrs, and thick liquid , and no gas overnight. VSS, and normal wbc 3 POD #17 600 -900 cc of dark liquid stool and gas. VSS. Anemic and normal wbc. No ANTB x 2 days 3 POD #18 Liquid dark, greenish stool ( 600-900), low BP, anemia, and normal wbc. No sign of sepsis 3 POD #20 Fistula output is dropping. BP is stable off of pressors x 12 hrs. Normal wbc 3 POD #21 Unsure of fistula output for yesterday. Stable off of pressors Assessment/Plan Will emphasize importance of I/O Subjective 24 Hr Interval Summary Pt is sleeping this am but was not talking when awakened. No complaints of pain. Fistula bag/ stoma was leaking Constitutional: no complaints Feeding: NPO Pain Control: well controlled Exam/Review of Systems Vital Signs Vitals Vital Signs Date Temp Pulse Resp B/P (MAP) Pulse Ox O2 O2 Flow FiO2 Time Delivery Rate 09/04/18 93 04:00 09/04/18 98.8 20 122/58 97 Room Air 03:40 (79) 09/03/18 21 21:14 09/02/18 2.0 10:00 Intake and Output 09/03/18 09/03/18 09/04/18 1515:00 23:00 07:00 IntakeIntake Total 300 ml OutputOutput Total 150 ml 500 ml BalanceBalance -150 ml -200 ml Exam Constitutional: non-verbal Gastrointestinal: soft, non-tender Results Result Diagram: 09/03/18 0455 09/03/18 0430 GONZÁLEZ MERIDA MD Sep 04, 2018 06:50
[2018-09-04] MEDS: ALBUTEROL/IPRATROPIUM (NEB) 3 ML AMP HHN SCH ×3 (08:00→20:01)
[2018-09-04] MEDS: INSULIN GLARGINE [LANTus] (100 UNITS/ML) SYG SC SCH ×2 (09:38→20:33)
[2018-09-04] MEDS: MIDODRINE 5 MG TAB PO SCH (09:50)
[2018-09-04] MEDS: LORATADINE 10 MG TAB NGT SCH (09:51)
[2018-09-04] MEDS: FOLIC ACID 1 MG TAB PO SCH (09:51)
[2018-09-04] MEDS: FAMOTIDINE 20 MG TAB PO SCH (09:51)
[2018-09-04] MEDS: CHOLECALCIFEROL 1,000 UNIT TAB PO SCH (09:51)
[2018-09-04] MEDS: LOPERAMIDE 2 MG CAP PO SCH ×2 (09:51→21:20)
[2018-09-04] MEDS: FERROUS SULFATE (EC) 325 MG TAB PO SCH ×2 (09:51→20:27)
--- NOTE | 2018-09-04 10:15 | CONS ---
Assessment/Plan Assessment/Plan Assessment/Plan (Daily) Assessment/Plan (Daily) 1 End-stage renal disease, on hemodialysis, mwf with mild CHF 2. 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 Hypotension. On Midodrine at home now worsening acne secondary to worsening anemia/sepsis 4. History of congestive heart failure.1 End-stage renal disease, on hemodialysis,mwf with mild CHF 5. Hypercholesterolemia. 6. Hx of total hip replacement. 7. leucocytosis, off pressor and trending down leukocytosis 8. Hypoglycemia. 9. Macrocytic hypochromic Anemia mixed etiology, recent blood loss and 2/2 kidney disease 10. 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% 12 Clotted left arm AV graft 13 b/lateral lower extremity edema plan -HD MWF> HD today with more volume removal if blood pressure tolerates as pt has BLE edema/anaarca - Will give albumin/midodrine -TPN per surgery -Renally dose dose all meds - avoid nephrotoxins - Consultation Date/Type/Reason Admit Date/Time Aug 02, 2018 at 10:57 Initial Consult Date 08/03/18 Requesting Provider: DULCE GALINDO Date/Time of Note DATE: 09/04/18 TIME: 10:13 24 HR Interval Summary Free Text/Dictation open eyes in between SBP in the 90s Exam/Review of Systems Exam Vitals Vital Signs Date Temp Pulse Resp B/P (MAP) Pulse Ox O2 O2 Flow FiO2 Time Delivery Rate 09/04/18 89 08:03 09/04/18 95/51 (66) 07:51 09/04/18 97.5 100 07:35 09/04/18 20 Room Air 03:40 09/03/18 21 21:14 09/02/18 2.0 10:00 Intake and Output 09/03/18 09/03/18 09/04/18 1515:00 23:00 07:00 IntakeIntake Total 300 ml OutputOutput Total 150 ml 500 ml BalanceBalance -150 ml -200 ml Exam isabelle: supple Respiratory: dec breath sounds bases Cardiovascular: regular rate and rhythm, edema Abdomen: bag+, TTP Extremities: other (++) edema+= Results Result Diagram: 09/03/18 0455 09/03/18 0430 Results 24hrs Laboratory Tests Test 09/03/18 10:25 09/03/18 13:35 09/03/18 17:31 09/03/18 21:13 Bedside Glucose 316 H 342 H 213 213 Test 09/04/18 00:35 09/04/18 05:36 09/04/18 09:35 Bedside Glucose 298 H 260 H 270 H Medications Medication Current Medications Ondansetron HCl (Zofran Inj) 4 mg Q6H PRN IV NAUSEA/VOMITING Last administered on 08/19/18 12:55; Admin Dose 4 MG; Start 08/02/18 at 13:00 Diagnostic Test (Pha) (Accu-Chek) 1 ea 02 XX Last administered on 09/03/18 01:17; Admin Dose 1 EA; Start 08/03/18 at 02:00 Glucose (Glutose) 15 gm Q15M PRN PO DECREASED GLUCOSE; Start 08/02/18 at 13:30 Glucose (Glutose) 22.5 gm Q15M PRN PO DECREASED GLUCOSE; Start 08/02/18 at 13:30 Dextrose (D50w Syringe) 25 ml Q15M PRN IV DECREASED GLUCOSE Last administered on 09/02/18 03:28; Admin Dose 25 ML; Start 08/02/18 at 13:30 Dextrose (D50w Syringe) 50 ml Q15M PRN IV DECREASED GLUCOSE Last administered on 09/02/18 01:02; Admin Dose 50 ML; Start 08/02/18 at 13:30 Glucagon (Glucagen) 1 mg Q15M PRN IM DECREASED GLUCOSE; Start 08/02/18 at 13:30 Glucose (Glutose) 15 gm Q15M PRN BUCCAL DECREASED GLUCOSE; Start 08/02/18 at 13:30 Cholecalciferol (Vitamin D) 1,000 unit DAILY PO Last administered on 09/04/18 09:51; Admin Dose 1,000 UNIT; Start 08/03/18 at 09:00 Folic Acid (Folic Acid) 1 mg DAILY PO Last administered on 09/04/18 09:51; Admin Dose 1 MG; Start 08/03/18 at 09:00 Midodrine (Proamatine) 5 mg ON DIALYSIS DAYS PO Last administered on 09/04/18 09:50; Admin Dose 5 MG; Start 08/02/18 at 18:00 Gabapentin (Neurontin) 100 mg DAILY PO Last administered on 08/13/18 09:07; Admin Dose 100 MG; Start 08/07/18 at 11:30; Status Hold Phenol (Cepastat Lozenge) 1 lozenge Q1H PRN MT COUGH Last administered on 08/08/18 02:34; Admin Dose 1 LOZENGE; Start 08/07/18 at 23:00 Heparin Sodium (Porcine) (Heparin (1000 Units/ml)) 6,100 unit AFTER DIALYSIS CATHETER Last administered on 09/02/18 12:09; Admin Dose 6,100 UNIT; Start 08/16/18 at 22:30 Acetaminophen (Tylenol Tab) 650 mg Q6H PRN PO MILD PAIN(1-3)OR ELEVATED TEMP Last administered on 09/01/18 03:40; Admin Dose 325 MG; Start 08/18/18 at 05:30 Levothyroxine Sodium (Synthroid) 50 mcg DAILY@06 PO Last administered on 09/04/18 05:38; Admin Dose 50 MCG; Start 08/20/18 at 06:00 Famotidine (Pepcid) 20 mg DAILY PO Last administered on 09/04/18 09:51; Admin Dose 20 MG; Start 08/21/18 at 09:00 Apixaban (Eliquis) 2.5 mg BID PO Last administered on 08/27/18 21:24; Admin Dose 2.5 MG; Start 08/21/18 at 09:30; Status Hold Diagnostic Test (Pha) (Accu-Chek) 1 ea Q4 XX Last administered on 09/04/18 05:49; Admin Dose 1 EA; Start 08/23/18 at 21:00 Fat Emulsion Intravenous 250 ml @ 21 mls/hr DAILY IV Last administered on 09/03/18 10:35; Admin Dose 21 MLS/HR; Start 08/24/18 at 14:00 Total Parenteral Nutrition 1,000 ml @ 65 mls/hr [id number] IV Last administered on 09/03/18 22:56; Admin Dose 65 MLS/HR; Start 08/24/18 at 16:00 Albumin Human 100 ml @ 100 mls/hr WITH DIALYSIS PRN IV SBP <90 DURING DIALYSIS Last administered on 3/15/19at 10:41; Admin Dose 100 MLS/HR; Start 08/26/18 at 08:30 Insulin Aspart (Novolog Insulin Pen) NOVOLOG *MODERATE* ALGORITHM Q4 SC Last administered on 09/04/18 09:48; Admin Dose 8 UNIT; Start 08/27/18 at 13:00 Fluticasone Propionate (Flonase 0.05% Nasal) 1 spray BID NASAL Last administered on 09/04/18 09:50; Admin Dose 1 SPRAY; Start 08/28/18 at 21:00; Stop 08/26/19 at 22:00 Albuterol/ Ipratropium (Duoneb) 3 ml Q6HWA RESP THERAPY HHN Last administered on 09/03/18 21:14; Admin Dose 3 ML; Start 08/28/18 at 20:00 Albuterol/ Ipratropium (Duoneb) 3 ml Q2H RESP THERAPY PRN HHN shortness of breath; Start 08/28/18 at 19:00 Loperamide HCl (Imodium Cap) 4 mg BID PO Last administered on 09/04/18 09:51; Admin Dose 4 MG; Start 08/31/18 at 21:00 Ferrous Sulfate (Ferrous Sulfate (Ec)) 325 mg BID PO Last administered on 09/04/18 09:51; Admin Dose 325 MG; Start 08/31/18 at 21:00 Vancomycin HCl (Vanco Iv Per Pharmacy) VANCOMYCIN PER PHARMACY PER PROTOCOL XX ; Start 09/01/18 at 11:30 Metronidazole 100 ml @ 100 mls/hr Q8 IVPB Last administered on 09/04/18 05:44; Admin Dose 100 MLS/HR; Start 09/01/18 at 14:00 Levofloxacin/ Dextrose 50 ml @ 50 mls/hr Q48H IVPB Last administered on 09/03/18 13:22; Admin Dose 50 MLS/HR; Start 09/01/18 at 12:00 Loratadine (Claritin) 10 mg Q48H NGT Last administered on 09/04/18 09:51; Admin Dose 10 MG; Start 09/02/18 at 08:30; Stop 09/11/18 at 23:59 Insulin Glargine (Lantus) 20 units BID@0800,2000 SC Last administered on 09/04/18 09:38; Admin Dose 20 UNITS; Start 09/03/18 at 20:00 NNEKA FRITZ MD Sep 04, 2018 10:15
--- NOTE | 2018-09-04 10:52 | CONS ---
Assessment/Plan Assessment/Plan Hospital Course (Demo Recall) no events, looks comfortable Microbiology: Blood cultures sent 2 days ago negative Antimicrobials: Flagyl, Vanco, Levaquin Indwelling: Right IJ triple-lumen catheter, right femoral Filemon, left upper extremity AV graft or fistula Physical examination: Chronically ill-appearing elderly man who is noncommunicative in no distress. Head atraumatic normocephalic. Sclera nonicteric. Neck is supple, chest rise symmetrical. Heart: S1-S2. Abdomen soft bowel sounds present. Extremities without cyanosis. 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 ESRD/HD Clotted LUE AVF R brachial DVT DM CAD/PPM R fem filemon Plan: Clinically unchanged, repeat bld cx negative, continue present care, TPN, HD per renal. Dc abx Consultation Date/Type/Reason Admit Date/Time Aug 02, 2018 at 10:57 Initial Consult Date 08/09/18 Type of Consult id Requesting Provider: DULCE GALINDO Date/Time of Note DATE: 09/04/18 TIME: 10:51 Exam/Review of Systems Exam Vitals Vital Signs Date Temp Pulse Resp B/P (MAP) Pulse Ox O2 O2 Flow FiO2 Time Delivery Rate 09/04/18 89 08:03 09/04/18 95/51 (66) 07:51 09/04/18 97.5 100 07:35 09/04/18 20 Room Air 03:40 09/03/18 21 21:14 09/02/18 2.0 10:00 Intake and Output 09/03/18 09/03/18 09/04/18 1515:00 23:00 07:00 IntakeIntake Total 300 ml OutputOutput Total 150 ml 500 ml BalanceBalance -150 ml -200 ml Results Result Diagram: 09/03/18 0453 09/03/18 0430 Results 24hrs Laboratory Tests Test 09/03/18 13:35 09/03/18 17:31 09/03/18 21:13 09/04/18 00:35 Bedside Glucose 342 H 213 213 298 H Test 09/04/18 05:36 09/04/18 09:35 Bedside Glucose 260 H 270 H Medications Medication Current Medications Ondansetron HCl (Zofran Inj) 4 mg Q6H PRN IV NAUSEA/VOMITING Last administered on 08/19/18 12:55; Admin Dose 4 MG; Start 08/02/18 at 13:00 Diagnostic Test (Pha) (Accu-Chek) 1 ea 02 XX Last administered on 09/03/18 01:17; Admin Dose 1 EA; Start 08/03/18 at 02:00 Glucose (Glutose) 15 gm Q15M PRN PO DECREASED GLUCOSE; Start 08/02/18 at 13:30 Glucose (Glutose) 22.5 gm Q15M PRN PO DECREASED GLUCOSE; Start 08/02/18 at 13:30 Dextrose (D50w Syringe) 25 ml Q15M PRN IV DECREASED GLUCOSE Last administered on 09/02/18 03:28; Admin Dose 25 ML; Start 08/02/18 at 13:30 Dextrose (D50w Syringe) 50 ml Q15M PRN IV DECREASED GLUCOSE Last administered on 09/02/18 01:02; Admin Dose 50 ML; Start 08/02/18 at 13:30 Glucagon (Glucagen) 1 mg Q15M PRN IM DECREASED GLUCOSE; Start 08/02/18 at 13:30 Glucose (Glutose) 15 gm Q15M PRN BUCCAL DECREASED GLUCOSE; Start 08/02/18 at 13:30 Cholecalciferol (Vitamin D) 1,000 unit DAILY PO Last administered on 09/04/18 09:51; Admin Dose 1,000 UNIT; Start 08/03/18 at 09:00 Folic Acid (Folic Acid) 1 mg DAILY PO Last administered on 09/04/18 09:51; Admin Dose 1 MG; Start 08/03/18 at 09:00 Midodrine (Proamatine) 5 mg ON DIALYSIS DAYS PO Last administered on 09/04/18 09:50; Admin Dose 5 MG; Start 08/02/18 at 18:00 Gabapentin (Neurontin) 100 mg DAILY PO Last administered on 08/13/18 09:07; Admin Dose 100 MG; Start 08/07/18 at 11:30; Status Hold Phenol (Cepastat Lozenge) 1 lozenge Q1H PRN MT COUGH Last administered on 08/08/18 02:34; Admin Dose 1 LOZENGE; Start 08/07/18 at 23:00 Heparin Sodium (Porcine) (Heparin (1000 Units/ml)) 6,100 unit AFTER DIALYSIS CATHETER Last administered on 09/02/18 12:09; Admin Dose 6,100 UNIT; Start 08/16/18 at 22:30 Acetaminophen (Tylenol Tab) 650 mg Q6H PRN PO MILD PAIN(1-3)OR ELEVATED TEMP Last administered on 09/01/18 03:40; Admin Dose 325 MG; Start 08/18/18 at 05:30 Levothyroxine Sodium (Synthroid) 50 mcg DAILY@06 PO Last administered on 09/04/18 05:38; Admin Dose 50 MCG; Start 08/20/18 at 06:00 Famotidine (Pepcid) 20 mg DAILY PO Last administered on 09/04/18 09:51; Admin Dose 20 MG; Start 08/21/18 at 09:00 Apixaban (Eliquis) 2.5 mg BID PO Last administered on 08/27/18 21:24; Admin Dose 2.5 MG; Start 08/21/18 at 09:30; Status Hold Diagnostic Test (Pha) (Accu-Chek) 1 ea Q4 XX Last administered on 09/04/18 05: 49; Admin Dose 1 EA; Start 08/23/18 at 21:00 Fat Emulsion Intravenous 250 ml @ 21 mls/hr DAILY IV Last administered on 09/03/18 10:35; Admin Dose 21 MLS/HR; Start 08/24/18 at 14:00 Total Parenteral Nutrition 1,000 ml @ 65 mls/hr [id number] IV Last administered on 09/03/18 22:56; Admin Dose 65 MLS/HR; Start 08/24/18 at 16:00 Albumin Human 100 ml @ 100 mls/hr WITH DIALYSIS PRN IV SBP <90 DURING DIALYSIS Last administered on 08/30/18 10:41; Admin Dose 100 MLS/HR; Start 08/26/18 at 08:30 Insulin Aspart (Novolog Insulin Pen) NOVOLOG *MODERATE* ALGORITHM Q4 SC Last administered on 09/04/18 09:48; Admin Dose 8 UNIT; Start 08/27/18 at 13:00 Fluticasone Propionate (Flonase 0.05% Nasal) 1 spray BID NASAL Last administered on 09/04/18 09:50; Admin Dose 1 SPRAY; Start 08/28/18 at 21:00; Stop 08/26/19 at 22:00 Albuterol/ Ipratropium (Duoneb) 3 ml Q6HWA RESP THERAPY HHN Last administered on 09/03/18 21:14; Admin Dose 3 ML; Start 08/28/18 at 20:00 Albuterol/ Ipratropium (Duoneb) 3 ml Q2H RESP THERAPY PRN HHN shortness of breath; Start 08/28/18 at 19:00 Loperamide HCl (Imodium Cap) 4 mg BID PO Last administered on 09/04/18 09:51; Admin Dose 4 MG; Start 08/31/18 at 21:00 Ferrous Sulfate (Ferrous Sulfate (Ec)) 325 mg BID PO Last administered on 09/04/18 09:51; Admin Dose 325 MG; Start 08/31/18 at 21:00 Vancomycin HCl (Vanco Iv Per Pharmacy) VANCOMYCIN PER PHARMACY PER PROTOCOL XX ; Start 09/01/18 at 11:30 Metronidazole 100 ml @ 100 mls/hr Q8 IVPB Last administered on 09/04/18 05:44; Admin Dose 100 MLS/HR; Start 09/01/18 at 14:00 Levofloxacin/ Dextrose 50 ml @ 50 mls/hr Q48H IVPB Last administered on 09/03/18 13:22; Admin Dose 50 MLS/HR; Start 09/01/18 at 12:00 Loratadine (Claritin) 10 mg Q48H NGT Last administered on 09/04/18 09:51; Admin Dose 10 MG; Start 09/02/18 at 08:30; Stop 09/11/18 at 23:59 Insulin Glargine (Lantus) 20 units BID@0800,2000 SC Last administered on 09/04/18 09:38; Admin Dose 20 UNITS; Start 09/03/18 at 20:00 CHIN FORD NP Sep 04, 2018 10:52
[2018-09-04] MEDS: FAT EMULSION 20% 250 ML IV SCH (11:11)
[2018-09-04] MEDS: ALBUMIN HUMAN 25% 100 ML IV PRN ×2 (11:33→12:42)
--- NOTE | 2018-09-04 12:30 | CONS ---
Assessment/Plan Assessment/Plan Hospital Course (Demo Recall) #Adenocarcinoma of ascending Colon ca -final pathology report reveals 2 separate masses with different pathology results. -the ascending colon mass is consistent with a Moderately-differentiated adenocarcinoma, invading through the muscularis propria, with all 0/18 negative for disease, 3.6 x 2.8 x 1.1 cm. -the splenic flexture mass is 10.5 x 9.0 x 7.0 cm.and consistent with a high grade GIST tumor -CT does not reveal evidence of distant mets -in terms of the adenocarcinoma, pt does not need adjuvant chemotherapy given this was a stage IIA tumor. 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 he is now on D 10 #Hypothyroidism - Continue Synthroid #Nonischemic CM - pacer in place - nonchronic Thank you for the opportunity to participate in this patients care A total of 40 minutes of face to face time was spent speaking with the patient, of which greater than 50% was spent in counseling and coordination of care and the detailed question and answer session. Consultation Date/Type/Reason Admit Date/Time Aug 02, 2018 at 10:57 Initial Consult Date 08/09/18 Type of Consult oncology Reason for Consultation colon cancer Requesting Provider: DULCE GALINDO Date/Time of Note DATE: 09/04/18 TIME: 12:28 24 HR Interval Summary Free Text/Dictation pt now transferred out of the ICU. fistula still draining stool Exam/Review of Systems Exam Vitals Vital Signs Date Temp Pulse Resp B/P (MAP) Pulse Ox O2 O2 Flow FiO2 Time Delivery Rate 09/04/18 85 12:11 09/04/18 95/51 (66) 07:51 09/04/18 97.5 100 07:35 09/04/18 20 Room Air 03:40 09/03/18 21 21:14 09/02/18 2.0 10:00 Intake and Output 09/03/18 09/03/18 09/04/18 1515:00 23:00 07:00 IntakeIntake Total 300 ml OutputOutput Total 150 ml 500 ml BalanceBalance -150 ml -200 ml Constitutional: alert, oriented Psych: confusion Head: normocephalic Eyes: nl conjunctiva ENMT: nl external ears & nose Neck: supple Respiratory: clear to auscultation Cardiovascular: regular rate and rhythm Gastrointestinal: surgical scars, other (EC filtula) Musculoskeletal: nl extremities to inspection Results Result Diagram: 09/03/18 0455 09/03/18 0430 Results 24hrs Laboratory Tests Test 09/03/18 13:35 09/03/18 17:31 09/03/18 21:13 09/04/18 00:35 Bedside Glucose 342 H 213 213 298 H Test 09/04/18 05:36 09/04/18 09:35 09/04/18 12:16 Bedside Glucose 260 H 270 H 193 Medications Medication Current Medications Ondansetron HCl (Zofran Inj) 4 mg Q6H PRN IV NAUSEA/VOMITING Last administered on 08/19/18 12:55; Admin Dose 4 MG; Start 08/02/18 at 13:00 Diagnostic Test (Pha) (Accu-Chek) 1 ea 02 XX Last administered on 09/03/18at 01:17; Admin Dose 1 EA; Start 08/03/18 at 02:00 Glucose (Glutose) 15 gm Q15M PRN PO DECREASED GLUCOSE; Start 08/02/18 at 13:30 Glucose (Glutose) 22.5 gm Q15M PRN PO DECREASED GLUCOSE; Start 08/02/18 at 13:30 Dextrose (D50w Syringe) 25 ml Q15M PRN IV DECREASED GLUCOSE Last administered on 09/02/18at 03:28; Admin Dose 25 ML; Start 08/02/18 at 13:30 Dextrose (D50w Syringe) 50 ml Q15M PRN IV DECREASED GLUCOSE Last administered on 09/02/18at 01:02; Admin Dose 50 ML; Start 08/02/18 at 13:30 Glucagon (Glucagen) 1 mg Q15M PRN IM DECREASED GLUCOSE; Start 08/02/18 at 13:30 Glucose (Glutose) 15 gm Q15M PRN BUCCAL DECREASED GLUCOSE; Start 08/02/18 at 13:30 Cholecalciferol (Vitamin D) 1,000 unit DAILY PO Last administered on 09/04/18 09:51; Admin Dose 1,000 UNIT; Start 08/03/18 at 09:00 Folic Acid (Folic Acid) 1 mg DAILY PO Last administered on 09/04/18 09:51; Admin Dose 1 MG; Start 08/03/18 at 09:00 Midodrine (Proamatine) 5 mg ON DIALYSIS DAYS PO Last administered on 09/04/18 09:50; Admin Dose 5 MG; Start 08/02/18 at 18:00 Gabapentin (Neurontin) 100 mg DAILY PO Last administered on 08/13/18 09:07; Admin Dose 100 MG; Start 08/07/18 at 11:30; Status Hold Phenol (Cepastat Lozenge) 1 lozenge Q1H PRN MT COUGH Last administered on 08/08/18 02:34; Admin Dose 1 LOZENGE; Start 08/07/18 at 23:00 Heparin Sodium (Porcine) (Heparin (1000 Units/ml)) 6,100 unit AFTER DIALYSIS CATHETER Last administered on 09/02/18 12:09; Admin Dose 6,100 UNIT; Start 08/16/18 at 22:30 Acetaminophen (Tylenol Tab) 650 mg Q6H PRN PO MILD PAIN(1-3)OR ELEVATED TEMP Last administered on 09/01/18 03:40; Admin Dose 325 MG; Start 08/18/18 at 05:30 Levothyroxine Sodium (Synthroid) 50 mcg DAILY@06 PO Last administered on 09/04/18 05:38; Admin Dose 50 MCG; Start 08/20/18 at 06:00 Famotidine (Pepcid) 20 mg DAILY PO Last administered on 09/04/18 09:51; Admin Dose 20 MG; Start 08/21/18 at 09:00 Apixaban (Eliquis) 2.5 mg BID PO Last administered on 08/27/18 21:24; Admin Dose 2.5 MG; Start 08/21/18 at 09:30; Status Hold Diagnostic Test (Pha) (Accu-Chek) 1 ea Q4 XX Last administered on 09/04/18 05:49; Admin Dose 1 EA; Start 08/23/18 at 21:00 Fat Emulsion Intravenous 250 ml @ 21 mls/hr DAILY IV Last administered on 09/04/18 11:11; Admin Dose 21 MLS/HR; Start 08/24/18 at 14:00 Total Parenteral Nutrition 1,000 ml @ 65 mls/hr [id number] IV Last administered on 09/03/18 22:56; Admin Dose 65 MLS/HR; Start 08/24/18 at 16:00 Albumin Human 100 ml @ 100 mls/hr WITH DIALYSIS PRN IV SBP <90 DURING DIALYSIS Last administered on 09/04/18 11:33; Admin Dose 100 MLS/HR; Start 08/26/18 at 08:30 Insulin Aspart (Novolog Insulin Pen) NOVOLOG *MODERATE* ALGORITHM Q4 SC Last administered on 09/04/18 12:22; Admin Dose 4 UNIT; Start 08/27/18 at 13:00 Fluticasone Propionate (Flonase 0.05% Nasal) 1 spray BID NASAL Last administered on 09/04/18 09:50; Admin Dose 1 SPRAY; Start 08/28/18 at 21:00; Stop 08/26/19 at 22:00 Albuterol/ Ipratropium (Duoneb) 3 ml Q6HWA RESP THERAPY HHN Last administered on 09/03/18 21:14; Admin Dose 3 ML; Start 08/28/18 at 20:00 Albuterol/ Ipratropium (Duoneb) 3 ml Q2H RESP THERAPY PRN HHN shortness of breath; Start 08/28/18 at 19:00 Loperamide HCl (Imodium Cap) 4 mg BID PO Last administered on 09/04/18 09:51; Admin Dose 4 MG; Start 08/31/18 at 21:00 Ferrous Sulfate (Ferrous Sulfate (Ec)) 325 mg BID PO Last administered on 09/04/18 09:51; Admin Dose 325 MG; Start 08/31/18 at 21:00 Loratadine (Claritin) 10 mg Q48H NGT Last administered on 09/04/18 09:51; Admin Dose 10 MG; Start 09/02/18 at 08:30; Stop 09/11/18 at 23:59 Insulin Glargine (Lantus) 20 units BID@0800,2000 SC Last administered on 09/04/18at 09:38; Admin Dose 20 UNITS; Start 09/03/18 at 20:00 JAGUAR CARTWRIGHT M.D. Sep 04, 2018 12:30
[2018-09-04] MEDS: TPN 1,000 ML IV SCH (13:21)
[2018-09-04] MEDS: HEPARIN 1000 UNITS/ML 10 ML INJ CATHETER SCH (14:18)
--- NOTE | 2018-09-04 16:29 | PN ---
Date/Time of Note Date/Time of Note DATE: 09/04/18 TIME: 16:12 Assessment/Plan VTE Prophylaxis Risk score (from Nsg)>0 risk: 14 SCD applied (from Nsg): Yes Pharmacological prophylaxis: NA/contraindicated Pharm contraindication: patient refusal Lines/Catheters IV Catheter Type (from Nrsg): PERMACATH Urinary Cath still in place: No Assessment/Plan Assessment/Plan 1. Colonic mass at the splenic flexure and ascending colon s/p subtotal colectomy and small bowel resection on 08/14/18 - General surgery on board and appreciate consultation. Continue current care i n ICU and continue pouch for fistula - Continue TPN - GI on board and appreciate recommendations. 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 Will need 36 months of adjuvant therapy for GIST tumor once abdominal wounds healed but no further intervention for adenocarcinoma - Cardiology consultation appreciated - ID consulted for possible prophylaxis abx 2. End-stage renal disease on HD - Nephrology on board for HD management and appreciate recommendations 3. Anemia of chronic disease - stable - continue monitoring - holding Eliquis at this time given low hgb levels 4. Hypoglycemia- improved - sugars continue to fluctuate 5. ?Shock secondary to hemodynamics vs infectious etiology- resolved - ID on board and appreciate recommendations 6. Acute toxic encephalopathy - Neurology on board and appreciate recommendations - MRI unable to be done due to pacemaker 7. Arm swelling, right brachial DVT, thrombosis of left cephalic vein - Ultrasound showed right brachial DVT as well as thrombosis of the left cephalic vein. Patient's midline on his right arm is the likely culprit for the DVT on his right brachial vein. - monitor, warm compresses. - Patient is likely an hypercoagulable state due to his carcinoma. Will restart Eliquis when possible - clogged fistula catheter (HeRO), consulted Dr. Coelho for recs as he is patient's vascular surgeon, recommended Horacio for now until we can fully anticoagulate. Follow as outpatient 8. Diabetes - A1c noted - ISS and accuchecks 9. Esophagitis - Continue PPI 10. Hypothyroidism - Continue home Synthroid 11. 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 Mild acute on chronic systolic HF - fluid removal during HD 13. 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 and remains NPO except meds - Continue on TPN at this time Result Diagram: 09/03/18 0455 09/03/18 0430 Results 24hrs Laboratory Tests Test 09/03/18 17:31 09/03/18 21:13 09/04/18 00:35 09/04/18 05:36 Bedside Glucose 213 213 298 H 260 H Test 09/04/18 09:35 09/04/18 12:16 Bedside Glucose 270 H 193 Subjective 24 Hr Interval Summary Free Text/Dictation Patient fatigued this morning while undergoing HD. Tolerating PO meds with sips of water this am. Able to answer simple questions. Exam/Review of Systems Exam Vitals Vital Signs Date Temp Pulse Resp B/P (MAP) Pulse Ox O2 O2 Flow FiO2 Time Delivery Rate 09/04/18 102 16:03 09/04/18 18 103/52 98 Nasal 15:55 (69) Cannula 09/04/18 97.7 15:28 09/04/18 21 14:38 09/02/18 2.0 10:00 Intake and Output 09/03/18 09/03/18 09/04/18 1515:00 23:00 07:00 IntakeIntake Total 300 ml OutputOutput Total 150 ml 500 ml BalanceBalance -150 ml -200 ml Exam General: Patient is laying in bed and answers questions appropriately intermittently Respiratory: Clear to auscultation bilaterally. no wheezing. diminished at bases Cardiovascular: regular rate and rhythm, no obvious murmurs Gastrointestinal: soft, tender to palpation, bowel sounds heard. fistula present with minimal output in ostomy bag Neurological: Moves all extremities spontaneously Ext: swelling of LUE and LE bilaterally Skin: No new skin lesions Results Results 24hrs Laboratory Tests Test 09/03/18 17:31 09/03/18 21:13 09/04/18 00:35 09/04/18 05:36 Bedside Glucose 213 213 298 H 260 H Test 09/04/18 09:35 09/04/18 12:16 Bedside Glucose 270 H 193 Medications Medication Current Medications Ondansetron HCl (Zofran Inj) 4 mg Q6H PRN IV NAUSEA/VOMITING Last administered on 08/19/18at 12:55; Admin Dose 4 MG; Start 08/02/18 at 13:00 Diagnostic Test (Pha) (Accu-Chek) 1 ea 02 XX Last administered on 09/03/18 01:17; Admin Dose 1 EA; Start 08/03/18 at 02:00 Glucose (Glutose) 15 gm Q15M PRN PO DECREASED GLUCOSE; Start 08/02/18 at 13:30 Glucose (Glutose) 22.5 gm Q15M PRN PO DECREASED GLUCOSE; Start 08/02/18 at 13:30 Dextrose (D50w Syringe) 25 ml Q15M PRN IV DECREASED GLUCOSE Last administered on 09/02/18 03:28; Admin Dose 25 ML; Start 08/02/18 at 13:30 Dextrose (D50w Syringe) 50 ml Q15M PRN IV DECREASED GLUCOSE Last administered on 09/02/18 01:02; Admin Dose 50 ML; Start 08/02/18 at 13:30 Glucagon (Glucagen) 1 mg Q15M PRN IM DECREASED GLUCOSE; Start 08/02/18 at 13:30 Glucose (Glutose) 15 gm Q15M PRN BUCCAL DECREASED GLUCOSE; Start 08/02/18 at 13:30 Cholecalciferol (Vitamin D) 1,000 unit DAILY PO Last administered on 09/04/18 09:51; Admin Dose 1,000 UNIT; Start 08/03/18 at 09:00 Folic Acid (Folic Acid) 1 mg DAILY PO Last administered on 09/04/18 09:51; Admin Dose 1 MG; Start 08/03/18 at 09:00 Midodrine (Proamatine) 5 mg ON DIALYSIS DAYS PO Last administered on 09/04/18 09:50; Admin Dose 5 MG; Start 08/02/18 at 18:00 Gabapentin (Neurontin) 100 mg DAILY PO Last administered on 08/13/18 09:07; Admin Dose 100 MG; Start 08/07/18 at 11:30; Status Hold Phenol (Cepastat Lozenge) 1 lozenge Q1H PRN MT COUGH Last administered on 08/08/18 02:34; Admin Dose 1 LOZENGE; Start 08/07/18 at 23:00 Heparin Sodium (Porcine) (Heparin (1000 Units/ml)) 6,100 unit AFTER DIALYSIS CATHETER Last administered on 09/04/18 14:18; Admin Dose 6,100 UNIT; Start 08/16/18 at 22:30 Acetaminophen (Tylenol Tab) 650 mg Q6H PRN PO MILD PAIN(1-3)OR ELEVATED TEMP Last administered on 09/01/18 03:40; Admin Dose 325 MG; Start 08/18/18 at 05:30 Levothyroxine Sodium (Synthroid) 50 mcg DAILY@06 PO Last administered on 09/04/18 05:38; Admin Dose 50 MCG; Start 08/20/18 at 06:00 Famotidine (Pepcid) 20 mg DAILY PO Last administered on 09/04/18 09:51; Admin Dose 20 MG; Start 08/21/18 at 09:00 Apixaban (Eliquis) 2.5 mg BID PO Last administered on 08/27/18 21:24; Admin Dose 2.5 MG; Start 08/21/18 at 09:30; Status Hold Diagnostic Test (Pha) (Accu-Chek) 1 ea Q4 XX Last administered on 09/04/18 05:49; Admin Dose 1 EA; Start 08/23/18 at 21:00 Fat Emulsion Intravenous 250 ml @ 21 mls/hr DAILY IV Last administered on 09/04/18 11:11; Admin Dose 21 MLS/HR; Start 08/24/18 at 14:00 Total Parenteral Nutrition 1,000 ml @ 65 mls/hr [id number] IV Last administered on 09/04/18 13:21; Admin Dose 65 MLS/HR; Start 08/24/18 at 16:00 Albumin Human 100 ml @ 100 mls/hr WITH DIALYSIS PRN IV SBP <90 DURING DIALYSIS Last administered on 09/04/18 12:42; Admin Dose 100 MLS/HR; Start 08/26/18 at 08:30 Insulin Aspart (Novolog Insulin Pen) NOVOLOG *MODERATE* ALGORITHM Q4 SC Last administered on 09/04/18 12:22; Admin Dose 4 UNIT; Start 08/27/18 at 13:00 Fluticasone Propionate (Flonase 0.05% Nasal) 1 spray BID NASAL Last administered on 09/04/18 09:50; Admin Dose 1 SPRAY; Start 08/28/18 at 21:00; Stop 08/26/19 at 22:00 Albuterol/ Ipratropium (Duoneb) 3 ml Q6HWA RESP THERAPY HHN Last administered on 3/20/19at 14:38; Admin Dose 3 ML; Start 08/28/18 at 20:00 Albuterol/ Ipratropium (Duoneb) 3 ml Q2H RESP THERAPY PRN HHN shortness of breath; Start 08/28/18 at 19:00 Loperamide HCl (Imodium Cap) 4 mg BID PO Last administered on 09/04/18at 09:51; Admin Dose 4 MG; Start 08/31/18 at 21:00 Ferrous Sulfate (Ferrous Sulfate (Ec)) 325 mg BID PO Last administered on 09/04/18 09:51; Admin Dose 325 MG; Start 08/31/18 at 21:00 Loratadine (Claritin) 10 mg Q48H NGT Last administered on 09/04/18 09:51; Admin Dose 10 MG; Start 09/02/18 at 08:30; Stop 09/11/18 at 23:59 Insulin Glargine (Lantus) 20 units BID@0800,2000 SC Last administered on 09/04/18 09:38; Admin Dose 20 UNITS; Start 09/03/18 at 20:00 JO HURST MD Sep 04, 2018 16:29
[2018-09-05] VITALS (9 sets, daily range): BP systolic 84–103; BP diastolic 44–56; PULSE 82–97; RESP 16–18
[2018-09-05] MEDS: INSULIN ASPART [NOVOLOG] 3 ML PEN SC SCH ×6 (01:14→21:00)
[2018-09-05] MEDS: ACCU-CHEK XX SCH ×7 (01:14→21:00)
[2018-09-05] MEDS: TPN 1,000 ML IV SCH ×2 (05:27→22:30)
[2018-09-05] MEDS: LEVOTHYROXINE 50 MCG TAB PO SCH (05:42)
[2018-09-05] MEDS: INSULIN GLARGINE [LANTus] (100 UNITS/ML) SYG SC SCH ×2 (08:12→22:35)
--- NOTE | 2018-09-05 08:38 | PN ---
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 Other findings at the time of surgery include mild to moderate ascites, and fine, nodularity of the liver - cirrhosis?-, and inflammation extending from the transverse colon mesentary to the pancreas, which felt firm). Decision to have the next dialysis as per nephrology. 3 Pt is on O2 ( 2 l/min) , and on Levophed. He is due to have dialysis this am at 0800. Stable but still critical 3 Pt is w/o nausea, tolerating some liquids, and says he is passing some gas.Pt does not move well which was also the case pre-op but persists due to post op pain. 3 POD #6 doing well. Path shows T3N0 adenocarcinoma, and T4N0 GIST w/ 1 tumor implant 3 POD #8 Still confused, eats when prompted, not ambulating well 3 POD #9 Pt has an entero-cutaneous fistula. WBC is sl elevated from yesterday 3 POD #12 Stable fistula. Normal wbc, low albumin. TPN is in place 3 POD #13 400 cc of stool per fistula overnight ( 1300 in 24 hrs ? - unclear). TPN is ongoing. Pt is stable w/ good labs 3 POD #14 300 cc of stool now more bilious as the stool becomes mostly enteric secretions. TPN. Dialysis today 3 POD #16 550 cc over 24 hrs, and thick liquid , and no gas overnight. VSS, and normal wbc 3 POD #17 600 -900 cc of dark liquid stool and gas. VSS. Anemic and normal wbc. No ANTB x 2 days 3 POD #18 Liquid dark, greenish stool ( 600-900), low BP, anemia, and normal wbc. No sign of sepsis 3 POD #20 Fistula output is dropping. BP is stable off of pressors x 12 hrs. Normal wbc 3 POD #21 Unsure of fistula output for yesterday. Stable off of pressors 3 POD#22: Nursing reports trend of 650-400 daily output over past 2 days; abdomen soft, ND: Pt awake but non-verbal, abdomen is soft, afebrile, HCT stable, WBC WNL Result Diagram: 09/05/18 0613 09/05/18 0613 Results 24hrs Laboratory Tests Test 09/04/18 09:35 09/04/18 12:16 09/04/18 17:51 09/04/18 20:26 Bedside Glucose 270 H 193 162 162 Test 09/05/18 01:07 09/05/18 05:29 09/05/18 06:13 09/05/18 08:03 Bedside Glucose 196 138 149 White Blood Count 5.7 Red Blood Count 2.83 L Hemoglobin 8.3 L Hematocrit 26.5 L Mean Corpuscular 93.6 Volume Mean Corpuscular 29.3 Hemoglobin Mean Corpuscular 31.3 L Hemoglobin Concent Red Cell 17.4 H Distribution Width Platelet Count 159 Mean Platelet Volume 11.5 H Immature 1.600 H Granulocytes % Neutrophils % 67.9 Lymphocytes % 10.7 L Monocytes % 14.5 H Eosinophils % 3.9 Basophils % 1.4 Nucleated Red Blood 0.0 Cells % Immature 0.090 H Granulocytes # Neutrophils # 3.9 Lymphocytes # 0.6 L Monocytes # 0.8 Eosinophils # 0.2 Basophils # 0.1 Nucleated Red Blood 0.0 Cells # Sodium Level 136 Potassium Level 3.6 Chloride Level 100 Carbon Dioxide Level 22 Anion Gap 14 H Blood Urea Nitrogen 58 H Creatinine 3.68 H Est Glomerular Filtrat Rate mL/min Glucose Level 131 Calcium Level 9.5 Phosphorus Level 2.3 L Magnesium Level 1.8 Subjective 24 Hr Interval Summary Subjective hx not possible: pt non-verbal Exam/Review of Systems Exam Vitals Vital Signs Date Temp Pulse Resp B/P (MAP) Pulse Ox O2 O2 Flow FiO2 Time Delivery Rate 09/05/18 82 08:16 09/05/18 98.7 16 93/45 (61) 98 Room Air 07:31 09/04/18 21 14:38 09/02/18 2.0 10:00 Intake and Output 09/04/18 09/04/18 09/05/18 1515:00 23:00 07:00 IntakeIntake Total 948 ml 220 ml OutputOutput Total 4000 ml 100 ml 300 ml BalanceBalance -4000 ml 848 ml -80 ml Constitutional: non-verbal Respiratory: clear to auscultation Cardiovascular: regular rate and rhythm Gastrointestinal: soft (fistula with enteric contents in bag, ND) Results Results 24hrs Laboratory Tests Test 09/04/18 09:35 09/04/18 12:16 09/04/18 17:51 09/04/18 20:26 Bedside Glucose 270 H 193 162 162 Test 09/05/18 01:07 09/05/18 05:29 09/05/18 06:13 09/05/18 08:03 Bedside Glucose 196 138 149 White Blood Count 5.7 Red Blood Count 2.83 L Hemoglobin 8.3 L Hematocrit 26.5 L Mean Corpuscular 93.6 Volume Mean Corpuscular 29.3 Hemoglobin Mean Corpuscular 31.3 L Hemoglobin Concent Red Cell 17.4 H Distribution Width Platelet Count 159 Mean Platelet Volume 11.5 H Immature 1.600 H Granulocytes % Neutrophils % 67.9 Lymphocytes % 10.7 L Monocytes % 14.5 H Eosinophils % 3.9 Basophils % 1.4 Nucleated Red Blood 0.0 Cells % Immature 0.090 H Granulocytes # Neutrophils # 3.9 Lymphocytes # 0.6 L Monocytes # 0.8 Eosinophils # 0.2 Basophils # 0.1 Nucleated Red Blood 0.0 Cells # Sodium Level 136 Potassium Level 3.6 Chloride Level 100 Carbon Dioxide Level 22 Anion Gap 14 H Blood Urea Nitrogen 58 H Creatinine 3.68 H Est Glomerular Filtrat Rate mL/min Glucose Level 131 Calcium Level 9.5 Phosphorus Level 2.3 L Magnesium Level 1.8 Medications Medication Current Medications Ondansetron HCl (Zofran Inj) 4 mg Q6H PRN IV NAUSEA/VOMITING Last administered on 08/19/18at 12:55; Admin Dose 4 MG; Start 08/02/18 at 13:00 Diagnostic Test (Pha) (Accu-Chek) 1 ea 02 XX Last administered on 09/05/18at 01:14; Admin Dose 1 EA; Start 2/16/19 at 02:00 Glucose (Glutose) 15 gm Q15M PRN PO DECREASED GLUCOSE; Start 08/02/18 at 13:30 Glucose (Glutose) 22.5 gm Q15M PRN PO DECREASED GLUCOSE; Start 08/02/18 at 13:30 Dextrose (D50w Syringe) 25 ml Q15M PRN IV DECREASED GLUCOSE Last administered on 09/02/18at 03:28; Admin Dose 25 ML; Start 08/02/18 at 13:30 Dextrose (D50w Syringe) 50 ml Q15M PRN IV DECREASED GLUCOSE Last administered on 09/02/18at 01:02; Admin Dose 50 ML; Start 08/02/18 at 13:30 Glucagon (Glucagen) 1 mg Q15M PRN IM DECREASED GLUCOSE; Start 08/02/18 at 13:30 Glucose (Glutose) 15 gm Q15M PRN BUCCAL DECREASED GLUCOSE; Start 08/02/18 at 13:30 Cholecalciferol (Vitamin D) 1,000 unit DAILY PO Last administered on 09/04/18 09:51; Admin Dose 1,000 UNIT; Start 08/03/18 at 09:00 Folic Acid (Folic Acid) 1 mg DAILY PO Last administered on 09/04/18 09:51; Admin Dose 1 MG; Start 08/03/18 at 09:00 Midodrine (Proamatine) 5 mg ON DIALYSIS DAYS PO Last administered on 09/04/18 09:50; Admin Dose 5 MG; Start 08/02/18 at 18:00 Gabapentin (Neurontin) 100 mg DAILY PO Last administered on 08/13/18 09:07; Admin Dose 100 MG; Start 08/07/18 at 11:30; Status Hold Phenol (Cepastat Lozenge) 1 lozenge Q1H PRN MT COUGH Last administered on 08/08/18 02:34; Admin Dose 1 LOZENGE; Start 08/07/18 at 23:00 Heparin Sodium (Porcine) (Heparin (1000 Units/ml)) 6,100 unit AFTER DIALYSIS CATHETER Last administered on 09/04/18 14:18; Admin Dose 6,100 UNIT; Start 08/16/18 at 22:30 Acetaminophen (Tylenol Tab) 650 mg Q6H PRN PO MILD PAIN(1-3)OR ELEVATED TEMP Last administered on 09/01/18 03:40; Admin Dose 325 MG; Start 08/18/18 at 05:30 Levothyroxine Sodium (Synthroid) 50 mcg DAILY@06 PO Last administered on 09/05/18 05:42; Admin Dose 50 MCG; Start 08/20/18 at 06:00 Famotidine (Pepcid) 20 mg DAILY PO Last administered on 09/04/18 09:51; Admin Dose 20 MG; Start 08/21/18 at 09:00 Apixaban (Eliquis) 2.5 mg BID PO Last administered on 08/27/18 21:24; Admin Dose 2.5 MG; Start 08/21/18 at 09:30; Status Hold Diagnostic Test (Pha) (Accu-Chek) 1 ea Q4 XX Last administered on 09/05/18 05:43; Admin Dose 1 EA; Start 08/23/18 at 21:00 Fat Emulsion Intravenous 250 ml @ 21 mls/hr DAILY IV Last administered on 09/04/18 11:11; Admin Dose 21 MLS/HR; Start 08/24/18 at 14:00 Total Parenteral Nutrition 1,000 ml @ 65 mls/hr [id number] IV Last administered on 09/05/18 05:27; Admin Dose 65 MLS/HR; Start 08/24/18 at 16:00 Albumin Human 100 ml @ 100 mls/hr WITH DIALYSIS PRN IV SBP <90 DURING DIALYSIS Last administered on 09/04/18 12:42; Admin Dose 100 MLS/HR; Start 08/26/18 at 08:30 Insulin Aspart (Novolog Insulin Pen) NOVOLOG *MODERATE* ALGORITHM Q4 SC Last administered on 09/05/18 01:14; Admin Dose 1 UNIT; Start 08/27/18 at 13:00 Fluticasone Propionate (Flonase 0.05% Nasal) 1 spray BID NASAL Last administered on 09/04/18 20:28; Admin Dose 1 SPRAY; Start 08/28/18 at 21:00; Stop 08/26/19 at 22:00 Albuterol/ Ipratropium (Duoneb) 3 ml Q6HWA RESP THERAPY HHN Last administered on 09/04/18 20:01; Admin Dose 3 ML; Start 08/28/18 at 20:00 Albuterol/ Ipratropium (Duoneb) 3 ml Q2H RESP THERAPY PRN HHN shortness of breath; Start 08/28/18 at 19:00 Loperamide HCl (Imodium Cap) 4 mg BID PO Last administered on 09/04/18at 21:20; Admin Dose 4 MG; Start 08/31/18 at 21:00 Ferrous Sulfate (Ferrous Sulfate (Ec)) 325 mg BID PO Last administered on at 20:27; Admin Dose 325 MG; Start 08/31/18 at 21:00 Loratadine (Claritin) 10 mg Q48H NGT Last administered on 09/04/18at 09:51; Admin Dose 10 MG; Start 09/02/18 at 08:30; Stop 09/11/18 at 23:59 Insulin Glargine (Lantus) 20 units BID@0800,2000 SC Last administered on 09/05/18at 08:12; Admin Dose 20 UNITS; Start 09/03/18 at 20:00 CONCHITA ARVIZU M.D. Sep 05, 2018 08:38
[2018-09-05] MEDS: ALBUTEROL/IPRATROPIUM (NEB) 3 ML AMP HHN SCH ×3 (08:48→20:06)
[2018-09-05] MEDS: FAT EMULSION 20% 250 ML IV SCH (08:59)
[2018-09-05] MEDS: FAMOTIDINE 20 MG TAB PO SCH (09:06)
[2018-09-05] MEDS: FOLIC ACID 1 MG TAB PO SCH (09:06)
[2018-09-05] MEDS: CHOLECALCIFEROL 1,000 UNIT TAB PO SCH (09:06)
[2018-09-05] MEDS: LOPERAMIDE 2 MG CAP PO SCH ×2 (09:07→22:31)
[2018-09-05] MEDS: FERROUS SULFATE (EC) 325 MG TAB PO SCH ×2 (09:07→22:31)
[2018-09-05] MEDS: FLUTICASONE 0.05% 16 GM NAS SPRAY NASAL SCH ×2 (09:14→22:31)
--- NOTE | 2018-09-05 09:14 | PN ---
Date/Time of Note Date/Time of Note DATE: 09/05/18 TIME: 09:14 Assessment/Plan VTE Prophylaxis Risk score (from Ns)>0 risk: 14 SCD applied (from Ns): Yes Pharmacological prophylaxis: NA/contraindicated Pharm contraindication: anticoag not tolerated Lines[facility]Catheters [facility] Urinary Cath still in place: No Assessment/Plan Assessment/Plan 1. Colonic mass at the splenic flexure and ascending colon s/p subtotal colectomy and small bowel resection on 08/14/18 - Continue current care and monitor output from ostomy bag - General surgery on board and appreciate consultation. - Continue TPN - GI on board and appreciate recommendations. 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 Will need 36 months of adjuvant therapy for GIST tumor once abdominal wounds healed but no further intervention for adenocarcinoma - Cardiology consultation appreciated - ID consulted for possible prophylaxis abx 2. End-stage renal disease on HD - Nephrology on board for HD management and appreciate recommendations 3. Anemia of chronic disease - stable - continue monitoring - holding Eliquis at this time given low hgb levels 4. Hypoglycemia- improved - sugars continue to fluctuate but stable 5. ?Shock secondary to hemodynamics vs infectious etiology- resolved - ID on board and appreciate recommendations 6. Acute toxic encephalopathy - Neurology on board and appreciate recommendations - MRI unable to be done due to pacemaker 7. Arm swelling, right brachial DVT, thrombosis of left cephalic vein - Ultrasound showed right brachial DVT as well as thrombosis of the left cephalic vein. Patient's midline on his right arm is the likely culprit for the DVT on his right brachial vein. - monitor, warm compresses. - Patient is likely an hypercoagulable state due to his carcinoma. Will restart Eliquis when possible - clogged fistula catheter (HeRO), consulted Dr. Coelho for recs as he is patient's vascular surgeon, recommended Horacio for now until we can fully anticoagulate. Follow as outpatient 8. Diabetes - A1c noted - ISS and accuchecks 9. Esophagitis - Continue PPI 10. Hypothyroidism - Continue home Synthroid 11. Nonischemic CM - pacer in place - Chronic per outpatient Pail Tester 12. Mild acute on chronic systolic HF - fluid removal during HD 13. Disposition - Pending Willard - continue current care and monitor output from ostomy Result Diagram: 09/05/18 0613 09/05/18 0613 Results 24hrs Laboratory Tests Test 09/04/18 09:35 09/04/18 12:16 09/04/18 17:51 09/04/18 20:26 Bedside Glucose 270 H 193 162 162 Test 09/05/18 01:07 09/05/18 05:29 09/05/18 06:13 09/05/18 08:03 Bedside Glucose 196 138 149 White Blood Count 5.7 Red Blood Count 2.83 L Hemoglobin 8.3 L Hematocrit 26.5 L Mean Corpuscular 93.6 Volume Mean Corpuscular 29.3 Hemoglobin Mean Corpuscular 31.3 L Hemoglobin Concent Red Cell 17.4 H Distribution Width Platelet Count 159 Mean Platelet Volume 11.5 H Immature 1.600 H Granulocytes % Neutrophils % 67.9 Lymphocytes % 10.7 L Monocytes % 14.5 H Eosinophils % 3.9 Basophils % 1.4 Nucleated Red Blood 0.0 Cells % Immature 0.090 H Granulocytes # Neutrophils # 3.9 Lymphocytes # 0.6 L Monocytes # 0.8 Eosinophils # 0.2 Basophils # 0.1 Nucleated Red Blood 0.0 Cells # Sodium Level 136 Potassium Level 3.6 Chloride Level 100 Carbon Dioxide Level 22 Anion Gap 14 H Blood Urea Nitrogen 58 H Creatinine 3.68 H Est Glomerular Filtrat Rate mL/min Glucose Level 131 Calcium Level 9.5 Phosphorus Level 2.3 L Magnesium Level 1.8 Subjective 24 Hr Interval Summary Free Text/Dictation Patient answering simple questions but still fatigued. Denies any pain or discomfort. Exam/Review of Systems Exam Vitals Vital Signs Date Temp Pulse Resp B/P (MAP) Pulse Ox O2 O2 Flow FiO2 Time Delivery Rate 09/05/18 88 20 95 21 08:48 09/05/18 98.7 93/45 (61) Room Air 07:31 09/02/18 2.0 10:00 Intake and Output 09/04/18 09/04/18 09/05/18 1515:00 23:00 07:00 IntakeIntake Total 948 ml 220 ml OutputOutput Total 4000 ml 100 ml 300 ml BalanceBalance -4000 ml 848 ml -80 ml Exam General: Patient is laying in bed and answers questions appropriately intermittently Respiratory: Clear to auscultation bilaterally. no wheezing. diminished at bases Cardiovascular: regular rate and rhythm, no obvious murmurs Gastrointestinal: soft, tender to palpation, bowel sounds heard. fistula present with output in ostomy bag Neurological: Moves all extremities spontaneously Ext: swelling of LUE and LE bilaterally Skin: No new skin lesions Results Results 24hrs Laboratory Tests Test 09/04/18 09:35 09/04/18 12:16 09/04/18 17:51 09/04/18 20:26 Bedside Glucose 270 H 193 162 162 Test 09/05/18 01:07 09/05/18 05:29 09/05/18 06:13 09/05/18 08:03 Bedside Glucose 196 138 149 White Blood Count 5.7 Red Blood Count 2.83 L Hemoglobin 8.3 L Hematocrit 26.5 L Mean Corpuscular 93.6 Volume Mean Corpuscular 29.3 Hemoglobin Mean Corpuscular 31.3 L Hemoglobin Concent Red Cell 17.4 H Distribution Width Platelet Count 159 Mean Platelet Volume 11.5 H Immature 1.600 H Granulocytes % Neutrophils % 67.9 Lymphocytes % 10.7 L Monocytes % 14.5 H Eosinophils % 3.9 Basophils % 1.4 Nucleated Red Blood 0.0 Cells % Immature 0.090 H Granulocytes # Neutrophils # 3.9 Lymphocytes # 0.6 L Monocytes # 0.8 Eosinophils # 0.2 Basophils # 0.1 Nucleated Red Blood 0.0 Cells # Sodium Level 136 Potassium Level 3.6 Chloride Level 100 Carbon Dioxide Level 22 Anion Gap 14 H Blood Urea Nitrogen 58 H Creatinine 3.68 H Est Glomerular Filtrat Rate mL/min Glucose Level 131 Calcium Level 9.5 Phosphorus Level 2.3 L Magnesium Level 1.8 Medications Medication Current Medications Ondansetron HCl (Zofran Inj) 4 mg Q6H PRN IV NAUSEA/VOMITING Last administered on 08/19/18at 12:55; Admin Dose 4 MG; Start 08/02/18 at 13:00 Diagnostic Test (Pha) (Accu-Chek) 1 ea 02 XX Last administered on 09/05/18at 01:14; Admin Dose 1 EA; Start 08/03/18 at 02:00 Glucose (Glutose) 15 gm Q15M PRN PO DECREASED GLUCOSE; Start 08/02/18 at 13:30 Glucose (Glutose) 22.5 gm Q15M PRN PO DECREASED GLUCOSE; Start 08/02/18 at 13:30 Dextrose (D50w Syringe) 25 ml Q15M PRN IV DECREASED GLUCOSE Last administered on 09/02/18 03:28; Admin Dose 25 ML; Start 08/02/18 at 13:30 Dextrose (D50w Syringe) 50 ml Q15M PRN IV DECREASED GLUCOSE Last administered on 09/02/18 01:02; Admin Dose 50 ML; Start 08/02/18 at 13:30 Glucagon (Glucagen) 1 mg Q15M PRN IM DECREASED GLUCOSE; Start 08/02/18 at 13:30 Glucose (Glutose) 15 gm Q15M PRN BUCCAL DECREASED GLUCOSE; Start 08/02/18 at 13:30 Cholecalciferol (Vitamin D) 1,000 unit DAILY PO Last administered on 09/04/18 09:51; Admin Dose 1,000 UNIT; Start 08/03/18 at 09:00 Folic Acid (Folic Acid) 1 mg DAILY PO Last administered on 09/04/18 09:51; Admin Dose 1 MG; Start 08/03/18 at 09:00 Midodrine (Proamatine) 5 mg ON DIALYSIS DAYS PO Last administered on 09/04/18 09:50; Admin Dose 5 MG; Start 08/02/18 at 18:00 Gabapentin (Neurontin) 100 mg DAILY PO Last administered on 08/13/18 09:07; Admin Dose 100 MG; Start 08/07/18 at 11:30; Status Hold Phenol (Cepastat Lozenge) 1 lozenge Q1H PRN MT COUGH Last administered on 08/08/18 02:34; Admin Dose 1 LOZENGE; Start 08/07/18 at 23:00 Heparin Sodium (Porcine) (Heparin (1000 Units/ml)) 6,100 unit AFTER DIALYSIS CATHETER Last administered on 09/04/18 14:18; Admin Dose 6,100 UNIT; Start 08/16/18 at 22:30 Acetaminophen (Tylenol Tab) 650 mg Q6H PRN PO MILD PAIN(1-3)OR ELEVATED TEMP Last administered on 09/01/18 03:40; Admin Dose 325 MG; Start 08/18/18 at 05:30 Levothyroxine Sodium (Synthroid) 50 mcg DAILY@06 PO Last administered on 09/05/18 05:42; Admin Dose 50 MCG; Start 08/20/18 at 06:00 Famotidine (Pepcid) 20 mg DAILY PO Last administered on 09/04/18 09:51; Admin Dose 20 MG; Start 08/21/18 at 09:00 Apixaban (Eliquis) 2.5 mg BID PO Last administered on 08/27/18 21:24; Admin Dose 2.5 MG; Start 08/21/18 at 09:30; Status Hold Diagnostic Test (Pha) (Accu-Chek) 1 ea Q4 XX Last administered on 09/05/18 05:43; Admin Dose 1 EA; Start 08/23/18 at 21:00 Fat Emulsion Intravenous 250 ml @ 21 mls/hr DAILY IV Last administered on 09/04/18 11:11; Admin Dose 21 MLS/HR; Start 08/24/18 at 14:00 Total Parenteral Nutrition 1,000 ml @ 65 mls/hr [id number] IV Last administered on 09/05/18 05:27; Admin Dose 65 MLS/HR; Start 08/24/18 at 16:00 Albumin Human 100 ml @ 100 mls/hr WITH DIALYSIS PRN IV SBP <90 DURING DIALYSIS Last administered on 09/04/18 12:42; Admin Dose 100 MLS/HR; Start 08/26/18 at 08:30 Insulin Aspart (Novolog Insulin Pen) NOVOLOG *MODERATE* ALGORITHM Q4 SC Last administered on 09/05/18 01:14; Admin Dose 1 UNIT; Start 08/27/18 at 13:00 Fluticasone Propionate (Flonase 0.05% Nasal) 1 spray BID NASAL Last administered on 09/04/18 20:28; Admin Dose 1 SPRAY; Start 08/28/18 at 21:00; Stop 08/26/19 at 22:00 Albuterol/ Ipratropium (Duoneb) 3 ml Q6HWA RESP THERAPY HHN Last administered on 09/05/18 08:48; Admin Dose 3 ML; Start 08/28/18 at 20:00 Albuterol/ Ipratropium (Duoneb) 3 ml Q2H RESP THERAPY PRN HHN shortness of breath; Start 08/28/18 at 19:00 Loperamide HCl (Imodium Cap) 4 mg BID PO Last administered on 3/20/19at 21:20; Admin Dose 4 MG; Start 08/31/18 at 21:00 Ferrous Sulfate (Ferrous Sulfate (Ec)) 325 mg BID PO Last administered on 09/04/18at 20:27; Admin Dose 325 MG; Start 08/31/18 at 21:00 Loratadine (Claritin) 10 mg Q48H NGT Last administered on 09/04/18 09:51; Admin Dose 10 MG; Start 09/02/18 at 08:30; Stop 09/11/18 at 23:59 Insulin Glargine (Lantus) 20 units BID@0800,2000 SC Last administered on 09/05/18 08:12; Admin Dose 20 UNITS; Start 09/03/18 at 20:00 JO HURST MD Sep 05, 2018 09:14
[2018-09-05] MEDS: BALSAM PERU/CASTOR OIL 60 GM TUBE TOP SCH ×2 (09:27→22:32)
--- NOTE | 2018-09-05 09:36 | CONS ---
Assessment/Plan Assessment/Plan Assessment/Plan (Daily) 1 End-stage renal disease, on hemodialysis, mwf with mild CHF 2. 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 Hypotension. On Midodrine at home now worsening acne secondary to worsening anemia/sepsis 4. History of congestive heart failure.1 End-stage renal disease, on hemodialysis,mwf with mild CHF 5. Hypercholesterolemia. 6. Hx of total hip replacement. 7. leucocytosis, off pressor and trending down leukocytosis 8. Hypoglycemia. 9. Macrocytic hypochromic Anemia mixed etiology, recent blood loss and 2/2 kidney disease 10. 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% 12 Clotted left arm AV graft 13 b/lateral lower extremity edema 14 ams likely secondary to metabolic encephalopathy CT of the head is negative plan -HD MWF> HD tmw - Will give albumin/midodrine -TPN per surgery -Renally dose dose all meds -Consider doing an MRI/EEG given minimal improvement in the neurological status - avoid nephrotoxins Consultation Date/Type/Reason Admit Date/Time Aug 02, 2018 at 10:57 Initial Consult Date 08/03/18 Requesting Provider: DULCE GALINDO Date/Time of Note DATE: 09/05/18 TIME: 09:36 24 HR Interval Summary Free Text/Dictation This post HD yesterday with removal around 3 L Talk to the family at bedside Exam/Review of Systems Exam Vitals Vital Signs Date Temp Pulse Resp B/P (MAP) Pulse Ox O2 O2 Flow FiO2 Time Delivery Rate 09/05/18 88 20 95 21 08:48 09/05/18 98.7 93/45 (61) Room Air 07:31 09/02/18 2.0 10:00 Intake and Output 09/04/18 09/04/18 09/05/18 1515:00 23:00 07:00 IntakeIntake Total 948 ml 220 ml OutputOutput Total 4000 ml 100 ml 300 ml BalanceBalance -4000 ml 848 ml -80 ml Exam isabelle: supple Respiratory: dec breath sounds bases Cardiovascular: regular rate and rhythm, edema Abdomen: bag+, TTP Extremities: other (++) edema+= Results Result Diagram: 09/05/1813 09/05/18 0613 Results 24hrs Laboratory Tests Test 09/04/18 12:16 09/04/18 17:51 09/04/18 20:26 09/05/18 01:07 Bedside Glucose 193 162 162 196 Test 09/05/18 05:29 09/05/18 06:13 09/05/18 08:03 09/05/18 09:16 Bedside Glucose 138 149 156 White Blood Count 5.7 Red Blood Count 2.83 L Hemoglobin 8.3 L Hematocrit 26.5 L Mean Corpuscular 93.6 Volume Mean Corpuscular 29.3 Hemoglobin Mean Corpuscular 31.3 L Hemoglobin Concent Red Cell 17.4 H Distribution Width Platelet Count 159 Mean Platelet Volume 11.5 H Immature 1.600 H Granulocytes % Neutrophils % 67.9 Segmented 37 L Neutrophils % (Manual) Band Neutrophils % 33 H (Manual) Lymphocytes % 10.7 L Lymphocytes % 13 L (Manual) Reactive Lymphocytes 4 H % (Manual) Monocytes % 14.5 H Monocytes % (Manual) 10 Eosinophils % 3.9 Eosinophils % 2 (Manual) Basophils % 1.4 Metamyelocytes % 1 H (manual) Nucleated Red Blood 0.0 Cells % Immature 0.090 H Granulocytes # Neutrophils # 3.9 Neutrophils # 2.2 (Manual) Band Neutrophils # 1.8 H Lymphocytes (Manual) 0.7 L Lymphocytes # 0.6 L Reactive Lymphocytes 0.2 H # Monocytes # 0.8 Monocytes # (Manual) 0.5 Eosinophils # 0.2 Basophils # 0.1 Metamyelocytes # 0.0 Nucleated Red Blood 0.0 Cells # Toxic Granulation 2+ Platelet Estimate NORMAL Giant Platelets 1 H Polychromasia 2+ Hypochromasia 1+ Anisocytosis 1+ Spherocytes 1+ Sodium Level 136 Potassium Level 3.6 Chloride Level 100 Carbon Dioxide Level 22 Anion Gap 14 H Blood Urea Nitrogen 58 H Creatinine 3.68 H Est Glomerular Filtrat Rate mL/min Glucose Level 131 Calcium Level 9.5 Phosphorus Level 2.3 L Magnesium Level 1.8 Medications Medication Current Medications Ondansetron HCl (Zofran Inj) 4 mg Q6H PRN IV NAUSEA/VOMITING Last administered on 08/19/18at 12:55; Admin Dose 4 MG; Start 08/02/18 at 13:00 Diagnostic Test (Pha) (Accu-Chek) 1 ea 02 XX Last administered on 09/05/18 01:14; Admin Dose 1 EA; Start 08/03/18 at 02:00 Glucose (Glutose) 15 gm Q15M PRN PO DECREASED GLUCOSE; Start 08/02/18 at 13:30 Glucose (Glutose) 22.5 gm Q15M PRN PO DECREASED GLUCOSE; Start 08/02/18 at 13:30 Dextrose (D50w Syringe) 25 ml Q15M PRN IV DECREASED GLUCOSE Last administered on 09/02/18 03:28; Admin Dose 25 ML; Start 08/02/18 at 13:30 Dextrose (D50w Syringe) 50 ml Q15M PRN IV DECREASED GLUCOSE Last administered on 09/02/18 01:02; Admin Dose 50 ML; Start 08/02/18 at 13:30 Glucagon (Glucagen) 1 mg Q15M PRN IM DECREASED GLUCOSE; Start 08/02/18 at 13:30 Glucose (Glutose) 15 gm Q15M PRN BUCCAL DECREASED GLUCOSE; Start 08/02/18 at 13:30 Cholecalciferol (Vitamin D) 1,000 unit DAILY PO Last administered on 09/05/18 09:06; Admin Dose 1,000 UNIT; Start 08/03/18 at 09:00 Folic Acid (Folic Acid) 1 mg DAILY PO Last administered on 09/05/18 09:06; Admin Dose 1 MG; Start 08/03/18 at 09:00 Midodrine (Proamatine) 5 mg ON DIALYSIS DAYS PO Last administered on 09/04/18 09:50; Admin Dose 5 MG; Start 08/02/18 at 18:00 Gabapentin (Neurontin) 100 mg DAILY PO Last administered on 08/13/18 09:07; Admin Dose 100 MG; Start 08/07/18 at 11:30; Status Hold Phenol (Cepastat Lozenge) 1 lozenge Q1H PRN MT COUGH Last administered on 08/08/18 02:34; Admin Dose 1 LOZENGE; Start 08/07/18 at 23:00 Heparin Sodium (Porcine) (Heparin (1000 Units/ml)) 6,100 unit AFTER DIALYSIS CATHETER Last administered on 09/04/18 14:18; Admin Dose 6,100 UNIT; Start 08/16/18 at 22:30 Acetaminophen (Tylenol Tab) 650 mg Q6H PRN PO MILD PAIN(1-3)OR ELEVATED TEMP Last administered on 09/01/18 03:40; Admin Dose 325 MG; Start 08/18/18 at 05:30 Levothyroxine Sodium (Synthroid) 50 mcg DAILY@06 PO Last administered on 09/05/18 05:42; Admin Dose 50 MCG; Start 08/20/18 at 06:00 Famotidine (Pepcid) 20 mg DAILY PO Last administered on 09/05/18 09:06; Admin Dose 20 MG; Start 08/21/18 at 09:00 Apixaban (Eliquis) 2.5 mg BID PO Last administered on 08/27/18 21:24; Admin Dose 2.5 MG; Start 08/21/18 at 09:30; Status Hold Diagnostic Test (Pha) (Accu-Chek) 1 ea Q4 XX Last administered on 09/05/18 09:16; Admin Dose 1 EA; Start 08/23/18 at 21:00 Fat Emulsion Intravenous 250 ml @ 21 mls/hr DAILY IV Last administered on 09/05/18 08:59; Admin Dose 21 MLS/HR; Start 08/24/18 at 14:00 Total Parenteral Nutrition 1,000 ml @ 65 mls/hr [id number] IV Last administered on 09/05/18 05:27; Admin Dose 65 MLS/HR; Start 08/24/18 at 16:00 Albumin Human 100 ml @ 100 mls/hr WITH DIALYSIS PRN IV SBP <90 DURING DIALYSIS Last administered on 09/04/18 12:42; Admin Dose 100 MLS/HR; Start 08/26/18 at 08:30 Insulin Aspart (Novolog Insulin Pen) NOVOLOG *MODERATE* ALGORITHM Q4 SC Last administered on 09/05/18 09:21; Admin Dose 2 UNIT; Start 08/27/18 at 13:00 Fluticasone Propionate (Flonase 0.05% Nasal) 1 spray BID NASAL Last administered on 09/05/18 09:14; Admin Dose 1 SPRAY; Start 08/28/18 at 21:00; Stop 08/26/19 at 22:00 Albuterol/ Ipratropium (Duoneb) 3 ml Q6HWA RESP THERAPY HHN Last administered on 09/05/18 08:48; Admin Dose 3 ML; Start 08/28/18 at 20:00 Albuterol/ Ipratropium (Duoneb) 3 ml Q2H RESP THERAPY PRN HHN shortness of aaron th; Start 08/28/18 at 19:00 Loperamide HCl (Imodium Cap) 4 mg BID PO Last administered on 09/05/18 09:07; Admin Dose 4 MG; Start 08/31/18 at 21:00 Ferrous Sulfate (Ferrous Sulfate (Ec)) 325 mg BID PO Last administered on 09/05/18at 09:07; Admin Dose 325 MG; Start 08/31/18 at 21:00 Loratadine (Claritin) 10 mg Q48H NGT Last administered on 09/04/18 09:51; Admin Dose 10 MG; Start 09/02/18 at 08:30; Stop 09/11/18 at 23:59 Insulin Glargine (Lantus) 20 units BID@0800,2000 SC Last administered on 09/05/18at 08:12; Admin Dose 20 UNITS; Start 09/03/18 at 20:00 Sodium Phosphate 15 mmol/Sodium Chloride 255 ml @ 63.75 mls/ hr ONCE ONCE IV* ; Start 09/05/18 at 11:00; Stop 09/05/18 at 14:59 NNEKA FRITZ MD Sep 05, 2018 09:36
[2018-09-05] MEDS ORDERED: SODIUM PHOSPHATE 15 MMOL in SOD CHLORIDE 0.9% 250 ML IV* ONE (11:00)
--- NOTE | 2018-09-05 13:26 | CONS ---
Assessment/Plan Assessment/Plan Hospital Course (Demo Recall) Awake, looks comfortable Microbiology: Blood cultures remain negative Antimicrobials: None Indwelling: Right IJ triple-lumen catheter, right femoral Filemon, left upper extremity AV graft or fistula Physical examination: Chronically ill-appearing elderly man who is noncommunicative in no distress. Head atraumatic normocephalic. Sclera nonicteric. Neck is supple, chest rise symmetrical. Heart: S1-S2. Abdomen soft bowel sounds present. Extremities without cyanosis. 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 ESRD/HD Clotted LUE AVF R brachial DVT DM CAD/PPM R fem filemon Plan: Clinically unchanged, stable, repeat bld cx negative, continue present care, TPN, HD per renal. Pending Willard evaluation Discussed with family at bedside Consultation Date/Type/Reason Admit Date/Time Aug 02, 2018 at 10:57 Initial Consult Date 08/09/18 Type of Consult id Requesting Provider: DULCE GALINDO Date/Time of Note DATE: 09/05/18 TIME: 13:25 Exam/Review of Systems Exam Vitals Vital Signs Date Temp Pulse Resp B/P (MAP) Pulse Ox O2 O2 Flow FiO2 Time Delivery Rate 09/05/18 86 12:02 09/05/18 98.4 18 103/44 98 Nasal 11:15 (63) Cannula 09/05/18 21 08:48 09/02/18 2.0 10:00 Intake and Output 09/04/18 09/04/18 09/05/18 1515:00 23:00 07:00 IntakeIntake Total 948 ml 220 ml OutputOutput Total 4000 ml 100 ml 300 ml BalanceBalance -4000 ml 848 ml -80 ml Results Result Diagram: 09/05/18 0613 09/05/18 0613 Results 24hrs Laboratory Tests Test 09/04/18 17:51 09/04/18 20:26 09/05/18 01:07 09/05/18 05:29 Bedside Glucose 162 162 196 138 Test 09/05/18 06:13 09/05/18 08:03 09/05/18 09:16 09/05/18 12:02 White Blood Count 5.7 Red Blood Count 2.83 L Hemoglobin 8.3 L Hematocrit 26.5 L Mean Corpuscular 93.6 Volume Mean Corpuscular 29.3 Hemoglobin Mean Corpuscular 31.3 L Hemoglobin Concent Red Cell 17.4 H Distribution Width Platelet Count 159 Mean Platelet Volume 11.5 H Immature 1.600 H Granulocytes % Neutrophils % 67.9 Segmented 37 L Neutrophils % (Manual) Band Neutrophils % 33 H (Manual) Lymphocytes % 10.7 L Lymphocytes % 13 L (Manual) Reactive Lymphocytes 4 H % (Manual) Monocytes % 14.5 H Monocytes % (Manual) 10 Eosinophils % 3.9 Eosinophils % 2 (Manual) Basophils % 1.4 Metamyelocytes % 1 H (manual) Nucleated Red Blood 0.0 Cells % Immature 0.090 H Granulocytes # Neutrophils # 3.9 Neutrophils # 2.2 (Manual) Band Neutrophils # 1.8 H Lymphocytes (Manual) 0.7 L Lymphocytes # 0.6 L Reactive Lymphocytes 0.2 H # Monocytes # 0.8 Monocytes # (Manual) 0.5 Eosinophils # 0.2 Basophils # 0.1 Metamyelocytes # 0.0 Nucleated Red Blood 0.0 Cells # Toxic Granulation 2+ Platelet Estimate NORMAL Giant Platelets 1 H Polychromasia 2+ Hypochromasia 1+ Anisocytosis 1+ Spherocytes 1+ Sodium Level 136 Potassium Level 3.6 Chloride Level 100 Carbon Dioxide Level 22 Anion Gap 14 H Blood Urea Nitrogen 58 H Creatinine 3.68 H Est Glomerular Filtrat Rate mL/min Glucose Level 131 Calcium Level 9.5 Phosphorus Level 2.3 L Magnesium Level 1.8 Bedside Glucose 149 156 153 Medications Medication Current Medications Ondansetron HCl (Zofran Inj) 4 mg Q6H PRN IV NAUSEA/VOMITING Last administered on 08/19/18at 12:55; Admin Dose 4 MG; Start 08/02/18 at 13:00 Diagnostic Test (Pha) (Accu-Chek) 1 ea 02 XX Last administered on 09/05/18at 01:14; Admin Dose 1 EA; Start 08/03/18 at 02:00 Glucose (Glutose) 15 gm Q15M PRN PO DECREASED GLUCOSE; Start 08/02/18 at 13:30 Glucose (Glutose) 22.5 gm Q15M PRN PO DECREASED GLUCOSE; Start 08/02/18 at 13:30 Dextrose (D50w Syringe) 25 ml Q15M PRN IV DECREASED GLUCOSE Last administered on 09/02/18 03:28; Admin Dose 25 ML; Start 08/02/18 at 13:30 Dextrose (D50w Syringe) 50 ml Q15M PRN IV DECREASED GLUCOSE Last administered on 09/02/18 01:02; Admin Dose 50 ML; Start 08/02/18 at 13:30 Glucagon (Glucagen) 1 mg Q15M PRN IM DECREASED GLUCOSE; Start 08/02/18 at 13:30 Glucose (Glutose) 15 gm Q15M PRN BUCCAL DECREASED GLUCOSE; Start 08/02/18 at 13 :30 Cholecalciferol (Vitamin D) 1,000 unit DAILY PO Last administered on 09/05/18 09:06; Admin Dose 1,000 UNIT; Start 08/03/18 at 09:00 Folic Acid (Folic Acid) 1 mg DAILY PO Last administered on 09/05/18 09:06; Admin Dose 1 MG; Start 08/03/18 at 09:00 Midodrine (Proamatine) 5 mg ON DIALYSIS DAYS PO Last administered on 09/04/18 09:50; Admin Dose 5 MG; Start 08/02/18 at 18:00 Gabapentin (Neurontin) 100 mg DAILY PO Last administered on 08/13/18 09:07; Admin Dose 100 MG; Start 08/07/18 at 11:30; Status Hold Phenol (Cepastat Lozenge) 1 lozenge Q1H PRN MT COUGH Last administered on 08/08/18 02:34; Admin Dose 1 LOZENGE; Start 08/07/18 at 23:00 Heparin Sodium (Porcine) (Heparin (1000 Units/ml)) 6,100 unit AFTER DIALYSIS CATHETER Last administered on 09/04/18 14:18; Admin Dose 6,100 UNIT; Start 08/16/18 at 22:30 Acetaminophen (Tylenol Tab) 650 mg Q6H PRN PO MILD PAIN(1-3)OR ELEVATED TEMP Last administered on 09/01/18 03:40; Admin Dose 325 MG; Start 08/18/18 at 05:30 Levothyroxine Sodium (Synthroid) 50 mcg DAILY@06 PO Last administered on 09/05/18 05:42; Admin Dose 50 MCG; Start 08/20/18 at 06:00 Famotidine (Pepcid) 20 mg DAILY PO Last administered on 09/05/18 09:06; Admin Dose 20 MG; Start 08/21/18 at 09:00 Apixaban (Eliquis) 2.5 mg BID PO Last administered on 08/27/18 21:24; Admin Dose 2.5 MG; Start 08/21/18 at 09:30; Status Hold Diagnostic Test (Pha) (Accu-Chek) 1 ea Q4 XX Last administered on 09/05/18 12:06; Admin Dose 1 EA; Start 08/23/18 at 21:00 Fat Emulsion Intravenous 250 ml @ 21 mls/hr DAILY IV Last administered on 09/05/18 08:59; Admin Dose 21 MLS/HR; Start 08/24/18 at 14:00 Total Parenteral Nutrition 1,000 ml @ 65 mls/hr [id number] IV Last administered on 09/05/18 05:27; Admin Dose 65 MLS/HR; Start 08/24/18 at 16:00 Albumin Human 100 ml @ 100 mls/hr WITH DIALYSIS PRN IV SBP <90 DURING DIALYSIS Last administered on 09/04/18 12:42; Admin Dose 100 MLS/HR; Start 08/26/18 at 08:30 Insulin Aspart (Novolog Insulin Pen) NOVOLOG *MODERATE* ALGORITHM Q4 SC Last administered on 09/05/18 12:06; Admin Dose 2 UNIT; Start 08/27/18 at 13:00 Fluticasone Propionate (Flonase 0.05% Nasal) 1 spray BID NASAL Last administered on 09/05/18 09:14; Admin Dose 1 SPRAY; Start 08/28/18 at 21:00; Stop 08/26/19 at 22:00 Albuterol/ Ipratropium (Duoneb) 3 ml Q6HWA RESP THERAPY HHN Last administered on 09/05/18 08:48; Admin Dose 3 ML; Start 08/28/18 at 20:00 Albuterol/ Ipratropium (Duoneb) 3 ml Q2H RESP THERAPY PRN HHN shortness of breath; Start 08/28/18 at 19:00 Loperamide HCl (Imodium Cap) 4 mg BID PO Last administered on 09/05/18 09:07; Admin Dose 4 MG; Start 08/31/18 at 21:00 Ferrous Sulfate (Ferrous Sulfate (Ec)) 325 mg BID PO Last administered on 09/05/18 09:07; Admin Dose 325 MG; Start 08/31/18 at 21:00 Loratadine (Claritin) 10 mg Q48H NGT Last administered on 09/04/18 09:51; Admin Dose 10 MG; Start 09/02/18 at 08:30; Stop 09/11/18 at 23:59 Insulin Glargine (Lantus) 20 units BID@0800,2000 SC Last administered on 09/05/18 08:12; Admin Dose 20 UNITS; Start 09/03/18 at 20:00 Sodium Phosphate 15 mmol/Sodium Chloride 255 ml @ 63.75 mls/ hr ONCE ONCE IV* Last administered on 09/05/18 13:18; Admin Dose 63.75 MLS/HR; Start 09/05/18 at 11:00; Stop 09/05/18 at 14:59 CHIN FORD NP Sep 05, 2018 13:25
--- NOTE | 2018-09-05 15:10 | CONS ---
Assessment/Plan Assessment/Plan Hospital Course (Demo Recall) #Adenocarcinoma of ascending Colon ca -final pathology report reveals 2 separate masses with different pathology results. -the ascending colon mass is consistent with a Moderately-differentiated adenocarcinoma, invading through the muscularis propria, with all 0/18 negative for disease, 3.6 x 2.8 x 1.1 cm. -the splenic flexture mass is 10.5 x 9.0 x 7.0 cm.and consistent with a high grade GIST tumor -CT does not reveal evidence of distant mets -in terms of the adenocarcinoma, pt does not need adjuvant chemotherapy given this was a stage IIA tumor. 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 he is now on D 10 #Hypothyroidism - Continue Synthroid #Nonischemic CM - pacer in place - nonchronic Thank you for the opportunity to participate in this patients care A total of 40 minutes of face to face time was spent speaking with the patient, of which greater than 50% was spent in counseling and coordination of care and the detailed question and answer session. Consultation Date/Type/Reason Admit Date/Time Aug 02, 2018 at 10:57 Initial Consult Date 08/09/18 Type of Consult oncology Reason for Consultation colon cancer Requesting Provider: DULCE GALINDO Date/Time of Note DATE: 09/05/18 TIME: 15:09 24 HR Interval Summary Free Text/Dictation pt still very confused Exam/Review of Systems Exam Vitals Vital Signs Date Temp Pulse Resp B/P (MAP) Pulse Ox O2 O2 Flow FiO2 Time Delivery Rate 09/05/18 86 12:02 09/05/18 98.4 18 103/44 98 Nasal 11:15 (63) Cannula 09/05/18 21 08:48 09/02/18 2.0 10:00 Intake and Output 09/04/18 09/04/18 09/05/18 1515:00 23:00 07:00 IntakeIntake Total 948 ml 220 ml OutputOutput Total 4000 ml 100 ml 300 ml BalanceBalance -4000 ml 848 ml -80 ml Constitutional: alert, oriented Psych: no complaints, confusion Head: normocephalic Eyes: nl conjunctiva ENMT: nl external ears & nose Neck: supple Respiratory: clear to auscultation Gastrointestinal: soft, other (EC fistula with drainage) Musculoskeletal: nl extremities to inspection Results Result Diagram: 09/05/18 0613 09/05/18 0613 Results 24hrs Laboratory Tests Test 09/04/18 17:51 09/04/18 20:26 09/05/18 01:07 09/05/18 05:29 Bedside Glucose 162 162 196 138 Test 09/05/18 06:13 09/05/18 08:03 09/05/18 09:16 09/05/18 12:02 White Blood Count 5.7 Red Blood Count 2.83 L Hemoglobin 8.3 L Hematocrit 26.5 L Mean Corpuscular 93.6 Volume Mean Corpuscular 29.3 Hemoglobin Mean Corpuscular 31.3 L Hemoglobin Concent Red Cell 17.4 H Distribution Width Platelet Count 159 Mean Platelet Volume 11.5 H Immature 1.600 H Granulocytes % Neutrophils % 67.9 Segmented 37 L Neutrophils % (Manual) Band Neutrophils % 33 H (Manual) Lymphocytes % 10.7 L Lymphocytes % 13 L (Manual) Reactive Lymphocytes 4 H % (Manual) Monocytes % 14.5 H Monocytes % (Manual) 10 Eosinophils % 3.9 Eosinophils % 2 (Manual) Basophils % 1.4 Metamyelocytes % 1 H (manual) Nucleated Red Blood 0.0 Cells % Immature 0.090 H Granulocytes # Neutrophils # 3.9 Neutrophils # 2.2 (Manual) Band Neutrophils # 1.8 H Lymphocytes (Manual) 0.7 L Lymphocytes # 0.6 L Reactive Lymphocytes 0.2 H # Monocytes # 0.8 Monocytes # (Manual) 0.5 Eosinophils # 0.2 Basophils # 0.1 Metamyelocytes # 0.0 Nucleated Red Blood 0.0 Cells # Toxic Granulation 2+ Platelet Estimate NORMAL Giant Platelets 1 H Polychromasia 2+ Hypochromasia 1+ Anisocytosis 1+ Spherocytes 1+ Sodium Level 136 Potassium Level 3.6 Chloride Level 100 Carbon Dioxide Level 22 Anion Gap 14 H Blood Urea Nitrogen 58 H Creatinine 3.68 H Est Glomerular Filtrat Rate mL/min Glucose Level 131 Calcium Level 9.5 Phosphorus Level 2.3 L Magnesium Level 1.8 Bedside Glucose 149 156 153 Medications Medication Current Medications Ondansetron HCl (Zofran Inj) 4 mg Q6H PRN IV NAUSEA/VOMITING Last administered on 08/19/18 12:55; Admin Dose 4 MG; Start 08/02/18 at 13:00 Diagnostic Test (Pha) (Accu-Chek) 1 ea 02 XX Last administered on 09/05/18 01:14; Admin Dose 1 EA; Start 08/03/18 at 02:00 Glucose (Glutose) 15 gm Q15M PRN PO DECREASED GLUCOSE; Start 08/02/18 at 13:30 Glucose (Glutose) 22.5 gm Q15M PRN PO DECREASED GLUCOSE; Start 08/02/18 at 13:30 Dextrose (D50w Syringe) 25 ml Q15M PRN IV DECREASED GLUCOSE Last administered on 09/02/18 03:28; Admin Dose 25 ML; Start 08/02/18 at 13:30 Dextrose (D50w Syringe) 50 ml Q15M PRN IV DECREASED GLUCOSE Last administered on 09/02/18 01:02; Admin Dose 50 ML; Start 08/02/18 at 13:30 Glucagon (Glucagen) 1 mg Q15M PRN IM DECREASED GLUCOSE; Start 08/02/18 at 13:30 Glucose (Glutose) 15 gm Q15M PRN BUCCAL DECREASED GLUCOSE; Start 08/02/18 at 13:30 Cholecalciferol (Vitamin D) 1,000 unit DAILY PO Last administered on 09/05/18 09:06; Admin Dose 1,000 UNIT; Start 08/03/18 at 09:00 Folic Acid (Folic Acid) 1 mg DAILY PO Last administered on 09/05/18 09:06; Admin Dose 1 MG; Start 08/03/18 at 09:00 Midodrine (Proamatine) 5 mg ON DIALYSIS DAYS PO Last administered on 09/04/18 09:50; Admin Dose 5 MG; Start 08/02/18 at 18:00 Gabapentin (Neurontin) 100 mg DAILY PO Last administered on 08/13/18 09:07; Admin Dose 100 MG; Start 08/07/18 at 11:30; Status Hold Phenol (Cepastat Lozenge) 1 lozenge Q1H PRN MT COUGH Last administered on 08/08/18 02:34; Admin Dose 1 LOZENGE; Start 08/07/18 at 23:00 Heparin Sodium (Porcine) (Heparin (1000 Units/ml)) 6,100 unit AFTER DIALYSIS CATHETER Last administered on 09/04/18 14:18; Admin Dose 6,100 UNIT; Start 08/16/18 at 22:30 Acetaminophen (Tylenol Tab) 650 mg Q6H PRN PO MILD PAIN(1-3)OR ELEVATED TEMP Last administered on 09/01/18 03:40; Admin Dose 325 MG; Start 08/18/18 at 05:30 Levothyroxine Sodium (Synthroid) 50 mcg DAILY@06 PO Last administered on 09/05/18 05:42; Admin Dose 50 MCG; Start 08/20/18 at 06:00 Famotidine (Pepcid) 20 mg DAILY PO Last administered on 09/05/18 09:06; Admin Dose 20 MG; Start 08/21/18 at 09:00 Apixaban (Eliquis) 2.5 mg BID PO Last administered on 08/27/18 21:24; Admin Dose 2.5 MG; Start 08/21/18 at 09:30; Status Hold Diagnostic Test (Pha) (Accu-Chek) 1 ea Q4 XX Last administered on 09/05/18 12:06; Admin Dose 1 EA; Start 08/23/18 at 21:00 Fat Emulsion Intravenous 250 ml @ 21 mls/hr DAILY IV Last administered on 09/05/18 08:59; Admin Dose 21 MLS/HR; Start 08/24/18 at 14:00 Total Parenteral Nutrition 1,000 ml @ 65 mls/hr [id number] IV Last administered on 09/05/18 05:27; Admin Dose 65 MLS/HR; Start 08/24/18 at 16:00 Albumin Human 100 ml @ 100 mls/hr WITH DIALYSIS PRN IV SBP <90 DURING DIALYSIS Last administered on 09/04/18 12:42; Admin Dose 100 MLS/HR; Start 08/26/18 at 08:30 Insulin Aspart (Novolog Insulin Pen) NOVOLOG *MODERATE* ALGORITHM Q4 SC Last administered on 09/05/18 12:06; Admin Dose 2 UNIT; Start 08/27/18 at 13:00 Fluticasone Propionate (Flonase 0.05% Nasal) 1 spray BID NASAL Last administered on 09/05/18 09:14; Admin Dose 1 SPRAY; Start 08/28/18 at 21:00; Stop 08/26/19 at 22:00 Albuterol/ Ipratropium (Duoneb) 3 ml Q6HWA RESP THERAPY HHN Last administered on 09/05/18 15:04; Admin Dose 3 ML; Start 08/28/18 at 20:00 Albuterol/ Ipratropium (Duoneb) 3 ml Q2H RESP THERAPY PRN HHN shortness of breath; Start 08/28/18 at 19:00 Loperamide HCl (Imodium Cap) 4 mg BID PO Last administered on 09/05/18at 09:07; Admin Dose 4 MG; Start 08/31/18 at 21:00 Ferrous Sulfate (Ferrous Sulfate (Ec)) 325 mg BID PO Last administered on 09/05/18 09:07; Admin Dose 325 MG; Start 08/31/18 at 21:00 Loratadine (Claritin) 10 mg Q48H NGT Last administered on 09/04/18at 09:51; Admin Dose 10 MG; Start 09/02/18 at 08:30; Stop 09/11/18 at 23:59 Insulin Glargine (Lantus) 20 units BID@0800,2000 SC Last administered on 09/05/18at 08:12; Admin Dose 20 UNITS; Start 09/03/18 at 20:00 JAGUAR CARTWIRGHT M.D. Sep 05, 2018 15:10
[2018-09-06] VITALS (13 sets, daily range): BP systolic 90–102; BP diastolic 37–58; PULSE 68–93; RESP 16–24
[2018-09-06] MEDS: INSULIN ASPART [NOVOLOG] 3 ML PEN SC SCH ×6 (01:00→23:10)
[2018-09-06] MEDS: ACCU-CHEK XX SCH ×7 (01:00→21:00)
[2018-09-06] MEDS: LEVOTHYROXINE 50 MCG TAB PO SCH (05:59)
[2018-09-06] MEDS: INSULIN GLARGINE [LANTus] (100 UNITS/ML) SYG SC SCH ×2 (07:45→23:10)
[2018-09-06] MEDS: ALBUTEROL/IPRATROPIUM (NEB) 3 ML AMP HHN SCH ×3 (08:07→19:52)
--- NOTE | 2018-09-06 08:27 | PN ---
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 Other findings at the time of surgery include mild to moderate ascites, and fine, nodularity of the liver - cirrhosis?-, and inflammation extending from the transverse colon mesentary to the pancreas, which felt firm). Decision to have the next dialysis as per nephrology. 3 Pt is on O2 ( 2 l/min) , and on Levophed. He is due to have dialysis this am at 0800. Stable but still critical 3 Pt is w/o nausea, tolerating some liquids, and says he is passing some gas.Pt does not move well which was also the case pre-op but persists due to post op pain. 3 POD #6 doing well. Path shows T3N0 adenocarcinoma, and T4N0 GIST w/ 1 tumor implant 3 POD #8 Still confused, eats when prompted, not ambulating well 3 POD #9 Pt has an entero-cutaneous fistula. WBC is sl elevated from yesterday 3 POD #12 Stable fistula. Normal wbc, low albumin. TPN is in place 3 POD #13 400 cc of stool per fistula overnight ( 1300 in 24 hrs ? - unclear). TPN is ongoing. Pt is stable w/ good labs 3 POD #14 300 cc of stool now more bilious as the stool becomes mostly enteric secretions. TPN. Dialysis today 3 POD #16 550 cc over 24 hrs, and thick liquid , and no gas overnight. VSS, and normal wbc 3 POD #17 600 -900 cc of dark liquid stool and gas. VSS. Anemic and normal wbc. No ANTB x 2 days 3 POD #18 Liquid dark, greenish stool ( 600-900), low BP, anemia, and normal wbc. No sign of sepsis 3 POD #20 Fistula output is dropping. BP is stable off of pressors x 12 hrs. Normal wbc 3 POD #21 Unsure of fistula output for yesterday. Stable off of pressors 3 POD#22: Nursing reports trend of 650-400 daily output over past 2 days; abdomen soft, ND: Pt awake but non-verbal, abdomen is soft, afebrile, HCT stable, WBC WNL 3 POD#23: Fistula output 650-400-200 over past three days, HD today, WBC WNL, afebrile Result Diagram: 09/06/18 0644 09/06/18 0644 Results 24hrs Laboratory Tests Test 09/05/18 09:16 09/05/18 12:02 09/05/18 17:40 09/05/18 22:14 Bedside Glucose 156 153 107 118 Test 09/06/18 02:25 09/06/18 05:15 09/06/18 06:44 09/06/18 07:23 Bedside Glucose 107 95 80 White Blood Count 7.2 # Red Blood Count 2.96 L Hemoglobin 8.6 L Hematocrit 27.4 L Mean Corpuscular 92.6 Volume Mean Corpuscular 29.1 Hemoglobin Mean Corpuscular 31.4 L Hemoglobin Concent Red Cell 17.2 H Distribution Width Platelet Count 178 Mean Platelet Volume 11.7 H Immature 1.300 H Granulocytes % Neutrophils % Segmented 39 Neutrophils % (Manual) Band Neutrophils % 27 H (Manual) Lymphocytes % Lymphocytes % 18 (Manual) Monocytes % Monocytes % (Manual) 5 Eosinophils % Eosinophils % 9 H (Manual) Basophils % Basophils % (Manual) 2 Nucleated Red Blood 0.0 Cells % Immature 0.090 H Granulocytes # Neutrophils # Neutrophils # 2.9 (Manual) Band Neutrophils # 1.9 H Lymphocytes (Manual) 1.2 Lymphocytes # Monocytes # Monocytes # (Manual) 0.3 Eosinophils # Basophils # Basophils # (Manual) 0.1 H Nucleated Red Blood Cells # Platelet Estimate NORMAL Polychromasia 1+ Poikilocytosis 1+ Anisocytosis 1+ Macrocytosis 1+ Elliptocytes 1+ Sodium Level 136 Potassium Level 3.7 Chloride Level 101 Carbon Dioxide Level 21 Anion Gap 14 H Blood Urea Nitrogen 74 H Creatinine 4.61 H Est Glomerular Filtrat Rate mL/min Glucose Level 71 Calcium Level 9.7 Phosphorus Level 3.7 Magnesium Level 1.7 Albumin 2.5 L Subjective 24 Hr Interval Summary Subjective hx not possible: pt non-verbal Exam/Review of Systems Exam Vitals Vital Signs Date Temp Pulse Resp B/P (MAP) Pulse Ox O2 O2 Flow FiO2 Time Delivery Rate 09/06/18 92 20 94 21 08:10 09/06/18 98.4 102/37 Room Air 03:54 (58) 09/02/18 2.0 10:00 Intake and Output 09/05/18 09/05/18 09/06/18 1515:00 23:00 07:00 IntakeIntake Total 250 ml OutputOutput Total 200 ml BalanceBalance 50 ml Constitutional: non-verbal Gastrointestinal: soft (Stoma bag on fistula, greenish fluid in bag, abd is soft/ND/NTTP) Results Results 24hrs Laboratory Tests Test 09/05/18 09:16 09/05/18 12:02 09/05/18 17:40 09/05/18 22:14 Bedside Glucose 156 153 107 118 Test 09/06/18 02:25 09/06/18 05:15 09/06/18 06:44 09/06/18 07:23 Bedside Glucose 107 95 80 White Blood Count 7.2 # Red Blood Count 2.96 L Hemoglobin 8.6 L Hematocrit 27.4 L Mean Corpuscular 92.6 Volume Mean Corpuscular 29.1 Hemoglobin Mean Corpuscular 31.4 L Hemoglobin Concent Red Cell 17.2 H Distribution Width Platelet Count 178 Mean Platelet Volume 11.7 H Immature 1.300 H Granulocytes % Neutrophils % Segmented 39 Neutrophils % (Manual) Band Neutrophils % 27 H (Manual) Lymphocytes % Lymphocytes % 18 (Manual) Monocytes % Monocytes % (Manual) 5 Eosinophils % Eosinophils % 9 H (Manual) Basophils % Basophils % (Manual) 2 Nucleated Red Blood 0.0 Cells % Immature 0.090 H Granulocytes # Neutrophils # Neutrophils # 2.9 (Manual) Band Neutrophils # 1.9 H Lymphocytes (Manual) 1.2 Lymphocytes # Monocytes # Monocytes # (Manual) 0.3 Eosinophils # Basophils # Basophils # (Manual) 0.1 H Nucleated Red Blood Cells # Platelet Estimate NORMAL Polychromasia 1+ Poikilocytosis 1+ Anisocytosis 1+ Macrocytosis 1+ Elliptocytes 1+ Sodium Level 136 Potassium Level 3.7 Chloride Level 101 Carbon Dioxide Level 21 Anion Gap 14 H Blood Urea Nitrogen 74 H Creatinine 4.61 H Est Glomerular Filtrat Rate mL/min Glucose Level 71 Calcium Level 9.7 Phosphorus Level 3.7 Magnesium Level 1.7 Albumin 2.5 L Medications Medication Current Medications Ondansetron HCl (Zofran Inj) 4 mg Q6H PRN IV NAUSEA/VOMITING Last administered on 08/19/18 12:55; Admin Dose 4 MG; Start 08/02/18 at 13:00 Diagnostic Test (Pha) (Accu-Chek) 1 ea 02 XX Last administered on 09/05/18 01:14; Admin Dose 1 EA; Start 08/03/18 at 02:00 Glucose (Glutose) 15 gm Q15M PRN PO DECREASED GLUCOSE; Start 08/02/18 at 13:30 Glucose (Glutose) 22.5 gm Q15M PRN PO DECREASED GLUCOSE; Start 08/02/18 at 13:30 Dextrose (D50w Syringe) 25 ml Q15M PRN IV DECREASED GLUCOSE Last administered on 09/02/18 03:28; Admin Dose 25 ML; Start 08/02/18 at 13:30 Dextrose (D50w Syringe) 50 ml Q15M PRN IV DECREASED GLUCOSE Last administered on 09/02/18 01:02; Admin Dose 50 ML; Start 08/02/18 at 13:30 Glucagon (Glucagen) 1 mg Q15M PRN IM DECREASED GLUCOSE; Start 08/02/18 at 13:30 Glucose (Glutose) 15 gm Q15M PRN BUCCAL DECREASED GLUCOSE; Start 08/02/18 at 13:30 Cholecalciferol (Vitamin D) 1,000 unit DAILY PO Last administered on 09/05/18 09:06; Admin Dose 1,000 UNIT; Start 08/03/18 at 09:00 Folic Acid (Folic Acid) 1 mg DAILY PO Last administered on 09/05/18 09:06; Admin Dose 1 MG; Start 08/03/18 at 09:00 Midodrine (Proamatine) 5 mg ON DIALYSIS DAYS PO Last administered on 09/04/18 09:50; Admin Dose 5 MG; Start 08/02/18 at 18:00 Gabapentin (Neurontin) 100 mg DAILY PO Last administered on 08/13/18 09:07; A dmin Dose 100 MG; Start 08/07/18 at 11:30; Status Hold Phenol (Cepastat Lozenge) 1 lozenge Q1H PRN MT COUGH Last administered on 08/08/18 02:34; Admin Dose 1 LOZENGE; Start 08/07/18 at 23:00 Heparin Sodium (Porcine) (Heparin (1000 Units/ml)) 6,100 unit AFTER DIALYSIS CATHETER Last administered on 09/04/18 14:18; Admin Dose 6,100 UNIT; Start 08/16/18 at 22:30 Acetaminophen (Tylenol Tab) 650 mg Q6H PRN PO MILD PAIN(1-3)OR ELEVATED TEMP Last administered on 09/01/18 03:40; Admin Dose 325 MG; Start 08/18/18 at 05:30 Levothyroxine Sodium (Synthroid) 50 mcg DAILY@06 PO Last administered on 05:59; Admin Dose 50 MCG; Start 08/20/18 at 06:00 Famotidine (Pepcid) 20 mg DAILY PO Last administered on 09/05/18 09:06; Admin Dose 20 MG; Start 08/21/18 at 09:00 Apixaban (Eliquis) 2.5 mg BID PO Last administered on 08/27/18 21:24; Admin Dose 2.5 MG; Start 08/21/18 at 09:30; Status Hold Diagnostic Test (Pha) (Accu-Chek) 1 ea Q4 XX Last administered on 09/06/18 08:09; Admin Dose 1 EA; Start 08/23/18 at 21:00 Fat Emulsion Intravenous 250 ml @ 21 mls/hr DAILY IV Last administered on 09/05/18 08:59; Admin Dose 21 MLS/HR; Start 08/24/18 at 14:00 Total Parenteral Nutrition 1,000 ml @ 65 mls/hr [id number] IV Last administered on 09/05/18 22:30; Admin Dose 65 MLS/HR; Start 08/24/18 at 16:00 Albumin Human 100 ml @ 100 mls/hr WITH DIALYSIS PRN IV SBP <90 DURING DIALYSIS Last administered on 09/04/18 12:42; Admin Dose 100 MLS/HR; Start 08/26/18 at 08:30 Insulin Aspart (Novolog Insulin Pen) NOVOLOG *MODERATE* ALGORITHM Q4 SC Last administered on 09/05/18 12:06; Admin Dose 2 UNIT; Start 08/27/18 at 13:00 Fluticasone Propionate (Flonase 0.05% Nasal) 1 spray BID NASAL Last admin istered on 09/05/18 22:31; Admin Dose 1 SPRAY; Start 08/28/18 at 21:00; Stop 08/26/19 at 22:00 Albuterol/ Ipratropium (Duoneb) 3 ml Q6HWA RESP THERAPY HHN Last administered on 09/06/18 08:07; Admin Dose 3 ML; Start 08/28/18 at 20:00 Albuterol/ Ipratropium (Duoneb) 3 ml Q2H RESP THERAPY PRN HHN shortness of breath; Start 08/28/18 at 19:00 Loperamide HCl (Imodium Cap) 4 mg BID PO Last administered on 09/05/18at 22:31; Admin Dose 4 MG; Start 08/31/18 at 21:00 Ferrous Sulfate (Ferrous Sulfate (Ec)) 325 mg BID PO Last administered on 09/05/18 22:31; Admin Dose 325 MG; Start 08/31/18 at 21:00 Loratadine (Claritin) 10 mg Q48H NGT Last administered on 09/04/18 09:51; Admin Dose 10 MG; Start 09/02/18 at 08:30; Stop 09/11/18 at 23:59 Insulin Glargine (Lantus) 20 units BID@0800,2000 SC Last administered on 09/06/18 07:45; Admin Dose 20 UNITS; Start 09/03/18 at 20:00 CONCHITA ARVIZU M.D. Sep 06, 2018 08:27
[2018-09-06] MEDS: LORATADINE 10 MG TAB NGT SCH (08:30)
--- NOTE | 2018-09-06 08:41 | CONS ---
Assessment/Plan Assessment/Plan Hospital Course (Demo Recall) #Adenocarcinoma of ascending Colon ca -final pathology report reveals 2 separate masses with different pathology results. -the ascending colon mass is consistent with a Moderately-differentiated adenocarcinoma, invading through the muscularis propria, with all 0/18 negative for disease, 3.6 x 2.8 x 1.1 cm. -the splenic flexture mass is 10.5 x 9.0 x 7.0 cm.and consistent with a high grade GIST tumor -CT does not reveal evidence of distant mets -in terms of the adenocarcinoma, pt does not need adjuvant chemotherapy given this was a stage IIA tumor. 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 he is now on D 10 #Hypothyroidism - Continue Synthroid #Nonischemic CM - pacer in place - nonchronic Thank you for the opportunity to participate in this patients care A total of 40 minutes of face to face time was spent speaking with the patient, of which greater than 50% was spent in counseling and coordination of care and the detailed question and answer session. Consultation Date/Type/Reason Admit Date/Time Aug 02, 2018 at 10:57 Initial Consult Date 08/09/18 Type of Consult oncology Reason for Consultation colon cancer Requesting Provider: DULCE GALINDO Date/Time of Note DATE: 09/06/18 TIME: 08:38 24 HR Interval Summary Free Text/Dictation still with considerable output from the fistula Exam/Review of Systems Exam Vitals Vital Signs Date Temp Pulse Resp B/P (MAP) Pulse Ox O2 O2 Flow FiO2 Time Delivery Rate 09/06/18 92 20 94 21 08:10 09/06/18 98.4 102/37 Room Air 03:54 (58) 09/02/18 2.0 10:00 Intake and Output 09/05/18 09/05/18 09/06/18 1515:00 23:00 07:00 IntakeIntake Total 250 ml OutputOutput Total 200 ml BalanceBalance 50 ml Constitutional: frail Psych: confusion, depression Head: normocephalic Eyes: nl conjunctiva ENMT: nl external ears & nose Neck: supple Respiratory: clear to auscultation Cardiovascular: regular rate and rhythm Gastrointestinal: soft, other (EC fistula with ostomy in place) Musculoskeletal: nl extremities to inspection Extremities: normal pulses Results Result Diagram: 09/06/18 0644 09/06/18 0644 Results 24hrs Laboratory Tests Test 09/05/18 09:16 09/05/18 12:02 09/05/18 17:40 09/05/18 22:14 Bedside Glucose 156 153 107 118 Test 09/06/18 02:25 09/06/18 05:15 09/06/18 06:44 09/06/18 07:23 Bedside Glucose 107 95 80 White Blood Count 7.2 # Red Blood Count 2.96 L Hemoglobin 8.6 L Hematocrit 27.4 L Mean Corpuscular 92.6 Volume Mean Corpuscular 29.1 Hemoglobin Mean Corpuscular 31.4 L Hemoglobin Concent Red Cell 17.2 H Distribution Width Platelet Count 178 Mean Platelet Volume 11.7 H Immature 1.300 H Granulocytes % Neutrophils % Segmented 39 Neutrophils % (Manual) Band Neutrophils % 27 H (Manual) Lymphocytes % Lymphocytes % 18 (Manual) Monocytes % Monocytes % (Manual) 5 Eosinophils % Eosinophils % 9 H (Manual) Basophils % Basophils % (Manual) 2 Nucleated Red Blood 0.0 Cells % Immature 0.090 H Granulocytes # Neutrophils # Neutrophils # 2.9 (Manual) Band Neutrophils # 1.9 H Lymphocytes (Manual) 1.2 Lymphocytes # Monocytes # Monocytes # (Manual) 0.3 Eosinophils # Basophils # Basophils # (Manual) 0.1 H Nucleated Red Blood Cells # Platelet Estimate NORMAL Polychromasia 1+ Poikilocytosis 1+ Anisocytosis 1+ Macrocytosis 1+ Elliptocytes 1+ Sodium Level 136 Potassium Level 3.7 Chloride Level 101 Carbon Dioxide Level 21 Anion Gap 14 H Blood Urea Nitrogen 74 H Creatinine 4.61 H Est Glomerular Filtrat Rate mL/min Glucose Level 71 Calcium Level 9.7 Phosphorus Level 3.7 Magnesium Level 1.7 Albumin 2.5 L Medications Medication Current Medications Ondansetron HCl (Zofran Inj) 4 mg Q6H PRN IV NAUSEA/VOMITING Last administered on 08/19/18 12:55; Admin Dose 4 MG; Start 08/02/18 at 13:00 Diagnostic Test (Pha) (Accu-Chek) 1 ea 02 XX Last administered on 09/05/18 01:14; Admin Dose 1 EA; Start 08/03/18 at 02:00 Glucose (Glutose) 15 gm Q15M PRN PO DECREASED GLUCOSE; Start 08/02/18 at 13:30 Glucose (Glutose) 22.5 gm Q15M PRN PO DECREASED GLUCOSE; Start 08/02/18 at 13:30 Dextrose (D50w Syringe) 25 ml Q15M PRN IV DECREASED GLUCOSE Last administered on 09/02/18 03:28; Admin Dose 25 ML; Start 08/02/18 at 13:30 Dextrose (D50w Syringe) 50 ml Q15M PRN IV DECREASED GLUCOSE Last administered on 09/02/18 01:02; Admin Dose 50 ML; Start 08/02/18 at 13:30 Glucagon (Glucagen) 1 mg Q15M PRN IM DECREASED GLUCOSE; Start 08/02/18 at 13:30 Glucose (Glutose) 15 gm Q15M PRN BUCCAL DECREASED GLUCOSE; Start 08/02/18 at 13:30 Cholecalciferol (Vitamin D) 1,000 unit DAILY PO Last administered on 09/05/18 09:06; Admin Dose 1,000 UNIT; Start 08/03/18 at 09:00 Folic Acid (Folic Acid) 1 mg DAILY PO Last administered on 09/05/18 09:06; Admin Dose 1 MG; Start 08/03/18 at 09:00 Midodrine (Proamatine) 5 mg ON DIALYSIS DAYS PO Last administered on 09/04/18 09:50; Admin Dose 5 MG; Start 08/02/18 at 18:00 Gabapentin (Neurontin) 100 mg DAILY PO Last administered on 08/13/18 09:07; Admin Dose 100 MG; Start 08/07/18 at 11:30; Status Hold Phenol (Cepastat Lozenge) 1 lozenge Q1H PRN MT COUGH Last administered on 08/08/18 02:34; Admin Dose 1 LOZENGE; Start 08/07/18 at 23:00 Heparin Sodium (Porcine) (Heparin (1000 Units/ml)) 6,100 unit AFTER DIALYSIS CATHETER Last administered on 09/04/18 14:18; Admin Dose 6,100 UNIT; Start 08/16/18 at 22:30 Acetaminophen (Tylenol Tab) 650 mg Q6H PRN PO MILD PAIN(1-3)OR ELEVATED TEMP Last administered on 09/01/18 03:40; Admin Dose 325 MG; Start 08/18/18 at 05:30 Levothyroxine Sodium (Synthroid) 50 mcg DAILY@06 PO Last administered on 09/06/18 05:59; Admin Dose 50 MCG; Start 08/20/18 at 06:00 Famotidine (Pepcid) 20 mg DAILY PO Last administered on 09/05/18 09:06; Admin Dose 20 MG; Start 08/21/18 at 09:00 Apixaban (Eliquis) 2.5 mg BID PO Last administered on 08/27/18 21:24; Admin Dose 2.5 MG; Start 08/21/18 at 09:30; Status Hold Diagnostic Test (Pha) (Accu-Chek) 1 ea Q4 XX Last administered on 09/06/18 08:09; Admin Dose 1 EA; Start 08/23/18 at 21:00 Fat Emulsion Intravenous 250 ml @ 21 mls/hr DAILY IV Last administered on 09/05/18 08:59; Admin Dose 21 MLS/HR; Start 08/24/18 at 14:00 Total Parenteral Nutrition 1,000 ml @ 65 mls/hr [id number] IV Last administered on 09/05/18 22:30; Admin Dose 65 MLS/HR; Start 08/24/18 at 16:00 Albumin Human 100 ml @ 100 mls/hr WITH DIALYSIS PRN IV SBP <90 DURING DIALYSIS Last administered on 09/04/18 12:42; Admin Dose 100 MLS/HR; Start 08/26/18 at 08:30 Insulin Aspart (Novolog Insulin Pen) NOVOLOG *MODERATE* ALGORITHM Q4 SC Last administered on 09/05/18 12:06; Admin Dose 2 UNIT; Start 08/27/18 at 13:00 Fluticasone Propionate (Flonase 0.05% Nasal) 1 spray BID NASAL Last administered on 09/05/18 22:31; Admin Dose 1 SPRAY; Start 08/28/18 at 21:00; Stop 08/26/19 at 22:00 Albuterol/ Ipratropium (Duoneb) 3 ml Q6HWA RESP THERAPY HHN Last administered on 09/06/18 08:07; Admin Dose 3 ML; Start 08/28/18 at 20:00 Albuterol/ Ipratropium (Duoneb) 3 ml Q2H RESP THERAPY PRN HHN shortness of breath; Start 08/28/18 at 19:00 Loperamide HCl (Imodium Cap) 4 mg BID PO Last administered on 09/05/18at 22:31; Admin Dose 4 MG; Start 08/31/18 at 21:00 Ferrous Sulfate (Ferrous Sulfate (Ec)) 325 mg BID PO Last administered on 09/05/18 22:31; Admin Dose 325 MG; Start 08/31/18 at 21:00 Loratadine (Claritin) 10 mg Q48H NGT Last administered on 09/04/18 09:51; Admin Dose 10 MG; Start 09/02/18 at 08:30; Stop 09/11/18 at 23:59 Insulin Glargine (Lantus) 20 units BID@0800,2000 SC Last administered on 09/06/18 07:45; Admin Dose 20 UNITS; Start 09/03/18 at 20:00 JAGUAR CARTWRIGHT M.D. Sep 06, 2018 08:41
--- NOTE | 2018-09-06 08:54 | PN ---
Date/Time of Note Date/Time of Note DATE: 09/06/18 TIME: 08:54 Assessment/Plan VTE Prophylaxis Risk score (from Ns)>0 risk: 14 SCD applied (from Nsg): Yes Pharmacological prophylaxis: NA/contraindicated Pharm contraindication: anticoag not tolerated Lines/Catheters IV Catheter Type (from Nrsg): permacath Urinary Cath still in place: No Assessment/Plan Assessment/Plan 1. Colonic mass at the splenic flexure and ascending colon s/p subtotal colectomy and small bowel resection on 08/14/18 - General surgery recommendations appreciated and continue current care. 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 Will need 36 months of adjuvant therapy for GIST tumor once abdominal wounds healed but no further intervention for adenocarcinoma - Cardiology consultation appreciated - ID consulted for possible prophylaxis abx 2. End-stage renal disease on HD - Nephrology on board for HD management and appreciate recommendations 3. Anemia of chronic disease - stable - continue monitoring - holding Eliquis at this time given low hgb levels 4. Hypoglycemia- stable 5. ?Shock secondary to hemodynamics vs infectious etiology- resolved - ID on board and appreciate recommendations 6. Acute toxic encephalopathy - Neurology input appreciated - MRI unable to be done due to pacemaker 7. Arm swelling, right brachial DVT, thrombosis of left cephalic vein - Ultrasound showed right brachial DVT as well as thrombosis of the left cephalic vein. Patient's midline on his right arm is the likely culprit for the DVT on his right brachial vein. - monitor, warm compresses. - Patient is likely an hypercoagulable state due to his carcinoma. Will restart Eliquis when possible - clogged fistula catheter (HeRO), consulted Dr. Coelho for recs as he is patient's vascular surgeon, recommended Horacio for now until we can fully anticoagulate. Follow as outpatient 8. Diabetes - A1c noted - ISS and accuchecks 9. Esophagitis - Continue PPI 10. Hypothyroidism - Continue home Synthroid 11. Nonischemic CM - pacer in place - Chronic per outpatient Telemetry Nurse 12. Mild acute on chronic systolic HF - fluid removal during HD 13. Disposition - Per SW discussion with family, they would like to hold off on hospice for another 4 weeks to see how the fistula healing process progresses - [facility] unable to accept due to insurance issues. CM on board to verify secondary insurance Result Diagram: 09/06/18 0644 09/06/18 0644 Results 24hrs Laboratory Tests Test 09/05/18 09:16 09/05/18 12:02 09/05/18 17:40 09/05/18 22:14 Bedside Glucose 156 153 107 118 Test 09/06/18 02:25 09/06/18 05:15 09/06/18 06:44 09/06/18 07:23 Bedside Glucose 107 95 80 White Blood Count 7.2 # Red Blood Count 2.96 L Hemoglobin 8.6 L Hematocrit 27.4 L Mean Corpuscular 92.6 Volume Mean Corpuscular 29.1 Hemoglobin Mean Corpuscular 31.4 L Hemoglobin Concent Red Cell 17.2 H Distribution Width Platelet Count 178 Mean Platelet Volume 11.7 H Immature 1.300 H Granulocytes % Neutrophils % Segmented 39 Neutrophils % (Manual) Band Neutrophils % 27 H (Manual) Lymphocytes % Lymphocytes % 18 (Manual) Monocytes % Monocytes % (Manual) 5 Eosinophils % Eosinophils % 9 H (Manual) Basophils % Basophils % (Manual) 2 Nucleated Red Blood 0.0 Cells % Immature 0.090 H Granulocytes # Neutrophils # Neutrophils # 2.9 (Manual) Band Neutrophils # 1.9 H Lymphocytes (Manual) 1.2 Lymphocytes # Monocytes # Monocytes # (Manual) 0.3 Eosinophils # Basophils # Basophils # (Manual) 0.1 H Nucleated Red Blood Cells # Platelet Estimate NORMAL Polychromasia 1+ Poikilocytosis 1+ Anisocytosis 1+ Macrocytosis 1+ Elliptocytes 1+ Sodium Level 136 Potassium Level 3.7 Chloride Level 101 Carbon Dioxide Level 21 Anion Gap 14 H Blood Urea Nitrogen 74 H Creatinine 4.61 H Est Glomerular Filtrat Rate mL/min Glucose Level 71 Calcium Level 9.7 Phosphorus Level 3.7 Magnesium Level 1.7 Albumin 2.5 L Subjective 24 Hr Interval Summary Free Text/Dictation Patient able to answer simple questions this am but still not very talkative and lethargic. HD today. Exam/Review of Systems Exam Vitals Vital Signs Date Temp Pulse Resp B/P (MAP) Pulse Ox O2 O2 Flow FiO2 Time Delivery Rate 09/06/18 92 20 94 21 08:10 09/06/18 98.4 102/37 Room Air 03:54 (58) 09/02/18 2.0 10:00 Intake and Output 09/05/18 09/05/18 09/06/18 1515:00 23:00 07:00 IntakeIntake Total 250 ml OutputOutput Total 200 ml BalanceBalance 50 ml Exam General: Patient is laying in bed, lethargic, answering simple questions Respiratory: Clear to auscultation bilaterally. no wheezing. diminished at bases Cardiovascular: regular rate and rhythm, no obvious murmurs Gastrointestinal: soft, tender to palpation, bowel sounds heard. fistula present with output in ostomy bag Neurological: Moves all extremities spontaneously Ext: swelling of LUE, mild swelling RUE, and LE bilaterally Skin: No new skin lesions Results Results 24hrs Laboratory Tests Test 09/05/18 09:16 09/05/18 12:02 09/05/18 17:40 09/05/18 22:14 Bedside Glucose 156 153 107 118 Test 09/06/18 02:25 09/06/18 05:15 09/06/18 06:44 09/06/18 07:23 Bedside Glucose 107 95 80 White Blood Count 7.2 # Red Blood Count 2.96 L Hemoglobin 8.6 L Hematocrit 27.4 L Mean Corpuscular 92.6 Volume Mean Corpuscular 29.1 Hemoglobin Mean Corpuscular 31.4 L Hemoglobin Concent Red Cell 17.2 H Distribution Width Platelet Count 178 Mean Platelet Volume 11.7 H Immature 1.300 H Granulocytes % Neutrophils % Segmented 39 Neutrophils % (Manual) Band Neutrophils % 27 H (Manual) Lymphocytes % Lymphocytes % 18 (Manual) Monocytes % Monocytes % (Manual) 5 Eosinophils % Eosinophils % 9 H (Manual) Basophils % Basophils % (Manual) 2 Nucleated Red Blood 0.0 Cells % Immature 0.090 H Granulocytes # Neutrophils # Neutrophils # 2.9 (Manual) Band Neutrophils # 1.9 H Lymphocytes (Manual) 1.2 Lymphocytes # Monocytes # Monocytes # (Manual) 0.3 Eosinophils # Basophils # Basophils # (Manual) 0.1 H Nucleated Red Blood Cells # Platelet Estimate NORMAL Polychromasia 1+ Poikilocytosis 1+ Anisocytosis 1+ Macrocytosis 1+ Elliptocytes 1+ Sodium Level 136 Potassium Level 3.7 Chloride Level 101 Carbon Dioxide Level 21 Anion Gap 14 H Blood Urea Nitrogen 74 H Creatinine 4.61 H Est Glomerular Filtrat Rate mL/min Glucose Level 71 Calcium Level 9.7 Phosphorus Level 3.7 Magnesium Level 1.7 Albumin 2.5 L Medications Medication Current Medications Ondansetron HCl (Zofran Inj) 4 mg Q6H PRN IV NAUSEA/VOMITING Last administered on 08/19/18 12:55; Admin Dose 4 MG; Start 08/02/18 at 13:00 Diagnostic Test (Pha) (Accu-Chek) 1 ea 02 XX Last administered on 09/05/18 01:14; Admin Dose 1 EA; Start 08/03/18 at 02:00 Glucose (Glutose) 15 gm Q15M PRN PO DECREASED GLUCOSE; Start 08/02/18 at 13:30 Glucose (Glutose) 22.5 gm Q15M PRN PO DECREASED GLUCOSE; Start 08/02/18 at 13:30 Dextrose (D50w Syringe) 25 ml Q15M PRN IV DECREASED GLUCOSE Last administered on 09/02/18 03:28; Admin Dose 25 ML; Start 08/02/18 at 13:30 Dextrose (D50w Syringe) 50 ml Q15M PRN IV DECREASED GLUCOSE Last administered on 09/02/18 01:02; Admin Dose 50 ML; Start 08/02/18 at 13:30 Glucagon (Glucagen) 1 mg Q15M PRN IM DECREASED GLUCOSE; Start 08/02/18 at 13:30 Glucose (Glutose) 15 gm Q15M PRN BUCCAL DECREASED GLUCOSE; Start 08/02/18 at 13:30 Cholecalciferol (Vitamin D) 1,000 unit DAILY PO Last administered on 09/05/18 09:06; Admin Dose 1,000 UNIT; Start 08/03/18 at 09:00 Folic Acid (Folic Acid) 1 mg DAILY PO Last administered on 09/05/18 09:06; Admin Dose 1 MG; Start 08/03/18 at 09:00 Midodrine (Proamatine) 5 mg ON DIALYSIS DAYS PO Last administered on 09/04/18 09:50; Admin Dose 5 MG; Start 08/02/18 at 18:00 Gabapentin (Neurontin) 100 mg DAILY PO Last administered on 08/13/18 09:07; Admin Dose 100 MG; Start 08/07/18 at 11:30; Status Hold Phenol (Cepastat Lozenge) 1 lozenge Q1H PRN MT COUGH Last administered on 08/08/18 02:34; Admin Dose 1 LOZENGE; Start 08/07/18 at 23:00 Heparin Sodium (Porcine) (Heparin (1000 Units/ml)) 6,100 unit AFTER DIALYSIS CATHETER Last administered on 09/04/18 14:18; Admin Dose 6,100 UNIT; Start 08/16/18 at 22:30 Acetaminophen (Tylenol Tab) 650 mg Q6H PRN PO MILD PAIN(1-3)OR ELEVATED TEMP Last administered on 09/01/18 03:40; Admin Dose 325 MG; Start 08/18/18 at 05:30 Levothyroxine Sodium (Synthroid) 50 mcg DAILY@06 PO Last administered on 09/06/18 05:59; Admin Dose 50 MCG; Start 08/20/18 at 06:00 Famotidine (Pepcid) 20 mg DAILY PO Last administered on 09/05/18 09:06; Admin Dose 20 MG; Start 08/21/18 at 09:00 Apixaban (Eliquis) 2.5 mg BID PO Last administered on 08/27/18 21:24; Admin Dose 2.5 MG; Start 08/21/18 at 09:30; Status Hold Diagnostic Test (Pha) (Accu-Chek) 1 ea Q4 XX Last administered on 09/06/18 08:09; Admin Dose 1 EA; Start 08/23/18 at 21:00 Fat Emulsion Intravenous 250 ml @ 21 mls/hr DAILY IV Last administered on 09/05/18 08:59; Admin Dose 21 MLS/HR; Start 08/24/18 at 14:00 Total Parenteral Nutrition 1,000 ml @ 65 mls/hr [id number] IV Last administered on 09/05/18 22:30; Admin Dose 65 MLS/HR; Start 08/24/18 at 16:00 Albumin Human 100 ml @ 100 mls/hr WITH DIALYSIS PRN IV SBP <90 DURING DIALYSIS Last administered on 09/04/18 12:42; Admin Dose 100 MLS/HR; Start 08/26/18 at 08:30 Insulin Aspart (Novolog Insulin Pen) NOVOLOG *MODERATE* ALGORITHM Q4 SC Last administered on 09/05/18 12:06; Admin Dose 2 UNIT; Start 08/27/18 at 13:00 Fluticasone Propionate (Flonase 0.05% Nasal) 1 spray BID NASAL Last administered on 09/05/18 22:31; Admin Dose 1 SPRAY; Start 08/28/18 at 21:00; Stop 08/26/19 at 22:00 Albuterol/ Ipratropium (Duoneb) 3 ml Q6HWA RESP THERAPY HHN Last administered on 09/06/18 08:07; Admin Dose 3 ML; Start 08/28/18 at 20:00 Albuterol/ Ipratropium (Duoneb) 3 ml Q2H RESP THERAPY PRN HHN shortness of breath; Start 08/28/18 at 19:00 Loperamide HCl (Imodium Cap) 4 mg BID PO Last administered on 09/05/18at 22:31; Admin Dose 4 MG; Start 08/31/18 at 21:00 Ferrous Sulfate (Ferrous Sulfate (Ec)) 325 mg BID PO Last administered on 09/05/18 22:31; Admin Dose 325 MG; Start 08/31/18 at 21:00 Loratadine (Claritin) 10 mg Q48H NGT Last administered on 09/04/18 09:51; Admin Dose 10 MG; Start 09/02/18 at 08:30; Stop 09/11/18 at 23:59 Insulin Glargine (Lantus) 20 units BID@0800,2000 SC Last administered on 09/06/18 07:45; Admin Dose 20 UNITS; Start 09/03/18 at 20:00 JO HURST MD Sep 06, 2018 08:54
[2018-09-06] MEDS: LOPERAMIDE 2 MG CAP PO SCH ×2 (09:25→23:00)
[2018-09-06] MEDS: FAMOTIDINE 20 MG TAB PO SCH (09:26)
[2018-09-06] MEDS: FERROUS SULFATE (EC) 325 MG TAB PO SCH ×2 (09:26→23:00)
[2018-09-06] MEDS: CHOLECALCIFEROL 1,000 UNIT TAB PO SCH (09:26)
[2018-09-06] MEDS: FOLIC ACID 1 MG TAB PO SCH (09:28)
[2018-09-06] MEDS: MIDODRINE 5 MG TAB PO SCH (09:28)
[2018-09-06] MEDS: FLUTICASONE 0.05% 16 GM NAS SPRAY NASAL SCH ×2 (09:35→23:00)
[2018-09-06] MEDS: FAT EMULSION 20% 250 ML IV SCH ×2 (09:36→10:40)
[2018-09-06] MEDS: BALSAM PERU/CASTOR OIL 60 GM TUBE TOP SCH ×2 (09:55→23:01)
--- NOTE | 2018-09-06 11:24 | CONS ---
Assessment/Plan Assessment/Plan Hospital Course (Demo Recall) 1 End-stage renal disease, on hemodialysis, MWF with mild CHF 2. Bloody diarrhea with evidence of splenic flexure mass on the CT and possible fistula communicating through the small intestine status post colonoscopy with 2: Masses s/p subtotal colectomy. Now abdominal fistula with pouch 3. Hypotension. On Midodrine at home 4. History of congestive heart failure 5. Hypercholesterolemia. 6. Hx of total hip replacement. 7. Clotted left arm AV graft 8. Hypoglycemia. 9. Macrocytic hypochromic anemia mixed etiology, recent blood loss and 2/2 kidney disease 10. 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 DM type II, controlled now Assessment/Plan (Daily) -HD MWF> HD today - albumin/midodrine on HD day -TPN per surgery -Renally dose dose all meds - avoid nephrotoxins Consultation Date/Type/Reason Admit Date/Time Aug 02, 2018 at 10:57 Initial Consult Date 08/02/18 Type of Consult nephrology Requesting Provider: DULCE GALINDO Date/Time of Note DATE: 09/06/18 TIME: 11:23 Exam/Review of Systems Exam Vitals Vital Signs Date Temp Pulse Resp B/P (MAP) Pulse Ox O2 O2 Flow FiO2 Time Delivery Rate 09/06/18 92 20 94 21 08:10 09/06/18 98.0 92/46 (61) Room Air 08:00 09/02/18 2.0 10:00 Intake and Output 09/05/18 09/05/18 09/06/18 1515:00 23:00 07:00 IntakeIntake Total 250 ml OutputOutput Total 200 ml BalanceBalance 50 ml Exam right inguinal Permcath Constitutional: alert, oriented Respiratory: diminished breath sounds Gastrointestinal: surgical scars, other (puch) Results Result Diagram: 09/06/18 0644 09/06/18 0644 Results 24hrs Laboratory Tests Test 09/05/18 12:02 09/05/18 17:40 09/05/18 22:14 09/06/18 02:25 Bedside Glucose 153 107 118 107 Test 09/06/18 05:15 09/06/18 06:44 09/06/18 07:23 Bedside Glucose 95 80 White Blood Count 7.2 # Red Blood Count 2.96 L Hemoglobin 8.6 L Hematocrit 27.4 L Mean Corpuscular 92.6 Volume Mean Corpuscular 29.1 Hemoglobin Mean Corpuscular 31.4 L Hemoglobin Concent Red Cell 17.2 H Distribution Width Platelet Count 178 Mean Platelet Volume 11.7 H Immature 1.300 H Granulocytes % Neutrophils % Segmented 39 Neutrophils % (Manual) Band Neutrophils % 27 H (Manual) Lymphocytes % Lymphocytes % 18 (Manual) Monocytes % Monocytes % (Manual) 5 Eosinophils % Eosinophils % 9 H (Manual) Basophils % Basophils % (Manual) 2 Nucleated Red Blood 0.0 Cells % Immature 0.090 H Granulocytes # Neutrophils # Neutrophils # 2.9 (Manual) Band Neutrophils # 1.9 H Lymphocytes (Manual) 1.2 Lymphocytes # Monocytes # Monocytes # (Manual) 0.3 Eosinophils # Basophils # Basophils # (Manual) 0.1 H Nucleated Red Blood Cells # Platelet Estimate NORMAL Polychromasia 1+ Poikilocytosis 1+ Anisocytosis 1+ Macrocytosis 1+ Elliptocytes 1+ Sodium Level 136 Potassium Level 3.7 Chloride Level 101 Carbon Dioxide Level 21 Anion Gap 14 H Blood Urea Nitrogen 74 H Creatinine 4.61 H Est Glomerular Filtrat Rate mL/min Glucose Level 71 Calcium Level 9.7 Phosphorus Level 3.7 Magnesium Level 1.7 Albumin 2.5 L Medications Medication Current Medications Ondansetron HCl (Zofran Inj) 4 mg Q6H PRN IV NAUSEA/VOMITING Last administered on 08/19/18at 12:55; Admin Dose 4 MG; Start 08/02/18 at 13:00 Diagnostic Test (Pha) (Accu-Chek) 1 ea 02 XX Last administered on 09/05/18at 01:14; Admin Dose 1 EA; Start 08/03/18 at 02:00 Glucose (Glutose) 15 gm Q15M PRN PO DECREASED GLUCOSE; Start 08/02/18 at 13:30 Glucose (Glutose) 22.5 gm Q15M PRN PO DECREASED GLUCOSE; Start 08/02/18 at 13:30 Dextrose (D50w Syringe) 25 ml Q15M PRN IV DECREASED GLUCOSE Last administered on 09/02/18at 03:28; Admin Dose 25 ML; Start 08/02/18 at 13:30 Dextrose (D50w Syringe) 50 ml Q15M PRN IV DECREASED GLUCOSE Last administered on 09/02/18at 01:02; Admin Dose 50 ML; Start 08/02/18 at 13:30 Glucagon (Glucagen) 1 mg Q15M PRN IM DECREASED GLUCOSE; Start 08/02/18 at 13:30 Glucose (Glutose) 15 gm Q15M PRN BUCCAL DECREASED GLUCOSE; Start 08/02/18 at 13:30 Cholecalciferol (Vitamin D) 1,000 unit DAILY PO Last administered on 09/06/18 09:26; Admin Dose 1,000 UNIT; Start 08/03/18 at 09:00 Folic Acid (Folic Acid) 1 mg DAILY PO Last administered on 09/06/18 09:28; Admin Dose 1 MG; Start 08/03/18 at 09:00 Midodrine (Proamatine) 5 mg ON DIALYSIS DAYS PO Last administered on 09/06/18 09:28; Admin Dose 5 MG; Start 08/02/18 at 18:00 Gabapentin (Neurontin) 100 mg DAILY PO Last administered on 08/13/18 09:07; Admin Dose 100 MG; Start 08/07/18 at 11:30; Status Hold Phenol (Cepastat Lozenge) 1 lozenge Q1H PRN MT COUGH Last administered on 08/08/18 02:34; Admin Dose 1 LOZENGE; Start 08/07/18 at 23:00 Heparin Sodium (Porcine) (Heparin (1000 Units/ml)) 6,100 unit AFTER DIALYSIS CATHETER Last administered on 09/04/18 14:18; Admin Dose 6,100 UNIT; Start 08/16/18 at 22:30 Acetaminophen (Tylenol Tab) 650 mg Q6H PRN PO MILD PAIN(1-3)OR ELEVATED TEMP Last administered on 09/01/18 03:40; Admin Dose 325 MG; Start 08/18/18 at 05:30 Levothyroxine Sodium (Synthroid) 50 mcg DAILY@06 PO Last administered on 09/06/18 05:59; Admin Dose 50 MCG; Start 08/20/18 at 06:00 Famotidine (Pepcid) 20 mg DAILY PO Last administered on 09/06/18 09:26; Admin Dose 20 MG; Start 08/21/18 at 09:00 Apixaban (Eliquis) 2.5 mg BID PO Last administered on 08/27/18 21:24; Admin Dose 2.5 MG; Start 08/21/18 at 09:30; Status Hold Diagnostic Test (Pha) (Accu-Chek) 1 ea Q4 XX Last administered on 09/06/18 08:09; Admin Dose 1 EA; Start 08/23/18 at 21:00 Fat Emulsion Intravenous 250 ml @ 21 mls/hr DAILY IV Last administered on 09/06/18 10:40; Admin Dose 21 MLS/HR; Start 08/24/18 at 14:00 Total Parenteral Nutrition 1,000 ml @ 65 mls/hr [id number] IV Last administered on 09/05/18 22:30; Admin Dose 65 MLS/HR; Start 08/24/18 at 16:00 Albumin Human 100 ml @ 100 mls/hr WITH DIALYSIS PRN IV SBP <90 DURING DIALYSIS Last administered on 09/04/18 12:42; Admin Dose 100 MLS/HR; Start 08/26/18 at 08:30 Insulin Aspart (Novolog Insulin Pen) NOVOLOG *MODERATE* ALGORITHM Q4 SC Last administered on 09/05/18 12:06; Admin Dose 2 UNIT; Start 08/27/18 at 13:00 Fluticasone Propionate (Flonase 0.05% Nasal) 1 spray BID NASAL Last administered on 09/06/18 09:35; Admin Dose 1 SPRAY; Start 08/28/18 at 21:00; Stop 08/26/19 at 22:00 Albuterol/ Ipratropium (Duoneb) 3 ml Q6HWA RESP THERAPY HHN Last administered on 09/06/18 08:07; Admin Dose 3 ML; Start 08/28/18 at 20:00 Albuterol/ Ipratropium (Duoneb) 3 ml Q2H RESP THERAPY PRN HHN shortness of breath; Start 08/28/18 at 19:00 Loperamide HCl (Imodium Cap) 4 mg BID PO Last administered on 09/06/18 09:25; Admin Dose 4 MG; Start 08/31/18 at 21:00 Ferrous Sulfate (Ferrous Sulfate (Ec)) 325 mg BID PO Last administered on 09/06/18 09:26; Admin Dose 325 MG; Start 08/31/18 at 21:00 Loratadine (Claritin) 10 mg Q48H NGT Last administered on 3/22/19at 08:30; Admin Dose 10 MG; Start 09/02/18 at 08:30; Stop 09/11/18 at 23:59 Insulin Glargine (Lantus) 20 units BID@0800,2000 SC Last administered on 09/06/18at 07:45; Admin Dose 20 UNITS; Start 09/03/18 at 20:00 TU CARTER Sep 06, 2018 11:24
[2018-09-06] MEDS: TPN 1,000 ML IV SCH (11:52)
--- NOTE | 2018-09-06 12:58 | CONS ---
Assessment/Plan Assessment/Plan Hospital Course (Demo Recall) No events, looks comfortable, no fevers Microbiology: Blood cultures remain negative Antimicrobials: None Indwelling: Right IJ triple-lumen catheter, right femoral Filemon, left upper extremity AV graft or fistula Physical examination: Chronically ill-appearing elderly man who is noncommu nicative in no distress. Head atraumatic normocephalic. Sclera nonicteric. Neck is supple, chest rise symmetrical. Heart: S1-S2. Abdomen soft bowel sounds present. Extremities without cyanosis. 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 Pending [facility] evaluation Consultation Date/Type/Reason Admit Date/Time Aug 02, 2018 at 10:57 Initial Consult Date 08/09/18 Type of Consult id Requesting Provider: DULCE GALINDO Date/Time of Note DATE: 09/06/18 TIME: 12:56 Exam/Review of Systems Exam Vitals Vital Signs Date Temp Pulse Resp B/P (MAP) Pulse Ox O2 O2 Flow FiO2 Time Delivery Rate 09/06/18 97.0 76 21 96/58 (71) 96 Room Air 11:50 09/06/18 21 08:10 09/02/18 2.0 10:00 Intake and Output 09/05/18 09/05/18 09/06/18 1414:59 22:59 06:59 IntakeIntake Total 250 ml OutputOutput Total 200 ml BalanceBalance 50 ml Results Result Diagram: 09/06/18 0644 09/06/18 0644 Results 24hrs Laboratory Tests Test 09/05/18 17:40 09/05/18 22:14 09/06/18 02:25 09/06/18 05:15 Bedside Glucose 107 118 107 95 Test 09/06/18 06:44 09/06/18 07:23 09/06/18 11:57 White Blood Count 7.2 # Red Blood Count 2.96 L Hemoglobin 8.6 L Hematocrit 27.4 L Mean Corpuscular 92.6 Volume Mean Corpuscular 29.1 Hemoglobin Mean Corpuscular 31.4 L Hemoglobin Concent Red Cell 17.2 H Distribution Width Platelet Count 178 Mean Platelet Volume 11.7 H Immature 1.300 H Granulocytes % Neutrophils % Segmented 39 Neutrophils % (Manual) Band Neutrophils % 27 H (Manual) Lymphocytes % Lymphocytes % 18 (Manual) Monocytes % Monocytes % (Manual) 5 Eosinophils % Eosinophils % 9 H (Manual) Basophils % Basophils % (Manual) 2 Nucleated Red Blood 0.0 Cells % Immature 0.090 H Granulocytes # Neutrophils # Neutrophils # 2.9 (Manual) Band Neutrophils # 1.9 H Lymphocytes (Manual) 1.2 Lymphocytes # Monocytes # Monocytes # (Manual) 0.3 Eosinophils # Basophils # Basophils # (Manual) 0.1 H Nucleated Red Blood Cells # Platelet Estimate NORMAL Polychromasia 1+ Poikilocytosis 1+ Anisocytosis 1+ Macrocytosis 1+ Elliptocytes 1+ Sodium Level 136 Potassium Level 3.7 Chloride Level 101 Carbon Dioxide Level 21 Anion Gap 14 H Blood Urea Nitrogen 74 H Creatinine 4.61 H Est Glomerular Filtrat Rate mL/min Glucose Level 71 Calcium Level 9.7 Phosphorus Level 3.7 Magnesium Level 1.7 Albumin 2.5 L Bedside Glucose 80 93 Medications Medication Current Medications Ondansetron HCl (Zofran Inj) 4 mg Q6H PRN IV NAUSEA/VOMITING Last administered on 08/19/18 12:55; Admin Dose 4 MG; Start 08/02/18 at 13:00 Diagnostic Test (Pha) (Accu-Chek) 1 ea 02 XX Last administered on 09/05/18at 01:14; Admin Dose 1 EA; Start 08/03/18 at 02:00 Glucose (Glutose) 15 gm Q15M PRN PO DECREASED GLUCOSE; Start 08/02/18 at 13:30 Glucose (Glutose) 22.5 gm Q15M PRN PO DECREASED GLUCOSE; Start 08/02/18 at 13:30 Dextrose (D50w Syringe) 25 ml Q15M PRN IV DECREASED GLUCOSE Last administered on 09/02/18at 03:28; Admin Dose 25 ML; Start 08/02/18 at 13:30 Dextrose (D50w Syringe) 50 ml Q15M PRN IV DECREASED GLUCOSE Last administered on 09/02/18 01:02; Admin Dose 50 ML; Start 08/02/18 at 13:30 Glucagon (Glucagen) 1 mg Q15M PRN IM DECREASED GLUCOSE; Start 08/02/18 at 13:30 Glucose (Glutose) 15 gm Q15M PRN BUCCAL DECREASED GLUCOSE; Start 08/02/18 at 13:30 Cholecalciferol (Vitamin D) 1,000 unit DAILY PO Last administered on 09/06/18 09:26; Admin Dose 1,000 UNIT; Start 08/03/18 at 09:00 Folic Acid (Folic Acid) 1 mg DAILY PO Last administered on 09/06/18 09:28; Admin Dose 1 MG; Start 08/03/18 at 09:00 Midodrine (Proamatine) 5 mg ON DIALYSIS DAYS PO Last administered on 09/06/18 09:28; Admin Dose 5 MG; Start 08/02/18 at 18:00 Gabapentin (Neurontin) 100 mg DAILY PO Last administered on 08/13/18 09:07; Admin Dose 100 MG; Start 08/07/18 at 11:30; Status Hold Phenol (Cepastat Lozenge) 1 lozenge Q1H PRN MT COUGH Last administered on 08/08/18 02:34; Admin Dose 1 LOZENGE; Start 08/07/18 at 23:00 Heparin Sodium (Porcine) (Heparin (1000 Units/ml)) 6,100 unit AFTER DIALYSIS CATHETER Last administered on 09/04/18 14:18; Admin Dose 6,100 UNIT; Start 08/16/18 at 22:30 Acetaminophen (Tylenol Tab) 650 mg Q6H PRN PO MILD PAIN(1-3)OR ELEVATED TEMP Last administered on 09/01/18 03:40; Admin Dose 325 MG; Start 08/18/18 at 05:30 Levothyroxine Sodium (Synthroid) 50 mcg DAILY@06 PO Last administered on 09/06/18 05:59; Admin Dose 50 MCG; Start 08/20/18 at 06:00 Famotidine (Pepcid) 20 mg DAILY PO Last administered on 09/06/18 09:26; Admin Dose 20 MG; Start 08/21/18 at 09:00 Apixaban (Eliquis) 2.5 mg BID PO Last administered on 08/27/18 21:24; Admin Dose 2.5 MG; Start 08/21/18 at 09:30; Status Hold Diagnostic Test (Pha) (Accu-Chek) 1 ea Q4 XX Last administered on 09/06/18 11:57; Admin Dose 1 EA; Start 08/23/18 at 21:00 Fat Emulsion Intravenous 250 ml @ 21 mls/hr DAILY IV Last administered on 09/06/18 10:40; Admin Dose 21 MLS/HR; Start 08/24/18 at 14:00 Total Parenteral Nutrition 1,000 ml @ 65 mls/hr [id number] IV Last administered on 09/06/18 11:52; Admin Dose 65 MLS/HR; Start 08/24/18 at 16:00 Albumin Human 100 ml @ 100 mls/hr WITH DIALYSIS PRN IV SBP <90 DURING DIALYSIS Last administered on 09/04/18 12:42; Admin Dose 100 MLS/HR; Start 08/26/18 at 08:30 Insulin Aspart (Novolog Insulin Pen) NOVOLOG *MODERATE* ALGORITHM Q4 SC Last administered on 09/05/18 12:06; Admin Dose 2 UNIT; Start 08/27/18 at 13:00 Fluticasone Propionate (Flonase 0.05% Nasal) 1 spray BID NASAL Last administered on 09/06/18 09:35; Admin Dose 1 SPRAY; Start 08/28/18 at 21:00; Stop 08/26/19 at 22:00 Albuterol/ Ipratropium (Duoneb) 3 ml Q6HWA RESP THERAPY HHN Last administered on 09/06/18 08:07; Admin Dose 3 ML; Start 08/28/18 at 20:00 Albuterol/ Ipratropium (Duoneb) 3 ml Q2H RESP THERAPY PRN HHN shortness of breath; Start 08/28/18 at 19:00 Loperamide HCl (Imodium Cap) 4 mg BID PO Last administered on 09/06/18 09:25; Admin Dose 4 MG; Start 08/31/18 at 21:00 Ferrous Sulfate (Ferrous Sulfate (Ec)) 325 mg BID PO Last administered on 09/06/18 09:26; Admin Dose 325 MG; Start 08/31/18 at 21:00 Loratadine (Claritin) 10 mg Q48H NGT Last administered on 09/06/18at 08:30; Admin Dose 10 MG; Start 09/02/18 at 08:30; Stop 09/11/18 at 23:59 Insulin Glargine (Lantus) 20 units BID@0800,2000 SC Last administered on 09/06/18at 07:45; Admin Dose 20 UNITS; Start 09/03/18 at 20:00 CHIN FORD NP Sep 06, 2018 12:58
[2018-09-07] VITALS (34 sets, daily range): BP systolic 55–127; BP diastolic 11–82; PULSE 70–93; RESP 15–28
[2018-09-07] MEDS: ACCU-CHEK XX SCH ×7 (01:00→21:00)
[2018-09-07] MEDS: ALBUMIN HUMAN 25% 100 ML IV PRN (01:48)
[2018-09-07] MEDS: INSULIN ASPART [NOVOLOG] 3 ML PEN SC SCH ×6 (02:00→21:00)
[2018-09-07] MEDS: TPN 1,000 ML IV SCH ×2 (03:32→18:56)
[2018-09-07] MEDS ORDERED: ALBUMIN HUMAN 25% 100 ML IV ONE ×3 (04:30→12:30)
[2018-09-07] MEDS: HEPARIN 1000 UNITS/ML 10 ML INJ CATHETER SCH (04:46)
[2018-09-07] MEDS: LEVOTHYROXINE 50 MCG TAB PO SCH (06:00)
[2018-09-07] MEDS: ALBUTEROL/IPRATROPIUM (NEB) 3 ML AMP HHN SCH ×3 (07:42→19:24)
[2018-09-07] MEDS: INSULIN GLARGINE [LANTus] (100 UNITS/ML) SYG SC SCH ×2 (08:47→22:24)
--- NOTE | 2018-09-07 08:49 | PN ---
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 Other findings at the time of surgery include mild to moderate ascites, and fine, nodularity of the liver - cirrhosis?-, and inflammation extending from the transverse colon mesentary to the pancreas, which felt firm). Decision to have the next dialysis as per nephrology. 3 Pt is on O2 ( 2 l/min) , and on Levophed. He is due to have dialysis this am at 0800. Stable but still critical 3 Pt is w/o nausea, tolerating some liquids, and says he is passing some gas.Pt does not move well which was also the case pre-op but persists due to post op pain. 3 POD #6 doing well. Path shows T3N0 adenocarcinoma, and T4N0 GIST w/ 1 tumor implant 3 POD #8 Still confused, eats when prompted, not ambulating well 3 POD #9 Pt has an entero-cutaneous fistula. WBC is sl elevated from yesterday 3 POD #12 Stable fistula. Normal wbc, low albumin. TPN is in place 3 POD #13 400 cc of stool per fistula overnight ( 1300 in 24 hrs ? - unclear). TPN is ongoing. Pt is stable w/ good labs 3 POD #14 300 cc of stool now more bilious as the stool becomes mostly enteric secretions. TPN. Dialysis today 3 POD #16 550 cc over 24 hrs, and thick liquid , and no gas overnight. VSS, and normal wbc 3 POD #17 600 -900 cc of dark liquid stool and gas. VSS. Anemic and normal wbc. No ANTB x 2 days 3 POD #18 Liquid dark, greenish stool ( 600-900), low BP, anemia, and normal wbc. No sign of sepsis 3 POD #20 Fistula output is dropping. BP is stable off of pressors x 12 hrs. Normal wbc 3 POD #21 Unsure of fistula output for yesterday. Stable off of pressors 3 POD#22: Nursing reports trend of 650-400 daily output over past 2 days; abdomen soft, ND: Pt awake but non-verbal, abdomen is soft, afebrile, HCT stable, WBC WNL 3 POD#23: Fistula output 650-400-200 over past three days, HD today, WBC WNL, afebrile 3 POD #24: Fistula output [id number] over past 4 days, No HD yesterday, possibly today, WBC WNL, afebrile Result Diagram: 09/06/18 0644 09/06/18 0644 Results 24hrs Laboratory Tests Test 09/06/18 11:57 09/06/18 16:51 09/06/18 23:07 09/07/18 01:57 Bedside Glucose 93 140 249 H 249 H Test 09/07/18 05:05 09/07/18 08:03 Bedside Glucose 218 149 Subjective 24 Hr Interval Summary Subjective hx not possible: pt non-verbal Exam/Review of Systems Exam Vitals Vital Signs Date Temp Pulse Resp B/P (MAP) Pulse Ox O2 O2 Flow FiO2 Time Delivery Rate 09/07/18 70 08:01 09/07/18 Nasal 2.0 07:57 Cannula 09/07/18 92/33 (52) 07:43 09/07/18 18 100 07:42 09/07/18 98.0 07:16 09/06/18 21 19:53 Intake and Output 09/06/18 09/06/18 09/07/18 1515:00 23:00 07:00 IntakeIntake Total 1000 ml OutputOutput Total 250 ml BalanceBalance 1000 ml -250 ml Constitutional: non-verbal Gastrointestinal: soft (ND, ostomy bag with greenish fluid, NT) Results Results 24hrs Laboratory Tests Test 09/06/18 11:57 09/06/18 16:51 09/06/18 23:07 09/07/18 01:57 Bedside Glucose 93 140 249 H 249 H Test 09/07/18 05:05 09/07/18 08:03 Bedside Glucose 218 149 Medications Medication Current Medications Ondansetron HCl (Zofran Inj) 4 mg Q6H PRN IV NAUSEA/VOMITING Last administered on 08/19/18 12:55; Admin Dose 4 MG; Start 08/02/18 at 13:00 Diagnostic Test (Pha) (Accu-Chek) 1 ea 02 XX Last administered on 09/05/18 01:14; Admin Dose 1 EA; Start 08/03/18 at 02:00 Glucose (Glutose) 15 gm Q15M PRN PO DECREASED GLUCOSE; Start 08/02/18 at 13:30 Glucose (Glutose) 22.5 gm Q15M PRN PO DECREASED GLUCOSE; Start 08/02/18 at 13:30 Dextrose (D50w Syringe) 25 ml Q15M PRN IV DECREASED GLUCOSE Last administered on 09/02/18 03:28; Admin Dose 25 ML; Start 08/02/18 at 13:30 Dextrose (D50w Syringe) 50 ml Q15M PRN IV DECREASED GLUCOSE Last administered on 09/02/18 01:02; Admin Dose 50 ML; Start 08/02/18 at 13:30 Glucagon (Glucagen) 1 mg Q15M PRN IM DECREASED GLUCOSE; Start 08/02/18 at 13:30 Glucose (Glutose) 15 gm Q15M PRN BUCCAL DECREASED GLUCOSE; Start 08/02/18 at 13:30 Cholecalciferol (Vitamin D) 1,000 unit DAILY PO Last administered on 09/06/18 09:26; Admin Dose 1,000 UNIT; Start 08/03/18 at 09:00 Folic Acid (Folic Acid) 1 mg DAILY PO Last administered on 09/06/18 09:28; Admin Dose 1 MG; Start 08/03/18 at 09:00 Midodrine (Proamatine) 5 mg ON DIALYSIS DAYS PO Last administered on 09/06/18 09:28; Admin Dose 5 MG; Start 08/02/18 at 18:00 Gabapentin (Neurontin) 100 mg DAILY PO Last administered on 08/13/18 09:07; Admin Dose 100 MG; Start 08/07/18 at 11:30; Status Hold Phenol (Cepastat Lozenge) 1 lozenge Q1H PRN MT COUGH Last administered on 08/08/18 02:34; Admin Dose 1 LOZENGE; Start 08/07/18 at 23:00 Heparin Sodium (Porcine) (Heparin (1000 Units/ml)) 6,100 unit AFTER DIALYSIS CATHETER Last administered on 09/07/18 04:46; Admin Dose 6,100 UNIT; Start 08/16/18 at 22:30 Acetaminophen (Tylenol Tab) 650 mg Q6H PRN PO MILD PAIN(1-3)OR ELEVATED TEMP Last administered on 09/01/18 03:40; Admin Dose 325 MG; Start 08/18/18 at 05:30 Levothyroxine Sodium (Synthroid) 50 mcg DAILY@06 PO Last administered on 09/06/18 05:59; Admin Dose 50 MCG; Start 08/20/18 at 06:00 Famotidine (Pepcid) 20 mg DAILY PO Last administered on 09/06/18 09:26; Admin Dose 20 MG; Start 08/21/18 at 09:00 Apixaban (Eliquis) 2.5 mg BID PO Last administered on 08/27/18 21:24; Admin Dose 2.5 MG; Start 08/21/18 at 09:30; Status Hold Diagnostic Test (Pha) (Accu-Chek) 1 ea Q4 XX Last administered on 09/06/18 16:54; Admin Dose 1 EA; Start 08/23/18 at 21:00 Fat Emulsion Intravenous 250 ml @ 21 mls/hr DAILY IV Last administered on 09/06/18 10:40; Admin Dose 21 MLS/HR; Start 08/24/18 at 14:00 Total Parenteral Nutrition 1,000 ml @ 65 mls/hr [id number] IV Last administered on 09/07/18 03:32; Admin Dose 65 MLS/HR; Start 08/24/18 at 16:00 Albumin Human 100 ml @ 100 mls/hr WITH DIALYSIS PRN IV SBP <90 DURING DIALYSIS Last administered on 09/07/18 01:48; Admin Dose 100 MLS/HR; Start 08/26/18 at 08:30 Insulin Aspart (Novolog Insulin Pen) NOVOLOG *MODERATE* ALGORITHM Q4 SC Last administered on 09/07/18 05:26; Admin Dose 1 UNIT; Start 08/27/18 at 13:00 Fluticasone Propionate (Flonase 0.05% Nasal) 1 spray BID NASAL Last administered on 09/06/18at 23:00; Admin Dose 1 SPRAY; Start 08/28/18 at 21:00; Stop 08/26/19 at 22:00 Albuterol/ Ipratropium (Duoneb) 3 ml Q6HWA RESP THERAPY HHN Last administered on 09/07/18at 07:42; Admin Dose 3 ML; Start 08/28/18 at 20:00 Albuterol/ Ipratropium (Duoneb) 3 ml Q2H RESP THERAPY PRN HHN shortness of breath; Start 08/28/18 at 19:00 Loperamide HCl (Imodium Cap) 4 mg BID PO Last administered on 09/06/18at 23:00; Admin Dose 4 MG; Start 08/31/18 at 21:00 Ferrous Sulfate (Ferrous Sulfate (Ec)) 325 mg BID PO Last administered on 09/06/18at 23:00; Admin Dose 325 MG; Start 08/31/18 at 21:00 Loratadine (Claritin) 10 mg Q48H NGT Last administered on 09/06/18 08:30; Admin Dose 10 MG; Start 09/02/18 at 08:30; Stop 09/11/18 at 23:59 Insulin Glargine (Lantus) 20 units BID@0800,2000 SC Last administered on 09/06/18at 23:10; Admin Dose 20 UNITS; Start 09/03/18 at 20:00 Albumin Human 100 ml @ 100 mls/hr ONCE ONCE IV ; Start 09/07/18 at 10:30; Stop 09/07/18 at 11:29 CONCHITA ARVIZU M.D. Sep 07, 2018 08:49
[2018-09-07] MEDS: LOPERAMIDE 2 MG CAP PO SCH ×3 (08:56→21:00)
[2018-09-07] MEDS: FAMOTIDINE 20 MG TAB PO SCH ×2 (08:56→09:00)
[2018-09-07] MEDS: FERROUS SULFATE (EC) 325 MG TAB PO SCH ×3 (08:56→21:00)
[2018-09-07] MEDS: FOLIC ACID 1 MG TAB PO SCH ×2 (08:56→09:00)
[2018-09-07] MEDS: FAT EMULSION 20% 250 ML IV SCH (08:56)
[2018-09-07] MEDS: CHOLECALCIFEROL 1,000 UNIT TAB PO SCH ×2 (08:56→09:00)
[2018-09-07] MEDS: FLUTICASONE 0.05% 16 GM NAS SPRAY NASAL SCH ×2 (08:57→22:18)
[2018-09-07] MEDS: BALSAM PERU/CASTOR OIL 60 GM TUBE TOP SCH ×2 (08:57→22:18)
--- NOTE | 2018-09-07 12:15 | CONS ---
Consultation Date/Type/Reason Admit Date/Time Aug 02, 2018 at 10:57 Initial Consult Date SUBJECTIVE: Pt is sleepy, afebrile and looks comfortable. Hypotensive. VS: 61/23 HR: 70 T: 97.6 SO2: 95% on nasal canula at 2L Microbiology: Blood cultures remain negative Antimicrobials: None Indwelling: Right IJ triple-lumen catheter, right femoral Filemon, left upper extremity AV graft or fistula Physical examination: GEN: Chronically ill-appearing elderly man who is noncommunicative in no distress. HENT Head atraumatic normocephalic. Sclera nonicteric. Neck is supple PULM: chest rise symmetrical. Heart: S1-S2. Abdomen soft bowel sounds present. Extremities without cyanosis. Skin: Patient has mid abdominal incision with an area of dehiscence and drainage to which colostomy bag is applied with large amount of drainage and it. 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 Will continue present care, TPN, HD per renal. Pending [facility] placement. Requesting Provider: DULCE GALINDO Date/Time of Note DATE: 09/07/18 TIME: 12:10 Exam/Review of Systems Exam Vitals Vital Signs Date Temp Pulse Resp B/P (MAP) Pulse Ox O2 O2 Flow FiO2 Time Delivery Rate 09/07/18 97.6 70 18 61/23 (36) 95 Nasal 11:30 Cannula 09/07/18 2.0 07:57 09/06/18 21 19:53 Intake and Output 09/06/18 09/06/18 09/07/18 1414:59 22:59 06:59 IntakeIntake Total 1000 ml 20 ml OutputOutput Total 250 ml BalanceBalance 1000 ml -250 ml 20 ml Results Result Diagram: 09/06/18 0644 09/07/18 0706 Results 24hrs Laboratory Tests Test 09/06/18 16:51 09/06/18 23:07 09/07/18 01:57 09/07/18 05:05 Bedside Glucose 140 249 H 249 H 218 Test 09/07/18 07:06 09/07/18 08:03 Sodium Level 137 Potassium Level 3.9 Chloride Level 105 Carbon Dioxide Level 18 L Anion Gap 14 H Blood Urea Nitrogen 86 H Creatinine 4.94 H Est Glomerular Filtrat Rate mL/min Glucose Level 124 # Calcium Level 10.1 Phosphorus Level 4.0 Magnesium Level 1.8 Prealbumin 5.3 L Triglycerides Level 40 Bedside Glucose 149 Medications Medication Current Medications Ondansetron HCl (Zofran Inj) 4 mg Q6H PRN IV NAUSEA/VOMITING Last administered on 08/19/18 12:55; Admin Dose 4 MG; Start 08/02/18 at 13:00 Diagnostic Test (Pha) (Accu-Chek) 1 ea 02 XX Last administered on 09/05/18 01:14; Admin Dose 1 EA; Start 08/03/18 at 02:00 Glucose (Glutose) 15 gm Q15M PRN PO DECREASED GLUCOSE; Start 08/02/18 at 13:30 Glucose (Glutose) 22.5 gm Q15M PRN PO DECREASED GLUCOSE; Start 08/02/18 at 1 3:30 Dextrose (D50w Syringe) 25 ml Q15M PRN IV DECREASED GLUCOSE Last administered on 09/02/18 03:28; Admin Dose 25 ML; Start 08/02/18 at 13:30 Dextrose (D50w Syringe) 50 ml Q15M PRN IV DECREASED GLUCOSE Last administered on 09/02/18 01:02; Admin Dose 50 ML; Start 08/02/18 at 13:30 Glucagon (Glucagen) 1 mg Q15M PRN IM DECREASED GLUCOSE; Start 08/02/18 at 13:30 Glucose (Glutose) 15 gm Q15M PRN BUCCAL DECREASED GLUCOSE; Start 08/02/18 at 13:30 Cholecalciferol (Vitamin D) 1,000 unit DAILY PO Last administered on 09/06/18 09:26; Admin Dose 1,000 UNIT; Start 08/03/18 at 09:00 Folic Acid (Folic Acid) 1 mg DAILY PO Last administered on 09/06/18 09:28; Admin Dose 1 MG; Start 08/03/18 at 09:00 Midodrine (Proamatine) 5 mg ON DIALYSIS DAYS PO Last administered on 09/06/18 09:28; Admin Dose 5 MG; Start 08/02/18 at 18:00 Gabapentin (Neurontin) 100 mg DAILY PO Last administered on 08/13/18 09:07; Admin Dose 100 MG; Start 08/07/18 at 11:30; Status Hold Phenol (Cepastat Lozenge) 1 lozenge Q1H PRN MT COUGH Last administered on 08/08/18 02:34; Admin Dose 1 LOZENGE; Start 08/07/18 at 23:00 Heparin Sodium (Porcine) (Heparin (1000 Units/ml)) 6,100 unit AFTER DIALYSIS CATHETER Last administered on 09/07/18 04:46; Admin Dose 6,100 UNIT; Start 08/16/18 at 22:30 Acetaminophen (Tylenol Tab) 650 mg Q6H PRN PO MILD PAIN(1-3)OR ELEVATED TEMP Last administered on 09/01/18 03:40; Admin Dose 325 MG; Start 08/18/18 at 05:30 Levothyroxine Sodium (Synthroid) 50 mcg DAILY@06 PO Last administered on 09/06/18 05:59; Admin Dose 50 MCG; Start 08/20/18 at 06:00 Famotidine (Pepcid) 20 mg DAILY PO Last administered on 09/06/18 09:26; Admin Dose 20 MG; Start 08/21/18 at 09:00 Apixaban (Eliquis) 2.5 mg BID PO Last administered on 08/27/18 21:24; Admin Dose 2.5 MG; Start 08/21/18 at 09:30; Status Hold Diagnostic Test (Pha) (Accu-Chek) 1 ea Q4 XX Last administered on 09/07/18 08:48; Admin Dose 1 EA; Start 08/23/18 at 21:00 Fat Emulsion Intravenous 250 ml @ 21 mls/hr DAILY IV Last administered on 09/07/18 08:56; Admin Dose 21 MLS/HR; Start 08/24/18 at 14:00 Total Parenteral Nutrition 1,000 ml @ 65 mls/hr [id number] IV Last administered on 09/07/18 03:32; Admin Dose 65 MLS/HR; Start 08/24/18 at 16:00 Albumin Human 100 ml @ 100 mls/hr WITH DIALYSIS PRN IV SBP <90 DURING DIALYSIS Last administered on 09/07/18 01:48; Admin Dose 100 MLS/HR; Start 08/26/18 at 08:30 Insulin Aspart (Novolog Insulin Pen) NOVOLOG *MODERATE* ALGORITHM Q4 SC Last administered on 09/07/18 08:11; Admin Dose 2 UNIT; Start 08/27/18 at 13:00 Fluticasone Propionate (Flonase 0.05% Nasal) 1 spray BID NASAL Last administered on 09/07/18 08:57; Admin Dose 1 SPRAY; Start 08/28/18 at 21:00; Stop 08/26/19 at 22:00 Albuterol/ Ipratropium (Duoneb) 3 ml Q6HWA RESP THERAPY HHN Last administered on 09/07/18 07:42; Admin Dose 3 ML; Start 08/28/18 at 20:00 Albuterol/ Ipratropium (Duoneb) 3 ml Q2H RESP THERAPY PRN HHN shortness of breath; Start 08/28/18 at 19:00 Loperamide HCl (Imodium Cap) 4 mg BID PO Last administered on 09/06/18at 23:00; Admin Dose 4 MG; Start 08/31/18 at 21:00 Ferrous Sulfate (Ferrous Sulfate (Ec)) 325 mg BID PO Last administered on 09/06/18 23:00; Admin Dose 325 MG; Start 08/31/18 at 21:00 Loratadine (Claritin) 10 mg Q48H NGT Last administered on 09/06/18 08:30; Admin Dose 10 MG; Start 09/02/18 at 08:30; Stop 09/11/18 at 23:59 Insulin Glargine (Lantus) 20 units BID@0800,2000 SC Last administered on 09/07/18 08:47; Admin Dose 20 UNITS; Start 09/03/18 at 20:00 MIQUEL MURO Sep 07, 2018 12:15
--- NOTE | 2018-09-07 12:45 | CONS ---
Assessment/Plan Assessment/Plan Assessment/Plan (Daily) #Adenocarcinoma of ascending Colon ca -final pathology report reveals 2 separate masses with different pathology results. -the ascending colon mass is consistent with a Moderately-differentiated adenocarcinoma, invading through the muscularis propria, with all 0/18 negative for disease, 3.6 x 2.8 x 1.1 cm. -the splenic flexture mass is 10.5 x 9.0 x 7.0 cm.and consistent with a high grade GIST tumor -CT does not reveal evidence of distant mets -in terms of the adenocarcinoma, pt does not need adjuvant chemotherapy given this was a stage IIA tumor. 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 he is now on D 10 #Hypothyroidism - Continue Synthroid #Nonischemic CM - pacer in place - nonchronic Patient seen in collaboration with Dr Hodges. Consultation Date/Type/Reason Admit Date/Time Aug 02, 2018 at 10:57 Initial Consult Date 08/09/18 Type of Consult oncology Requesting Provider: DULCE GALINDO Date/Time of Note DATE: 09/07/18 TIME: 12:44 24 HR Interval Summary Free Text/Dictation patient is lethargic today Family at bed side- all Qs answered no new events reported overnight per staff Constitutional: requiring IVF, requiring O2 Exam/Review of Systems Exam Vitals Vital Signs Date Temp Pulse Resp B/P (MAP) Pulse Ox O2 O2 Flow FiO2 Time Delivery Rate 09/07/18 70 12:01 09/07/18 97.6 18 61/ (36) 95 Nasal 11:30 Cannula 09/07/18 2.0 07:57 09/06/18 21 19:53 Intake and Output 09/06/18 09/06/18 09/07/18 1515:00 23:00 07:00 IntakeIntake Total 1000 ml 20 ml OutputOutput Total 250 ml BalanceBalance 1000 ml -250 ml 20 ml Constitutional: well developed, frail, other (lethargic) Psych: nl mood/affect Eyes: nl lids, nl sclera ENMT: nl external ears & nose Respiratory: diminished breath sounds Cardiovascular: nl pulses, other (s1s2) Gastrointestinal: soft, non-tender Musculoskeletal: nl extremities to inspection Extremities: edema Neurological: confused Skin: nl turgor Results Result Diagram: 09/06/18 0644 09/07/18 0706 Results 24hrs Laboratory Tests Test 09/06/18 16:51 09/06/18 23:07 09/07/18 01:57 09/07/18 05:05 Bedside Glucose 140 249 H 249 H 218 Test 09/07/18 07:06 09/07/18 08:03 Sodium Level 137 Potassium Level 3.9 Chloride Level 105 Carbon Dioxide Level 18 L Anion Gap 14 H Blood Urea Nitrogen 86 H Creatinine 4.94 H Est Glomerular Filtrat Rate mL/min Glucose Level 124 # Calcium Level 10.1 Phosphorus Level 4.0 Magnesium Level 1.8 Prealbumin 5.3 L Triglycerides Level 40 Bedside Glucose 149 Medications Medication Current Medications Ondansetron HCl (Zofran Inj) 4 mg Q6H PRN IV NAUSEA/VOMITING Last administered on 08/19/18at 12:55; Admin Dose 4 MG; Start 08/02/18 at 13:00 Diagnostic Test (Pha) (Accu-Chek) 1 ea 02 XX Last administered on 09/05/18at 01:14; Admin Dose 1 EA; Start 08/03/18 at 02:00 Glucose (Glutose) 15 gm Q15M PRN PO DECREASED GLUCOSE; Start 08/02/18 at 13:30 Glucose (Glutose) 22.5 gm Q15M PRN PO DECREASED GLUCOSE; Start 08/02/18 at 13:30 Dextrose (D50w Syringe) 25 ml Q15M PRN IV DECREASED GLUCOSE Last administered on 09/02/18at 03:28; Admin Dose 25 ML; Start 08/02/18 at 13:30 Dextrose (D50w Syringe) 50 ml Q15M PRN IV DECREASED GLUCOSE Last administered on 09/02/18 01:02; Admin Dose 50 ML; Start 08/02/18 at 13:30 Glucagon (Glucagen) 1 mg Q15M PRN IM DECREASED GLUCOSE; Start 08/02/18 at 13:30 Glucose (Glutose) 15 gm Q15M PRN BUCCAL DECREASED GLUCOSE; Start 08/02/18 at 13:30 Cholecalciferol (Vitamin D) 1,000 unit DAILY PO Last administered on 09/06/18 09:26; Admin Dose 1,000 UNIT; Start 08/03/18 at 09:00 Folic Acid (Folic Acid) 1 mg DAILY PO Last administered on 09/06/18 09:28; Admin Dose 1 MG; Start 08/03/18 at 09:00 Midodrine (Proamatine) 5 mg ON DIALYSIS DAYS PO Last administered on 09/06/18 09:28; Admin Dose 5 MG; Start 08/02/18 at 18:00 Gabapentin (Neurontin) 100 mg DAILY PO Last administered on 08/13/18 09:07; Admin Dose 100 MG; Start 08/07/18 at 11:30; Status Hold Phenol (Cepastat Lozenge) 1 lozenge Q1H PRN MT COUGH Last administered on 08/08/18 02:34; Admin Dose 1 LOZENGE; Start 08/07/18 at 23:00 Heparin Sodium (Porcine) (Heparin (1000 Units/ml)) 6,100 unit AFTER DIALYSIS CATHETER Last administered on 09/07/18 04:46; Admin Dose 6,100 UNIT; Start 08/16/18 at 22:30 Acetaminophen (Tylenol Tab) 650 mg Q6H PRN PO MILD PAIN(1-3)OR ELEVATED TEMP Last administered on 09/01/18 03:40; Admin Dose 325 MG; Start 08/18/18 at 05:30 Levothyroxine Sodium (Synthroid) 50 mcg DAILY@06 PO Last administered on 09/06/18 05:59; Admin Dose 50 MCG; Start 08/20/18 at 06:00 Famotidine (Pepcid) 20 mg DAILY PO Last administered on 09/06/18 09:26; Admin Dose 20 MG; Start 08/21/18 at 09:00 Apixaban (Eliquis) 2.5 mg BID PO Last administered on 08/27/18 21:24; Admin Dose 2.5 MG; Start 08/21/18 at 09:30; Status Hold Diagnostic Test (Pha) (Accu-Chek) 1 ea Q4 XX Last administered on 09/07/18 08:48; Admin Dose 1 EA; Start 08/23/18 at 21:00 Fat Emulsion Intravenous 250 ml @ 21 mls/hr DAILY IV Last administered on 09/07/18 08:56; Admin Dose 21 MLS/HR; Start 08/24/18 at 14:00 Total Parenteral Nutrition 1,000 ml @ 65 mls/hr [id number] IV Last administered on 09/07/18 03:32; Admin Dose 65 MLS/HR; Start 08/24/18 at 16:00 Albumin Human 100 ml @ 100 mls/hr WITH DIALYSIS PRN IV SBP <90 DURING DIALYSIS Last administered on 09/07/18 01:48; Admin Dose 100 MLS/HR; Start 08/26/18 at 08:30 Insulin Aspart (Novolog Insulin Pen) NOVOLOG *MODERATE* ALGORITHM Q4 SC Last administered on 09/07/18 08:11; Admin Dose 2 UNIT; Start 08/27/18 at 13:00 Fluticasone Propionate (Flonase 0.05% Nasal) 1 spray BID NASAL Last administered on 09/07/18 08:57; Admin Dose 1 SPRAY; Start 08/28/18 at 21:00; Stop 08/26/19 at 22:00 Albuterol/ Ipratropium (Duoneb) 3 ml Q6HWA RESP THERAPY HHN Last administered on 09/07/18 07:42; Admin Dose 3 ML; Start 08/28/18 at 20:00 Albuterol/ Ipratropium (Duoneb) 3 ml Q2H RESP THERAPY PRN HHN shortness of breath; Start 08/28/18 at 19:00 Loperamide HCl (Imodium Cap) 4 mg BID PO Last administered on 09/06/18 23:00; Admin Dose 4 MG; Start 08/31/18 at 21:00 Ferrous Sulfate (Ferrous Sulfate (Ec)) 325 mg BID PO Last administered on 09/06/18 23:00; Admin Dose 325 MG; Start 08/31/18 at 21:00 Loratadine (Claritin) 10 mg Q48H NGT Last administered on 09/06/18 08:30; Admin Dose 10 MG; Start 09/02/18 at 08:30; Stop 09/11/18 at 23:59 Insulin Glargine (Lantus) 20 units BID@0800,2000 SC Last administered on 09/07/18 08:47; Admin Dose 20 UNITS; Start 09/03/18 at 20:00 Albumin Human 100 ml @ 100 mls/hr ONCE ONCE IV Last administered on 09/07/18at 12:15; Admin Dose 100 MLS/HR; Start 09/07/18 at 12:30; Stop 09/07/18 at 13:29 SHAMIR FRANKS Sep 07, 2018 12:45
--- NOTE | 2018-09-07 14:38 | CONS ---
[facility] HCIS Consult Follow-up Patient Name: Scott Buck Unit Number: [id number] Date of : 1940 Patient Status: Admitted Inpatient Attending Doctor: Preeti Marley MD Edit: NNEKA FRITZ MD on 09/07/18 @ 16:49 PT SEEN AND EXAMINED HYPOTENSIVE YSTERDAY ON HD NEED ICU FRO PRESSOR SUPPORT FOR HD SPOKE TO DR marley Assessment/Plan Assessment/Plan Hospital Course (Demo Recall) 1 End-stage renal disease, on hemodialysis, MWF with mild CHF 2. Bloody diarrhea with evidence of splenic flexure mass on the CT and possible fistula communicating through the small intestine status post colonoscopy with 2: Masses s/p subtotal colectomy. Now abdominal fistula with pouch 3. Hypotension. On Midodrine at home 4. History of congestive heart failure 5. Hypercholesterolemia. 6. Hx of total hip replacement. 7. Clotted left arm AV graft 8. Hypoglycemia. 9. Macrocytic hypochromic anemia mixed etiology, recent blood loss and 2/2 kidney disease 10. 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 DM type II, controlled now Assessment/Plan (Daily) -HD MWF> HD today, yesterday was low BP - albumin/midodrine on HD day -TPN per surgery -Renally dose dose all meds - avoid nephrotoxins Consultation Date/Type/Reason Admit Date/Time Aug 02, 2018 at 10:57 Initial Consult Date 08/02/18 Type of Consult nephrology Requesting Provider: DULCE GALINDO Date/Time of Note DATE: 09/07/18 TIME: 14:37 24 HR Interval Summary Free Text/Dictation pale Subjective hx not possible: pt non-verbal Exam/Review of Systems Exam Vitals Vital Signs Date Temp Pulse Resp B/P (MAP) Pulse Ox O2 O2 Flow FiO2 Time Delivery Rate 09/07/18 70 98/36 (56) 13:00 09/07/18 97.6 18 95 Nasal 11:30 Cannula 09/07/18 2.0 07:57 09/06/18 21 19:53 Intake and Output 09/06/18 09/06/18 09/07/18 1515:00 23:00 07:00 IntakeIntake Total 1000 ml 20 ml OutputOutput Total 250 ml BalanceBalance 1000 ml -250 ml 20 ml Exam right inguinal Permcath Constitutional: alert Cardiovascular: regular rate and rhythm Gastrointestinal: soft, surgical scars, other (pouch) Musculoskeletal: muscle weakness Results Result Diagram: 09/06/18 0644 09/07/18 0706 Results 24hrs Laboratory Tests Test 09/06/18 16:51 09/06/18 23:07 09/07/18 01:57 09/07/18 05:05 Bedside Glucose 140 249 H 249 H 218 Test 09/07/18 07:06 09/07/18 08:03 09/07/18 12:58 Sodium Level 137 Potassium Level 3.9 Chloride Level 105 Carbon Dioxide Level 18 L Anion Gap 14 H Blood Urea Nitrogen 86 H Creatinine 4.94 H Est Glomerular Filtrat Rate mL/min Glucose Level 124 # Calcium Level 10.1 Phosphorus Level 4.0 Magnesium Level 1.8 Prealbumin 5.3 L Triglycerides Level 40 Bedside Glucose 149 188 Medications Medication Current Medications Ondansetron HCl (Zofran Inj) 4 mg Q6H PRN IV NAUSEA/VOMITING Last administered on 08/19/18at 12:55; Admin Dose 4 MG; Start 08/02/18 at 13:00 Diagnostic Test (Pha) (Accu-Chek) 1 ea 02 XX Last administered on 09/05/18at 01:14; Admin Dose 1 EA; Start 08/03/18 at 02:00 Glucose (Glutose) 15 gm Q15M PRN PO DECREASED GLUCOSE; Start 08/02/18 at 13:30 Glucose (Glutose) 22.5 gm Q15M PRN PO DECREASED GLUCOSE; Start 08/02/18 at 13:30 Dextrose (D50w Syringe) 25 ml Q15M PRN IV DECREASED GLUCOSE Last administered on 09/02/18at 03:28; Admin Dose 25 ML; Start 08/02/18 at 13:30 Dextrose (D50w Syringe) 50 ml Q15M PRN IV DECREASED GLUCOSE Last administered on 09/02/18 01:02; Admin Dose 50 ML; Start 08/02/18 at 13:30 Glucagon (Glucagen) 1 mg Q15M PRN IM DECREASED GLUCOSE; Start 08/02/18 at 13:30 Glucose (Glutose) 15 gm Q15M PRN BUCCAL DECREASED GLUCOSE; Start 08/02/18 at 13:30 Cholecalciferol (Vitamin D) 1,000 unit DAILY PO Last administered on 09/06/18 09:26; Admin Dose 1,000 UNIT; Start 08/03/18 at 09:00 Folic Acid (Folic Acid) 1 mg DAILY PO Last administered on 09/06/18 09:28; Admin Dose 1 MG; Start 08/03/18 at 09:00 Midodrine (Proamatine) 5 mg ON DIALYSIS DAYS PO Last administered on 09/06/18 09:28; Admin Dose 5 MG; Start 08/02/18 at 18:00 Gabapentin (Neurontin) 100 mg DAILY PO Last administered on 08/13/18 09:07; Admin Dose 100 MG; Start 08/07/18 at 11:30; Status Hold Phenol (Cepastat Lozenge) 1 lozenge Q1H PRN MT COUGH Last administered on 08/08/18 02:34; Admin Dose 1 LOZENGE; Start 08/07/18 at 23:00 Heparin Sodium (Porcine) (Heparin (1000 Units/ml)) 6,100 unit AFTER DIALYSIS CATHETER Last administered on 09/07/18 04:46; Admin Dose 6,100 UNIT; Start 08/16/18 at 22:30 Acetaminophen (Tylenol Tab) 650 mg Q6H PRN PO MILD PAIN(1-3)OR ELEVATED TEMP Last administered on 09/01/18 03:40; Admin Dose 325 MG; Start 08/18/18 at 05:30 Levothyroxine Sodium (Synthroid) 50 mcg DAILY@06 PO Last administered on 09/06/18 05:59; Admin Dose 50 MCG; Start 08/20/18 at 06:00 Famotidine (Pepcid) 20 mg DAILY PO Last administered on 09/06/18 09:26; Admin Dose 20 MG; Start 08/21/18 at 09:00 Apixaban (Eliquis) 2.5 mg BID PO Last administered on 08/27/18 21:24; Admin Dose 2.5 MG; Start 08/21/18 at 09:30; Status Hold Diagnostic Test (Pha) (Accu-Chek) 1 ea Q4 XX Last administered on 09/07/18 13:01; Admin Dose 1 EA; Start 08/23/18 at 21:00 Fat Emulsion Intravenous 250 ml @ 21 mls/hr DAILY IV Last administered on 09/07/18 08:56; Admin Dose 21 MLS/HR; Start 08/24/18 at 14:00 Total Parenteral Nutrition 1,000 ml @ 65 mls/hr [id number] IV Last administered on 09/07/18 03:32; Admin Dose 65 MLS/HR; Start 08/24/18 at 16:00 Albumin Human 100 ml @ 100 mls/hr WITH DIALYSIS PRN IV SBP <90 DURING DIALYSIS Last administered on 09/07/18 01:48; Admin Dose 100 MLS/HR; Start 08/26/18 at 08:30 Insulin Aspart (Novolog Insulin Pen) NOVOLOG *MODERATE* ALGORITHM Q4 SC Last administered on 09/07/18 13:05; Admin Dose 4 UNIT; Start 08/27/18 at 13:00 Fluticasone Propionate (Flonase 0.05% Nasal) 1 spray BID NASAL Last administered on 09/07/18 08:57; Admin Dose 1 SPRAY; Start 08/28/18 at 21:00; Stop 08/26/19 at 22:00 Albuterol/ Ipratropium (Duoneb) 3 ml Q6HWA RESP THERAPY HHN Last administered on 09/07/18 07:42; Admin Dose 3 ML; Start 08/28/18 at 20:00 Albuterol/ Ipratropium (Duoneb) 3 ml Q2H RESP THERAPY PRN HHN shortness of breath; Start 08/28/18 at 19:00 Loperamide HCl (Imodium Cap) 4 mg BID PO Last administered on 09/06/18 23:00; Admin Dose 4 MG; Start 08/31/18 at 21:00 Ferrous Sulfate (Ferrous Sulfate (Ec)) 325 mg BID PO Last administered on 09/06/18 23:00; Admin Dose 325 MG; Start 08/31/18 at 21:00 Loratadine (Claritin) 10 mg Q48H NGT Last administered on 09/06/18at 08:30; Admin Dose 10 MG; Start 09/02/18 at 08:30; Stop 09/11/18 at 23:59 Insulin Glargine (Lantus) 20 units BID@0800,2000 SC Last administered on 09/07/18 08:47; Admin Dose 20 UNITS; Start 09/03/18 at 20:00 TU CARTER 23, 2019 14:38
--- NOTE | 2018-09-07 18:03 | PN ---
Date/Time of Note Date/Time of Note DATE: 09/07/18 TIME: 17:58 Assessment/Plan VTE Prophylaxis Risk score (from Ns)>0 risk: 12 SCD applied (from Ns): Yes Pharmacological prophylaxis: NA/contraindicated Pharm contraindication: anticoag not tolerated Lines/Catheters IV C[facility]from [facility] perma cath Urinary Cath still in place: No Assessment/Plan Assessment/Plan 1. Colonic mass at the splenic flexure and ascending colon s/p subtotal colectomy and small bowel resection on 08/14/18 - General surgery recommendations appreciated and continue current care. Monitor daily output from ostomy - GI consultation appreciated and EGD/colonoscopy performed - Path report noted with adenocarcinoma in ascending colon and GIST tumor in splenic flexure 2. End-stage renal disease on HD - Nephrology on board for HD management and appreciate recommendations - Will need pressor support in order to undergo HD with volume removal since persists with hypotension despite albumin 3. Anemia of chronic disease - stable - continue monitoring - holding Eliquis at this time given low hgb levels 4. GIST tumor - Oncology on board and appreciate recommendations. Will need 36 months of adjuvant therapy 5. ?Shock secondary to hemodynamics vs infectious etiology - ID on board and appreciate recommendations - pressor support in order to continue HD 6. Acute toxic encephalopathy - Neurology input appreciated - MRI unable to be done due to pacemaker 7. Arm swelling, right brachial DVT, thrombosis of left cephalic vein - Ultrasound showed right brachial DVT as well as thrombosis of the left cephalic vein. Patient's midline on his right arm is the likely culprit for the DVT on his right brachial vein. - monitor, warm compresses. - Patient is likely an hypercoagulable state due to his carcinoma. Will restart Eliquis when possible - clogged fistula catheter (HeRO), consulted Dr. Coelho for recs as he is patient's vascular surgeon, recommended Horacio for now until we can fully anticoagulate. Follow as outpatient 8. Diabetes - A1c noted - ISS and accuchecks 9. Esophagitis - Continue PPI 10. Hypothyroidism - Continue home Synthroid 11. Nonischemic CM - pacer in place - Chronic per outpatient [employer] [facility] 12. Mild acute on chronic systolic HF - fluid removal during HD - Cardiology consultation appreciated 13. Disposition - Per SW discussion with family, they would like to hold off on hospice for another 4 weeks to see how the fistula healing process progresses - Transfer to ICU for pressor support given hypotensive and requiring HD for volume removal Result Diagram: 09/06/18 0644 09/07/18 0706 Results 24hrs Laboratory Tests Test 09/06/18 23:07 09/07/18 01:57 09/07/18 05:05 09/07/18 07:06 Bedside Glucose 249 H 249 H 218 Sodium Level 137 Potassium Level 3.9 Chloride Level 105 Carbon Dioxide Level 18 L Anion Gap 14 H Blood Urea Nitrogen 86 H Creatinine 4.94 H Est Glomerular Filtrat Rate mL/min Glucose Level 124 # Calcium Level 10.1 Phosphorus Level 4.0 Magnesium Level 1.8 Prealbumin 5.3 L Triglycerides Level 40 Test 09/07/18 08:03 09/07/18 12:58 09/07/18 16:47 Bedside Glucose 149 188 154 Subjective 24 Hr Interval Summary Free Text/Dictation Patient able to answer simple questions but still lethargic this am. No acute distress and denies any pain. Exam/Review of Systems Exam Vitals Vital Signs Date Temp Pulse Resp B/P (MAP) Pulse Ox O2 O2 Flow FiO2 Time Delivery Rate 09/07/18 70 16:01 09/07/18 95/52 (66) 15:32 09/07/18 97.6 18 97 Nasal 15:19 Cannula 09/07/18 2.0 07:57 09/06/18 21 19:53 Intake and Output 09/06/18 09/06/18 09/07/18 1515:00 23:00 07:00 IntakeIntake Total 1000 ml 20 ml OutputOutput Total 250 ml BalanceBalance 1000 ml -250 ml 20 ml Exam General: Patient is laying in bed, lethargic, answering simple questions Respiratory: Clear to auscultation bilaterally. no wheezing. diminished at bases Cardiovascular: regular rate and rhythm, no obvious murmurs Gastrointestinal: soft, tender to palpation, bowel sounds heard. fistula present with output in ostomy bag Neurological: Moves all extremities spontaneously Ext: diffuse swelling of LUE, mild swelling RUE, and pitting edema LE bilaterally Skin: No new skin lesions Results Results 24hrs Laboratory Tests Test 09/06/18 23:07 09/07/18 01:57 09/07/18 05:05 09/07/18 07:06 Bedside Glucose 249 H 249 H 218 Sodium Level 137 Potassium Level 3.9 Chloride Level 105 Carbon Dioxide Level 18 L Anion Gap 14 H Blood Urea Nitrogen 86 H Creatinine 4.94 H Est Glomerular Filtrat Rate mL/min Glucose Level 124 # Calcium Level 10.1 Phosphorus Level 4.0 Magnesium Level 1.8 Prealbumin 5.3 L Triglycerides Level 40 Test 09/07/18 08:03 09/07/18 12:58 09/07/18 16:47 Bedside Glucose 149 188 154 Medications Medication Current Medications Ondansetron HCl (Zofran Inj) 4 mg Q6H PRN IV NAUSEA/VOMITING Last administered on 08/19/18 12:55; Admin Dose 4 MG; Start 08/02/18 at 13:00 Diagnostic Test (Pha) (Accu-Chek) 1 ea 02 XX Last administered on 09/05/18 01: 14; Admin Dose 1 EA; Start 08/03/18 at 02:00 Glucose (Glutose) 15 gm Q15M PRN PO DECREASED GLUCOSE; Start 08/02/18 at 13:30 Glucose (Glutose) 22.5 gm Q15M PRN PO DECREASED GLUCOSE; Start 08/02/18 at 13:30 Dextrose (D50w Syringe) 25 ml Q15M PRN IV DECREASED GLUCOSE Last administered on 09/02/18 03:28; Admin Dose 25 ML; Start 08/02/18 at 13:30 Dextrose (D50w Syringe) 50 ml Q15M PRN IV DECREASED GLUCOSE Last administered on 09/02/18 01:02; Admin Dose 50 ML; Start 08/02/18 at 13:30 Glucagon (Glucagen) 1 mg Q15M PRN IM DECREASED GLUCOSE; Start 08/02/18 at 13:30 Glucose (Glutose) 15 gm Q15M PRN BUCCAL DECREASED GLUCOSE; Start 08/02/18 at 13:30 Cholecalciferol (Vitamin D) 1,000 unit DAILY PO Last administered on 09/06/18 09:26; Admin Dose 1,000 UNIT; Start 08/03/18 at 09:00 Folic Acid (Folic Acid) 1 mg DAILY PO Last administered on 09/06/18 09:28; Admin Dose 1 MG; Start 08/03/18 at 09:00 Gabapentin (Neurontin) 100 mg DAILY PO Last administered on 08/13/18 09:07; Admin Dose 100 MG; Start 08/07/18 at 11:30; Status Hold Phenol (Cepastat Lozenge) 1 lozenge Q1H PRN MT COUGH Last administered on 08/08/18 02:34; Admin Dose 1 LOZENGE; Start 08/07/18 at 23:00 Heparin Sodium (Porcine) (Heparin (1000 Units/ml)) 6,100 unit AFTER DIALYSIS CATHETER Last administered on 09/07/18 04:46; Admin Dose 6,100 UNIT; Start 08/16/18 at 22:30 Acetaminophen (Tylenol Tab) 650 mg Q6H PRN PO MILD PAIN(1-3)OR ELEVATED TEMP Last administered on 09/01/18 03:40; Admin Dose 325 MG; Start 08/18/18 at 05:30 Levothyroxine Sodium (Synthroid) 50 mcg DAILY@06 PO Last administered on 09/06/18 05:59; Admin Dose 50 MCG; Start 08/20/18 at 06:00 Famotidine (Pepcid) 20 mg DAILY PO Last administered on 09/06/18 09:26; Admin Dose 20 MG; Start 08/21/18 at 09:00 Apixaban (Eliquis) 2.5 mg BID PO Last administered on 08/27/18 21:24; Admin Dose 2.5 MG; Start 08/21/18 at 09:30; Status Hold Diagnostic Test (Pha) (Accu-Chek) 1 ea Q4 XX Last administered on 09/07/18 16:47; Admin Dose 1 EA; Start 08/23/18 at 21:00 Fat Emulsion Intravenous 250 ml @ 21 mls/hr DAILY IV Last administered on 09/07/18 08:56; Admin Dose 21 MLS/HR; Start 08/24/18 at 14:00 Total Parenteral Nutrition 1,000 ml @ 65 mls/hr [id number] IV Last administered on 09/07/18 03:32; Admin Dose 65 MLS/HR; Start 08/24/18 at 16:00 Albumin Human 100 ml @ 100 mls/hr WITH DIALYSIS PRN IV SBP <90 DURING DIALYSIS Last administered on 09/07/18 01:48; Admin Dose 100 MLS/HR; Start 08/26/18 at 08:30 Insulin Aspart (Novolog Insulin Pen) NOVOLOG *MODERATE* ALGORITHM Q4 SC Last administered on 09/07/18 17:08; Admin Dose 2 UNIT; Start 08/27/18 at 13:00 Fluticasone Propionate (Flonase 0.05% Nasal) 1 spray BID NASAL Last administered on 09/07/18 08:57; Admin Dose 1 SPRAY; Start 08/28/18 at 21:00; Stop 08/26/19 at 22:00 Albuterol/ Ipratropium (Duoneb) 3 ml Q6HWA RESP THERAPY HHN Last administered on 09/07/18 07:42; Admin Dose 3 ML; Start 08/28/18 at 20:00 Albuterol/ Ipratropium (Duoneb) 3 ml Q2H RESP THERAPY PRN HHN shortness of br eath; Start 08/28/18 at 19:00 Loperamide HCl (Imodium Cap) 4 mg BID PO Last administered on 09/06/18 23:00; Admin Dose 4 MG; Start 08/31/18 at 21:00 Ferrous Sulfate (Ferrous Sulfate (Ec)) 325 mg BID PO Last administered on 09/06/18 23:00; Admin Dose 325 MG; Start 08/31/18 at 21:00 Loratadine (Claritin) 10 mg Q48H NGT Last administered on 09/06/18 08:30; Admin Dose 10 MG; Start 09/02/18 at 08:30; Stop 09/11/18 at 23:59 Insulin Glargine (Lantus) 20 units BID@0800,2000 SC Last administered on 09/07/18 08:47; Admin Dose 20 UNITS; Start 09/03/18 at 20:00 Midodrine (Proamatine) 10 mg ON DIALYSIS DAYS PO ; Start 08/02/18 at 18:00 Norepinephrine 250 ml @ 1.875 mls/ hr TITRATE IV ; Start 09/07/18 at 16:30; Status JO WONG MD Sep 07, 2018 18:03
[2018-09-07] MEDS ORDERED: NORepinephrine 8MG/250 ML (PMX 250 ML IV SCH (20:00)
[2018-09-08] VITALS (21 sets, daily range): BP systolic 41–91; BP diastolic 20–73; PULSE 0–122; RESP 19–30
[2018-09-08] MEDS: INSULIN ASPART [NOVOLOG] 3 ML PEN SC SCH (01:18)
[2018-09-08] MEDS: ACCU-CHEK XX SCH ×3 (01:19→05:00)
[2018-09-08] MEDS ORDERED: NORepinephrine 8MG/250 ML (PMX 250 ML IV SCH (01:30)
[2018-09-08] MEDS: PHENYLephrine 40 MG in DEXTROSE 5% 246 ML IV SCH ×2 (01:44→04:20)
[2018-09-08] MEDS ORDERED: VASOPRESSIN 60 UNIT in DEXTROSE 5% 57 ML IV SCH (04:00)
[2018-09-08] MEDS ORDERED: FUROSEMIDE 40 MG INJ IV ONE (04:00)
[2018-09-08] MEDS ORDERED: LEVALBUTEROL (NEB) 1.25 MG/0.5 ML AMP HHN PRN (04:00)
[2018-09-08] MEDS ORDERED: morphine 2 MG INJ IV STA (05:09)
--- NOTE | 2018-09-08 05:19 | EN ---
Date/Time of Note Date/Time of Note DATE: 09/08/18 TIME: 05:15 Event Note Medicine Medicine Event Note Event note Patient overnight was noted to be becoming more hypotensive. He required multiple vasopressor support with Robert-Synephrine levo fed and vasopressin with his blood pressure still ranging in the systolic of 60s. Patient also began to develop pulmonary congestion. Given his worsening condition and being unable to to likely tolerate dialysis given his hypotension I did speak to the over the phone. The and the daughters did come in to the bedside and I did discuss with him the patient's condition. They understood the gravity of the patient's condition and they did not want to escalate care any further. They at this time would like to make the patient comfortable and withdraw care. I would like to respect their wishes and I will change the patient to comfort measures only. We will discontinue all present medication and laboratory orders. I will put as needed morphine and Ativan and atropine sublingual drops. IVON WILSON Sep 08, 2018 05:19
[2018-09-08] MEDS ORDERED: LORAZEPAM 2 MG INJ IV PRN (05:30)
[2018-09-08] MEDS ORDERED: LORAZEPAM 2 MG INJ IV ONE (05:30)
[2018-09-08] MEDS ORDERED: ATROPINE SULFATE 1% 5ML SL PRN (05:30)
[2018-09-08] MEDS ORDERED: morphine 2 MG INJ IV PRN (05:30)
--- NOTE | 2018-09-08 06:09 | EN ---
Date/Time of Note Date/Time of Note DATE: 09/08/18 TIME: 06:07 Event Note Medicine Medicine Event Note Pronouncement note Patient seen and examined at the bedside. Patient not responsive to vigorous sternal rub. Patient nonresponsive to verbal commands. Pupils fixed and nonreactive to light bilaterally. No heart sounds appreciated on auscultation. Telemetry monitoring showing asystole. Patient pronounced at approximately 6:05 AM. Family present at the bedside. Primary team aware. IVON WILSON Sep 08, 2018 06:09
--- NOTE | 2018-09-08 08:55 | DES ---
Date/Time of Note Date/Time of Note DATE: 09/08/18 TIME: 08:55 Discharge/ Summary Admission/Discharge Info Admit Date/Time Aug 02, 2018 at 10:57 Date/Time 09/08/18 605am Final Diagnosis Cardiopulmonary arrest secondary to end stage renal disease Preliminary Cause of ESRD, Cardiomyopathy, failure to thrive Admit History Patient is a 76-year-old male with a history of hypertension, dyslipidemia, hypothyroidism, diabetes, esophagitis/duodenitis/gastritis, upper GI bleed as well as end-stage renal disease on dialysis. Patient presents with 2 weeks of progressive weakness and difficulty ambulating as well as hematochezia. Patient has been reporting loose stools for the past several weeks. In the ER CT abdomen was done which showed a large colonic mass at the splenic flexure. Patient was reportedly at [facility] several weeks ago, diagnosis at that time was unclear. Patient currently has no other acute complaints. Hospital Course Patient was admitted for workup of GI mass seen on imaging studies. GI was consulted and underwent colonoscopy for biopsy of masses. Nephrology was consulted for continuation of HD given patient had ESRD. 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 Oncology was consulted and recommended general surgery intervention for removal of both tumors. Cardiology consultation was placed for surgical clearance. 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 Other findings at the time of surgery include mild to moderate ascites, and fine, nodularity of the liver - cirrhosis?-, and inflammation extending from the transverse colon mesentery to the pancreas, which felt firm). Patient was transferred to ICU following surgery to continue on pressor support and underwent hemodialysis. Patient remained stable and diet was advanced but complicated by confusion and diminished PO intake. Patient was developing left arm swelling and imaging studies revealed right brachial DVT as well as thrombosis of the left cephalic vein. Vascular surgery was consulted and recommended anticoagulation when stable and no acute intervention at this time. Horacio cath was placed given inability to use HeRO access given occlusion. P atient improved and was transitioned out of ICU. Patients clinical course was further complicated by development of enterocutaneous fistula POD 9 and PO intake was held. Patient was started on TPN and ostomy was placed to monitor output. Patient developed worsening anemia and dark stool and anticoagulation was held. Patients mentation continued to decline and neurology consultation was placed who determine patient to have acute toxic encephalopathy. Patient was evaluated daily by speech therapy and given worsening in mentation and overall strength was made NPO. Patients anasarca worsen and hemodialysis became challenging given hypotension. Patient was transferred to ICU for pressor support then transitioned back to telemetry floor. Goals of care continued to be discussed with family and they wanted to continue to monitor for improvement in fistula. Patients condition continued to declined and he was transferred to ICU for pressor support which was unsuccessful. Discussion was held with the family and patient was transitioned to comfort care. he on 09/08/18 at 0605. Pending Labs/Cultures Laboratory Tests Test 09/07/18 12:58 09/07/18 16:47 09/07/18 22:21 09/08/18 01:14 Bedside 188 154 176 221 Glucose mg/dL (70-220) mg/dL (70-220) mg/dL (70-220) mg/dL (70-220) Test 09/08/18 04:16 Sodium Level 136 mmol/L (135-144 ) Potassium 3.8 Level mmol/L (3.5-5.1 ) Chloride Level 100 mmol/L (97-110) Carbon Dioxide 17 Level mmol/L (21-31) Anion Gap 19 (5-13) Blood Urea 92 mg/dl (7-20) Nitrogen Creatinine 5.67 mg/dl (0.61-1.2 4) Est Glomerular mL/min (>60) Filtrat Rate mL/min Glucose Level 289 mg/dl (70-220) Calcium Level 10.2 mg/dl (8.4-10.2 ) Phosphorus 5.3 Level mg/dl (2.5-4.9) Magnesium 1.8 Level mg/dl (1.7-2.5) JO HURST MD Sep 08, 2018 08:55
== END 2018-09-08 06:05 | disposition expired | DRG 329 ==
LOC: E/R 06:31 → TEL 10:57 → ICU 08-14 22:20 → MS1 08-19 15:34 → ICU 09-01 09:38 → TEL 09-03 18:20 → ICU 09-07 20:03
PROVIDERS: ADMIT Internal Medicine; ATTEND Internal Medicine
PROC: 5A1D70Z Performance of Urinary Filtration, Intermittent, Less than 6 Hours Per Day (ICD-10-PCS; 2018-08-04)
PROC: 0DB68ZX Excision of Stomach, Via Natural or Artificial Opening Endoscopic, Diagnostic (ICD-10-PCS; 2018-08-06)
PROC: 0DB98ZX Excision of Duodenum, Via Natural or Artificial Opening Endoscopic, Diagnostic (ICD-10-PCS; 2018-08-06)
PROC: 0DBK8ZX Excision of Ascending Colon, Via Natural or Artificial Opening Endoscopic, Diagnostic (ICD-10-PCS; 2018-08-06)
PROC: 0DBL8ZX Excision of Transverse Colon, Via Natural or Artificial Opening Endoscopic, Diagnostic (ICD-10-PCS; 2018-08-06)
PROC: 0DTL0ZZ Resection of Transverse Colon, Open Approach (ICD-10-PCS; 2018-08-14)
PROC: 0DBM0ZZ Excision of Descending Colon, Open Approach (ICD-10-PCS; 2018-08-14)
PROC: 0DBN0ZZ Excision of Sigmoid Colon, Open Approach (ICD-10-PCS; 2018-08-14)
PROC: 0DBV0ZX Excision of Mesentery, Open Approach, Diagnostic (ICD-10-PCS; 2018-08-14)
PROC: 0DBA0ZZ Excision of Jejunum, Open Approach (ICD-10-PCS; 2018-08-14)
PROC: 0DTF0ZZ Resection of Right Large Intestine, Open Approach (ICD-10-PCS; principal; 2018-08-14 17:00)
PROC: 0JHN3XZ Insertion of Tunneled Vascular Access Device into Right Lower Leg Subcutaneous Tissue and Fascia, Percutaneous Approach (ICD-10-PCS; 2018-08-16)
PROC: 02H633Z Insertion of Infusion Device into Right Atrium, Percutaneous Approach (ICD-10-PCS; 2018-08-16)
DX: C18.2 Malignant neoplasm of ascending colon (principal); N18.6 End stage renal disease; G92 Toxic encephalopathy; I50.23 Acute on chronic systolic (congestive) heart failure; C49.A4 Gastrointestinal stromal tumor of large intestine; K92.1 Melena; I42.9 Cardiomyopathy, unspecified; R18.8 Other ascites; I82.621 Acute embolism and thrombosis of deep veins of right upper extremity; I13.2 Hypertensive heart and chronic kidney disease with heart failure and with stage 5 chronic kidney disease, or end stage renal disease; I82.612 Acute embolism and thrombosis of superficial veins of left upper extremity; C78.4 Secondary malignant neoplasm of small intestine; T82.868A Thrombosis due to vascular prosthetic devices, implants and grafts, initial encounter; K63.2 Fistula of intestine; R57.9 Shock, unspecified; K20.9 Esophagitis, unspecified; E03.9 Hypothyroidism, unspecified; E78.5 Hyperlipidemia, unspecified; E11.22 Type 2 diabetes mellitus with diabetic chronic kidney disease; K74.60 Unspecified cirrhosis of liver; E11.649 Type 2 diabetes mellitus with hypoglycemia without coma; D50.0 Iron deficiency anemia secondary to blood loss (chronic); D63.1 Anemia in chronic kidney disease; D73.5 Infarction of spleen; I95.9 Hypotension, unspecified; K29.70 Gastritis, unspecified, without bleeding; K29.80 Duodenitis without bleeding; E87.5 Hyperkalemia; I27.20 Pulmonary hypertension, unspecified; J32.8 Other chronic sinusitis; R62.7 Adult failure to thrive; Y83.2 Surgical operation with anastomosis, bypass or graft as the cause of abnormal reaction of the patient, or of later complication, without mention of misadventure at the time of the procedure; Z99.2 Dependence on renal dialysis; Z68.25 Body mass index [BMI] 25.0-25.9, adult; Z95.0 Presence of cardiac pacemaker
CPT/HCPCS: 36430; 36600; 70450; 71045; 74018; 74177; 76937; 78278; 80048; 80051; 80053; 80069; 80202; 82140; 82150; 82270; 82378; 82607; 82803; 82947; 82962; 83036; 83540; 83690; 83735; 84100; 84132; 84134; 84439; 84443; 84478; 84484; 84560; 85014; 85018; 85025; 85045; 85049; 85610; 85670; 85730; 86706; 86850; 86900; 86901; 86920; 87040; 87045; 87081; 87340; 88305; 88307; 88312; 88341; 88342; 90935; 92526; 92610; 93005; 93306; 93931; 93970; 93971; 94640; 96361; 96374; 97110; 97116; 97162; 97164; 97165; 97530; 97535; A9560; J0131; J0690; J1100; J1644; J1815; J1885; J1940; J1956; J2060; J2250; J2270; J2370; J2405; J2543; J2795; J2916; J3010; J3370; J3475; J7040; J7042; J7050; J7070; P9016; P9047; Q9967